=== PATIENT | female | born 1960 | race Two or more races ===

== ENCOUNTER → 2019-12-16 15:57 | Outpatient (BNVA) | payer MEDICAID, SELFPAY | PROVIDERS: PCP Internal Medicine; Referring Provider Internal Medicine; Visit Provider Internal Medicine | DX: J44.9 Chronic obstructive pulmonary disease, unspecified (principal); Z86.69 Personal history of other diseases of the nervous system and sense organs | CPT/HCPCS: 99213 ==

== ENCOUNTER 2019-12-22 | Outpatient (REF) | payer MEDICAID, SELFPAY ==
[2019-12-08 12:32] VITALS: BP 113/75; PULSE 86; RESP 20; O2SAT 97; BMI 28.1
--- NOTE | 2019-12-08 12:43 | P.CONAN_ITS ---
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 SOY (obstructive sleep apnea) SOY (obstructive sleep apnea) Osteoarthritis Rheumatoid arthritis Sicca syndrome Sjogrens syndrome Sleep apnea Surgical History Surgical History History of bladder suspension procedure History of esophagogastroduodenoscopy (EGD) History of laryngoscopy History of repair of left rotator cuff Hx of colonoscopy Hx of dilation and curettage Hx of hemorrhoidectomy Hx of tubal ligation Social History Social History Smoking Status: Never smoker Second Hand Smoke Exposure: No Narrative Narrative: no recent illness activity limited to pain, no CP/SOB at rest Meds Allergies Allergy/AdvReac Type Severity Reaction Status Date / Time codeine [Codeine] Allergy Mild BURNING IN Verified 12/16/19 16:06 CHEST, chest pain sulfamethoxazole Allergy Mild ITCH,RASH Verified 12/16/19 16:06 [From Bactrim] Home Medications Medication Instructions Recorded Confirmed Type albuterol sulfate 2.5 mg INHALATION QID PRN 12/08/19 12/28/19 History amitriptyline 10 mg PO BEDTIME 12/08/19 12/28/19 History aspirin [Aspir-81] 81 mg PO DAILY 12/08/19 12/28/19 History calcium 600 mg PO 12/08/19 12/28/19 History cetirizine 10 mg PO DAILY 12/08/19 12/28/19 History cholecalciferol (vitamin D3) 50 mcg PO DAILY 12/08/19 12/28/19 History clonidine HCl 0.1 mg PO BID 12/08/19 12/28/19 History dexamethasone 1 mg PO DAILY 12/08/19 12/28/19 History diltiazem HCl 360 mg PO DAILY 12/08/19 12/28/19 History diphenhydramine HCl [Banophen] 25 mg PO BEDTIME PRN 12/08/19 12/28/19 History docusate sodium [DOK] 100 mg PO DAILY 12/08/19 12/28/19 History duloxetine 20 mg PO BID 12/08/19 12/28/19 History fluticasone propionate [Flovent 1 puff INHALATION BID 12/08/19 12/28/19 History HFA] folic acid 1 mg PO DAILY 12/08/19 12/28/19 History furosemide 20 mg PO DAILY 12/08/19 12/28/19 History lisinopril 20 mg PO DAILY 12/08/19 12/28/19 History melatonin 5 mg PO BEDTIME PRN 12/08/19 12/28/19 History methotrexate sodium [Methotrexate 25 mg PO QWEEK 12/08/19 12/28/19 History (Anti-Rheumatic)] saliva substitute combo no.9 15 ml MUCOUS MEMBRANE 5XD PRN 12/08/19 12/28/19 History [Biotene Dry Mouth Oral Rinse] sennosides [senna] 8.6 mg PO BID 12/08/19 12/28/19 History Exam Exam Date and Time: December 08, 2019 1243 Height,Weight and Vital Signs: Height 5 ft 1 in Weight 67.585 kg Last Vital Signs Pulse 86 12/08/19 12:32 Resp 20 12/08/19 12:32 BP 113/75 12/08/19 12:32 Pulse Ox 97 12/08/19 12:32 Pertinent Lab Results Pertinent Lab Results: EKG 12/01/19: SR@74, horizontal axis MIBI 04/2018: likely nml perfusion, gated EF 70%, no trans ischemic dilation CBC/CMP/PT/INR 12/01/19: WNL Airway Mallampati Class: I TM Dist: >3cm Neck ROM: Full Loose/Missing/Broken Teeth: No Heart: rrr Lungs: dim upper lobes, lower ctab Assessment and Plan Assessment Anesthesia Assessment: Anesthesia Plan Discussed and PAT Visit (Pt declined reception interviewer. Verbalized understanding. )
[2019-12-08 15:11] LABS: Estimated Average Glucose 117 mg/dL; Hemoglobin A1c % 5.7 %
[2019-12-08 15:20] LABS: MRSA Nasal PCR NEGATIVE (Negative); SA Nasal PCR NEGATIVE (Negative)
== END 2019-12-22 00:01 ==
LOC: HO.LAB
PROVIDERS: Nurse Practitioner; PCP Internal Medicine; Visit Provider Orthopaedic Surgery
DX: M17.11 Unilateral primary osteoarthritis, right knee (principal)
CPT/HCPCS: 83036; 87640; 87641

== ENCOUNTER → 2019-12-28 12:05 | Outpatient (BNVA) | payer MEDICAID, SELFPAY | PROVIDERS: PCP Internal Medicine; Visit Provider Internal Medicine Endocrinology, Diabetes & Metabolism | DX: E11.9 Type 2 diabetes mellitus without complications (principal); I10 Essential (primary) hypertension; E78.00 Pure hypercholesterolemia, unspecified | CPT/HCPCS: 82947; 99214 ==

== ENCOUNTER 2020-01-20 16:40 | Emergency (ER) | payer MEDICAID, SELFPAY ==
[2020-01-20 16:48] VITALS: BP 147/86; PULSE 74; RESP 16; TEMP 36.4; O2SAT 99; BMI 27.8
--- NOTE | 2020-01-20 19:13 | ED.EYEPROB ---
HPI - Eye Problem General Chief complaint: Eye Problems Stated complaint: eye swelling Time Seen by Provider: 01/20/20 19:13 Source: patient Mode of arrival: ambulatory Limitations: no limitations History of Present Illness HPI Narrative: left upper lid swelling and redness for past 2 days Onset description: gradual Location: left eye Eye Symptoms: redness Severity: mild Treatments Prior to Arrival: none Related Data Patient tetanus UTD: Yes Home Medications Medication Instructions Recorded Confirmed albuterol sulfate 2.5 mg INHALATION QID PRN 12/08/19 12/28/19 amitriptyline 10 mg PO BEDTIME 12/08/19 12/28/19 aspirin [Aspir-81] 81 mg PO DAILY 12/08/19 12/28/19 calcium 600 mg PO 12/08/19 12/28/19 cetirizine 10 mg PO DAILY 12/08/19 12/28/19 cholecalciferol (vitamin D3) 50 mcg PO DAILY 12/08/19 12/28/19 clonidine HCl 0.1 mg PO BID 12/08/19 12/28/19 dexamethasone 1 mg PO DAILY 12/08/19 12/28/19 diltiazem HCl 360 mg PO DAILY 12/08/19 12/28/19 diphenhydramine HCl [Banophen] 25 mg PO BEDTIME PRN 12/08/19 12/28/19 docusate sodium [DOK] 100 mg PO DAILY 12/08/19 12/28/19 duloxetine 20 mg PO BID 12/08/19 12/28/19 fluticasone propionate [Flovent 1 puff INHALATION BID 12/08/19 12/28/19 HFA] folic acid 1 mg PO DAILY 12/08/19 12/28/19 furosemide 20 mg PO DAILY 12/08/19 12/28/19 lisinopril 20 mg PO DAILY 12/08/19 12/28/19 melatonin 5 mg PO BEDTIME PRN 12/08/19 12/28/19 methotrexate sodium [Methotrexate 25 mg PO QWEEK 12/08/19 12/28/19 (Anti-Rheumatic)] saliva substitute combo no.9 15 ml MUCOUS MEMBRANE 5XD PRN 12/08/19 12/28/19 [Biotene Dry Mouth Oral Rinse] sennosides [senna] 8.6 mg PO BID 12/08/19 12/28/19 Previous Rx's Medication Instructions Recorded atorvastatin 10 mg tablet 10 mg PO BEDTIME 90 Days #90 tab 12/28/19 dulaglutide 0.75 mg/0.5 mL 0.75 mg SUBCUT QWEEK 90 Days #6.5 12/28/19 subcutaneous pen injector ml doxycycline monohydrate 100 mg PO BID 7 Days #14 cap 01/20/20 erythromycin 1 applic OPHTHALMIC-LEFT TID #3.5 g 01/20/20 Allergies Allergy/AdvReac Type Severity Reaction Status Date / Time codeine [Codeine] Allergy Mild BURNING IN Verified 12/16/19 16:06 CHEST, chest pain sulfamethoxazole Allergy Mild ITCH,RASH Verified 12/16/19 16:06 [From Bactrim] Review of Systems Review of Systems: Constitutional: No Weight loss, No Fever, No Chills, No Night Sweats, No Fatigue, No Malaise ENT/Mouth: No Hearing loss, No Ear Pain, No Nasal Congestion, No Sinus Pain, No Hoarseness, No sore throat, No Rhinorrhea, No Swallowing Difficulty Eyes: No Eye Pain, + left swelling, No Redness, No Foreign Body, No Discharge, No Vision Changes Cardiovascular: No Chest Pain, No SOB, No Dyspnea on Exertion Respiratory: No Cough, No Sputum, No Wheezing Gastrointestinal: No Nausea, No Vomiting, No Diarrhea Genitourinary: no irregular bleeding, No Dysuria, No Urinary Frequency, No Hematuria Musculoskeletal: No joint pain, No Myalgias, No Joint Swelling Skin: No Skin Lesions, No rash Neuro: No Weakness, No Numbness, No Paresthesias Psych: No Anxiety/Panic, No Depression Heme/Lymph: No Bruising, No Bleeding,No Lymphadenopathy Endocrine: No Polyuria, No Polydipsia, No Temperature Intolerance Yes all other systems are reviewed and are negative [facility] Past Medical History Attestation statement: The following information was validated with the patient. 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 SOY (obstructive sleep apnea) SOY (obstructive sleep apnea) Osteoarthritis Rheumatoid arthritis Sicca syndrome Sjogrens syndrome Sleep apnea Surgical History History of bladder suspension procedure History of esophagogastroduodenoscopy (EGD) History of laryngoscopy History of repair of left rotator cuff Hx of colonoscopy Hx of dilation and curettage Hx of hemorrhoidectomy Hx of tubal ligation Social History Social History Alcohol intake: never Smoking Status: Never smoker Smoked in Last 30 Days: No Second Hand Smoke Exposure: No Use of substances other than those prescribed or required for medical reasons: No Advance Directives: No Advance Directives Information Provided: Yes Physical Exam Vital Signs: Vital Signs: Last Vital Signs Temp 97.6 F 01/20/20 16:48 Pulse 74 01/20/20 16:48 Resp 16 01/20/20 16:48 BP 147/86 H 01/20/20 16:48 Pulse Ox 99 01/20/20 16:48 Body Mass Index 27.8 Reviewed Const: General: cooperative, healthy appearing, comfortable, no acute distress, well developed, alert and awake HENMT: Head: Yes normal to inspection Ears: hearing grossly normal bilaterally Eyes: General: appearance normal, both eyes and all related structures Visual Plaza: normal visual plaza by confrontation Eyelids: Yes eyelid abnormality ( left upper lid with small external stye with erythema over the lid line) Conjunctivae: conjunctivae normal Sclerae: sclerae normal Corneas: corneas normal Resp: Effort & Inspection: normal respiratory effort, no audible wheezes, no cough and no respiratory distress Cardio: Palpation: normal PMI Rate: regular rate Neuro: General: normal sensation to monofilament Extrem: General: No cyanosis Psych: Appearance: grossly normal and well kempt Discharge Plan Discharge Clinical Impression: External hordeolum Qualifiers: Laterality: left Eyelid: upper Qualified Code(s): H00.014 - Hordeolum externum left upper eyelid Patient Disposition: Home, Self-Care Additional Instructions: warm compresses Take medication prescribed Return if any concerns or worsening symptoms otherwise follow up with primary care doctor in 3-7 days for recheck Thank you Prescriptions: New doxycycline monohydrate 100 mg capsule 100 mg PO BID 7 Days Qty: 14 RF: 0 erythromycin 5 mg/gram (0.5 %) ointment 1 applic ophthalmic-Left TID Qty: 3.5 RF: 1 No Action calcium 600 mg Capsule 600 mg PO RF: 0 albuterol sulfate 2.5 mg /3 mL (0.083 %) Solution For Nebulization 2.5 mg INHALATION QID PRN (Reason: Wheezing) RF: 0 diltiazem HCl 360 mg Capsule,Extended Release 24 Hr 360 mg PO DAILY RF: 0 aspirin [Aspir-81] 81 mg Tablet,Delayed Release (Dr/Ec) 81 mg PO DAILY RF: 0 amitriptyline 10 mg Tablet 10 mg PO BEDTIME RF: 0 Flovent HFA 110 mcg/actuation Hfa Aerosol Inhaler 1 puff INHALATION BID RF: 0 cholecalciferol (vitamin D3) 50 mcg (2,000 unit) Capsule 50 mcg PO DAILY RF: 0 Biotene Dry Mouth Oral Rinse Mouthwash 15 ml MUCOUS MEMBRANE 5XD PRN (Reason: Dry Mouth) RF: 0 clonidine HCl 0.1 mg Tablet 0.1 mg PO BID RF: 0 cetirizine 10 mg Tablet 10 mg PO DAILY RF: 0 lisinopril 20 mg Tablet 20 mg PO DAILY RF: 0 folic acid 1 mg Tablet 1 mg PO DAILY RF: 0 methotrexate sodium [Methotrexate (Anti-Rheumatic)] 2.5 mg Tablet 25 mg PO QWEEK RF: 0 dexamethasone 1 mg Tablet 1 mg PO DAILY RF: 0 sennosides [senna] 8.6 mg Tablet 8.6 mg PO BID RF: 0 diphenhydramine HCl [Banophen] 25 mg Tablet 25 mg PO BEDTIME PRN (Reason: Sleep) RF: 0 docusate sodium [DOK] 100 mg Capsule 100 mg PO DAILY RF: 0 furosemide 20 mg Tablet 20 mg PO DAILY RF: 0 duloxetine 20 mg Capsule,Delayed Release(Dr/Ec) 20 mg PO BID RF: 0 melatonin 5 mg Tablet 5 mg PO BEDTIME PRN (Reason: Sleep) RF: 0 atorvastatin 10 mg tablet 10 mg PO BEDTIME 90 Days Qty: 90 RF: 1 Trulicity 0.75 mg/0.5 mL pen injector 0.75 mg SUBCUT QWEEK 90 Days Qty: 6.5 RF: 1 Referrals: [facility] [Primary Care Provider] - 5 days
== END 2020-01-20 20:00 | disposition home or self-care (01) ==
PROVIDERS: Emergency Provider Emergency Medicine
DX: H00.014 Hordeolum externum left upper eyelid (principal); Z79.899 Other long term (current) drug therapy
CPT/HCPCS: 99283; 99284

== ENCOUNTER → 2020-02-11 12:31 | Outpatient (BNVA) | payer MEDICAID, SELFPAY | PROVIDERS: PCP Internal Medicine; Referring Provider Internal Medicine; Visit Provider Student in an Organized Health Care Education/Training Program | DX: Z76.89 Persons encountering health services in other specified circumstances (principal) ==

== ENCOUNTER 2020-03-08 13:14 | Outpatient (REF) | payer MEDICAID, SELFPAY ==
[2020-03-08 14:15] LABS: MANUAL DIFF FLAG NO
[2020-03-08 14:20] LABS: Basophils Percent Auto 0.4 % (0-2); Eosinophils Absolute Auto 0.2 X10*3/uL (0.0-0.4); Eosinophils Percent Auto 3.2 % (0-4); Hematocrit 35.1 % (37-47); Hemoglobin 11.8 g/dl (12.0-16.0); Imm Gran Abs Auto 0.02 X10*3/uL (0.00-0.03); Imm Gran Pct Auto 0.3 % (0.0-0.4); Lymphocytes Absolute Auto 2.2 X10*3/uL (1.2-4.9); Lymphocytes Percent Auto 29.1 % (20-40); Mean Corpuscular HGB Conc 33.6 g/dl (31.0-35.0); Mean Corpuscular Hemoglobin 29.6 pg (27.0-33.0); Mean Corpuscular Volume 88.2 fL (80-98); Mean Platelet Volume 9.7 fL (9.4-12.3); Monocytes Absolute Auto 0.9 X10*3/uL (0.1-1.2); Monocytes Percent Auto 12.5 % (2-11); Neutrophils Absolute Auto 4.1 X10*3/uL (2.0-8.3); Neutrophils Percent Auto 54.5 % (45-73); Platelet Count 316 X10*3/uL (160-400); Red Blood Count 3.98 X10*6/uL (4.20-5.50); White Blood Count 7.4 X10*3/uL (4.8-10.8)
[2020-03-08 14:23] LABS: Glucose Urine UA NEG (NEG); Leukocyte Esterase Urine TRACE (NEG); Nitrite Urine NEG (NEG); PH 5.5 (5.0-8.0); Specific Gravity - Urine >= 1.030 (1.005-1.025); Urine Blood NEG (NEG); Urine Ketones NEG (NEG); Urine Protein NEG (NEG-TRACE)
[2020-03-08 14:25] LABS: Appearance Urine CLEAR; Color Urine YELLOW
[2020-03-08 14:38] LABS: Mucus Urine 1+ /LPF; RBC Urine 0-2 /HPF (0); Squamous Epithelial Cell Urine 1+ /LPF
[2020-03-08 14:49] LABS: Alanine Aminotransferase 13 U/L (0-31); Albumin Level 4.2 g/dL (3.5-5.0); Alkaline Phosphatase 127 U/L (39-117); Anion Gap 17 (12-20); Aspartate Amino Transferase 19 U/L (5-31); Bilirubin Total 0.3 mg/dL (0.0-1.0); Blood Urea Nitrogen 22 mg/dL (9-16); Calcium 9.7 mg/dL (8.4-10.2); Carbon Dioxide 25 mmol/L (22-29); Chloride 103 mmol/L (96-108); Cholesterol 137 mg/dL; Creatinine Urine 122.61 mg/dL; Estimated Glomerular Filt Rate > 60; Glucose Fasting 103 mg/dL (60-99); HDL Cholesterol 36 mg/dL; LDL Cholesterol Calculated 61 mg/dl; Microalbum/Creatinine Ratio Ur 7.3 ug/mg cr; Potassium 3.8 mmol/l (3.3-5.1); Sodium 141 mmol/L (135-145); Total Protein 7.7 g/dL (6.5-8.0); Triglycerides 203 mg/dL
[2020-03-08 14:50] LABS: Alanine Aminotransferase 13 U/L (0-31); Alkaline Phosphatase 118 U/L (39-117); Anion Gap 17 (12-20); Aspartate Amino Transferase 18 U/L (5-31); Bilirubin Total 0.3 mg/dL (0.0-1.0); Blood Urea Nitrogen 22 mg/dL (9-16); C Reactive Protein 0.54 mg/dL (< or = 0.50); Calcium 9.6 mg/dL (8.4-10.2); Carbon Dioxide 25 mmol/L (22-29); Chloride 103 mmol/L (96-108); Estimated Glomerular Filt Rate > 60; Glucose Random 101 mg/dL (60-115); Potassium 3.9 mmol/l (3.3-5.1); Sodium 141 mmol/L (135-145); Total Protein 7.3 g/dL (6.5-8.0)
[2020-03-08 15:14] LABS: Vitamin B12 298 pg/mL (200-900)
[2020-03-08 15:16] LABS: Erythrocyte Sedimentation Rate 42 MM/HR (0-20)
[2020-03-09 11:07] LABS: LDL Cholesterol Direct 64 mg/dL (<100)
[2020-03-09 13:32] LABS: Complement C3 67 mg/dL (83-193)
[2020-03-10 12:58] LABS: Anti DNA DS Antibody <1 IU/mL
[2020-03-15 21:22] LABS: Fructosamine 234 umol/L (205-285)
== END 2020-03-08 13:15 | disposition home or self-care (01) ==
LOC: HO.LAB 13:14
PROVIDERS: Internal Medicine Endocrinology, Diabetes & Metabolism; PCP Internal Medicine; Visit Provider Student in an Organized Health Care Education/Training Program
DX: M05.9 Rheumatoid arthritis with rheumatoid factor, unspecified (principal); E11.9 Type 2 diabetes mellitus without complications
CPT/HCPCS: 36415; 80053; 80061; 81001; 82043; 82607; 82985; 83721; 85025; 85652; 86140; 86160; 86225

== ENCOUNTER 2020-03-23 10:27 | Outpatient (REF) | payer MEDICAID, SELFPAY ==
[2020-03-23 11:40] LABS: Glucose Urine UA 100 MG/DL (NEG); Leukocyte Esterase Urine NEG (NEG); Nitrite Urine NEG (NEG); Specific Gravity - Urine >= 1.030 (1.005-1.025); Urine Blood NEG (NEG); Urine Ketones NEG (NEG); Urine Protein NEG (NEG-TRACE)
[2020-03-23 11:42] LABS: Appearance Urine CLEAR; Color Urine YELLOW
[2020-03-23 11:59] LABS: Mucus Urine 2+ /LPF; Squamous Epithelial Cell Urine 1+ /LPF
[2020-03-23 12:17] LABS: Alanine Aminotransferase 10 U/L (0-31); Albumin Level 4.2 g/dL (3.5-5.0); Alkaline Phosphatase 132 U/L (39-117); Anion Gap 12 (12-20); Aspartate Amino Transferase 13 U/L (5-31); Bilirubin Total 0.3 mg/dL (0.0-1.0); Blood Urea Nitrogen 17 mg/dL (9-16); Calcium 9.4 mg/dL (8.4-10.2); Carbon Dioxide 28 mmol/L (22-29); Chloride 106 mmol/L (96-108); Cholesterol 141 mg/dL; Estimated Glomerular Filt Rate > 60; Glucose Fasting 82 mg/dL (60-99); HDL Cholesterol 53 mg/dL; LDL Cholesterol Calculated 64 mg/dl; Potassium 3.5 mmol/l (3.3-5.1); Sodium 142 mmol/L (135-145); Total Protein 7.5 g/dL (6.5-8.0); Triglycerides 122 mg/dL
[2020-03-23 12:17] LABS: Creatinine Urine 150.87 mg/dL; Microalbum/Creatinine Ratio Ur 11.2 ug/mg cr
[2020-03-23 12:37] LABS: Vitamin B12 314 pg/mL (200-900)
[2020-03-24 09:05] LABS: HBc Num1 0.06 S/CO (0.00-0.79); HBsAGNum1 0.21 S/CO (0.00-0.99); Hepatitis A Antibody IgM 0.77 Index (0-0.79); Hepatitis B Core Antibody Nonreactive (Nonreactive); Hepatitis B Surface Antigen Negative (Negative); ~HepC Num1 0.11 S/CO (0.00-0.79); ~Hepatitis A Antibody IgM Nonreactive (Nonreactive); ~Hepatitis B Surface Antibody NONREACTIVE (Nonreactive); ~Hepatitis C Antibody Nonreactive (Nonreactive)
[2020-03-24 11:02] LABS: LDL Cholesterol Direct 69 mg/dL (<100)
[2020-03-27 21:32] LABS: TS Negative Control Passed; TS Panel A 1; TS Panel B 1; TS Positive Control Passed; TSpotTB Negative (SeeBelow)
[2020-03-29 22:12] LABS: Fructosamine 254 umol/L (205-285)
== END 2020-03-23 10:28 | disposition home or self-care (01) ==
LOC: HO.LAB 10:27
PROVIDERS: Absent Provider Student in an Organized Health Care Education/Training Program; PCP Internal Medicine; Visit Provider Internal Medicine Endocrinology, Diabetes & Metabolism
DX: M05.9 Rheumatoid arthritis with rheumatoid factor, unspecified (principal); E11.9 Type 2 diabetes mellitus without complications
CPT/HCPCS: 36415; 80053; 80061; 81001; 82043; 82607; 82985; 83721; 86481; 86704; 86706; 86709; 86803; 87340

== ENCOUNTER → 2020-03-28 12:15 | Outpatient (BNVA) | payer MEDICAID, SELFPAY | PROVIDERS: PCP Internal Medicine; Visit Provider Internal Medicine Endocrinology, Diabetes & Metabolism | DX: E11.9 Type 2 diabetes mellitus without complications (principal); I10 Essential (primary) hypertension; E78.00 Pure hypercholesterolemia, unspecified | CPT/HCPCS: 82947; 99212 ==

== ENCOUNTER → 2020-04-11 11:32 | Outpatient (BNVA) | payer MEDICAID, SELFPAY | PROVIDERS: PCP Internal Medicine; Visit Provider Internal Medicine Endocrinology, Diabetes & Metabolism | DX: E11.9 Type 2 diabetes mellitus without complications (principal); I10 Essential (primary) hypertension; E78.00 Pure hypercholesterolemia, unspecified | CPT/HCPCS: 82947; 99212 ==

== ENCOUNTER 2020-05-12 12:16 | Outpatient (REF) | payer MEDICAID, SELFPAY ==
--- NOTE | ~2020-05-12 | XR_ITS ---
EXAMINATION: XR ANKLE, RIGHT CLINICAL INFORMATION: Ankle sprain COMPARISON: None TECHNIQUE: AP, lateral, and mortise views of the right ankle. FINDINGS: There is no fracture or dislocation. The ankle mortise is congruent. No ankle joint effusion. There is lateral soft tissue swelling. Small heel spurs noted. XR/XR ankle RT 2V IMPRESSION: Lateral soft tissue swelling. No acute fracture or malalignment.
[2020-05-12 13:36] LABS: MANUAL DIFF FLAG NO
[2020-05-12 13:41] LABS: Basophils Percent Auto 0.4 % (0-2); Eosinophils Absolute Auto 0.3 X10*3/uL (0.0-0.4); Eosinophils Percent Auto 4.1 % (0-4); Hematocrit 37.5 % (37-47); Hemoglobin 12.7 g/dl (12.0-16.0); Imm Gran Abs Auto 0.01 X10*3/uL (0.00-0.03); Imm Gran Pct Auto 0.1 % (0.0-0.4); Lymphocytes Absolute Auto 2.8 X10*3/uL (1.2-4.9); Mean Corpuscular HGB Conc 33.9 g/dl (31.0-35.0); Mean Corpuscular Hemoglobin 29.3 pg (27.0-33.0); Mean Corpuscular Volume 86.6 fL (80-98); Mean Platelet Volume 9.7 fL (9.4-12.3); Monocytes Absolute Auto 0.8 X10*3/uL (0.1-1.2); Monocytes Percent Auto 11.3 % (2-11); Neutrophils Absolute Auto 3.4 X10*3/uL (2.0-8.3); Neutrophils Percent Auto 46.1 % (45-73); Platelet Count 283 X10*3/uL (160-400); Red Blood Count 4.33 X10*6/uL (4.20-5.50); Red Cell Distribution Width 12.6 % (11.0-16.0); White Blood Count 7.4 X10*3/uL (4.8-10.8)
[2020-05-12 14:05] LABS: Alanine Aminotransferase 9 U/L (0-31); Albumin Level 4.2 g/dL (3.5-5.0); Alkaline Phosphatase 150 U/L (39-117); Anion Gap 13 (12-20); Aspartate Amino Transferase 16 U/L (5-31); Bilirubin Total 0.3 mg/dL (0.0-1.0); Blood Urea Nitrogen 18 mg/dL (9-16); C Reactive Protein 0.28 mg/dL (< or = 0.50); Calcium 10.2 mg/dL (8.4-10.2); Carbon Dioxide 28 mmol/L (22-29); Chloride 104 mmol/L (96-108); Estimated Glomerular Filt Rate > 60; Glucose Random 125 mg/dL (60-115); Potassium 3.7 mmol/L (3.3-5.1); Sodium 141 mmol/L (135-145); Total Protein 7.3 g/dL (6.5-8.0)
[2020-05-12 14:36] LABS: Erythrocyte Sedimentation Rate 29 MM/HR (0-20)
== END 2020-05-12 12:17 | disposition home or self-care (01) ==
LOC: HO.LAB 12:16
PROVIDERS: PCP Radiology Diagnostic Radiology; Visit Provider Student in an Organized Health Care Education/Training Program
DX: S93.401A Sprain of unspecified ligament of right ankle, initial encounter (principal); M05.9 Rheumatoid arthritis with rheumatoid factor, unspecified; M35.00 Sjogren syndrome, unspecified; M65.332 Trigger finger, left middle finger; M65.342 Trigger finger, left ring finger; Z79.899 Other long term (current) drug therapy
CPT/HCPCS: 20550; 36415; 73600; 80053; 85025; 85652; 86140; 99212

== ENCOUNTER 2020-07-21 14:13 | Outpatient (REF) | payer MEDICAID, SELFPAY ==
--- NOTE | ~2020-07-21 | MM_ITS ---
EXAMINATION: MM SCREENING DIGITAL BREAST TOMOSYNTHESIS, BILATERAL CLINICAL INFORMATION: Screening. Asymptomatic. The lifetime risk of breast cancer based on the Tyrer-Cuzick Model is 5%. COMPARISON: Mammography: 03/24/2019, 09/09/2018, 03/17/2018, 02/08/2017 TECHNIQUE: Digital breast tomosynthesis is performed in both the craniocaudal and mediolateral oblique views along with computer-aided detection (CAD). Synthesized 2D images are generated from the tomosynthesis. FINDINGS: There are scattered areas of fibroglandular density (ACR BI-RADS breast composition Category b). There are no significant masses, abnormal calcifications, or other abnormalities. Parenchymal pattern is similar to prior exams. MM/MM tomosynthesis screening BI IMPRESSION: No mammographic evidence of malignancy. ASSESSMENT: BI-RADS 1: Negative RECOMMENDATION: Routine annual mammography screening. This patient's information was entered into a reminder system with a target due date for their next mammogram.
== END 2020-07-21 14:14 | disposition home or self-care (01) ==
LOC: HO.MAMMO 14:13
PROVIDERS: Visit Provider Internal Medicine
DX: Z12.31 Encounter for screening mammogram for malignant neoplasm of breast (principal)
CPT/HCPCS: 77063; 77067

== ENCOUNTER → 2020-08-11 12:22 | Outpatient (BNVA) | payer MEDICAID, SELFPAY | PROVIDERS: PCP Internal Medicine; Visit Provider Student in an Organized Health Care Education/Training Program | DX: M05.9 Rheumatoid arthritis with rheumatoid factor, unspecified (principal); M35.00 Sjogren syndrome, unspecified; Z79.899 Other long term (current) drug therapy | CPT/HCPCS: 99212 ==

== ENCOUNTER 2020-08-24 13:31 | Outpatient (REF) | payer MEDICAID, SELFPAY ==
[2020-08-24 15:05] LABS: MANUAL DIFF FLAG NO
[2020-08-24 15:09] LABS: Basophils Percent Auto 0.3 % (0-2); Eosinophils Absolute Auto 0.2 X10*3/uL (0.0-0.4); Eosinophils Percent Auto 3.3 % (0-4); Hematocrit 36.2 % (37-47); Hemoglobin 12.6 g/dl (12.0-16.0); Imm Gran Abs Auto 0.02 X10*3/uL (0.00-0.03); Imm Gran Pct Auto 0.3 % (0.0-0.4); Lymphocytes Absolute Auto 2.3 X10*3/uL (1.2-4.9); Lymphocytes Percent Auto 31.3 % (20-40); Mean Corpuscular HGB Conc 34.8 g/dl (31.0-35.0); Mean Corpuscular Hemoglobin 30.8 pg (27.0-33.0); Mean Corpuscular Volume 88.5 fL (80-98); Mean Platelet Volume 9.6 fL (9.4-12.3); Monocytes Absolute Auto 0.8 X10*3/uL (0.1-1.2); Monocytes Percent Auto 10.4 % (2-11); Neutrophils Absolute Auto 3.9 X10*3/uL (2.0-8.3); Neutrophils Percent Auto 54.4 % (45-73); Platelet Count 302 X10*3/uL (160-400); Red Blood Count 4.09 X10*6/uL (4.20-5.50); Red Cell Distribution Width 14.3 % (11.0-16.0); White Blood Count 7.2 X10*3/uL (4.8-10.8)
[2020-08-24 15:39] LABS: Alanine Aminotransferase 11 U/L (0-31); Albumin Level 3.9 g/dL (3.5-5.0); Alkaline Phosphatase 178 U/L (39-117); Anion Gap 12 (12-20); Aspartate Amino Transferase 14 U/L (5-31); Bilirubin Total 0.4 mg/dL (0.0-1.0); Blood Urea Nitrogen 19 mg/dL (9-16); C Reactive Protein 0.43 mg/dL (< or = 0.50); Calcium 9.6 mg/dL (8.4-10.2); Carbon Dioxide 28 mmol/L (22-29); Chloride 103 mmol/L (96-108); Estimated Glomerular Filt Rate > 60; Glucose Random 207 mg/dL (60-115); Sodium 139 mmol/L (135-145)
[2020-08-24 16:01] LABS: Erythrocyte Sedimentation Rate 28 MM/HR (0-20)
== END 2020-08-24 13:32 | disposition home or self-care (01) ==
LOC: HO.LAB 13:31
PROVIDERS: Absent Provider Student in an Organized Health Care Education/Training Program; PCP Internal Medicine; Visit Provider Internal Medicine Endocrinology, Diabetes & Metabolism
DX: M05.9 Rheumatoid arthritis with rheumatoid factor, unspecified (principal); E11.65 Type 2 diabetes mellitus with hyperglycemia; E78.00 Pure hypercholesterolemia, unspecified; I10 Essential (primary) hypertension; Z79.899 Other long term (current) drug therapy; Z71.3 Dietary counseling and surveillance
CPT/HCPCS: 36415; 80053; 82947; 85025; 85652; 86140; 99212

== ENCOUNTER 2020-09-19 10:31 | Outpatient (REF) | payer MEDICAID, SELFPAY ==
--- NOTE | ~2020-09-19 | XR_ITS ---
EXAMINATION: XR ANKLE, RIGHT CLINICAL INFORMATION: Right ankle pain. COMPARISON: Right ankle radiographs dated 05/12/2020. TECHNIQUE: AP, lateral, and mortise views of the right ankle. FINDINGS: No acute fracture or dislocation. The ankle mortise is maintained. No joint space narrowing or marginal osteophytes. No osseous erosion. Small plantar and dorsal calcaneal enthesophytes. Lateral soft tissue swelling. XR/XR ankle RT 2V IMPRESSION: Lateral soft tissue swelling without acute osseous abnormality.
== END 2020-09-19 10:32 | disposition home or self-care (01) ==
LOC: HO.XRAY 10:31
PROVIDERS: Absent Provider Internal Medicine; PCP Internal Medicine; Visit Provider Registered Nurse
DX: M25.471 Effusion, right ankle (principal); M25.571 Pain in right ankle and joints of right foot
CPT/HCPCS: 73600

== ENCOUNTER 2020-10-18 15:33 | Outpatient (REF) | payer MEDICAID, SELFPAY ==
--- NOTE | ~2020-10-18 | MR_ITS ---
EXAMINATION: MR ANKLE WITHOUT CONTRAST, RIGHT CLINICAL INFORMATION: Effusion. Swelling, lateral pain. Twisting injury. COMPARISON: None TECHNIQUE: Multisequence MR imaging of the right ankle was performed without contrast on a high-field strength scanner. FINDINGS: BONE AND ARTICULAR CARTILAGE: No abnormal marrow signal. No stress reaction or fracture. Intact articular cartilage. No talar osteochondral lesion. ACHILLES TENDON: Normal. OTHER TENDONS: There is linear fluid signal associated with the peroneal brevis tendon as well as diffuse thickening and abnormal signal at the level of the lateral malleolus, consistent with irregular partial tearing. On the lateral aspect of the tendon at this level there is a somewhat ovoid, heterogeneous focus measuring 1.9 x 1.4 x 1.1 cm. Findings likely represent irregular near-complete tearing with an associated hematoma given the history of a twisting injury. No retraction of the tendon fibers. Mild adjacent soft tissue edema. The remaining visualized flexor and extensor tendons are intact. LIGAMENTS: Intact. JOINT FLUID AND SOFT TISSUES: Small tibiotalar joint effusion. PLANTAR FASCIA: Small plantar calcaneal spur. Intact plantar fascia. SINUS TARSI AND TARSAL TUNNEL: Normal. MR/MR ankle RT wo con IMPRESSION: 1. Prominent irregular partial tearing of the peroneal brevis tendon at the level of the lateral malleolus. Ovoid, heterogeneous focus associated with the tendon sheath measuring up to 1.9 cm and likely representing a combination of irregular tearing and hematoma given the history of a twisting injury. Mild adjacent soft tissue edema. 2. No acute osseous abnormality. 3. Small tibiotalar joint effusion.
== END 2020-10-18 15:34 | disposition home or self-care (01) ==
LOC: HO.MRI 15:33
PROVIDERS: PCP Internal Medicine; Visit Provider Internal Medicine
DX: M25.571 Pain in right ankle and joints of right foot (principal); M25.471 Effusion, right ankle
CPT/HCPCS: 73721

== ENCOUNTER → 2020-11-29 10:19 | Outpatient (BNVA) | payer MEDICAID, SELFPAY | PROVIDERS: Visit Provider Physician Assistant | DX: M76.71 Peroneal tendinitis, right leg (principal) | CPT/HCPCS: 99212 ==

== ENCOUNTER 2020-12-21 13:26 | Outpatient (REF) | payer MEDICAID, SELFPAY ==
[2020-12-21 15:27] LABS: Alanine Aminotransferase 12 U/L (0-31); Albumin Level 4.1 g/dL (3.5-5.0); Alkaline Phosphatase 150 U/L (39-117); Anion Gap 13 (12-20); Aspartate Amino Transferase 18 U/L (5-31); Bilirubin Total 0.2 mg/dL (0.0-1.0); Blood Urea Nitrogen 24 mg/dL (9-16); Calcium 9.9 mg/dL (8.4-10.2); Carbon Dioxide 27 mmol/L (22-29); Chloride 105 mmol/L (96-108); Cholesterol 141 mg/dL; Estimated Glomerular Filt Rate 35; Glucose Random 110 mg/dL (60-115); HDL Cholesterol 36 mg/dL; LDL Cholesterol Calculated 48 mg/dl; Potassium 3.8 mmol/L (3.3-5.1); Sodium 141 mmol/L (135-145); Total Protein 7.4 g/dL (6.5-8.0); Triglycerides 288 mg/dL
[2020-12-21 15:47] LABS: Vitamin D 25-OH Total 43.7 ng/mL (>30)
[2020-12-21 19:11] LABS: Creatinine Urine 208.48 mg/dL; Microalbum/Creatinine Ratio Ur 8.1 ug/mg cr
[2020-12-22 05:51] LABS: LDL Cholesterol Direct 66 mg/dL (<100)
== END 2020-12-21 13:27 | disposition home or self-care (01) ==
LOC: HO.LAB 13:26
PROVIDERS: PCP Internal Medicine; Visit Provider Nurse Practitioner Gerontology
DX: E11.9 Type 2 diabetes mellitus without complications (principal); E55.9 Vitamin D deficiency, unspecified; E78.00 Pure hypercholesterolemia, unspecified; I10 Essential (primary) hypertension; Z98.890 Other specified postprocedural states; Z79.84 Long term (current) use of oral hypoglycemic drugs
CPT/HCPCS: 36415; 80053; 80061; 82043; 82306; 82947; 83036; 83721; 99212

== ENCOUNTER → 2021-01-09 13:37 | Outpatient (BNVA) | payer MEDICAID, SELFPAY | PROVIDERS: Visit Provider Physician Assistant | DX: M76.71 Peroneal tendinitis, right leg (principal) | CPT/HCPCS: 99212 ==

== ENCOUNTER 2021-01-21 20:11 | Emergency (ER) | payer MEDICAID, SELFPAY ==
[2021-01-21 20:19] VITALS: BP 167/101; PULSE 95; RESP 16; TEMP 36.2; O2SAT 98; BMI 29.0
[2021-01-21 21:31] VITALS: BP 143/94; PULSE 87; RESP 16; O2SAT 97
--- NOTE | 2021-01-21 21:37 | ED_ITS ---
HPI - General Adult General Chief complaint: Neck Pain/Injury Stated complaint: High blood pressure Time Seen by Provider: 01/21/21 21:27 Source: patient Mode of arrival: ambulatory Limitations: no limitations History of Present Illness HPI narrative: Patient comes to emergency room complaining of left-sided neck pa in and of the shoulder pain since this morning. Patient states that it hurts more when she moves her neck. Patient denies chest pain, no shortness of breath. Patient also complaining of high blood pressure. Patient states she tries to be compliant with medication for hypertension but sometimes she forgets her meds. Patient took today her blood pressure medications couple of hours prior to arrival. Patient took diltiazem, furosemide, lisinopril, clonidine. Related Data Home Medications Medication Instructions Recorded Confirmed calcium 600 mg capsule 600 mg PO 12/08/19 12/21/20 cetirizine 10 mg tablet 10 mg PO DAILY 12/08/19 12/21/20 clonidine HCl 0.1 mg tablet 0.1 mg PO BID 12/08/19 12/21/20 diltiazem HCl 360 mg capsule,24 360 mg PO DAILY 12/08/19 12/21/20 hr,extended release duloxetine 20 mg capsule,delayed 20 mg PO BID 12/08/19 12/21/20 release furosemide 20 mg tablet 20 mg PO DAILY 12/08/19 12/21/20 amitriptyline 10 mg tablet 10 mg PO BEDTIME 05/12/20 12/21/20 aspirin 81 mg tablet,delayed 81 mg PO DAILY 05/12/20 12/21/20 release diphenhydramine HCl 25 mg tablet 25 mg PO BEDTIME PRN 05/12/20 12/21/20 (Banophen) docusate sodium 100 mg capsule 100 mg PO DAILY 05/12/20 12/21/20 (DOK) lisinopril 20 mg tablet 40 mg PO DAILY tab 05/12/20 12/21/20 carvedilol 3.125 mg tablet 3.125 mg PO BID 11/29/20 12/21/20 bisacodyl 5 mg tablet,delayed 5 mg PO BEDTIME 12/21/20 12/21/20 release (Alophen (bisacodyl)) Previous Rx's Medication Instructions Recorded blood sugar diagnostic (FreeStyle #150 ea 03/23/20 Lite Strips) blood glucose control high and low #1 ea 03/28/20 solution (FreeStyle Control) folic acid 1 mg tablet 1 mg PO QAM #30 tab 08/02/20 dulaglutide 0.75 mg/0.5 mL 0.75 mg (0.5 mL) SUBCUT QWEEK 30 08/24/20 subcutaneous pen injector Days #2.5 ml (Trulicity) 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 meter (FreeStyle #1 ea 09/09/20 Lite Meter) hydroxychloroquine 200 mg tablet 200 mg PO BID #60 tab 09/30/20 lancets 33 gauge (TRUEplus Lancets) #120 ea 10/19/20 cholecalciferol (vitamin D3) 50 50 mcg PO DAILY #30 cap 10/27/20 mcg (2,000 unit) capsule methotrexate sodium 2.5 mg tablet 25 mg PO QWEEK #40 tab 10/27/20 atorvastatin 10 mg tablet 10 mg PO BEDTIME 90 Days #90 tab 11/28/20 acarbose 50 mg tablet 50 mg PO TID 30 Days #90 tab 12/21/20 cyclobenzaprine 5 mg tablet 5 mg PO BEDTIME PRN #7 tab 01/21/21 Allergies Allergy/AdvReac Type Severity Reaction Status Date / Time codeine [Codeine] Allergy Mild BURNING IN Verified 01/09/21 13:55 CHEST, chest pain sulfamethoxazole Allergy Mild ITCH,RASH Verified 01/09/21 13:55 [From Bactrim] Review of Systems Review of Systems: Constitutional : No Weight loss, No Fever, No Chills, No Night Sweats, No Fatigue, No Malaise ENT/Mouth : No Hearing loss, No Ear Pain, No Nasal Congestion, No Sinus Pain, No Hoarseness, No sore throat, No Rhinorrhea, No Swallowing Difficulty Eyes: No Eye Pain, No Swelling, No Redness, No Foreign Body, No Discharge, No Vision Changes Cardiovascular : No Chest Pain, No SOB, No Dyspnea on Exertion, No Orthopnea, No Edema, No Palpitations Respiratory : No Cough, No Sputum, No Wheezing, No Smoke Exposure, No Dyspnea Gastrointestinal : No Nausea, No Vomiting, No Diarrhea, No Constipation, No abdominal Pain, No Hematochezia, No Melena Genitourinary : no irregular bleeding, No Dysuria, No Urinary Frequency, No Hematuria, No Urinary Incontinence, No Urgency, No Flank Pain, No Urinary Flow Changes, No Hesitancy Musculoskeletal : Complaining of left-sided neck pain and left upper back pain and left shoulder pain, No Myalgias, No Joint Swelling Skin : No Skin Lesions, No rash Neuro : No Weakness, No Numbness, No Paresthesias, No Loss of Consciousness, No Dizziness, No Headache Psych : No Anxiety/Panic, No Depression, No SI/HI/AH/VH, No Social Issues, Heme/Lymph: No Bruising, No Bleeding,No Lymphadenopathy Endocrine : No Polyuria, No Polydipsia, No Temperature Intolerance [facility] Past Medical History Medical History Alopecia Asthma Back pain Constipation COPD (chronic obstructive pulmonary disease) COPD (chronic obstructive pulmonary disease) Depression Diabetes Diabetes type 2, controlled Diabetes type 2, uncontrolled Difficulty swallowing DM2 (diabetes mellitus, type 2) Elevated cholesterol Fibromyalgia GERD (gastroesophageal reflux disease) 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 (hypertension) 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 SOY (obstructive sleep apnea) SOY (obstructive sleep apnea) Osteoarthritis Rheumatoid arthritis 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 rheumatoid arthritis Sicca syndrome Sjogrens syndrome Sleep apnea Vitamin D deficiency Surgical History History of bladder suspension procedure History of esophagogastroduodenoscopy (EGD) History of laryngoscopy History of repair of left rotator cuff Hx of colonoscopy Hx of dilation and curettage Hx of hemorrhoidectomy Hx of tubal ligation Family History Family History Father Cancer Mother Heart disease Diabetes Social History Social History Household Members: Children and Other Household Members Other:: daughter, grandkids Are you a primary lawn care professional to a significant other at home: No Do you presently have visiting nurse or other home services: No Alcohol intake: never Patient Tobacco Use Status: Never used Tobacco e-Cigarette/Vaping Use: Never Used Second Hand Smoke Exposure: No Advance Directives: No Advance Directives Information Provided: No 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al status: disabled 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 Physical Exam Vital Signs: Vital Signs: Last Vital Signs Temp 97.2 F 01/21/21 20:19 Pulse 87 01/21/21 21:31 Resp 16 01/21/21 21:31 BP 143/94 H 01/21/21 21:31 Pulse Ox 97 01/21/21 21:31 Body Mass Index 29.0 Const: Other: Appearance: Alert. Oriented X3. No acute distress. Eyes: Pupils equal, round and reactive to light. ENT: Pharynx normal. Neck: Normal inspection. Pain to palpation over the left side of the neck. Patient still to flex and extend the neck with normal range of motion, pain on the left side of the neck with side to side movements , no C-spine tenderness CVS: Normal heart rate and rhythm. Pulses normal. Normal S1 and S2 Respiratory: No respiratory distress. Breath sounds normal. No Wheezing. No rales Abdomen: Soft and nontender. No rigidity. No distention. Back: Pain to palpation on the left upper Skin: Skin warm and dry. Normal skin color. Normal skin turgor. Extremities: No lower extremity edema. No lower extremity edema. No Lacerations. No Rash Neuro: Oriented X 3. No motor deficit. No sensory deficit. Moving all extermities. No slurred speech. Course Course Course Narrative: Patient's source of pain is likely musculoskeletal. However, due to patient's comorbidities will go ahead and do a cardiac workup. Patient was given 1 dose of aspirin and p.o. Valium. Patient ambulatory, feels better. Patient's troponin negative, EKG within normal limits. Patient's potassium was noted to be slightly low at 3.1 patient was given p.o. potassium. Medical Decision Making Lab Data Result diagrams: 01/21/21 22:07 01/21/21 22:07 Labs: Lab Results 01/21/21 01/21/21 01/21/21 Range/Units 22:07 22:07 22:07 WBC 10.6 (4.8-10.8) X10*3/uL RBC 4.45 (4.20-5.50) X10*6/uL Hgb 13.5 (12.0-16.0) g/dl Hct 39.5 (37.0-47.0) % MCV 88.8 (80.0-98.0) fL MCH 30.3 (27.0-33.0) pg MCHC 34.2 (31.0-35.0) g/dl RDW 13.1 (11.0-16.0) % Plt Count 287 (160-400) X10*3/uL MPV 9.2 L (9.4-12.3) fL Immature Gran % (Auto) 0.3 (0.0-0.4) % Neut % (Auto) 48.9 (45-73) % Lymph % (Auto) 38.6 (20-40) % [place] % (Auto) 9.5 (2-11) % Eos % (Auto) 2.3 (0-4) % Baso % (Auto) 0.4 (0-2) % Lymph # (Auto) 4.1 (1.2-4.9) X10*3/uL [place] # (Auto) 1.0 (0.1-1.2) X10*3/uL Eos # (Auto) 0.2 (0.0-0.4) X10*3/uL Baso # (Auto) 0.0 (0.0-0.2) X10*3/uL Abs Immat Gran (auto) 0.03 (0.00-0.03) X10*3/uL Absolute Neuts (auto) 5.2 (2.0-8.3) x10*3/uL Absolute Nucleated RBC 0.000 (0.0-0.012) X10*3/uL Nucleated RBC % (auto) 0.0 (0.0-0.2) /100WBC Sodium 140 (135-145) mmol/L Potassium 3.1 L (3.3-5.1) mmol/L Chloride 105 (96-108) mmol/L Carbon Dioxide 28 (22-29) mmol/L Anion Gap 10 L (12-20) BUN 21 H (9-16) mg/dL Creatinine 0.79 (0.5-1.4) mg/dL Estim Creat Clear Calc 66.0 Estimated GFR > 60 Random Glucose 137 H (60-115) mg/dL Calcium 9.6 (8.4-10.2) mg/dL Total Bilirubin 0.2 (0.0-1.0) mg/dL Direct Bilirubin < 0.2 (0.0-0.5) mg/dL AST 17 (5-31) U/L ALT 17 (0-31) U/L Alkaline Phosphatase 152 H (39-117) U/L Troponin I High Sens 3.5 (<3.5-17.0) ng/L Total Protein 7.5 (6.5-8.0) g/dL Albumin 4.2 (3.5-5.0) g/dL ECG Data Attestation: I personally reviewed and interpreted this ECG as follows: (Normal sinus rhythm, heart rate 77, a segment depression or elevation, QTC 443) Discharge Plan Discharge Clinical Impression: Left shoulder pain, Neck pain on left side Patient Disposition: Home, Self-Care Instructions: Musculoskeletal Pain (ED) Additional Instructions: Please follow-up with your primary care physician tomorrow. If you have any worsening or new symptoms, please return to the emergency room or call 911 Prescriptions: New cyclobenzaprine 5 mg tablet 5 mg PO BEDTIME PRN (Reason: muscle spasm) Qty: 7 RF: 0 No Action (DME) FreeStyle Lite Strips Strip See Rx Instructions .ROUTE .MEDSUPPLY Qty: 150 RF: 6 folic acid 1 mg tablet 1 mg PO QAM Qty: 30 RF: 11 (DME) 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 meter [FreeStyle Lite Meter] Kit See Rx Instructions miscellaneous .MEDSUPPLY Qty: 1 RF: 0 hydroxychloroquine 200 mg tablet 200 mg PO BID Qty: 60 RF: 5 (DME) lancets [TRUEplus Lancets] 33 gauge misc See Rx Instructions .ROUTE .MEDSUPPLY Qty: 120 RF: 6 methotrexate sodium 2.5 mg tablet 25 mg PO QWEEK Qty: 40 RF: 3 cholecalciferol (vitamin D3) 50 mcg (2,000 unit) capsule 50 mcg PO DAILY Qty: 30 RF: 6 atorvastatin 10 mg tablet 10 mg PO BEDTIME 90 Days Qty: 90 RF: 1 calcium 600 mg Capsule 600 mg PO RF: 0 diltiazem HCl 360 mg Capsule,Extended Release 24 Hr 360 mg PO DAILY RF: 0 clonidine HCl 0.1 mg Tablet 0.1 mg PO BID RF: 0 cetirizine 10 mg Tablet 10 mg PO DAILY RF: 0 furosemide 20 mg Tablet 20 mg PO DAILY RF: 0 duloxetine 20 mg Capsule,Delayed Release(Dr/Ec) 20 mg PO BID RF: 0 aspirin 81 mg tablet,delayed release (DR/EC) 81 mg PO DAILY RF: 0 diphenhydramine HCl [Banophen] 25 mg tablet 25 mg PO BEDTIME PRN (Reason: Sleep) RF: 0 docusate sodium [DOK] 100 mg capsule 100 mg PO DAILY RF: 0 lisinopril 20 mg tablet 40 mg PO DAILY RF: 0 (DME) FreeStyle Control Solution See Rx Instructions .ROUTE .MEDSUPPLY Qty: 1 RF: 2 amitriptyline 10 mg tablet 10 mg PO BEDTIME RF: 0 Trulicity 0.75 mg/0.5 mL pen injector 0.75 mg subcut QWEEK 30 Days Qty: 2.5 RF: 4 bisacodyl [Alophen (bisacodyl)] 5 mg tablet,delayed release (DR/EC) 5 mg PO BEDTIME RF: 0 acarbose 50 mg tablet 50 mg PO TID 30 Days Qty: 90 RF: 5 carvedilol 3.125 mg tablet 3.125 mg PO BID RF: 0
--- NOTE | 2021-01-21 21:38 | ECG_ITS ---
Test Reason : CHEST PAIN Blood Pressure : / mmHG Vent. Rate : 077 BPM Atrial Rate : 077 BPM P-R Int : 172 ms QRS Dur : 096 ms QT Int : 392 ms P-R-T Axes : 027 -25 009 degrees QTc Int : 443 ms Normal sinus rhythm Moderate voltage criteria for LVH, may be normal variant ( R in aVL , Sha product ) Poor R wave progression Intra-ventricular conduction delay Abnormal ECG When compared with ECG of 04-MAY-2018 07:50, Vent. rate has decreased BY 44 BPM Referred By: Ree Johns Electronically Signed By:TOD HAYES MD
[2021-01-21] MEDS: Aspirin Enteric Coated 325 MG TABLET.DR PO (21:58)
[2021-01-21] MEDS: diazePAM 5 MG TABLET 2.5 MG PO (21:59)
[2021-01-21 22:17] LABS: MANUAL DIFF FLAG NO
[2021-01-21 22:18] LABS: Basophils Percent Auto 0.4 % (0-2); Eosinophils Absolute Auto 0.2 X10*3/uL (0.0-0.4); Eosinophils Percent Auto 2.3 % (0-4); Hematocrit 39.5 % (37.0-47.0); Hemoglobin 13.5 g/dl (12.0-16.0); Imm Gran Abs Auto 0.03 X10*3/uL (0.00-0.03); Imm Gran Pct Auto 0.3 % (0.0-0.4); Lymphocytes Absolute Auto 4.1 X10*3/uL (1.2-4.9); Lymphocytes Percent Auto 38.6 % (20-40); Mean Corpuscular HGB Conc 34.2 g/dl (31.0-35.0); Mean Corpuscular Hemoglobin 30.3 pg (27.0-33.0); Mean Corpuscular Volume 88.8 fL (80.0-98.0); Mean Platelet Volume 9.2 fL (9.4-12.3); Monocytes Percent Auto 9.5 % (2-11); Neutrophils Absolute Auto 5.2 x10*3/uL (2.0-8.3); Neutrophils Percent Auto 48.9 % (45-73); Platelet Count 287 X10*3/uL (160-400); Red Blood Count 4.45 X10*6/uL (4.20-5.50); Red Cell Distribution Width 13.1 % (11.0-16.0); White Blood Count 10.6 X10*3/uL (4.8-10.8)
[2021-01-21 22:35] LABS: Alanine Aminotransferase 17 U/L (0-31); Albumin Level 4.2 g/dL (3.5-5.0); Alkaline Phosphatase 152 U/L (39-117); Anion Gap 10 (12-20); Aspartate Amino Transferase 17 U/L (5-31); Bilirubin Direct < 0.2 mg/dL (0.0-0.5); Bilirubin Total 0.2 mg/dL (0.0-1.0); Blood Urea Nitrogen 21 mg/dL (9-16); Calcium 9.6 mg/dL (8.4-10.2); Carbon Dioxide 28 mmol/L (22-29); Chloride 105 mmol/L (96-108); Estimated Glomerular Filt Rate > 60; Glucose Random 137 mg/dL (60-115); Potassium 3.1 mmol/L (3.3-5.1); Sodium 140 mmol/L (135-145); Total Protein 7.5 g/dL (6.5-8.0)
[2021-01-21 22:41] LABS: Troponin-I High Sensitivity 3.5 ng/L (<3.5-17.0)
[2021-01-21 23:46] VITALS: BP 141/91; PULSE 80; RESP 18; TEMP 36.5; O2SAT 100
== END 2021-01-22 00:19 | disposition home or self-care (01) ==
PROVIDERS: Emergency Provider Emergency Medicine; PCP Internal Medicine
DX: M54.2 Cervicalgia (principal); M25.512 Pain in left shoulder; I10 Essential (primary) hypertension; E11.9 Type 2 diabetes mellitus without complications; J44.9 Chronic obstructive pulmonary disease, unspecified; Z79.4 Long term (current) use of insulin
CPT/HCPCS: 36415; 80048; 80076; 84484; 85025; 93005; 99283; 99284

== ENCOUNTER → 2021-02-02 08:58 | Outpatient (REF) | payer MEDICAID, SELFPAY ==
--- NOTE | 2021-02-02 | CA_ITS ---
Acquisition Time: 2021-02-02 09:19:52 Total Exercise Time: 00:02:00 Test Indications: Chest Pain Medications: CLONAZAPAM TRULICITY FUROSEMIDE CARVEDILOL Protocol: LEXISCAN Max HR: 099 BPM 62% of Pred: 158 BPM Max BP: 118/066 mmHG Max Work Load: 1.0 METS Pharmacological stress test with lexican injection, while sitting and kicking her legs, without anginal symptoms, without arrythmia, with normotensive response to injection, with nondiagnostic EKG for ischemia. In recovery she reported lightheadedness that was treated with Aminophylline 75mg IVP to reverse Lexiscan with resolution of symptom. Nuclear images pending. Test reviewed with Dr Alvarado. Referred By: Isidro Watkins Overread By: LORENE SHAFFER
--- NOTE | ~2021-02-02 | NM_ITS ---
Lexiscan Myocardial perfusion study Indication: Chest pain, assess for coronary disease and ischemia Technique: The patient was brought in for a Lexiscan perfusion study on 02/02/2021 and was injected 0.4 mg of Lexiscan intravenously. Within a minute of this injection 25 mCi of sestamibi was given intravenously. Images were obtained using the SPECT gamma camera interlaced with the gating device. Images were obtained in supine position. Resting perfusion study was performed on 02/03/2021. Patient was administered 25 mCi of sestamibi intravenously at rest. Images were then obtained in supine position. Total DLP 109mGy-cm. Images were processed with the software and compared side to side in short axis, horizontal long axis and vertical long axis views. Findings: Raw acquisition was reviewed. The stress perfusion study showed no significant perfusion abnormality. Both uncorrected as well as CT attenuation corrected images were reviewed. The gated study shows normal LV systolic function with calculated LVEF of 65%. LV cavity is normal in size. The gated study shows normal wall thickening and contraction of segments. Resting study shows no significant perfusion abnormality. Gating at rest reveals normal wall motion with ejection fraction at 69%. The findings are consistent with no reversible or fixed perfusion abnormality. NM/NM jacques perf SPECT rest & str Impression: 1. Myocardial perfusion imaging study shows likely normal myocardial perfusion. 2. Gated LVEF is 65% during stress and 69% during rest. 3. Transient ischemic dilatation not present. EKG component of the test reported separately.
== END ==
LOC: HO.CARD 08:58
PROVIDERS: Visit Provider Internal Medicine Cardiovascular Disease
DX: R07.89 Other chest pain (principal)
CPT/HCPCS: 78452; 93017; A9500; J0280; J2785

== ENCOUNTER 2021-03-01 14:00 | Outpatient (RCR) | payer MEDICAID, SELFPAY ==
--- NOTE | 2021-02-09 15:50 | MHC.PT.EP ---
[facility] [place] [facility] [place] [facility] [place] [facility] [address] Skye Waterman [address] [phone] F: [phone] F: [phone] F: [phone] F: [phone] Physical Therapy Plan of Care Date of Evaluation: Date of Surgery: Diagnosis: PERONEAL TENDONITIS, RIGHT LE Assessment: 60 YO FEMALE REF TO PT W Rt PERONEAL TENDONITIS SINCE MAY 2020- SHE HAS BEEN UNANBLE TO WEAR HER CAM WALKER DUE TO EXACERBATION OF HER KNEE OA. Pt HAS DECR ANKLE FLEXIB, DECR CORE./ PROX LEs STRENGTH, (+) TTP Rt PERONEAL REGION,AND PAIN LIMITING FUNCTION. SHE HAS FUNCTIONAL LIMITATIONS W GAIT, STAIRS, STANDING, AND NOTES SHE FEELS UNSTEADY W GETTING DRESSED. Pt WOULD BENEFIT FROM PT TO ADDRESS THE ABOVE AND MAXIMIZE HER FUNCT INDEP. Frequency and Duration: The patient will be seen 2 x WK x 5 WKS Short Term Goals: Pt'S Rt LAT MALL/ PERONEAL SXS DCER TO 2-3/10 IN 2 WKS Pt DEMON IMPROVED AROM Rt ANKLE IN 2 WKS Pt DEMON IMPROVED GAIT MECH ON LEVEL SURFACES AND STAIR MGMT IN 2 WKS Custodial Goals: Pt INDEP W HEP STRENGTH PROGR AND SELF SX MGMT TECHN IN 5 WKS Pt RESUME REG ADLs, FITNESS WALKING , IMPROVED LEFI BY 5-8 POINTS (15/80 AT EVAL) IN 5 WKS Treatment Plan: Modalities to reduce pain, spasms and effusion. Manual therapy to restore motion and function. Therapeutic exercise to improve strength and flexibility. Neuromuscular re-education for posture and balance. Therapeutic activities to return to functional activities of daily living. Electronically signed by: Rhiannon David,PT Please sign and return to therapist. Thank you for your referral.
== END 2021-03-30 13:02 | disposition home or self-care (01) ==
LOC: HO.PT 14:00
PROVIDERS: PCP Internal Medicine; Visit Provider Physician Assistant
DX: M76.71 Peroneal tendinitis, right leg (principal)
CPT/HCPCS: 97110; 97161

== ENCOUNTER → 2021-05-01 14:26 | Outpatient (BNVA) | payer MEDICAID, SELFPAY | PROVIDERS: PCP Internal Medicine; Visit Provider Registered Nurse Diabetes Educator ==

== ENCOUNTER → 2021-05-04 13:42 | Outpatient (BNVA) | payer MEDICAID, SELFPAY | PROVIDERS: PCP Internal Medicine; Visit Provider Nurse Practitioner Gerontology | DX: E11.9 Type 2 diabetes mellitus without complications (principal); E78.00 Pure hypercholesterolemia, unspecified; E55.9 Vitamin D deficiency, unspecified; I10 Essential (primary) hypertension | CPT/HCPCS: 82947; 83036; 99212 ==

== ENCOUNTER 2021-06-26 18:45 | Emergency (ER) | payer MEDICAID, SELFPAY ==
--- NOTE | 2021-06-26 | ECG_ITS ---
Test Reason : HYPERTENSION Blood Pressure : / mmHG Vent. Rate : 078 BPM Atrial Rate : 078 BPM P-R Int : 160 ms QRS Dur : 100 ms QT Int : 402 ms P-R-T Axes : 022 -28 019 degrees QTc Int : 458 ms Normal sinus rhythm Moderate voltage criteria for LVH, may be normal variant ( R in aVL , [place] product ) Borderline ECG When compared with ECG of 21-JAN-2021 22:15, No significant change was found Referred By: Generic ED Physician Electronically Signed By:LEONIDES OLEA
[2021-06-26 19:15] VITALS: BP 162/103; PULSE 85; RESP 18; TEMP 36.2; O2SAT 96; BMI 28.3
== END 2021-06-26 22:00 | disposition left against medical advice (07) ==
PROVIDERS: Emergency Provider Emergency Medicine; PCP Internal Medicine
DX: R51.9 Headache, unspecified (principal); I10 Essential (primary) hypertension; H53.8 Other visual disturbances; G47.33 Obstructive sleep apnea (adult) (pediatric); R79.89 Other specified abnormal findings of blood chemistry; Z79.899 Other long term (current) drug therapy
CPT/HCPCS: 93005; 99283

== ENCOUNTER 2021-07-12 12:33 | Emergency (ER) | payer MEDICAID, SELFPAY ==
--- NOTE | ~2021-07-12 | XR_ITS ---
EXAMINATION: XR CHEST CLINICAL INFORMATION: Dizziness and right neck pain COMPARISON: None TECHNIQUE: 2 views of the chest were obtained. FINDINGS: No significant abnormality is noted involving the heart, lungs, mediastinum, bony thorax or soft tissues. Again noted is some stable linear scarring in the left midlung. XR/XR chest 2V IMPRESSION: Unremarkable unchanged examination.
--- NOTE | ~2021-07-12 | CT_ITS ---
EXAMINATION: CTA OF THE HEAD AND NECK CLINICAL INFORMATION: Intermittent dizziness and right-sided neck pain. COMPARISON: Head CT from 05/04/2018. TECHNIQUE: Test bolus sequences followed by intravenous administration 70 mL of Omnipaque 350. Helical imaging was performed in the axial plane from the mediastinum to the skull vertex. Delayed postcontrast imaging of the head was also performed. The data was processed at the genetic technologist's workstation for generation of MIP sequences. Three-dimensional volume rendered reformatted images were also generated at an offline 3-D workstation. Stenoses are assessed in accordance with NASCET criteria unless otherwise indicated. This CT examination was performed using dose optimization techniques as appropriate, variously including the following: *Automated exposure control *Adjustment of mA and/or kV according to patient size (this includes techniques or standardized protocols for targeted exams where dose is matched to indication/reason for exam; i.e. extremities or head) *Use of iterative reconstruction technique DLP: 2195 mGy-cm. FINDINGS: CT head: There is no evidence of acute intracranial hemorrhage or territorial infarction. There is no loss of alaniz to white matter differentiation. No abnormal mass effect or midline shift is seen. No extra-axial fluid collections are identified. There is no abnormal enhancement. The ventricles are normal in size. Moderate patchy areas of low-density change again visible in the bifrontal white matter and subinsular regions, which may be due to chronic microangiopathy. The osseous structures and soft tissues are normal. The mastoid air cells and visualized portions of the paranasal sinuses are well aerated. CTA neck: The imaged aortic arch and origins of the great vessels are normal. The common carotid arteries are widely patent. The carotid bifurcations are normal. The cervical internal carotid arteries are normal. The vertebral arteries opacify normally and are of normal caliber. The parotid and submandibular glands are heterogeneous with nodularity and partial fatty replacement, presumably due to chronic inflammatory disease. Multilevel cervical spondylosis noted with hypertrophic facet arthropathy, most severe on the right side at the C4-C5 level. There are mild subsegmental atelectatic changes in the lungs. CTA head: The intradural vertebral arteries and basilar artery are normal. The posterior cerebral arteries are widely patent. The internal carotid arteries are of normal caliber. The TRAVON and MCA vascular complexes bilaterally are normal. The venous sinuses opacify normally. CT/CT angio head neck IMPRESSION: Normal CT angiogram of the head and neck. No acute intracranial process. Moderate bifrontal chronic white matter microangiopathy. No abnormal enhancement. Severe right-sided facet arthropathy, particularly at the C4-C5 level. Imaging findings reported to PATRICIA Liu at 7:06 PM on 07/12/2021.
[2021-07-12 12:46] VITALS: BP 152/99; PULSE 78; RESP 16; TEMP 36.1; O2SAT 96; BMI 28.3
[2021-07-12 16:14] VITALS: BP 149/93; PULSE 73; RESP 16; TEMP 36.7; O2SAT 97
--- NOTE | 2021-07-12 16:34 | ECG_ITS ---
Test Reason : dizziness Blood Pressure : / mmHG Vent. Rate : 067 BPM Atrial Rate : 067 BPM P-R Int : 162 ms QRS Dur : 094 ms QT Int : 422 ms P-R-T Axes : 030 -22 065 degrees QTc Int : 445 ms Normal sinus rhythm Moderate voltage criteria for LVH, may be normal variant ( R in aVL , Sha product ) Nonspecific T wave abnormality Abnormal ECG When compared with ECG of 26-JUN-2021 19:15, Nonspecific T wave abnormality now evident in Lateral leads Referred By: Fadumo Wray Electronically Signed By:JANES JEFFREY MD
[2021-07-12 16:57] LABS: MANUAL DIFF FLAG NO
[2021-07-12 16:58] LABS: Basophils Percent Auto 0.5 % (0-2); Eosinophils Absolute Auto 0.5 X10*3/uL (0.0-0.4); Eosinophils Percent Auto 8.1 % (0-4); Hematocrit 38.4 % (37.0-47.0); Imm Gran Abs Auto 0.01 X10*3/uL (0.00-0.03); Imm Gran Pct Auto 0.2 % (0.0-0.4); Lymphocytes Absolute Auto 2.4 X10*3/uL (1.2-4.9); Lymphocytes Percent Auto 36.9 % (20-40); Mean Corpuscular HGB Conc 33.9 g/dl (31.0-35.0); Mean Corpuscular Hemoglobin 29.5 pg (27.0-33.0); Mean Corpuscular Volume 87.1 fL (80.0-98.0); Mean Platelet Volume 9.6 fL (9.4-12.3); Monocytes Absolute Auto 0.9 X10*3/uL (0.1-1.2); Monocytes Percent Auto 13.9 % (2-11); Neutrophils Absolute Auto 2.6 x10*3/uL (2.0-8.3); Neutrophils Percent Auto 40.4 % (45-73); Platelet Count 254 X10*3/uL (160-400); Red Blood Count 4.41 X10*6/uL (4.20-5.50); Red Cell Distribution Width 12.9 % (11.0-16.0); White Blood Count 6.5 X10*3/uL (4.8-10.8)
--- NOTE | 2021-07-12 17:04 | ED_ITS ---
HPI - Neck Pain/Injury General Chief Complaint: Neck Pain/Injury Stated Complaint: neck pain Time Seen by Provider: 07/12/21 16:18 Source: patient Mode of arrival: ambulatory Limitations: no limitations History of Present Illness HPI Narrative: 60-year-old Singaporean-speaking female with a past medical history of diabetes type 2, hypertension, hyperlipidemia, seropositive rheumatoid arthritis, Sicca Syndrome, Sjogrens syndrome, obstructive sleep apnea, COPD, chronic back pain, fibromyalgia and GERD presenting to the ED with complaints of intermittent dizziness for the past 2 weeks with intermittent blurry vision and for the past 3 days she has been having a weird throbbing sensation where she reports ?my vein in my neck feels like it is throbbing and this is when I developed the dizziness?. She reports she has never had this symptom in the past. She denies any fevers, chills, headache, recent falls or injury to head or neck, chest pain or shortness of breath, dyspnea on exertion, orthopnea, palpitations, paresthesias, lower extremity edema or calf tenderness, nausea/vomiting/diarrhea constipation, black or bloody stools, abdominal pain, back pain, IV drug use, or any other symptoms complaints or concerns at this time. complaint: neck pain Onset (ago): day(s) (3) Place: home Radiation: right lateral Severity: moderate and intermittent Quality: throbbing Duration: intermittent Relieving factors: none Exacerbating factors: none Associated symptoms: other (Intermittent dizziness and blurry vision) Treatments prior to arrival: none Related Data Home Medications Medication Instructions Recorded Confirmed calcium 600 mg capsule 600 mg PO 12/08/19 12/21/20 cetirizine 10 mg tablet 10 mg PO DAILY 12/08/19 12/21/20 clonidine HCl 0.1 mg tablet 0.1 mg PO BID 12/08/19 12/21/20 diltiazem HCl 360 mg capsule,24 360 mg PO DAILY 12/08/19 12/21/20 hr,extended release duloxetine 20 mg capsule,delayed 20 mg PO BID 12/08/19 12/21/20 release furosemide 20 mg tablet 20 mg PO DAILY 12/08/19 12/21/20 amitriptyline 10 mg tablet 10 mg PO BEDTIME 05/12/20 12/21/20 aspirin 81 mg tablet,delayed 81 mg PO DAILY 05/12/20 12/21/20 release diphenhydramine HCl 25 mg tablet 25 mg PO BEDTIME PRN 05/12/20 12/21/20 (Banophen) docusate sodium 100 mg capsule 100 mg PO DAILY 05/12/20 12/21/20 (DOK) lisinopril 20 mg tablet 40 mg PO DAILY tab 05/12/20 12/21/20 carvedilol 3.125 mg tablet 3.125 mg PO BID 11/29/20 05/04/21 bisacodyl 5 mg tablet,delayed 5 mg PO BEDTIME 12/21/20 12/21/20 release (Alophen (bisacodyl)) Previous Rx's Medication Instructions Recorded blood glucose control high and low #1 ea 03/28/20 solution (FreeStyle Control) folic acid 1 mg tablet 1 mg PO QAM #30 tab 08/02/20 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 meter (FreeStyle #1 ea 09/09/20 Lite Meter) hydroxychloroquine 200 mg tablet 200 mg PO BID #60 tab 09/30/20 methotrexate sodium 2.5 mg tablet 25 mg PO QWEEK #40 tab 10/27/20 cyclobenzaprine 5 mg tablet 5 mg PO BEDTIME PRN #7 tab 01/21/21 blood sugar diagnostic (FreeStyle #150 ea 02/10/21 Lite Strips) acarbose 25 mg tablet 25 mg PO TID #30 tab 05/04/21 atorvastatin 10 mg tablet 10 mg PO BEDTIME 90 Days #90 tab 05/29/21 cholecalciferol (vitamin D3) 50 50 mcg PO DAILY #90 cap 05/29/21 mcg (2,000 unit) capsule lancets 33 gauge (TRUEplus Lancets) #120 ea 06/20/21 dulaglutide 0.75 mg/0.5 mL 0.75 mg (0.5 mL) SUBCUT QWEEK 30 06/23/21 subcutaneous pen injector Days #2.5 ml (Trulicity) acarbose 50 mg tablet 50 mg PO TID 30 Days #90 tab 06/28/21 cyclobenzaprine 10 mg tablet 10 mg PO Q8H PRN #14 tab 07/12/21 naproxen 500 mg tablet 500 mg PO BID PRN #14 tab 07/12/21 Allergies Allergy/AdvReac Type Severity Reaction Status Date / Time codeine [Codeine] Allergy Mild BURNING IN Verified 06/26/21 19:15 CHEST, chest pain sulfamethoxazole Allergy Mild ITCH,RASH Verified 06/26/21 19:15 [From Bactrim] Review of Systems Review of Systems: Constitutional : No trauma, No Weight loss, No Fever, No Chills, ENT/Mouth : No Hearing loss, No Ear Pain, No Nasal Congestion, No Sinus Pain, No Hoarseness, No sore throat, No Rhinorrhea, No Swallowing Difficulty Cardiovascular : No Chest Pain, No SOB Respiratory : No Cough, No Dyspnea Gastrointestinal : No Nausea, No Vomiting, No Diarrhea, No abdominal Pain, No Hematochezia, No Melena Genitourinary : No Dysuria, No Urinary Frequency, No Hematuria, No Urinary or Bowel Incontinence/retention Musculoskeletal : + Neck pain, No Back pain, No joint stiffness, No joint sw elling Skin : No Skin Lesions, No rash or signs of infection Neuro : + intermittent dizziness, nO Tingling to b/l arms/legs, No Weakness, No radiation, No Numbness, No headache, no loss of bowel or bladder incontinence, no saddle anesthesia Denies history of IV drug usage. Yes all other systems are reviewed and are negative PMFSH Past Medical History Attestation statement: The following information was validated with the patient. Medical History Alopecia Asthma Back pain Constipation COPD (chronic obstructive pulmonary disease) COPD (chronic obstructive pulmonary disease) Depression Diabetes Diabetes type 2, controlled Diabetes type 2, uncontrolled Difficulty swallowing DM2 (diabetes mellitus, type 2) Elevated cholesterol Fibromyalgia GERD (gastroesophageal reflux disease) HTN (hypertension) custodial (current) use of insulin SOY (obstructive sleep apnea) SOY (obstructive sleep apnea) Osteoarthritis Rheumatoid arthritis 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 rheumatoid arthritis Sicca syndrome Sjogrens syndrome Sleep apnea Vitamin D deficiency Surgical History History of bladder suspension procedure History of esophagogastroduodenoscopy (EGD) History of laryngoscopy History of repair of left rotator cuff Hx of colonoscopy Hx of dilation and curettage Hx of hemorrhoidectomy Hx of tubal ligation Family History Family History Father Cancer Mother Heart disease Diabetes Social History Social History Household Members: Children and Other Household Members Other:: daughter, grandkids Are you a primary healthcare analyst to a significant other at home: No Do you presently have visiting nurse or other home services: No Alcohol intake: never Patient Tobacco Use Status: Never used Tobacco e-Cigarette/Vaping Use: Never Used Second Hand Smoke Exposure: No Advance Directives: No Advance Directives Information Provided: Yes 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al status: disabled 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 Physical Exam Vital Signs: Vital Signs: Last Vital Signs Temp 98.0 F 07/12/21 16:14 Pulse 73 07/12/21 16:14 Resp 16 07/12/21 16:14 BP 149/93 H 07/12/21 16:14 Pulse Ox 97 07/12/21 16:14 BMI result Body Mass Index 28.3 vital signs have been reviewed as normal and appeared to be correct. Blood pressure normal. Heart rate normal. Respiration rate normal. Temperature normal. Oxygen saturation normal. Appearance: Alert. Oriented X3. No acute distress. Head: Normal external exam. Normocephalic. Atraumatic. Able to rotate head bilaterally. Eyes: PERRLA. EOMI. Conjunctiva and sclera normal. Eyelids normal. Corneal reflex normal. No nystagmus is noted. ENT: EAC normal. TM's Normal. Tongue midline. Pharynx normal. Uvula midline. Moist mucous membranes. No lesions/ulcerations or masses noted on the tongue. Normal voice. No trismus noted. No drooling noted. No muffled voice noted. Neck: Normal inspection. Neck supple. FROM. No adenopathy. Thyroid Normal. No tracheal deviation noted. No crepitus is noted. No meningeal signs. No neck mass noted. No signs of trauma noted. CVS: Normal heart rate and rhythm. Heart sound normal. No bruits noted. No carotid bruits noted. Pulses normal throughout. No murmurs/rales/gallops. Patient mild tenderness palpation to the right paracervical musculature. No mid cervical tenderness step-offs or deformities. No rashes/lesion/induration/fluctuance or signs of infection noted. Patient neuro intact bilaterally and distally on all 4 extremities. Reflexes intact bilaterally and distally on all 4 extremities. Respiratory: No respiratory distress. Painless inspiration. Breath sounds normal. No wheezes/rales/rhonchi noted. Chest nontender. No crepitus is noted. No signs of trauma noted. No accessory muscle usage noted or decreased air movement noted. No signs of trauma. Abdomen: Soft and nontender. Bowel sounds normal in all 4 quadrants. No distention noted. No organomegaly noted. No visible injury noted. Back: No CVA tenderness. Full range of motion noted. Nontender. No signs of trauma. Patient neuro intact bilaterally and distally on all 4 extremities. Patient's reflexes intact bilaterally and distally on all 4 extremities. No rashes/lesion/induration/fluctuance or signs of infection noted. Skin: Skin warm and dry. Normal skin color. Normal skin turgor. No rashes/lesions/lacerations noted. Extremities: No lower extremity edema. No calf tenderness is noted. Extremities exhibit normal range of motion and nontender. Able to shrug shoulders bilaterally and keep up against resistance. Neuro: Oriented X 3. No motor deficit. No sensory deficit. Reflexes normal. Moving all extremities. No focal motor deficits. Cranial nerves II-XI intact bilaterally. Facial strength normal. Normal cognition. Speech normal. Gait normal. Strength 5/5 throughout. No pronator drift. No tremor noted. No fasciculations noted. No rigidity noted. Muscle tone normal throughout. No asterixis noted. Cenghh-[id number] test normal. Heel to cotto test normal. Tandem gait normal. Does not sway with eyes open. Romberg test negative. Rapid alternating movement upper extremity normal. Rapid alternating movement lower extremity normal. Hand drop from overhead Misses face. NIHSS score 0. Vascular: + radial pulses/+ 2 distal pedal pulses/+2 dorsalis pedis b/l. Normal cap refill. No cyanosis noted to upper extremity nails and lower extremity toes nails. Course Course Course Narrative: 16:35pm - 60-year-old Singaporean-speaking female with a past medical history of diabetes type 2, hypertension, hyperlipidemia, seropositive rheumatoid arthritis, Sicca Syndrome, Sjogrens syndrome, obstructive sleep apnea, COPD, chronic back pain, fibromyalgia and GERD presenting to the ED with complaints of intermittent dizziness for the past 2 weeks with intermittent blurry vision and for the past 3 days she has been having a weird throbbing sensation where she reports ?my vein in my neck feels like it is throbbing and this is when I developed the dizziness?. Plan: Labs, chest x-ray, EKG, CT angio of head and neck and re-evaluate. Reevaluation(s) Reevaluation #1: - labs reviewed and all within normal limits. CTA of head and neck revealed chronic changes no acute processes noted. Patient most likely arthritis this is what the CT scan is reporting therefore will DC home with symptomatic treatment for muscular and instructions return if any new or worsening symptoms to follow up with primary care provider. Patient understands agrees with this plan. Time: 19:09 [facility] - Neck Pain/Injury Medical Records Attestation: I reviewed the patient's medical records. Lab Data Attestation: I reviewed the patient's lab results. Result diagrams: 07/12/21 16:53 07/12/21 16:53 Labs: Lab Results 07/12/21 07/12/21 07/12/21 Range/Units 16:53 16:53 16:53 WBC 6.5 (4.8-10.8) X10*3/uL RBC 4.41 (4.20-5.50) X10*6/uL Hgb 13.0 (12.0-16.0) g/dl Hct 38.4 (37.0-47.0) % MCV 87.1 (80.0-98.0) fL MCH 29.5 (27.0-33.0) pg MCHC 33.9 (31.0-35.0) g/dl RDW 12.9 (11.0-16.0) % Plt Count 254 (160-400) X10*3/uL MPV 9.6 (9.4-12.3) fL Immature Gran % (Auto) 0.2 (0.0-0.4) % Neut % (Auto) 40.4 L (45-73) % Lymph % (Auto) 36.9 (20-40) % [place] % (Auto) 13.9 H (2-11) % Eos % (Auto) 8.1 H (0-4) % Baso % (Auto) 0.5 (0-2) % Lymph # (Auto) 2.4 (1.2-4.9) X10*3/uL [place] # (Auto) 0.9 (0.1-1.2) X10*3/uL Eos # (Auto) 0.5 H (0.0-0.4) X10*3/uL Baso # (Auto) 0.0 (0.0-0.2) X10*3/uL Abs Immat Gran (auto) 0.01 (0.00-0.03) X10*3/uL Absolute Neuts (auto) 2.6 (2.0-8.3) x10*3/uL Absolute Nucleated RBC 0.000 (0.0-0.012) X10*3/uL Nucleated RBC % (auto) 0.0 (0.0-0.2) /100WBC PT 12.3 (9.9-13.0) SEC INR 1.1 (0.9-1.1) Sodium 142 (135-145) mmol/L Potassium 3.6 (3.3-5.1) mmol/L Chloride 107 (96-108) mmol/L Carbon Dioxide 26 (22-29) mmol/L Anion Gap 13 (12-20) BUN 17 H (9-16) mg/dL Creatinine 0.76 (0.5-1.4) mg/dL Estim Creat Clear Calc 67.7 Estimated GFR > 60 Random Glucose 99 (60-115) mg/dL Calcium 10.1 (8.4-10.2) mg/dL Magnesium 1.8 (1.6-2.6) mg/dL Total Bilirubin 0.3 (0.0-1.0) mg/dL AST 21 (5-31) U/L ALT 14 (0-31) U/L Alkaline Phosphatase 123 H (39-117) U/L Troponin I High Sens (<3.5-17.0) ng/L Total Protein 7.3 (6.5-8.0) g/dL Albumin 3.9 (3.5-5.0) g/dL 07/12/21 Range/Units 16:53 WBC (4.8-10.8) X10*3/uL RBC (4.20-5.50) X10*6/uL Hgb (12.0-16.0) g/dl Hct (37.0-47.0) % MCV (80.0-98.0) fL MCH (27.0-33.0) pg MCHC (31.0-35.0) g/dl RDW (11.0-16.0) % Plt Count (160-400) X10*3/uL MPV (9.4-12.3) fL Immature Gran % (Auto) (0.0-0.4) % Neut % (Auto) (45-73) % Lymph % (Auto) (20-40) % [place] % (Auto) (2-11) % Eos % (Auto) (0-4) % Baso % (Auto) (0-2) % Lymph # (Auto) (1.2-4.9) X10*3/uL [place] # (Auto) (0.1-1.2) X10*3/uL Eos # (Auto) (0.0-0.4) X10*3/uL Baso # (Auto) (0.0-0.2) X10*3/uL Abs Immat Gran (auto) (0.00-0.03) X10*3/uL Absolute Neuts (auto) (2.0-8.3) x10*3/uL Absolute Nucleated RBC (0.0-0.012) X10*3/uL Nucleated RBC % (auto) (0.0-0.2) /100WBC PT (9.9-13.0) SEC INR (0.9-1.1) Sodium (135-145) mmol/L Potassium (3.3-5.1) mmol/L Chloride (96-108) mmol/L Carbon Dioxide (22-29) mmol/L Anion Gap (12-20) BUN (9-16) mg/dL Creatinine (0.5-1.4) mg/dL Estim Creat Clear Calc Estimated GFR Random Glucose (60-115) mg/dL Calcium (8.4-10.2) mg/dL Magnesium (1.6-2.6) mg/dL Total Bilirubin (0.0-1.0) mg/dL AST (5-31) U/L ALT (0-31) U/L Alkaline Phosphatase (39-117) U/L Troponin I High Sens 3.7 (<3.5-17.0) ng/L Total Protein (6.5-8.0) g/dL Albumin (3.5-5.0) g/dL Imaging Data Chest x-ray: Attestation: I personally reviewed and interpreted this imaging study as follows: Radiologist's impression: FINDINGS: No significant abnormality is noted involving the heart, lungs, mediastinum, bony thorax or soft tissues. Again noted is some stable linear scarring in the left midlung. XR/XR chest 2V IMPRESSION: Unremarkable unchanged examination. CTA of head and neck with IV contrast: Attestation: I personally reviewed and interpreted this imaging study as follows: Radiologist's impression: FINDINGS: CT head: There is no evidence of acute intracranial hemorrhage or territorial infarction. There is no loss of alaniz to white matter differentiation. No abnormal mass effect or midline shift is seen. No extra-axial fluid collections are identified. There is no abnormal enhancement. The ventricles are normal in size. Moderate patchy areas of low-density change again visible in the bifrontal white matter and subinsular regions, which may be due to chronic microangiopathy. The osseous structures and soft tissues are normal. The mastoid air cells and visualized portions of the paranasal sinuses are well aerated. ? CTA neck: The imaged aortic arch and origins of the great vessels are normal. The common carotid arteries are widely patent. The carotid bifurcations are normal. The cervical internal carotid arteries are normal. The vertebral arteries opacify normally and are of normal caliber. The parotid and submandibular glands are heterogeneous with nodularity and partial fatty replacement, presumably due to chronic inflammatory disease. Multilevel cervical spondylosis noted with hypertrophic facet arthropathy, most severe on the right side at the C4-C5 level. There are mild subsegmental atelectatic changes in the lungs. CTA head: The intradural vertebral arteries and basilar artery are normal. The posterior cerebral arteries are widely patent. The internal carotid arteries are of normal caliber. The TRAVON and MCA vascular complexes bilaterally are normal. The venous sinuses opacify normally. CT/CT angio head neck IMPRESSION: ? Normal CT angiogram of the head and neck. No acute intracranial process. Moderate bifrontal chronic white matter microangiopathy. No abnormal enhancement. ? Severe right-sided facet arthropathy, particularly at the C4-C5 level. ? Imaging findings reported to PATRICIA Liu at 7:06 PM on 07/12/2021. ECG Data Attestation: I personally reviewed and interpreted this ECG as follows: ECG interpretation date: 07/12/21 ECG interpretation time: 16:36 Interpretation: Normal sinus rhythm with LVH with nonspecific T-wave abnormalities no acute ischemic change are noted. Similar compared to prior EKG 06/26/2021 Critical Care Time Critical Care Time Critical Care Time: Yes Total Critical Care Time: 60 Attestation: I personally attest to this time spent taking care of the patient Discharge Plan Discharge Clinical Impression: Neck muscle spasm, Dizziness of unknown cause Patient Disposition: Home, Self-Care Instructions: Dizziness (ED), Muscle Spasm (ED) Prescriptions: New naproxen 500 mg tablet 500 mg PO BID PRN (Reason: pain) Qty: 14 0RF cyclobenzaprine 10 mg tablet 10 mg PO Q8H PRN (Reason: Muscle spasm) Qty: 14 0RF No Action folic acid 1 mg tablet 1 mg PO QAM Qty: 30 11RF (DME) 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 meter [FreeStyle Lite Meter] Kit See Rx Instructions miscellaneous .MEDSUPPLY Qty: 1 0RF Rx Instructions: As directed hydroxychloroquine 200 mg tablet 200 mg PO BID Qty: 60 5RF methotrexate sodium 2.5 mg tablet 25 mg PO QWEEK Qty: 40 3RF (DME) FreeStyle Lite Strips Strip See Rx Instructions .ROUTE .MEDSUPPLY Qty: 150 11RF Rx Instructions: 4 times a day atorvastatin 10 mg tablet 10 mg PO BEDTIME 90 Days Qty: 90 1RF cholecalciferol (vitamin D3) 50 mcg (2,000 unit) capsule 50 mcg PO DAILY Qty: 90 1RF (DME) lancets [TRUEplus Lancets] 33 gauge misc See Rx Instructions .ROUTE .MEDSUPPLY Qty: 120 11RF Rx Instructions: 4 times a day Trulicity 0.75 mg/0.5 mL pen injector 0.75 mg subcut QWEEK 30 Days Qty: 2.5 4RF acarbose 50 mg tablet 50 mg PO TID 30 Days Qty: 90 5RF Rx Instructions: To take with acarbose 25mg for total dose of 75mg tid with meals. calcium 600 mg Capsule 600 mg PO 0RF diltiazem HCl 360 mg Capsule,Extended Release 24 Hr 360 mg PO DAILY 0RF clonidine HCl 0.1 mg Tablet 0.1 mg PO BID 0RF cetirizine 10 mg Tablet 10 mg PO DAILY 0RF furosemide 20 mg Tablet 20 mg PO DAILY 0RF duloxetine 20 mg Capsule,Delayed Release(Dr/Ec) 20 mg PO BID 0RF aspirin 81 mg tablet,delayed release (DR/EC) 81 mg PO DAILY 0RF diphenhydramine HCl [Banophen] 25 mg tablet 25 mg PO BEDTIME PRN (Reason: Sleep) 0RF docusate sodium [DOK] 100 mg capsule 100 mg PO DAILY 0RF lisinopril 20 mg tablet 40 mg PO DAILY 0RF cyclobenzaprine 5 mg tablet 5 mg PO BEDTIME PRN (Reason: muscle spasm) Qty: 7 0RF (DME) FreeStyle Control Solution See Rx Instructions .ROUTE .MEDSUPPLY Qty: 1 2RF Rx Instructions: Twice a month amitriptyline 10 mg tablet 10 mg PO BEDTIME 0RF bisacodyl [Alophen (bisacodyl)] 5 mg tablet,delayed release (DR/EC) 5 mg PO BEDTIME 0RF carvedilol 3.125 mg tablet 3.125 mg PO BID 0RF Rx Instructions: must administer with a meal/food acarbose 25 mg tablet 25 mg PO TID Qty: 30 6RF Rx Instructions: To take with acarbose 50mg for total of 75mg TID with meals. Referrals: Cyn Bosch MD [Primary Care Provider] - 2 days Print Language: Singaporean
[2021-07-12 17:07] LABS: INTERNATIONAL NORM RATIO 1.1 (0.9-1.1); Prothrombin Time 12.3 SEC (9.9-13.0)
[2021-07-12 17:15] LABS: Alanine Aminotransferase 14 U/L (0-31); Albumin Level 3.9 g/dL (3.5-5.0); Alkaline Phosphatase 123 U/L (39-117); Anion Gap 13 (12-20); Aspartate Amino Transferase 21 U/L (5-31); Bilirubin Total 0.3 mg/dL (0.0-1.0); Blood Urea Nitrogen 17 mg/dL (9-16); Calcium 10.1 mg/dL (8.4-10.2); Carbon Dioxide 26 mmol/L (22-29); Chloride 107 mmol/L (96-108); Creatinine Clr Calc Pharmacy 67.7; Estimated Glomerular Filt Rate > 60; Glucose Random 99 mg/dL (60-115); Magnesium 1.8 mg/dL (1.6-2.6); Potassium 3.6 mmol/L (3.3-5.1); Sodium 142 mmol/L (135-145); Total Protein 7.3 g/dL (6.5-8.0)
[2021-07-12 17:19] LABS: Troponin-I High Sensitivity 3.7 ng/L (<3.5-17.0)
[2021-07-12] MEDS: iohexoL 350 MG/ML 100 ML INFUS..BTL IV (18:12)
== END 2021-07-12 19:30 | disposition home or self-care (01) ==
PROVIDERS: Physician Assistant Medical; Emergency Provider Internal Medicine; PCP Internal Medicine
DX: M54.2 Cervicalgia (principal); R42 Dizziness and giddiness; E11.9 Type 2 diabetes mellitus without complications; I10 Essential (primary) hypertension; H53.8 Other visual disturbances; Z79.899 Other long term (current) drug therapy
CPT/HCPCS: 36415; 70496; 70498; 71046; 80053; 83735; 84484; 85025; 85610; 93005; 99284; 99291; Q9967

== ENCOUNTER 2021-07-24 15:24 | Outpatient (REF) | payer MEDICAID, SELFPAY ==
--- NOTE | ~2021-07-24 | MM_ITS ---
EXAMINATION: MM SCREENING DIGITAL BREAST TOMOSYNTHESIS, BILATERAL CLINICAL INFORMATION: Screening. Asymptomatic. The lifetime risk of breast cancer based on the Tyrer-Cuzick Model is 5%. COMPARISON: Mammography: 07/21/2020, 03/24/2019, 09/09/2018, 03/17/2018; ultrasound left breast 09/09/2018. TECHNIQUE: Digital breast tomosynthesis is performed in both the craniocaudal and mediolateral oblique views along with computer-aided detection (CAD). Synthesized 2D images are generated from the tomosynthesis. FINDINGS: There are scattered areas of fibroglandular density (ACR BI-RADS breast composition Category b). Right MLO view shows irregular increased attenuation mid upper breast likely summation artifact. Patient will be recalled for additional imaging. The remainder of the breasts show no significant changes from prior studies. There are no abnormal calcifications. The axilla and skin contours are unremarkable. MM/MM tomosynthesis screening BI IMPRESSION: Right: -Asymmetric density mid upper right breast on MLO view, likely summation artifact. Left: -No mammographic evidence of malignancy. ASSESSMENT: BI-RADS 0: Incomplete - Need Additional Imaging Evaluation RECOMMENDATION: 1. Additional views of the right breast (spot MLO, standard ML). 2. Targeted ultrasound if warranted after review of the additional views. 3. Radiology department staff will contact the patient for additional imaging. This patient's information was entered into a reminder system with a target due date for their next mammogram.
== END 2021-07-24 15:25 | disposition home or self-care (01) ==
LOC: HO.MAMMO 15:24
PROVIDERS: Visit Provider Internal Medicine
DX: Z12.31 Encounter for screening mammogram for malignant neoplasm of breast (principal)
CPT/HCPCS: 77063; 77067

== ENCOUNTER 2021-07-28 08:52 | Outpatient (REF) | payer MEDICAID, SELFPAY ==
--- NOTE | ~2021-07-28 | MM_ITS ---
EXAMINATION: MM DIAGNOSTIC DIGITAL BREAST TOMOSYNTHESIS, RIGHT CLINICAL INFORMATION: Right breast asymmetric density COMPARISON: Mammography: July 24, 2021 and studies dating back to December 24, 2014 TECHNIQUE: Digital breast tomosynthesis is performed. 2D images are generated from the tomosynthesis. The following views are obtained: 90 degree mediolateral view and spot compression mediolateral oblique view. FINDINGS: There are scattered areas of fibroglandular density (ACR BI-RADS breast composition Category b). Additional views show no significant mass, architectural abnormality, or abnormal calcifications. The question region of architectural distortion is seen to represent superimposition of fibroglandular tissue. Results are discussed with the patient at time of visit. MM/MM tomosynthesis added views R IMPRESSION: Abnormal density right breast was related to superimposition of fibroglandular tissue with no persistent abnormality appreciated. ASSESSMENT: BI-RADS 1: Negative RECOMMENDATION: Routine annual mammography screening due in 12 months. This patient's information was entered into a reminder system with a target due date for their next mammogram.
== END 2021-07-28 08:53 | disposition home or self-care (01) ==
LOC: HO.MAMMO 08:52
PROVIDERS: Visit Provider Internal Medicine
DX: R92.2 Inconclusive mammogram (principal)
CPT/HCPCS: 77061; 77065

== ENCOUNTER 2021-10-02 15:26 | Outpatient (REF) | payer MEDICAID, SELFPAY ==
--- NOTE | ~2021-10-02 | XR_ITS ---
EXAMINATION: XR LUMBOSACRAL SPINE WITH OBLIQUES CLINICAL INFORMATION: Low back pain COMPARISON: Previous x-ray June 2012 and lumbar spine MRI March 1999 TECHNIQUE: AP, both oblique, and lateral views of the lumbar spine. Lateral view of the lumbosacral junction. FINDINGS: There is curvature of the lumbar spine to the left. Bone alignment is otherwise normal. No fracture or dislocation. There is degenerative spondylosis greatest at L3-L4, T11-T12 and T12-L1. There is degenerative disc disease at L3-L4 and L5-S1. There is lower lumbar spine facet arthritis. No pars defect is seen. XR/XR lumbar spine 4V min IMPRESSION: Scoliosis and degenerative changes.
== END 2021-10-02 15:27 | disposition home or self-care (01) ==
LOC: HO.XRAY 15:26
PROVIDERS: PCP Internal Medicine; Visit Provider Emergency Medicine
DX: M54.42 Lumbago with sciatica, left side (principal)
CPT/HCPCS: 72110

== ENCOUNTER 2022-04-11 14:39 | Emergency (ER) | payer MEDICAID, SELFPAY ==
--- NOTE | ~2022-04-11 | XR_ITS ---
EXAMINATION: CR X-RAY FOOT AND ANKLE RIGHT CLINICAL INFORMATION: Right foot and ankle pain and swelling. COMPARISON: Right ankle radiographs dated 09/19/2020. TECHNIQUE: 3 views each of the right foot and ankle were obtained. End indicating arrow points to the lateral malleolus. FINDINGS: Mild soft tissue swelling is seen laterally. The ankle joint and mortise are intact. The tibiotalar joint space is unremarkable. The tarsal bones are normally aligned. Very small plantar and retrocalcaneal spurs are seen. The metatarsals and phalanges are intact. XR/XR ankle RT 2V IMPRESSION: 1. Mild soft tissue swelling laterally without acute underlying osseous abnormality. 2. Very small degenerative calcaneal spurs.
--- NOTE | ~2022-04-11 | CT_ITS ---
EXAMINATION: CT HEAD WITHOUT CONTRAST CLINICAL INFORMATION: Headache, vision changes. COMPARISON: Correlation CT head 07/12/2021 TECHNIQUE: Contiguous axial imaging was performed from the skull base to vertex without intravenous administration of contrast. This CT examination was performed using dose optimization techniques as appropriate, variously including the following: *Automated exposure control *Adjustment of mA and/or kV according to patient size (this includes techniques or standardized protocols for targeted exams where dose is matched to indication/reason for exam; i.e. extremities or head) *Use of iterative reconstruction technique DLP: 642 mGy-cm FINDINGS: There is no evidence of acute intracranial hemorrhage or territorial infarction. No abnormal mass effect or midline shift is seen. Land to white matter differentiation is well preserved. No extra-axial fluid collections are identified. Ventricles are normal in caliber. There is patchy periventricular and subcortical white matter hypoattenuation, most likely representing microangiopathic disease. No acute calvarial fracture.. Paranasal sinuses and mastoid air cells are well-aerated. CT/CT head/brain wo IV con IMPRESSION: No CT evidence of acute intracranial hemorrhage or edematous territorial infarction. Etiology of the patient's symptoms has not been determined by noncontrast CT. Further evaluation with CTA head as clinically warranted.
--- NOTE | ~2022-04-11 | XR_ITS ---
EXAMINATION: CR X-RAY FOOT AND ANKLE RIGHT CLINICAL INFORMATION: Right foot and ankle pain and swelling. COMPARISON: Right ankle radiographs dated 09/19/2020. TECHNIQUE: 3 views each of the right foot and ankle were obtained. End indicating arrow points to the lateral malleolus. FINDINGS: Mild soft tissue swelling is seen laterally. The ankle joint and mortise are intact. The tibiotalar joint space is unremarkable. The tarsal bones are normally aligned. Very small plantar and retrocalcaneal spurs are seen. The metatarsals and phalanges are intact. XR/XR foot RT 2V IMPRESSION: 1. Mild soft tissue swelling laterally without acute underlying osseous abnormality. 2. Very small degenerative calcaneal spurs.
--- NOTE | ~2022-04-11 | XR_ITS ---
EXAMINATION: XR CHEST CLINICAL INFORMATION: Hypertension. COMPARISON: Chest radiographs dated 07/12/2021. TECHNIQUE: 2 views of the chest were obtained. FINDINGS: No significant abnormality is noted involving the heart, lungs, mediastinum, bony thorax or soft tissues. XR/XR chest 2V IMPRESSION: No acute cardiopulmonary process.
[2022-04-11 14:44] VITALS: BP 204/114; PULSE 82; RESP 17; TEMP 36.6; O2SAT 98; BMI 28.0
--- NOTE | 2022-04-11 14:48 | ECG_ITS ---
Test Reason : symptomatic hypertension Blood Pressure : / mmHG Vent. Rate : 074 BPM Atrial Rate : 074 BPM P-R Int : 160 ms QRS Dur : 094 ms QT Int : 406 ms P-R-T Axes : 019 -24 075 degrees QTc Int : 450 ms Normal sinus rhythm Moderate voltage criteria for LVH, may be normal variant ( R in aVL , Sha product ) Borderline ECG When compared with ECG of 12-JUL-2021 16:36, No significant change was found Referred By: Lashay Leslie Electronically Signed By:JANES JEFFREY MD
--- NOTE | 2022-04-11 14:48 | ED_ITS ---
HPI - General Adult General Chief complaint: General Medical <Lashay Leslie NP - Last Filed: 04/11/22 14:50> Stated complaint: high blood pressure <aLshay Leslie NP - Last Filed: 04/11/22 14:50> Time Seen by Provider: 04/11/22 15:58 <Lashay Leslie NP - Last Filed: 04/11/22 14:50> Source: patient <Roslyn Andrew NP - Last Filed: 04/12/22 01:37> Mode of arrival: ambulatory <Roslyn Andrew NP - Last Filed: 04/12/22 01:37> Limitations: no limitations <Roslyn Andrew NP - Last Filed: 04/12/22 01:37> History of Present Illness HPI narrative: 61-year-old female presents for 3 days of right foot and ankle pain, and elevated blood pressure with blurred vision and headache. Patient was referred to the emergency department from her primary care's office. <Roslyn Andrew NP - Last Filed: 04/12/22 01:37> Onset (ago): day(s) (3) <Roslyn Andrew NP - Last Filed: 04/12/22 01:37> Location: head, right and lower extremity <Roslyn Andrew NP - Last Filed: 04/12/22 01:37> Radiation: non-radiation <Roslyn Andrew NP - Last Filed: 04/12/22 01:37> Severity: moderate <Roslyn Andrew NP - Last Filed: 04/12/22 01:37> Quality: aching <Roslyn Andrew NP - Last Filed: 04/12/22 01:37> Pain Consistency: constant <Roslyn Andrew NP - Last Filed: 04/12/22 01:37> Relieving factors: rest <Roslyn Andrew NP - Last Filed: 04/12/22 01:37> Exacerbating factors: movement and other (Palpation) <Roslyn Andrew NP - Last Filed: 04/12/22 01:37> Associated symptoms: headaches and other (Blurred vision) <Roslyn Andrew NP - Last Filed: 04/12/22 01:37> Treatments prior to arrival: none <Roslyn Andrew MEDIA RELATIONS INTERN - Last Filed: 04/12/22 01:37> Related Data Home medications: Home Medications Medication Instructions Recorded Confirmed calcium 600 mg capsule 600 mg PO 12/08/19 12/21/20 cetirizine 10 mg tablet 10 mg PO DAILY 12/08/19 12/21/20 clonidine HCl 0.1 mg tablet 0.1 mg PO BID 12/08/19 12/21/20 diltiazem HCl 360 mg capsule,24 360 mg PO DAILY 12/08/19 12/21/20 hr,extended release duloxetine 20 mg capsule,delayed 20 mg PO BID 12/08/19 12/21/20 release furosemide 20 mg tablet 20 mg PO DAILY 12/08/19 12/21/20 amitriptyline 10 mg tablet 10 mg PO BEDTIME 05/12/20 12/21/20 aspirin 81 mg tablet,delayed 81 mg PO DAILY 05/12/20 12/21/20 release diphenhydramine HCl 25 mg tablet 25 mg PO BEDTIME PRN Sleep 05/12/20 12/21/20 (Banophen) docusate sodium 100 mg capsule 100 mg PO DAILY 05/12/20 12/21/20 (DOK) lisinopril 20 mg tablet 40 mg PO DAILY 05/12/20 12/21/20 carvedilol 3.125 mg tablet 3.125 mg PO BID 11/29/20 05/04/21 bisacodyl 5 mg tablet,delayed 5 mg PO BEDTIME 12/21/20 12/21/20 release (Alophen (bisacodyl)) Previous Rx's Medication Instructions Recorded blood glucose control high and low #1 ea 03/28/20 solution (FreeStyle Control solution) folic acid 1 mg tablet 1 mg PO QAM #30 tabs 08/02/20 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 meter (FreeStyle #1 ea 09/09/20 Lite Meter kit) hydroxychloroquine 200 mg tablet 200 mg PO BID #60 tabs 09/30/20 methotrexate sodium 2.5 mg tablet 25 mg PO QWEEK #40 tabs 10/27/20 cyclobenzaprine 5 mg tablet 5 mg PO BEDTIME PRN muscle spasm 01/21/21 #7 tabs blood sugar diagnostic (FreeStyle #150 ea 02/10/21 Lite Strips) lancets 33 gauge (TRUEplus Lancets) #120 ea 06/20/21 cyclobenzaprine 10 mg tablet 10 mg PO Q8H PRN Muscle spasm #14 07/12/21 tabs naproxen 500 mg tablet 500 mg PO BID PRN pain #14 tabs 07/12/21 acarbose 25 mg tablet 25 mg PO TID #30 tabs 09/21/21 atorvastatin 10 mg tablet 10 mg PO BEDTIME 90 days #90 tabs 11/13/21 cholecalciferol (vitamin D3) 50 50 mcg PO DAILY #90 caps 12/12/21 mcg (2,000 unit) capsule dulaglutide 0.75 mg/0.5 mL 0.75 mg (0.5 mL) subcut QWEEK 30 12/20/21 subcutaneous pen injector days #2.5 mL (Trulicity) acarbose 50 mg tablet 50 mg PO TID 30 days #90 tabs 01/09/22 <Lashay Leslie NP - Last Filed: 04/11/22 14:50> Allergies/adverse reactions: Allergies Allergy/AdvReac Type Severity Reaction Status Date / Time codeine [Codeine] Allergy Mild BURNING IN Verified 06/26/21 19:15 CHEST, chest pain sulfamethoxazole Allergy Mild ITCH,RASH Verified 06/26/21 19:15 [From Bactrim] <Lashay Leslie NP - Last Filed: 04/11/22 14:50> Review of Systems Review of Systems: Constitutional: No Fever, No Chills Cardiovascular: No Chest Pain, No SOB Respiratory: No Cough, No Dyspnea Gastrointestinal: No Nausea, No Vomiting, No Diarrhea, No abdominal Pain Genitourinary: No Dysuria, No Hematuria Musculoskeletal: positive right foot and ankle pain, No Myalgias, No Joint Swelling Skin: No Skin lacerations, No rash Neuro: No Weakness, No Numbness, No Paresthesias, No Loss of Consciousness, No Dizziness, positive Headache, positive blurred vision <Roslyn Andrew NP - Last Filed: 04/12/22 01:37> Yes all other systems are reviewed and are negative <Roslyn Andrew NP - Last Filed: 04/12/22 01:37> FORMERLY [facility], [facility] Past Medical History Attestation statement: The following information was validated with the patient. 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 SOY (obstructive sleep apnea) SOY (obstructive sleep apnea) Osteoarthritis Rheumatoid arthritis 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 rheumatoid arthritis Sicca syndrome Sjogrens syndrome Sleep apnea Vitamin D deficiency <Lashay Leslie NP - Last Filed: 04/11/22 14:50> Surgical History: Surgical History History of bladder suspension procedure History of esophagogastroduodenoscopy (EGD) History of laryngoscopy History of repair of left rotator cuff Hx of colonoscopy Hx of dilation and curettage Hx of hemorrhoidectomy Hx of tubal ligation <Lashay Leslie NP - Last Filed: 04/11/22 14:50> Family History Family History: Family History Father Cancer Mother Heart disease Diabetes <Lashay Leslie NP - Last Filed: 04/11/22 14:50> Social History Social History: Social History Household Members: Children and Other Household Members Other:: daughter, grandkids Are you a primary career development counselor to a significant other at home: No Do you presently have visiting nurse or other home services: No Alcohol intake: never Patient Tobacco Use Status: Never used Tobacco e-Cigarette/Vaping Use: Never Used Second Hand Smoke Exposure: No Advance Directives: No Advance Directives Information Provided: Yes Patient : No 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al status: disabled 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 <Lashay Leslie NP - Last Filed: 04/11/22 14:50> Physical Exam ED Vital Signs: Vital Signs - 24 hr 04/11/22 14:44 04/11/22 15:53 Temperature 98 F 97.4 F Pulse Rate 82 82 Respiratory Rate 17 16 Blood Pressure 204/114 H 179/105 H Pulse Oximetry 98 99 Oxygen Delivery Method Room Air Room Air BMI result Body Mass Index 28.0 <Lashay LaneDEREK ivey - Last Filed: 04/11/22 14:50> Vital Signs - 24 hr 04/11/22 14:44 04/11/22 15:53 Temperature 98 F 97.4 F Pulse Rate 82 82 Respiratory Rate 17 16 Blood Pressure 204/114 H 179/105 H Pulse Oximetry 98 99 Oxygen Delivery Method Room Air Room Air BMI result Body Mass Index 28.0 <Roslyn Andrew NP - Last Filed: 04/12/22 01:37> Appearance: Alert. Oriented X3. No acute distress. Eyes: Pupils equal, round and reactive to light. EOMI. Sclera nonicteric. ENT: Pharynx normal. Moist mucous membranes. Neck: Normal inspection. Neck supple. CVS: Normal heart rate and rhythm. Pulses normal. Respiratory: No respiratory distress. Breath sounds normal. Abdomen: Soft and nontender. Skin: Skin warm and dry. Normal skin color. Normal skin turgor. Extremities: Swelling to the right lateral malleolar process. Full range of motion. Gait is balanced and coordinated. Neuro: No motor deficit. No sensory deficit. Cranial nerves 2-12 intact. <Roslyn Andrew NP - Last Filed: 04/12/22 01:37> NIH Stroke Scale Level of Consciousness: Alert <Roslyn Andrew NP - Last Filed: 04/12/22 01:37> Level of Consciousness Questions: Answers both questions correctly <Roslyn Andrew NP - Last Filed: 04/12/22 01:37> Level of Consciousness Commands: Performs both tasks correctly <Roslyn Andrew NP - Last Filed: 04/12/22 01:37> Best Gaze: Normal <Roslyn Andrew NP - Last Filed: 04/12/22 01:37> Visual: No visual loss <Roslyn Andrew NP - Last Filed: 04/12/22 01:37> Facial Palsy: Normal <Candy Kamran, MEDIA RELATIONS INTERN - Last Filed: 04/12/22 01:37> Motor Arm (Right): No drift <Candy Kamran, MEDIA RELATIONS INTERN - Last Filed: 04/12/22 01:37> Motor Arm (Left): No drift <Candy Kamran, MEDIA RELATIONS INTERN - Last Filed: 04/12/22 01:37> Motor Leg (Right): No drift <Candy Kamran, MEDIA RELATIONS INTERN - Last Filed: 04/12/22 01:37> Motor Leg (Left): No drift <Candy Kamran, MEDIA RELATIONS INTERN - Last Filed: 04/12/22 01:37> Limb Ataxia: Absent <Candy Kamran, MEDIA RELATIONS INTERN - Last Filed: 04/12/22 01:37> Sensory: Normal <Candy Kamran, MEDIA RELATIONS INTERN - Last Filed: 04/12/22 01:37> Best Language: No aphasia <Candy Kamran, MEDIA RELATIONS INTERN - Last Filed: 04/12/22 01:37> Dysarthia: Normal <Candy Kamran MEDIA RELATIONS INTERN - Last Filed: 04/12/22 01:37> Extinction and Inattention: No abnormality <Candy Kamran, MEDIA RELATIONS INTERN - Last Filed: 04/12/22 01:37> Score: 0 <Candy Kamran, MEDIA RELATIONS INTERN - Last Filed: 04/12/22 01:37> Course Course Course Narrative: This is a rapid medical exam. Defer additional HPI, ROS, PE department provider. 61-year-old female with history of diabetes, hypertension presents from her primary care office with complaints of high blood pressure. Patient reports she was seen at her primary care doctor for right ankle and foot s welling, redness and pain for the last few weeks. No known injury or trauma. While she was there she was noted incidentally to have high blood pressure. After she was aware that her blood pressure was high she started complaining of blurry vision and headache. Patient reports she did take her blood pressure medication. Hypertensive in triage. Will obtain EKG, labs, x-ray of chest/ankle/foot. <Lashay Leslie MEDIA RELATIONS INTERN - Last Filed: 04/11/22 14:50> This is a rapid medical exam. Defer additional HPI, ROS, PE department provider. 61-year-old female with history of diabetes, hypertension presents from her primary care office with complaints of high blood pressure. Patient reports she was seen at her primary care doctor for right ankle and foot swelling, redness and pain for the last few weeks. No known injury or trauma. While she was there she was noted incidentally to have high blood pressure. After she was aware that her blood pressure was high she started complaining of blurry vision and headache. Patient reports she did take her blood pressure medication. Hypertensive in triage. Will obtain EKG, labs, x-ray of chest/ankle/foot. 61-year-old female presents for right foot and ankle pain for the past 3 days without trauma. Was evaluated by primary care physician who noted high blood pressure, and the patient reported a headache and blurred vision. NIH stroke scale 0. Gilmer coma scale 15. Labs and imaging done while patient was in the emergency department waiting room. Negative for acute findings requiring emergent intervention. X-rays indicate some swelling to the malleolar process. Will apply Sal wrap. Patient is ambulatory. Patient is still concerned about blurred vision and headache. Will order CT scan of the head. No vertebral tenderness or step-offs. No nuchal rigidity. No mastoid tenderness. No meningeal signs. Labs indicate hypokalemia at 3.1, repleted with [address] scan head negative for acute findings requiring emergent intervention. Outpatient follow-up primary care physician. Patient verbalized understanding of and agrees plan of care discharge home. Verbalized understanding of signs and symptoms indicating need for emergent intervention. <Roslyn Andrew, MEDIA RELATIONS INTERN - Last Filed: 04/12/22 01:37> Medications Administered Discontinued Medications Generic Name Dose Route Start Last Admin Trade Name Freq PRN Reason Stop Dose Admin Potassium Chloride 40 meq 04/11/22 16:16 04/11/22 16:31 Potassium Chloride Packet 20 Meq Packet PO 04/11/22 16:17 40 meq ONCE ONE Administration <Lashay Leslie NP - Last Filed: 04/11/22 14:50> Medications Administered Discontinued Medications Generic Name Dose Route Start Last Admin Trade Name Freq PRN Reason Stop Dose Admin Potassium Chloride 40 meq 04/11/22 16:16 04/11/22 16:31 Potassium Chloride Packet 20 Meq Packet PO 04/11/22 16:17 40 meq ONCE ONE Administration <Roslyn Andrew NP - Last Filed: 04/12/22 01:37> Medical Decision Making Differential Diagnosis Differential Diagnoses: The differential diagnosis associated with the presentation includes <Roslyn SegoviaDEREK arreaga - Last Filed: 04/12/22 01:37> CVA, fracture, dislocation, effusion, migraine <Roslyn Andrew MEDIA RELATIONS INTERN - Last Filed: 04/12/22 01:37> Lab Data MDM Lab Attestation statement: I reviewed the patient's lab results. <Roslyn CrowDEREK pastor - Last Filed: 04/12/22 01:37> Result Diagrams: 04/11/22 15:11 04/11/22 15:11 <Lashay Leslie, MEDIA RELATIONS INTERN - Last Filed: 04/11/22 14:50> Labs: Lab Results 04/11/22 04/11/22 04/11/22 Range/Units 15:11 15:11 15:11 WBC 7.0 (4.8-10.8) X10*3/uL RBC 4.61 (4.20-5.50) X10*6/uL Hgb 13.4 (12.0-16.0) g/dl Hct 39.4 (37.0-47.0) % MCV 85.5 (80.0-98.0) fL MCH 29.1 (27.0-33.0) pg MCHC 34.0 (31.0-35.0) g/dl RDW 13.3 (11.0-16.0) % Plt Count 265 (160-400) X10*3/uL MPV 9.6 (9.4-12.3) fL Immature Gran % (Auto) 0.1 (0.0-0.4) % Neut % (Auto) 36.3 L (45-73) % Lymph % (Auto) 33.9 (20-40) % Robeson % (Auto) 12.5 H (2-11) % Eos % (Auto) 16.5 H (0-4) % Baso % (Auto) 0.7 (0-2) % Lymph # (Auto) 2.4 (1.2-4.9) X10*3/uL Robeson # (Auto) 0.9 (0.1-1.2) X10*3/uL Eos # (Auto) 1.2 H (0.0-0.4) X10*3/uL Baso # (Auto) 0.1 (0.0-0.2) X10*3/uL Abs Immat Gran (auto) 0.01 (0.00-0.03) X10*3/uL Absolute Neuts (auto) 2.5 (2.0-8.3) x10*3/uL Absolute Nucleated RBC 0.000 (0.0-0.012) X10*3/uL Nucleated RBC % (auto) 0.0 (0.0-0.2) /100WBC Sodium 144 (135-145) mmol/L Potassium 3.1 L (3.3-5.1) mmol/L Chloride 106 (96-108) mmol/L Carbon Dioxide 27 (22-29) mmol/L Anion Gap 14 (12-20) BUN 18 H (9-16) mg/dL Creatinine 0.79 (0.5-1.4) mg/dL Estim Creat Clear Calc 66.5 Estimated GFR > 60 Random Glucose 110 (60-115) mg/dL Calcium 9.5 (8.4-10.2) mg/dL Total Bilirubin 0.4 (0.0-1.0) mg/dL Direct Bilirubin < 0.2 (0.0-0.5) mg/dL AST 19 (5-31) U/L ALT 16 (0-31) U/L Alkaline Phosphatase 128 H (39-117) U/L Troponin I High Sens < 3.5 (<3.5-17.0) ng/L Total Protein 7.0 (6.5-8.0) g/dL Albumin 4.0 (3.5-5.0) g/dL <Lashay Leslie, MEDIA RELATIONS INTERN - Last Filed: 04/11/22 14:50> Lab Results 04/11/22 04/11/22 04/11/22 Range/Units 15:11 15:11 15:11 WBC 7.0 (4.8-10.8) X10*3/uL RBC 4.61 (4.20-5.50) X10*6/uL Hgb 13.4 (12.0-16.0) g/dl Hct 39.4 (37.0-47.0) % MCV 85.5 (80.0-98.0) fL MCH 29.1 (27.0-33.0) pg MCHC 34.0 (31.0-35.0) g/dl RDW 13.3 (11.0-16.0) % Plt Count 265 (160-400) X10*3/uL MPV 9.6 (9.4-12.3) fL Immature Gran % (Auto) 0.1 (0.0-0.4) % Neut % (Auto) 36.3 L (45-73) % Lymph % (Auto) 33.9 (20-40) % Robeson % (Auto) 12.5 H (2-11) % Eos % (Auto) 16.5 H (0-4) % Baso % (Auto) 0.7 (0-2) % Lymph # (Auto) 2.4 (1.2-4.9) X10*3/uL Robeson # (Auto) 0.9 (0.1-1.2) X10*3/uL Eos # (Auto) 1.2 H (0.0-0.4) X10*3/uL Baso # (Auto) 0.1 (0.0-0.2) X10*3/uL Abs Immat Gran (auto) 0.01 (0.00-0.03) X10*3/uL Absolute Neuts (auto) 2.5 (2.0-8.3) x10*3/uL Absolute Nucleated RBC 0.000 (0.0-0.012) X10*3/uL Nucleated RBC % (auto) 0.0 (0.0-0.2) /100WBC Sodium 144 (135-145) mmol/L Potassium 3.1 L (3.3-5.1) mmol/L Chloride 106 (96-108) mmol/L Carbon Dioxide 27 (22-29) mmol/L Anion Gap 14 (12-20) BUN 18 H (9-16) mg/dL Creatinine 0.79 (0.5-1.4) mg/dL Estim Creat Clear Calc 66.5 Estimated GFR > 60 Random Glucose 110 (60-115) mg/dL Calcium 9.5 (8.4-10.2) mg/dL Total Bilirubin 0.4 (0.0-1.0) mg/dL Direct Bilirubin < 0.2 (0.0-0.5) mg/dL AST 19 (5-31) U/L ALT 16 (0-31) U/L Alkaline Phosphatase 128 H (39-117) U/L Troponin I High Sens < 3.5 (<3.5-17.0) ng/L Total Protein 7.0 (6.5-8.0) g/dL Albumin 4.0 (3.5-5.0) g/dL <Roslyn Andrew NP - Last Filed: 04/12/22 01:37> Independent Interpretation I performed an independent interpretation of an: EKG and Plain X-Ray <Roslyn Andrew NP - Last Filed: 04/12/22 01:37> Interpretation: Normal sinus rhythm Moderate voltage criteria for LVH, may be normal variant ( R in aVL , Sha product ) Borderline ECG When compared with ECG of 12-JUL-2021 16:36, No significant change was found Vent. rate 74 BPM IL interval 160 ms QRS duration 94 ms QT/QTc 406/450 ms P-R-T axes -24 75 11-APR-2022 15:05:13 <Roslyn Andrew NP - Last Filed: 04/12/22 01:37> Radiology Impression Discussion of test interpretation with radiology: I have reviewed the radiologist's reading. <Roslyn Andrew NP - Last Filed: 04/12/22 01:37> Radiologist Impression: EXAMINATION: XR CHEST CLINICAL INFORMATION: Hypertension. COMPARISON: Chest radiographs dated 07/12/2021. TECHNIQUE: 2 views of the chest were obtained. FINDINGS: No significant abnormality is noted involving the heart, lungs, mediastinum, bony thorax or soft tissues. XR/XR chest 2V IMPRESSION: No acute cardiopulmonary process. EXAMINATION: CR X-RAY FOOT AND ANKLE RIGHT CLINICAL INFORMATION: Right foot and ankle pain and swelling.? COMPARISON: Right ankle radiographs dated 09/19/2020.? TECHNIQUE: 3 views each of the right foot and ankle were obtained. End indicating arrow points to the lateral malleolus. FINDINGS: Mild soft tissue swelling is seen laterally. The ankle joint and mortise are intact. The tibiotalar joint space is unremarkable. The tarsal bones are normally aligned. Very small plantar and retrocalcaneal spurs are seen. The metatarsals and phalanges are intact.? XR/XR foot RT 2V IMPRESSION: 1.? Mild soft tissue swelling laterally without acute underlying osseous abnormality. 2.? Very small degenerative calcaneal spurs. FINDINGS: There is no evidence of acute intracranial hemorrhage or territorial infarction. No abnormal mass effect or midline shift is seen. Land to white matter differentiation is well preserved. No extra-axial fluid collections are identified. Ventricles are normal in caliber. There is patchy periventricular and subcortical white matter hypoattenuation, most likely representing microangiopathic disease. No acute calvarial fracture.. Paranasal sinuses and mastoid air cells are well-aerated. ? CT/CT head/brain wo IV con IMPRESSION: No CT evidence of acute intracranial hemorrhage or edematous territorial infarction. ? Etiology of the patient's symptoms has not been determined by noncontrast CT. Further evaluation with CTA head as clinically warranted. ? <Roslyn Andrew NP - Last Filed: 04/12/22 01:37> External Record Review External record reviewed: Outpatient record and Prior outpatient labs <DEREK Gaitan Last Filed: 04/12/22 01:37> Chronic Conditions Patient?s care impacted by: Diabetes and Hypertension <DEREK Gaitan Last Filed: 04/12/22 0 1:37> Discharge Plan Discharge Clinical Impression: Acute hypokalemia, Hypertension, Pain in right ankle <DEREK Garcia Last Filed: 04/11/22 14:50> Patient Disposition: Home, Self-Care <Lashay Leslie NP - Last Filed: 04/11/22 14:50> Instructions: Hypokalemia (ED), Hypertension (ED), Arthralgia (ED) <DEREK Garcia Last Filed: 04/11/22 14:50> Additional Instructions: Trujillo m?dico de atenci?n primaria lo envi? para krystle evaluaci?n de dolor en el pie y tobillo derechos e hipertensi?n con dolor de roberta y mareos. Las radiograf?as de trujillo pie y tobillo son negativas para hallazgos agudos que requieren krystle intervenci?n de emergencia. Utilice Sal wrap seg?n sea necesario para mayor comodidad. Coloque hielo y eleve la extremidad para ayudar a reducir el dolor y la hinchaz?n. La tomograf?a computarizada de trujillo roberta es negativa para accidente cerebrovascular y hallazgos emergentes. Jamel un seguimiento con el m?dico de atenci?n primaria para la evaluaci?n de medicamentos para la presi?n arterial. Es posible que deba cambiar blanquita medicamentos o aumentar la dosis de blanquita medicamentos para la presi?n arterial. Travon por elegir wing departamento de emergencias para trujillo evaluaci?n. Por favor, jamel un seguimiento con el m?dico de atenci?n primaria seg?n sea necesario. Regrese al departamento de emergencias por cualquier s?ntoma nuevo, preocupante o que empeore. You were sent in by your primary care physician for evaluation of right foot and ankle pain and hypertension with headache and dizziness. X-rays of your foot and ankle are negative for acute findings requiring emergent intervention. Please use Sal wrap as needed for comfort. Rest ice and elevate the extremity to help reduce pain and swelling. CT scan of your head is negative for stroke and emergent findings. Please follow-up with primary care physician for blood pressure medication evaluation. You may need to change your medications or increase the dosage on your blood pressure medications. Thank you for choosing this emergency department for evaluation. Please follow-up with primary care physician as needed. Return to the emergency department for any new, concerning, or worsening symptoms. <Lashay Leslie NP - Last Filed: 04/11/22 14:50> Prescriptions: No Action folic acid 1 mg tablet 1 mg PO QAM Qty: 30 11RF (DME) 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 meter [FreeStyle Lite Meter] Kit See Rx Instructions miscellaneous .MEDSUPPLY Qty: 1 0RF Rx Instructions: As directed hydroxychloroquine 200 mg tablet 200 mg PO BID Qty: 60 5RF methotrexate sodium 2.5 mg tablet 25 mg PO QWEEK Qty: 40 3RF (DME) FreeStyle Lite Strips Strip See Rx Instructions .ROUTE .MEDSUPPLY Qty: 150 11RF Rx Instructions: 4 times a day (DME) lancets [TRUEplus Lancets] 33 gauge misc See Rx Instructions .ROUTE .MEDSUPPLY Qty: 120 11RF Rx Instructions: 4 times a day acarbose 25 mg tablet 25 mg PO TID Qty: 30 6RF Rx Instructions: To take with acarbose 50mg for total of 75mg TID with meals. atorvastatin 10 mg tablet 10 mg PO BEDTIME 90 Days Qty: 90 0RF cholecalciferol (vitamin D3) 50 mcg (2,000 unit) capsule 50 mcg PO DAILY Qty: 90 0RF Trulicity 0.75 mg/0.5 mL pen injector 0.75 mg subcut QWEEK 30 Days Qty: 2.5 2RF acarbose 50 mg tablet 50 mg PO TID 30 Days Qty: 90 1RF Rx Instructions: To take with acarbose 25mg for total dose of 75mg tid with meals. calcium 600 mg Capsule 600 mg PO diltiazem HCl 360 mg Capsule,Extended Release 24 Hr 360 mg PO DAILY clonidine HCl 0.1 mg Tablet 0.1 mg PO BID cetirizine 10 mg Tablet 10 mg PO DAILY furosemide 20 mg Tablet 20 mg PO DAILY duloxetine 20 mg Capsule,Delayed Release(Dr/Ec) 20 mg PO BID aspirin 81 mg tablet,delayed release (DR/EC) 81 mg PO DAILY diphenhydramine HCl [Banophen] 25 mg tablet 25 mg PO BEDTIME PRN (Reason: Sleep) docusate sodium [DOK] 100 mg capsule 100 mg PO DAILY lisinopril 20 mg tablet 40 mg PO DAILY cyclobenzaprine 5 mg tablet 5 mg PO BEDTIME PRN (Reason: muscle spasm) Qty: 7 0RF naproxen 500 mg tablet 500 mg PO BID PRN (Reason: pain) Qty: 14 0RF cyclobenzaprine 10 mg tablet 10 mg PO Q8H PRN (Reason: Muscle spasm) Qty: 14 0RF (DME) FreeStyle Control Solution See Rx Instructions .ROUTE .MEDSUPPLY Qty: 1 2RF Rx Instructions: Twice a month amitriptyline 10 mg tablet 10 mg PO BEDTIME bisacodyl [Alophen (bisacodyl)] 5 mg tablet,delayed release (DR/EC) 5 mg PO BEDTIME carvedilol 3.125 mg tablet 3.125 mg PO BID Rx Instructions: must administer with a meal/food <Lashay Leslie NP - Last Filed: 04/11/22 14:50> Interventions: ED Discharge Assessment Last Done: 04/11/22 19:02 <Lashay Leslie NP - Last Filed: 04/11/22 14:50> Discharge Date/Time: 04/11/22 19:03 <Lashay Leslie NP - Last Filed: 04/11/22 14:50>
[2022-04-11 15:16] LABS: MANUAL DIFF FLAG NO
[2022-04-11 15:18] LABS: Basophils Absolute Auto 0.1 X10*3/uL (0.0-0.2); Basophils Percent Auto 0.7 % (0-2); Eosinophils Absolute Auto 1.2 X10*3/uL (0.0-0.4); Eosinophils Percent Auto 16.5 % (0-4); Hematocrit 39.4 % (37.0-47.0); Hemoglobin 13.4 g/dl (12.0-16.0); Imm Gran Abs Auto 0.01 X10*3/uL (0.00-0.03); Imm Gran Pct Auto 0.1 % (0.0-0.4); Lymphocytes Absolute Auto 2.4 X10*3/uL (1.2-4.9); Lymphocytes Percent Auto 33.9 % (20-40); Mean Corpuscular Hemoglobin 29.1 pg (27.0-33.0); Mean Corpuscular Volume 85.5 fL (80.0-98.0); Mean Platelet Volume 9.6 fL (9.4-12.3); Monocytes Absolute Auto 0.9 X10*3/uL (0.1-1.2); Monocytes Percent Auto 12.5 % (2-11); Neutrophils Absolute Auto 2.5 x10*3/uL (2.0-8.3); Neutrophils Percent Auto 36.3 % (45-73); Platelet Count 265 X10*3/uL (160-400); Red Blood Count 4.61 X10*6/uL (4.20-5.50); Red Cell Distribution Width 13.3 % (11.0-16.0)
[2022-04-11 15:52] LABS: Troponin-I High Sensitivity < 3.5 ng/L (<3.5-17.0)
[2022-04-11 15:53] VITALS: BP 179/105; PULSE 82; RESP 16; TEMP 36.3; O2SAT 99
[2022-04-11 15:53] LABS: Alanine Aminotransferase 16 U/L (0-31); Alkaline Phosphatase 128 U/L (39-117); Anion Gap 14 (12-20); Aspartate Amino Transferase 19 U/L (5-31); Bilirubin Direct < 0.2 mg/dL (0.0-0.5); Bilirubin Total 0.4 mg/dL (0.0-1.0); Blood Urea Nitrogen 18 mg/dL (9-16); Calcium 9.5 mg/dL (8.4-10.2); Carbon Dioxide 27 mmol/L (22-29); Chloride 106 mmol/L (96-108); Creatinine Clr Calc Pharmacy 66.5; Estimated Glomerular Filt Rate > 60; Glucose Random 110 mg/dL (60-115); Potassium 3.1 mmol/L (3.3-5.1); Sodium 144 mmol/L (135-145)
--- NOTE | 2022-04-11 16:04 | PC.NURSE ---
Pt is resting on stretcher at this time, reports right ankle pain and high blood pressure. Pts blood pressure continues to be high upon evaluation by this RN. Pt reports no headache at this time
[2022-04-11] MEDS: Potassium Chloride Packet 20 MEQ PACKET 40 MEQ PO (16:31)
== END 2022-04-11 19:03 | disposition home or self-care (01) ==
PROVIDERS: Nurse Practitioner Family; Emergency Provider Emergency Medicine Emergency Medical Services; PCP Internal Medicine
DX: E87.6 Hypokalemia (principal); I10 Essential (primary) hypertension; M25.571 Pain in right ankle and joints of right foot; E11.9 Type 2 diabetes mellitus without complications; Z79.4 Long term (current) use of insulin; Z79.02 Long term (current) use of antithrombotics/antiplatelets; Z79.899 Other long term (current) drug therapy
CPT/HCPCS: 36415; 70450; 71046; 73600; 73620; 80048; 80076; 84484; 85025; 93005; 99284

== ENCOUNTER 2022-05-11 13:13 | Outpatient (REF) | payer MEDICAID, SELFPAY ==
--- NOTE | ~2022-05-11 | XR_ITS ---
EXAMINATION: XR ANKLE, RIGHT CLINICAL INFORMATION: Pain COMPARISON: 04/11/2022 TECHNIQUE: AP, lateral, and mortise views of the right ankle. FINDINGS: Subtle cortical irregularity of the distal lateral fibula. Mild adjacent soft tissue swelling. Remainder of the osseous structures appear intact. No significant degenerative changes. Tiny calcaneal spurs. XR/XR ankle RT 2V IMPRESSION: Subtle cortical irregularity of the distal lateral fibula. Recommend clinical correlation with point tenderness for possible minimally displaced fracture.
== END 2022-05-11 13:14 | disposition home or self-care (01) ==
LOC: HO.XRAY 13:13
PROVIDERS: Visit Provider Student in an Organized Health Care Education/Training Program
DX: M25.571 Pain in right ankle and joints of right foot (principal)
CPT/HCPCS: 73600

== ENCOUNTER 2022-10-04 09:11 | Outpatient (REF) | payer MEDICAID, SELFPAY ==
[2022-10-04 09:45] LABS: MANUAL DIFF FLAG NO
[2022-10-04 10:31] LABS: Basophils Absolute Auto 0.1 X10*3/uL (0.0-0.2); Basophils Percent Auto 0.8 % (0-2); Eosinophils Absolute Auto 0.9 X10*3/uL (0.0-0.4); Eosinophils Percent Auto 14.8 % (0-4); Hematocrit 39.8 % (37.0-47.0); Imm Gran Abs Auto 0.01 X10*3/uL (0.00-0.03); Imm Gran Pct Auto 0.2 % (0.0-0.4); Lymphocytes Absolute Auto 2.5 X10*3/uL (1.2-4.9); Lymphocytes Percent Auto 39.7 % (20-40); Mean Corpuscular HGB Conc 32.7 g/dl (31.0-35.0); Mean Corpuscular Hemoglobin 29.1 pg (27.0-33.0); Mean Corpuscular Volume 89.2 fL (80.0-98.0); Monocytes Absolute Auto 0.7 X10*3/uL (0.1-1.2); Monocytes Percent Auto 11.1 % (2-11); Neutrophils Absolute Auto 2.1 x10*3/uL (2.0-8.3); Neutrophils Percent Auto 33.4 % (45-73); Platelet Count 291 X10*3/uL (160-400); Red Blood Count 4.46 X10*6/uL (4.20-5.50); Red Cell Distribution Width 12.6 % (11.0-16.0); White Blood Count 6.2 X10*3/uL (4.8-10.8)
[2022-10-04 10:49] LABS: Estimated Average Glucose 189 mg/dL; Hemoglobin A1c % 8.2 %
[2022-10-04 11:15] LABS: Alanine Aminotransferase 15 U/L (0-31); Albumin Level 3.8 g/dL (3.5-5.0); Alkaline Phosphatase 113 U/L (39-117); Anion Gap 15 (12-20); Aspartate Amino Transferase 16 U/L (5-31); Bilirubin Total 0.3 mg/dL (0.0-1.0); Blood Urea Nitrogen 15 mg/dL (9-16); Calcium 9.3 mg/dL (8.4-10.2); Carbon Dioxide 24 mmol/L (22-29); Chloride 105 mmol/L (96-108); Cholesterol 169 mg/dL; Estimated Glomerular Filt Rate > 60; Glucose Random 190 mg/dL (60-115); HDL Cholesterol 36 mg/dL; LDL Cholesterol Calculated 69 mg/dl; Potassium 3.3 mmol/L (3.3-5.1); Sodium 141 mmol/L (135-145); Total Protein 7.9 g/dL (6.5-8.0); Triglycerides 324 mg/dL
[2022-10-04 11:27] LABS: HBc Num1 0.15 S/CO (0.00-0.79); HBsAGNum1 0.31 S/CO (0.00-0.99); HIV AB/AG Nonreactive (Nonreactive); HIV Num 1 0.05 S/CO (0.00-0.99); Hepatitis B Core Antibody Nonreactive (Nonreactive); Hepatitis B Surface Antigen Negative (Negative); ~Hepatitis B Surface Antibody NONREACTIVE (Nonreactive)
[2022-10-04 11:28] LABS: ~HepC Num1 0.09 S/CO (0.00-0.79); ~Hepatitis C Antibody Nonreactive (Nonreactive)
[2022-10-04 11:34] LABS: TSH reflex Free T4 0.76 uIU/mL (0.32-4.0); Vitamin D 25-OH Total 50.8 ng/mL (>30)
[2022-10-04 11:39] LABS: Vitamin B12 374 pg/mL (200-900)
[2022-10-04 12:54] LABS: Creatinine Urine 115.21 mg/dL
[2022-10-05 05:07] LABS: Syphilis Screen Nonreactive (Nonreactive)
== END 2022-10-04 09:12 | disposition home or self-care (01) ==
LOC: HO.LAB 09:11
PROVIDERS: PCP Student in an Organized Health Care Education/Training Program; Visit Provider Student in an Organized Health Care Education/Training Program
DX: Z00.00 Encounter for general adult medical examination without abnormal findings (principal); Z11.4 Encounter for screening for human immunodeficiency virus [HIV]; M17.0 Bilateral primary osteoarthritis of knee; S96.911A Strain of unspecified muscle and tendon at ankle and foot level, right foot, initial encounter; E11.9 Type 2 diabetes mellitus without complications; M35.00 Sjogren syndrome, unspecified
CPT/HCPCS: 80053; 80061; 82043; 82306; 82607; 82746; 83036; 84443; 85025; 86704; 86706; 86780; 86803; 87340; 87389; 99212

== ENCOUNTER 2022-10-04 09:56 | Outpatient (AMB) | payer MEDICAID, SELFPAY ==
--- NOTE | 2022-10-04 10:02 | A.OFFVIS_ITS ---
Intake Intake Visit Reasons: OV - B/L knee OA Intake Note: Jennifer is a 62 year old female who presents today with complaints of bilateral knee pain. She also complains of continued right ankle pain, she was last seen for this with Manny who recommended referral to foot and ankle specialist if her symptoms did not improve. Allergies codeine [Codeine] Allergy (Mild, Verified 06/26/21 19:15) BURNING IN CHEST, chest pain sulfamethoxazole [From Bactrim] Allergy (Mild, Verified 06/26/21 19:15) ITCH,RASH HPI OV - B/L knee OA HPI Details Jennifer is a 62 year old Diabetic woman with bilateral knee OA, L>R. She complains of pain with daily activity, worse with using stairs or prolonged walking. She has a hx of some relief from steroid injections in the past but she feels limited in her activity by pain. She also has pain in her right ankle due to peroneal tendon pathology.. This makes activities difficult for her She has a hx of RA. [facility] Medical History Alopecia Asthma Back pain Constipation COPD (chronic obstructive pulmonary disease) COPD (chronic obstructive pulmonary disease) Depression Diabetes Diabetes type 2, controlled Diabetes type 2, uncontrolled Difficulty swallowing DM2 (diabetes mellitus, type 2) Elevated cholesterol Fibromyalgia GERD (gastroesophageal reflux disease) HTN (hypertension) [facility] (current) use of insulin SOY (obstructive sleep apnea) SOY (obstructive sleep apnea) Osteoarthritis Rheumatoid arthritis 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 rheumatoid arthritis Sicca syndrome Sjogrens syndrome Sleep apnea Vitamin D deficiency Surgical History History of bladder suspension procedure History of esophagogastroduodenoscopy (EGD) History of laryngoscopy History of repair of left rotator cuff Hx of colonoscopy Hx of dilation and curettage Hx of hemorrhoidectomy Hx of tubal ligation Family History Father Cancer Mother Heart disease Diabetes Social History Household Members: Children and Other Household Members Other:: daughter, grandkids Are you a primary child care nurse to a significant other at home: No Do you presently have visiting nurse or other home services: No Alcohol intake: never Patient Tobacco Use Status: Never used Tobacco e-Cigarette/Vaping Use: Never Used Second Hand Smoke Exposure: No 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al status: disabled 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 Review of Systems Const All systems reviewed & are unremarkable except as noted in HPI and below Physical Exam Const General: no acute distress, alert and awake Orientation/consciousness: patient oriented x3 HEENT Head: Yes normocephalic and Yes atraumatic Eyes EOM: EOMs intact bilaterally Resp Effort & Inspection: normal respiratory effort and able to speak in complete sentences Cardio Jugular venous distension: no JVD Skin General skin exam: turgor normal Rashes: no rashes Neuro General: patient oriented x3 Extrem Other: Bilateral Knees: Antalgic gait TTP medial compartment 5-130 degrees ROM Right Ankle: Bulbous swelling in distal/retrofibular region Pain on resisted ankle eversion TTP along course of peroneal tendons Skin c/d/i 2+ DP Psych Appearance: grossly normal Affect: normal affect Attitude: cooperative Results Reviewed Results Reviewed: I personally reviewed the MR images. Prominent irregular partial tearing of the peroneal brevis tendon at the level of the lateral malleolus. Ovoid, heterogeneous focus associated with the tendon sheath measuring up to 1.9 cm and likely representing a combination of irregular tearing and hematoma given the history of a twisting injury. Mild adjacent soft tissue edema. ? No acute osseous abnormality. ? I personally reviewed relevant radiographs . Tricompartment arthritis right knee. Severe medial compartment arthritis. Findings similar to previous. 2. Tricompartment arthritis left knee. Severe medial compartment arthritis. Findings similar to previous. Assessment & Plan Assessment & Plan (1) Tear of tendon of right ankle: Code(s): S96.911A - Strain of unspecified muscle and tendon at ankle and foot level, right foot, initial encounter Plan: Tear of right Peroneus Brevus. Pain with weight-bearing, worse with using stairs, localized to the lateral aspect. I recommend an peroneus brevus tendon repair. I discussed the risks, benefits, and alternatives including, but not limited to, the risk of pain, infection, stiffness, need for further surgery as well as potential medical complications such as blood clots, pulmonary embolism and cardiac complications. I discussed the recovery timeline and process as well as the importance of PT. Jennifer is a good candidate for this surgery, and she wishes to proceed with this decision. She will speak with scheduling for this procedure. She is a Diabetic, labs were drawn today to test her HgA1c, and are currently pending, though she says her Diabetes is well-controlled (2) Osteoarthritis of left knee: Code(s): M17.12 - Unilateral primary osteoarthritis, left knee Plan: This is a 62 year old woman with severe bilateral knee OA, L>R. She has pain with daily activities, worse with using stairs or ambulation. She feels limited in her ADLs by her pain and that her QOL is diminished. She has a hx of some relief from steroid injections in the past, but they do not completely resolve her pain. I discussed her diagnosis and treatment options. I recommend a TKA, however she feels her ankle is causing most of her pain and limitations at this time. She would like to have her ankle treated prior to discussing a TKA. (3) Osteoarthritis of right knee: Code(s): M17.11 - Unilateral primary osteoarthritis, right knee (4) DM2 (diabetes mellitus, type 2): Code(s): E11.9 - Type 2 diabetes mellitus without complications Qualifiers: Diabetes mellitus complication status: without complication Diabetes mellitus joint terminal attack controller insulin use: without joint terminal attack controller use Qualified Code(s): E11.9 - Type 2 diabetes mellitus without complications (5) Sjogren's syndrome: Code(s): M35.00 - Sjogren syndrome, unspecified Qualifiers: Sjogren's organ involvement: unspecified organ involvement Qualified Code(s): M35.00 - Sicca syndrome, unspecified Coding Level of Care Code Est Pt Level 4 (87913) Diagnoses Tear of tendon of right ankle S96.911A Osteoarthritis of left knee M17.12 Osteoarthritis of right knee M17.11 DM2 (diabetes mellitus, type 2) E11.9 Diabetes mellitus complication status: without complication Diabetes mellitus shelter insulin use: without joint terminal attack controller use Sjogren's syndrome M35.00 Sjogren's organ involvement: unspecified organ involvement
== END 2022-10-04 11:11 | disposition home or self-care (01) ==
PROVIDERS: Visit Provider Orthopaedic Surgery
DX: S96.911A Strain of unspecified muscle and tendon at ankle and foot level, right foot, initial encounter (principal); M17.0 Bilateral primary osteoarthritis of knee; M35.00 Sjogren syndrome, unspecified; E11.9 Type 2 diabetes mellitus without complications
CPT/HCPCS: 99214

== ENCOUNTER 2022-10-24 13:15 | Outpatient (REF) | payer MEDICAID, SELFPAY ==
--- NOTE | ~2022-10-24 | XR_ITS ---
EXAMINATION: XR CHEST CLINICAL INFORMATION: Lung bases crackles. COMPARISON: Chest radiographs dated 04/11/2022. TECHNIQUE: 2 views of the chest were obtained. FINDINGS: Minimal linear markings are seen in the left lower lung without significant change. The left upper lung field and right lung are clear. The heart and mediastinal structures are unremarkable. XR/XR chest 2V IMPRESSION: No acute cardiopulmonary process.
== END 2022-10-24 13:16 | disposition home or self-care (01) ==
LOC: HO.HHCX 13:15
PROVIDERS: Visit Provider Student in an Organized Health Care Education/Training Program
DX: Z01.818 Encounter for other preprocedural examination (principal); R09.89 Other specified symptoms and signs involving the circulatory and respiratory systems
CPT/HCPCS: 71046

== ENCOUNTER 2022-10-26 13:39 | Outpatient (REF) | payer MEDICAID, SELFPAY ==
[2022-10-26 13:55] LABS: MANUAL DIFF FLAG NO
[2022-10-26 14:15] LABS: Basophils Percent Auto 0.6 % (0-2); Eosinophils Absolute Auto 0.7 X10*3/uL (0.0-0.4); Eosinophils Percent Auto 12.3 % (0-4); Hematocrit 39.3 % (37.0-47.0); Hemoglobin 13.1 g/dl (12.0-16.0); Imm Gran Abs Auto 0.02 X10*3/uL (0.00-0.03); Imm Gran Pct Auto 0.4 % (0.0-0.4); Lymphocytes Percent Auto 37.2 % (20-40); Mean Corpuscular HGB Conc 33.3 g/dl (31.0-35.0); Mean Corpuscular Hemoglobin 29.4 pg (27.0-33.0); Mean Corpuscular Volume 88.1 fL (80.0-98.0); Mean Platelet Volume 9.6 fL (9.4-12.3); Monocytes Absolute Auto 0.8 X10*3/uL (0.1-1.2); Monocytes Percent Auto 14.5 % (2-11); Neutrophils Absolute Auto 1.9 x10*3/uL (2.0-8.3); Platelet Count 251 X10*3/uL (160-400); Red Blood Count 4.46 X10*6/uL (4.20-5.50); Red Cell Distribution Width 13.2 % (11.0-16.0); White Blood Count 5.5 X10*3/uL (4.8-10.8)
[2022-10-26 15:40] LABS: Alanine Aminotransferase 13 U/L (0-31); Albumin Level 3.9 g/dL (3.5-5.0); Alkaline Phosphatase 128 U/L (39-117); Anion Gap 11 (12-20); Aspartate Amino Transferase 14 U/L (5-31); Bilirubin Total 0.3 mg/dL (0.0-1.0); Blood Urea Nitrogen 16 mg/dL (9-16); Calcium 10.2 mg/dL (8.4-10.2); Carbon Dioxide 31 mmol/L (22-29); Chloride 103 mmol/L (96-108); Estimated Glomerular Filt Rate > 60; Glucose Random 135 mg/dL (60-115); Magnesium 1.9 mg/dL (1.6-2.6); Potassium 3.6 mmol/L (3.3-5.1); Sodium 141 mmol/L (135-145); Total Protein 7.9 g/dL (6.5-8.0)
[2022-10-26 18:55] LABS: CT PCR NOT DETECTED (Not Detect.); NG PCR NOT DETECTED (Not Detect.)
[2022-10-29 23:03] LABS: Immunoglobulin E 42 kU/L (<OR=114)
[2022-11-01 22:49] LABS: Strongyloides Antibody IgG EQUIVOCAL
== END 2022-10-26 13:40 | disposition home or self-care (01) ==
LOC: HO.LAB 13:39
PROVIDERS: PCP Student in an Organized Health Care Education/Training Program; Visit Provider Student in an Organized Health Care Education/Training Program
DX: Z01.818 Encounter for other preprocedural examination (principal); Z11.3 Encounter for screening for infections with a predominantly sexual mode of transmission
CPT/HCPCS: 0353U; 80053; 82785; 83735; 85025; 86682

== ENCOUNTER 2022-10-29 | Outpatient (REF) | payer MEDICAID, SELFPAY | END 2022-10-29 00:01 | disposition home or self-care (01) | LOC: CF | PROVIDERS: Visit Provider Internal Medicine | DX: J44.9 Chronic obstructive pulmonary disease, unspecified (principal) | CPT/HCPCS: 99212 ==

== ENCOUNTER 2022-10-29 09:47 | Outpatient (AMB) | payer MEDICAID, SELFPAY ==
[2022-10-29 10:11] VITALS: BP 132/80; PULSE 77; O2SAT 94; BMI 27.4
--- NOTE | 2022-10-29 10:11 | A.OFFVIS_ITS ---
Intake Vital Signs 10/29/22 10:11 Height 5 ft 2 in Weight 150 lb BMI 27.4 BP 132/80 Blood Pressure Location Lt brachial Position Sitting Pulse 77 Pulse Source Pulse Oximeter Pulse Oximetry (%) 94 Oxygen Delivery Method Room Air Intake Visit Reasons: COPD Intake Note: pt is here for 2 year follow up and states she is short of breath sometimes with walking up the stairs. She does have a c-pap but she does not use this, and it is working, the mask was the issue. Cloth Printing Utility Worker Required: Yes Cloth Printing Utility Worker Name: soto Allergies codeine [Codeine] Allergy (Mild, Verified 10/29/22 10:46) BURNING IN CHEST, chest pain sulfamethoxazole [From Bactrim] Allergy (Mild, Verified 10/29/22 10:46) ITCH,RASH Medication List - Last Reconciled 10/29/22 by Shiela Malik MD acarbose 25 mg PO TID acarbose 50 mg PO TID 30 days amitriptyline 10 mg PO BEDTIME aspirin 81 mg PO DAILY atorvastatin 10 mg PO BEDTIME 90 days bisacodyl (Alophen (bisacodyl)) 5 mg PO BEDTIME blood glucose control high,low (FreeStyle Control solution) Twice a month blood sugar diagnostic (FreeStyle Lite Strips) 4 times a day 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 meter (FreeStyle Lite Meter kit) As directed calcium 600 mg PO carvedilol 25 mg PO BID cetirizine 10 mg PO DAILY cholecalciferol (vitamin D3) 50 mcg PO DAILY clonazepam 0.5 mg PO DAILY PRN clonidine HCl 0.1 mg PO BID cyclobenzaprine 10 mg PO Q8H PRN diltiazem HCl ER 360 mg PO DAILY docusate sodium (DOK) 100 mg PO DAILY dulaglutide (Trulicity) 0.75 mg (0.5 mL) subcut QWEEK 30 days duloxetine 60 mg PO DAILY furosemide 20 mg PO DAILY gabapentin 200 mg PO BID lancets (TRUEplus Lancets) 4 times a day leflunomide 20 mg PO DAILY lisinopril 40 mg PO DAILY loratadine 10 mg PO DAILY PRN melatonin 10 mg PO BEDTIME PRN methotrexate sodium 25 mg (10 x 2.5 mg) PO QWEEK naproxen 500 mg PO BID PRN sennosides (senna) 17.2 mg PO DAILY PRN Do you need a note to return to daycare/school/sports/work: No HPI COPD HPI Details This 62 years old very pleasant female, Albanian speaking, comes for pre -op evaluation. She was last seen by me in December 2019, and since then has been fairly good and stable. Her main complaint is only occasional cough, and some shortness of breath if she walks fast. She has used albuterol as a rescue inhaler only once in a while. Since 2019 she has not used any maintenance inhaler. Patient is nonsmoker. She has had no recent respiratory infection. She has past history of obstructive sleep apnea. But back in 2019 she did lose significant amount of weight, and her symptoms of sleep apnea has resolved. She has not use the CPAP since then, She claims that she sleeps good at night . She tries to sleep in lateral position. She denies any daytime sleepiness. Obstructive sleep apnea was partly because of being overweight and partly due to her RETROGANTHIA of the lower jaw. So she is expected to have some degree of sleep apnea even after weight loss. [facility] Medical History Alopecia Asthma Back pain Constipation COPD (chronic obstructive pulmonary disease) COPD (chronic obstructive pulmonary disease) Depression Diabetes Diabetes type 2, controlled Diabetes type 2, uncontrolled Difficulty swallowing DM2 (diabetes mellitus, type 2) Elevated cholesterol Fibromyalgia GERD (gastroesophageal reflux disease) HTN (hypertension) [facility] (current) use of insulin SOY (obstructive sleep apnea) SOY (obstructive sleep apnea) Osteoarthritis Rheumatoid arthritis 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 rheumatoid arthritis Sicca syndrome Sjogrens syndrome Sleep apnea Vitamin D deficiency Surgical History History of bladder suspension procedure History of esophagogastroduodenoscopy (EGD) History of laryngoscopy History of repair of left rotator cuff Hx of colonoscopy Hx of dilation and curettage Hx of hemorrhoidectomy Hx of tubal ligation Family History Father Cancer Mother Heart disease Diabetes Social History Household Members: Children and Other Household Members Other:: daughter, grandkids Are you a primary home care consultant to a significant other at home: No Do you presently have visiting nurse or other home services: No Alcohol intake: never Patient Tobacco Use Status: Never used Tobacco e-Cigarette/Vaping Use: Never Used Second Hand Smoke Exposure: No 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al status: disabled 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 Review of Systems Const Denies body aches, Denies chills, Denies fatigue, Denies fever(s), Denies headache(s), Denies snoring and Denies weakness Eyes Reports no additional complaints ENT Denies change in voice, Denies headache(s), Denies epistaxis, Denies nasal congestion, Denies nasal discharge, Denies sinus pressure and Denies sore throat Card Denies chest pain, Denies irregular heart rhythm, Denies leg edema, Denies dyspnea and Denies dyspnea on exertion Resp Denies change in phlegm color, Denies cough, Denies excessive phlegm production, Denies dyspnea, Denies dyspnea on exertion, Denies snoring and Denies wheezing GI Denies abdominal pain, Denies constipation, Denies diarrhea, Denies nausea and Denies vomiting Denies urinary frequency, Denies dysuria and Denies urinary incontinence Musc Denies abnormal gait, Denies back pain and Reports arthralgias Skin/Breast Reports system reviewed and no additional complaints, except as documented Neuro Reports no additional complaints, Denies abnormal gait, Denies headache(s), Reports lack of coordination, Reports restless legs, Reports tremor(s) and Denies weakness Psych Denies anxiety, Denies depression, Denies irritability and Denies mood swings Endo Denies fatigue Aller/Immun Denies seasonal rhinorrhea and Denies wheezing Physical Exam Vital Signs: Last Vital Signs Pulse 77 10/29/22 10:11 BP 132/80 10/29/22 10:11 Pulse Ox 94 10/29/22 10:11 Oxygen Delivery Method Room Air 10/29/22 10:11 BMI result Body Mass Index 27.4 Const General: cooperative, healthy appearing and no acute distress Orientation/consciousness: patient oriented x3 HEENT Head: Yes normal to inspection Ears: hearing grossly normal bilaterally General nose exam: Normal external nose present and Normal nares present Eyes General: appearance normal, both eyes and all related structures Neck Other: Neck is short and Obese, but no palpable mass, No thyromegaly, No lymphadenopathy Resp Other: Has good breath sounds on both sides,, no wheezes rhonchi or crepitations are heard. Cardio Jugular venous distension: no JVD Rate: regular rate Rhythm: regular rhythm Heart sounds: S1 normal heart sound present and S2 normal heart sound present Peripheral pulses: Peripheral pulses 2+ throughout GI Inspection: Yes normal to inspection Percussion: Yes normal to percussion Auscultation: normal bowel sounds General: Yes no CVA tenderness Back/Spine/Pelvis Back: no CVA tenderness Thoracic/Lumbar Spine: thoracic and lumbar spine normal to inspection Skin General skin exam: no rashes or lesions noted Neuro General: patient oriented x3 and no focal motor deficits Cranial nerves: Yes CN's II-XII intact bilaterally Extrem General: No no clubbing, cyanosis or edema, No cyanosis and No edema Psych Appearance: grossly normal Assessment & Plan Assessment & Plan (1) COPD (chronic obstructive pulmonary disease): Comment: Obstructive airway disorder is only mild. SPIROMETRY ON 12/16/2019 WAS ACTUALLY NORMAL. TX: She is to use albuterol HFA 2 puffs Q 4-6 hours only p.r.n. and has not needed to use it all. Code(s): J44.9 - Chronic obstructive pulmonary disease, unspecified (2) SOY (obstructive sleep apnea): Comment: PATIENT HAD LOST , SIGNIFICANT AMOUNT OF WEIGHT , AND SYMPTOMS OF SOY , HAD RESOLVED . Has not use CPAP since December 2019, . Claims that she sleeps good Code(s): G47.33 - Obstructive sleep apnea (adult) (pediatric) Plan: PATIENT IS GOING TO UNDERGO TOTAL KNEE REPLACEMENT SURGERY, FROM PULMONARY POINT OF VIEW NO CONTRAINDICATION IS NOTED. Coding Level of Care Code Est Pt Level 3 (03463) Diagnoses COPD (chronic obstructive pulmonary disease) J44.9 SOY (obstructive sleep apnea) G47.33
== END 2022-10-29 10:36 | disposition home or self-care (01) ==
PROVIDERS: PCP Student in an Organized Health Care Education/Training Program; Visit Provider Internal Medicine
DX: J44.9 Chronic obstructive pulmonary disease, unspecified (principal); G47.33 Obstructive sleep apnea (adult) (pediatric)
CPT/HCPCS: 99213

== ENCOUNTER 2022-11-21 15:14 | Outpatient (REF) | payer MEDICAID, SELFPAY | END 2022-11-21 15:15 | disposition home or self-care (01) | LOC: HO.MAMMO 15:14 | PROVIDERS: PCP Student in an Organized Health Care Education/Training Program; Visit Provider Emergency Medicine | DX: Z12.31 Encounter for screening mammogram for malignant neoplasm of breast (principal) | CPT/HCPCS: 77063; 77067 ==

== ENCOUNTER → 2022-11-21 15:30 | Outpatient (BNV) | payer MEDICAID, SELFPAY | PROVIDERS: PCP Student in an Organized Health Care Education/Training Program; Visit Provider Radiology Diagnostic Radiology | DX: Z12.31 Encounter for screening mammogram for malignant neoplasm of breast (principal) | CPT/HCPCS: 77063; 77067 ==

== ENCOUNTER 2022-11-28 13:58 | Outpatient (AMB) | payer MEDICAID, SELFPAY ==
--- NOTE | 2022-11-28 14:12 | A.OFFVIS_ITS ---
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/Pre-op peroneus brevis tendon repair Intake Note: NPV Splicing Technician Required: Yes Splicing Technician Language: Inspector Of Weights And Measures Name: Natalia [id number] Accompanied by: Self / Same As Patient Allergies codeine [Codeine] Allergy (Mild, Verified 11/28/22 14:13) BURNING IN CHEST, chest pain sulfamethoxazole [From Bactrim] Allergy (Mild, Verified 11/28/22 14:13) ITCH,RASH Medication List - Last Reconciled 11/28/22 by Mendez Alvarado MD acarbose 50 mg PO TID 30 days acarbose 25 mg PO TID amitriptyline 10 mg PO BEDTIME aspirin 81 mg PO DAILY atorvastatin 10 mg PO BEDTIME 90 days bisacodyl (Alophen (bisacodyl)) 5 mg PO BEDTIME blood glucose control high,low (FreeStyle Control solution) Twice a month blood sugar diagnostic (FreeStyle Lite Strips) 4 times a day 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 meter (FreeStyle Lite Meter kit) As directed calcium 600 mg PO carvedilol 25 mg PO BID cetirizine 10 mg PO DAILY cholecalciferol (vitamin D3) 50 mcg PO DAILY clonazepam 0.5 mg PO DAILY PRN clonidine HCl 0.1 mg PO BID cyclobenzaprine 10 mg PO Q8H PRN diltiazem HCl ER 360 mg PO DAILY docusate sodium (DOK) 100 mg PO DAILY dulaglutide (Trulicity) 0.75 mg (0.5 mL) subcut QWEEK 30 days duloxetine 60 mg PO DAILY furosemide 20 mg PO DAILY gabapentin 200 mg PO BID lancets (TRUEplus Lancets) 4 times a day leflunomide 20 mg PO DAILY lisinopril 40 mg PO DAILY loratadine 10 mg PO DAILY PRN melatonin 10 mg PO BEDTIME PRN methotrexate sodium 25 mg (10 x 2.5 mg) PO QWEEK naproxen 500 mg PO BID PRN sennosides (senna) 17.2 mg PO DAILY PRN HPI HPI Comments History of Present Illness Details Jennifer is here for consultation regarding preoperative risk stratification for orthopedic surgery(peroneus brevus repair). Patient herself does not have any history of coronary disease ,myocardial infarction or cardiomyopathy. History obtained using bleach liquor maker. Multiple cardiovascular risk factors including type 2 diabetes, hypertension, dyslipidemia. Not much of activity at baseline. She states she gets random episodes of chest pain but in no specific manner. 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 Watkins. It seems that she was given the go ahead for surgery but not clear. 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 Diabetes type 2, controlled SOY (obstructive sleep apnea) COPD (chronic obstructive pulmonary disease) SOY (obstructive sleep apnea) Sicca syndrome Constipation Alopecia Sjogrens syndrome Osteoarthritis Rheumatoid arthritis Fibromyalgia Back pain Difficulty swallowing Diabetes GERD (gastroesophageal reflux disease) Depression Sleep apnea Asthma COPD (chronic obstructive pulmonary disease) Elevated cholesterol HTN (hypertension) Surgical History History of laryngoscopy Hx of hemorrhoidectomy History of bladder suspension procedure Hx of dilation and curettage Hx of tubal ligation History of repair of left rotator cuff Hx of colonoscopy History of esophagogastroduodenoscopy (EGD) Family History Father Cancer Mother Heart disease Diabetes Social History Household Members: Children and Other Household Members Other:: daughter, grandkids Are you a primary certified caregiver to a significant other at home: No Do you presently have visiting nurse or other home services: No Alcohol intake: never Patient Tobacco Use Status: Never used Tobacco e-Cigarette/Vaping Use: Never Used Second Hand Smoke Exposure: No 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al status: disabled 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 Review of Systems Const Denies weakness Eyes Denies loss of vision ENT Denies dizziness Card Denies chest pain, Denies chest pain with activity, Denies syncope, Denies rapid heart rate, Denies pedal edema, Denies edema, Denies leg edema, Denies lightheadedness, Denies palpitations, Denies dyspnea, Denies dyspnea on exertion and Denies orthopnea Resp Denies cough, Denies dyspnea, Denies dyspnea on exertion and Denies wheezing GI Denies hematochezia and Denies change in stool character Denies hematuria, Denies urinary frequency and Denies dysuria Musc Denies abnormal gait, Denies muscle cramps, Denies muscle weakness, Denies numbness, Denies radiating pain into limb and Denies tingling Skin/Breast Denies nail changes and Denies rash Neuro Denies Abnormal speech present, Denies abnormal gait, Denies dizziness, Denies syncope, Denies loss of vision, Denies memory loss, Denies numbness, Denies tingling and Denies weakness Psych Denies depression and Denies memory loss Endo Denies palpitations Aller/Immun Denies wheezing Physical Exam Vital Signs: Last Vital Signs Pulse 88 11/28/22 14:13 BP 160/94 H 11/28/22 14:13 BMI result Body Mass Index 28.3 Const General: comfortable and no acute distress Orientation/consciousness: patient oriented x3 HEENT Other: Unremarkable Head: Yes normal to inspection Neck Neck: Yes normal visual inspection Chest Chest palpation & inspection: normal inspection of the chest Resp Auscultation: clear to auscultation bilaterally Cardio Palpation: normal PMI Heart sounds: S1 normal heart sound present, S2 normal heart sound present, no gallops, no murmurs and no rubs GI Palpation (GI): Soft to palpation Back/Spine/Pelvis Other: unremarkable Skin General skin exam: no rashes or lesions noted Neuro General: patient oriented x3 Speech: No Abnormal speech present Extrem General: Yes normal to inspection Psych Mental Status: mental status grossly normal Assessment & Plan Assessment & Plan (1) Preoperative cardiovascular examination: Code(s): Z01.810 - Encounter for preprocedural cardiovascular examination (2) DM2 (diabetes mellitus, type 2): Code(s): E11.9 - Type 2 diabetes mellitus without complications Qualifiers: Diabetes mellitus penitentiary insulin use: without termite exterminator use Diabetes mellitus complication status: without complication Qualified Code(s): E11.9 - Type 2 diabetes mellitus without complications (3) HTN (hypertension): Code(s): I10 - Essential (primary) hypertension Qualifiers: Hypertension type: essential hypertension Qualified Code(s): I10 - Essential (primary) hypertension (4) Elevated cholesterol: Code(s): E78.00 - Pure hypercholesterolemia, unspecified Plan In the last EKG, underlying rhythm is sinus at 74/Min; wall described to for LVH; nonspecific ST-T changes in lateral leads. Normal ME and corrected QT. Overall, multiple cardiovascular risk factors, intermediate risk surgery, poor activity level at baseline. We can get an echocardiogram and pharmacological stress perfusion imaging study for further evaluation. Once these are completed and reviewed, can make an addendum. Orders: Orders CA echo transthoracic complete Today I25.10 - Atherosclerotic heart disease of [place] coronary artery without angina pectoris, Z01.810 - Encounter for preprocedural cardiovascular examination CA lexiscan stress w jacques Today R07.2 - Precordial pain, Z01.810 - Encounter for preprocedural cardiovascular examination NM cardiolite stress test Today R07.2 - Precordial pain, Z01.810 - Encounter for preprocedural cardiovascular examination Medications: Changed From acarbose To take with acarbose 50mg for total of 75mg TID with meals. 25 mg PO TID 30 tabs 6RF To acarbose To take with acarbose 50mg for total of 75mg TID with meals. 25 mg PO TID Coding Level of Care Code New Pt Level 4 (27691) Diagnoses Preoperative cardiovascular examination Z01.810 Type 2 diabetes mellitus without complication, without long-term current use of insulin E11.9 Diabetes mellitus penitentiary insulin use: without penitentiary use Diabetes mellitus complication status: without complication Essential hypertension I10 Hypertension type: essential hypertension Elevated cholesterol E78.00
[2022-11-28 14:13] VITALS: BP 160/94; PULSE 88; BMI 28.3
== END 2022-11-28 14:31 | disposition home or self-care (01) ==
PROVIDERS: PCP Student in an Organized Health Care Education/Training Program; Visit Provider Internal Medicine
DX: Z01.810 Encounter for preprocedural cardiovascular examination (principal); E11.9 Type 2 diabetes mellitus without complications; I10 Essential (primary) hypertension; E78.00 Pure hypercholesterolemia, unspecified
CPT/HCPCS: 99214

== ENCOUNTER → 2022-11-28 13:58 | Outpatient (BNVA) | payer MEDICAID, SELFPAY | PROVIDERS: PCP Student in an Organized Health Care Education/Training Program; Visit Provider Internal Medicine | DX: Z01.810 Encounter for preprocedural cardiovascular examination (principal); I10 Essential (primary) hypertension; E11.9 Type 2 diabetes mellitus without complications; E78.00 Pure hypercholesterolemia, unspecified | CPT/HCPCS: 99212 ==

== ENCOUNTER 2022-12-17 14:04 | Outpatient (REF) | payer MEDICAID, SELFPAY ==
--- NOTE | ~2022-12-17 | US_ITS ---
EXAMINATION: US RETROPERITONEAL LIMITED (RENAL ONLY) CLINICAL INFORMATION: Hydronephrosis. COMPARISON: Ultrasound abdomen complete 01/13/2014. CT abdomen and pelvis without contrast 09/13/2012. TECHNIQUE: Real-time imaging of the kidneys. Limited visualization due to bowel gas. FINDINGS: RIGHT KIDNEY: 11.4 x 4.1 x 4.2 cm (SAG x AP x TRV). No hydronephrosis. Limited visualization. Borderline mild diffuse renal cortical thinning. A 1.3 x 1.0 x 1.3 cm medial right interpolar cyst with dense peripheral calcification. A 0.7 x 0.8 x 1.1 cm medial right renal cyst with dense calcification. No obstructing renal calculi. A few tiny scattered echogenic foci may represent artifact, vascular calcification or less likely nonobstructive calculi. LEFT KIDNEY: 11.6 x 4.3 x 4.9 cm (SAG x AP x TRV). 2.4 x 2.0 x 2.2 cm lateral lower pole cyst with benign features. There is no indication for followup imaging. No hydronephrosis. No renal calculi. Borderline mild diffuse renal cortical thinning. A few tiny scattered echogenic foci may represent artifact, vascular calcification or less likely nonobstructive calculi. Limited visualization. US/US renal BI IMPRESSION: Mild bilateral borderline diffuse renal cortical thinning. Bilateral tiny scattered echogenic foci may represent artifact, vascular calcification or less likely nonobstructive calculi. No hydronephrosis. Right renal cysts with associated dense calcifications were not identified on ultrasound of 01/13/2014. CT scan recommended for further evaluation.
== END 2022-12-17 14:05 | disposition home or self-care (01) ==
LOC: HO.US 14:04
PROVIDERS: PCP Student in an Organized Health Care Education/Training Program; Visit Provider Student in an Organized Health Care Education/Training Program
DX: N13.30 Unspecified hydronephrosis (principal)
CPT/HCPCS: 76775

== ENCOUNTER → 2023-01-04 08:00 | Outpatient (REF) | payer MEDICAID, SELFPAY ==
--- NOTE | ~2023-01-04 | NM_ITS ---
Lexiscan Myocardial perfusion study Indication: Chest pain, preoperative evaluation Technique: The patient was brought in for a Lexiscan perfusion study on 01/04/2023 and was injected 0.4 mg of Lexiscan intravenously. Within a minute of this injection 25 mCi of sestamibi was given intravenously. Images were obtained using the SPECT gamma camera interlaced with the gating device. Images were obtained in supine position. Resting perfusion study was performed on 01/07/2023. Patient was administered 25 mCi of sestamibi intravenously at rest. Images were then obtained in supine position. Images were processed with the software and compared side to side in short axis, horizontal long axis and vertical long axis views. Total DLP 140mGy-cm. Findings: Raw acquisition reviewed. Arms by the patient's side. The stress perfusion study showed diminished tracer uptake in the lateral wall, mid to apex. There is improvement with CT attenuation correction suggestive of soft tissue attenuation artifact. The gated study shows normal LV systolic function with calculated LVEF of 51%. LV cavity is normal in size. The gated study shows lateral hypokinesis. Resting study shows no significant perfusion abnormality. Gating at rest reveals normal wall motion with ejection fraction at 68%. The findings are consistent with reversible lateral perfusion defect that improves with CT attenuation correction. NM/NM cardiolite stress test Impression: 1. Myocardial perfusion imaging study shows probably normal myocardial perfusion. Reversible lateral perfusion defect could be artifactual, due to improvement with CT attenuation correction. 2. Gated LVEF is 51% during stress and 68% during rest. 3. Transient ischemic dilatation not present. EKG component of the test reported separately.
--- NOTE | 2023-01-04 08:11 | CA_ITS ---
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 Study Quality: Fair ECG Rhythm: Sinus Conclusions: - Normal left ventricular size and systolic function. There is mildly increased left ventricular wall thickness. The visually estimated ejection fraction is between 60-65%. - There is severe septal asymmetric hypertrophy. - Normal right ventricular cavity size and systolic function. - There is mild dilatation of the ascending aorta measuring 3.90 cm. Findings Procedure Information The quality of the study was technically difficult. The study quality is limited by patients body habitus. Left Ventricle Normal left ventricular size and systolic function. There is mildly increased left ventricular wall thickness. The visually estimated ejection fraction is between 60-65%. There is no evidence of regional wall motion abnormalities. Diastolic function is indeterminate on the basis of available data. There is severe septal asymmetric hypertrophy. Right Ventricle Normal right ventricular cavity size and systolic function. Atria The left atrium is normal in size. Aortic Valve Normal aortic valve structure and function. There is no aortic valve stenosis. There is trace (trivial) aortic valve regurgitation. Mitral Valve The mitral valve appears normal. There is mild mitral annular calcification. There is trace mitral valve regurgitation. There is no mitral valve stenosis. Pulmonic Valve The pulmonic valve is likely normal. Tricuspid Valve Normal tricuspid valve structure. There is no tricuspid valve regurgitation. Normal right atrial pressure. There is no evidence of pulmonary hypertension. Great Vessels There is mild dilatation of the ascending aorta measuring 3.90 cm. The visualized portions of the pulmonary artery and branches are normal. Venous The inferior vena cava is normal in size and collapses greater than 50% with inspiration. Pericardium/Pleural There is no evidence of pericardial effusion. Prior Study Comparison Changes noted compared to prior study dated: 08/09/2017. Severe septal hypertrophy. Measurements 2D Linear Measurements IVSd: 1.59 0.6-0.9/0.6-1.0 cm LVIDd: 4.05 3.9-5.3/4.2-5.9 cm LVIDd Index: 2.40 2.4-3.2/2.2-3.1 cm/m2 LVIDs: 2.87 2.0-3.6 cm LVPWd: 0.98 0.7-1.1 cm LA Diam: 3.60 2.7-3.8/3.0-4.0 cm LAIDs Index: 2.13 1.5-2.3 cm/m2 LV Mass: 232.09 67-162/88-224 g LV Mass Index: 137.33 43-95/49-115 g/m2 LVOT Diam: 2.00 3.0+(-)1.3 cm 2D Systolic Function EF 4C: 52.50 >55% Mitral Valve E'Lateral: 4.03 Aortic Valve AoV Pk Scooter: 1.00 AoV Pk Grad: 4.00 СЕРГЕЙ: 2.31 AI Pk Scooter: 4.52 AI [place]: 2.25 LVOT LVOT Pk Scooter: 0.77 LVOT Mn Scooter: 0.52 LVOT VTI: 0.13 LVOT Pk Grad: 2.00 LVOT Mn Grad: 1.00 LVOT Diam: 2.00 LVOT Area: 3.14 Diastolic Function E' Laterial: 4.03 Right Ventricle TVS' Scooter: 11.10 Tricuspid Valve TR Pk Scooter: 2.44 TR Pk Grad: 24.00 RA Press: 3.00 RVSP: 27.00 Great Vessels Aorta Sinus of Valsalva: 3.40 2.0-3.5 cm Ao Asc: 3.90 2.1-3.4 cm Pulmonary Valve PV Pk Scooter: 0.70 Peak PV Grad: 2.00 Updated in Other Vendor System with Status of Final Scott Bishop MD electronically signed on 01/06/2023 11:23:56 AM with status of Final
--- NOTE | 2023-01-04 08:11 | CA_ITS ---
Acquisition Time: 2023-01-04 09:00:41 Total Exercise Time: 00:02:00 Test Indications: CHEST PAIN, PRE-OP Medications: ASPIRIN ACARBOSE AMITRIPTYLINE ATROVASTATIN CARVEDILOL CLONAZEPAM CLONIDINE CYCLOBENZAPRINE FUROSEMIDE LISINOPRIL Protocol: LEXISCAN Max HR: 118 BPM 75% of Pred: 156 BPM Max BP: 180/096 mmHG Max Work Load: 1.0 METS Pharmacological stress test with lexiscan injection while sitting and kicking her legs, without SOB, 5-6/10 chest tightness, without arrhythmias, with resting HTN with normotensive response to injection, with nondiagnostic EKGs. Chest pain resolved 37 min into recovery. Aminiophyliine 75mg IVP given to reverse Lexiscan. Nuclear images pending. Test reviewed with Dr. Bishop. HTN medications were taking at end of test. Referred By: Mendez Alvarado Overread By: Trish Villalobos
== END ==
LOC: HO.CARD 08:00
PROVIDERS: PCP Student in an Organized Health Care Education/Training Program; Visit Provider Internal Medicine
DX: Z01.810 Encounter for preprocedural cardiovascular examination (principal); R07.2 Precordial pain; I25.10 Atherosclerotic heart disease of native coronary artery without angina pectoris
CPT/HCPCS: 78452; 93017; 93306; A9500; J0280; J2785

== ENCOUNTER → 2023-01-04 08:11 | Outpatient (BNV) | payer MEDICAID, SELFPAY | PROVIDERS: PCP Student in an Organized Health Care Education/Training Program; Visit Provider Nurse Practitioner | DX: I25.10 Atherosclerotic heart disease of native coronary artery without angina pectoris (principal) | CPT/HCPCS: 78452; 93016; 93018; 93306 ==

== ENCOUNTER 2023-01-15 11:16 | Outpatient (AMB) | payer MEDICAID, SELFPAY ==
--- NOTE | 2023-01-15 11:21 | MHC.OFFVIS ---
Intake Vital Signs 01/15/23 11:28 Height 5 ft 2 in Weight 153 lb BMI 28.0 BP 119/72 Blood Pressure Location Lt brachial Position Sitting Pulse 82 Intake Visit Reasons: Constipation [place] Screening Intake Note: Patient new consult for Constipation and 2nd pre colonoscopy screening. Patient cc: constipation with some blood, abdominal pain with bloating on and off, some swallowing problems. Junior Loan Processor Required: Yes Junior Loan Processor Name: Ramez [id number] Accompanied by: Self / Same As Patient Allergies codeine [Codeine] Allergy (Mild, Verified 01/15/23 11:21) BURNING IN CHEST, chest pain sulfamethoxazole [From Bactrim] Allergy (Mild, Verified 01/15/23 11:21) ITCH,RASH Medication List - Last Reconciled 01/15/23 by Rasheeda Carrasquillo PA-C acarbose 50 mg PO TID 30 days acarbose 25 mg PO TID amitriptyline 10 mg PO BEDTIME aspirin 81 mg PO DAILY atorvastatin 10 mg PO BEDTIME 90 days bisacodyl (Alophen (bisacodyl)) 5 mg PO BEDTIME blood glucose control high,low (FreeStyle Control solution) Twice a month blood sugar diagnostic (FreeStyle Lite Strips) 4 times a day 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 meter (FreeStyle Lite Meter kit) As directed calcium 600 mg PO carvedilol 25 mg PO BID cetirizine 10 mg PO DAILY cholecalciferol (vitamin D3) 50 mcg PO DAILY clonazepam 0.5 mg PO DAILY PRN clonidine HCl 0.1 mg PO BID cyclobenzaprine 10 mg PO Q8H PRN diltiazem HCl ER 360 mg PO DAILY docusate sodium (DOK) 100 mg PO DAILY dulaglutide (Trulicity) 0.75 mg (0.5 mL) subcut QWEEK 30 days duloxetine 60 mg PO DAILY furosemide 20 mg PO DAILY gabapentin 200 mg PO BID lancets (TRUEplus Lancets) 4 times a day leflunomide 20 mg PO DAILY lisinopril 40 mg PO DAILY loratadine 10 mg PO DAILY PRN melatonin 10 mg PO BEDTIME PRN methotrexate sodium 25 mg (10 x 2.5 mg) PO QWEEK naproxen 500 mg PO BID PRN sennosides (senna) 17.2 mg PO DAILY PRN HPI HPI Comments History of Present Illness Details A 62 y/o female chronic constipation-despite senna QD and colace- BM-QD-goes- but hard stool and strain- brb on tp-in she has hemorrhoids that bother her from time to time will only when she strains she know she is never cleaned out- She was to have ankle surgery- cancelled due to cardiac issue- and uncontrolled DM No N/V/D/ abdominal pain-no fever or chills PFSH Medical History DM2 (diabetes mellitus, type 2) Vitamin D deficiency Diabetes type 2, uncontrolled 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 rheumatoid arthritis 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 Diabetes type 2, controlled SOY (obstructive sleep apnea) COPD (chronic obstructive pulmonary disease) SOY (obstructive sleep apnea) Sicca syndrome Constipation Alopecia Sjogrens syndrome Osteoarthritis Rheumatoid arthritis Fibromyalgia Back pain Difficulty swallowing Diabetes GERD (gastroesophageal reflux disease) Depression Sleep apnea Asthma COPD (chronic obstructive pulmonary disease) Elevated cholesterol HTN (hypertension) Surgical History History of laryngoscopy Hx of hemorrhoidectomy History of bladder suspension procedure Hx of dilation and curettage Hx of tubal ligation History of repair of left rotator cuff Hx of colonoscopy History of esophagogastroduodenoscopy (EGD) Family History Father Cancer Mother Heart disease Diabetes Social History Household Members: Children and Other Household Members Other:: daughter, grandkids Are you a primary career services assistant to a significant other at home: No Do you presently have visiting nurse or other home services: No Alcohol intake: never Patient Tobacco Use Status: Never used Tobacco e-Cigarette/Vaping Use: Never Used Second Hand Smoke Exposure: No 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al status: disabled 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 Review of Systems Const All systems reviewed & are unremarkable except as noted in HPI and below GI Denies abdominal pain, Reports bloating, Reports constipation and Denies heartburn Physical Exam Vital Signs: Last Vital Signs Pulse 82 01/15/23 11:28 BP 119/72 01/15/23 11:28 BMI result Body Mass Index 28.0 Const General: cooperative, healthy appearing, comfortable and no acute distress Orientation/consciousness: patient oriented x3 Limitations: language barrier Eyes Sclerae: sclerae normal Resp Effort & Inspection: normal respiratory effort and able to speak in complete sentences Auscultation: clear to auscultation bilaterally and no wheezes Cardio Rate: regular rate Rhythm: regular rhythm Heart sounds: S1 normal heart sound present and S2 normal heart sound present GI Palpation (GI): Soft to palpation and nontender Auscultation: normal bowel sounds Skin General skin exam: no rashes or lesions noted Neuro General: patient oriented x3 Extrem General: Yes full ROM Psych Appearance: grossly normal and well kempt Mental Status: mental status grossly normal Speech and movement: Clear speech present Affect: normal affect Attitude: cooperative Thought process: Normal thought process present Thought content: Normal thought content present Results Reviewed Results Reviewed: 01/10/23-ADDENDUMEchocardiogram with LVEF of 60-65%; severe septal hypertrophy. Myocardial perfusion imaging study shows probably normal perfusion. May proceed with orthopedic surgery as planned. Intermediate cardiac risk. Assessment & Plan Assessment & Plan (1) Chronic constipation: Comment: Multiple comorbidities, lengthy medication list likely plays a role Code(s): K59.09 - Other constipation Plan: Consistent bowel regimen--try to maintain a normal bowel pattern Will hold off on colonoscopy until better managed to assure an adequate prep High-fiber diet (2) Hemorrhoids: Code(s): K64.9 - Unspecified hemorrhoids Plan: Avoid straining Maintain high-fiber diet Hydrocortisone cream Plan consistent bowel regimen HFD- lit given Medications: New bisacodyl (Dulcolax (bisacodyl)) 10 mg ID DAILY PRN 20 ea 2RF constipation hydrocortisone 2.5% (Proctosol HC) 1 appl ID BEDTIME PRN 30 grams 3RF hemorrhoids calcium polycarbophil (Fiber Laxative (calcium polycarbophil)) 1,250 mg (2 x 625 mg) PO DAILY 30 days 60 tabs 3RF polyethylene glycol 3350 (Miralax) 17 grams PO DAILY 30 days 510 grams 6RF Patient Instructions: Very pleasant 62-year-old woman multiple comorbidities with chronic constipation-likely medication induced Consistent bowel regimen--try to maintain a normal bowel pattern Will hold off on colonoscopy until better managed to assure an adequate prep High-fiber diet Avoid straining Hydrocortisone cream Encouraged to call questions or concerns Coding Level of Care Code New Pt Level 4 (66885) Diagnoses Chronic constipation K59.09 Hemorrhoids K64.9 Time Spent (min) 35 Comment 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
[2023-01-15 11:28] VITALS: BP 119/72; PULSE 82; BMI 28.0
== END 2023-01-15 12:08 | disposition home or self-care (01) ==
PROVIDERS: PCP Student in an Organized Health Care Education/Training Program; Visit Provider Physician Assistant
DX: K59.09 Other constipation (principal); K64.9 Unspecified hemorrhoids
CPT/HCPCS: 99204

== ENCOUNTER → 2023-01-15 11:16 | Outpatient (BNVA) | payer MEDICAID, SELFPAY | PROVIDERS: PCP Student in an Organized Health Care Education/Training Program; Visit Provider Physician Assistant | DX: K59.09 Other constipation (principal); K64.9 Unspecified hemorrhoids | CPT/HCPCS: 99212 ==

== ENCOUNTER 2023-04-04 08:21 | Outpatient (REF) | payer MEDICAID, SELFPAY ==
[2023-04-04 09:16] LABS: Estimated Average Glucose 177 mg/dL; Hemoglobin A1c % 7.8 % (<6.0)
[2023-04-04 09:27] LABS: Alanine Aminotransferase 11 U/L (0-31); Albumin Level 3.9 g/dL (3.5-5.0); Alkaline Phosphatase 128 U/L (39-117); Anion Gap 11 (12-20); Aspartate Amino Transferase 14 U/L (5-31); Bilirubin Total 0.4 mg/dL (0.0-1.0); Blood Urea Nitrogen 14 mg/dL (9-16); Calcium 9.2 mg/dL (8.4-10.2); Carbon Dioxide 27 mmol/L (22-29); Chloride 106 mmol/L (96-108); Cholesterol 157 mg/dL (<200); Estimated Glomerular Filt Rate > 60; Glucose Random 187 mg/dL (60-115); HDL Cholesterol 36 mg/dL (>40); LDL Cholesterol Calculated 62 mg/dL (<100); Potassium 3.5 mmol/L (3.3-5.1); Sodium 140 mmol/L (135-145); Total Protein 7.5 g/dL (6.5-8.0); Triglycerides 298 mg/dL (<150)
[2023-04-04 09:44] LABS: Cortisol Random 11.7 ug/dL
[2023-04-04 10:06] LABS: Folate 15.4 ng/mL (> or = 4.0)
[2023-04-04 10:16] LABS: Vitamin B12 395 pg/mL (200-900)
[2023-04-04 13:12] LABS: Gamma Glutamyl Transpeptidase 19 U/L (7-33)
[2023-04-09 16:53] LABS: Aldosterone/Renin Ratio 8.4 Ratio (0.9-28.9); Plasma Renin Activity 0.95 ng/mL/h (0.25-5.82)
[2023-04-10 21:13] LABS: Strongyloides Antibody IgG NEGATIVE
== END 2023-04-04 08:22 | disposition home or self-care (01) ==
LOC: HO.LAB 08:21
PROVIDERS: PCP Student in an Organized Health Care Education/Training Program; Visit Provider Student in an Organized Health Care Education/Training Program
DX: I10 Essential (primary) hypertension (principal)
CPT/HCPCS: 36415; 80053; 80061; 82088; 82533; 82607; 82746; 82977; 83036; 83835; 86682

== ENCOUNTER 2023-04-16 09:12 | Outpatient (REF) | payer MEDICAID, SELFPAY ==
--- NOTE | ~2023-04-16 | CT_ITS ---
EXAMINATION: CT ABDOMEN WITHOUT AND WITH CONTRAST CLINICAL INFORMATION: Renal cyst. COMPARISON: Renal ultrasound 12/17/2022 TECHNIQUE: Contiguous axial thin section helical images of the abdomen were performed before and after the administration of 85 mL of Omnipaque 350 intravenous contrast. The data set was reformatted in the coronal and sagittal planes and reviewed on an independent workstation. This CT examination was performed using dose optimization techniques as appropriate, variously including the following: *Automated exposure control *Adjustment of mA and/or kV according to patient size (this includes techniques or standardized protocols for targeted exams where dose is matched to indication/reason for exam; i.e. extremities or head) *Use of iterative reconstruction technique DLP: 367 mGy-cm FINDINGS: LUNG BASES: No pleural or pericardial effusion. LIVER, GALLBLADDER, AND BILIARY TREE: The liver is normal in size and contour. No focal hepatic lesion. No biliary ductal dilatation. The gallbladder is contracted. PANCREAS: No ductal dilatation SPLEEN: Not enlarged. ADRENAL GLANDS AND KIDNEYS: No adrenal mass. The kidneys are symmetric in size and enhance normally. There are multiple bilateral hypodensities the majority of which are subcentimeter. Right mid pole hypodensity measuring 1.0 x 1.2 cm exhibits mild enhancement. Right lower pole hypodensity measuring 0.8 x 1.1 cm exhibits mild enhancement. Left medial midpole hypodensity measures 2.5 x 2.5 cm. No significant postcontrast enhancement. No further routine imaging follow-up is needed. Delayed images demonstrate intact renal function. No hydronephrosis or perinephric fluid collection. BOWEL LOOPS: Imaged loops of small and large bowel are nonobstructed. LYMPH NODES: Peripancreatic lymph nodes measures 0.9 x 1.4 cm and 1.2 x 1.5 cm. VASCULAR: Normal caliber abdominal aorta. BONES: No destructive bone lesions. CT/CT abdomen wo/w IV con IMPRESSION: Right renal hypodensities exhibit mild postcontrast enhancement. This may be technical given the small size of the lesions. Bosniak IIF. Short interval follow-up in 6 months is recommended. Prominent peripancreatic lymph nodes measuring 0.9 x 1.4 cm and 1.2 x 1.5 cm. No peripancreatic stranding or peripancreatic fluid collections. This bears watching on follow-up imaging.
[2023-04-16] MEDS: iohexoL 350 MG/ML 100 ML INFUS..BTL IV (10:18)
== END 2023-04-16 09:13 | disposition home or self-care (01) ==
LOC: HO.CT 09:12
PROVIDERS: PCP Student in an Organized Health Care Education/Training Program; Visit Provider Student in an Organized Health Care Education/Training Program
DX: N28.1 Cyst of kidney, acquired (principal)
CPT/HCPCS: 74170; Q9967

== ENCOUNTER 2023-04-17 17:49 | Outpatient (REF) | payer MEDICAID, SELFPAY ==
[2023-04-17 18:14] LABS: Appearance Urine Clear; Color Urine Yellow; Glucose Urine UA >=1000 mg/dL (Negative); Leukocyte Esterase Urine Negative (Negative); Nitrite Urine Negative (Negative); Specific Gravity - Urine >= 1.030 (1.005-1.025); UMIC TRIGGER UACC YES; Urine Blood Negative (Negative); Urine Ketones Negative (Negative); Urine Protein Trace mg/dL (Neg-Trace)
[2023-04-17 18:17] LABS: Bacteria Urine None Seen (None Seen); Hyaline Casts Urine 0-2 /LPF (0-2); RBC Urine 0-2 /HPF (0-2); WBC Urine 0-5 /HPF (0-5)
[2023-04-18 23:44] LABS: C. trachomatis RNA TMA NOT DETECTED (NOT DETECTED); Candida glabrata RNA NOT DETECTED (NOT DETECTED); Candida species RNA DETECTED (NOT DETECTED); N. gonorrhoeae RNA TMA NOT DETECTED (NOT DETECTED); Trichomonas vaginalis RNA NOT DETECTED (NOT DETECTED)
== END 2023-04-17 17:50 | disposition home or self-care (01) ==
LOC: HO.HHCLNP 17:49
PROVIDERS: Visit Provider Nurse Practitioner
DX: R39.9 Unspecified symptoms and signs involving the genitourinary system (principal); N89.8 Other specified noninflammatory disorders of vagina
CPT/HCPCS: 36415; 81001; 81513; 87481; 87491; 87591; 87661

== ENCOUNTER 2023-04-30 12:38 | Outpatient (AMB) | payer MEDICAID, SELFPAY ==
--- NOTE | 2023-04-30 12:56 | A.OFFVIS_ITS ---
Intake Vital Signs 04/30/23 13:00 Height 5 ft 2 in Weight 149 lb 14.629 oz BMI 27.4 BP 152/94 H Blood Pressure Location Lt brachial Position Sitting Pulse 91 Intake Visit Reasons: 8 week follow up constipation Intake Note: Jennifer presents in the office as a 8 week follow up for constipation. CC: She states that she is not having any concerns today - constipation is getting better each day. Option Trader Required: Yes Option Trader Name: Shania [id number] Allergies codeine [Codeine] Allergy (Mild, Verified 04/30/23 12:59) BURNING IN CHEST, chest pain sulfamethoxazole [From Bactrim] Allergy (Mild, Verified 04/30/23 12:59) ITCH,RASH Medication List - Last Reconciled 04/30/23 by Rasheeda Carrasquillo PA-C aspirin 81 mg PO DAILY atorvastatin 20 mg PO BEDTIME bisacodyl (Alophen (bisacodyl)) 5 mg PO BEDTIME blood glucose control high,low (FreeStyle Control solution) Twice a month blood sugar diagnostic (FreeStyle Lite Strips) 4 times a day 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 meter (FreeStyle Lite Meter kit) As directed calcium 600 mg PO calcium carbonate 600 mg PO QAM carvedilol 25 mg PO cetirizine 10 mg PO DAILY cevimeline 1 cap PO QAM cholecalciferol (vitamin D3) 50 mcg PO DAILY clonazepam 0.5 mg PO DAILY PRN clonidine HCl 0.1 mg PO BID cyclobenzaprine 10 mg PO Q8H PRN dapagliflozin propanediol (Farxiga) 5 mg PO QAM diltiazem HCl ER 360 mg PO DAILY docusate sodium (DOK) 100 mg PO DAILY dulaglutide (Trulicity) mg subcut QWEEK duloxetine 60 mg PO BEDTIME folic acid 1 mg PO DAILY furosemide 20 mg PO DAILY gabapentin 300 mg PO BID hydrocortisone 2.5% (Proctosol HC) 1 appl MI BEDTIME PRN lancets (TRUEplus Lancets) 4 times a day leflunomide 20 mg PO DAILY lisinopril 40 mg PO QAM loratadine 10 mg PO DAILY PRN melatonin 10 mg PO BEDTIME PRN methotrexate sodium 25 mg (10 x 2.5 mg) PO QWEEK naproxen 500 mg PO BID PRN sennosides (senna) 17.2 mg PO DAILY PRN tiotropium bromide (Spiriva with HandiHaler) 1 cap inhalation DAILY HPI HPI Comments History of Present Illness Details 62-year-old woman multiple comorbidities with chronic constipation- likely medication induced Consistent bowel regimen--try to maintain a normal bowel pattern- she says constipation is worse- she has BM most days-she is not consistent She does have bright red blood per rectum when straining She had cardiac work up for ortho surgery- which she decided against- Diabetes not well controlled No abdominal pain, Nausea, vomiting, hematemesis, fever chills PFSH Medical History DM2 (diabetes mellitus, type 2) Vitamin D deficiency Diabetes type 2, uncontrolled 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 rheumatoid arthritis custodial (current) use of insulin Diabetes type 2, controlled SOY (obstructive sleep apnea) COPD (chronic obstructive pulmonary disease) SOY (obstructive sleep apnea) Sicca syndrome Constipation Alopecia Sjogrens syndrome Osteoarthritis Rheumatoid arthritis Fibromyalgia Back pain Difficulty swallowing Diabetes GERD (gastroesophageal reflux disease) Depression Sleep apnea Asthma COPD (chronic obstructive pulmonary disease) Elevated cholesterol HTN (hypertension) Surgical History History of laryngoscopy Hx of hemorrhoidectomy History of bladder suspension procedure Hx of dilation and curettage Hx of tubal ligation History of repair of left rotator cuff Hx of colonoscopy History of esophagogastroduodenoscopy (EGD) Family History Father Cancer Mother Heart disease Diabetes Social History Household Members: Children and Other Household Members Other:: daughter, grandkids Are you a primary certified caregiver to a significant other at home: No Do you presently have visiting nurse or other home services: No Alcohol intake: never Patient Tobacco Use Status: Never used Tobacco e-Cigarette/Vaping Use: Never Used Second Hand Smoke Exposure: No 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al status: disabled 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 Review of Systems Const All systems reviewed & are unremarkable except as noted in HPI and below ENT Denies dysphagia Card Denies chest pain and Denies dyspnea Resp Denies dyspnea GI Denies abdominal pain, Reports hematochezia, Reports constipation, Denies dysphagia, Denies heartburn, Denies nausea and Denies vomiting Physical Exam Vital Signs: Last Vital Signs Pulse 91 04/30/23 13:00 BP 152/94 H 04/30/23 13:00 BMI result Body Mass Index 27.4 Const General: cooperative, comfortable and anxious Orientation/consciousness: patient oriented x3 Limitations: language barrier Eyes Sclerae: sclerae normal Resp Effort & Inspection: normal respiratory effort and able to speak in complete sentences Auscultation: clear to auscultation bilaterally Cardio Rate: regular rate Rhythm: regular rhythm Heart sounds: S1 normal heart sound present and S2 normal heart sound present GI Inspection: Yes obesity Palpation (GI): Soft to palpation and nontender Auscultation: normal bowel sounds Neuro General: patient oriented x3 Extrem General: Yes full ROM Psych Mental Status: mental status grossly normal Affect: Anxious affect present Attitude: cooperative Thought process: Normal thought process present Thought content: Normal thought content present Assessment & Plan Assessment & Plan (1) Chronic constipation: Comment: Multiple comorbidities, lengthy medication list likely plays a role Code(s): K59.09 - Other constipation Plan: encouraged consistent bowel regimen Maintain high-fiber diet (2) Hemorrhoids: Code(s): K64.9 - Unspecified hemorrhoids Plan: Avoid straining Continue with rectal cream (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 SPIROMETRY ON 12/16/2019 WAS ACTUALLY NORMAL. TX: She is to use albuterol HFA 2 puffs Q 4-6 hours only p.r.n. and has not needed to use it all. 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 238 grams PO ONCE 1 day PRN 238 grams 0RF laxative effect polyethylene glycol 3350 (Miralax) take 1-2 times daily x 1 week prior to prep day 17 grams PO DAILY PRN 510 grams 6RF laxative effect bisacodyl (Dulcolax (bisacodyl)) Day before procedure @ 12 noon Take 4 tablets by mouth followed by large glass of water 20 mg (4 x 5 mg) PO ONCE 1 day PRN 4 tabs 0RF colonoscopy prep Z12.11 - Encounter for screening for malignant neoplasm of colon Patient Instructions: 62-year-old female- Colonoscopy anesthesia consult MiraLax Gatorade prep extended, MiraLax 1-2 times daily for 1 week prior to prep day Entire day prior to colonoscopy clear liquids only Discuss medications She will discontinue Trulicity 1 week prior to procedure Insulin, half dose evening before no diabetes medication morning of procedure Encouraged to call questions or concerns Coding Level of Care Code Est Pt Level 4 (78794) Diagnoses Chronic constipation K59.09 Hemorrhoids K64.9 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
[2023-04-30 13:00] VITALS: BP 152/94; PULSE 91; BMI 27.4
== END 2023-04-30 14:17 | disposition home or self-care (01) ==
PROVIDERS: PCP Student in an Organized Health Care Education/Training Program; Visit Provider Physician Assistant
DX: K59.09 Other constipation (principal); K64.9 Unspecified hemorrhoids; Z79.4 Long term (current) use of insulin; J44.9 Chronic obstructive pulmonary disease, unspecified
CPT/HCPCS: 99214

== ENCOUNTER → 2023-04-30 12:38 | Outpatient (BNVA) | payer MEDICAID, SELFPAY | PROVIDERS: PCP Student in an Organized Health Care Education/Training Program; Visit Provider Physician Assistant | DX: K59.09 Other constipation (principal); K64.9 Unspecified hemorrhoids; J44.9 Chronic obstructive pulmonary disease, unspecified; Z79.4 Long term (current) use of insulin | CPT/HCPCS: 99212 ==

== ENCOUNTER 2023-05-09 11:57 | Day surgery (SDC) | payer MEDICAID, SELFPAY ==
[2023-05-07 14:53] VITALS: BMI 27.2
--- NOTE | 2023-05-08 09:03 | HO.ANESPROP2 ---
Documented by User: Chery Sanchez NP 05/08/23 09:07 HPI - Anesthesia Eval Consult details Narrative: 62yo F for Colonoscopy Last seen by [facility] 11/2022. Cleared for orthopedic surgery. skilled nursing methotrexate Anesthesia Pre-Procedure Meds Is the patient on any of the following meds?: Dulaglutide (Trulicity) and Any other SGL-1 drugs or drugs that delay gastric emptying (Farxiga) PMFSH Active Problems Active Problems: All Active Problems (Updated 05/07/23 @ 14:47 by Mima eRinoso RN) Hemorrhoids (Acute) Chronic constipation (Acute) Preoperative cardiovascular examination (Acute) Tear of tendon of right ankle (Acute) Osteoarthritis of right ankle (Acute) Osteoarthritis of right knee (Acute) Osteoarthritis of left knee (Acute) Tendinitis of right peroneus brevis tendon (Acute) Diabetes type 2, uncontrolled (Acute) Trigger finger, left ring finger (Acute) Trigger finger, right middle finger (Acute) Right ankle sprain (Acute) skilled nursing methotrexate user (Acute) Sjogren's syndrome (Acute) DM2 (diabetes mellitus, type 2) (Acute) Vitamin D deficiency (Acute) 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 rheumatoid arthritis (Acute) Elevated cholesterol (Acute) HTN (hypertension) (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 (Acute) SOY (obstructive sleep apnea) (Acute) COPD (chronic obstructive pulmonary disease) (Acute) Past Medical History Medical History DM2 (diabetes mellitus, type 2) Vitamin D deficiency 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 rheumatoid arthritis 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 SOY (obstructive sleep apnea) COPD (chronic obstructive pulmonary disease) Sicca syndrome Constipation Alopecia Sjogrens syndrome Osteoarthritis Rheumatoid arthritis Fibromyalgia Back pain Difficulty swallowing GERD (gastroesophageal reflux disease) Depression Asthma Elevated cholesterol HTN (hypertension) Family History Family History Father Cancer Mother Heart disease Diabetes Surgical History Surgical History History of laryngoscopy Hx of hemorrhoidectomy History of bladder suspension procedure Hx of dilation and curettage Hx of tubal ligation History of repair of left rotator cuff Hx of colonoscopy History of esophagogastroduodenoscopy (EGD) Social History Social History Household Members: Children and Other Household Members Other:: daughter, grandkids Are you a primary healthcare corporate account director to a significant other at home: No Do you presently have visiting nurse or other home services: No Alcohol intake: never Patient Tobacco Use Status: Never used Tobacco e-Cigarette/Vaping Use: Never Used Second Hand Smoke Exposure: No Use of substances other than those prescribed or required for medical reasons: No Are you DNR?: No Advance Directives: No Advance Directives Information Provided: Yes 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al status: disabled 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 Meds Allergies Allergy/AdvReac Type Severity Reaction Status Date / Time codeine [Codeine] Allergy Mild BURNING IN Verified 05/09/23 12:46 CHEST, chest pain sulfamethoxazole Allergy Mild ITCH,RASH Verified 05/09/23 12:46 [From Bactrim] Home Medications Medication Instructions Recorded Confirmed Last Taken Type clonidine HCl 0.1 mg tablet 0.1 mg PO BID 12/08/19 05/09/23 Unknown History diltiazem HCl 360 mg capsule,24 360 mg PO DAILY 12/08/19 05/09/23 Unknown History hr,extended release furosemide 20 mg tablet 20 mg PO DAILY 12/08/19 05/09/23 Unknown History aspirin 81 mg tablet,delayed 81 mg PO DAILY 05/12/20 05/09/23 05/06/23 History release docusate sodium 100 mg capsule 100 mg PO DAILY 05/12/20 05/09/23 Unknown History (DOK) clonazepam 0.5 mg tablet 0.5 mg PO DAILY PRN Anxiety 10/29/22 05/09/23 Unknown History leflunomide 20 mg tablet 20 mg PO DAILY 10/29/22 05/09/23 Unknown History loratadine 10 mg tablet 10 mg PO DAILY PRN allergies 10/29/22 05/09/23 Unknown History melatonin 5 mg tablet 10 mg PO BEDTIME PRN Insomnia 10/29/22 05/09/23 Unknown History sennosides 8.6 mg tablet (senna) 17.2 mg PO DAILY PRN constipation 10/29/22 05/09/23 Unknown History atorvastatin 20 mg tablet 20 mg PO BEDTIME 04/30/23 05/09/23 Unknown History calcium carbonate 600 mg calcium 600 mg PO QAM 04/30/23 05/09/23 Unknown History (1,500 mg) tablet carvedilol 25 mg tablet 25 mg PO BID 04/30/23 05/09/23 Unknown History cevimeline 30 mg capsule 1 cap PO QAM 04/30/23 05/09/23 Unknown History dapagliflozin propanediol 5 mg 5 mg PO QAM 04/30/23 05/09/23 05/05/23 History tablet (Farxiga) dulaglutide 1.5 mg/0.5 mL 3 mg subcut QWEEK 04/30/23 05/09/23 05/02/23 History subcutaneous pen injector (Trulicity) duloxetine 60 mg capsule,delayed 60 mg PO BEDTIME 04/30/23 05/09/23 Unknown History release folic acid 1 mg tablet 1 mg PO DAILY 04/30/23 05/09/23 Unknown History gabapentin 300 mg capsule 300 mg PO BID 04/30/23 05/09/23 Unknown History lisinopril 40 mg tablet 40 mg PO QAM 04/30/23 05/09/23 Unknown History tiotropium bromide 18 mcg capsule 1 cap inhalation DAILY 04/30/23 05/09/23 Unknown History with inhalation device (Spiriva with HandiHaler) Exam Height,Weight and Vital Signs: Height 5 ft 2 in Weight 67.585 kg Narrative Narrative: Per cardiac note: Echocardiogram with LVEF of 60-65%; severe septal hypertrophy. Myocardial perfusion imaging study shows probably normal perfusion. 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 SOY (obstructive sleep apnea) COPD (chronic obstructive pulmonary disease) Sicca syndrome Constipation Alopecia Sjogrens syndrome Osteoarthritis Rheumatoid arthritis Fibromyalgia Back pain Difficulty swallowing GERD (gastroesophageal reflux disease) Depression Asthma Elevated cholesterol HTN (hypertension) Family History Family History Father Cancer Mother Heart disease Diabetes Surgical History Surgical History History of laryngoscopy Hx of hemorrhoidectomy History of bladder suspension procedure Hx of dilation and curettage Hx of tubal ligation History of repair of left rotator cuff Hx of colonoscopy History of esophagogastroduodenoscopy (EGD) History of Problems with Anesthesia: No Social History Social History Household Members: Children and Other Household Members Other:: daughter, grandkids Are you a primary healthcare corporate account director to a significant other at home: No Do you presently have visiting nurse or other home services: No Alcohol intake: never Patient Tobacco Use Status: Never used Tobacco e-Cigarette/Vaping Use: Never Used Second Hand Smoke Exposure: No Use of substances other than those prescribed or required for medical reasons: No Are you DNR?: No Advance Directives: No Advance Directives Information Provided: Yes 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al status: disabled 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 Meds Allergies Allergy/AdvReac Type Severity Reaction Status Date / Time codeine [Codeine] Allergy Mild BURNING IN Verified 05/09/23 12:46 CHEST, chest pain sulfamethoxazole Allergy Mild ITCH,RASH Verified 05/09/23 12:46 [From Bactrim] Home Medications Medication Instructions Recorded Confirmed Last Taken Type clonidine HCl 0.1 mg tablet 0.1 mg PO BID 12/08/19 05/09/23 Unknown History diltiazem HCl 360 mg capsule,24 360 mg PO DAILY 12/08/19 05/09/23 Unknown History hr,extended release furosemide 20 mg tablet 20 mg PO DAILY 12/08/19 05/09/23 Unknown History aspirin 81 mg tablet,delayed 81 mg PO DAILY 05/12/20 05/09/23 05/06/23 History release docusate sodium 100 mg capsule 100 mg PO DAILY 05/12/20 05/09/23 Unknown History (DOK) clonazepam 0.5 mg tablet 0.5 mg PO DAILY PRN Anxiety 10/29/22 05/09/23 Unknown History leflunomide 20 mg tablet 20 mg PO DAILY 10/29/22 05/09/23 Unknown History loratadine 10 mg tablet 10 mg PO DAILY PRN allergies 10/29/22 05/09/23 Unknown History melatonin 5 mg tablet 10 mg PO BEDTIME PRN Insomnia 10/29/22 05/09/23 Unknown History sennosides 8.6 mg tablet (senna) 17.2 mg PO DAILY PRN constipation 10/29/22 05/09/23 Unknown History atorvastatin 20 mg tablet 20 mg PO BEDTIME 04/30/23 05/09/23 Unknown History calcium carbonate 600 mg calcium 600 mg PO QAM 04/30/23 05/09/23 Unknown History (1,500 mg) tablet carvedilol 25 mg tablet 25 mg PO BID 04/30/23 05/09/23 Unknown History cevimeline 30 mg capsule 1 cap PO QAM 04/30/23 05/09/23 Unknown History dapagliflozin propanediol 5 mg 5 mg PO QAM 04/30/23 05/09/23 05/05/23 History tablet (Farxiga) dulaglutide 1.5 mg/0.5 mL 3 mg subcut QWEEK 04/30/23 05/09/23 05/02/23 History subcutaneous pen injector (Trulicity) duloxetine 60 mg capsule,delayed 60 mg PO BEDTIME 04/30/23 05/09/23 Unknown History release folic acid 1 mg tablet 1 mg PO DAILY 04/30/23 05/09/23 Unknown History gabapentin 300 mg capsule 300 mg PO BID 04/30/23 05/09/23 Unknown History lisinopril 40 mg tablet 40 mg PO QAM 04/30/23 05/09/23 Unknown History tiotropium bromide 18 mcg capsule 1 cap inhalation DAILY 04/30/23 05/09/23 Unknown History with inhalation device (Spiriva with HandiHaler) Exam Airway Mallampati Class: II TM Dist: >3cm Neck ROM: Full Loose/Missing/Broken Teeth: No Heart: RRR Lungs: CTA Assessment and Plan Assessment Anesthesia Assessment: Anesthesia Plan Discussed Final Anesthetic Review History of Problems with Anesthesia: No NPO: Yes ASA Class: III Final Preanesthetic Review: Meds/Allgs Chart Reviewed, Consent Obtained/Reviewed and Anes Risks/Benef Reviewed Patient Risk: Intermediate Procedure Risk: Low Anesthetic Plan Anesthetic Plan: MAC: Disposition: Standard PACU
[2023-05-09 12:49] VITALS: BP 148/94; PULSE 81; RESP 16; TEMP 36.6; O2SAT 94; BMI 26.5
[2023-05-09] MEDS: Lactated Ringers 1,000 ML 100 ML IVCONT (13:12)
[2023-05-09 13:16] LABS: Glucose, Whole Blood 117 mg/dL (60-115)
--- NOTE | 2023-05-09 13:38 | MHC.SHP ---
Pre-Procedural Eval Section A - 24 Hr Update-Section A only Date of Service: 05/09/23 Section B - Complete if H&P > 30 days Chief Complaint: screening Relevant Family History (Specify if Yes): No Relevant Social History: None Present Medications: see Short Stay Collaborative assessment Medical History: Significant History (DM2 (diabetes mellitus, type 2) Vitamin D deficiency Diabetes type 2, uncontrolled 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 rheumatoid arthritis correction (current) use of insulin Diabetes type 2, controlled SOY (obstructive sleep apnea) COPD (chronic obstructive pulmonary disease) SOY (obstructive sleep apnea) Sicca syndrome ) History of Previous Operations: Relevant previous surgery/procedure and date(s) (History of laryngoscopy Hx of hemorrhoidectomy History of bladder suspension procedure Hx of dilation and curettage Hx of tubal ligation History of repair of left rotator cuff Hx of colonoscopy History of esophagogastroduodenoscopy (EGD)) Allergies: Allergies Allergy/AdvReac Type Severity Reaction Status Date / Time codeine [Codeine] Allergy Mild BURNING IN Verified 05/09/23 12:46 CHEST, chest pain sulfamethoxazole Allergy Mild ITCH,RASH Verified 05/09/23 12:46 [From Bactrim] Review of Systems Sugical H&P ROS: Negative: Constitution, Cardiovascular, Respiratory, Neurological, Psychiatric, Hem-Onc, Allergic/Immunologic, Gastrointestinal, Genitourinary, Musculoskeletal, Integumentary, Endocrine and Eyes/Ears/Nose/Throat Exam Surgical H&P Exam: Normal: HEENT, Normal: Heart, Normal: Lungs, Normal: Extremities, Normal: Abdomen, Normal: Skin and Normal: Neurological Plan Diagnosis/Plan: Unchanged I have reviewed the history and physical and performed a pertinent physical examination on my patient. No changes have occurred unless specified. Time Spent With Patient Time: Total time managing care of this patient today ____ minutes.
--- NOTE | 2023-05-09 14:13 | P.OP_ITS ---
Operative Note Operative Note Date of Service: 05/09/23 Narrative: Operative Information Procedure Description: Colonoscopy Indication: screening Anesthesia: MAC COLONOSCOPY Instrument: Olympus variable stiffness pediatric scope 190L Colonoscopy Monitoring: Vital signs and clinical assessment, continuous EKG monitoring, Pulse oximetry, Carbon Dioxide monitoring and blood pressure monitoring were done throughout the procedure. Colon withdrawal time was 12 minutes. Procedure: The patient was placed in the left lateral decubitis position and pre-procedure medications were administered. After a digital rectal examination of the ano-rectum, the video colonoscope was inserted into the rectum and advanced through the colon to the cecum/TI. The colonoscope was slowly withdrawn in a retrograde panoramic fashion and the colon mucosa was carefully examined including a retroflexed view of the rectum. Findings and interventions are described below. Procedure Difficulty: moderate, pressure applied Findings: Terminal Ileum-normal, bx taken Cecum: mosaic pattern to mucosa with some pigmented features, bx taken Ascending Colon: normal Transverse Colon -normal Descending Colon:normal Sigmoid Colon: mild mosaic pattern bx taken Rectum: Retroflexion with small internal hemorrhoids seen, grade I Anorectum - normal Intervention: cold forceps bx Colon preparation: [place] Bowel Preparation Scale Right colon; 1-2 Transverse colon: 1-2 Left colon; 1-2 (0 = Unprepared colon segment with mucosa not seen due to solid stool that cannot be cleared. 1 = Portion of mucosa of the colon segment seen, but other areas of the colon segment not well seen due to staining, residual stool and/or opaque liquid. 2 = Minor amount of residual staining, small fragments of stool and/or opaque liquid, but mucosa of colon segment seen well. 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
[2023-05-09 14:20] VITALS: BP 126/78; PULSE 86; RESP 18; TEMP 36.1; O2SAT 99
[2023-05-09 14:35] VITALS: BP 145/89; PULSE 81; RESP 18; TEMP 36.3; O2SAT 99
== END 2023-05-09 15:10 | disposition home or self-care (01) ==
PROVIDERS: PCP Student in an Organized Health Care Education/Training Program; Visit Provider Internal Medicine Gastroenterology
PROC: 0DJD8ZZ Inspection of Lower Intestinal Tract, Via Natural or Artificial Opening Endoscopic (ICD-10-PCS; CPT 45378; principal; 2023-05-09 13:30)
DX: K59.09 Other constipation (principal); K63.89 Other specified diseases of intestine; K64.0 First degree hemorrhoids; J44.9 Chronic obstructive pulmonary disease, unspecified; G47.33 Obstructive sleep apnea (adult) (pediatric); M35.00 Sjogren syndrome, unspecified; M05.9 Rheumatoid arthritis with rheumatoid factor, unspecified; E55.9 Vitamin D deficiency, unspecified; E11.9 Type 2 diabetes mellitus without complications; Z79.4 Long term (current) use of insulin; Z79.82 Long term (current) use of aspirin; Z79.85 Long-term (current) use of injectable non-insulin antidiabetic drugs; Z79.51 Long term (current) use of inhaled steroids; Z79.899 Other long term (current) drug therapy; Z88.2 Allergy status to sulfonamides; Z88.5 Allergy status to narcotic agent; Z98.890 Other specified postprocedural states
CPT/HCPCS: 45380; 82947; 88305; J2704

== ENCOUNTER → 2023-05-09 11:57 | Outpatient (BNV) | payer MEDICAID, SELFPAY | PROVIDERS: PCP Student in an Organized Health Care Education/Training Program; Visit Provider Internal Medicine Gastroenterology | DX: Z12.11 Encounter for screening for malignant neoplasm of colon (principal); K64.8 Other hemorrhoids | CPT/HCPCS: 45380 ==

== ENCOUNTER 2023-05-27 18:30 | Outpatient (REF) | payer MEDICAID, SELFPAY ==
[2023-05-28 11:56] LABS: BV Int Neg Control Negative (Negative); BV Int Pos Control Positive (Positive)
[2023-05-30 00:22] LABS: HPV mRNA E6/E7 rflx Not Detected (Not Detected)
== END 2023-05-27 18:31 | disposition home or self-care (01) ==
LOC: HO.HHCLNP 18:30
PROVIDERS: Visit Provider Advanced Practice Midwife
DX: Z01.419 Encounter for gynecological examination (general) (routine) without abnormal findings (principal); N89.8 Other specified noninflammatory disorders of vagina
CPT/HCPCS: 87480; 87510; 87624; 87660; 88142

== ENCOUNTER 2023-06-05 08:35 | Outpatient (REF) | payer MEDICAID, SELFPAY ==
--- NOTE | ~2023-06-05 | US_ITS ---
EXAMINATION: ULTRASOUND RENAL WITH DOPPLER CLINICAL INFORMATION: Hypertension; question renal artery stenosis. COMPARISON: None. TECHNIQUE: Real-time grayscale, color Doppler, and duplex Doppler evaluation of the kidneys and renal vasculature was performed. FINDINGS: RENAL MEASUREMENTS: Right: 11.2 x 5.4 x 5.8 cm (Sag x AP x TV) Left: 12.0 x 4.7 x 4.7 cm (Sag x AP x TV) The renal parenchyma appears normal. At the interpolar right kidney, 1.5 cm and 0.7 cm benign, simple cysts are seen, which require no imaging follow-up. At the interpolar aspect of the left kidney, a 2.7 cm benign, simple cyst, which requires no imaging follow-up. No definite renal calculus is seen. There is no hydronephrosis. DOPPLER INTERROGATION: Aorta: 83 cm/sec Right Main Renal Artery: Proximal: 94 cm/sec Mid: 124 cm/sec Distal: 66 cm/sec Left Main Renal Artery: Proximal: 96 cm/sec Mid: 89 cm/sec Distal: 84 cm/sec Renal-Aortic Ratio (RAR): Right: 1.49 Left: 1.16 Bilateral upper pole, interpolar and lower pole segmental arteriolar resistive indices are within normal limits. Bilateral upper pole, interpolar and lower pole segmental arteriolar pulse doppler waveforms are unremarkable, with uniformly rapid upstrokes and no parvus et tardus configuration. US/US renal BI IMPRESSION: Unremarkable renal ultrasound including Doppler. No hemodynamically significant renal artery stenosis is noted bilaterally.
--- NOTE | ~2023-06-05 | US_ITS ---
EXAMINATION: ULTRASOUND RENAL WITH DOPPLER CLINICAL INFORMATION: Hypertension; question renal artery stenosis. COMPARISON: None. TECHNIQUE: Real-time grayscale, color Doppler, and duplex Doppler evaluation of the kidneys and renal vasculature was performed. FINDINGS: RENAL MEASUREMENTS: Right: 11.2 x 5.4 x 5.8 cm (Sag x AP x TV) Left: 12.0 x 4.7 x 4.7 cm (Sag x AP x TV) The renal parenchyma appears normal. At the interpolar right kidney, 1.5 cm and 0.7 cm benign, simple cysts are seen, which require no imaging follow-up. At the interpolar aspect of the left kidney, a 2.7 cm benign, simple cyst, which requires no imaging follow-up. No definite renal calculus is seen. There is no hydronephrosis. DOPPLER INTERROGATION: Aorta: 83 cm/sec Right Main Renal Artery: Proximal: 94 cm/sec Mid: 124 cm/sec Distal: 66 cm/sec Left Main Renal Artery: Proximal: 96 cm/sec Mid: 89 cm/sec Distal: 84 cm/sec Renal-Aortic Ratio (RAR): Right: 1.49 Left: 1.16 Bilateral upper pole, interpolar and lower pole segmental arteriolar resistive indices are within normal limits. Bilateral upper pole, interpolar and lower pole segmental arteriolar pulse doppler waveforms are unremarkable, with uniformly rapid upstrokes and no parvus et tardus configuration. US/US renal doppler IMPRESSION: Unremarkable renal ultrasound including Doppler. No hemodynamically significant renal artery stenosis is noted bilaterally.
== END 2023-06-05 08:36 | disposition home or self-care (01) ==
LOC: HO.US 08:35
PROVIDERS: PCP Student in an Organized Health Care Education/Training Program; Visit Provider Student in an Organized Health Care Education/Training Program
DX: I10 Essential (primary) hypertension (principal)
CPT/HCPCS: 76775; 93975

== ENCOUNTER 2023-08-06 18:15 | Outpatient (REF) | payer MEDICAID, SELFPAY ==
[2023-08-07 05:41] LABS: CT PCR NOT DETECTED (Not Detect.); NG PCR NOT DETECTED (Not Detect.)
[2023-08-07 10:57] LABS: Bacterial Vaginosis PCR NEGATIVE (Negative); Candida Group PCR DETECTED (Not Detect); Candida glab krusei PCR NOT DETECTED (Not Detect); Trichomonas vaginalis PCR NOT DETECTED (Not Detect)
== END 2023-08-06 18:16 | disposition home or self-care (01) ==
LOC: HO.HHCLNP 18:15
PROVIDERS: Visit Provider Nurse Practitioner Family
DX: N89.8 Other specified noninflammatory disorders of vagina (principal)
CPT/HCPCS: 0352U; 0353U

== ENCOUNTER 2023-08-28 16:38 | Outpatient (REF) | payer MEDICAID, SELFPAY | END 2023-08-28 16:39 | disposition home or self-care (01) | LOC: HO.HHCLNP 16:38 | PROVIDERS: Visit Provider Advanced Practice Midwife | DX: R30.0 Dysuria (principal) | CPT/HCPCS: 87086 ==

== ENCOUNTER 2023-10-01 09:01 | Outpatient (REF) | payer OTHER, SELFPAY ==
--- NOTE | ~2023-10-01 | MM_ITS ---
EXAMINATION: BONE DENSITOMETRY CLINICAL INDICATION: Encounter for screening for osteoporosis. COMPARISON: Baseline BD dated 11/17/2010. TECHNIQUE: Using a [employer] DXA System (software version: 13.1) manufactured by [employer], dual-energy x-ray absorptiometry was performed of the lumbar spine and left hip. The images are of good technical quality. Summary results are attached. FINDINGS: AP SPINE L1-L4: Current: BMD 1.325 g/cm2, Z-score 2.7, T-score 1.2, normal, 0.4% increase from baseline (<5% change is not significant). Baseline: BMD 1.320 g/cm2. LEFT FEMUR, NECK: Current: BMD 1.085 g/cm2, Z-score 1.8, T-score 0.3, normal. Baseline: BMD 1.110 g/cm2. LEFT FEMUR, TOTAL: Current: BMD 1.168 g/cm2, Z-score 2.4, T-score 1.3, normal, 1.1% decrease from baseline (<5% change is not significant). Baseline: BMD 1.181 g/cm2. IDENTIFIED RISK FACTORS: Recurrent falls. Hysterectomy. Menopause. HISTORY OF FRACTURE: None listed. MEDICATIONS: Calcium supplement and/or multivitamin. Vitamin D. MM/XR DEXA axial skeleton IMPRESSION: 1. DIAGNOSIS: Normal bone density based on the lowest T-score value of 0.3 in the femoral neck applying World Health Organization criteria. 2. 10-YEAR FRACTURE RISK PREDICTION, FRAX: According to the guidelines, FRAX calculation should only be performed on patients in the osteopenia bone density category.?Therefore, FRAX was not performed on this patient.? 3. Treatment Recommendations: NOF guidelines recommend consideration for treatment in postmenopausal women and men age 50 and older presenting with the following: -A hip or vertebral (clinical or morphometric) fracture. -T-score less than or equal to -2.5 at the femoral neck or spine after appropriate evaluation to exclude secondary causes. -Low bone mass at the hip or spine and a 10-year fracture probability by FRAX of greater than or equal to 3% for hip fracture or greater than or equal to 20% for major osteoporotic fracture based on the [place] adapted WHO algorithm. 4. Other Recommendations: All treatment decisions require clinical judgment and consideration of individual patient factors, including patient preferences, comorbidities, previous drug use, risk factors not captured in the FRAX model (e.g. frailty, falls, vitamin D deficiency, increased bone turnover, interval significant decline in bone density) and possible under or overestimation of fracture risk by FRAX. FUTURE SCAN RECOMMENDATION: People with diagnosed cases of osteoporosis or at high risk for fracture should have regular bone mineral density tests. For patients eligible for Medicare, routine testing is allowed once every 2 years. The testing frequency can be increased to one year for patients who have rapidly progressing disease, those who are receiving or discontinuing medical therapy to restore bone mass, or have additional risk factors.
== END 2023-10-01 09:02 | disposition home or self-care (01) ==
LOC: HO.MAMMO 09:01
PROVIDERS: PCP Student in an Organized Health Care Education/Training Program; Visit Provider Advanced Practice Midwife
DX: Z13.820 Encounter for screening for osteoporosis (principal); Z78.0 Asymptomatic menopausal state
CPT/HCPCS: 77080

== ENCOUNTER 2023-11-17 13:10 | Emergency (ER) | payer OTHER, SELFPAY ==
--- NOTE | ~2023-11-17 | XR_ITS ---
EXAMINATION: XR LUMBOSACRAL SPINE CLINICAL INFORMATION: L paraspinal pain, L leg pain COMPARISON: Lumbar spine radiographs 10/02/2021 TECHNIQUE: 3 views of the lumbar spine FINDINGS: 5 nonrib-bearing lumbar-type vertebral bodies. Vertebral body heights are maintained. Levoconvex curvature of the lumbar spine. Grade 1 anterolisthesis of L4 on L5. Mild multilevel degenerative disc disease with loss of disc space height and facet arthropathy similar to prior. Paravertebral soft tissues are unremarkable. XR/XR lumbar spine 2-3V IMPRESSION: 1. Mild spondylosis of the lumbar spine, as above detailed, similar to prior. 2. Levoconvex curvature of the lumbar spine. Grade 1 anterolisthesis of L4 on L5. Electronically signed by: Lili Banda MD 11/17/2023 02:36 PM EDT
[2023-11-17 13:36] VITALS: BP 160/101; PULSE 71; RESP 16; TEMP 35.7; O2SAT 94; BMI 26.5
--- NOTE | 2023-11-17 13:39 | ED.BACK ---
HPI - Back Pain/Injury General Chief Complaint: Extremity Injury, Lower Stated Complaint: l leg pain Related Data Home Medications ?Medication ?Instructions ?Recorded ?Confirmed clonidine HCl 0.1 mg tablet 0.1 mg PO BID 12/08/19 05/09/23 diltiazem HCl 360 mg capsule,24 360 mg PO DAILY 12/08/19 05/09/23 hr,extended release furosemide 20 mg tablet 20 mg PO DAILY 12/08/19 05/09/23 aspirin 81 mg tablet,delayed 81 mg PO DAILY 05/12/20 05/09/23 release docusate sodium 100 mg capsule 100 mg PO DAILY 05/12/20 05/09/23 (DOK) clonazepam 0.5 mg tablet 0.5 mg PO DAILY PRN Anxiety 10/29/22 05/09/23 leflunomide 20 mg tablet 20 mg PO DAILY 10/29/22 05/09/23 loratadine 10 mg tablet 10 mg PO DAILY PRN allergies 10/29/22 05/09/23 melatonin 5 mg tablet 10 mg PO BEDTIME PRN Insomnia 10/29/22 05/09/23 sennosides 8.6 mg tablet (senna) 17.2 mg PO DAILY PRN constipation 10/29/22 05/09/23 atorvastatin 20 mg tablet 20 mg PO BEDTIME 04/30/23 05/09/23 calcium carbonate 600 mg PO QAM 04/30/23 05/09/23 carvedilol 25 mg tablet 25 mg PO BID 04/30/23 05/09/23 cevimeline 30 mg capsule 1 cap PO QAM 04/30/23 05/09/23 dapagliflozin propanediol 5 mg 5 mg PO QAM 04/30/23 05/09/23 tablet (Farxiga) dulaglutide 1.5 mg/0.5 mL 3 mg subcut QWEEK 04/30/23 05/09/23 subcutaneous pen injector ([facility]) duloxetine 60 mg capsule,delayed 60 mg PO BEDTIME 04/30/23 05/09/23 release folic acid 1 mg tablet 1 mg PO DAILY 04/30/23 05/09/23 gabapentin 300 mg capsule 300 mg PO BID 04/30/23 05/09/23 lisinopril 40 mg tablet 40 mg PO QAM 04/30/23 05/09/23 tiotropium bromide 18 mcg capsule 1 cap inhalation DAILY 04/30/23 05/09/23 with inhalation device (Spiriva with HandiHaler) Previous Rx's ?Medication ?Instructions ?Recorded blood glucose control high and low #1 ea 03/28/20 solution (FreeStyle Control solution) 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 meter (FreeStyle #1 ea 09/09/20 Lite Meter kit) blood sugar diagnostic (FreeStyle #150 ea 02/10/21 Lite Strips) lancets 33 gauge (TRUEplus Lancets) #120 ea 06/20/21 naproxen 500 mg tablet 500 mg PO BID PRN pain #14 tabs 07/12/21 cholecalciferol (vitamin D3) 50 50 mcg PO DAILY #90 caps 12/12/21 mcg (2,000 unit) capsule hydrocortisone 2.5 % topical cream 1 appl HI BEDTIME PRN hemorrhoids 01/15/23 with perineal applicator #30 grams (Proctosol HC) Allergies Allergy/AdvReac Type Severity Reaction Status Date / Time codeine [Codeine] Allergy Mild BURNING IN Verified 11/17/23 13:37 CHEST, chest pain sulfamethoxazole Allergy Mild ITCH,RASH Verified 11/17/23 13:37 [From Bactrim] FOR[facility]LY [facility], [facility] Past Medical History Medical History (Updated 11/17/23 @ 20:48 by Kaylen Zhao CNP) DM2 (diabetes mellitus, type 2) Vitamin D deficiency 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 rheumatoid arthritis care home (current) use of insulin SOY (obstructive sleep apnea) COPD (chronic obstructive pulmonary disease) Sicca syndrome Constipation Alopecia Sjogrens syndrome Osteoarthritis Rheumatoid arthritis Fibromyalgia Back pain Difficulty swallowing GERD (gastroesophageal reflux disease) Depression Asthma Elevated cholesterol HTN (hypertension) Surgical History (Updated 05/13/23 @ 15:37 by Emy Hong) History of laryngoscopy Hx of hemorrhoidectomy History of bladder suspension procedure Hx of dilation and curettage Hx of tubal ligation History of repair of left rotator cuff Hx of colonoscopy History of esophagogastroduodenoscopy (EGD) Family History Family History Father Cancer Mother Heart disease Diabetes Social History Social History Household Members: Children and Other Household Members Other:: daughter, grandkids Are you a primary physician locums urgent care to a significant other at home: No Do you presently have visiting nurse or other home services: No Alcohol intake: never Patient Tobacco Use Status: Never used Tobacco e-Cigarette/Vaping Use: Never Used Second Hand Smoke Exposure: No Advance Directives: No Advance Directives Information Provided: No Do you have a plan to hurt others: No Plan 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al status: disabled 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 Physical Exam Vital Signs: Vital Signs: Last Vital Signs Temp 96.2 F L 11/17/23 13:36 Pulse 71 11/17/23 13:36 Resp 16 11/17/23 13:36 BP 160/101 H 11/17/23 13:36 Pulse Ox 94 11/17/23 13:36 O2 Del Method Room Air 11/17/23 13:36 BMI result Body Mass Index 26.5 Course Course Course Narrative: This is an RME performed by Belinda Zhao CNP: Additional HPI, ROS, PE not included below will be deferred to primary provider. Patient is a 63-year-old female who presents to the emergency department for evaluation of Left lower back pain radiating down the leg with associated numbness with onset 2 days ago. Reports a history of similar pain in the past that only lasted a few hours. She jumped should take Tylenol without relief. No precipitating injury. Denies any dysuria, bladder bowel dysfunction, saddle paresthesias. Plan: XR, urinalysis Discharge Plan Discharge Clinical Impression: Back pain Patient Disposition: Left W/O Completing Treatment Prescriptions: No Action (DME) 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 meter [FreeStyle Lite Meter] Kit See Rx Instructions miscellaneous .MEDSUPPLY Qty: 1 0RF Rx Instructions: As directed (DME) FreeStyle Lite Strips Strip See Rx Instructions .ROUTE .MEDSUPPLY Qty: 150 11RF Rx Instructions: 4 times a day (DME) lancets [TRUEplus Lancets] 33 gauge misc See Rx Instructions .ROUTE .MEDSUPPLY Qty: 120 11RF Rx Instructions: 4 times a day cholecalciferol (vitamin D3) 50 mcg (2,000 unit) capsule 50 mcg PO DAILY Qty: 90 0RF diltiazem HCl 360 mg Capsule,Extended Release 24 Hr 360 mg PO DAILY clonidine HCl 0.1 mg Tablet 0.1 mg PO BID furosemide 20 mg Tablet 20 mg PO DAILY aspirin 81 mg tablet,delayed release (DR/EC) 81 mg PO DAILY docusate sodium [DOK] 100 mg capsule 100 mg PO DAILY naproxen 500 mg tablet 500 mg PO BID PRN (Reason: pain) Qty: 14 0RF (DME) FreeStyle Control Solution See Rx Instructions .ROUTE .MEDSUPPLY Qty: 1 2RF Rx Instructions: Twice a month sennosides [senna] 8.6 mg tablet 17.2 mg PO DAILY PRN (Reason: constipation) melatonin 5 mg tablet 10 mg PO BEDTIME PRN (Reason: Insomnia) clonazepam 0.5 mg tablet 0.5 mg PO DAILY PRN (Reason: Anxiety) leflunomide 20 mg tablet 20 mg PO DAILY loratadine 10 mg tablet 10 mg PO DAILY PRN (Reason: allergies) gabapentin 300 mg capsule 300 mg PO BID Trulicity 1.5 mg/0.5 mL pen injector 3 mg subcut QWEEK dapagliflozin propanediol [Farxiga] 5 mg tablet 5 mg PO QAM duloxetine 60 mg capsule,delayed release(DR/EC) 60 mg PO BEDTIME tiotropium bromide [Spiriva with HandiHaler] 18 mcg capsule, w/inhalation device 1 cap inhalation DAILY cevimeline 30 mg capsule 1 cap PO QAM lisinopril 40 mg tablet 40 mg PO QAM calcium carbonate 600 mg calcium (1,500 mg) tablet 600 mg PO QAM atorvastatin 20 mg tablet 20 mg PO BEDTIME carvedilol 25 mg tablet 25 mg PO BID folic acid 1 mg tablet 1 mg PO DAILY hydrocortisone [Proctosol HC] 2.5 % cream with perineal applicator 1 appl HI BEDTIME PRN (Reason: hemorrhoids) Qty: 30 3RF Discharge Date/Time: 11/17/23 19:58
== END 2023-11-17 19:58 | disposition left against medical advice (07) ==
PROVIDERS: Emergency Provider Emergency Medicine Emergency Medical Services; PCP Student in an Organized Health Care Education/Training Program
DX: M54.50 Low back pain, unspecified (principal); E11.9 Type 2 diabetes mellitus without complications; I10 Essential (primary) hypertension; Z79.899 Other long term (current) drug therapy
CPT/HCPCS: 72100; 99281; 99283

== ENCOUNTER 2023-12-25 06:56 | Outpatient (REF) | payer OTHER, SELFPAY ==
[2023-12-25 07:47] LABS: Hematocrit 44.2 % (37.0-47.0); Mean Corpuscular HGB Conc 33.9 g/dl (31.0-35.0); Mean Corpuscular Hemoglobin 29.6 pg (27.0-33.0); Mean Corpuscular Volume 87.4 fL (80.0-98.0); Mean Platelet Volume 9.8 fL (9.4-12.3); Platelet Count 277 X10*3/uL (160-400); Red Blood Count 5.06 X10*6/uL (4.20-5.50); White Blood Count 6.2 X10*3/uL (4.8-10.8)
[2023-12-25 08:13] LABS: Estimated Average Glucose 189 mg/dL; Hemoglobin A1C 247.4718 umol/L; Hemoglobin A1c % 8.2 % (<6.0); Total Hemoglobin (HGBA1C) 3774.1037 umol/L
[2023-12-25 08:21] LABS: Parathyroid Hormone Intact 141.5 pg/mL (8.7-77.1)
[2023-12-25 08:25] LABS: Alanine Aminotransferase 12 U/L (0-31); Alkaline Phosphatase 121 U/L (39-117); Anion Gap 12 (12-20); Aspartate Amino Transferase 24 U/L (5-31); Bilirubin Total 0.4 mg/dL (0.0-1.0); Blood Urea Nitrogen 12 mg/dL (9-16); Calcium 9.5 mg/dL (8.4-10.2); Carbon Dioxide 26 mmol/L (22-29); Chloride 108 mmol/L (96-108); Cholesterol 154 mg/dL (<200); Estimated Glomerular Filt Rate > 60; Gamma Glutamyl Transpeptidase 13 U/L (7-33); Glucose Random 175 mg/dL (60-115); HDL Cholesterol 44 mg/dL (>40); LDL Cholesterol Calculated 64 mg/dL (<100); Potassium 3.5 mmol/L (3.3-5.1); Sodium 142 mmol/L (135-145); Total Protein 7.8 g/dL (6.5-8.0); Triglycerides 232 mg/dL (<150)
[2023-12-25 08:36] LABS: Creatinine Urine 50.21 mg/dL; Microalbum/Creatinine Ratio Ur 155.3 ug/mg cr (<30)
[2023-12-25 08:40] LABS: TSH reflex Free T4 1.65 uIU/mL (0.32-4.0); Vitamin D 25-OH Total 53.3 ng/mL (>30)
[2023-12-25 08:50] LABS: Folate 13.9 ng/mL (> or = 4.0); Vitamin B12 357 pg/mL (200-900)
[2023-12-31 23:28] LABS: Alkaline Phosphatase Bone 19.9 mcg/L (5.6-29.0)
== END 2023-12-25 06:57 | disposition home or self-care (01) ==
LOC: HO.LAB 06:56
PROVIDERS: PCP Student in an Organized Health Care Education/Training Program; Visit Provider Student in an Organized Health Care Education/Training Program
DX: Z00.00 Encounter for general adult medical examination without abnormal findings (principal); R74.8 Abnormal levels of other serum enzymes; Z13.1 Encounter for screening for diabetes mellitus
CPT/HCPCS: 36415; 80053; 80061; 82043; 82306; 82570; 82607; 82746; 82977; 83036; 83970; 84075; 84443; 85027

== ENCOUNTER 2024-02-10 12:31 | Outpatient (AMB) | payer OTHER, SELFPAY ==
[2024-02-10 12:45] VITALS: BP 116/72; PULSE 85; BMI 26.6
--- NOTE | 2024-02-10 12:45 | MHC.OFFVIS ---
Vital Signs 02/10/24 12:45 Height 5 ft 2 in Weight 145 lb 8.081 oz BMI 26.6 BP 116/72 Blood Pressure Location Lt brachial Position Sitting Pulse 85 Pulse Source Pulse Oximeter Intake Visit Reasons: T2DM/elevated PTH Intake Note: Patient presents today for D2MT follow up visit. Last Diabetic Eye exam: 01/2024 Last Podiatry Visit: Doesn't have one Random Glucose: 207 mg/dl HgA1c: 8.2% 12/25/23 Appliance Service Representative Required: No Accompanied by: Self / Same As Patient Allergies codeine [Codeine] Allergy (Mild, Verified 02/10/24 12:49) BURNING IN CHEST, chest pain sulfamethoxazole [From Bactrim] Allergy (Mild, Verified 02/10/24 12:49) ITCH,RASH Medication List - Last Reconciled 02/10/24 by Haydee Roper MD aspirin 81 mg PO DAILY atorvastatin 20 mg PO BEDTIME blood glucose control high,low (FreeStyle Control solution) Twice a month blood sugar diagnostic (FreeStyle Lite Strips) 4 times a day 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 meter (FreeStyle Lite Meter kit) As directed calcium carbonate 600 mg PO QAM carvedilol 25 mg PO BID cevimeline 1 cap PO QAM cholecalciferol (vitamin D3) 50 mcg PO DAILY clonazepam 0.5 mg PO DAILY PRN clonidine HCl 0.1 mg PO BID dapagliflozin propanediol (Farxiga) 10 mg PO DAILY diltiazem HCl ER 360 mg PO DAILY docusate sodium (DOK) 100 mg PO DAILY duloxetine 60 mg PO BEDTIME folic acid 1 mg PO DAILY furosemide 20 mg PO DAILY gabapentin 300 mg PO BID hydrocortisone 2.5% (Proctosol HC) 1 appl [place] BEDTIME PRN lancets (TRUEplus Lancets) 4 times a day leflunomide 20 mg PO DAILY loratadine 10 mg PO DAILY PRN losartan 100 mg PO DAILY melatonin 10 mg PO BEDTIME PRN naproxen 500 mg PO BID PRN semaglutide (Ozempic) 1 mg subcut QWEEK sennosides (senna) 17.2 mg PO DAILY PRN HPI Comments Details: 63-year-old female coming in today for follow up of type 2 diabetes mellitus as well as evaluation for hyperparathyroidism. She was last seen her in our clinic for type 2 diabetes mellitus back in 2021. Past medical history: Diabetes type 2 hypertension, dyslipidemia, COPD, SOY, GERD, migraines, depression, Sjogren's syndrome, arthritis Diabetes mellitus History of diabetes Diagnosed in 2016 Prior therapy: Trulicity stopped in October 2023 due to worsening control , acarbose 50mg TID before meals. Intolerant of metformin as it gave her reflux Current regimen: Farxiga 10 mg daily Ozempic 1 mg weekly on Wednesdays ( increased from 0.5 mg to 1 mg in January 2024) Reports symptoms of hyperglycemia including polyphagia, polyuria, polydipsia. Denies any hypoglycemic symptoms. SMBG's Checks fasting sugars daily Did not bring glucometer today she brought a paper with sugar readings 130s to 160s mostly had a few 120s Random Glucose: 207 mg/dl HgA1c: 8.2% 12/25/23 Complications Eye exam: Last Diabetic Eye exam: 01/2024, no retinopathy Last Podiatry Visit: Doesn't have one Neuropathy: does report symptoms of neuropathy with burning pain in feet , on gabapentin 400 mg BID Kidney disease: urine tonny /creatinf ratio from elevated at 155 up from 19 back in 2022, GFr >60 from December 2023 Macrovascular complications: No history of macrovascular complications. Statin: on atorvastatin 20 mg daily , LDL 65 from Dec 2023 at goal of <70 but TGL high at 232 SAL/ARB: on losartan 100 mg daily BP at goal today on corge 25 BID , losartan 100 mg daily , furosemide 20 mg daily Exercise: limited she says Diet control: Daughter lives with her and does most of the cooking BF 7 am: bread with eggd, coffee with 2 sugars, 1 creamer Lunch at noon: cereal conrflakes with milk Dinner at 4 pm: rice with beans , pork or chicken No dessert Soda or jim eri not diet twice a day with meals He has never had any hospitalizations for hyperglycemia/hypoglycemia. Hyperparathyroidism Lab from 12/25/2023 showed elevated PTH level of 141.5. Unclear why this was done. Her calcium levels have always been normal mostly anywhere from 9.2-10.1. Albumin of 4 mostly. Once she had a borderline high calcium of 10.2, however albumin was 3.9 so if we corrected this would be 10. No ionized calcium in the chart. Normal vitamin-D level of 53.3. Normal kidney function from December 2023 with the GFR of greater than 60, creatinine of 0.73. DEXA scan September 2023 showed normal bone density. No history of kidney stones, renal ultrasound from June 2023 without any evidence of kidney stones. Mother had kidney stones , sister had kidney stones Surgical menopause with hysterectomy at age 25 for control ??? per patient still had ovaries, started having hot flashes at 50 Vitamin D 2000 units daily on calcium 600 mg daily plus some milk in cereal, no yogurt, cheese often Physical exam General: sitting comfortably in no acute distress HEENT: normocephalic/atraumatic, Neck: supple, symmetrical Cardiac: normal heart sounds Pulm: normal breath sounds B/L, no added breath sounds Abd: not distended, no tenderness Extremities: no edema, no signs of myxedema Neuro: AAO x3, Speech: normal, no facial droop, moving all 4 extremities Skin: no rash Foot exam: intact sensation to monofilament, intact pulses, intact vibration Laboratory Tests 03/21/18 05/04/18 05/06/18 09:30 08:02 07:00 Creatinine Estimated GFR Glucose (Clinic) Random Glucose Hemoglobin A1c % Calcium 9.6 8.4 D Albumin 4.1 Triglycerides Cholesterol LDL Cholesterol, Calc HDL Cholesterol 25-OH Vitamin D Total TSH PTH Intact Urine Creatinine Urine Microalbumin Microalb/Creat Ratio 11/27/18 12/08/19 12/21/20 08:00 13:14 14:35 Creatinine Estimated GFR Glucose (Clinic) Random Glucose Hemoglobin A1c % 5.7 Calcium 9.9 Albumin 3.8 Triglycerides Cholesterol LDL Cholesterol, Calc HDL Cholesterol 25-OH Vitamin D Total TSH PTH Intact Urine Creatinine Urine Microalbumin Microalb/Creat Ratio 01/21/21 07/12/21 04/11/22 22:07 16:53 15:11 Creatinine Estimated GFR Glucose (Clinic) Random Glucose Hemoglobin A1c % Calcium 9.6 10.1 9.5 Albumin 4.0 Triglycerides Cholesterol LDL Cholesterol, Calc HDL Cholesterol 25-OH Vitamin D Total TSH PTH Intact Urine Creatinine Urine Microalbumin Microalb/Creat Ratio 10/04/22 10/26/22 04/04/23 09:42 13:54 08:42 Creatinine Estimated GFR Glucose (Clinic) Random Glucose Hemoglobin A1c % 8.2 7.8 H Calcium 9.3 10.2 D 9.2 D Albumin 3.8 3.9 3.9 Triglycerides Cholesterol LDL Cholesterol, Calc HDL Cholesterol 25-OH Vitamin D Total TSH PTH Intact Urine Creatinine 115.21 Urine Microalbumin 22.0 Microalb/Creat Ratio 19.0 12/25/23 12/25/23 02/10/24 07:05 07:08 12:52 Creatinine 0.73 Estimated GFR > 60 Glucose (Clinic) 207 H Random Glucose 175 H Hemoglobin A1c % 8.2 H Calcium 9.5 Albumin 4.0 Triglycerides 232 H Cholesterol 154 LDL Cholesterol, Calc 64 HDL Cholesterol 44 25-OH Vitamin D Total 53.3 TSH 1.65 PTH Intact 141.5 H Urine Creatinine 50.21 Urine Microalbumin 78.0 Microalb/Creat Ratio 155.3 H Laboratory Tests 04/11/22 04/04/23 12/25/23 15:11 08:42 07:08 Potassium 3.1 L 3.5 Renin Activity 0.95 Aldosterone 8 Aldosterone/Renin Ratio 8.4 Random Cortisol 11.7 Imaging BONE DENSITOMETRY 09/24 CLINICAL INDICATION: Encounter for screening for osteoporosis. COMPARISON: Baseline BD dated 11/17/2010. TECHNIQUE: Using a MiArch DXA System (software version: 13.1) manufactured by [employer], dual-energy x-ray absorptiometry was performed of the lumbar spine and left hip. The images are of good technical quality. Summary results are attached. FINDINGS: AP SPINE L1-L4: Current: BMD 1.325 g/cm2, Z-score 2.7, T-score 1.2, normal, 0.4% increase from baseline (<5% change is not significant). Baseline: BMD 1.320 g/cm2. LEFT FEMUR, NECK: Current: BMD 1.085 g/cm2, Z-score 1.8, T-score 0.3, normal. Baseline: BMD 1.110 g/cm2. LEFT FEMUR, TOTAL: Current: BMD 1.168 g/cm2, Z-score 2.4, T-score 1.3, normal, 1.1% decrease from baseline (<5% change is not significant). Baseline: BMD 1.181 g/cm2. IDENTIFIED RISK FACTORS: Recurrent falls. Hysterectomy. Menopause. HISTORY OF FRACTURE: None listed. MEDICATIONS: Calcium supplement and/or multivitamin. Vitamin D. MM/XR DEXA axial skeleton IMPRESSION: 1. DIAGNOSIS: Normal bone density based on the lowest T-score value of 0.3 in the femoral neck applying World Health Organization criteria. 2. 10-YEAR FRACTURE RISK PREDICTION, FRAX: According to the guidelines, FRAX calculation should only be performed on patients in the osteopenia bone density category.?Therefore, FRAX was not performed on this patient.? EXAMINATION: ULTRASOUND RENAL WITH DOPPLER 06/25 CLINICAL INFORMATION: Hypertension; question renal artery stenosis. COMPARISON: None. TECHNIQUE: Real-time grayscale, color Doppler, and duplex Doppler evaluation of the kidneys and renal vasculature was performed. FINDINGS: RENAL MEASUREMENTS: Right: 11.2 x 5.4 x 5.8 cm (Sag x AP x TV) Left: 12.0 x 4.7 x 4.7 cm (Sag x AP x TV) The renal parenchyma appears normal. At the interpolar right kidney, 1.5 cm and 0.7 cm benign, simple cysts are seen, which require no imaging follow-up. At the interpolar aspect of the left kidney, a 2.7 cm benign, simple cyst, which requires no imaging follow-up. No definite renal calculus is seen. There is no hydronephrosis. DOPPLER INTERROGATION: Aorta: 83 cm/sec Right Main Renal Artery: Proximal: 94 cm/sec Mid: 124 cm/sec Distal: 66 cm/sec Left Main Renal Artery: Proximal: 96 cm/sec Mid: 89 cm/sec Distal: 84 cm/sec Renal-Aortic Ratio (RAR): Right: 1.49 Left: 1.16 Bilateral upper pole, interpolar and lower pole segmental arteriolar resistive indices are within normal limits. Bilateral upper pole, interpolar and lower pole segmental arteriolar pulse doppler waveforms are unremarkable, with uniformly rapid upstrokes and no parvus et tardus configuration. US/US renal BI IMPRESSION: Unremarkable renal ultrasound including Doppler. No hemodynamically significant renal artery stenosis is noted bilaterally. [facility] Medical History (Updated 02/10/24 @ 13:50 by Haydee Roper MD) Hyperparathyroidism DM2 (diabetes mellitus, type 2) Vitamin D deficiency 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 rheumatoid arthritis assisted (current) use of insulin SOY (obstructive sleep apnea) COPD (chronic obstructive pulmonary disease) Sicca syndrome Constipation Alopecia Sjogrens syndrome Osteoarthritis Rheumatoid arthritis Fibromyalgia Back pain Difficulty swallowing GERD (gastroesophageal reflux disease) Depression Asthma Elevated cholesterol HTN (hypertension) Surgical History History of laryngoscopy Hx of hemorrhoidectomy History of bladder suspension procedure Hx of dilation and curettage Hx of tubal ligation History of repair of left rotator cuff Hx of colonoscopy History of esophagogastroduodenoscopy (EGD) Family History Father Cancer Mother Heart disease Diabetes Social History Household Members: Children and Other Household Members Other:: daughter, grandkids Are you a primary child care centre director to a significant other at home: No Do you presently have visiting nurse or other home services: No Alcohol intake: never Patient Tobacco Use Status: Never used Tobacco e-Cigarette/Vaping Use: Never Used Second Hand Smoke Exposure: No 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al status: disabled 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 Physical Exam Vital Signs: Last Vital Signs Pulse 85 02/10/24 12:45 BP 116/72 02/10/24 12:45 BMI result Body Mass Index 26.6 Assessment & Plan Assessment & Plan (1) DM2 (diabetes mellitus, type 2): Code(s): E11.9 - Type 2 diabetes mellitus without complications Category: Medical Qualifiers: Diabetes mellitus halfway insulin use: without long chain beamer use Diabetes mellitus complication status: with neurologic complications Diabetes mellitus complication detail: with polyneuropathy Qualified Code(s): E11.42 - Type 2 diabetes mellitus with diabetic polyneuropathy Plan: 63-year-old female coming in today for follow up of type 2 diabetes mellitus without long-term insulin use with complications of neuropathy. A1c at 8.2% on 12/25/2023 up from 7.8% in April 2023 PCP switched from Trulicity to Ozempic in October 2023 and she was just type titrated on the Ozempic from 0.5 mg weekly to 1 mg weekly January 2024. He is also on Farxiga 10 mg daily. Appropriate switch and I will wait for her to complete 3 months on Ozempic 1 mg weekly before we titrate up to 2 mg weekly dose. If she continues to have inadequate control we will consider switching over to Mounjaro. Weight has plateaued since May 2023 and she remained stable around 145 lb. Plan: -continue Ozempic 1 mg weekly -continue Farxiga 10 mg daily -continue to monitor blood sugars daily with fasting and a few 2 hours post meal -career education teacher referral placed, she does have some dietary indiscretion, counseled regarding eliminating soda and lowering sugar in coffee, we will also have her see career education teacher (2) HTN (hypertension): Code(s): I10 - Essential (primary) hypertension Category: Medical Qualifiers: Hypertension type: essential hypertension Qualified Code(s): I10 - Essential (primary) hypertension Plan: Blood pressure at goal today. It seems like at some point her blood pressure was uncontrolled, she is currently on losartan 100 mg daily, furosemide 20 mg daily carvedilol 25 mg b.i.d.. She was being worked up for resistant hypertension which showed normal renal Doppler. She was noted to have a suppressed renin of 0.95, with a 1 evidence of low potassium of 3.1, otherwise normal potassium levels. Aldosterone was 8. Technically she did not need the cut off for primary hyperaldosteronism however this is a spectrum and with a suppressed renin while someone is on an Sal or Arb such as losartan, as suspicious. I will repeat her aldosterone and renin levels. I am also obtaining a 24 hour urine collection for calcium evaluation, this is a good time for me to also look at her 24 hour urine aldosterone levels. She does eat adequate salt in her diet, hence we will just check a 24 hour urine aldosterone to see how she is responding to her salt intake. Plan: -continue current regimen -check aldosterone, renin, 24 hour urine aldosterone and sodium -even if aldosterone is not elevated, given suppressed renin, she might benefit from MRA antagonist such as spironolactone for low renin hypertension (3) Hyperparathyroidism: Code(s): E21.3 - Hyperparathyroidism, unspecified Category: Medical Plan: Lab from 12/25/2023 showed elevated PTH level of 141.5. Unclear why this was done. Her calcium levels have always been normal mostly anywhere from 9.2-10.1. Albumin of 4 mostly. Once she had a borderline high calcium of 10.2, however albumin was 3.9 so if we corrected this would be 10. No ionized calcium in the chart. Normal vitamin-D level of 53.3. Normal kidney function from December 2023 with the GFR of greater than 60, creatinine of 0.73. DEXA scan September 2023 showed normal bone density. No history of kidney stones, renal ultrasound from June 2023 without any evidence of kidney stones. Mother had kidney stones , sister had kidney stones Given normal vitamin-D level, this is not secondary hyperparathyroidism. Kidney function is on so unremarkable. We will evaluate a 24 hour urine calcium level as idiopathic hypercalciuria can result in hyperparathyroidism. If those levels are normal, differential would be normocalcemic hyperparathyroidism. Given that her kidney function in with GFR greater than 60, no history of kidney stones with clear renal ultrasound recently, normal bone density scan, and if she gets 24 hour urine calcium levels that are also normal, we will just observe with repeat levels every 6 months to annually. 24 hour urine calcium levels we will also evaluate for F HH. Plan: -check 24 hour urine calcium, creatinine levels -repeat calcium,, albumin, phosphorus, magnesium, ionized calcium, creatinine levels -follow up in 4 weeks to discuss results Plan I spent 40 minutes in reviewing the record, seeing the patient and documenting in the medical record. Orders: Orders Calcium Today E21.3 - Hyperparathyroidism, unspecified, I10 - Essential (primary) hypertension Calcium, Ionized Today E21.3 - Hyperparathyroidism, unspecified, I10 - Essential (primary) hypertension Parathyroid Hormone Intact Today E21.3 - Hyperparathyroidism, unspecified, I10 - Essential (primary) hypertension Magnesium Today E21.3 - Hyperparathyroidism, unspecified, I10 - Essential (primary) hypertension Basic Metabolic Panel Today E21.3 - Hyperparathyroidism, unspecified, I10 - Essential (primary) hypertension Aldosterone Today E21.3 - Hyperparathyroidism, unspecified, I10 - Essential (primary) hypertension Renin Today E21.3 - Hyperparathyroidism, unspecified, I10 - Essential (primary) hypertension Aldosterone, 24Hr Urine Today E21.3 - Hyperparathyroidism, unspecified, I10 - Essential (primary) hypertension Creatinine, 24 Hr Group Today E21.3 - Hyperparathyroidism, unspecified, I10 - Essential (primary) hypertension Calcium, 24 Hr Ur Today E21.3 - Hyperparathyroidism, unspecified, I10 - Essential (primary) hypertension Albumin Level Today E21.3 - Hyperparathyroidism, unspecified, I10 - Essential (primary) hypertension Phosphorus Today E21.3 - Hyperparathyroidism, unspecified, I10 - Essential (primary) hypertension Sodium, 24Hr Urine Group Today E21.3 - Hyperparathyroidism, unspecified, I10 - Essential (primary) hypertension Referrals Junior Graphic Designer Nutrition Referral E11.9 - Type 2 diabetes mellitus without complications Medications: New semaglutide (Ozempic) 1 mg (0.75 mL) subcut QWEEK 3 mL 6RF dapagliflozin propanediol (Farxiga) 10 mg PO DAILY 30 tabs 8RF Patient Instructions: Continue Ozempic 1 mg weekly and Farxiga 10 mg daily Continue checking blood sugars fasting , shoudl be between 90 to 120 mg /dl Sometimes like two or three times a week check blood sugar 2 hrs after a meal, should be < 140 mg /dl See nutrionist Do 24 hr urine collection and same day as you hand in the urine do blood work 24 hr urine collection instructions You have been asked to collect your urine for 24 hours to assess for calcium excretion. You must choose a 24 hour period of time when you will be home. The morning of the first day, DISCARD the FIRST morning void and then note the time. You will collect every single void from then on for 24 hours. For example, if you wake up at 6am and urinate, flush down that void. You will then collect every drop of urine all day and all night through 6am the following day. You will urinate one last time at 6am for the collection. The jug of urine must be kept in the refrigerator until you bring it to the lab.You have been asked to collect your urine for 24 hours to assess for calcium excretion. You must choose a 24 hour period of time when you will be home. The morning of the first day, DISCARD the FIRST morning void and then note the time. You will collect every single void from then on for 24 hours. For example, if you wake up at 6am and urinate, flush down that void. You will then collect every drop of urine all day and all night through 6am the following day. You will urinate one last time at 6am for the collection. The jug of urine must be kept in the refrigerator until you bring it to the lab. Follow up in 4 weeks to discuss results Coding Level of Care Code Est Pt Level 5 (03257) Diagnoses Type 2 diabetes mellitus with diabetic polyneuropathy, without long-term current use of insulin E11.42 Diabetes mellitus halfway insulin use: without long chain beamer use Diabetes mellitus complication status: with neurologic complications Diabetes mellitus complication detail: with polyneuropathy Essential hypertension I10 Hypertension type: essential hypertension Hyperparathyroidism E21.3 Time Spent (min) 40
[2024-02-10 12:56] LABS: Glucose, Whole Blood 207 mg/dL (60-115)
== END 2024-02-10 13:48 | disposition home or self-care (01) ==
PROVIDERS: PCP Student in an Organized Health Care Education/Training Program; Visit Provider Student in an Organized Health Care Education/Training Program
DX: E11.42 Type 2 diabetes mellitus with diabetic polyneuropathy (principal); I10 Essential (primary) hypertension; E21.3 Hyperparathyroidism, unspecified
CPT/HCPCS: 99215

== ENCOUNTER → 2024-02-10 12:31 | Outpatient (BNVA) | payer OTHER, SELFPAY | PROVIDERS: PCP Student in an Organized Health Care Education/Training Program; Visit Provider Student in an Organized Health Care Education/Training Program | DX: E11.42 Type 2 diabetes mellitus with diabetic polyneuropathy (principal); E21.3 Hyperparathyroidism, unspecified; I10 Essential (primary) hypertension; Z79.84 Long term (current) use of oral hypoglycemic drugs | CPT/HCPCS: 82947; 99212 ==

== ENCOUNTER 2024-02-17 10:59 | Outpatient (REF) | payer OTHER, SELFPAY ==
[2024-02-17 13:00] LABS: Total Volume 24 Hour Urine 1625 mL
[2024-02-17 13:01] LABS: Total Volume 24 Hour Urine 1625 mL
[2024-02-17 13:12] LABS: Albumin Level 3.8 g/dL (3.5-5.0); Anion Gap 12 (12-20); Blood Urea Nitrogen 13 mg/dL (9-16); Calcium 9.2 mg/dL (8.4-10.2); Carbon Dioxide 26 mmol/L (22-29); Chloride 107 mmol/L (96-108); Estimated Glomerular Filt Rate > 60; Glucose Random 232 mg/dL (60-115); Magnesium 2.2 mg/dL (1.6-2.6); Potassium 3.4 mmol/L (3.3-5.1); Sodium 142 mmol/L (135-145)
[2024-02-17 13:18] LABS: Parathyroid Hormone Intact 96.5 pg/mL (8.7-77.1)
[2024-02-17 13:48] LABS: Creatinine, 24Hr Urine 0.6 G/Day (1.0-2.0); Creatinine, mg/dL 35.04; Sodium 24 Hr Urine 123.5 mmol/Day (40-220)
[2024-02-18 14:19] LABS: Calcium, Ionized 5.1 mg/dL (4.7-5.5)
[2024-02-18 18:13] LABS: Calcium, 24 Hr Urine 177 mg/24 h; Calcium/Creatinine Ratio 321 mg/g creat (30-275); Creatinine 24Hr Urine 0.55 g/24 h (0.50-2.15)
[2024-02-22 12:13] LABS: Renin 0.47 ng/mL/h (0.25-5.82)
[2024-02-27 20:04] LABS: Aldosterone, 24Hr Urine 1.3 mcg/24 h; Creatinine 24Hr Urine 0.55 g/24 h (0.50-2.15); Total Volume 1625 mL
== END 2024-02-17 11:00 | disposition home or self-care (01) ==
LOC: HO.LAB 10:59
PROVIDERS: PCP Student in an Organized Health Care Education/Training Program; Referring Provider Student in an Organized Health Care Education/Training Program; Visit Provider Student in an Organized Health Care Education/Training Program
DX: E21.3 Hyperparathyroidism, unspecified (principal); I10 Essential (primary) hypertension
CPT/HCPCS: 36415; 80048; 82040; 82088; 82330; 82340; 82570; 83735; 83970; 84100; 84244; 84300

== ENCOUNTER 2024-03-17 12:47 | Outpatient (REF) | payer OTHER, SELFPAY | END 2024-03-17 12:48 | disposition home or self-care (01) | LOC: HO.MAMMO 12:47 | PROVIDERS: PCP Student in an Organized Health Care Education/Training Program; Visit Provider Student in an Organized Health Care Education/Training Program | DX: Z12.31 Encounter for screening mammogram for malignant neoplasm of breast (principal) | CPT/HCPCS: 77063; 77067 ==

== ENCOUNTER → 2024-03-17 13:00 | Outpatient (BNV) | payer OTHER, SELFPAY | PROVIDERS: PCP Student in an Organized Health Care Education/Training Program; Visit Provider Internal Medicine | DX: Z12.31 Encounter for screening mammogram for malignant neoplasm of breast (principal) | CPT/HCPCS: 77063; 77067 ==

== ENCOUNTER 2024-03-27 10:39 | Outpatient (REF) | payer OTHER, SELFPAY ==
--- NOTE | ~2024-03-27 | XR_ITS ---
EXAMINATION: XR SACROILIAC JOINTS CLINICAL INFORMATION: M53.3 - Sacrococcygeal disorders, not elsewhere classified COMPARISON: None available. TECHNIQUE: 3 views of the sacroiliac joints FINDINGS: No acute cortical disruption. No lytic or blastic lesions. No widening of the joint spaces. XR/XR sacroiliac joint 1-2V IMPRESSION: No acute fractures. No gross sacroiliitis by x-ray. Electronically signed by: Brock Lauren MD 03/30/2024 10:27 AM VINCE
--- NOTE | ~2024-03-27 | XR_ITS ---
EXAMINATION: XR HIP, LEFT CLINICAL INFORMATION: M16.12 - Unilateral primary osteoarthritis, left hip COMPARISON: None available. TECHNIQUE: Two views of the left hip. FINDINGS: No acute cortical disruption or malalignment. Mild sclerosis of the articular surface in the left acetabulum. The joint spaces well-preserved. Sclerosis at the symphysis pubis. No lytic or blastic lesions. XR/XR hip LT min 2V IMPRESSION: Mild osteoarthrosis without acute fracture or dislocation, left hip. Electronically signed by: Brock Lauren MD 03/30/2024 10:02 AM VINCE
--- OUTSIDE RECORDS SUMMARY | 2024-03-27 13:10 | XMS_ITS | Encounter Summary ---
Author Organization [employer] Address [address] [facility] [address] [place] [address] Care Team Providers Care Fitness And Wellness Director Name Role Phone Emy Askew MD Primary Care Pro vider Encounter Details Date Type Department Care Team (Late st Contact Info) Description 08/07/2023 Orders Only [facility] [address] [place] [address] Valeria Armas FNP [address] [place] [address] Social History Tobacco Use Types Packs/Day Years Used Date Smoking Tobacco: Never Passive Smoke Exposure: Never Smokeless Tobacco: Never Alcohol Use Standard Drinks/Week Comments Never 0 (1 standard drink = 0.6 oz pur e alcohol) Depression Answer Date Recorded Patient Health Questionnaire-9 Score 16 09/24/2022 Housing Stability Answer Date Recorded What is your housing situation today? I have housing today, but I am worried about losing housing in the future 12/17/[address] you li ve. Do you have problems with any of the following? None of the above 12/17/2022 Food Insecurity Answer Date Recorded Within the past 12 months, y ou worried that your food would run out before you got money to buy more: Never True 12/17/2022 Within the past 12 months,th e food you bought just didn't last and you didn't have enough money to get more: Never True Transportation Answer Date Recorded In the past 12 months, has l ack of transportation kept you from medical appts, meetings, work or from getting things needed for daily living? No 12/17/2022 Utilities Answer Date Recorded In the past 12 months, has t he electric, gas, oil or water company threatened to shut off services in your home? No 12/17/2022 Depression Answer Date Recorded Patient Health Questionnaire-2 Score 6 09/24/2022 Comments No Sex and Gender Information Value Date Recorded Sex Assigned at Female 01/01/2022 10:15 AM EDT Legal Sex Female 10:15 AM EDT Gender Identity Female 01/01/2022 10:15 AM EDT Sexual Orientation Straight 01/01/2022 10 :15 AM EDT documented as of this encounter Plan of Treatment Upcoming Encounters Date Type Department Care Team (Late st Contact Info) Description 03/31/2024 1:00 PM EST Clinical Support [address] [phone] 05/26/2024 1:00 PM EDT Office Visit [address] [address] Kathryn Yusuf CNM [address] [place] [phone] documented as of this encounter Visit Diagnoses Not on filedocumented in this encounter Additional Health Concerns Assessment Noted Time PHQ-9 Depression Total Score: 16 023 10:16 AM EDT documented as of this encounter Care Teams Fitness And Wellness Director Relationship Specialty Start Date End Date Emy Askew MD [address] [place] [phone] PCP - General Internal Medicine 07/25/22 documented as of this encounter
--- OUTSIDE RECORDS SUMMARY | 2024-03-27 13:10 | XMS_ITS | Clinical Summary ---
Author Organization [address] [facility] Address [address] [place] [address] Phone Care Team Providers Care Forging Press Operator Name Role Phone Berkley Bird MD Primary Care Provider Allergies Active Allergy Reactions Criticality Noted Date Comments Sulfa (Sulfonamide Antibiotics) 02/01 Medications Medication Sig Dispensed Refills Start Date End Date Status CLONAZEPAM ORAL Take by mouth. Activ e hydroxychloroquine sulfate (PLAQUENIL ORAL) Take by mouth. Active propoxyphene HCl (PROPOXYPHENE ORAL) Take by mouth. A ctive lisinopriL (PRINIVIL,ZESTRIL) 10 mg tablet Take 10 mg by mouth daily. Active valsartan (DIOVAN) 320 mg tablet Take 320 mg by mouth daily. Active dilTIAZem (TIAZAC) 240 mg 24 hr capsule Take 240 mg by mouth daily. Active atorvastatin (LIPITOR) 20 mg tablet Take 20 mg by mouth daily. Active aspirin 81 mg EC tablet Take 81 mg by mouth daily. Active aripiprazole (ABILIFY ORAL) Take by mouth. Active duloxetine HCl (CYMBALTA ORAL) Take by mouth. Acti ve fluticasone propion/salmeterol (ADVAIR DISKUS INHL) Inhale into the lungs. Active Active Problems Problem Noted Date Diagnosed Date HTN (hypertension) 12/22/2012 Obesity 12/22/2012 HLD (hyperlipidemia) 12/22/2012 Depression 12/22/2012 Rheumatoid arthritis 12/22/2012 Asthma 12/22/2012 Social History Tobacco Use Types Packs/Day Years Used Date Smoking Tobacco: Never Assessed Sex and Gender Information Value Date Recorded Sex Assigned at Not on file Gender Identity Not on file Sexual Orientation Not on file Job Start Date Occupation Industry Not on file Not on file Not on file Plan of Treatment Upcoming Encounters Date Type Department Care Team ([facility] Contact Info) Description 04/06/2024 1:30 PM EST Office Visit Orthopedic Surgery - [place] [address] [facility] [address] [place] [phone] Magen Velasco, DPTristen 175 [facility] [address] [place] [address] Health Maintenance Due Date Last Done Comments Breast Cancer Screening 1960 COVID-19 Vaccine (#1) 08/22/1963 Pneumococcal Vaccine: 65+ Ye ars (1 of 2 - PCV) 1964 Pneumococcal Vaccine: Pediat rics (0 to 5 Years) and At-Risk Patients (6 to 64 Years) (1 of 2 - PCV) 1964 DTaP,Tdap,and Td Vaccines (1 - Tdap) 1977 Cervical Cancer Screening: P ap Smear 08/22/1979 Zoster Vaccines (1 of 2) 2008 RSV Immunization Patients 60 + Years Old (1 - Risk 60-74 years 1-dose series) 2018 Influenza Vaccine (#1) 2023 Cholesterol Screening (Lipid Panel) 01/22/2024 Colorectal Cancer Screening: Colonoscopy 01/22/2024 Depression Screening 01/22/2024 Falls Risk Assessment 01/22/2024 Hepatitis C Screening 01/22/2024 Medicare Annual Wellness Visit 01/22/2024 Osteoporosis Screening (Bone Density Screening) 01/22/2024 Social Influencers of Health Screening 01/22/2024 Hypertension/CHF/CAD Annual BMP Blood Test 02/20/2024 HIB Vaccines Aged Out No longer eligi ble based on patient's age to complete this topic HPV Vaccines Aged Out No longer eligi ble based on patient's age to complete this topic Hepatitis A Vaccines Aged Out No long er eligible based on patient's age to complete this topic Hepatitis B Vaccines Aged Out No long er eligible based on patient's age to complete this topic IPV Vaccines Aged Out No longer eligi ble based on patient's age to complete this topic MMR Vaccines Aged Out No longer eligi ble based on patient's age to complete this topic Meningococcal ACWY Vaccine Aged Out N o longer eligible based on patient's age to complete this topic RSV Immunization Patients Un gladis 20 months Aged Out No longer eligible b ased on patient's age to complete this topic Varicella Vaccines Aged Out No longer eligible based on patient's age to complete this topic Care Teams Forging Press Operator Relationship Specialty Start Date End Date Berkley Bird MD [address] [address] PCP - General Internal Medicine 02/20/24
--- OUTSIDE RECORDS SUMMARY | 2024-03-27 13:10 | XMS_ITS | Encounter Summary ---
Author Organization [facility] Address [address] [place] [address] [address] [place] [address] Care Team Providers Care Stack Yield Engineer Name Role Phone [facility] Primary Care Provider [phone] Emy Askew MD Primary Care Pro vider Reason for Visit * Reason Onset Date Comments Med Refill 05/11/2022 Encounter Details Date Type Department Care Team (Late st Contact Info) Description 05/11/2022 Telephone [facility] MEDICINE [address] [place] [address] [facility] [address] [place], [place] [phone] Med Refill Social History Tobacco Use Types Packs/Day Years Used Date Smoking Tobacco: Never Smokeless Tobacco: Never Alcohol Use Standard Drinks/Week Comments Never 0 (1 standard drink = 0.6 oz pur e alcohol) Comments Unknown Sex and Gender Information Value Date Recorded Sex Assigned at Female 01/01/2022 10:15 AM EDT Legal Sex Female 10:15 AM EDT Gender Identity Female 01/01/2022 10:15 AM EDT Sexual Orientation Straight 01/01/2022 10 :15 AM EDT COVID-19 Exposure Response Date Recorded In the last 10 days, have yo u been in contact with someone who was confirmed or suspected to have Coronavirus/COVID-19? No / Unsure 05/03/2022 11:04 AM EST documented as of this encounter Miscellaneous Notes * Telephone Encounter - Chanell Frances RN - 05/11/2022 1:04 PM EST Device sent to pt pharmacy today. * Telephone Encounter - Junecassie Aquinojasen Mclean - 05/11/2022 10:22 AM EST Tc from pt requesting a Blood Glucose Monitoring Suppl (FreeStyle Lite) w/Device kit Pt claims that she has lost the device. Please sent to [facility] - [place], [place] - [address] [place] [address] documented in this encounter Plan of Treatment Upcoming Encounters Date Type Department Care Team ([facility] st Contact Info) Description 03/31/2024 1:00 PM EST Clinical Support [address] [address] 05/26/2024 1:00 PM EDT Office Visit [address] [address] Kathryn Yusuf CNM [address] [place] [phone] documented as of this encounter Visit Diagnoses Not on filedocumented in this encounter Care Teams Stack Yield Engineer Relationship Specialty Start Date End Date Kenya Sol FNP [address] [place] [phone] PCP - General Family Medicine 01/22/22 07/24/22 Emy Askew MD [address] [place] [phone] PCP - General Internal Medicine 07/25/22 documented as of this encounter
--- OUTSIDE RECORDS SUMMARY | 2024-03-27 13:10 | XMS_ITS | Encounter Summary ---
Author Organization [facility] Address [address] [place] [address] 7t [place] [address] Care Team Providers Care Incident Response Engineer Name Role Phone [facility] Primary Care Provider [phone] Emy Askew MD Primary Care Pro vider Reason for Visit * Reason Onset Date Comments Appointment Request 06/07/2022 Encounter Details Date Type Department Care Team ([facility] st Contact Info) Description 06/07/2022 Telephone [facility] MED[facility]INE [address] [place] [address] [facility] [address] [place] [address] Appointment Request Social History Tobacco Use Types Packs/Day Years [...] suspected to have Coronavirus/COVID-19? No / Unsure 06/06/2022 11:45 AM EDT documented as of this encounter Miscellaneous Notes * Telephone Encounter - Angelo Mclean - 06/07/2022 10:40 AM EDT Tc from pt requesting a TP appt with new provider. Please contact pt at [phone] documented in this encounter Plan of Treatment Upcoming Encounters Date Type Department Care Team (Late st Contact Info) Description 03/31/2024 1:00 PM EST Clinical Support [address] [phone] 05/26/2024 1:00 PM EDT Office Visit [address] [address] Kathryn Yusuf CNM [address] [place] [phone] documented as of this encounter Visit Diagnoses Not on filedocumented in this encounter Care Teams Incident Response Engineer Relationship Specialty Start Date End Date Kenya Sol FNP [address] [place] [phone] PCP - General Family Medicine 01/22/22 07/24/22 Emy Askew MD [address] [place] [phone] PCP - General Internal Medicine 07/25/22 documented as of this encounter
--- OUTSIDE RECORDS SUMMARY | 2024-03-27 13:10 | XMS_ITS | Encounter Summary ---
Author Organization [employer] Address [address] [facility] 7t [place] [address] Care Team Providers Care Electronic Sensing Equipment Assembler Name Role Phone Emy Askew MD Primary Care Pro vider Encounter Details Date Type Department Care Team (Latest Contact Info) Description 03/20/2024 Travel Social History Tobacco Use Types Packs/Day Years Used Date Smoking Tobacco: Never Passive Smoke Exposure: Never Smokeless Tobacco: Never Alcohol Use Standard Drinks/Week Comments Never 0 (1 standard drink = 0.6 oz pur e alcohol) Alcohol Answer Date Recorded Frequency of Alcohol Consumption Not on file 01/13/2024 Average Number of Drinks Not on file 024 Frequency of Binge Drinking Not on file 01/02 Score 0 01/13/2024 Depression Answer Date Recorded Patient Health Questionnaire-9 Score 10 11/12/2023 Patient Health Questionnaire-9 Score 10 11/12/2023 Last PHQ-9: Questionnaire Data Not on file 0 11/12/2023 Housing Stability Answer Date Recorded What is your housing situation today? I have butch erickson 11/01/[address] you li ve. Do you have problems with any of the following? None of the above 11/01/2023 Food Insecurity Answer Date Recorded Within the past 12 months, y ou worried that your food would run out before you got money to buy more: Sometimes True 2023 Within the past 12 months,th e food you bought just didn't last and you didn't have enough money to get more: Sometimes True 11/01/2023 Transportation Answer Date Recorded In the past 12 months, has l ack of transportation kept you from medical appts, meetings, work or from getting things needed for daily living? No 11/01/2023 Utilities Answer Date Recorded In the past 12 months, has t he electric, gas, oil or water company threatened to shut off services in your home? No 11/01/2023 Depression Answer Date Recorded Patient Health Questionnaire-2 Score 5 11/12/2023 Internet Access Answer Date Recorded Internet Access Q1 Yes 11/01/2023 Internet Access Q2 Not on file 11/01/2023 Comments No Sex and Gender Information Value [...] Description 03/31/2024 1:00 PM EST Clinical Support [address] [address] 05/26/2024 1:00 PM EDT Office Visit [facility]INE [address] [place] [address] Kathryn Yusuf CNM [address] [place] [address] documented as of this encounter Visit Diagnoses Not on filedocumented in this encounter Additional Health Concerns Assessment Noted Time PHQ-9 Depression Total Score: 10 024 2:37 PM EDT documented as of this encounter Care Teams Electronic Sensing Equipment Assembler Relationship Specialty Start Date End Date Emy Askew MD [address] [place] [phone] PCP - General Internal Medicine 07/25/22 documented as of this encounter
--- OUTSIDE RECORDS SUMMARY | 2024-03-27 13:10 | XMS_ITS | Encounter Summary ---
Author Organization [employer] Address [address] [facility] 7t [place] [address] Care Team Providers Care Land Leasing Examiner Name Role Phone Emy Askew MD Primary Care Pro vider Reason for Visit * Reason Onset Date Comments Appointment Request 03/17/2024 Encounter Details Date Type Department Care Team ([facility] st Contact Info) Description 03/17/2024 Telephone [facility]ICINE [address] [place], [place] [phone] Kaylen Rausch RN Appointment Request Social History Tobacco Use Types [...] encounter Miscellaneous Notes * Telephone Encounter - Kaylen Rausch RN - 03/17/2024 9:26 AM EST Telephone call to pt using [employer] lang interpreter Keely #[id number]. Per PCP Dr Chemo mahmood, scheduled the pt for nurse visit memory evaluation on 03/31/24. Pt to call clinic PRN beforehand. * Telephone Encounter - Kaylen Rausch RN - 03/17/2024 9:19 AM EST ----- Message from Emy Goldsmith MD sent at 01/13/2024 2:28 PM EST ----- Please help checking memory eval prior her next apt in clinic -thanks in aprox 3 months documented in this encounter Plan of Treatment Upcoming Encounters Date Type Department Care Team (Late st Contact Info) Description 03/31/2024 1:00 PM EST Clinical Support [address] [phone] 05/26/2024 1:00 PM EDT Office Visit [address] [phone] Kathryn Yusuf, FRANCOISE [address] [place] [address] documented as of this encounter Visit Diagnoses Not on filedocumented in this encounter Additional Health Concerns Assessment Noted Time PHQ-9 Depression Total Score: 024 2:37 PM EDT documented as of this encounter Care Teams Land Leasing Examiner Relationship Specialty Start Date End Date Emy Askew MD [address] [place], [place] [phone] PCP - General Internal Medicine 07/25/22 documented as of this encounter
--- OUTSIDE RECORDS SUMMARY | 2024-03-27 13:10 | XMS_ITS | Encounter Summary ---
Author Organization [employer] Address [address] [place] [address] 7 [place] [address] Care Team Providers Care Telescope Repairer Name Role Phone Emy Askew MD Primary Care Pro vider Reason for Visit * Reason Comments Med Refill Encounter Details Date Type Department Care Team ([facility] st Contact Info) Description 03/25/2024 Refill [facility] MEDICINE [address] [place] [address] Emy Askew MD [address] [place] [address] Type 2 diabetes mellitus without complication, unspecified whether terminal make up operator insulin use ([facility]) Social History Tobacco Use Types Packs/Day Years [...] the past 12 months, has t he [employer], gas, oil or water company threatened to [...] Description 03/31/2024 1:00 PM EST Clinical Support [facility] MED[facility] [address] [place] [address] 05/26/2024 1:00 PM EDT Office Visit [facility] [address] [place] [phone] Kathryn Yusuf CNM [address] [place] [address] documented as of this encounter Visit Diagnoses Diagnosis Type 2 diabetes mellitus without complication, unspecified whether chcf insulin use ([facility]) documented in this encounter Additional Health Concerns Assessment Noted Time PHQ-9 Depression Total Score: 10 024 2:37 PM EDT documented as of this encounter Care Teams Telescope Repairer Relationship Specialty Start Date End Date Emy Askew MD [address] [place] [address] PCP - General Internal Medicine 07/25/22 documented as of this encounter
--- OUTSIDE RECORDS SUMMARY | 2024-03-27 13:10 | XMS_ITS | Data Portability ---
Author Organization [place] - [facility], Allergy Address [address] [place] [phone] Assessment No assessment recorded. Plan of Treatment Reminders Order Date Submit Date Provider Last Modified By Organization Details Last Modified Time Details Appointments None recorded. Lab None recorded. Referral None recorded. Procedures None recorded. Surgeries None recorded. Imaging [place], modified barium swallow study [address] [place] [address] Diagnosit Imaging Dept, [address] [place] [address], [address], 5 11:51:40 Medication Orders None recorded. Patient TargetsNo targets recorded. Patient InstructionsNo instructions recorded. Reason for Referral None Reported. Problems Name Problem SNOMED Code Status Onset Date Resolution Date Notes Provider Name and Address Organization Details Recorded Time Dysphagia 35541834 Active 2018 Other dysphagia; Note: Date Diagnosed: 05/13/2018 9:47 AM (R13.19) Not Available [facility] 4 02:27:43 [place] ce of salivary secretion 60140991 Active 2018 Xerostomia ; Note: Date Diagnosed: 05/13/2018 9:47 AM (K11.7) Not Available [facility] 4 02:27:54 Dysphonia 79640142 Active 2017 Hoarseness ; Note: Date Diagnosed: 02/17/2018 9:52 AM (R49.0) Not Available [facility] 4 02:27:44 Chronic sialadeni tis 226275348 Active 2016 Chronic sialoadeni tis; Note: Date Diagnosed: 07/04/2016 2:17 PM (K11.23) Not Available [facility] 4 02:27:48 Sj? ? 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 Diseases of the salivary glands: Hypertroph y; CMS Risk: moderate risk CMS Treatment: establishe d problem (to examiner): stable or improved N ote: Date Diagnosed: 12/30/2013 2:35 PM (527.1) Not Available [facility] 4 02:27:37 Bilateral hearing loss 52493910 Active 2018 Other specified hearing loss, bilateral; Note: Date Diagnosed: 08/12/2018 10:01 AM (H91.8X3) Not Available [facility] 4 02:27:41 Oropharyn geal dysphagia 40386690 Active 2024 UMESH DIAZ MD [address] [place] [address], [phone] , [facility] 5 13:35:47 Problem Notes None recorded. Procedures Surgical History Date Name Laterality Status Provider Name and Address Organization Details Recorded Time 03/13/2024 FFL_RE completed UMESH DIAZ MD [address] [place] [address], [phone], [facility] 03/13/2024 13:36:13 Imaging Results None recorded. Procedure Notes None recorded. Medical Equipment None Reported. Allergies Allergen ID Allergen Name Allergen Category Reaction Reaction Severity Criticality Documentation Date Start Date Code Code System Note Provider Name and Address Organization Details Recorded Time 20764 Bactrim medicatio n other Not available Not available 07/16/2023 17750 9 RxNorm React ion: unkno wn, unspe cifie d;; Not Available [facility] 4 00:55:51 76975 codeine sulfate medicatio n other Not available Not available 07/16/2023 60996 RxNorm React ion: unkno wn, unspe cifie d;; Not Available [facility] 4 00:55:56 Medications Name Sig Start Date Stop Date Status Note LastModified by Organization Details LastModified Time medbox status USE DIRECTED active Not Available Not Available No t Available furosemid e 40 mg tablet TAKE 1 TABLET BY MOUTH EVERY MORNING active Not Available Not Available No t Available Augmentin 875 mg-125 mg tablet 2017 active Medicati on ID: [id number] D uration Value: 5 Prescri bed By Name: Umesh pack MD Brand Name: Augmenti n Send Method: E-Prescr ibed Sub s Allowed: subs OK Speci al Instruct ion: 1 po bid for 5 days Med icationG enericNa me: Augmenti n Not Available Not Available Not Available terconazo le 0.4 % vaginal cream INSERT 1 APPLICAT ORFUL VAGINALL Y AT BEDTIME FOR 7 NIGHT active Not Available Not Available No t Available carvedilo l 25 mg tablet TAKE 1 TABLET BY MOUTH TWICE DAILY IN THE MORNING AND IN THE EVENING active Not Available Not Available No t Available clonidine HCl 0.1 mg tablet TAKE 2 TABLETS BY MOUTH ONCE DAILY IN THE MORNING and TAKE 1 TABLET BY MOUTH EVERY EVENING active Not Available Not Available No t Available atorvasta tin 20 mg tablet TAKE 1 TABLET BY MOUTH AT BEDTIME active Not Available Not Available No t Available albuterol sulfate 2.5 mg/3 mL (0.083 %) solution for nebulizat ion 2018 active Medicati on ID: [id number] D uration Value: 5 Brand Name: albutero l sulfate Send Method: E-Prescr ibed Sub s Allowed: subs OK Speci al Instruct ion: INHALE 1 AMPULE USING A NEBULIZE R EVERY 4 TO 6 HOURS NEEDED SHORTNE SS OF BREATH M edicatio nGeneric Name: albutero l sulfate Not Available Not Available Not Available trazodone 50 mg tablet TAKE 1 TABLET BY MOUTH AT BEDTIME NEEDED FOR SLEEP active Not Available Not Available No t Available fluconazo le 150 mg tablet TAKE 1 TABLET BY MOUTH ONCE active Not Available Not Available No t Available senna 8.6 mg tablet TAKE 2 TABLETS BY MOUTH EVERY DAY NEEDED FOR CONSTIPA TION active Not Available Not Available No t Available lisinopri l 20 mg tablet 2018 active Medicati on ID: [id number] D uration Value: 30 Brand Name: lisinopr il Send Method: E-Prescr ibed Sub s Allowed: subs OK Speci al Instruct ion: TAKE 1 TABLET BY MOUTH EVERY MORNING Medicati onGeneri cName: lisinopr il Not Available Not Available Not Available clonazepa m 0.5 mg tablet TAKE 1 TABLET BY MOUTH ONCE DAILY NEEDED active Not Available Not Available No t Available gabapenti n 400 mg capsule TAKE 1 CAPSULE BY MOUTH TWICE A DAY active Not Available Not Available No t Available penicilli n V potassium 500 mg tablet TAKE 1 TABLET BY MOUTH THREE TIMES DAILY FOR 10 DAYS active Not Available Not Available No t Available diltiazem ER 360 mg capsule,2 4 hr,extend ed release TAKE 1 CAPSULE BY MOUTH AT BEDTIME active Not Available Not Available No t Available amlodipin e 5 mg tablet TAKE 1 TABLET BY MOUTH TWICE DAILY IN THE MORNING AND IN THE EVENING active Not Available Not Available No t Available ciproflox acin 500 mg tablet TAKE 1 TABLET BY MOUTH TWICE DAILY FOR 5 DAYS active Not Available Not Available No t Available aspirin 81 mg tablet,de layed release TAKE 1 TABLET BY MOUTH EVERY MORNING active Not Available Not Available No t Available leflunomi de 20 mg tablet TAKE 1 TABLET BY MOUTH EVERY DAY active Not Available Not Available No t Available tramadol 50 mg tablet TAKE 1 TABLET BY MOUTH EVERY 8 HOURS NEEDED FOR SEVERE PAIN active Not Available Not Available No t Available acetamino phen 500 mg tablet TAKE 2 TABLETS BY MOUTH EVERY 6 HOURS NEEDED FOR MODERATE PAIN, FOR HEADACHE , OR FEVER active Not Available Not Available No t Available lidocaine -prilocai ne 2.5 %-2.5 % topical cream APPLY TOPICALL Y TO THE AFFECTED AREA(S) EVERY DAY active Not Available Not Available No t Available calcium 600 mg (as calcium carbonate 1,500 mg) tablet TAKE 1 TABLET BY MOUTH EVERY MORNING active Not Available Not Available No t Available clonidine HCl 0.2 mg tablet TAKE 1 TABLET BY MOUTH TWICE DAILY IN THE MORNING AND IN THE EVENING active Not Available Not Available No t Available Deep Sea Nasal 0.65 % spray aerosol USE 1 SPRAY IN EACH NOSTRIL NEEDED FOR NASAL CONGESTI ON active Not Available Not Available No t Available triamcino lone acetonide 0.1 % topical ointment APPLY A THIN LAYER TOPICALL Y TO HANDS TWICE DAILY FOR 10 DAYS active Not Available Not Available No t Available cevimelin e 30 mg capsule TAKE 1 CAPSULE BY MOUTH AT NOON AND 1 CAPSULE IN THE EVENING active Not Available Not Available No t Available buspirone 10 mg tablet 2018 active Medicati on ID: [id number] D uration Value: 30 Brand Name: buspiron e Send Method: E-Prescr ibed Sub s Allowed: subs OK Speci al Instruct ion: TAKE 1 TABLET BY MOUTH THREE TIMES DAILY NEEDED ANXIETY Medicati onGeneri cName: buspiron e Not Available Not Available Not Available Tiazac 120 mg capsule,e xtended release 02/04 completed Medicati on ID: [id number] Re ason: () Brand Name: Tiazac S end Method: E-Prescr ibed Sub s Allowed: subs OK Medic ationGen ericName : Tiazac Not Available Not Available Not Available lidocaine 5 % topical patch APPLY 1 PATCH TOPICALL Y TO SKIN IN THE MORNING. LEAVE ON FOR 12 HOURS AND OFF FOR 12 HOURS DIRECTED MAY USE 2 PATCHES active Not Available Not Available No t Available ibuprofen 400 mg tablet TAKE 1 TABLET BY MOUTH EVERY 6 HOURS NEEDED FOR MODERATE PAIN OR FOR FEVER active Not Available Not Available No t Available docusate sodium 100 mg capsule TAKE 1 CAPSULE BY MOUTH TWICE DAILY NEEDED FOR CONSTIPA TION active Not Available Not Available No t Available gabapenti n 300 mg capsule TAKE 1 CAPSULE BY MOUTH TWICE A DAY active Not Available Not Available No t Available omeprazol e 20 mg capsule,d elayed release 2018 active Medicati on ID: [id number] D uration Value: 30 Brand Name: omeprazo le Send Method: E-Prescr ibed Sub s Allowed: subs OK Speci al Instruct ion: TAKE 1 CAPSULE TWICE DAILY IN THE MORNING AND IN THE EVENING 1 HORA AN KALEN DE LAS COMIDAS Medicati onGeneri cName: omeprazo le Not Available Not Available Not Available Aspirin Childrens 81 mg chewable tablet 2013 active Medicati on ID: [id number] Br and Name: Aspirin Children s Send Method: E-Prescr ibed Sub s Allowed: subs OK Medic ationGen ericName : Aspirin Children s Not Available Not Available Not Available folic acid 1 mg tablet TAKE 1 TABLET BY MOUTH EVERY DAY active Not Available Not Available No t Available bisacodyl 5 mg tablet,de layed release TAKE 4 TABLETS BY MOUTH ONCE DIRECTED BY DOCTOR active Not Available Not Available No t Available furosemid e 20 mg tablet TAKE 1 TABLET BY MOUTH EVERY MORNING active Not Available Not Available No t Available hydroxych loroquine 200 mg tablet 2018 active Medicati on ID: [id number] D uration Value: 30 Brand Name: levon post ne Send Method: E-Prescr ibed Sub s Allowed: subs OK Speci al Instruct ion: TAKE 2 TABLETS BY MOUTH ONCE DAILY IN THE MORNING Medicati onGeneri cName: levon jenkinsqui ne Not Available Not Available Not Available ibuprofen 600 mg tablet 2018 active Medicati on ID: [id number] D uration Value: 30 Brand Name: ibuprofe n Send Method: E-Prescr ibed Sub s Allowed: subs OK Speci al Instruct ion: TAKE 1 TABLET BY MOUTH THREE TIMES DAILY WITH FOOD NEEDED FOR PAIN Med icationG enericNa me: ibuprofe n Not Available Not Available Not Available polyethyl mendez glycol 3350 17 gram/dose oral powder MIX BOTTLE WITH WATER AND DRINK DIRECTED BY DOCTOR THE DAY BEFORE COLONOSC OPY active Not Available Not Available No t Available estradiol 0.01% (0.1 mg/gram) vaginal cream INSERT 1 GRAM VAGINALL Y EVERY DAY FOR 14 DAYS. THEN USE 2 TIMES PER WEEK AFTER active Not Available Not Available No t Available lisinopri l 40 mg tablet TAKE 1 TABLET BY MOUTH EVERY MORNING active Not Available Not Available No t Available losartan 100 mg tablet TAKE 1 TABLET BY MOUTH EVERY MORNING active Not Available Not Available No t Available metformin ER 500 mg tablet,ex tended release 24 hr 2018 active Medicati on ID: [id number] D uration Value: 30 Brand Name: metformi n Send Method: E-Prescr ibed Sub s Allowed: subs OK Speci al Instruct ion: TAKE 1 TABLET BY MOUTH TWICE DAILY IN THE MORNING AND IN THE EVENING W ITH FOOD Med icationG enericNa me: metformi n Not Available Not Available Not Available Ambien 5 mg tablet 2013 active Medicati on ID: [id number] Br and Name: Ambien S end Method: E-Prescr ibed Sub s Allowed: subs OK Medic ationGen ericName : Ambien Not Available Not Available Not Available loratadin e 10 mg tablet TAKE 1 TABLET BY MOUTH EVERY DAY NEEDED FOR ALLERGIE S active Not Available Not Available No t Available Ventolin HFA 90 mcg/actua tion aerosol inhaler INHALE 2 PUFFS BY MOUTH EVERY 6 HOURS NEEDED FOR WHEEZING active Not Available Not Available No t Available Colace 50 mg capsule 2013 active Medicati on ID: [id number] Br and Name: Kade Rivera end Method: E-Prescr ibed Sub s Allowed: subs OK Medic ationGen ericName : Colace Not Available Not Available Not Available Alcohol Prep Pads USE DIRECTED FIVE TIMES DAILY active Not Available Not Available No t Available Spiriva with [employer] r 18 mcg and inhalatio n capsules USE 1 CAPSULE FOR INHALATI ON ONCE A DAY DO NOT SWALLOW CAPSULE active Not Available Not Available No t Available nitrofura ntoin monohydra te/macroc rystals 100 mg capsule TAKE 1 CAPSULE BY MOUTH TWICE DAILY FOR 7 DAYS AND DRINK ROSEMARIE WATER active Not Available Not Available No t Available duloxetin e 60 mg capsule,d elayed release TAKE 1 CAPSULE BY MOUTH AT BEDTIME active Not Available Not Available No t Available Vandazole 0.75 % (37.5 mg/5 gram) vaginal gel INSERT 1 APPLICAT ORFUL VAGINALL Y AT BEDTIME FOR 5 NIGHTS DIRECTED active Not Available Not Available No t Available diclofena c 1 % topical gel APPLY 2-3 GRAMS TO AFFECTED AREA TWICE A DAY NEEDED FOR PAIN active Not Available Not Available No t Available melatonin 5 mg tablet TAKE 2 TABLETS BY MOUTH EVERY DAY AT BEDTIME NEEDED active Not Available Not Available No t Available BD Ultra-Fin e Jammie Pen Needle 32 gauge x /32 USE THREE TO FOUR TIMES DAILY DIRECTED active Not Available Not Available No t Available Vitamin D3 50 mcg (2,000 unit) capsule TAKE 1 CAPSULE BY MOUTH EVERY MORNING active Not Available Not Available No t Available TRUEplus Lancets 33 gauge USE DIRECTED TO TEST BLOOD SUGAR FOUR TIMES DAILY active Not Available Not Available No t Available Breo Ellipta 100 mcg-25 mcg/dose powder for inhalatio n 2018 active Medicati on ID: [id number] D uration Value: 30 Brand Name: Breo Ellipta Send Method: E-Prescr ibed Sub s Allowed: subs OK Speci al Instruct ion: INHALE 1 PUFF ONCE DAILY Me dication GenericN surjit: Breo Ellipta Not Available Not Available Not Available Farxiga 10 mg tablet TAKE 1 TABLET BY MOUTH EVERY MORNING active Not Available Not Available No t Available Farxiga 5 mg tablet TAKE 1 TABLET BY MOUTH EVERY MORNING active Not Available Not Available No t Available Trulicity 1.5 mg/0.5 mL subcutane ous pen injector INJECT ONE PEN (=1.5MG) SUBCUTAN EOUSLY ONCE A WEEK DIRECTED active Not Available Not Available No t Available FreeStyle Precision Clement Strips TEST BLOOD SUGAR EVERY 8 HOURS DIRECTED active Not Available Not Available No t Available Humulin R U-500 (Conc) Insulin Kwikpen 500 unit/mL (3 mL) subcutane ous 2018 active Medicati on ID: [id number] D uration Value: 35 Brand Name: Humulin R U-500 (Conc) Kwikpen Send Method: E-Prescr ibed Sub s Allowed: subs OK Speci al Instruct ion: INJECT SUBCUTAN EOUSLY 100 UNITS BEFORE BREAKFAS T & 60 UNITS BEFORE SUP PER Medi cationGe nericNam e: Humulin R U-500 (Conc) Kwikpen Not Available Not Available Not Available Trulicity 3 mg/0.5 mL subcutane ous pen injector INJECT ONE PEN (= 3MG) SUBCUTAN EOUSLY ONCE A WEEK DIRECTED active Not Available Not Available No t Available Ozempic 1 mg/dose (4 mg/3 mL) subcutane ous pen injector Inject 1 MG SUBCUTAN EOUSLY EVERY 7 DAYS IN THE ABDOMEN, THIGHS OR UPPER ARM. ROTATE INJECTIO N SITES. active Not Available Not Available No t Available Ozempic 0.25 mg or 0.5 mg (2 mg/3 mL) subcutane ous pen injector INJECT 0.5 MG SUBCUTAN EOUSLY EVERY 7 DAYS IN THE ABDOMEN, THIGHS, OR UPPER ARM, ROTATE INJECTIO N SITES. active Not Available Not Available No t Available Vitals Date Recorded Body height Body mass index (BMI) Body weight Provider Name and Address Organization Details Last Updated DateTime 03/13/2024 157.48 cm 26 kg/m2 34397.12 g Shantell Wise [place] - [facility] 03/13/2024 13:27:58 Social History None recorded. Functional Status None recorded. Mental Status None recorded. Family History Nothing Reported. Medical History No medical history recorded. Gynecological HistoryNo gynecological history recorded. Obstetrics History GPAL:G 0 P 0 0 0 0 Past Encounters Encounter ID Performer Location Encounter Start Date Encounter Closed Date Diagnosis/Indication Diagnosis SNOMED-CT Code Diagnosis ICD10 Code Diagnosis Note [id number] UMESH DIAZ MD [facility] [address] [place] [address] 03/13/2024 13:18:07 03/13/2024 13:52:50 Oropharyngeal dysphagia 80564286 R13.12 Exam and laryngosco py were normal. I recommend a swallow study (MBS) to reassess her swallow. F/u after. If normal I would suggest GI referral especially given her Sjogrens. Sj? ? ?gren's syndrome 18788849 M35.00 Encouraged hydration. Will consider GI referral to evaluate esophageal pathology that could effect swallowing after MBS. Health Concerns Section Related Observation LastModified by Organization Detai ls LastModified Time None Recorded Concern Status LastModified by Organization Details LastModified Time None Recorded Advance Directives Directive None Recorded Payers Encounter Date Sequence Insurance Name Policy Number Policy Mendez Covered Member ID Mendez Member ID Guarantor Name 03/13/2024 1 [facility] - DOS ON OR AFTER 2022 - MEDICARE ADVANTAGE [place] (MEDICARE REPLACEMENT/ADV ANTAGE - PPO) Jennifer Gu [id number] Jennifer Gu Notes Date Note Type Note Provider Name and Address Organization Details Recorded Time 03/13/2024 text/html She presents wit h dysphagia. She was seen for the same in 2019. Had a MBS in 2020. She has trouble with some dry foods such as breads. Sometimes she chokes on food and has trouble breathing. she does not smoke. Denies SOB and voice problems. No problem swallowing liquids. She denies acid reflux. Hx of Sjogren's and bilateral salivary kenalog injections. Has dry eyes and dry mouth. UMESH DIAZ MD [address] [place] [address], [phone], [facility] - [facility] 03/13/2024 13:43:36 OBGyn Episode No OBEpisode recorded.
--- OUTSIDE RECORDS SUMMARY | 2024-03-27 13:10 | XMS_ITS | Encounter Summary ---
Author Organization [employer] Address [address] [place] [address] [place] [address] Care Team Providers Care Wheel Alignment Mechanic Name Role Phone Emy Askew MD Primary Care Pro vider Reason for Visit * Reason Onset Date Comments Triage 07/31/2022 Encounter Details Date Type Department Care Team ([facility] st Contact Info) Description 07/31/2022 Telephone [facility] MEDICINE [address] [place] [address] Emy Askew MD [address] [place] [address] Triage Social History Tobacco Use Types Packs/Day Years [...] suspected to have Coronavirus/COVID-19? No / Unsure 07/31/2022 10:00 AM EDT documented as of this encounter Miscellaneous Notes * Telephone Encounter - Mamta Umesh - 07/31/2022 8:33 AM EDT Symptom: Knee Pain - Not From Injury Outcome: Schedule an urgent appointment (within 4 hours) or talk to a nurse or provider soon Reason: Swelling The caller accepted this outcome Patient speaks bulgarian. documented in this encounter Plan of Treatment Upcoming Encounters Date Type Department Care Team (Late st Contact Info) Description 03/31/2024 1:00 PM EST Clinical Support [address] [address] 05/26/2024 1:00 PM EDT Office Visit [address] [address] Kathryn Yusuf CNM [address] [place] [phone] documented as of this encounter Visit Diagnoses Not on filedocumented in this encounter Care Teams Wheel Alignment Mechanic Relationship Specialty Start Date End Date Emy Askew MD [address] [place] [phone] PCP - General Internal Medicine 07/25/22 documented as of this encounter
--- OUTSIDE RECORDS SUMMARY | 2024-03-27 13:10 | XMS_ITS | Encounter Summary ---
Author Organization [employer] Address [address] [facility] [address] [place] [address] Care Team Providers Care Special Police Officer Name Role Phone Kenya Sol PAINTINGS RESTORER Primary Care Provider [phone] Emy Askew MD Primary Care Pro vider Encounter Details Date Type Department Care Team (Late st Contact Info) Description 05/28/2022 Orders Only [facility] [address] [place], [place] [phone] Candy Miller LPN Social History Tobacco Use Types Packs/Day Years [...] suspected to have Coronavirus/COVID-19? No / Unsure 05/30/2022 2:10 PM EDT documented as of this encounter Plan of Treatment Upcoming Encounters Date Type Department Care Team (Late Contact Info) Description 03/31/2024 1:00 PM EST Clinical Support [facility] MEDICINE [address] [place] [phone] 05/26/2024 1:00 PM EDT Office Visit [address] [address] Kathryn Yusuf CNM [address] [place] [address] documented as of this encounter Visit Diagnoses Not on filedocumented in this encounter Care Teams Special Police Officer Relationship Specialty Start Date End Date [place] JULIO CÉSAR Zambrano [address] [place] [address] PCP - General Family Medicine 01/22/22 07/24/22 Emy Askew MD [address] [place] [address] PCP - General Internal Medicine 07/25/22 documented as of this encounter
--- OUTSIDE RECORDS SUMMARY | 2024-03-27 13:10 | XMS_ITS | Encounter Summary ---
Author Organization [employer] Address [address] 7t [place] [address] Care Team Providers Care Hot Tamale Man Name Role Phone Emy Askew MD Primary Care Pro vider Encounter Details Date Type Department Care Team ([facility] st Contact Info) Description 02/23/2024 Orders Only [facility] [address] [place] [address] Provider, MD Waylon Social History Tobacco Use Types Packs/Day Years [...] is your housing situation today? I have butchtj erickson 11/01/[address] you [...] Description 03/31/2024 1:00 PM EST Clinical Support [facility] [address] [place] [address] 05/26/2024 1:00 PM EDT Office Visit [facility] [address] [place] [phone] Kathryn Yusuf CNM [address] [place] [phone] documented as of this encounter Procedures Procedure Name Priority Date/Time Associated Diagnosis Comments COLONOSCOPY Routine 05/09/2023 6:56 PM EST documented in this encounter Results * Hm Colonoscopy (05/09/2023 6:56 PM EST) us Historical Provider HEALTH MAINTENANCE Final Result documented in this encounter Visit Diagnoses Not on filedocumented in this encounter Additional Health Concerns Assessment Noted Time PHQ-9 Depression Total Score: 10 024 2:37 PM EDT documented as of this encounter Care Teams Hot Tamale Man Relationship Specialty Start Date End Date Emy Askew MD [address] [place] [address] PCP - General Internal Medicine 07/25/22 documented as of this encounter
--- OUTSIDE RECORDS SUMMARY | 2024-03-27 13:10 | XMS_ITS | Encounter Summary ---
Author Organization [employer] Address [address] [place] [address] 7 [place] [address] Care Team Providers Care State'S Attorney Name Role Phone Emy Askew MD Primary Care Pro vider Reason for Visit * Reason Comments Med Refill Encounter Details Date Type Department Care Team ([facility] Contact Info) Description 02/14/2024 Refill [facility] [address] [place] [address] Emy Askew MD [address] [place] [address] Social History Tobacco Use Types Packs/Day Years [...] got money to buy more: Sometimes True 08/30/ 2024 Within the past 12 months,th e food [...] Description 03/31/2024 1:00 PM EST Clinical Support [facility] [address] [place] [phone] 05/26/2024 1:00 PM EDT Office Visit [facility] [address] [place] [phone] Kathryn Yusuf CNM [address] [place] [phone] documented as of this encounter Visit Diagnoses Not on filedocumented in this encounter Additional Health Concerns Assessment Noted Time PHQ-9 Depression Total Score: 10 024 2:37 PM EDT documented as of this encounter Care Teams State'S Attorney Relationship Specialty Start Date End Date Emy Askew MD [address] [place] [address] PCP - General Internal Medicine 07/25/22 documented as of this encounter
--- OUTSIDE RECORDS SUMMARY | 2024-03-27 13:10 | XMS_ITS | Encounter Summary ---
Author Organization [employer] Address [address] [place] [address] 7t [place] [address] Care Team Providers Care International Sourcing Manager Name Role Phone Emy Askew MD Primary Care Pro vider Encounter Details Date Type Department Care Team ([facility] st Contact Info) Description 03/10/2024 Telephone [facility] [address] [place] [address] Emy Askew MD [address] [place] [address] Social History Tobacco Use Types Packs/Day Years [...] Description 03/31/2024 1:00 PM EST Clinical Support [facility] [address] [place] [address] 05/26/2024 1:00 PM EDT Office Visit [facility] [address] [place] [address] Kathryn Yusuf CNM [address] [place] [address] documented as of this encounter Visit Diagnoses Not on filedocumented in this encounter Additional Health Concerns Assessment Noted Time PHQ-9 Depression Total Score: 10 024 2:37 PM EDT documented as of this encounter Care Teams International Sourcing Manager Relationship Specialty Start Date End Date Emy Askew MD [address] [place] [address] PCP - General Internal Medicine 07/25/22 documented as of this encounter
--- OUTSIDE RECORDS SUMMARY | 2024-03-27 13:10 | XMS_ITS | Encounter Summary ---
Author Organization [employer] Address [address] [place] [address] [place] [address] Care Team Providers Care Dye Tub Tender Name Role Phone Emy Askew MD Primary Care Pro vider Reason for Visit * Reason Onset Date Comments pre-op paperwork 10/18/2022 Encounter Details Date Type Department Care Team ([facility] st Contact Info) Description 10/18/2022 Telephone [facility] [address] [place] [address] Emy Askew MD [address] [place] [address] pre-op paperwork Social History Tobacco Use Types Packs/Day Years Used Date Smoking Tobacco: Never Passive Smoke Exposure: Never Smokeless Tobacco: Never Alcohol Use Standard Drinks/Week Comments Never 0 (1 standard drink = 0.6 oz pur e alcohol) Depression Answer Date Recorded Patient Health Questionnaire-9 Score 16 09/24/2022 Depression Answer Date Recorded Patient Health Questionnaire-2 Score 6 09/24/2022 Comments Unknown Sex and Gender Information Value Date Recorded Sex Assigned at Female 01/01/2022 10:15 AM EDT Legal Sex Female 10:15 AM EDT Gender Identity Female 01/01/2022 10:15 AM EDT Sexual Orientation Straight 01/01/2022 10 :15 AM EDT documented as of this encounter Miscellaneous Notes * Telephone Encounter - Akilah Maradiaga RN - 10/25/2022 11:16 AM EDT Faxed pre-op notes, EKG, and labs to surgeon as below. Mailed pt a list of what medications are safe, which are not, which to hold, and which she needs tocontact specialist for. * Telephone Encounter - Akilah Maradiaga RN - 10/25/2022 10:11 AM EDT ----- Message from Emy Goldsmith MD sent at 10/24/2022 6:06 PM EDT ----- Hi please can you fax this preop note to her ankle surgeon I have been calling patient since yesterday to discuss recommendations in regards her medications BUT not able to reach to her phone nor her contact --can you give to pt this information or transfer call to me when able to reach pt --in regards meds prior surgery : can take morning of surgery BB,cardiazem if ok with her surgeon, clonidine, inhalers, Ok to continue methotrexate and leflunomide??( if ok with her robotype operator)-pt to confirm and Cymbalta if taking in am. Hold am of surgery lasix,amytriptiline,lisinopril ??.HoldASA 5 days prior procedure and avoid NSAIDS 7 days prior procedure. Thanks documented in this encounter Plan of Treatment Upcoming Encounters Date Type Department Care Team (Late st Contact Info) Description 03/31/2024 1:00 PM EST Clinical Support [facility] [address] [place] [address] 05/26/2024 1:00 PM EDT Office Visit [facility] [address] [place] [address] Kathryn Yusuf CNM [address] [place] [address] documented as of this encounter Visit Diagnoses Not on filedocumented in this encounter Additional Health Concerns Assessment Noted Time PHQ-9 Depression Total Score: 16 09/24/ 023 10:16 AM EDT documented as of this encounter Care Teams Dye Tub Tender Relationship Specialty Start Date End Date Emy Askew MD [address] [place] [address] PCP - General Internal Medicine 07/25/22 documented as of this encounter
--- OUTSIDE RECORDS SUMMARY | 2024-03-27 13:11 | XMS_ITS | Encounter Summary ---
Author Organization [employer] [facility] Address [address] [place] [address] 7t [place] [address] Care Team Providers Care Auditing Control Clerk Name Role Phone Cyn Bosch MD Primary Care Provider [facility] Primary Care Provider [phone] Emy Askew MD Primary Care Pro vider Encounter Details Date Type Department Care Team (Latest Contact Info) Description 05/09/2020 Abstract [facility] CONVERSIONS Dental, Provider, DDS Social History Tobacco Use Types Packs/Day Years Used Date Smoking Tobacco: Never Assessed Comments Unknown Sex and Gender Information Value Date Recorded Sex Assigned at Female 01/01/2022 10:15 AM EDT Legal Sex Female 10:15 AM EDT Gender Identity Female 01/01/2022 10:15 AM EDT Sexual Orientation Straight 01/01/2022 10 :15 AM EDT documented as of this encounter Plan of Treatment Upcoming Encounters Date Type Department Care Team ( st Contact Info) Description 03/31/2024 1:00 PM EST Clinical Support [facility] [address] [place] [address] 05/26/2024 1:00 PM EDT Office Visit [facility] [address] [place] [address] Kathryn Yusuf CNM [address] [place] [address] documented as of this encounter Visit Diagnoses Not on filedocumented in this encounter Care Teams Auditing Control Clerk Relationship Specialty Start Date End Date Cyn Bosch MD PCP - General Family Medicine 08/20/19 01/21/22 [place] FNP [address] [place] [address] PCP - General Family Medicine 01/22/22 07/24/22 Emy Askew MD [address] [place] [address] PCP - General Internal Medicine 07/25/22 documented as of this encounter
--- OUTSIDE RECORDS SUMMARY | 2024-03-27 13:11 | XMS_ITS | Encounter Summary ---
Author Organization [facility] Address [address] [place] [address] 7 [place] [address] Care Team Providers Care Arboriculturist Name Role Phone Cyn Bosch MD Primary Care Provider [facility] Primary Care Provider [phone] Emy Askew MD Primary Care Pro vider Encounter Details Date Type Department Care Team (Latest Contact Info) Description 09/30/2018 Abstract [facility] CONVERSIONS Dental, Provider, DDS Social History [...] Description 03/31/2024 1:00 PM EST Clinical Support [address] [address] 05/26/2024 1:00 PM EDT Office Visit [facility] [address] [place] [address] Kathryn Yusuf CNM [address] [place] [address] documented as of this encounter Visit Diagnoses Not on filedocumented in this encounter Care Teams Arboriculturist Relationship Specialty Start Date End Date Cyn Bosch MD PCP - General Family Medicine 08/20/19 01/21/22 [place] FNP [address] [place] [address] PCP - General Family Medicine 01/22/22 07/24/22 Emy Askew MD [address] [place] [address] PCP - General Internal Medicine 07/25/22 documented as of this encounter
--- OUTSIDE RECORDS SUMMARY | 2024-03-27 13:11 | XMS_ITS | Encounter Summary ---
Author Organization [employer] [facility] Address [address] [place] [address] 7t [place] [address] Care Team Providers Care Collar Worker Name Role Phone Kenya Sol EMPLOYMENT ADJUDICATOR Primary Care Provider [phone] Emy Askew MD Primary Care Pro vider Encounter Details Date Type Department Care Team (Late st Contact Info) Description 03/26/2022 Orders Only [facility] [address] [place] [address] [phone] Lizett Cannon LPN Social History Tobacco Use Types Packs/Day Years Used Date Smoking Tobacco: Never Smokeless Tobacco: Never Comments Unknown Sex and Gender Information Value [...] suspected to have Coronavirus/COVID-19? No / Unsure 03/07/2022 3:20 PM EST documented as of this encounter Plan of Treatment Upcoming Encounters Date Type Department Care Team (Late st Contact Info) Description 03/31/2024 1:00 PM EST Clinical Support [address] [phone] 05/26/2024 1:00 PM EDT Office Visit [facility] [address] [place] [address] [phone] Kathryn Yusuf CNM [address] [place], [place] [phone] documented as of this encounter Visit Diagnoses Not on filedocumented in this encounter Care Teams Collar Worker Relationship Specialty Start Date End Date Kenya Sol FNP [address] [place] [address] PCP - General Family Medicine 01/22/22 07/24/22 Emy Askew MD [address] [place] [address] PCP - General Internal Medicine 07/25/22 documented as of this encounter
--- OUTSIDE RECORDS SUMMARY | 2024-03-27 13:11 | XMS_ITS | Encounter Summary ---
Author Organization [employer] [facility] Address [address] [place] [address] 7 [place] [address] Care Team Providers Care Biofuels Manager Name Role Phone Cyn Bosch MD Primary Care Provider [facility] Primary Care Provider [phone] Emy Askew MD Primary Care Pro vider Encounter Details Date Type Department Care Team (Latest Contact Info) Description 10/26/2021 Abstract [facility] CONVERSIONS Dental, Provider, DDS Social History [...] Description 03/31/2024 1:00 PM EST Clinical Support [facility] [address] [place] [phone] 05/26/2024 1:00 PM EDT Office Visit [facility] [address] [place] [phone] Kathryn Yusuf CNM [address] [place] [address] documented as of this encounter Visit Diagnoses Not on filedocumented in this encounter Care Teams Biofuels Manager Relationship Specialty Start Date End Date Cyn Bosch MD PCP - General Family Medicine 08/20/19 01/21/22 [place] FNP [address] [place] [address] PCP - General Family Medicine 01/22/22 07/24/22 Emy Askew MD [address] [place] [address] PCP - General Internal Medicine 07/25/22 documented as of this encounter
--- OUTSIDE RECORDS SUMMARY | 2024-03-27 13:11 | XMS_ITS | Encounter Summary ---
Author Organization [employer] [facility] Address [address] [place] [address] 7t [place] [address] Care Team Providers Care Learning Support Teacher Name Role Phone [facility] Primary Care Provider [phone] Emy Askew MD Primary Care Pro vider Reason for Visit * Reason Onset Date Comments VISION 03/13/2022 Encounter Details Date Type Department Care Team ([facility] st Contact Info) Description 03/13/2022 Telephone [facility] [address] [place] [address] [facility] [address] [place] [address] VISION Social History Tobacco Use Types Packs/Day Years [...] PM EST documented as of this encounter Miscellaneous Notes * Telephone Encounter - Keely Lopez - 03/13/2022 10:30 AM EST Tc from pt requesting [facility] with the [facility] regarding an eye exam. Please contact [phone] documented in this encounter Plan of Treatment Upcoming Encounters Date Type Department Care Team (Late st Contact Info) Description 03/31/2024 1:00 PM EST Clinical Support [address] [address] 05/26/2024 1:00 PM EDT Office Visit [address] [phone] Kathryn Yusuf CNM [address] [place] [address] [phone] documented as of this encounter Visit Diagnoses Diagnosis Diabetes 1.5, managed as type 2 (CMS/HCC) documented in this encounter Care Teams Learning Support Teacher Relationship Specialty Start Date End Date Kenya Sol FNP [address] [place] [address] PCP - General Family Medicine 01/22/22 07/24/22 Emy Askew MD [address] [place] [address] PCP - General Internal Medicine 07/25/22 documented as of this encounter
--- OUTSIDE RECORDS SUMMARY | 2024-03-27 13:11 | XMS_ITS | Encounter Summary ---
Author Organization [employer] Address [address] [place] [address] 7 [place] [address] Care Team Providers Care Child Care Name Role Phone Emy Askew MD Primary Care Pro vider Reason for Visit * Reason Comments Med Refill Encounter Details Date Type Department Care Team ([facility] st Contact Info) Description 02/09/2023 Refill [facility] [address] [place] [address] Emy Askew MD [address] [place] [address] Social History Tobacco Use Types Packs/Day Years [...] Description 03/31/2024 1:00 PM EST Clinical Support [facility] [address] [place] [phone] 05/26/2024 1:00 PM EDT Office Visit [address] [address] Kathryn Yusuf CNM [address] [place] [phone] documented as of this encounter Visit Diagnoses Not on filedocumented in this encounter Additional Health Concerns Assessment Noted Time PHQ-9 Depression Total Score: 16 023 10:16 AM EDT documented as of this encounter Care Teams Child Care Relationship Specialty Start Date End Date Emy Askew MD [address] [place] [address] PCP - General Internal Medicine 07/25/22 documented as of this encounter
--- OUTSIDE RECORDS SUMMARY | 2024-03-27 13:11 | XMS_ITS | Clinical Summary ---
Author Organization [email or web address] Address [address] [place] [address] [address] [place] [address] Care Team Providers Care Mission Manager Name Role Phone Emy Askew MD Primary Care Pro vider Allergies Active Allergy Reactions Criticality Noted Date Comments Sulfamethoxazole-Trimethoprim Rash Low 2022 Codeine Unknown 02/28/2010 Sulfamethoxazole Hives,Rash Low 02/28/2010 Trimethoprim Hives 02/28/2010 Other reaction(s): rash Medications furosemide (Lasix) 20 MG tablet Take 20 mg by mouth in the morning. Active DULoxetine (Cymbalta) [address] capsule Take 60 mg by mouth at bedtime. 023 Active albuterol (2.5 MG/3ML) 0.083% nebulizer solution inhale 3 milliliter by nebulization route every 4-6 hours PRN SOB/asthma. 019 Active dextran 70-hypromellose (dextran-70 & hydroxypropyl methylcellulose) 0.1-0.3 % ophthalmic solution use 2 drops into each eye every 1-2 hours as needed for dry eyes 018 Active Mouthwashes (Biotene Dry Mouth) liquid use twice daily as directed to prevent dry mouth Active Fluticasone Furoate-Vilantero l (Breo Ellipta) 100-25 MCG/ACT aerosol powder Inhale 1 puff at bed time. 022 Active leflunomide (Arava) 20 MG tablet Take 20 mg by mouth in the morning. 023 Active gabapentin (Neurontin) 300 MG capsule Take 300 mg by mouth 2 times daily. By psych Active FREESTYLE LITE test stripIndications: Type 2 diabetes mellitus with hyperglycemia ([facility]/HCC),Type 2 diabetes mellitus without complications ([facility]) TEST BLOOD SUGAR FOUR TIMES DAILY 100 strip Active Pentips 32G X 4 MM miscIndications:T ype 2 diabetes mellitus without complication, with long-term current use of insulin ([facility]) USE THREE OR FOUR TIMES DAILY DIRECTED 100 each Active sodium chloride ([place] Nasal [place]) 0.65 % nasal spray Administer 1 spray into each nostril if needed for congestion. 30 mL 024 2024 Active FreeStyle lancets 1 each by Other route at noon and 1 each in the evening. Test blood sugar 4 times a day. 100 each 024 2024 Active docusate sodium (Colace) 100 MG capsuleIndication s:Chronic constipation TAKE 1 CAPSULE BY MOUTH TWICE DAILY NEEDED FOR CONSTIPATION 180 capsule Active aspirin (Aspirin Low Dose) 81 MG EC tablet TAKE 1 TABLET BY MOUTH EVERY MORNING 90 tablet 1 024 Active calcium carbonate 1500 (600 Ca) MG tabletIndications :Benign essential hypertension TAKE 1 TABLET BY MOUTH EVERY MORNING 90 tablet 1 Active estradiol (Estrace) 0.1 MG/GM vaginal cream Insert 1 g into the vagina Once per day. 1g vaginally x 14d, then twice weekly thereafter 45 g 2 Active lidocaine (Lidoderm) 5 % patch APPLY 1 PATCH TOPICALLY TO SKIN IN THE MORNING. LEAVE ON FOR 12 HOURS AND OFF FOR 12 HOURS DIRECTED MAY USE 2 PATCHES 60 patch 2 Active acetaminophen (Tylenol) 500 MG tabletIndications :Acute left-sided low back pain with left-sided sciatica Take 2 tablets (1,000 mg) by mouth every 6 (six) hours if needed for moderate pain, headaches or fever. 30 tablet 024 Active cloNIDine (Catapres) 0.2 MG tablet TAKE 1 TABLET BY MOUTH TWICE DAILY IN THE MORNING AND IN THE EVENING 60 tablet 3 024 Active Farxiga 10 MG TAKE 1 TABLET BY MOUTH EVERY MORNING 30 tablet 2 024 Active melatonin 5 MG tablet Take 10 mg by mouth Once per day. Take 2 tabs by mouth at bedtime Active clonazePAM (KlonoPIN) 0.5 MG tablet Take 0.5 mg by mouth if needed each day. Active amLODIPine (Norvasc) 5 MG tablet Take 5 mg by mouth at noon and 5 mg in the evening. Active senna (Senokot) 8.6 MG tablet Take 2 tablets (17.2 mg) by mouth if needed each day for constipation. 180 tablet 2024 Active atorvastatin (Lipitor) 20 MG tablet Take 1 tablet (20 mg) by mouth at bedtime. 90 tablet 1 Active loratadine (Claritin) 10 MG tablet TAKE 1 TABLET BY MOUTH ONCE DAILY NEEDED FOR ALLERGIES 90 tablet Active losartan (Cozaar) 100 MG tablet Take 1 tablet (100 mg) by mouth Once per day. 90 tablet 2024 Active traZODone (Desyrel) 50 MG tablet Take 1 tablet (50 mg) by mouth if needed at bedtime for sleep. 90 tablet Active cholecalciferol (D3 Super Strength) 50 MCG (2000 UT) capsuleIndication s:Vitamin D deficiency, unspecified Take 1 capsule (50 mcg) by mouth in the morning. 90 capsule 1 Active semaglutide (Ozempic, 1 MG/DOSE,) 2 MG/1.5ML solution pen-injectorIndic ations:Type 2 Diabetes Mellitus Inject 1 mg under the skin 1 (one) time per week. 3 mL 5 Active carvedilol (Coreg) 25 MG tabletIndications :Benign essential hypertension Take 1 tablet (25 mg) by mouth with breakfast and with evening meal. 60 tablet 2 2024 Active Diclofenac Sodium (Voltaren) 1 % gelIndications:Ne ck pain,Osteoarthrit is of both knees, unspecified osteoarthritis type Apply topically to affected area twice a day as needed for pain 30 g Active Ventolin HFA 108 (90 Base) MCG/ACT inhaler INHALE 2 PUFFS BY MOUTH EVERY 6 HOURS NEEDED FOR WHEEZING 18 g 2 12/04/2 024 Active cevimeline (Evoxac) 30 MG capsule Take 1 capsule (30 mg) by mouth 3 times daily. 90 capsule 2 024 Active Alcohol Swabs (Alcohol Prep) 70 % padsIndications:T ype 2 diabetes mellitus without complication, unspecified whether terminal operations manager insulin use (CMS/HCC) USE DIRECTED FIVE TIMES DAILY 100 each 5 025 Active Alcohol Swabs (Alcohol Prep) 70 % padsIndications:T ype 2 diabetes mellitus without complication, unspecified whether terminal operations manager insulin use (CMS/HCC) USE FIVE TIMES DAILY DIRECTED 100 each 11 024 2024 Discontinued Active Problems Problem Noted Date Diagnosed Date Neck pain 01/13/2024 Increased urinary frequency 11/13/2023 Elevated alkaline phosphatase level 05/04/2023 Acute midline low back pain without sciatica 04/2023 Renal cyst 03/20/2023 Poor memory 03/20/2023 Healthcare maintenance 09/24/2022 Assessment & Plan (12/06/2022 6:30 AM EDT): -pap smear 2016 neg /no HPV result -per pt had pap smear 1 y ago here - ---- requested record to [facility] Again today -MM 2020 - BIRADS 1 - referred already, per pt done 11/2022. Requested to PAUL to obtain report. -colonoscopy 10 y ago, referred already gave today information to pt to call for apt. -DEXA scan never, will refer next year -vaccines s/p Hep B x 3 - not immune, refusing revaccination, Covid x 4 - Biv x1 - advised for booster at vaccine clinic, P13 x 1,s/p P20 , Tdap 2017, Shingrix x 2 , flu vaccine today. -10/2022 Alk phos mildly elevated. Repeat in 3 mo. Assessment & Plan (10/23/2022 5:48 PM EDT): -pap smear 2016 neg /no HPV result -per pt had pap smear 1 y ago here - ---- requested record to [facility] Rivero -MM 2020 - BIRADS 1 - referred already -colonoscopy 10 y ago, referred already -DEXA scan never, will refer next year -vaccines s/p Hep B x 3, Covid x 4 - Biv x1-will offer in 4 months 2n booster, P13 x 1,s/p P20 , Tdap 2017, Shingrix x 2 , hep B not immune -would like to consider vaccine -will discuss at next apt ---- -09/2022 AEC 900 -repeat CBC today, IgE and strongy serology -ordered but not done cl/gn -reorder today for screening Assessment & Plan (09/24/2022 8:25 PM EDT): -pap smear done 1 y ago - normal per pt--- ---- requested record to [facility] 2019 - BIRADS 1 - referred today -colonoscopy 10 y ago, referred today -DEXA scan never, will refer next year -vaccines s/p Hep B x 3, Covid x 4 - bivalent today, P13 x 1, P20 today, Tdap 2017, Shingrix x 2 -labs x annual exam- will RTC in fasting - pt agreed to have STI testing including HIV to have for baseline Overweight 09/24/2022 Assessment & Plan (12/06/2022 6:16 AM EDT): Advised pt to improve diet and exercise,discussed healthy life style - house wirer referred already-pd to schedule apt. gave today information to pt to call for apt Assessment & Plan (10/23/2022 5:21 PM EDT): Advised pt to improve diet and exercise,discussed healthy life style - house wirer referred already-pd to schedule apt Assessment & Plan (09/24/2022 8:29 PM EDT): Advised pt to improve diet and exercise,discussed healthy life style -discussed house wirer referral - today Sialoadenitis of submandibular gland 09/14/2022 Assessment & Plan (12/06/2022 6:17 AM EDT): -Neck CT 02/12/2019 No suspicious or enlarged cervical lymph nodes are seen within the neck. An 8 mm low-attenuation lesion is noted in the central aspect of the right palatine tonsil. Direct visual inspection of this lesion is recommended. Atrophy of the bilateral salivary glands noted. - Pt saw ENT in the past - no mention about CT finding. And pt reports was referred by ENT for further eval in [place] but never went -referred again to ENT to continue care - states that she has an apt on 01/2023. Assessment & Plan (10/23/2022 5:22 PM EDT): -Neck CT 02/12/2019 No suspicious or enlarged cervical lymph nodes are seen within the neck. An 8 mm low-attenuation lesion is noted in the central aspect of the right palatine tonsil. Direct visual inspection of this lesion is recommended. Atrophy of the bilateral salivary glands noted. - Pt saw ENT in the past - no mention about CT finding. And pt reports was referred by ENT for further eval in [place] but never went -referred again to ENT to continue care Assessment & Plan (09/24/2022 8:46 PM EDT): -Neck CT 02/12/2019 No suspicious or enlarged cervical lymph nodes are seen within the neck. An 8 mm low-attenuation lesion is noted in the central aspect of the right palatine tonsil. Direct visual inspection of this lesion is recommended. Atrophy of the bilateral salivary glands noted. - Pt saw ENT in the past - no mention about CT finding. Will discuss w pt about following w her ENT specialist about CT finding. Rheumatoid arthritis with positive rheumatoid fa ctor 03/07/2022 Assessment & Plan (12/06/2022 6:18 AM EDT): Pt w RA / Sjogren's disease, follows w stock unloader - Continue care w specialist -on leflunomide and MTX Assessment & Plan (10/23/2022 5:23 PM EDT): Pt w RA / Sjogren's disease, follows w stock unloader - Continue care w specialist -on leflunomide and MTX Assessment & Plan (09/24/2022 8:33 PM EDT): Pt w RA / Sjogren's disease, follows w stock unloader - Continue care w specialist Bilateral post-traumatic osteoarthritis of knee 03/07/2022 Assessment & Plan (12/06/2022 6:12 AM EDT): -left knee MRI wo contrast 2019 Degeneration and attritional wear of the posterior horn and body of the medial meniscus with ill-defined inner margin tearing of the extruded meniscal body.Moderate-severe medial compartment and mild patellofemoral/lateral compartment osteoarthritis. Small Carrion's cyst. No significant joint effusion. No acute osseous abnormality. -right knee MRI wo contrast 2019: 1. Moderate medial compartment osteoarthritis and more mild osteoarthritis in the patellofemoral compartment. 2. Moderate-sized joint effusion. 3. Intact menisci. -bl knee XR 10/2022 By ortho: severe medial compartment arthritis -already f w orthopedic to consider for knee surgery at future - Tylenol PRN and advise against chronic NSAID use. Assessment & Plan (10/23/2022 5:16 PM EDT): -left knee MRI wo contrast 2019 Degeneration and attritional wear of the posterior horn and body of the medial meniscus with ill-defined inner margin tearing of the extruded meniscal body.Moderate-severe medial compartment and mild patellofemoral/lateral compartment osteoarthritis. Small Carrion's cyst. No significant joint effusion. No acute osseous abnormality. -right knee MRI wo contrast 2019: 1. Moderate medial compartment osteoarthritis and more mild osteoarthritis in the patellofemoral compartment. 2. Moderate-sized joint effusion. 3. Intact menisci. -bl knee XR 10/2022 By ortho: severe medial compartment arthritis -already f w orthopedic to consider for knee surgery at future - Tylenol PRN and advise against chronic NSAID use. Assessment & Plan (09/24/2022 8:45 PM EDT): -left knee MRI wo contrast 2019 Degeneration and attritional wear of the posterior horn and body of the medial meniscus with ill-defined inner margin tearing of the extruded meniscal body.Moderate-severe medial compartment and mild patellofemoral/lateral compartment osteoarthritis. Small Carrion's cyst. No significant joint effusion. No acute osseous abnormality. -right knee MRI wo contrast 2019: 1. Moderate medial compartment osteoarthritis and more mild osteoarthritis in the patellofemoral compartment. 2. Moderate-sized joint effusion. 3. Intact menisci. - Has appt w ortho next mo. - Tylenol PRN and advise against chronic NSAID use. Assessment & Plan (03/07/2022 5:02 PM EST): Advanced, declined orthopedic intervention 2y ago, doesn't want to go back to ortho for now. She will fu with rheumatology Next month and will ask for steroid injection if needed Will give PRD 20mg and continue meloxicam 15mg for 1-2w, then tylenol prn only FU w PCP in 3-4w Declined PT at this time. Sprain of right ankle 03/07/2022 Assessment & Plan (12/06/2022 6:12 AM EDT): -right knee MRI wo contrast 2019: 1. Moderate medial compartment osteoarthritis and more mild osteoarthritis in the patellofemoral compartment. 2. Moderate-sized joint effusion. 3. Intact menisci. -XR ANKLE, RIGHT 05/2022 Subtle cortical irregularity of the distal lateral fibula. Recommend clinical correlation with point tenderness for possible minimally displaced fracture. -MRI right ankle by orthopedic 10/2022 : Prominent irregular partial tearing of peroneal brevis tendon - Referred to ortho-seen already and recommended for surgery. Pre-op was done at last apt, but pt wants to hold for now until she completes eval w cardio. - Tylenol PRN Assessment & Plan (10/23/2022 5:16 PM EDT): -right knee MRI wo contrast 2019: 1. Moderate medial compartment osteoarthritis and more mild osteoarthritis in the patellofemoral compartment. 2. Moderate-sized joint effusion. 3. Intact menisci. -XR ANKLE, RIGHT 05/2022 Subtle cortical irregularity of the distal lateral fibula. Recommend clinical correlation with point tenderness for possible minimally displaced fracture. -MRI right ankle by orthopedic 10/2022 : Prominent irregular partial tearing of peroneal brevis tendon - Referred to ortho-seen already to have surgery - Tylenol PRN Assessment & Plan (09/24/2022 8:49 PM EDT): -right knee MRI wo contrast 2019: 1. Moderate medial compartment osteoarthritis and more mild osteoarthritis in the patellofemoral compartment. 2. Moderate-sized joint effusion. 3. Intact menisci. -XR ANKLE, RIGHT 05/2022 Subtle cortical irregularity of the distal lateral fibula. Recommend clinical correlation with point tenderness for possible minimally displaced fracture. - Referred to ortho today for chronic ankle pain and noted swelling on exam - Tylenol PRN Assessment & Plan (03/07/2022 5:00 PM EST): 2y ago. Has residual pain and instability I will rx ankle brace to use prn, fu with PCP Asthma 07/08/2017 Severe recurrent major depre ssion without psychotic features 07/08/2017 Assessment & Plan (12/06/2022 6:18 AM EDT): Pt following w psychiatrist and therapist at [facility]. Denies SI but has thoughts to be better off . - Continue care w specialist - Pt requests information to be able to change to an old age home --already received information -in process per pt Assessment & Plan (10/23/2022 5:23 PM EDT): Pt following w psychiatrist and therapist at [facility]. Denies SI but has thoughts to be better off . - Continue care w specialist - Pt requests information to be able to change to an old age home --already received information -in process per pt Assessment & Plan (09/24/2022 8:32 PM EDT): Pt following w psychiatrist and therapist at [facility]. Denies SI but has thoughts to be better off . - Continue care w specialist - Pt requests information to be able to change to an old age home -- I spoke w correctional counselor/case manager today and they will come to speak w pt to give info. Was told that there is no need to refer to CM for this. Type 2 diabetes mellitus without complication Assessment & Plan (12/06/2022 6:16 AM EDT): 09/2022 HbA1C 8.2<---8.7, CBG 248., total ch 169, trig 324( in fasting) ,HDL 36,LDL 69, Microalb neg Used to follow w state patrol officer, but lost care. Not on metformin for GI SE -per pt event in low doses Reports home CBGs in fasting now from 154-224 - in previous visits range was at 200 to 300s -Continue for now Trulicity 1.5 mg weekly -Started today Farxiga 5 mg every day (denies Hx of recurrent UTIs or yeast infections) - Stopped today acarbose 75 mg TID. If elevated CBGs will increase Farxiga to 10 mg every day. -Continue atorvastatin 20 mg daily -DM labs and fasting lipids in 3 mo -Ophthalmology 07/2022 - to f in 1 y. - Conference Services Coordinator: seen in 11/2022 Assessment & Plan (10/23/2022 5:46 PM EDT): 09/2022 HbA1C 8.2<---8.7, CBG 248., total ch 169, trig 324( in fasting) ,HDL 36,LDL 69, Microalb neg Used to follow w state patrol officer, but lost care. Not on metformin for GI SE -per pt event in low doses Reports home CBGs in fasting 200 to 300s - increase today Trulicity to 1.5 from 0.75 mg daily -pt on acarbose 75 mg TID -increase atorvastatin to 20 mg daily from 10 , offer instead omega 3 daily for elevated trig but prefers to avoid more tablets -diet changes advised -DM labs and fasting lipids in 3 mo -will consider then to switch her acarbose for SGLT2 if no contraindications -Ophthalmology 07/2022 - to f in 1 y. - Conference Services Coordinator: referred today Assessment & Plan (09/24/2022 8:51 PM EDT): Today HbA1C 8.7, CBG 248. Used to follow w state patrol officer, but lost care. - DM2 labs. - Will consider increasing Trulicity at her next appt. - Pt not currently on Metformin, but used to be in the past. Will check at her next appt, and if she can tolerate it, will resume Rx. - Ophthalmology 07/2022 - to f in 1 y. - Conference Services Coordinator: will refer at next visit. Varicose veins of lower extremity 07/08/2017 Assessment & Plan (10/23/2022 5:12 PM EDT): Pt w lower extremity edema trace from 1+ before , possibly from Cardiazem and venous insufficiency. - Advised to use compression stockings,--started using with noted improved LE edema -I confirmed today w her pattern hand-Dr Watkins #[phone] that pt does not have CHF and lasix was px for LE edema ---will repeat today chem but if noted again to have borderline K+ last 3.3 will decrease use to 3 times a week -cardiology ok w that Assessment & Plan (09/24/2022 8:37 PM EDT): Pt w lower extremity edema 1+, possibly from Cardiazem and venous insufficiency. - Advised to use compression stockings, which she has at home but is not using. Continue to monitor. Obstructive sleep apnea syndrome 02/26/2017 Assessment & Plan (10/23/2022 5:07 PM EDT): Pt not using CPAP machine, because of probs w it. Pt will schedule appt w sleep medicine for f up Assessment & Plan (09/24/2022 8:29 PM EDT): Pt not using CPAP machine, because of probs w it. Pt will schedule appt w sleep medicine for f up Sjogren's syndrome 02/26/2017 Assessment & Plan (12/06/2022 6:19 AM EDT): Pt following with stock unloader. Pt w consistently dry mouth. From med list, not on Rx to help w that. Will check w pt at next visit, and if not taking any, will prescribe Cevimeline. Benign essential hypertension 12/24/2016 Assessment & Plan (12/06/2022 6:29 AM EDT): Brings BP readings from home majority wnl < 140/90 including readings < 120s, has few 140s but in one occasion has doc 194/116 ? - Holter 2019 neg. -echocardiogram 2018: The left ventricular systolic function is normal. The visually estimated ejection fraction is between 60-65%. -stress test 2019 : nondiagnostic EKG For ischemia. -Microlb 10/2022 - neg, K+3.6, and creat wnl. -Here BP wnl, will continue Lisinopril 40 mg, Diltiazem 360 mg, clonidine to 0.2 mg AM and 0.1 mg in PM and taking Lasix 20 mg daily given by cardio in the past for unclear reasons. - PT following w pattern hand actively w on and off chest discomfort. Scheduled per pt for stress test. -Advised pt to monitor home BP every other day and to take readings to her cardio at next apt. If again elevated BP may need 24 h BP monitoring. -Eye exam - will discuss w pt at next visit. Assessment & Plan (10/23/2022 5:10 PM EDT): BP elevated today as well at last visit - Holter 2019 neg. -echocardiogram 2018: The left ventricular systolic function is normal. The visually estimated ejection fraction is between 60-65%. -stress test 2019 : nondiagnostic EKG For ischemia. -given again BP elevated,despite reported to be compliant w all her meds will increase clonidine to 0.2 mg from 0.1 in am and continue 0.1 mg in pm - PT following w pattern hand -will f BP in next 3 to 4 weeks Assessment & Plan (09/24/2022 8:43 PM EDT): BP slightly elevated at 144/94 - Holter 2019 neg. -echocardiogram 2018The left ventricular systolic function is normal. The visually estimated ejection fraction is between 60-65%. -stress test 2019 : nondiagnostic EKG For ischemia. - Will monitor BP manually at next visit. - PT following w pattern hand Chronic constipation 12/24/2016 Gastroesophageal reflux disease without esophagi tis 12/24/2016 Hyperlipidemia associated wi th type 2 diabetes mellitus ([facility]) 12/24/2016 Migraine 12/24/2016 Resolved Problems Problem Noted Date Diagnosed Date Resolved Date Eosinophilia 12/06/2022 01/13/2024 Assessment & Plan (12/06/2022 6:26 AM EDT): -10/2022 AEC 700 (12.3%) <--- 900 Strongy serology equivocal x2. IgE wnl -Will treat for likely Strongy infection. Pt w partial immunosuppression with RA meds - Ivermectin 15 mg daily (5 tab) and repeat same dose in 14 d (checked w pharmacy today and no interaction w her chronic meds) -repeat CBC and strongy serology in 3 mo Preop examination 10/23/2022 12/06/2022 Assessment & Plan (10/23/2022 5:49 PM EDT): PREOPERATIVE ASSESSMENT AND PLAN: Procedure: right perennial brevis repair Date of Procedure: n/a--not scheduled yet Lab: yes EKG: yes Anesthesia: general RCRI is 0 going for intermediate risk procedure to be done under general anesthesia Pt with poor activity tolerance -per pt more for chronic knee pain and ankle pain EKG today NSR,left axid deviation, HR 76x', slight repolarization disturbance .QTC 495 -noted elevated QTC at 495 today from normal at last EKG 465 in 2016 here . I called her pattern hand today and he reports last EKG was normal as well Strategic Planning Manager -Dr Watkins states given QTC < 500 ms ok to have surgery but recommends to have a post op EKG to monitor -auscultated today few crackles in lung bases -referred for CXR and will repeat CBC and chem to monitor K+ last borderline at 3.3. ProBNP -when have CXR result and labs will call pt and if stable will complete evaluation and will have it fax to her surgeon -will advise in regards meds prior surgery : can take morning of surgery BB,cardiazem if ok w surgeon, clonidine, inhalers, Ok to continue methotrexate and leflunomide ( if ok wit her stock unloader)-pt to ask and Cymbalta if taking in am. Hold am of surgery lasix,amytriptiline,lisinopril .Hold ASA 5 days prior procedure and avoid NSAIDS 7 days prior procedure. -will rec to have post op EKG as rec by her pattern hand for noted prolonged QTC -will rec to be careful with neck manipulation for RA hx -BP and glucose is not optimal but ranges not for contraindicating surgery Abnormal QT interval present on electrocardiogram 10/23/2022 05/04/2023 Assessment & Plan (12/06/2022 6:28 AM EDT): EKG 10/2022 w QTC at 495 -I called pharmacy and went over all her meds and probably higher risk is amytriptyline ,seems duloxetine less likely as well less probable from clonidine that is regular release -Discussed today w pt and will stop amitriptyline-seems taking for neuropathy? However pt also on Duloxetine which can also help--from pharmacy records taking both Cymbalta and amitriptyline for the past 9 years ( 2013) -pt to f up w cardiology -All med changes done today discussed w [facility] staff Assessment & Plan (10/23/2022 5:47 PM EDT): EKG today w QTC at 495 Pt denies symptoms -I called pharmacy and went over all her meds and probably higher risk is amytriptyline ,seems duloxetine less likely as well less probable from clonidine that is regular release -will discuss w pt about stopping amitriptyline-seems taking for neuropathy? - advised pt to discuss w her psychiatrist 1st if can stop and continue only duloxetine---from pharmacy records taking both Cymbalta and amitriptyline for the past 9 years ( 2013) -pt to f up w cardiology in 2 months 12/2022 For echocardiogram ,advise pt to continue care w cards for this as well Sicca syndrome 07/08/2017 09/24/2022 Chronic obstructive lung disease 02/26/2017 03/20/2023 Assessment & Plan (10/23/2022 5:08 PM EDT): From chart Hx of COPD / asthma - Pt denies needing Albuterol, and is not using other inhalers, so well controlled. - Refilled Albuterol today in case it's needed. Assessment & Plan (09/24/2022 8:35 PM EDT): From chart Hx of COPD / asthma - Pt denies needing Albuterol, and is not using other inhalers, so well controlled. - Refilled Albuterol today in case it's needed. Encounters Date Type Department Care Team Description 03/25/2024 Refill [facility] [address] [place] [address] Emy Askew MD Type 2 diabetes mellitus without complication, unspecified whether terminal operations manager insulin use (CMS/[facility]) 03/20/2024 Travel 03/17/2024 Telephone [facility] [address] [place] [address] Kaylen Rausch, RN Appointment Request 03/10/2024 Telephone [facility] [address], [place] [address] Emy Askew MD 02/23/2024 Orders Only [facility] [address] [place] [address] Waylon Ca MD 02/18/2024 Telephone [facility] [address] [place] [address] Emy Askew MD Referral 02/18/2024 Refill [facility] [address] [place], [place] [address] Emy Askew MD 02/17/2024 Orders Only GENERIC EXTERNAL DATA DEPARTMENT Provider, Generic External Data 02/14/2024 Refill [facility] [place] [place], [place] [address] Emy Askew MD 02/10/2024 Orders Only GENERIC EXTERNAL DATA DEPARTMENT Provider, Generic External Data 02/04/2024 Refill [facility] [place], [place] [address] Emy Askew MD 01/28/2024 Telephone [facility] [place], [place] [address] Emy Askew MD 01/17/2024 Telephone [facility] [address], [place] [address] Emy Askew MD 01/13/2024 1:45 PM EST Office Visit [facility] [place], [place] [address] Emy Askew MD Type 2 diabetes mellitus without complication, unspecified whether terminal operations manager insulin use ([facility]) (Primary Dx); Vitamin D deficiency, unspecified; Elevated parathyroid hormone; Abnormal CT of the abdomen; Benign essential hypertension; Neck pain; Osteoarthritis of both knees, unspecified osteoarthritis type; Sialoadenitis of submandibular gland; Healthcare maintenance; Increased urinary frequency; Poor memory; Rheumatoid arthritis with positive rheumatoid factor, involving unspecified site ([facility]); Sjogren's syndrome, with unspecified organ involvement ([facility]) 01/13/2024 Travel 01/13/2024 Telephone [facility] [address] [place] [address] Jessica Valenzuela MA chart prep 01/08/2024 9:00 AM EST Office Visit [facility] [address] [place] [address] Tobias, Rachel, OD Type 2 diabetes mellitus without ophthalmic manifestations ([facility]) (Primary Dx); Combined forms of age-related cataract of both eyes; Presbyopia of both eyes 01/08/2024 Travel from Last 3 Months Immunizations Name Administration Dates Next Due Hep B, adult 11/25/2007,05/08/2007,04/10/2007 Influenza Injectable Quadriv alant Preservative Free IIV4 MDCK 01/06/2016 Influenza injectable quadriv alent IIV4 with preservative 12/10/2017,11/16/2016 Influenza injectable quadriv alent preservative free 12/05/2022,12/15/2020,12/01/2019,01/15,11/29/2014 Influenza, IIV3, injectable 11/13/2013,0 11/15/2012,12/03/2011,11/14 Influenza, seasonal, injecta ble, preservative free 11/26/2017 Pfizer Covid-19 Vaccine 12+ 03/20/2023 Pfizer Covid-19 Vaccine 12+ Bivalent 09/24/2022 Pneumococcal Conjugate PCV 13 12/18/2017 Pneumococcal Conjugate PCV 20 09/24/2022 Pneumococcal Polysaccharide PPSV23 03/11/2006 RSV Adjuvant 06/01/2023 RSV Bivalent 06/01/2023 TD (adult), 2 Lf tetanus tox oid, preservative free, adsorbed 03/11/2006 Tdap 11/16/2016,10/17/2011 Zoster, Recombinant 11/23/2020,09/20/2020 Family History Medical History Relation Name Comments DM2 Brother Dm2 Father Throat cancer Father DM2 Mother Glaucoma Mother Uterine cancer Sister 72 in 2023, n o recurrence Relation Name Status Comments Brother Father Mother Sister Social History Tobacco Use Types Packs/Day Years Used Date Smoking Tobacco: Never Passive Smoke Exposure: Never Smokeless Tobacco: Never Tobacco Cessation:Counseling Given: Not Answered Alcohol Use Standard Drinks/Week Comments Never 0 [...] Orientation Straight 01/01/2022 10 :15 AM EDT Last Filed Vital Signs Vital Sign Reading Time Taken Comments Blood Pressure 141/89 01/13/2024 1:44 PM EST Pulse 82 01/13/2024 1:44 PM EST Temperature 36.3 ??C (97.3 ??F) 01/13/2024 1:44 PM ES T Respiratory Rate 20 01/13/2024 1:44 PM EST Oxygen Saturation 98% 01/13/2024 1:44 PM EST Inhaled Oxygen Concentration - - Weight 65.4 kg (144 lb 3.2 oz) 01/13/2024 1:44 P M EST Height 154.9 cm (5' 1 ) 01/13/2024 1:44 PM EST Body Mass Index 27.25 01/13/2024 1:44 PM EST Plan of Treatment Upcoming Encounters Date Type Department Care Team (Late st Contact Info) Description 03/31/2024 1:00 PM EST Clinical Support [address] [address] 05/26/2024 1:00 PM EDT Office Visit [facility] [address] [place] [phone] Alden Cai, CN [address] [place] [address] Health Maintenance Due Date Last Done Comments CT Colonography 1960 FIT DNA/Cologuard 1960 FIT 1960 FOBT 1960 Sigmoidoscopy 1960 Diabetes: Foot Exam 1968 Dental Oral Exam 04/29/2022 10/26/2021, 10/2020, 04/06/2019, Additional history exists Dental Prophylaxis 01/18/2023 07/17/2022, 0 10/26/2021, 04/14/2021, Additional history exists Dental X-Ray: Full Mouth 08/20/2023 08/18/2020, 03/0 10/2020 COVID-19 Vaccine ( season) 2023 03/20/2023, 09/24/2022, 10/04/2021, Additional history exists Influenza Vaccine (#1) 2023 , 12/15/2020, 12/01/2019, Additional history exists Diabetes: Hemoglobin A1C 03/26/2024 024, 06/26/2023, 04/04/2023, Additional history exists Colonoscopy 05/08/2024 05/09/2023 Colorectal Cancer Screening 05/08/2024 Depression Monitoring (PHQ-9) 05/11/2024 11/12/2023, 11/12/2023 Dental X-Ray: Bitewings 06/10/2024 06/10/19 24, 03/01/2023, 10/26/2021, Additional history exists SDOH Screening 10/31/2024 11/01/2023 Depression Screening 11/11/2024 11/12/2023, 11/12/19 Mammogram 11/21/2024 11/21/2022, 05/2 09/2021, 07/24/2021, Additional history exists Diabetes: Urine Protein Screening 12/24/2024 12/25/2023, 10/04/2022, 12/21/2020, Additional history exists Lipid Panel 12/24/2024 12/25/2023, 02/0 03/2023, 10/04/2022, Additional history exists Alcohol/Substance Use Screening 01/12/2025 01/13/2024 Tobacco Screening 01/12/2025 01/13/2024 Eye Exam 01/07/2026 01/08/2024, 11/0 08/2023, 01/08/2024, Additional history exists DTaP/Tdap/Td Vaccines (3 - Td or Tdap) 11/16/2026 11/16/2016, 10/17/2011, 03/11/2006 Cervical Cancer Screening 05/26/2028 HPV/Cotest 05/26/2028 05/27/2023 Pap Smear 05/26/2028 05/27/2023 Hepatitis B Vaccines Completed 11/25/2007, 05/08/2007, 04/10/2007 Zoster Vaccines Completed 11/23/2020, 09/20/2020 Pneumococcal Vaccine: 65+ Years Completed 09/24/2022, 12/18/2017, 03/11/2006 Hepatitis C Screening Completed 10/04/2022 RSV Patients and Patients Aged 60 years or older Completed 06/01/2023, 06/01/2023 HIB Vaccines Aged Out No longer eligi [...] patient's age to complete this topic Meningococcal Vaccine Aged Out No yasmin augustine eligible based on patient's age to complete this topic RSV under 20 months Aged Out No longe r eligible based on patient's age to complete this topic Rotavirus Vaccines Aged Out No longer eligible based on patient's age to complete this topic Procedures Procedure Name Priority Date/Time Associated Diagnosis Comments ALDOSTERONE, LC/MS/MS Routine 02/17/2024 11:20 AM EST PLASMA RENIN ACTIVITY, LC/MS/MS Routine 02/17/2024 11:20 AM EST CALCIUM, IONIZED Routine 02/17/2024 11:2 0 AM EST PTH, INTACT WITHOUT CALCIUM Routine 02/17/2024 11:20 AM EST ALBUMIN Routine 02/17/2024 11:20 AM EST MAGNESIUM Routine 02/17/2024 11:20 AM EST PHOSPHATE ( PHOSPHORUS) Routine 02/17/2024 11:20 AM EST BASIC METABOLIC PANEL Routine 02/17/2024 11:20 AM EST ALDOSTERONE, URINE, 24 HOUR Routine 02/17/2024 6:30 AM EST CALCIUM, 24 HOUR URINE (W/ CREATININE) Routine 02/17/2024 6:30 AM EST CREATININE, 24 HR GROUP Routine 02/17/2024 6:30 AM EST SODIUM, 24-HOUR URINE WITH CREATININE Routine 02/17/2024 6:30 AM EST GLUCOSE, WHOLE BLOOD Routine 02/10/2024 12:52 PM EST HEMOGLOBIN A1C Routine 12/25/2023 7:08 AM EDT Annual physical exam LIPID PANEL, STANDARD Routine 12/25/2023 7:08 AM EDT Annual physical exam ALBUMIN, RANDOM URINE W/CREATININE Routine 12/25/2023 7:05 AM EDT Annual physical exam BITEWING - SINGLE RADIOGRAPHIC IMAGE Routine 06/10/2023 3:30 PM EDT Periodontal disease Fractured dental catholic with loss of material HPV MRNA E6/E7 REFLEX TO HPV 16, 18/45 Routine 05/27/2023 10:50 AM EDT PAP SMEAR Routine 05/27/2023 10:50 AM EDT Cervical cancer screening HM COLONOSCOPY Routine 05/09/2023 6:56 PM EST BI MAMMOGRAM SCREENING TOMOSYNTHESIS BILATERAL Routine 11/21/2022 3:35 PM EDT HEPATITIS C ANTIBODY REFLEX Routine 10/04/2022 9:42 AM EDT PROPHYLAXIS - ADULT Routine 07/17/2022 1 1:00 AM EDT PERIODIC ORAL EVALUATION - ESTABLISHED PATIENT Routine 10/26/2021 12:00 AM EDT PANORAMIC RADIOGRAPHIC IMAGE Routine 08/18/2020 12:00 AM EDT from Last 3 Months or Most Recently Relevant to Health Maintenance Results * Aldosterone, LC/MS/MS (02/17/2024 11:20 AM EST) Aldosterone, LC/MS/MS 9 see note ng/dL [facility] Comment:Unable to flag abnor mal result(s), please refer to reference range(s) below:Adult Reference Ranges for Aldosterone, LC/MS/MS: Upright 8:00 - 10:00 am < or = 28 ng/dL Upright 4:00 - 6:00 pm < or = 21 ng/dL Supine 8:00 - 10:00 am 3 - 16 ng/dLThis test was developed and its analytical performancecharacteristics have been determined by [facility] [place], [place]. It hasnot been cleared or approved by the U.S. Food and DrugAdministration. This assay has been validated pursuantto the CLIA regulations and is used for clinicalpurposes.THIS TEST WAS PERFORMED AT:[employer] [id number] [place] [address]MZCNNVGMONROE SORENSEN MD,PHD 02/17/2024 11:2 0 AM EST 02/17/2024 11:24 AM EST Generic External Data Provider LAB BLOOD ORDERAB LES Final Result Performing Organization Address [facility]/ZIP Co de Phone Number [facility] [address] [place] [phone] * Plasma Renin Activity, LC/MS/MS (02/17/2024 11:20 AM EST) [facility] Plasma Renin Activity, LC/MS/MS 0.47 0.25 - 5.82 ng/mL/h [facility] Comment:This test was develo ped and its analytical performancecharacteristics have been determined by [facility] [place], [place]. It hasnot been cleared or approved by the U.S. Food and DrugAdministration. This assay has been validated pursuantto the CLIA regulations and is used for clinicalpurposes.THIS TEST WAS PERFORMED AT:[employer]/[id number] [place] [address]XPGQBARMONROE SORENSEN MD,PHD 02/17/2024 11:2 0 AM EST 02/17/2024 11:24 AM EST Generic External Data Provider LAB BLOOD ORDERAB LES Final Result Performing Organization Address [facility]/ZIP Co de Phone Number [facility] [address] [place] [phone] * Phosphate (As Phosphorus) (02/17/2024 11:20 AM EST) Phosphorus 3.0 2.7 - 4.5 mg/dL [facility] 02/17/2024 11:2 0 AM EST 02/17/2024 11:24 AM EST Generic External Data Provider LAB BLOOD ORDERAB LES Final Result Performing Organization Address City/[facility]/ZIP Co de Phone Number [facility] [address] [place] [phone] * (ABNORMAL) PTH, Intact Without Calcium (02/17/2024 11:20 AM EST) Parathyroid Hormone, Intact 96.5(H) 8.7 - 77.1 pg/mL [facility] 02/17/2024 11:2 0 AM EST 02/17/2024 11:24 AM EST us Generic External Data Provider LAB BLOOD ORDERAB LES Final Result Performing Organization Address [facility] Co de Phone Number [facility] [address] [place] [phone] * Magnesium (02/17/2024 11:20 AM EST) Magnesium 2.2 1.6 - 2.6 mg/dL [facility] 02/17/2024 11:2 0 AM EST 02/17/2024 11:24 AM EST Generic External Data Provider LAB BLOOD ORDERAB LES Final Result Performing Organization Address [facility] Co de Phone Number [facility] [address] [place] [phone] * Calcium, Ionized (02/17/2024 11:20 AM EST) Calcium, Ionized 5.1 4.7 - 5.5 mg/dL [facility] Comment:THIS TEST WAS PERFOR MED AT:[employer] [place] [id number] CAMARENA MD 02/17/2024 11:2 0 AM EST 02/17/2024 11:24 AM EST Generic External Data Provider LAB BLOOD ORDERAB LES Final Result Performing Organization Address [facility] de Phone Number [facility] [address] [place] [phone] * Albumin (02/17/2024 11:20 AM EST) Pathologist [facility] Albumin Level 3.8 3.5 - 5.0 g/dL [facility] 02/17/2024 11:2 0 AM EST 02/17/2024 11:24 AM EST Generic External Data Provider LAB BLOOD ORDERAB LES Final Result Performing Organization Address [facility] de Phone Number [facility] [address] [place] [phone] * (ABNORMAL) Basic Metabolic Panel (02/17/2024 11:20 AM EST) Sodium 142 135 - 145 mmol/L [facility] Potassium 3.4 3.3 - 5.1 mmol/L [facility] Chloride 107 96 - 108 mmol/L [facility] Carbon Dioxide 26 22 - 29 mmol/L [facility] Anion Gap 12 12 - 20 [facility] Urea Nitrogen (BUN) 13 9 - 16 mg/dL [facility] Creatinine, Serum 0.82 0.5 - 1.4 mg/dL [facility] Estimated Glomerular Filt Rate >60 [facility] Comment:Chronic Kidney Disea se: Estimated GFR < 60 mL/min/1.03d6Mautxu Kidney Disease: Estimated GFR < 15 mL/min/1.73m2 Glucose 232(H) 60 - 115 mg/dL [facility] Calcium 9.2 8.4 - 10.2 mg/dL [facility] 02/17/2024 11:2 0 AM EST 02/17/2024 11:24 AM EST Generic External Data Provider LAB BLOOD ORDERAB LES Final Result Performing Organization Address [facility] Phone Number [facility] [address] [place] [phone] * (ABNORMAL) Sodium, 24-Hour Urine with Creatinine (02/17/2024 6:30 AM EST) Sodium, 24 Hour Urine 123.5 40 - 220 mmol/Day [facility] Creatinine, 24 Hour Urine 0.6(L) 1.0 - 2.0 G/Day [facility] Creatinine, Urine 37.00 [facility] Urine Total Volume 24 Hour 1,625 mL [facility] 02/17/2024 6:30 AM EST 02/17/2024 12:40 PM EST Narrative [facility] - 02/17/2024 1:48 PM EST [id number] Generic External Data Provider LAB URINE ORDERAB LES Final Result Performing Organization Address [facility] de Phone Number [facility] [address] [place] [phone] * (ABNORMAL) CREATININE, 24 HR GROUP (02/17/2024 6:30 AM EST) Creatinine, 24 Hour Urine 0.6(L) 1.0 - 2.0 G/Day [facility] Creatinine, Urine 35.04 [facility] Urine Total Volume 24 Hour 1,625 mL [facility] 02/17/2024 6:30 AM EST 02/17/2024 12:40 PM EST Narrative [facility] - 02/17/2024 1:48 PM EST [id number] Generic External Data Provider LAB URINE ORDERAB LES Final Result Performing Organization Address [facility]/ZIP Co de Phone Number [facility] [address] [place] [phone] * (ABNORMAL) Calcium, 24 Hour Urine W/ Creatinine (02/17/2024 6:30 AM EST) Calcium, 24 Hour Urine 177 mg/24 h [facility] Comment:Reference Range 35-2 50 Low calcium diet 35-200 Calcium/Creatini ne Ratio 321(A) 30 - 275 mg/g creat [facility] Creatinine, 24 Hour Urine 0.55 0.50 - 2.15 g/24 h [facility] Comment:THIS TEST WAS PERFOR MED AT:[facility] [facility] [address] [address]MVNTRDOREEN CAMARENA MD 02/17/2024 6:30 AM EST 02/17/2024 12:40 PM EST Narrative [facility] - 02/18/2024 6:13 PM EST [id number] us Generic External Data Provider LAB URINE ORDERAB LES Final Result Performing Organization Address [facility]/ZIP Co de Phone Number [facility] [address] [place] [phone] * Aldosterone, urine, 24 hour (02/17/2024 6:30 AM EST) Creatinine, Urine 0.55 0.50 - 2.15 g/24 h [facility] Comment:THIS TEST WAS PERFOR MED AT:[id number] [place] [id number] GILL MD,PHD,AISSATOU Total Volume 1625 mL [facility] Aldosterone, 24-Hour Urine 1.3 mcg/24 h [facility] Comment:This test was perfor med by LCMSMS.Adult Reference Ranges for Aldosterone 24 hour urine (mcg/24hrs):Random sodium diet: 2.3-21.0 mcg/24 hoursOral sodium loading test (high salt diet for 3 days): 12 mcg/24 hrs or lessAlexandra JW, Yumiko RM, Danyel F, et al. The Management ofPrimary Aldosteronism: Case Detection, Diagnosis, andTreatment: An Endocrine Society Clinical Practice Guideline.J Clin Endocrinol Metab. 2016; 101:6893-1794.This test was developed and its analytical performancecharacteristics have been determined by [employer].It has not been cleared or approved by FDA. This assay hasbeen validated pursuant to the CLIA regulations and is usedfor clinical purposes. 02/17/2024 6:30 AM EST 02/17/2024 12:40 PM EST Generic External Data Provider LAB URINE ORDERAB LES Final Result Performing Organization Address [facility] Co de Phone Number [facility] [address] [place] [phone] * (ABNORMAL) Glucose, Whole Blood (02/10/2024 12:52 PM EST) Glucose, Whole Blood 207(H) 60 - 115 mg/dL [facility] Comment:METER #: [id number] 5Testing performed in the Endocrinology Department [address], [address], [facility]. 02/10/2024 12:5 2 PM EST 02/10/2024 12:55 PM EST us Generic External Data Provider LAB BLOOD ORDERAB LES Final Result Performing Organization Address [facility] Co de Phone Number [facility] [address] [place] [phone] * (ABNORMAL) Hemoglobin A1c (12/25/2023 7:08 AM EDT) Hemoglobin A1c 8.2(H) <6.0 % [facility] Comment:Hemoglobin A1C Refer ence Range Adults: 4.8 - 6.0 % Non diabetic: < 6.0 % Goal: < 7.0 %Additional Action Suggested: > 8.0 %Note: Hemoglobin A1c results are invalid for patients with abnormal amounts of HbF. Blood transfusions may impact the HbA1c concentration in the patient sample. Estimated Average Glucose 189 mg/dL [facility] Comment:eAG = Estimated ave rage glucose which is %A1C expressed asaverage glucose, using the formula of the A5A-PurhoqaTgvxdhz Glucose study (ADAG), Diabetes Care, Vol.31,#8,Oct. 2007 Blood Venous blood specimen / Unknown 12/25/2023 7:08 AM EDT 12/25/2023 7:09 AM EDT us Emy Goldsmith MD LAB BLOOD ORDERAB LES Final Result [facility] [address] [place] [phone] * (ABNORMAL) Lipid Panel, Standard (12/25/2023 7:08 AM EDT) Triglycerides 232(H) <150 mg/dL [facility] Comment:Desirable Triglyceri de: less than 150 mg/dLBorderline High Triglyceride 150-199 mg/dLHigh Triglyceride: 200-499 mg/dLVery High Triglyceride: greater than or equal to 5OO mg/dL Cholesterol 154 <200 mg/dL [facility] Comment:Desirable Cholestero l: less than 200 mg/dLBorderline High Cholesterol: 200-239 mg/dLHigh Cholesterol: greater than 239 mg/dL LDL Cholesterol Calculated 64 <100 mg/dL [facility] Comment:Desirable LDL: less than 100 mg/dLNear Optimal/Above Optimal LDL: 110- 129 mg/dLBorderline High LDL: 130-159 mg/dLHigh LDL: 160-189 mg/dLVery High LDL: greater than or equal to 190 mg/dL HDL Cholesterol 44 >40 mg/dL [facility] Comment:Desirable HDL: great er than 40 mg/dL Note: This HDL assay may give artificially low results in patients with liver disease. Blood Venous blood specimen / Unknown 12/25/2023 7:08 AM EDT 12/25/2023 7:09 AM EDT Emy Goldsmith MD LAB BLOOD ORDERAB LES Final Result Performing Organization Address City/[facility]/ZIP Co de Phone Number [facility] [address] [place] [phone] [phone] * (ABNORMAL) Albumin, Random Urine W/Creatinine (12/25/2023 7:05 AM EDT) Creatinine, Urine 50.21 mg/dL [facility] Microalbumin Urine 78.0 mg/L [facility] Microalbum Creatinine Ratio Ur 155.3(H) <30 ug/mg cr [facility] Comment:Albumin/Creatinine R atio Reference Ranges: Normal: < 30 ug/mg creatinine Microalbuminuria: 30 - 300 ug/mg creatinineClinical Albuminuria: > 300 ug/mg creatinine Urine (Urine, Random) 12/25/2023 7:05 AM EDT 12/25/2023 7:49 AM EDT Emy Goldsmith MD LAB URINE ORDERAB LES Final Result Performing Organization Address [facility]/ZIP Co de Phone Number [facility] [address] [place] [phone] * HPV mRNA E6/E7 w/Reflex to HPV Genotypes 16, 18/45 (05/27/2023 10:50 AM EDT) HPV nRNA E6/E7 Not Detected Not Detected [facility] Comment:Methodology: Transcr iption-Mediated AmplificationThis assay detects E6/E7 viral messenger RNA (mRNA) from 14high-risk HPV types (16,18,31,33,35,39,45,51,52,56,58,59,66,68).Cervical sources are required for HPV testing.If a vaginal source from a patient who has had atotal hysterectomy with removal of cervix wassubmitted, please contact the testing laboratoryfor alternative testing options.For additional information, please refer [email or web address](This link if provided for information/educational purposes only.)THIS TEST WAS PERFORMED AT:[employer] [address] [address]RYQYXDOREEN CAMARENA MD HPV mRNA E6/E7 TNP [facility] HPV 16 RNA TNP [facility] HPV 18/45 RNA TNP [facility] 05/27/2023 10:5 0 AM EDT 05/28/2023 11:50 AM EDT Alden Cai CNM LAB CYTOLOGY ORDERABLES F inal Result [facility] [address] [place] [phone] * Pap Smear (05/27/2023 10:50 AM EDT) Swab Cervix uteri structure / Unknown 05/27/2023 10:50 AM EDT 05/28/2023 11:50 AM EDT Narrative [facility] - 06/09/2023 5:49 PM EDT ----- ------- Name: Jennifer Palmer ?Age/Sex: 62/F ? : 1960 Unit#: [id number] ?? Attend Dr: ALDEN CAI CNM ?Re05/27/23 ?Status: DEP REF ? Location: [facility] ? Disch: ? ----- ------- SPEC : [id number] ? RECD: 05/28/23-1150 ? STATUS: ??SOUT ? REQ NUM: [id number] ? PRANAY: 05/27/23-1050 ? SUBM DR: ALDEN CAI CNM ? ENTERED: ??05/28/23-7075 ?SP TYPE: Pap Smr ?OTHR : ? ORDERED: ??Pap Smear ? Interpretation ?? Satisfactory for evaluation. ?? Negative for intraepithelial lesion or malignancy. ?? Atrophic. ? HPV mRNA E6/E7: ?NOT DETECTED ? This assay detects E6/E7 viral messenger RNA (mRNA) from 14 high-risk HPV types (16, 18, ?? 31, 33, 35, 39, 45, 51, 52, 56, 58, 59, 66, 68) ? HPV testing performed by [facility], [place], [place]. ??See reference laboratory ?? portion of the EMR for entire report. ?Clinical Information LMP: Postmenopausal Previous PAP test: Unknown date/findings ? Material Received ?? ThinPrep-Vaginal/Cervical ----- ------- Signed (signature on file) Esther Ness Nenita 06/09/23 1749 ? ----- ------- ? END OF REPORT ? us Alden Cai [facility] CYTOLOGY ORDERABLES F inal Result [facility] [address] [place] [phone] * Hm Colonoscopy (05/09/2023 6:56 PM EST) us Historical Provider HEALTH MAINTENANCE Final Result * BI Mammogram Screening Tomosynthesis Bilateral (11/21/2022 3:35 PM EDT) Anatomical Region Laterality Modality Breast Bilateral Mammography 11/21/2022 3:35 PM EDT Narrative 12/11/2022 1:01 PM EDT ? [facility] ? [address] ?[place], [place] [address] ? Mammography Report ? Signed ? Patient: Palmer,Jennifer ?MR#: [id number] ?? 0 ? : 1960 ?Acct:[id number] ? Age/Sex: 62 / F ?ADM Date: 11/21/22 ? Loc: HO.MAMMO ? Attending Dr: Monroe Pulido-C ? Ordering Physician: Monroe Clement-C ?Resu ?? lts: 1Negative ? Date of Service: 11/21/22 ?Follow Up: 1 Year From Orig ?? inal Mammogram ? Procedure(s): MM tomosynthesis screening BI ?? Accession Number(s): [id number] ? cc: Emy Askew MD; Vergel Lexa,Monroe PORT TRAFFIC MANAGER-C ? EXAMINATION: ?? MM SCREENING DIGITAL BREAST TOMOSYNTHESIS, BILATERAL ? CLINICAL INFORMATION: ? Screening. Asymptomatic. ? COMPARISON: ?? Mammography: This study is compared with prior exams dating back to ?? 2019. ? TECHNIQUE: ?? Digital breast tomosynthesis is performed in both the craniocaudal and ?? mediolateral oblique views along with computer-aided detection (CAD). ?? Synthesized 2D images are generated from the tomosynthesis. ? FINDINGS: ?? There are scattered areas of fibroglandular density (ACR BI-RADS breast ?? composition Category b). ? There are no significant masses, abnormal calcifications, or other ?? abnormalities. ? MM/MM tomosynthesis screening BI ?? IMPRESSION: ?? No mammographic evidence of malignancy. ? ASSESSMENT: ? BI-RADS BI-RADS 1 - Negative ? RECOMMENDATION: ?? Routine annual mammography screening. ? 1 year F/U ? This examination should not preclude the clinical evaluation of a ?? suspicious palpable abnormality. ? This patient's information was entered into a reminder system with a ?? target due date for their next mammogram. ? Dictated By: ?Giovanna Christopher MD ? Signed By: ?<Electronically signed by Giovanna Christopher MD in OV> ? 10/12/24 1258 ? DD/ 1535 ? TD/TT: ? Clerk Of Superior Court: ? Procedure Note Aniket, Image - 12/11/2022 [facility] [address] [place] [address] Mammography Report Signed Patient: Axel Palmer#: [id number] 0 : 9Acct:[id number] Age/Sex: 62 / FADM Date: 11/21/22 Loc: HO.MAMMO Attending Dr: Monroe Barboza Ordering Physician: Monroe Clement lts: 1Negative Date of Service: 11/21/22Follow Up: 1 Year From Orig inal Mammogram Procedure(s): MM tomosynthesis screening BI Accession Number(s): [id number] cc: Emy Askew MD; Monroe Clement EXAMINATION: MM SCREENING DIGITAL BREAST TOMOSYNTHESIS, BILATERAL CLINICAL INFORMATION: Screening. Asymptomatic. COMPARISON: Mammography: This study is compared with prior exams dating back to 2019. TECHNIQUE: Digital breast tomosynthesis is performed in both the craniocaudal and mediolateral oblique views along with computer-aided detection (CAD). Synthesized 2D images are generated from the tomosynthesis. FINDINGS: There are scattered areas of fibroglandular density (ACR BI-RADS breast composition Category b). There are no significant masses, abnormal calcifications, or other abnormalities. MM/MM tomosynthesis screening BI IMPRESSION: No mammographic evidence of malignancy. ASSESSMENT: BI-RADS BI-RADS 1 - Negative RECOMMENDATION: Routine annual mammography screening. 1 year F/U This examination should not preclude the clinical evaluation of a suspicious palpable abnormality. This patient's information was entered into a reminder system with a target due date for their next mammogram. Dictated By: Giovanna Christopher MD Signed By: <Electronically signed by Giovanna Christopher MD in OV> 12/11/22 1258 DD/ 1535 TD/TT: Clerk Of Superior Court: us Monroe Ordaz PORT TRAFFIC MANAGER IMG BI PROCEDURES Fin al Result * Hepatitis C Antibody Reflex (10/04/2022 9:42 AM EDT) Hepatitis C Antibody Nonreactive Nonreactive [facility] Comment:Antibodies to HCV no t detected; does not exclude early acuteHCV infection. 10/04/2022 9:42 AM EDT 10/04/2022 9:43 AM EDT us Emy Goldsmith MD LAB BLOOD ORDERAB LES Final Result [facility] [address] [place], [place] [phone] from Last 3 Months or Most Recently Relevant to Health Maintenance Insurance [facility]LO DENTAL-[employer] MEDICAID STAND ADULT Care Teams Mission Manager Relationship Specialty Start Date End Date Emy Askew MD [address] [place] [address] PCP - General Internal Medicine 07/25/22
== END 2024-03-27 10:40 | disposition home or self-care (01) ==
LOC: HO.HOSX 10:39
PROVIDERS: PCP Student in an Organized Health Care Education/Training Program; Visit Provider Physical Medicine & Rehabilitation
DX: M53.3 Sacrococcygeal disorders, not elsewhere classified (principal); M16.12 Unilateral primary osteoarthritis, left hip; M54.16 Radiculopathy, lumbar region
CPT/HCPCS: 72200; 73502; 99202

== ENCOUNTER 2024-03-27 10:39 | Outpatient (AMB) | payer OTHER, SELFPAY ==
[2024-03-27 10:43] VITALS: BMI 27.1
--- NOTE | 2024-03-27 10:43 | A.OFFVIS_ITS ---
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 States pain started about 1-2 yrs ago and would come and go however as of a few months ago, her pain has worsen. She is not able to lay on her left side, pain is worse when she sits and walks for a prolong time. Denies past P.T or injections. Referred by Dr Emy Goldsmith from [facility] walk in clinic. Patient also mentioned she is interested in discussing B/L total knee replacement. She has seen Dr. Hernandez in the past. Blankbook Stitching Machine Operator Required: Yes Blankbook Stitching Machine Operator Name: [id number] Allergies codeine [Codeine] Allergy (Mild, Verified 03/27/24 10:48) BURNING IN CHEST, chest pain sulfamethoxazole [From Bactrim] Allergy (Mild, Verified 03/27/24 10:48) ITCH,RASH Medication List - Last Reconciled 03/27/24 by Aleksandra Culp MD aspirin 81 mg PO DAILY atorvastatin 20 mg PO BEDTIME blood glucose control high,low (FreeStyle Control solution) Twice a month blood sugar diagnostic (FreeStyle Lite Strips) 4 times a day 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 meter (FreeStyle Lite Meter kit) As directed calcium carbonate 600 mg PO QAM carvedilol 25 mg PO BID cevimeline 1 cap PO QAM cholecalciferol (vitamin D3) 50 mcg PO DAILY clonazepam 0.5 mg PO DAILY PRN clonidine HCl 0.1 mg PO BID dapagliflozin propanediol (Farxiga) 10 mg PO DAILY diltiazem HCl ER 360 mg PO DAILY docusate sodium (DOK) 100 mg PO DAILY duloxetine 60 mg PO BEDTIME folic acid 1 mg PO DAILY furosemide 20 mg PO DAILY gabapentin 300 mg PO BID hydrocortisone 2.5% (Proctosol HC) 1 appl MI BEDTIME PRN lancets (TRUEplus Lancets) 4 times a day leflunomide 20 mg PO DAILY loratadine 10 mg PO DAILY PRN losartan 100 mg PO DAILY melatonin 10 mg PO BEDTIME PRN naproxen 500 mg PO BID PRN semaglutide (Ozempic) 1 mg (0.75 mL) subcut QWEEK sennosides (senna) 17.2 mg PO DAILY PRN HPI Comments Details: New patient visit for her left side lower back pain. States pain started about 1-2 yrs ago and would come and go however as of a few months ago, her pain has worsen. She is not able to lay on her left side, pain is worse when she sits and walks for a prolong time. Denies past P.T or injections. Has gone to ER 11/2023. Follows Rheumatology in [place], diagnosis of rheumatoid arthritis and Sjogren's syndrome. Lumbar x-rays 11/2023 showed spondylosis. No MRI. Left sided pain and burning all the way to left foot. Denies numbness. No foot drop. Denies incontinence but reports urinary urgency. Chronic constipation. [facility] Medical History (Updated 03/27/24 @ 11:04 by Aleksandra Culp MD) Hyperparathyroidism DM2 (diabetes mellitus, type 2) Vitamin D deficiency 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 rheumatoid arthritis MCFP (current) use of insulin SOY (obstructive sleep apnea) COPD (chronic obstructive pulmonary disease) Sicca syndrome Constipation Alopecia Sjogrens syndrome Osteoarthritis Rheumatoid arthritis Fibromyalgia Back pain Difficulty swallowing GERD (gastroesophageal reflux disease) Depression Asthma Elevated cholesterol HTN (hypertension) Surgical History History of laryngoscopy Hx of hemorrhoidectomy History of bladder suspension procedure Hx of dilation and curettage Hx of tubal ligation History of repair of left rotator cuff Hx of colonoscopy History of esophagogastroduodenoscopy (EGD) Family History Father Cancer Mother Heart disease Diabetes Social History Household Members: Children and Other Household Members Other:: daughter, grandkids Are you a primary social worker palliative care to a significant other at home: No Do you presently have visiting nurse or other home services: No Alcohol intake: never Patient Tobacco Use Status: Never used Tobacco e-Cigarette/Vaping Use: Never Used Second Hand Smoke Exposure: No 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al status: disabled 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 Patient was appropriately conversant and oriented. Good historian. MSK: No specific abnormalities found on inspection of the spine and all extremities. Diffusely tender including SI joint and GT. Lumbar ROM was full. Bilateral hip, knee and ankle ROM WNL. No ligamentous laxity or crepitance. No increased effusion. Straight-leg raising test negative. FABERE test positive bilateral. Strength is 5/5 in all muscle groups tested. No increased tone noted. Neurological: Neurologic examination of the upper and lower extremities was nonfocal with intact sensation, muscle stretch reflexes and without focal motor deficits . Hernandez?s negative bilaterally. Babinski was down going bilaterally. Clonus was negative. Gait is non-antalgic without loss of balance. Results Reviewed Results Reviewed: I independently reviewed the results of the following: Lumbar spine x-rays shows spondylosis. I reviewed records from the following: ER Rheumatology Assessment & Plan Assessment & Plan (1) Left lumbar radiculitis: Code(s): M54.16 - Radiculopathy, lumbar region Category: Medical (2) Sacroiliac joint dysfunction of left side: Code(s): M53.3 - Sacrococcygeal disorders, not elsewhere classified Category: Medical Plan Chronic lower back pain, radiating more to the left side, with history of RA and Sjogren's syndrome. Lumbar x-rays showed spondylosis. Would like to get SI x- ray to rule out sacroiliitis, and hip x-ray to rule out degenerative change. Sending patient for physical therapy to work on SI joint and hip joint mobility and lumbar strengthening. On follow-up, if not improved, we will consider further imaging. Assessment and plan discussed with patient, and patient was agreeable. All questions were answered thoroughly. Follow up with me 6 weeks. Aleksandra Culp MD, AISSATOU Board Certified, [place] Board of [employer] Medicine and Rehabilitation (ABPMR) Board Certified, [place] Board of Electrodiagnostic Medicine (ABEM) Orders: Orders PT Evaluation and Treatment Today M53.3 - Sacrococcygeal disorders, not else where classified, M54.16 - Radiculopathy, lumbar region XR hip LT min 2V Today M16.12 - Unilateral primary osteoarthritis, left hip XR sacroiliac joint 1-2V Today M53.3 - Sacrococcygeal disorders, not elsewhere classified Coding Level of Care Code New Pt Level 4 (78164) Diagnoses Left lumbar radiculitis M54.16 Sacroiliac joint dysfunction of left side M53.3
== END 2024-03-27 13:05 | disposition home or self-care (01) ==
PROVIDERS: PCP Student in an Organized Health Care Education/Training Program; Visit Provider Physical Medicine & Rehabilitation
DX: M54.16 Radiculopathy, lumbar region (principal); M53.3 Sacrococcygeal disorders, not elsewhere classified
CPT/HCPCS: 99203

== ENCOUNTER → 2024-03-27 11:12 | Outpatient (BNV) | payer OTHER, SELFPAY | PROVIDERS: PCP Student in an Organized Health Care Education/Training Program; Visit Provider Radiology Diagnostic Radiology | DX: M16.12 Unilateral primary osteoarthritis, left hip (principal); M53.3 Sacrococcygeal disorders, not elsewhere classified | CPT/HCPCS: 72200; 73502 ==

== ENCOUNTER 2024-05-07 13:40 | Outpatient (AMB) | payer OTHER, SELFPAY ==
--- NOTE | 2024-05-07 13:42 | A.OFFVIS_ITS ---
Vital Signs 05/07/24 14:02 Height 5 ft 2 in Weight 148 lb BMI 27.1 Intake Visit Reasons: OV- B/L knee OA - Discuss TKA Intake Note: Jennifer is a 63 year old female who presents today for a follow up of her bilateral knee OA. She was last seen in 2022 where it was recommended that she have a left knee replacement. Patient did not book surgery at that time. Allergies codeine [Codeine] Allergy (Mild, Verified 03/27/24 10:48) BURNING IN CHEST, chest pain sulfamethoxazole [From Bactrim] Allergy (Mild, Verified 03/27/24 10:48) ITCH,RASH HPI HPI OV- B/L knee OA - Discuss TKA: Details: Jennifer is a 63 year old female who presents today for a follow up of her bilateral knee OA. She was last seen in 2022 where it was recommended that she have a left knee replacement. Patient did not book surgery at that time. She continues to have pain in both knees. She walks with a limp. She is still nervous about surgery. Injections have benefitted her in the past. She continues to have right ankle peroneal tendon pain. 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 SOY (obstructive sleep apnea) COPD (chronic obstructive pulmonary disease) Sicca syndrome Constipation Alopecia Sjogrens syndrome Osteoarthritis Rheumatoid arthritis Fibromyalgia Back pain Difficulty swallowing GERD (gastroesophageal reflux disease) Depression Asthma Elevated cholesterol HTN (hypertension) Surgical History History of laryngoscopy Hx of hemorrhoidectomy History of bladder suspension procedure Hx of dilation and curettage Hx of tubal ligation History of repair of left rotator cuff Hx of colonoscopy History of esophagogastroduodenoscopy (EGD) Family History Father Cancer Mother Heart disease Diabetes Social History Household Members: Children and Other Household Members Other:: daughter, grandkids Are you a primary healthcare management consultant to a significant other at home: No Do you presently have visiting nurse or other home services: No Alcohol intake: never Patient Tobacco Use Status: Never used Tobacco e-Cigarette/Vaping Use: Never Used Second Hand Smoke Exposure: No 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al status: disabled 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 Physical Exam Vital Signs: BMI result Body Mass Index 27.1 Const General: no acute distress, alert and awake Orientation/consciousness: patient oriented x3 HEENT Head: Yes normocephalic and Yes atraumatic Eyes EOM: EOMs intact bilaterally Resp Effort & Inspection: normal respiratory effort and able to speak in complete sentences Cardio Jugular venous distension: no JVD Skin General skin exam: turgor normal Rashes: no rashes Neuro General: patient oriented x3 Extrem Other: Bilateral Knees: Antalgic gait TTP medial compartment 5-130 degrees ROM Right Ankle: Bulbous swelling in distal/retrofibular region Pain on resisted ankle eversion TTP along course of peroneal tendons Skin c/d/i 2+ DP Psych Appearance: grossly normal Affect: normal affect Attitude: cooperative Office Procedures Joint Inj/Aspir; Non-Pain Clin Joint Injection/Drain Details: Injected 1 mL of Decadron and 3 mL 1% lidocaine and 3 mL of 0.25% Marcaine. Site was prepped using aseptic technique. Patient tolerated the procedure well. Shoulders, Hips, Knees, Knee Large Joint Injection : Bilateral Knee Coding Procedure code (CPT) selection complete Assessment & Plan Assessment & Plan (1) Bilateral primary osteoarthritis of knee: Code(s): M17.0 - Bilateral primary osteoarthritis of knee Category: Medical Plan: Bilateral knee arthritis and right peroneal tendonitis that is chronic. She still does not want TKA although she has severe OA and is limping daily. After discussion we injected bilateral knees. I still think who would benefit from arthroplasty but she is not ready. She may return for injections i no less than 3 mo or sooner if she wishes to discuss surgery Coding Level of Care Code Est Pt Level 3 (88980) Diagnoses Bilateral primary osteoarthritis of knee M17.0 CPT Codes Shoulders, Hips, Knees, - Knee Large Joint Injection : Bilateral Knee ([id number])
[2024-05-07 14:02] VITALS: BMI 27.1
--- OUTSIDE RECORDS SUMMARY | 2024-05-07 16:37 | XMS_ITS | Encounter Summary ---
Author Organization [employer] Address [address] [place] [address] Care Team Providers Care Supervisor Color Paste Mixing Name Role Phone Emy Askew MD Primary Care Pro vider Encounter Details Date Type Department Care Team (Late st Contact Info) Description 08/07/2023 Orders Only [facility] [address] [place] [address] Valeria Armas FNP [address] [place] [address] Social History Tobacco Use Types Packs/Day Years [...] Care Team (Late st Contact Info) Description 05/26/2024 1:00 PM EDT Office Visit [facility] [address] [place] [phone] Kathryn Yusuf CNM [address] [place] [address] documented as of this encounter Visit Diagnoses Not on filedocumented in this encounter Additional Health Concerns Assessment Noted Time PHQ-9 Depression Total Score: 16 023 10:16 AM EDT documented as of this encounter Care Teams Supervisor Color Paste Mixing Relationship Specialty Start Date End Date Emy Askew MD [address] [place] [address] PCP - General Internal Medicine 07/25/22 documented as of this encounter
--- OUTSIDE RECORDS SUMMARY | 2024-05-07 16:37 | XMS_ITS | Encounter Summary ---
Author Organization [employer] Address [address] [place] [address] [place] [address] Care Team Providers Care Lime Mixer Name Role Phone Emy Askew MD Primary Care Pro vider Reason for Visit * Reason Onset Date Comments Triage 07/31/2022 Encounter Details Date Type Department Care Team ([facility] st Contact Info) Description 07/31/2022 Telephone [facility] [address] [place] [address] Emy Askew MD [address] [place] [address] Triage Social History Tobacco Use Types Packs/Day [...] The caller accepted this outcome Patient speaks setswana. documented in this encounter Plan of Treatment Upcoming Encounters Date Type Department Care Team (Late st Contact Info) Description 05/26/2024 1:00 PM EDT Office Visit [facility] [address] [place] [address] Kathryn Yusuf CNM [address] [place], [place] [phone] documented as of this encounter Visit Diagnoses Not on filedocumented in this encounter Care Teams Lime Mixer Relationship Specialty Start Date End Date Emy Askew MD [address] [place] [address] PCP - General Internal Medicine 07/25/22 documented as of this encounter
--- OUTSIDE RECORDS SUMMARY | 2024-05-07 16:37 | XMS_ITS | Encounter Summary ---
Author Organization [employer] Address [address] [place] [address] Care Team Providers Care Highway Landscape Architect Name Role Phone Emy Askew MD Primary Care Pro vider Encounter Details Date Type Department Care Team ([facility] st Contact Info) Description 02/23/2024 Orders Only [facility] [address] [place] [address] Provider, MD Waylon Social History Tobacco Use [...] Description 05/26/2024 1:00 PM EDT Office Visit [facility] [address] [place] [address] Kathryn Yusuf CNM [address] [place] [address] documented as of this encounter Procedures Procedure Name Priority Date/Time Associated Diagnosis Comments HM COLONOSCOPY Routine 05/09/2023 6:56 PM EST documented in this encounter Results * Hm Colonoscopy (05/09/2023 6:56 PM EST) Historical Provider HEALTH MAINTENANCE Final Result documented in this encounter Visit Diagnoses Not on filedocumented in this encounter Additional Health Concerns Assessment Noted Time PHQ-9 Depression Total Score: 10 024 2:37 PM EDT documented as of this encounter Care Teams Highway Landscape Architect Relationship Specialty Start Date End Date Emy Askew MD [address] [place] [address] PCP - General Internal Medicine 07/25/22 documented as of this encounter
--- OUTSIDE RECORDS SUMMARY | 2024-05-07 16:37 | XMS_ITS | Encounter Summary ---
Author Organization [employer] Address [address] [place] [address] Care Team Providers Care Test Cell Technician Name Role Phone Kenya Sol SURFACE SUPERVISOR Primary Care Provider [phone] Emy Askew MD Primary Care Pro vider Encounter Details Date Type Department Care Team (Late st Contact Info) Description 05/28/2022 Orders Only [facility] [address] [place], [place] [phone] Candy Miller LPN Social History Tobacco Use [...] Department Care Team (Late Contact Info) Description 05/26/2024 1:00 PM EDT Office Visit [facility] [address] [place], [place] [phone] Kathryn Yusuf CNM [address] [place], [place] [phone] documented as of this encounter Visit Diagnoses Not on filedocumented in this encounter Care Teams Test Cell Technician Relationship Specialty Start Date End Date Kenya Sol FNP [address] [place] [address] PCP - General Family Medicine 01/22/22 07/24/22 Emy Askew MD [address] [place] [address] PCP - General Internal Medicine 07/25/22 documented as of this encounter
--- OUTSIDE RECORDS SUMMARY | 2024-05-07 16:37 | XMS_ITS | Encounter Summary ---
Author Organization [employer] [facility] Address [address] [place] [address] 7[address] [place] [address] Care Team Providers Care Geriatric Nursing Assistant Name Role Phone [facility] Primary Care Provider [phone] Emy Askew MD Primary Care Pro vider Reason for Visit * Reason Onset Date Comments Appointment Request 06/07/2022 Encounter Details Date Type Department Care Team ([facility] st Contact Info) Description 06/07/[address] [facility] [address] [place] [address] [facility] [address] [place] [address] Appointment Request Social History Tobacco Use Types [...] with new provider. Please contact pt at [phone] documented in this encounter Plan of Treatment Upcoming Encounters Date Type Department Care Team (Late st Contact Info) Description 05/26/2024 1:00 PM EDT Office Visit [facility] [address] [place] [phone] Kathryn Yusuf CNM [address] [place] [address] documented as of this encounter Visit Diagnoses Not on filedocumented in this encounter Care Teams Geriatric Nursing Assistant Relationship Specialty Start Date End Date Kenya Sol FNP [address] [place] [address] PCP - General Family Medicine 01/22/22 07/24/22 Emy Askew MD [address] [place] [address] PCP - General Internal Medicine 07/25/22 documented as of this encounter
--- OUTSIDE RECORDS SUMMARY | 2024-05-07 16:37 | XMS_ITS | Clinical Summary ---
Author Organization 175 [facility] Address [address] [place] [address] Phone Care Team Providers Care Telecasting Engineer Name Role Phone Berkley Bird MD Primary Care Provider [phone] Allergies Active Allergy Reactions Criticality Noted Date Comments Sulfamethoxazole-Trimethoprim 2024 Codeine 04/06/2024 Sulfa (Sulfonamide Antibiotics) 02/01 Trimethoprim 04/06/2024 Medications CLONAZEPAM ORAL Take by mouth. Active hydroxychloroqui ne sulfate (PLAQUENIL ORAL) Take by mouth. Active propoxyphene HCl (PROPOXYPHENE ORAL) Take by mouth. Active lisinopriL (PRINIVIL,ZESTRI L) 10 mg tablet Take 10 mg by [...] duloxetine HCl (CYMBALTA ORAL) Take by mouth. Active fluticasone propion/salmeter ol (ADVAIR DISKUS INHL) Inhale into the lungs. Active terbinafine (LamISIL) 250 mg tablet Take 1 tablet (250 mg total) by mouth 1 (one) time each day. 30 tablet 2 04/06/2024 5 Active Active Problems Problem Noted Date Diagnosed Date HTN (hypertension) 12/22/2012 Obesity 12/22/2012 HLD (hyperlipidemia) 12/22/2012 Depression 12/22/2012 Rheumatoid arthritis 12/22/2012 Asthma 12/22/2012 Encounters Date Type Department Care Team Description 04/06/2024 1:30 PM EST Office Visit Orthopedic Surgery [facility] [address] [address] Magen Velasco DPM Controlled type 2 diabetes with neuropathy (CMS/HCC) (Primary Dx); Pain in toes of both feet; Arthritis of both feet; Dermatophytosis of nail from Last 3 Months Social History Tobacco Use Types Packs/Day Years Used Date Smoking Tobacco: Never Assessed Comments Unknown Sex and Gender Information Value Date Recorded Sex Assigned at Not on file Legal Sex Female 12:52 AM EST Gender Identity Not on file Sexual Orientation Not on file Last Filed Vital Signs Vital Sign Reading Time Taken Comments Blood Pressure - - Pulse - - Temperature - - Respiratory Rate - - Oxygen Saturation - - Inhaled Oxygen Concentration - - Weight 65.8 kg (145 lb) 04/06/2024 1:36 PM EST Height 157.5 cm (5' 2 ) 04/06/2024 1:36 PM EST Body Mass Index 26.52 04/06/2024 1:36 PM EST Plan of Treatment Upcoming Encounters Date Type Department Care Team (Late st Contact Info) Description 06/08/2024 2:00 PM EDT Office Visit Orthopedic Surgery [facility] [address] [address] Magen Velasco DPM [address] [address] Health Maintenance Due Date Last Done Comments Breast Cancer Screening 1958 Diabetes: Annual Foot Exam 1968 Diabetes: Annual Retina Eye Exam 1968 COVID-19 Vaccine ( season) 2023 03/20/2023, 09/24/2022, 10/04/2021, Additional history exists Influenza Vaccine (#1) 2023 , 12/15/2020, 12/01/2019, Additional history exists Colorectal Cancer Screening: Colonoscopy 01/22/2024 Falls Risk Assessment 01/22/2024 Hepatitis C Screening 01/22/2024 Medicare Annual Wellness Visit 01/22/2024 Osteoporosis Screening (Bone Density Screening) 01/22/2024 Social Influencers of Health Screening 01/22/2024 Diabetes: Annual Urine Albumin-Creatinine Ratio (uACR) 04/06/2024 Diabetes: Blood Sugar Control Test (HGBA1C) 06/24/2024 12/25/2023 Depression Screening 11/11/2024 11/12/2023 Diabetes: Annual GFR (Glomerular Filtration Rate) 04/06/2025 04/06/2024, 02/17/2024 Hypertension/CHF/CAD Annual BMP Blood Test 04/06/2025 04/06/2024, 02/17/2024 Cervical Cancer Screening: Pap Smear 05/26/2026 05/27/2023 DTaP,Tdap,and Td Vaccines (4 - Td or Tdap) 11/16/2026 11/16/2016, 10/17/2011, 03/11/2006 Cholesterol Screening (Lipid Panel) 12/24/2028 12/25/2023 Hepatitis B Vaccines Completed 11/25/2007, 05/08/2007, 04/10/2007 Zoster Vaccines Completed 11/23/2020, 09/20/2020 Pneumococcal Vaccine: 50+ Years Completed 09/24/2022, 12/18/2017, 03/11/2006 Pneumococcal Vaccine: Pediatrics (0 to 5 Years) and At-Risk Patients (6 to 64 Years) Completed 09/24/2022, 12/18/2017, 03/11/2006 RSV Immunization Patients 60+ Years Old Completed 06/01/2023, 06/01/2023 HIB Vaccines Aged Out [...] patient's age to complete this topic Meningococcal B Vacine Aged Out No lo nger eligible based on patient's age to complete this topic RSV Immunization Patients Under 20 months Aged Out No longer eligible based on patient's age to complete this topic Varicella Vaccines Aged Out No longer eligible based on patient's age to complete this topic Procedures Procedure Name Priority Date/Time Associated Diagnosis Comments COMPREHENSIVE METABOLIC PANEL Routine 04/06/2024 2:00 PM EST Dermatophytosis of nail from Last 3 Months Results * (ABNORMAL) Comprehensive metabolic panel (04/06/2024 2:00 PM EST) Sodium 138 133 - 145 mmol/L LAB CHEMISTRY METHOD 04/06/2024 6:42 PM [facility] Potassium 3.5 3.5 - 5.5 mmol/L LAB CHEMISTRY METHOD 04/06/2024 6:42 PM [facility] Chloride 102 96 - 110 mmol/L LAB CHEMISTRY METHOD 04/06/2024 6:42 PM [facility] CO2 31 21 - 32 mmol/L LAB CHEMISTRY METHOD 04/06/2024 6:42 PM [facility] Anion Gap 5 3 - 11 LAB CHEMISTRY METHOD 04/06/2024 6:42 PM [facility] Glucose 183(H) 70 - 100 mg/dL LAB CHEMISTRY METHOD 04/06/2024 6:42 PM [facility] BUN 17 5 - 25 mg/dL LAB CHEMISTRY METHOD 04/06/2024 6:42 PM [facility] Creatinine 0.94 0.50 - 1.10 mg/dL LAB CHEMISTRY METHOD 04/06/2024 6:42 PM [facility] eGFR 67 >=60 mL/min/1. 73m2 LAB CHEMISTRY METHOD 04/06/2024 6:42 PM [facility] Comment:Calculation based on the??Chronic Kidney Disease Epidemiology Collaboration (CKD-EPI) equation refit??without adjustment for race. BUN/Creatinine Ratio 18.1 LAB CHEMISTRY METHOD 04/06/2024 6:42 PM [facility] Calcium 10.3 8.5 - 10.5 mg/dL LAB CHEMISTRY METHOD 04/06/2024 6:42 PM [facility] AST (SGOT) 15 10 - 42 unit/L LAB CHEMISTRY METHOD 04/06/2024 6:42 PM [facility] ALT (SGPT) 22 10 - 60 unit/L LAB CHEMISTRY METHOD 04/06/2024 6:42 PM [facility] Alkaline Phosphatase 140(H) 42 - 121 unit/L LAB CHEMISTRY METHOD 04/06/2024 6:42 PM [facility] Total Protein 7.6 6.0 - 8.0 g/dL LAB CHEMISTRY METHOD 04/06/2024 6:42 PM [facility] Albumin 3.6 3.2 - 5.0 g/dL LAB CHEMISTRY METHOD 04/06/2024 6:42 PM [facility] Total Bilirubin 0.3 0.0 - 1.4 mg/dL LAB CHEMISTRY METHOD 04/06/2024 6:42 PM [facility] Blood Venous blood specimen / Unknown Venipuncture / Unknown 04/06/2024 2:00 PM EST 04/06/2024 2:00 PM EST Magen Velasco DP LAB BLOOD ORDERABLES Final Result [facility] [address] [place] [address], from Last [address] [place] [phone] [facility] MEDICARE Member Subscriber Plan / Payer (Ef fective 2023-Present) Name:Jennifer Palmer Relation to Subscriber:Self Name:Jennifer Palmer Payer ID:[id number] Group ID:[id number] Type:Not on file Address: [address] [place] [address] Care Teams Telecasting Engineer Relationship Specialty Start Date End Date Berkley Bird MD [address] [address] PCP - General Internal Medicine 02/20/24
--- OUTSIDE RECORDS SUMMARY | 2024-05-07 16:37 | XMS_ITS | Data Portability ---
Author Organization [place] [facility], Allergy Address [address] [place] [phone] Assessment No assessment recorded. Plan of Treatment Reminders Order Date Submit Date Provider Last Modified By Organization Details Last Modified Time Details Appointments None recorded. Lab None recorded. Referral None recorded. Procedures None recorded. Surgeries None recorded. Imaging [place], modified barium swallow study [address] [place] [address] Diagnosit Imaging Dept, [address] [place] [address], [address], 5 11:51:40 Medication Orders None recorded. Patient TargetsNo targets recorded. Patient InstructionsNo instructions recorded. Reason for Referral None Reported. Problems Name Problem SNOMED Code Status Onset Date Resolution Date Notes Provider Name and Address Organization Details Recorded Time Dysphagia 11051838 Active 2018 Other dysphagia; Note: Date Diagnosed: 05/13/2018 9:47 AM (R13.19) Not Available [facility] 4 02:27:43 [place] ce of salivary secretion 24555663 Active 2018 Xerostomia ; Note: Date Diagnosed: 05/13/2018 9:47 AM (K11.7) Not Available [facility] 4 02:27:54 Dysphonia 19480529 Active 2017 Hoarseness ; Note: Date Diagnosed: 02/17/2018 9:52 AM (R49.0) Not Available [facility] 4 02:27:44 Chronic sialadeni tis 145916143 Active 2016 Chronic sialoadeni tis; Note: Date Diagnosed: 07/04/2016 2:17 PM (K11.23) Not Available [facility] 4 02:27:48 Sj? ? 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 Active 2013 Diseases of the salivary glands: Hypertroph y; CMS Risk: moderate risk CMS Treatment: establishe d problem (to examiner): stable or improved N ote: Date Diagnosed: 12/30/2013 2:35 PM (527.1) Not Available [facility] 4 02:27:37 Bilateral hearing loss 15783097 Active 2018 Other specified hearing loss, bilateral; Note: Date Diagnosed: 08/12/2018 10:01 AM (H91.8X3) Not Available [facility] 4 02:27:41 Oropharyn geal dysphagia 25315377 Active 2024 UMESH DIAZ MD [address] [place] [address], [phone] , [facility] 5 13:35:47 Problem Notes None recorded. Procedures Surgical History Date Name Laterality Status Provider Name and Address Organization Details Recorded Time 03/13/2024 FFL_RE completed UMESH DIAZ MD [address] [place] [address], [phone], [facility] 03/13/2024 13:36:13 Imaging Results None recorded. Procedure Notes None recorded. Medical Equipment None Reported. Allergies Allergen ID Allergen Name Allergen Category Reaction Reaction Severity Criticality Documentation Date Start Date Code Code System Note Provider Name and Address Organization Details Recorded Time 63068 Bactrim medicatio n other Not available Not available 07/16/2023 02267 9 RxNorm React ion: unkno wn, unspe cifie d;; Not Available [facility] 4 00:55:51 36832 codeine sulfate medicatio n other Not available Not available 07/16/2023 47639 RxNorm React ion: unkno wn, unspe cifie d;; Not Available [facility] 4 00:55:56 Medications Name Sig Start Date Stop Date Status Note LastModified by Organization Details LastModified Time medbox status USE DIRECTED active Not Available Not Available No t Available furosemid e 40 mg tablet TAKE 1 TABLET BY MOUTH EVERY MORNING active Not Available Not Available No t Available Augmentin 875 mg-125 mg tablet 2017 active Medicati on ID: 375872 D uration Value: 5 Prescri bed By [...] nebulizat ion 2018 active Medicati on ID: 413142 D uration Value: 5 Brand Name: albutero [...] mg tablet 2018 active Medicati on ID: 389601 D uration Value: 30 Brand Name: lisinopr [...] mg tablet 2018 active Medicati on ID: 582933 D uration Value: 30 Brand Name: buspiron e Send Method: E-Prescr ibed Sub s Allowed: subs OK Speci al Instruct ion: TAKE 1 TABLET BY MOUTH THREE TIMES DAILY NEEDED ANXIETY Medicati onGeneri cName: buspiron e Not Available Not Available Not Available Tiazac 120 mg capsule,e xtended release 02/04 completed Medicati on ID: 75453 Re ason: () Brand Name: Tiazac S [...] elayed release 2018 active Medicati on ID: 091862 D uration Value: 30 Brand Name: omeprazo le Send Method: E-Prescr ibed Sub s Allowed: subs OK Speci al Instruct ion: TAKE 1 CAPSULE TWICE DAILY IN THE MORNING AND IN THE EVENING 1 HORA AN KAELN DE LAS COMIDAS Medicati onGeneri cName: omeprazo le Not Available Not Available Not Available Aspirin Childrens 81 mg chewable tablet 2013 active Medicati on ID: 44313 Br and Name: Aspirin Children s Send [...] mg tablet 2018 active Medicati on ID: 307805 D uration Value: 30 Brand Name: levon post ne Send Method: E-Prescr ibed Sub s Allowed: subs OK Speci al Instruct ion: TAKE 2 TABLETS BY MOUTH ONCE DAILY IN THE MORNING Medicati onGeneri cName: levon jenkinsqui ne Not Available Not Available Not Available ibuprofen 600 mg tablet 2018 active Medicati on ID: 971752 D uration Value: 30 Brand Name: ibuprofe [...] 24 hr 2018 active Medicati on ID: 492900 D uration Value: 30 Brand Name: metformi n Send Method: E-Prescr ibed Sub s Allowed: subs OK Speci al Instruct ion: TAKE 1 TABLET BY MOUTH TWICE DAILY IN THE MORNING AND IN THE EVENING W ITH FOOD Med icationG enericNa me: metformi n Not Available Not Available Not Available Ambien 5 mg tablet 2013 active Medicati on ID: 94956 Br and Name: Ambien S end Method: [...] mg capsule 2013 active Medicati on ID: 47234 Br and Name: Kade Rivera end Method: [...] inhalatio n 2018 active Medicati on ID: 603261 D uration Value: 30 Brand Name: Breo [...] subcutane ous 2018 active Medicati on ID: 159234 D uration Value: 35 Brand Name: Humulin [...] Updated DateTime 03/13/2024 157.48 cm 26 kg/m2 10587.[address] [facility] 03/13/2024 13:27:58 Social History None recorded. Functional Status None recorded. Mental Status None recorded. Family History Nothing Reported. Medical History No medical history recorded. Gynecological HistoryNo gynecological history recorded. Obstetrics History GPAL:G 0 P 0 0 0 0 Past Encounters Encounter ID Performer Location Encounter Start Date Encounter Closed Date Diagnosis/Indication Diagnosis SNOMED-CT Code Diagnosis ICD10 Code Diagnosis Note [id number] UMESH DIAZ MD [facility] [address] [place] [address] 03/13/2024 13:18:07 03/13/2024 13:52:50 Oropharyngeal dysphagia 79162027 R13.12 Exam and laryngosco py were normal. I recommend a swallow study (MBS) to reassess her swallow. F/u after. If normal I would suggest GI referral especially given her Sjogrens. Sj? ? ?gren's syndrome 67686817 M35.00 Encouraged hydration. Will consider GI referral [...] Mendez Member ID Guarantor Name 03/13/2024 1 [facility]LY [facility] - DOS ON OR AFTER 2022 - MEDICARE ADVANTAGE [place] & [place] (MEDICARE REPLACEMENT/AD VANTAGE - PPO) Jennifer Gu [id number] Jennifer Gu Notes Date Note Type Note [...] eyes and dry mouth. UMESH DIAZ MD [address], [address], [place] [facility] 03/13/2024 13:43:36 OBGyn Episode No OBEpisode recorded.
--- OUTSIDE RECORDS SUMMARY | 2024-05-07 16:37 | XMS_ITS | Continuity of Care Document ---
Author Organization [employer] [facility], Me in - Formerly [facility], [facility] Address [address] [place] [address] Care Team Providers Care Billet Heater Operator Name Role Phone HIM CCA OTHER [facility] OTHER [phone] Assessment Encounter Date Assessment Date Assessment LastModified by Organization Details LastModified Time 04/13/2024 04/13/2024 As noted, we were called to see this patient regarding concerns of URI symptoms. Evaluation in the field was performed by my client representative colleague, as noted above, I provided real-time direction and supervision for this visit. The evaluation revealed patient has been having a body aches, runny nose, dry cough, and congestion for 1 week. She has been taking tylenol. She states today she has been feeling much better. Denies any chest pain, dyspnea, abdominal pain. COVID/flu are negative. Patient is tolerating PO and ambulating without difficulty. Presentation is consistent with URI symptoms. Recommend follow up with PCP if symptoms persist for CXR to r/o pneumonia. Impression: Viral URI Plan: Supportive care Primary care, consider CXR Disposition: We discussed the diagnostic uncertainty of home visits and the risk associated with this. In this case, the patient and I felt this to be an acceptable and reasonable amount of risk given the benefit of avoiding an ED visit. We discussed the need to seek care urgently/emerge ntly in the setting of any new or worsening serious symptoms, particularly dyspnea, vomiting, hemoptysis, abdominal or chest pain. [email or web address] Not available 04/13/2024 15:34:34 Plan of Treatment Reminders Order Date Submit Date Provider Last Modified By Organization Details Last Modified Time Details Appointments None recorded. Lab rapid SARS CoV 2 Ag, QL IA, respiratory specimen 2024 025 [email or web address] [facility], [address] [place] [address], [phone], 5 14:42:18 rapid flu (A+B) 2024 Nathaly [email or web address] [facility], [address] [place] [address], [place], [phone], 5 14:42:21 Referral None recorded. Procedures None recorded. Surgeries None recorded. Imaging None recorded. Medication Orders None recorded. Patient TargetsNo targets recorded. Patient InstructionsNo instructions recorded. Reason for Referral None Reported. Results Created Date Observation Date Name Description Value Unit Range Abnormal Flag Note LastModifiedBy Organization Detail LastModifiedTime Result Notes None recorded. Medical Equipment None Reported. Allergies Allergen ID Allergen Name Allergen Category Reaction Reaction Severity Criticality Documentation Date Start Date Code Code System Note Provider Name and Address Organization Details Recorded Time 20728 codeine medicatio n Not available Not available Not available 04/13/2024 2670 [facility] Not Available [facility] 5 09:12:08 80899 Bactrim medicatio n Not available Not available Not available 04/13/2024 72819 9 RxNorm Not Available [facility] - production 5 09:12:08 94166 sulfameth oxazole medicatio n Not available Not available Not available 04/13/2024 68308 RxNorm Not Available [facility] 5 09:12:08 22952 trimethop rim medicatio n Not available Not available Not available 04/13/2024 17305 RxNorm Not Available [facility] 5 09:12:08 Medications Name Sig Start Date Stop Date Status Note LastModified by Organization Details LastModified Time medbox status USE DIRECTED active Not Available Not Available No t Available furosemide 40 mg tablet TAKE 1 TABLET BY MOUTH EVERY MORNING active Not Available Not Available No t Available terconazole 0.4 % vaginal cream INSERT 1 APPLICATORF UL VAGINALLY AT BEDTIME FOR 7 NIGHT active Not Available Not Available Not Available carvedilol 25 mg tablet TAKE 1 TABLET BY MOUTH TWICE DAILY IN THE MORNING AND IN THE EVENING active Not Available Not Available No t Available atorvastatin 20 mg tablet TAKE 1 TABLET BY MOUTH AT BEDTIME active Not Available Not Available No t Available trazodone 50 mg tablet TAKE 1 TABLET BY MOUTH AT BEDTIME NEEDED FOR SLEEP active Not Available Not Available No t Available fluconazole 150 mg tablet TAKE 1 TABLET BY MOUTH ONCE active Not Available Not Available N ot Available senna 8.6 mg tablet TAKE 2 TABLETS BY MOUTH EVERY DAY NEEDED FOR CONSTIPATIO N active Not Available Not Available No t Available clonazepam 0.5 mg tablet TAKE 1 TABLET BY MOUTH ONCE DAILY NEEDED active Not Available Not Available No t Available gabapentin 400 mg capsule TAKE 1 CAPSULE BY MOUTH TWICE A DAY active Not Available Not Available No t Available penicillin V potassium 500 mg tablet TAKE 1 TABLET BY MOUTH THREE TIMES DAILY FOR 10 DAYS active Not Available Not Available Not Available diltiazem ER 360 mg capsule,24 hr,extended release TAKE 1 CAPSULE BY MOUTH AT BEDTIME active Not Available Not Available No t Available amlodipine 5 mg tablet TAKE 1 TABLET BY MOUTH TWICE DAILY IN THE MORNING AND IN THE EVENING active Not Available Not Available No t Available ciprofloxaci n 500 mg tablet TAKE 1 TABLET BY MOUTH TWICE DAILY FOR 5 DAYS active Not Available Not Available No t Available aspirin 81 mg tablet,delay ed release TAKE 1 TABLET BY MOUTH EVERY MORNING active Not Available Not Available No t Available leflunomide 20 mg tablet TAKE 1 TABLET BY MOUTH EVERY DAY active Not Available Not Available No t Available tramadol 50 mg tablet TAKE 1 TABLET BY MOUTH EVERY 8 HOURS NEEDED FOR SEVERE PAIN active Not Available Not Available Not Available acetaminophe n 500 mg tablet TAKE 2 TABLETS BY MOUTH EVERY 6 HOURS NEEDED FOR MODERATE PAIN, FOR HEADACHE, OR FEVER active Not Available Not Available No t Available lidocaine-pr ilocaine 2.5 %-2.5 % topical cream APPLY TOPICALLY TO THE AFFECTED AREA(S) EVERY DAY active Not Available Not Available No t Available terbinafine HCl 250 mg tablet active Not Available Not Available Not Available calcium 600 mg (as calcium carbonate [...] SPRAY IN EACH NOSTRIL NEEDED FOR NASAL CONGESTION active Not Available Not Available N ot Available cevimeline 30 mg capsule TAKE 1 CAPSULE (30 MG) BY MOUTH 3 TIMES DAILY. active Not Available Not Available No t Available lidocaine 5 % topical patch APPLY 1 PATCH TOPICALLY TO SKIN [...] CAPSULE BY MOUTH TWICE DAILY NEEDED FOR CONSTIPATIO N active Not Available Not Available No t Available gabapentin 300 mg capsule TAKE 1 CAPSULE BY MOUTH TWICE A DAY active Not Available Not Available No t Available folic acid 1 mg tablet TAKE 1 TABLET BY MOUTH EVERY DAY active Not Available Not Available No t Available bisacodyl 5 mg tablet,delay ed release TAKE 4 TABLETS BY MOUTH ONCE DIRECTED BY DOCTOR active Not Available Not Available No t Available furosemide 20 mg tablet TAKE 1 TABLET BY MOUTH EVERY MORNING active Not Available Not Available No t Available polyethylene glycol 3350 17 gram/dose oral powder MIX BOTTLE WITH WATER AND DRINK DIRECTED BY DOCTOR THE DAY BEFORE COLONOSCOPY active Not Available Not Available Not Available estradiol 0.01% (0.1 mg/gram) vaginal cream INSERT 1 GRAM VAGINALLY EVERY DAY FOR 14 DAYS. THEN USE 2 TIMES PER WEEK AFTER active Not Available Not Available No t Available lisinopril 40 mg tablet TAKE 1 TABLET BY MOUTH EVERY MORNING active Not Available Not Available No t Available losartan 100 mg tablet TAKE 1 TABLET BY MOUTH EVERY MORNING active Not Available Not Available No t Available loratadine 10 mg tablet TAKE 1 TABLET BY MOUTH EVERY DAY NEEDED FOR ALLERGIES active Not Available Not Available No t Available Ventolin HFA 90 mcg/actuatio n aerosol inhaler INHALE 2 PUFFS BY MOUTH EVERY 6 HOURS NEEDED FOR WHEEZING active Not Available Not Available No t Available Alcohol Prep Pads USE DIRECTED FIVE TIMES DAILY active Not Available Not Available No t Available Spiriva with HandiHaler 18 mcg and inhalation capsules USE 1 CAPSULE FOR INHALATION ONCE A DAY DO NOT SWALLOW CAPSULE active Not Available Not Available No t Available nitrofuranto in monohydrate/ macrocrystal s 100 mg capsule TAKE 1 CAPSULE BY MOUTH TWICE DAILY FOR 7 DAYS AND DRINK ROSEMARIE WATER active Not Available Not Available No t Available duloxetine 60 mg capsule,krishna yed release TAKE 1 CAPSULE BY MOUTH AT BEDTIME active Not Available Not Available No t Available Vandazole 0.75 % (37.5 mg/5 gram) vaginal gel INSERT 1 APPLICATORF UL VAGINALLY AT BEDTIME FOR 5 NIGHTS DIRECTED active Not Available Not Available No t Available diclofenac 1 % topical gel APPLY 2-3 GRAMS TO AFFECTED AREA TWICE A DAY NEEDED FOR PAIN active Not Available Not Available No t Available melatonin 5 mg tablet TAKE 2 TABLETS BY MOUTH EVERY DAY AT BEDTIME NEEDED active Not Available Not Available No t Available BD Ultra-Fine Jammie Pen Needle 32 gauge x /32 USE THREE TO FOUR TIMES DAILY DIRECTED active Not Available Not Available Not Available Vitamin D3 50 mcg (2,000 unit) capsule TAKE 1 CAPSULE BY MOUTH EVERY MORNING active Not Available Not Available No t Available TRUEplus Lancets 33 gauge USE DIRECTED TO TEST BLOOD SUGAR FOUR TIMES DAILY active Not Available Not Available Not Available Farxiga [...] Available Not Available No t Available Trulicity 3 mg/0.5 mL subcutaneous pen injector INJECT ONE PEN (= 3MG) SUBCUTANEOU SLY ONCE A WEEK DIRECTED active Not Available Not Available No t Available Ozempic 1 mg/dose (4 mg/3 mL) subcutaneous pen injector Inject 1 MG SUBCUTANEOU SLY EVERY 7 DAYS IN THE ABDOMEN, THIGHS OR UPPER ARM. ROTATE INJECTION SITES. active Not Available Not Available No t Available Ozempic 0.25 mg or 0.5 mg (2 mg/3 mL) subcutaneous pen injector INJECT 0.5 MG SUBCUTANEOU SLY EVERY 7 DAYS IN THE ABDOMEN, THIGHS, OR UPPER ARM, ROTATE INJECTION SITES. active Not Available Not Available No t Available Vitals Date Recorded Respiratory rate Oxygen saturation Oxygen saturation in Arterial blood by Pulse oximetry Body temperature Heart rate Systolic blood pressure Diastolic blood pressure Provider Name and Address Organization Details Last Updated DateTime 5 16 /min 96 % 96 % 98.8 [degF] 81 /min 134 mm[Hg] 76 mm[Hg] Not Available [employer] - production 5 14:39:46 Social History None recorded. Functional Status None recorded. Mental Status None recorded. Family History Nothing Reported. Medical History No medical history recorded. Gynecological HistoryNo gynecological history recorded. Obstetrics History GPAL:G 0 P 0 0 0 0 Past Encounters Encounter ID Performer Location Encounter Start Date Encounter Closed Date Diagnosis/Indication Diagnosis SNOMED-CT Code Diagnosis ICD10 Code Diagnosis Note [id number] Sebastian Vanessa MD [address] [phone] 04/13/2024 14:39:43 04/13/2024 21:52:34 Viral upper respiratory tract infection 683259976 J06.9 Health Concerns Section Related Observation LastModified by Organization Detai ls LastModified Time None Recorded Concern Status LastModified by Organization Details LastModified Time None Recorded Payers Encounter Date Sequence Insurance Name Policy Number Policy Mendez Covered Member ID Mendez Member ID Guarantor Name 04/13/2024 1 [facility] - DOS ON OR AFTER 2022 - DUAL ELIGIBLE - ASSISTED OPTIONS AND ONE CARE (MEDICARE REPLACEMENT/ADV ANTAGE - HMO) Jennifer Gu [id number] Jennifer Gu Notes Date Note Type Note Provider Name and Address Organization Details Recorded Time 04/13/2024 text/html HPI: Patient with body aches and cough. No recorded fever but with chills ...................... ...................... ...................... ...................... ...................... ...................... ......... [facility] Nurse Triage Notes (Cheri Brown - RN): Chief Complaints: Common cold symptoms, Cough, Fever/chills PMH: Asthma, Diabetes Mellitus Type 2, Hypertension, Hyperlipidemia, Obesity, Gastroesophageal Reflux Disease (GERD) PMH Reviewed at 04/13/2024 - 09:12 Allergies Reviewed at 04/13/2024 - 09:12 Comments: HPI reviewed Box Storage Worker Organization Information for Emanuel Paige Legal Name: [employer] Address: [address] [place] [id number], Automotive Teacher: Vinny Delgadillo MD [facility] No.: [id number] Box Storage Worker POC Test Results from Emanuel Paige - ALS Rapid influenza antigen (14:32:34) Flu: - Rapid COVID antigen (14:32:35) COVID: - ...................... ...................... ...................... ...................... ...................... ...................... ......... Box Storage Worker Note From Emanuel Paige: Dispatch to the call address for the female with flu like symptoms. Patient states she started with a mild cough, runny nose and body aches/chills approx 1 week ago. She states today she is starting to feel better. She has been taking Tylenol with good effect. She denies chest pain, difficulty breathing/shortness of breath, fevers, abdominal pain, back pain, urinary symptoms. She states she? s been able to eat and drink at her baseline. Patient was found opening door, CAOX4, in no obvious distress, breathing non-labored, airway open and patent. Mucus membranes pink and moist, skin PWD with good turgor, lung sounds CTA, A febrile, ABD soft nontender/distended, ? CVA tenderness, Pupils PERRL, ? Edema/swelling. Rapid Covid test negative, rapid flu test positive negative. [facility] consulted. Red flags discussed. All times are approximate. ...................... ...................... ...................... ...................... ...................... ...................... ......... [facility] Consulted: Sebastian Vanessa ...................... ...................... ...................... ...................... ...................... ...................... ......... Disposition: Fulfilled Sebastian Vanessa MD [address] [place] [address],[address], [place], [address], [employer] [facility] 04/13/2024 15:34:43 OBGyn Episode No OBEpisode recorded.
--- OUTSIDE RECORDS SUMMARY | 2024-05-07 16:37 | XMS_ITS | Encounter Summary ---
Author Organization [employer] Address [address] [place] [address] [place] [address] Care Team Providers Care Park Keeper Name Role Phone Emy Askew MD Primary Care Pro vider Reason for Visit * Reason Onset Date Comments pre-op paperwork 10/18/2022 Encounter Details Date Type Department Care Team ([facility] st Contact Info) Description 10/18/2022 Telephone [facility] MEDICINE [address] [place] [address] Emy Askew MD [address] [place] [address] pre-op paperwork Social History Tobacco Use Types [...] methotrexate and leflunomide??( 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 Hold am of surgery lasix,amytriptiline,lisinopril ??.HoldASA 5 days prior procedure and avoid NSAIDS 7 days prior procedure. Thanks documented in this encounter Plan of Treatment Upcoming Encounters Date Type Department Care Team (Late st Contact Info) Description 05/26/2024 1:00 PM EDT Office Visit [facility] MEDICINE [address] [place], [place] [phone] Kathryn Yusuf CNM [address] [place] [address] documented as of this encounter Visit Diagnoses Not on filedocumented in this encounter Additional Health Concerns Assessment Noted Time PHQ-9 Depression Total Score: 16 023 10:16 AM EDT documented as of this encounter Care Teams Park Keeper Relationship Specialty Start Date End Date Emy Askew MD [address] [place] [address] PCP - General Internal Medicine 07/25/22 documented as of this encounter
--- OUTSIDE RECORDS SUMMARY | 2024-05-07 16:37 | XMS_ITS | Encounter Summary ---
Author Organization [employer] Address [address] [place] [address] 7 [place] [address] Care Team Providers Care Junior Accountant Name Role Phone Emy Askew MD Primary Care Pro vider Reason for Visit * Reason Comments Med Refill Encounter Details Date Type Department Care Team ([facility] Contact Info) Description 02/14/2024 Refill [facility] MEDICINE [address] [place] [address] Emy Askew MD [address] [place] [address] Social History Tobacco Use Types Packs/Day Years [...] Description 05/26/2024 1:00 PM EDT Office Visit [facility] MEDICINE [address] [place], [place] [phone] Kathryn Yusuf CNM [address] [place] [address] documented as of this encounter Visit Diagnoses Not on filedocumented in this encounter Additional Health Concerns Assessment Noted Time PHQ-9 Depression Total Score: 10 024 2:37 PM EDT documented as of this encounter Care Teams Junior Accountant Relationship Specialty Start Date End Date Emy Askew MD [address] [place], [place] [phone] PCP - General Internal Medicine 07/25/22 documented as of this encounter
--- OUTSIDE RECORDS SUMMARY | 2024-05-07 16:38 | XMS_ITS | Encounter Summary ---
Author Organization [employer] Address [address] [facility] [address] [place] [address] Care Team Providers Care Risk And Insurance Consultant Name Role Phone Emy Askew MD Primary Care Pro vider Reason for Visit * Reason Onset Date Comments June recall 04/08/2024 Encounter Details Date Type Department Care Team ([facility] st Contact Info) Description 04/08/2024 Telephone [facility] [address] [place], [place] [phone] Jessica Valenzuela [place] June recall Social History Tobacco Use Types Packs/Day Years [...] encounter Miscellaneous Notes * Telephone Encounter - Jessica Valenzuela MA - 04/08/2024 2:28 PM EST T/C- Inspector Ball Points Left Voice Mail to return call to schedule an appointment. Recall letter sent. Appointment: Office Visit Note: Chronic conditions Month: June With: Chemo Please schedule appointment if Patient calls Back. documented in this encounter Plan of Treatment Upcoming Encounters Date Type Department Care Team (Late st Contact Info) Description 05/26/2024 1:00 PM EDT Office Visit [facility] [address] [place] [address] Kathryn Yusuf CNM [address] [place] [address] documented as of this encounter Visit Diagnoses Not on filedocumented in this encounter Additional Health Concerns Assessment Noted Time PHQ-9 Depression Total Score: 10 024 2:37 PM EDT documented as of this encounter Care Teams Risk And Insurance Consultant Relationship Specialty Start Date End Date Emy Askew MD [address] [place] [address] PCP - General Internal Medicine 07/25/22 documented as of this encounter
--- OUTSIDE RECORDS SUMMARY | 2024-05-07 16:38 | XMS_ITS | Encounter Summary ---
Author Organization [employer] [facility] Address [address] [place] [address] 7t [place] [address] Care Team Providers Care Assistant Product Manager Name Role Phone [facility] Primary Care Provider [phone] Emy Askew MD Primary Care Pro vider Reason for Visit * Reason Onset Date Comments VISION 03/13/2022 Encounter Details Date Type Department Care Team ([facility] st Contact Info) Description 03/13/2022 Telephone [facility] MEDICINE [address] [place] [address] [facility] [address] [place] [address] VISION Social History Tobacco Use Types Packs/Day [...] center regarding an eye exam. Please contact [phone] documented in this encounter Plan of Treatment Upcoming Encounters Date Type Department Care Team (Late st Contact Info) Description 05/26/2024 1:00 PM EDT Office Visit [facility] MEDICINE [address] [place], [place] [phone] Kathryn Yusuf CNM [address] [place], [place] [phone] documented as of this encounter Visit Diagnoses Diagnosis Diabetes 1.5, managed as type 2 (CMS/HCC) documented in this encounter Care Teams Assistant Product Manager Relationship Specialty Start Date End Date Kenya Sol FNP [address] [place] [address] [phone] PCP - General Family Medicine 01/22/22 07/24/22 Emy Askew MD [address] [place] [phone] PCP - General Internal Medicine 07/25/22 documented as of this encounter
--- OUTSIDE RECORDS SUMMARY | 2024-05-07 16:38 | XMS_ITS | Encounter Summary ---
Author Organization [employer] [facility] Address [address] [place] [address] 7t [place] [address] Care Team Providers Care Medical Esthetician Name Role Phone [facility] Primary Care Provider [phone] Emy Askew MD Primary Care Pro vider Reason for Visit * Reason Onset Date Comments Med Refill 05/11/2022 Encounter Details Date Type Department Care Team (Late st Contact Info) Description 05/11/2022 Telephone [facility] MEDICINE [address] [place] [address] [facility] [address] [place], [place] [phone] Med Refill Social History Tobacco Use Types [...] pt pharmacy today. * Telephone Encounter - Angelo Wakefield Mclean - 05/11/2022 10:22 AM EST Tc from pt requesting a Blood Glucose Monitoring Suppl (FreeStyle Lite) w/Device kit Pt claims that she has lost the device. Please sent to [facility] [place] [place] - [address] [place] [address] documented in this encounter Plan of Treatment Upcoming Encounters Date Type Department Care Team ([facility] st Contact Info) Description 05/26/2024 1:00 PM EDT Office Visit [facility] MEDICINE [address] [place] [phone] Kathryn Yusuf CNM [address] [place] [address] documented as of this encounter Visit Diagnoses Not on filedocumented in this encounter Care Teams Medical Esthetician Relationship Specialty Start Date End Date Kenya Sol FNP [address] [place] [phone] PCP - General Family Medicine 01/22/22 07/24/22 Emy Askew MD [address] [place] [id number] PCP - General Internal Medicine 07/25/22 documented as of this encounter
--- OUTSIDE RECORDS SUMMARY | 2024-05-07 16:38 | XMS_ITS | Clinical Summary ---
Author Organization [employer] Address [address] [place] [address] 7[address] [place] [address] Care Team Providers Care [employer] Name Role Phone Emy Askew MD Primary Care Pro vider Allergies Active Allergy Reactions Criticality Noted Date Comments Sulfamethoxazole-Trimethoprim Rash Low 2022 Codeine Unknown 02/28/2010 Sulfamethoxazole Hives,Rash Low 02/28/2010 Trimethoprim Hives 02/28/2010 Other reaction(s): rash Medications furosemide (Lasix) 20 MG tablet Take 20 mg by mouth in the morning. 023 Active DULoxetine (Cymbalta) [address] capsule [...] stripIndications: Type 2 diabetes mellitus with hyperglycemia (CMS/HCC),Type 2 diabetes mellitus without complications (CMS/HCC) TEST BLOOD SUGAR FOUR TIMES DAILY 100 strip Active sodium chloride ([place] Nasal [place]) 0.65 % nasal spray Administer 1 spray into each nostril if needed for congestion. 30 mL 2 024 2024 Active FreeStyle lancets 1 each by Other route at noon and 1 each in the evening. Test blood sugar 4 times a day. 100 each 11 024 2024 Active aspirin (Aspirin Low Dose) 81 MG EC tablet TAKE 1 TABLET BY MOUTH EVERY MORNING 90 tablet Active calcium carbonate 1500 (600 Ca) MG [...] moderate pain, headaches or fever. 30 tablet Active Farxiga 10 MG TAKE 1 TABLET BY MOUTH EVERY MORNING 30 tablet 2 Active melatonin 5 MG tablet Take 10 mg by mouth Once per day. Take 2 tabs by mouth at bedtime Active clonazePAM (KlonoPIN) 0.5 MG tablet Take 0.5 mg by mouth if needed each day. Active amLODIPine (Norvasc) 5 MG tablet Take 5 mg by mouth at noon and 5 mg in the evening. Active atorvastatin (Lipitor) 20 MG tablet Take 1 tablet (20 mg) by mouth at bedtime. 90 tablet 1 Active loratadine (Claritin) 10 MG tablet TAKE 1 TABLET BY MOUTH ONCE DAILY NEEDED FOR ALLERGIES 90 tablet 024 Active traZODone (Desyrel) 50 MG tablet Take 1 tablet (50 mg) by mouth if needed at bedtime for sleep. 90 tablet 024 Active cholecalciferol (D3 Super Strength) 50 MCG (1999 UT) capsuleIndication s:Vitamin D deficiency, unspecified Take 1 capsule (50 mcg) by mouth in the morning. 90 capsule 1 024 Active semaglutide (Ozempic, 1 MG/DOSE,) 2 MG/1.5ML solution pen-injectorIndic ations:Type 2 Diabetes Mellitus Inject 1 mg under the skin 1 (one) time per week. 3 mL 5 024 Active carvedilol (Coreg) 25 MG tabletIndications :Benign essential hypertension Take 1 tablet (25 mg) by mouth with breakfast and with evening meal. 60 tablet 2 024 2024 Active Diclofenac Sodium (Voltaren) 1 % gelIndications:Ne ck pain,Osteoarthrit is of both knees, unspecified osteoarthritis type Apply topically to affected area twice a day as needed for pain 30 g 024 Active Ventolin HFA 108 (90 Base) MCG/ACT inhaler INHALE 2 PUFFS BY MOUTH EVERY 6 HOURS NEEDED FOR WHEEZING 18 g 2 024 Active cevimeline (Evoxac) 30 MG capsule Take 1 capsule (30 mg) by mouth 3 times daily. 90 capsule 2 024 Active Alcohol Swabs (Alcohol Prep) 70 % padsIndications:T ype 2 diabetes mellitus without complication, unspecified whether senior care insulin use (CMS/HCC) USE DIRECTED FIVE TIMES DAILY 100 each 025 Active cloNIDine (Catapres) 0.2 MG tablet TAKE 1 TABLET BY MOUTH TWICE DAILY IN THE MORNING AND IN THE EVENING 60 tablet 3 025 Active BD Pen Needle Jammie U/F 32G X 4 MM miscIndications:T ype 2 diabetes mellitus without complication, with long-term current use of insulin (CMS/HCC) USE THREE TO FOUR TIMES DAILY DIRECTED 100 each 025 Active senna (Senokot) 8.6 MG tablet TAKE 2 TABLETS BY MOUTH EVERY DAY NEEDED FOR CONSTIPATION 180 tablet 025 Active losartan (Cozaar) 100 MG tablet TAKE 1 TABLET BY MOUTH EVERY MORNING 90 tablet 025 Active docusate sodium (Colace) 100 MG capsuleIndication s:Chronic constipation TAKE 1 CAPSULE BY MOUTH TWICE DAILY NEEDED FOR CONSTIPATION 180 capsule 025 Active Pentips 32G X 4 MM miscIndications:T ype 2 diabetes mellitus without complication, with long-term current use of insulin ([facility]) USE THREE OR FOUR TIMES DAILY DIRECTED 100 each 11 024 2024 Discontinued docusate sodium (Colace) 100 MG capsuleIndication s:Chronic constipation TAKE 1 CAPSULE BY MOUTH TWICE DAILY NEEDED FOR CONSTIPATION 180 capsule 1 024 2024 Discontinued senna (Senokot) 8.6 MG tablet Take 2 tablets (17.2 mg) by mouth if needed each day for constipation. 180 tablet 024 2024 Discontinued losartan (Cozaar) 100 MG tablet Take 1 tablet (100 mg) by mouth Once per day. 90 tablet 024 2024 Discontinued Active Problems Problem Noted [...] record to [facility] Again today -MM 2019 - BIRADS 1 - referred already, per [...] Plan (10/23/2022 5:48 PM EDT): -pap smear 2017 neg /no HPV result -per pt had [...] per pt--- ---- requested record to Jose Rivero -MM 2020 - BIRADS 1 - referred today -colonoscopy [...] diet and exercise,discussed healthy life style - nursing department chairperson referred already-pd to schedule apt. gave today information to pt to call for apt Assessment & Plan (10/23/2022 5:21 PM EDT): Advised pt to improve diet and exercise,discussed healthy life style - nursing department chairperson referred already-pd to schedule apt Assessment & Plan (09/24/2022 8:29 PM EDT): Advised pt to improve diet and exercise,discussed healthy life style -discussed nursing department chairperson referral - today Sialoadenitis of submandibular gland [...] referred by ENT for further eval in [place] but never went -referred again to ENT [...] referred by ENT for further eval in [place] but never went -referred again to ENT [...] w RA / Sjogren's disease, 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 Denies SI but has thoughts to be better off . - Continue care w specialist - Pt requests information to be able to change to an old age home --already received information -in process per pt Assessment & Plan (10/23/2022 5:23 PM EDT): Pt following w psychiatrist and therapist at [facility]. Denies SI but has thoughts to be better off . - Continue care w specialist - Pt requests information to be able to change to an old age home --already received information -in process per pt Assessment & Plan (09/24/2022 8:32 PM EDT): Pt following w psychiatrist and therapist at [facility]. Denies SI but has thoughts to be better off . - Continue care w specialist - Pt requests information to be able to change to an old age home -- I spoke w mental health case manager today and they will come to speak w pt to give info. Was told that there is no need to refer to CM for this. Type 2 diabetes mellitus without complication Assessment & Plan (12/06/2022 6:16 AM EDT): 09/2022 HbA1C 8.2<---8.7, CBG 248., total ch 169, trig 324( in fasting) ,HDL 36,LDL 69, Microalb neg Used to follow w executive cyber leader, but lost care. Not on metformin for [...] - to f in 1 y. 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 Not on metformin for [...] - to f in 1 y. - Road Passenger Firer: referred today Assessment & Plan (09/24/2022 8:51 PM EDT): Today HbA1C 8.7, CBG 248. Used to follow w executive cyber leader, but lost care. - DM2 labs. - Will consider increasing Trulicity at her next appt. - Pt not currently on Metformin, but used to be in the past. Will check at her next appt, and if she can tolerate it, will resume Rx. - Ophthalmology 07/2022 - to f in 1 y. - Road Passenger Firer: will refer at next visit. Varicose veins of lower extremity 07/08/2017 Assessment & Plan (10/23/2022 5:12 PM EDT): Pt w lower extremity edema trace from 1+ before , possibly from Cardiazem and venous insufficiency. - Advised to use compression stockings,--started using with noted improved LE edema -I confirmed today w her patient partner-Dr Watkins #[phone] that pt does not have CHF and [...] (12/06/2022 6:19 AM EDT): Pt following with loader operator. Pt w consistently dry mouth. From med [...] for unclear reasons. - PT following w patient partner actively w on and off chest discomfort. [...] mg in pm - PT following w patient partner -will f BP in next 3 to 4 weeks Assessment & Plan (09/24/2022 8:43 PM EDT): BP slightly elevated at 144/94 - Holter 2019 neg. -echocardiogram 2018The left ventricular systolic function is normal. The visually estimated ejection fraction is between 60-65%. -stress test 2019 : nondiagnostic EKG For ischemia. - Will monitor BP manually at next visit. - PT following w patient partner Chronic constipation 12/24/2016 Gastroesophageal reflux disease without esophagi tis 12/24/2016 Hyperlipidemia associated wi th type 2 diabetes mellitus (CMS/HCC) 12/24/2016 Migraine 12/24/2016 Resolved Problems Problem Noted [...] in 2016 here . 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 Hold am of surgery lasix,amytriptiline,lisinopril .Hold ASA 5 days prior procedure and avoid NSAIDS 7 days prior procedure. -will rec to have post op EKG as rec by her patient partner for noted prolonged QTC -will rec to [...] Encounters Date Type Department Care Team Description 05/05/2024 Refill [facility] [address], [place] [address] Emy Askew MD Chronic constipation 04/28/2024 Refill [facility] [address], [place] [address] Emy Askew MD Type 2 diabetes mellitus without complication, with long-term current use of insulin ([facility]) 04/13/2024 Telephone [facility] [address], [place] [address] Emy Askew MD Nurse Triage 04/08/2024 Telephone C MEDICINE [address], [place] [address] Jessica Valenzuela MA Nguyen recall 04/05/2024 Refill [facility] [address], [place] [address] Emy Askew MD 03/25/2024 Refill [facility] [address], [place] [address] Emy Askew MD Type 2 diabetes mellitus without complication, unspecified whether knitting machine operator automatic insulin use (CMS/[facility]) 03/20/2024 Travel 03/17/2024 Orders Only [facility] [address], [place] [address] Emy Askew MD 03/17/2024 Telephone [facility] MEDIC[facility] [address], [place] [address] Kaylen Rausch, RN Appointment Request 03/10/2024 Telephone [facility] MEDIC[facility] [address], [place] [address] Emy Askew MD 02/23/2024 Orders Only [facility] [address] [place] [address] Provider, MD Waylon 02/18/2024 Telephone [facility] [address] [place] [address] Emy Askew MD Referral 02/18/2024 Refill [facility] [address] [place] [address] Emy Askew MD 02/17/2024 Orders Only GENERIC EXTERNAL DATA DEPARTMENT Provider, Generic External Data 02/14/2024 Refill [facility] [address] [place] [address] Emy Askew MD 02/10/2024 Orders Only GENERIC EXTERNAL DATA DEPARTMENT Provider, Generic External Data from Last 3 Months Immunizations Name Administration [...] Description 05/26/2024 1:00 PM EDT Office Visit [facility] [address] [place], [place] [phone] Alden Cai, CNM [address] [place], [place] [phone] Health Maintenance Due Date Last Done Comments [...] 10/31/2024 11/01/2023 Depression Screening 11/11/2024 11/12/2023, 11/12/19 Diabetes: Urine Protein Screening 12/24/2024 12/25/2023, 10/04/2022, 12/21/2020, Additional history exists Lipid Panel 12/24/2024 12/25/2023, 03/2023, 10/04/2022, Additional history exists Alcohol/Substance Use Screening 01/12/2025 01/13/2024 Tobacco Screening 01/12/2025 01/13/2024 Eye Exam 01/07/2026 01/08/2024, 110 08/2023, 01/08/2024, Additional history exists Mammogram 03/17/2026 03/17/2024, 2 , 07/28/2021, Additional history exists DTaP/Tdap/Td Vaccines (3 - Td or Tdap) 11/16/2026 11/16/2016, 10/17/2011, 03/11/2006 Cervical Cancer Screening 05/26/2028 HPV/Cotest 05/26/2028 05/27/2023 Pap Smear 05/26/2028 05/27/2023 Hepatitis B Vaccines Completed 11/25/2007, 05/08/2007, 04/10/2007 Zoster Vaccines Completed 11/23/2020, 09/20/2020 Pneumococcal Vaccine: 50+ Years Completed 09/24/2022, 12/18/2017, 03/11/2006 Hepatitis C [...] Procedure Name Priority Date/Time Associated Diagnosis Comments XR SACROILIAC JOINTS 1-2 VIEWS Routine 03/27/2024 11:12 AM EST XR HIP 2 OR 3 VIEWS LEFT Routine 03/27/2024 11:12 AM EST BI MAMMOGRAM SCREENING TOMOSYNTHESIS BILATERAL Routine 03/17/2024 1:00 PM EST ALDOSTERONE, LC/MS/MS Routine 02/17/2024 11:20 AM EST [...] 3:30 PM EDT Periodontal disease Fractured dental church with loss of material HPV MRNA E6/E7 REFLEX TO HPV 16, 18/45 Routine 05/27/2023 10:50 AM EDT PAP SMEAR Routine 05/27/2023 10:50 AM EDT Cervical cancer screening HM COLONOSCOPY Routine 05/09/2023 6:56 PM EST HEPATITIS C ANTIBODY REFLEX Routine 10/04/2022 9:42 AM EDT PROPHYLAXIS - ADULT Routine 07/17/2022 1 1:00 AM EDT PERIODIC ORAL EVALUATION - ESTABLISHED PATIENT Routine 10/26/2021 12:00 AM EDT PANORAMIC RADIOGRAPHIC IMAGE Routine 08/18/2020 12:00 AM EDT from Last 3 Months or Most Recently Relevant to Health Maintenance Results * XR Hip 2 or 3 Views Left (03/27/2024 11:12 AM EST) Anatomical Region Laterality Modality Lower Extremities, Hip Left Radiograp hic Imaging 03/27/2024 11:1 2 AM EST Narrative 03/30/2024 10:04 AM EST ? [facility] ? [address] ?[place] [address] ?XRay Report ? Signed ? Patient: Palmer,Jennifer ?MR#: [id number] ?? 0 ? : 1960 ?Acct:[id number] ? Age/Sex: 63 / F ?ADM Date: 01/24/25 ? Loc: HO.HOSX ? Attending Dr: Aleksandra Clup MD ? Ordering Physician: Aleksandra Chu ?? Date of Service: 03/27/24 ?? Procedure(s): XR hip LT min 2V ?? Accession Number(s): [id number] ? cc: Emy Askew MD; Aleksandra Chu ? EXAMINATION: ?? XR HIP, LEFT ? CLINICAL INFORMATION: ?? M16.12 - Unilateral primary osteoarthritis, left hip ? COMPARISON: ?? None available. ? TECHNIQUE: ?? Two views of the left hip. ? FINDINGS: ?? No acute cortical disruption or malalignment. Mild sclerosis of the ?? articular surface in the left acetabulum. The joint spaces ?? well-preserved. Sclerosis at the symphysis pubis. No lytic or blastic ?? lesions. ? XR/XR hip LT min 2V ?? IMPRESSION: ?? Mild osteoarthrosis without acute fracture or dislocation, left hip. ? Electronically signed by: ??Brock Lauren MD ??03/30/2024 10:02 AM ?? EST RP ? Dictated By: ?Brock Lundy MD ? Signed By: ?<Electronically signed by Brock Maradiaga MD in OV> ? 03/30/24 1002 ? DD/ 1112 ? TD/TT: 03/27/24 1115 ? Counter Sales Representative: ? Procedure Note Aniket, Image - 03/30/2024 [facility] [address] [place] [address] [address] [place] [address] XRay Report Signed Patient: Axel Palmer#: [id number] 0 : 9Acct:[id number] Age/Sex: 63 / FADM Date: 03/27/24 Loc: [facility] Attending Dr: Aleksandra Culp MD Ordering Physician: Aleksandra Chu Date of Service: 03/27/24 Procedure(s): XR hip LT min 2V Accession Number(s): [id number] cc: Emy Askew MD; Aleksandra Chu EXAMINATION: XR HIP, LEFT CLINICAL INFORMATION: M16.12 - Unilateral primary osteoarthritis, left hip COMPARISON: None available. TECHNIQUE: Two views of the left hip. FINDINGS: No acute cortical disruption or malalignment. Mild sclerosis of the articular surface in the left acetabulum. The joint spaces well-preserved. Sclerosis at the symphysis pubis. No lytic or blastic lesions. XR/XR hip LT min 2V IMPRESSION: Mild osteoarthrosis without acute fracture or dislocation, left hip. Electronically signed by: Brock Lauren MD 03/30/2024 10:02 AM EST RP Dictated By: Brock Lundy MD Signed By: <Electronically signed by Brock Maradiaga MDin OV> 03/30/24 1002 DD/ 1112 TD/TT: 03/27/24 1115 Counter Sales Representative: [facility] External Provider IMG XR PROCEDURES Edited Result - Final * XR Sacroiliac Joints 1-2 Views (03/27/2024 11:12 AM EST) Anatomical Region Laterality Modality Sacroiliac joint, Pelvis Radiogr aphic Imaging 03/27/2024 11:1 2 AM EST Narrative 03/30/2024 10:29 AM EST ? [facility] ? [address] ?[place] [address] ?XRay Report ? Signed ? Patient: Jennifer Palmer ?MR#: [id number] ?? 0 ? : 1960 ?Acct:[id number] ? Age/Sex: 63 / F ?ADM Date: 03/27/24 ? Loc: HO.HOSX ? Attending : Aleksandra Culp MD ? Ordering Physician: Aleksandra Chu ?? Date of Service: 03/27/24 ?? Procedure(s): XR sacroiliac joint 1-2V ?? Accession Number(s): [id number] ? cc: Emy Aksew MD; Aleksandra Chu ? EXAMINATION: ?? XR SACROILIAC JOINTS ? CLINICAL INFORMATION: ?? M53.3 - Sacrococcygeal disorders, not elsewhere classified ? COMPARISON: ?? None available. ? TECHNIQUE: ?? 3 views of the sacroiliac joints ? FINDINGS: ?? No acute cortical disruption. No lytic or blastic lesions. No widening ?? of the joint spaces. ? XR/XR sacroiliac joint 1-2V ?? IMPRESSION: ?? No acute fractures. No gross sacroiliitis by x-ray. ? Electronically signed by: ??Brock Lauren MD ??03/30/2024 10:27 AM ?? EST RP ? Dictated By: ?Brock Lundy MD ? Signed By: ?<Electronically signed by Brock Maradiaga MD in OV> ? 03/30/24 1027 ? DD/ 1112 ? TD/TT: 03/27/24 1115 ? Counter Sales Representative: ? Procedure Note Donotsilviainterpreter, Image - 03/30/2024 [facility] [address] [place] [address] [address] [place] [address] XRay Report Signed Patient: Axel Palmer#: [id number] 0 : 9Acct:[id number] Age/Sex: 63 / FADM Date: 03/27/24 Loc: HO.HOSX Attending Dr: Aleksandra Culp MD Ordering Physician: Aleksandra Chu Date of Service: 03/27/24 Procedure(s): XR sacroiliac joint 1-2V Accession Number(s): [id number] cc: Emy Askew MD; Aleksandra Chu EXAMINATION: XR SACROILIAC JOINTS CLINICAL INFORMATION: M53.3 - Sacrococcygeal disorders, not elsewhere classified COMPARISON: None available. TECHNIQUE: 3 views of the sacroiliac joints FINDINGS: No acute cortical disruption. No lytic or blastic lesions. No widening of the joint spaces. XR/XR sacroiliac joint 1-2V IMPRESSION: No acute fractures. No gross sacroiliitis by x-ray. Electronically signed by: Brock Lauren MD 03/30/2024 10:27 AM EST Dictated By: Brock Lundy MD Signed By: <Electronically signed by Brock Maradiaga MDin OV> 03/30/24 1027 DD/ 1112 TD/TT: 03/27/24 1115 Counter Sales Representative: [facility] External Provider IMG XR PROCEDURES Final Result * BI Mammogram Screening Tomosynthesis Bilateral (03/17/2024 1:00 PM EST) Anatomical Region Laterality Modality Breast Bilateral Mammography 03/17/2024 1:00 PM EST Narrative 03/28/2024 10:52 AM EST ? [facility] ? [address] ?[place], [place] [address] ? Mammography Report ? Signed ? Patient: Jennifer Palmer ?MR#: [id number] ?? 0 ? : 1960 ?Acct:[id number] ? Age/Sex: 63 / F ?ADM Date: 03/17/24 ? Loc: HO.MAMMO ? Attending Dr: Emy Goldsmith MD ? Ordering Physician: Emy Askew MD ?Re ?? sults: 1Negative ? Date of Service: 03/17/24 ?Follow Up: 1 Year From Orig ?? inal Mammogram ? Procedure(s): MM tomosynthesis screening BI ?? Accession Number(s): [id number] ? cc: Emy Askew MD ? EXAMINATION: ?? MM SCREENING DIGITAL BREAST TOMOSYNTHESIS, BILATERAL ? CLINICAL INFORMATION: ? Screening. Asymptomatic. ? COMPARISON: ?? Mammography: Comparison is made with available priors ? TECHNIQUE: ?? Digital breast mammography with tomosynthesis is performed in both the ?? craniocaudal and mediolateral oblique views along with computer-aided ?? detection (CAD). ? FINDINGS: ?? There are scattered areas [...] due date for their next mammogram. ? Electronically signed by: ??Sadia Monae DO ??03/28/2024 10:49 AM EST ?? RP ? Dictated By: ?Sadia Monae DO ? Signed By: ?<Electronically signed by Sadia Monae, DO in OV> ? 03/28/24 1049 ? DD/ 1300 ? TD/TT: 03/17/24 1320 ? Counter Sales Representative: ? Procedure Note Aniket, Image - 03/28/2024 [facility] [address] [place] [address] [place] [address] Mammography Report Signed Patient: Axel Palmer#: [id number] 0 : 9Acct:[id number] Age/Sex: 63 / FADM Date: 03/17/24 Loc: [facility] Attending Dr: Emy Goldsmith MD Ordering Physician: Emy Askew sults: 1Negative Date of Service: 03/17/24Follow Up: 1 Year From Orig inal Mammogram Procedure(s): MM tomosynthesis screening BI Accession Number(s): [id number] cc: Emy Askew MD EXAMINATION: MM SCREENING DIGITAL BREAST TOMOSYNTHESIS, BILATERAL CLINICAL INFORMATION: Screening. Asymptomatic. COMPARISON: Mammography: Comparison is made with available priors TECHNIQUE: Digital breast mammography with tomosynthesis is performed in both the craniocaudal and mediolateral oblique views along with computer-aided detection (CAD). FINDINGS: There are scattered areas of fibroglandular [...] target due date for their next mammogram. Electronically signed by: Sadia Monae DO 03/28/2024 10:49 AM EST Dictated By: Sadia Monae DO Signed By: <Electronically signed by Sadia Monae DO in OV> 03/28/24 1049 DD/ 1300 TD/TT: 03/17/24 1320 Counter Sales Representative: Emy Goldsmith MD IMG BI PROCEDURES Final Result * Aldosterone, LC/MS/MS (02/17/2024 11:20 AM EST) Aldosterone, LC/MS/MS 9 see note ng/dL [facility] Comment:Unable to flag abnor mal result(s), please refer to reference range(s) below:Adult Reference Ranges for Aldosterone, LC/MS/MS: Upright 8:00 - 10:00 am < or = 28 ng/dL Upright 4:00 - 6:00 pm < or = 21 ng/dL Supine 8:00 - 10:00 am 3 - 16 ng/dLThis test was developed and its analytical performancecharacteristics have been determined by [employer] [place], [place]. It hasnot been cleared or approved by the U.S. Food and DrugAdministration. This assay has been validated pursuantto the CLIA regulations and is used for clinicalpurposes.THIS TEST WAS PERFORMED AT:[employer] [id number] [place] [id number] SORENSEN MD,PHD 02/17/2024 11:2 0 AM EST 02/17/2024 11:24 AM EST Generic External Data Provider LAB BLOOD ORDERAB LES Final Result Performing Organization Address [facility]/ZIP Co de Phone Number [facility] [address] [place] [phone] * Plasma Renin Activity, LC/MS/MS (02/17/2024 11:20 AM EST) Plasma Renin Activity, LC/MS/MS 0.47 0.25 - 5.82 ng/mL/h [facility] Comment:This test was develo ped and its analytical performancecharacteristics have been determined by [employer] [place], [place]. It hasnot been cleared or approved by the U.S. Food and DrugAdministration. This assay has been validated pursuantto the CLIA regulations and is used for clinicalpurposes.THIS TEST WAS PERFORMED AT:[employer] [place] [id number] SORENSEN MD,PHD 02/17/2024 11:2 0 AM EST 02/17/2024 11:24 AM EST Generic External Data Provider LAB BLOOD ORDERAB LES Final Result Performing Organization Address [facility] Co de Phone Number [facility] [address] [place] [phone] * Phosphate (As Phosphorus) (02/17/2024 11:20 AM EST) Phosphorus 3.0 2.7 - 4.5 mg/dL [facility] 02/17/2024 11:2 0 AM EST 02/17/2024 11:24 AM EST Generic External Data Provider LAB BLOOD ORDERAB LES Final Result Performing Organization Address [facility] de Phone Number [facility] [address] [place] [phone] * (ABNORMAL) PTH, Intact Without Calcium (02/17/2024 11:20 AM EST) Parathyroid Hormone, Intact 96.5(H) 8.7 - 77.1 pg/mL [facility] 02/17/2024 11:2 0 AM EST 02/17/2024 11:24 AM EST Generic External Data Provider LAB BLOOD ORDERAB LES Final Result Performing Organization Address [facility] Phone Number [facility] [address] [place] [phone] * Magnesium (02/17/2024 11:20 AM EST) Magnesium 2.2 1.6 - 2.6 mg/dL [facility] 02/17/2024 11:2 0 AM EST 02/17/2024 11:24 AM EST Generic External Data Provider LAB BLOOD ORDERAB LES Final Result Performing Organization Address [facility] Phone Number [facility] [address] [place] [phone] * Calcium, Ionized (02/17/2024 11:20 AM EST) Calcium, Ionized 5.1 4.7 - 5.5 mg/dL [facility] Comment:THIS TEST WAS PERFOR MED AT:[employer] [place] [phone] CAMARENA MD 02/17/2024 11:2 0 AM EST 02/17/2024 11:24 AM EST us Generic External Data Provider LAB BLOOD ORDERAB LES Final Result Performing Organization Address [facility] Co de Phone Number [facility] [address] [place] [address] [phone] * Albumin (02/17/2024 11:20 AM EST) Albumin Level 3.8 3.5 - 5.0 g/dL [facility] 02/17/2024 11:2 0 AM EST 02/17/2024 11:24 AM EST us Generic External Data Provider LAB BLOOD ORDERAB LES Final Result Performing Organization Address [facility] Phone Number [facility] [address] [place] [phone] * (ABNORMAL) Basic Metabolic Panel (02/17/2024 11:20 AM EST) Sodium 142 135 - 145 mmol/L [facility] Potassium 3.4 3.3 - 5.1 mmol/L [facility] Chloride 107 96 - 108 mmol/L [facility] Carbon Dioxide 26 22 - 29 mmol/L [facility] Anion Gap 12 12 - 20 [facility] Urea Nitrogen (BUN) 13 9 - 16 mg/dL [facility] Creatinine, Serum 0.82 0.5 - 1.4 mg/dL [facility] Estimated Glomerular Filt Rate >60 [facility] Comment:Chronic Kidney Disea se: Estimated GFR < 60 mL/min/1.98a2[place] Kidney Disease: Estimated GFR < 15 mL/min/1.73m2 Glucose 232(H) 60 - 115 mg/dL [facility] Calcium 9.2 8.4 - 10.2 mg/dL [facility] 02/17/2024 11:2 0 AM EST 02/17/2024 11:24 AM EST Generic External Data Provider LAB BLOOD ORDERAB LES Final Result Performing Organization Address [facility] Co de Phone Number [facility] [address] [place] [address] [phone] * (ABNORMAL) Sodium, 24-Hour Urine with Creatinine (02/17/2024 6:30 AM EST) Sodium, 24 Hour Urine 123.5 40 - 220 mmol/Day [facility] Creatinine, 24 Hour Urine 0.6(L) 1.0 - 2.0 G/Day [facility] Creatinine, Urine 37.00 [facility] Urine Total Volume 24 Hour 1,625 mL [facility] 02/17/2024 6:30 AM EST 02/17/2024 12:40 PM EST Narrative [facility] - 02/17/2024 1:48 PM EST [id number] Generic External Data Provider LAB URINE ORDERAB LES Final Result Performing Organization Address [facility] Co de Phone Number [facility] [address] [place] [address] [phone] * (ABNORMAL) CREATININE, 24 HR GROUP (02/17/2024 6:30 AM EST) Creatinine, 24 Hour Urine 0.6(L) 1.0 - 2.0 G/Day [facility] Creatinine, Urine 35.04 [facility] Urine Total Volume 24 Hour 1,625 mL [facility] 02/17/2024 6:30 AM EST 02/17/2024 12:40 PM EST Narrative [facility] - 02/17/2024 1:48 PM EST [id number] Generic External Data Provider LAB URINE ORDERAB LES Final Result Performing Organization Address [facility] Co de Phone Number [facility] [address] [place] [phone] * (ABNORMAL) Calcium, 24 Hour Urine W/ Creatinine (02/17/2024 6:30 AM EST) Calcium, 24 Hour Urine 177 mg/24 h [facility] Comment:Reference Range 35-2 50 Low calcium diet 35-200 Calcium/Creatini ne Ratio 321(A) 30 - 275 mg/g creat [facility] Creatinine, 24 Hour Urine 0.55 0.50 - 2.15 g/24 h [facility] Comment:THIS TEST WAS PERFOR MED AT:[employer] [address] [phone] CAMARENA MD 02/17/2024 6:30 AM EST 02/17/2024 12:40 PM EST Narrative [facility] - 02/18/2024 6:13 PM EST [id number] us Generic External Data Provider LAB URINE ORDERAB LES Final Result [facility] [address] [place] [address] [phone] * Aldosterone, urine, 24 hour (02/17/2024 6:30 AM EST) Creatinine, Urine 0.55 0.50 - 2.15 g/24 h [facility] Comment:THIS TEST WAS PERFOR MED AT:[employer]/BILL [id number] [facility] [place] [address]YMFXDMARLEY GILL MD,PHD,AISSATOU Total Volume 1625 mL [facility] Aldosterone, 24-Hour Urine 1.3 mcg/24 h [facility] Comment:This test was perfor med by LCMSMS.Adult Reference Ranges for Aldosterone 24 hour urine (mcg/24hrs):Random sodium diet: 2.3-21.0 mcg/24 hoursOral sodium loading test (high salt diet for 3 days): 12 mcg/24 hrs or lessCollar Setter JW, Yumiko RM, Danyel F, et al. The Management ofPrimary Aldosteronism: Case Detection, Diagnosis, andTreatment: An Endocrine Society Clinical Practice Guideline.J Clin Endocrinol Metab. 2016; 101:1351-1708.This test was developed and its analytical performancecharacteristics have been determined by [employer].It has not been cleared or approved by FDA. This assay hasbeen validated pursuant to the CLIA regulations and is usedfor clinical purposes. 02/17/2024 6:30 AM EST 02/17/2024 12:40 PM EST Generic External Data Provider LAB URINE ORDERAB LES Final Result Performing Organization Address City/[facility]/ZIP Co de Phone Number [facility] [address] [place] [phone] * (ABNORMAL) Glucose, Whole Blood (02/10/2024 12:52 PM EST) Glucose, Whole Blood 207(H) 60 - 115 mg/dL [facility] Comment:METER #: [id number] 5Testing performed in the Endocrinology Department [address], [address], [facility]. 02/10/2024 12:5 2 PM EST 02/10/2024 12:55 PM EST Generic External Data Provider LAB BLOOD ORDERAB LES Final Result Performing Organization Address City/[facility]/ZIP Co de Phone Number [facility] [address] [place] [address] [phone] * (ABNORMAL) Hemoglobin A1c (12/25/2023 7:08 AM EDT) Hemoglobin A1c 8.2(H) <6.0 % [facility] Comment:Hemoglobin A1C Refer ence Range Adults: 4.8 - 6.0 % Non diabetic: < 6.0 % Goal: < 7.0 %Additional Action Suggested: > 8.0 %Note: Hemoglobin A1c results are invalid for patients with abnormal amounts of HbF. Blood transfusions may impact the HbA1c concentration in the patient sample. Estimated Average Glucose 189 mg/dL [facility] Comment:eAG = Estimated ave rage glucose which is %A1C expressed asaverage glucose, using the formula of the Z7A-ZpmdflhKywqpwu Glucose study (ADAG), Diabetes Care, Vol.31,#8,Aug. 2007 Blood Venous blood specimen / Unknown 12/25/2023 7:08 AM EDT 12/25/2023 7:09 AM EDT us Emy Goldsmith MD LAB BLOOD ORDERAB LES Final Result [facility] [address] [place] [address] [phone] * (ABNORMAL) Lipid Panel, Standard (12/25/2023 7:08 AM EDT) Triglycerides 232(H) <150 mg/dL [facility] Comment:Desirable Triglyceri de: less than 150 mg/dLBorderline High Triglyceride 150-199 mg/dLHigh Triglyceride: 200-499 mg/dLVery High Triglyceride: greater than or equal to 5OO mg/dL Cholesterol 154 <200 mg/dL [facility] Comment:Desirable Cholestero l: less than 200 mg/dLBorderline High Cholesterol: 200-239 mg/dLHigh Cholesterol: greater than 239 mg/dL LDL Cholesterol Calculated 64 <100 mg/dL [facility] Comment:Desirable LDL: less than 100 mg/dLNear Optimal/Above Optimal LDL: 110- 129 mg/dLBorderline High LDL: 130-159 mg/dLHigh LDL: 160-189 mg/dLVery High LDL: greater than or equal to 190 mg/dL HDL Cholesterol 44 >40 mg/dL [facility] Comment:Desirable HDL: great er than 40 mg/dL Note: This HDL assay may give artificially low results in patients with liver disease. Blood Venous blood specimen / Unknown 12/25/2023 7:08 AM EDT 12/25/2023 7:09 AM EDT us Emy Goldsmith MD LAB BLOOD ORDERAB LES Final Result Performing Organization Address [facility] Co de Phone Number [facility] [address] [place] [address] [phone] * (ABNORMAL) Albumin, Random Urine W/Creatinine (12/25/2023 7:05 AM EDT) Creatinine, Urine 50.21 mg/dL [facility] Microalbumin Urine 78.0 mg/L H [facility] Microalbum Creatinine Ratio Ur 155.3(H) <30 ug/mg cr [facility] Comment:Albumin/Creatinine R atio Reference Ranges: Normal: < 30 ug/mg creatinine Microalbuminuria: 30 - 300 ug/mg creatinineClinical Albuminuria: > 300 ug/mg creatinine Urine (Urine, Random) 12/25/2023 7:05 AM EDT 12/25/2023 7:49 AM EDT [facility]olds[facility] MD LAB URINE ORDERAB LES Final Result Performing Organization Address [facility] Co de Phone Number [facility] [address] [place] [address] [phone] * HPV mRNA E6/E7 w/Reflex to HPV Genotypes 16, 18/45 (05/27/2023 10:50 AM EDT) HPV nRNA E6/E7 Not Detected Not Detected [facility] Comment:Methodology: Transcr iption-Mediated AmplificationThis assay detects E6/E7 viral messenger RNA (mRNA) from 14high-risk HPV types (16,18,31,33,35,39,45,51,52,56,58,59,66,68).Cervical sources are required for HPV testing.If a vaginal source from a patient who has had atotal hysterectomy with removal of cervix wassubmitted, please contact the testing laboratoryfor alternative testing options.For additional information, please refer [email or web address]/faq/OIZ627u9(This link if provided for information/educational purposes only.)THIS TEST WAS PERFORMED AT:[employer] [place] [phone] CAMARENA MD HPV mRNA E6/E7 TNP [facility] HPV 16 RNA TNP [facility] HPV 18/45 RNA TNP [facility] 05/27/2023 10:5 0 AM EDT 05/28/2023 11:50 AM EDT Alden Cai CNM LAB CYTOLOGY ORDERABLES F inal Result [facility] [address] [place] [phone] [phone] * Pap Smear (05/27/2023 10:50 AM EDT) Swab Cervix uteri structure / Unknown 05/27/2023 10:50 AM EDT 05/28/2023 11:50 AM EDT Narrative [facility] - 06/09/2023 5:49 PM EDT ----- ------- Name: Jennifer Palmer ?Age/Sex: 62/F ? : 1960 Unit#: [id number] ?? Attend Dr: ALDEN CAI CNM ?Re05/27/23 ?Status: DEP REF ? Location: HO.HHCLNP ? Disch: ? ----- ------- SPEC : [id number] ? RECD: 05/28/23-1150 ? STATUS: ??SOUT ? REQ NUM: [id number] ? PRANAY: 05/27/23-1050 ? SUBM DR: ALDEN CAI CNM ? ENTERED: ??05/28/23-1305 ?SP TYPE: Pap Smr ?OTHR : ? [...] 66, 68) ? HPV testing performed by [employer], [place], [place]. ??See reference laboratory ?? portion of the EMR for entire report. ?Clinical Information LMP: Postmenopausal Previous PAP test: Unknown date/findings ? Material Received ?? ThinPrep-Vaginal/Cervical ----- ------- Signed (signature on file) Esther Gutierres 06/09/23 174 ? ----- ------- ? END OF REPORT ? Alden Cai [facility] LAB CYTOLOGY ORDERABLES F inal Result [facility] [address] [place] [address] [phone] * Colonoscopy (05/09/2023 6:56 PM EST) Historical Provider HEALTH MAINTENANCE Final Result * Hepatitis C Antibody Reflex (10/04/2022 9:42 AM EDT) Pathologist [facility] Hepatitis C Antibody Nonreactive Nonreactive [facility] Comment:Antibodies to HCV no t detected; does not exclude early acuteHCV infection. 10/04/2022 9:42 AM EDT 10/04/2022 9:43 AM EDT Emy Goldsmith MD LAB BLOOD ORDERAB LES Final Result [facility] [address] [place] [address] [phone] from Last 3 Months or Most Recently Relevant to Health Maintenance Insurance [facility] STAND ADULT Care Teams City Superintendent Of Schools Relationship Specialty Start Date End Date Emy Askew MD [address] [place] [phone] PCP - General Internal Medicine 07/25/22
--- OUTSIDE RECORDS SUMMARY | 2024-05-07 16:38 | XMS_ITS | Encounter Summary ---
Author Organization [employer] [facility] Address [address] [place] [address] 7 [place] [address] Care Team Providers Care Veterinary Physiologist Name Role Phone Cyn Bosch MD Primary Care Provider Kenya Delong AUDIO VISUAL COORDINATOR Primary Care Provider [phone] Emy Askew MD Primary Care Pro vider Encounter Details Date Type Department Care Team (Latest Contact Info) Description 09/30/2018 Abstract [facility] CONVERSIONS Dental, Provider, DDS Social History [...] 1:00 PM EDT Office Visit [facility] [address] [place] [address] Kathryn Yusuf CNM [address] [place] [address] documented as of this encounter Visit Diagnoses Not on filedocumented in this encounter Care Teams Veterinary Physiologist Relationship Specialty Start Date End Date Cyn Bosch MD PCP - General Family Medicine 08/20/19 01/21/[address] [facility] [address] [place] [address] PCP - General Family Medicine 01/22/22 07/24/22 Emy Askew MD [address] [place] [address] [place] [address] PCP - General Internal Medicine 07/25/22 documented as of this encounter
--- OUTSIDE RECORDS SUMMARY | 2024-05-07 16:38 | XMS_ITS | Encounter Summary ---
Author Organization [email or web address] Address [address] [place] [address] 7 [place] [address] Care Team Providers Care Fundraising Director Name Role Phone Emy Askew MD Primary Care Pro vider Reason for Visit * Reason Comments Med Refill Encounter Details Date Type Department Care Team ([facility] st Contact Info) Description 05/05/2024 Refill [facility] MEDICINE [address] [place] [address] Emy Askew MD [address] [place] [address] Chronic constipation Social History Tobacco Use Types Packs/Day Years [...] Description 05/26/2024 1:00 PM EDT Office Visit [facility] MEDICINE [address] [place], [place] [phone] Kathryn Yusuf CNM [address] [place] [address] documented as of this encounter Visit Diagnoses Diagnosis Chronic constipation Unspecified constipation documented in this encounter Additional Health Concerns Assessment Noted Time PHQ-9 Depression Total Score: 10 024 2:37 PM EDT documented as of this encounter Care Teams Fundraising Director Relationship Specialty Start Date End Date Emy Askew MD [address] [place], [place] [phone] PCP - General Internal Medicine 07/25/22 documented as of this encounter
--- OUTSIDE RECORDS SUMMARY | 2024-05-07 16:38 | XMS_ITS | Encounter Summary ---
Author Organization [employer] Address [address] [place] [address] 7 [place] [address] Care Team Providers Care Order Processor Name Role Phone Emy Askew MD Primary Care Pro vider Reason for Visit * Reason Onset Date Comments Nurse Triage 04/13/2024 Encounter Details Date Type Department Care Team ([facility] st Contact Info) Description 04/13/2024 Telephone [facility] MEDICINE [address] [place] [address] Emy Askew MD [address] [place] [address] Nurse Triage Social History Tobacco Use Types Packs/Day [...] encounter Miscellaneous Notes * Telephone Encounter - Jody Smith LPN - 04/13/2024 8:44 AM EST Triage call returned with BLS #[id number] Brenda. Patient reports that she has body aches and chills with tactile fever Has nasal congestion and cough. Cough is chief complaint.Feels slight dizziness but no numbness or weakness. Onset of symptoms last week. No ear pain or sore throat. No improvement with home care techniques. No acute shortness ofbreath or chest pain. Disposition reviewed and patient in agreement with plan. [facility] Insted referral placed and address and phone verified. Protocol Used: Common Cold (Adult) Protocol-Based Disposition: See in Office or Video Visit Today or Tomorrow Video visit offer not recorded Positive Triage Question: * Patient wants to be seen * All higher-acuity triage questions were negative Care Advice Discussed: * Reasons To Call Back - Fever lasts over 3 days - Runny nose lasts over 10 days - You become short of breath - You become worse * Telephone Encounter - Daniel Ling - 04/13/2024 8:11 AM EST Symptoms: Chills, Dizziness Outcome: Talk to a nurse or provider within 15 minutes Reason: Trouble walking The caller accepted this outcome. Contact pt at [phone] documented in this encounter Plan of Treatment Upcoming Encounters Date Type Department Care Team (Late st Contact Info) Description 05/26/2024 1:00 PM EDT Office Visit [facility] MEDICINE [address] [place], [place] [phone] Kathryn Yusuf CNM [address] [place], [place] [phone] documented as of this encounter Visit Diagnoses Not on filedocumented in this encounter Additional Health Concerns Assessment Noted Time PHQ-9 Depression Total Score: 10 024 2:37 PM EDT documented as of this encounter Care Teams Order Processor Relationship Specialty Start Date End Date Emy Askew MD [address] [place] [address] [phone] PCP - General Internal Medicine 07/25/22 documented as of this encounter
--- OUTSIDE RECORDS SUMMARY | 2024-05-07 16:38 | XMS_ITS | Data Portability ---
Author Organization [employer] [facility] Address [address] [place] [address] Care Team Providers Care Tele Tech Name Role Phone HIM [facility] OTHER [facility] OTHER Assessment Encounter Date Assessment Date Assessment LastModified by Organization Details LastModified Time 04/13/2024 04/13/2024 As noted, we were called to see this patient regarding concerns of URI symptoms. Evaluation in the field was performed by my exhaust worker colleague, as noted above, I provided real-time [...] QL IA, respiratory specimen 2024 025 [email or web address] [facility], [address] [place] [address], [phone], 5 14:42:18 rapid flu (A+B) 2024 Nathaly [email or web address] [facility], [address] [place] [address], [phone], 5 14:42:21 Referral None recorded. Procedures None [...] Name and Address Organization Details Recorded Time 36061 codeine medicatio n Not available Not available Not available 04/13/2024 2670 [facility] Not Available [facility] 5 09:12:08 18271 Bactrim medicatio n Not available Not available Not available 04/13/2024 57129 9 RxNorm Not Available [facility] - production 5 09:12:08 27929 sulfameth oxazole medicatio n Not available Not available Not available 04/13/2024 93270 [facility] Not Available [facility] 5 09:12:08 05769 trimethop rim medicatio n Not available Not available Not available 04/13/2024 65171 Rx[facility] Not Available [facility] 5 09:12:08 Medications Name Sig [...] /min 134 mm[Hg] 76 mm[Hg] Not Available [employer] - production 5 14:39:46 Social History None recorded. Functional Status None recorded. Mental Status None recorded. Family History Nothing Reported. Medical History No medical history recorded. Gynecological HistoryNo gynecological history recorded. Obstetrics History GPAL:G 0 P 0 0 0 0 Past Encounters Encounter ID Performer Location Encounter Start Date Encounter Closed Date Diagnosis/Indication Diagnosis SNOMED-CT Code Diagnosis ICD10 Code Diagnosis Note [id number] Sebastian Vanessa MD [address] [phone] 04/13/2024 14:39:43 04/13/2024 21:52:34 Viral upper respiratory tract infection 104718232 J06.9 Health Concerns Section Related Observation LastModified by Organization Detai ls LastModified Time None Recorded Concern Status LastModified by Organization Details LastModified Time None Recorded Advance Directives Directive None Recorded Payers Encounter Date Sequence Insurance Name Policy Number Policy Mendez Covered Member ID Mendez Member ID Guarantor Name 04/13/2024 1 [facility] - DOS ON OR AFTER 2022 - DUAL ELIGIBLE - SKILLED NURSING OPTIONS AND ONE CARE (MEDICARE REPLACEMENT/ADV ANTAGE - HMO) Jennifer Gu [id number] Jennifer Gu Notes Date Note Type Note [...] Disease (GERD) PMH Reviewed at 04/13/2024 - :12 Allergies Reviewed at 04/13/2024 - 09:12 Comments: HPI reviewed Guest Services Ambassador Organization Information for Emanuel Paige Legal Name: [employer], [employer] Address: [address] [place] [address], Drafter Landscape: Vinny STOKES No.: [id number] Guest Services Ambassador POC Test Results from [facility] - ALS Rapid influenza antigen (14:32:34) Flu: - Rapid COVID antigen (14:32:35) COVID: - ...................... ...................... ...................... ...................... ...................... ...................... ......... Guest Services Ambassador Note From Emanuel Paige: Dispatch to the [...] test negative, rapid flu test positive negative. [facility] [place]. Red flags discussed. All times are approximate. ...................... ...................... ...................... ...................... ...................... ...................... ......... [facility] [place] Consulted: Sebastian Vanessa ...................... ...................... ...................... ...................... ...................... ...................... ......... Disposition: Fulfilled Sebastian Vanessa MD [address] [facility],[address], [place], [phone], [employer] 04/13/2024 15:34:43 OBGyn Episode No OBEpisode recorded.
--- OUTSIDE RECORDS SUMMARY | 2024-05-07 16:38 | XMS_ITS | Encounter Summary ---
Author Organization [facility] Address [address] [place] [address] [address] [place] [address] Care Team Providers Care Cigarette Carton Sealer Name Role Phone Cyn Bosch MD Primary Care Provider Kenya Delong [facility] Primary Care Provider [phone] Emy Askew MD Primary Care Pro vider Encounter Details Date Type Department Care Team (Latest Contact Info) Description 05/09/2020 Abstract [facility] CONVERSIONS Dental, Provider, DDS Social History Tobacco [...] Description 05/26/2024 1:00 PM EDT Office Visit [facility] MEDICINE [address] [place] [address] Kathryn Yusuf CNM [address] [place] [address] documented as of this encounter Visit Diagnoses Not on filedocumented in this encounter Care Teams Cigarette Carton Sealer Relationship Specialty Start Date End Date Cyn Bosch MD PCP - General Family Medicine 08/20/19 01/21/22 Kenya Sol [facility] [address] [place] [address] PCP - General Family Medicine 01/22/22 07/24/22 Emy Askew MD [address] [place] [phone] PCP - General Internal Medicine 07/25/22 documented as of this encounter
--- OUTSIDE RECORDS SUMMARY | 2024-05-07 16:38 | XMS_ITS | Encounter Summary ---
Author Organization [employer] Address [address] [place] [address] 7 [place] [address] Care Team Providers Care Laborer Operator Name Role Phone Emy Askew MD Primary Care Pro vider Reason for Visit * Reason Comments Med Refill Encounter Details Date Type Department Care Team ([facility] st Contact Info) Description 02/09/2023 Refill [facility] MEDICINE [address] [place] [address] Emy Askew MD [address] [place] [address] Social History Tobacco Use Types Packs/Day Years [...] Description 05/26/2024 1:00 PM EDT Office Visit [facility] MED[facility] [address] [place] [address] Kathryn Yusuf CNM [address] [place] [address] documented as of this encounter Visit Diagnoses Not on filedocumented in this encounter Additional Health Concerns Assessment Noted Time PHQ-9 Depression Total Score: 16 023 10:16 AM EDT documented as of this encounter Care Teams Laborer Operator Relationship Specialty Start Date End Date Emy Askew MD [address] [place] [address] PCP - General Internal Medicine 07/25/22 documented as of this encounter
--- OUTSIDE RECORDS SUMMARY | 2024-05-07 16:38 | XMS_ITS | Encounter Summary ---
Author Organization [facility] [facility] Address [address] [place] [address] 7 [place] [address] Care Team Providers Care Model Maker Scale Name Role Phone Cyn Bosch MD Primary Care Provider Kenya Delong [facility] Primary Care Provider [phone] Emy Askew MD Primary Care Pro vider Encounter Details Date Type Department Care Team (Latest Contact Info) Description 10/26/2021 Abstract [facility] CONVERSIONS Dental, Provider, DDS Social History [...] 1:00 PM EDT Office Visit [facility] MEDICINE [address] [place] [address] Kathryn Yusuf CNM [address] [place] [address] documented as of this encounter Visit Diagnoses Not on filedocumented in this encounter Care Teams Model Maker Scale Relationship Specialty Start Date End Date Cyn Bosch MD PCP - General Family Medicine 08/20/19 01/21/22 Kenya Sol [facility] [address] [place] [address] PCP - General Family Medicine 01/22/22 07/24/22 Emy Askew MD [address] [place] [address] PCP - General Internal Medicine 07/25/22 documented as of this encounter
--- OUTSIDE RECORDS SUMMARY | 2024-05-07 16:38 | XMS_ITS | Encounter Summary ---
Author Organization [employer] Address [address] [place] [address] 7 [place] [address] Care Team Providers Care Teacher Of Gifted Students Name Role Phone Emy Askew MD Primary Care Pro vider Reason for Visit * Reason Comments Med Refill Encounter Details Date Type Department Care Team ([facility] st Contact Info) Description 04/28/2024 Refill [facility] MEDICINE [address] [place] [address] Emy Askew MD [address] [place] [address] Type 2 diabetes mellitus without complication, with long-term current use of insulin ([facility]) Social History Tobacco Use Types Packs/Day Years [...] Description 05/26/2024 1:00 PM EDT Office Visit [facility] MEDICINE [address] [place] [address] Kathryn Yusuf CNM [address] [place] [address] documented as of this encounter Visit Diagnoses Diagnosis Type 2 diabetes mellitus without complication, with long-term current use of insulin ([facility]) documented in this encounter Additional Health Concerns Assessment Noted Time PHQ-9 Depression Total Score: 10 024 2:37 PM EDT documented as of this encounter Care Teams Teacher Of Gifted Students Relationship Specialty Start Date End Date Emy Askew MD [address] [place] [address] PCP - General Internal Medicine 07/25/22 documented as of this encounter
--- OUTSIDE RECORDS SUMMARY | 2024-05-07 16:38 | XMS_ITS | Encounter Summary ---
Author Organization [facility] Address [address] [place] [address] Care Team Providers Care Business Line Manager Name Role Phone Berkley Bird MD Primary Care Provider [phone] Reason for Visit * Reason Comments DM Foot Care * Orthopedic (Routine) - Closed Specialty Diagnoses / Procedures Referred By Braxton moore Referred To Contact Podiatry / Orthopaedic Surgery Diagnoses Type 2 diabetes mellitus without complications Procedures AMB Referral to Podiatry. Emy Askew MD [address] [place] [address] Phone: tel: fax: Magen Velasco DPM [address] [address] Phone: tel: fax: Referral ID Status Reason Start Date Expiration Date V isits Requested Visits Authorized [id number] Closed Consult and Treat 01/22/2024 01/21/2025 1 1 Encounter Details Date Type Department Care Team (Late st Contact Info) Description 04/06/2024 1:30 PM EST Office Visit Orthopedic Surgery - [place] [address] [address] [phone] Magen Velasco DPM [address] [address] Controlled type 2 diabetes with neuropathy (CMS/HCC) (Primary Dx); Pain in toes of both feet; Arthritis of both feet; Dermatophytosis of nail Social History Tobacco Use Types Packs/Day Years Used Date Smoking Tobacco: Never Assessed Comments Unknown Sex and Gender Information Value Date Recorded Sex Assigned at Not on file Legal Sex Female 12:52 AM EST Gender Identity Not on file Sexual Orientation Not on file documented as of this encounter Last Filed Vital Signs Vital Sign Reading Time Taken Comments Blood Pressure - - Pulse - - Temperature - - Respiratory Rate - - Oxygen Saturation - - Inhaled Oxygen Concentration - - Weight 65.8 kg (145 lb) 04/06/2024 1:36 PM EST Height 157.5 cm (5' 2 ) 04/06/2024 1:36 PM EST Body Mass Index 26.52 04/06/2024 1:36 PM EST documented in this encounter Ordered Prescriptions Prescription Sig Dispense Quantity Refills Last Filled Start Date End Date terbinafine (LamISIL) 250 mg tablet Take 1 tablet (250 mg total) by mouth 1 (one) time each day. 30 tablet 2 04/06/2024 07/05/2024 documented in this encounter Progress Notes * Magen Velasco, FRITZ - 04/06/2024 1:30 PM EST Referring MD: Emy Askew* Last PCP visit: 01/13/2024 IDENTIFIER: @TITLE@ Estela is a 63 y.o. year old female who presents for consultation. CC: Pain in feet HPI: Patient presents to office today for initial diabetic foot evaluation as recommended by their primary care physician. Patient states that they have been diabetic for the past few years and notes that she has some tingling numbness of feet bilaterally Denies any history of ulceration, or infection. Patient would like to inquire about their pedal hygiene, as their toenails have become elongated and painful. Patient is not using antifungals at this time. Patient is wearing good supportive shoes at this time. Patient reports mild calluses that are becoming bothersome. Patient with minimal other pedal complaints at this time. Patient's FBS this AM was 163 Recent A1C is %. 8.2 ROS: GENERAL: Pt denies nausea, fever, vomiting, chills, or shortness of breath. Pt in NAD. CARDIOLOGY: pt denies chest pain, palpitations LUNGS: pt denies shortness of breath MUSCULOSKELETAL: See HPI, otherwise no joint pain or swelling, back pain, or muscle pain. SKIN: see HPI, otherwise no lesions, rash or itching NEURO: No persistent headache, weakness or numbness The remainder of the review of systems is noncontributory PAST MEDICAL HISTORY: Patient Active Problem List Diagnosis HTN (hypertension) Obesity HLD (hyperlipidemia) Depression Rheumatoid arthritis (CMS/HCC) Asthma SOCIAL HISTORY: Social History Tobacco Use Smoking status: Not on file Smokeless tobacco: Not on file Substance Use Topics Alcohol use: Not on file ACTIVE MEDICATIONS: No outpatient medications have been marked as taking for the 04/06/24 encounter (Office Visit) with Magen Velasco DPM. ALLERGIES: @ALL@ PHYSICAL EXAM: Height 1.575 m (62 ), weight 65.8 kg (145 lb). PODIATRIC EXAMINATION: GENERAL: Patient appears well nourished, with NAD. VASCULAR: Dorsalis pedis pulses are 1/4 bilaterally and Posterior tibial pulses are 1/4 bilaterally. Capillary filling time within normal limits the digits. No pallor on elevation or rubor on dependency. Positive hair growth. Many varicosities. +1 pitting edema bilaterally. Denies rest pain or claudication pain. NEUROLOGICAL: Sharp/dull sensation intact, protective sensation diminished on [place]. Peripheral neuropathies throughout the feet bilaterally ORTHOPEDIC: Good muscle strength 5/5 of all flexors and extensors. Dorsi flexion of ankle ,10 degrees, plantar flexion WNL. No muscle atrophy. Arthritic changes of midfoot bilaterally. Rigid contracture of digits 2 through 5. DERMATOLOGICAL:.No masses or skin lesions noted. Normal skin temperature, normal skin turgor. Nailsare elongated dystrophic discolored x 10 with subungual debris BIOMECHANICS: STJ ROM wnl, MTJ ROM wnl, 1st MPJ ROM wnl. IMPRESSION: 1. Controlled type 2 diabetes with neuropathy (CMS/HCC) 2. Pain in toes of both feet 3. Arthritis of both feet 4. Dermatophytosis of nail PLAN: Pt was seen and examined, history reviewed. Patient educated on the importance of good pedal hygiene and tight blood glucose control. Patient encouraged to maintain a healthy lifestyle with a well-balanced diet. Patient should never go barefoot and wear supportive shoe gear. Patient should aim for A1c less than 7% every month. Continue with regular appointments with PMD or campus recruiting internship for tight medical management Patient with symptoms of arthritic changes in the pedal joints. Patient showed good understanding of etiology of arthritis. Patient is aware that conservative options include padding, over the counter products, orthotics, and shoes. Patient aware that they are other treatments available such as oral anti- inflammatories, injections, and steroid dose packs. Patient understands that these measures are conservative measures to help handle the osteoarthritic flares. [address]: (ta) Procedure Utilizing sterile instramentation the affected nail(s) and subungual tissue were removed/Biopsy of nail unit of one or more nails was achieved and the nail and tissue were subsequently placed in a specimen container and will be sent to pathology for definitive diagnosis and lab evaluationto define treatment for this condition Patient found to have onychomycosis. Patient educated on different forms of treatment, including both topical and oral antifungals. Risks and benefits of both explained in detail, ranging from soft tissue irritation to liver function test elevation. Patient has decided to proceed with oral antifungal treatment with Lamisil (Terbinafine). Patient aware that the treatment will start after product safety test engineer of lab work confirming baseline liver function test. Patient's labs will have to be repeated every month. There will be a total of three pulses in total for complete treatment. Patient aware that changes in nails may not be present until 6months after treatment has began. Patient amenable to this treatment protocol. Magen Velasco DPM cc: Emy Askew* documented in this encounter Plan of Treatment Upcoming Encounters Date Type Department Care Team (Late st Contact Info) Description 06/08/2024 2:00 PM EDT Office Visit Orthopedic Surgery - [place] [address] [phone] Magen Velasco DPM [address] [address] documented as of this encounter Results * (ABNORMAL) Comprehensive metabolic panel (04/06/2024 2:00 PM EST) Sodium 138 133 - 145 mmol/L LAB CHEMISTRY METHOD 04/06/2024 6:42 PM EST [facility] Potassium 3.5 3.5 - 5.5 mmol/L LAB CHEMISTRY METHOD 04/06/2024 6:[address] [facility] Chloride 102 96 - 110 mmol/L LAB CHEMISTRY METHOD 04/06/2024 6:[address] [facility] CO2 31 21 - 32 mmol/L LAB CHEMISTRY METHOD 04/06/2024 6:[address] [facility] Anion Gap 5 3 - 11 LAB CHEMISTRY METHOD 04/06/2024 6:[address] [facility] Glucose 183(H) 70 - 100 mg/dL LAB CHEMISTRY METHOD 04/06/2024 6:[address] [facility] BUN 17 5 - 25 mg/dL LAB CHEMISTRY METHOD 04/06/2024 6:[address] [facility] Creatinine 0.94 0.50 - 1.10 mg/dL LAB CHEMISTRY METHOD 04/06/2024 6:[address] [facility] eGFR 67 >=60 mL/min/1. 73m2 LAB CHEMISTRY METHOD 04/06/2024 6:[address] [facility] Comment:Calculation based on the??Chronic Kidney Disease Epidemiology Collaboration (CKD-EPI) equation refit??without adjustment for race. BUN/Creatinine Ratio 18.1 LAB CHEMISTRY METHOD 04/06/2024 6:[address] [facility] Calcium 10.3 8.5 - 10.5 mg/dL LAB CHEMISTRY METHOD 04/06/2024 6:[address] [facility] AST (SGOT) 15 10 - 42 unit/L LAB CHEMISTRY METHOD 04/06/2024 6:[address] [facility] ALT (SGPT) 22 10 - 60 unit/L LAB CHEMISTRY METHOD 04/06/2024 6:[address] [facility] Alkaline Phosphatase 140(H) 42 - 121 unit/L LAB CHEMISTRY METHOD 04/06/2024 6:[address] [facility] Total Protein 7.6 6.0 - 8.0 g/dL LAB CHEMISTRY METHOD 04/06/2024 6:42 PM EST [facility] Albumin 3.6 3.2 - 5.0 g/dL LAB CHEMISTRY METHOD 04/06/2024 6:42 PM EST [facility] Total Bilirubin 0.3 0.0 - 1.4 mg/dL LAB CHEMISTRY METHOD 04/06/2024 6:42 PM EST [facility] Blood Venous blood specimen / Unknown Venipuncture / Unknown 04/06/2024 2:00 PM EST 04/06/2024 2:00 PM EST us Magen Velasco DPM LAB BLOOD ORDERABLES Final Result [facility] [address] [place] [address], [place] [phone] documented in this encounter Visit Diagnoses Diagnosis Controlled type 2 diabetes with neuropathy (CMS/HCC)- Primary Type II or unspecified type diabetes mellitus with neurological manifestations, not stated as uncontrolled Pain in toes of both feet Arthritis of both feet Dermatophytosis of nail documented in this encounter Care Teams Business Line Manager Relationship Specialty Start Date End Date Berkley Bird MD [address] [address] PCP - General Internal Medicine 02/20/24 documented as of this encounter
--- OUTSIDE RECORDS SUMMARY | 2024-05-07 16:38 | XMS_ITS | Encounter Summary ---
Author Organization [employer] [facility] Address [address] [place] [address] 7t [place] [address] Care Team Providers Care Catering Server Name Role Phone Kenya Sol [facility] Primary Care Provider [phone] Emy Askew MD Primary Care Pro vider Encounter Details Date Type Department Care Team (Late st Contact Info) Description 03/26/2022 Orders Only [facility] MEDICINE [address] [place], [place] [phone] Lizett Cannon LPN Social History Tobacco Use [...] Description 05/26/2024 1:00 PM EDT Office Visit [facility] MEDICINE [address] [place], [place] [phone] Kathryn Yusuf CNM [address] [place], [place] [phone] documented as of this encounter Visit Diagnoses Not on filedocumented in this encounter Care Teams Catering Server Relationship Specialty Start Date End Date Kenya Sol FNP [address] [place] [address] PCP - General Family Medicine 01/22/22 07/24/22 Emy Askew MD [address] [place] [address] PCP - General Internal Medicine 07/25/22 documented as of this encounter
== END 2024-05-07 14:32 | disposition home or self-care (01) ==
PROVIDERS: PCP Student in an Organized Health Care Education/Training Program; Visit Provider Orthopaedic Surgery
DX: M17.0 Bilateral primary osteoarthritis of knee (principal)
CPT/HCPCS: 20610; 99213

== ENCOUNTER → 2024-05-07 13:40 | Outpatient (BNVA) | payer OTHER, SELFPAY | PROVIDERS: PCP Student in an Organized Health Care Education/Training Program; Visit Provider Orthopaedic Surgery | DX: M17.0 Bilateral primary osteoarthritis of knee (principal) | CPT/HCPCS: 20610; 99212; J0665; J1100; J2003 ==

== ENCOUNTER 2024-05-26 12:37 | Outpatient (REF) | payer OTHER, SELFPAY ==
[2024-05-27 13:06] LABS: Bacterial Vaginosis PCR NEGATIVE (Negative); Candida Group PCR NOT DETECTED (Not Detect); Candida glab krusei PCR NOT DETECTED (Not Detect); Trichomonas vaginalis PCR NOT DETECTED (Not Detect)
== END 2024-05-26 12:38 | disposition home or self-care (01) ==
LOC: HO.LNP 12:37
PROVIDERS: Visit Provider Advanced Practice Midwife
DX: L29.2 Pruritus vulvae (principal)
CPT/HCPCS: 81515

== ENCOUNTER 2024-06-04 09:49 | Outpatient (REF) | payer OTHER, SELFPAY ==
--- OUTSIDE RECORDS SUMMARY | 2024-06-04 10:27 | XMS_ITS | Encounter Summary ---
Author Organization [employer] [facility] Address [address] [place] [address] [facility] [place] [address] Care Team Providers Care Alarm Service Technician Name Role Phone Cyn Bosch MD Primary Care Provider Kenya Delong [facility] Primary Care Provider [phone] Emy Askew MD Primary Care Pro vider Encounter Details Date Type Department Care Team (Latest Contact Info) Description 05/09/2020 Abstract [facility] CONVERSIONS Dental, Provider, DDS Social History [...] Care Team (Late st Contact Info) Description 07/16/2024 11:15 AM EDT Office Visit [facility] MEDICINE [address] [place] [address] Emy Askew MD [address] [place], [place] [phone] documented as of this encounter Visit Diagnoses Not on filedocumented in this encounter Care Teams Alarm Service Technician Relationship Specialty Start Date End Date Cyn Bosch MD PCP - General Family Medicine 08/20/19 01/21/22 Kenya Sol FNP [address] [place] [address] PCP - General Family Medicine 01/22/22 07/24/22 Emy Askew MD [address] [place] [address] PCP - General Internal Medicine 07/25/22 documented as of this encounter
--- OUTSIDE RECORDS SUMMARY | 2024-06-04 10:27 | XMS_ITS | Data Portability ---
Author Organization [employer] [facility] Address [address] [place] [address] Care Team Providers Care Travel Manager Name Role Phone [facility] OTHER [facility] OTHER [phone] Assessment Encounter Date Assessment Date Assessment LastModified by Organization Details LastModified Time 04/13/2024 04/13/2024 As noted, we were called to see this patient regarding concerns of URI symptoms. Evaluation in the field was performed by my patient account representative colleague, as noted above, I provided [...] QL IA, respiratory specimen 2024 025 [email or web address] [facility], [address] [place] [address], [phone], 5 14:42:18 rapid flu (A+B) 2024 Nathaly [email or web address] [facility], [address] [place] [address], [phone], 5 14:42:21 Referral None recorded. Procedures None [...] Name and Address Organization Details Recorded Time 68018 codeine medicatio n Not available Not available Not available 04/13/2024 2670 [facility] Not Available [facility] 5 09:12:08 24315 Bactrim medicatio n Not available Not available Not available 04/13/2024 40420 9 RxNorm Not Available [facility] - production 5 09:12:08 46122 sulfameth oxazole medicatio n Not available Not available Not available 04/13/2024 47847 [facility] Available [facility] 09:12:08 14310 trimethop rim medicatio n Not available Not available Not available 04/13/2024 40532 Rx[facility] Not Available [facility] - [...] /min 134 mm[Hg] 76 mm[Hg] Not Available [employer] - production 5 14:39:46 Social History None recorded. Functional Status None recorded. Mental Status None recorded. Family History Nothing Reported. Medical History No medical history recorded. Gynecological HistoryNo gynecological history recorded. Obstetrics History GPAL:G 0 P 0 0 0 0 Past Encounters Encounter ID Performer Location Encounter Start Date Encounter Closed Date Diagnosis/Indication Diagnosis SNOMED-CT Code Diagnosis ICD10 Code Diagnosis Note [id number] Sebastian Vanessa MD [address] [phone] 04/13/2024 14:39:43 04/13/2024 21:52:34 Viral upper respiratory tract infection 262027553 J06.9 Health Concerns Section Related Observation LastModified by Organization Detai ls LastModified Time None Recorded Concern Status LastModified by Organization Details LastModified Time None Recorded Advance Directives Directive None Recorded Payers Encounter Date Sequence Insurance Name Policy Number Policy Mendez Covered Member ID Mendez Member ID Guarantor Name 04/13/2024 1 [facility] - DOS ON OR AFTER 2022 - DUAL ELIGIBLE - RETIREMENT OPTIONS AND ONE CARE (MEDICARE REPLACEMENT/ADV ANTAGE - HMO) Jennifer Gu [id number] Jennifer Gu Notes Date Note Type Note [...] at 04/13/2024 - 09:12 Comments: HPI reviewed Supervisory Training Specialist Organization Information for Emanuel Paige Legal Name: [employer] Address: [address] [place] [address], Kiss Setter Hand: Vinny STOKES No.: [id number] Supervisory Training Specialist POC Test Results from [facility] - ALS Rapid influenza antigen (14:32:34) Flu: - Rapid COVID antigen (14:32:35) COVID: - ...................... ...................... ...................... ...................... ...................... ...................... ......... Supervisory Training Specialist Note From Emanuel Paige: Dispatch to the [...] test negative, rapid flu test positive negative. [facility] consulted. Red flags discussed. All times are approximate. ...................... ...................... ...................... ...................... ...................... ...................... ......... [facility] Consulted: Sebastian Vanessa ...................... ...................... ...................... ...................... ...................... ...................... ......... Disposition: Fulfilled Sebastian Vanessa MD [address] [facility],[address], [place], [address], [email or web address] 04/13/2024 15:34:43 OBGyn Episode No OBEpisode recorded.
--- OUTSIDE RECORDS SUMMARY | 2024-06-04 10:27 | XMS_ITS | Encounter Summary ---
Author Organization [employer] [facility] Address [address] [place] [address] 7t [place] [address] Care Team Providers Care Log Getter Name Role Phone [facility] Primary Care Provider [phone] Emy Askew MD Primary Care Pro vider Reason for Visit * Reason Onset Date Comments VISION 03/13/2022 Encounter Details Date Type Department Care Team ([facility] st Contact Info) Description 03/13/2022 Telephone [facility] MEDICINE [address] [place] [address] [facility] [address] [place] [address] VISION Social History Tobacco Use Types Packs/Day [...] center regarding an eye exam. Please contact [phone] documented in this encounter Plan of Treatment Upcoming Encounters Date Type Department Care Team (Late st Contact Info) Description 07/16/2024 11:15 AM EDT Office Visit [facility] MEDICINE [address] [place] [address] Emy Askew MD [address] [place] [address] documented as of this encounter Visit Diagnoses Diagnosis Diabetes 1.5, managed as type 2 (CMS/HCC) documented in this encounter Care Teams Log Getter Relationship Specialty Start Date End Date Kenya Sol FNP [address] [place] [address] PCP - General Family Medicine 01/22/22 07/24/22 Emy Askew MD [address] [place] [address] PCP - General Internal Medicine 07/25/22 documented as of this encounter
--- OUTSIDE RECORDS SUMMARY | 2024-06-04 10:27 | XMS_ITS | Clinical Summary ---
Author Organization [employer] Address [address] [place] [address] [address] [place] [address] Care Team Providers Care Food Demonstrator Name Role Phone Emy Askew MD Primary Care Pro vider Allergies Active Allergy Reactions Criticality Noted Date Comments Codeine Unknown,Other 02/28/2010 Other Reaction(s): Not available codeine sulfate Sulfa Antibiotics 12/22/2012 Other Reaction(s): Not available Sulfamethoxazole Hives,Rash Low 02/28/2010 Sulfamethoxazole-Trimethopri m Rash,Other Low 07/17/2022 Other Reaction(s): Not available Bactrim Trimethoprim Hives 02/28/2010 Other reaction(s): rash Other Reaction(s): Not available Medications furosemide (Lasix) 20 MG tablet Take [...] daily as directed to prevent dry mouth 018 Active Fluticasone Furoate-Vilantero l (Breo Ellipta) 100-25 MCG/ACT aerosol powder Inhale 1 puff at bed time. Active leflunomide (Arava) 20 MG tablet Take 20 mg by mouth in the morning. Active gabapentin (Neurontin) 300 MG capsule Take 300 mg by mouth 2 times daily. By psych Active FREESTYLE LITE test stripIndications: Type 2 diabetes mellitus with hyperglycemia (CMS/HCC),Type 2 diabetes mellitus without complications (CMS/HCC) TEST BLOOD SUGAR FOUR TIMES DAILY 100 strip 11 Active sodium chloride ([place] Nasal Tatum) 0.65 % nasal spray Administer 1 spray into each nostril if needed for congestion. 30 mL 2 024 2024 Active FreeStyle lancets 1 each by Other route at noon and 1 each in the evening. Test blood sugar 4 times a day. 100 each 024 2024 Active estradiol (Estrace) 0.1 MG/GM vaginal cream [...] mouth at bedtime. 90 tablet 1 Active traZODone (Desyrel) 50 MG tablet Take [...] FOR WHEEZING 18 g 2 024 Active Alcohol Swabs (Alcohol Prep) 70 % padsIndications:T ype 2 diabetes mellitus without complication, unspecified whether care home insulin use (CMS/[facility]) USE DIRECTED FIVE TIMES DAILY 100 each 5 025 Active cloNIDine (Catapres) 0.2 MG tablet TAKE 1 TABLET BY MOUTH TWICE DAILY IN THE MORNING AND IN THE EVENING 60 tablet 3 025 Active BD Pen Needle Jammie U/F 32G X 4 MM miscIndications:T ype 2 diabetes mellitus without complication, with long-term current use of insulin (CMS/HCC) USE THREE TO FOUR TIMES DAILY DIRECTED 100 each 11 025 Active senna (Senokot) 8.6 MG tablet TAKE 2 TABLETS BY MOUTH EVERY DAY NEEDED FOR CONSTIPATION 180 tablet 025 Active losartan (Cozaar) 100 MG tablet TAKE 1 TABLET BY MOUTH EVERY MORNING 90 tablet 025 Active docusate sodium (Colace) 100 MG capsuleIndication s:Chronic constipation TAKE 1 CAPSULE BY MOUTH TWICE DAILY NEEDED FOR CONSTIPATION 180 capsule 025 Active Aspirin EC Adult Low Dose 81 MG EC tablet TAKE 1 TABLET BY MOUTH EVERY MORNING 90 tablet 1 025 Active calcium carbonate 1500 (600 Ca) MG tabletIndications :Benign essential hypertension TAKE 1 TABLET BY MOUTH EVERY MORNING 90 tablet 1 025 Active loratadine (Claritin) 10 MG tablet TAKE 1 TABLET BY MOUTH EVERY DAY NEEDED FOR ALLERGIES 90 tablet 1 025 Active cevimeline (Evoxac) 30 MG capsule TAKE 1 CAPSULE (30 MG) BY MOUTH 3 TIMES DAILY. 90 capsule 025 Active amoxicillin (Amoxil) 500 MG capsuleIndication s:Pharyngitis, unspecified etiology Take 1 capsule (500 mg) by mouth every 12 (twelve) hours for 10 days. 20 capsule 025 2024 Active aspirin (Aspirin Low Dose) 81 MG EC tablet TAKE 1 TABLET BY MOUTH EVERY MORNING 90 tablet 1 024 2024 Discontinued calcium carbonate 1500 (600 Ca) MG tabletIndications :Benign essential hypertension TAKE 1 TABLET BY MOUTH EVERY MORNING 90 tablet 1 024 2024 Discontinued loratadine (Claritin) 10 MG tablet TAKE 1 TABLET BY MOUTH ONCE DAILY NEEDED FOR ALLERGIES 90 tablet 024 2024 Discontinued cevimeline (Evoxac) 30 MG capsule Take 1 capsule (30 mg) by mouth 3 times daily. 90 capsule 2 024 2024 Discontinued Active Problems Problem Noted [...] diet and exercise,discussed healthy life style - preflight mechanic referred already-pd to schedule apt. gave today information to pt to call for apt Assessment & Plan (10/23/2022 5:21 PM EDT): Advised pt to improve diet and exercise,discussed healthy life style - preflight mechanic referred already-pd to schedule apt Assessment & Plan (09/24/2022 8:29 PM EDT): Advised pt to improve diet and exercise,discussed healthy life style -discussed preflight mechanic referral - today Sialoadenitis of submandibular gland [...] referred by ENT for further eval in [place] but never went -referred again to ENT [...] referred by ENT for further eval in [place] but never went -referred again to ENT [...] w RA / Sjogren's disease, follows w customer support associate - Continue care w specialist -on leflunomide and MTX Assessment & Plan (10/23/2022 5:23 PM EDT): Pt w RA / Sjogren's disease, follows w customer support associate - Continue care w specialist -on leflunomide and MTX Assessment & Plan (09/24/2022 8:33 PM EDT): Pt w RA / Sjogren's disease, follows w customer support associate - Continue care w specialist Bilateral post-traumatic [...] Pt following w psychiatrist and therapist at [facility]. Denies SI but has thoughts to be better off . - Continue care w specialist - Pt requests information to be able to change to an old age home --already received information -in process per pt Assessment & Plan (10/23/2022 5:23 PM EDT): Pt following w psychiatrist and therapist at [facility]. Denies SI but has thoughts to be better off . - Continue care w specialist - Pt requests information to be able to change to an old age home --already received information -in process per pt Assessment & Plan (09/24/2022 8:32 PM EDT): Pt following w psychiatrist and therapist at [facility]. Denies SI but has thoughts to be better off . - Continue care w specialist - Pt requests information to be able to change to an old age home -- I spoke w protective services case worker today and they will come to speak w pt to give info. Was told that there is no need to refer to CM for this. Type 2 diabetes mellitus without complication Assessment & Plan (12/06/2022 6:16 AM EDT): 09/2022 HbA1C 8.2<---8.7, CBG 248., total ch 169, trig 324( in fasting) ,HDL 36,LDL 69, Microalb neg Used to follow w life support technician, but lost care. Not on metformin for [...] - to f in 1 y. - Master Esthetician: seen in 11/2022 Assessment & Plan (10/23/2022 5:46 PM EDT): 09/2022 HbA1C 8.2<---8.7, CBG 248., total ch 169, trig 324( in fasting) ,HDL 36,LDL 69, Microalb neg Used to follow w life support technician, but lost care. Not on metformin for [...] - to f in 1 y. - Master Esthetician: referred today Assessment & Plan (09/24/2022 8:51 PM EDT): Today HbA1C 8.7, CBG 248. Used to follow w life support technician, but lost care. - DM2 labs. - Will consider increasing Trulicity at her next appt. - Pt not currently on Metformin, but used to be in the past. Will check at her next appt, and if she can tolerate it, will resume Rx. - Ophthalmology 07/2022 - to f in 1 y. - Master Esthetician: will refer at next visit. Varicose veins of lower extremity 07/08/2017 Assessment & Plan (10/23/2022 5:12 PM EDT): Pt w lower extremity edema trace from 1+ before , possibly from Cardiazem and venous insufficiency. - Advised to use compression stockings,--started using with noted improved LE edema -I confirmed today w her behavioral health case manager-Dr Watkins #[phone] that pt does not have CHF and [...] (12/06/2022 6:19 AM EDT): Pt following with customer support associate. Pt w consistently dry mouth. From med [...] for unclear reasons. - PT following w behavioral health case manager actively w on and off chest discomfort. [...] mg in pm - PT following w behavioral health case manager -will f BP in next 3 to 4 weeks Assessment & Plan (09/24/2022 8:43 PM EDT): BP slightly elevated at 144/94 - Holter 2019 neg. -echocardiogram 2018The left ventricular systolic function is normal. The visually estimated ejection fraction is between 60-65%. -stress test 2019 : nondiagnostic EKG For ischemia. - Will monitor BP manually at next visit. - PT following w behavioral health case manager Chronic constipation 12/24/2016 Gastroesophageal reflux disease without esophagi tis 12/24/2016 Hyperlipidemia associated with type 2 diabetes m ellitus 12/24/2016 Migraine 12/24/2016 Resolved Problems Problem Noted [...] in 2016 here . 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 Hold am of surgery lasix,amytriptiline,lisinopril .Hold ASA 5 days prior procedure and avoid NSAIDS 7 days prior procedure. -will rec to have post op EKG as rec by her behavioral health case manager for noted prolonged QTC -will rec to [...] Encounters Date Type Department Care Team Description 06/04/2024 10:00 AM EDT Office Visit [facility] [address] [place] [phone] Kaden Jaime MD Pharyngitis, unspecified etiology (Primary Dx) 05/27/2024 Telephone [facility] [address] [place] [phone] Alden Cai CNM Results 05/26/2024 1:00 PM EDT Office Visit [address] [address] Alden Cai CNM Visit for pelvic exam (Primary Dx); Vulvar itching 05/26/2024 Travel 05/20/2024 Refill [facility] [address] [place] [address] Dorinda Barajas ANP 05/10/2024 Refill [facility] [address] [place] [address] Emy Askew MD Benign essential hypertension 05/05/2024 Refill [facility] [address] [place] [address] Emy Askew MD Chronic constipation 04/28/2024 Refill [facility] [address] [place] [phone] Emy Askew MD Type 2 diabetes mellitus without complication, with long-term current use of insulin ([facility]) 04/13/2024 Telephone [facility] [address] [place] [address] [place] [address] Emy Askew MD Nurse Triage 04/08/2024 Telephone [facility] [address] [place] [phone] Nicolas Jessica PAUL Nguyen recall 04/05/2024 Refill [facility] [address] [place] [address] Emy Askew MD 03/25/2024 Refill [facility] [address] [place] [address] Emy Askew MD Type 2 diabetes mellitus without complication, unspecified whether care home insulin use ([facility]) 03/20/2024 Travel 03/17/2024 Orders Only [facility] [address] [place] [phone] Emy Askew MD 03/17/2024 Telephone [facility] [address] [place] [phone] Kaylen Mane, GARY Appointment Request 03/10/2024 Telephone [facility] [address] [place] [phone] Emy Askew MD from Last 3 Months Immunizations Name Administration [...] Sign Reading Time Taken Comments Blood Pressure 133/89 06/04/2024 9:31 AM EDT Pulse 83 06/04/2024 9:31 AM EDT Temperature 36.9 ??C (98.5 ??F) 06/04/2024 9:31 AM ED T Respiratory Rate 16 06/04/2024 9:31 AM EDT Oxygen Saturation 95% 06/04/2024 9:31 AM EDT Inhaled Oxygen Concentration - - Weight 63.2 kg (139 lb 6.4 oz) 06/04/2024 9:31 A M EDT Height 157.5 cm (5' 2 ) 06/04/2024 9:31 AM EDT Body Mass Index 25.5 06/04/2024 9:31 AM EDT Plan of Treatment Upcoming Encounters Date Type Department Care Team (Late st Contact Info) Description 07/16/2024 11:15 AM EDT Office Visit [facility] [address] [place] [phone] Emy Askew MD [address] [place] [address] Health Maintenance Due Date Last Done Comments CT Colonography 1960 FIT DNA/Cologuard 1958 FIT 1958 FOBT 1960 Sigmoidoscopy 1958 Diabetes: Foot Exam 1968 Dental Oral Exam 04/29/2022 10/26/2021, 10/2020, 04/06/2019, Additional history exists Dental Prophylaxis 01/18/2023 07/17/2022, 0 10/26/2021, 04/14/2021, Additional history exists Dental X-Ray: Full Mouth 08/20/2023 08/18/2020, 0310/2020 COVID-19 Vaccine ( season) 2023 03/20/2023, 09/24/2022, [...] history exists Alcohol/Substance Use Screening 01/12/2025 01/13/2024 Mammogram 03/17/2025 03/17/2024, 11/03, 07/28/2021, Additional history exists Tobacco Screening 06/04/2025 06/04/2024 Eye Exam 01/07/2026 01/08/2024, 1108/2023, 01/08/2024, Additional history exists DTaP/Tdap/Td Vaccines (3 [...] Procedure Name Priority Date/Time Associated Diagnosis Comments POCT RAPID STREP A Routine 06/04/2024 9: 50 AM EDT Pharyngitis, unspecified etiology POCT RAPID COVID ANTIGEN Routine 06/04/2024 9:50 AM EDT Pharyngitis, unspecified etiology POCT INFLUENZA A (ID NOW RAPID MOLECULAR) Routine 06/04/2024 9:50 AM EDT Pharyngitis, unspecified etiology POCT INFLUENZA B (ID NOW RAPID MOLECULAR) Routine 06/04/2024 9:50 AM EDT Pharyngitis, unspecified etiology POCT WET MOUNT/DAVON Routine 05/26/2024 12 :38 PM EDT Vulvar itching BACTERIAL VAGINOSIS PANEL Routine 05/26/2024 12:37 PM EDT Vulvar itching XR SACROILIAC JOINTS 1-2 VIEWS Routine 03/27/2024 11:12 AM EST XR HIP 2 OR 3 VIEWS LEFT Routine 03/27/2024 11:12 AM EST BI MAMMOGRAM SCREENING TOMOSYNTHESIS BILATERAL Routine 03/17/2024 1:00 PM EST HEMOGLOBIN A1C Routine 12/25/2023 7:08 AM EDT Annual physical exam LIPID PANEL, STANDARD Routine 12/25/2023 7:08 AM EDT Annual physical exam ALBUMIN, RANDOM URINE W/CREATININE Routine 12/25/2023 7:05 AM EDT Annual physical exam BITEWING - SINGLE RADIOGRAPHIC IMAGE Routine 06/10/2023 3:30 PM EDT Periodontal disease Fractured dental buddhist with loss of material HPV MRNA E6/E7 [...] Recently Relevant to Health Maintenance Results * Influenza B (ID NOW Rapid Molecular) (06/04/2024 9:50 AM EDT) Influenza B Negative Negative, Indeterminate [facility] Swab 06/04/2024 9:50 AM EDT Kaden Jaime MD POINT OF CARE TEST ENTER/EDIT OR DERABLES Final Result [facility] [address] [place] [phone] * Influenza A (ID NOW Rapid Molecular) (06/04/2024 9:50 AM EDT) [facility] Influenza A Negative Negative, Indeterminate [facility] Swab 06/04/2024 9:50 AM EDT Kaden Jaime MD POINT OF CARE TEST ENTER/EDIT OR DERABLES Final Result Performing Organization Address City/State/[facility] Co de Phone Number [facility] [address] [place] [phone] * POCT Rapid COVID Ag (06/04/2024 9:50 AM EDT) [facility] Rapid COVID Ag Negative Swab 06/04/2024 9:50 AM EDT Kaden Jaime MD POINT OF CARE TEST ENTER/EDIT OR DERABLES Final Result * POCT rapid strep A manually resulted (06/04/2024 9:50 AM EDT) [facility] Rapid Strep A Screen Negative Negative, None Detected Swab 06/04/2024 9:50 AM EDT Kaden Jaime MD POINT OF CARE TEST ENTER/EDIT OR DERABLES Final Result * POCT fern test, vaginal fluid manually resulted (05/26/2024 12:38 PM EDT) [facility] DAVON Prep Negative Comment:pH 5, neg whiff, neg clue, neg trich, neg wbc, neg hyphae Vaginal Fluid Vaginal structure / Unknown 05/26/2024 12:38 PM EDT Alden Cai CNM POINT OF CARE TEST ENTER/ EDIT ORDERABLES Final Result * Bacterial Vaginosis Panel (05/26/2024 12:37 PM EDT) [facility] TRICHOMONAS VAGINALIS DETECTION BY PCR NOT DETECTED Not Detect [facility] BACTERIAL VAGINOSIS DETECTION BY PCR NEGATIVE Negative [facility] Comment:The BV organism targ ets of the Xpert Xpress MVP test can becommensal in women; Xpert Xpress MVP positive results forbacterial vaginosis should be considered in conjunction withother clinical and patient information to determine thedisease status. Organisms that are not detected by the XpertXpress MVP test have also been reported to be associatedwith BV and aerobic vaginitis.The Xpert Xpress MVP test performance has not been evaluatedin patients under the age of 14. [employer] DETECTION BY PCR NOT DETECTED Not Detect [facility] Sammie glab krusei PCR NOT DETECTED Not Detect [facility] Swab Vaginal structure / Unknown 05/26/2024 12:37 PM EDT 05/26/2024 4:52 PM EDT Alden Cai CN LAB MICROBIOLOGY - GENERA L ORDERABLES Final Result [facility] [address] [place] [address] [phone] * XR Hip 2 or 3 Views Left (03/27/2024 11:12 AM EST) Anatomical Region Laterality Modality Lower Extremities, Hip Left Radiograp hic Imaging 03/27/2024 11:1 2 AM EST Narrative 03/30/2024 10:04 AM EST ? [facility] ? [address] ?[place] [address] ?XRay Report ? Signed ? Patient: Estela,Jennifer ?MR#: [id number] ?? 0 ? : 1960 ?Acct:[id number] ? Age/Sex: 63 / F ?ADM Date: 01/24/25 ? Loc: HO.HOSX ? Attending : Aleksandra Culp MD ? Ordering Physician: Aleksandra Chu ?? Date of Service: 03/27/24 ?? Procedure(s): XR hip LT min 2V ?? Accession Number(s): [id number] ? cc: Emy Askew MD; Aleksandra Chu [...] DD/ 1112 ? TD/TT: 03/27/24 1115 ? Spray Rig Operator: ? Procedure Note Aniket, Image - 03/30/2024 [facility] [address] [place] [address] [address] [place] [address] XRay Report Signed Patient: Axel Palmer#: [id number] 0 : 9Acct:[id number] Age/Sex: 63 / FADM Date: 03/27/24 Loc: HO.HOSX Attending Dr: Aleksandra Culp MD Ordering Physician: Aleksandra Chu Date of Service: 03/27/24 Procedure(s): XR hip LT min 2V Accession Number(s): [id number] cc: Emy Askew MD; Aleksandra Chu EXAMINATION: [...] 03/30/24 1002 DD/ 1112 TD/TT: 03/27/24 1115 Spray Rig Operator: [facility] External Provider IMG XR PROCEDURES Edited Result - Final * XR Sacroiliac Joints 1-2 Views (03/27/2024 11:12 AM EST) Anatomical Region Laterality Modality Sacroiliac joint, Pelvis Radiogr aphic Imaging 03/27/2024 11:1 2 AM EST Narrative 03/30/2024 10:29 AM EST ? [facility] ? [address] ?[place], [place] [address] ?XRay Report ? Signed ? Patient: Jennifer Palmer ?MR#: [id number] ?? 0 ? : 1960 ?Acct:[id number] ? Age/Sex: 63 / F ?ADM Date: 03/27/24 ? Loc: HO.HOSX ? Attending Dr: Aleksandra Culp MD ? Ordering Physician: Aleksandra Chu ?? Date of Service: 03/27/24 ?? Procedure(s): XR sacroiliac joint 1-2V ?? Accession Number(s): [id number] ? cc: Emy Askew MD; Aleksandra Chu [...] DD/ 1112 ? TD/TT: 03/27/24 1115 ? Spray Rig Operator: ? Procedure Note Donmichelleter, Image - 03/30/2024 [facility] [address] [place] [address] Drive [address] [place] [address] XRay Report Signed Patient: Axel Palmer#: [id number] 0 : 9Acct:[id number] Age/Sex: 63 / FADM Date: 03/27/24 Loc: HO.HOSX Attending Dr: Aleksandra Culp MD Ordering Physician: Aleksandra Chu Date of Service: 03/27/24 Procedure(s): XR sacroiliac joint 1-2V Accession Number(s): [id number] cc: Emy Askew MD; Aleksandra Chu EXAMINATION: [...] 03/30/24 1027 DD/ 1112 TD/TT: 03/27/24 1115 Spray Rig Operator: [facility] External Provider IMG XR PROCEDURES Final Result * BI Mammogram Screening Tomosynthesis Bilateral (03/17/2024 1:00 PM EST) Anatomical Region Laterality Modality Breast Bilateral Mammography 03/17/2024 1:00 PM EST Narrative 03/28/2024 10:52 AM EST ? [facility] ? [address] ?[place] [address] ? Mammography Report ? Signed ? Patient: Palmer,Jennifer ?MR#: [id number] ?? 0 ? : 1960 ?Acct:[id number] ? Age/Sex: 63 / F ?ADM Date: 03/17/24 ? Loc: HO.MAMMO ? Attending Dr: Emy Goldsmith MD ? Ordering Physician: Emy Askew MD ?Re ?? sults: 1Negative ? Date of Service: 03/17/24 ?Follow Up: 1 Year From Orig ?? inal Mammogram ? Procedure(s): MM tomosynthesis screening BI ?? Accession Number(s): [id number] ? cc: Emy Askew MD ? EXAMINATION: [...] ??Sadia Monae DO ??03/28/2024 10:49 AM EST ? Dictated By: ?Sadia Monae DO ? Signed By: ?<Electronically signed by Sadia Monae, DO in OV> ? 03/28/24 1049 ? DD/ 1300 ? TD/TT: 03/17/24 1320 ? Spray Rig Operator: ? Procedure Note Donmichelleter, Image - 03/28/2024 [facility] [address] [place] [address] [place] [address] Mammography Report Signed Patient: Axel Palmer#: [id number] 0 : 9Acct:[id number] Age/Sex: 63 / FADM Date: 03/17/24 Loc: HO.MAMMO Attending Dr: Emy Goldsmith MD Ordering Physician: Emy Askew sults: 1Negative Date of Service: 03/17/24Follow Up: 1 Year From Orig inal Mammogram Procedure(s): MM tomosynthesis screening BI Accession Number(s): [id number] cc: Emy Askew MD EXAMINATION: MM SCREENING [...] 03/28/24 1049 DD/ 1300 TD/TT: 03/17/24 1320 Spray Rig Operator: Emy Goldsmith MD IMG BI PROCEDURES Final Result * (ABNORMAL) Hemoglobin A1c (12/25/2023 7:08 AM EDT) Hemoglobin A1c 8.2(H) <6.0 % [facility] Comment:Hemoglobin A1C Refer ence Range Adults: 4.8 - 6.0 % Non diabetic: < 6.0 % Goal: < 7.0 %Additional Action Suggested: > 8.0 %Note: Hemoglobin A1c results are invalid for patients with abnormal amounts of HbF. Blood transfusions may impact the HbA1c concentration in the patient sample. Estimated Average Glucose 189 mg/dL [facility] Comment:eAG = Estimated ave rage glucose which is %A1C expressed asaverage glucose, using the formula of the K8V-LaxshtaVnefmgl Glucose study (ADAG), Diabetes Care, Vol.31,#8,Aug. 2007 Blood Venous blood specimen / Unknown 12/25/2023 7:08 AM EDT 12/25/2023 7:09 AM EDT Emy Goldsmith MD LAB BLOOD ORDERAB LES Final Result [facility] [address] [place] [phone] * (ABNORMAL) Lipid Panel, Standard (12/25/2023 7:08 AM EDT) Triglycerides 232(H) <150 mg/dL [facility] Comment:Desirable Triglyceri de: less than 150 mg/dLBorderline High Triglyceride 150-199 mg/dLHigh Triglyceride: 200-499 mg/dLVery High Triglyceride: greater than or equal to 5OO mg/dL Cholesterol 154 <200 mg/dL [facility] Comment:Desirable Cholestero l: less than 200 mg/dLBorderline High Cholesterol: 200-239 mg/dLHigh Cholesterol: greater than 239 mg/dL LDL Cholesterol Calculated 64 <100 mg/dL [facility] Comment:Desirable LDL: less than 100 mg/dLNear Optimal/Above Optimal LDL: 110- 129 mg/dLBorderline High LDL: 130-159 mg/dLHigh LDL: 160-189 mg/dLVery High LDL: greater than or equal to 190 mg/dL HDL Cholesterol 44 >40 mg/dL [facility] Comment:Desirable HDL: great er than 40 mg/dL Note: This HDL assay may give artificially low results in patients with liver disease. Blood Venous blood specimen / Unknown 12/25/2023 7:08 AM EDT 12/25/2023 7:09 AM EDT us Emy Goldsmith MD LAB BLOOD ORDERAB LES Final Result [facility] [address] [place] [phone] * (ABNORMAL) Albumin, Random Urine W/Creatinine (12/25/2023 7:05 AM EDT) Creatinine, Urine 50.21 mg/dL [facility] Microalbumin Urine 78.0 mg/L [facility] Microalbum Creatinine Ratio Ur 155.3(H) <30 ug/mg cr [facility] Comment:Albumin/Creatinine R atio Reference Ranges: Normal: < 30 ug/mg creatinine Microalbuminuria: 30 - 300 ug/mg creatinineClinical Albuminuria: > 300 ug/mg creatinine Urine (Urine, Random) 12/25/2023 7:05 AM EDT 12/25/2023 7:49 AM EDT us Emy Goldsmith MD LAB URINE ORDERAB LES Final Result Performing Organization Address City/[facility]/ZIP Co de Phone Number [facility] [address] [place] [phone] * HPV mRNA E6/E7 w/Reflex to HPV Genotypes 16, 18/45 (05/27/2023 10:50 AM EDT) HPV nRNA E6/E7 Not Detected Not Detected [facility] Comment:Methodology: Transcr iption-Mediated AmplificationThis assay detects E6/E7 viral messenger RNA (mRNA) from 14high-risk HPV types (16,18,31,33,35,39,45,51,52,56,58,59,66,68).Cervical sources are required for HPV testing.If a vaginal source from a patient who has had atotal hysterectomy with removal of cervix wassubmitted, please contact the testing laboratoryfor alternative testing options.For additional information, please refer [email or web address](This link if provided for information/educational purposes only.)THIS TEST WAS PERFORMED AT:[facility] [place] [address] [id number] CAMARENA MD HPV mRNA E6/E7 [facility] HPV 16 RNA [facility] HPV 18/45 RNA [facility] 05/27/2023 10:5 0 AM EDT 05/28/2023 11:50 AM EDT us Alden Cai CNM LAB CYTOLOGY ORDERABLES F inal Result [facility] [address] [place] [address] [phone] * Pap Smear (05/27/2023 10:50 AM EDT) Swab Cervix uteri structure / Unknown 05/27/2023 10:50 AM EDT 05/28/2023 11:50 AM EDT [facility] - 06/09/2023 5:49 PM EDT ----- ------- Name: Jennifer Palmer ?Age/Sex: 62/F ? : 1960 Unit#: [id number] ?? Attend Dr: ALDEN CAI CNM ?Re05/27/23 ?Status: DEP REF ? Location: HO.HHCLNP ? Disch: ? ----- ------- SPEC : [id number] ? RECD: 05/28/23-1149 ? STATUS: ??SOUT ? REQ NUM: [id number] ? PRANAY: 05/27/23-1050 ? SUBM DR: ALDEN [...] 66, 68) ? HPV testing performed by [facility], [place], [place]. ??See reference laboratory ?? portion of the EMR for entire report. ?Clinical Information LMP: Postmenopausal Previous PAP test: Unknown date/findings ? Material Received ?? ThinPrep-Vaginal/Cervical ----- ------- Signed (signature on file) Esther Ness Nenita 06/09/23 5691 ? ----- ------- ? END OF REPORT ? us Alden Cai [facility] CYTOLOGY ORDERABLES F inal Result Performing Organization Address [facility] de Phone Number [facility] [address] [place], [place] [phone] * Hm Colonoscopy (05/09/2023 6:56 PM EST) us Historical Provider HEALTH MAINTENANCE Final Result * Hepatitis C Antibody Reflex (10/04/2022 9:42 AM EDT) Hepatitis C Antibody Nonreactive Nonreactive [facility] Comment:Antibodies to HCV no t detected; does not exclude early acuteHCV infection. 10/04/2022 9:42 AM EDT 10/04/2022 9:43 AM EDT Emy Goldsmith MD LAB BLOOD ORDERAB LES Final Result Performing Organization Address [facility] Co de Phone Number [facility] [address] [place] [address] [phone] from Last 3 Months or Most Recently Relevant to Health Maintenance Insurance [facility] AD[place] Care Teams Food Demonstrator Relationship Specialty Start Date End Date Emy Askew MD [address] [place] [address] PCP - General Internal Medicine 07/25/22
--- OUTSIDE RECORDS SUMMARY | 2024-06-04 10:27 | XMS_ITS | Encounter Summary ---
Author Organization [employer] Address [address] [place] [address] 7 [place] [address] Care Team Providers Care Loan Interviewer Mortgage Name Role Phone Kenya Sol [facility] Primary Care Provider [phone] Emy Askew MD Primary Care Pro vider Encounter Details Date Type Department Care Team (Late st Contact Info) Description 05/28/2022 Orders Only [facility] CHC MED & PEDS [address] [place], [place] [phone] Candy Miller LPN Social History Tobacco Use [...] Department Care Team (Late Contact Info) Description 07/16/2024 11:15 AM EDT Office Visit [facility] MEDICINE [address] [place], [place] [phone] Emy Askew MD [address] [place], [place] [phone] documented as of this encounter Visit Diagnoses Not on filedocumented in this encounter Care Teams Loan Interviewer Mortgage Relationship Specialty Start Date End Date Kenya Sol FNP [address] [place] [address] PCP - General Family Medicine 01/22/22 07/24/22 Emy Askew MD [address] [place] [address] PCP - General Internal Medicine 07/25/22 documented as of this encounter
--- OUTSIDE RECORDS SUMMARY | 2024-06-04 10:27 | XMS_ITS | Encounter Summary ---
Author Organization [employer] [facility] Address [address] [place] [address] 7t [place] [address] Care Team Providers Care Induction Heating Equipment Setter Name Role Phone [facility] Primary Care Provider Emy Askew MD Primary Care Pro vider Reason for Visit * Reason Onset Date Comments Appointment Request 06/07/2022 Encounter Details Date Type Department Care Team ([facility] st Contact Info) Description 06/07/2022 Telephone [facility] MEDICINE [address] [place] [address] [facility] [address] [place] [address] Appointment Request Social History Tobacco Use Types [...] with new provider. Please contact pt at [phone] documented in this encounter Plan of Treatment Upcoming Encounters Date Type Department Care Team (Late st Contact Info) Description 07/16/2024 11:15 AM EDT Office Visit [facility] MEDICINE [address] [place] [address] Emy Askew MD [address] [place] [address] documented as of this encounter Visit Diagnoses Not on filedocumented in this encounter Care Teams Induction Heating Equipment Setter Relationship Specialty Start Date End Date Kenya Sol FNP [address] [place] [address] PCP - General Family Medicine 01/22/22 07/24/22 Emy Askew MD [address] [place] [address] PCP - General Internal Medicine 07/25/22 documented as of this encounter
--- OUTSIDE RECORDS SUMMARY | 2024-06-04 10:27 | XMS_ITS | Encounter Summary ---
Author Organization [employer] Address [address] [facility] 7t [place] [address] Care Team Providers Care Lead Driver Name Role Phone Emy Askew MD Primary Care Pro vider Reason for Visit * Reason Comments Sore Throat Encounter Details Date Type Department Care Team ([facility] st Contact Info) Description 06/04/2024 10:00 AM EDT Office Visit [facility] WALK-IN CENTER [address] [place] [address] Kaden Jaime MD [address] [place] [address] Pharyngitis, unspecified etiology (Primary Dx) Social History Tobacco Use Types Packs/Day Years [...] AM EDT documented as of this encounter Last Filed [...] Mass Index 25.5 06/04/2024 9:31 AM EDT documented in this encounter Progress Notes * Kaden Jaime MD - 06/04/2024 10:00 AM EDT Subjective History was provided by the patient. Jennifer Palmer is a 63 y.o. female who presents for evaluation of symptoms of a URI. Symptoms include chills, sore throat, and tender neck glands . Onset of symptoms was 3 days ago, unchanged since that time. Associated negative symptoms include cough, fever, runny nose, congestion, nausea, vomiting, diarrhea, and ear pain. Evaluation to date: none. Treatment to date: none Underlying asthma and SOY, currently on Breo Ellipta and Albuterol prn. Allergic to Bactrim. Objective Vitals: 06/04/24 0931 BP: 133/89 BP Location: Left arm Patient Position: Sitting BP Cuff Size: Adult Pulse: 83 Resp: 16 Temp: 98.5 ??F (36.9 ??C) TempSrc: Oral SpO2: 95% Weight: 139 lb 6.4 oz (63.2 kg) Height: 5' 2 (1.575 m) Physical Exam Vitals reviewed. Constitutional: Appearance: Normal appearance. She is normal weight. HENT: Head: Normocephalic and atraumatic. Right Ear: Tympanic membrane, ear canal and external ear normal. Left Ear: Tympanic membrane, ear canal and external ear normal. Nose: Nose normal. No congestion or rhinorrhea. Mouth/Throat: Mouth: Mucous membranes are dry. Pharynx: Oropharynx is clear. Posterior oropharyngeal erythema present. No oropharyngeal exudate. Eyes: Extraocular Movements: Extraocular movements intact. Conjunctiva/sclera: Conjunctivae normal. Pupils: Pupils are equal, round, and reactive to light. Cardiovascular: Rate and Rhythm: Normal rate and regular rhythm. Heart sounds: Normal heart sounds. Pulmonary: Effort: Pulmonary effort is normal. Breath sounds: Normal breath sounds. Musculoskeletal: General: Normal range of motion. Cervical back: Normal range of motion and neck supple. Lymphadenopathy: Cervical: Cervical adenopathy (1cm, mobile, rubbery right anterior LAD) present. Skin: General: Skin is warm and dry. Neurological: General: No focal deficit present. Mental Status: She is alert and oriented to person, place, and time. Mental status is at baseline. Psychiatric: Mood and Affect: Mood normal. Behavior: Behavior normal. Thought Content: Thought content normal. Judgment: Judgment normal. Jennifer was seen today for sore throat. Diagnoses and all orders for this visit: Pharyngitis, unspecified etiology (Primary) - Influenza B (ID NOW Rapid Molecular) - Influenza A (ID NOW Rapid Molecular) - POCT Rapid COVID Ag - POCT rapid strep A manually resulted - Culture, Throat - amoxicillin (Amoxil) 500 MG capsule; Take 1 capsule (500 mg) by mouth every 12 (twelve) hours for10 days. Patient with a clinical presentation of pharyngitis Negative Strep test today, but clinical presentation of bacterial pharyngitis (also with lack of other URI symptoms) Rapid COVID-19 and Influenza A/B negative today Will presumptively treat with Amoxicillin 10-day course Potential adverse effects of the medication reviewed Throat Culture sent out Normal pulmonary exam and no respiratory distress Discussed supportive care with ample hydration, sleep position and rest OTC supportive medications reviewed Droplet precautions discussed Advised to contact the clinic if no improvement of symptoms Indications for UC/ER use reviewed documented in this encounter Plan of Treatment Upcoming Encounters Date Type Department Care Team (Late st Contact Info) Description 07/16/2024 11:15 AM EDT Office Visit [facility] MEDICINE [address] [place] [address] Emy Askew MD [address] [place] [address] Scheduled Orders Name Type Priority Associated Diagnoses Orde r Schedule Culture, Throat Microbiology Routine Pharyngitis, unspecified etiology Ordered: 06/04/2024 documented as of this encounter Procedures Procedure Name Priority Date/Time Associated Diagnosis Comments POCT INFLUENZA B (ID NOW RAPID MOLECULAR) Routine 06/04/2024 9:50 AM EDT Pharyngitis, unspecified etiology POCT INFLUENZA A (ID NOW RAPID MOLECULAR) Routine 06/04/2024 9:50 AM EDT Pharyngitis, unspecified etiology POCT RAPID COVID ANTIGEN Routine 06/04/2024 9:50 AM EDT Pharyngitis, unspecified etiology POCT RAPID STREP A Routine 06/04/2024 9: 50 AM EDT Pharyngitis, unspecified etiology documented in this encounter Results * POCT rapid strep A manually resulted (06/04/2024 9:50 AM EDT) [facility] Rapid Strep A Screen Negative Negative, None Detected Swab 06/04/2024 9:50 AM EDT us Kaden Jaime MD POINT OF CARE TEST ENTER/EDIT OR DERABLES Final Result * POCT Rapid COVID Ag (06/04/2024 9:50 AM EDT) [facility] Rapid COVID Ag Negative Swab 06/04/2024 9:50 AM EDT us Kaden Jaime MD POINT OF CARE TEST ENTER/EDIT OR DERABLES Final Result * Influenza A (ID NOW Rapid Molecular) (06/04/2024 9:50 AM EDT) [facility] Influenza A Negative Negative, Indeterminate [facility] Swab 06/04/2024 9:50 AM EDT us Kaden Jaime MD POINT OF CARE TEST ENTER/EDIT OR DERABLES Final Result Performing Organization Address [facility] [address]/[facility] Co de Phone Number [facility] [address] [place] [phone] * Influenza B (ID NOW Rapid Molecular) (06/04/2024 9:50 AM EDT) [facility] Influenza B Negative Negative, Indeterminate [facility] Swab 06/04/2024 9:50 AM EDT us Kaden Jaime MD POINT OF CARE TEST ENTER/EDIT OR DERABLES Final Result Performing Organization Address [facility] [address]/[facility] Co de Phone Number [facility] [address] [place] [phone] documented in this encounter Visit Diagnoses Diagnosis Pharyngitis, unspecified etiology- Primary documented in this encounter Additional Health Concerns Assessment Noted Time PHQ-9 Depression Total Score: 10 024 2:37 PM EDT documented as of this encounter Care Teams Lead Driver Relationship Specialty Start Date End Date Emy Askew MD [address] [place] [address] PCP - General Internal Medicine 07/25/22 documented as of this encounter
--- OUTSIDE RECORDS SUMMARY | 2024-06-04 10:27 | XMS_ITS | Encounter Summary ---
Author Organization [employer] Address [address] 7[address] [place] [address] Care Team Providers Care Donation Specialist Name Role Phone Emy Askew MD Primary Care Pro vider Encounter Details Date Type Department Care Team ([facility] st Contact Info) Description 02/23/2024 Orders Only [facility] MEDICINE [address] [place] [address] Provider, MD Waylon Social History Tobacco Use [...] 07/16/2024 11:15 AM EDT Office Visit [facility] MEDICINE [address] [place] [address] Emy Askew MD [address] [place] [address] documented as of this encounter Procedures Procedure [...] documented as of this encounter Care Teams Donation Specialist Relationship Specialty Start Date End Date Emy Askew MD [address] [place] [address] PCP - General Internal Medicine 07/25/22 documented as of this encounter
--- OUTSIDE RECORDS SUMMARY | 2024-06-04 10:27 | XMS_ITS | Encounter Summary ---
Author Organization [employer] Address [address] [place] [address] [place] [address] Care Team Providers Care Clinical Researcher Name Role Phone Emy Askew MD Primary Care Pro vider Reason for Visit * Reason Onset Date Comments pre-op paperwork 10/18/2022 Encounter Details Date Type Department Care Team ([facility] st Contact Info) Description 10/18/2022 Telephone [facility] MEDICINE [address] [place] [address] Emy Askew MD [address] [place] [address] pre-op paperwork Social History Tobacco Use Types [...] methotrexate and leflunomide??( 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 Hold am of surgery lasix,amytriptiline,lisinopril ??.HoldASA 5 days prior procedure and avoid NSAIDS 7 days prior procedure. Thanks documented in this encounter Plan of Treatment Upcoming Encounters Date Type Department Care Team (Late st Contact Info) Description 07/16/2024 11:15 AM EDT Office Visit [facility] MEDICINE [address] [place] [address] Emy Askew MD [address] [place] [address] documented as of this encounter Visit Diagnoses Not on filedocumented in this encounter Additional Health Concerns Assessment Noted Time PHQ-9 Depression Total Score: 16 023 10:16 AM EDT documented as of this encounter Care Teams Clinical Researcher Relationship Specialty Start Date End Date Emy Askew MD [address] [place] [address] PCP - General Internal Medicine 07/25/22 documented as of this encounter
--- OUTSIDE RECORDS SUMMARY | 2024-06-04 10:27 | XMS_ITS | Encounter Summary ---
Author Organization [employer] [facility] Address [address] [place] [address] [facility] [place] [address] Care Team Providers Care Rug Underlay Machine Operator Name Role Phone Cyn Bosch MD Primary Care Provider Kenya Delong [facility] Primary Care Provider [phone] Emy Askew MD Primary Care Pro vider Encounter Details Date Type Department Care Team (Latest Contact Info) Description 10/26/2021 Abstract [facility] CONVERSIONS Dental, Provider, DDS Social History Tobacco [...] Description 07/16/2024 11:15 AM EDT Office Visit [facility] MEDICINE [address] [place] [address] Emy Askew MD [address] [place], [place] [phone] documented as of this encounter Visit Diagnoses Not on filedocumented in this encounter Care Teams Rug Underlay Machine Operator Relationship Specialty Start Date End Date Cyn Bosch MD PCP - General Family Medicine 08/20/19 01/21/22 Kenya Sol FNP [address] [place] [address] PCP - General Family Medicine 01/22/22 07/24/22 Emy Askew MD [address] [place] [address] PCP - General Internal Medicine 07/25/22 documented as of this encounter
--- OUTSIDE RECORDS SUMMARY | 2024-06-04 10:27 | XMS_ITS | Encounter Summary ---
Author Organization [email or web address] [facility] Address [address] [place] [address] 7t [place] [address] Care Team Providers Care Insulation Extruder Operator Name Role Phone [facility] Primary Care Provider [phone] Emy Askew MD Primary Care Pro vider Reason for Visit * Reason Onset Date Comments Med Refill 05/11/2022 Encounter Details Date Type Department Care Team (Late st Contact Info) Description 05/11/2022 Telephone [facility] MEDICINE [address] [place] [address] [facility] [address] [place], [place] [phone] Med Refill Social History Tobacco Use Types [...] has lost the device. Please sent to [facility] [place], [place] - [address] [place] [address] documented in this encounter Plan of Treatment Upcoming Encounters Date Type Department Care Team ([facility] st Contact Info) Description 07/16/2024 11:15 AM EDT Office Visit [facility] MEDICINE [address] [place] [address] Emy Askew MD [address] [place] [address] documented as of this encounter Visit Diagnoses Not on filedocumented in this encounter Care Teams Insulation Extruder Operator Relationship Specialty Start Date End Date EbenezerKenya FNP [address] [place] [address] PCP - General Family Medicine 01/22/22 07/24/22 Emy Askew MD [address] [place] [address] PCP - General Internal Medicine 07/25/22 documented as of this encounter
--- OUTSIDE RECORDS SUMMARY | 2024-06-04 10:27 | XMS_ITS | Encounter Summary ---
Author Organization [employer] Address [address] [place] [address] [place] [address] Care Team Providers Care Brokerage Manager Name Role Phone Emy Askew MD Primary Care Pro vider Reason for Visit * Reason Onset Date Comments Triage 07/31/2022 Encounter Details Date Type Department Care Team ([facility] st Contact Info) Description 07/31/2022 Telephone [facility] MEDICINE [address] [place] [address] Emy Askew MD [address] [place] [address] Triage Social History Tobacco Use Types Packs/Day [...] The caller accepted this outcome Patient speaks latvian. documented in this encounter Plan of Treatment Upcoming Encounters Date Type Department Care Team (Late st Contact Info) Description 07/16/2024 11:15 AM EDT Office Visit [facility] MEDICINE [address] [place] [address] [phone] Emy Askew MD [address] [place] [address] [phone] documented as of this encounter Visit Diagnoses Not on filedocumented in this encounter Care Teams Brokerage Manager Relationship Specialty Start Date End Date Emy Askew MD [address] [place] [address] [phone] PCP - General Internal Medicine 07/25/22 documented as of this encounter
--- OUTSIDE RECORDS SUMMARY | 2024-06-04 10:27 | XMS_ITS | Encounter Summary ---
Author Organization [facility] [facility] Address [address] [place] [address] 7t [place] [address] Care Team Providers Care Plant Operations Engineer Name Role Phone Ebenezer [facility] Primary Care Provider [phone] Emy Askew MD Primary Care Pro vider Encounter Details Date Type Department Care Team (Late st Contact Info) Description 03/26/2022 Orders Only [facility] MEDICINE [address] [place], [place] [phone] Lizett Cannon LPN Social History Tobacco Use [...] Description 07/16/2024 11:15 AM EDT Office Visit [facility] MEDICINE [address] [place], [place] [phone] Emy Askew MD [address] [place], [place] [phone] documented as of this encounter Visit Diagnoses Not on filedocumented in this encounter Care Teams Plant Operations Engineer Relationship Specialty Start Date End Date Kenya Sol FNP [address] [place] [address] PCP - General Family Medicine 01/22/22 07/24/22 Emy Askew MD [address] [place] [address] PCP - General Internal Medicine 07/25/22 documented as of this encounter
--- OUTSIDE RECORDS SUMMARY | 2024-06-04 10:27 | XMS_ITS | Data Portability ---
Author Organization [place] - [facility], Allergy Address [address] [place] [phone] Assessment No assessment recorded. Plan of Treatment Reminders Order Date Submit Date Provider Last Modified By Organization Details Last Modified Time Details Appointments None recorded. Lab None recorded. Referral None recorded. Procedures None recorded. Surgeries None recorded. Imaging [place], modified barium swallow study [address] [place] [address] Diagnosit Imaging Dept, [address] [place] [address], [address], 5 11:51:40 Medication Orders None recorded. Patient TargetsNo targets recorded. Patient InstructionsNo instructions recorded. Reason for Referral None Reported. Problems Name Problem SNOMED Code Status Onset Date Resolution Date Notes Provider Name and Address Organization Details Recorded Time Dysphagia 57690887 Active 2018 Other dysphagia; Note: Date Diagnosed: 05/13/2018 9:47 AM (R13.19) Not Available [facility] 4 02:27:43 Disturban ce of salivary secretion 61865314 Active 2018 Xerostomia ; Note: Date Diagnosed: 05/13/2018 9:47 AM (K11.7) Not Available [facility] 4 02:27:54 Dysphonia 85871921 Active 2017 Hoarseness ; Note: Date Diagnosed: 02/17/2018 9:52 AM (R49.0) Not Available [facility] 4 02:27:44 Chronic sialadeni tis 244252251 Active 2016 Chronic sialoadeni tis; Note: Date Diagnosed: 07/04/2016 2:17 PM (K11.23) Not Available [facility] 4 02:27:48 Sj? ? 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 5 13:35:47 Problem Notes None recorded. Procedures Surgical History Date Name Laterality Status Provider Name and Address Organization Details Recorded Time 03/13/2024 FFL_RE completed UMESH DIAZ MD [address] [place] [address], [phone], [facility] 03/13/2024 13:36:13 Imaging Results None recorded. Procedure Notes None recorded. Medical Equipment None Reported. Allergies Allergen ID Allergen Name Allergen Category Reaction Reaction Severity Criticality Documentation Date Start Date Code Code System Note Provider Name and Address Organization Details Recorded Time 00936 Bactrim medicatio n other Not available Not available 07/16/2023 14199 9 RxNorm React ion: unkno wn, unspe cifie d;; Not Available [facility] 4 00:55:51 33013 codeine sulfate medicatio n other Not available Not available 07/16/2023 44509 RxNorm React ion: unkno wn, unspe cifie d;; Not Available [facility] 4 00:55:56 Medications Name Sig Start Date Stop Date Status Note LastModified by Organization Details LastModified Time medbox status USE DIRECTED active Not Available Not Available No t Available furosemid e 40 mg tablet TAKE 1 TABLET BY MOUTH EVERY MORNING active Not Available Not Available No t Available Augmentin 875 mg-125 mg tablet 2017 active Medicati on ID: 744863 D uration Value: 5 Prescri bed By [...] nebulizat ion 2018 active Medicati on ID: 143892 D uration Value: 5 Brand Name: albutero [...] mg tablet 2018 active Medicati on ID: 519409 D uration Value: 30 Brand Name: lisinopr [...] mg tablet 2018 active Medicati on ID: 700534 D uration Value: 30 Brand Name: buspiron e Send Method: E-Prescr ibed Sub s Allowed: subs OK Speci al Instruct ion: TAKE 1 TABLET BY MOUTH THREE TIMES DAILY NEEDED ANXIETY Medicati onGeneri cName: buspiron e Not Available Not Available Not Available Tiazac 120 mg capsule,e xtended release 02/04 completed Medicati on ID: 92307 Re ason: () Brand Name: Tiazac S [...] elayed release 2018 active Medicati on ID: 106723 D uration Value: 30 Brand Name: omeprazo le Send Method: E-Prescr ibed Sub s Allowed: subs OK Speci al Instruct ion: TAKE 1 CAPSULE TWICE DAILY IN THE MORNING AND IN THE EVENING 1 HORA AN KALEN DE LAS COMIDAS Medicati onGeneri cName: omeprazo le Not Available Not Available Not Available Aspirin Childrens 81 mg chewable tablet 2013 active Medicati on ID: 51052 Br and Name: Aspirin Children s Send [...] mg tablet 2018 active Medicati on ID: 944774 D uration Value: 30 Brand Name: levon post ne Send Method: E-Prescr ibed Sub s Allowed: subs OK Speci al Instruct ion: TAKE 2 TABLETS BY MOUTH ONCE DAILY IN THE MORNING Medicati onGeneri cName: levon jenkinsqui ne Not Available Not Available Not Available ibuprofen 600 mg tablet 2018 active Medicati on ID: 126286 D uration Value: 30 Brand Name: ibuprofe [...] 24 hr 2018 active Medicati on ID: 281315 D uration Value: 30 Brand Name: metformi n Send Method: E-Prescr ibed Sub s Allowed: subs OK Speci al Instruct ion: TAKE 1 TABLET BY MOUTH TWICE DAILY IN THE MORNING AND IN THE EVENING W ITH FOOD Med icationG enericNa me: metformi n Not Available Not Available Not Available Ambien 5 mg tablet 2013 active Medicati on ID: 91318 Br and Name: Ambien S end Method: [...] mg capsule 2013 active Medicati on ID: 91550 Br and Name: Kade Rivera end Method: [...] inhalatio n 2018 active Medicati on ID: 160107 D uration Value: 30 Brand Name: Breo [...] subcutane ous 2018 active Medicati on ID: 181489 D uration Value: 35 Brand Name: Humulin [...] Updated DateTime 03/13/2024 157.48 cm 26 kg/m2 11464.12 g Shanetll Wise [place] - [facility] 03/13/2024 13:27:58 Social History None recorded. Functional Status None recorded. Mental Status None recorded. Family History Nothing Reported. Medical History No medical history recorded. Gynecological HistoryNo gynecological history recorded. Obstetrics History GPAL:G 0 P 0 0 0 0 Past Encounters Encounter ID Performer Location Encounter Start Date Encounter Closed Date Diagnosis/Indication Diagnosis SNOMED-CT Code Diagnosis ICD10 Code Diagnosis Note [id number] UMESH DIAZ MD [facility] [address] [place] [address] 03/13/2024 13:18:07 03/13/2024 13:52:50 Oropharyngeal dysphagia 79498462 R13.12 Exam and laryngosco py were normal. I recommend a swallow study (MBS) to reassess her swallow. F/u after. If normal I would suggest GI referral especially given her Sjogrens. Sj? ? ?gren's syndrome 58679788 M35.00 Encouraged hydration. Will consider GI referral [...] Mendez Member ID Guarantor Name 03/13/2024 1 [facility] - DOS ON OR AFTER 2022 - MEDICARE ADVANTAGE [place] & [place] (MEDICARE REPLACEMENT/AD VANTAGE - PPO) Jennifer Gu [id number] Jennifer Gu Notes Date Note Type Note [...] and dry mouth. UMESH DIAZ MD [address], [address], [place] - [facility] 03/13/2024 13:43:36 OBGyn Episode No OBEpisode recorded.
--- OUTSIDE RECORDS SUMMARY | 2024-06-04 10:27 | XMS_ITS | Encounter Summary ---
Author Organization [employer] Address [address] [facility] 7t [place] [address] Care Team Providers Care Mold Forms Builder Name Role Phone Emy Askew MD Primary Care Pro vider Reason for Visit * Reason Onset Date Comments Results 05/27/2024 Encounter Details Date Type Department Care Team ([facility] Contact Info) Description 05/27/2024 Telephone [facility] MEDICINE [address] [place] [address] Kathryn Yusuf CNM [address] [place] [address] Results Social History Tobacco Use Types Packs/Day Years [...] encounter Miscellaneous Notes * Telephone Encounter - Doris Henry RN - 06/01/2024 9:34 AM EDT TC placed to pt but the mailbox was full and can't accept any new messages. This is the third attempt to contact the pt. * Telephone Encounter - Doris Henry RN - 05/29/2024 9:37 AM EDT TC placed to pt but VM box is full and can't accept any new messages at this time. Will retask thismessage for one final attempt to contac ----- Message from Kathryn Yusuf sent at 05/27/2024 1:12 PM EDT ----- Please let Jennifer know her vaginal testing was negative. Let's try increasing her vaginal estrogen tothree times a week and see it that helps. Let me know if no improvement in the next month or if symptoms worsen. Thanks! * Telephone Encounter - Doris Henry RN - 05/28/2024 10:36 AM EDT TC placed to pt with S industrial maintenance manager #[id number] but the VM box was full and can't accept any new messages at this time. Will postpone until 05/29 for one final attempt to contact. * Telephone Encounter - Kaylen Mane RN - 05/27/2024 4:11 PM EDT Telephone call to pt to advise of below results. No answer, mailbox full. Will task to call again. * Telephone Encounter - Kaylen Mane RN - 05/27/2024 4:08 PM EDT ----- Message from Kathryn Yusuf sent at 05/27/2024 1:12 PM EDT ----- Please let Jennifer know her vaginal testing was negative. Let's try increasing her vaginal estrogen tothree times a week and see it that helps. Let me know if no improvement in the next month or if symptoms worsen. Thanks! documented in this encounter Plan of Treatment Upcoming Encounters Date Type Department Care Team (Late st Contact Info) Description 07/16/2024 11:15 AM EDT Office Visit [facility] MEDICINE [address] [place] [address] Emy Askew MD [address] [place] [address] documented as of this encounter Visit Diagnoses Not on filedocumented in this encounter Additional Health Concerns Assessment Noted Time PHQ-9 Depression Total Score: 10 024 2:37 PM EDT documented as of this encounter Care Teams Mold Forms Builder Relationship Specialty Start Date End Date Emy Askew MD [address] [place] [address] [place] [address] PCP - General Internal Medicine 07/25/22 documented as of this encounter
--- OUTSIDE RECORDS SUMMARY | 2024-06-04 10:27 | XMS_ITS | Encounter Summary ---
Author Organization [employer] Address [address] [place] [address] 7 [place] [address] Care Team Providers Care Prop Attendant Name Role Phone Emy Askew MD Primary Care Pro vider Reason for Visit * Reason Comments Med Refill Encounter Details Date Type Department Care Team ([facility] Contact Info) Description 02/14/2024 Refill [facility] MEDICINE [address] [place] [address] Emy Askew MD 230 [place] [address] Social History Tobacco Use Types Packs/Day Years [...] Description 07/16/2024 11:15 AM EDT Office Visit [facility] MEDICINE [address] [place] [phone] Emy Askew MD [address] [place] [address] documented as of this encounter Visit Diagnoses Not on filedocumented in this encounter Additional Health Concerns Assessment Noted Time PHQ-9 Depression Total Score: 10 024 2:37 PM EDT documented as of this encounter Care Teams Prop Attendant Relationship Specialty Start Date End Date Emy Askew MD [address] [place] [address] [phone] PCP - General Internal Medicine 07/25/22 documented as of this encounter
--- OUTSIDE RECORDS SUMMARY | 2024-06-04 10:27 | XMS_ITS | Encounter Summary ---
Author Organization [employer] Address [address] [facility] [address] 7t [place] [address] Care Team Providers Care Correctional Agency Director Name Role Phone Emy Askew MD Primary Care Pro vider Encounter Details Date Type Department Care Team (Late st Contact Info) Description 08/07/2023 Orders Only [facility] MED & PEDS [address] [place] [address] Valeria Armas FNP [address] [place] [address] Social History Tobacco Use Types Packs/Day Years [...] 11:15 AM EDT Office Visit [facility] MEDICINE [address] [place] [phone] Emy Askew MD [address] [place] [address] documented as of this encounter Visit Diagnoses Not on filedocumented in this encounter Additional Health Concerns Assessment Noted Time PHQ-9 Depression Total Score: 16 023 10:16 AM EDT documented as of this encounter Care Teams Correctional Agency Director Relationship Specialty Start Date End Date Emy Askew MD [address] [place] [phone] PCP - General Internal Medicine 07/25/22 documented as of this encounter
--- OUTSIDE RECORDS SUMMARY | 2024-06-04 10:27 | XMS_ITS | Encounter Summary ---
Author Organization [facility] Address [address] [place] [address] [address] [place] [address] Care Team Providers Care Registered Art Therapist Name Role Phone Cyn Bosch MD Primary Care Provider Kenya Delong [facility] Primary Care Provider [phone] Emy Askew MD Primary Care Pro vider Encounter Details Date Type Department Care Team (Latest Contact Info) Description 09/30/2018 Abstract [facility] CONVERSIONS Dental, Provider, [...] 07/16/2024 11:15 AM EDT Office Visit [facility] MEDICINE 230 [place] [address] Emy Askew MD [address] [place], [place] [phone] documented as of this encounter Visit Diagnoses Not on filedocumented in this encounter Care Teams Registered Art Therapist Relationship Specialty Start Date End Date Cyn Bosch MD PCP - General Family Medicine 08/20/19 01/21/22 Kenya Sol FNP 230 [place] [address] PCP - General Family Medicine 01/22/22 07/24/22 Emy Askew MD [address] [place] [address] [place] [address] PCP - General Internal Medicine 07/25/22 documented as of this encounter
--- OUTSIDE RECORDS SUMMARY | 2024-06-04 10:27 | XMS_ITS | Clinical Summary ---
Author Organization [facility] Address [address] [place] [address] Phone Care Team Providers Care Cradle Placer Name Role Phone Berkley Bird MD Primary [...] 1:30 PM EST Office Visit Orthopedic Surgery [facility] [address] [phone] Magen Velasco DPM Controlled type 2 diabetes [...] 06/08/2024 2:00 PM EDT Office Visit Orthopedic [facility] [address] [phone] Magen Velasco DPM [address] [address] Health Maintenance Due Date Last Done Comments Breast Cancer Screening 1958 Diabetes: Annual Foot Exam 1968 Diabetes: Annual Retina Eye Exam 1968 COVID-19 Vaccine ( season) 2023 03/20/2023, 09/24/2022, 10/04/2021, Additional history exists Colorectal Cancer Screening: Colonoscopy 01/22/2024 Falls Risk Assessment 01/22/2024 Hepatitis C Screening 01/22/2024 Medicare Annual Wellness Visit 01/22/2024 Osteoporosis Screening (Bone Density Screening) 01/22/2024 Social Influencers of Health Screening 01/22/2024 Diabetes: Annual Urine Albumin-Creatinine Ratio (uACR) 04/06/2024 Diabetes: Blood Sugar Control Test (HGBA1C) 06/24/2024 12/25/2023 Influenza Vaccine (Season Ended) 2024 12/05/2022, 12/15/2020, 12/01/2019, Additional history exists Depression Screening 11/11/2024 11/12/2023 Diabetes: Annual GFR [...] Years) Completed 09/24/2022, 12/18/2017, 03/11/2006 RSV Immunization Adult Patients Completed 06/01/2023, 06/01/2023 HIB Vaccines Aged Out [...] mmol/L LAB CHEMISTRY METHOD 04/06/2024 6:42 PM [facility] Potassium 3.5 3.5 - 5.5 mmol/L LAB CHEMISTRY METHOD 04/06/2024 6:42 PM [facility] Chloride 102 96 - 110 mmol/L LAB CHEMISTRY METHOD 04/06/2024 6:42 PM [facility] CO2 31 21 - 32 mmol/L LAB CHEMISTRY METHOD 04/06/2024 6:42 PM [facility] Anion Gap 5 3 - 11 LAB CHEMISTRY METHOD 04/06/2024 6:42 PM [facility] Glucose 183(H) 70 - 100 mg/dL LAB CHEMISTRY METHOD 04/06/2024 6:42 PM [facility] BUN 17 5 - 25 mg/dL LAB CHEMISTRY METHOD 04/06/2024 6:42 PM [facility] Creatinine 0.94 0.50 - 1.10 mg/dL LAB CHEMISTRY METHOD 04/06/2024 6:42 PM [facility] eGFR 67 >=60 mL/min/1. 73m2 LAB CHEMISTRY METHOD 04/06/2024 6:42 PM [facility] Comment:Calculation based on the??Chronic Kidney Disease Epidemiology Collaboration (CKD-EPI) equation refit??without adjustment for race. BUN/Creatinine Ratio 18.1 LAB CHEMISTRY METHOD 04/06/2024 6:42 PM [facility] Calcium 10.3 8.5 - 10.5 mg/dL LAB CHEMISTRY METHOD 04/06/2024 6:42 PM [facility] AST (SGOT) 15 10 - 42 unit/L LAB CHEMISTRY METHOD 04/06/2024 6:42 PM [facility] ALT (SGPT) 22 10 - 60 unit/L LAB CHEMISTRY METHOD 04/06/2024 6:42 PM [facility] Alkaline Phosphatase 140(H) 42 - 121 unit/L LAB CHEMISTRY METHOD 04/06/2024 6:42 PM [facility] Total Protein 7.6 6.0 - 8.0 g/dL LAB CHEMISTRY METHOD 04/06/2024 6:42 PM [facility] Albumin 3.6 3.2 - 5.0 g/dL LAB CHEMISTRY METHOD 04/06/2024 6:42 PM [facility] Total Bilirubin 0.3 0.0 - 1.4 mg/dL LAB CHEMISTRY METHOD 04/06/2024 6:42 PM [facility] Blood Venous blood specimen / Unknown Venipuncture / Unknown 04/06/2024 2:00 PM EST 04/06/2024 2:00 PM EST Magen Velasco DP LAB BLOOD ORDERABLES Final Result [facility] [address] [place] [address], from [place] [address] [place] [address] [place] [address] [facility] MEDICARE Member Subscriber Plan / Payer (Ef fective 2023-Present) Name:Jennifer Palmer Relation to Subscriber:Self Name:Jennifer Palmer Payer ID:[id number] Group ID:[id number] Type:Not on file Address: [facility] [address] [address] Care Teams Cradle Placer Relationship Specialty Start Date End Date Berkley Brid MD [address] [address] PCP - General Internal Medicine 02/20/24
--- OUTSIDE RECORDS SUMMARY | 2024-06-04 10:27 | XMS_ITS | Encounter Summary ---
Author Organization [employer] Address [address] [place] [address] 7 [place] [address] Care Team Providers Care Salvationist Name Role Phone Emy Askew MD Primary Care Pro vider Reason for Visit * Reason Comments Med Refill Encounter Details Date Type Department Care Team ([facility] st Contact Info) Description 02/09/2023 Refill [facility] MEDICINE [address] [place] [address] Emy Askew MD [address] [place] [address] Social History Tobacco Use Types Packs/Day Years [...] Description 07/16/2024 11:15 AM EDT Office Visit [facility] MEDICINE [address] [place] [phone] Emy Askew MD [address] [place] [address] documented as of this encounter Visit Diagnoses Not on filedocumented in this encounter Additional Health Concerns Assessment Noted Time PHQ-9 Depression Total Score: 16 023 10:16 AM EDT documented as of this encounter Care Teams Salvationist Relationship Specialty Start Date End Date Emy Askew MD [address] [place] [address] PCP - General Internal Medicine 07/25/22 documented as of this encounter
[2024-06-04 12:02] LABS: Anion Gap 11 (12-20); Blood Urea Nitrogen 20 mg/dL (9-16); Calcium 9.2 mg/dL (8.4-10.2); Carbon Dioxide 26 mmol/L (22-29); Chloride 109 mmol/L (96-108); Estimated Glomerular Filt Rate > 60; Glucose Random 165 mg/dL (60-115); Sodium 143 mmol/L (135-145)
== END 2024-06-04 09:50 | disposition home or self-care (01) ==
LOC: HO.HHCL 09:49
PROVIDERS: Visit Provider Internal Medicine Cardiovascular Disease
DX: R06.02 Shortness of breath (principal)
CPT/HCPCS: 36415; 80048; 87070; 87147

== ENCOUNTER 2024-06-10 09:12 | Outpatient (REF) | payer OTHER, SELFPAY ==
--- NOTE | ~2024-06-10 | XR_ITS ---
EXAMINATION: XR CERVICAL SPINE CLINICAL INFORMATION: Pain COMPARISON: December 04, 2016. TECHNIQUE: 3 views of the cervical spine were obtained. FINDINGS: Craniocervical junction is intact. No acute cortical disruption or malalignment. Facet joint hypertrophy C7-T1. Grade 1 anterolisthesis C5-6. No lytic or blastic lesions. Upper airway is patent. XR/XR cervical spine 3V IMPRESSION: Grade 1 anterolisthesis C5-6. Electronically signed by: Brock Lauren MD 06/10/2024 09:39 AM EDT
--- OUTSIDE RECORDS SUMMARY | 2024-06-10 09:48 | XMS_ITS | Encounter Summary ---
Author Organization [employer] Address [address] [place] [address] [place] [address] Care Team Providers Care Special Machine Stitcher Name Role Phone Emy Askew MD Primary Care Pro vider Reason for Visit * Reason Onset Date Comments pre-op paperwork 10/18/2022 Encounter Details Date Type Department Care Team ([facility] st Contact Info) Description 10/18/2022 Telephone [facility] MEDICINE [address] [place] [address] Emy Askew MD [address] [place] [address] pre-op paperwork Social History Tobacco Use Types [...] methotrexate and leflunomide??( 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 Hold am of surgery lasix,amytriptiline,lisinopril ??.HoldASA 5 days prior procedure and avoid NSAIDS 7 days prior procedure. Thanks documented in this encounter Plan of Treatment Upcoming Encounters Date Type Department Care Team (Late st Contact Info) Description 07/16/2024 11:15 AM EDT Office Visit [facility] MEDICINE [address] [place] [phone] Emy Askew MD [address] [place] [phone] documented as of this encounter Visit Diagnoses Not on filedocumented in this encounter Additional Health Concerns Assessment Noted Time PHQ-9 Depression Total Score: 16 023 10:16 AM EDT documented as of this encounter Care Teams Special Machine Stitcher Relationship Specialty Start Date End Date Emy Askew MD [address] [place] [address] PCP - General Internal Medicine 07/25/22 documented as of this encounter
--- OUTSIDE RECORDS SUMMARY | 2024-06-10 09:48 | XMS_ITS | Encounter Summary ---
Author Organization [employer] Address [address] [place] [address] 7 [place] [address] Care Team Providers Care Individual Small Group Instructor Name Role Phone Emy Askew MD Primary Care Pro vider Reason for Visit * Reason Comments Med Refill Encounter Details Date Type Department Care Team ([facility] Contact Info) Description 02/14/2024 Refill [facility] [address] [place] [address] Emy Askew MD [address] [place] [address] Social History Tobacco Use Types Packs/Day Years [...] 07/16/2024 11:15 AM EDT Office Visit [facility] MEDICINE [address] [place] [address] [phone] Emy Askew MD [address] [place] [phone] documented as of this encounter Visit Diagnoses Not on filedocumented in this encounter Additional Health Concerns Assessment Noted Time PHQ-9 Depression Total Score: 10 024 2:37 PM EDT documented as of this encounter Care Teams Individual Small Group Instructor Relationship Specialty Start Date End Date Emy Askew MD [address] [place] [address] [phone] PCP - General Internal Medicine 07/25/22 documented as of this encounter
--- OUTSIDE RECORDS SUMMARY | 2024-06-10 09:48 | XMS_ITS | Data Portability ---
Author Organization [place] [facility], Allergy Address [address] [place] [address] Assessment No assessment recorded. Plan of Treatment Reminders Order Date Submit Date Provider Last Modified By Organization Details Last Modified Time Details Appointments None recorded. Lab None recorded. Referral None recorded. Procedures None recorded. Surgeries None recorded. Imaging [place], modified barium swallow study [address] [place] [address] Diagnosit Imaging Dept, [address] [place] [address], [address], 5 11:51:40 Medication Orders None recorded. Patient TargetsNo targets recorded. Patient InstructionsNo instructions recorded. Reason for Referral None Reported. Problems Name Problem SNOMED Code Status Onset Date Resolution Date Notes Provider Name and Address Organization Details Recorded Time Dysphagia 57579394 Active 2018 Other dysphagia; Note: Date Diagnosed: 05/13/2018 9:47 AM (R13.19) Not Available [facility] 4 02:27:43 Disturban ce of salivary secretion 94624828 Active 2018 Xerostomia ; Note: Date Diagnosed: 05/13/2018 9:47 AM (K11.7) Not [facility] 4 02:27:54 Dysphonia 16134157 Active 2017 Hoarseness ; Note: Date Diagnosed: 02/17/2018 9:52 AM (R49.0) Not [facility] 4 02:27:44 Chronic sialadeni tis 707934886 Active 2016 Chronic sialoadeni tis; Note: Date Diagnosed: 07/04/2016 2:17 PM (K11.23) Not Available [facility] 4 02:27:48 Sj? ? 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 2013 Diseases of the salivary glands: Hypertroph y; CMS Risk: moderate risk CMS Treatment: establishe d problem (to examiner): stable or improved N ote: Date Diagnosed: 12/30/2013 2:35 PM (527.1) Not Available [facility] 4 02:27:37 Bilateral hearing loss 44794925 Active 2018 Other specified hearing loss, bilateral; Note: Date Diagnosed: 08/12/2018 10:01 AM (H91.8X3) Not Available [facility] 4 02:27:41 Oropharyn geal dysphagia 02422985 Active 2024 UMESH DIAZ MD [address] [place] [address], [phone] , [facility] 5 13:35:47 Problem Notes None recorded. Procedures Surgical History Date Name Laterality Status Provider Name and Address Organization Details Recorded Time 03/13/2024 FFL_RE completed UMESH DIAZ MD [address] [place] [address], [phone], [facility] 03/13/2024 13:36:13 Imaging Results None recorded. Procedure Notes None recorded. Medical Equipment None Reported. Allergies Allergen ID Allergen Name Allergen Category Reaction Reaction Severity Criticality Documentation Date Start Date Code Code System Note Provider Name and Address Organization Details Recorded Time 37600 Bactrim medicatio n other Not available Not available 07/16/2023 23487 9 RxNorm React ion: unkno wn, unspe cifie d;; Not Available [facility] 4 00:55:51 18958 codeine sulfate medicatio n other Not available Not available 07/16/2023 01207 RxNorm React ion: unkno wn, unspe cifie d;; Not Available [facility] 4 00:55:56 Medications Name Sig Start Date Stop Date Status Note LastModified by Organization Details LastModified Time medbox status USE DIRECTED active Not Available Not Available No t Available furosemid e 40 mg tablet TAKE 1 TABLET BY MOUTH EVERY MORNING active Not Available Not Available No t Available Augmentin 875 mg-125 mg tablet 2017 active Medicati on ID: 780128 D uration Value: 5 Prescri bed By [...] nebulizat ion 2018 active Medicati on ID: 765132 D uration Value: 5 Brand Name: albutero [...] mg tablet 2018 active Medicati on ID: 512533 D uration Value: 30 Brand Name: lisinopr [...] mg tablet 2018 active Medicati on ID: 457672 D uration Value: 30 Brand Name: buspiron e Send Method: E-Prescr ibed Sub s Allowed: subs OK Speci al Instruct ion: TAKE 1 TABLET BY MOUTH THREE TIMES DAILY NEEDED ANXIETY Medicati onGeneri cName: buspiron e Not Available Not Available Not Available Tiazac 120 mg capsule,e xtended release 02/04 completed Medicati on ID: 00404 Re ason: () Brand Name: Tiazac S [...] elayed release 2018 active Medicati on ID: 257509 D uration Value: 30 Brand Name: omeprazo le Send Method: E-Prescr ibed Sub s Allowed: subs OK Speci al Instruct ion: TAKE 1 CAPSULE TWICE DAILY IN THE MORNING AND IN THE EVENING 1 HORA AN KALEN DE LAS COMIDAS Medicati onGeneri cName: omeprazo le Not Available Not Available Not Available Aspirin Childrens 81 mg chewable tablet 2013 active Medicati on ID: 24207 Br and Name: Aspirin Children s Send [...] mg tablet 2018 active Medicati on ID: 245605 D uration Value: 30 Brand Name: levon post ne Send Method: E-Prescr ibed Sub s Allowed: subs OK Speci al Instruct ion: TAKE 2 TABLETS BY MOUTH ONCE DAILY IN THE MORNING Medicati onGeneri cName: levon jenkinsqui ne Not Available Not Available Not Available ibuprofen 600 mg tablet 2018 active Medicati on ID: 234040 D uration Value: 30 Brand Name: ibuprofe [...] 24 hr 2018 active Medicati on ID: 059213 D uration Value: 30 Brand Name: metformi n Send Method: E-Prescr ibed Sub s Allowed: subs OK Speci al Instruct ion: TAKE 1 TABLET BY MOUTH TWICE DAILY IN THE MORNING AND IN THE EVENING W ITH FOOD Med icationG enericNa me: metformi n Not Available Not Available Not Available Ambien 5 mg tablet 2013 active Medicati on ID: 26680 Br and Name: Ambien S end Method: [...] mg capsule 2013 active Medicati on ID: 16394 Br and Name: Kade Rivera end Method: [...] inhalatio n 2018 active Medicati on ID: 126560 D uration Value: 30 Brand Name: Breo [...] subcutane ous 2018 active Medicati on ID: 779036 D uration Value: 35 Brand Name: Humulin [...] Updated DateTime 03/13/2024 157.48 cm 26 kg/m2 96492.12 g Shantell Wise [place] [facility] 03/13/2024 13:27:58 Social History None recorded. Functional Status None recorded. Mental Status None recorded. Family History Nothing Reported. Medical History No medical history recorded. Gynecological HistoryNo gynecological history recorded. Obstetrics History GPAL:G 0 P 0 0 0 0 Past Encounters Encounter ID Performer Location Encounter Start Date Encounter Closed Date Diagnosis/Indication Diagnosis SNOMED-CT Code Diagnosis ICD10 Code Diagnosis Note [id number] UMESH DIAZ MD [facility] [address] [place] [address] 03/13/2024 13:18:07 03/13/2024 13:52:50 Oropharyngeal dysphagia 29382430 R13.12 Exam and laryngosco py were normal. I recommend a swallow study (MBS) to reassess her swallow. F/u after. If normal I would suggest GI referral especially given her Sjogrens. Sj? ? ?gren's syndrome 08321744 M35.00 Encouraged hydration. Will consider GI referral [...] Mendez Member ID Guarantor Name 03/13/2024 1 [facility] - DOS ON OR AFTER 2022 - MEDICARE ADVANTAGE [place] & [place] (MEDICARE REPLACEMENT/AD VANTAGE - PPO) Jennifer Gu [id number] Jennifer Gu Notes Date Note Type Note [...] dry mouth. UMESH DIAZ MD [address], [address], [place] - [facility] 03/13/2024 13:43:36 OBGyn Episode No OBEpisode recorded.
--- OUTSIDE RECORDS SUMMARY | 2024-06-10 09:48 | XMS_ITS | Encounter Summary ---
Author Organization [employer] Address [address] [place] [address] [place] [address] Care Team Providers Care Car Repairer Name Role Phone Emy Askew MD Primary Care Pro vider Reason for Visit * Reason Onset Date Comments Triage 07/31/2022 Encounter Details Date Type Department Care Team ([facility] st Contact Info) Description 07/31/2022 Telephone [facility] MEDICINE [address] [place] [address] Emy Askew MD [address] [place] [address] Triage Social History Tobacco Use Types Packs/Day [...] The caller accepted this outcome Patient speaks kiswahili. documented in this encounter Plan of Treatment Upcoming Encounters Date Type Department Care Team (Late st Contact Info) Description 07/16/2024 11:15 AM EDT Office Visit [facility] MEDICINE [address] [place] [phone] Emy Askew MD [address] [place] [phone] documented as of this encounter Visit Diagnoses Not on filedocumented in this encounter Care Teams Car Repairer Relationship Specialty Start Date End Date Emy Askew MD [address] [place] [phone] PCP - General Internal Medicine 07/25/22 documented as of this encounter
--- OUTSIDE RECORDS SUMMARY | 2024-06-10 09:48 | XMS_ITS | Encounter Summary ---
Author Organization [employer] Address [address] [place] [address] 7 [place] [address] Care Team Providers Care Radioisotope Production Operator Name Role Phone Kenya Sol [facility] Primary Care Provider [phone] Emy Askew MD Primary Care Pro vider Encounter Details Date Type Department Care Team (Late st Contact Info) Description 05/28/2022 Orders Only [facility]EDS [address] [place], [place] [phone] Candy Miller LPN Social History Tobacco Use [...] Description 07/16/2024 11:15 AM EDT Office Visit [facility] MEDICINE [address] [place], [place] [phone] Emy Askew MD [address] [place], [place] [phone] documented as of this encounter Visit Diagnoses Not on filedocumented in this encounter Care Teams Radioisotope Production Operator Relationship Specialty Start Date End Date Kenya Sol FNP [address] [place] [address] PCP - General Family Medicine 01/22/22 07/24/22 Emy Askew MD [address] [place] [address] PCP - General Internal Medicine 07/25/22 documented as of this encounter
--- OUTSIDE RECORDS SUMMARY | 2024-06-10 09:48 | XMS_ITS | Encounter Summary ---
Author Organization [employer] Address [address] 7[address] [place] [address] Care Team Providers Care Subeditor Name Role Phone Emy Askew MD Primary Care Pro vider Encounter Details Date Type Department Care Team (Late st Contact Info) Description 08/07/2023 Orders Only [facility] MED & PEDS [address] [place] [address] Valeria Armas FNP [address] [place] [address] Social History Tobacco Use Types Packs/Day Years [...] Office Visit [facility] MEDICINE [address] [place] [address] Emy Askew MD [address] [place] [address] documented as of this encounter Visit Diagnoses Not on filedocumented in this encounter Additional Health Concerns Assessment Noted Time PHQ-9 Depression Total Score: 16 023 10:16 AM EDT documented as of this encounter Care Teams Subeditor Relationship Specialty Start Date End Date Emy Askew MD [address] [place] [address] PCP - General Internal Medicine 07/25/22 documented as of this encounter
--- OUTSIDE RECORDS SUMMARY | 2024-06-10 09:48 | XMS_ITS | Encounter Summary ---
Author Organization [employer] Address [address] 7[address] [place] [address] Care Team Providers Care Manager Of Development Name Role Phone Emy Askew MD Primary Care Pro vider Encounter Details Date Type Department Care Team ([facility] st Contact Info) Description 02/23/2024 Orders Only [facility] MEDICINE [address] [place] [address] Provider, MD Waylon Social History Tobacco Use [...] Description 07/16/2024 11:15 AM EDT Office Visit [facility] MEDICINE [address] [place] [address] Emy Askew MD [address] [place] [address] documented as of this encounter Procedures Procedure [...] documented as of this encounter Care Teams Manager Of Development Relationship Specialty Start Date End Date Emy Askew MD [address] [place] [address] PCP - General Internal Medicine 07/25/22 documented as of this encounter
--- OUTSIDE RECORDS SUMMARY | 2024-06-10 09:48 | XMS_ITS | Encounter Summary ---
Author Organization [facility] [facility] Address [address] [place] [address] 7t [place] [address] Care Team Providers Care Public Works Supervisor Name Role Phone [facility] Primary Care Provider [phone] Emy Askew MD Primary Care Pro vider Reason for Visit * Reason Onset Date Comments Appointment Request 06/07/2022 Encounter Details Date Type Department Care Team ([facility] st Contact Info) Description 06/07/2022 Telephone [facility] MEDICINE [address] [place] [address] [facility] [address] [place] [address] Appointment Request Social History Tobacco Use Types [...] with new provider. Please contact pt at [phone] documented in this encounter Plan of Treatment Upcoming Encounters Date Type Department Care Team (Late st Contact Info) Description 07/16/2024 11:15 AM EDT Office Visit [facility] MEDICINE [address] [place] [address] Emy Askew MD [address] [place] [address] documented as of this encounter Visit Diagnoses Not on filedocumented in this encounter Care Teams Public Works Supervisor Relationship Specialty Start Date End Date Kenya Sol FNP [address] [place] [address] PCP - General Family Medicine 01/22/22 07/24/22 Emy Askew MD [address] [place] [address] PCP - General Internal Medicine 07/25/22 documented as of this encounter
--- OUTSIDE RECORDS SUMMARY | 2024-06-10 09:49 | XMS_ITS | Encounter Summary ---
Author Organization [employer] Address [address] 7[address] [place] [address] Care Team Providers Care Director Of Player Personnel Name Role Phone Emy Askew MD Primary Care Pro vider Encounter Details Date Type Department Care Team (Late st Contact Info) Description 06/10/2024 Orders Only [facility] [address] [place] [address] Mehul Sinclair MD [address] [place] [address] Social History Tobacco Use Types Packs/Day Years [...] 11:15 AM EDT Office Visit [facility] MEDICINE [address] [place] [address] Emy Askew MD [address] [place] [address] documented as of this encounter Procedures Procedure Name Priority Date/Time Associated Diagnosis Comments XR CERVICAL SPINE 3V Routine 06/10/2024 9:13 AM EDT documented in this encounter Results * XR CERVICAL SPINE 3V (06/10/2024 9:13 AM EDT) Anatomical Region Laterality Modality Abdomen Radiographic Karla ging 06/10/2024 9:13 AM EDT Narrative 06/10/2024 9:41 AM EDT ?[facility] ?[address] ?[place] [address] ?XRay Report ? Signed ? Patient: Palmer,Jennifer ?MR#: [id number] ?? 0 ? : 1960 ?Acct:[id number] ? Age/Sex: 63 / F ?ADM Date: 04/09/25 ? Loc: HO.HHCX ? Attending Dr: Mehul Sinclair MD ? Ordering Physician: MEHUL SINCLAIR MD ?? Date of Service: 06/10/24 ?? Procedure(s): XR cervical spine 3V ?? Accession Number(s): [id number] ? cc: MEHUL SINCLAIR MD ? EXAMINATION: ?? XR CERVICAL SPINE ? CLINICAL INFORMATION: ?? Pain ? COMPARISON: ?? December 04, 2016. ? TECHNIQUE: ?? 3 views of the cervical spine were obtained. ? FINDINGS: ?? Craniocervical junction is intact. No acute cortical disruption or ?? malalignment. Facet joint hypertrophy C7-T1. ?? Grade 1 anterolisthesis C5-6. ?? No lytic or blastic lesions. Upper airway is patent. ? XR/XR cervical spine 3V ?? IMPRESSION: ?? Grade 1 anterolisthesis C5-6. ? Electronically signed by: ??Brock Lauren MD ??06/10/2024 09:39 AM ?? EDT RP ? Dictated By: ?Brock Lundy MD ? Signed By: ?<Electronically signed by Brock Maradiaga MD in OV> ? 06/10/24 0939 ? DD/ 2 ? TD/TT: 06/10/24912 ? Heavy Threader: ? Procedure Note Aniket, Image - 06/10/[address] [address] XRay Report Signed Patient: Axel Palmer#: [id number] 0 : 9Acct:[id number] Age/Sex: 63 / FADM Date: 06/10/24 Loc: HO.HHCX Attending Dr: Mehul Sinclair MD Ordering Physician: MEHUL SINCLAIR MD Date of Service: 06/10/24 Procedure(s): XR cervical spine 3V Accession Number(s): [id number] cc: MEHUL SINCLAIR MD EXAMINATION: XR CERVICAL SPINE CLINICAL INFORMATION: Pain COMPARISON: December 04, 2016. TECHNIQUE: 3 views of the cervical spine were obtained. FINDINGS: Craniocervical junction is intact. No acute cortical disruption or malalignment. Facet joint hypertrophy C7-T1. Grade 1 anterolisthesis C5-6. No lytic or blastic lesions. Upper airway is patent. XR/XR cervical spine 3V IMPRESSION: Grade 1 anterolisthesis C5-6. Electronically signed by: Brock Lauren MD 06/10/2024 09:39 AM EDT RP Dictated By: Brock Lundy MD Signed By: <Electronically signed by Brock Maradiaga MDin OV> 06/10/24938 DD/ 2 TD/TT: 06/10/24912 Heavy Threader: Mehul Sinclair MD IMG XR PROCEDURES Final Result documented in this encounter Visit Diagnoses Not on filedocumented in this encounter Additional Health Concerns Assessment Noted Time PHQ-9 Depression Total Score: 10 024 2:37 PM EDT documented as of this encounter Care Teams Director Of Player Personnel Relationship Specialty Start Date End Date Emy Askew MD [address] [place] [address] PCP - General Internal Medicine 07/25/22 documented as of this encounter
--- OUTSIDE RECORDS SUMMARY | 2024-06-10 09:49 | XMS_ITS | Data Portability ---
Author Organization [employer] [facility] [place] [facility] Address [address] [place] [address] Care Team Providers Care Cosmetic Surgeon Name Role Phone HIM [facility] OTHER [facility] OTHER [phone] Assessment Encounter Date Assessment Date Assessment LastModified by Organization Details LastModified Time 04/13/2024 04/13/2024 As noted, we were called to see this patient regarding concerns of URI symptoms. Evaluation in the field was performed by my blanket winder helper colleague, as noted above, I provided real-time [...] QL IA, respiratory specimen [email or web address] [facility], [address] [place] [address], [phone] 14:42:18 rapid flu (A+B) [email or web address] [facility], [address] [place] [address], [phone] 5 14:42:21 Referral None recorded. Procedures None [...] Name and Address Organization Details Recorded Time 77419 codeine medicatio n Not available Not available Not available 04/13/2024 2670 RxNorm [facility] Available [facility] 09:12[facility]08 85203 Bactrim medicatio n Not available Not available Not available 04/13/2024 04197 9 RxNorm Not Available [facility] - production 5 09:12:08 78365 sulfameth oxazole medicatio n Not available Not available Not available 04/13/2024 10453 RxNorm Not Available [facility] - production 5 09:12:08 69519 trimethop rim medicatio n Not available Not available Not available 04/13/2024 55451 RxNorm Not Available [facility] 09:12:08 Medications Name Sig [...] /min 134 mm[Hg] 76 mm[Hg] Not Available [facility] - production 5 14:39:46 Social History None recorded. Functional Status None recorded. Mental Status None recorded. Family History Nothing Reported. Medical History No medical history recorded. Gynecological HistoryNo gynecological history recorded. Obstetrics History GPAL:G 0 P 0 0 0 0 Past Encounters Encounter ID Performer Location Encounter Start Date Encounter Closed Date Diagnosis/Indication Diagnosis SNOMED-CT Code Diagnosis ICD10 Code Diagnosis Note [id number] Sebastian Vanessa MD Main - [facility] [address] [place] [address] 04/13/2024 14:39:43 04/13/2024 21:52:34 Viral upper respiratory tract infection 438593977 J06.9 Health Concerns Section Related Observation LastModified by Organization Detai ls LastModified Time None Recorded Concern Status LastModified by Organization Details LastModified Time None Recorded Advance Directives Directive None Recorded Payers Encounter Date Sequence Insurance Name Policy Number Policy Mendez Covered Member ID Mnedez Member ID Guarantor Name 04/13/2024 1 [facility] - DOS ON OR AFTER 2022 - DUAL ELIGIBLE - CARE HOME OPTIONS AND ONE CARE (MEDICARE REPLACEMENT/ADV ANTAGE - HMO) Jennifer Gu [id number] Jennifer Gu Notes Date Note Type Note [...] at 04/13/2024 - 09:12 Comments: HPI reviewed Line Appliance Assembler Organization Information for Emanuel Paige Legal Name: [employer] Address: [address] [place] [address], Belly Dancer: Vinny Delgadillo MD CLIA No.: [id number] Line Appliance [employer]er POC Test Results from Emanuel Paige - ALS Rapid influenza antigen (14:32:34) Flu: - Rapid COVID antigen (14:32:35) COVID: - ...................... ...................... ...................... ...................... ...................... ...................... ......... Line Appliance Assembler Note From Emanuel Paige: Dispatch to the [...] test negative, rapid flu test positive negative. [facility] consulted. Red flags discussed. All times are approximate. ...................... ...................... ...................... ...................... ...................... ...................... ......... [facility] Consulted: Sebastian Vanessa ...................... ...................... ...................... ...................... ...................... ...................... ......... Disposition: Fulfilled Sebastian Vanessa MD [address] [place] [address],[address], [place], [address], [email or web address] [facility] 04/13/2024 15:34:43 OBGyn Episode No OBEpisode recorded.
--- OUTSIDE RECORDS SUMMARY | 2024-06-10 09:49 | XMS_ITS | Encounter Summary ---
Author Organization [employer] [facility] Address [address] [place] [address] [facility] [place] [address] Care Team Providers Care Certified Endoscopy Technician Name Role Phone Cyn Bosch MD Primary Care Provider Kenya Delong [facility] Primary Care Provider [phone] Emy Askew MD Primary Care Pro vider Encounter Details Date Type Department Care Team (Latest Contact Info) Description 05/09/2020 Abstract [facility] CONVERSIONS Dental, Provider, DDS Social History [...] 11:15 AM EDT Office Visit [facility] MEDICINE [address] [place] [address] Emy Askew MD [address] [place], [place] [phone] documented as of this encounter Visit Diagnoses Not on filedocumented in this encounter Care Teams Certified Endoscopy Technician Relationship Specialty Start Date End Date Cyn Bosch MD PCP - General Family Medicine 08/20/19 01/21/22 Kenya Sol FNP [address] [place] [address] PCP - General Family Medicine 01/22/22 07/24/22 Emy Askew MD [address] [place] [address] PCP - General Internal Medicine 07/25/22 documented as of this encounter
--- OUTSIDE RECORDS SUMMARY | 2024-06-10 09:49 | XMS_ITS | Encounter Summary ---
Author Organization [facility] Address [address] [place] [address] 7[address] [place] [address] Care Team Providers Care Plastic Machine Operator Name Role Phone [facility] Primary Care Provider [phone] Emy Askew MD Primary Care Pro vider Reason for Visit * Reason Onset Date Comments Med Refill 05/11/2022 Encounter Details Date Type Department Care Team (Late st Contact Info) Description 05/11/2022 Telephone [facility] [address] [place] [address] [facility] [address] [place], [place] [phone] Med Refill Social History Tobacco Use Types [...] has lost the device. Please sent to [facility] - [place], [place] - [address] [place] [address] documented in this encounter Plan of Treatment Upcoming Encounters Date Type Department Care Team ([facility] st Contact Info) Description 07/16/2024 11:15 AM EDT Office Visit [facility] [address] [place] [phone] Emy Askew MD [address] [place] [address] documented as of this encounter Visit Diagnoses Not on filedocumented in this encounter Care Teams Plastic Machine Operator Relationship Specialty Start Date End Date EbenezerKenya FNP [address] [place] [address] PCP - General Family Medicine 01/22/22 07/24/22 Emy Askew MD [address] [place] [phone] PCP - General Internal Medicine 07/25/22 documented as of this encounter
--- OUTSIDE RECORDS SUMMARY | 2024-06-10 09:49 | XMS_ITS | Encounter Summary ---
Author Organization [facility] Address [address] [place] [address] 7t [place] [address] Care Team Providers Care Chairman President And Chief Executive Officer Name Role Phone [facility] Primary Care Provider [phone] Emy Askew MD Primary Care Pro vider Reason for Visit * Reason Onset Date Comments VISION 03/13/2022 Encounter Details Date Type Department Care Team ([facility] st Contact Info) Description 03/13/2022 Telephone [facility]INE [address] [place] [address] [facility] [address] [place] [address] VISION Social History Tobacco Use Types Packs/Day [...] center regarding an eye exam. Please contact [phone] documented in this encounter Plan of Treatment Upcoming Encounters Date Type Department Care Team (Late st Contact Info) Description 07/16/2024 11:15 AM EDT Office Visit [facility] [address] [place] [phone] Emy Askew MD [address] [place] [address] documented as of this encounter Visit Diagnoses Diagnosis Diabetes 1.5, managed as type 2 (CMS/HCC) documented in this encounter Care Teams Chairman President And Chief Executive Officer Relationship Specialty Start Date End Date Kenya Sol FNP [address] [place] [phone] PCP - General Family Medicine 01/22/22 07/24/22 Emy Askew MD [address] [place] [address] PCP - General Internal Medicine 07/25/22 documented as of this encounter
--- OUTSIDE RECORDS SUMMARY | 2024-06-10 09:49 | XMS_ITS | Encounter Summary ---
Author Organization [facility] Address [address] [place] [address] [address] [place] [address] Care Team Providers Care Pneumatic Jack Operator Name Role Phone [facility] Primary Care Provider [phone] Emy Askew MD Primary Care Pro vider Encounter Details Date Type Department Care Team (Late st Contact Info) Description 03/26/2022 Orders Only [facility] MEDICINE [address] [place], [place] [phone] Lizett Cannon LPN Social History Tobacco Use [...] AM EDT Office Visit [facility] [address] [place], [place] [phone] Emy Askew MD 230 [place], [place] [phone] documented as of this encounter Visit Diagnoses Not on filedocumented in this encounter Care Teams Pneumatic Jack Operator Relationship Specialty Start Date End Date Kenya Sol FNP 230 [place] [address] PCP - General Family Medicine 01/22/22 07/24/22 Emy Askew MD [address] [place] [address] PCP - General Internal Medicine 07/25/22 documented as of this encounter
--- OUTSIDE RECORDS SUMMARY | 2024-06-10 09:49 | XMS_ITS | Encounter Summary ---
Author Organization [employer] [facility] Address [address] [place] [address] [address] [place] [address] Care Team Providers Care Contact Person Name Role Phone Cyn Bosch MD Primary Care Provider Kenya Delong [facility] Primary Care Provider [phone] Emy Askew MD Primary Care Pro vider Encounter Details Date Type Department Care Team (Latest Contact Info) Description 10/26/[address] [facility] CONVERSIONS Dental, Provider, DDS Social History [...] 11:15 AM EDT Office Visit [facility] MEDICINE [address] [place] [address] Emy Askew MD [address] [place], [place] [phone] documented as of this encounter Visit Diagnoses Not on filedocumented in this encounter Care Teams Contact Person Relationship Specialty Start Date End Date Cyn Bosch MD PCP - General Family Medicine 08/20/19 01/21/22 Kenya Sol FNP 230 [place] [address] PCP - General Family Medicine 01/22/22 07/24/22 Emy Askew MD [address] [place] [address] PCP - General Internal Medicine 07/25/22 documented as of this encounter
--- OUTSIDE RECORDS SUMMARY | 2024-06-10 09:49 | XMS_ITS | Encounter Summary ---
Author Organization [employer] Address [address] [place] [address] 7t [place] [address] Care Team Providers Care Biblical Studies Professor Name Role Phone Emy Askew MD Primary Care Pro vider Reason for Referral * Imaging (Urgent) - Pending Review Specialty Diagnoses / Procedures Referred By Contac t Referred To Contact Radiology Diagnoses Acute intractable headache, unspecified headache type Procedures CT Head w/o Contrast Mehul Alexis MD [address] [place] [address] Phone: tel: fax: [address] Phone: tel: fax: Referral ID Status Reason Start Date Expiration Date V isits Requested Visits Authorized [id number] Pending Review 06/10/2024 06/10/2025 1 1 Reason for Visit * Reason Comments Neck Pain Encounter Details Date Type Department Care Team (Late st Contact Info) Description 06/10/2024 8:40 AM EDT Office Visit [facility] [address] [place], [place] [phone] Neck pain (Primary Dx); Acute intractable headache, unspecified headache type Social History Tobacco Use Types Packs/Day Years [...] Sign Reading Time Taken Comments Blood Pressure 122/87 06/10/2024 8:46 AM EDT Pulse 81 06/10/2024 8:49 AM EDT Temperature 36.7 ??C (98 ??F) 06/10/2024 8:46 AM EDT Respiratory Rate 16 06/10/2024 8:46 AM EDT Oxygen Saturation 96% 06/10/2024 8:49 AM EDT Inhaled Oxygen Concentration - - Weight 63.2 kg (139 lb 6.4 oz) 06/10/2024 8:46 A M EDT Height - - Body Mass Index 25.5 06/04/2024 9:31 AM EDT documented in this encounter Plan of Treatment Upcoming Encounters Date Type Department Care Team (Late st Contact Info) Description 07/16/2024 11:15 AM EDT Office Visit [facility] MEDICINE [address] [place] [phone] Emy Askew MD [address] [place] [address] Scheduled Orders Name Type Priority Associated Diagnoses Orde r Schedule XR Cervical Spine 2-3 Views Imaging Routine Acute intractable headache, unspecified headache type Expected: 06/10/2024, Expires: 06/10/2025 CT Head w/o Contrast Imaging Urgent Acute intractable headache, unspecified headache type Expected: 06/10/2024, Expires: 06/10/2025 documented as of this encounter Visit Diagnoses Diagnosis Neck pain- Primary Cervicalgia Acute intractable headache, unspecified headache type documented in this encounter Additional Health Concerns Assessment Noted Time PHQ-9 Depression Total Score: 10 024 2:37 PM EDT documented as of this encounter Care Teams Biblical Studies Professor Relationship Specialty Start Date End Date Emy Askew MD [address] [place] [phone] PCP - General Internal Medicine 07/25/22 documented as of this encounter
--- OUTSIDE RECORDS SUMMARY | 2024-06-10 09:49 | XMS_ITS | Clinical Summary ---
Author Organization [employer] Address [address] [place] [address] [address] [place] [address] Care Team Providers Care Pharmaceutical Sales Representative Name Role Phone Emy Askew MD Primary [...] DAILY 100 strip 11 Active sodium chloride (Cooper Nasal [place]) 0.65 % nasal spray Administer 1 spray [...] diabetes mellitus without complication, unspecified whether senior living insulin use (CMS/[facility]) USE DIRECTED FIVE TIMES DAILY 100 each [...] 10 days. 20 capsule 025 2024 Active ibuprofen 400 MG tabletIndications :Neck pain Take 1 tablet (400 mg) by mouth every 6 (six) hours if needed for moderate pain or fever for up to 30 doses. 15 tablet 025 Active oxyCODONE (Roxicodone) 5 MG immediate release tabletIndications :Neck pain Take 1 tablet (5 mg) by mouth every 6 (six) hours if needed for severe pain. 12 tablet 025 Active cevimeline (Evoxac) 30 MG capsule Take [...] ---- requested record to Jose Rivero -MM 2019 - BIRADS 1 - referred already -colonoscopy [...] ---- requested record to Jose Rivero -MM 2019 - BIRADS 1 - referred today [...] diet and exercise,discussed healthy life style - swager operator referred already-pd to schedule apt. gave today information to pt to call for apt Assessment & Plan (10/23/2022 5:21 PM EDT): Advised pt to improve diet and exercise,discussed healthy life style - swager operator referred already-pd to schedule apt Assessment & Plan (09/24/2022 8:29 PM EDT): Advised pt to improve diet and exercise,discussed healthy life style -discussed swager operator referral - today Sialoadenitis of submandibular gland [...] referred by ENT for further eval in [place] but never went -referred again to ENT [...] referred by ENT for further eval in [place] but never went -referred again to ENT [...] w RA / Sjogren's disease, follows w jig builder - Continue care w specialist -on leflunomide and MTX Assessment & Plan (10/23/2022 5:23 PM EDT): Pt w RA / Sjogren's disease, follows w jig builder - Continue care w specialist -on leflunomide and MTX Assessment & Plan (09/24/2022 8:33 PM EDT): Pt w RA / Sjogren's disease, follows w jig builder - Continue care w specialist Bilateral post-traumatic [...] Pt following w psychiatrist and therapist at [facility]. Denies SI but has thoughts to be better off . - Continue care w specialist - Pt requests information to be able to change to an old age home --already received information -in process per pt Assessment & Plan (10/23/2022 5:23 PM EDT): Pt following w psychiatrist and therapist at [facility]. Denies SI but has thoughts to be better off . - Continue care w specialist - Pt requests information to be able to change to an old age home --already received information -in process per pt Assessment & Plan (09/24/2022 8:32 PM EDT): Pt following w psychiatrist and therapist at [facility]. Denies SI but has thoughts to be better off . - Continue care w specialist - Pt requests information to be able to change to an old age home -- I spoke w patient case manager today and they will come to speak w pt to give info. Was told that there is no need to refer to CM for this. Type 2 diabetes mellitus without complication Assessment & Plan (12/06/2022 6:16 AM EDT): 09/2022 HbA1C 8.2<---8.7, CBG 248., total ch 169, trig 324( in fasting) ,HDL 36,LDL 69, Microalb neg Used to follow w clinic licensed practical nurse, but lost care. Not on metformin for [...] - to f in 1 y. - Profiler Operator: seen in 11/2022 Assessment & Plan (10/23/2022 5:46 PM EDT): 09/2022 HbA1C 8.2<---8.7, CBG 248., total ch 169, trig 324( in fasting) ,HDL 36,LDL 69, Microalb neg Used to follow w clinic licensed practical nurse, but lost care. Not on metformin for [...] - to f in 1 y. - Profiler Operator: referred today Assessment & Plan (09/24/2022 8:51 PM EDT): Today HbA1C 8.7, CBG 248. Used to follow w clinic licensed practical nurse, but lost care. - DM2 labs. - Will consider increasing Trulicity at her next appt. - Pt not currently on Metformin, but used to be in the past. Will check at her next appt, and if she can tolerate it, will resume Rx. - Ophthalmology 07/2022 - to f in 1 y. - Profiler Operator: will refer at next visit. Varicose veins of lower extremity 07/08/2017 Assessment & Plan (10/23/2022 5:12 PM EDT): Pt w lower extremity edema trace from 1+ before , possibly from Cardiazem and venous insufficiency. - Advised to use compression stockings,--started using with noted improved LE edema -I confirmed today w her clinic mgr-Dr Watkins #[phone] that pt does not have CHF and [...] (12/06/2022 6:19 AM EDT): Pt following with jig builder. Pt w consistently dry mouth. From med [...] for unclear reasons. - PT following w clinic mgr actively w on and off chest discomfort. [...] mg in pm - PT following w clinic mgr -will f BP in next 3 to 4 weeks Assessment & Plan (09/24/2022 8:43 PM EDT): BP slightly elevated at 144/94 - Holter 2019 neg. -echocardiogram 2018The left ventricular systolic function is normal. The visually estimated ejection fraction is between 60-65%. -stress test 2019 : nondiagnostic EKG For ischemia. - Will monitor BP manually at next visit. - PT following w clinic mgr Chronic constipation 12/24/2016 Gastroesophageal reflux disease without [...] in 2016 here . I called her clinic mgr today and he reports last EKG was normal as well [employer] Sourcer -Dr Watkins states given QTC < 500 [...] and leflunomide ( if ok wit her jig builder)-pt to ask and Cymbalta if taking in am. Hold am of surgery lasix,amytriptiline,lisinopril .Hold ASA 5 days prior procedure and avoid NSAIDS 7 days prior procedure. -will rec to have post op EKG as rec by her clinic mgr for noted prolonged QTC -will rec to [...] Encounters Date Type Department Care Team Description 06/10/2024 8:40 AM EDT Office Visit [facility] [address] [place] [phone] Neck pain (Primary Dx); Acute intractable headache, unspecified headache type 06/10/2024 Orders Only [facility] [address] [place] [phone] Mehul Alexis MD 06/04/2024 10:00 AM EDT Office Visit [facility] [address] [place] [phone] Kaden Jaime MD Pharyngitis, unspecified etiology (Primary Dx) 05/27/2024 Telephone [facility] [address] [place] [phone] Alden Cai CNM Results 05/26/2024 1:00 PM EDT Office Visit [address] [address] Alden Cai CNM Visit for pelvic exam (Primary Dx); Vulvar itching 05/26/2024 Travel 05/20/2024 Refill [facility] [address] [place] [phone] Dorinda Barajas ANP 05/10/2024 Refill [facility] [address] [place] [phone] Emy Askew MD Benign essential hypertension 05/05/2024 Refill [facility] [address] [place] [phone] Emy Askew MD Chronic constipation 04/28/2024 Refill [facility] [address] [facility] [place] [address] Emy Askew MD Type 2 diabetes mellitus without complication, with long-term current use of insulin ([facility]) 04/13/2024 Telephone [facility] [address] [facility] [place] [address] Emy Askew MD Nurse Triage 04/08/2024 Telephone [facility] [address] [facility] [place] [address] Jessica Valenzuela [place] Nguyen recall 04/05/2024 Refill [facility] [address] [facility], [place] [phone] Emy Askew MD 03/25/2024 Refill [facility] [address] [facility], [place] [phone] Emy Askew MD Type 2 diabetes mellitus without complication, unspecified whether senior living insulin use ([facility]) 03/20/2024 Travel 03/17/2024 Orders Only [facility] [address] [facility], [place] [phone] Emy Askew MD 03/17/2024 Telephone [facility] [address] [place], [place] [phone] Kaylen Mane, GARY Appointment Request from Last 3 Months Immunizations Name Administration [...] oz) 06/10/2024 8:46 A M EDT Height 157.5 cm (5' 2 ) 06/04/2024 9:31 AM EDT Body Mass Index 25.5 06/04/2024 9:31 AM EDT Plan of Treatment Upcoming Encounters Date Type Department Care Team (Late st Contact Info) Description 07/16/2024 11:15 AM EDT Office Visit [facility] [address] [place] [phone] Emy Askew MD [address] [place] [address] Health Maintenance Due Date Last Done Comments [...] 11/03, 07/28/2021, Additional history exists Tobacco Screening 06/10/2025 06/10/2024 Eye Exam 01/07/2026 01/08/2024, 1108/2023, 01/08/2024, Additional [...] SPINE 3V Routine 06/10/2024 9:13 AM EDT POCT RAPID STREP A Routine 06/04/2024 9: 50 AM EDT Pharyngitis, unspecified etiology POCT RAPID COVID ANTIGEN Routine 06/04/2024 9:50 AM EDT Pharyngitis, unspecified etiology POCT INFLUENZA A (ID NOW RAPID MOLECULAR) Routine 06/04/2024 9:50 AM EDT Pharyngitis, unspecified etiology POCT INFLUENZA B (ID NOW RAPID MOLECULAR) Routine 06/04/2024 9:50 AM EDT Pharyngitis, unspecified etiology CULTURE, THROAT Routine 06/04/2024 9:50 AM EDT Pharyngitis, unspecified [...] 3:30 PM EDT Periodontal disease Fractured dental temple with loss of material HPV MRNA E6/E7 [...] Relevant to Health Maintenance Results * XR CERVICAL SPINE 3V (06/10/2024 9:13 AM EDT) Anatomical Region Laterality Modality Abdomen Radiographic Karla ging 06/10/2024 9:13 AM EDT Narrative 06/10/2024 9:41 AM EDT ?[facility] ?[address] ?[place] [address] ?XRay Report ? Signed ? Patient: Palmer,Jennifer ?MR#: [id number] ?? 0 ? : 1960 ?Acct:[id number] ? Age/Sex: 63 / F ?ADM Date: 06/10/24 ? Loc: HO.HHCX ? Attending Dr: Mehul Alexis MD ? Ordering Physician: MEHUL ALEXIS MD ?? Date of Service: 06/10/24 ?? Procedure(s): XR cervical spine 3V ?? Accession Number(s): [id number] ? cc: MEHUL ALEXIS MD ? EXAMINATION: ?? XR CERVICAL SPINE [...] ? DD/ 2 ? TD/TT: 06/10/24912 ? [employer]: ? Procedure Note Bridgette Marcial - 06/10/[address] [address] XRay Report Signed Patient: Axel Palmer#: [id number] 0 : 9Acct:[id number] Age/Sex: 63 / FADM Date: 06/10/24 Loc: .HHX Attending Dr: Mehul Alexis MD Ordering Physician: MEHUL ALEXIS MD Date of Service: 06/10/24 Procedure(s): XR cervical spine 3V Accession Number(s): [id number] cc: MEHUL ALEXIS MD EXAMINATION: XR CERVICAL SPINE CLINICAL INFORMATION: [...] MDin OV> 06/10/24938 DD/ 2 TD/TT: 06/10/24912 [employer]: Mehul Alexis MD IMG XR PROCEDURES Final Result * Influenza B (ID NOW Rapid Molecular) (06/04/2024 9:50 AM EDT) Pathologist [facility] Influenza B Negative Negative, Indeterminate [facility] Swab 06/04/2024 9:50 AM EDT Kaden Jaime MD POINT OF CARE TEST ENTER/EDIT OR DERABLES Final Result [facility] [address] [place] [phone] * Influenza A (ID NOW Rapid Molecular) (06/04/2024 9:50 AM EDT) Influenza A Negative Negative, Indeterminate [facility] Swab 06/04/2024 9:50 AM EDT Kaden Jaime MD POINT OF CARE TEST ENTER/EDIT OR DERABLES Final Result Performing Organization Address [facility] Co de Phone Number [facility] [address] [place] [address] [phone] * POCT Rapid COVID Ag (06/04/2024 9:50 AM EDT) [facility] Rapid COVID Ag Negative Swab 06/04/2024 9:50 AM EDT us Kaden Jaime MD POINT OF CARE TEST ENTER/EDIT OR DERABLES Final Result * POCT rapid strep A manually resulted (06/04/2024 9:50 AM EDT) [facility] Rapid Strep A Screen Negative Negative, None Detected Swab 06/04/2024 9:50 AM EDT us Kaden Jaime MD POINT OF CARE TEST ENTER/EDIT OR DERABLES Final Result * Culture, Throat (06/04/2024 9:50 AM EDT) Throat Structure of anterior portion of neck / Unknown 06/04/2024 9:50 AM EDT 06/04/2024 6:00 PM EDT Comment:Throat Narrative [facility] - 06/05/2024 11:47 AM EDT Streptococcus pyogenes (Grp A) Quant Org ID [id number] Specimen Source: Throat us Kaden Jaime MD LAB MICROBIOLOGY - GENERAL ORDER CANDI Final Result Performing Organization Address [facility] Co de Phone Number [facility] [address] [place] [phone] * POCT fern test, vaginal fluid manually resulted (05/26/2024 12:38 PM EDT) [facility] DAVON Prep Negative Comment:pH 5, neg whiff, neg clue, neg trich, neg wbc, neg hyphae Vaginal Fluid Vaginal structure / Unknown 05/26/2024 12:38 PM EDT Alden Cai CNM POINT OF CARE TEST ENTER/ EDIT ORDERABLES Final Result * Bacterial Vaginosis Panel (05/26/2024 12:37 PM EDT) TRICHOMONAS VAGINALIS DETECTION BY PCR NOT DETECTED Not Detect [facility] BACTERIAL VAGINOSIS DETECTION BY PCR NEGATIVE Negative [facility] Comment:The BV organism targ ets of [...] DETECTION BY PCR NOT DETECTED Not Detect [facility] Sammie glab krusei PCR NOT DETECTED Not Detect [facility] Swab Vaginal structure / Unknown 05/26/2024 12:37 PM EDT 05/26/2024 4:52 PM EDT Alden Cai CNM LAB MICROBIOLOGY - GENERA L ORDERABLES Final Result [facility] [address] [place] [phone] * XR Hip 2 or 3 Views Left (03/27/2024 11:12 AM EST) Anatomical Region Laterality Modality Lower Extremities, Hip Left Radiograp hic Imaging 03/27/2024 11:1 2 AM EST Narrative 03/30/2024 10:04 AM EST ? [facility] ? [address] ?[place] [address] ?XRay Report ? Signed ? Patient: Palmer,Jennifer ?MR#: [id number] ?? 0 ? : 1960 ?Acct:[id number] ? Age/Sex: 63 / F ?ADM Date: 01/24/25 ? Loc: HO.HOSX ? Attending Dr: Aleksandra Culp MD ? Ordering Physician: Aleksandra Chu ?? Date of Service: 03/27/24 ?? Procedure(s): XR hip LT min 2V ?? Accession Number(s): [id number] ? cc: Emy Askew MD; Aleksandra Chu [...] Lauren MD ??03/30/2024 10:02 AM ?? EST ? Dictated By: ?Brock Lundy MD ? Signed By: ?<Electronically signed by Brock Maradiaga MD in OV> ? 03/30/24 1002 ? DD/ 1112 ? TD/TT: 03/27/24 1115 ? [employer]: ? Procedure Note Aniket, Bridgette - 03/30/2024 [facility] [address] [place] [address] [address] [place] [address] XRay Report Signed Patient: Axel Palmer#: [id number] 0 : 9Acct:[id number] Age/Sex: 63 / FADM Date: 03/27/24 Loc: HO.HOSX Attending Dr: Aleksandra Culp MD Ordering Physician: Aleksandra Chu Date of Service: 03/27/24 Procedure(s): XR hip LT min 2V Accession Number(s): [id number] cc: Emy Askew MD; Aleksandra Chu EXAMINATION: [...] 03/30/24 1002 DD/ 1112 TD/TT: 03/27/24 1115 [employer]: [facility] External Provider IMG XR PROCEDURES Edited Result - Final * XR Sacroiliac Joints 1-2 Views (03/27/2024 11:12 AM EST) Anatomical Region Laterality Modality Sacroiliac joint, Pelvis Radiogr aphic Imaging 03/27/2024 11:1 2 AM EST Narrative 03/30/2024 10:29 AM EST ? [facility] ? [address] ?[place] [address] ?XRay Report ? Signed ? Patient: Jennifer Palmer ?MR#: [id number] ?? 0 ? : 1960 ?Acct:[id number] ? Age/Sex: 63 / F ?ADM Date: 03/27/24 ? Loc: HO.HOSX ? Attending Dr: Aleksandra Culp MD ? Ordering Physician: Aleksandra Chu ?? Date of Service: 03/27/24 ?? Procedure(s): XR sacroiliac joint 1-2V ?? Accession Number(s): [id number] ? cc: Emy Askew MD; Aleksandra Chu [...] DD/ 1112 ? TD/TT: 03/27/24 1115 ? [employer]: ? Procedure Note Donotsilviainterpreter, Image - 03/30/2024 [facility] [address] [place] [address] [address] [place] [address] XRay Report Signed Patient: Axel Palmer#: [id number] 0 : 9Acct:[id number] Age/Sex: 63 / FADM Date: 03/27/24 Loc: JAMISON Attending Dr: Aleksandra Culp MD Ordering Physician: Aleksandra Chu Date of Service: 03/27/24 Procedure(s): XR sacroiliac joint 1-2V Accession Number(s): [id number] cc: Emy Askew MD; Aleksandra Chu EXAMINATION: [...] 03/30/24 1027 DD/ 1112 TD/TT: 03/27/24 1115 [employer]: us [facility] External Provider IMG XR PROCEDURES Final Result * BI Mammogram Screening Tomosynthesis Bilateral (03/17/2024 1:00 PM EST) Anatomical Region Laterality Modality Breast Bilateral Mammography 03/17/2024 1:00 PM EST Narrative 03/28/2024 10:52 AM EST ? [facility] ? [address] ?[place] [address] ? Mammography Report ? Signed ? Patient: Estela,Jennifer ?MR#: [id number] ?? 0 ? : 1960 ?Acct:[id number] ? Age/Sex: 63 / F ?ADM Date: 03/17/ ? Loc: HO.MAMMO ? Attending Dr: Emy Goldsmith MD ? Ordering Physician: Emy Askew MD ?Re ?? sults: 1Negative ? Date of Service: 03/17/24 ?Follow Up: 1 Year From Orig ?? inal Mammogram ? Procedure(s): MM tomosynthesis screening BI ?? Accession Number(s): [id number] ? cc: Emy Askew MD ? EXAMINATION: [...] DD/ 1300 ? TD/TT: 03/17/24 1320 ? [employer]: ? Procedure Note Aniket, Image - 03/28/2024 [facility] [address] [place] [address] Mammography Report Signed Patient: Jennifer Palmer#: [id number] 0 : 9Acct:[id number] Age/Sex: 63 / FADM Date: 03/17/24 Loc: HO.MAMMO Attending Dr: Emy Goldsmith MD Ordering Physician: Emy Askew sults: 1Negative Date of Service: 03/17/24Follow Up: 1 Year From Orig inal Mammogram Procedure(s): MM tomosynthesis screening BI Accession Number(s): [id number] cc: Emy Askew MD EXAMINATION: MM SCREENING [...] 03/28/24 1049 DD/ 1300 TD/TT: 03/17/24 1320 [employer]: us Emy Goldsmith MD IMG BI PROCEDURES Final Result * (ABNORMAL) Hemoglobin A1c (12/25/2023 7:08 AM EDT) Hemoglobin A1c 8.2(H) <6.0 % [facility] Comment:Hemoglobin A1C Refer ence Range Adults: 4.8 - 6.0 % Non diabetic: < 6.0 % Goal: < 7.0 %Additional Action Suggested: > 8.0 %Note: Hemoglobin A1c results are invalid for patients with abnormal amounts of HbF. Blood transfusions may impact the HbA1c concentration in the patient sample. Estimated Average Glucose 189 mg/dL [facility] Comment:eAG = Estimated ave rage glucose which is %A1C expressed asaverage glucose, using the formula of the L1B-WnydmvyWgmdeuc Glucose study (ADAG), Diabetes Care, Vol.31,#8,Oct. 2007 Blood Venous blood specimen / Unknown 12/25/2023 7:08 AM EDT 12/25/2023 7:09 AM EDT us Emy Goldsmith MD LAB BLOOD ORDERAB LES Final Result Performing Organization Address City/[facility]/ZIP Co de Phone Number [facility] [address] [place] [address] [phone] * (ABNORMAL) Lipid Panel, Standard (12/25/2023 7:08 AM EDT) Triglycerides 232(H) <150 mg/dL [facility] Comment:Desirable Triglyceri de: less than 150 mg/dLBorderline High Triglyceride 150-199 mg/dLHigh Triglyceride: 200-499 mg/dLVery High Triglyceride: greater than or equal to 5OO mg/dL Cholesterol 154 <200 mg/dL [facility] Comment:Desirable Cholestero l: less than 200 mg/dLBorderline High Cholesterol: 200-239 mg/dLHigh Cholesterol: greater than 239 mg/dL LDL Cholesterol Calculated 64 <100 mg/dL [facility] Comment:Desirable LDL: less than 100 mg/dLNear Optimal/Above Optimal LDL: 110- 129 mg/dLBorderline High LDL: 130-159 mg/dLHigh LDL: 160-189 mg/dLVery High LDL: greater than or equal to 190 mg/dL HDL Cholesterol 44 >40 mg/dL [facility] Comment:Desirable HDL: great er than 40 mg/dL Note: This HDL assay may give artificially low results in patients with liver disease. Blood Venous blood specimen / Unknown 12/25/2023 7:08 AM EDT 12/25/2023 7:09 AM EDT us Emy Goldsmith MD LAB BLOOD ORDERAB LES Final Result Performing Organization Address City/[facility]/ZIP Co de Phone Number [facility] [address] [place] [address] [phone] * (ABNORMAL) Albumin, Random Urine W/Creatinine (12/25/2023 7:05 AM EDT) Creatinine, Urine 50.21 mg/dL [facility] Microalbumin Urine 78.0 mg/L H [facility] Microalbum Creatinine Ratio Ur 155.3(H) <30 ug/mg cr [facility] Comment:Albumin/Creatinine R atio Reference Ranges: Normal: < 30 ug/mg creatinine Microalbuminuria: 30 - 300 ug/mg creatinineClinical Albuminuria: > 300 ug/mg creatinine Urine (Urine, Random) 12/25/2023 7:05 AM EDT 12/25/2023 7:49 AM EDT Emy Goldsmith MD LAB URINE ORDERAB LES Final Result [facility] [address] [place] [phone] * HPV mRNA E6/E7 w/Reflex to HPV Genotypes 16, 18/45 (05/27/2023 10:50 AM EDT) HPV nRNA E6/E7 Not Detected Not Detected [facility] Comment:Methodology: Transcr iption-Mediated AmplificationThis assay detects E6/E7 viral messenger RNA (mRNA) from 14high-risk HPV types (16,18,31,33,35,39,45,51,52,56,58,59,66,68).Cervical sources are required for HPV testing.If a vaginal source from a patient who has had atotal hysterectomy with removal of cervix wassubmitted, please contact the testing laboratoryfor alternative testing options.For additional information, please refer tohttp://education.Alekto/faq/NTP906g2(This link if provided for information/educational purposes only.)THIS TEST WAS PERFORMED AT:[facility] [place] [id number] CAMARENA MD HPV mRNA E6/E7 [facility] HPV 16 RNA [facility] HPV 18/45 RNA [facility] 05/27/2023 10:5 0 AM EDT 05/28/2023 11:50 AM EDT us Alden Cai CNM LAB CYTOLOGY ORDERABLES F inal Result [facility] [address] [place] [phone] * Pap Smear (05/27/2023 10:50 AM EDT) Swab Cervix uteri structure / Unknown 05/27/2023 10:50 AM EDT 05/28/2023 11:50 AM EDT Narrative [facility] - 06/09/2023 5:49 PM EDT ----- ------- Name: Jennifer Palmer ?Age/Sex: 62/F ? : 1960 Unit#: [id number] ?? Attend Dr: ALDEN CAI CNM ?Re05/27/23 ?Status: DEP REF ? Location: HO.MEET ? Disch: ? ----- ------- SPEC : [id number] ? RECD: 05/28/23-1150 ? STATUS: ??SOUT ? REQ NUM: [id number] ? PRANAY: 05/27/23-1050 ? SUBM DR: ALDEN CAI CNTristen ? ENTERED: ??05/28/23-1305 ?SP TYPE: Pap Smr ?OTHR DR: ? ORDERED: ??Pap Smear ? Interpretation ?? Satisfactory for evaluation. ?? Negative for intraepithelial lesion or malignancy. ?? Atrophic. ? HPV mRNA E6/E7: ?NOT DETECTED ? This assay detects E6/E7 viral messenger RNA (mRNA) from 14 high-risk HPV types (16, 18, ?? 31, 33, 35, 39, 45, 51, 52, 56, 58, 59, 66, 68) ? HPV testing performed by [facility], [place], [place]. ??See reference laboratory ?? portion of the EMR for entire report. ?Clinical Information LMP: Postmenopausal Previous PAP test: Unknown date/findings ? Material Received ?? ThinPrep-Vaginal/Cervical ----- ------- Signed (signature on file) Esther Gutierres 06/09/23 174 ? ----- ------- ? END OF REPORT ? us Alden Cai [facility] CYTOLOGY ORDERABLES F inal Result Performing Organization Address [facility] de Phone Number [facility] [address] [place] [phone] * Hm Colonoscopy (05/09/2023 6:56 PM EST) Historical Provider HEALTH MAINTENANCE Final Result * Hepatitis C Antibody Reflex (10/04/2022 9:42 AM EDT) Pathologist [facility] Hepatitis C Antibody Nonreactive Nonreactive [facility] Comment:Antibodies to HCV no t detected; does not exclude early acuteHCV infection. 10/04/2022 9:42 AM EDT 10/04/2022 9:43 AM EDT us Emy Goldsmith MD LAB BLOOD ORDERAB LES Final Result Performing Organization Address [facility] Co de Phone Number [facility] [address] [place], [place] [phone] from Last 3 Months or Most Recently Relevant to Health Maintenance Insurance [facility] [place] [place] - [facility] ST[place] ADULT Care Teams Pharmaceutical Sales Representative Relationship Specialty Start Date End Date Emy Askew MD [address] [place] [id number] PCP - General Internal Medicine 07/25/22
--- OUTSIDE RECORDS SUMMARY | 2024-06-10 09:49 | XMS_ITS | Clinical Summary ---
Author Organization [facility] Address [address] [place] [address] Phone Care Team Providers Care Pulmonologist/Intensivist Name Role Phone Berkley Bird MD Primary [...] 1:30 PM EST Office Visit Orthopedic Surgery [facility] [address] [phone] Magen Velasco DPM Controlled type 2 diabetes [...] Care Team (Late st Contact Info) Description 07/09/2024 9:15 AM EDT Office Visit Orthopedic [facility] [address] [phone] Magen Velasco DPM [address] [address] Health Maintenance Due Date Last Done Comments [...] age to complete this topic Meningococcal B Vaccine Aged Out No l onger eligible based on patient's age to complete [...] mmol/L LAB CHEMISTRY METHOD 04/06/2024 6:42 PM [facility] Potassium 3.5 3.5 - 5.5 mmol/L LAB CHEMISTRY METHOD 04/06/2024 6:42 PM [facility] Chloride 102 96 - 110 mmol/L LAB CHEMISTRY METHOD 04/06/2024 6:42 PM [facility] CO2 31 21 - 32 mmol/L LAB CHEMISTRY METHOD 04/06/2024 6:42 PM [facility] Anion Gap 5 3 - 11 LAB CHEMISTRY METHOD 04/06/2024 6:42 PM [facility] Glucose 183(H) 70 - 100 mg/dL LAB CHEMISTRY METHOD 04/06/2024 6:42 PM [facility] BUN 17 5 - 25 mg/dL LAB CHEMISTRY METHOD 04/06/2024 6:42 PM [facility] Creatinine 0.94 0.50 - 1.10 mg/dL LAB CHEMISTRY METHOD 04/06/2024 6:42 PM [facility] eGFR 67 >=60 mL/min/1. 73m2 LAB CHEMISTRY METHOD 04/06/2024 6:42 PM [facility] Comment:Calculation based on the??Chronic Kidney Disease Epidemiology Collaboration (CKD-EPI) equation refit??without adjustment for race. BUN/Creatinine Ratio 18.1 LAB CHEMISTRY METHOD 04/06/2024 6:42 PM [facility] Calcium 10.3 8.5 - 10.5 mg/dL LAB CHEMISTRY METHOD 04/06/2024 6:42 PM [facility] AST (SGOT) 15 10 - 42 unit/L LAB CHEMISTRY METHOD 04/06/2024 6:42 PM [facility] ALT (SGPT) 22 10 - 60 unit/L LAB CHEMISTRY METHOD 04/06/2024 6:42 PM [facility] Alkaline Phosphatase 140(H) 42 - 121 unit/L LAB CHEMISTRY METHOD 04/06/2024 6:42 PM [facility] Total Protein 7.6 6.0 - 8.0 g/dL LAB CHEMISTRY METHOD 04/06/2024 6:42 PM [facility] Albumin 3.6 3.2 - 5.0 g/dL LAB CHEMISTRY METHOD 04/06/2024 6:42 PM [facility] Total Bilirubin 0.3 0.0 - 1.4 mg/dL LAB CHEMISTRY METHOD 04/06/2024 6:42 PM [facility] Blood Venous blood specimen / Unknown Venipuncture / Unknown 04/06/2024 2:00 PM EST 04/06/2024 2:00 PM EST Magen Velasco DPM LAB BLOOD ORDERABLES Final Result [facility] [address] [place] [address], from [place] [address] [place] [address] [place] [address] [facility] MEDICARE Member Subscriber Plan / Payer (Ef fective 2023-Present) Name:Jennifer Palmer Relation to Subscriber:Self Name:Jennifer Palmer Payer ID:[id number] Group ID:[id number] Type:Not on file Address: [address] [place] [address] Care Teams Pulmonologist/Intensivist Relationship Specialty Start Date End Date Berkley Bird MD [address] [address] PCP - General Internal Medicine 02/20/24
--- OUTSIDE RECORDS SUMMARY | 2024-06-10 09:49 | XMS_ITS | Encounter Summary ---
Author Organization [employer] Address [address] [place] [address] [address] [place] [address] Care Team Providers Care Shot Hole Shooter Name Role Phone Emy Askew MD Primary Care Pro vider Reason for Visit * Reason Comments Med Refill Encounter Details Date Type Department Care Team ([facility] st Contact Info) Description 02/09/2023 Refill [facility] [address] [place] [address] Emy Askew MD [address] [place] [address] Social History Tobacco Use Types Packs/Day Years [...] 11:15 AM EDT Office Visit [facility] [address] [place] [phone] Emy Askew MD [address] [place] [phone] documented as of this encounter Visit Diagnoses Not on filedocumented in this encounter Additional Health Concerns Assessment Noted Time PHQ-9 Depression Total Score: 16 023 10:16 AM EDT documented as of this encounter Care Teams Shot Hole Shooter Relationship Specialty Start Date End Date Emy Askew MD [address] [place] [phone] PCP - General Internal Medicine 07/25/22 documented as of this encounter
--- OUTSIDE RECORDS SUMMARY | 2024-06-10 09:49 | XMS_ITS | Encounter Summary ---
Author Organization [facility] Address [address] [place] [address] [address] [place] [address] Care Team Providers Care Vocational Aide Name Role Phone Cyn Bosch MD Primary Care Provider Kenya Delong [facility] Primary Care Provider [phone] Emy Askew MD Primary Care Pro vider Encounter Details Date Type Department Care Team (Latest Contact Info) Description 09/30/2018 Abstract [facility] CONVERSIONS Dental, Provider, DDS Social History [...] Description 07/16/2024 11:15 AM EDT Office Visit [facility] [address] [place] [address] Emy Askew MD [address] [place], [place] [phone] documented as of this encounter Visit Diagnoses Not on filedocumented in this encounter Care Teams Vocational Aide Relationship Specialty Start Date End Date Cyn Bosch MD PCP - General Family Medicine 08/20/19 01/21/22 Kenya Sol FNP [address] [place] [address] PCP - General Family Medicine 01/22/22 07/24/22 Emy Askew MD [address] [place] [address] [place] [address] PCP - General Internal Medicine 07/25/22 documented as of this encounter
== END 2024-06-10 09:13 | disposition home or self-care (01) ==
LOC: HO.HHCX 09:12
PROVIDERS: Visit Provider Emergency Medicine
DX: R51.9 Headache, unspecified (principal); M54.2 Cervicalgia
CPT/HCPCS: 72040

== ENCOUNTER → 2024-06-10 09:13 | Outpatient (BNV) | payer OTHER, SELFPAY | PROVIDERS: Visit Provider Radiology Diagnostic Radiology | DX: M43.12 Spondylolisthesis, cervical region (principal) | CPT/HCPCS: 72040 ==

== ENCOUNTER 2024-06-16 10:03 | Outpatient (AMB) | payer OTHER, SELFPAY ==
[2024-06-16 10:17] VITALS: BP 120/80; PULSE 83; O2SAT 89; BMI 25.5
--- NOTE | 2024-06-16 10:17 | A.OFFVIS_ITS ---
Vital Signs 06/16/24 10:17 Height 5 ft 2 in Weight 139 lb 5.314 oz BMI 25.5 BP 120/80 Blood Pressure Location Lt brachial Position Sitting Pulse 83 Pulse Source Pulse Oximeter Pulse Oximetry (%) 89 L Oxygen Delivery Method Room Air Intake Visit Reasons: T2DM/elevated PTH Intake Note: Patient presents today for D2MT follow up visit and Elevated PTH. Last Diabetic Eye exam: 01/2024 Last Podiatry Visit: 04/2024 Random Glucose: 263 mg/dl HgA1c: 8.1% Property Management Intern Required: No Accompanied by: Self / Same As Patient Allergies codeine [Codeine] Allergy (Mild, Verified 06/16/24 10:42) BURNING IN CHEST, chest pain sulfamethoxazole [From Bactrim] Allergy (Mild, Verified 06/16/24 10:42) ITCH,RASH Medication List - Last Reconciled 06/16/24 by Haydee Roper MD aspirin 81 mg PO DAILY atorvastatin 20 mg PO BEDTIME blood glucose control high,low (FreeStyle Control solution) Twice a month blood sugar diagnostic (FreeStyle Lite Strips) 4 times a day 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 meter (FreeStyle Lite Meter kit) As directed calcium carbonate 600 mg PO QAM carvedilol 25 mg PO BID cevimeline 1 cap PO QAM cholecalciferol (vitamin D3) 50 mcg PO DAILY clonazepam 0.5 mg PO DAILY PRN clonidine HCl 0.1 mg PO BID dapagliflozin propanediol (Farxiga) 10 mg PO DAILY diltiazem HCl ER 360 mg PO DAILY docusate sodium (DOK) 100 mg PO DAILY duloxetine 60 mg PO BEDTIME folic acid 1 mg PO DAILY furosemide 20 mg PO DAILY gabapentin 300 mg PO BID hydrocortisone 2.5% (Proctosol HC) 1 appl ND BEDTIME PRN lancets (TRUEplus Lancets) 4 times a day leflunomide 20 mg PO DAILY loratadine 10 mg PO DAILY PRN losartan 100 mg PO DAILY melatonin 10 mg PO BEDTIME PRN naproxen 500 mg PO BID PRN semaglutide (Ozempic) 2 mg (0.75 mL) subcut QWEEK sennosides (senna) 17.2 mg PO DAILY PRN HPI Comments Details: 63-year-old female coming in today for follow up of type 2 diabetes mellitus as well as evaluation for hyperparathyroidism. She was last seen her in our clinic for type 2 diabetes mellitus back in 2021. Past medical history: Diabetes type 2 hypertension, dyslipidemia, COPD, SOY, GERD, migraines, depression, Sjogren's syndrome, arthritis Diabetes mellitus History of diabetes Diagnosed in 2015 Prior therapy: Trulicity stopped in October 2023 due to worsening control , acarbose 50mg TID before meals. Intolerant of metformin as it gave her reflux Current regimen: Farxiga 10 mg daily Ozempic 1 mg weekly on Wednesdays ( increased from 0.5 mg to 1 mg in January 2024) Reports symptoms of hyperglycemia including polyphagia, polyuria, polydipsia. Denies any hypoglycemic symptoms. SMBG's Checks fasting sugars daily 170s to 190s avg 195 Random Glucose: 263 mg/dl HgA1c: 8.2% 12/25/23 a1c 8.1 % 06/16/24 Complications Eye exam: Last Diabetic Eye exam: 01/2024, no retinopathy Last Podiatry Visit: Doesn't have one Neuropathy: does report symptoms of neuropathy with burning pain in feet , on gabapentin 400 mg BID Kidney disease: urine tonny /creatinf ratio from elevated at 155 up from 19 back in 2022, GFr >60 from December 2023 Macrovascular complications: No history of macrovascular complications. Statin: on atorvastatin 20 mg daily , LDL 65 from Dec 2023 at goal of <70 but TGL high at 232 SAL/ARB: on losartan 100 mg daily BP at goal today on corge 25 BID , losartan 100 mg daily , furosemide 20 mg daily Exercise: limited she says Diet control: Daughter lives with her and does most of the cooking BF 7 am: bread with eggd, coffee with 2 sugars, 1 creamer Lunch at noon: cereal conrflakes with milk Dinner at 4 pm: rice with beans , pork or chicken No dessert Soda or jim eri not diet twice a day with meals He has never had any hospitalizations for hyperglycemia/hypoglycemia. Hyperparathyroidism Lab from 12/25/2023 showed elevated PTH level of 141.5. Unclear why this was done. Her calcium levels have always been normal mostly anywhere from 9.2-10.1. Albumin of 4 mostly. Once she had a borderline high calcium of 10.2, however albumin was 3.9 so if we corrected this would be 10. No ionized calcium in the chart. Normal vitamin-D level of 53.3. Normal kidney function from December 2023 with the GFR of greater than 60, creatinine of 0.73. DEXA scan September 2023 showed normal bone density. No history of kidney stones, renal ultrasound from June 2023 without any evidence of kidney stones. Mother had kidney stones , sister had kidney stones Surgical menopause with hysterectomy at age 25 for control ??? per patient still had ovaries, started having hot flashes at 50 Vitamin D 2000 units daily on calcium 600 mg daily plus some milk in cereal, no yogurt, cheese often Interval history Labs from 02/17/2024 showed normal calcium of 9.2, with normal ionized calcium of 5.1, phosphorus normal at 3, magnesium of 2.2, normal kidney function, PTH of 96.5, 24 hour urine collection showed 24 hour urine calcium of 177 which for her creatinine level low slightly elevated, fractional excretion of calcium is 0.028 Concern for primary hyperaldosteronism History of hypertension, currently well-controlled on losartan 100 mg daily, Coreg 25 mg b.i.d. and furosemide 20 mg daily. Noted to have history of hypokalemia on chart review with potassium recently at 3 from May 2024 No history of stroke or heart attack. Physical exam General: sitting comfortably in no acute distress HEENT: normocephalic/atraumatic, Neck: supple, symmetrical Cardiac: normal heart sounds Pulm: normal breath sounds B/L, no added breath sounds Abd: not distended, no tenderness Extremities: no edema, no signs of myxedema Neuro: AAO x3, Speech: normal, no facial droop, moving all 4 extremities Skin: no rash Foot exam: intact sensation to monofilament, intact pulses, intact vibration Laboratory Tests 03/21/18 05/04/18 05/06/18 09:30 08:02 07:00 Creatinine Estimated GFR Glucose (Clinic) Random Glucose Hemoglobin A1c % Calcium 9.6 8.4 D Albumin 4.1 Triglycerides Cholesterol LDL Cholesterol, Calc HDL Cholesterol 25-OH Vitamin D Total TSH PTH Intact Urine Creatinine Urine Microalbumin Microalb/Creat Ratio 11/27/18 12/08/19 12/21/20 08:00 13:14 14:35 Creatinine Estimated GFR Glucose (Clinic) Random Glucose Hemoglobin A1c % 5.7 Calcium 9.9 Albumin 3.8 Triglycerides Cholesterol LDL Cholesterol, Calc HDL Cholesterol 25-OH Vitamin D Total TSH PTH Intact Urine Creatinine Urine Microalbumin Microalb/Creat Ratio 01/21/21 07/12/21 04/11/22 22:07 16:53 15:11 Creatinine Estimated GFR Glucose (Clinic) Random Glucose Hemoglobin A1c % Calcium 9.6 10.1 9.5 Albumin 4.0 Triglycerides Cholesterol LDL Cholesterol, Calc HDL Cholesterol 25-OH Vitamin D Total TSH PTH Intact Urine Creatinine Urine Microalbumin Microalb/Creat Ratio 10/04/22 10/26/22 04/04/23 09:42 13:54 08:42 Creatinine Estimated GFR Glucose (Clinic) Random Glucose Hemoglobin A1c % 8.2 7.8 H Calcium 9.3 10.2 D 9.2 D Albumin 3.8 3.9 3.9 Triglycerides Cholesterol LDL Cholesterol, Calc HDL Cholesterol 25-OH Vitamin D Total TSH PTH Intact Urine Creatinine 115.21 Urine Microalbumin 22.0 Microalb/Creat Ratio 19.0 12/25/23 12/25/23 02/10/24 07:05 07:08 12:52 Creatinine 0.73 Estimated GFR > 60 Glucose (Clinic) 207 H Random Glucose 175 H Hemoglobin A1c % 8.2 H Calcium 9.5 Albumin 4.0 Triglycerides 232 H Cholesterol 154 LDL Cholesterol, Calc 64 HDL Cholesterol 44 25-OH Vitamin D Total 53.3 TSH 1.65 PTH Intact 141.5 H Urine Creatinine 50.21 Urine Microalbumin 78.0 Microalb/Creat Ratio 155.3 H Laboratory Tests 04/11/22 04/04/23 12/25/23 15:11 08:42 07:08 Potassium 3.1 L 3.5 Renin Activity 0.95 Aldosterone 8 Aldosterone/Renin Ratio 8.4 Random Cortisol 11.7 Laboratory Tests 04/04/23 12/25/23 02/17/24 08:42 07:05 06:30 Sodium Potassium Creatinine Estimated GFR Random Glucose Calcium Ionized Calcium Phosphorus Magnesium Albumin Renin Activity 0.95 Aldosterone 8 Renin PTH Intact Ur 24 Hour Volume 1625 Ur Creatinine mg/dL 35.04 Ur Creatinine 24 Hour 0.6 L Microalb/Creat Ratio 155.3 H Ur Sodium 24 Hour 123.5 Ur Calcium 24 Hr 177 Calcium/Creat 24 Hr 321 H Ur Total Volume 1625 Ur Aldosterone 24 Hr 1.3 Urine Creatinine 0.55 02/17/24 06/04/24 11:20 09:51 Sodium 142 143 Potassium 3.4 3.0 L Creatinine 0.82 0.68 Estimated GFR > 60 > 60 Random Glucose 232 H 165 H Calcium 9.2 9.2 Ionized Calcium 5.1 Phosphorus 3.0 Magnesium 2.2 Albumin 3.8 Renin Activity Aldosterone 9 Renin 0.47 PTH Intact 96.5 H Ur 24 Hour Volume Ur Creatinine mg/dL Ur Creatinine 24 Hour Microalb/Creat Ratio Ur Sodium 24 Hour Ur Calcium 24 Hr Calcium/Creat 24 Hr Ur Total Volume Ur Aldosterone 24 Hr Urine Creatinine Imaging BONE DENSITOMETRY 09/24 CLINICAL INDICATION: Encounter for screening for osteoporosis. COMPARISON: Baseline BD dated 11/17/2010. TECHNIQUE: Using a zanda DXA System (software version: 13.1) manufactured by [employer], dual-energy x-ray absorptiometry was performed of the lumbar spine and left hip. The images are of good technical quality. Summary results are attached. FINDINGS: AP SPINE L1-L4: Current: BMD 1.325 g/cm2, Z-score 2.7, T-score 1.2, normal, 0.4% increase from baseline (<5% change is not significant). Baseline: BMD 1.320 g/cm2. LEFT FEMUR, NECK: Current: BMD 1.085 g/cm2, Z-score 1.8, T-score 0.3, normal. Baseline: BMD 1.110 g/cm2. LEFT FEMUR, TOTAL: Current: BMD 1.168 g/cm2, Z-score 2.4, T-score 1.3, normal, 1.1% decrease from baseline (<5% change is not significant). Baseline: BMD 1.181 g/cm2. IDENTIFIED RISK FACTORS: Recurrent falls. Hysterectomy. Menopause. HISTORY OF FRACTURE: None listed. MEDICATIONS: Calcium supplement and/or multivitamin. Vitamin D. MM/XR DEXA axial skeleton IMPRESSION: 1. DIAGNOSIS: Normal bone density based on the lowest T-score value of 0.3 in the femoral neck applying World Health Organization criteria. 2. 10-YEAR FRACTURE RISK PREDICTION, FRAX: According to the guidelines, FRAX calculation should only be performed on patients in the osteopenia bone density category.?Therefore, FRAX was not performed on this patient.? EXAMINATION: ULTRASOUND RENAL WITH DOPPLER 06/25 CLINICAL INFORMATION: Hypertension; question renal artery stenosis. COMPARISON: None. TECHNIQUE: Real-time grayscale, color Doppler, and duplex Doppler evaluation of the kidneys and renal vasculature was performed. FINDINGS: RENAL MEASUREMENTS: Right: 11.2 x 5.4 x 5.8 cm (Sag x AP x TV) Left: 12.0 x 4.7 x 4.7 cm (Sag x AP x TV) The renal parenchyma appears normal. At the interpolar right kidney, 1.5 cm and 0.7 cm benign, simple cysts are seen, which require no imaging follow-up. At the interpolar aspect of the left kidney, a 2.7 cm benign, simple cyst, which requires no imaging follow-up. No definite renal calculus is seen. There is no hydronephrosis. DOPPLER INTERROGATION: Aorta: 83 cm/sec Right Main Renal Artery: Proximal: 94 cm/sec Mid: 124 cm/sec Distal: 66 cm/sec Left Main Renal Artery: Proximal: 96 cm/sec Mid: 89 cm/sec Distal: 84 cm/sec Renal-Aortic Ratio (RAR): Right: 1.49 Left: 1.16 Bilateral upper pole, interpolar and lower pole segmental arteriolar resistive indices are within normal limits. Bilateral upper pole, interpolar and lower pole segmental arteriolar pulse doppler waveforms are unremarkable, with uniformly rapid upstrokes and no parvus et tardus configuration. US/US renal BI IMPRESSION: Unremarkable renal ultrasound including Doppler. No hemodynamically significant renal artery stenosis is noted bilaterally. [facility] Medical History (Updated 05/09/24 @ 14:53 by Gabriel Hernandez MD) Hyperparathyroidism DM2 (diabetes mellitus, type 2) Vitamin D deficiency 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 rheumatoid arthritis MCC (current) use of insulin SOY (obstructive sleep apnea) COPD (chronic obstructive pulmonary disease) Sicca syndrome Constipation Alopecia Sjogrens syndrome Osteoarthritis Rheumatoid arthritis Fibromyalgia Back pain Difficulty swallowing GERD (gastroesophageal reflux disease) Depression Asthma Elevated cholesterol HTN (hypertension) Surgical History History of laryngoscopy Hx of hemorrhoidectomy History of bladder suspension procedure Hx of dilation and curettage Hx of tubal ligation History of repair of left rotator cuff Hx of colonoscopy History of esophagogastroduodenoscopy (EGD) Family History Father Cancer Mother Heart disease Diabetes Social History Household Members: Children and Other Household Members Other:: daughter, grandkids Are you a primary long term care social worker to a significant other at home: No Do you presently have visiting nurse or other home services: No Alcohol intake: never Patient Tobacco Use Status: Never used Tobacco e-Cigarette/Vaping Use: Never Used Second Hand Smoke Exposure: No 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al status: disabled 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 Physical Exam Vital Signs: Last Vital Signs Pulse 83 06/16/24 10:17 BP 120/80 06/16/24 10:17 Pulse Ox 89 L 06/16/24 10:17 Oxygen Delivery Method Room Air 06/16/24 10:17 BMI result Body Mass Index 25.5 Results AMB Hemoglobin A1c AMB Hemoglobin A1c 8.1 % Last Edit by INOCENCIA Albrecht on 06/16/24 11:20 Results Reviewed Results Reviewed: Laboratory Last Values Glucose (Clinic) 263 mg/dL (60-115) H 06/16/24 10:45 Assessment & Plan Assessment & Plan (1) DM2 (diabetes mellitus, type 2): Code(s): E11.9 - Type 2 diabetes mellitus without complications Category: Medical Qualifiers: Diabetes mellitus detention insulin use: without detention use Diabetes mellitus complication status: with neurologic complications Diabetes mellitus complication detail: with polyneuropathy Qualified Code(s): E11.42 - Type 2 diabetes mellitus with diabetic polyneuropathy Plan: 63-year-old female coming in today for follow up of type 2 diabetes mellitus without long-term insulin use with complications of neuropathy. A1c at 8.1% 06/16/2024 which is down from 8.2% on 12/25/2023 up from 7.8% in April 2023 PCP switched from Trulicity to Ozempic in October 2023 and she was titrated on the Ozempic from 0.5 mg weekly to 1 mg weekly January 2024. He is also on Farxiga 10 mg daily. I will increase her Ozempic today given A1c still above goal A1c of 7%. Plan: -increase Ozempic to 2 mg weekly -continue Farxiga 10 mg daily -continue to monitor blood sugars daily with fasting and a few 2 hours post meal -lamp assembler referral placed, she does have some dietary indiscretion, counseled regarding eliminating soda and lowering sugar in coffee, we will also have her see lamp assembler (2) HTN (hypertension): Code(s): I10 - Essential (primary) hypertension Category: Medical Qualifiers: Hypertension type: essential hypertension Qualified Code(s): I10 - Essential (primary) hypertension Plan: Blood pressure at goal today. It seems like at some point her blood pressure was uncontrolled, she is currently on losartan 100 mg daily, furosemide 20 mg daily carvedilol 25 mg b.i.d.. She was being worked up for resistant hypertension which showed normal renal Doppler. She was noted to have a suppressed renin of 0.95, with a 1 evidence of low potassium of 3.1, otherwise normal potassium levels. Aldosterone was 8. Technically she did not need the cut off for primary hyperaldosteronism however this is a spectrum and with a suppressed renin while someone is on an Sal or Arb such as losartan, as suspicious. We did a baseline 24 hour urine collection as you were evaluating her for hypercalciuria, that collection in February 2025, her aldosterone was low at 1.3 because sodium was not high enough. We will do salt loading testing. Plan: -ordered 24 hour urine aldosterone, sodium, creatinine, BMP -follow up in 8 weeks to discuss results -even if aldosterone is not elevated, given suppressed renin, she might benefit from MRA antagonist such as spironolactone for low renin hypertension (3) Hyperparathyroidism: Code(s): E21.3 - Hyperparathyroidism, unspecified Category: Medical Plan: Lab from 12/25/2023 showed elevated PTH level of 141.5. Unclear why this was done. Her calcium levels have always been normal mostly anywhere from 9.2-10.1. Albumin of 4 mostly. Once she had a borderline high calcium of 10.2, however albumin was 3.9 so if we corrected this would be 10. No ionized calcium in the chart. Normal vitamin-D level of 53.3. Normal kidney function from December 2023 with the GFR of greater than 60, creatinine of 0.73. DEXA scan September 2023 showed normal bone density. No history of kidney stones, renal ultrasound from June 2023 without any evidence of kidney stones. Mother had kidney stones , sister had kidney stones Given normal vitamin-D level, this is not secondary hyperparathyroidism. Kidney function is on so unremarkable. Labs from 02/17/2024 showed normal calcium of 9.2, with normal ionized calcium of 5.1, phosphorus normal at 3, magnesium of 2.2, normal kidney function, PTH of 96.5, 24 hour urine collection showed 24 hour urine calcium of 177 which for her creatinine level low slightly elevated, fractional excretion of calcium is 0.028. I do not think the 24 hour urine calcium level is high enough to cause hyperparathyroidism. Most likely differe ntial would be normocalcemic hyperparathyroidism. Given that her kidney function in with GFR greater than 60, no history of kidney stones with clear renal ultrasound recently, normal bone density scan, and no ronald hypercalciuria, for now we will just continue to monitor. Plan: -repeat calcium,, albumin, phosphorus, PTH, ionized calcium, vitamin-D levels in 6 months sometime around December 2024 Plan I spent 30 minutes in reviewing the record, seeing the patient and documenting in the medical record. Orders: Orders Creatinine, 24 Hr Group Today I10 - Essential (primary) hypertension Aldosterone, 24Hr Urine Today I10 - Essential (primary) hypertension Sodium, 24Hr Urine Group Today I10 - Essential (primary) hypertension Basic Metabolic Panel Today I10 - Essential (primary) hypertension AMB Hemoglobin A1c Today E11.42 - Type 2 diabetes mellitus with diabetic polyneuropathy, Z13.9 - Encounter for screening, unspecified Medications: New semaglutide (Ozempic) 2 mg (0.75 mL) subcut QWEEK 3 mL 7RF Discontinued semaglutide (Ozempic) Discontinued Reason: Doctor's Order 1 mg (0.75 mL) subcut QWEEK 3 mL 6RF Patient Instructions: your blood work is suggestive of over secretion of aldosterone as we had suspected. I would like you to do confirmatory testing with a 24 hour urine collection and blood work done on the same day as a 24 hour urine collection is handed in. For the 24 hour urine test, you need to do oral sodium loading. Please drink a can of Good soup (with high sodium content) morning and evening for 3 days in addition to your normal food and on the morning of the third day start the 24 hour urine collection and on the 4 th day as you go in to hand in the urine to the lab please also do blood work at the same time. Instruction for 24 hour urine collection 24 hr urine collection instructions You have been asked to collect your urine for 24 hours to assess for aldosterone excretion. You must choose a 24 hour period of time when you will be home. The morning of the first day, DISCARD the FIRST morning void and then note the time. You will collect every single void from then on for 24 hours. For example, if you wake up at 6am and urinate, flush down that void. You will then collect every drop of urine all day and all night through 6am the following day. You will urinate one last time at 6am for the collection. The jug of urine must be kept in the refrigerator until you bring it to the lab. for Diabetes Increase Ozempic to 2 mg weekly Coding Level of Care Code Est Pt Level 4 (82522) Complex EM visit Add On G2211 Diagnoses Type 2 diabetes mellitus with diabetic polyneuropathy, without long-term current use of insulin E11.42 Diabetes mellitus terminologist insulin use: without terminologist use Diabetes mellitus complication status: with neurologic complications Diabetes mellitus complication detail: with polyneuropathy Essential hypertension I10 Hypertension type: essential hypertension Hyperparathyroidism E21.3 Time Spent (min) 30
[2024-06-16 10:48] LABS: Glucose, Whole Blood 263 mg/dL (60-115)
--- OUTSIDE RECORDS SUMMARY | 2024-06-16 11:41 | XMS_ITS | Encounter Summary ---
Author Organization [facility] Address [address] [place] [address] [address] [place] [address] Care Team Providers Care Associate Professor Of Philosophy Name Role Phone [facility] Primary Care Provider [phone] Emy Askew MD Primary Care Pro vider Reason for Visit * Reason Onset Date Comments VISION 03/13/2022 Encounter Details Date Type Department Care Team ([facility] st Contact Info) Description 03/13/2022 Telephone [facility] MEDICINE [address] [place] [address] [facility] [address] [place] [address] VISION Social History Tobacco Use Types Packs/Day [...] center regarding an eye exam. Please contact [phone] documented in this encounter Plan of Treatment Upcoming Encounters Date Type Department Care Team (Late st Contact Info) Description 07/16/2024 11:15 AM EDT Office Visit [facility] MEDICINE [address] [place] [id number] Emy Askew MD [address] [place] [phone] documented as of this encounter Visit Diagnoses Diagnosis Diabetes 1.5, managed as type 2 (CMS/HCC) documented in this encounter Care Teams Associate Professor Of Philosophy Relationship Specialty Start Date End Date Kenya Sol FNP [address] [place] [id number] PCP - General Family Medicine 01/22/22 07/24/22 Emy Askew MD [address] [place] [id number] PCP - General Internal Medicine 07/25/22 documented as of this encounter
--- OUTSIDE RECORDS SUMMARY | 2024-06-16 11:41 | XMS_ITS | Clinical Summary ---
Author Organization [facility] Address [address] [place] [address] Phone Care Team Providers Care Office Spec Name Role Phone Berkley Bird MD Primary [...] HLD (hyperlipidemia) 12/22/2012 Depression 12/22/2012 Rheumatoid arthritis (CMS/HCC V24, CMS/HCC V28) 12/22/2012 Asthma 12/22/2012 Encounters Date Type Department Care Team Description 04/06/2024 1:30 PM EST Office Visit Orthopedic Surgery [place] [address] [phone] Magen Velasco DPM Controlled type 2 diabetes with neuropathy ([facility] V24, [facility] V28) (Primary Dx); Pain in toes of both [...] 07/09/2024 9:15 AM EDT Office Visit Orthopedic [facility] [address] [phone] Magen Velasco DPM [address] [address] Health Maintenance Due Date Last Done Comments [...] Velasco DPM LAB BLOOD ORDERABLES Final Result [facility] [address] [place] [address], from Last [address] [place] [phone] [facility] MEDICARE Member Subscriber Plan / Payer (Ef fective 2023-Present) Name:Jennifer Palmer Relation to Subscriber:Self Name:Jennifer Palmer Payer ID:[id number] Group ID:[id number] Type:Not on file Address: [address] [place] [address] Care Teams Office Spec Relationship Specialty Start Date End Date Berkley Bird MD [address] [address] PCP - General Internal Medicine 02/20/24
--- OUTSIDE RECORDS SUMMARY | 2024-06-16 11:41 | XMS_ITS | Encounter Summary ---
Author Organization [employer] Address [address] 7[address] [place] [address] Care Team Providers Care Orthodontist Small Business Owner Name Role Phone Emy Askew MD Primary Care Pro vider Encounter Details Date Type Department Care Team (Late st Contact Info) Description 08/07/2023 Orders Only [facility] MED & PEDS [address] [place] [address] Valeria Armas FNP [address] [place] [address] Social History Tobacco Use Types Packs/Day Years [...] Description 07/16/2024 11:15 AM EDT Office Visit [facility] MEDICINE [address] [place] [address] Emy Askew MD [address] [place] [address] documented as of this encounter Visit Diagnoses Not on filedocumented in this encounter Additional Health Concerns Assessment Noted Time PHQ-9 Depression Total Score: 16 023 10:16 AM EDT documented as of this encounter Care Teams Orthodontist Small Business Owner Relationship Specialty Start Date End Date Emy Askew MD [address] [place] [address] PCP - General Internal Medicine 07/25/22 documented as of this encounter
--- OUTSIDE RECORDS SUMMARY | 2024-06-16 11:41 | XMS_ITS | Encounter Summary ---
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 Hold am of surgery lasix,amytriptiline,lisinopril ??.HoldASA 5 days prior procedure and avoid NSAIDS 7 days prior procedure. Thanks documented in this encounter Plan of Treatment Upcoming Encounters Date Type Department Care Team (Late st Contact Info) Description 07/16/2024 11:15 AM EDT Office Visit [facility] MEDICINE [address] [place] [phone] Emy Askew MD [address] [place] [address] documented as of this encounter Visit Diagnoses Not on filedocumented in this encounter Additional Health Concerns Assessment Noted Time PHQ-9 Depression Total Score: 16 023 10:16 AM EDT documented as of this encounter Care Teams Dough Panner Relationship Specialty Start Date End Date Emy Askew MD [address] [place] [address] PCP - General Internal Medicine 07/25/22 documented as of this encounter
--- OUTSIDE RECORDS SUMMARY | 2024-06-16 11:41 | XMS_ITS | Encounter Summary ---
Author Organization [employer] Address [address] 7[address] [place] [address] Care Team Providers Care Correspondence Analyst Name Role Phone Emy Askew MD Primary Care Pro vider Encounter Details Date Type Department Care Team ([facility] st Contact Info) Description 02/23/2024 Orders Only [facility] MEDICINE [address] [place] [address] Provider, MD Waylon Social History Tobacco Use [...] Description 07/16/2024 11:15 AM EDT Office Visit [facility] MEDICINE [address] [place] [address] Emy Askew MD 230 [place] [address] documented as of this encounter Procedures Procedure [...] documented as of this encounter Care Teams Correspondence Analyst Relationship Specialty Start Date End Date Emy Askew MD 230 [place] [address] PCP - General Internal Medicine 07/25/22 documented as of this encounter
--- OUTSIDE RECORDS SUMMARY | 2024-06-16 11:41 | XMS_ITS | Encounter Summary ---
Author Organization [employer] Address [address] [facility] 7t [place] [address] Care Team Providers Care Geospatial Extractor Analysis Name Role Phone Emy Askew MD Primary Care Pro vider Reason for Visit * Reason Onset Date Comments Results 06/11/2024 Encounter Details Date Type Department Care Team ([facility] Contact Info) Description 06/11/2024 Telephone [facility] 230 [place], [place] [phone] Mehul Alexis MD 230 [place] [address] Results Social History Tobacco Use Types Packs/Day [...] encounter Miscellaneous Notes * Telephone Encounter - Thelma Chaudhary RN - 06/11/2024 9:02 AM EDT Call placed to patient. Voicemail box full. Patient to follow [email or web address] [id number] ----- Message from Mehul Alexis MD sent at 06/10/2024 4:30 PM EDT ----- Please notify Jennifer that her cervical spine x-ray from today was read as arthritic changes. Thank you David documented in this encounter Plan of Treatment Upcoming Encounters Date Type Department Care Team (Late st Contact Info) Description 07/16/2024 11:15 AM EDT Office Visit [facility] MEDICINE [address] [place] [address] Emy Askew MD 230 [place] [address] documented as of this encounter Visit Diagnoses Not on filedocumented in this encounter Additional Health Concerns Assessment Noted Time PHQ-9 Depression Total Score: 10 024 2:37 PM EDT documented as of this encounter Care Teams Geospatial Extractor Analysis Relationship Specialty Start Date End Date Emy Askew MD [address] [place] [address] PCP - General Internal Medicine 07/25/22 documented as of this encounter
--- OUTSIDE RECORDS SUMMARY | 2024-06-16 11:41 | XMS_ITS | Encounter Summary ---
Author Organization [employer] [facility] Address [address] [place] [address] 7t [place] [address] Care Team Providers Care Universal Grinder Tool Name Role Phone [facility] Primary Care Provider [phone] Emy Askew MD Primary Care Pro vider Reason for Visit * Reason Onset Date Comments Med Refill 05/11/2022 Encounter Details Date Type Department Care Team (Late st Contact Info) Description 05/11/2022 Telephone [facility] MEDICINE 230 [place] [address] [facility] 230 [place], [place] [phone] Med Refill Social History Tobacco Use Types [...] has lost the device. Please sent to [facility] - [place], [place] - [address] [place] [address] documented in this encounter Plan of Treatment Upcoming Encounters Date Type Department Care Team ([facility] st Contact Info) Description 07/16/2024 11:15 AM EDT Office Visit [facility] MEDICINE [address] [place] [address] Emy Askew MD [address] [place] [address] documented as of this encounter Visit Diagnoses Not on filedocumented in this encounter Care Teams Universal Grinder Tool Relationship Specialty Start Date End Date [place] RicaKen[place] FNP [address] [place] [address] PCP - General Family Medicine 01/22/22 07/24/22 Emy Askew MD [address] [place] [address] PCP - General Internal Medicine 07/25/22 documented as of this encounter
--- OUTSIDE RECORDS SUMMARY | 2024-06-16 11:41 | XMS_ITS | Encounter Summary ---
Author Organization [employer] Address [address] [place] [address] 7 [place] [address] Care Team Providers Care Volunteer Services Supervisor Name Role Phone Kenya Sol [facility] Primary Care Provider [phone] Emy Askew MD Primary Care Pro vider Encounter Details Date Type Department Care Team (Late st Contact Info) Description 05/28/2022 Orders Only [facility] CHC MED & PEDS [address] [place], [place] [phone] Candy Miller LPN Social History Tobacco Use [...] Description 07/16/2024 11:15 AM EDT Office Visit [facility] MEDICINE 230 [place], [place] [phone] Emy Askew MD 230 [place], [place] [phone] documented as of this encounter Visit Diagnoses Not on filedocumented in this encounter Care Teams Volunteer Services Supervisor Relationship Specialty Start Date End Date Kenya Sol FNP [address] [place] [phone] PCP - General Family Medicine 01/22/22 07/24/22 Emy Askew MD 230 [place] [address] PCP - General Internal Medicine 07/25/22 documented as of this encounter
--- OUTSIDE RECORDS SUMMARY | 2024-06-16 11:41 | XMS_ITS | Encounter Summary ---
Author Organization [employer] Address [address] [place] [address] [place] [address] Care Team Providers Care Ultrasound Tester Name Role Phone Emy Askew MD Primary Care Pro vider Reason for Visit * Reason Onset Date Comments Triage 07/31/2022 Encounter Details Date Type Department Care Team ([facility] st Contact Info) Description 07/31/2022 Telephone [facility] MEDICINE 230 [place] [address] Emy Askew MD [address] [place] [address] Triage Social History Tobacco Use Types Packs/Day [...] The caller accepted this outcome Patient speaks scottish. documented in this encounter Plan of Treatment Upcoming Encounters Date Type Department Care Team (Late st Contact Info) Description 07/16/2024 11:15 AM EDT Office Visit [facility] MEDICINE [address] [place] [address] [phone] Emy Askew MD [address] [place] [address] [phone] documented as of this encounter Visit Diagnoses Not on filedocumented in this encounter Care Teams Ultrasound Tester Relationship Specialty Start Date End Date Emy Askew MD [address] [place] [address] [phone] PCP - General Internal Medicine 07/25/22 documented as of this encounter
--- OUTSIDE RECORDS SUMMARY | 2024-06-16 11:41 | XMS_ITS | Encounter Summary ---
Author Organization [employer] [facility] Address [address] [place] [address] 7t [place] [address] Care Team Providers Care Primer Charging Tool Setter Name Role Phone [facility] Primary Care Provider [phone] Emy Askew MD Primary Care Pro vider Reason for Visit * Reason Onset Date Comments Appointment Request 06/07/2022 Encounter Details Date Type Department Care Team ([facility] st Contact Info) Description 06/07/2022 Telephone [facility] MEDICINE 230 [place] [address] [facility] [address] [place] [address] Appointment Request Social History Tobacco Use Types [...] with new provider. Please contact pt at [phone] documented in this encounter Plan of Treatment Upcoming Encounters Date Type Department Care Team (Late st Contact Info) Description 07/16/2024 11:15 AM EDT Office Visit [facility] MEDICINE [address] [place] [address] Emy Askew MD [address] [place] [address] documented as of this encounter Visit Diagnoses Not on filedocumented in this encounter Care Teams Primer Charging Tool Setter Relationship Specialty Start Date End Date Kenya Sol FNP [address] [place] [address] PCP - General Family Medicine 01/22/22 07/24/22 Emy Askew MD [address] [place] [address] PCP - General Internal Medicine 07/25/22 documented as of this encounter
--- OUTSIDE RECORDS SUMMARY | 2024-06-16 11:41 | XMS_ITS | Data Portability ---
Author Organization [employer] [facility], [place] [facility] Address [address] [place] [address] Care Team Providers Care Water Safety Instructor Name Role Phone [facility] OTHER [facility] OTHER Assessment Encounter Date Assessment Date Assessment LastModified by Organization Details LastModified Time 04/13/2024 04/13/2024 As noted, we were called to see this patient regarding concerns of URI symptoms. Evaluation in the field was performed by my last putter away colleague, as noted above, I provided real-time [...] QL IA, respiratory specimen 2024 025 [email or web address] [facility], [address] [place] [address], [phone] 14:42:18 rapid flu (A+B) 2024 025 [email or web address] [facility], [address] [place] [address], [phone] 5 14:42:21 Referral None recorded. Procedures None [...] Name and Address Organization Details Recorded Time 55953 codeine medicatio n Not available Not available Not available 04/13/2024 2670 RxNorm Not Available [facility] 5 09:12:08 99228 Bactrim medicatio n Not available Not available Not available 04/13/2024 31213 9 RxNorm Not Available [facility] - production 5 09:12:08 50759 sulfameth oxazole medicatio n Not available Not available Not available 04/13/2024 98742 RxNorm Not Available [facility] - production 5 09:12:08 26594 trimethop rim medicatio n Not available Not available Not available 04/13/2024 27659 RxNorm Not Available [facility] 5 09:12:08 Medications Name Sig [...] SNOMED-CT Code Diagnosis ICD10 Code Diagnosis Note [id number] Sebastian Vanessa MD Main - [facility] [address] [place] [phone] 04/13/2024 14:39:43 04/13/2024 21:52:34 Viral upper respiratory tract infection 229806086 J06.9 Health Concerns Section Related Observation LastModified by Organization Detai ls LastModified Time None Recorded Concern Status LastModified by Organization Details LastModified Time None Recorded Advance Directives Directive None Recorded Payers Encounter Date Sequence Insurance Name Policy Number Policy Mendez Covered Member ID Mendez Member ID Guarantor Name 04/13/2024 1 [facility] - DOS ON OR AFTER 2022 - DUAL ELIGIBLE - [facility] OPTIONS AND ONE CARE (MEDICARE REPLACEMENT/ADV ANTAGE - HMO) Jennifer Gu [id number] Jennifer Gu Notes Date Note Type Note [...] at 04/13/2024 - 09:12 Comments: HPI reviewed Insurance Law Specialist Organization Information for Emanuel Paige Legal Name: [employer] Address: [address] [place] [address], Bomb Technician: Vinny Delgadillo MD CLIA No.: [id number] Insurance Law Specialist POC Test Results from Emanuel Paige - ALS Rapid influenza antigen (14:32:34) Flu: - Rapid COVID antigen (14:32:35) COVID: - ...................... ...................... ...................... ...................... ...................... ...................... ......... Insurance Law Specialist Note From Emanuel Paige: Dispatch to [...] test negative, rapid flu test positive negative. [facility] consulted. Red flags discussed. All times are approximate. ...................... ...................... ...................... ...................... ...................... ...................... ......... [facility] Consulted: Sebastian Vanessa ...................... ...................... ...................... ...................... ...................... ...................... ......... Disposition: Fulfilled Sebastian Vanessa MD [address] [place] [address],[address], [place], [address], [employer] [facility] 04/13/2024 15:34:43 OBGyn Episode No OBEpisode recorded.
--- OUTSIDE RECORDS SUMMARY | 2024-06-16 11:41 | XMS_ITS | Data Portability ---
Author Organization [place] [facility], Allergy Address [address] [place] [phone] Assessment No assessment recorded. Plan of Treatment Reminders Order Date Submit Date Provider Last Modified By Organization Details Last Modified Time Details Appointments None recorded. Lab None recorded. Referral None recorded. Procedures None recorded. Surgeries None recorded. Imaging [place], modified barium swallow study [address] [place] [address] [facility] Imaging Dept, [address] [place] [address], [address], 5 11:51:40 Medication Orders None recorded. Patient TargetsNo targets recorded. Patient InstructionsNo instructions recorded. Reason for Referral None Reported. Problems Name Problem SNOMED Code Status Onset Date Resolution Date Notes Provider Name and Address Organization Details Recorded Time Dysphagia 00605200 Active 2018 Other dysphagia; Note: Date Diagnosed: 05/13/2018 9:47 AM (R13.19) Not Available [facility] 4 02:27:43 [place] ce of salivary secretion 68565490 Active 2018 Xerostomia ; Note: Date Diagnosed: 05/13/2018 9:47 AM (K11.7) Not Available [facility] 4 02:27:54 Dysphonia 65531825 Active 2017 Hoarseness ; Note: Date Diagnosed: 02/17/2018 9:52 AM (R49.0) Not Available [facility] 4 02:27:44 Chronic sialadeni tis 840355868 Active 2016 Chronic sialoadeni tis; Note: Date Diagnosed: 07/04/2016 2:17 PM (K11.23) Not Available [facility] 4 02:27:48 Sj? ? 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 Active 2013 Diseases of the salivary glands: Hypertroph y; CMS Risk: moderate risk CMS Treatment: establishe d problem (to examiner): stable or improved N ote: Date Diagnosed: 12/30/2013 2:35 PM (527.1) Not Available [facility] 4 02:27:37 Bilateral hearing loss 35115440 Active 2018 Other specified hearing loss, bilateral; Note: Date Diagnosed: 08/12/2018 10:01 AM (H91.8X3) Not Available [facility] 4 02:27:41 Oropharyn geal dysphagia 31132310 Active 2024 UMESH DIAZ MD [address] [place] [address], [phone] , [facility] 5 13:35:47 Problem Notes None recorded. Procedures Surgical History Date Name Laterality Status Provider Name and Address Organization Details Recorded Time 03/13/2024 FFL_RE completed UMESH DIAZ MD [address] [place] [address], [phone], [facility] 03/13/2024 13:36:13 Imaging Results None recorded. Procedure Notes None recorded. Medical Equipment None Reported. Allergies Allergen ID Allergen Name Allergen Category Reaction Reaction Severity Criticality Documentation Date Start Date Code Code System Note Provider Name and Address Organization Details Recorded Time 77785 Bactrim medicatio n other Not available Not available 07/16/2023 19530 9 RxNorm React ion: unkno wn, unspe cifie d;; Not Available [facility] 4 00:55:51 67667 codeine sulfate medicatio n other Not available Not available 07/16/2023 38548 RxNorm React ion: unkno wn, unspe cifie d;; Not Available [facility] 4 00:55:56 Medications Name Sig Start Date Stop Date Status Note LastModified by Organization Details LastModified Time medbox status USE DIRECTED active Not Available Not Available No t Available furosemid e 40 mg tablet TAKE 1 TABLET BY MOUTH EVERY MORNING active Not Available Not Available No t Available Augmentin 875 mg-125 mg tablet 2017 active Medicati on ID: 502758 D uration Value: 5 Prescri bed By [...] nebulizat ion 2018 active Medicati on ID: 275505 D uration Value: 5 Brand Name: albutero [...] mg tablet 2018 active Medicati on ID: 253333 D uration Value: 30 Brand Name: lisinopr [...] mg tablet 2018 active Medicati on ID: 848773 D uration Value: 30 Brand Name: buspiron e Send Method: E-Prescr ibed Sub s Allowed: subs OK Speci al Instruct ion: TAKE 1 TABLET BY MOUTH THREE TIMES DAILY NEEDED ANXIETY Medicati onGeneri cName: buspiron e Not Available Not Available Not Available Tiazac 120 mg capsule,e xtended release 02/04 completed Medicati on ID: 17634 Re ason: () Brand Name: Tiazac S [...] elayed release 2018 active Medicati on ID: 895089 D uration Value: 30 Brand Name: omeprazo le Send Method: E-Prescr ibed Sub s Allowed: subs OK Speci al Instruct ion: TAKE 1 CAPSULE TWICE DAILY IN THE MORNING AND IN THE EVENING 1 HORA AN KALEN DE LAS COMIDAS Medicati onGeneri cName: omeprazo le Not Available Not Available Not Available Aspirin Childrens 81 mg chewable tablet 2013 active Medicati on ID: 69091 Br and Name: Aspirin Children s Send [...] mg tablet 2018 active Medicati on ID: 723379 D uration Value: 30 Brand Name: levon post ne Send Method: E-Prescr ibed Sub s Allowed: subs OK Speci al Instruct ion: TAKE 2 TABLETS BY MOUTH ONCE DAILY IN THE MORNING Medicati onGeneri cName: levon jenkinsqui ne Not Available Not Available Not Available ibuprofen 600 mg tablet 2018 active Medicati on ID: 491903 D uration Value: 30 Brand Name: ibuprofe [...] 24 hr 2018 active Medicati on ID: 017730 D uration Value: 30 Brand Name: metformi n Send Method: E-Prescr ibed Sub s Allowed: subs OK Speci al Instruct ion: TAKE 1 TABLET BY MOUTH TWICE DAILY IN THE MORNING AND IN THE EVENING W ITH FOOD Med icationG enericNa me: metformi n Not Available Not Available Not Available Ambien 5 mg tablet 2013 active Medicati on ID: 28525 Br and Name: Ambien S end Method: [...] mg capsule 2013 active Medicati on ID: 65090 Br and Name: Kade Rivera end Method: [...] inhalatio n 2018 active Medicati on ID: 635293 D uration Value: 30 Brand Name: Breo [...] subcutane ous 2018 active Medicati on ID: 968701 D uration Value: 35 Brand Name: Humulin [...] Updated DateTime 03/13/2024 157.48 cm 26 kg/m2 35640.12 g Shantell Wise [place] [facility] 03/13/2024 13:27:58 Social History None recorded. Functional Status None recorded. Mental Status None recorded. Family History Nothing Reported. Medical History No medical history recorded. Gynecological HistoryNo gynecological history recorded. Obstetrics History GPAL:G 0 P 0 0 0 0 Past Encounters Encounter ID Performer Location Encounter Start Date Encounter Closed Date Diagnosis/Indication Diagnosis SNOMED-CT Code Diagnosis ICD10 Code Diagnosis Note [id number] UMESH DIAZ MD [facility] [address] [place] [address] 03/13/2024 13:18:07 03/13/2024 13:52:50 Oropharyngeal dysphagia 97453003 R13.12 Exam and laryngosco py were normal. I recommend a swallow study (MBS) to reassess her swallow. F/u after. If normal I would suggest GI referral especially given her Sjogrens. Sj? ? ?gren's syndrome 08946556 M35.00 Encouraged hydration. Will consider GI referral [...] Mendez Member ID Guarantor Name 03/13/2024 1 [facility] - DOS ON OR AFTER 2022 - MEDICARE ADVANTAGE [place] & [place] (MEDICARE REPLACEMENT/AD VANTAGE - PPO) Jennifer Gu [id number] Jennifer Gu Notes Date Note Type Note [...] and dry mouth. UMESH DIAZ MD [address], [address], [place] - [facility] 03/13/2024 13:43:36 OBGyn Episode No OBEpisode recorded.
--- OUTSIDE RECORDS SUMMARY | 2024-06-16 11:41 | XMS_ITS | Encounter Summary ---
Author Organization [employer] Address [address] [place] [address] 7 [place] [address] Care Team Providers Care Oncologist Name Role Phone Emy Askew MD Primary Care Pro vider Reason for Visit * Reason Comments Med Refill Encounter Details Date Type Department Care Team ([facility] Contact Info) Description 02/14/2024 Refill [facility] MEDICINE [address] [place] [address] Emy Askew MD [address] [place] [address] Social History Tobacco Use Types Packs/Day Years [...] Description 07/16/2024 11:15 AM EDT Office Visit [facility] MEDICINE [address] [place] [address] [phone] Emy Askew MD [address] [place] [phone] documented as of this encounter Visit Diagnoses Not on filedocumented in this encounter Additional Health Concerns Assessment Noted Time PHQ-9 Depression Total Score: 10 024 2:37 PM EDT documented as of this encounter Care Teams Oncologist Relationship Specialty Start Date End Date Emy Askew MD [address] [place] [address] [phone] PCP - General Internal Medicine 07/25/22 documented as of this encounter
--- OUTSIDE RECORDS SUMMARY | 2024-06-16 11:41 | XMS_ITS | Encounter Summary ---
Author Organization [employer] Address [address] [facility] 7t [place] [address] Care Team Providers Care Mixing Machine Operator Name Role Phone Emy Askew MD Primary Care Pro vider Encounter Details Date Type Department Care Team (Late st Contact Info) Description 06/16/2024 Orders Only GENERIC EXTERNAL DATA DEPARTMENT Provider, Generic External Data Social History Tobacco Use Types Packs/Day Years [...] Description 07/16/2024 11:15 AM EDT Office Visit [facility] [address] [place] [address] Emy Askew MD [address] [place] [address] documented as of this encounter Procedures Procedure Name Priority Date/Time Associated Diagnosis Comments GLUCOSE, WHOLE BLOOD Routine 06/16/2024 10:45 AM EDT documented in this encounter Results * (ABNORMAL) Glucose, Whole Blood (06/16/2024 10:45 AM EDT) Glucose, Whole Blood 263(H) 60 - 115 mg/dL [facility] Comment:METER #: [id number] Testing performed in the Endocrinology Department [address] , [address], [facility]. 06/16/2024 10:4 5 AM EDT 06/16/2024 10:48 AM EDT us Generic External Data Provider LAB BLOOD ORDERAB LES Final Result [facility] [address] [place] [address] [phone] documented in this encounter Visit Diagnoses Not on filedocumented in this encounter Additional Health Concerns Assessment Noted Time PHQ-9 Depression Total Score: 10 024 2:37 PM EDT documented as of this encounter Care Teams Mixing Machine Operator Relationship Specialty Start Date End Date Emy Askew MD [address] [place] [id number] PCP - General Internal Medicine 07/25/22 documented as of this encounter
--- OUTSIDE RECORDS SUMMARY | 2024-06-16 11:42 | XMS_ITS | Encounter Summary ---
Author Organization [employer] Address [address] [place] [address] 7 [place] [address] Care Team Providers Care Audit Officer Name Role Phone Emy Askew MD Primary Care Pro vider Reason for Visit * Reason Comments Med Refill Encounter Details Date Type Department Care Team ([facility] st Contact Info) Description 02/09/2023 Refill [facility] [address] [place] [address] Emy Askew MD [address] [place] [address] Social History Tobacco Use Types Packs/Day Years [...] 11:15 AM EDT Office Visit [facility] [address] [place] [phone] Emy Askew MD [address] [place] [phone] documented as of this encounter Visit Diagnoses Not on filedocumented in this encounter Additional Health Concerns Assessment Noted Time PHQ-9 Depression Total Score: 16 023 10:16 AM EDT documented as of this encounter Care Teams Audit Officer Relationship Specialty Start Date End Date Emy Askew MD [address] [place] [id number] PCP - General Internal Medicine 07/25/22 documented as of this encounter
--- OUTSIDE RECORDS SUMMARY | 2024-06-16 11:42 | XMS_ITS | Encounter Summary ---
Author Organization [employer] [facility] Address [address] [place] [address] [address] [place] [address] Care Team Providers Care Broadband Engineer Name Role Phone Cyn Bosch MD Primary Care Provider Kenya Delong [facility] Primary Care Provider [phone] Emy Askew MD Primary Care Pro vider Encounter Details Date Type Department Care Team (Latest Contact Info) Description 05/09/2020 Abstract [facility] CONVERSIONS Dental, Provider, DDS Social [...] 11:15 AM EDT Office Visit [facility] MEDICINE [address] [place] [address] Emy Askew MD [address] [place], [place] [phone] documented as of this encounter Visit Diagnoses Not on filedocumented in this encounter Care Teams Broadband Engineer Relationship Specialty Start Date End Date Cyn Bosch MD PCP - General Family Medicine 08/20/19 01/21/22 Kenya Sol FNP [address] [place] [address] PCP - General Family Medicine 01/22/22 07/24/22 Emy Askew MD [address] [place] [id number] PCP - General Internal Medicine 07/25/22 documented as of this encounter
--- OUTSIDE RECORDS SUMMARY | 2024-06-16 11:42 | XMS_ITS | Encounter Summary ---
Author Organization [employer] [facility] Address [address] [place] [address] 7t [place] [address] Care Team Providers Care Bed Maker Name Role Phone Ebenezer [facility] Primary Care Provider [phone] Emy Askew MD Primary Care Pro vider Encounter Details Date Type Department Care Team (Late st Contact Info) Description 03/26/2022 Orders Only [facility] MEDICINE [address] [place], [place] [phone] Lizett Cannon LPN Social History Tobacco Use [...] Description 07/16/2024 11:15 AM EDT Office Visit [facility] MEDIC[facility] [address] [place], [place] [phone] Emy Askew MD [address] [place], [place] [phone] documented as of this encounter Visit Diagnoses Not on filedocumented in this encounter Care Teams Bed Maker Relationship Specialty Start Date End Date Kenya Sol FNP [address] [place] [address] PCP - General Family Medicine 01/22/22 07/24/22 Emy Askew MD [address] [place] [address] PCP - General Internal Medicine 07/25/22 documented as of this encounter
--- OUTSIDE RECORDS SUMMARY | 2024-06-16 11:42 | XMS_ITS | Encounter Summary ---
Author Organization [employer] [facility] Address [address] [place] [address] [address] [place] [address] Care Team Providers Care Respiratory Clinician Name Role Phone Cyn Bosch MD Primary Care Provider Kenya Delong [facility] Primary Care Provider [phone] Emy Askew MD Primary Care Pro vider Encounter Details Date Type Department Care Team (Latest Contact Info) Description 09/30/2018 Abstract [facility] CONVERSIONS Dental, Provider, DDS Social [...] EDT Office Visit [facility] [address] [place] [address] Emy Askew MD [address] [place], [place] [phone] documented as of this encounter Visit Diagnoses Not on filedocumented in this encounter Care Teams Respiratory Clinician Relationship Specialty Start Date End Date Cyn Bosch MD PCP - General Family Medicine 08/20/19 01/21/22 Kenya Sol FNP [address] [place] [address] PCP - General Family Medicine 01/22/22 07/24/22 Emy Askew MD [address] [place] [address] [place] [address] PCP - General Internal Medicine 07/25/22 documented as of this encounter
--- OUTSIDE RECORDS SUMMARY | 2024-06-16 11:42 | XMS_ITS | Clinical Summary ---
Author Organization [employer] Address [address] [place] [address] [address] [place] [address] Care Team Providers Care Product Support Sales Representative Name Role Phone Emy Askew [...] DAILY 100 strip 11 Active sodium chloride ([place] Nasal [place]) 0.65 % nasal spray Administer 1 spray [...] 2 diabetes mellitus without complication, unspecified whether tank terminal gauger insulin use (CMS/[facility]) USE DIRECTED FIVE TIMES DAILY 100 each [...] 3 TIMES DAILY. 90 capsule 025 Active ibuprofen 400 MG tabletIndications :Neck pain [...] daily. 90 capsule 2 024 2024 Discontinued amoxicillin (Amoxil) 500 MG capsuleIndication s:Pharyngitis, unspecified etiology Take 1 capsule (500 mg) by mouth every 12 (twelve) hours for 10 days. 20 capsule 025 2024 Active Problems Problem Noted Date Diagnosed Date [...] diet and exercise,discussed healthy life style - patient navigator referred already-pd to schedule apt. gave today information to pt to call for apt Assessment & Plan (10/23/2022 5:21 PM EDT): Advised pt to improve diet and exercise,discussed healthy life style - patient navigator referred already-pd to schedule apt Assessment & Plan (09/24/2022 8:29 PM EDT): Advised pt to improve diet and exercise,discussed healthy life style -discussed patient navigator referral - today Sialoadenitis of submandibular gland [...] referred by ENT for further eval in [place] but never went -referred again to ENT [...] referred by ENT for further eval in [place] but never went -referred again to ENT [...] w RA / Sjogren's disease, follows w nurse manager - Continue care w specialist -on leflunomide and MTX Assessment & Plan (10/23/2022 5:23 PM EDT): Pt w RA / Sjogren's disease, follows w nurse manager - Continue care w specialist -on leflunomide and MTX Assessment & Plan (09/24/2022 8:33 PM EDT): Pt w RA / Sjogren's disease, follows w nurse manager - Continue care w specialist Bilateral post-traumatic [...] Pt following w psychiatrist and therapist at [facility]. Denies SI but has thoughts to be better off . - Continue care w specialist - Pt requests information to be able to change to an old age home --already received information -in process per pt Assessment & Plan (10/23/2022 5:23 PM EDT): Pt following w psychiatrist and therapist at [facility]. Denies SI but has thoughts to be better off . - Continue care w specialist - Pt requests information to be able to change to an old age home --already received information -in process per pt Assessment & Plan (09/24/2022 8:32 PM EDT): Pt following w psychiatrist and therapist at [facility]. Denies SI but has thoughts to be better off . - Continue care w specialist - Pt requests information to be able to change to an old age home -- I spoke w family preservation caseworker today and they will come to speak w pt to give info. Was told that there is no need to refer to CM for this. Type 2 diabetes mellitus without complication Assessment & Plan (12/06/2022 6:16 AM EDT): 09/2022 HbA1C 8.2<---8.7, CBG 248., total ch 169, trig 324( in fasting) ,HDL 36,LDL 69, Microalb neg Used to follow w forward air controller/air officer, but lost care. Not on metformin [...] - to f in 1 y. - Brush Loader And Handle Attacher: seen in 11/2022 Assessment & Plan (10/23/2022 5:46 PM EDT): 09/2022 HbA1C 8.2<---8.7, CBG 248., total ch 169, trig 324( in fasting) ,HDL 36,LDL 69, Microalb neg Used to follow w forward air controller/air officer, but lost care. Not on metformin [...] - to f in 1 y. - Brush Loader And Handle Attacher: referred today Assessment & Plan (09/24/2022 8:51 PM EDT): Today HbA1C 8.7, CBG 248. Used to follow w forward air controller/air officer, but lost care. - DM2 labs. - Will consider increasing Trulicity at her next appt. - Pt not currently on Metformin, but used to be in the past. Will check at her next appt, and if she can tolerate it, will resume Rx. - Ophthalmology 07/2022 - to f in 1 y. - Brush Loader And Handle Attacher: will refer at next visit. Varicose veins of lower extremity 07/08/2017 Assessment & Plan (10/23/2022 5:12 PM EDT): Pt w lower extremity edema trace from 1+ before , possibly from Cardiazem and venous insufficiency. - Advised to use compression stockings,--started using with noted improved LE edema -I confirmed today w her grand scribe-Dr Watkins #[phone] that pt does not have CHF and [...] (12/06/2022 6:19 AM EDT): Pt following with nurse manager. Pt w consistently dry mouth. From med [...] for unclear reasons. - PT following w grand scribe actively w on and off chest discomfort. [...] mg in pm - PT following w grand scribe -will f BP in next 3 to 4 weeks Assessment & Plan (09/24/2022 8:43 PM EDT): BP slightly elevated at 144/94 - Holter 2019 neg. -echocardiogram 2018The left ventricular systolic function is normal. The visually estimated ejection fraction is between 60-65%. -stress test 2019 : nondiagnostic EKG For ischemia. - Will monitor BP manually at next visit. - PT following w grand scribe Chronic constipation 12/24/2016 Gastroesophageal reflux disease without [...] in 2016 here . I called her grand scribe today and he reports last EKG was normal as well Blender Snuff -Dr Watkins states given QTC < 500 [...] and leflunomide ( if ok wit her nurse manager)-pt to ask and Cymbalta if taking in am. Hold am of surgery lasix,amytriptiline,lisinopril .Hold ASA 5 days prior procedure and avoid NSAIDS 7 days prior procedure. -will rec to have post op EKG as rec by her grand scribe for noted prolonged QTC -will rec to [...] Encounters Date Type Department Care Team Description 06/16/2024 Orders Only GENERIC EXTERNAL DATA DEPARTMENT Provider, Generic External Data 06/11/2024 Telephone [facility] [address] [address] Mehul Alexis MD Results 06/10/2024 8:40 AM EDT [facility] [address] [address] Mehul Alexis MD Neck pain (Primary Dx); Acute intractable headache, unspecified headache type 06/10/2024 Telephone [facility] [address] [address] Mehul Alexis MD 06/10/2024 Orders Only [facility] [address] [address] Mehul Alexis MD 06/04/2024 10:00 AM EDT [facility] [address] [address] Kaden Jaime MD Pharyngitis, unspecified etiology (Primary Dx) 05/27/[address] [address] Alden Cai CNM Results 05/26/2024 1:00 PM EDT Office Visit [address] [address] Alden Cai CNM Visit for pelvic exam (Primary Dx); Vulvar itching 05/26/2024 Travel 05/20/[address] [place] [address] Dorinda Barajas, ANP 05/10/2024 Refill [facility] MED[facility] [address] [place] [address] Emy Askew MD Benign essential hypertension 05/05/2024 Refill [facility] MEDICINE [address] [place] [address] Emy Askew MD Chronic constipation 04/28/2024 Refill C MEDICINE [address] [place] [address] Emy Askew MD Type 2 diabetes mellitus without complication, with long-term current use of insulin ([facility]) 04/13/2024 Telephone [facility] [address] [place] [address] Emy Askew MD Nurse Triage 04/08/2024 Telephone [facility] [address] [place] [address] Jessica Valenzuela MA Nguyen recall 04/05/2024 Refill [facility] [address] [place], [place] [phone] Emy Askew MD 03/25/2024 Refill [facility] [address] [place] [address] Emy Askew MD Type 2 diabetes mellitus without complication, unspecified whether half-way insulin use ([facility]) 03/20/2024 Travel from Last 3 Months Immunizations Name [...] Description 07/16/2024 11:15 AM EDT Office Visit [facility] [address] [place] [address] Emy Askew MD [address] [place] [address] Health Maintenance Due Date Last Done Comments [...] 05/09/2023 Colorectal Cancer Screening 05/08/2024 Depression Monitoring 05/11/2024 11/12/2023, 024 Dental X-Ray: Bitewings 06/10/2024 06/10/19 24, 03/01/2023, 10/26/2021, Additional history exists SDOH Screening 10/31/2024 11/01/2023 Depression Screening 11/11/2024 11/12/2023, 11/12/19 24 Diabetes: Urine Protein Screening 12/24/2024 12/25/2023, 10/04/2022, 12/21/2020, Additional history exists Lipid Panel 12/24/2024 12/25/2023, 0203/2023, 10/04/2022, Additional history exists Alcohol/Substance Use Screening [...] WHOLE BLOOD Routine 06/16/2024 10:45 AM EDT XR CERVICAL SPINE 3V Routine 06/10/2024 9:13 [...] 3:30 PM EDT Periodontal disease Fractured dental anabaptism with loss of material HPV MRNA E6/E7 [...] Recently Relevant to Health Maintenance Results * (ABNORMAL) Glucose, Whole Blood (06/16/2024 10:45 AM EDT) Glucose, Whole Blood 263(H) 60 - 115 mg/dL [facility] Comment:METER #: [id number] Testing performed in the Endocrinology Department [address] , [address], [place]. 06/16/2024 10:4 5 AM EDT 06/16/2024 10:48 AM EDT us Generic External Data Provider LAB BLOOD ORDERAB LES Final Result [facility] [address] [place] [address] [phone] * XR CERVICAL SPINE 3V (06/10/2024 9:13 AM EDT) Anatomical Region Laterality Modality Abdomen Radiographic Karla ging 06/10/2024 9:13 AM EDT Narrative 06/10/2024 9:41 AM EDT ?[facility] ?[address] ?[place] [address] ?XRay Report ? Signed ? Patient: Jennifer Palmer ?MR#: [id number] ?? 0 ? : 1960 ?Acct:[id number] ? Age/Sex: 63 / F ?ADM Date: 06/10/24 ? Loc: HO.HHCX ? Attending Dr: Mehul Alexis MD ? Ordering Physician: MEHUL ALEXIS MD ?? Date of Service: 06/10/24 ?? Procedure(s): XR cervical spine 3V ?? Accession Number(s): [id number] ? cc: MEHUL ALEXIS MD ? EXAMINATION: [...] ? DD/ 2 ? TD/TT: 06/10/249[address] ? Locker Plant Attendant: ? Procedure Note Donotuseinterpreter, Image - 06/10/[address] [address] XRay Report Signed Patient: Axel Palmer#: [id number] 0 : 9Acct:[id number] Age/Sex: 63 / FADM Date: 06/10/24 [facility]: Mehul Alexis MD Ordering Physician: MEHUL ALEXIS MD Date of Service: 06/10/24 Procedure(s): XR cervical spine 3V Accession Number(s): [id number] cc: MEHUL ALEXIS MD EXAMINATION: XR CERVICAL [...] MDin OV> 06/10/24938 DD/ 2 TD/TT: 06/10/24912 Locker Plant Attendant: Mehul Alexis MD IMG XR PROCEDURES Final Result * Influenza B (ID NOW Rapid Molecular) (06/04/2024 9:50 AM EDT) [facility] Influenza B Negative Negative, Indeterminate [facility] Swab 06/04/2024 9:50 AM EDT us Kaden Jaime MD POINT OF CARE TEST ENTER/EDIT OR DERABLES Final Result Performing Organization Address [facility]/ZIP Co de Phone Number [facility] [address] [place] [phone] * Influenza A (ID NOW Rapid Molecular) (06/04/2024 9:50 AM EDT) [facility] Influenza A Negative Negative, Indeterminate [facility] Swab 06/04/2024 9:50 AM EDT us Kaden Jaime MD POINT OF CARE TEST ENTER/EDIT OR DERABLES Final Result Performing Organization Address City/[facility] Co de Phone Number [facility] [address] [place] [phone] * POCT Rapid COVID Ag (06/04/2024 9:50 AM EDT) [facility] Rapid COVID Ag Negative Swab 06/04/2024 9:50 AM EDT us Kaden Jaime MD POINT OF CARE TEST ENTER/EDIT OR DERABLES Final Result * POCT rapid strep A manually resulted (06/04/2024 9:50 AM EDT) [facility] Rapid Strep A Screen Negative Negative, None Detected Swab 06/04/2024 9:50 AM EDT us Kaden Jaime MD POINT OF CARE TEST ENTER/EDIT OR DERABLES Final Result * Culture, Throat (06/04/2024 9:50 AM EDT) Throat Structure of anterior portion of neck / Unknown 06/04/2024 9:50 AM EDT 06/04/2024 6:00 PM EDT Comment:Throat Narrative [facility] - 06/05/2024 11:47 AM EDT Streptococcus pyogenes (Grp A) Quant Org ID [id number] Specimen Source: Throat Kaden Jaime MD LAB MICROBIOLOGY - GENERAL ORDER CANDI Final Result [facility] [address] [place] [phone] * POCT fern test, vaginal fluid manually resulted (05/26/2024 12:38 PM EDT) [facility] Prep Negative Comment:pH 5, neg whiff, neg clue, neg trich, neg wbc, neg hyphae Vaginal Fluid Vaginal structure / Unknown 05/26/2024 12:38 PM EDT Alden Cai CNM POINT OF CARE TEST ENTER/ EDIT ORDERABLES Final Result * Bacterial Vaginosis Panel (05/26/2024 12:37 PM EDT) TRICHOMONAS VAGINALIS DETECTION BY PCR NOT DETECTED Not Detect [facility] BACTERIAL VAGINOSIS DETECTION BY PCR NEGATIVE Negative [facility] Comment:The BV organism targ [...] DETECTION BY PCR NOT DETECTED Not Detect [facility] Sammie glab krusei PCR NOT DETECTED Not Detect [facility] Swab Vaginal structure / Unknown 05/26/2024 12:37 PM EDT 05/26/2024 4:52 PM EDT us Alden Luamarvprashanth CNM LAB MICROBIOLOGY - GENERA L ORDERABLES Final Result [facility] [address] [facility] [place] [address] [phone] * XR Hip 2 or 3 Views Left (03/27/2024 11:12 AM EST) Anatomical Region Laterality Modality Lower Extremities, Hip Left Radiograp hic Imaging 03/27/2024 11:1 2 AM EST Narrative 03/30/2024 10:04 AM EST ? [facility] ? [address] ?[place] [address] ?XRay Report ? Signed ? Patient: Jennifer Palmer ?MR#: [id number] ?? 0 ? : 1960 ?Acct:[id number] ? Age/Sex: 63 / F ?ADM Date: 03/27/24 ? Loc: HO.HOSX ? Attending Dr: Aleksandra Culp MD ? Ordering Physician: Aleksandra Chu ?? Date of Service: 03/27/24 ?? Procedure(s): XR hip LT min 2V ?? Accession Number(s): [id number] ? cc: Emy Askew MD; Aleksandra Chu [...] DD/ 1112 ? TD/TT: 03/27/24 1115 ? Locker Plant Attendant: ? Procedure Note Donotuseinterpreter, Image - 03/30/2024 [facility] [address] [place] [address] Drive [address] [place] [address] XRay Report Signed Patient: Axel Palmer#: [id number] 0 : 9Acct:[id number] Age/Sex: 63 / FADM Date: 03/27/24 Loc: HO.HOSX Attending Dr: Aleksandra Culp MD Ordering Physician: Aleksandra Chu Date of Service: 03/27/24 Procedure(s): XR hip LT min 2V Accession Number(s): [id number] cc: Emy Askew MD; Aleksandra Chu EXAMINATION: [...] Brock Lauren MD 03/30/2024 10:02 AM EST Dictated By: Brock Lundy MD Signed By: <Electronically signed by Brock Maradiaga MDin OV> 03/30/24 1002 DD/ 1112 TD/TT: 03/27/24 1115 Locker Plant Attendant: [facility] External Provider IMG XR PROCEDURES Edited Result - Final * XR Sacroiliac Joints 1-2 Views (03/27/2024 11:12 AM EST) Anatomical Region Laterality Modality Sacroiliac joint, Pelvis Radiogr aphic Imaging 03/27/2024 11:1 2 AM EST Narrative 03/30/2024 10:29 AM EST ? [place] [facility] ? [address] ?[place] [address] ?XRay Report ? Signed ? Patient: Palmer,Jennifer ?MR#: [id number] ?? 0 ? : 1960 ?Acct:[id number] ? Age/Sex: 63 / F ?ADM Date: 03/27/24 ? Loc: HO.HOSX ? Attending Dr: Aleksandra Culp MD ? Ordering Physician: Aleksandra Chu ?? Date of Service: 03/27/24 ?? Procedure(s): XR sacroiliac joint 1-2V ?? Accession Number(s): [id number] ? cc: Emy Askew MD; Aleksandra Chu [...] DD/ 1112 ? TD/TT: 03/27/24 1115 ? Locker Plant Attendant: ? Procedure Note Aniket, Image - 03/30/2024 [facility] [address] [place] [address] [address] [place] [address] XRay Report Signed Patient: Axel Palmer#: [id number] 0 : 9Acct:[id number] Age/Sex: 63 / FADM Date: 03/27/24 Loc: HO.SUKUMAR Attending Dr: Aleksandra Culp MD Ordering Physician: Aleksandra Chu Date of Service: 03/27/24 Procedure(s): XR sacroiliac joint 1-2V Accession Number(s): [id number] cc: Emy Askew MD; Aleksandra Chu EXAMINATION: [...] 03/30/24 1027 DD/ 1112 TD/TT: 03/27/24 1115 Locker Plant Attendant: [facility] External Provider IMG XR PROCEDURES Final Result * BI Mammogram Screening Tomosynthesis Bilateral (03/17/2024 1:00 PM EST) Anatomical Region Laterality Modality Breast Bilateral Mammography 03/17/2024 1:00 PM EST Narrative 03/28/2024 10:52 AM EST ? [facility] ? [address] ?[place] [address] ? Mammography Report ? Signed ? Patient: Estela,Jennifer ?MR#: [id number] ?? 0 ? : 1960 ?Acct:[id number] ? Age/Sex: 63 / F ?ADM Date: /14/25 ? Loc: HO.MAMMO ? Attending Dr: Emy Goldsmith MD ? Ordering Physician: Emy Askew MD ?Re ?? sults: 1Negative ? Date of Service: 03/17/24 ?Follow Up: 1 Year From Orig ?? inal Mammogram ? Procedure(s): MM tomosynthesis screening BI ?? Accession Number(s): [id number] ? cc: Emy Askew MD ? EXAMINATION: [...] DD/ 1300 ? TD/TT: 03/17/24 1320 ? Locker Plant Attendant: ? Procedure Note Donotuseinterpreter, Image - 03/28/2024 [facility] [facility] [address] [place] [address] [place] [address] Mammography Report Signed Patient: Axel Palmer#: [id number] 0 : 9Acct:[id number] Age/Sex: 63 / FADM Date: 03/17/24 Loc: HO.MAMMO Attending Dr: Emy Goldsmith MD Ordering Physician: Emy Askew sults: 1Negative Date of Service: 03/17/24Follow Up: 1 Year From Orig inal Mammogram Procedure(s): MM tomosynthesis screening BI Accession Number(s): [id number] cc: Emy Askew MD EXAMINATION: MM SCREENING [...] 03/28/24 1049 DD/ 1300 TD/TT: 03/17/24 1320 Locker Plant Attendant: us Emy Goldsmith MD IMG BI PROCEDURES Final Result * (ABNORMAL) Hemoglobin A1c (12/25/2023 7:08 AM EDT) Hemoglobin A1c 8.2(H) <6.0 % [facility] Comment:Hemoglobin A1C Refer ence Range Adults: 4.8 - 6.0 % Non diabetic: < 6.0 % Goal: < 7.0 %Additional Action Suggested: > 8.0 %Note: Hemoglobin A1c results are invalid for patients with abnormal amounts of HbF. Blood transfusions may impact the HbA1c concentration in the patient sample. Estimated Average Glucose 189 mg/dL [facility] Comment:eAG = Estimated ave rage glucose which is %A1C expressed asaverage glucose, using the formula of the T9A-ChlblshTdjzvdp Glucose study (ADAG), Diabetes Care, Vol.31,#8,Oct. 2007 Blood Venous blood specimen / Unknown 12/25/2023 7:08 AM EDT 12/25/2023 7:09 AM EDT us Emy Goldsmith MD LAB BLOOD ORDERAB LES Final Result [facility] [address] [place] [phone] * (ABNORMAL) Lipid Panel, Standard (12/25/2023 7:08 AM EDT) Triglycerides 232(H) <150 mg/dL [facility] Comment:Desirable Triglyceri de: less than 150 mg/dLBorderline High Triglyceride 150-199 mg/dLHigh Triglyceride: 200-499 mg/dLVery High Triglyceride: greater than or equal to 5OO mg/dL Cholesterol 154 <200 mg/dL [facility] Comment:Desirable Cholestero l: less than 200 mg/dLBorderline High Cholesterol: 200-239 mg/dLHigh Cholesterol: greater than 239 mg/dL LDL Cholesterol Calculated 64 <100 mg/dL [facility] Comment:Desirable LDL: less than [...] ORDERAB LES Final Result Performing Organization Address [facility] Co de Phone Number [facility] [address] [place] [phone] * (ABNORMAL) Albumin, Random Urine W/Creatinine (12/25/2023 7:05 AM EDT) Creatinine, Urine 50.21 mg/dL [facility] Microalbumin Urine 78.0 mg/L [facility] Microalbum Creatinine Ratio Ur 155.3(H) <30 ug/mg cr [facility] Comment:Albumin/Creatinine R atio Reference Ranges: Normal: < 30 ug/mg creatinine Microalbuminuria: 30 - 300 ug/mg creatinineClinical Albuminuria: > 300 ug/mg creatinine Urine (Urine, Random) 12/25/2023 7:05 AM EDT 12/25/2023 7:49 AM EDT us Emy Goldsmith MD LAB URINE ORDERAB LES Final Result Performing Organization Address [facility] Co de Phone Number [facility] [address] [place] [phone] * HPV mRNA E6/E7 w/Reflex to HPV Genotypes 16, 18/45 (05/27/2023 10:50 AM EDT) HPV nRNA E6/E7 Not Detected Not Detected [facility] Comment:Methodology: Transcr iption-Mediated AmplificationThis assay detects E6/E7 viral messenger RNA (mRNA) from 14high-risk HPV types (16,18,31,33,35,39,45,51,52,56,58,59,66,68).Cervical sources are required for HPV testing.If a vaginal source from a patient who has had atotal hysterectomy with removal of cervix wassubmitted, please contact the testing laboratoryfor alternative testing options.For additional information, please refer [email or web address]/[email or web address](This link if provided for information/educational purposes only.)THIS TEST WAS PERFORMED AT:[employer] [place] [phone] CAMARENA MD HPV mRNA E6/E7 TNP [facility] HPV 16 RNA [facility] HPV 18/45 RNA [facility] 05/27/2023 10:5 0 AM EDT 05/28/2023 11:50 AM EDT Alden Cai [facility] CYTOLOGY ORDERABLES F inal Result [facility] [address] [place] [phone] [phone] * Pap Smear (05/27/2023 10:50 AM EDT) Swab Cervix uteri structure / Unknown 05/27/2023 10:50 AM EDT 05/28/2023 11:50 AM EDT Narrative [facility] - 06/09/2023 5:49 PM EDT ----- ------- Name: Jennifer Palmer ?Age/Sex: 62/F ? : 1960 Unit#: [id number] ?? Attend Dr: ALDEN CAI CNM ?Re05/27/23 ?Status: DEP REF ? Location: HO.HHCLNP ? Disch: ? ----- ------- SPEC : [id number] ? RECD: 05/28/23-1150 ? STATUS: ??SOUT ? REQ NUM: [id number] ? PRANAY: 05/27/23-1050 ? SUBM DR: ALDEN CAI CNM ? ENTERED: ??05/28/23-3225 ?SP TYPE: Pap Smr ?OTHR DR: ? [...] 66, 68) ? HPV testing performed by [facility], [place], [place]. ??See reference laboratory ?? portion of the EMR for entire report. ?Clinical Information LMP: Postmenopausal Previous PAP test: Unknown date/findings ? Material Received ?? ThinPrep-Vaginal/Cervical ----- ------- Signed (signature on file) Esther Ness Nenita 06/09/23 0066 ? ----- ------- ? END OF REPORT ? us Alden Cai [facility] CYTOLOGY ORDERABLES F inal Result [facility] [address] [place] [phone] * Hm Colonoscopy (05/09/2023 6:56 PM EST) Historical Provider HEALTH MAINTENANCE Final Result * Hepatitis C Antibody Reflex (10/04/2022 9:42 AM EDT) Hepatitis C Antibody Nonreactive Nonreactive [facility] Comment:Antibodies to HCV no t detected; does not exclude early acuteHCV infection. 10/04/2022 9:42 AM EDT 10/04/2022 9:43 AM EDT Emy Goldsmith MD LAB BLOOD ORDERAB LES Final Result [facility] [address] [place] [phone] from Last 3 Months or Most Recently Relevant to Health Maintenance Insurance [facility] Member Subscriber Plan / Payer (Ef fective 2023-Present) Name:Jennifer Palmer Relation to Subscriber:Self Name:Jennifer Palmer Payer ID:Not on file Group ID:[id number] Type:Not on file Address: [facility] [address] [place] [address] [place] AD[place] Care Teams Product Support Sales Representative Relationship Specialty Start Date End Date Emy Askew MD [address] [place] [phone] PCP - General Internal Medicine 07/25/22
--- OUTSIDE RECORDS SUMMARY | 2024-06-16 11:42 | XMS_ITS | Encounter Summary ---
Author Organization [employer] [facility] Address [address] [place] [address] [address] [place] [address] Care Team Providers Care Bed And Breakfast Operator Name Role Phone Cyn Bosch MD Primary Care Provider Kenya Delong [facility] Primary Care Provider [phone] Emy Askew MD Primary Care Pro vider Encounter Details Date Type Department Care Team (Latest Contact Info) Description 10/26/2021 Abstract [facility] CONVERSIONS Dental, Provider, DDS Social History [...] 07/16/2024 11:15 AM EDT Office Visit [facility] MEDICINE [address] [place] [address] Emy Askew MD [address] [place], [place] [phone] documented as of this encounter Visit Diagnoses Not on filedocumented in this encounter Care Teams Bed And Breakfast Operator Relationship Specialty Start Date End Date Cyn Bosch MD PCP - General Family Medicine 08/20/19 01/21/22 Kenya Sol FNP 230 [place] [address] PCP - General Family Medicine 01/22/22 07/24/22 Emy Askew MD [address] [place] [phone] PCP - General Internal Medicine 07/25/22 documented as of this encounter
== END 2024-06-16 10:56 | disposition home or self-care (01) ==
LOC: HO.ENCR 10:03
PROVIDERS: PCP Student in an Organized Health Care Education/Training Program; Visit Provider Student in an Organized Health Care Education/Training Program
DX: E11.42 Type 2 diabetes mellitus with diabetic polyneuropathy (principal); I10 Essential (primary) hypertension; E21.3 Hyperparathyroidism, unspecified; Z13.9 Encounter for screening, unspecified
CPT/HCPCS: 99214; G2211

== ENCOUNTER → 2024-06-16 10:03 | Outpatient (BNVA) | payer OTHER, SELFPAY | PROVIDERS: PCP Student in an Organized Health Care Education/Training Program; Visit Provider Student in an Organized Health Care Education/Training Program | DX: E11.42 Type 2 diabetes mellitus with diabetic polyneuropathy (principal); E21.3 Hyperparathyroidism, unspecified; E78.5 Hyperlipidemia, unspecified; I10 Essential (primary) hypertension; Z79.899 Other long term (current) drug therapy | CPT/HCPCS: 82947; 83036; 99212 ==

== ENCOUNTER 2024-06-20 23:02 | Emergency (ER) | payer OTHER, SELFPAY ==
[2024-06-20 23:16] VITALS: BP 158/99; PULSE 102; RESP 16; TEMP 37.1; O2SAT 98; BMI 26.3
[2024-06-20 23:30] LABS: MANUAL DIFF FLAG NO
[2024-06-20 23:31] LABS: Basophils Absolute Auto 0.1 X10*3/uL (0.0-0.2); Basophils Percent Auto 0.5 % (0-2); Eosinophils Absolute Auto 0.8 X10*3/uL (0.0-0.4); Eosinophils Percent Auto 6.2 % (0-4); Hematocrit 40.4 % (37.0-47.0); Hemoglobin 13.7 g/dl (12.0-16.0); Imm Gran Abs Auto 0.03 X10*3/uL (0.00-0.03); Imm Gran Pct Auto 0.2 % (0.0-0.4); Lymphocytes Absolute Auto 2.2 X10*3/uL (1.2-4.9); Lymphocytes Percent Auto 17.3 % (20-40); Mean Corpuscular HGB Conc 33.9 g/dl (31.0-35.0); Mean Corpuscular Hemoglobin 29.5 pg (27.0-33.0); Mean Corpuscular Volume 86.9 fL (80.0-98.0); Mean Platelet Volume 9.3 fL (9.4-12.3); Monocytes Absolute Auto 1.1 X10*3/uL (0.1-1.2); Neutrophils Absolute Auto 8.3 x10*3/uL (2.0-8.3); Neutrophils Percent Auto 66.8 % (45-73); Platelet Count 326 X10*3/uL (160-400); Red Blood Count 4.65 X10*6/uL (4.20-5.50); Red Cell Distribution Width 14.6 % (11.0-16.0); White Blood Count 12.4 X10*3/uL (4.8-10.8)
--- NOTE | 2024-06-20 23:36 | ECG_ITS ---
Test Reason : ABD PAIN Blood Pressure : */* mmHG Vent. Rate : 92 BPM Atrial Rate : 92 BPM P-R Int : 154 ms QRS Dur : 100 ms QT Int : 326 ms P-R-T Axes : 35 -36 96 degrees QTcB Int : 403 ms Normal sinus rhythm Left axis deviation Moderate voltage criteria for LVH, may be normal variant ( R in aVL , [place] product ) T wave abnormality, consider lateral ischemia Abnormal ECG When compared with ECG of 11-Apr-2022 15:05, T wave inversion more evident in Lateral leads Referred By: Gaurav Dhillon Electronically Signed By: JANES JEFFREY MD
[2024-06-20 23:45] LABS: Alanine Aminotransferase 11 U/L (0-31); Alkaline Phosphatase 112 U/L (39-117); Anion Gap 14 (12-20); Aspartate Amino Transferase 22 U/L (5-31); Bilirubin Total 0.5 mg/dL (0.0-1.0); Blood Urea Nitrogen 13 mg/dL (9-16); Calcium 9.9 mg/dL (8.4-10.2); Carbon Dioxide 24 mmol/L (22-29); Chloride 106 mmol/L (96-108); Creatinine Clr Calc Pharmacy 66.2; Estimated Glomerular Filt Rate > 60; Glucose Random 141 mg/dL (60-115); Lipase 26 U/L (8-78); Potassium 3.3 mmol/L (3.3-5.1); Sodium 141 mmol/L (135-145); Total Protein 7.8 g/dL (6.5-8.0)
--- OUTSIDE RECORDS SUMMARY | 2024-06-20 23:58 | XMS_ITS | Encounter Summary ---
Author Organization [employer] Address [address] [facility] [address] 7t [place] [address] Care Team Providers Care Postal Service Mail Processor Name Role Phone Emy Askew MD Primary Care Pro vider Encounter Details Date Type Department Care Team (Late st Contact Info) Description 08/07/2023 Orders Only [facility] CHC MED & PEDS [address] [place] [address] Valeria Armas FNP [address] [place] [address] Social History Tobacco Use Types Packs/Day Years [...] Description 07/16/2024 11:15 AM EDT Office Visit [facility] MEDICINE [address] [place] [address] Emy Askew MD [address] [place] [phone] documented as of this encounter Visit Diagnoses Not on filedocumented in this encounter Additional Health Concerns Assessment Noted Time PHQ-9 Depression Total Score: 16 023 10:16 AM EDT documented as of this encounter Care Teams Postal Service Mail Processor Relationship Specialty Start Date End Date Emy Askew MD [address] [place] [phone] PCP - General Internal Medicine 07/25/22 documented as of this encounter
--- OUTSIDE RECORDS SUMMARY | 2024-06-20 23:59 | XMS_ITS | Encounter Summary ---
Author Organization [employer] [facility] Address [address] [place] [address] 7t [place] [address] Care Team Providers Care Machinist Mechanic Name Role Phone [facility] Primary Care Provider [phone] Emy Askew MD Primary Care Pro vider Reason for Visit * Reason Onset Date Comments Appointment Request 06/07/2022 Encounter Details Date Type Department Care Team ([facility] st Contact Info) Description 06/07/2022 Telephone [facility] MEDICINE [address] [place] [address] [facility] [address] [place] [address] Appointment Request Social History Tobacco Use Types [...] with new provider. Please contact pt at [phone] documented in this encounter Plan of Treatment Upcoming Encounters Date Type Department Care Team (Late st Contact Info) Description 07/16/2024 11:15 AM EDT Office Visit [facility] MEDICINE [address] [place] [address] Emy Askew MD [address] [place] [address] documented as of this encounter Visit Diagnoses Not on filedocumented in this encounter Care Teams Machinist Mechanic Relationship Specialty Start Date End Date Kenya Sol FNP [address] [place] [address] PCP - General Family Medicine 01/22/22 07/24/22 Emy Askew MD [address] [place] [address] PCP - General Internal Medicine 07/25/22 documented as of this encounter
--- OUTSIDE RECORDS SUMMARY | 2024-06-20 23:59 | XMS_ITS | Encounter Summary ---
Author Organization [employer] Address [address] [place] [address] [place] [address] Care Team Providers Care Home Health Registered Nurse Name Role Phone Emy Askew MD Primary Care Pro vider Reason for Visit * Reason Onset Date Comments pre-op paperwork 10/18/2022 Encounter Details Date Type Department Care Team ([facility] st Contact Info) Description 10/18/2022 Telephone [facility] MEDICINE [address] [place] [address] Emy Askew MD 230 [place] [address] pre-op paperwork Social History Tobacco Use Types [...] methotrexate and leflunomide??( if ok with her supervisor benzene refining)-pt to confirm and Cymbalta if taking in am. Hold am of surgery lasix,amytriptiline,lisinopril ??.HoldASA 5 days prior procedure and avoid NSAIDS 7 days prior procedure. Thanks documented in this encounter Plan of Treatment Upcoming Encounters Date Type Department Care Team (Late st Contact Info) Description 07/16/2024 11:15 AM EDT Office Visit [facility] MEDICINE [address] [place] [address] Emy Askew MD [address] [place] [address] documented as of this encounter Visit Diagnoses Not on filedocumented in this encounter Additional Health Concerns Assessment Noted Time PHQ-9 Depression Total Score: 16 023 10:16 AM EDT documented as of this encounter Care Teams Home Health Registered Nurse Relationship Specialty Start Date End Date Emy Askew MD [address] [place] [address] PCP - General Internal Medicine 07/25/22 documented as of this encounter
--- OUTSIDE RECORDS SUMMARY | 2024-06-20 23:59 | XMS_ITS | Encounter Summary ---
Author Organization [employer] Address [address] [facility] 7t [place] [address] Care Team Providers Care Brim Pouncer Name Role Phone Emy Askew MD Primary Care Pro vider Encounter Details Date Type Department Care Team (Latest Contact Info) Description 06/19/2024 Travel Social History Tobacco Use Types Packs/Day [...] 11:15 AM EDT Office Visit [facility] MEDICINE [address] [place] [address] Emy Askew MD [address] [place] [address] documented as of this encounter Visit Diagnoses Not on filedocumented in this encounter Additional Health Concerns Assessment Noted Time PHQ-9 Depression Total Score: 024 2:37 PM EDT documented as of this encounter Care Teams Brim Pouncer Relationship Specialty Start Date End Date Emy Askew MD [address] [place] [phone] PCP - General Internal Medicine 07/25/22 documented as of this encounter
--- OUTSIDE RECORDS SUMMARY | 2024-06-20 23:59 | XMS_ITS | Encounter Summary ---
Author Organization [employer] Address [address] [facility] 7t [place] [address] Care Team Providers Care Culinary Assistant Name Role Phone Emy Askew MD Primary [...] as of this encounter Miscellaneous Notes * Result Encounter Note - Emy Goldsmith MD - 06/16/2024 10:49 AM EDT Labs done by outside provider documented in this encounter Plan of Treatment Upcoming Encounters Date Type Department Care Team (Late st Contact Info) Description 07/16/2024 11:15 AM EDT Office Visit [facility] MEDICINE [address] [place] [address] Emy Askew MD 230 [place], [place] [phone] documented as of this encounter Procedures Procedure Name Priority Date/Time Associated Diagnosis Comments GLUCOSE, WHOLE BLOOD Routine 06/16/2024 10:45 AM EDT documented in this encounter Results * (ABNORMAL) Glucose, Whole Blood (06/16/2024 10:45 AM EDT) Glucose, Whole Blood 263(H) 60 - 115 mg/dL [facility] Comment:METER #: [id number] Testing performed in the Endocrinology Department [address] , [address], [facility]. 06/16/2024 10:4 5 AM EDT 06/16/2024 10:48 AM EDT us Generic External Data Provider LAB BLOOD ORDERAB LES Final Result [facility] [address] [place] [address] [phone] documented in this encounter Visit Diagnoses Not on filedocumented in this encounter Additional Health Concerns Assessment Noted Time PHQ-9 Depression Total Score: 10 024 2:37 PM EDT documented as of this encounter Care Teams Culinary Assistant Relationship Specialty Start Date End Date Emy Askew MD 230 [place] [address] PCP - General Internal Medicine 07/25/22 documented as of this encounter
--- OUTSIDE RECORDS SUMMARY | 2024-06-20 23:59 | XMS_ITS | Encounter Summary ---
Author Organization [employer] Address [address] [place] [address] 7 [place] [address] Care Team Providers Care Crystal Gazer Name Role Phone Kenya Sol [facility] Primary Care Provider [phone] Emy Askew MD Primary Care Pro vider Encounter Details Date Type Department Care Team (Late st Contact Info) Description 05/28/2022 Orders Only [facility] CHC MED & PEDS [address] [place], [place] [phone] Candy Miller LPN Social History Tobacco Use [...] Office Visit [facility] MEDICINE 230 [place], [place] [phone] Emy Askew MD 230 [place], [place] [phone] documented as of this encounter Visit Diagnoses Not on filedocumented in this encounter Care Teams Crystal Gazer Relationship Specialty Start Date End Date Kenya Sol FNP [address] [place] [phone] PCP - General Family Medicine 01/22/22 07/24/22 Emy Askew MD 230 [place] [address] PCP - General Internal Medicine 07/25/22 documented as of this encounter
--- OUTSIDE RECORDS SUMMARY | 2024-06-20 23:59 | XMS_ITS | Encounter Summary ---
Author Organization [employer] Address [address] [place] [address] 7 [place] [address] Care Team Providers Care Dough Machine Operator Name Role Phone Emy Askew MD Primary Care Pro vider Reason for Visit * Reason Onset Date Comments Triage 07/31/2022 Encounter Details Date Type Department Care Team ([facility] st Contact Info) Description 07/31/2022 Telephone [facility] MEDICINE [address] [place] [address] Emy Askew MD 230 [place] [address] Triage Social History Tobacco Use Types Packs/Day [...] The caller accepted this outcome Patient speaks russian. documented in this encounter Plan of Treatment Upcoming Encounters Date Type Department Care Team (Late st Contact Info) Description 07/16/2024 11:15 AM EDT Office Visit [facility] MEDICINE [address] [place] [address] [phone] Emy Askew MD [address] [place] [address] [phone] documented as of this encounter Visit Diagnoses Not on filedocumented in this encounter Care Teams Dough Machine Operator Relationship Specialty Start Date End Date Emy Askew MD [address] [place] [address] [phone] PCP - General Internal Medicine 07/25/22 documented as of this encounter
--- OUTSIDE RECORDS SUMMARY | 2024-06-20 23:59 | XMS_ITS | Encounter Summary ---
Author Organization [employer] Address [address] [place] [address] 7 [place] [address] Care Team Providers Care Position Classification Specialist Name Role Phone Emy Askew MD Primary Care Pro vider Reason for Visit * Reason Comments Med Refill Encounter Details Date Type Department Care Team ([facility] Contact Info) Description 02/14/2024 Refill [facility] MEDICINE 230 [place] [address] Emy Askew MD [address] [place] [address] Social History Tobacco Use Types Packs/Day Years [...] Visit [facility] MEDICINE [address] [place] [address] [phone] Emy Askew MD [address] [place] [address] documented as of this encounter Visit Diagnoses Not on filedocumented in this encounter Additional Health Concerns Assessment Noted Time PHQ-9 Depression Total Score: 10 024 2:37 PM EDT documented as of this encounter Care Teams Position Classification Specialist Relationship Specialty Start Date End Date Emy Askew MD [address] [place] [address] [phone] PCP - General Internal Medicine 07/25/22 documented as of this encounter
--- OUTSIDE RECORDS SUMMARY | 2024-06-20 23:59 | XMS_ITS | Encounter Summary ---
Author Organization [employer] [facility] Address [address] [place] [address] 7t [place] [address] Care Team Providers Care Product Safety Engineer Name Role Phone [facility] Primary Care Provider [phone] Emy Askew MD Primary Care Pro vider Reason for Visit * Reason Onset Date Comments Med Refill 05/11/2022 Encounter Details Date Type Department Care Team (Late st Contact Info) Description 05/11/2022 Telephone [facility] MEDICINE 230 [place] [address] [facility] 230 [place], [place] [phone] Med Refill Social History Tobacco Use Types [...] has lost the device. Please sent to [facility] - [place], [place] - [address] [place] [address] documented in this encounter Plan of Treatment Upcoming Encounters Date Type Department Care Team ([facility] st Contact Info) Description 07/16/2024 11:15 AM EDT Office Visit [facility] MEDICINE [address] [place] [address] Emy Askew MD [address] [place] [phone] documented as of this encounter Visit Diagnoses Not on filedocumented in this encounter Care Teams Product Safety Engineer Relationship Specialty Start Date End Date GrantsKenya FNP [address] [place] [address] PCP - General Family Medicine 01/22/22 07/24/22 Emy Askew MD [address] [place] [phone] PCP - General Internal Medicine 07/25/22 documented as of this encounter
--- OUTSIDE RECORDS SUMMARY | 2024-06-20 23:59 | XMS_ITS | Encounter Summary ---
Author Organization [employer] Address [address] [facility] 7t [place] [address] Care Team Providers Care Manager E Commerce Name Role Phone Emy Askew MD Primary Care Pro vider Encounter Details Date Type Department Care Team (Late st Contact Info) Description 06/20/2024 Orders Only GENERIC EXTERNAL DATA DEPARTMENT Provider, [...] Description 07/16/2024 11:15 AM EDT Office Visit [facility] MEDICINE 230 [place] [address] Emy Askew MD [address] [place] [address] documented as of this encounter Procedures Procedure Name Priority Date/Time Associated Diagnosis Comments CBC WITH AUTO DIFFERENTIAL Routine 06/20/2024 11:25 PM EDT LIPASE Routine 06/20/2024 11:25 PM EDT COMPREHENSIVE METABOLIC PANEL Routine 06/20/2024 11:25 PM EDT documented in this encounter Results * Lipase (06/20/2024 11:25 PM EDT) Lipase 26 8 - 78 U/L [facility] 06/20/2024 11:2 5 PM EDT 06/20/2024 11:28 PM EDT us Generic External Data Provider LAB BLOOD ORDERAB LES Final Result [facility] [address] [place] [address] [phone] * (ABNORMAL) Comprehensive Metabolic Panel (06/20/2024 11:25 PM EDT) Sodium 141 135 - 145 mmol/L [facility] Potassium 3.3 3.3 - 5.1 mmol/L [facility] Chloride 106 96 - 108 mmol/L [facility] Carbon Dioxide 24 22 - 29 mmol/L [facility] Anion Gap 14 12 - 20 [facility] Urea Nitrogen (BUN) 13 9 - 16 mg/dL [facility] Creatinine, Serum 0.72 0.5 - 1.4 mg/dL [facility] Creatinine Clr Calc Pharmacy 66.2 [facility] Comment:Provided height and weight: 154.94 cm,63.049 kg.eGFR (calculated from the MDRD study equation) and eCrCl(calculated from the Cockcroft-Gault equation) are based ondifferent parameters and may not yield comparable results.If eCrCl result is absurd, please check patient'sheight/weight. Estimated Glomerular Filt Rate >60 [facility] Comment:Chronic Kidney Disea se: Estimated GFR < 60 mL/min/1.70s4Guetly Kidney Disease: Estimated GFR < 15 mL/min/1.73m2 Glucose 141(H) 60 - 115 mg/dL [facility] Calcium 9.9 8.4 - 10.2 mg/dL [facility] Bilirubin, Total 0.5 0.0 - 1.0 mg/dL [facility] Aspartate Amino Transferase 22 5 - 31 U/L [facility] Alanine Aminotransferase 11 0 - 31 U/L [facility] Total Protein 7.8 6.5 - 8.0 g/dL [facility] Albumin Level 4.0 3.5 - 5.0 g/dL [facility] Alkaline Phosphatase 112 39 - 117 U/L [facility] 06/20/2024 11:2 5 PM EDT 06/20/2024 11:28 PM EDT us Generic External Data Provider LAB BLOOD ORDERAB LES Final Result [facility] [address] [place], [place] [phone] * (ABNORMAL) CBC auto differential (06/20/2024 11:25 PM EDT) White Blood Count 12.4(H) 4.8 - 10.8 X10*3/uL [facility] Red Blood Count 4.65 4.20 - 5.50 X10*6/uL [facility] Hemoglobin 13.7 12.0 - 16.0 g/dl [facility] Hematocrit 40.4 37.0 - 47.0 % [facility] Mean Corpuscular Volume 86.9 80.0 - 98.0 fL [facility] Mean Corpuscular Hemoglobin 29.5 27.0 - 33.0 pg [facility] Mean Corpuscular HGB Conc 33.9 31.0 - 35.0 g/dl [facility] Red Cell Distribution Width 14.6 11.0 - 16.0 % [facility] Platelet Count 326 160 - 400 X10*3/uL [facility] Mean Platelet Volume 9.3(L) 9.4 - 12.3 fL [facility] Neutrophils Percent Auto 66.8 45 - 73 % [facility] Imm Gran Pct Auto 0.2 0.0 - 0.4 % [facility] Lymphocytes Percent Auto 17.3(L) 20 - 40 % [facility] Monocytes Percent Auto 9.0 2 - 11 % [facility] Eosinophils Percent Auto 6.2(H) 0 - 4 % [facility] Basophils Percent Auto 0.5 0 - 2 % [facility] NRBC Pct Auto 0.0 0.0 - 0.2 /100WBC [facility] Neutrophils Absolute Auto 8.3 2.0 - 8.3 x10*3/uL [facility] Imm Gran Abs Auto 0.03 0.00 - 0.03 X10*3/uL [facility] Lymphocytes Absolute Auto 2.2 1.2 - 4.9 X10*3/uL [facility] Monocytes Absolute Auto 1.1 0.1 - 1.2 X10*3/uL [facility] Eosinophils Absolute Auto 0.8(H) 0.0 - 0.4 X10*3/uL [facility] Basophils Absolute Auto 0.1 0.0 - 0.2 X10*3/uL [facility] NRBC Abs Auto 0.000 0.0 - 0.012 X10*3/uL [facility] 06/20/2024 11:2 5 PM EDT 06/20/2024 11:28 PM EDT us Generic External Data Provider LAB BLOOD ORDERAB LES Final Result Performing Organization Address City/State/[facility] Co de Phone Number [facility] [address] [place] [address] [phone] documented in this encounter Visit Diagnoses Not on filedocumented in this encounter Additional Health Concerns Assessment Noted Time PHQ-9 Depression Total Score: 10 024 2:37 PM EDT documented as of this encounter Care Teams Manager E Commerce Relationship Specialty Start Date End Date Emy Askew MD [address] [place] [address] PCP - General Internal Medicine 07/25/22 documented as of this encounter
--- OUTSIDE RECORDS SUMMARY | 2024-06-20 23:59 | XMS_ITS | Encounter Summary ---
Author Organization [employer] [facility] Address [address] [place] [address] 7t [place] [address] Care Team Providers Care Endoscopy Technican Name Role Phone [facility] Primary Care Provider [phone] Emy Askew MD Primary Care Pro vider Encounter Details Date Type Department Care Team (Late st Contact Info) Description 03/26/2022 Orders Only [facility] MEDICINE [address] [place], [place] [phone] Lizett Cannon LPN Social History Tobacco Use [...] 11:15 AM EDT Office Visit [facility] MEDICINE [address] [place], [place] [phone] Emy Askew MD 230 [place], [place] [phone] documented as of this encounter Visit Diagnoses Not on filedocumented in this encounter Care Teams Endoscopy Technican Relationship Specialty Start Date End Date Kenya Sol FNP [address] [place] [address] PCP - General Family Medicine 01/22/22 07/24/22 Emy Askew MD [address] [place] [address] PCP - General Internal Medicine 07/25/22 documented as of this encounter
--- OUTSIDE RECORDS SUMMARY | 2024-06-20 23:59 | XMS_ITS | Data Portability ---
Author Organization [employer] [facility], [place] [facility] Address [address] [place] [address] Care Team Providers Care Sock Mender Name Role Phone HIM [facility] OTHER [facility] OTHER [phone] Assessment Encounter Date Assessment Date Assessment LastModified by Organization Details LastModified Time 04/13/2024 04/13/2024 As noted, we were called to see this patient regarding concerns of URI symptoms. Evaluation in the field was performed by my botanical technical officer colleague, as noted above, I provided real-time [...] QL IA, respiratory specimen [email or web address] [facility], [address] [place] [address], [phone] 14:42:18 rapid flu (A+B) [email or web address] [facility], [address] [place] [address], [phone] 5 14:42:21 Referral None recorded. Procedures None [...] Name and Address Organization Details Recorded Time 75059 codeine medicatio n Not available Not available Not available 04/13/2024 2670 RxNorm Not Available [facility] 09:12:08 02678 Bactrim medicatio n Not available Not available Not available 04/13/2024 26564 9 RxNorm Not Available [facility] - production 5 09:12:08 98878 sulfameth oxazole medicatio n Not available Not available Not available 04/13/2024 04568 RxNorm Not Available [facility] - production 5 09:12:08 19809 trimethop rim medicatio n Not available Not available Not available 04/13/2024 81360 RxNorm Not Available [facility] 5 09:12:08 Medications Name [...] SNOMED-CT Code Diagnosis ICD10 Code Diagnosis Note [id number] Sebastian Vanessa MD Main - [facility] [address] [place] [address] 04/13/2024 14:39:43 04/13/2024 21:52:34 Viral upper respiratory tract infection 602935339 J06.9 Health Concerns Section Related Observation LastModified by Organization Detai ls LastModified Time None Recorded Concern Status LastModified by Organization Details LastModified Time None Recorded Advance Directives Directive None Recorded Payers Encounter Date Sequence Insurance Name Policy Number Policy Mendez Covered Member ID Mendez Member ID Guarantor Name 04/13/2024 1 [facility] - DOS ON OR AFTER 2022 - DUAL ELIGIBLE - SENIOR LIVING OPTIONS AND ONE CARE (MEDICARE REPLACEMENT/ADV ANTAGE - HMO) Jennifer Gu [id number] Jennifer Gu Notes Date Note Type Note [...] at 04/13/2024 - 09:12 Comments: HPI reviewed Suppression Crew Leader Organization Information for Emanuel Paige Legal Name: [employer] Address: [address] [place] [address], Cost Coordinator: Vinny Delgadillo MD CLIA No.: [id number] Suppression Crew Leader POC Test Results from Emanuel Paige - ALS Rapid influenza antigen (14:32:34) Flu: - Rapid COVID antigen (14:32:35) COVID: - ...................... ...................... ...................... ...................... ...................... ...................... ......... Suppression Crew Leader Note From Emanuel Paige: Dispatch to the [...] test negative, rapid flu test positive negative. [facility] consulted. Red flags discussed. All times are approximate. ...................... ...................... ...................... ...................... ...................... ...................... ......... [facility] Consulted: Sebastian Vanessa ...................... ...................... ...................... ...................... ...................... ...................... ......... Disposition: Fulfilled Sebastian Vanessa MD [address] [place] [address],[address], [place], [address], [employer] [facility] 04/13/2024 15:34:43 OBGyn Episode No OBEpisode recorded.
--- OUTSIDE RECORDS SUMMARY | 2024-06-20 23:59 | XMS_ITS | Encounter Summary ---
Author Organization [facility] Address [address] [place] [address] [facility] [place] [address] Care Team Providers Care Jailer Name Role Phone Cyn Bosch MD Primary Care Provider Kenya Delong [facility] Primary Care Provider Emy Askew MD Primary Care Pro vider Encounter Details Date Type Department Care Team (Latest Contact Info) Description 05/09/[address] [facility] CONVERSIONS Dental, Provider, DDS Social [...] Description 07/16/2024 11:15 AM EDT Office Visit [facility] MEDICINE [address] [place] [address] Emy Askew MD [address] [place], [place] [phone] documented as of this encounter Visit Diagnoses Not on filedocumented in this encounter Care Teams Jailer Relationship Specialty Start Date End Date Cyn Bosch MD PCP - General Family Medicine 08/20/19 01/21/22 Kenya Sol FNP [address] [place] [address] PCP - General Family Medicine 01/22/22 07/24/22 Emy Askew MD [address] [place] [address] PCP - General Internal Medicine 07/25/22 documented as of this encounter
--- OUTSIDE RECORDS SUMMARY | 2024-06-20 23:59 | XMS_ITS | Encounter Summary ---
Author Organization [facility] Address [address] [place] [address] 7t [place] [address] Care Team Providers Care Meat Manager Name Role Phone [facility] Primary Care Provider [phone] Emy Askew MD Primary Care Pro vider Reason for Visit * Reason Onset Date Comments VISION 03/13/2022 Encounter Details Date Type Department Care Team ([facility] st Contact Info) Description 03/13/2022 Telephone [facility] MEDICINE [address] [place] [address] [facility] [address] [place] [address] VISION Social History Tobacco Use Types Packs/Day [...] center regarding an eye exam. 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
--- OUTSIDE RECORDS SUMMARY | 2024-06-20 23:59 | XMS_ITS | Encounter Summary ---
Author Organization [employer] Address [address] [facility] 7t [place] [address] Care Team Providers Care Hydraulics Engineer Name Role Phone Emy Askew MD Primary Care Pro vider Reason for Visit * Reason Onset Date Comments Chart Prep 06/19/2024 Encounter Details Date Type Department Care Team ([facility] st Contact Info) Description 06/19/2024 Telephone [facility] MEDICINE [address] [place] [address] Lori Granados FNP [address] [place] [address] Chart Prep Social History Tobacco Use Types Packs/Day Years [...] encounter Miscellaneous Notes * Telephone Encounter - Keren Gurrola [place] - 06/19/2024 8:52 AM EDT Chart Prep Labs: done Images: not done Referrals: appointment pending Vaccines due: Covid, Flu Screenings: colonoscopy and foot exam Overdue care gaps: PHQ-9 documented in this encounter Plan of Treatment Upcoming Encounters Date Type Department Care Team (Late st Contact Info) Description 07/16/2024 11:15 AM EDT Office Visit [facility] MEDICINE [address] [place] [address] Emy Askew MD [address] [place] [address] documented as of this encounter Visit Diagnoses Not on filedocumented in this encounter Additional Health Concerns Assessment Noted Time PHQ-9 Depression Total Score: 10 024 2:37 PM EDT documented as of this encounter Care Teams Hydraulics Engineer Relationship Specialty Start Date End Date Emy Askew MD [address] [place] [address] PCP - General Internal Medicine 07/25/22 documented as of this encounter
--- OUTSIDE RECORDS SUMMARY | 2024-06-20 23:59 | XMS_ITS | Data Portability ---
Author Organization [place] [facility], Allergy Address [address] [place] [address] Assessment No assessment recorded. Plan of Treatment Reminders Order Date Submit Date Provider Last Modified By Organization Details Last Modified Time Details Appointments None recorded. Lab None recorded. Referral None recorded. Procedures None recorded. Surgeries None recorded. Imaging [place], modified barium swallow study [address] [place] [address] [facility]osit Imaging Dept, [address] [place] [address], [address], 5 11:51:40 Medication Orders None recorded. Patient TargetsNo targets recorded. Patient InstructionsNo instructions recorded. Reason for Referral None Reported. Problems Name Problem SNOMED Code Status Onset Date Resolution Date Notes Provider Name and Address Organization Details Recorded Time Dysphagia 17563592 Active 2018 Other dysphagia; Note: Date Diagnosed: 05/13/2018 9:47 AM (R13.19) Not Available [facility] 4 02:27:43 [place] ce of salivary secretion 72000906 Active 2018 Xerostomia ; Note: Date Diagnosed: 05/13/2018 9:47 AM (K11.7) Not Available [facility] 4 02:27:54 Dysphonia 23804722 Active 2017 Hoarseness ; Note: Date Diagnosed: 02/17/2018 9:52 AM (R49.0) Not Available [facility] 4 02:27:44 Chronic sialadeni tis 920957336 Active 2016 Chronic sialoadeni tis; Note: Date Diagnosed: 07/04/2016 2:17 PM (K11.23) Not Available [facility] 4 02:27:48 Sj? ? 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 Diseases of the salivary glands: Hypertroph y; CMS Risk: moderate risk CMS Treatment: establishe d problem (to examiner): stable or improved N ote: Date Diagnosed: 12/30/2013 2:35 PM (527.1) Not Available [facility] 4 02:27:37 Bilateral hearing loss 19770550 Active 2018 Other specified hearing loss, bilateral; Note: Date Diagnosed: 08/12/2018 10:01 AM (H91.8X3) Not Available [facility] 4 02:27:41 Oropharyn geal dysphagia 01515645 Active 2024 UMESH DIAZ MD [address] [place] [address], [phone] , [facility] 5 13:35:47 Problem Notes None recorded. Procedures Surgical History Date Name Laterality Status Provider Name and Address Organization Details Recorded Time 03/13/2024 FFL_RE completed UMESH DIAZ MD [address] [place] [address], [phone], [facility] 03/13/2024 13:36:13 Imaging Results None recorded. Procedure Notes None recorded. Medical Equipment None Reported. Allergies Allergen ID Allergen Name Allergen Category Reaction Reaction Severity Criticality Documentation Date Start Date Code Code System Note Provider Name and Address Organization Details Recorded Time 78725 Bactrim medicatio n other Not available Not available 07/16/2023 38243 9 RxNorm React ion: unkno wn, unspe cifie d;; Not Available [facility] 4 00:55:51 06492 codeine sulfate medicatio n other Not available Not available 07/16/2023 29309 RxNorm React ion: unkno wn, unspe cifie d;; Not Available [facility] 4 00:55:56 Medications Name Sig Start Date Stop Date Status Note LastModified by Organization Details LastModified Time medbox status USE DIRECTED active Not Available Not Available No t Available furosemid e 40 mg tablet TAKE 1 TABLET BY MOUTH EVERY MORNING active Not Available Not Available No t Available Augmentin 875 mg-125 mg tablet 2017 active Medicati on ID: 744028 D uration Value: 5 Prescri bed By [...] nebulizat ion 2018 active Medicati on ID: 547889 D uration Value: 5 Brand Name: albutero [...] mg tablet 2018 active Medicati on ID: 853536 D uration Value: 30 Brand Name: lisinopr [...] mg tablet 2018 active Medicati on ID: 825697 D uration Value: 30 Brand Name: buspiron e Send Method: E-Prescr ibed Sub s Allowed: subs OK Speci al Instruct ion: TAKE 1 TABLET BY MOUTH THREE TIMES DAILY NEEDED ANXIETY Medicati onGeneri cName: buspiron e Not Available Not Available Not Available Tiazac 120 mg capsule,e xtended release 02/04 completed Medicati on ID: 54395 Re ason: () Brand Name: Tiazac S [...] elayed release 2018 active Medicati on ID: 020285 D uration Value: 30 Brand Name: omeprazo le Send Method: E-Prescr ibed Sub s Allowed: subs OK Speci al Instruct ion: TAKE 1 CAPSULE TWICE DAILY IN THE MORNING AND IN THE EVENING 1 HORA AN KALEN DE LAS COMIDAS Medicati onGeneri cName: omeprazo le Not Available Not Available Not Available Aspirin Childrens 81 mg chewable tablet 2013 active Medicati on ID: 44603 Br and Name: Aspirin Children s Send [...] mg tablet 2018 active Medicati on ID: 962450 D uration Value: 30 Brand Name: levon post ne Send Method: E-Prescr ibed Sub s Allowed: subs OK Speci al Instruct ion: TAKE 2 TABLETS BY MOUTH ONCE DAILY IN THE MORNING Medicati onGeneri cName: levon jenkinsqui ne Not Available Not Available Not Available ibuprofen 600 mg tablet 2018 active Medicati on ID: 972612 D uration Value: 30 Brand Name: ibuprofe [...] 24 hr 2018 active Medicati on ID: 058471 D uration Value: 30 Brand Name: metformi n Send Method: E-Prescr ibed Sub s Allowed: subs OK Speci al Instruct ion: TAKE 1 TABLET BY MOUTH TWICE DAILY IN THE MORNING AND IN THE EVENING W ITH FOOD Med icationG enericNa me: metformi n Not Available Not Available Not Available Ambien 5 mg tablet 2013 active Medicati on ID: 38028 Br and Name: Ambien S end Method: [...] mg capsule 2013 active Medicati on ID: 92964 Br and Name: Kade Rivera end Method: [...] inhalatio n 2018 active Medicati on ID: 739760 D uration Value: 30 Brand Name: Breo [...] subcutane ous 2018 active Medicati on ID: 483761 D uration Value: 35 Brand Name: Humulin [...] Updated DateTime 03/13/2024 157.48 cm 26 kg/m2 83425.12 g Shantell Wise [place] [facility] 03/13/2024 13:27:58 Social History None recorded. Functional Status None recorded. Mental Status None recorded. Family History Nothing Reported. Medical History No medical history recorded. Gynecological HistoryNo gynecological history recorded. Obstetrics History GPAL:G 0 P 0 0 0 0 Past Encounters Encounter ID Performer Location Encounter Start Date Encounter Closed Date Diagnosis/Indication Diagnosis SNOMED-CT Code Diagnosis ICD10 Code Diagnosis Note [id number] UMESH DIAZ MD [facility] [address] [place] [address] 03/13/2024 13:18:07 03/13/2024 13:52:50 Oropharyngeal dysphagia 96071462 R13.12 Exam and laryngosco py were normal. I recommend a swallow study (MBS) to reassess her swallow. F/u after. If normal I would suggest GI referral especially given her Sjogrens. Sj? ? ?gren's syndrome 51937410 M35.00 Encouraged hydration. Will consider GI referral [...] Mendez Member ID Guarantor Name 03/13/[address] [facility] - DOS ON OR AFTER 2022 - MEDICARE ADVANTAGE [place] & [place] (MEDICARE REPLACEMENT/AD VANTAGE - PPO) Jennifer Gu [id number] Jennifer Gu Notes Date Note Type Note [...] and dry mouth. UMESH DIAZ MD [address], [address], [place] - [facility] 03/13/2024 13:43:36 OBGyn Episode No OBEpisode recorded.
--- OUTSIDE RECORDS SUMMARY | 2024-06-20 23:59 | XMS_ITS | Encounter Summary ---
Author Organization [employer] [facility] Address [address] [place] [address] [facility] [place] [address] Care Team Providers Care Contact Lens Fitter Name Role Phone Cyn Bosch MD Primary Care Provider Kenya Delong [facility] Primary Care Provider [phone] Emy Askew MD Primary Care Pro vider Encounter Details Date Type Department Care Team (Latest Contact Info) Description 10/26/2021 Abstract [facility] CONVERSIONS Dental, Provider, DDS Social History [...] Description 07/16/2024 11:15 AM EDT Office Visit [facility] MEDICINE [address] [place] [address] Eym Askew MD [address] [place], [place] [phone] documented as of this encounter Visit Diagnoses Not on filedocumented in this encounter Care Teams Contact Lens Fitter Relationship Specialty Start Date End Date Cyn Bosch MD PCP - General Family Medicine 08/20/19 01/21/22 Kenya Sol FNP [address] [place] [address] PCP - General Family Medicine 01/22/22 07/24/22 Emy Askew MD [address] [place] [address] PCP - General Internal Medicine 07/25/22 documented as of this encounter
--- OUTSIDE RECORDS SUMMARY | 2024-06-20 23:59 | XMS_ITS | Encounter Summary ---
Author Organization [employer] Address [address] [facility] [address] 7t [place] [address] Care Team Providers Care Obiee Consultant Name Role Phone Emy Askew MD Primary Care Pro vider Encounter Details Date Type Department Care Team ([facility] st Contact Info) Description 02/23/2024 Orders Only [facility] MEDICINE [address] [place] [address] Provider, MD Waylon Social History Tobacco Use [...] Description 07/16/2024 11:15 AM EDT Office Visit [facility] MEDICINE [address] [place] [address] Emy Askew MD [address] [place] [address] documented as of this encounter Procedures Procedure [...] documented as of this encounter Care Teams Obiee Consultant Relationship Specialty Start Date End Date Emy Askew MD [address] [place] [address] PCP - General Internal Medicine 07/25/22 documented as of this encounter
--- OUTSIDE RECORDS SUMMARY | 2024-06-20 23:59 | XMS_ITS | Clinical Summary ---
Author Organization 175 [facility] Address [address] [place] [address] Phone Care Team Providers Care Art Professor Name Role Phone Berkley Bird MD Primary [...] 1:30 PM EST Office Visit Orthopedic Surgery [place] [address] [phone] Magen Velasco DPM Controlled type 2 diabetes with neuropathy ([facility] V24, [facility] V28) (Primary Dx); Pain in toes of [...] 07/09/2024 9:15 AM EDT Office Visit Orthopedic [facility] [address] [phone] Magen Velasco DPM [address] [address] Health Maintenance Due Date Last Done Comments [...] mmol/L LAB CHEMISTRY METHOD 04/06/2024 6:42 PM [facility] Potassium 3.5 3.5 - 5.5 mmol/L LAB CHEMISTRY METHOD 04/06/2024 6:42 PM [facility] Chloride 102 96 - 110 mmol/L LAB CHEMISTRY METHOD 04/06/2024 6:42 PM [facility] CO2 31 21 - 32 mmol/L LAB CHEMISTRY METHOD 04/06/2024 6:42 PM [facility] Anion Gap 5 3 - 11 LAB CHEMISTRY METHOD 04/06/2024 6:42 PM [facility] Glucose 183(H) 70 - 100 mg/dL LAB CHEMISTRY METHOD 04/06/2024 6:42 PM [facility] BUN 17 5 - 25 mg/dL LAB CHEMISTRY METHOD 04/06/2024 6:42 PM [facility] Creatinine 0.94 0.50 - 1.10 mg/dL LAB CHEMISTRY METHOD 04/06/2024 6:42 PM [facility] eGFR 67 >=60 mL/min/1. 73m2 LAB CHEMISTRY METHOD 04/06/2024 6:42 PM [facility] Comment:Calculation based on the??Chronic Kidney Disease Epidemiology Collaboration (CKD-EPI) equation refit??without adjustment for race. BUN/Creatinine Ratio 18.1 LAB CHEMISTRY METHOD 04/06/2024 6:42 PM [facility] Calcium 10.3 8.5 - 10.5 mg/dL LAB CHEMISTRY METHOD 04/06/2024 6:42 PM [facility] AST (SGOT) 15 10 - 42 unit/L LAB CHEMISTRY METHOD 04/06/2024 6:42 PM [facility] ALT (SGPT) 22 10 - 60 unit/L LAB CHEMISTRY METHOD 04/06/2024 6:42 PM [facility] Alkaline Phosphatase 140(H) 42 - 121 unit/L LAB CHEMISTRY METHOD 04/06/2024 6:42 PM [facility] Total Protein 7.6 6.0 - 8.0 g/dL LAB CHEMISTRY METHOD 04/06/2024 6:42 PM [facility] Albumin 3.6 3.2 - 5.0 g/dL LAB CHEMISTRY METHOD 04/06/2024 6:42 PM [facility] Total Bilirubin 0.3 0.0 - 1.4 mg/dL LAB CHEMISTRY METHOD 04/06/2024 6:42 PM [facility] Blood Venous blood specimen / Unknown Venipuncture / Unknown 04/06/2024 2:00 PM EST 04/06/2024 2:00 PM EST us Magen Velasco DPM LAB BLOOD ORDERABLES Final Result [facility] [address] [place] [address], from Last [address] [phone] [facility] MEDICARE Member Subscriber Plan / Payer (Ef fective 2023-Present) Name:Jennifer Palmer Relation to Subscriber:Self Name:Jennifer Palmer Payer ID:[id number] Group ID:[id number] Type:Not on file Address: [address] [place] [address] Care Teams Art Professor Relationship Specialty Start Date End Date Berkley Bird MD [address] [address] PCP - General Internal Medicine 02/20/24
--- OUTSIDE RECORDS SUMMARY | 2024-06-21 | XMS_ITS | Encounter Summary ---
Author Organization [facility] Address [address] [place] [address] [facility] [place] [address] Care Team Providers Care Transit Planner Name Role Phone Cyn Bosch MD Primary Care Provider Kenya Delong [facility] Primary Care Provider [phone] Emy Askew MD Primary Care Pro vider Encounter Details Date Type Department Care Team (Latest Contact Info) Description 09/30/2018 Abstract [facility] CONVERSIONS Dental, Provider, DDS Social History [...] Description 07/16/2024 11:15 AM EDT Office Visit [facility] MEDICINE [address] [place] [address] Emy Askew MD [address] [place], [place] [phone] documented as of this encounter Visit Diagnoses Not on filedocumented in this encounter Care Teams Transit Planner Relationship Specialty Start Date End Date Cyn Bosch MD PCP - General Family Medicine 08/20/19 01/21/22 Kenya Sol FNP [address] [place] [address] PCP - General Family Medicine 01/22/22 07/24/22 Emy Askew MD [address] [place] [address] [place] [address] PCP - General Internal Medicine 07/25/22 documented as of this encounter
--- OUTSIDE RECORDS SUMMARY | 2024-06-21 | XMS_ITS | Encounter Summary ---
Author Organization [employer] Address [address] [facility] 7t [place] [address] Care Team Providers Care Acid Purification Equipment Operator Name Role Phone Emy Askew MD Primary Care Pro vider Encounter Details Date Type Department Care Team ([facility] st Contact Info) Description 06/19/2024 10:15 AM EDT Office Visit [facility] MEDICINE [address] [place] [address] Lori Granados FNP [address] [place] [address] Social History Tobacco Use Types Packs/Day Years [...] Sign Reading Time Taken Comments Blood Pressure 121/82 06/19/2024 10:10 AM EDT Pulse 79 06/19/2024 10:10 AM EDT Temperature 36.5 ??C (97.7 ??F) 06/19/2024 10:10 AM E DT Respiratory Rate 18 06/19/2024 10:10 AM EDT Oxygen Saturation 96% 06/19/2024 10:10 AM EDT Inhaled Oxygen Concentration - - Weight 64.2 kg (141 lb 9.6 oz) 06/19/2024 10:10 AM EDT Height 157.5 cm (5' 2 ) 06/19/2024 10:10 AM EDT Body Mass Index 25.9 06/19/2024 10:10 AM EDT documented in this encounter Plan of Treatment Upcoming Encounters Date Type Department Care Team (Late st Contact Info) Description 07/16/2024 11:15 AM EDT Office Visit [facility] MEDICINE [address] [place] [address] Emy Askew MD [address] [place] [address] documented as of this encounter Visit Diagnoses Not on filedocumented in this encounter Additional Health Concerns Assessment Noted Time PHQ-9 Depression Total Score: 10 024 2:37 PM EDT documented as of this encounter Care Teams Acid Purification Equipment Operator Relationship Specialty Start Date End Date Emy Askew MD [address] [place] [address] PCP - General Internal Medicine 07/25/22 documented as of this encounter
--- OUTSIDE RECORDS SUMMARY | 2024-06-21 | XMS_ITS | Encounter Summary ---
Author Organization [employer] Address [address] [place] [address] [address] [place] [address] Care Team Providers Care Meat Loiner Name Role Phone Emy Askew MD Primary Care Pro vider Reason for Visit * Reason Onset Date Comments Nurse Triage 06/18/2024 Encounter Details Date Type Department Care Team ([facility] st Contact Info) Description 06/18/[address] [facility] MEDICINE [address] [place] [address] Emy Askew MD [address] [place] [address] Nurse Triage Social History Tobacco Use Types [...] encounter Miscellaneous Notes * Telephone Encounter - Madai Nieves RN - 06/18/2024 11:08 AM EDT No electrician supervisor airplane needed as this report writer speaks Wolof. Call returned to Jennifer Palmer to triage below. Reports having hair loss x 2-3 weeks ago. Per pt has 2 quarter sized bald spots on scalp. NO redenss or rash of scalp. Per pt having increased stress due to recent loss of granddaughter. Per pt doeshave mental health therapist, usually speak s with her every 2 weeks. Pt advised of disposition, agrees to sick on site tomorrow with EMS INSTRUCTOR on blue team. Reviewed home care advise, ER precautions and reasons to call back. Protocol Used: Hair Loss (Pediatric) Protocol-Based Disposition: Home Care Override (Final) Disposition: See in Office or Video Visit Today or Tomorrow Override Reason: Other Override Notes: Patient request to be seen sooner than upcoming PCP appt. Future Appointments Date Time Provider Department Center 06/19/2024 10:15 AM JULIO CÉSAR Sifuentes MEDICINE [facility] 07/16/2024 11:15 AM Emy Goldsmith MD MEDICINE [facility] Positive Triage Question: * Widespread hair thinning follows a major stress about 3 months ago * All higher-acuity triage questions were negative Care Advice Discussed: * Reassurance and Education - Hair Loss after Stress * Reasons To Call Back - You have other questions or concerns * Telephone Encounter - Katina Muñoz - 06/18/2024 10:33 AM EDT Symptom: Hair Loss Outcome: Schedule an appointment to be seen within 3 days Reason: This is the only possible outcome for this symptom The caller accepted this outcome. Contact pt at [phone] (french) documented in this encounter Plan of Treatment Upcoming Encounters Date Type Department Care Team (Late st Contact Info) Description 07/16/2024 11:15 AM EDT Office Visit [facility] MED[facility]INE [address] [place] [address] Emy Askew MD [address] [place] [phone] documented as of this encounter Visit Diagnoses Not on filedocumented in this encounter Additional Health Concerns Assessment Noted Time PHQ-9 Depression Total Score: 10 024 2:37 PM EDT documented as of this encounter Care Teams Meat Loiner Relationship Specialty Start Date End Date Emy Askew MD [address] [place] [id number] PCP - General Internal Medicine 07/25/22 documented as of this encounter
--- OUTSIDE RECORDS SUMMARY | 2024-06-21 | XMS_ITS | Clinical Summary ---
Author Organization [employer] Address [address] [place] [address] [address] [place] [address] Care Team Providers Care Network Coordinator Name Role Phone Emy Askew MD Primary [...] 20 mg by mouth in the morning. 03/29/19 23 Active DULoxetine (Cymbalta) [address] capsule Take 60 mg by mouth at bedtime. 03/29/19 23 Active albuterol (2.5 MG/3ML) 0.083% nebulizer solution inhale 3 milliliter by nebulization route every 4-6 hours PRN SOB/asthma. 05/15/19 19 Active dextran 70-hypromellose (dextran-70 & hydroxypropyl methylcellulose) 0.1-0.3 % ophthalmic solution use 2 drops into each eye every 1-2 hours as needed for dry eyes 07/09/19 18 Active Mouthwashes (Biotene Dry Mouth) liquid use twice daily as directed to prevent dry mouth 07/09/19 18 Active Fluticasone Furoate-Vilanterol (Breo Ellipta) 100-25 MCG/ACT aerosol powder Inhale 1 puff at bed time. 07/26/19 Active leflunomide (Arava) 20 MG tablet Take 20 mg by mouth in the morning. 07/26/19 Active gabapentin (Neurontin) 300 MG capsule Take 300 mg by mouth 2 times daily. By psych Active FREESTYLE LITE test stripIndications:T ype 2 diabetes mellitus with hyperglycemia (CMS/HCC),Type 2 diabetes mellitus without complications (CMS/HCC) TEST BLOOD SUGAR FOUR TIMES DAILY 100 strip 11/17/19 Active sodium chloride (Midland Nasal Kimberly) 0.65 % nasal spray Administer 1 spray into each nostril if needed for congestion. 30 mL 2 06/26/19 24 025 Active FreeStyle lancets 1 each by Other route at noon and 1 each in the evening. Test blood sugar 4 times a day. 100 each 08/07/19 24 025 Active estradiol (Estrace) 0.1 MG/GM vaginal cream Insert 1 g into the vagina Once per day. 1g vaginally x 14d, then twice weekly thereafter 45 g 2 11/12/19 Active lidocaine (Lidoderm) 5 % patch APPLY 1 PATCH TOPICALLY TO SKIN IN THE MORNING. LEAVE ON FOR 12 HOURS AND OFF FOR 12 HOURS DIRECTED MAY USE 2 PATCHES 60 patch 2 11/18/19 Active acetaminophen (Tylenol) 500 MG tabletIndications: Acute left-sided low back pain with left-sided sciatica Take 2 tablets (1,000 mg) by mouth every 6 (six) hours if needed for moderate pain, headaches or fever. 30 tablet 11/19/19 24 Active Farxiga 10 MG TAKE 1 TABLET BY MOUTH EVERY MORNING 30 tablet 2 12/17/19 24 Active melatonin 5 MG tablet Take 10 mg by mouth Once per day. Take 2 tabs by mouth at bedtime 12/25/19 Active clonazePAM (KlonoPIN) 0.5 MG tablet Take 0.5 mg by mouth if needed each day. 12/19/19 Active amLODIPine (Norvasc) 5 MG tablet Take 5 mg by mouth at noon and 5 mg in the evening. Active atorvastatin (Lipitor) 20 MG tablet Take 1 tablet (20 mg) by mouth at bedtime. 90 tablet 1 01/13/20 Active traZODone (Desyrel) 50 MG tablet Take 1 tablet (50 mg) by mouth if needed at bedtime for sleep. 90 tablet 01/13/20 24 Active cholecalciferol (D3 Super Strength) 50 MCG (2000 UT) capsuleIndications :Vitamin D deficiency, unspecified Take 1 capsule (50 mcg) by mouth in the morning. 90 capsule 1 01/13/20 24 Active semaglutide (Ozempic, 1 MG/DOSE,) 2 MG/1.5ML solution pen-injectorIndica tions:Type 2 Diabetes Mellitus Inject 1 mg under the skin 1 (one) time per week. 3 mL 5 01/13/20 24 Active carvedilol (Coreg) 25 MG tabletIndications: Benign essential hypertension Take 1 tablet (25 mg) by mouth with breakfast and with evening meal. 60 tablet 2 01/13/20 24 025 Active Diclofenac Sodium (Voltaren) 1 % gelIndications:Nec k pain,Osteoarthriti s of both knees, unspecified osteoarthritis type Apply topically to affected area twice a day as needed for pain 30 g 01/13/20 24 Active Ventolin HFA 108 (90 Base) MCG/ACT inhaler INHALE 2 PUFFS BY MOUTH EVERY 6 HOURS NEEDED FOR WHEEZING 18 g 2 02/05/20 24 Active Alcohol Swabs (Alcohol Prep) 70 % padsIndications:Ty pe 2 diabetes mellitus without complication, unspecified whether retirement insulin use (CMS/HCC) USE DIRECTED FIVE TIMES DAILY 100 each 5 03/25/19 25 Active cloNIDine (Catapres) 0.2 MG tablet TAKE 1 TABLET BY MOUTH TWICE DAILY IN THE MORNING AND IN THE EVENING 60 tablet 3 04/06/19 25 Active BD Pen Needle Jammie U/F 32G X 4 MM miscIndications:Ty pe 2 diabetes mellitus without complication, with long-term current use of insulin (CMS/HCC) USE THREE TO FOUR TIMES DAILY DIRECTED 100 each 11 04/29/19 25 Active senna (Senokot) 8.6 MG tablet TAKE 2 TABLETS BY MOUTH EVERY DAY NEEDED FOR CONSTIPATION 180 tablet 05/06/19 25 Active losartan (Cozaar) 100 MG tablet TAKE 1 TABLET BY MOUTH EVERY MORNING 90 tablet 05/06/19 25 Active docusate sodium (Colace) 100 MG capsuleIndications :Chronic constipation TAKE 1 CAPSULE BY MOUTH TWICE DAILY NEEDED FOR CONSTIPATION 180 capsule 05/06/19 25 Active Aspirin EC Adult Low Dose 81 MG EC tablet TAKE 1 TABLET BY MOUTH EVERY MORNING 90 tablet 1 05/12/19 25 Active calcium carbonate 1500 (600 Ca) MG tabletIndications: Benign essential hypertension TAKE 1 TABLET BY MOUTH EVERY MORNING 90 tablet 1 05/12/19 25 Active loratadine (Claritin) 10 MG tablet TAKE 1 TABLET BY MOUTH EVERY DAY NEEDED FOR ALLERGIES 90 tablet 1 05/12/19 25 Active cevimeline (Evoxac) 30 MG capsule TAKE 1 CAPSULE (30 MG) BY MOUTH 3 TIMES DAILY. 90 capsule 05/22/19 25 Active ibuprofen 400 MG tabletIndications: Neck pain Take 1 tablet (400 mg) by mouth every 6 (six) hours if needed for moderate pain or fever for up to 30 doses. 15 tablet 06/11/19 25 Active oxyCODONE (Roxicodone) 5 MG immediate release tabletIndications: Neck pain Take 1 tablet (5 mg) by mouth every 6 (six) hours if needed for severe pain. 12 tablet 06/11/19 25 Active amoxicillin (Amoxil) 500 MG capsuleIndications :Pharyngitis, unspecified etiology Take 1 capsule (500 mg) by mouth every 12 (twelve) hours for 10 days. 20 capsule 06/05/19 25 025 Active Problems Problem Noted Date Diagnosed Date [...] ago here - ---- requested record to [facility]-Jess[facility] Rivero Again today -MM 2019 - BIRADS [...] diet and exercise,discussed healthy life style - files supervisor referred already-pd to schedule apt. gave today information to pt to call for apt Assessment & Plan (10/23/2022 5:21 PM EDT): Advised pt to improve diet and exercise,discussed healthy life style - files supervisor referred already-pd to schedule apt Assessment & Plan (09/24/2022 8:29 PM EDT): Advised pt to improve diet and exercise,discussed healthy life style -discussed files supervisor referral - today Sialoadenitis of submandibular gland [...] referred by ENT for further eval in [place] but never went -referred again to ENT [...] referred by ENT for further eval in [place] but never went -referred again to ENT [...] w RA / Sjogren's disease, follows w belt loop maker - Continue care w specialist -on leflunomide and MTX Assessment & Plan (10/23/2022 5:23 PM EDT): Pt w RA / Sjogren's disease, follows w belt loop maker - Continue care w specialist -on leflunomide and MTX Assessment & Plan (09/24/2022 8:33 PM EDT): Pt w RA / Sjogren's disease, follows w belt loop maker - Continue care w specialist Bilateral post-traumatic [...] Pt following w psychiatrist and therapist at [facility]. Denies SI but has thoughts to be better off . - Continue care w specialist - Pt requests information to be able to change to an old age home --already received information -in process per pt Assessment & Plan (10/23/2022 5:23 PM EDT): Pt following w psychiatrist and therapist at [facility]. Denies SI but has thoughts to be better off . - Continue care w specialist - Pt requests information to be able to change to an old age home --already received information -in process per pt Assessment & Plan (09/24/2022 8:32 PM EDT): Pt following w psychiatrist and therapist at [facility]. Denies SI but has thoughts to be better off . - Continue care w specialist - Pt requests information to be able to change to an old age home -- I spoke w community case manager today and they will come to speak w pt to give info. Was told that there is no need to refer to CM for this. Type 2 diabetes mellitus without complication Assessment & Plan (12/06/2022 6:16 AM EDT): 09/2022 HbA1C 8.2<---8.7, CBG 248., total ch 169, trig 324( in fasting) ,HDL 36,LDL 69, Microalb neg Used to follow w development vice president, but lost care. Not on metformin for [...] - to f in 1 y. - Link Trainer: seen in 11/2022 Assessment & Plan (10/23/2022 5:46 PM EDT): 09/2022 HbA1C 8.2<---8.7, CBG 248., total ch 169, trig 324( in fasting) ,HDL 36,LDL 69, Microalb neg Used to follow w development vice president, but lost care. Not on metformin for [...] - to f in 1 y. - Link Trainer: referred today Assessment & Plan (09/24/2022 8:51 PM EDT): Today HbA1C 8.7, CBG 248. Used to follow w development vice president, but lost care. - DM2 labs. - Will consider increasing Trulicity at her next appt. - Pt not currently on Metformin, but used to be in the past. Will check at her next appt, and if she can tolerate it, will resume Rx. - Ophthalmology 07/2022 - to f in 1 y. - Link Trainer: will refer at next visit. Varicose veins of lower extremity 07/08/2017 Assessment & Plan (10/23/2022 5:12 PM EDT): Pt w lower extremity edema trace from 1+ before , possibly from Cardiazem and venous insufficiency. - Advised to use compression stockings,--started using with noted improved LE edema -I confirmed today w her supervising film or videotape editor-Dr Watkins #[phone] that pt does not have CHF and [...] (12/06/2022 6:19 AM EDT): Pt following with belt loop maker. Pt w consistently dry mouth. From med [...] for unclear reasons. - PT following w supervising film or videotape editor actively w on and off chest discomfort. [...] mg in pm - PT following w supervising film or videotape editor -will f BP in next 3 to 4 weeks Assessment & Plan (09/24/2022 8:43 PM EDT): BP slightly elevated at 144/94 - Holter 2019 neg. -echocardiogram 2018The left ventricular systolic function is normal. The visually estimated ejection fraction is between 60-65%. -stress test 2019 : nondiagnostic EKG For ischemia. - Will monitor BP manually at next visit. - PT following w supervising film or videotape editor Chronic constipation 12/24/2016 Gastroesophageal reflux disease without esophagi tis 12/24/2016 Hyperlipidemia associated with type 2 diabetes efrain العراقي 12/24/2016 Migraine 12/24/2016 Resolved Problems Problem Noted [...] in 2016 here . 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 Hold am of surgery lasix,amytriptiline,lisinopril .Hold ASA 5 days prior procedure and avoid NSAIDS 7 days prior procedure. -will rec to have post op EKG as rec by her supervising film or videotape editor for noted prolonged QTC -will rec to [...] Encounters Date Type Department Care Team Description 06/20/2024 Orders Only GENERIC EXTERNAL DATA DEPARTMENT Provider, Generic External Data 06/19/2024 10:15 AM EDT Office Visit [address] [address] Lori Granados FNP 06/19/2024 Travel 06/19/[address] [address] Lori Granados FNP Chart Prep 06/18/[address] [address] Emy Askew MD Nurse Triage 06/16/2024 Orders Only GENERIC EXTERNAL DATA DEPARTMENT Provider, Generic External Data 06/11/2024 Telephone [facility] [address] [address] Mehul Alexis MD Results 06/10/2024 8:40 AM EDT Office Visit [facility] [address] [address] Mehul Alexis MD Neck pain (Primary Dx); Acute intractable headache, unspecified headache type 06/10/2024 Telephone [facility] [address] [place] [phone] Mehul Alexis MD 06/10/2024 Orders Only [facility] [address] [address] Mehul Alexis MD 06/04/2024 10:00 AM EDT Office Visit [facility] [address] [address] Kaden Jaime MD Pharyngitis, unspecified etiology (Primary Dx) 05/27/[address] [address] Alden Cai CNM Results 05/26/2024 1:00 PM EDT Office Visit [facility] [address] [place] [address] Alden Cai CNM Visit for pelvic exam (Primary Dx); Vulvar itching 05/26/2024 Travel 05/20/2024 Refill [facility] [address] [place] [address] Dorinda Barajas ANP 05/10/2024 Refill [facility] [address] [place] [address] Emy Askew MD Benign essential hypertension 05/05/2024 Refill [facility] [address] [place] [address] Emy Askew MD Chronic constipation 04/28/2024 Refill [facility] [address] [place] [address] Emy Askew MD Type 2 diabetes mellitus without complication, with long-term current use of insulin (CMS/[facility]) 04/13/2024 Telephone [facility] [address] [place] [address] Emy Askew MD Nurse Triage 04/08/2024 Telephone [facility] [address] [place] [address] Jessica Valenzuela [place] Nguyen recall 04/05/2024 Refill [facility] [address] [place] [address] Emy Askew MD 03/25/2024 Refill [facility] [address] [place] [address] Emy Askew MD Type 2 diabetes mellitus without complication, unspecified whether store merchandiser insulin use (CMS/[facility]) from Last 3 Months Immunizations Name Administration [...] Mass Index 25.9 06/19/2024 10:10 AM EDT Plan of Treatment Upcoming Encounters Date Type Department Care Team (Late st Contact Info) Description 07/16/2024 11:15 AM EDT Office Visit [facility] [address] [place] [address] Emy Askew MD [address] [place] [address] Health Maintenance Due Date Last Done Comments CT Colonography 1960 FIT DNA/Cologuard 1960 FIT 1960 FOBT 1960 Sigmoidoscopy 1960 Diabetes: Foot Exam 1968 Dental Oral Exam 04/29/2022 10/26/2021, 10/2020, 04/06/2019, Additional history exists Dental Prophylaxis 01/18/2023 07/17/2022, 0 10/26/2021, 04/14/2021, Additional history exists Dental X-Ray: Full Mouth 08/20/2023 08/18/2020, 03/10/2020 COVID-19 Vaccine ( season) 2023 03/20/2023, 09/24/2022, [...] Use Screening 01/12/2025 01/13/2024 Mammogram 03/17/2025 03/17/2024, 092 , 07/28/2021, Additional history exists Tobacco Screening 06/19/2025 06/19/2024 Eye Exam 01/07/2026 01/08/2024, 11/0 08/2023, 01/08/2024, [...] Procedure Name Priority Date/Time Associated Diagnosis Comments LIPASE Routine 06/20/2024 11:25 PM EDT COMPREHENSIVE METABOLIC PANEL Routine 06/20/2024 11:25 PM EDT CBC WITH AUTO DIFFERENTIAL Routine 06/20/2024 11:25 PM EDT GLUCOSE, WHOLE BLOOD Routine 06/16/2024 10:45 AM [...] 3:30 PM EDT Periodontal disease Fractured dental adventism with loss of material HPV MRNA E6/E7 [...] Relevant to Health Maintenance Results * (ABNORMAL) CBC auto differential (06/20/2024 11:25 PM EDT) White Blood Count 12.4(H) 4.8 - 10.8 X10*3/uL [facility] Red Blood Count 4.65 4.20 - 5.50 X10*6/uL [facility] Hemoglobin 13.7 12.0 - 16.0 g/dl [facility] Hematocrit 40.4 37.0 - 47.0 % [facility] Mean Corpuscular Volume 86.9 80.0 - 98.0 fL [facility] Mean Corpuscular Hemoglobin 29.5 27.0 - 33.0 pg [facility] Mean Corpuscular HGB Conc 33.9 31.0 - 35.0 g/dl [facility] Red Cell Distribution Width 14.6 11.0 - 16.0 % [facility] Platelet Count 326 160 - 400 X10*3/uL [facility] Mean Platelet Volume 9.3(L) 9.4 - 12.3 fL [facility] Neutrophils Percent Auto 66.8 45 - 73 % [facility] Imm Gran Pct Auto 0.2 0.0 - 0.4 % [facility] Lymphocytes Percent Auto 17.3(L) 20 - 40 % [facility] Monocytes Percent Auto 9.0 2 - 11 % [facility] Eosinophils Percent Auto 6.2(H) 0 - 4 % [facility] Basophils Percent Auto 0.5 0 - 2 % [facility] NRBC Pct Auto 0.0 0.0 - 0.2 /100WBC [facility] Neutrophils Absolute Auto 8.3 2.0 - 8.3 x10*3/uL [facility] Imm Gran Abs Auto 0.03 0.00 - 0.03 X10*3/uL [facility] Lymphocytes Absolute Auto 2.2 1.2 - 4.9 X10*3/uL [facility] Monocytes Absolute Auto 1.1 0.1 - 1.2 X10*3/uL [facility] Eosinophils Absolute Auto 0.8(H) 0.0 - 0.4 X10*3/uL [facility] Basophils Absolute Auto 0.1 0.0 - 0.2 X10*3/uL [facility] NRBC Abs Auto 0.000 0.0 - 0.012 X10*3/uL [facility] 06/20/2024 11:2 5 PM EDT 06/20/2024 11:28 PM EDT us Generic External Data Provider LAB BLOOD ORDERAB LES Final Result Performing Organization Address [facility]/ZIP Co de Phone Number [facility] [address] [place] [address] [phone] * Lipase (06/20/2024 11:25 PM EDT) Lipase 26 8 - 78 U/L [facility] 06/20/2024 11:2 5 PM EDT 06/20/2024 11:28 PM EDT Generic External Data Provider LAB BLOOD ORDERAB LES Final Result Performing Organization Address [facility]/ZIP Co de Phone Number [facility] [address] [place] [address] [phone] * (ABNORMAL) Comprehensive Metabolic Panel (06/20/2024 11:25 PM EDT) Sodium 141 135 - 145 mmol/L [facility] Potassium 3.3 3.3 - 5.1 mmol/L [facility] Chloride 106 96 - 108 mmol/L [facility] Carbon Dioxide 24 22 - 29 mmol/L [facility] Anion Gap 14 12 - 20 [facility] Urea Nitrogen (BUN) 13 9 - 16 mg/dL [facility] Creatinine, Serum 0.72 0.5 - 1.4 mg/dL [facility] Creatinine Clr Calc Pharmacy 66.2 [facility] Comment:Provided height and weight: 154.94 cm,63.049 kg.eGFR (calculated from the MDRD study equation) and eCrCl(calculated from the Cockcroft-Gault equation) are based ondifferent parameters and may not yield comparable results.If eCrCl result is absurd, please check patient'sheight/weight. Estimated Glomerular Filt Rate >60 [facility] Comment:Chronic Kidney Disea se: Estimated GFR < 60 mL/min/1.21b7Nvybbl Kidney Disease: Estimated GFR < 15 mL/min/1.73m2 Glucose 141(H) 60 - 115 mg/dL [facility] Calcium 9.9 8.4 - 10.2 mg/dL [facility] Bilirubin, Total 0.5 0.0 - 1.0 mg/dL [facility] Aspartate Amino Transferase 22 5 - 31 U/L [facility] Alanine Aminotransferase 11 0 - 31 U/L [facility] Total Protein 7.8 6.5 - 8.0 g/dL [facility] Albumin Level 4.0 3.5 - 5.0 g/dL [facility] Alkaline Phosphatase 112 39 - 117 U/L [facility] 06/20/2024 11:2 5 PM EDT 06/20/2024 11:28 PM EDT us Generic External Data Provider LAB BLOOD ORDERAB LES Final Result [facility] [address] [place] [address] [phone] * (ABNORMAL) Glucose, Whole Blood (06/16/2024 10:45 AM EDT) Glucose, Whole Blood 263(H) 60 - 115 mg/dL [facility] Comment:METER #: [id number] Testing performed in the Endocrinology Department [address] , [address], [facility]. 06/16/2024 10:4 5 AM EDT 06/16/2024 10:48 AM EDT us Generic External Data Provider LAB BLOOD ORDERAB LES Final Result Performing Organization Address City/State/[facility] Co de Phone Number [facility] [address] [place] [address] [phone] * XR CERVICAL SPINE 3V (06/10/2024 9:13 AM EDT) Anatomical Region Laterality Modality Abdomen Radiographic Karla ging 06/10/2024 9:13 AM EDT Narrative 06/10/2024 9:41 AM EDT ?[facility] ?[address] ?[place] [address] ?XRay Report ? Signed ? Patient: Jennifer Palmer ?MR#: [id number] ?? 0 ? : 1960 ?Acct:[id number] ? Age/Sex: 63 / F ?ADM Date: 06/10/24 ? Loc: HO.HHCX ? Attending Dr: Mehul Alexis MD ? Ordering Physician: MEHUL ALEXIS MD ?? Date of Service: 06/10/24 ?? Procedure(s): XR cervical spine 3V ?? Accession Number(s): [id number] ? cc: MEHUL ALEXIS MD ? EXAMINATION: [...] ? DD/ 2 ? TD/TT: 06/10/[address] ? Mill Washer: ? Procedure Note Donmichelleter, Image - 06/10/2024 [place] [address] XRay Report Signed Patient: Axel Palmer#: [id number] 0 : 9Acct:[id number] Age/Sex: 63 / FADM Date: 06/10/24 Loc: HO.HHCX Attending Dr: Mehul Alexis MD Ordering Physician: MEHUL ALEXIS MD Date of Service: 06/10/24 Procedure(s): XR cervical spine 3V Accession Number(s): [id number] cc: MEHUL ALEXIS MD EXAMINATION: XR CERVICAL [...] Brock Lauren MD 06/10/2024 09:39 AM EDT Dictated By: Brock Lundy MD Signed By: <Electronically signed by Brock Maradiaga MDin OV> 06/10/2439 DD/ 2 TD/TT: 06/10/24912 Mill Washer: Mehul Alexis MD IMG XR PROCEDURES Final Result * Influenza B (ID NOW Rapid Molecular) (06/04/2024 9:50 AM EDT) [facility] Influenza B Negative Negative, Indeterminate [facility] Swab 06/04/2024 9:50 AM EDT Kaden Jaime MD POINT OF CARE TEST ENTER/EDIT OR DERABLES Final Result Performing Organization Address City/[facility]/ZIP Co de Phone Number [facility] [address] [place] [phone] * Influenza A (ID NOW Rapid Molecular) (06/04/2024 9:50 AM EDT) [facility] Influenza A Negative Negative, Indeterminate [facility] Swab 06/04/2024 9:50 AM EDT Kaden Jaime MD POINT OF CARE TEST ENTER/EDIT OR DERABLES Final Result Performing Organization Address City/[facility]/ZIP Co de Phone Number [facility] [address] [place] [phone] * POCT Rapid COVID Ag (06/04/2024 9:50 AM EDT) [facility] Rapid COVID Ag Negative Swab 06/04/2024 9:50 AM EDT us Kaden Jaime MD POINT OF CARE TEST ENTER/EDIT OR DERABLES Final Result * POCT rapid strep A manually resulted (06/04/2024 9:50 AM EDT) [facility] Rapid Strep A Screen Negative Negative, None Detected Swab 06/04/2024 9:50 AM EDT us Kaden Jaime MD POINT OF CARE TEST ENTER/EDIT OR DERABLES Final Result * Culture, Throat (06/04/2024 9:50 AM EDT) Throat Structure of anterior portion of neck / Unknown 06/04/2024 9:50 AM EDT 06/04/2024 6:00 PM EDT Comment:Throat Narrative [facility] - 06/05/2024 11:47 AM EDT Streptococcus pyogenes (Grp A) Quant Org ID [id number] Specimen Source: Throat Kaden Jaime MD LAB MICROBIOLOGY - GENERAL ORDER CANDI Final Result [facility] [address] [place] [phone] * POCT fern test, vaginal fluid [...] DETECTION BY PCR NOT DETECTED Not Detect [facility] BACTERIAL VAGINOSIS DETECTION BY PCR NEGATIVE Negative [facility] Comment:The BV organism targ ets [...] DETECTION BY PCR NOT DETECTED Not Detect [facility] Sammie glab krusei PCR NOT DETECTED Not Detect [facility] Swab Vaginal structure / Unknown 05/26/2024 12:37 PM EDT 05/26/2024 4:52 PM EDT us Aledn Cai CNM LAB MICROBIOLOGY - GENERA L ORDERABLES Final Result [facility] [address] [facility] [place] [address] [phone] * XR Hip 2 or 3 Views Left (03/27/2024 11:12 AM EST) Anatomical Region Laterality Modality Lower Extremities, Hip Left Radiograp hic Imaging 03/27/2024 11:1 2 AM EST Narrative 03/30/2024 10:04 AM EST ? [facility] ? [address] ?[place] [address] ?XRay Report ? Signed ? Patient: Jennifer Palmer ?MR#: [id number] ?? 0 ? : 1960 ?Acct:[id number] ? Age/Sex: 63 / F ?ADM Date: 03/27/24 ? Loc: HO.HOSX ? Attending Dr: Aleksandra Culp MD ? Ordering Physician: Aleksandra Chu ?? Date of Service: 03/27/24 ?? Procedure(s): XR hip LT min 2V ?? Accession Number(s): [id number] ? cc: Emy Askew MD; Aleksandra Chu [...] DD/ 1112 ? TD/TT: 03/27/24 1115 ? Mill Washer: ? Procedure Note Donmichelleter, Image - 03/30/2024 [facility] [address] [place] [address] XRay Report Signed Patient: Axel Palmer#: [id number] 0 : 9Acct:[id number] Age/Sex: 63 / FADM Date: 03/27/24 Loc: HO.HOSX Attending Dr: Aleksandra Culp MD Ordering Physician: Aleksandra Chu Date of Service: 03/27/24 Procedure(s): XR hip LT min 2V Accession Number(s): [id number] cc: Emy Askew MD; Aleksandra Chu EXAMINATION: [...] 03/30/24 1002 DD/ 1112 TD/TT: 03/27/24 1115 Mill Washer: [facility] External Provider IMG XR PROCEDURES Edited Result - Final * XR Sacroiliac Joints 1-2 Views (03/27/2024 11:12 AM EST) Anatomical Region Laterality Modality Sacroiliac joint, Pelvis Radiogr aphic Imaging 03/27/2024 11:1 2 AM EST Narrative 03/30/2024 10:29 AM EST ? [facility] ? [address] ?[place] [address] ?XRay Report ? Signed ? Patient: Palmer,Jennifer ?MR#: [id number] ?? 0 ? : 1960 ?Acct:[id number] ? Age/Sex: 63 / F ?ADM Date: 03/27/24 ? Loc: HO.HOSX ? Attending Dr: Aleksandra Culp MD ? Ordering Physician: Aleksandra Chu ?? Date of Service: 03/27/24 ?? Procedure(s): XR sacroiliac joint 1-2V ?? Accession Number(s): [id number] ? cc: Emy Askew MD; Aleksandra Chu [...] DD/ 1112 ? TD/TT: 03/27/24 1115 ? Mill Washer: ? Procedure Note Aniket, Image - 03/30/2024 [facility] [address] [facility] [address] [place] [address] XRay Report Signed Patient: Axel Palmer#: [id number] 0 : 9Acct:[id number] Age/Sex: 63 / FADM Date: 03/27/24 Loc: JAMISON Attending Dr: Aleksandra Culp MD Ordering Physician: Aleksandra Chu Date of Service: 03/27/24 Procedure(s): XR sacroiliac joint 1-2V Accession Number(s): [id number] cc: Emy Askwe MD; Aleksandra Chu EXAMINATION: XR SACROILIAC JOINTS [...] Brock Lauren MD 03/30/2024 10:27 AM EST RP Dictated By: Brock Lundy MD Signed By: <Electronically signed by Brock Maradiaga MDin OV> 03/30/24 1027 DD/ 1112 TD/TT: 03/27/24 1115 Mill Washer: [facility] External Provider IMG XR PROCEDURES Final Result * BI Mammogram Screening Tomosynthesis Bilateral (03/17/2024 1:00 PM EST) Anatomical Region Laterality Modality Breast Bilateral Mammography 03/17/2024 1:00 PM EST Narrative 03/28/2024 10:52 AM EST ? [facility] [place] ? [address] ?[place] [address] ? Mammography Report ? Signed ? Patient: Estela,Jennifer ?MR#: [id number] ?? 0 ? : 1960 ?Acct:[id number] ? Age/Sex: 63 / F ?ADM Date: 01/14/25 ? Loc: HO.MAMMO ? Attending : Emy Goldsmith MD ? Ordering Physician: Emy Askew MD ?Re ?? sults: 1Negative ? Date of Service: 03/17/24 ?Follow Up: 1 Year From Orig ?? inal Mammogram ? Procedure(s): MM tomosynthesis screening BI ?? Accession Number(s): [id number] ? cc: Emy Askew MD ? EXAMINATION: [...] DD/ 1300 ? TD/TT: 03/17/24 1320 ? Mill Washer: ? Procedure Note Donotsilviainterpreter, Image - 03/28/2024 [place] [facility] [address] [place] [address] Mammography Report Signed Patient: Axel Palmer#: [id number] 0 : 9Acct:[id number] Age/Sex: 63 / FADM Date: 03/17/24 Loc: HO.MAMMO Attending Dr: Emy Goldsmith MD Ordering Physician: Emy Askew sults: 1Negative Date of Service: 03/17/24Follow Up: 1 Year From Orig inal Mammogram Procedure(s): MM tomosynthesis screening BI Accession Number(s): [id number] cc: Emy Askew MD EXAMINATION: MM SCREENING [...] 03/28/24 1049 DD/ 1300 TD/TT: 03/17/24 1320 Mill Washer: us Emy Goldsmith MD IMG BI PROCEDURES Final Result * (ABNORMAL) Hemoglobin A1c (12/25/2023 7:08 AM EDT) Hemoglobin A1c 8.2(H) <6.0 % [facility] Comment:Hemoglobin A1C Refer ence Range Adults: 4.8 - 6.0 % Non diabetic: < 6.0 % Goal: < 7.0 %Additional Action Suggested: > 8.0 %Note: Hemoglobin A1c results are invalid for patients with abnormal amounts of HbF. Blood transfusions may impact the HbA1c concentration in the patient sample. Estimated Average Glucose 189 mg/dL [facility] Comment:eAG = Estimated ave rage glucose which is %A1C expressed asaverage glucose, using the formula of the E4C-OkxsjkdArjotxq Glucose study (ADAG), Diabetes Care, Vol.31,#8,Oct. 2007 Blood Venous blood specimen / Unknown 12/25/2023 7:08 AM EDT 12/25/2023 7:09 AM EDT us Emy Goldsmith MD LAB BLOOD ORDERAB LES Final Result Performing Organization Address City/State/[facility] Co de Phone Number [facility] [address] [place] [phone] * (ABNORMAL) Lipid Panel, Standard (12/25/2023 7:08 AM EDT) Triglycerides 232(H) <150 mg/dL [facility] Comment:Desirable Triglyceri de: less than 150 mg/dLBorderline High Triglyceride 150-199 mg/dLHigh Triglyceride: 200-499 mg/dLVery High Triglyceride: greater than or equal to 5OO mg/dL Cholesterol 154 <200 mg/dL [facility] Comment:Desirable Cholestero l: less than 200 mg/dLBorderline High Cholesterol: 200-239 mg/dLHigh Cholesterol: greater than 239 mg/dL LDL Cholesterol Calculated 64 <100 mg/dL [facility] Comment:Desirable LDL: less than 100 mg/dLNear Optimal/Above Optimal LDL: 110- 129 mg/dLBorderline High LDL: 130-159 mg/dLHigh LDL: 160-189 mg/dLVery High LDL: greater than or equal to 190 mg/dL HDL Cholesterol 44 >40 mg/dL [facility] Comment:Desirable HDL: great er than 40 mg/dL Note: This HDL assay may give artificially low results in patients with liver disease. Blood Venous blood specimen / Unknown 12/25/2023 7:08 AM EDT 12/25/2023 7:09 AM EDT us Emy Goldsmith MD LAB BLOOD ORDERAB LES Final Result Performing Organization Address [facility] Co de Phone Number [facility] [address] [place] [phone] * (ABNORMAL) Albumin, Random Urine W/Creatinine (12/25/2023 7:05 AM EDT) Creatinine, Urine 50.21 mg/dL [facility] Microalbumin Urine 78.0 mg/L [facility] Microalbum Creatinine Ratio Ur 155.3(H) <30 ug/mg cr [facility] Comment:Albumin/Creatinine R atio Reference Ranges: Normal: < 30 ug/mg creatinine Microalbuminuria: 30 - 300 ug/mg creatinineClinical Albuminuria: > 300 ug/mg creatinine Urine (Urine, Random) 12/25/2023 7:05 AM EDT 12/25/2023 7:49 AM EDT us Emy Goldsmith MD LAB URINE ORDERAB LES Final Result Performing Organization Address [facility]/ZIP Co de Phone Number [facility] [address] [place] [phone] * HPV mRNA E6/E7 w/Reflex to HPV Genotypes 16, 18/45 (05/27/2023 10:50 AM EDT) HPV nRNA E6/E7 Not Detected Not Detected [facility] Comment:Methodology: Transcr iption-Mediated AmplificationThis assay detects E6/E7 viral messenger RNA (mRNA) from 14high-risk HPV types (16,18,31,33,35,39,45,51,52,56,58,59,66,68).Cervical sources are required for HPV testing.If a vaginal source from a patient who has had atotal hysterectomy with removal of cervix wassubmitted, please contact the testing laboratoryfor alternative testing options.For additional information, please refer tohttp://education.[employer]/faq/JZO391u6(This link if provided for information/educational purposes only.)THIS TEST WAS PERFORMED AT:[facility] [place] [phone] CAMARENA MD HPV mRNA E6/E7 [facility] HPV 16 RNA [facility] HPV 18/45 RNA [facility] 05/27/2023 10:5 0 AM EDT 05/28/2023 11:50 AM EDT us Alden Cai [facility] CYTOLOGY ORDERABLES F inal Result [facility] [address] [place] [phone] * Pap Smear (05/27/2023 10:50 AM EDT) Swab Cervix uteri structure / Unknown 05/27/2023 10:50 AM EDT 05/28/2023 11:50 AM EDT Narrative [facility] - 06/09/2023 5:49 PM EDT ----- ------- Name: Jennifer Palmer ?Age/Sex: 62/F ? : 1960 Unit#: [id number] ?? Attend Dr: ALDEN CAI CNM ?Re05/27/23 ?Status: DEP REF ? Location: HO.HHCLNP ? Disch: ? ----- ------- SPEC : [id number] ? RECD: 05/28/23-1150 ? STATUS: ??SOUT ? REQ NUM: [id number] ? PRANAY: 05/27/23-1050 ? SUBM DR: ALDEN CAI CNM ? ENTERED: ??05/28/23-4417 ?SP TYPE: Pap Smr ?OTHR DR: ? [...] 66, 68) ? HPV testing performed by [employer], [place], [place]. ??See reference laboratory ?? portion of the EMR for entire report. ?Clinical Information LMP: Postmenopausal Previous PAP test: Unknown date/findings ? Material Received ?? ThinPrep-Vaginal/Cervical ----- ------- Signed (signature on file) Esther A Nenita 06/09/231748 ? ----- ------- ? END OF REPORT ? us Alden Cai [facility] CYTOLOGY ORDERABLES F inal Result [facility] [address] [place] [address] [phone] * Hm Colonoscopy (05/09/2023 6:56 PM EST) Historical Provider HEALTH MAINTENANCE Final Result * Hepatitis C Antibody Reflex (10/04/2022 9:42 AM EDT) Hepatitis C Antibody Nonreactive Nonreactive [facility] Comment:Antibodies to HCV no t detected; does not exclude early acuteHCV infection. 10/04/2022 9:42 AM EDT 10/04/2022 9:43 AM EDT Emy Goldsmith MD LAB BLOOD ORDERAB LES Final Result [facility] [address] [place] [phone] from Last 3 Months or Most Recently Relevant to Health Maintenance Insurance [facility] OPTIONS (HMO D-SNP) [place] [id number] DENTAL-[facility] MED[facility] STAND ADULT Care Teams Network Coordinator Relationship Specialty Start Date End Date Emy Askew MD [address] [place] [phone] PCP - General Internal Medicine 07/25/22
--- OUTSIDE RECORDS SUMMARY | 2024-06-21 | XMS_ITS | Encounter Summary ---
Author Organization [employer] Address [address] [place] [address] [address] [place] [address] Care Team Providers Care J2Ee Consultant Name Role Phone Emy Askew MD Primary Care Pro vider Reason for Visit * Reason Comments Med Refill Encounter Details Date Type Department Care Team ([facility] st Contact Info) Description 02/09/2023 Refill [facility] [address] [place] [address] Emy Askew MD [address] [place] [address] Social History Tobacco Use Types Packs/Day Years [...] 07/16/2024 11:15 AM EDT Office Visit [facility] [address] [place] [phone] Emy Askew MD [address] [place] [phone] documented as of this encounter Visit Diagnoses Not on filedocumented in this encounter Additional Health Concerns Assessment Noted Time PHQ-9 Depression Total Score: 16 023 10:16 AM EDT documented as of this encounter Care Teams J2Ee Consultant Relationship Specialty Start Date End Date Emy Askew MD [address] [place] [phone] PCP - General Internal Medicine 07/25/22 documented as of this encounter
--- NOTE | 2024-06-21 00:17 | ED.GENADULT ---
HPI - General Adult General Chief complaint: General Medical Stated complaint: high blood pressure Time Seen by Provider: 06/20/24 23:30 Source: patient, RN notes reviewed and old records reviewed Mode of arrival: ambulatory Limitations: no limitations History of Present Illness ED Provider: Alejo HPI narrative: 63-year-old female with a past medical history significant for hyperparathyroidism, hemorrhoids, type 2 diabetes, hypertension, sleep apnea, COPD presents for evaluation of vomiting. Patient reports that she woke up this morning. She ate breakfast then immediately vomited. She reports vomiting 4 times today she endorses a headache, denies chest pain, cough, shortness of breath. She reports left upper abdominal pain Denies any history abdominal surgeries She attempted to take Pepto-Bismol without any improvement No other complaints or concerns Related Data Home Medications ?Medication ?Instructions ?Recorded ?Confirmed clonidine HCl 0.1 mg tablet 0.1 mg PO BID 12/08/19 06/16/24 diltiazem HCl 360 mg capsule,24 360 mg PO DAILY 12/08/19 06/16/24 hr,extended release furosemide 20 mg tablet 20 mg PO DAILY 12/08/19 06/16/24 aspirin 81 mg tablet,delayed 81 mg PO DAILY 05/12/20 06/16/24 release docusate sodium 100 mg capsule 100 mg PO DAILY 05/12/20 06/16/24 (DOK) clonazepam 0.5 mg tablet 0.5 mg PO DAILY PRN Anxiety 10/29/22 06/16/24 leflunomide 20 mg tablet 20 mg PO DAILY 10/29/22 06/16/24 loratadine 10 mg tablet 10 mg PO DAILY PRN allergies 10/29/22 06/16/24 melatonin 5 mg tablet 10 mg PO BEDTIME PRN Insomnia 10/29/22 06/16/24 sennosides 8.6 mg tablet (senna) 17.2 mg PO DAILY PRN constipation 10/29/22 06/16/24 atorvastatin 20 mg tablet 20 mg PO BEDTIME 04/30/23 06/16/24 calcium carbonate 600 mg PO QAM 04/30/23 06/16/24 carvedilol 25 mg tablet 25 mg PO BID 04/30/23 06/16/24 cevimeline 30 mg capsule 1 cap PO QAM 04/30/23 06/16/24 duloxetine 60 mg capsule,delayed 60 mg PO BEDTIME 04/30/23 06/16/24 release folic acid 1 mg tablet 1 mg PO DAILY 04/30/23 06/16/24 gabapentin 300 mg capsule 300 mg PO BID 04/30/23 06/16/24 losartan 100 mg tablet 100 mg PO DAILY 02/10/24 06/16/24 Previous Rx's ?Medication ?Instructions ?Recorded blood glucose control high and low #1 ea 03/28/20 solution (FreeStyle Control solution) 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 meter (FreeStyle #1 ea 09/09/20 Lite Meter kit) blood sugar diagnostic (FreeStyle #150 ea 02/10/21 Lite Strips) lancets 33 gauge (TRUEplus Lancets) #120 ea 06/20/21 naproxen 500 mg tablet 500 mg PO BID PRN pain #14 tabs 07/12/21 cholecalciferol (vitamin D3) 50 50 mcg PO DAILY #90 caps 12/12/21 mcg (2,000 unit) capsule hydrocortisone 2.5 % topical cream 1 appl TN BEDTIME PRN hemorrhoids 01/15/23 with perineal applicator #30 grams (Proctosol HC) dapagliflozin propanediol 10 mg 10 mg PO DAILY #30 tabs 02/10/24 tablet (Farxiga) semaglutide 2 mg/dose (8 mg/3 mL) 2 mg (0.75 mL) subcut QWEEK #3 mL 06/16/24 subcutaneous pen injector (Ozempic) ondansetron 4 mg disintegrating 4 mg PO Q8H PRN nausea and 06/21/24 tablet vomiting #20 tabs Allergies Allergy/AdvReac Type Severity Reaction Status Date / Time codeine [Codeine] Allergy Mild BURNING IN Verified 06/20/24 23:18 CHEST, chest pain sulfamethoxazole Allergy Mild ITCH,RASH Verified 06/20/24 23:18 [From Bactrim] Review of Systems Constitutional: Constitutional: Denies body ache(s), Denies chills, Denies fever(s) and Denies headache(s) Eyes: Eyes: Denies blurry vision ENT: Denies dysphagia, Denies vertigo, Denies dizziness, Denies dry mouth and Denies headache(s) Cardiovascular: Cardiovascular: Denies chest pain and Denies dyspnea Respiratory: Respiratory: Denies cough and Denies dyspnea Gastrointestinal: Gastrointestinal: Reports abdominal pain, Denies hematochezia, Denies change in bowel habits, Denies GI cramping, Denies dysphagia and Reports nausea Musculoskeletal: Musculoskeletal: Denies back pain Integumentary/Breasts: Skin/Breast: Denies rash Neurologic: Denies vertigo, Denies dizziness and Denies headache(s) Psychiatric: Psychiatric: Denies anxiety and Denies suicidal ideation REPLACED BY [facility] Past Medical History Medical History (Updated 06/21/24 @ 00:21 by Gaurav Dhillon) Hyperparathyroidism DM2 (diabetes mellitus, type 2) Vitamin D deficiency 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 rheumatoid arthritis USP (current) use of insulin SOY (obstructive sleep apnea) COPD (chronic obstructive pulmonary disease) Sicca syndrome Constipation Alopecia Sjogrens syndrome Osteoarthritis Rheumatoid arthritis Fibromyalgia Back pain Difficulty swallowing GERD (gastroesophageal reflux disease) Depression Asthma Elevated cholesterol HTN (hypertension) Surgical History History of laryngoscopy Hx of hemorrhoidectomy History of bladder suspension procedure Hx of dilation and curettage Hx of tubal ligation History of repair of left rotator cuff Hx of colonoscopy History of esophagogastroduodenoscopy (EGD) Family History Family History Father Cancer Mother Heart disease Diabetes Social History Social History Household Members: Children and Other Household Members Other:: daughter, grandkids Are you a primary transition of care specialist to a significant other at home: No Do you presently have visiting nurse or other home services: No Alcohol intake: never Patient Tobacco Use Status: Never used Tobacco Smoked in Last 30 Days: No e-Cigarette/Vaping Use: Never Used Second Hand Smoke Exposure: No Use of substances other than those prescribed or required for medical reasons: No Advance Directives: No Advance Directives Information Provided: Yes Do you have a plan to hurt others: No Plan 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al status: disabled 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 Physical Exam ED Vital Signs: Vital Signs - 24 hr 06/20/24 23:16 06/21/24 00:24 Temperature 98.7 F 98.7 F Pulse Rate 102 H 90 Respiratory Rate 16 19 Blood Pressure 158/99 H 166/94 H Pulse Oximetry 98 95 Oxygen Delivery Method Room Air Room Air BMI result Body Mass Index 26.3 Const General: healthy appearing, comfortable, no acute distress, alert and awake Nutritional Appearance: well nourished Orientation/consciousness: patient oriented x3 HENMT Head: Yes normocephalic and Yes atraumatic Eyes Eyelids: Yes eyelids normal Conjunctivae: conjunctivae normal Sclerae: sclerae normal Corneas: corneas normal Pupils: Equal, round and reactive pupils present EOM: EOMs intact bilaterally Neck Neck: Yes full ROM Resp Effort & Inspection: normal respiratory effort, able to speak in complete sentences, no audible wheezes and not labored Auscultation: clear to auscultation bilaterally Cardio Rate: regular rate Rhythm: regular rhythm GI Inspection: No distended Palpation (GI): Soft to palpation, not firm, nontender, no guarding and not rigid Skin General skin exam: elasticity normal Neuro General: patient oriented x3 Cranial nerves: Yes Equal, round and reactive pupils present and Yes Bilaterally intact EOM present Cognition (Neuro): normal cognition Extrem Other: Moving all extremities well without any obvious deformities Course Reevaluation(s) Reevaluation #1: Patient reports feeling better after IV fluids and Zofran only, her pain has resolved and she was not receive any pain medication. Her labs are quite reassuring. We will discharge the patient with Zofran for likely viral enteritis Time: 02:04 Medications Administered Discontinued Medications Generic Name Dose Route Start Last Admin Trade Name Freq PRN Reason Stop Dose Admin Sodium Chloride 1,000 mls @ 999 mls/hr 06/20/24 23:45 06/21/24 01:58 Ns IV 06/21/24 00:45 Infused .Q1H1M GEORGE Infusion Ondansetron HCl 4 mg 06/20/24 23:36 06/21/24 00:22 Ondansetron Hcl 4 Mg/2 Ml Vial IVPUSH 06/20/24 23:37 4 mg ONCE ONE Administration Medical Decision Making Medical Decision Making MDM Narrative: 63-year-old female with a past medical history as above presents for evaluation of epigastric abdominal pain with nausea and vomiting that started this morning. Her exam is quite reassuring, she has minimal left upper quadrant tenderness. No right upper quadrant tenderness, no right lower abdominal tenderness. Given the reassuring exam, less likely surgical abdomen. Symptoms may be related to a viral gastritis or gastroenteritis. Flu swabs pending. She was a mild leukocytosis to 12.4 which could be reactive to vomiting and less likely infectious process. Chemistries are within normal limits including electrolytes, renal function and LFTs. EKG shows normal sinus rhythm with a rate of [address] segment elevation ND. denies chest pain Differential Diagnosis Differential Diagnoses: The differential diagnosis associated with the presentation includes Influenza COVID-19 Abdominal pain Peptic ulcer disease Biliary colic less likely Viral syndrome Gastroenteritis Gastritis Lab Data MDM Lab Attestation statement: I reviewed the patient's lab results. As above 06/20/24 23:25 06/20/24 23:25 Labs: Lab Results 06/20/24 Range/Units 23:25 WBC 12.4 H (4.8-10.8) X10*3/uL RBC 4.65 (4.20-5.50) X10*6/uL Hgb 13.7 (12.0-16.0) g/dl Hct 40.4 (37.0-47.0) % MCV 86.9 (80.0-98.0) fL MCH 29.5 (27.0-33.0) pg MCHC 33.9 (31.0-35.0) g/dl RDW 14.6 (11.0-16.0) % Plt Count 326 (160-400) X10*3/uL MPV 9.3 L (9.4-12.3) fL Immature Gran % (Auto) 0.2 (0.0-0.4) % Neut % (Auto) 66.8 (45-73) % Lymph % (Auto) 17.3 L (20-40) % Morrison % (Auto) 9.0 (2-11) % Eos % (Auto) 6.2 H (0-4) % Baso % (Auto) 0.5 (0-2) % Lymph # (Auto) 2.2 (1.2-4.9) X10*3/uL Morrison # (Auto) 1.1 (0.1-1.2) X10*3/uL Eos # (Auto) 0.8 H (0.0-0.4) X10*3/uL Baso # (Auto) 0.1 (0.0-0.2) X10*3/uL Abs Immat Gran (auto) 0.03 (0.00-0.03) X10*3/uL Absolute Neuts (auto) 8.3 (2.0-8.3) x10*3/uL Absolute Nucleated RBC 0.000 (0.0-0.012) X10*3/uL Nucleated RBC % (auto) 0.0 (0.0-0.2) /100WBC Sodium 141 (135-145) mmol/L Potassium 3.3 (3.3-5.1) mmol/L Chloride 106 (96-108) mmol/L Carbon Dioxide 24 (22-29) mmol/L Anion Gap 14 (12-20) BUN 13 (9-16) mg/dL Creatinine 0.72 (0.5-1.4) mg/dL Estim Creat Clear Calc 66.2 Estimated GFR > 60 Random Glucose 141 H (60-115) mg/dL Calcium 9.9 D (8.4-10.2) mg/dL Total Bilirubin 0.5 (0.0-1.0) mg/dL AST 22 (5-31) U/L ALT 11 (0-31) U/L Alkaline Phosphatase 112 (39-117) U/L Total Protein 7.8 (6.5-8.0) g/dL Albumin 4.0 (3.5-5.0) g/dL Lipase 26 (8-78) U/L Influenza Type A (PCR) NEGATIVE (Negative) Influenza Type B (PCR) NEGATIVE (Negative) RSV RNA Qual (PCR) NEGATIVE (Negative) SARS-CoV-2 RNA (RT-PCR) NEGATIVE (Negative) Tests considered The following testing was considered but not selected: considered ct abdomen and pelvis Discharge Plan Discharge Clinical Impression: Vomiting Patient Disposition: Home, Self-Care Instructions: Acute Nausea and Vomiting (ED) Additional Instructions: Your workup in the ER today was reassuring. You should return to the ER for any new or worsening symptoms Take Zofran for nausea and vomiting. Drink lots of fluids, small sips at a time Follow-up with your primary doctor Prescriptions: New ondansetron 4 mg tablet,disintegrating 4 mg PO Q8H PRN (Reason: nausea and vomiting) Qty: 20 0RF No Action (DME) 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 meter [FreeStyle Lite Meter] Kit See Rx Instructions miscellaneous .MEDSUPPLY Qty: 1 0RF Rx Instructions: As directed (DME) FreeStyle Lite Strips Strip See Rx Instructions .ROUTE .MEDSUPPLY Qty: 150 11RF Rx Instructions: 4 times a day (DME) lancets [TRUEplus Lancets] 33 gauge misc See Rx Instructions .ROUTE .MEDSUPPLY Qty: 120 11RF Rx Instructions: 4 times a day cholecalciferol (vitamin D3) 50 mcg (2,000 unit) capsule 50 mcg PO DAILY Qty: 90 0RF diltiazem HCl 360 mg Capsule,Extended Release 24 Hr 360 mg PO DAILY clonidine HCl 0.1 mg Tablet 0.1 mg PO BID furosemide 20 mg Tablet 20 mg PO DAILY aspirin 81 mg tablet,delayed release (DR/EC) 81 mg PO DAILY docusate sodium [DOK] 100 mg capsule 100 mg PO DAILY naproxen 500 mg tablet 500 mg PO BID PRN (Reason: pain) Qty: 14 0RF (DME) FreeStyle Control Solution See Rx Instructions .ROUTE .MEDSUPPLY Qty: 1 2RF Rx Instructions: Twice a month sennosides [senna] 8.6 mg tablet 17.2 mg PO DAILY PRN (Reason: constipation) melatonin 5 mg tablet 10 mg PO BEDTIME PRN (Reason: Insomnia) clonazepam 0.5 mg tablet 0.5 mg PO DAILY PRN (Reason: Anxiety) leflunomide 20 mg tablet 20 mg PO DAILY loratadine 10 mg tablet 10 mg PO DAILY PRN (Reason: allergies) gabapentin 300 mg capsule 300 mg PO BID duloxetine 60 mg capsule,delayed release(DR/EC) 60 mg PO BEDTIME cevimeline 30 mg capsule 1 cap PO QAM calcium carbonate 600 mg calcium (1,500 mg) tablet 600 mg PO QAM atorvastatin 20 mg tablet 20 mg PO BEDTIME carvedilol 25 mg tablet 25 mg PO BID folic acid 1 mg tablet 1 mg PO DAILY Ozempic 2 mg/dose (8 mg/3 mL) pen injector 2 mg subcut QWEEK Qty: 3 7RF hydrocortisone [Proctosol HC] 2.5 % cream with perineal applicator 1 appl TN BEDTIME PRN (Reason: hemorrhoids) Qty: 30 3RF losartan 100 mg tablet 100 mg PO DAILY dapagliflozin propanediol [Farxiga] 10 mg tablet 10 mg PO DAILY Qty: 30 8RF Print Language: Turkish
[2024-06-21] MEDS: ondansetron HCL 4 MG/2 ML VIAL IVPUSH (00:22)
[2024-06-21] MEDS: 0.9 % Sodium Chloride 1,000 ML 999 ML IV (00:23)
[2024-06-21 00:24] VITALS: BP 166/94; PULSE 90; RESP 19; TEMP 37.1; O2SAT 95
[2024-06-21 01:56] LABS: Influenza A PCR NEGATIVE (Negative); Influenza B PCR NEGATIVE (Negative); Resp Syncy Virus RNA Qual PCR NEGATIVE (Negative); SARS COV2 PCR INHOUSE NEGATIVE (Negative)
[2024-06-21 02:13] VITALS: BP 152/90; PULSE 84; RESP 16; TEMP 36.7; O2SAT 97
[2024-06-21 02:21] VITALS: BP 152/90; PULSE 84; RESP 16; TEMP 36.7; O2SAT 97
== END 2024-06-21 02:22 | disposition home or self-care (01) ==
PROVIDERS: Emergency Provider Emergency Medicine; PCP Student in an Organized Health Care Education/Training Program
DX: R11.10 Vomiting, unspecified (principal); R10.9 Unspecified abdominal pain; J44.9 Chronic obstructive pulmonary disease, unspecified; R51.9 Headache, unspecified; Z79.899 Other long term (current) drug therapy; Z03.818 Encounter for observation for suspected exposure to other biological agents ruled out
CPT/HCPCS: 0241U; 80053; 83690; 85025; 93005; 96361; 96374; 99284; J2405

== ENCOUNTER → 2024-06-20 23:36 | Outpatient (BNV) | payer OTHER, SELFPAY | PROVIDERS: Emergency Provider Emergency Medicine; PCP Student in an Organized Health Care Education/Training Program; Visit Provider Internal Medicine Cardiovascular Disease | DX: R94.31 Abnormal electrocardiogram [ECG] [EKG] (principal); R10.9 Unspecified abdominal pain | CPT/HCPCS: 93010 ==

== ENCOUNTER 2024-06-26 13:06 | Outpatient (REF) | payer OTHER, SELFPAY ==
--- NOTE | ~2024-06-26 | CT_ITS ---
EXAMINATION: CT HEAD WITHOUT IV CONTRAST HISTORY: Onset last night of severe right-sided headache.. TECHNIQUE: Unenhanced helical CT of the head was performed per standard departmental protocol. Coronal and sagittal reformats of the head were also evaluated. One or more of the following techniques was used for dose reduction: Automated exposure control, adjustment of the mA and/or kV according to patient size, use of iterative reconstruction technique. DLP: 687 mGy-cm COMPARISON: Comparison is made with the prior examination dated 04/11/2022. FINDINGS: BRAIN: Again seen are periventricular and subcortical white matter hypodensities which are nonspecific, but often seen in the setting of small vessel ischemic disease. The brain parenchyma is otherwise unremarkable demonstrating normal alaniz/white differentiation. The ventricular system is normal in size and configuration. There is no mass effect or midline shift. No intra- or extra-axial fluid collections are identified. SINUSES: The visualized paranasal sinuses are clear. The mastoid air cells and middle ear cavities are well pneumatized. ORBITS: The visualized orbits are unremarkable. BONES/SOFT TISSUES: The extracranial soft tissues are unremarkable. The calvarium is intact. No suspicious lytic or sclerotic lesions. CT/CT head/brain wo IV con IMPRESSION: No acute intracranial abnormality. Electronically signed by: Cm Starkey MD 06/26/2024 02:03 PM EDT
--- OUTSIDE RECORDS SUMMARY | 2024-06-26 13:49 | XMS_ITS | Encounter Summary ---
Author Organization [employer] Address [address] Formerly [facility] [facility] [address] 7t [place] [address] Care Team Providers Care Copper Miner Blasting Name Role Phone Emy Askew MD Primary Care Pro vider Encounter Details Date Type Department Care Team (Late st Contact Info) Description 08/07/2023 Orders Only [facility] [address] [place] [address] Valeria Armas FNP [address] [place] [address] Social History Tobacco Use Types Packs/Day Years [...] Description 07/16/2024 11:15 AM EDT Office Visit [facility] MEDICINE [address] [place] [address] Emy Askew MD [address] [place] [address] documented as of this encounter Visit Diagnoses Not on filedocumented in this encounter Additional Health Concerns Assessment Noted Time PHQ-9 Depression Total Score: 16 023 10:16 AM EDT documented as of this encounter Care Teams Copper Miner Blasting Relationship Specialty Start Date End Date Emy Askew MD [address] [place] [address] PCP - General Internal Medicine 07/25/22 documented as of this encounter
--- OUTSIDE RECORDS SUMMARY | 2024-06-26 13:50 | XMS_ITS | Encounter Summary ---
Author Organization [email or web address] [facility] Address [address] [place] [address] 7t [place] [address] Care Team Providers Care Duck Farmer Name Role Phone [facility] Primary Care Provider [phone] Emy Askew MD Primary Care Pro vider Reason for Visit * Reason Onset Date Comments VISION 03/13/2022 Encounter Details Date Type Department Care Team ([facility] st Contact Info) Description 03/13/2022 Telephone [facility] MEDICINE [address] [place] [address] [facility] [address] [place] [address] VISION Social History Tobacco Use Types Packs/Day [...] center regarding an eye exam. Please contact [phone] documented in this encounter Plan of Treatment Upcoming Encounters Date Type Department Care Team (Late st Contact Info) Description 07/16/2024 11:15 AM EDT Office Visit [facility] MEDICINE [address] [place] [address] Emy Askew MD [address] [place] [address] documented as of this encounter Visit Diagnoses Diagnosis Diabetes 1.5, managed as type 2 (CMS/HCC) documented in this encounter Care Teams Duck Farmer Relationship Specialty Start Date End Date Kenya Sol FNP [address] [place] [address] PCP - General Family Medicine 01/22/22 07/24/22 Emy Askew MD [address] [place] [address] PCP - General Internal Medicine 07/25/22 documented as of this encounter
--- OUTSIDE RECORDS SUMMARY | 2024-06-26 13:50 | XMS_ITS | Encounter Summary ---
Author Organization [employer] [facility] Address [address] [place] [address] 7t [place] [address] Care Team Providers Care Digital Experience Manager Name Role Phone [facility] Primary Care Provider [phone] Emy Askew MD Primary Care Pro vider Reason for Visit * Reason Onset Date Comments Med Refill 05/11/2022 Encounter Details Date Type Department Care Team (Late st Contact Info) Description 05/11/2022 Telephone [facility] MEDICINE 230 [place] [address] [facility] 230 [place], [place] [phone] Med Refill Social History Tobacco Use Types [...] has lost the device. Please sent to [facility] [place], [place] - [address] [place] [address] documented in this encounter Plan of Treatment Upcoming Encounters Date Type Department Care Team ([facility] st Contact Info) Description 07/16/2024 11:15 AM EDT Office Visit [facility] MEDICINE [address] [place] [address] Emy Askew MD [address] [place] [address] documented as of this encounter Visit Diagnoses Not on filedocumented in this encounter Care Teams Digital Experience Manager Relationship Specialty Start Date End Date [place] FNP [address] [place] [address] PCP - General Family Medicine 01/22/22 07/24/22 Emy Askew MD [address] [place] [address] PCP - General Internal Medicine 07/25/22 documented as of this encounter
--- OUTSIDE RECORDS SUMMARY | 2024-06-26 13:50 | XMS_ITS | Data Portability ---
Author Organization [employer] [facility] Address [address] [place] [address] Care Team Providers Care Cad Design Engineer Name Role Phone [facility] OTHER [phone] Assessment Encounter Date Assessment Date Assessment LastModified by Organization Details LastModified Time 04/13/2024 04/13/2024 As noted, we were called to see this patient regarding concerns of URI symptoms. Evaluation in the field was performed by my ship's officer colleague, as noted above, I provided [...] QL IA, respiratory specimen 2024 025 [email or web address] [facility], [address] [place] [address], [phone] 14:42:18 rapid flu (A+B) 2024 025 [email or web address] [facility], [address] [place] [address], [phone] 5 14:42:21 Referral None recorded. Procedures None [...] Name and Address Organization Details Recorded Time 78500 codeine medicatio n Not available Not available Not available 04/13/2024 2670 RxNorm Not Available [facility] 09:12:08 33211 Bactrim medicatio n Not available Not available Not available 04/13/2024 07060 9 RxNorm Not Available [facility] - production 5 09:12:08 40659 sulfameth oxazole medicatio n Not available Not available Not available 04/13/2024 78545 RxNorm Not Available [facility] - production 5 09:12:08 57652 trimethop rim medicatio n Not available Not available Not available 04/13/2024 71728 RxNorm Not Available [facility] 09:12:08 Medications Name [...] SNOMED-CT Code Diagnosis ICD10 Code Diagnosis Note [id number] Sebastian Vanessa MD Main - [facility] [address] [place] [address] 04/13/2024 14:39:43 04/13/2024 21:52:34 Viral upper respiratory tract infection 900749759 J06.9 Health Concerns Section Related Observation LastModified by Organization Detai ls LastModified Time None Recorded Concern Status LastModified by Organization Details LastModified Time None Recorded Advance Directives Directive None Recorded Payers Encounter Date Sequence Insurance Name Policy Number Policy Mendez Covered Member ID Mendez Member ID Guarantor Name 04/13/2024 1 [facility] - DOS ON OR AFTER 2022 - DUAL ELIGIBLE - DETENTION OPTIONS AND ONE CARE (MEDICARE REPLACEMENT/ADV ANTAGE - HMO) Jennifer Gu [id number] Jennifer Gu Notes Date Note Type Note [...] at 04/13/2024 - 09:12 Comments: HPI reviewed 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 Address: [address] [place] [address], Revenue Specialist: Vinny Delgadillo MD CLIA No.: [id number] [employer] POC Test Results from Emanuel Paige - ALS Rapid influenza antigen (14:32:34) Flu: - Rapid COVID antigen (14:32:35) COVID: - ...................... ...................... ...................... ...................... ...................... ...................... ......... [employer] Note From Emanuel Paige: Dispatch to the [...] negative, rapid flu test positive negative. [facility] consulted. Red flags discussed. All times are approximate. ...................... ...................... ...................... ...................... ...................... ...................... ......... [facility] Consulted: Sebastian Vanessa ...................... ...................... ...................... ...................... ...................... ...................... ......... Disposition: Fulfilled Sebastian Vanessa MD [address] [place] [address],[address], [place], [address], [employer] [facility] 04/13/2024 15:34:43 OBGyn Episode No OBEpisode recorded.
--- OUTSIDE RECORDS SUMMARY | 2024-06-26 13:50 | XMS_ITS | Encounter Summary ---
Author Organization [employer] Address [address] [place] [address] 7 [place] [address] Care Team Providers Care Patient Manager Name Role Phone Emy Askew MD Primary Care Pro vider Reason for Visit * Reason Comments Med Refill Encounter Details Date Type Department Care Team ([facility] Contact Info) Description 02/14/2024 Refill [facility] MEDICINE [address] [place] [address] Emy Askew MD 230 [place] [address] Social History Tobacco Use Types Packs/Day Years [...] EDT Office Visit [facility] MEDICINE [address] [place] [address] [phone] Emy Askew MD [address] [place] [address] documented as of this encounter Visit Diagnoses Not on filedocumented in this encounter Additional Health Concerns Assessment Noted Time PHQ-9 Depression Total Score: 10 024 2:37 PM EDT documented as of this encounter Care Teams Patient Manager Relationship Specialty Start Date End Date Emy Askew MD [address] [place] [address] [phone] PCP - General Internal Medicine 07/25/22 documented as of this encounter
--- OUTSIDE RECORDS SUMMARY | 2024-06-26 13:50 | XMS_ITS | Encounter Summary ---
Author Organization [employer] [facility] Address [address] [place] [address] [facility] [place] [address] Care Team Providers Care Magneto Repairer Name Role Phone Cyn Bosch MD Primary Care Provider Kenya Delong [facility] Primary Care Provider [phone] Emy Askew MD Primary Care Pro vider Encounter Details Date Type Department Care Team (Latest Contact Info) Description 09/30/2018 Abstract [facility] CONVERSIONS Dental, Provider, DDS Social History [...] 11:15 AM EDT Office Visit [facility] MEDICINE 230 [place] [address] Emy Askew MD 230 [place], [place] [phone] documented as of this encounter Visit Diagnoses Not on filedocumented in this encounter Care Teams Magneto Repairer Relationship Specialty Start Date End Date Cyn Bosch MD PCP - General Family Medicine 08/20/19 01/21/22 Kenya Sol FNP 230 [place] [address] PCP - General Family Medicine 01/22/22 07/24/22 Emy Askew MD [address] [place] [address] [place] [address] PCP - General Internal Medicine 07/25/22 documented as of this encounter
--- OUTSIDE RECORDS SUMMARY | 2024-06-26 13:50 | XMS_ITS | Encounter Summary ---
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 Hold am of surgery lasix,amytriptiline,lisinopril ??.HoldASA 5 days prior procedure and avoid NSAIDS 7 days prior procedure. Thanks documented in this encounter Plan of Treatment Upcoming Encounters Date Type Department Care Team (Late st Contact Info) Description 07/16/2024 11:15 AM EDT Office Visit [facility] MEDICINE [address] [place] [address] Emy Askew MD [address] [place] [address] documented as of this encounter Visit Diagnoses Not on filedocumented in this encounter Additional Health Concerns Assessment Noted Time PHQ-9 Depression Total Score: 16 023 10:16 AM EDT documented as of this encounter Care Teams Data Migration Consultant Relationship Specialty Start Date End Date Emy Askew MD [address] [place] [address] PCP - General Internal Medicine 07/25/22 documented as of this encounter
--- OUTSIDE RECORDS SUMMARY | 2024-06-26 13:50 | XMS_ITS | Encounter Summary ---
Author Organization [employer] [facility] Address [address] [place] [address] [facility] [place] [address] Care Team Providers Care Director Athletic Name Role Phone Cyn Bosch MD Primary Care Provider Kenya Delong [facility] Primary Care Provider [phone] Emy Askew MD Primary Care Pro vider Encounter Details Date Type Department Care Team (Latest Contact Info) Description 10/26/2021 Abstract [facility] CONVERSIONS Dental, Provider, DDS Social History Tobacco [...] Office Visit [facility] MEDICINE 230 [place] [address] Emy Askew MD 230 [place], [place] [phone] documented as of this encounter Visit Diagnoses Not on filedocumented in this encounter Care Teams Director Athletic Relationship Specialty Start Date End Date Cyn Bosch MD PCP - General Family Medicine 08/20/19 01/21/22 Kenya Sol FNP [address] [place] [address] PCP - General Family Medicine 01/22/22 07/24/22 Emy Askew MD [address] [place] [address] PCP - General Internal Medicine 07/25/22 documented as of this encounter
--- OUTSIDE RECORDS SUMMARY | 2024-06-26 13:50 | XMS_ITS | Data Portability ---
Author Organization [facility] Address [address] [place] [address] Assessment No assessment recorded. Plan of Treatment Reminders Order Date Submit Date Provider Last Modified By Organization Details Last Modified Time Details Appointments None recorded. Lab None recorded. Referral None recorded. Procedures None recorded. Surgeries None recorded. Imaging [place], modified barium swallow study [address] [place] [address] Diagnosit Imaging Dept, [address] [place] [address], [address], 5 11:51:40 Medication Orders None recorded. Patient TargetsNo targets recorded. Patient InstructionsNo instructions recorded. Reason for Referral None Reported. Problems Name Problem SNOMED Code Status Onset Date Resolution Date Notes Provider Name and Address Organization Details Recorded Time Dysphagia 29669345 Active 2018 Other dysphagia; Note: Date Diagnosed: 05/13/2018 9:47 AM (R13.19) Not Available [facility] 4 02:27:43 Disturban ce of salivary secretion 18338640 Active 2018 Xerostomia ; Note: Date Diagnosed: 05/13/2018 9:47 AM (K11.7) Not Available [facility] 4 02:27:54 Dysphonia 83712286 Active 2017 Hoarseness ; Note: Date Diagnosed: 02/17/2018 9:52 AM (R49.0) Not Available [facility] 4 02:27:44 Chronic sialadeni tis 209669145 Active 2016 Chronic sialoadeni tis; Note: Date Diagnosed: 07/04/2016 2:17 PM (K11.23) Not Available [facility] 4 02:27:48 Sj? ? 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 Diseases of the salivary glands: Hypertroph y; CMS Risk: moderate risk CMS Treatment: establishe d problem (to examiner): stable or improved N ote: Date Diagnosed: 12/30/2013 2:35 PM (527.1) Not Available [facility] 4 02:27:37 Bilateral hearing loss 44348916 Active 2018 Other specified hearing loss, bilateral; Note: Date Diagnosed: 08/12/2018 10:01 AM (H91.8X3) Not Available [facility] 4 02:27:41 Oropharyn geal dysphagia 15079601 Active 2024 UMESH DIAZ MD [address] [place] [address], [phone] , [facility] 5 13:35:47 Problem Notes None recorded. Procedures Surgical History Date Name Laterality Status Provider Name and Address Organization Details Recorded Time 03/13/2024 FFL_RE completed UMESH DIAZ MD [address] [place] [address], [phone], [facility] 03/13/2024 13:36:13 Imaging Results None recorded. Procedure Notes None recorded. Medical Equipment None Reported. Allergies Allergen ID Allergen Name Allergen Category Reaction Reaction Severity Criticality Documentation Date Start Date Code Code System Note Provider Name and Address Organization Details Recorded Time 92228 Bactrim medicatio n other Not available Not available 07/16/2023 10078 9 RxNorm React ion: unkno wn, unspe cifie d;; Not Available [facility] 4 00:55:51 57918 codeine sulfate medicatio n other Not available Not available 07/16/2023 46219 RxNorm React ion: unkno wn, unspe cifie d;; Not Available [facility] 4 00:55:56 Medications Name Sig Start Date Stop Date Status Note LastModified by Organization Details LastModified Time medbox status USE DIRECTED active Not Available Not Available No t Available furosemid e 40 mg tablet TAKE 1 TABLET BY MOUTH EVERY MORNING active Not Available Not Available No t Available Augmentin 875 mg-125 mg tablet 2017 active Medicati on ID: 105782 D uration Value: 5 Prescri bed By [...] nebulizat ion 2018 active Medicati on ID: 487006 D uration Value: 5 Brand Name: albutero [...] mg tablet 2018 active Medicati on ID: 464758 D uration Value: 30 Brand Name: lisinopr [...] mg tablet 2018 active Medicati on ID: 199684 D uration Value: 30 Brand Name: buspiron e Send Method: E-Prescr ibed Sub s Allowed: subs OK Speci al Instruct ion: TAKE 1 TABLET BY MOUTH THREE TIMES DAILY NEEDED ANXIETY Medicati onGeneri cName: buspiron e Not Available Not Available Not Available Tiazac 120 mg capsule,e xtended release 02/04 completed Medicati on ID: 02285 Re ason: () Brand Name: Tiazac S [...] elayed release 2018 active Medicati on ID: 848774 D uration Value: 30 Brand Name: omeprazo le Send Method: E-Prescr ibed Sub s Allowed: subs OK Speci al Instruct ion: TAKE 1 CAPSULE TWICE DAILY IN THE MORNING AND IN THE EVENING 1 HORA AN KALEN DE LAS COMIDAS Medicati onGeneri cName: omeprazo le Not Available Not Available Not Available Aspirin Childrens 81 mg chewable tablet 2013 active Medicati on ID: 24595 Br and Name: Aspirin Children s Send [...] mg tablet 2018 active Medicati on ID: 328405 D uration Value: 30 Brand Name: levon post ne Send Method: E-Prescr ibed Sub s Allowed: subs OK Speci al Instruct ion: TAKE 2 TABLETS BY MOUTH ONCE DAILY IN THE MORNING Medicati onGeneri cName: levon jenkinsqui ne Not Available Not Available Not Available ibuprofen 600 mg tablet 2018 active Medicati on ID: 901257 D uration Value: 30 Brand Name: ibuprofe [...] 24 hr 2018 active Medicati on ID: 772705 D uration Value: 30 Brand Name: metformi n Send Method: E-Prescr ibed Sub s Allowed: subs OK Speci al Instruct ion: TAKE 1 TABLET BY MOUTH TWICE DAILY IN THE MORNING AND IN THE EVENING W ITH FOOD Med icationG enericNa me: metformi n Not Available Not Available Not Available Ambien 5 mg tablet 2013 active Medicati on ID: 97874 Br and Name: Ambien S end Method: [...] mg capsule 2013 active Medicati on ID: 10115 Br and Name: Kade Rivera end Method: [...] inhalatio n 2018 active Medicati on ID: 165035 D uration Value: 30 Brand Name: Breo [...] subcutane ous 2018 active Medicati on ID: 625968 D uration Value: 35 Brand Name: Humulin [...] Updated DateTime 03/13/2024 157.48 cm 26 kg/m2 90007.12 g Shantell Wise [facility] 03/13/2024 13:27:58 Social History None recorded. Functional Status None recorded. Mental Status None recorded. Family History Nothing Reported. Medical History No medical history recorded. Gynecological HistoryNo gynecological history recorded. Obstetrics History GPAL:G 0 P 0 0 0 0 Past Encounters Encounter ID Performer Location Encounter Start Date Encounter Closed Date Diagnosis/Indication Diagnosis SNOMED-CT Code Diagnosis ICD10 Code Diagnosis Note [id number] UMESH DIAZ MD [facility] [address] [place] [address] 03/13/2024 13:18:07 03/13/2024 13:52:50 Oropharyngeal dysphagia 07738236 R13.12 Exam and laryngosco py were normal. I recommend a swallow study (MBS) to reassess her swallow. F/u after. If normal I would suggest GI referral especially given her Sjogrens. Sj? ? ?gren's syndrome 47624237 M35.00 Encouraged hydration. Will consider GI referral [...] Mendez Member ID Guarantor Name 03/13/2024 1 [facility] - DOS ON OR AFTER 2022 - MEDICARE ADVANTAGE [place] & [place] (MEDICARE REPLACEMENT/AD VANTAGE - PPO) Jennifer Gu [id number] Jennifer Gu Notes Date Note Type Note [...] and dry mouth. UMESH DIAZ MD [address], [address], [place] [facility] 03/13/2024 13:43:36 OBGyn Episode No OBEpisode recorded.
--- OUTSIDE RECORDS SUMMARY | 2024-06-26 13:50 | XMS_ITS | Encounter Summary ---
Author Organization [employer] [facility] Address [address] [place] [address] 7t [place] [address] Care Team Providers Care Wig Stylist Name Role Phone [facility] Primary Care Provider [phone] Emy Askew MD Primary Care Pro vider Reason for Visit * Reason Onset Date Comments Appointment Request 06/07/2022 Encounter Details Date Type Department Care Team ([facility] st Contact Info) Description 06/07/2022 Telephone [facility] MEDICINE [address] [place] [address] [facility] [address] [place] [address] Appointment Request Social History Tobacco Use Types [...] with new provider. Please contact pt at [phone] documented in this encounter Plan of Treatment Upcoming Encounters Date Type Department Care Team (Late st Contact Info) Description 07/16/2024 11:15 AM EDT Office Visit [facility] MEDICINE [address] [place] [address] Emy Askew MD [address] [place] [address] documented as of this encounter Visit Diagnoses Not on filedocumented in this encounter Care Teams Wig Stylist Relationship Specialty Start Date End Date Kenya Sol FNP [address] [place] [address] PCP - General Family Medicine 01/22/22 07/24/22 Emy Askew MD [address] [place] [address] PCP - General Internal Medicine 07/25/22 documented as of this encounter
--- OUTSIDE RECORDS SUMMARY | 2024-06-26 13:50 | XMS_ITS | Encounter Summary ---
Author Organization [employer] Address [address] [facility] [address] [place] [address] Care Team Providers Care Clerk Stenographer Name Role Phone Emy Askew MD Primary [...] Encounter Note - Emy Goldsmith MD - 06/20/2024 11:32 PM EDT Labs done by outside provider documented in this encounter Plan of Treatment Upcoming Encounters Date Type Department Care Team (Late st Contact Info) Description 07/16/2024 11:15 AM EDT Office Visit [facility] [address] [place] [phone] Emy Askew MD [address] [place], [place] [phone] documented as of this encounter Procedures Procedure Name Priority Date/Time Associated Diagnosis Comments SARS COV2/INFLUENZA A/B AND RSV RNA QL NAAT Routine 06/20/2024 11:25 PM EDT CBC WITH AUTO DIFFERENTIAL Routine 06/20/2024 11:25 PM EDT LIPASE Routine 06/20/2024 11:25 PM EDT COMPREHENSIVE METABOLIC PANEL Routine 06/20/2024 11:25 PM EDT documented in this encounter Results * SARS-CoV-2 RNA, Influenza A/B, and RSV RNA, Ql NAAT (06/20/2024 11:25 PM EDT) Influenza A PCR NEGATIVE Negative [facility] Influenza B PCR NEGATIVE Negative [facility] Resp Syncy Virus RNA Qual PCR NEGATIVE Negative [facility] SARS COV2 PCR NEGATIVE Negative [facility] Comment:All test results mus t be correlated with clinical findings.Negative results do not preclude SARS-CoV2, influenza Avirus, influenza B virus and/or RSV infectionand should not be used as the sole basis for treatment orother patient management decisions. Negative results must becombined with clinical observations, patient history, andepidemiological information.This test has not been evaluated for monitoring treatment ofinfection.This test has been authorized by the FDA under an EmergencyUse Authorization (EUA) for use by authorized laboratories.Testing performed on the [employer] [address] [employer] GeneXpert utilizingreal-time RT-PCR.All SARS CoV2 and positive influenza A/B results arereported to [facility]. 06/20/2024 11:2 5 PM EDT 06/20/2024 11:28 PM EDT Generic External Data Provider LAB MICROBIOLOGY - GENERAL ORDERABLES Final Result Performing Organization Address City/[facility]/ZIP Co de Phone Number [facility] [address] [place] [phone] * Lipase (06/20/2024 11:25 PM EDT) Lipase 26 8 - 78 U/L [facility] 06/20/2024 11:2 5 PM EDT 06/20/2024 11:28 PM EDT Generic External Data Provider LAB BLOOD ORDERAB LES Final Result Performing Organization Address [facility] Co de Phone Number [facility] [address] [place] [phone] * (ABNORMAL) Comprehensive Metabolic Panel (06/20/2024 11:25 PM EDT) Sodium 141 135 - 145 mmol/L [facility] Potassium 3.3 3.3 - 5.1 mmol/L [facility] Chloride 106 96 - 108 mmol/L [facility] Carbon Dioxide 24 22 - 29 mmol/L [facility] Anion Gap 14 12 - 20 [facility] Urea Nitrogen (BUN) 13 9 - 16 mg/dL [facility] Creatinine, Serum 0.72 0.5 - 1.4 mg/dL [facility] Creatinine Clr Calc Pharmacy 66.2 [facility] Comment:Provided height and weight: 154.94 cm,63.049 kg.eGFR (calculated from the MDRD study equation) and eCrCl(calculated from the Cockcroft-Gault equation) are based ondifferent parameters and may not yield comparable results.If eCrCl result is absurd, please check patient'sheight/weight. Estimated Glomerular Filt Rate >60 [facility] Comment:Chronic Kidney Disea se: Estimated GFR < 60 mL/min/[id number] Kidney Disease: Estimated GFR < 15 mL/min/1.73m2 Glucose 141(H) 60 - 115 mg/dL [facility] Calcium 9.9 8.4 - 10.2 mg/dL [facility] Bilirubin, Total 0.5 0.0 - 1.0 mg/dL [facility] Aspartate Amino Transferase 22 5 - 31 U/L [facility] Alanine Aminotransferase 11 0 - 31 U/L [facility] Total Protein 7.8 6.5 - 8.0 g/dL [facility] Albumin Level 4.0 3.5 - 5.0 g/dL [facility] Alkaline Phosphatase 112 39 - 117 U/L [facility] 06/20/2024 11:2 5 PM EDT 06/20/2024 11:28 PM EDT us Generic External Data Provider LAB BLOOD ORDERAB LES Final Result [facility] [address] [place] [phone] * (ABNORMAL) CBC auto differential (06/20/2024 11:25 PM EDT) White Blood Count 12.4(H) 4.8 - 10.8 X10*3/uL [facility] Red Blood Count 4.65 4.20 - 5.50 X10*6/uL [facility] Hemoglobin 13.7 12.0 - 16.0 g/dl [facility] Hematocrit 40.4 37.0 - 47.0 % [facility] Mean Corpuscular Volume 86.9 80.0 - 98.0 fL [facility] Mean Corpuscular Hemoglobin 29.5 27.0 - 33.0 pg [facility] Mean Corpuscular HGB Conc 33.9 31.0 - 35.0 g/dl [facility] Red Cell Distribution Width 14.6 11.0 - 16.0 % [facility] Platelet Count 326 160 - 400 X10*3/uL [facility] Mean Platelet Volume 9.3(L) 9.4 - 12.3 fL [facility] Neutrophils Percent Auto 66.8 45 - 73 % [facility] Imm Gran Pct Auto 0.2 0.0 - 0.4 % [facility] Lymphocytes Percent Auto 17.3(L) 20 - 40 % [facility] Monocytes Percent Auto 9.0 2 - 11 % [facility] Eosinophils Percent Auto 6.2(H) 0 - 4 % [facility] Basophils Percent Auto 0.5 0 - 2 % [facility] NRBC Pct Auto 0.0 0.0 - 0.2 /100WBC [facility] Neutrophils Absolute Auto 8.3 2.0 - 8.3 x10*3/uL [facility] Imm Gran Abs Auto 0.03 0.00 - 0.03 X10*3/uL [facility] Lymphocytes Absolute Auto 2.2 1.2 - 4.9 X10*3/uL [facility] Monocytes Absolute Auto 1.1 0.1 - 1.2 X10*3/uL [facility] Eosinophils Absolute Auto 0.8(H) 0.0 - 0.4 X10*3/uL [facility] Basophils Absolute Auto 0.1 0.0 - 0.2 X10*3/uL [facility] NRBC Abs Auto 0.000 0.0 - 0.012 X10*3/uL [facility] 06/20/2024 11:2 5 PM EDT 06/20/2024 11:28 PM EDT us Generic External Data Provider LAB BLOOD ORDERAB LES Final Result [facility] [address] [place] [phone] documented in this encounter Visit Diagnoses Not on filedocumented in this encounter Additional Health Concerns Assessment Noted Time PHQ-9 Depression Total Score: 10 024 2:37 PM EDT documented as of this encounter Care Teams Clerk Stenographer Relationship Specialty Start Date End Date Emy Askew MD [address] [place] [address] PCP - General Internal Medicine 07/25/22 documented as of this encounter
--- OUTSIDE RECORDS SUMMARY | 2024-06-26 13:50 | XMS_ITS | Encounter Summary ---
Author Organization [employer] Address [address] [place] [address] 7 [place] [address] Care Team Providers Care Plier Worker Name Role Phone Kenya Sol [facility] Primary Care Provider [phone] Emy Askew MD Primary Care Pro vider Encounter Details Date Type Department Care Team (Late st Contact Info) Description 05/28/2022 Orders Only [facility] PEDS [address] [place], [place] [phone] Candy Miller LPN Social History Tobacco Use [...] 11:15 AM EDT Office Visit [facility] [address] [place], [place] [phone] Emy Askew MD [address] [place], [place] [phone] documented as of this encounter Visit Diagnoses Not on filedocumented in this encounter Care Teams Plier Worker Relationship Specialty Start Date End Date Kenya Sol FNP [address] [place] [phone] PCP - General Family Medicine 01/22/22 07/24/22 Emy Askew MD [address] [place] [address] PCP - General Internal Medicine 07/25/22 documented as of this encounter
--- OUTSIDE RECORDS SUMMARY | 2024-06-26 13:50 | XMS_ITS | Encounter Summary ---
Author Organization [employer] Address [address] [place] [address] 7 [place] [address] Care Team Providers Care Management Analyst Name Role Phone Emy Askew MD Primary Care Pro vider Reason for Visit * Reason Comments Med Refill Encounter Details Date Type Department Care Team ([facility] st Contact Info) Description 02/09/2023 Refill [facility] [address] [place] [address] Emy Askew MD [address] [place] [address] Social History Tobacco Use Types Packs/Day Years [...] Office Visit [facility] [address] [place] [phone] Emy Askew MD [address] [place] [phone] documented as of this encounter Visit Diagnoses Not on filedocumented in this encounter Additional Health Concerns Assessment Noted Time PHQ-9 Depression Total Score: 16 023 10:16 AM EDT documented as of this encounter Care Teams Management Analyst Relationship Specialty Start Date End Date Emy Askew MD [address] [place] [phone] PCP - General Internal Medicine 07/25/22 documented as of this encounter
--- OUTSIDE RECORDS SUMMARY | 2024-06-26 13:50 | XMS_ITS | Clinical Summary ---
Author Organization [address] [facility] Address [address] [place] [address] Phone Care Team Providers Care Retail Receiving Clerk Name Role Phone Berkley Bird MD Primary [...] EST Office Visit [facility] [place] [phone] [phone] Magen Velasco DPM Controlled type 2 diabetes with neuropathy ([facility] V24, [facility] V28) (Primary Dx); Pain in toes of [...] 07/09/2024 9:15 AM EDT Office Visit Orthopedic [facility] [address] [phone] Magen Velasco DPM [address] [phone] Health Maintenance Due Date Last Done Comments [...] mmol/L LAB CHEMISTRY METHOD 04/06/2024 6:42 PM [facility] Potassium 3.5 3.5 - 5.5 mmol/L LAB CHEMISTRY METHOD 04/06/2024 6:42 PM [facility] Chloride 102 96 - 110 mmol/L LAB CHEMISTRY METHOD 04/06/2024 6:42 PM [facility] CO2 31 21 - 32 mmol/L LAB CHEMISTRY METHOD 04/06/2024 6:42 PM [facility] Anion Gap 5 3 - 11 LAB CHEMISTRY METHOD 04/06/2024 6:42 PM [facility] Glucose 183(H) 70 - 100 mg/dL LAB CHEMISTRY METHOD 04/06/2024 6:42 PM [facility] BUN 17 5 - 25 mg/dL LAB CHEMISTRY METHOD 04/06/2024 6:42 PM [facility] Creatinine 0.94 0.50 - 1.10 mg/dL LAB CHEMISTRY METHOD 04/06/2024 6:42 PM [facility] eGFR 67 >=60 mL/min/1. 73m2 LAB CHEMISTRY METHOD 04/06/2024 6:42 PM [facility] Comment:Calculation based on the??Chronic Kidney Disease Epidemiology Collaboration (CKD-EPI) equation refit??without adjustment for race. BUN/Creatinine Ratio 18.1 LAB CHEMISTRY METHOD 04/06/2024 6:42 PM [facility] Calcium 10.3 8.5 - 10.5 mg/dL LAB CHEMISTRY METHOD 04/06/2024 6:42 PM [facility] AST (SGOT) 15 10 - 42 unit/L LAB CHEMISTRY METHOD 04/06/2024 6:42 PM [facility] ALT (SGPT) 22 10 - 60 unit/L LAB CHEMISTRY METHOD 04/06/2024 6:42 PM [facility] Alkaline Phosphatase 140(H) 42 - 121 unit/L LAB CHEMISTRY METHOD 04/06/2024 6:42 PM [facility] Total Protein 7.6 6.0 - 8.0 g/dL LAB CHEMISTRY METHOD 04/06/2024 6:42 PM [facility] Albumin 3.6 3.2 - 5.0 g/dL LAB CHEMISTRY METHOD 04/06/2024 6:42 PM [facility] Total Bilirubin 0.3 0.0 - 1.4 mg/dL LAB CHEMISTRY METHOD 04/06/2024 6:42 PM [facility] Blood Venous blood specimen / Unknown Venipuncture / Unknown 04/06/2024 2:00 PM EST 04/06/2024 2:00 PM EST us Magen Velasco DPM LAB BLOOD ORDERABLES Final Result [facility] [address] [place] [address], from Last [address] [phone] [facility] Member Subscriber Plan / Payer (Ef fective 2023-Present) Name:Jennifer Palmer Relation to Subscriber:Self Name:Jennifer Palmer Payer ID:[id number] Group ID:[id number] Type:Not on file Address: [address] [place] [address] Care Teams Retail Receiving Clerk Relationship Specialty Start Date End Date Berkley Bird MD [address] [phone] PCP - General Internal Medicine 02/20/24
--- OUTSIDE RECORDS SUMMARY | 2024-06-26 13:50 | XMS_ITS | Clinical Summary ---
Author Organization [employer] Address [address] [place] [address] 7[address] [place] [address] Care Team Providers Care Senior Manager Quality Assurance Name Role Phone Emy Askew MD Primary [...] Inhale 1 puff at bed time. 07/26/19 22 Active leflunomide (Arava) 20 MG tablet Take 20 mg by mouth in the morning. 07/26/19 23 Active gabapentin (Neurontin) 300 MG capsule Take 300 mg by mouth 2 times daily. By psych Active FREESTYLE LITE test stripIndications:T ype 2 diabetes mellitus with hyperglycemia (CMS/HCC),Type 2 diabetes mellitus without complications (CMS/HCC) TEST BLOOD SUGAR FOUR TIMES DAILY 100 strip 11 11/17/19 23 Active FreeStyle lancets 1 each by Other route at noon and 1 each in the evening. Test blood sugar 4 times a day. 100 each 11 08/07/19 24 025 Active estradiol (Estrace) 0.1 MG/GM vaginal cream Insert 1 g into the vagina Once per day. 1g vaginally x 14d, then twice weekly thereafter 45 g 2 11/12/19 24 Active lidocaine (Lidoderm) 5 % patch APPLY 1 PATCH TOPICALLY TO SKIN IN THE MORNING. LEAVE ON FOR 12 HOURS AND OFF FOR 12 HOURS DIRECTED MAY USE 2 PATCHES 60 patch 2 11/18/19 24 Active acetaminophen (Tylenol) 500 MG tabletIndications: Acute [...] 2 tabs by mouth at bedtime 12/25/19 24 Active clonazePAM (KlonoPIN) 0.5 MG tablet Take 0.5 mg by mouth if needed each day. 12/19/19 24 Active amLODIPine (Norvasc) 5 MG tablet Take 5 mg by mouth at noon and 5 mg in the evening. Active atorvastatin (Lipitor) 20 MG tablet Take 1 tablet (20 mg) by mouth at bedtime. 90 tablet 1 01/13/20 24 Active traZODone (Desyrel) 50 MG tablet Take 1 tablet (50 mg) by mouth if needed at bedtime for sleep. 90 tablet 01/13/20 24 Active cholecalciferol (D3 Super Strength) 50 MCG (1999 UT) capsuleIndications :Vitamin D deficiency, unspecified Take [...] 2 diabetes mellitus without complication, unspecified whether superintendent container terminal insulin use (CMS/HCC) USE DIRECTED FIVE TIMES [...] severe pain. 12 tablet 06/11/19 25 Active sodium chloride (Stoddard Nasal [place]) 0.65 % nasal spray Administer 1 spray into each nostril if needed for congestion. 30 mL 2 06/26/19 24 025 amoxicillin (Amoxil) 500 MG capsuleIndications :Pharyngitis, unspecified etiology Take 1 capsule (500 mg) by mouth every 12 (twelve) hours for 10 days. 20 capsule 06/05/19 25 025 Active Problems Problem Noted Date Diagnosed Date Alopecia of scalp 06/22/2024 Neck pain 01/13/2024 Increased urinary frequency 11/13/2023 Elevated alkaline phosphatase level 05/04/2023 Acute midline low back pain without sciatica 04/2023 Renal cyst 03/20/2023 Poor memory 03/20/2023 Healthcare maintenance 09/24/2022 Assessment & Plan (12/06/2022 6:30 AM EDT): -pap smear 2017 neg /no HPV [...] diet and exercise,discussed healthy life style - infrastructure administrator referred already-pd to schedule apt. gave today information to pt to call for apt Assessment & Plan (10/23/2022 5:21 PM EDT): Advised pt to improve diet and exercise,discussed healthy life style - infrastructure administrator referred already-pd to schedule apt Assessment & Plan (09/24/2022 8:29 PM EDT): Advised pt to improve diet and exercise,discussed healthy life style -discussed infrastructure administrator referral - today Sialoadenitis of submandibular gland [...] referred by ENT for further eval in [place] but never went -referred again to ENT [...] referred by ENT for further eval in [place] but never went -referred again to ENT [...] w RA / Sjogren's disease, follows w silk hanger - Continue care w specialist -on leflunomide and MTX Assessment & Plan (10/23/2022 5:23 PM EDT): Pt w RA / Sjogren's disease, follows w silk hanger - Continue care w specialist -on leflunomide and MTX Assessment & Plan (09/24/2022 8:33 PM EDT): Pt w RA / Sjogren's disease, follows w silk hanger - Continue care w specialist Bilateral post-traumatic [...] Pt following w psychiatrist and therapist at [facility]. Denies SI but has thoughts to be better off . - Continue care w specialist - Pt requests information to be able to change to an old age home --already received information -in process per pt Assessment & Plan (10/23/2022 5:23 PM EDT): Pt following w psychiatrist and therapist at [facility]. Denies SI but has thoughts to be better off . - Continue care w specialist - Pt requests information to be able to change to an old age home --already received information -in process per pt Assessment & Plan (09/24/2022 8:32 PM EDT): Pt following w psychiatrist and therapist at [facility]. Denies SI but has thoughts to be better off . - Continue care w specialist - Pt requests information to be able to change to an old age home -- I spoke w case monitor today and they will come to speak w pt to give info. Was told that there is no need to refer to CM for this. Type 2 diabetes mellitus without complication Assessment & Plan (12/06/2022 6:16 AM EDT): 09/2022 HbA1C 8.2<---8.7, CBG 248., total ch 169, trig 324( in fasting) ,HDL 36,LDL 69, Microalb neg Used to follow w spiritual counselor, but lost care. Not on metformin for [...] - to f in 1 y. - Yacht Master: seen in 11/2022 Assessment & Plan (10/23/2022 5:46 PM EDT): 09/2022 HbA1C 8.2<---8.7, CBG 248., total ch 169, trig 324( in fasting) ,HDL 36,LDL 69, Microalb neg Used to follow w spiritual counselor, but lost care. Not on metformin for [...] - to f in 1 y. - Yacht Master: referred today Assessment & Plan (09/24/2022 8:51 PM EDT): Today HbA1C 8.7, CBG 248. Used to follow w spiritual counselor, but lost care. - DM2 labs. - Will consider increasing Trulicity at her next appt. - Pt not currently on Metformin, but used to be in the past. Will check at her next appt, and if she can tolerate it, will resume Rx. - Ophthalmology 07/2022 - to f in 1 y. - Yacht Master: will refer at next visit. Varicose veins of lower extremity 07/08/2017 Assessment & Plan (10/23/2022 5:12 PM EDT): Pt w lower extremity edema trace from 1+ before , possibly from Cardiazem and venous insufficiency. - Advised to use compression stockings,--started using with noted improved LE edema -I confirmed today w her sand carrier-Dr Watkins #[phone] that pt does not have CHF and [...] (12/06/2022 6:19 AM EDT): Pt following with silk hanger. Pt w consistently dry mouth. From med [...] for unclear reasons. - PT following w sand carrier actively w on and off chest discomfort. [...] mg in pm - PT following w sand carrier -will f BP in next 3 to 4 weeks Assessment & Plan (09/24/2022 8:43 PM EDT): BP slightly elevated at 144/94 - Holter 2019 neg. -echocardiogram 2018The left ventricular systolic function is normal. The visually estimated ejection fraction is between 60-65%. -stress test 2019 : nondiagnostic EKG For ischemia. - Will monitor BP manually at next visit. - PT following w sand carrier Chronic constipation 12/24/2016 Gastroesophageal reflux disease without esophagi tis 12/24/2016 Hyperlipidemia associated with type 2 diabetes m dulce maria 12/24/2016 Migraine 12/24/2016 Resolved Problems Problem Noted [...] in 2016 here . 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 Hold am of surgery lasix,amytriptiline,lisinopril .Hold ASA 5 days prior procedure and avoid NSAIDS 7 days prior procedure. -will rec to have post op EKG as rec by her sand carrier for noted prolonged QTC -will rec to [...] Data 06/19/2024 10:15 AM EDT Office Visit [address] [address] Lori Granados FNP Alopecia of scalp (Primary Dx) 06/19/2024 Travel 06/19/[address] [address] Lori Granados FNP Chart Prep 06/18/[address] [address] Emy Askew MD Nurse Triage 06/16/2024 Orders Only GENERIC EXTERNAL DATA DEPARTMENT Provider, Generic External Data 06/11/2024 Telephone [facility] [address] [place] [phone] Mehul Alexis MD Results 06/10/2024 8:40 AM EDT Office Visit [facility] [address] [address] Mehul Alexis MD Neck pain (Primary Dx); Acute intractable headache, unspecified headache type 06/10/2024 Telephone [facility] [address] [place] [phone] Mehul Alexis MD 06/10/2024 Orders Only [facility] [address] [place] [phone] Mehul Alexis MD 06/04/2024 10:00 AM EDT Office Visit [facility] [address] [address] Kaden Jaime MD Pharyngitis, unspecified etiology (Primary Dx) 05/27/2024 Telephone [facility] [address] [place] [address] Alden Cai CNM Results 05/26/2024 1:00 PM EDT Office Visit [facility] [address] [place] [address] Alden Cai CNM Visit for pelvic exam (Primary Dx); Vulvar itching 05/26/2024 Travel 05/20/2024 Refill [facility] [address] [place] [address] Dorinda Barajas ANP 05/10/2024 Refill [facility] [address] [place] [address] Emy Askew MD Benign essential hypertension 05/05/2024 Refill [facility] [address] [place] [address] Emy Askew MD Chronic constipation 04/28/2024 Refill [facility] [address] [place] [address] Emy Askew MD Type 2 diabetes mellitus without complication, with long-term current use of insulin ([facility]) 04/13/2024 Telephone [facility] [address] [place] [address] Emy Askew MD Nurse Triage 04/08/2024 Telephone [facility] [address] [place] [address] Jessica Valenzuela [place] Nguyen recall 04/05/2024 Refill [facility] [address] [place] [address] Emy Askew MD from Last 3 Months [...] EDT Office Visit [facility] [address] [place] [address] [phone] Emy Askew MD [address] [place], [place] [phone] Health Maintenance Due Date Last Done Comments [...] Colonoscopy 05/08/2024 05/09/2023 Colorectal Cancer Screening 05/08/2024 Dental X-Ray: Bitewings 06/10/2024 06/10/19 24, 03/01/2023, 10/26/2021, Additional history exists SDOH Screening 10/31/2024 11/01/2023 Depression Screening 11/11/2024 11/12/2023, 11/12/19 24 Diabetes: Urine Protein Screening 12/24/2024 12/25/2023, 10/04/2022, 12/21/2020, Additional history exists Lipid Panel 12/24/2024 12/25/2023, 0203/2023, 10/04/2022, Additional history exists Alcohol/Substance Use Screening 01/12/2025 01/13/2024 Mammogram 03/17/2025 03/17/2024, 11/03, 07/28/2021, Additional history exists Tobacco Screening 06/19/2025 06/19/2024 Eye Exam 01/07/2026 01/08/2024, 110 08/2023, 01/08/2024, Additional history exists DTaP/Tdap/Td Vaccines [...] AUTO DIFFERENTIAL Routine 06/20/2024 11:25 PM EDT SARS COV2/INFLUENZA A/B AND RSV RNA QL NAAT Routine 06/20/2024 11:25 PM EDT GLUCOSE, WHOLE [...] Routine 05/26/2024 12:37 PM EDT Vulvar itching BI MAMMOGRAM SCREENING TOMOSYNTHESIS BILATERAL Routine 03/17/2024 1:00 PM EST HEMOGLOBIN A1C Routine 12/25/2023 7:08 AM EDT Annual physical exam LIPID PANEL, STANDARD Routine 12/25/2023 7:08 AM EDT Annual physical exam ALBUMIN, RANDOM URINE W/CREATININE Routine 12/25/2023 7:05 AM EDT Annual physical exam BITEWING - SINGLE RADIOGRAPHIC IMAGE Routine 06/10/2023 3:30 PM EDT Periodontal disease Fractured dental christianity with loss of material HPV MRNA E6/E7 [...] Recently Relevant to Health Maintenance Results * SARS-CoV-2 RNA, Influenza A/B, and RSV RNA, Ql NAAT (06/20/2024 11:25 PM EDT) Influenza A PCR NEGATIVE Negative [facility] Influenza B PCR NEGATIVE Negative [facility] Resp Syncy Virus RNA Qual PCR NEGATIVE Negative [facility] SARS COV2 PCR NEGATIVE Negative [facility] Comment:All test results mus t be [...] use by authorized laboratories.Testing performed on the [employer] GeneXpert utilizingreal-time RT-PCR.All SARS CoV2 and positive influenza A/B results arereported to [facility]. 06/20/2024 11:2 5 PM EDT 06/20/2024 11:28 PM EDT us Generic External Data Provider LAB MICROBIOLOGY - GENERAL ORDERABLES Final Result [facility] [address] [place], [place] [phone] * (ABNORMAL) CBC auto differential (06/20/2024 11:25 PM EDT) White Blood Count 12.4(H) 4.8 - 10.8 X10*3/uL [facility] Red Blood Count 4.65 4.20 - 5.50 X10*6/uL [facility] Hemoglobin 13.7 12.0 - 16.0 g/dl [facility] Hematocrit 40.4 37.0 - 47.0 % [facility] Mean Corpuscular Volume 86.9 80.0 - 98.0 fL [facility] Mean Corpuscular Hemoglobin 29.5 27.0 - 33.0 pg [facility] Mean Corpuscular HGB Conc 33.9 31.0 - 35.0 g/dl [facility] Red Cell Distribution Width 14.6 11.0 - 16.0 % [facility] Platelet Count 326 160 - 400 X10*3/uL [facility] Mean Platelet Volume 9.3(L) 9.4 - 12.3 fL [facility] Neutrophils Percent Auto 66.8 45 - 73 % [facility] Imm Gran Pct Auto 0.2 0.0 - 0.4 % [facility] Lymphocytes Percent Auto 17.3(L) 20 - 40 % [facility] Monocytes Percent Auto 9.0 2 - 11 % [facility] Eosinophils Percent Auto 6.2(H) 0 - 4 % [facility] Basophils Percent Auto 0.5 0 - 2 % [facility] NRBC Pct Auto 0.0 0.0 - 0.2 /100WBC [facility] Neutrophils Absolute Auto 8.3 2.0 - 8.3 x10*3/uL [facility] Imm Gran Abs Auto 0.03 0.00 - 0.03 X10*3/uL [facility] Lymphocytes Absolute Auto 2.2 1.2 - 4.9 X10*3/uL [facility] Monocytes Absolute Auto 1.1 0.1 - 1.2 X10*3/uL [facility] Eosinophils Absolute Auto 0.8(H) 0.0 - 0.4 X10*3/uL [facility] Basophils Absolute Auto 0.1 0.0 - 0.2 X10*3/uL [facility] NRBC Abs Auto 0.000 0.0 - 0.012 X10*3/uL [facility] 06/20/2024 11:2 5 PM EDT 06/20/2024 11:28 PM EDT us Generic External Data Provider LAB BLOOD ORDERAB LES Final Result [facility] [address] [place] [address] [phone] * Lipase (06/20/2024 11:25 PM EDT) Lipase 26 8 - 78 U/L [facility] 06/20/2024 11:2 5 PM EDT 06/20/2024 11:28 PM EDT us Generic External Data Provider LAB BLOOD ORDERAB LES Final Result Performing Organization Address [facility]/ZIP Co de Phone Number [facility] [address] [place] [address] [phone] * (ABNORMAL) Comprehensive Metabolic Panel (06/20/2024 11:25 PM EDT) Sodium 141 135 - 145 mmol/L [facility] Potassium 3.3 3.3 - 5.1 mmol/L [facility] Chloride 106 96 - 108 mmol/L [facility] Carbon Dioxide 24 22 - 29 mmol/L [facility] Anion Gap 14 12 - 20 [facility] Urea Nitrogen (BUN) 13 9 - 16 mg/dL [facility] Creatinine, Serum 0.72 0.5 - 1.4 mg/dL [facility] Creatinine Clr Calc Pharmacy 66.2 [facility] Comment:Provided height and weight: 154.94 cm,63.049 kg.eGFR (calculated from the MDRD study equation) and eCrCl(calculated from the Cockcroft-Gault equation) are based ondifferent parameters and may not yield comparable results.If eCrCl result is absurd, please check patient'sheight/weight. Estimated Glomerular Filt Rate >60 [facility] Comment:Chronic Kidney Disea se: Estimated GFR < 60 mL/min/1.81z4Twqabh Kidney Disease: Estimated GFR < 15 mL/min/1.73m2 Glucose 141(H) 60 - 115 mg/dL [facility] Calcium 9.9 8.4 - 10.2 mg/dL [facility] Bilirubin, Total 0.5 0.0 - 1.0 mg/dL [facility] Aspartate Amino Transferase 22 5 - 31 U/L [facility] Alanine Aminotransferase 11 0 - 31 U/L [facility] Total Protein 7.8 6.5 - 8.0 g/dL [facility] Albumin Level 4.0 3.5 - 5.0 g/dL [facility] Alkaline Phosphatase 112 39 - 117 U/L [facility] 06/20/2024 11:2 5 PM EDT 06/20/2024 11:28 PM EDT us Generic External Data Provider LAB BLOOD ORDERAB LES Final Result Performing Organization Address [facility]/ZIP Co de Phone Number [facility] [address] [place] [address] [phone] * (ABNORMAL) Glucose, Whole Blood (06/16/2024 10:45 AM EDT) Glucose, Whole Blood 263(H) 60 - 115 mg/dL [facility] Comment:METER #: [id number] Testing performed in the Endocrinology Department [address] , [address], [facility]. 06/16/2024 10:4 5 AM EDT 06/16/2024 10:48 AM EDT us Generic External Data Provider LAB BLOOD ORDERAB LES Final Result Performing Organization Address [facility]/ZIP Co de Phone Number [facility] [address] [place] [address] [phone] * XR CERVICAL SPINE 3V (06/10/2024 9:13 AM EDT) Anatomical Region Laterality Modality Abdomen Radiographic Karla ging 06/10/2024 9:13 AM EDT Narrative 06/10/2024 9:41 AM EDT ?[facility] ?[address] ?[place] [address] ?XRay Report ? Signed ? Patient: Jennifer Palmer ?MR#: [id number] ?? 0 ? : 1960 ?Acct:[id number] ? Age/Sex: 63 / F ?ADM Date: 06/10/24 ? Loc: HO.HHCX ? Attending Dr: Mehul Alexis MD ? Ordering Physician: MEHUL ALEXIS MD ?? Date of Service: 06/10/24 ?? Procedure(s): XR cervical spine 3V ?? Accession Number(s): [id number] ? cc: MEHUL ALEXIS MD ? EXAMINATION: [...] 06/10/24 0939 ? DD/ 2 ? TD/TT: 06/10/2413 ? Fur Farmer: ? Procedure Note Bridgette Marcial - 06/10/[address] [address] XRay Report Signed Patient: Axel Palmer#: [id number] 0 : 9Acct:[id number] Age/Sex: 63 / FADM Date: 06/10/24 Loc: HO.HHCX Attending Dr: Mehul Alexis MD Ordering Physician: MEHUL ALEXIS MD Date of Service: 06/10/24 Procedure(s): XR cervical spine 3V Accession Number(s): [id number] cc: MEHUL ALEXIS MD EXAMINATION: XR CERVICAL [...] MDin OV> 06/10/24938 DD/ 2 TD/TT: 06/10/24912 Fur Farmer: Mehul Alexis MD IMG XR PROCEDURES Final Result * Influenza B (ID NOW Rapid Molecular) (06/04/2024 9:50 AM EDT) Pathologist [facility] Influenza B Negative Negative, Indeterminate [facility] Swab 06/04/2024 9:50 AM EDT us Kaden Jaime MD POINT OF CARE TEST ENTER/EDIT OR DERABLES Final Result [facility] [address] [place] [address] [phone] * Influenza A (ID NOW Rapid Molecular) (06/04/2024 9:50 AM EDT) Influenza A Negative Negative, Indeterminate [facility] Swab 06/04/2024 9:50 AM EDT us Kaden Jaime MD POINT OF CARE TEST ENTER/EDIT OR DERABLES Final Result Performing Organization Address [facility] Co de Phone Number [facility] [address] [place] [phone] * POCT Rapid COVID Ag (06/04/2024 9:50 AM EDT) [facility] Rapid COVID Ag Negative Swab 06/04/2024 9:50 AM EDT us Kaden Jaime MD POINT OF CARE TEST ENTER/EDIT OR DERABLES Final Result * POCT rapid strep A manually resulted (06/04/2024 9:50 AM EDT) [facility] Rapid Strep A Screen Negative Negative, None Detected Swab 06/04/2024 9:50 AM EDT us Kaden Jaime MD POINT OF CARE TEST ENTER/EDIT OR DERABLES Final Result * Culture, Throat (06/04/2024 9:50 AM EDT) Throat Structure of anterior portion of neck / Unknown 06/04/2024 9:50 AM EDT 06/04/2024 6:00 PM EDT Comment:Throat Narrative [facility] - 06/05/2024 11:47 AM EDT Streptococcus pyogenes (Grp A) Quant Org ID [id number] Specimen Source: Throat us Kaden Jaime MD LAB MICROBIOLOGY - GENERAL ORDER CANDI Final Result Performing Organization Address City/[facility]/ZIP Co de Phone Number [facility] [address] [place] [phone] * POCT fern test, vaginal fluid manually resulted (05/26/2024 12:38 PM EDT) [facility] DAVON Prep Negative Comment:pH 5, neg whiff, neg clue, neg trich, neg wbc, neg hyphae Vaginal Fluid Vaginal structure / Unknown 05/26/2024 12:38 PM EDT Alden Cai CNM POINT OF CARE TEST ENTER/ EDIT ORDERABLES Final Result * Bacterial Vaginosis Panel (05/26/2024 12:37 PM EDT) TRICHOMONAS VAGINALIS DETECTION BY PCR NOT DETECTED Not Detect [facility] BACTERIAL VAGINOSIS DETECTION BY PCR NEGATIVE Negative [facility] Comment:The BV organism targ ets [...] DETECTION BY PCR NOT DETECTED Not Detect [facility] Sammie glab krusei PCR NOT DETECTED Not Detect [facility] Swab Vaginal structure / Unknown 05/26/2024 12:37 PM EDT 05/26/2024 4:52 PM EDT Alden Cai CNM LAB MICROBIOLOGY - GENERA L ORDERABLES Final Result [facility] [address] [place] [phone] * BI Mammogram Screening Tomosynthesis Bilateral (03/17/2024 1:00 PM EST) Anatomical Region Laterality Modality Breast Bilateral Mammography 03/17/2024 1:00 PM EST Narrative 03/28/2024 10:52 AM EST ? [facility] ? [address] ?[place] [address] ? Mammography Report ? Signed ? Patient: Palmer,Jennifer ?MR#: [id number] ?? 0 ? : 1960 ?Acct:[id number] ? Age/Sex: 63 / F ?ADM Date: /14/25 ? Loc: HO.MAMMO ? Attending Dr: Emy Goldsmith MD ? Ordering Physician: Emy Askew MD ?Re ?? sults: 1Negative ? Date of Service: 03/17/24 ?Follow Up: 1 Year From Orig ?? inal Mammogram ? Procedure(s): MM tomosynthesis screening BI ?? Accession Number(s): [id number] ? cc: Emy Askew MD ? EXAMINATION: [...] DD/ 1300 ? TD/TT: 03/17/24 1320 ? Fur Farmer: ? Procedure Note Donotsilviainterpreter, Image - 03/28/2024 [facility] [address] [place], [place] [address] Mammography Report Signed Patient: Axel Palmer#: [id number] 0 : 9Acct:[id number] Age/Sex: 63 / FADM Date: 03/17/24 Loc: HO.MAMMO Attending Dr: Emy Goldsmith MD Ordering Physician: Emy Askewe sults: 1Negative Date of Service: 03/17/24Follow Up: 1 Year From Orig inal Mammogram Procedure(s): MM tomosynthesis screening BI Accession Number(s): [id number] cc: Emy Askew MD EXAMINATION: MM SCREENING [...] 03/28/24 1049 DD/ 1300 TD/TT: 03/17/24 1320 Fur Farmer: Emy Goldsmith MD IMG BI PROCEDURES Final Result * (ABNORMAL) Hemoglobin A1c (12/25/2023 7:08 AM EDT) Hemoglobin A1c 8.2(H) <6.0 % [facility] Comment:Hemoglobin A1C Refer ence Range Adults: 4.8 - 6.0 % Non diabetic: < 6.0 % Goal: < 7.0 %Additional Action Suggested: > 8.0 %Note: Hemoglobin A1c results are invalid for patients with abnormal amounts of HbF. Blood transfusions may impact the HbA1c concentration in the patient sample. Estimated Average Glucose 189 mg/dL [facility] Comment:eAG = Estimated ave rage glucose which is %A1C expressed asaverage glucose, using the formula of the [id number] Glucose study (ADAG), Diabetes Care, Vol.31,#8,Oct. 2007 Blood Venous blood specimen / Unknown 12/25/2023 7:08 AM EDT 12/25/2023 7:09 AM EDT Emy Goldsmith MD LAB BLOOD ORDERAB LES Final Result [facility] [address], [place] [phone] * (ABNORMAL) Lipid Panel, Standard (12/25/2023 7:08 AM EDT) Triglycerides 232(H) <150 mg/dL [facility] Comment:Desirable Triglyceri de: less than 150 mg/dLBorderline High Triglyceride 150-199 mg/dLHigh Triglyceride: 200-499 mg/dLVery High Triglyceride: greater than or equal to 5OO mg/dL Cholesterol 154 <200 mg/dL [facility] Comment:Desirable Cholestero l: less than 200 mg/dLBorderline High Cholesterol: 200-239 mg/dLHigh Cholesterol: greater than 239 mg/dL LDL Cholesterol Calculated 64 <100 mg/dL [facility] Comment:Desirable LDL: less than 100 mg/dLNear Optimal/Above Optimal LDL: 110- 129 mg/dLBorderline High LDL: 130-159 mg/dLHigh LDL: 160-189 mg/dLVery High LDL: greater than or equal to 190 mg/dL HDL Cholesterol 44 >40 mg/dL [facility] Comment:Desirable HDL: great er than 40 mg/dL Note: This HDL assay may give artificially low results in patients with liver disease. Blood Venous blood specimen / Unknown 12/25/2023 7:08 AM EDT 12/25/2023 7:09 AM EDT us Emy Goldsmith MD LAB BLOOD ORDERAB LES Final Result Performing Organization Address City/[facility]/ZIP Co de Phone Number [facility] [address] [place] [phone] * (ABNORMAL) Albumin, Random Urine W/Creatinine (12/25/2023 7:05 AM EDT) Creatinine, Urine 50.21 mg/dL [facility] Microalbumin Urine 78.0 mg/L [facility] Microalbum Creatinine Ratio Ur 155.3(H) <30 ug/mg cr [facility] Comment:Albumin/Creatinine R atio Reference Ranges: Normal: < 30 ug/mg creatinine Microalbuminuria: 30 - 300 ug/mg creatinineClinical Albuminuria: > 300 ug/mg creatinine Urine (Urine, Random) 12/25/2023 7:05 AM EDT 12/25/2023 7:49 AM EDT us Emy Goldsmith MD LAB URINE ORDERAB LES Final Result [facility] [address] [place] [address] [phone] * HPV mRNA E6/E7 w/Reflex to HPV Genotypes 16, 18/45 (05/27/2023 10:50 AM EDT) HPV nRNA E6/E7 Not Detected Not Detected [facility] Comment:Methodology: Transcr iption-Mediated AmplificationThis assay detects E6/E7 viral messenger RNA (mRNA) from 14high-risk HPV types (16,18,31,33,35,39,45,51,52,56,58,59,66,68).Cervical sources are required for HPV testing.If a vaginal source from a patient who has had atotal hysterectomy with removal of cervix wassubmitted, please contact the testing laboratoryfor alternative testing options.For additional information, please refer tohttp://education.Fablistic/faq/OIR981f1(This link if provided for information/educational purposes only.)THIS TEST WAS PERFORMED AT:[employer] [place] [phone] CAMARENA MD HPV mRNA E6/E7 TNP [facility] HPV 16 [facility] HPV 18/45 RNA [facility] 05/27/2023 10:5 0 AM EDT 05/28/2023 11:50 AM EDT [facility] CYTOLOGY ORDERABLES F inal Result [facility] [address] [place] [address] [phone] * Pap Smear (05/27/2023 10:50 AM EDT) Swab Cervix uteri structure / Unknown 05/27/2023 10:50 AM EDT 05/28/2023 11:50 AM EDT Narrative [facility] - 06/09/2023 5:49 PM EDT ----- ------- Name: Jennifer Palmer ?Age/Sex: 62/F ? : 1960 Unit#: [id number] ?? Attend Dr: ALDEN CAI CNM ?Re05/27/23 ?Status: DEP REF ? Location: HO.HHCLNP ? Disch: ? ----- ------- SPEC : [id number] ? RECD: 05/28/23-1150 ? STATUS: ??SOUT ? REQ NUM: [id number] ? PRANAY: 05/27/23-1050 ? SUBM DR: ALDEN CAI CNM ? ENTERED: ??05/28/23-1525 ?SP TYPE: Pap Smr ?OTHR : ? [...] 66, 68) ? HPV testing performed by [facility], [place], [place]. ??See reference laboratory ?? portion of the EMR for entire report. ?Clinical Information LMP: Postmenopausal Previous PAP test: Unknown date/findings ? Material Received ?? ThinPrep-Vaginal/Cervical ----- ------- Signed (signature on file) Esther Ness Nenita 06/09/23 [id number] ? ----- ------- ? END OF REPORT ? [facility] CYTOLOGY ORDERABLES F inal Result Performing Organization Address [facility] Co de Phone Number [facility] [address] [place] [address] [phone] * Colonoscopy (05/09/2023 6:56 PM EST) Historical Provider HEALTH MAINTENANCE Final Result * Hepatitis C Antibody Reflex (10/04/2022 9:42 AM EDT) Hepatitis C Antibody Nonreactive Nonreactive [facility] Comment:Antibodies to HCV no t detected; does not exclude early acuteHCV infection. 10/04/2022 9:42 AM EDT 10/04/2022 9:43 AM EDT Emy Goldsmith MD LAB BLOOD ORDERAB LES Final Result Performing Organization Address [facility] Co de Phone Number [facility] [address] [place] [address] [phone] from Last 3 Months or Most Recently Relevant to Health Maintenance Insurance [facility] OPTIONS (HMO D-SNP) PATRICIA [place] [id number] [place] ADULT Care Teams Senior Manager Quality Assurance Relationship Specialty Start Date End Date Emy Askew MD [address] [place] [phone] PCP - General Internal Medicine 07/25/22
--- OUTSIDE RECORDS SUMMARY | 2024-06-26 13:50 | XMS_ITS | Encounter Summary ---
Author Organization [facility] Address [address] [place] [address] [facility] [place] [address] Care Team Providers Care Care Coordinator Name Role Phone Cyn Bosch MD Primary Care Provider Kenya Delong [facility] Primary Care Provider [phone] Emy Askew MD Primary Care Pro vider Encounter Details Date Type Department Care Team (Latest Contact Info) Description 05/09/2020 Abstract [facility] CONVERSIONS Dental, Provider, DDS Social [...] 11:15 AM EDT Office Visit [facility] MEDICINE [address] [place] [address] Emy Askew MD [address] [place], [place] [phone] documented as of this encounter Visit Diagnoses Not on filedocumented in this encounter Care Teams Care Coordinator Relationship Specialty Start Date End Date Cyn Bosch MD PCP - General Family Medicine 08/20/19 01/21/22 Kenya Sol FNP [address] [place] [address] PCP - General Family Medicine 01/22/22 07/24/22 Emy Askew MD [address] [place] [phone] PCP - General Internal Medicine 07/25/22 documented as of this encounter
--- OUTSIDE RECORDS SUMMARY | 2024-06-26 13:50 | XMS_ITS | Encounter Summary ---
Author Organization [employer] Address [address] [place] [address] [place] [address] Care Team Providers Care Principal Hardware Architect Name Role Phone Emy Askew MD Primary Care Pro vider Reason for Visit * Reason Onset Date Comments Triage 07/31/2022 Encounter Details Date Type Department Care Team ([facility] st Contact Info) Description 07/31/2022 Telephone [facility] MEDICINE [address] [place] [address] Emy Askew MD [address] [place] [address] Triage Social History Tobacco Use Types Packs/Day [...] The caller accepted this outcome Patient speaks ivorian. documented in this encounter Plan of Treatment Upcoming Encounters Date Type Department Care Team (Late st Contact Info) Description 07/16/2024 11:15 AM EDT Office Visit [facility] MEDICINE [address] [place] [address] [phone] Emy Askew MD [address] [place] [address] [phone] documented as of this encounter Visit Diagnoses Not on filedocumented in this encounter Care Teams Principal Hardware Architect Relationship Specialty Start Date End Date Emy Askew MD [address] [place] [address] [phone] PCP - General Internal Medicine 07/25/22 documented as of this encounter
--- OUTSIDE RECORDS SUMMARY | 2024-06-26 13:50 | XMS_ITS | Encounter Summary ---
Author Organization [employer] [facility] Address [address] [place] [address] 7t [place] [address] Care Team Providers Care Water Softener Service Supervisor Name Role Phone [facility] Primary Care Provider [phone] Emy Askew MD Primary Care Pro vider Encounter Details Date Type Department Care Team (Late st Contact Info) Description 03/26/2022 Orders Only [facility] MEDICINE [address] [place], [place] [phone] Lizett Cannon LPN Social History Tobacco Use [...] EDT Office Visit [facility] MEDICINE [address] [place], [place] [phone] Emy Askew MD [address] [place], [place] [phone] documented as of this encounter Visit Diagnoses Not on filedocumented in this encounter Care Teams Water Softener Service Supervisor Relationship Specialty Start Date End Date Kenya Sol FNP [address] [place] [address] PCP - General Family Medicine 01/22/22 07/24/22 Emy Askew MD [address] [place] [address] PCP - General Internal Medicine 07/25/22 documented as of this encounter
--- OUTSIDE RECORDS SUMMARY | 2024-06-26 13:50 | XMS_ITS | Encounter Summary ---
Author Organization [employer] Address [address] 7[address] [place] [address] Care Team Providers Care Cheese Factory Worker Name Role Phone Emy Askew MD Primary Care Pro vider Encounter Details Date Type Department Care Team ([facility] st Contact Info) Description 02/23/2024 Orders Only [facility] MEDICINE [address] [place] [address] Provider, MD Waylon Social History Tobacco Use [...] Description 07/16/2024 11:15 AM EDT Office Visit [facility] [address] [place] [phone] Emy Askew MD [address] [place] [address] documented as of this encounter Procedures Procedure [...] documented as of this encounter Care Teams Cheese Factory Worker Relationship Specialty Start Date End Date Emy Askew MD [address] [place] [address] PCP - General Internal Medicine 07/25/22 documented as of this encounter
== END 2024-06-26 13:07 | disposition home or self-care (01) ==
LOC: HO.CT 13:06
PROVIDERS: PCP Student in an Organized Health Care Education/Training Program; Visit Provider Emergency Medicine
DX: R51.9 Headache, unspecified (principal)
CPT/HCPCS: 70450

== ENCOUNTER → 2024-06-26 13:09 | Outpatient (BNV) | payer OTHER, SELFPAY | PROVIDERS: PCP Student in an Organized Health Care Education/Training Program; Visit Provider Radiology Diagnostic Radiology | DX: R51.9 Headache, unspecified (principal) | CPT/HCPCS: 70450 ==

== ENCOUNTER 2024-07-21 08:15 | Outpatient (REF) | payer OTHER, SELFPAY ==
--- OUTSIDE RECORDS SUMMARY | 2024-07-21 08:28 | XMS_ITS | Encounter Summary ---
Author Organization [employer] Address [address] [facility] 7t [place] [address] Care Team Providers Care Line Lead Name Role Phone Emy Askew MD Primary Care Pro vider Encounter Details Date Type Department Care Team ([facility] st Contact Info) Description 08/07/2023 Orders Only [facility] [address] [place] [address] Valeria Armas FNP [address] [place] [address] Social History Tobacco Use Types Packs/Day Years [...] Care Team (Late st Contact Info) Description 08/17/2024 10:00 AM EDT Clinical Support [facility] MEDICINE [address] [place] [address] 09/11/2024 9:30 AM EDT Office Visit [address] [address] Emy Askew MD [address] [place] [address] documented as of this encounter Visit Diagnoses Not on filedocumented in this encounter Additional Health Concerns Assessment Noted Time PHQ-9 Depression Total Score: 16 023 10:16 AM EDT documented as of this encounter Care Teams Line Lead Relationship Specialty Start Date End Date Emy Askew MD [address] [place] [phone] PCP - General Internal Medicine 07/25/22 documented as of this encounter
--- OUTSIDE RECORDS SUMMARY | 2024-07-21 08:28 | XMS_ITS | Data Portability ---
Author Organization [place] [facility] Address [address] [place] [phone] Assessment No assessment recorded. Plan of Treatment Reminders Order Date Submit Date Provider Last Modified By Organization Details Last Modified Time Details Appointments None recorded. Lab None recorded. Referral None recorded. Procedures None recorded. Surgeries None recorded. Imaging [place], modified barium swallow study [address] [place] [address] Diagnosit Imaging Dept, [address] [place] [address], [address], 5 11:51:40 Medication Orders None recorded. Patient TargetsNo targets recorded. Patient InstructionsNo instructions recorded. Reason for Referral None Reported. Problems Name Problem SNOMED Code Status Onset Date Resolution Date Notes Provider Name and Address Organization Details Recorded Time Dysphagia 75159606 Active 2018 Other dysphagia; Note: Date Diagnosed: 05/13/2018 9:47 AM (R13.19) Not Available [facility] 4 02:27:43 [place] ce of salivary secretion 28135149 Active 2018 Xerostomia ; Note: Date Diagnosed: 05/13/2018 9:47 AM (K11.7) Not Available [facility] 4 02:27:54 Dysphonia 20406347 Active 2017 Hoarseness ; Note: Date Diagnosed: 02/17/2018 9:52 AM (R49.0) Not Available [facility] 4 02:27:44 Chronic sialadeni tis 152028790 Active 2016 Chronic sialoadeni tis; Note: Date Diagnosed: 07/04/2016 2:17 PM (K11.23) Not Available [facility] 4 02:27:48 Sj? ? 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 Diseases of the salivary glands: Hypertroph y; CMS Risk: moderate risk CMS Treatment: establishe d problem (to examiner): stable or improved N ote: Date Diagnosed: 12/30/2013 2:35 PM (527.1) Not Available [facility] 4 02:27:37 Bilateral hearing loss 35734844 Active 2018 Other specified hearing loss, bilateral; Note: Date Diagnosed: 08/12/2018 10:01 AM (H91.8X3) Not Available [facility] 4 02:27:41 Oropharyn geal dysphagia 86683845 Active 2024 UMESH DIAZ MD [address] [place] [address], [phone] , [facility] 5 13:35:47 Problem Notes None recorded. Procedures Surgical History Date Name Laterality Status Provider Name and Address Organization Details Recorded Time 03/13/2024 FFL_RE completed UMESH DIAZ MD [address] [place] [address], [phone], [facility] 03/13/2024 13:36:13 Imaging Results None recorded. Procedure Notes None recorded. Medical Equipment None Reported. Allergies Allergen ID Allergen Name Allergen Category Reaction Reaction Severity Criticality Documentation Date Start Date Code Code System Note Provider Name and Address Organization Details Recorded Time 48801 Bactrim medicatio n other Not available Not available 07/16/2023 72160 9 RxNorm React ion: unkno wn, unspe cifie d;; Not Available [facility] 4 00:55:51 89599 codeine sulfate medicatio n other Not available Not available 07/16/2023 35551 RxNorm React ion: unkno wn, unspe cifie d;; Not Available [facility] 4 00:55:56 Medications Name Sig Start Date Stop Date Status Note LastModified by Organization Details LastModified Time medbox status USE DIRECTED active Not Available Not Available No t Available furosemid e 40 mg tablet TAKE 1 TABLET BY MOUTH EVERY MORNING active Not Available Not Available No t Available Augmentin 875 mg-125 mg tablet 2017 active Medicati on ID: 473936 D uration Value: 5 Prescri bed By [...] nebulizat ion 2018 active Medicati on ID: 076989 D uration Value: 5 Brand Name: albutero [...] mg tablet 2018 active Medicati on ID: 002047 D uration Value: 30 Brand Name: lisinopr [...] mg tablet 2018 active Medicati on ID: 180357 D uration Value: 30 Brand Name: buspiron e Send Method: E-Prescr ibed Sub s Allowed: subs OK Speci al Instruct ion: TAKE 1 TABLET BY MOUTH THREE TIMES DAILY NEEDED ANXIETY Medicati onGeneri cName: buspiron e Not Available Not Available Not Available Tiazac 120 mg capsule,e xtended release 02/04 completed Medicati on ID: 46851 Re ason: () Brand Name: Tiazac S [...] elayed release 2018 active Medicati on ID: 297552 D uration Value: 30 Brand Name: omeprazo le Send Method: E-Prescr ibed Sub s Allowed: subs OK Speci al Instruct ion: TAKE 1 CAPSULE TWICE DAILY IN THE MORNING AND IN THE EVENING 1 HORA AN KALEN DE LAS COMIDAS Medicati onGeneri cName: omeprazo le Not Available Not Available Not Available Aspirin Childrens 81 mg chewable tablet 2013 active Medicati on ID: 73595 Br and Name: Aspirin Children s Send [...] mg tablet 2018 active Medicati on ID: 336234 D uration Value: 30 Brand Name: levon post ne Send Method: E-Prescr ibed Sub s Allowed: subs OK Speci al Instruct ion: TAKE 2 TABLETS BY MOUTH ONCE DAILY IN THE MORNING Medicati onGeneri cName: levon jenkinsqui ne Not Available Not Available Not Available ibuprofen 600 mg tablet 2018 active Medicati on ID: 996193 D uration Value: 30 Brand Name: ibuprofe [...] 24 hr 2018 active Medicati on ID: 166629 D uration Value: 30 Brand Name: metformi n Send Method: E-Prescr ibed Sub s Allowed: subs OK Speci al Instruct ion: TAKE 1 TABLET BY MOUTH TWICE DAILY IN THE MORNING AND IN THE EVENING W ITH FOOD Med icationG enericNa me: metformi n Not Available Not Available Not Available Ambien 5 mg tablet 2013 active Medicati on ID: 16567 Br and Name: Ambien S end Method: [...] mg capsule 2013 active Medicati on ID: 31034 Br and Name: Kade Rivera end Method: [...] inhalatio n 2018 active Medicati on ID: 417257 D uration Value: 30 Brand Name: Breo [...] subcutane ous 2018 active Medicati on ID: 757032 D uration Value: 35 Brand Name: Humulin [...] Updated DateTime 03/13/2024 157.48 cm 26 kg/m2 80433.12 g Shantell Wise [place] [facility] 03/13/2024 13:27:58 Social History None recorded. Functional Status None recorded. Mental Status None recorded. Family History Nothing Reported. Medical History No medical history recorded. Gynecological HistoryNo gynecological history recorded. Obstetrics History GPAL:G 0 P 0 0 0 0 Past Encounters Encounter ID Performer Location Encounter Start Date Encounter Closed Date Diagnosis/Indication Diagnosis SNOMED-CT Code Diagnosis ICD10 Code Diagnosis Note [id number] UMESH DIAZ MD [facility] [address] [place] [phone] 03/13/2024 13:18:07 03/13/2024 13:52:50 Oropharyngeal dysphagia 65230202 R13.12 Exam and laryngosco py were normal. I recommend a swallow study (MBS) to reassess her swallow. F/u after. If normal I would suggest GI referral especially given her Sjogrens. Sj? ? ?gren's syndrome 02973672 M35.00 Encouraged hydration. Will consider GI referral to evaluate esophageal pathology that could effect swallowing after MBS. Health Concerns Section Related Observation LastModified by Organization Detai ls LastModified Time None Recorded Concern Status LastModified by Organization Details LastModified Time None Recorded Advance Directives Directive None Recorded Payers Insurance Date Sequence Insurance Name Policy Number Policy Mendez Covered Member ID Mendez Member ID Guarantor Name 03/13/2024 1 [facility] - DOS ON OR AFTER 2022 - MEDICARE ADVANTAGE [place] (MEDICARE REPLACEMENT/AD VANTAGE - PPO) Jennifer Gu [id number] Jennifer Gu Notes Date Note Type Note [...] eyes and dry mouth. UMESH DIAZ MD [address] [place] [address], [phone], [place] [facility] 03/13/2024 13:43:36 OBGyn Episode No OBEpisode recorded.
--- OUTSIDE RECORDS SUMMARY | 2024-07-21 08:28 | XMS_ITS | Encounter Summary ---
Author Organization [employer] Address [address] [place] [address] Care Team Providers Care End Frazer Name Role Phone Emy Askew MD Primary Care Pro vider Reason for Visit * Reason Onset Date Comments pre-op paperwork 10/18/2022 Encounter Details Date Type Department Care Team ([facility] st Contact Info) Description 10/18/2022 Telephone [facility] MEDICINE [address] [place] [address] Emy Askew MD [address] [place] [address] pre-op paperwork Social History Tobacco Use Types [...] methotrexate and leflunomide??( if ok with her instrument person)-pt to confirm and Cymbalta if taking in am. Hold am of surgery lasix,amytriptiline,lisinopril ??.HoldASA 5 days prior procedure and avoid NSAIDS 7 days prior procedure. Thanks documented in this encounter Plan of Treatment Upcoming Encounters Date Type Department Care Team (Late st Contact Info) Description 08/17/2024 10:00 AM EDT Clinical Support [facility] MEDICINE [address] [place] [address] 09/11/2024 9:30 AM EDT Office Visit [facility] MEDICINE [address] [place] [address] Emy Askew MD [address] [place] [address] documented as of this encounter Visit Diagnoses Not on filedocumented in this encounter Additional Health Concerns Assessment Noted Time PHQ-9 Depression Total Score: 16 09/24/ 023 10:16 AM EDT documented as of this encounter Care Teams End Frazer Relationship Specialty Start Date End Date Emy Askew MD [address] [place] [address] PCP - General Internal Medicine 07/25/22 documented as of this encounter
--- OUTSIDE RECORDS SUMMARY | 2024-07-21 08:28 | XMS_ITS | Encounter Summary ---
Author Organization [employer] Address [address] [place] [address] Care Team Providers Care Bearing Press Machine Operator Name Role Phone Emy Askew MD Primary Care Pro vider Reason for Visit * Reason Onset Date Comments Triage 07/31/2022 Encounter Details Date Type Department Care Team ([facility] st Contact Info) Description 07/31/2022 Telephone [facility] MEDICINE [address] [place] [address] Emy Askew MD [address] [place] [address] Triage Social History Tobacco Use Types Packs/Day [...] The caller accepted this outcome Patient speaks vietnamese. documented in this encounter Plan of Treatment Upcoming Encounters Date Type Department Care Team (Late st Contact Info) Description 08/17/2024 10:00 AM EDT Clinical Support [address] [address] 09/11/2024 9:30 AM EDT Office Visit [address] [address] Emy Askew MD [address] [place] [address] documented as of this encounter Visit Diagnoses Not on filedocumented in this encounter Care Teams Bearing Press Machine Operator Relationship Specialty Start Date End Date Emy Askew MD [address] [place] [address] PCP - General Internal Medicine 07/25/22 documented as of this encounter
--- OUTSIDE RECORDS SUMMARY | 2024-07-21 08:28 | XMS_ITS | Encounter Summary ---
Author Organization [employer] Address [address] [facility] 7t [place] [address] Care Team Providers Care Natural Resources Technician Name Role Phone Emy Askew MD Primary Care Pro vider Encounter Details Date Type Department Care Team ([facility] st Contact Info) Description 02/23/2024 Orders Only [facility] MEDICINE [address] [place] [address] Provider, MD Waylon Social History Tobacco Use [...] Description 08/17/2024 10:00 AM EDT Clinical Support [facility] [address] [place] [phone] 09/11/2024 9:30 AM EDT Office Visit [facility] [address] [place] [address] Emy Askew MD [address] [place] [phone] documented as of this encounter Procedures Procedure [...] documented as of this encounter Care Teams Natural Resources Technician Relationship Specialty Start Date End Date Emy Askew MD [address] [place] [address] PCP - General Internal Medicine 07/25/22 documented as of this encounter
--- OUTSIDE RECORDS SUMMARY | 2024-07-21 08:29 | XMS_ITS | Encounter Summary ---
Author Organization [employer] Address [address] [place] [address] [place] [address] Care Team Providers Care Styrene Dehydration Reactor Operator Name Role Phone Emy Askew MD Primary Care Pro vider Reason for Visit * Reason Comments Med Refill Encounter Details Date Type Department Care Team ([facility] st Contact Info) Description 02/09/2023 Refill [facility] [address] [place] [address] Emy Askew MD [address] [place] [address] Social History Tobacco Use Types Packs/Day Years [...] Description 08/17/2024 10:00 AM EDT Clinical Support [facility] [address] [place] [phone] 09/11/2024 9:30 AM EDT Office Visit [address] [phone] Emy Askew MD [address] [place] [address] documented as of this encounter Visit Diagnoses Not on filedocumented in this encounter Additional Health Concerns Assessment Noted Time PHQ-9 Depression Total Score: 16 023 10:16 AM EDT documented as of this encounter Care Teams Styrene Dehydration Reactor Operator Relationship Specialty Start Date End Date mEy Askew MD [address] [place] [phone] PCP - General Internal Medicine 07/25/22 documented as of this encounter
--- OUTSIDE RECORDS SUMMARY | 2024-07-21 08:29 | XMS_ITS | Encounter Summary ---
Author Organization [employer] Address [address] [place] [address] 7 [place] [address] Care Team Providers Care Brim Stretcher Name Role Phone Kenya Sol SURGERY TECH Primary Care Provider [phone] Emy Askew MD Primary Care Pro vider Encounter Details Date Type Department Care Team (Late st Contact Info) Description 03/26/2022 Orders Only [facility] [address] [place] [address] [phone] Lizett Cannon LPN Social History Tobacco Use [...] Description 08/17/2024 10:00 AM EDT Clinical Support [address] [phone] 09/11/2024 9:30 AM EDT Office Visit [facility] [address] [place] [address] [phone] Emy Askew MD [address] [place] [address] [phone] documented as of this encounter Visit Diagnoses Not on filedocumented in this encounter Care Teams Brim Stretcher Relationship Specialty Start Date End Date Kenya Sol FNP [address] [place] [phone] PCP - General Family Medicine 01/22/22 07/24/22 Emy Askew MD [address] [place] [address] PCP - General Internal Medicine 07/25/22 documented as of this encounter
--- OUTSIDE RECORDS SUMMARY | 2024-07-21 08:29 | XMS_ITS | Encounter Summary ---
Author Organization [employer] Address [address] [place] [address] [place] [address] Care Team Providers Care Desk Pens Assembler Name Role Phone Emy Askew MD Primary Care Pro vider Encounter Details Date Type Department Care Team ([facility] st Contact Info) Description 07/16/2024 11:15 AM EDT Office Visit [facility] [address] [place] [address] Emy Askew MD [address] [place] [address] Hypertension, unspecified type (Primary Dx); Type 2 diabetes mellitus without complication, unspecified whether alf insulin use (CMS/HCC); Rheumatoid arthritis with positive rheumatoid factor, involving unspecified site (CMS/HCC); Severe recurrent major depression without psychotic features (CMS/HCC); Benign essential hypertension; Healthcare maintenance; Alopecia of scalp; Migraine without status migrainosus, not intractable, unspecified migraine type Social History Tobacco Use Types Packs/Day [...] your housing situation today? I have butch sing 11/01/[address] you li [...] Sign Reading Time Taken Comments Blood Pressure 130/90 07/16/2024 11:42 AM EDT Pulse 78 07/16/2024 11:35 AM EDT Temperature 36.3 ??C (97.4 ??F) 07/16/2024 11:35 AM E DT Respiratory Rate 19 07/16/2024 11:35 AM EDT Oxygen Saturation - - Inhaled Oxygen Concentration - - Weight 60.8 kg (134 lb) 07/16/2024 11:35 AM EDT Height 157.5 cm (5' 2 ) 07/16/2024 11:35 AM EDT Body Mass Index 24.51 07/16/2024 11:35 AM EDT documented in this encounter Progress Notes * Emy Goldsmith MD - 07/16/2024 11:15 AM EDT Subjective Patient ID: Jennifer Palmer is a 63 y.o. female who presents for f up apt HPI [employer] 63 y.o. F w PMHx of SOY not using CPAP, COPD/asthma, Uncontrolled HTN, GERD DM2, HLD, RA, Sjogren, depression - f w psychiatrist Comes for f up apt she is very sad after grand daughter's in April 2024. Since then losing hair ,similar episode occurred years ago after stressful situation Assessment and Plan: Health care maintenance -Annual exam done 11/2023 -Menopause: 50 y of age -Pap smear 05/2023 neg /HPV neg Kathryn R repeat in 5 y -MM 03/2024 BIRADS 1 -Colonoscopy 05/2023 suspected melanosis coli ,internal hemorrhoids-Repeat Colonoscopy in 1 year dueto fair prep -will check w pt at next apt -DEXA scan 09/2023 Normal bone density based on the lowest T-score value of 0.3 in the femoral neck applying -Vaccines s/p Hep B x 3 - not immune, refusing revaccination, Covid x 4 - Biv x1 -last booster 03/2023-advised booster -refused , P13 x 1,s/p P20 09/2022 , Tdap 2016, Shingrix x 2 ,RSV vaccine 05/2023 ----- - Advised patient to bring at next appointment med box and all medications and bottles DM2 -today Cbg 104, Hb1ac 7.8 -12/25/2023 hb1C 8.2,Trig 232 , total ch 154 LDL 64 , HDL 44 <---HbA1C 8.2<---7.8<---8.2<---8.7, total ch 157<--169, trig 298<--324( in fasting) ,HDL 36,LDL 62<-- 69 -12/25/2023 Microalb 155.3 from neg -composing room machinist apprentice seen 01/08/2024 w no diabetic retinopathy -hose tester seen 07/2024 To f in 09/2024 Not on metformin for GI SE -per pt even in low doses -Endo seen in 06/2024 Increase Ozempic to 2 mg weekly-to f in 08/2024 -continue Farxiga 10 mg daily -Continue atorvastatin 20 mg daily -advised pt to bring her CBGs at next visit -if no major improvement may need to consider to change to Mounjaro -px continuous bood glucose monitoring but not covered by insuance HTN Borderline today -EKG 03/2023 : HR 77, QTC 435 ,left axis deviation, only noted TWI in lead aVL rest normal - Holter 2019 neg. -stress test 2019 : nondiagnostic EKG For ischemia. 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 No hemodynamically significant renal artery stenosis is noted bilaterally. -repeat microalb at next pt in 3 mo , pt on ARBS already -continue losartan 100 mg daily .clonidine to 0.2 mg BID , amlodipine 5 mg BID by her cards and stopped cardiazem, by cards Lasix 20 mg daily given by cardio in the past for unclear reasons.---advised pt to bring all med at next apt bottles and medbox --saw Card in 03/2024 -Pt f w Cards -Dr Watkins -advised to continue care -order metanephrines urine,plasma today again for uncontrol HTN -will call pt w results SOY not using CPAP-refusing to use machine Asthma -controlled on NIALL PRN using twice a week ,refuse to use breo ellipta for mouth taste -check w pt next time and may see w pharmacy if other options are less bothersome -states saw pulm before but lost care Overweight -Advised pt to improve diet and exercise,discussed healthy life style -nursery attendant referred -seen already -decrease weight since in GLP1 Sialoadenitis of submandibular gland Neck CT 02/12/2019:No suspicious or enlarged cervical lymph nodes are seen within theneck. An 8 mm low-attenuation lesion is noted in the central aspect of the right palatine tonsil. Direct visual inspection of this lesion is recommended. Atrophy of the bilateral salivary glands noted. -Pt saw ENT in the past - no mention about CT finding. And pt reports was referred by ENT for further eval in [place] but never went -referred again to ENT to continue care -Got apt for 03/13/24 --will check w pt if she was seen? Rheumatoid arthritis with positive rheumatoid factor Pt w RA / Sjogren's disease, follows w teller coordinator -Continue care w specialist--f rheumatology 01/2024 -on leflunomide ,also getting gabapentin and folic acid by her teller coordinator Sjogren's syndrome -CT neck 2019: Atrophy of the bilateral salivary glands noted. Pt following with teller coordinator. Pt w consistently dry mouth. From med list, not on Rx to help w that. -cevimeline TID -pt on Cymbalta which can cause dry mouth -pt will need to discuss w her psychiatrist about possibility of changing meds as well do not rec BZD that can be causing worsening memory -will discuss w ptat next apt Bilateral post-traumatic osteoarthritis of knee -left knee MRI wo contrast 2019 Degeneration and attritional wear of the posterior horn and body of the medial meniscus with ill-defined inner margin tearing of the extruded meniscal body.Moderate-severe medial compartment and mild patellofemoral/lateral compartment osteoarthritis. Small Carrion's cyst. No significant joint effusion. No acute osseous abnormality. -Right knee MRI wo contrast 2019: Moderate medial compartment osteoarthritis and more mild osteoarthritis in the patellofemoral compartment.Moderate-sized joint effusion. Intact menisci. -bl knee XR 10/2022 By ortho: severe medial compartment arthritis -saw Orthopedic in 05/2024 : Bilateral knee arthritis and right peroneal tendonitis that is chronic.She still does not want TKA although she has severe OA and is limping daily. After discussion we injected bilateral knees - Tylenol PRN and advise against chronic NSAID use Sprain of right ankle -right ankle XR 05/2022 :Subtle cortical irregularity of the distal lateral fibula. Recommend clinical correlation with point tenderness for possible minimally displaced fracture. -MRI right ankle by orthopedic 10/2022 : Prominent irregular partial tearing of peroneal brevis tendon - Referred to ortho-seen already and recommended for surgery.preop was done but pt wanted to hold on surgery - Tylenol PRN Severe recurrent major depression without psychotic features/insomnia PHQ9 10, ISAI 6, no SI she is very sad after grand daughter's in April 2024. Since then losing hair ,similar episode occurred years ago after stressful situation -Pt following w psychiatrist and therapist at [facility]. -Denies SI but has thoughts to be better off . -Takes clonazepam 2 tab at night and trazodone higher dose by psychiatrist Renal cyst -Renal US 12/2022: Right kidney : 1.3 x 1.0 x 1.3 cm medial right interpolar cyst with dense peripheral calcification. A 0.7 x 0.8 x 1.1 cm medial right renal cyst with dense calcification. No obstructing renal calculi. A few tiny scattered echogenic foci may represent artifact, vascular calcification or less likely nonobstructive calculi. Impression: Mild bilateral borderline diffuse renal cortical thinning. Bilateral tiny scattered echogenic foci may represent artifact, vascular calcification or less likely nonobstructive calculi. Nohydronephrosis. Right renal cysts with associated dense calcifications were not identified on ultrasound of 01/13/2014. CT scan recommended for further evaluation. -CT abdomen wo/w IV con 04/16/23 : No adrenal mass. The kidneys are symmetric in size and enhance normally. There are multiple bilateral hypodensities the majority of which are subcentimeter. Right mid pole hypodensity measuring 1.0 x 1.2 cm exhibits mild enhancement. Right lower pole hypodensity measuring 0.8 x 1.1 cm exhibits mild enhancement. Left medial midpole hypodensity measures 2.5 x 2.5 cm. No significant postcontrast enhancement. No further routine imaging follow-up is needed. Delayedimages demonstrate intact renal function. No hydronephrosis or perinephric fluid collection. LYMPH NODES: Peripancreatic lymph nodes measures 0.9 x 1.4 cm and 1.2 x 1.5 cm. --IMPRESSION: Right renal h ypodensities exhibit mild postcontrast enhancement. This may be technical given the small size of the lesions. Bosniak IIF. Short interval follow-up in 6 months is recommended. Prominent peripancreatic lymph nodes measuring 0.9 x 1.4 cm and 1.2 x 1.5 cm. No peripancreatic stranding or peripancreatic fluid collections. This bears watching on follow-up imaging. -Renal Doppler US 06/2023 Unremarkable renal ultrasound including Doppler. No hemodynamically significant renal artery stenosis is noted bilaterally. At the interpolar right kidney, 1.5 cm and 0.7 cm benign, simple cysts are seen, which require no imaging follow-up. At the interpolar aspect of the left kidney, a 2.7 cm benign, simple cyst, which requires no imaging follow-up. -Repeat CT abd w contrast for peripancreatic LND -ordered already ,-advised pt to get test done Poor memory -Per RN evaluation 03/2023 Patient scored a 26 out of a possible 30 points. This is considered decreased odds of dementia. 04/2023 Vit B12 ,folic acid wnl -Will monitor minimental prior next apt --requested today to staffing operations manager -advised to improve diet,exercise and memory exercises -will advise at next apt to f w neurologist and will need to reconsider her meds w psychiatrist, pton BZD that can worsen memory Migraine FLOWER -CT head/brain wo IV con 06/2024 periventricular and subcortical white matter hypodensities which are nonspecific, but often seen in the setting of small vessel ischemic disease.No acute intracranial abnormality. -F w neuro w Dr Salgado for FLOWER started on topiramate 25 mg daily . To f in 1 mo Elevated Alk Phos -12/25/2023 Alk phos 121,bone alk phos wnl ,GGT wnl . PTH elevated ,Vit D wnl -DEXA scan 09/2023 Normal bone density based on the lowest T-score value of 0.3 in the femoral neck applying -referred to Dial Maker w elevated PTH w no clear etiology ---in current evaluation Increase urinary frequency Urine dipstick gluc 500 ,ketones neg , blood neg prtoein neg nitrates and LE neg -possible symptoms associated w uncontrolled DM -will f up symptom next apt Neck pain -XR cervical spine 06/2024 :Grade 1 anterolisthesis C5-6. -Has apt for 08/2025 for neck pain f up Back pain -XR hip LT 03/2024: Mild osteoarthrosis without acute fracture or dislocation, left hip. -XR sacroiliac joint 03/2024:No acute fractures. No gross sacroiliitis by x-ray. -f w specialist -Increased in 01/2024 gabapentin to 400 mg BID by her teller coordinator from note Alopecia she is very sad after grand daughter's in April 2024. Since then losing hair ,similar episode occurred years ago after stressful situation -start biotin 5 mg daily -pd to see inspector missile - in the past had scalp inj which helped Review of Systems Constitutional: Negative. Skin: Hair loss Psychiatric/Behavioral: Positive for behavioral problems. Negative for suicidal ideas. Objective BP (!) 130/90 (BP Location: Left arm, Patient Position: Sitting, BP Cuff Size: Adult) Pulse 78 Temp 97.4 ??F (36.3 ??C) (Temporal) Resp 19 Ht 5' 2 (1.575 m) Wt 134 lb (60.8 kg) BMI 24.51kg/m?? Physical Exam Constitutional: General: She is not in acute distress. Appearance: Normal appearance. Skin: Comments: Generalized alopecia Neurological: Mental Status: She is alert. Assessment/Plan Problem List Items Addressed This Visit Benign essential hypertension Migraine Relevant Medications topiramate (Topamax) 25 MG tablet gabapentin (Neurontin) 400 MG capsule Severe recurrent major depression without psychotic features (CMS/HCC) Relevant Medications topiramate (Topamax) 25 MG tablet Type 2 diabetes mellitus without complication (CMS/HCC) Relevant Orders POCT Glucose (Completed) POCT HGB A1C (Completed) Rheumatoid arthritis with positive rheumatoid factor (CMS/HCC) Healthcare maintenance Alopecia of scalp Other Visit Diagnoses Hypertension, unspecified type - Primary Relevant Orders Metanephrines, Fractionated, LC/MS/MS, Random Urine Metanephrines, Fractionated, Free, LC/MS/MS, Plasma documented in this encounter Plan of Treatment Upcoming Encounters Date Type Department Care Team (Late st Contact Info) Description 08/17/2024 10:00 AM EDT Clinical Support [facility] [address] [place] [address] [phone] 09/11/2024 9:30 AM EDT Office Visit [facility] [address] [place] [address] [phone] Emy Askew MD [address] [place] [phone] Scheduled Orders Name Type Priority Associated Diagnoses Orde r Schedule Metanephrines, Fractionated, LC/MS/MS, Random Urine Lab Routine Hypertension, unspecified type Expected: 07/16/2024 (Approximate), Expires: 07/16/2025 Metanephrines, Fractionated, Free, LC/MS/MS, Plasma Lab Routine Hypertension, unspecified type Expected: 07/16/2024 (Approximate), Expires: 07/16/2025 documented as of this encounter Procedures Procedure Name Priority Date/Time Associated Diagnosis Comments POCT GLYCATED HEMOGLOBIN, TOTAL Routine 07/16/2024 11:38 AM EDT Type 2 diabetes mellitus without complication, unspecified whether oil heaterman insulin use ([facility]) POCT GLUCOSE Routine 07/16/2024 11:37 AM EDT Type 2 diabetes mellitus without complication, unspecified whether alf insulin use ([facility]) documented in this encounter Results * (ABNORMAL) POCT HGB A1C (07/16/2024 11:38 AM EDT) Hemoglobin A1C 7.8(A) 4.0 - 6.0 % QC Media Lot # [id number] Lot# Expiration Date Blood 07/16/2024 11:3 8 AM EDT Emy Goldsmith MD POINT OF CARE KALEN T ENTER/EDIT ORDERABLES Final Result * POCT Glucose (07/16/2024 11:37 AM EDT) Glucose Blood, POC 104 60 - 200 mg/dL Comment:Random QC Media Lot # [id number] Lot# Expiration Date Blood Capillary blood specimen / Unknown 07/16/2024 11:37 AM EDT Emy Goldsmith MD POINT OF CARE KALEN T ENTER/EDIT ORDERABLES Final Result documented in this encounter Visit Diagnoses Diagnosis Hypertension, unspecified type- Primary Type 2 diabetes mellitus without complication, unspecified whether oil heaterman insulin use ([facility]) Rheumatoid arthritis with positive rheumatoid factor, involving unspecified site ([facility]) Severe recurrent major depression without psychotic features ([facility]/HCC) Major depressive disorder, recurrent episode, severe, without mention of psychotic behavior Benign essential hypertension Essential hypertension, benign Healthcare maintenance Alopecia of scalp Migraine without status migrainosus, not intractable, unspecified migraine type documented in this encounter Additional Health Concerns Assessment Noted Time PHQ-9 Depression Total Score: 10 024 2:37 PM EDT documented as of this encounter Care Teams Desk Pens Assembler Relationship Specialty Start Date End Date Emy Askew MD [address] [place] [address] PCP - General Internal Medicine 07/25/22 documented as of this encounter
--- OUTSIDE RECORDS SUMMARY | 2024-07-21 08:29 | XMS_ITS | Data Portability ---
Author Organization [employer] [facility], [place] [facility] [employer] Address [address] [place] [address] Care Team Providers Care Engineer Fishing Vessel Name Role Phone HIM [facility] OTHER [employer] OTHER Assessment Encounter Date Assessment Date Assessment LastModified by Organization Details LastModified Time 04/13/2024 04/13/2024 As noted, we were called to see this patient regarding concerns of URI symptoms. Evaluation in the field was performed by my turbine measurements engineer colleague, as noted above, I provided real-time [...] 2024 025 [email or web address] [facility] [place] [facility], [address] [place] [address], [phone] 14:42:18 rapid flu (A+B) 2024 025 [email or web address] [facility] [place] [facility], [address] [place] [address], [phone] 5 14:42:21 Referral None recorded. Procedures None [...] Name and Address Organization Details Recorded Time 76175 codeine medicatio n Not available Not available Not available 04/13/2024 2670 RxNorm Not Available [facility] 5 09:12:08 08180 Bactrim medicatio n Not available Not available Not available 04/13/2024 03505 9 RxNorm Not Available [facility] - production 5 09:12:08 18740 sulfameth oxazole medicatio n Not available Not available Not available 04/13/2024 39008 RxNorm Not Available [facility] - production 5 09:12:08 66273 trimethop rim medicatio n Not available Not available Not available 04/13/2024 55791 RxNorm Not Available [facility] 5 09:12:08 Medications Name Sig [...] SNOMED-CT Code Diagnosis ICD10 Code Diagnosis Note [id number] Sebastian Vanessa MD Main - [facility] [address] [place] [phone] 04/13/2024 14:39:43 04/13/2024 21:52:34 Viral upper respiratory tract infection 577633671 J06.9 Health Concerns Section Related Observation LastModified by Organization Detai ls LastModified Time None Recorded Concern Status LastModified by Organization Details LastModified Time None Recorded Advance Directives Directive None Recorded Payers Insurance Date Sequence Insurance Name Policy Number Policy Mendez Covered Member ID Mendez Member ID Guarantor Name 04/22/2024 1 [facility] - DOS ON OR AFTER 2022 - DUAL ELIGIBLE - [facility] OPTIONS AND ONE CARE (MEDICARE REPLACEMENT/ADV ANTAGE - HMO) Jennifer Gu [id number] Jennifer Gu Notes Date Note Type Note [...] at 04/13/2024 - 09:12 Comments: HPI reviewed Order Runner Organization Information for Emanuel Paige Legal Name: [employer] Address: [address] [place] [address], Electric Vehicle Electrician: Vinny Delgadillo MD CLIA No.: [id number] Order Runner POC Test Results from Emanuel Paige - ALS Rapid influenza antigen (14:32:34) Flu: - Rapid COVID antigen (14:32:35) COVID: - ...................... ...................... ...................... ...................... ...................... ...................... ......... Order Runner Note From Emanuel Paige: Dispatch to the [...] test negative, rapid flu test positive negative. [facility] consulted. Red flags discussed. All times are approximate. ...................... ...................... ...................... ...................... ...................... ...................... ......... [facility] Consulted: Sebastian Vanessa ...................... ...................... ...................... ...................... ...................... ...................... ......... Disposition: Fulfilled Sebastian Vanessa MD [address] [place] [address],[address], [place], [phone], [employer] [facility] 04/13/2024 15:34:43 OBGyn Episode No OBEpisode recorded.
--- OUTSIDE RECORDS SUMMARY | 2024-07-21 08:29 | XMS_ITS | Encounter Summary ---
Author Organization [employer] Address [address] [place] [address] Care Team Providers Care Director Communications Name Role Phone Cyn Bosch MD Primary Care Provider [facility] Primary Care Provider [phone] Emy Askew MD Primary Care Pro vider Encounter Details Date Type Department Care Team (Latest Contact Info) Description 10/26/2021 Abstract [facility] CONVERSIONS Dental, Provider, DDS Social History [...] Care Team ( st Contact Info) Description 08/17/2024 10:00 AM EDT Clinical Support [address] [phone] 09/11/2024 9:30 AM EDT Office Visit [address] [phone] Emy Askew MD [address] [place] [address] [phone] documented as of this encounter Visit Diagnoses Not on filedocumented in this encounter Care Teams Director Communications Relationship Specialty Start Date End Date Cyn Bosch MD PCP - General Family Medicine 08/20/19 01/21/22 [place] FNP [address] [place] [address] PCP - General Family Medicine 01/22/22 07/24/22 Emy Askew MD [address] [place] [address] PCP - General Internal Medicine 07/25/22 documented as of this encounter
--- OUTSIDE RECORDS SUMMARY | 2024-07-21 08:29 | XMS_ITS | Encounter Summary ---
Author Organization [employer] Address [address] [place] [address] [address] [place] [address] Care Team Providers Care Disability Benefits Specialist Name Role Phone [facility] Primary Care Provider [phone] Emy Askew MD Primary Care Pro vider Reason for Visit * Reason Onset Date Comments Appointment Request 06/07/2022 Encounter Details Date Type Department Care Team ([facility] st Contact Info) Description 06/07/[address] [facility] [address] [place] [address] [facility] [address] [place] [address] Appointment Request Social History Tobacco Use Types [...] with new provider. Please contact pt at [phone] documented in this encounter Plan of Treatment Upcoming Encounters Date Type Department Care Team (Late st Contact Info) Description 08/17/2024 10:00 AM EDT Clinical Support [address] [address] 09/11/2024 9:30 AM EDT Office Visit [address] [address] Emy Askew MD [address] [place] [phone] documented as of this encounter Visit Diagnoses Not on filedocumented in this encounter Care Teams Disability Benefits Specialist Relationship Specialty Start Date End Date Kenya Sol FNP [address] [place] [phone] PCP - General Family Medicine 01/22/22 07/24/22 Emy Askew MD [address] [place] [id number] PCP - General Internal Medicine 07/25/22 documented as of this encounter
--- OUTSIDE RECORDS SUMMARY | 2024-07-21 08:29 | XMS_ITS | Encounter Summary ---
Author Organization [employer] Address [address] [place] [address] Care Team Providers Care Panel Edge Painter Name Role Phone Cyn Bosch MD Primary Care Provider [facility] Primary Care Provider [phone] Emy Askew MD Primary Care Pro vider Encounter Details Date Type Department Care Team (Latest Contact Info) Description 05/09/2020 Abstract [facility] CONVERSIONS Dental, Provider, DDS Social History Tobacco [...] Description 08/17/2024 10:00 AM EDT Clinical Support [address] [id number] 09/11/2024 9:30 AM EDT Office Visit [address] [id number] Emy Askew MD [address] [place] [address] [phone] documented as of this encounter Visit Diagnoses Not on filedocumented in this encounter Care Teams Panel Edge Painter Relationship Specialty Start Date End Date Cyn Bosch MD PCP - General Family Medicine 08/20/19 01/21/22 [place] F[place] [address] [place] [address] PCP - General Family Medicine 01/22/22 07/24/22 Emy Askew MD [address] [place] [address] PCP - General Internal Medicine 07/25/22 documented as of this encounter
--- OUTSIDE RECORDS SUMMARY | 2024-07-21 08:29 | XMS_ITS | Clinical Summary ---
Author Organization [employer] Address [address] [place] [address] [address] [place] [address] Care Team Providers Care Test Operator Name Role Phone Emy Askew MD [...] mg by mouth in the morning. Active FREESTYLE LITE test stripIndications: Type 2 diabetes mellitus with hyperglycemia (CMS/HCC),Type 2 diabetes mellitus without complications (CMS/HCC) TEST BLOOD SUGAR FOUR TIMES DAILY 100 strip Active FreeStyle lancets 1 each by Other route at noon and 1 each in the evening. Test blood sugar 4 times a day. 100 each 11 2024 Active estradiol (Estrace) 0.1 MG/GM vaginal [...] and 5 mg in the evening. 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 insulin use (CMS/[facility]) USE DIRECTED FIVE TIMES DAILY 100 each 5 025 Active cloNIDine (Catapres) 0.2 MG tablet TAKE 1 TABLET BY MOUTH TWICE DAILY IN THE MORNING AND IN THE EVENING 60 tablet 3 025 Active BD Pen Needle Jammie U/F 32G X 4 MM miscIndications:T ype 2 diabetes mellitus without complication, with long-term current use of insulin ([facility]) USE THREE TO FOUR TIMES DAILY DIRECTED [...] DAY NEEDED FOR ALLERGIES 90 tablet 1 03/10/2 025 Active atorvastatin (Lipitor) 20 MG tablet TAKE 1 TABLET BY MOUTH AT BEDTIME 90 tablet 025 Active cevimeline (Evoxac) 30 MG capsule TAKE 1 CAPSULE BY MOUTH 3 TIMES A DAY 270 capsule 025 Active biotin 5 MG tablet Take 1 tablet (5 mg) by mouth Once per day. 90 tablet 1 025 Active bisacodyl (Dulcolax) 5 MG EC tablet TAKE 4 TABLETS BY MOUTH ONCE DIRECTED BY DOCTOR Active topiramate (Topamax) 25 MG tablet Active gabapentin (Neurontin) 400 MG capsule Take 1 capsule by mouth 2 times daily. 025 Active gabapentin (Neurontin) 300 MG capsule Take 300 mg by mouth 2 times daily. By psych 2024 Discontinued(O ther) sodium chloride ([place] Nasal [place]) 0.65 % nasal spray Administer 1 spray into each nostril if needed for congestion. 30 mL 2 024 2024 atorvastatin (Lipitor) 20 MG tablet Take 1 tablet (20 mg) by mouth at bedtime. 90 tablet 1 024 2024 Discontinued cevimeline (Evoxac) 30 MG capsule TAKE 1 CAPSULE (30 MG) BY MOUTH 3 TIMES DAILY. 90 capsule 025 2024 Discontinued ibuprofen 400 MG tabletIndications :Neck pain Take 1 tablet (400 mg) by mouth every 6 (six) hours if needed for moderate pain or fever for up to 30 doses. 15 tablet 025 2024 Discontinued(O ther) oxyCODONE (Roxicodone) 5 MG immediate release tabletIndications :Neck pain Take 1 tablet (5 mg) by mouth every 6 (six) hours if needed for severe pain. 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 Denies SI but has thoughts to be better off . - Continue care w specialist - Pt requests information to be able to change to an old age home --already received information -in process per pt Assessment & Plan (10/23/2022 5:23 PM EDT): Pt following w psychiatrist and therapist at [facility]. Denies SI but has thoughts to be better off . - Continue care w specialist - Pt requests information to be able to change to an old age home --already received information -in process per pt Assessment & Plan (09/24/2022 8:32 PM EDT): Pt following w psychiatrist and therapist at [facility]. Denies SI but has thoughts to be better off . - Continue care w specialist - Pt requests information to be able to change to an old age home -- I spoke w registered nurse hh case manager today and they will come to speak w pt to give info. Was told that there is no need to refer to CM for this. Type 2 diabetes mellitus without complication Assessment & Plan (12/06/2022 6:16 AM EDT): 09/2022 HbA1C 8.2<---8.7, CBG 248., total ch 169, trig 324( in fasting) ,HDL 36,LDL 69, Microalb neg Used to follow w [facility] and silverware salesperson, but lost care. Not on metformin for [...] - to f in 1 y. - Personal Counselor: seen in 11/2022 Assessment & Plan (10/23/2022 5:46 PM EDT): 09/2022 HbA1C 8.2<---8.7, CBG 248., total ch 169, trig 324( in fasting) ,HDL 36,LDL 69, Microalb neg Used to follow w [facility] and silverware salesperson, but lost care. Not on metformin for [...] - to f in 1 y. - Personal Counselor: referred today Assessment & Plan (09/24/2022 8:51 PM EDT): Today HbA1C 8.7, CBG 248. Used to follow w [facility] and silverware salesperson, but lost care. - DM2 labs. - Will consider increasing Trulicity at her next appt. - Pt not currently on Metformin, but used to be in the past. Will check at her next appt, and if she can tolerate it, will resume Rx. - Ophthalmology 07/2022 - to f in 1 y. - Personal Counselor: will refer at next visit. Varicose veins of lower extremity 07/08/2017 Assessment & Plan (10/23/2022 5:12 PM EDT): Pt w lower extremity edema trace from 1+ before , possibly from Cardiazem and venous insufficiency. - Advised to use compression stockings,--started using with noted improved LE edema -I confirmed today w her iron handler-Dr Watkins #[phone] that pt does not have CHF and [...] (12/06/2022 6:19 AM EDT): Pt following with side seam envelope machine operator. Pt w consistently dry mouth. From [...] for unclear reasons. - PT following w iron handler actively w on and off chest discomfort. [...] mg in pm - PT following w iron handler -will f BP in next 3 to 4 weeks Assessment & Plan (09/24/2022 8:43 PM EDT): BP slightly elevated at 144/94 - Holter 2019 neg. -echocardiogram 2018The left ventricular systolic function is normal. The visually estimated ejection fraction is between 60-65%. -stress test 2019 : nondiagnostic EKG For ischemia. - Will monitor BP manually at next visit. - PT following w iron handler Chronic constipation 12/24/2016 Gastroesophageal reflux disease without esophagi tis 12/24/2016 Hyperlipidemia associated with type 2 diabetes m gaviotaitus 12/24/2016 Migraine 12/24/2016 Resolved Problems Problem Noted [...] in 2016 here . I called her iron handler today and he reports last EKG was normal as well [employer] -Dr Watkins states given QTC < 500 [...] and leflunomide ( if ok wit her side seam envelope machine operator)-pt to ask and Cymbalta if taking in am. Hold am of surgery lasix,amytriptiline,lisinopril .Hold ASA 5 days prior procedure and avoid NSAIDS 7 days prior procedure. -will rec to have post op EKG as rec by her iron handler for noted prolonged QTC -will rec to [...] Encounters Date Type Department Care Team Description 07/16/2024 11:15 AM EDT Office Visit [facility] [address] [place] [id number] Emy Askew MD Hypertension, unspecified type (Primary Dx); Type 2 diabetes mellitus without complication, unspecified whether long-term insulin use (CMS/HCC); Rheumatoid arthritis with positive rheumatoid factor, involving unspecified site (CMS/HCC); Severe recurrent major depression without psychotic features (CMS/HCC); Benign essential hypertension; Healthcare maintenance; Alopecia of scalp; Migraine without status migrainosus, not intractable, unspecified migraine type 07/16/2024 Travel 07/15/[address] [address] Emy Askew MD chartprep 07/13/2024 Refill [facility] [address] [place] [phone] Florin Hammond MD 07/02/2024 Refill [facility] [address] [place] [address] Emy Askew MD 06/30/2024 Orders Only [facility] [address] [place] [phone] Mehul Alexis MD Neck pain (Primary Dx); Acute intractable headache, unspecified headache type 06/29/2024 Telephone [facility] [address] [place] [phone] Emy Askew MD Results 06/20/2024 Orders Only GENERIC EXTERNAL DATA DEPARTMENT Provider, Generic External Data 06/19/2024 10:15 AM EDT Office Visit [address] [address] Lori Granados FNP Alopecia of scalp (Primary Dx) 06/19/2024 Travel 06/19/[address] [address] Lori Granados FNP Chart Prep 06/18/[address] [address] Emy Askew MD Nurse Triage 06/16/2024 Orders Only GENERIC EXTERNAL DATA DEPARTMENT Provider, Generic External Data 06/11/2024 Telephone [facility] [address] [place] [address] Mehul Alexis MD Results 06/10/2024 8:40 AM EDT Office Visit [facility] [address] [place] [address] Mehul Alexis MD Neck pain (Primary Dx); Acute intractable headache, unspecified headache type 06/10/2024 Telephone [facility] [address] [address] Mehul Alexis MD 06/10/2024 Orders [facility] [address] [address] Mehul Alexis MD 06/04/2024 10:00 AM EDT [facility] [address] [address] Kaden Jaime MD Pharyngitis, unspecified etiology (Primary Dx) 05/27/[address] [address] Alden Cai CNM Results 05/26/2024 1:00 PM EDT Office Visit [address] [address] Alden Cai CNM Visit for pelvic exam (Primary Dx); Vulvar itching 05/26/2024 Travel 05/20/2024 Refill [facility] [address] [place] [address] Dorinda Barajas ANP 05/10/[address] [address] Emy Askew MD Benign essential hypertension 05/05/2024 Refill [facility] [address] [place] [address] Emy Askew MD Chronic constipation 04/28/2024 Refill [facility] [address] [place] [address] Emy Askew MD Type 2 diabetes mellitus without complication, with long-term current use of insulin ([facility]) from Last 3 Months Immunizations Immunization Administration Dates Next Due Hep B, adult [...] 19 07/16/2024 11:35 AM EDT Oxygen Saturation 96% 06/19/2024 10:10 AM EDT Inhaled Oxygen Concentration - - Weight 60.8 kg (134 lb) 07/16/2024 11:35 AM EDT Height 157.5 cm (5' 2 ) 07/16/2024 11:35 AM EDT Body Mass Index 24.51 07/16/2024 11:35 AM EDT Plan of Treatment Upcoming Encounters Date Type Department Care Team (Late st Contact Info) Description 08/17/2024 10:00 AM EDT Clinical Support [facility] [address] [place] [phone] 09/11/2024 9:30 AM EDT Office Visit [facility] [address] [place] [address] [phone] Emy Askew MD [address] [place] [address] [phone] Health Maintenance Due Date Last Done Comments [...] 2023 , 12/15/2020, 12/01/2019, Additional history exists Colonoscopy 05/08/2024 05/09/2023 Colorectal Cancer Screening 05/08/2024 Dental X-Ray: Bitewings 06/10/2024 06/10/19 24, 03/01/2023, 10/26/2021, Additional history exists Diabetes: Hemoglobin A1C 10/16/2024 025, 12/25/2023, 06/26/2023, Additional history exists SDOH Screening 10/31/2024 11/01/2023 Depression Screening 11/11/2024 11/12/2023, 11/12/19 Diabetes: Urine Protein Screening 12/24/2024 12/25/2023, 10/04/2022, 12/21/2020, Additional history exists Lipid Panel 12/24/2024 12/25/2023, 020 03/2023, 10/04/2022, Additional history exists Alcohol/Substance Use Screening 01/12/2025 01/13/2024 Mammogram 03/17/2025 03/17/2024, 11/03, 07/28/2021, Additional history exists Tobacco Screening 07/16/2025 07/16/2024 Eye Exam 01/07/2026 01/08/2024, 1108/2023, 01/08/2024, Additional [...] 2 diabetes mellitus without complication, unspecified whether long-term insulin use ([facility]) POCT GLUCOSE Routine 07/16/2024 11:37 AM EDT Type 2 diabetes mellitus without complication, unspecified whether long-term insulin use ([facility]) AMB REFERRAL TO NEUROLOGY Routine 07/14/2024 Acute intractable headache, unspecified headache type CT HEAD WO CONTRAST Urgent 06/26/2024 1 :09 PM EDT Acute intractable headache, unspecified headache type LIPASE Routine 06/20/2024 11:25 PM EDT COMPREHENSIVE [...] TOMOSYNTHESIS BILATERAL Routine 03/17/2024 1:00 PM EST LIPID PANEL, STANDARD Routine 12/25/2023 7:08 AM EDT Annual physical exam ALBUMIN, RANDOM URINE W/CREATININE Routine 12/25/2023 7:05 AM EDT Annual physical exam BITEWING - SINGLE RADIOGRAPHIC IMAGE Routine 06/10/2023 3:30 PM EDT Periodontal disease Fractured dental worship with loss of material HPV MRNA E6/E7 [...] Relevant to Health Maintenance Results * (ABNORMAL) POCT HGB A1C (07/16/2024 11:38 AM EDT) Hemoglobin A1C 7.8(A) 4.0 - 6.0 % QC Media Lot # [id number] Lot# Expiration Date ,026 Blood 07/16/2024 11:3 8 AM EDT Emy Goldsmith MD POINT OF CARE KALEN T ENTER/EDIT ORDERABLES Final Result * POCT Glucose (07/16/2024 11:37 AM EDT) Glucose Blood, POC 104 60 - 200 mg/dL Comment:Random QC Media Lot # [id number] Lot# Expiration Date ,025 Blood Capillary blood specimen / Unknown 07/16/2024 11:37 AM EDT Emy Goldsmith MD POINT OF CARE KALEN T ENTER/EDIT ORDERABLES Final Result * Referral to Neurology (07/14/2024) Mehul Alexis MD OUTPATIENT REFERRAL ORDERABLES F inal Result * CT Head w/o Contrast (06/26/2024 1:09 PM EDT) Anatomical Region Laterality Modality Head, Neck Computed Tomogra phy 06/26/2024 1:09 PM EDT Narrative 06/26/2024 2:06 PM EDT ? [facility] ?[address] ?[place] [address] ? CT Scan Report ? Signed ? Patient: Palmer,Jennifer ?MR#: [id number] ?? 0 ? : 1960 ?Acct:[id number] ? Age/Sex: 63 / F ?ADM Date: 04/25/25 ? Loc: HO.CT ? Attending Dr: Mehul Alexis MD ? Ordering Physician: MEHUL ALEXIS MD ?? Date of Service: 06/26/24 ?? Procedure(s): CT head/brain wo IV con ?? Accession Number(s): [id number] ? cc: MEHUL ALEXIS MD; Emy Askew MD ? Report Number: ?? [id number]: Total DLP = ??687.00 mGy-cm ?? EXAMINATION: CT HEAD WITHOUT IV CONTRAST ? HISTORY: Onset last night of severe right-sided headache.. ? TECHNIQUE: ? Unenhanced helical CT of the head was performed per standard ?? departmental protocol. Coronal and sagittal reformats of the head were ?? also evaluated. One or more of the following techniques was used for ?? dose reduction: Automated exposure control, adjustment of the mA and/or ?? kV according to patient size, use of iterative reconstruction technique. ? DLP: 687 mGy-cm ? COMPARISON: Comparison is made with the prior examination dated ?? 04/11/2022. ? FINDINGS: ? BRAIN: Again seen are periventricular and subcortical white matter ?? hypodensities which are nonspecific, but often seen in the setting of ?? small vessel ischemic disease. The brain parenchyma is otherwise ?? unremarkable demonstrating normal alaniz/white differentiation. The ?? ventricular system is normal in size and configuration. ??There is no ?? mass effect or midline shift. ??No intra- or extra-axial fluid ?? collections are identified. ? SINUSES: The visualized paranasal sinuses are clear. ??The mastoid air ?? cells and middle ear cavities are well pneumatized. ? ORBITS: The visualized orbits are unremarkable. ? BONES/SOFT TISSUES: The extracranial soft tissues are unremarkable. The ?? calvarium is intact. No suspicious lytic or sclerotic lesions. ? CT/CT head/brain wo IV con ?? IMPRESSION: ?? No acute intracranial abnormality. ? Electronically signed by: ??Cm Starkey MD ??06/26/2024 02:03 PM EDT ?? RP ? Dictated By: ?Cm Starkey MD ? Signed By: ?<Electronically signed by Cm Starkey MD in OV> ?06/26/24 1403 ? DD/ 1309 ? TD/TT: 06/26/24 1350 ? Lens Block Gauger: ? Procedure Note Aniket, Image - 06/26/[address] [address] [address] Scan Report Signed Patient: Axel Palmer#: [id number] 0 : 9Acct:[id number] Age/Sex: 63 / FADM Date: 06/26/24 Loc: HO.CT Attending Dr: Mehul Alexis MD Ordering Physician: MEHUL ALEXIS MD Date of Service: 06/26/24 Procedure(s): CT head/brain wo IV con Accession Number(s): [id number] cc: MEHUL ALEXIS MD; Emy Askew MD Report Number: [id number]: Total DLP = 687.00 mGy-cm EXAMINATION: CT HEAD WITHOUT IV CONTRAST HISTORY: Onset last night of severe right-sided headache.. TECHNIQUE: Unenhanced helical CT of the head was performed per standard departmental protocol. Coronal and sagittal reformats of the head were also evaluated. One or more of the following techniques was used for dose reduction: Automated exposure control, adjustment of the mA and/or kV according to patient size, use of iterative reconstruction technique. DLP: 687 mGy-cm COMPARISON: Comparison is made with the prior examination dated 04/11/2022. FINDINGS: BRAIN: Again seen are periventricular and subcortical white matter hypodensities which are nonspecific, but often seen in the setting of small vessel ischemic disease. The brain parenchyma is otherwise unremarkable demonstrating normal alaniz/white differentiation. The ventricular system is normal in size and configuration. There is no mass effect or midline shift. No intra- or extra-axial fluid collections are identified. SINUSES: The visualized paranasal sinuses are clear. The mastoid air cells and middle ear cavities are well pneumatized. ORBITS: The visualized orbits are unremarkable. BONES/SOFT TISSUES: The extracranial soft tissues are unremarkable. The calvarium is intact. No suspicious lytic or sclerotic lesions. CT/CT head/brain wo IV con IMPRESSION: No acute intracranial abnormality. Electronically signed by: Cm Starkey MD 06/26/2024 02:03 PM EDT Dictated By: Cm Starkey MD Signed By: <Electronically signed by Cm Starkey MD in OV> 06/26/24 1403 DD/ 1309 TD/TT: 06/26/24 1350 Lens Block Gauger: Mehul Alexis MD IMG CT PROCEDURES Edited Result - Final * SARS-CoV-2 RNA, Influenza A/B, and RSV RNA, Ql NAAT (06/20/2024 11:25 PM EDT) Influenza A PCR NEGATIVE Negative [facility] Influenza B PCR NEGATIVE Negative [facility] Resp Syncy Virus RNA Qual PCR NEGATIVE Negative [facility] SARS COV2 PCR NEGATIVE Negative [facility] Comment:All test results mus t be [...] use by authorized laboratories.Testing performed on the [employer] GeneXpert utilizingreal-time RT-PCR.All SARS CoV2 and positive influenza A/B results arereported to [facility]. 06/20/2024 11:2 5 PM EDT 06/20/2024 11:28 PM EDT us Generic External Data Provider LAB MICROBIOLOGY - GENERAL ORDERABLES Final Result [facility] [address] [place] [address] [phone] * (ABNORMAL) CBC auto differential (06/20/2024 11:25 PM EDT) White Blood Count 12.4(H) 4.8 - 10.8 X10*3/uL [facility] Red Blood Count 4.65 4.20 - 5.50 X10*6/uL [facility] Hemoglobin 13.7 12.0 - 16.0 g/dl [facility] Hematocrit 40.4 37.0 - 47.0 % [facility] Mean Corpuscular Volume 86.9 80.0 - 98.0 fL [facility] Mean Corpuscular Hemoglobin 29.5 27.0 - 33.0 pg [facility] Mean Corpuscular HGB Conc 33.9 31.0 - 35.0 g/dl [facility] Red Cell Distribution Width 14.6 11.0 - 16.0 % [facility] Platelet Count 326 160 - 400 X10*3/uL [facility] Mean Platelet Volume 9.3(L) 9.4 - 12.3 fL [facility] Neutrophils Percent Auto 66.8 45 - 73 % [facility] Imm Gran Pct Auto 0.2 0.0 - 0.4 % [facility] Lymphocytes Percent Auto 17.3(L) 20 - 40 % [facility] Monocytes Percent Auto 9.0 2 - 11 % [facility] Eosinophils Percent Auto 6.2(H) 0 - 4 % [facility] Basophils Percent Auto 0.5 0 - 2 % [facility] NRBC Pct Auto 0.0 0.0 - 0.2 /100WBC [facility] Neutrophils Absolute Auto 8.3 2.0 - 8.3 x10*3/uL [facility] Imm Gran Abs Auto 0.03 0.00 - 0.03 X10*3/uL [facility] Lymphocytes Absolute Auto 2.2 1.2 - 4.9 X10*3/uL [facility] Monocytes Absolute Auto 1.1 0.1 - 1.2 X10*3/uL [facility] Eosinophils Absolute Auto 0.8(H) 0.0 - 0.4 X10*3/uL [facility] Basophils Absolute Auto 0.1 0.0 - 0.2 X10*3/uL [facility] NRBC Abs Auto 0.000 0.0 - 0.012 X10*3/uL [facility] 06/20/2024 11:2 5 PM EDT 06/20/2024 11:28 PM EDT us Generic External Data Provider LAB BLOOD ORDERAB LES Final Result Performing Organization Address City/[facility]/ZIP Co de Phone Number [facility] [address] [place] [address] [phone] * Lipase (06/20/2024 11:25 PM EDT) Lipase 26 8 - 78 U/L [facility] 06/20/2024 11:2 5 PM EDT 06/20/2024 11:28 PM EDT Generic External Data Provider LAB BLOOD ORDERAB LES Final Result Performing Organization Address [facility]/ZIP Co de Phone Number [facility] [address] [place] [address] [phone] * (ABNORMAL) Comprehensive Metabolic Panel (06/20/2024 11:25 PM EDT) Sodium 141 135 - 145 mmol/L [facility] Potassium 3.3 3.3 - 5.1 mmol/L [facility] Chloride 106 96 - 108 mmol/L [facility] Carbon Dioxide 24 22 - 29 mmol/L [facility] Anion Gap 14 12 - 20 [facility] Urea Nitrogen (BUN) 13 9 - 16 mg/dL [facility] Creatinine, Serum 0.72 0.5 - 1.4 mg/dL [facility] Creatinine Clr Calc Pharmacy 66.2 [facility] Comment:Provided height and weight: 154.94 cm,63.049 kg.eGFR (calculated from the MDRD study equation) and eCrCl(calculated from the Cockcroft-Gault equation) are based ondifferent parameters and may not yield comparable results.If eCrCl result is absurd, please check patient'sheight/weight. Estimated Glomerular Filt Rate >60 [facility] Comment:Chronic Kidney Disea se: Estimated GFR < 60 mL/min/[id number] Kidney Disease: Estimated GFR < 15 mL/min/1.73m2 Glucose 141(H) 60 - 115 mg/dL [facility] Calcium 9.9 8.4 - 10.2 mg/dL [facility] Bilirubin, Total 0.5 0.0 - 1.0 mg/dL [facility] Aspartate Amino Transferase 22 5 - 31 U/L [facility] Alanine Aminotransferase 11 0 - 31 U/L [facility] Total Protein 7.8 6.5 - 8.0 g/dL [facility] Albumin Level 4.0 3.5 - 5.0 g/dL [facility] Alkaline Phosphatase 112 39 - 117 U/L [facility] 06/20/2024 11:2 5 PM EDT 06/20/2024 11:28 PM EDT us Generic External Data Provider LAB BLOOD ORDERAB LES Final Result Performing Organization Address City/[facility]/ZIP Co de Phone Number [facility] [address] [place] [address] [phone] * (ABNORMAL) Glucose, Whole Blood (06/16/2024 10:45 AM EDT) Glucose, Whole Blood 263(H) 60 - 115 mg/dL [facility] Comment:METER #: [id number] Testing performed in the Endocrinology Department [address] , [address], [facility]. 06/16/2024 10:4 5 AM EDT 06/16/2024 10:48 AM EDT us Generic External Data Provider LAB BLOOD ORDERAB LES Final Result Performing Organization Address [facility]/ZIP Co de Phone Number [facility] [address] [place] [address] [phone] * XR CERVICAL SPINE 3V (06/10/2024 9:13 AM EDT) Anatomical Region Laterality Modality Abdomen Radiographic Karla ging 06/10/2024 9:13 AM EDT Narrative 06/10/2024 9:41 AM EDT ?[facility] ?[address] ?[place] [address] ?XRay Report ? Signed ? Patient: Jennifer Palmer ?MR#: [id number] ?? 0 ? : 1960 ?Acct:[id number] ? Age/Sex: 63 / F ?ADM Date: 06/10/24 ? Loc: HO.HHCX ? Attending Dr: Mehul Alexis MD ? Ordering Physician: MEHUL ALEXIS MD ?? Date of Service: 06/10/24 ?? Procedure(s): XR cervical spine 3V ?? Accession Number(s): [id number] ? cc: MEHUL ALEXIS MD ? EXAMINATION: [...] ? DD/ 2 ? TD/TT: 06/10/2413 ? Lens Block Gauger: ? Procedure Note Bridgette Marcial - 06/10/[address] [address] XRay Report Signed Patient: Axel Palmer#: [id number] 0 : 9Acct:[id number] Age/Sex: 63 / FADM Date: 06/10/24 Loc: HO.HHCX Attending Dr: Mehul Alexis MD Ordering Physician: MEHUL ALEXIS MD Date of Service: 06/10/24 Procedure(s): XR cervical spine 3V Accession Number(s): [id number] cc: MEHUL ALEXIS MD EXAMINATION: XR CERVICAL [...] MDin OV> 06/10/24938 DD/ 2 TD/TT: 06/10/24912 Lens Block Gauger: Mehul Alexis MD IMG XR PROCEDURES Final Result * Influenza B (ID NOW Rapid Molecular) (06/04/2024 9:50 AM EDT) Pathologist [facility] Influenza B Negative Negative, Indeterminate [facility] Swab 06/04/2024 9:50 AM EDT Kaden Jaime MD POINT OF CARE TEST ENTER/EDIT OR DERABLES Final Result [facility] [address] [place] [address] [phone] * Influenza A (ID NOW Rapid Molecular) (06/04/2024 9:50 AM EDT) Influenza A Negative Negative, Indeterminate [facility] Swab 06/04/2024 9:50 AM EDT us Kaden Jaime MD POINT OF CARE TEST ENTER/EDIT OR DERABLES Final Result Performing Organization Address [facility] Co de Phone Number [facility] [address] [place] [phone] * POCT Rapid COVID Ag (06/04/2024 9:50 AM EDT) [facility] Rapid COVID Ag Negative Swab 06/04/2024 9:50 AM EDT us Kaden Jaime MD POINT OF CARE TEST ENTER/EDIT OR DERABLES Final Result * POCT rapid strep A manually resulted (06/04/2024 9:50 AM EDT) [facility] Rapid Strep A Screen Negative Negative, None Detected Swab 06/04/2024 9:50 AM EDT us Kaden Jaime MD POINT OF CARE TEST ENTER/EDIT OR DERABLES Final Result * Culture, Throat (06/04/2024 9:50 AM EDT) Throat Structure of anterior portion of neck / Unknown 06/04/2024 9:50 AM EDT 06/04/2024 6:00 PM EDT Comment:Throat Narrative [facility] - 06/05/2024 11:47 AM EDT Streptococcus pyogenes (Grp A) Quant Org ID [id number] Specimen Source: Throat us Kaden Jaime MD LAB MICROBIOLOGY - GENERAL ORDER CANDI Final Result Performing Organization Address City/[facility]/ZIP Co de Phone Number [facility] [address] [place] [phone] * POCT fern test, vaginal fluid manually resulted (05/26/2024 12:38 PM EDT) [facility] DAVON Prep Negative Comment:pH 5, neg whiff, neg clue, neg trich, neg wbc, neg hyphae Vaginal Fluid Vaginal structure / Unknown 05/26/2024 12:38 PM EDT Alden Cai CNM POINT OF CARE TEST ENTER/ EDIT ORDERABLES Final Result * Bacterial Vaginosis Panel (05/26/2024 12:37 PM EDT) TRICHOMONAS VAGINALIS DETECTION BY PCR NOT DETECTED Not Detect [facility] BACTERIAL VAGINOSIS DETECTION BY PCR NEGATIVE Negative [facility] Comment:The BV organism targ ets of [...] DETECTION BY PCR NOT DETECTED Not Detect [facility] Sammie glab krusei PCR NOT DETECTED Not Detect [facility] Swab Vaginal structure / Unknown 05/26/2024 12:37 PM EDT 05/26/2024 4:52 PM EDT Alden Cai CNM LAB MICROBIOLOGY - GENERA L ORDERABLES Final Result [facility] [address] [place] [phone] * BI Mammogram Screening Tomosynthesis Bilateral (03/17/2024 1:00 PM EST) Anatomical Region Laterality Modality Breast Bilateral Mammography 03/17/2024 1:00 PM EST Narrative 03/28/2024 10:52 AM EST ? [facility] ? [address] ?[place] [address] ? Mammography Report ? Signed ? Patient: Palmer,Jennifer ?MR#: [id number] ?? 0 ? : 1960 ?Acct:[id number] ? Age/Sex: 63 / F ?ADM Date: /14/25 ? Loc: HO.MAMMO ? Attending Dr: Emy Goldsmith MD ? Ordering Physician: Emy Askew MD ?Re ?? sults: 1Negative ? Date of Service: 03/17/24 ?Follow Up: 1 Year From Orig ?? inal Mammogram ? Procedure(s): MM tomosynthesis screening BI ?? Accession Number(s): [id number] ? cc: Emy Askew MD ? EXAMINATION: [...] DD/ 1300 ? TD/TT: 03/17/24 1320 ? Lens Block Gauger: ? Procedure Note Donotsilviainterpreter, Image - 03/28/2024 [place] [facility] [address] [place], [place] [address] Mammography Report Signed Patient: Axel Palmer#: [id number] 0 : 9Acct:[id number] Age/Sex: 63 / FADM Date: 03/17/24 Loc: HOJONASO Attending Dr: Emy Goldsmith MD Ordering Physician: Emy Askew sults: 1Negative Date of Service: 03/17/24Follow Up: 1 Year From Orig inal Mammogram Procedure(s): MM tomosynthesis screening BI Accession Number(s): [id number] cc: Emy Askew MD EXAMINATION: MM SCREENING [...] 03/28/24 1049 DD/ 1300 TD/TT: 03/17/24 1320 Lens Block Gauger: us Emy Goldsmith MD IMG BI PROCEDURES Final Result * (ABNORMAL) Lipid Panel, Standard (12/25/2023 7:08 AM EDT) Triglycerides 232(H) <150 mg/dL [facility] Comment:Desirable Triglyceri de: less than 150 mg/dLBorderline High Triglyceride 150-199 mg/dLHigh Triglyceride: 200-499 mg/dLVery High Triglyceride: greater than or equal to 5OO mg/dL Cholesterol 154 <200 mg/dL [facility] Comment:Desirable Cholestero l: less than 200 mg/dLBorderline High Cholesterol: 200-239 mg/dLHigh Cholesterol: greater than 239 mg/dL LDL Cholesterol Calculated 64 <100 mg/dL [facility] Comment:Desirable LDL: less than 100 mg/dLNear Optimal/Above Optimal LDL: 110- 129 mg/dLBorderline High LDL: 130-159 mg/dLHigh LDL: 160-189 mg/dLVery High LDL: greater than or equal to 190 mg/dL HDL Cholesterol 44 >40 mg/dL [facility] Comment:Desirable HDL: great er than 40 mg/dL Note: This HDL assay may give artificially low results in patients with liver disease. Blood Venous blood specimen / Unknown 12/25/2023 7:08 AM EDT 12/25/2023 7:09 AM EDT us Emy Goldsmith MD LAB BLOOD ORDERAB LES Final Result [facility] [address] [place] [address] [phone] * (ABNORMAL) Albumin, Random Urine W/Creatinine (12/25/2023 7:05 AM EDT) Creatinine, Urine 50.21 mg/dL [facility] Microalbumin Urine 78.0 mg/L [facility] Microalbum Creatinine Ratio Ur 155.3(H) <30 ug/mg cr [facility] Comment:Albumin/Creatinine R atio Reference Ranges: Normal: < 30 ug/mg creatinine Microalbuminuria: 30 - 300 ug/mg creatinineClinical Albuminuria: > 300 ug/mg creatinine Urine (Urine, Random) 12/25/2023 7:05 AM EDT 12/25/2023 7:49 AM EDT Emy Goldsmith MD LAB URINE ORDERAB LES Final Result [facility] [address] [place] [address] [phone] * HPV mRNA E6/E7 w/Reflex to HPV Genotypes 16, 18/45 (05/27/2023 10:50 AM EDT) HPV nRNA E6/E7 Not Detected Not Detected [facility] Comment:Methodology: Transcr iption-Mediated AmplificationThis assay detects E6/E7 viral messenger RNA (mRNA) from 14high-risk HPV types (16,18,31,33,35,39,45,51,52,56,58,59,66,68).Cervical sources are required for HPV testing.If a vaginal source from a patient who has had atotal hysterectomy with removal of cervix wassubmitted, please contact the testing laboratoryfor alternative testing options.For additional information, please refer tohttp://education.[employer]/faq/TDR540f3(This link if provided for information/educational purposes only.)THIS TEST WAS PERFORMED AT:[employer] [place] [phone] CAMARENA MD HPV mRNA E6/E7 [facility] HPV 16 RNA [facility] HPV 18/45 RNA [facility] 05/27/2023 10:5 0 AM EDT 05/28/2023 11:50 AM EDT Alden Cai CNM LAB CYTOLOGY ORDERABLES F inal Result [facility] [address] [place] [phone] * Pap Smear (05/27/2023 10:50 AM EDT) Swab Cervix uteri structure / Unknown 05/27/2023 10:50 AM EDT 05/28/2023 11:50 AM EDT Narrative [facility] - 06/09/2023 5:49 PM EDT ----- ------- Name: Jennifer Palmer ?Age/Sex: 62/F ? : 1960 Unit#: [id number] ?? Attend Dr: ALDEN CAI CNM ?Re05/27/23 ?Status: DEP REF ? Location: HO.HHCLNP ? Disch: ? ----- ------- SPEC : [id number] ? RECD: 05/28/23-1150 ? STATUS: ??SOUT ? REQ NUM: [id number] ? PRANAY: 05/27/23-1050 ? SUBM DR: ALDEN CAI CNTristen ? ENTERED: ??05/28/23-5 ?SP TYPE: Pap Smr ?OTHR : ? [...] 66, 68) ? HPV testing performed by [facility], [place], [place]. ??See reference laboratory ?? portion of the EMR for entire report. ?Clinical Information LMP: Postmenopausal Previous PAP test: Unknown date/findings ? Material Received ?? ThinPrep-Vaginal/Cervical ----- ------- Signed (signature on file) Esther Gutierres 06/09/23 1749 ? ----- ------- ? END OF REPORT ? us Alden Cai [facility] CYTOLOGY ORDERABLES F inal Result Performing Organization Address [facility] Co de Phone Number [facility] [address] [place] [address] [phone] * Hm Colonoscopy (05/09/2023 6:56 PM EST) Historical Provider HEALTH MAINTENANCE Final Result * Hepatitis C Antibody Reflex (10/04/2022 9:42 AM EDT) Hepatitis C Antibody Nonreactive Nonreactive [facility] Comment:Antibodies to HCV no t detected; does not exclude early acuteHCV infection. 10/04/2022 9:42 AM EDT 10/04/2022 9:43 AM EDT us Emy Goldsmith MD LAB BLOOD ORDERAB LES Final Result Performing Organization Address [facility] Co de Phone Number [facility] [address] [place] [address] [phone] from Last 3 Months or Most Recently Relevant to Health Maintenance Insurance [facility] SKILLED NURSING OPTIONS (HMO D-SNP) D[facility]AL-[facility] MEDICA[employer] STAND ADULT Care Teams Test Operator Relationship Specialty Start Date End Date Emy Askew MD [address] [place] [address] PCP - General Internal Medicine 07/25/22
--- OUTSIDE RECORDS SUMMARY | 2024-07-21 08:29 | XMS_ITS | Clinical Summary ---
Author Organization [facility] Address [address] [place] [address] Phone Care Team Providers Care Pesticide Applicator Name Role Phone Berkley Bird MD Primary Care Provider Allergies Active Allergy Reactions Criticality Noted Date Comments Sulfamethoxazole-Trimethoprim 2024 Codeine 04/06/2024 Sulfa (Sulfonamide Antibiotics) 02/01 Trimethoprim 04/06/2024 Medications CLONAZEPAM ORAL Take by mouth. Active hydroxychloroqu ine sulfate (PLAQUENIL ORAL) Take by mouth. Active propoxyphene HCl (PROPOXYPHENE ORAL) Take by mouth. Active lisinopriL (PRINIVIL,ZESTR IL) 10 mg tablet Take 10 mg by [...] (CYMBALTA ORAL) Take by mouth. Active fluticasone propion/salmete rol (ADVAIR DISKUS INHL) Inhale into the lungs. Active terbinafine (LamISIL) 250 mg tablet Take 1 tablet (250 mg total) by mouth 1 (one) time each day. 30 tablet 2 04/06/2024 5 Active Problems Problem Noted Date Diagnosed Date HTN (hypertension) 12/22/2012 Obesity 12/22/2012 HLD (hyperlipidemia) 12/22/2012 Depression 12/22/2012 Rheumatoid arthritis (CMS/HCC V24, CMS/HCC V28) 12/22/2012 Asthma 12/22/2012 Encounters Date Type Department Care Team Description 07/09/2024 9:15 AM EDT Office Visit [facility] [address] [phone] Magen Velasco DPM Controlled type 2 diabetes with neuropathy ([facility] V24, [facility] V28) (Primary Dx); Pain in toes of [...] - - Weight 65.8 kg (145 lb) 07/09/2024 9:11 AM EDT Height 157.5 cm (5' 2.01 ) 07/09/2024 9:11 AM ED T Body Mass Index 26.51 07/09/2024 9:11 AM EDT Plan of Treatment Upcoming Encounters Date Type Department Care Team (Late st Contact Info) Description 09/10/2024 9:00 AM EDT Office Visit [facility] [address] [phone] Magen Velasco DPM [address] [address] Health Maintenance Due Date Last Done Comments [...] 11/12/2023 Diabetes: Annual GFR (Glomerular Filtration Rate) 06/20/2025 06/20/2024, 04/06/2024, 02/17/2024 Hypertension/CHF/CAD Annual BMP Blood Test 06/20/2025 06/20/2024, 04/06/2024, 02/17/2024 Cervical Cancer Screening: Pap Smear [...] Dermatophytosis of nail from Last 3 Months or Most Recently Relevant to Health Maintenance Results * (ABNORMAL) Comprehensive metabolic panel (04/06/2024 2:00 PM EST) Sodium 138 133 - 145 mmol/L LAB CHEMISTRY METHOD 04/06/2024 6:42 PM [facility] Potassium 3.5 3.5 - 5.5 mmol/L LAB CHEMISTRY METHOD 04/06/2024 6:42 PM [facility] Chloride 102 96 - 110 mmol/L LAB CHEMISTRY METHOD 04/06/2024 6:42 PM [facility] CO2 31 21 - 32 mmol/L LAB CHEMISTRY METHOD 04/06/2024 6:42 PM [facility] Anion Gap 5 3 - 11 LAB CHEMISTRY METHOD 04/06/2024 6:42 PM [facility] Glucose 183(H) 70 - 100 mg/dL LAB CHEMISTRY METHOD 04/06/2024 6:42 PM [facility] BUN 17 5 - 25 mg/dL LAB CHEMISTRY METHOD 04/06/2024 6:42 PM [facility] Creatinine 0.94 0.50 - 1.10 mg/dL LAB CHEMISTRY METHOD 04/06/2024 6:42 PM [facility] eGFR 67 >=60 mL/min/1. 73m2 LAB CHEMISTRY METHOD 04/06/2024 6:42 PM [facility] Comment:Calculation based on the??Chronic Kidney Disease Epidemiology Collaboration (CKD-EPI) equation refit??without adjustment for race. BUN/Creatinine Ratio 18.1 LAB CHEMISTRY METHOD 04/06/2024 6:42 PM [facility] Calcium 10.3 8.5 - 10.5 mg/dL LAB CHEMISTRY METHOD 04/06/2024 6:42 PM [facility] AST (SGOT) 15 10 - 42 unit/L LAB CHEMISTRY METHOD 04/06/2024 6:42 PM [facility] ALT (SGPT) 22 10 - 60 unit/L LAB CHEMISTRY METHOD 04/06/2024 6:42 PM [facility] Alkaline Phosphatase 140(H) 42 - 121 unit/L LAB CHEMISTRY METHOD 04/06/2024 6:42 PM [facility] Total Protein 7.6 6.0 - 8.0 g/dL LAB CHEMISTRY METHOD 04/06/2024 6:42 PM [facility] Albumin 3.6 3.2 - 5.0 g/dL LAB CHEMISTRY METHOD 04/06/2024 6:42 PM [facility] Total Bilirubin 0.3 0.0 - 1.4 mg/dL LAB CHEMISTRY METHOD 04/06/2024 6:42 PM [facility] Blood Venous blood specimen / Unknown Venipuncture / Unknown 04/06/2024 2:00 PM EST 04/06/2024 2:00 PM EST Magen Velasco DP LAB BLOOD ORDERABLES Final Result [facility] [address] [place] [address], from Last 3 Months or Most Recently Relevant to [place] [id number] [facility]IC[facility] Member Subscriber Plan / Payer (Ef fective 2023-Present) Name:Jennifer Palmer Relation to Subscriber:Self Name:Jennifer Palmer Payer ID:[id number] Group ID:[id number] Type:Not on file Address: [facility] [address] [address] Care Teams Pesticide Applicator Relationship Specialty Start Date End Date Berkley Bird MD [address] [address] PCP - General Internal Medicine 02/20/24
--- OUTSIDE RECORDS SUMMARY | 2024-07-21 08:29 | XMS_ITS | Encounter Summary ---
Author Organization [employer] Address [address] [place] [address] 7[address] [place] [address] Care Team Providers Care Coal Handler Name Role Phone [facility] Primary Care Provider Emy Askew MD Primary Care Pro vider Reason for Visit * Reason Onset Date Comments VISION 03/13/2022 Encounter Details Date Type Department Care Team ([facility] st Contact Info) Description 03/13/2022 Telephone [facility] [address] [place] [address] [facility] [address] [place] [address] VISION Social History Tobacco Use Types Packs/Day [...] center regarding an eye exam. Please contact [phone] documented in this encounter Plan of Treatment Upcoming Encounters Date Type Department Care Team (Late st Contact Info) Description 08/17/2024 10:00 AM EDT Clinical Support [address] [address] 09/11/2024 9:30 AM EDT Office Visit [address] [address] Emy Askew MD [address] [place] [phone] documented as of this encounter Visit Diagnoses Diagnosis Diabetes 1.5, managed as type 2 (CMS/[facility]) documented in this encounter Care Teams Coal Handler Relationship Specialty Start Date End Date [place] JULIO CÉSAR Zambrano [address] [place] [address] PCP - General Family Medicine 01/22/22 07/24/22 Emy Askew MD [address] [place] [phone] PCP - General Internal Medicine 07/25/22 documented as of this encounter
--- OUTSIDE RECORDS SUMMARY | 2024-07-21 08:29 | XMS_ITS | Encounter Summary ---
Author Organization [employer] Address [address] [place] [address] 7t [place] [address] Care Team Providers Care Risk Control Consultant Name Role Phone [facility] Primary Care Provider [phone] Emy Askew MD Primary Care Pro vider Reason for Visit * Reason Onset Date Comments Med Refill 05/11/2022 Encounter Details Date Type Department Care Team (Late st Contact Info) Description 05/11/2022 Telephone [facility] [address] [place] [address] [facility] [address] [place] [address] Med Refill Social History Tobacco Use Types [...] pt pharmacy today. * Telephone Encounter - Summerakila Aquinojasen Mclean - 05/11/2022 10:22 AM EST Tc from pt requesting a Blood Glucose Monitoring Suppl (FreeStyle Lite) w/Device kit Pt claims that she has lost the device. Please sent to [facility] - [place], [place] - [address] [place] [address] documented in this encounter Plan of Treatment Upcoming Encounters Date Type Department Care Team ([facility] st Contact Info) Description 08/17/2024 10:00 AM EDT Clinical Support [address] [address] 09/11/2024 9:30 AM EDT Office Visit [address] [address] Emy Askew MD [address] [place] [phone] documented as of this encounter Visit Diagnoses Not on filedocumented in this encounter Care Teams Risk Control Consultant Relationship Specialty Start Date End Date Kenya Sol FNP [address] [place] [address] PCP - General Family Medicine 01/22/22 07/24/22 Emy Askew MD [address] [place] [address] PCP - General Internal Medicine 07/25/22 documented as of this encounter
--- OUTSIDE RECORDS SUMMARY | 2024-07-21 08:29 | XMS_ITS | Encounter Summary ---
Author Organization [employer] Address [address] [facility] 7t [place] [address] Care Team Providers Care Valve Repairer Name Role Phone Kenya Sol PITTING MACHINE OPERATOR Primary Care Provider Emy Askew MD Primary Care Pro vider Encounter Details Date Type Department Care Team ([facility] Contact Info) Description 05/28/2022 Orders Only [facility] [address] [place], [place] [phone] Candy Miller LPN Social History Tobacco Use [...] Upcoming Encounters Date Type Department Care Team ([facility] Contact Info) Description 08/17/2024 10:00 AM EDT Clinical Support [address] [address] 09/11/2024 9:30 AM EDT Office Visit [address] [address] Emy Askew MD [address] [place] [address] documented as of this encounter Visit Diagnoses Not on filedocumented in this encounter Care Teams Valve Repairer Relationship Specialty Start Date End Date [place]AR [address] [place] [address] PCP - General Family Medicine 01/22/22 07/24/22 Emy Askew MD [address] [place] [address] PCP - General Internal Medicine 07/25/22 documented as of this encounter
--- OUTSIDE RECORDS SUMMARY | 2024-07-21 08:29 | XMS_ITS | Encounter Summary ---
Author Organization [employer] Address [address] [place] [address] Care Team Providers Care Cyber Systems Operations Specialist Name Role Phone Cyn Bosch MD Primary Care Provider [facility] Primary Care Provider [phone] Emy Askew MD Primary Care Pro vider Encounter Details Date Type Department Care Team (Latest Contact Info) Description 09/30/2018 Abstract [facility] CONVERSIONS Dental, Provider, DDS Social [...] Description 08/17/2024 10:00 AM EDT Clinical Support [address] [phone] 09/11/2024 9:30 AM EDT Office Visit [facility] MEDICINE [address] [place] [phone] Emy Askew MD [address] [place] [address] [phone] documented as of this encounter Visit Diagnoses Not on filedocumented in this encounter Care Teams Cyber Systems Operations Specialist Relationship Specialty Start Date End Date Cyn Bosch MD PCP - General Family Medicine 08/20/19 01/21/22 [place] FNP [address] [place] [address] PCP - General Family Medicine 01/22/22 07/24/22 Emy Askew MD [address] [place] [address] PCP - General Internal Medicine 07/25/22 documented as of this encounter
--- OUTSIDE RECORDS SUMMARY | 2024-07-21 08:29 | XMS_ITS | Encounter Summary ---
Author Organization [employer] Address [address] [facility] 7t [place] [address] Care Team Providers Care Mounter Automatic Name Role Phone Emy Askew MD Primary Care Pro vider Encounter Details Date Type Department Care Team (Latest Contact Info) Description 07/16/2024 Travel Social History Tobacco Use Types Packs/Day [...] Description 08/17/2024 10:00 AM EDT Clinical Support [address] [address] 09/11/2024 9:30 AM EDT Office [facility] MEDICINE [address] [place] [address] Emy Askew MD [address] [place] [address] documented as of this encounter Visit Diagnoses Not on filedocumented in this encounter Additional Health Concerns Assessment Noted Time PHQ-9 Depression Total Score: 10 024 2:37 PM EDT documented as of this encounter Care Teams Mounter Automatic Relationship Specialty Start Date End Date Emy Askew MD [address] [place] [phone] PCP - General Internal Medicine 07/25/22 documented as of this encounter
--- OUTSIDE RECORDS SUMMARY | 2024-07-21 08:29 | XMS_ITS | Encounter Summary ---
Author Organization [employer] Address [address] [place] [address] [place] [address] Care Team Providers Care Sql Server Developer Name Role Phone Emy Askew MD Primary Care Pro vider Reason for Visit * Reason Comments Med Refill Encounter Details Date Type Department Care Team ([facility] Contact Info) Description 02/14/2024 Refill [facility] MEDICINE [address] [place] [address] Emy Askew MD [address] [place] [address] Social History Tobacco Use Types Packs/Day Years [...] Description 08/17/2024 10:00 AM EDT Clinical Support [facility] MEDICINE [address] [place] [address] 09/11/2024 9:30 AM EDT Office Visit [facility] MEDICINE [address] [place] [address] Emy Askew MD [address] [place] [phone] documented as of this encounter Visit Diagnoses Not on filedocumented in this encounter Additional Health Concerns Assessment Noted Time PHQ-9 Depression Total Score: 10 024 2:37 PM EDT documented as of this encounter Care Teams Sql Server Developer Relationship Specialty Start Date End Date Emy Askew MD [address] [place] [address] PCP - General Internal Medicine 07/25/22 documented as of this encounter
[2024-07-21 09:54] LABS: Anion Gap 9 (12-20); Blood Urea Nitrogen 14 mg/dL (9-16); Calcium 9.3 mg/dL (8.4-10.2); Carbon Dioxide 27 mmol/L (22-29); Chloride 108 mmol/L (96-108); Estimated Glomerular Filt Rate > 60; Glucose Random 150 mg/dL (60-115); Sodium 141 mmol/L (135-145)
== END 2024-07-21 08:16 | disposition home or self-care (01) ==
LOC: HO.LAB 08:15
PROVIDERS: Absent Provider Internal Medicine Cardiovascular Disease; PCP Student in an Organized Health Care Education/Training Program; Visit Provider Student in an Organized Health Care Education/Training Program
DX: R06.09 Other forms of dyspnea (principal)
CPT/HCPCS: 36415; 80048

== ENCOUNTER 2024-08-06 09:07 | Outpatient (AMB) | payer OTHER, SELFPAY ==
[2024-08-06 09:10] VITALS: BP 133/90; PULSE 89; RESP 18; O2SAT 98
--- NOTE | 2024-08-06 09:10 | A.OFFVIS_ITS ---
Vital Signs 08/06/24 09:10 Weight 134 lb BP 133/90 H Blood Pressure Location Lt brachial Position Sitting Respiration 18 Pulse 89 Pulse Source Pulse Oximeter Pulse Oximetry (%) 98 Oxygen Delivery Method Room Air Intake Visit Reasons: Neck pain [place] 2020 Allergies codeine [Codeine] Allergy (Mild, Verified 08/06/24 09:13) BURNING IN CHEST, chest pain sulfamethoxazole [From Bactrim] Allergy (Mild, Verified 08/06/24 09:13) ITCH,RASH HPI Comments Details: Jennifer is very pleasant Vietnamese-speaking 63 years old female who presents in my office with complains on severe neck pain. Reports that her pain started 1 month ago she denies any trauma any car accident or fall. She reports that many years she was suffering from mild cervicalgia however now pain became very severe. Apparently she tried ibuprofen which upset her stomach she stopped it she tried Tylenol with minimal effect. She never had physical therapy. She was sent for the x-ray of the cervical spine and results of the x-ray are as below. She reports that both flexing neck forward and backwards aggravate her pain. She can not sleep because of her pain and she takes multiple medications to help her to sleep. She takes Klonopin melatonin and trazodone she also takes trazodone for depression. Her past medical history significant for diabetes hypertension arthritis and depression. No history of heart attacks no history of lung problems. Her past surgical history significant for bilateral tubal ligation gallbladder surgery and 2 surgeries on the shoulder. 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 SOY (obstructive sleep apnea) COPD (chronic obstructive pulmonary disease) Sicca syndrome Constipation Alopecia Sjogrens syndrome Osteoarthritis Rheumatoid arthritis Fibromyalgia Back pain Difficulty swallowing GERD (gastroesophageal reflux disease) Depression Asthma Elevated cholesterol HTN (hypertension) Surgical History History of laryngoscopy Hx of hemorrhoidectomy History of bladder suspension procedure Hx of dilation and curettage Hx of tubal ligation History of repair of left rotator cuff Hx of colonoscopy History of esophagogastroduodenoscopy (EGD) Family History Father Cancer Mother Heart disease Diabetes Social History Household Members: Children and Other Household Members Other:: daughter, grandkids Are you a primary animal care specialist to a significant other at home: No Do you presently have visiting nurse or other home services: No Alcohol intake: never Patient Tobacco Use Status: Never used Tobacco e-Cigarette/Vaping Use: Never Used Second Hand Smoke Exposure: No 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al status: disabled 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 Review of Systems Const All systems reviewed & are unremarkable except as noted in HPI and below ENT Reports Normal hearing present and Denies dysphagia Card Denies chest pain and Denies dyspnea Resp Denies dyspnea GI Denies abdominal pain, Reports hematochezia, Reports constipation, Denies dysphagia, Denies heartburn, Denies nausea and Denies vomiting Neuro Reports Normal hearing present, Denies Abnormal speech present, Denies confusion and Denies Sensory deficit (Neuro) Psych Denies confusion Physical Exam Vital Signs: Last Vital Signs Pulse 89 08/06/24 09:10 Resp 18 08/06/24 09:10 BP 133/90 H 08/06/24 09:10 Pulse Ox 98 08/06/24 09:10 Oxygen Delivery Method Room Air 08/06/24 09:10 Const General: no acute distress; No confusion Orientation/consciousness: patient oriented x3 and No confusion Eyes General: appearance normal, both eyes and all related structures Pupils: Equal, round and reactive pupils present EOM: EOMs intact bilaterally Neck Other: Limited range of motion cervical spine Valsalva maneuver is positive for pain increase, flexing forward and flexing backwards aggravate her pain. Severe tenderness on palpation in projection of the entire cervical spine. Axial compression and axial extension of the neck aggravate her pain. Chest Chest palpation & inspection: normal inspection of the chest Resp Effort & Inspection: normal respiratory effort, able to speak in complete sentences, normal respiratory pattern, no audible wheezes and no cough Cardio Jugular venous distension: no JVD GI Inspection: Yes normal to inspection Neuro General: patient oriented x3, gait normal and No confusion Cranial nerves: Yes CN's II-XII intact bilaterally, Yes Equal, round and reactive pupils present, Yes Normal hearing present and Yes Ability to bilaterally elevate shoulders present Speech: No Abnormal speech present Gait exam (Neuro): Normal gait present Motor exam (neuro): 5/5 motor strength present throughout Sensory Exam: No Sensory deficit (Neuro) Extrem General: No pedal edema Psych Speech and movement: Normal speech and movement present Affect: normal affect Attitude: cooperative Thought process: Normal thought process present Thought content: Normal thought content present Insight: Good insight present (Psych) Judgement: Good judgement present (Psych) Results Reviewed Results Reviewed: XR CERVICAL SPINE X-ray cervical spine 06/10/2024 TECHNIQUE: 3 views of the cervical spine were obtained. FINDINGS: Craniocervical junction is intact. No acute cortical disruption or malalignment. Facet joint hypertrophy C7-T1. Grade 1 anterolisthesis C5-6. No lytic or blastic lesions. Upper airway is patent. IMPRESSION: Grade 1 anterolisthesis C5-6. Assessment & Plan Assessment & Plan (1) Spondylolisthesis, cervical region: Code(s): M43.12 - Spondylolisthesis, cervical region Category: Medical (2) Spondylosis, cervical: Code(s): M47.812 - Spondylosis without myelopathy or radiculopathy, cervical region Category: Medical Plan This patient never had physical therapy for her cervical spine I will schedule her for physical therapy. However I would need to make sure that her spondylolisthesis is not unstable. I sent her for flexion-extension x-ray of the cervical spine. It did not demonstrate any changes with her spondylolisthesis with flexion and extension. She will continue with physical therapy . I will see her in 1 month after physical therapy is completed and I will offer her injections in her cervical spine. Orders: Orders XR cervical spine w flex/ext Today M43.12 - Spondylolisthesis, cervical region, M47.812 - Spondylosis without myelopathy or radiculopathy, cervical region PT Evaluation and Treatment Today M43.12 - Spondylolisthesis, cervical region, M47.812 - Spondylosis without myelopathy or radiculopathy, cervical region Patient Instructions: I here by testify that I spent 45 minutes in conversation with this patient as well as evaluating her prior records and prior diagnostic studies as well as evaluating newly acquired imaging planning her care and organizing this note. Coding Level of Care Code New Pt Level 4 (60726) Diagnoses Spondylolisthesis, cervical region M43.12 Spondylosis, cervical M47.812
--- NOTE | 2024-08-06 09:12 | AM.OFFVISNUR ---
Vital Signs 08/06/24 09:10 Weight 134 lb BP 133/90 H Blood Pressure Location Lt brachial Position Sitting Respiration 18 Pulse 89 Pulse Source Pulse Oximeter Pulse Oximetry (%) 98 Oxygen Delivery Method Room Air Intake Visit Reasons: Neck pain 2019 Solvent Station Attendant Required: Yes Solvent Station Attendant Services: Solvent Station Attendant Present Solvent Station Attendant Name: sunita [id number] Allergies codeine [Codeine] Allergy (Mild, Verified 08/06/24 09:13) BURNING IN CHEST, chest pain sulfamethoxazole [From Bactrim] Allergy (Mild, Verified 08/06/24 09:13) ITCH,RASH Coding
--- OUTSIDE RECORDS SUMMARY | 2024-08-06 09:48 | XMS_ITS | Encounter Summary ---
Author Organization [employer] Address [address] [facility] [address] [place] [address] Care Team Providers Care Correction Officer Name Role Phone Emy Askew MD Primary Care Pro vider Encounter Details Date Type Department Care Team ([facility] st Contact Info) Description 08/07/2023 Orders Only [facility] MED & PEDS [address] [place] [address] Valeria Armas FNP [address] [place] [address] Social History Tobacco Use Types Packs/Day Years [...] Description 08/17/2024 10:00 AM EDT Clinical Support [facility] MEDICINE [address] [place] [id number] 09/11/2024 9:30 AM EDT Office Visit [address] [address] Emy Askew MD [address] [place] [phone] documented as of this encounter Visit Diagnoses Not on filedocumented in this encounter Additional Health Concerns Assessment Noted Time PHQ-9 Depression Total Score: 16 023 10:16 AM EDT documented as of this encounter Care Teams Correction Officer Relationship Specialty Start Date End Date Emy Askew MD [address] [place] [id number] PCP - General Internal Medicine 07/25/22 documented as of this encounter
== END 2024-08-06 09:27 | disposition home or self-care (01) ==
LOC: HO.PMC 09:07
PROVIDERS: PCP Student in an Organized Health Care Education/Training Program; Referring Provider Emergency Medicine; Visit Provider Anesthesiology
DX: M43.12 Spondylolisthesis, cervical region (principal); M47.812 Spondylosis without myelopathy or radiculopathy, cervical region
CPT/HCPCS: 99204

== ENCOUNTER 2024-08-06 09:40 | Outpatient (REF) | payer OTHER, SELFPAY ==
--- NOTE | ~2024-08-06 | XR_ITS ---
EXAMINATION: XR CERVICAL SPINE FLEXION EXTENSION HISTORY: M43.12 - Spondylolisthesis, cervical region COMPARISON: Comparison is made with the prior examination dated 06/10/2024. FINDINGS: AP, neutral, flexion, and extension lateral, bilateral oblique, and open-mouth odontoid views of the cervical spine are submitted. Osseous mineralization is normal. Seven cervical vertebral bodies are identified maintaining normal height without evidence of fracture there is slight anterolisthesis of C7 on T1 and T1 on T2. There is no significant change with flexion or extension.. The intervertebral disc spaces are preserved. There is narrowing of the right C3-4 and C4-5 neural foramen and the left C3-4 neural foramen secondary to facet osteoarthritis and uncovertebral joint hypertrophy. The odontoid and lateral masses of C1 are intact. There is no prevertebral soft tissue swelling. XR/XR cervical spine w flex/ext IMPRESSION: Degenerative changes of the cervical spine as described. Slight anterolisthesis of C7 on T1 and T1 on T2 without significant change in flexion or extension. Electronically signed by: Cm Starkey MD 08/06/2024 12:26 PM EDT
== END 2024-08-06 09:41 | disposition home or self-care (01) ==
LOC: HO.XRAY 09:40
PROVIDERS: PCP Student in an Organized Health Care Education/Training Program; Visit Provider Anesthesiology
DX: M43.12 Spondylolisthesis, cervical region (principal); M47.812 Spondylosis without myelopathy or radiculopathy, cervical region
CPT/HCPCS: 72052; 99202

== ENCOUNTER → 2024-08-06 10:27 | Outpatient (BNV) | payer OTHER, SELFPAY | PROVIDERS: PCP Student in an Organized Health Care Education/Training Program; Visit Provider Radiology Diagnostic Radiology | DX: M50.30 Other cervical disc degeneration, unspecified cervical region (principal) | CPT/HCPCS: 72052 ==

== ENCOUNTER 2024-08-10 10:08 | Outpatient (REF) | payer OTHER, SELFPAY ==
--- NOTE | ~2024-08-10 | XR_ITS ---
XR KNEE KHURRAM 3V HISTORY: Knee pain. COMPARISON: 09/21/2019. TECHNIQUE: AP view bilateral knees standing, lateral and patellofemoral views each knee. FINDINGS: RIGHT KNEE: No fracture, dislocation, or suspicious bone lesion. Moderate medial compartment, and milder lateral and patellofemoral compartment osteoarthrosis present. Normal patellar alignment. No abnormal patellar tilt. There is spurring of the tibial spines. No evidence of joint effusion. Soft tissues appear normal. LEFT KNEE: No fracture, dislocation, or suspicious bone lesion. Moderate medial compartment, and milder lateral and patellofemoral compartment osteoarthrosis present. Normal patellar alignment. No abnormal patellar tilt. There is spurring of the tibial spines. No evidence of joint effusion. Soft tissues appear normal. XR/XR Knee Khurram 3V IMPRESSION: 1. Bilateral knees demonstrating tricompartmental osteoarthrosis, moderate in the medial compartments, and milder changes in the lateral and patellofemoral compartments. 2. There are no joint effusions. Electronically signed by: Barrington Villalobos MD 08/10/2024 12:47 PM EDT
--- OUTSIDE RECORDS SUMMARY | 2024-08-10 11:14 | XMS_ITS | Encounter Summary ---
Author Organization [employer] Address [address] [facility] [address] [place] [address] Care Team Providers Care Egyptologist Name Role Phone Emy Askew MD Primary Care Pro vider Encounter Details Date Type Department Care Team ([facility] st Contact Info) Description 08/07/2023 Orders Only [facility] CHC MED & PEDS [address] [place] [address] Valeria Armas FNP [address] [place] [address] Social History Tobacco Use Types Packs/Day Years [...] Description 08/17/2024 10:00 AM EDT Clinical Support [facility] MEDICINE [address] [place] [phone] 09/11/2024 9:30 AM EDT Office Visit [address] [address] Emy Askew MD [address] [place] [phone] documented as of this encounter Visit Diagnoses Not on filedocumented in this encounter Additional Health Concerns Assessment Noted Time PHQ-9 Depression Total Score: 16 023 10:16 AM EDT documented as of this encounter Care Teams Egyptologist Relationship Specialty Start Date End Date Emy Askew MD [address] [place] [id number] PCP - General Internal Medicine 07/25/22 documented as of this encounter
== END 2024-08-10 10:09 | disposition home or self-care (01) ==
LOC: HO.HOSX 10:08
PROVIDERS: Visit Provider Orthopaedic Surgery
DX: M17.0 Bilateral primary osteoarthritis of knee (principal); M76.71 Peroneal tendinitis, right leg
CPT/HCPCS: 20610; 73562; 99212; J0665; J1100; J2003

== ENCOUNTER 2024-08-10 10:27 | Outpatient (AMB) | payer OTHER, SELFPAY ==
--- NOTE | 2024-08-10 10:38 | MHC.OFFVIS ---
Intake Visit Reasons: inj-B/L knee OA - last 05/07/24 Intake Note: Jennifer is a 63 year old female who presents today for repeat Bilateral Knee Injections , last injections were administered on 05/07/24. This patient has severe Bilateral Knee OA and is a good surgical candidate but is not ready to pursue surgery. Patient reports that the bilateral Knee injection was a mild relief and that she would like to get the injection again. Patient reports that no numbness or tingling. Allergies codeine [Codeine] Allergy (Mild, Verified 08/10/24 10:41) BURNING IN CHEST, chest pain sulfamethoxazole [From Bactrim] Allergy (Mild, Verified 08/10/24 10:41) ITCH,RASH HPI HPI inj-B/L knee OA - last 05/07/24: Details: Jennifer is a 63 year old female who presents today for repeat Bilateral Knee Injections , last injections were administered on 05/07/24. This patient has severe Bilateral Knee OA and is a good surgical candidate but is not ready to pursue surgery. She states that she lost her brother many years ago to complication after surgery and is adamant that she can not undergo surgery because of this anxiety. Patient reports that the bilateral Knee injection was a mild relief and that she would like to get the injection again. She states that the injection lasted about 2 months. In addition she continues to have swelling and discomfort in the lateral aspect of her right ankle. Patient reports that no numbness or tingling. [facility] Medical History (Updated 08/06/24 @ 09:28 by Vic Montiel MD) Hyperparathyroidism DM2 (diabetes mellitus, type 2) Vitamin D deficiency 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 rheumatoid arthritis intermediate (current) use of insulin SOY (obstructive sleep apnea) COPD (chronic obstructive pulmonary disease) Sicca syndrome Constipation Alopecia Sjogrens syndrome Osteoarthritis Rheumatoid arthritis Fibromyalgia Back pain Difficulty swallowing GERD (gastroesophageal reflux disease) Depression Asthma Elevated cholesterol HTN (hypertension) Surgical History History of laryngoscopy Hx of hemorrhoidectomy History of bladder suspension procedure Hx of dilation and curettage Hx of tubal ligation History of repair of left rotator cuff Hx of colonoscopy History of esophagogastroduodenoscopy (EGD) Family History Father Cancer Mother Heart disease Diabetes Social History Household Members: Children and Other Household Members Other:: daughter, grandkids Are you a primary care process manager to a significant other at home: No Do you presently have visiting nurse or other home services: No Alcohol intake: never Patient Tobacco Use Status: Never used Tobacco e-Cigarette/Vaping Use: Never Used Second Hand Smoke Exposure: No 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al status: disabled 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 Physical Exam Const General: no acute distress, alert and awake Orientation/consciousness: patient oriented x3 HEENT Head: Yes normocephalic and Yes atraumatic Eyes EOM: EOMs intact bilaterally Resp Effort & Inspection: normal respiratory effort and able to speak in complete sentences Cardio Jugular venous distension: no JVD Skin General skin exam: turgor normal Rashes: no rashes Neuro General: patient oriented x3 Extrem Other: Bilateral Knees: Antalgic gait TTP medial compartment 5-130 degrees ROM Right Ankle: Bulbous swelling in distal/retrofibular region Pain on resisted ankle eversion TTP along course of peroneal tendons Skin c/d/i 2+ DP Psych Appearance: grossly normal Affect: normal affect Attitude: cooperative Office Procedures Joint Inj/Aspir; Non-Pain Clin Joint Injection/Drain Details: Injected 1 mL of Decadron and 3 mL 1% lidocaine and 3 mL of 0.25% Marcaine. Site was prepped using aseptic technique. Patient tolerated the procedure well. Shoulders, Hips, Knees, Knee Large Joint Injection [id number]: Bilateral Knee Coding Procedure code (CPT) selection complete Assessment & Plan Assessment & Plan (1) Bilateral primary osteoarthritis of knee: Code(s): M17.0 - Bilateral primary osteoarthritis of knee Category: Medical Plan: I injected bilateral knees today. She can follow up in 3 months if she so desires. If injections are minimally helpful she can consider contact me and we will discuss viscosupplementation. (2) Tendinitis of right peroneus brevis tendon: Code(s): M76.71 - Peroneal tendinitis, right leg Category: Medical Plan: I recommend a ankle sleeve and I wrote her a prescription for physical therapy. Orders: Orders PT Evaluation and Treatment Today M76.71 - Peroneal tendinitis, right leg XR knee RT 3V Today M25.561 - Pain in right knee XR knee LT 3V Today M25.562 - Pain in left knee XR Knee Khurram 3V Today M25.569 - Pain in unspecified knee Coding Level of Care Code Est Pt Level 3 (42667) Complex EM visit Add On G2211 Diagnoses Bilateral primary osteoarthritis of knee M17.0 Tendinitis of right peroneus brevis tendon M76.71 CPT Codes Shoulders, Hips, Knees, - Knee Large Joint Injection : Bilateral Knee ([id number])
== END 2024-08-10 11:32 | disposition home or self-care (01) ==
LOC: HO.HOS 10:28
PROVIDERS: PCP Student in an Organized Health Care Education/Training Program; Visit Provider Orthopaedic Surgery
DX: M17.0 Bilateral primary osteoarthritis of knee (principal); M76.71 Peroneal tendinitis, right leg
CPT/HCPCS: 20610; 99213

== ENCOUNTER → 2024-08-10 10:33 | Outpatient (BNV) | payer OTHER, SELFPAY | PROVIDERS: Visit Provider Radiology Diagnostic Radiology | DX: M17.0 Bilateral primary osteoarthritis of knee (principal) | CPT/HCPCS: 73562 ==

== ENCOUNTER 2024-08-14 08:07 | Outpatient (REF) | payer OTHER, SELFPAY | END 2024-08-14 08:08 | disposition home or self-care (01) | LOC: HO.HOSX 08:07 | PROVIDERS: Visit Provider Physician Assistant | DX: Z13.89 Encounter for screening for other disorder (principal) ==

== ENCOUNTER 2024-08-18 11:25 | Outpatient (REF) | payer OTHER, SELFPAY ==
--- NOTE | ~2024-08-18 | CT_ITS ---
CLINICAL HISTORY: -consider repeat CT abd w contrast for peripancreatic LND Exam: CT abdomen and pelvis with IV contrast Comparison: CT/REG/GA/SR - CT ABDOMEN WO/W IV CON - 04/16/23 09:46 EST Findings: Unremarkable lung bases. Cholelithiasis without acute inflammation, gallbladder is nearly contracted. Liver, spleen, pancreas, adrenal glands, ureters, bladder, reproductive organs are unremarkable. 1.3 cm mildly heterogeneous septated hypodense lesion right kidney upper pole, previously 1.1 cm. Stable 1 cm intrarenal hypodense lesion lower pole right kidney, denser than simple fluid. Left renal simple cyst and too small to characterize hypodensities of the right kidney. Unremarkable GI tract, normal appendix. Mild atherosclerotic disease. Nonaneurysmal aorta. No lymphadenopathy by CT criteria. Small itz hepatis and portacaval lymph nodes, triangular-shaped less than 1 cm in short axis. No ascites or pneumoperitoneum. Unremarkable abdominopelvic wall. Degenerative changes of the lumbar spine. Impression: 1. No lymphadenopathy. 2. Mildly enlarged complex cyst in the upper pole, stable complex cyst in the lower pole of the right kidney, recommend renal MRI or CT for further evaluation. 3. Cholelithiasis without acute inflammation. This document has been electronically signed by: Nina Mata MD on 08/19/2024 11:56:34
--- OUTSIDE RECORDS SUMMARY | 2024-08-18 13:03 | XMS_ITS | Encounter Summary ---
Author Organization [employer] Address [address] [facility] [address] [place] [address] Care Team Providers Care Tool Builder Name Role Phone Emy Asekw MD Primary Care Pro vider Encounter Details Date Type Department Care Team ([facility] st Contact Info) Description 08/07/2023 Orders Only [facility] CHC MED & PEDS [address] [place] [address] Valeria Armas FNP [address] [place] [address] Social History Tobacco Use Types Packs/Day Years [...] Care Team (Late st Contact Info) Description 09/11/2024 9:30 AM EDT Office Visit [facility] MEDICINE [address] [place] [phone] Emy Askew MD [address] [place] [phone] documented as of this encounter Visit Diagnoses Not on filedocumented in this encounter Additional Health Concerns Assessment Noted Time PHQ-9 Depression Total Score: 16 023 10:16 AM EDT documented as of this encounter Care Teams Tool Builder Relationship Specialty Start Date End Date Emy Askew MD [address] [place] [id number] PCP - General Internal Medicine 07/25/22 documented as of this encounter
[2024-08-18] MEDS: iohexoL 350 MG/ML 100 ML INFUS..BTL 85 ML IV (14:25)
[2024-08-18] MEDS: Barium Sulfate Oral (Berry) 450 ML ORAL.SUSP 900 ML PO (14:25)
== END 2024-08-18 11:26 | disposition home or self-care (01) ==
LOC: HO.CT 11:25
PROVIDERS: PCP Student in an Organized Health Care Education/Training Program; Visit Provider Student in an Organized Health Care Education/Training Program
DX: R93.5 Abnormal findings on diagnostic imaging of other abdominal regions, including retroperitoneum (principal)
CPT/HCPCS: 74177; Q9967

== ENCOUNTER → 2024-08-18 11:29 | Outpatient (BNV) | payer OTHER, SELFPAY | PROVIDERS: PCP Student in an Organized Health Care Education/Training Program; Visit Provider Radiology Diagnostic Radiology | DX: N28.1 Cyst of kidney, acquired (principal) | CPT/HCPCS: 74177 ==

== ENCOUNTER 2024-09-03 08:52 | Outpatient (AMB) | payer OTHER, SELFPAY ==
[2024-09-03 08:58] VITALS: BP 142/85; PULSE 85; RESP 18; O2SAT 98; BMI 24.1
--- NOTE | 2024-09-03 08:58 | A.OFFVIS_ITS ---
Vital Signs 09/03/24 08:58 Height 5 ft 2 in Weight 132 lb BMI 24.1 BP 142/85 H Blood Pressure Location Lt brachial Position Sitting Respiration 18 Pulse 85 Pulse Source Pulse Oximeter Pulse Oximetry (%) 98 Oxygen Delivery Method Room Air Intake Visit Reasons: 1 Month Follow Up Attending Ambulatory Care Required: No Allergies codeine (Codeine) Allergy (Mild, Verified 09/03/24 08:57) BURNING IN CHEST, chest pain sulfamethoxazole (From Bactrim) Allergy (Mild, Verified 09/03/24 08:57) ITCH,RASH HPI Comments Details: Jennifer is back in my office after physical therapy. Last time she was seen here with cervicalgia neck pain. Unfortunately she went for physical therapy for her ankles which probably was referral by Dr. Chu. I recommended her to go in complete physical therapy for her neck. At the same time I recommended her to consider podiatry appointment. I will refer her to Dr. Christine Lucas for evaluation. Prior: very pleasant German-speaking 63 years old female who presents in my office with complains on severe neck pain. Reports that her pain started 1 month ago she denies any trauma any car accident or fall. She reports that many years she was suffering from mild cervicalgia however now pain became very severe. Apparently she tried ibuprofen which upset her stomach she stopped it she tried Tylenol with minimal effect. She never had physical therapy. She was sent for the x-ray of the cervical spine and results of the x-ray are as below. She reports that both flexing neck forward and backwards aggravate her pain. She can not sleep because of her pain and she takes multiple medications to help her to sleep. She takes Klonopin melatonin and trazodone she also takes trazodone for depression. Her past medical history significant for diabetes hypertension arthritis and depression. No history of heart attacks no history of lung problems. Her past surgical history significant for bilateral tubal ligation gallbladder surgery and 2 surgeries on the shoulder. 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 SOY (obstructive sleep apnea) COPD (chronic obstructive pulmonary disease) Sicca syndrome Constipation Alopecia Sjogrens syndrome Osteoarthritis Rheumatoid arthritis Fibromyalgia Back pain Difficulty swallowing GERD (gastroesophageal reflux disease) Depression Asthma Elevated cholesterol HTN (hypertension) Surgical History History of laryngoscopy Hx of hemorrhoidectomy History of bladder suspension procedure Hx of dilation and curettage Hx of tubal ligation History of repair of left rotator cuff Hx of colonoscopy History of esophagogastroduodenoscopy (EGD) Family History Father Cancer Mother Heart disease Diabetes Social History Household Members: Children and Other Household Members Other:: daughter, grandkids Are you a primary healthcare specialist to a significant other at home: No Do you presently have visiting nurse or other home services: No Alcohol intake: never Patient Tobacco Use Status: Never used Tobacco e-Cigarette/Vaping Use: Never Used Second Hand Smoke Exposure: No 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al status: disabled 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 Review of Systems Const All systems reviewed & are unremarkable except as noted in HPI and below ENT Reports Normal hearing present Neuro Reports Normal hearing present, Denies Abnormal speech present, Denies confusion and Denies Sensory deficit (Neuro) Psych Denies confusion Physical Exam Vital Signs: Last Vital Signs Pulse 85 09/03/24 08:58 Resp 18 09/03/24 08:58 BP 142/85 H 09/03/24 08:58 Pulse Ox 98 09/03/24 08:58 Oxygen Delivery Method Room Air 09/03/24 08:58 BMI result Body Mass Index 24.1 Const General: no acute distress; No confusion Orientation/consciousness: patient oriented x3 and No confusion Eyes General: appearance normal, both eyes and all related structures Pupils: Equal, round and reactive pupils present EOM: EOMs intact bilaterally Neck Other: Limited range of motion cervical spine Valsalva maneuver is positive for pain increase, flexing forward and flexing backwards aggravate her pain. Severe t enderness on palpation in projection of the entire cervical spine. Axial compression and axial extension of the neck aggravate her pain. Chest Chest palpation & inspection: normal inspection of the chest Resp Effort & Inspection: normal respiratory effort, able to speak in complete senten hernando, normal respiratory pattern, no audible wheezes and no cough Cardio Jugular venous distension: no JVD GI Inspection: Yes normal to inspection Neuro General: patient oriented x3, gait normal and No confusion Cranial nerves: Yes CN's II-XII intact bilaterally, Yes Equal, round and reactive pupils present, Yes Normal hearing present and Yes Ability to bilaterally elevate shoulders present Speech: No Abnormal speech present Gait exam (Neuro): Normal gait present Motor exam (neuro): 5/5 motor strength present throughout Sensory Exam: No Sensory deficit (Neuro) Extrem General: No pedal edema Psych Speech and movement: Normal speech and movement present Affect: normal affect Attitude: cooperative Thought process: Normal thought process present Thought content: Normal thought content present Insight: Good insight present (Psych) Judgement: Good judgement present (Psych) Assessment & Plan Assessment & Plan (1) Spondylolisthesis, cervical region: Code(s): M43.12 - Spondylolisthesis, cervical region Category: Medical (2) Spondylosis, cervical: Code(s): M47.812 - Spondylosis without myelopathy or radiculopathy, cervical region Category: Medical (3) Chronic ankle pain, bilateral: Code(s): M25.571 - Pain in right ankle and joints of right foot; M25.572 - Pain in left ankle and joints of left foot; G89.29 - Other chronic pain Category: Medical Plan Unfortunately patient did not go for physical therapy for cervical spine. She received physical therapy for her ankles. I suggested that I will refer her to pinball machine repairer Dr. Christine Lucas. I will send her for physical therapy for cervical spine and after that we will consider injections. Orders: Referrals 2 Podiatry Referral G89.29 - Other chronic pain, M25.571 - Pain in right ankle and joints of right foot, M25.572 - Pain in left ankle and joints of left foot Coding Level of Care Code Est Pt Level 3 (40383) Diagnoses Spondylolisthesis, cervical region M43.12 Spondylosis, cervical M47.812 Chronic ankle pain, bilateral M25.571; M25.572; G89.29
--- OUTSIDE RECORDS SUMMARY | 2024-09-03 09:01 | XMS_ITS | Clinical Summary ---
Author Organization 175 [facility] Address 175 [place] [address] Phone Care Team Providers Care General House Worker Name Role Phone Berkley Bird MD Primary [...] 07/09/2024 9:15 AM EDT Office Visit Orthopedic Surgery [facility] [address] [address] Magen Velasco DPM Controlled type 2 diabetes with neuropathy ([facility] V24, CMS/[facility] V28) (Primary Dx); Pain in toes of [...] 09/10/2024 9:00 AM EDT Office Visit Orthopedic Surgery - [place] [address] [phone] Magen Velasco DPM [address] [address] Health Maintenance Due Date Last Done Comments [...] BMP Blood Test 06/20/2025 06/20/2024, 04/06/2024, 02/17/2024 DTaP,Tdap,and Td Vaccines (4 - Td or Tdap) 11/16/2026 11/16/2016, 10/17/2011, 03/11/2006 Cholesterol Screening (Lipid Panel) 12/24/2028 12/25/2023 Hepatitis B Vaccines Completed 11/25/2007, 05/08/2007, 04/10/2007 Zoster Vaccines Completed 11/23/2020, 09/20/2020 Pneumococcal Vaccine: 50+ Years Completed 09/24/2022, 12/18/2017, 03/11/2006 RSV Immunization Adult [...] 04/06/2024 6:[address] [facility] Potassium 3.5 3.5 - 5.5 [...] [facility] Comment:Calculation based on the Chronic Kidney Disease Epidemiology Collaboration (CKD-EPI) equation refit without adjustment for race. BUN/Creatinine Ratio 18.1 LAB CHEMISTRY METHOD 04/06/2024 6:[address] [facility] Calcium 10.3 8.5 - 10.5 mg/dL LAB CHEMISTRY METHOD 04/06/2024 6:[address] [facility] AST (SGOT) 15 10 - 42 unit/L LAB CHEMISTRY METHOD 04/06/2024 6:[address] [facility] ALT (SGPT) 22 10 - 60 unit/L LAB CHEMISTRY METHOD 04/06/2024 6:42 PM EST [facility] Alkaline Phosphatase 140(H) 42 - 121 unit/L LAB CHEMISTRY METHOD 04/06/2024 6:42 PM EST [facility] Total Protein 7.6 6.0 - 8.0 g/dL LAB CHEMISTRY METHOD 04/06/2024 6:42 PM EST [facility] Albumin 3.6 3.2 - 5.0 g/dL LAB CHEMISTRY METHOD 04/06/2024 6:[address] [facility] Total Bilirubin 0.3 0.0 - 1.4 mg/dL LAB CHEMISTRY METHOD 04/06/2024 6:[address] [facility] Blood Venous blood specimen / Unknown Venipuncture / Unknown 04/06/2024 2:00 PM EST 04/06/2024 2:00 PM EST Magen Velasco DPM LAB BLOOD ORDERABLES Final Result [facility] [address] [place] [address], from Last 3 Months or Most Recently Relevant to [place] [address] [facility] MEDICARE Member Subscriber Plan / Payer (Ef fective 2023-Present) Name:Jennifer Palmer Relation to Subscriber:Self Name:Jennifer Palmer Payer ID:[id number] Group ID:[id number] Type:Not on file Address: [place] [address] [place] [address] Care Teams General House Worker Relationship Specialty Start Date End Date Berkley Bird MD [address] [address] PCP - General Internal Medicine 02/20/24
--- OUTSIDE RECORDS SUMMARY | 2024-09-03 09:01 | XMS_ITS | Encounter Summary ---
Author Organization [employer] Address [address] [facility] [address]t [place] [address] Care Team Providers Care Sample Selector Name Role Phone Emy Askew MD Primary Care Pro vider Encounter Details Date Type Department Care Team ([facility] st Contact Info) Description 08/07/2023 Orders Only [facility] MED & PEDS [address] [place] [address] Valeria Armas FNP [address] [place] [address] Social History Tobacco Use Types Packs/Day Years [...] Description 09/11/2024 9:30 AM EDT Office Visit [facility] MEDICINE [address] [place] [phone] Emy Askew MD [address] [place] [address] documented as of this encounter Visit Diagnoses Not on filedocumented in this encounter Additional Health Concerns Assessment Noted Time PHQ-9 Depression Total Score: 16 023 10:16 AM EDT documented as of this encounter Care Teams Sample Selector Relationship Specialty Start Date End Date Emy Askew MD [address] [place] [id number] PCP - General Internal Medicine 07/25/22 documented as of this encounter
== END 2024-09-03 10:00 | disposition home or self-care (01) ==
LOC: HO.PMC 08:52
PROVIDERS: PCP Student in an Organized Health Care Education/Training Program; Visit Provider Anesthesiology
DX: M43.12 Spondylolisthesis, cervical region (principal); M47.812 Spondylosis without myelopathy or radiculopathy, cervical region; M25.571 Pain in right ankle and joints of right foot; M25.572 Pain in left ankle and joints of left foot; G89.29 Other chronic pain
CPT/HCPCS: 99213

== ENCOUNTER → 2024-09-03 08:52 | Outpatient (BNVA) | payer OTHER, SELFPAY | PROVIDERS: PCP Student in an Organized Health Care Education/Training Program; Visit Provider Anesthesiology | DX: M43.12 Spondylolisthesis, cervical region (principal); M47.812 Spondylosis without myelopathy or radiculopathy, cervical region; M25.571 Pain in right ankle and joints of right foot; M25.572 Pain in left ankle and joints of left foot; G89.29 Other chronic pain | CPT/HCPCS: 99212 ==

== ENCOUNTER 2024-09-10 08:54 | Outpatient (RCR) | payer OTHER, SELFPAY ==
--- NOTE | 2024-08-24 11:39 | MHC.PT.EP ---
[facility] [place] Office [place] Office [place] Office [address] Skye Waterman [address] [phone] F: [phone] F: [phone] F: [phone] F: [phone] Physical Therapy Plan of Care Date of Evaluation: 08/24/24 Date of Surgery: n/a Diagnosis: Peroneal tendinitis, right leg Tendinitis of right peroneus brevis tendon Assessment: Pt is a pleasant 64yo F who presents to PT with R ankle pain. She reports onset of pain after rolling her ankle ~2-3 years ago. She presents to PT with current impairments in pain, decreased ROM, decreased strength, swelling, and impaired gait. She is limited functionally by prolonged standing, walking, stair navigation, and sleeping. She is a good candidate for skilled PT in order to address current impairments to facilitate return to PLOF. She is recommended to be seen 2x/week for 4 weeks and will be reassessed at that time Frequency and Duration: The patient will be seen 2x/week for 4 weeks Short Term Goals: Pt will be I with HEP to promote self management of symptoms Pt will improve R dorsiflexion ROM to 5 deg Naphthalene Still Operator Goals: Pt will improve R dorsiflexion and plantar flexion strength to at least 4/5 to assist with prolonged standing and walking Pt will ascend/descend 1 flight of stairs safely with minimal to no pain Treatment Plan: Modalities to reduce pain, spasms and effusion. Manual therapy to restore motion and function. Therapeutic exercise to improve strength and flexibility. Neuromuscular re-education for posture and balance. Therapeutic activities to return to functional activities of daily living. Electronically signed by: Shi Barber, PT, DPT Please sign and return to therapist. Thank you for your referral.
--- NOTE | 2024-12-15 14:42 | MHC.PT.DC ---
[facility] [place] Office [place] Office [place] [facility] [address] Skye Waterman [address] [phone] F: [phone] F: [phone] F: [phone] F: [phone] Physical Therapy Discharge Report Diagnosis: Peroneal tendinitis, right leg Tendinitis of right peroneus brevis tendon Date of Surgery: n/a Date of Evaluation: 08/24/24 Date of Discharge: 12/15/24 Treatments to Date: 3 Cancellations to Date: 1 No Shows to Date: 4 Discharge Status: Visit Non-compliance Discharge Summary: Pt was seen for skilled PT from 08/24/24-09/02/24. She had 1 cancellation and 4 no show appointments since SOC. She is being D/C for visit non compliance per [facility] attendance policy. Pt current level of function unknown at this time Electronically signed by: Shi Da Silva, PT, DPT Please sign and return to therapist. Thank you for your referral.
== END 2024-12-15 14:42 | disposition home or self-care (01) ==
LOC: HO.PT 08:54
PROVIDERS: PCP Student in an Organized Health Care Education/Training Program; Visit Provider Orthopaedic Surgery
DX: M76.71 Peroneal tendinitis, right leg (principal)
CPT/HCPCS: 97110; 97140; 97161

== ENCOUNTER 2024-09-19 08:13 | Outpatient (REF) | payer OTHER, SELFPAY ==
--- OUTSIDE RECORDS SUMMARY | 2024-09-19 08:18 | XMS_ITS | Data Portability ---
Author Organization [place] [facility], Allergy Address [address] [place] [phone] Assessment No assessment recorded. Plan of Treatment Reminders Order Date Submit Date Provider Last Modified By Organization Details Last Modified Time Details Appointments None recorded. Lab None recorded. Referral None recorded. Procedures None recorded. Surgeries None recorded. Imaging [place], modified barium swallow study [address] [place] [address] Diagnosit Imaging Dept, [address] [place] [address], [address], 5 11:51:40 Medication Orders None recorded. Patient TargetsNo targets recorded. Patient InstructionsNo instructions recorded. Reason for Referral None Reported. Problems Name Problem SNOMED Code Status Onset Date Resolution Date Notes Provider Name and Address Organization Details Recorded Time Hypertrop hy of salivary gland 31780631 Active 2013 Diseases of the salivary glands: Hypertroph y; CMS Risk: moderate risk CMS Treatment: establishe d problem (to examiner): stable or improved N ote: Date Diagnosed: 12/30/2013 2:35 PM (527.1) Not Available [facility] 4 02:27:37 Chronic sialadeni tis 202650446 Active 2016 Chronic sialoadeni tis; Note: Date Diagnosed: 07/04/2016 2:17 PM (K11.23) Not Available [facility] 4 02:27:48 Sj gren's syndrome 34061001 Active 2016 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]; Note: Date Diagnosed: 07/04/2016 2:17 PM (M35.0) Not Available [facility] 4 02:27:47 Dysphonia 30731860 Active 2017 Hoarseness ; Note: Date Diagnosed: 02/17/2018 9:52 AM (R49.0) Not Available [facility] 4 02:27:44 Dysphagia 59671262 Active 2018 Other dysphagia; Note: Date Diagnosed: 05/13/2018 9:47 AM (R13.19) Not Available [facility] 4 02:27:43 Disturban ce of salivary secretion 73799855 Active 2018 Xerostomia ; Note: Date Diagnosed: 05/13/2018 9:47 AM (K11.7) Not Available [facility] 4 02:27:54 Bilateral hearing loss 89953439 Active 2018 Other specified hearing loss, bilateral; Note: Date Diagnosed: 08/12/2018 10:01 AM (H91.8X3) Not Available [facility] 4 02:27:41 Oropharyn geal dysphagia 59101484 Active 2024 UMESH DIAZ MD [address] [place] [address], [place], [address] , [facility] 5 13:35:47 Problem Notes None recorded. Procedures Surgical History Date Name Laterality Status Provider Name and Address Organization Details Recorded Time 03/13/2024 FFL_RE completed UMESH DIAZ MD [address] [place] [address], [phone], [facility] 03/13/2024 13:36:13 Imaging Results None recorded. Procedure Notes None recorded. Medical Equipment None Reported. Allergies Allergen ID Allergen Name Allergen Category Reaction Reaction Severity Criticality Documentation Date Start Date Code Code System Note Provider Name and Address Organization Details Recorded Time 21119 Bactrim medicatio n other Not available Not available 07/16/2023 91974 9 RxNorm React ion: unkno wn, unspe cifie d;; Not Available [facility] 4 00:55:51 74131 codeine sulfate medicatio n other Not available Not available 07/16/2023 02527 RxNorm React ion: unkno wn, unspe cifie d;; Not Available [facility] 4 00:55:56 Medications Name Sig Start Date Stop Date Status Note LastModified by Organization Details LastModified Time medbox status USE DIRECTED active Not Available Not Available No t Available furosemid e 40 mg tablet TAKE 1 TABLET BY MOUTH EVERY MORNING active Not Available Not Available No t Available Augmentin 875 mg-125 mg tablet 2017 active Medicati on ID: [id number] D uration Value: 5 Prescri bed By [...] nebulizat ion 2018 active Medicati on ID: 448588 D uration Value: 5 Brand Name: albutero [...] mg tablet 2018 active Medicati on ID: 664696 D uration Value: 30 Brand Name: lisinopr [...] mg tablet 2018 active Medicati on ID: 255088 D uration Value: 30 Brand Name: buspiron e Send Method: E-Prescr ibed Sub s Allowed: subs OK Speci al Instruct ion: TAKE 1 TABLET BY MOUTH THREE TIMES DAILY NEEDED ANXIETY Medicati onGeneri cName: buspiron e Not Available Not Available Not Available Tiazac 120 mg capsule,e xtended release 02/04 completed Medicati on ID: [id number] Re ason: () Brand Name: Tiazac S [...] elayed release 2018 active Medicati on ID: 610134 D uration Value: 30 Brand Name: omeprazo le Send Method: E-Prescr ibed Sub s Allowed: subs OK Speci al Instruct ion: TAKE 1 CAPSULE TWICE DAILY IN THE MORNING AND IN THE EVENING 1 HORA AN KALEN DE LAS COMIDAS Medicati onGeneri cName: omeprazo le Not Available Not Available Not Available Aspirin Childrens 81 mg chewable tablet 2013 active Medicati on ID: 49555 Br and Name: Aspirin Children s Send [...] mg tablet 2018 active Medicati on ID: 209704 D uration Value: 30 Brand Name: levon post ne Send Method: E-Prescr ibed Sub s Allowed: subs OK Speci al Instruct ion: TAKE 2 TABLETS BY MOUTH ONCE DAILY IN THE MORNING Medicati onGeneri cName: levon jenkinsqui ne Not Available Not Available Not Available ibuprofen 600 mg tablet 2018 active Medicati on ID: 458737 D uration Value: 30 Brand Name: ibuprofe [...] 24 hr 2018 active Medicati on ID: 874371 D uration Value: 30 Brand Name: metformi n Send Method: E-Prescr ibed Sub s Allowed: subs OK Speci al Instruct ion: TAKE 1 TABLET BY MOUTH TWICE DAILY IN THE MORNING AND IN THE EVENING W ITH FOOD Med icationG enericNa me: metformi n Not Available Not Available Not Available Ambien 5 mg tablet 2013 active Medicati on ID: [id number] Br and Name: Ambien S end Method: [...] mg capsule 2013 active Medicati on ID: 60223 Br and Name: Kade Rivera end Method: [...] inhalatio n 2018 active Medicati on ID: 000636 D uration Value: 30 Brand Name: Breo [...] subcutane ous 2018 active Medicati on ID: 539744 D uration Value: 35 Brand Name: Humulin [...] Updated DateTime 03/13/2024 157.48 cm 26 kg/m2 00860.12 g Shantell Wise [place] [facility] 03/13/2024 13:27:58 Social History None recorded. Functional Status None recorded. Mental Status None recorded. Family History Nothing Reported. Medical History No medical history recorded. Gynecological HistoryNo gynecological history recorded. Obstetrics History GPAL:G 0 P 0 0 0 0 Past Encounters Encounter ID Performer Location Encounter Start Date Encounter Closed Date Diagnosis/Indication Diagnosis SNOMED-CT Code Diagnosis ICD10 Code Diagnosis Note [id number] UMESH DIAZ MD [facility] [address] [place] [address] 03/13/2024 13:18:07 03/13/2024 13:52:50 Oropharyngeal dysphagia 28209265 R13.12 Exam and laryngosco py were normal. I recommend a swallow study (MBS) to reassess her swallow. F/u after. If normal I would suggest GI referral especially given her Sjogrens. Sj gren's syndrome 59658974 M35.00 Encouraged hydration. Will consider GI referral [...] Mendez Member ID Guarantor Name 03/13/2024 1 [facility] - DOS ON OR AFTER 2022 - MEDICARE ADVANTAGE [place] & [place] (MEDICARE REPLACEMENT/AD VANTAGE - PPO) Jennifer Gu [id number] Jennifer Gu Notes Date Note Type Note [...] eyes and dry mouth. UMESH DIAZ MD [address] [place] [address], [phone], [facility] 03/13/2024 13:43:36 OBGyn Episode No OBEpisode recorded.
--- OUTSIDE RECORDS SUMMARY | 2024-09-19 08:18 | XMS_ITS | Clinical Summary ---
Author Organization 175 [facility] Address [address] [place] [address] Phone Care Team Providers Care Proteomics Scientist Name Role Phone Berkley Bird MD Primary [...] 9:15 AM EDT Office Visit Orthopedic Surgery - [address] [address] Magen Velasco DPM Controlled type 2 diabetes with neuropathy ([facility] V24, [facility] V28) (Primary Dx); Pain in toes of [...] 07/09/2024 9:11 AM EDT Plan of Treatment Health Maintenance Due Date Last Done Comments [...] Control Test (HGBA1C) 06/24/2024 12/25/2023 Influenza Vaccine (#1) 2024 , 12/15/2020, 12/01/2019, Additional history exists Depression Screening [...] LAB CHEMISTRY METHOD 04/06/2024 6:42 PM EST [facility] Potassium 3.5 3.5 - 5.5 mmol/L LAB CHEMISTRY METHOD 04/06/2024 6:42 PM [facility] Chloride 102 96 - 110 mmol/L LAB CHEMISTRY METHOD 04/06/2024 6:42 PM [facility] CO2 31 21 - 32 mmol/L LAB CHEMISTRY METHOD 04/06/2024 6:42 PM [facility] Anion Gap 5 3 - 11 LAB CHEMISTRY METHOD 04/06/2024 6:42 PM [facility] Glucose 183(H) 70 - 100 mg/dL LAB CHEMISTRY METHOD 04/06/2024 6:42 PM [facility] BUN 17 5 - 25 mg/dL LAB CHEMISTRY METHOD 04/06/2024 6:42 PM [facility] Creatinine 0.94 0.50 - 1.10 mg/dL LAB CHEMISTRY METHOD 04/06/2024 6:42 PM [facility] eGFR 67 >=60 mL/min/1. 73m2 LAB CHEMISTRY METHOD 04/06/2024 6:42 PM [facility] Comment:Calculation based on the Chronic Kidney Disease Epidemiology Collaboration (CKD-EPI) equation refit without adjustment for race. BUN/Creatinine Ratio 18.1 LAB CHEMISTRY METHOD 04/06/2024 6:42 PM [facility] Calcium 10.3 8.5 - 10.5 mg/dL LAB CHEMISTRY METHOD 04/06/2024 6:42 PM [facility] AST (SGOT) 15 10 - 42 unit/L LAB CHEMISTRY METHOD 04/06/2024 6:42 PM [facility] ALT (SGPT) 22 10 - 60 unit/L LAB CHEMISTRY METHOD 04/06/2024 6:42 PM [facility] Alkaline Phosphatase 140(H) 42 - 121 unit/L LAB CHEMISTRY METHOD 04/06/2024 6:42 PM [facility] Total Protein 7.6 6.0 - 8.0 g/dL LAB CHEMISTRY METHOD 04/06/2024 6:42 PM [facility] Albumin 3.6 3.2 - 5.0 g/dL LAB CHEMISTRY METHOD 04/06/2024 6:42 PM EST [facility] Total Bilirubin 0.3 0.0 - 1.4 mg/dL LAB CHEMISTRY METHOD 04/06/2024 6:42 PM EST [facility] Blood Venous blood specimen / Unknown Venipuncture / Unknown 04/06/2024 2:00 PM EST 04/06/2024 2:00 PM EST us Magen Velasco DPM LAB BLOOD ORDERABLES Final Result [facility] [address] [place] [address], from Last 3 Months or Most Recently Relevant to [place] [address] [facility] MEDIC[facility] Member Subscriber Plan / Payer (Ef fective 2023-Present) Name:Jennifer Payton Relation to Subscriber:Self Name:Jennifer Palmer Payer ID:[id number] Group ID:[id number] Type:Not on file Address: [place] [address] [place] [address] Care Teams Proteomics Scientist Relationship Specialty Start Date End Date Berkley Bird MD [address] [address] PCP - General Internal Medicine 02/20/24
[2024-09-19 09:46] LABS: Alanine Aminotransferase 17 U/L (0-31); Albumin Level 4.1 g/dL (3.5-5.0); Alkaline Phosphatase 141 U/L (39-117); Anion Gap 10 (12-20); Aspartate Amino Transferase 20 U/L (5-31); Blood Urea Nitrogen 14 mg/dL (9-16); Calcium 9.0 mg/dL (8.4-10.2); Carbon Dioxide 26 mmol/L (22-29); Chloride 108 mmol/L (96-108); Estimated Glomerular Filt Rate > 60; Magnesium 2.0 mg/dL (1.6-2.6); Potassium 3.1 mmol/L (3.3-5.1); Sodium 141 mmol/L (135-145); Total Protein 7.5 g/dL (6.5-8.0)
== END 2024-09-19 08:14 | disposition home or self-care (01) ==
LOC: HO.LAB 08:13
PROVIDERS: PCP Student in an Organized Health Care Education/Training Program; Visit Provider Internal Medicine Cardiovascular Disease
DX: E87.6 Hypokalemia (principal); N28.1 Cyst of kidney, acquired; R06.02 Shortness of breath
CPT/HCPCS: 36415; 80053; 83735

== ENCOUNTER 2024-09-21 09:36 | Outpatient (AMB) | payer OTHER, SELFPAY ==
[2024-09-21 09:43] VITALS: BP 110/80; PULSE 87; O2SAT 95; BMI 25.2
--- NOTE | 2024-09-21 09:43 | A.OFFVIS_ITS ---
Vital Signs 09/21/24 09:43 Height 5 ft 2 in Weight 138 lb 0.15 oz BMI 25.2 BP 110/80 Blood Pressure Location Lt brachial Position Sitting Pulse 87 Pulse Source Pulse Oximeter Pulse Oximetry (%) 95 Oxygen Delivery Method Room Air Intake Visit Reasons: T2DM/elevated PTH Intake Note: Patient present today for Type 2 Diabetes Mellitus and elevated PTH. Last Diabetic eye exam: 04/2024 Last Podiatry Visit: 07/2024 Random Glucose: 248 mg/dl HgA1C: 7.9% Automobile Insurance Claim Examiner Required: Yes Automobile Insurance Claim Examiner Language: Event Mgr Services: Automobile Insurance Claim Examiner Present Automobile Insurance Claim Examiner Name: [id number] Information Interpreted: non-clinical & clinical Accompanied by: Self / Same As Patient Allergies codeine (Codeine) Allergy (Mild, Verified 09/21/24 09:48) BURNING IN CHEST, chest pain sulfamethoxazole (From Bactrim) Allergy (Mild, Verified 09/21/24 09:48) ITCH,RASH Medication List - Last Reconciled 09/21/24 by Haydee Roper MD aspirin 81 mg PO DAILY atorvastatin 20 mg PO BEDTIME blood glucose control high,low (FreeStyle Control solution) Twice a month blood sugar diagnostic (FreeStyle Lite Strips) 4 times a day 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 meter (FreeStyle Lite Meter kit) As directed calcium carbonate 600 mg PO QAM carvedilol 25 mg PO BID cevimeline 1 cap PO QAM cholecalciferol (vitamin D3) 50 mcg PO DAILY clonazepam 0.5 mg PO DAILY PRN clonidine HCl 0.1 mg PO BID dapagliflozin propanediol (Farxiga) 10 mg PO DAILY diltiazem HCl ER 360 mg PO DAILY docusate sodium (DOK) 100 mg PO DAILY duloxetine 60 mg PO BEDTIME folic acid 1 mg PO DAILY furosemide 20 mg PO DAILY gabapentin 300 mg PO BID hydrocortisone 2.5% (Proctosol HC) 1 appl NV BEDTIME PRN insulin glargine (Lantus U-100 Insulin) 10 units subcut QPM lancets (TRUEplus Lancets) 4 times a day leflunomide 20 mg PO DAILY loratadine 10 mg PO DAILY PRN losartan 100 mg PO DAILY melatonin 10 mg PO BEDTIME PRN naproxen 500 mg PO BID PRN ondansetron 4 mg PO Q8H PRN semaglutide (Ozempic) 2 mg (0.75 mL) subcut QWEEK sennosides (senna) 17.2 mg PO DAILY PRN topiramate 25 mg PO BEDTIME HPI Comments Details: 63-year-old female coming in today for follow up of type 2 diabetes mellitus as well as hyperparathyroidism. Last visit: 06/16/2024 Past medical history: Diabetes type 2 hypertension, dyslipidemia, COPD, SOY, GERD, migraines, depression, Sjogren's syndrome, arthritis Diabetes mellitus History of diabetes Diagnosed in 2015 Prior therapy: Trulicity stopped in October 2023 due to worsening control , acarbose 50mg TID before meals. Intolerant of metformin as it gave her reflux Current regimen: Farxiga 10 mg daily Ozempic 1 mg weekly on Wednesdays ( increased from 0.5 mg to 1 mg in January 2024) PCP started Lantus 10 units daily at bedtime beginning of September 2024 when sugars were elevated in the 300s Reports symptoms of hyperglycemia including polyphagia, polyuria, polydipsia. Denies any hypoglycemic symptoms. SMBG's forgot meter today Checks fasting sugars daily 155 , 165, 145 , a few 200 after steroid injections Random Glucose: 263 mg/dl HgA1c: 8.2% 12/25/23 a1c 8.1 % 06/16/24 a1c 7.9 % POC 09/21/24 Complications Eye exam: Last Diabetic Eye exam: 04/28, no retinopathy Last Podiatry Visit: 07/26 Neuropathy: does report symptoms of neuropathy with burning pain in feet , on gabapentin 400 mg BID Kidney disease: urine tonny /creatinf ratio from elevated at 155 up from 19 back in 2022, GFr >60 from December 2023 Macrovascular complications: No history of macrovascular complications. Statin: on atorvastatin 20 mg daily , LDL 65 from Dec 2023 at goal of <70 but TGL high at 232 CARL/ARB: on losartan 100 mg daily BP at goal today on corge 25 BID , losartan 100 mg daily , furosemide 20 mg daily Exercise: limited she says Diet control: Daughter lives with her and does most of the cooking BF 7 am: bread with eggd, coffee with 2 sugars, 1 creamer Lunch at noon: cereal conrflakes with milk Dinner at 4 pm: rice with beans , pork or chicken No dessert Soda or jim eri not diet twice a day with meals He has never had any hospitalizations for hyperglycemia/hypoglycemia. Hyperparathyroidism Lab from 12/25/2023 showed elevated PTH level of 141.5. Unclear why this was done. Her calcium levels have always been normal mostly anywhere from 9.2-10.1. Albumin of 4 mostly. Once she had a borderline high calcium of 10.2, however albumin was 3.9 so if we corrected this would be 10. No ionized calcium in the chart. Normal vitamin-D level of 53.3. Normal kidney function from December 2023 with the GFR of greater than 60, creatinine of 0.73. DEXA scan September 2023 showed normal bone density. No history of kidney stones, renal ultrasound from June 2023 without any evidence of kidney stones. Mother had kidney stones , sister had kidney stones Surgical menopause with hysterectomy at age 25 for control ??? per patient still had ovaries, started having hot flashes at 50 Vitamin D 2000 units daily on calcium 600 mg daily plus some milk in cereal, no yogurt, cheese often Interval history Labs from 02/17/2024 showed normal calcium of 9.2, with normal ionized calcium of 5.1, phosphorus normal at 3, magnesium of 2.2, normal kidney function, PTH of 96.5, 24 hour urine collection showed 24 hour urine calcium of 177 which for her creatinine level low slightly elevated, fractional excretion of calcium is 0.028 Concern for primary hyperaldosteronism History of hypertension, currently well-controlled on losartan 100 mg daily, Coreg 25 mg b.i.d. and furosemide 20 mg daily. Noted to have history of hypokalemia on chart review with potassium recently at 3 from May 2024 No history of stroke or heart attack. Physical exam General: sitting comfortably in no acute distress HEENT: normocephalic/atraumatic, Neck: supple, symmetrical Cardiac: normal heart sounds Pulm: normal breath sounds B/L, no added breath sounds Abd: not distended, no tenderness Extremities: no edema, no signs of myxedema Neuro: AAO x3, Speech: normal, no facial droop, moving all 4 extremities Skin: no rash Foot exam:06/26 intact sensation to monofilament, intact pulses, intact vibration Laboratory Tests 03/21/18 05/04/18 05/06/18 09:30 08:02 07:00 Creatinine Estimated GFR Glucose (Clinic) Random Glucose Hemoglobin A1c % Calcium 9.6 8.4 D Albumin 4.1 Triglycerides Cholesterol LDL Cholesterol, Calc HDL Cholesterol 25-OH Vitamin D Total TSH PTH Intact Urine Creatinine Urine Microalbumin Microalb/Creat Ratio 11/27/18 12/08/19 12/21/20 08:00 13:14 14:35 Creatinine Estimated GFR Glucose (Clinic) Random Glucose Hemoglobin A1c % 5.7 Calcium 9.9 Albumin 3.8 Triglycerides Cholesterol LDL Cholesterol, Calc HDL Cholesterol 25-OH Vitamin D Total TSH PTH Intact Urine Creatinine Urine Microalbumin Microalb/Creat Ratio 01/21/21 07/12/21 04/11/22 22:07 16:53 15:11 Creatinine Estimated GFR Glucose (Clinic) Random Glucose Hemoglobin A1c % Calcium 9.6 10.1 9.5 Albumin 4.0 Triglycerides Cholesterol LDL Cholesterol, Calc HDL Cholesterol 25-OH Vitamin D Total TSH PTH Intact Urine Creatinine Urine Microalbumin Microalb/Creat Ratio 10/04/22 10/26/22 04/04/23 09:42 13:54 08:42 Creatinine Estimated GFR Glucose (Clinic) Random Glucose Hemoglobin A1c % 8.2 7.8 H Calcium 9.3 10.2 D 9.2 D Albumin 3.8 3.9 3.9 Triglycerides Cholesterol LDL Cholesterol, Calc HDL Cholesterol 25-OH Vitamin D Total TSH PTH Intact Urine Creatinine 115.21 Urine Microalbumin 22.0 Microalb/Creat Ratio 19.0 12/25/23 12/25/23 02/10/24 07:05 07:08 12:52 Creatinine 0.73 Estimated GFR > 60 Glucose (Clinic) 207 H Random Glucose 175 H Hemoglobin A1c % 8.2 H Calcium 9.5 Albumin 4.0 Triglycerides 232 H Cholesterol 154 LDL Cholesterol, Calc 64 HDL Cholesterol 44 25-OH Vitamin D Total 53.3 TSH 1.65 PTH Intact 141.5 H Urine Creatinine 50.21 Urine Microalbumin 78.0 Microalb/Creat Ratio 155.3 H Laboratory Tests 04/11/22 04/04/23 12/25/23 15:11 08:42 07:08 Potassium 3.1 L 3.5 Renin Activity 0.95 Aldosterone 8 Aldosterone/Renin Ratio 8.4 Random Cortisol 11.7 Laboratory Tests 04/04/23 12/25/23 02/17/24 08:42 07:05 06:30 Sodium Potassium Creatinine Estimated GFR Random Glucose Calcium Ionized Calcium Phosphorus Magnesium Albumin Renin Activity 0.95 Aldosterone 8 Renin PTH Intact Ur 24 Hour Volume 1625 Ur Creatinine mg/dL 35.04 Ur Creatinine 24 Hour 0.6 L Microalb/Creat Ratio 155.3 H Ur Sodium 24 Hour 123.5 Ur Calcium 24 Hr 177 Calcium/Creat 24 Hr 321 H Ur Total Volume 1625 Ur Aldosterone 24 Hr 1.3 Urine Creatinine 0.55 02/17/24 06/04/24 11:20 09:51 Sodium 142 143 Potassium 3.4 3.0 L Creatinine 0.82 0.68 Estimated GFR > 60 > 60 Random Glucose 232 H 165 H Calcium 9.2 9.2 Ionized Calcium 5.1 Phosphorus 3.0 Magnesium 2.2 Albumin 3.8 Renin Activity Aldosterone 9 Renin 0.47 PTH Intact 96.5 H Ur 24 Hour Volume Ur Creatinine mg/dL Ur Creatinine 24 Hour Microalb/Creat Ratio Ur Sodium 24 Hour Ur Calcium 24 Hr Calcium/Creat 24 Hr Ur Total Volume Ur Aldosterone 24 Hr Urine Creatinine Imaging BONE DENSITOMETRY 09/24 CLINICAL INDICATION: Encounter for screening for osteoporosis. COMPARISON: Baseline BD dated 11/17/2010. TECHNIQUE: Using a PromptCare DXA System (software version: 13.1) manufactured by [employer], dual-energy x-ray absorptiometry was performed of the lumbar spine and left hip. The images are of good technical quality. Summary results are attached. FINDINGS: AP SPINE L1-L4: Current: BMD 1.325 g/cm2, Z-score 2.7, T-score 1.2, normal, 0.4% increase from baseline (<5% change is not significant). Baseline: BMD 1.320 g/cm2. LEFT FEMUR, NECK: Current: BMD 1.085 g/cm2, Z-score 1.8, T-score 0.3, normal. Baseline: BMD 1.110 g/cm2. LEFT FEMUR, TOTAL: Current: BMD 1.168 g/cm2, Z-score 2.4, T-score 1.3, normal, 1.1% decrease from baseline (<5% change is not significant). Baseline: BMD 1.181 g/cm2. IDENTIFIED RISK FACTORS: Recurrent falls. Hysterectomy. Menopause. HISTORY OF FRACTURE: None listed. MEDICATIONS: Calcium supplement and/or multivitamin. Vitamin D. MM/XR DEXA axial skeleton IMPRESSION: 1. DIAGNOSIS: Normal bone density based on the lowest T-score value of 0.3 in the femoral neck applying World Health Organization criteria. 2. 10-YEAR FRACTURE RISK PREDICTION, FRAX: According to the guidelines, FRAX calculation should only be performed on patients in the osteopenia bone density category.?Therefore, FRAX was not performed on this patient.? EXAMINATION: ULTRASOUND RENAL WITH DOPPLER 06/25 CLINICAL INFORMATION: Hypertension; question renal artery stenosis. COMPARISON: None. TECHNIQUE: Real-time grayscale, color Doppler, and duplex Doppler evaluation of the kidneys and renal vasculature was performed. FINDINGS: RENAL MEASUREMENTS: Right: 11.2 x 5.4 x 5.8 cm (Sag x AP x TV) Left: 12.0 x 4.7 x 4.7 cm (Sag x AP x TV) The renal parenchyma appears normal. At the interpolar right kidney, 1.5 cm and 0.7 cm benign, simple cysts are seen, which require no imaging follow-up. At the interpolar aspect of the left kidney, a 2.7 cm benign, simple cyst, which requires no imaging follow-up. No definite renal calculus is seen. There is no hydronephrosis. DOPPLER INTERROGATION: Aorta: 83 cm/sec Right Main Renal Artery: Proximal: 94 cm/sec Mid: 124 cm/sec Distal: 66 cm/sec Left Main Renal Artery: Proximal: 96 cm/sec Mid: 89 cm/sec Distal: 84 cm/sec Renal-Aortic Ratio (RAR): Right: 1.49 Left: 1.16 Bilateral upper pole, interpolar and lower pole segmental arteriolar resistive indices are within normal limits. Bilateral upper pole, interpolar and lower pole segmental arteriolar pulse doppler waveforms are unremarkable, with uniformly rapid upstrokes and no parvus et tardus configuration. US/US renal BI IMPRESSION: Unremarkable renal ultrasound including Doppler. No hemodynamically significant renal artery stenosis is noted bilaterally. [facility] Medical History (Updated 09/03/24 @ 10:08 by Vic Montiel MD) Hyperparathyroidism DM2 (diabetes mellitus, type 2) Vitamin D deficiency 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 rheumatoid arthritis prison (current) use of insulin SOY (obstructive sleep apnea) COPD (chronic obstructive pulmonary disease) Sicca syndrome Constipation Alopecia Sjogrens syndrome Osteoarthritis Rheumatoid arthritis Fibromyalgia Back pain Difficulty swallowing GERD (gastroesophageal reflux disease) Depression Asthma Elevated cholesterol HTN (hypertension) Surgical History History of laryngoscopy Hx of hemorrhoidectomy History of bladder suspension procedure Hx of dilation and curettage Hx of tubal ligation History of repair of left rotator cuff Hx of colonoscopy History of esophagogastroduodenoscopy (EGD) Family History Father Cancer Mother Heart disease Diabetes Social History Household Members: Children and Other Household Members Other:: daughter, grandkids Are you a primary care services manager to a significant other at home: No Do you presently have visiting nurse or other home services: No Alcohol intake: never Patient Tobacco Use Status: Never used Tobacco e-Cigarette/Vaping Use: Never Used Second Hand Smoke Exposure: No 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al status: disabled 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 Physical Exam Vital Signs: Last Vital Signs Pulse 87 09/21/24 09:43 BP 110/80 09/21/24 09:43 Pulse Ox 95 09/21/24 09:43 Oxygen Delivery Method Room Air 09/21/24 09:43 BMI result Body Mass Index 25.2 Results AMB Hemoglobin A1c AMB Hemoglobin A1c 7.9 % Last Edit by INOCENCIA Albrecht on 09/21/24 10:24 Results Reviewed Results Reviewed: Laboratory Last Values Glucose (Clinic) 248 mg/dL (60-115) H 09/21/24 09:52 Assessment & Plan Assessment & Plan (1) DM2 (diabetes mellitus, type 2): Code(s): E11.9 - Type 2 diabetes mellitus without complications Category: Medical Qualifiers: Diabetes mellitus half-way insulin use: without ad terminal makeup operator use Diabetes mellitus complication status: with neurologic complications Diabetes mellitus complication detail: with polyneuropathy Qualified Code(s): E11.42 - Type 2 diabetes mellitus with diabetic polyneuropathy Plan: 63-year-old female coming in today for follow up of type 2 diabetes mellitus now on basal insulin use with complications of neuropathy. A1c at POC 09/21/2024 7.9% which is down from 8.1% 06/16/2024 which is down from 8.2% on 12/25/2023 up from 7.8% in April 2023 PCP switched from Trulicity to Ozempic in October 2023 and she was titrated on the Ozempic from 0.5 mg weekly to 1 mg weekly January 2024. Increased to 2 mg weekly in June 2024. He is also on Farxiga 10 mg daily. She has been having elevated blood sugars in the 300s about a month ago but she forgot to bring her meter today but per patient mostly that happen after she got her steroid injections. PCP started Lantus 10 units daily. I did communicate to her that it is important to maintain her care with the 1 physician for diabetes so that we know what is going on exactly. At this time I will continue her on the same regimen since Lantus was just started 2 weeks ago. Plan: -continue Ozempic to 2 mg weekly -continue Farxiga 10 mg daily -continue Lantus 10 units daily -we can start her on freestyle Anthony 3+, we will have her see the educator for sensor start -continue to monitor blood sugars daily with fasting and a few 2 hours post meal -last visit I also placed tile grinder referral placed, she does have some dietary indiscretion, counseled regarding eliminating soda and lowering sugar in coffee, we will also have her see tile grinder (2) HTN (hypertension): Code(s): I10 - Essential (primary) hypertension Category: Medical Qualifiers: Hypertension type: essential hypertension Qualified Code(s): I10 - Essential (primary) hypertension Plan: Blood pressure at goal today. It seems like at some point her blood pressure was uncontrolled, she is currently on losartan 100 mg daily, furosemide 20 mg daily carvedilol 25 mg b.i.d.. She was being worked up for resistant hypertension which showed normal renal Doppler. She was noted to have a suppressed renin of 0.95, with a 1 evidence of low potassium of 3.1, otherwise normal potassium levels. Aldosterone was 8. Technically she did not need the cut off for primary hyperaldosteronism however this is a spectrum and with a suppressed renin while someone is on an Carl or Arb such as losartan, as suspicious. We did a baseline 24 hour urine collection as you were evaluating her for hypercalciuria, that collection in February 2025, her aldosterone was low at 1.3 because sodium was not high enough. We will do salt loading testing. Plan: -ordered 24 hour urine aldosterone, sodium, creatinine, BMP -follow up in 8 weeks to discuss results -even if aldosterone is not elevated, given suppressed renin, she might benefit from MRA antagonist such as spironolactone for low renin hypertension She did not do the testing as advised last visit, again reiterated to her importance of doing this test. (3) Hyperparathyroidism: Code(s): E21.3 - Hyperparathyroidism, unspecified Category: Medical Plan: Lab from 12/25/2023 showed elevated PTH level of 141.5. Unclear why this was done. Her calcium levels have always been normal mostly anywhere from 9.2-10.1. Albumin of 4 mostly. Once she had a borderline high calcium of 10.2, however albumin was 3.9 so if we corrected this would be 10. No ionized calcium in the chart. Normal vitamin-D level of 53.3. Normal kidney function from December 2023 with the GFR of greater than 60, creatinine of 0.73. DEXA scan September 2023 showed normal bone density. No history of kidney stones, renal ultrasound from June 2023 without any ev idence of kidney stones. Mother had kidney stones , sister had kidney stones Given normal vitamin-D level, this is not secondary hyperparathyroidism. Kidney function is on so unremarkable. Labs from 02/17/2024 showed normal calcium of 9.2, with normal ionized calcium of 5.1, phosphorus normal at 3, magnesium of 2.2, normal kidney function, PTH of 96.5, 24 hour urine collection showed 24 hour urine calcium of 177 which for her creatinine level low slightly elevated, fractional excretion of calcium is 0.028. I do not think the 24 hour urine calcium level is high enough to cause hyperparathyroidism. Most likely differential would be normocalcemic hyperparathyroidism. Given that her kidney function in with GFR greater than 60, no history of kidney stones with clear renal ultrasound recently, normal bone density scan, and no ronald hypercalciuria, for now we will just continue to monitor. Plan: -repeat calcium,, albumin, phosphorus, PTH, ionized calcium, vitamin-D levels in 6 months sometime around December 2024 Plan I spent 30 minutes in reviewing the record, seeing the patient and documenting in the medical record. Orders: Orders AMB Hemoglobin A1c Today E11.9 - Type 2 diabetes mellitus without complications, Z13.9 - Encounter for screening, unspecified Referrals Diabetes Education Referral E11.65 - Type 2 diabetes mellitus with hyperglycemia, Z79.4 - rat exterminator (current) use of insulin Medications: New insulin glargine (Lantus Solostar U-100 Insulin) 10 units (0.1 mL) subcut QPM 3 mL 3RF pen needle, diabetic (Comfort EZ Pen Zeigler) As directed t inject insulin daily 100 ea 2RF 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 sensor (FreeStyle Anthony 3 Plus Sensor device) As directed every 15 days 6 ea 4RF E11.65 - Type 2 diabetes mellitus with hyperglycemia, Z79.4 - rat exterminator (current) use of insulin Refilled dapagliflozin propanediol (Farxiga) 10 mg PO DAILY 30 tabs 7RF Patient Instructions: continue Farxiga 10 mg daily , Ozempic 2 mg weekly, continue insulin lantus 10 units at bedtime Rule of 15 Treatment for Hypoglycemia (Low blood sugar) If your blood glucose is low (70 and below)*, follow the steps below to treat: Eat or drink something from the list below equal to 15 grams of carbohydrate (carb). Rest for 15 minutes Re-check your blood glucose. If it is still low, (below 70), repeat step 1 above. ? If your next meal is more than an hour away, you will need to eat one carbohydrate choice as a snack to keep your blood glucose from going low again. ?If you can't figure out why you have low blood glucose, call your healthcare provider, as your medicine may need to be adjusted. ?Always carry something with you to treat an insulin reaction. Use food from the list below. ? Foods equal to One Carbohydrate Choice (15 grams of carbohydrate): 3 Glucose ?tablets or 4 Dextrose tablets 4 ounces of fruit juice 5-6 ounces (about 1/2 can) of regular soda such as Coke or Pepsi ? 7-8 gummy or regular Life Savers ? 1 Tbsp. of sugar or jelly NOTE: If your blood sugar is less than 50, double the portion above for a total of 30 gm. ?Carbohydrate. ? Follow meal plan of 45-60 g of consistent carbohydrates at 3 meals each day and 15 g of carbohydrate at 1-2 snacks each day. see Sujata the primary special educator for sensor start Continue to check blood sugars daily, bring meter to next visit your blood work is suggestive of over secretion of aldosterone as we had suspected. I would like you to do confirmatory testing with a 24 hour urine collection and blood work done on the same day as a 24 hour urine collection is handed in. For the 24 hour urine test, you need to do oral sodium loading. Please drink a can of Good soup (with high sodium content) morning and evening for 3 days in addition to your normal food and on the morning of the third day start the 24 hour urine collection and on the 4 th day as you go in to hand in the urine to the lab please also do blood work at the same time. Instruction for 24 hour urine collection 24 hr urine collection instructions You have been asked to collect your urine for 24 hours to assess for aldosterone excretion. You must choose a 24 hour period of time when you will be home. The morning of the first day, DISCARD the FIRST morning void and then note the time. You will collect every single void from then on for 24 hours. For example, if you wake up at 6am and urinate, flush down that void. You will then collect every drop of urine all day and all night through 6am the following day. You will urinate one last time at 6am for the collection. The jug of urine must be kept in the refrigerator until you bring it to the lab. Coding Level of Care Code Est Pt Level 4 (42817) Complex EM visit Add On G2211 Diagnoses Type 2 diabetes mellitus with diabetic polyneuropathy, without long-term current use of insulin E11.42 Diabetes mellitus ad terminal makeup operator insulin use: without half-way use Diabetes mellitus complication status: with neurologic complications Diabetes mellitus complication detail: with polyneuropathy Essential hypertension I10 Hypertension type: essential hypertension Hyperparathyroidism E21.3 Time Spent (min) 30
[2024-09-21 09:55] LABS: Glucose, Whole Blood 248 mg/dL (60-115)
--- OUTSIDE RECORDS SUMMARY | 2024-09-21 10:12 | XMS_ITS | Clinical Summary ---
Author Organization [facility] Address [address] [place] [address] Phone Care Team Providers Care Post Splitter Name Role Phone Berkley iBrd MD Primary Care Provider Allergies Active Allergy [...] AM EDT Office Visit Orthopedic Surgery - [address] [address] Magen Velasco DPM Controlled type 2 diabetes with neuropathy ([facility] V24, [facility] V28) (Primary Dx); Pain in toes of [...] 01/22/2024 Social Influencers of Health Screening 01/22/2024 Depression Screening 03/04/2024 Diabetes: Annual Urine Albumin-Creatinine Ratio (uACR) 04/06/2024 Diabetes: Blood Sugar Control Test (HGBA1C) 06/24/2024 12/25/2023 Influenza Vaccine (#1) 2024 , 12/15/2020, 12/01/2019, Additional history exists Diabetes: Annual GFR (Glomerular Filtration Rate) 06/20/2025 [...] LAB CHEMISTRY METHOD 04/06/2024 6:42 PM EST [facility] Potassium 3.5 3.5 - 5.5 mmol/L LAB CHEMISTRY METHOD 04/06/2024 6:42 PM [facility] Chloride 102 96 - 110 mmol/L LAB CHEMISTRY METHOD 04/06/2024 6:42 PM [facility] CO2 31 21 - 32 mmol/L LAB CHEMISTRY METHOD 04/06/2024 6:42 PM [facility] Anion Gap 5 3 - 11 LAB CHEMISTRY METHOD 04/06/2024 6:42 PM [facility] Glucose 183(H) 70 - 100 mg/dL LAB CHEMISTRY METHOD 04/06/2024 6:42 PM [facility] BUN 17 5 - 25 mg/dL LAB CHEMISTRY METHOD 04/06/2024 6:42 PM [facility] Creatinine 0.94 0.50 - 1.10 mg/dL LAB CHEMISTRY METHOD 04/06/2024 6:42 PM [facility] eGFR 67 >=60 mL/min/1. 73m2 LAB CHEMISTRY METHOD 04/06/2024 6:42 PM [facility] Comment:Calculation based on the Chronic Kidney Disease Epidemiology Collaboration (CKD-EPI) equation refit without adjustment for race. BUN/Creatinine Ratio 18.1 LAB CHEMISTRY METHOD 04/06/2024 6:42 PM [facility] Calcium 10.3 8.5 - 10.5 mg/dL LAB CHEMISTRY METHOD 04/06/2024 6:42 PM [facility] AST (SGOT) 15 10 - 42 unit/L LAB CHEMISTRY METHOD 04/06/2024 6:42 PM [facility] ALT (SGPT) 22 10 - 60 unit/L LAB CHEMISTRY METHOD 04/06/2024 6:42 PM [facility] Alkaline Phosphatase 140(H) 42 - 121 unit/L LAB CHEMISTRY METHOD 04/06/2024 6:42 PM [facility] Total Protein 7.6 6.0 - 8.0 g/dL LAB CHEMISTRY METHOD 04/06/2024 6:42 PM [facility] Albumin 3.6 3.2 - 5.0 g/dL LAB CHEMISTRY METHOD 04/06/2024 6:42 PM EST [facility] Total Bilirubin 0.3 0.0 - 1.4 mg/dL LAB CHEMISTRY METHOD 04/06/2024 6:42 PM EST [facility] Blood Venous blood specimen / Unknown Venipuncture / Unknown 04/06/2024 2:00 PM EST 04/06/2024 2:00 PM EST us Magen Velasco DPM LAB BLOOD ORDERABLES Final Result [facility] ([facility] [address] [place] [address], from Last 3 Months or Most Recently Relevant to Health [place] [id number] [facility] MEDICARE Member Subscriber Plan / Payer (Ef fective 2023-Present) Name:Jennifer Payton Relation to Subscriber:Self Name:Jennifer Palmer Payer ID:[id number] Group ID:[id number] Type:Not on file Address: [place] [address] [address] [place] [address] Care Teams Post Splitter Relationship Specialty Start Date End Date Berkley Bird MD [address] [address] PCP - General Internal Medicine 02/20/24
--- OUTSIDE RECORDS SUMMARY | 2024-09-21 10:12 | XMS_ITS | Clinical Summary ---
Author Organization [facility] Address [address] [facility] [address] [facility] [address] [place] [address] Phone Care Team Providers Care Ways Operator Name Role Phone Mark Foote MD Primary Care Provider Social History Tobacco Use Types Packs/Day Years Used Date Smoking Tobacco: Never Assessed Education Answer Date Recorded Are you interested in more education? Not on liam e 06/29/2022 Are you concerned about learning? Not on file 06/29/2022 No 06/29/2022 No 06/29/2022 Digital Access Answer Date Recorded No 07/28/2022 No 07/28/2022 No 07/28/2022 Reliable internet access at home? Not on file 07/28/2022 Device with a working camera? Not on file Comments Unknown Sex and Gender Information Value Date Recorded Sex Assigned at Not on file Legal Sex Female 10:03 AM EDT Gender Identity Not on file Sexual Orientation Not on file Plan of Treatment Health Maintenance Due Date Last Done Comments LIPID PANEL 1958 DEPRESSION SCREENING 1970 SMOKING Hx and SMOKELESS TOBACCO SCREENING 08/22/1971 HEPATITIS C SCREENING 1976 MAMMOGRAM 1998 COLOGUARD 08/22/2003 COLONOSCOPY 08/22/2003 COLORECTAL CANCER SCREENING 08/22/2003 FIT TEST 08/22/2003 FOBT 08/22/2003 SIGMOIDOSCOPY 08/22/2003 VIRTUAL COLONOSCOPY 08/22/2003 ZOSTER VACCINES (1 of 2) 2008 PNEUMOCOCCAL VACCINES (50+ years) (3 of 3 - PCV20 or PCV21) 12/18/2022 12/18/2017, 03/11/2006 OSTEOPOROSIS SCREENING INITI AL (ONE-TIME) 08/22/2023 COVID-19 VACCINE (3 - 2023-2 5 season) 2023 07/27/2020, 06/29/2020 Adult Td,Tdap Booster 11/16/2026 11/16/2016 , 10/17/2011, 03/11/2006 RSV VACCINE (1 - 1-dose 75+ series) 2033 HEPATITIS A VACCINES Aged Out No long er eligible based on patient's age to complete this topic HIB VACCINES Aged Out No longer eligi ble based on patient's age to complete this topic MENINGOCOCCAL VACCINES (ACWY) Aged Out No longer eligible based on patient's age to complete this topic MENINGOCOCCAL VACCINES (B) Aged Out N o longer eligible based on patient's age to complete this topic Medical Devices Not on file Insurance C3 ACO C3 ACO C3 ACO C3 ACO C3 ACO Care Teams Ways Operator Relationship Specialty Start Date End Date Mark Foote MD [address] [place] [id number] PCP - General Pediatrics 10/15/19 Additional Source Comments The information contained in this document represents components of the legal health record. It is not the complete legal health record.[facility]
--- OUTSIDE RECORDS SUMMARY | 2024-09-21 10:12 | XMS_ITS | Encounter Summary ---
Author Organization [employer] Address [address] [facility] [address] [place] [address] Care Team Providers Care Car Retarder Operator Name Role Phone Emy Askew MD Primary Care Pro vider Encounter Details Date Type Department Care Team ([facility] st Contact Info) Description 08/07/2023 Orders Only [facility] [address] [place] [address] Valeria Armas FNP [address] [place] [address] Social History Tobacco Use Types Packs/Day Years [...] as of this encounter Plan of Treatment Not on file documented as of this encounter Visit Diagnoses Not on filedocumented in this encounter Additional Health Concerns Assessment Noted Time PHQ-9 Depression Total Score: 16 023 10:16 AM EDT documented as of this encounter Care Teams Car Retarder Operator Relationship Specialty Start Date End Date Emy Askew MD [address] [place] [id number] PCP - General Internal Medicine 07/25/22 documented as of this encounter
--- OUTSIDE RECORDS SUMMARY | 2024-09-21 10:12 | XMS_ITS | Data Portability ---
Author Organization [place] - [facility], Allergy Address [address] [place] [phone] Assessment No assessment recorded. Plan of Treatment Reminders Order Date Submit Date Provider Last Modified By Organization Details Last Modified Time Details Appointments None recorded. Lab None recorded. Referral None recorded. Procedures None recorded. Surgeries None recorded. Imaging [place], modified barium swallow study [address] [place] [address] Diagnosit Imaging Dept, [address] [place] [address], [address], 5 11:51:40 Medication Orders None recorded. Patient TargetsNo targets recorded. Patient InstructionsNo instructions recorded. Reason for Referral None Reported. Problems Name Problem SNOMED Code Status Onset Date Resolution Date Notes Provider Name and Address Organization Details Recorded Time Hypertrop hy of salivary gland 14832424 Active 2013 Diseases of the salivary glands: Hypertroph y; CMS Risk: moderate risk CMS Treatment: establishe d problem (to examiner): stable or improved N ote: Date Diagnosed: 12/30/2013 2:35 PM (527.1) Not Available [facility] 4 02:27:37 Chronic sialadeni tis 018058558 Active 2016 Chronic sialoadeni tis; Note: Date Diagnosed: 07/04/2016 2:17 PM (K11.23) Not Available [facility] 4 02:27:48 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]; Note: Date Diagnosed: 07/04/2016 2:17 PM (M35.0) Not Available [facility] 4 02:27:47 Dysphonia 87397157 Active 2017 Hoarseness ; Note: Date Diagnosed: 02/17/2018 9:52 AM (R49.0) Not Available [facility] 4 02:27:44 Dysphagia 72558177 Active 2018 Other dysphagia; Note: Date Diagnosed: 05/13/2018 9:47 AM (R13.19) Not Available [facility] 4 02:27:43 Disturban ce of salivary secretion 72630914 Active 2018 Xerostomia ; Note: Date Diagnosed: 05/13/2018 9:47 AM (K11.7) Not Available [facility] 4 02:27:54 Bilateral hearing loss 88007267 Active 2018 Other specified hearing loss, bilateral; Note: Date Diagnosed: 08/12/2018 10:01 AM (H91.8X3) Not Available [facility] 4 02:27:41 Oropharyn geal dysphagia 72041251 Active 2024 UMESH DIAZ MD [address] [place] [address], [place], [address] , [facility] 5 13:35:47 Problem Notes None recorded. Procedures Surgical History Date Name Laterality Status Provider Name and Address Organization Details Recorded Time 03/13/2024 FFL_RE completed UMESH DIAZ MD [address] [place] [address], [phone], [facility] 03/13/2024 13:36:13 Imaging Results None recorded. Procedure Notes None recorded. Medical Equipment None Reported. Allergies Allergen ID Allergen Name Allergen Category Reaction Reaction Severity Criticality Documentation Date Start Date Code Code System Note Provider Name and Address Organization Details Recorded Time 19605 Bactrim medicatio n other Not available Not available 07/16/2023 44246 9 RxNorm React ion: unkno wn, unspe cifie d;; Not Available [facility] 4 00:55:51 73927 codeine sulfate medicatio n other Not available Not available 07/16/2023 94905 RxNorm React ion: unkno wn, unspe cifie d;; Not Available [facility] 4 00:55:56 Medications Name Sig Start Date Stop Date Status Note LastModified by Organization Details LastModified Time medbox status USE DIRECTED active Not Available Not Available No t Available furosemid e 40 mg tablet TAKE 1 TABLET BY MOUTH EVERY MORNING active Not Available Not Available No t Available Augmentin 875 mg-125 mg tablet 2017 active Medicati on ID: 325491 D uration Value: 5 Prescri bed By [...] nebulizat ion 2018 active Medicati on ID: 157936 D uration Value: 5 Brand Name: albutero [...] mg tablet 2018 active Medicati on ID: 457312 D uration Value: 30 Brand Name: lisinopr [...] mg tablet 2018 active Medicati on ID: 736309 D uration Value: 30 Brand Name: buspiron e Send Method: E-Prescr ibed Sub s Allowed: subs OK Speci al Instruct ion: TAKE 1 TABLET BY MOUTH THREE TIMES DAILY NEEDED ANXIETY Medicati onGeneri cName: buspiron e Not Available Not Available Not Available Tiazac 120 mg capsule,e xtended release 02/04 completed Medicati on ID: 14903 Re ason: () Brand Name: Tiazac S [...] elayed release 2018 active Medicati on ID: 698313 D uration Value: 30 Brand Name: omeprazo le Send Method: E-Prescr ibed Sub s Allowed: subs OK Speci al Instruct ion: TAKE 1 CAPSULE TWICE DAILY IN THE MORNING AND IN THE EVENING 1 HORA AN KALEN DE LAS COMIDAS Medicati onGeneri cName: omeprazo le Not Available Not Available Not Available Aspirin Childrens 81 mg chewable tablet 2013 active Medicati on ID: 19423 Br and Name: Aspirin Children s Send [...] mg tablet 2018 active Medicati on ID: 001671 D uration Value: 30 Brand Name: lveon post ne Send Method: E-Prescr ibed Sub s Allowed: subs OK Speci al Instruct ion: TAKE 2 TABLETS BY MOUTH ONCE DAILY IN THE MORNING Medicati onGeneri cName: levon jenkinsqui ne Not Available Not Available Not Available ibuprofen 600 mg tablet 2018 active Medicati on ID: 201299 D uration Value: 30 Brand Name: ibuprofe [...] 24 hr 2018 active Medicati on ID: 480593 D uration Value: 30 Brand Name: metformi n Send Method: E-Prescr ibed Sub s Allowed: subs OK Speci al Instruct ion: TAKE 1 TABLET BY MOUTH TWICE DAILY IN THE MORNING AND IN THE EVENING W ITH FOOD Med icationG enericNa me: metformi n Not Available Not Available Not Available Ambien 5 mg tablet 2013 active Medicati on ID: 87896 Br and Name: Ambien S end Method: [...] mg capsule 2013 active Medicati on ID: 34422 Br and Name: Kade Rivera end Method: [...] inhalatio n 2018 active Medicati on ID: 525395 D uration Value: 30 Brand Name: Breo [...] subcutane ous 2018 active Medicati on ID: 208640 D uration Value: 35 Brand Name: Humulin [...] Updated DateTime 03/13/2024 157.48 cm 26 kg/m2 47260.12 g Shantell Wise [place] [facility] 03/13/2024 13:27:58 Social History None recorded. Functional Status None recorded. Mental Status None recorded. Family History Nothing Reported. Medical History No medical history recorded. Gynecological HistoryNo gynecological history recorded. Obstetrics History GPAL:G 0 P 0 0 0 0 Past Encounters Encounter ID Performer Location Encounter Start Date Encounter Closed Date Diagnosis/Indication Diagnosis SNOMED-CT Code Diagnosis ICD10 Code Diagnosis Note [id number] UMESH DIAZ MD [facility] [address] [place] [address] 03/13/2024 13:18:07 03/13/2024 13:52:50 Oropharyngeal dysphagia 30075056 R13.12 Exam and laryngosco py were normal. I recommend a swallow study (MBS) to reassess her swallow. F/u after. If normal I would suggest GI referral especially given her Sjogrens. Sj gren's syndrome 70666705 M35.00 Encouraged hydration. Will consider GI referral [...] Member ID Guarantor Name 03/13/2024 1 [facility] - DOS ON OR AFTER 2022 - MEDICARE ADVANTAGE [place] & [place] (MEDICARE REPLACEMENT/AD VANTAGE - PPO) Jennifer Gu [id number] Jennifer Gu Notes Date Note Type Note [...] eyes and dry mouth. UMESH DIAZ MD [address] [place] [address], [phone], [facility] - [facility] 03/13/2024 13:43:36 OBGyn Episode No OBEpisode recorded.
== END 2024-09-21 10:37 | disposition home or self-care (01) ==
LOC: HO.ENCR 09:37
PROVIDERS: Visit Provider Student in an Organized Health Care Education/Training Program
DX: E11.42 Type 2 diabetes mellitus with diabetic polyneuropathy (principal); I10 Essential (primary) hypertension; E21.3 Hyperparathyroidism, unspecified; Z13.9 Encounter for screening, unspecified
CPT/HCPCS: 99214; G2211

== ENCOUNTER → 2024-09-21 09:36 | Outpatient (BNVA) | payer OTHER, SELFPAY | PROVIDERS: Visit Provider Student in an Organized Health Care Education/Training Program | DX: E11.42 Type 2 diabetes mellitus with diabetic polyneuropathy (principal); I10 Essential (primary) hypertension; E21.3 Hyperparathyroidism, unspecified; Z79.4 Long term (current) use of insulin | CPT/HCPCS: 82947; 83036; 99212 ==

== ENCOUNTER → 2024-09-23 08:28 | Outpatient (BNV) | payer OTHER, SELFPAY | PROVIDERS: PCP Student in an Organized Health Care Education/Training Program; Visit Provider Radiology Diagnostic Radiology | DX: N20.0 Calculus of kidney (principal) | CPT/HCPCS: 74183 ==

== ENCOUNTER 2024-09-23 09:04 | Outpatient (REF) | payer OTHER, SELFPAY ==
--- NOTE | ~2024-09-23 | MR_ITS ---
CLINICAL HISTORY: rec MRI renal protocol to further evaluate for renal lesions MR abdomen with and without gadolinium Comparison: CT/SR - CT ABDOMEN PELVIS W IV CON - 08/18/24 13:37 EDT Findings: Bilateral simple renal cysts. No hydronephrosis. Cholelithiasis without acute inflammatory findings. Liver, pancreas, spleen, and adrenal glands are within normal limits. Visualized bowel is normal caliber. No ascites. IMPRESSION: Bilateral simple renal cysts. No acute findings. This document has been electronically signed by: Kapil Dent MD on 09/24/2024 02:04:21
--- OUTSIDE RECORDS SUMMARY | 2024-09-23 09:39 | XMS_ITS | Clinical Summary ---
Author Organization [facility] Address [address] [facility] [facility] [address] [place] [address] Phone Care Team Providers Care Training And Development Professional Name Role Phone Mark Foote MD Primary [...] ACO C3 ACO C3 ACO Care Teams Training And Development Professional Relationship Specialty Start Date End Date Mark Foote MD [address] [place] [id number] PCP - General Pediatrics 10/15/19 Additional Source Comments The information contained in this document represents components of the legal health record. It is not the complete legal health record.[facility]
--- OUTSIDE RECORDS SUMMARY | 2024-09-23 09:39 | XMS_ITS | Data Portability ---
Author Organization [place] - [facility], Allergy Address [address] [place] [phone] Assessment No assessment recorded. Plan of Treatment Reminders Order Date Submit Date Provider Last Modified By Organization Details Last Modified Time Details Appointments None recorded. Lab None recorded. Referral None recorded. Procedures None recorded. Surgeries None recorded. Imaging [place], modified barium swallow study [address] [place] [address] Diagnosit Imaging Dept, [address] [place] [address], [address], 5 11:51:40 Medication Orders None recorded. Patient TargetsNo targets recorded. Patient InstructionsNo instructions recorded. Reason for Referral None Reported. Problems Name Problem SNOMED Code Status Onset Date Resolution Date Notes Provider Name and Address Organization Details Recorded Time Hypertrop hy of salivary gland 81951955 Active 2013 Diseases of the salivary glands: Hypertroph y; CMS Risk: moderate risk CMS Treatment: establishe d problem (to examiner): stable or improved N ote: Date Diagnosed: 12/30/2013 2:35 PM (527.1) Not Available [facility] 4 02:27:37 Chronic sialadeni tis 780156485 Active 2016 Chronic sialoadeni tis; Note: Date Diagnosed: 07/04/2016 2:17 PM (K11.23) Not Available [facility] 4 02:27:48 Sj gren's syndrome 71320241 Active 2016 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]; Note: Date Diagnosed: 07/04/2016 2:17 PM (M35.0) Not Available [facility] 4 02:27:47 Dysphonia 60074827 Active 2017 Hoarseness ; Note: Date Diagnosed: 02/17/2018 9:52 AM (R49.0) Not Available Counts include 234 beds at the [facility] 4 02:27:44 Dysphagia 77988327 Active 2018 Other dysphagia; Note: Date Diagnosed: 05/13/2018 9:47 AM (R13.19) Not Available Counts include 234 beds at the [facility] 4 02:27:43 Disturban ce of salivary secretion 68199431 Active 2018 Xerostomia ; Note: Date Diagnosed: 05/13/2018 9:47 AM (K11.7) Not Available Counts include 234 beds at the [facility] 4 02:27:54 Bilateral hearing loss 85123122 Active 2018 Other specified hearing loss, bilateral; Note: Date Diagnosed: 08/12/2018 10:01 AM (H91.8X3) Not Available Counts include 234 beds at the [facility] 4 02:27:41 Oropharyn geal dysphagia 50503868 Active 2024 UMESH DIAZ MD [address] [place] [address], [place], [phone] , [facility] 5 13:35:47 Problem Notes None recorded. Procedures Surgical History Date Name Laterality Status Provider Name and Address Organization Details Recorded Time 03/13/2024 FFL_RE completed UMESH DIAZ MD [address] [place] [address], [phone], [facility] 03/13/2024 13:36:13 Imaging Results None recorded. Procedure Notes None recorded. Medical Equipment None Reported. Allergies Allergen ID Allergen Name Allergen Category Reaction Reaction Severity Criticality Documentation Date Start Date Code Code System Note Provider Name and Address Organization Details Recorded Time 83961 Bactrim medicatio n other Not available Not available 07/16/2023 78429 9 RxNorm React ion: unkno wn, unspe cifie d;; Not Available Counts include 234 beds at the [facility] 4 00:55:51 69493 codeine sulfate medicatio n other Not available Not available 07/16/2023 67377 RxNorm React ion: unkno wn, unspe cifie d;; Not Available Counts include 234 beds at the [facility] 4 00:55:56 Medications Name Sig Start Date Stop Date Status Note LastModified by Organization Details LastModified Time medbox status USE DIRECTED active Not Available Not Available No t Available furosemid e 40 mg tablet TAKE 1 TABLET BY MOUTH EVERY MORNING active Not Available Not Available No t Available Augmentin 875 mg-125 mg tablet 2017 active Medicati on ID: 131800 D uration Value: 5 Prescri bed By [...] nebulizat ion 2018 active Medicati on ID: 870583 D uration Value: 5 Brand Name: albutero [...] mg tablet 2018 active Medicati on ID: 958665 D uration Value: 30 Brand Name: lisinopr [...] mg tablet 2018 active Medicati on ID: 245700 D uration Value: 30 Brand Name: buspiron e Send Method: E-Prescr ibed Sub s Allowed: subs OK Speci al Instruct ion: TAKE 1 TABLET BY MOUTH THREE TIMES DAILY NEEDED ANXIETY Medicati onGeneri cName: buspiron e Not Available Not Available Not Available Tiazac 120 mg capsule,e xtended release 02/04 completed Medicati on ID: 51237 Re ason: () Brand Name: Tiazac S [...] elayed release 2018 active Medicati on ID: 609595 D uration Value: 30 Brand Name: omeprazo le Send Method: E-Prescr ibed Sub s Allowed: subs OK Speci al Instruct ion: TAKE 1 CAPSULE TWICE DAILY IN THE MORNING AND IN THE EVENING 1 HORA AN KALEN DE LAS COMIDAS Medicati onGeneri cName: omeprazo le Not Available Not Available Not Available Aspirin Childrens 81 mg chewable tablet 2013 active Medicati on ID: 48644 Br and Name: Aspirin Children s Send [...] mg tablet 2018 active Medicati on ID: 861219 D uration Value: 30 Brand Name: levon post ne Send Method: E-Prescr ibed Sub s Allowed: subs OK Speci al Instruct ion: TAKE 2 TABLETS BY MOUTH ONCE DAILY IN THE MORNING Medicati onGeneri cName: levon jenkinsqui ne Not Available Not Available Not Available ibuprofen 600 mg tablet 2018 active Medicati on ID: 045122 D uration Value: 30 Brand Name: ibuprofe [...] 24 hr 2018 active Medicati on ID: 184122 D uration Value: 30 Brand Name: metformi n Send Method: E-Prescr ibed Sub s Allowed: subs OK Speci al Instruct ion: TAKE 1 TABLET BY MOUTH TWICE DAILY IN THE MORNING AND IN THE EVENING W ITH FOOD Med icationG enericNa me: metformi n Not Available Not Available Not Available Ambien 5 mg tablet 2013 active Medicati on ID: 85678 Br and Name: Ambien S end Method: [...] mg capsule 2013 active Medicati on ID: 23358 Br and Name: Kade Rivera end Method: [...] inhalatio n 2018 active Medicati on ID: 836319 D uration Value: 30 Brand Name: Breo [...] subcutane ous 2018 active Medicati on ID: 115931 D uration Value: 35 Brand Name: Humulin [...] Updated DateTime 03/13/2024 157.48 cm 26 kg/m2 27395.12 g Shantell Wise [place] [facility] 03/13/2024 13:27:58 Social History None recorded. Functional Status None recorded. Mental Status None recorded. Family History Nothing Reported. Medical History No medical history recorded. Gynecological HistoryNo gynecological history recorded. Obstetrics History GPAL:G 0 P 0 0 0 0 Past Encounters Encounter ID Performer Location Encounter Start Date Encounter Closed Date Diagnosis/Indication Diagnosis SNOMED-CT Code Diagnosis ICD10 Code Diagnosis Note [id number] UMESH DIAZ MD [facility] of [facility] - [facility] [address] [place] [address] 03/13/2024 13:18:07 03/13/2024 13:52:50 Oropharyngeal dysphagia 39224669 R13.12 Exam and laryngosco py were normal. I recommend a swallow study (MBS) to reassess her swallow. F/u after. If normal I would suggest GI referral especially given her Sjogrens. Sj gren's syndrome 26118555 M35.00 Encouraged hydration. Will consider GI referral [...] Mendez Member ID Guarantor Name 03/13/2024 1 [facility] - DOS ON OR AFTER 2022 - MEDICARE ADVANTAGE [place] & [place] (MEDICARE REPLACEMENT/AD VANTAGE - PPO) Jennifer Gu [id number] Jennifer Gu Notes Date Note Type Note [...] eyes and dry mouth. UMESH DIAZ MD [address] [place] [address], [phone], [facility] - [facility] 03/13/2024 13:43:36 OBGyn Episode No OBEpisode recorded.
--- OUTSIDE RECORDS SUMMARY | 2024-09-23 09:39 | XMS_ITS | Clinical Summary ---
Author Organization 175 [facility] Address [address] [place] [address] Phone Care Team Providers Care Internal Consultant Name Role Phone Berkley Bird MD Primary [...] AM EDT Office Visit Orthopedic Surgery - [address] [address] Magen Velasco DPM Controlled type 2 diabetes with neuropathy ([facility] V24, [facility] V28) (Primary Dx); Pain in toes of [...] LAB CHEMISTRY METHOD 04/06/2024 6:42 PM EST [facility] Potassium 3.5 3.5 - 5.5 [...] LAB CHEMISTRY METHOD 04/06/2024 6:42 PM EST [facility] Total Bilirubin 0.3 0.0 - 1.4 mg/dL LAB CHEMISTRY METHOD 04/06/2024 6:42 PM EST [facility] Blood Venous blood specimen / Unknown Venipuncture / Unknown 04/06/2024 2:00 PM EST 04/06/2024 2:00 PM EST us Magen Velasco DPM LAB BLOOD ORDERABLES Final Result [facility] [address] [place] [address], from Last 3 Months or Most Recently Relevant to Health [place] [address] [facility]LY [facility] MEDICARE Member Subscriber Plan / Payer (Ef fective 2023-Present) Name:Jennifer Payton Relation to Subscriber:Self Name:Jennifer Palmer Payer ID:[id number] Group ID:[id number] Type:Not on file Address: [place] [address] [place] [address] Care Teams Internal Consultant Relationship Specialty Start Date End Date Berkley Bird MD [address] [address] PCP - General Internal Medicine 02/20/24
== END 2024-09-23 09:05 | disposition home or self-care (01) ==
LOC: HO.MRI 09:04
PROVIDERS: PCP Student in an Organized Health Care Education/Training Program; Visit Provider Student in an Organized Health Care Education/Training Program
DX: N28.1 Cyst of kidney, acquired (principal)
CPT/HCPCS: 74183; A9585

== ENCOUNTER 2024-09-25 09:45 | Outpatient (REF) | payer OTHER, SELFPAY ==
--- OUTSIDE RECORDS SUMMARY | 2024-09-25 08:50 | XMS_ITS | Clinical Summary ---
Author Organization 175 [facility] Address [address] [place] [address] Phone Care Team Providers Care Television Journalist Name Role Phone Berkley Bird MD Primary [...] AM EDT Office Visit Orthopedic Surgery - [address] [address] Magen Velasco DPM Controlled type 2 diabetes with neuropathy ([facility] V24, [facility] V28) (Primary Dx); Pain in toes of [...] LAB CHEMISTRY METHOD 04/06/2024 6:42 PM EST [facility] Potassium 3.5 3.5 - 5.5 mmol/L LAB CHEMISTRY METHOD 04/06/2024 6:42 PM [facility] Chloride 102 96 - 110 mmol/L LAB CHEMISTRY METHOD 04/06/2024 6:42 PM [facility] CO2 31 21 - 32 mmol/L LAB CHEMISTRY METHOD 04/06/2024 6:42 PM [facility] Anion Gap 5 3 - 11 LAB CHEMISTRY METHOD 04/06/2024 6:42 PM [facility] Glucose 183(H) 70 - 100 mg/dL LAB CHEMISTRY METHOD 04/06/2024 6:42 PM [facility] BUN 17 5 - 25 mg/dL LAB CHEMISTRY METHOD 04/06/2024 6:42 PM [facility] Creatinine 0.94 0.50 - 1.10 mg/dL LAB CHEMISTRY METHOD 04/06/2024 6:42 PM [facility] eGFR 67 >=60 mL/min/1. 73m2 LAB CHEMISTRY METHOD 04/06/2024 6:42 PM [facility] Comment:Calculation based on the Chronic Kidney Disease Epidemiology Collaboration (CKD-EPI) equation refit without adjustment for race. BUN/Creatinine Ratio 18.1 LAB CHEMISTRY METHOD 04/06/2024 6:42 PM [facility] Calcium 10.3 8.5 - 10.5 mg/dL LAB CHEMISTRY METHOD 04/06/2024 6:42 PM [facility] AST (SGOT) 15 10 - 42 unit/L LAB CHEMISTRY METHOD 04/06/2024 6:42 PM [facility] ALT (SGPT) 22 10 - 60 unit/L LAB CHEMISTRY METHOD 04/06/2024 6:42 PM [facility] Alkaline Phosphatase 140(H) 42 - 121 unit/L LAB CHEMISTRY METHOD 04/06/2024 6:42 PM [facility] Total Protein 7.6 6.0 - 8.0 g/dL LAB CHEMISTRY METHOD 04/06/2024 6:42 PM [facility] Albumin 3.6 3.2 - 5.0 g/dL LAB CHEMISTRY METHOD 04/06/2024 6:42 PM EST [facility] Total Bilirubin 0.3 0.0 - 1.4 mg/dL LAB CHEMISTRY METHOD 04/06/2024 6:42 PM EST [facility] Blood Venous blood specimen / Unknown Venipuncture / Unknown 04/06/2024 2:00 PM EST 04/06/2024 2:00 PM EST us Magen Velasco DPM LAB BLOOD ORDERABLES Final Result [facility] [address] [place] [address], from Last 3 Months or Most Recently Relevant to [place] [address] [facility] MEDICARE Member Subscriber Plan / Payer (Ef fective 2023-Present) Name:Jennifer Payton Relation to Subscriber:Self Name:Jennifer Palmer Payer ID:[id number] Group ID:[id number] Type:Not on file Address: [place] [address] [place] [address] Care Teams Television Journalist Relationship Specialty Start Date End Date Berkley Bird MD [address] [address] PCP - General Internal Medicine 02/20/24
--- OUTSIDE RECORDS SUMMARY | 2024-09-25 08:50 | XMS_ITS | Encounter Summary ---
Author Organization [employer] Address [address] [facility] [address] [place] [address] Care Team Providers Care Commercial Energy Auditor Name Role Phone Emy Askew MD Primary Care Pro vider Encounter Details Date Type Department Care Team ([facility] st Contact Info) Description 08/07/2023 Orders Only [facility] [address] [place] [address] Valeria Armas FNP [address] [place] [address] Social History Tobacco Use Types Packs/Day Years [...] documented as of this encounter Care Teams Commercial Energy Auditor Relationship Specialty Start Date End Date Emy Askew MD [address] [place] [address] PCP - General Internal Medicine 07/25/22 documented as of this encounter
--- OUTSIDE RECORDS SUMMARY | 2024-09-25 08:50 | XMS_ITS | Clinical Summary ---
Author Organization [facility] Address [address] [facility] [address] [place] [address] Phone Care Team Providers Care Rigging Slinger Name Role Phone Mark Foote MD Primary [...] ACO C3 ACO C3 ACO Care Teams Rigging Slinger Relationship Specialty Start Date End Date Mark Foote MD [address] [place] [address] PCP - General Pediatrics 10/15/19 Additional Source Comments The information contained in this document represents components of the legal health record. It is not the complete legal health record.[facility]
--- OUTSIDE RECORDS SUMMARY | 2024-09-25 08:50 | XMS_ITS | Data Portability ---
Author Organization [place] [facility] Address [address] [place] [phone] Assessment No assessment recorded. Plan of Treatment Reminders Order Date Submit Date Provider Last Modified By Organization Details Last Modified Time Details Appointments None recorded. Lab None recorded. Referral None recorded. Procedures None recorded. Surgeries None recorded. Imaging [place], modified barium swallow study [address] [place] [address] Diagnosit Imaging Dept, [address] [place] [address], [address], 5 11:51:40 Medication Orders None recorded. Patient TargetsNo targets recorded. Patient InstructionsNo instructions recorded. Reason for Referral None Reported. 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 Active 2013 Diseases of the salivary glands: Hypertroph y; CMS Risk: moderate risk CMS Treatment: establishe d problem (to examiner): stable or improved N ote: Date Diagnosed: 12/30/2013 2:35 PM (527.1) Not Available [facility] 4 02:27:37 Chronic sialadeni tis 449892762 Active 2016 Chronic sialoadeni tis; Note: Date Diagnosed: 07/04/2016 2:17 PM (K11.23) Not Available [facility] 4 02:27:48 Sj gren's syndrome 21886892 Active 2016 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]; Note: Date Diagnosed: 07/04/2016 2:17 PM (M35.0) Not Available [facility] 4 02:27:47 Dysphonia 19951716 Active 2017 Hoarseness ; Note: Date Diagnosed: 02/17/2018 9:52 AM (R49.0) Not Available [facility] 4 02:27:44 Dysphagia 35264862 Active 2018 Other dysphagia; Note: Date Diagnosed: 05/13/2018 9:47 AM (R13.19) Not Available [facility] 4 02:27:43 Disturban ce of salivary secretion 54544937 Active 2018 Xerostomia ; Note: Date Diagnosed: 05/13/2018 9:47 AM (K11.7) Not Available [facility] 4 02:27:54 Bilateral hearing loss 25895965 Active 2018 Other specified hearing loss, bilateral; Note: Date Diagnosed: 08/12/2018 10:01 AM (H91.8X3) Not Available [facility] 4 02:27:41 Oropharyn geal dysphagia 94817901 Active 2024 UMESH DIAZ MD [address] [place] [address], [place], [address] , [facility] 5 13:35:47 Problem Notes None recorded. Procedures Surgical History Date Name Laterality Status Provider Name and Address Organization Details Recorded Time 03/13/2024 FFL_RE completed UMESH DIAZ MD [address] [place] [address], [phone], [facility] 03/13/2024 13:36:13 Imaging Results None recorded. Procedure Notes None recorded. Medical Equipment None Reported. Allergies Allergen ID Allergen Name Allergen Category Reaction Reaction Severity Criticality Documentation Date Start Date Code Code System Note Provider Name and Address Organization Details Recorded Time 64885 Bactrim medicatio n other Not available Not available 07/16/2023 76623 9 RxNorm React ion: unkno wn, unspe cifie d;; Not Available [facility] 4 00:55:51 00166 codeine sulfate medicatio n other Not available Not available 07/16/2023 84462 RxNorm React ion: unkno wn, unspe cifie d;; Not Available [facility] 4 00:55:56 Medications Name Sig Start Date Stop Date Status Note LastModified by Organization Details LastModified Time medbox status USE DIRECTED active Not Available Not Available No t Available furosemid e 40 mg tablet TAKE 1 TABLET BY MOUTH EVERY MORNING active Not Available Not Available No t Available Augmentin 875 mg-125 mg tablet 2017 active Medicati on ID: 455386 D uration Value: 5 Prescri bed By [...] nebulizat ion 2018 active Medicati on ID: 291208 D uration Value: 5 Brand Name: albutero [...] mg tablet 2018 active Medicati on ID: 307448 D uration Value: 30 Brand Name: lisinopr [...] mg tablet 2018 active Medicati on ID: 763168 D uration Value: 30 Brand Name: buspiron e Send Method: E-Prescr ibed Sub s Allowed: subs OK Speci al Instruct ion: TAKE 1 TABLET BY MOUTH THREE TIMES DAILY NEEDED ANXIETY Medicati onGeneri cName: buspiron e Not Available Not Available Not Available Tiazac 120 mg capsule,e xtended release 02/04 completed Medicati on ID: 45456 Re ason: () Brand Name: Tiazac S [...] elayed release 2018 active Medicati on ID: 245069 D uration Value: 30 Brand Name: omeprazo le Send Method: E-Prescr ibed Sub s Allowed: subs OK Speci al Instruct ion: TAKE 1 CAPSULE TWICE DAILY IN THE MORNING AND IN THE EVENING 1 HORA AN KALEN DE LAS COMIDAS Medicati onGeneri cName: omeprazo le Not Available Not Available Not Available Aspirin Childrens 81 mg chewable tablet 2013 active Medicati on ID: 73843 Br and Name: Aspirin Children s Send [...] mg tablet 2018 active Medicati on ID: 342463 D uration Value: 30 Brand Name: levon post ne Send Method: E-Prescr ibed Sub s Allowed: subs OK Speci al Instruct ion: TAKE 2 TABLETS BY MOUTH ONCE DAILY IN THE MORNING Medicati onGeneri cName: levon jenkinsqui ne Not Available Not Available Not Available ibuprofen 600 mg tablet 2018 active Medicati on ID: 487103 D uration Value: 30 Brand Name: ibuprofe [...] 24 hr 2018 active Medicati on ID: 977240 D uration Value: 30 Brand Name: metformi n Send Method: E-Prescr ibed Sub s Allowed: subs OK Speci al Instruct ion: TAKE 1 TABLET BY MOUTH TWICE DAILY IN THE MORNING AND IN THE EVENING W ITH FOOD Med icationG enericNa me: metformi n Not Available Not Available Not Available Ambien 5 mg tablet 2013 active Medicati on ID: 46483 Br and Name: Ambien S end Method: [...] mg capsule 2013 active Medicati on ID: 62310 Br and Name: Kade Rivera end Method: [...] inhalatio n 2018 active Medicati on ID: 732258 D uration Value: 30 Brand Name: Breo [...] subcutane ous 2018 active Medicati on ID: 955371 D uration Value: 35 Brand Name: Humulin [...] Updated DateTime 03/13/2024 157.48 cm 26 kg/m2 65714.12 g Shantell Wise [place] [facility] 03/13/2024 13:27:58 Social History None recorded. Functional Status None recorded. Mental Status None recorded. Family History Nothing Reported. Medical History No medical history recorded. Gynecological HistoryNo gynecological history recorded. Obstetrics History GPAL:G 0 P 0 0 0 0 Past Encounters Encounter ID Performer Location Encounter Start Date Encounter Closed Date Diagnosis/Indication Diagnosis SNOMED-CT Code Diagnosis ICD10 Code Diagnosis Note [id number] UMESH DIAZ MD [facility] [address] [place] [address] 03/13/2024 13:18:07 03/13/2024 13:52:50 Oropharyngeal dysphagia 90042209 R13.12 Exam and laryngosco py were normal. I recommend a swallow study (MBS) to reassess her swallow. F/u after. If normal I would suggest GI referral especially given her Sjogrens. Sj gren's syndrome 56997850 M35.00 Encouraged hydration. Will consider GI referral [...] Mendez Member ID Guarantor Name 03/13/2024 1 [facility] - DOS ON OR AFTER 2022 - MEDICARE ADVANTAGE [place] & [place] (MEDICARE REPLACEMENT/AD VANTAGE - PPO) Jennifer Gu [id number] Jennifer Gu Notes Date Note Type Note Provider Name and Address Organization Details Recorded Time 03/13/2024 text/html ROS as noted in the HPI She presents with dysphagia. She was seen for the same [...] and dry mouth. UMESH DIAZ MD [address] [place] [address], [place], [address], [place] [facility] 03/13/2024 13:43:36 OBGyn Episode No OBEpisode recorded.
== END 2024-09-25 09:46 | disposition home or self-care (01) ==
LOC: HO.HOSX 09:45
PROVIDERS: Visit Provider Physician Assistant
DX: Z13.89 Encounter for screening for other disorder (principal)

== ENCOUNTER 2024-10-06 10:56 | Outpatient (REF) | payer OTHER, SELFPAY ==
--- NOTE | ~2024-10-06 | XR_ITS ---
CLINICAL HISTORY: M25.559 - Pain in unspecified hip 1 view pelvis Comparison: None provided Findings: No acute fracture or dislocation. Periarticular osteophyte formation at the bilateral hip joints. Soft tissues are unremarkable. IMPRESSION: 1. No acute findings. This document has been electronically signed by: David Adames MD on 10/06/2024 15:02:26
== END 2024-10-06 10:57 | disposition home or self-care (01) ==
LOC: HO.HOSX 10:56
PROVIDERS: PCP Student in an Organized Health Care Education/Training Program; Visit Provider Physician Assistant
DX: M70.62 Trochanteric bursitis, left hip (principal); E11.42 Type 2 diabetes mellitus with diabetic polyneuropathy; M25.552 Pain in left hip
CPT/HCPCS: 20610; 72170; 99212; J1010; J2003

== ENCOUNTER 2024-10-06 10:56 | Outpatient (AMB) | payer OTHER, SELFPAY ==
--- NOTE | 2024-10-06 11:18 | MHC.OFFVIS ---
Vital Signs 10/06/24 11:21 Height 5 ft 2 in Weight 138 lb BMI 25.2 Handedness Right Intake Visit Reasons: New prob-Lt hip pain Intake Note: Jennifer is a 64 year old female who presents today for a evaluation of her left hip pain. Patient reports off and on pain for about 2 years. No histoyr of injury. She mentions that her pain is on the lateral aspect of the hip and it moves down her leg. Patient notices that her pain is worse when she is sitting and laying down. She has tried taking some medications for the pain and it didn't give her relief. IMPRESSION X ray (03/17/24): Mild osteoarthrosis without acute fracture or dislocation, left hip. Epidemiologist Services: Epidemiologist Present (Blair([id number])) Allergies codeine (Codeine) Allergy (Mild, Verified 10/06/24 11:21) BURNING IN CHEST, chest pain sulfamethoxazole (From Bactrim) Allergy (Mild, Verified 10/06/24 11:21) ITCH,RASH HPI HPI New prob-Lt hip pain: Details: Ms. Palmer is a 64yo female who presents to the office today for left hip pain. The pain is located on the lateral aspect of the hip and she is able to pinpoint the area over the greater troch as one of the areas of pain. She the patient does report that occasionally she does have pain that radiates down the leg into her foot. She is able to lay on the left side due to pain. She has tried taking gted-nys-eiagndm anti-inflammatories and pain relievers with no improvement. [facility] Medical History (Updated 10/06/24 @ 16:16 by Amada Macias PA-C) Greater trochanteric bursitis of left hip Hyperparathyroidism DM2 (diabetes mellitus, type 2) Vitamin D deficiency 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 rheumatoid arthritis 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 SOY (obstructive sleep apnea) COPD (chronic obstructive pulmonary disease) Sicca syndrome Constipation Alopecia Sjogrens syndrome Osteoarthritis Rheumatoid arthritis Fibromyalgia Back pain Difficulty swallowing GERD (gastroesophageal reflux disease) Depression Asthma Elevated cholesterol HTN (hypertension) Surgical History History of laryngoscopy Hx of hemorrhoidectomy History of bladder suspension procedure Hx of dilation and curettage Hx of tubal ligation History of repair of left rotator cuff Hx of colonoscopy History of esophagogastroduodenoscopy (EGD) Family History Father Cancer Mother Heart disease Diabetes Social History Household Members: Children and Other Household Members Other:: daughter, grandkids Are you a primary career portals teacher to a significant other at home: No Do you presently have visiting nurse or other home services: No Alcohol intake: never Patient Tobacco Use Status: Never used Tobacco e-Cigarette/Vaping Use: Never Used Second Hand Smoke Exposure: No 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al status: disabled 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 Tenderness to palpation over the greater trochanteric bursa. 4/5 strength with resisted hip flexion, knee extension, abduction, and abduction. Able to perform straight leg raise. NVI. Psych Appearance: grossly normal Mental Status: mental status grossly normal Attitude: cooperative Office Procedures AMB Joint Injection/Aspiration Joint Injection/Aspiration Primary Site: other (Left hip greater troch bursa) Prep: site was prepped using aseptic technique, ethochloride spray was applied and injection warnings given Injected: 40 mg of, DepoMedrol, with 8 mL of (2% plain lidocaine) and other (Lateral hip into the greater troch bursa) Approach Used: other (Lateral) Procedure: The patient tolerated the procedure well, but had some pain with the injection and there was some relief with the local anesthesia Coding 89290 - Glenohumeral/Tronchanteric Bursa/Intraarticular Procedure code (CPT) selection complete Assessment & Plan Assessment & Plan (1) Greater trochanteric bursitis of left hip: Code(s): M70.62 - Trochanteric bursitis, left hip Category: Medical (2) DM2 (diabetes mellitus, type 2): Code(s): E11.9 - Type 2 diabetes mellitus without complications Category: Medical Qualifiers: Diabetes mellitus half-way insulin use: without half-way use Diabetes mellitus complication status: with neurologic complications Diabetes mellitus complication detail: with polyneuropathy Qualified Code(s): E11.42 - Type 2 diabetes mellitus with diabetic polyneuropathy Plan The patient was offered a cortisone injection in the left greater trochanteric bursa with 40 mg of DepoMedrol. The patient was explained the risks, benefits, and alternatives to receiving this injection. After receiving consent for the injection, the patient had the procedure done while in the office today. The patient tolerated the procedure well with no complications. Due to the patient?s history of diabetes, they were instructed to monitor their blood glucose level. The patient was informed that they could see a rise in their numbers and if the numbers became too high, they were instructed to call their PCP. The patient was also informed that they could have facial flushing as a side effect of the injection, but this will pass. Follow-up will be PRN, or sooner if needed X-rays of the pelvis which were obtained while in the office today and were reviewed by me, Amada Macias PA-C, revealed no acute findings. Orders: Orders XR pelvis 1-2V Today M25.559 - Pain in unspecified hip Coding Level of Care Code Est Pt Level 4 (26708) Diagnoses Greater trochanteric bursitis of left hip M70.62 Type 2 diabetes mellitus with diabetic polyneuropathy, without long-term current use of insulin E11.42 Diabetes mellitus half-way insulin use: without revenue research analyst use Diabetes mellitus complication status: with neurologic complications Diabetes mellitus complication detail: with polyneuropathy CPT Codes Coding - Joint 7: 82246 - Glenohumeral/Tronchanteric Bursa/Intraarticular ([id number])
[2024-10-06 11:21] VITALS: BMI 25.2
--- OUTSIDE RECORDS SUMMARY | 2024-10-06 11:42 | XMS_ITS | Clinical Summary ---
Author Organization [facility] Address [address] [place] [address] Phone Care Team Providers Care Rodding Anode Worker Name Role Phone Mark Foote MD Primary [...] ACO C3 ACO C3 ACO Care Teams Rodding Anode Worker Relationship Specialty Start Date End Date Mark Foote MD [address] [place] [address] PCP - General Pediatrics 10/15/19 Additional Source Comments The information contained in this document represents components of the legal health record. It is not the complete legal health record.[facility]
--- OUTSIDE RECORDS SUMMARY | 2024-10-06 11:42 | XMS_ITS | Clinical Summary ---
Author Organization [facility] Address [address] [place] [address] Phone Care Team Providers Care Senior Science Consultant Name Role Phone Berkley Bird MD [...] AM EDT Office Visit Orthopedic Surgery - [address] [address] Magen Velasco DPM Controlled type 2 diabetes with neuropathy ([facility] V24, [facility] V28) (Primary Dx); Pain in toes of [...] LAB CHEMISTRY METHOD 04/06/2024 6:42 PM EST [facility] Potassium 3.5 3.5 - 5.5 mmol/L LAB CHEMISTRY METHOD 04/06/2024 6:42 PM [facility] Chloride 102 96 - 110 mmol/L LAB CHEMISTRY METHOD 04/06/2024 6:42 PM [facility] CO2 31 21 - 32 mmol/L LAB CHEMISTRY METHOD 04/06/2024 6:42 PM [facility] Anion Gap 5 3 - 11 LAB CHEMISTRY METHOD 04/06/2024 6:42 PM [facility] Glucose 183(H) 70 - 100 mg/dL LAB CHEMISTRY METHOD 04/06/2024 6:42 PM [facility] BUN 17 5 - 25 mg/dL LAB CHEMISTRY METHOD 04/06/2024 6:42 PM [facility] Creatinine 0.94 0.50 - 1.10 mg/dL LAB CHEMISTRY METHOD 04/06/2024 6:42 PM [facility] eGFR 67 >=60 mL/min/1. 73m2 LAB CHEMISTRY METHOD 04/06/2024 6:42 PM [facility] Comment:Calculation based on the Chronic Kidney Disease Epidemiology Collaboration (CKD-EPI) equation refit without adjustment for race. BUN/Creatinine Ratio 18.1 LAB CHEMISTRY METHOD 04/06/2024 6:42 PM [facility] Calcium 10.3 8.5 - 10.5 mg/dL LAB CHEMISTRY METHOD 04/06/2024 6:42 PM [facility] AST (SGOT) 15 10 - 42 unit/L LAB CHEMISTRY METHOD 04/06/2024 6:42 PM [facility] ALT (SGPT) 22 10 - 60 unit/L LAB CHEMISTRY METHOD 04/06/2024 6:42 PM [facility] Alkaline Phosphatase 140(H) 42 - 121 unit/L LAB CHEMISTRY METHOD 04/06/2024 6:42 PM [facility] Total Protein 7.6 6.0 - 8.0 g/dL LAB CHEMISTRY METHOD 04/06/2024 6:42 PM [facility] Albumin 3.6 3.2 - 5.0 g/dL LAB CHEMISTRY METHOD 04/06/2024 6:42 PM EST [facility] Total Bilirubin 0.3 0.0 - 1.4 mg/dL LAB CHEMISTRY METHOD 04/06/2024 6:42 PM EST [facility] Blood Venous blood specimen / Unknown Venipuncture / Unknown 04/06/2024 2:00 PM EST 04/06/2024 2:00 PM EST us Magen Velasco DPM LAB BLOOD ORDERABLES Final Result [facility] ([facility]) [facility] [address] [place] [address], from Last 3 Months or Most Recently Relevant to [place] [id number] [facility] MEDICARE Member Subscriber Plan / Payer (Ef fective 2023-Present) Name:Jennifer Payton Relation to Subscriber:Self Name:Jennifer Palmer Payer ID:[id number] Group ID:[id number] Type:Not on file Address: [place] [address] [place] [address] Care Teams Senior Science Consultant Relationship Specialty Start Date End Date Berkley Bird MD [address] [address] PCP - General Internal Medicine 02/20/24
--- OUTSIDE RECORDS SUMMARY | 2024-10-06 11:42 | XMS_ITS | Encounter Summary ---
Author Organization [employer] Address [address] [facility] 7t [place] [address] Care Team Providers Care Orderly Name Role Phone Emy Askew MD Primary Care Pro vider Encounter Details Date Type Department Care Team ([facility] st Contact Info) Description 08/07/2023 Orders Only [facility] CH[facility] MED & PEDS [address] [place] [address] Valeria Armas FNP [address] [place] [address] Social History Tobacco Use Types Packs/Day Years [...] Care Team (Late st Contact Info) Description 10/16/2024 9:30 AM EDT Clinical Support [facility] MEDICINE [address] [place] [address] 11/24/2024 10:45 AM EDT Office Visit [address] [address] Emy Askew MD [address] [place] [address] documented as of this encounter Visit Diagnoses Not on filedocumented in this encounter Additional Health Concerns Assessment Noted Time PHQ-9 Depression Total Score: 16 023 10:16 AM EDT documented as of this encounter Care Teams Orderly Relationship Specialty Start Date End Date Emy Askew MD [address] [place] [address] PCP - General Internal Medicine 07/25/22 documented as of this encounter
== END 2024-10-06 12:16 | disposition home or self-care (01) ==
PROVIDERS: PCP Student in an Organized Health Care Education/Training Program; Visit Provider Physician Assistant
DX: M70.62 Trochanteric bursitis, left hip (principal); E11.42 Type 2 diabetes mellitus with diabetic polyneuropathy
CPT/HCPCS: 20610; 99214

== ENCOUNTER → 2024-10-06 10:59 | Outpatient (BNV) | payer OTHER, SELFPAY | PROVIDERS: PCP Student in an Organized Health Care Education/Training Program; Visit Provider Radiology Diagnostic Radiology | DX: M25.751 Osteophyte, right hip (principal); M25.752 Osteophyte, left hip | CPT/HCPCS: 72170 ==

== ENCOUNTER 2024-10-13 08:29 | Outpatient (REF) | payer OTHER, SELFPAY ==
--- OUTSIDE RECORDS SUMMARY | 2024-10-14 08:42 | XMS_ITS | Clinical Summary ---
Author Organization [facility] Address [address] [facility] [address] [place] [address] Phone Care Team Providers Care Canvas Goods Supervisor Name Role Phone Mark Foote MD Primary [...] ACO C3 ACO C3 ACO Care Teams Canvas Goods Supervisor Relationship Specialty Start Date End Date Mark Foote MD [address] [place] [address] PCP - General Pediatrics 10/15/19 Additional Source Comments The information contained in this document represents components of the legal health record. It is not the complete legal health record.[facility]
--- OUTSIDE RECORDS SUMMARY | 2024-10-14 08:42 | XMS_ITS | Encounter Summary ---
Author Organization [employer] Address [address] [facility] 7t [place] [address] Care Team Providers Care Shearer Operator Name Role Phone Emy Askew MD Primary Care Pro vider Encounter Details Date Type Department Care Team ([facility] st Contact Info) Description 08/07/2023 Orders Only [facility] CHC MED & PEDS [address] [place] [address] Valeria Armas FNP [address] [place] [address] Social History Tobacco Use Types Packs/Day Years [...] Description 10/16/2024 9:30 AM EDT Clinical Support [facility] MEDICINE [address] [place] [address] 11/24/2024 10:45 AM EDT Office Visit [address] [address] Emy Askew MD [address] [place] [address] documented as of this encounter Visit Diagnoses Not on filedocumented in this encounter Additional Health Concerns Assessment Noted Time PHQ-9 Depression Total Score: 16 023 10:16 AM EDT documented as of this encounter Care Teams Shearer Operator Relationship Specialty Start Date End Date Emy Askew MD [address] [place] [address] PCP - General Internal Medicine 07/25/22 documented as of this encounter
--- OUTSIDE RECORDS SUMMARY | 2024-10-14 08:42 | XMS_ITS | Clinical Summary ---
Author Organization [facility] Address [address] [place] [address] Phone Care Team Providers Care Engine Specialist Name Role Phone Berkley Bird MD Primary [...] (CMS/HCC V24, CMS/HCC V28) 12/22/2012 Asthma 12/22/2012 Social History Tobacco Use [...] LAB CHEMISTRY METHOD 04/06/2024 6:42 PM [facility] Potassium 3.5 3.5 - 5.5 mmol/L LAB CHEMISTRY METHOD 04/06/2024 6:42 PM [facility] Chloride 102 96 - 110 mmol/L LAB CHEMISTRY METHOD 04/06/2024 6:42 PM [facility] CO2 31 21 - 32 mmol/L LAB CHEMISTRY METHOD 04/06/2024 6:42 PM [facility] Anion Gap 5 3 - 11 LAB CHEMISTRY METHOD 04/06/2024 6:42 PM [facility] Glucose 183(H) 70 - 100 mg/dL LAB CHEMISTRY METHOD 04/06/2024 6:42 PM [facility] BUN 17 5 - 25 mg/dL LAB CHEMISTRY METHOD 04/06/2024 6:42 PM [facility] Creatinine 0.94 0.50 - 1.10 mg/dL LAB CHEMISTRY METHOD 04/06/2024 6:42 PM [facility] eGFR 67 >=60 mL/min/1. 73m2 LAB CHEMISTRY METHOD 04/06/2024 6:42 PM [facility] Comment:Calculation based on the Chronic Kidney Disease Epidemiology Collaboration (CKD-EPI) equation refit without adjustment for race. BUN/Creatinine Ratio 18.1 LAB CHEMISTRY METHOD 04/06/2024 6:42 PM [facility] Calcium 10.3 8.5 - 10.5 mg/dL LAB CHEMISTRY METHOD 04/06/2024 6:42 PM [facility] AST (SGOT) 15 10 - 42 unit/L LAB CHEMISTRY METHOD 04/06/2024 6:42 PM [facility] ALT (SGPT) 22 10 - 60 unit/L LAB CHEMISTRY METHOD 04/06/2024 6:42 PM [facility] Alkaline Phosphatase 140(H) 42 - 121 unit/L LAB CHEMISTRY METHOD 04/06/2024 6:42 PM [facility] Total Protein 7.6 6.0 - 8.0 g/dL LAB CHEMISTRY METHOD 04/06/2024 6:42 PM [facility] Albumin 3.6 3.2 - 5.0 g/dL LAB CHEMISTRY METHOD 04/06/2024 6:42 PM [facility] Total Bilirubin 0.3 0.0 - 1.4 mg/dL LAB CHEMISTRY METHOD 04/06/2024 6:42 PM [facility] Blood Venous blood specimen / Unknown Venipuncture / Unknown 04/06/2024 2:00 PM EST 04/06/2024 2:00 PM EST us Magen Velasco DPM LAB BLOOD ORDERABLES Final Result [facility] [address] [place] [address], [place] [phone] from Last 3 Months or Most Recently Relevant to Health Maintenance Insurance [facility] MEDIC[facility] Member Subscriber Plan / Payer (Ef fective 2023-Present) Name:Jennifer Payton Relation to Subscriber:Self Name:Jennifer Palmer Payer ID:[id number] Group ID:[id number] Type:Not on file Address: [place] [address] [place] [address] Care Teams Engine Specialist Relationship Specialty Start Date End Date Berkley Bird MD [address] [address] PCP - General Internal Medicine 02/20/24
== END 2024-10-13 08:30 | disposition home or self-care (01) ==
LOC: HO.HOSX 08:29
PROVIDERS: Visit Provider Physician Assistant
DX: Z13.89 Encounter for screening for other disorder (principal)

== ENCOUNTER 2024-10-22 10:57 | Outpatient (REF) | payer OTHER, SELFPAY ==
[2024-10-22 12:20] LABS: Anion Gap 9 (12-20); Blood Urea Nitrogen 17 mg/dL (9-16); Calcium 9.2 mg/dL (8.4-10.2); Carbon Dioxide 30 mmol/L (22-29); Chloride 108 mmol/L (96-108); Estimated Glomerular Filt Rate > 60; Potassium 3.4 mmol/L (3.3-5.1); Sodium 144 mmol/L (135-145)
[2024-10-22 12:25] LABS: B Type Natriuretic Peptide 37 pg/mL (<100)
--- OUTSIDE RECORDS SUMMARY | 2024-10-22 12:32 | XMS_ITS | Clinical Summary ---
Author Organization [facility] Address [address] [facility] [address] [place] [address] Phone Care Team Providers Care Stereotyper Apprentice Name Role Phone Mark Foote MD Primary [...] ACO C3 ACO C3 ACO Care Teams Stereotyper Apprentice Relationship Specialty Start Date End Date Mark Foote MD [address] [place] [address] PCP - General Pediatrics 10/15/19 Additional Source Comments The information contained in this document represents components of the legal health record. It is not the complete legal health record.[facility]
--- OUTSIDE RECORDS SUMMARY | 2024-10-22 12:32 | XMS_ITS | Clinical Summary ---
Author Organization 175 [facility] Address [address] [place] [address] Phone Care Team Providers Care Supplier Engineer Name Role Phone Berkley Bird MD [...] mmol/L LAB CHEMISTRY METHOD 04/06/2024 6:42 PM [facility] Potassium 3.5 3.5 - 5.5 mmol/L LAB CHEMISTRY METHOD 04/06/2024 6:42 PM [facility] Chloride 102 96 - 110 mmol/L LAB CHEMISTRY METHOD 04/06/2024 6:42 PM [facility] CO2 31 21 - 32 mmol/L LAB CHEMISTRY METHOD 04/06/2024 6:42 PM [facility] Anion Gap 5 3 - 11 LAB CHEMISTRY METHOD 04/06/2024 6:42 PM [facility] Glucose 183(H) 70 - 100 mg/dL LAB CHEMISTRY METHOD 04/06/2024 6:42 PM [facility] BUN 17 5 - 25 mg/dL LAB CHEMISTRY METHOD 04/06/2024 6:42 PM [facility] Creatinine 0.94 0.50 - 1.10 mg/dL LAB CHEMISTRY METHOD 04/06/2024 6:42 PM [facility] eGFR 67 >=60 mL/min/1. 73m2 LAB CHEMISTRY METHOD 04/06/2024 6:42 PM [facility] Comment:Calculation based on the Chronic Kidney Disease Epidemiology Collaboration (CKD-EPI) equation refit without adjustment for race. BUN/Creatinine Ratio 18.1 LAB CHEMISTRY METHOD 04/06/2024 6:42 PM [facility] Calcium 10.3 8.5 - 10.5 mg/dL LAB CHEMISTRY METHOD 04/06/2024 6:42 PM [facility] AST (SGOT) 15 10 - 42 unit/L LAB CHEMISTRY METHOD 04/06/2024 6:42 PM [facility] ALT (SGPT) 22 10 - 60 unit/L LAB CHEMISTRY METHOD 04/06/2024 6:42 PM [facility] Alkaline Phosphatase 140(H) 42 - 121 unit/L LAB CHEMISTRY METHOD 04/06/2024 6:42 PM [facility] Total Protein 7.6 6.0 - 8.0 g/dL LAB CHEMISTRY METHOD 04/06/2024 6:42 PM [facility] Albumin 3.6 3.2 - 5.0 g/dL LAB CHEMISTRY METHOD 04/06/2024 6:42 PM [facility] Total Bilirubin 0.3 0.0 - 1.4 mg/dL LAB CHEMISTRY METHOD 04/06/2024 6:42 PM [facility] Blood Venous blood specimen / Unknown Venipuncture / Unknown 04/06/2024 2:00 PM EST 04/06/2024 2:00 PM EST us Magen Velasco DPM LAB BLOOD ORDERABLES Final Result [facility] [address] [place] [address], [place] [phone] from Last 3 Months or Most Recently Relevant to Health Maintenance Insurance [facility] MEDICARE Member Subscriber Plan / Payer (Ef fective 2023-Present) Name:Jennifer Payton Relation to Subscriber:Self Name:Jennifer Palmer Payer ID:[id number] Group ID:[id number] Type:Not on file Address: [place] [address] [place] [address] Care Teams Supplier Engineer Relationship Specialty Start Date End Date Berkley Bird MD [address] [address] PCP - General Internal Medicine 02/20/24
--- OUTSIDE RECORDS SUMMARY | 2024-10-22 12:32 | XMS_ITS | Encounter Summary ---
Author Organization [employer] Address [address] [facility] 7t [place] [address] Care Team Providers Care Hose Stripper Name Role Phone Emy Askew MD Primary Care Pro vider Encounter Details Date Type Department Care Team ([facility] st Contact Info) Description 08/07/2023 Orders Only [facility] CHC MED & PEDS [address] [place] [address] Valeria Armas FNP [address] [place] [address] Social History Tobacco Use Types Packs/Day Years [...] Care Team (Late st Contact Info) Description 11/24/2024 10:45 AM EDT Office Visit [facility] MEDICINE [address] [place] [address] Emy Askew MD [address] [place] [address] documented as of this encounter Visit Diagnoses Not on filedocumented in this encounter Additional Health Concerns Assessment Noted Time PHQ-9 Depression Total Score: 16 023 10:16 AM EDT documented as of this encounter Care Teams Hose Stripper Relationship Specialty Start Date End Date Emy Askew MD [address] [place] [address] PCP - General Internal Medicine 07/25/22 documented as of this encounter
== END 2024-10-22 10:58 | disposition home or self-care (01) ==
LOC: HO.LAB 10:57
PROVIDERS: PCP Student in an Organized Health Care Education/Training Program; Visit Provider Internal Medicine Cardiovascular Disease
DX: R06.02 Shortness of breath (principal)
CPT/HCPCS: 36415; 80048; 83880

== ENCOUNTER 2024-11-12 09:12 | Outpatient (AMB) | payer OTHER, SELFPAY ==
--- NOTE | 2024-11-12 09:23 | A.OFFVIS_ITS ---
Intake Visit Reasons: inj-B/L knee OA - last 08/10/24 Intake Note: Jennifer is a 64 year old female who presents today for a follow up of her bilateral knee OA. At her last visit on 08/10/24 we injected bilateral knees and discussed possible gel injections if the cortisone is not longer providing her with lasting relief. cortisone hx: 08/10/24, 05/07/24 Diabetes: A1C 09/01/24 - 7.9 Has tried & failed NSAIDS: Naproxen 07/12/21, Ibuprofen, Acetaminophen Has tried and failed: Phsyical Therapy - 03/27/24 & 08/10/24 Allergies codeine (Codeine) Allergy (Mild, Verified 10/06/24 11:21) BURNING IN CHEST, chest pain sulfamethoxazole (From Bactrim) Allergy (Mild, Verified 10/06/24 11:21) ITCH,RASH HPI HPI inj-B/L knee OA - last 08/10/24: Details: Jennifer is a 64 year old female who presents today for a follow up of her bilateral knee OA. At her last visit on 08/10/24 we injected bilateral knees and discussed possible gel injections if the cortisone is not longer providing her with lasting relief. 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 SOY (obstructive sleep apnea) COPD (chronic obstructive pulmonary disease) Sicca syndrome Constipation Alopecia Sjogrens syndrome Osteoarthritis Rheumatoid arthritis Fibromyalgia Back pain Difficulty swallowing GERD (gastroesophageal reflux disease) Depression Asthma Elevated cholesterol HTN (hypertension) Surgical History History of laryngoscopy Hx of hemorrhoidectomy History of bladder suspension procedure Hx of dilation and curettage Hx of tubal ligation History of repair of left rotator cuff Hx of colonoscopy History of esophagogastroduodenoscopy (EGD) Family History Father Cancer Mother Heart disease Diabetes Social History Household Members: Children and Other Household Members Other:: daughter, grandkids Are you a primary nurse healthcare manager to a significant other at home: No Do you presently have visiting nurse or other home services: No Alcohol intake: never Patient Tobacco Use Status: Never used Tobacco e-Cigarette/Vaping Use: Never Used Second Hand Smoke Exposure: No 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al status: disabled 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 Physical Exam Const General: no acute distress, alert and awake Orientation/consciousness: patient oriented x3 HEENT Head: Yes normocephalic and Yes atraumatic Eyes EOM: EOMs intact bilaterally Resp Effort & Inspection: normal respiratory effort and able to speak in complete sentences Cardio Jugular venous distension: no JVD Skin General skin exam: turgor normal Rashes: no rashes Neuro General: patient oriented x3 Extrem Other: Bilateral Knees: Antalgic gait TTP medial compartment 5-130 degrees ROM Psych Appearance: grossly normal Affect: normal affect Attitude: cooperative Results Reviewed Results Reviewed: I personally reviewed relevant radiographs. . Tricompartment arthritis right knee. Severe medial compartment arthritis. Findings similar to previous. 2. Tricompartment arthritis left knee. Severe medial compartment arthritis. Findings similar to previous. Assessment & Plan Assessment & Plan (1) Bilateral primary osteoarthritis of knee: Code(s): M17.0 - Bilateral primary osteoarthritis of knee Category: Medical Plan: This is a 64-year-old diabetic female with bilateral knee osteoarthritis. She has not responded well to steroid injections and I recommend viscosupplementation. We will contact her when this has been approved. Coding Level of Care Code Est Pt Level 3 (40225) Diagnoses Bilateral primary osteoarthritis of knee M17.0
--- OUTSIDE RECORDS SUMMARY | 2024-11-12 10:37 | XMS_ITS | Encounter Summary ---
Author Organization [employer] Address [address] [place] [address] Care Team Providers Care Medical Information Officer Name Role Phone Emy Askew MD Primary Care Pro vider Reason for Visit * Reason Onset Date Comments pre-op paperwork 10/18/2022 Encounter Details Date Type Department Care Team ([facility] st Contact Info) Description 10/18/2022 Telephone [facility] MEDICINE [address] [place] [address] Emy Askew MD [address] [place] [address] pre-op paperwork Social History Tobacco Use Types [...] methotrexate and leflunomide??( if ok with her silver miner)-pt to confirm and Cymbalta if taking in am. Hold am of surgery lasix,amytriptiline,lisinopril ??.HoldASA 5 days prior procedure and avoid NSAIDS 7 days prior procedure. Thanks documented in this encounter Plan of Treatment Upcoming Encounters Date Type Department Care Team (Late st Contact Info) Description 11/24/2024 10:45 AM EDT Office Visit [facility] MEDICINE [address] [place] [address] Emy Askew MD [address] [place] [address] 03/19/2025 9:30 AM EST Office Visit [facility] OPTOMETRY [address] [place], [place] [phone] Rachel Collado, OD [address] [place] [address] documented as of this encounter Visit Diagnoses Not on filedocumented in this encounter Additional Health Concerns Assessment Noted Time PHQ-9 Depression Total Score: 16 023 10:16 AM EDT documented as of this encounter Care Teams Medical Information Officer Relationship Specialty Start Date End Date Emy Askew MD [address] [place] [address] PCP - General Internal Medicine 07/25/22 documented as of this encounter
--- OUTSIDE RECORDS SUMMARY | 2024-11-12 10:37 | XMS_ITS | Encounter Summary ---
Author Organization [employer] Address [address] [place] [address] Care Team Providers Care Roll Forming Supervisor Name Role Phone Emy Askew MD Primary Care Pro vider Reason for Visit * Reason Onset Date Comments Triage 07/31/2022 Encounter Details Date Type Department Care Team ([facility] st Contact Info) Description 07/31/2022 Telephone [facility] MEDICINE [address] [place] [address] Emy Askew MD [address] [place] [address] Triage Social History Tobacco Use Types Packs/Day [...] The caller accepted this outcome Patient speaks malay. documented in this encounter Plan of Treatment Upcoming Encounters Date Type Department Care Team (Late st Contact Info) Description 11/24/2024 10:45 AM EDT Office Visit [facility] MEDICINE [address] [place] [address] Emy Askew MD [address] [place] [address] 03/19/2025 9:30 AM EST Office Visit [facility] OPTOMETRY [address] [place], [place] [phone] Rachel Collado, OD [address] [place] [address] documented as of this encounter Visit Diagnoses Not on filedocumented in this encounter Care Teams Roll Forming Supervisor Relationship Specialty Start Date End Date Emy Askew MD [address] [place] [address] PCP - General Internal Medicine 07/25/22 documented as of this encounter
--- OUTSIDE RECORDS SUMMARY | 2024-11-12 10:37 | XMS_ITS | Encounter Summary ---
Author Organization [employer] Address [address] [facility] 7t [place] [address] Care Team Providers Care Milling Machine Tender Name Role Phone Emy Askew MD Primary Care Pro vider Encounter Details Date Type Department Care Team ([facility] st Contact Info) Description 08/07/2023 Orders Only [facility] CHC MED & PEDS [address] [place] [address] Valeria Armas FNP [address] [place] [address] Social History Tobacco Use Types Packs/Day Years [...] Office Visit [facility] MEDICINE [address] [place] [address] Emy Askew MD [address] [place] [address] 03/19/2025 9:30 AM EST Office Visit [facility] OPTOMETRY [address] [place] [address] Tobias, Rachel, OD [address] [place] [address] documented as of this encounter Visit Diagnoses Not on filedocumented in this encounter Additional Health Concerns Assessment Noted Time PHQ-9 Depression Total Score: 16 023 10:16 AM EDT documented as of this encounter Care Teams Milling Machine Tender Relationship Specialty Start Date End Date Emy Aksew MD [address] [place] [address] PCP - General Internal Medicine 07/25/22 documented as of this encounter
--- OUTSIDE RECORDS SUMMARY | 2024-11-12 10:38 | XMS_ITS | Encounter Summary ---
Author Organization [email or web address] Address [address] [place] [address] Care Team Providers Care Tile Layer Helper Name Role Phone Cyn Bosch MD Primary Care Provider Michelle utedith [facility] Primary Care Provider [phone] Emy Askew MD Primary Care Pro vider Encounter Details Date Type Department Care Team (Latest Contact Info) Description 09/30/2018 Abstract [facility] CONVERSIONS Dental, Provider, DDS Social [...] Description 11/24/2024 10:45 AM EDT Office Visit [facility] MEDICINE [address] [place] [address] Emy Askew MD [address] [place] [address] 03/19/2025 9:30 AM EST Office Visit [facility] OPTOMETRY [address] [place] [address] Rachel Collado, OD [address] [place] [address] documented as of this encounter Visit Diagnoses Not on filedocumented in this encounter Care Teams Tile Layer Helper Relationship Specialty Start Date End Date Cyn Bosch MD PCP - General Family Medicine 08/20/19 01/21/22 [place] FNP [address] [place] [id number] PCP - General Family Medicine 01/22/22 07/24/22 Emy Askew MD [address] [place] [id number] PCP - General Internal Medicine 07/25/22 documented as of this encounter
--- OUTSIDE RECORDS SUMMARY | 2024-11-12 10:38 | XMS_ITS | Encounter Summary ---
Author Organization [employer] Address [address] [place] [address] Care Team Providers Care Manager Solar Name Role Phone Cyn Bosch MD Primary Care Provider Michelle kyedith [facility] Primary Care Provider [phone] Emy Askew MD Primary Care Pro vider Encounter Details Date Type Department Care Team (Latest Contact Info) Description 10/26/2021 Abstract [facility] CONVERSIONS Dental, Provider, DDS Social [...] Description 11/24/2024 10:45 AM EDT Office Visit [facility] MEDICINE [address] [place] [address] Emy Askew MD [address] [place] [address] 03/19/2025 9:30 AM EST Office Visit [facility] OPTOMETRY [address] [place] [address] Rachel Collado, OD [address] [place] [address] documented as of this encounter Visit Diagnoses Not on filedocumented in this encounter Care Teams Manager Solar Relationship Specialty Start Date End Date Cyn Bosch MD PCP - General Family Medicine 08/20/19 01/21/22 [place] FNP [address] [place] [id number] PCP - General Family Medicine 01/22/22 07/24/22 Emy Askew MD [address] [place] [id number] PCP - General Internal Medicine 07/25/22 documented as of this encounter
--- OUTSIDE RECORDS SUMMARY | 2024-11-12 10:38 | XMS_ITS | Encounter Summary ---
Author Organization [employer] Address [address] [place] [address] [address] [place] [address] Care Team Providers Care Hydrometeorological Technician Name Role Phone [place] Sol HOTBED LEVER OPERATOR Primary Care Provider [phone] Emy Askew MD Primary Care Pro vider Encounter Details Date Type Department Care Team (Late Contact Info) Description 05/28/2022 Orders Only [facility] CHC MED & PEDS [address] [place], [place] [phone] Candy Miller LPN Social History Tobacco Use [...] Department Care Team (Late Contact Info) Description 11/24/2024 10:45 AM EDT Office Visit [facility] MEDICINE [address] [place], [place] [phone] Emy Askew MD [address] [place], [place] [phone] 03/19/2025 9:30 AM EST Office Visit [facility] OPTOMETRY [address] [place], [place] [phone] Rachel Collado OD [address] [place] [address] documented as of this encounter Visit Diagnoses Not on filedocumented in this encounter Care Teams Hydrometeorological Technician Relationship Specialty Start Date End Date [place] oSl FNP [address] [place] [address] [phone] PCP - General Family Medicine 01/22/22 07/24/22 Emy Askew MD [address] [place] [address] [id number] PCP - General Internal Medicine 07/25/22 documented as of this encounter
--- OUTSIDE RECORDS SUMMARY | 2024-11-12 10:38 | XMS_ITS | Clinical Summary ---
Author Organization [facility] [facility] [employer] Address [address] [place] [address] 7 [place] [address] Care Team Providers Care Behavioral Services Tech Name Role Phone Emy Askew MD Primary Care Pro vider Allergies Active Allergy Reactions Criticality Noted Date Comments Codeine Unknown,Other 02/28/2010 Other Reaction(s): Not available codeine sulfate Sulfa Antibiotics 12/22/2012 Other Reaction(s): Not available Sulfamethoxazole Hives,Rash Low 02/28/2010 Sulfamethoxazole-Trimethopri m Rash,Other Low 07/17/2022 Other Reaction(s): Not available Bactrim Trimethoprim Hives 02/28/2010 Other reaction(s): rash Other Reaction(s): Not available Medications DULoxetine (Cymbalta) [address] capsule Take [...] to prevent dry mouth 018 Active Fluticasone Furoate-Vilanter ol (Breo Ellipta) 100-25 MCG/ACT aerosol powder Inhale 1 puff at bed time. 022 Active leflunomide (Arava) 20 MG tablet Take 20 mg by mouth in the morning. 023 Active estradiol (Estrace) 0.1 MG/GM vaginal cream Insert 1 g into the vagina Once per day. 1g vaginally x 14d, then twice weekly thereafter 45 g 2 024 Active lidocaine (Lidoderm) 5 % patch APPLY 1 PATCH TOPICALLY TO SKIN IN THE MORNING. LEAVE ON FOR 12 HOURS AND OFF FOR 12 HOURS DIRECTED MAY USE 2 PATCHES 60 patch 2 024 Active acetaminophen (Tylenol) 500 MG tabletIndication s:Acute left-sided low back pain with left-sided sciatica Take 2 tablets (1,000 mg) by mouth every 6 (six) hours if needed for moderate pain, headaches or fever. 30 tablet 024 Active Farxiga 10 MG TAKE 1 TABLET BY MOUTH EVERY MORNING 30 tablet 2 024 Active melatonin 5 MG tablet Take 10 mg by mouth Once per day. Take 2 tabs by mouth at bedtime Active clonazePAM (KlonoPIN) 0.5 MG tablet Take 0.5 mg by mouth if needed each day. 024 Active amLODIPine (Norvasc) 5 MG tablet Take 5 mg by mouth at noon and 5 mg in the evening. Active Diclofenac Sodium (Voltaren) 1 % gelIndications:[place] tam[place] pain,Osteoarthri tis of both knees, unspecified osteoarthritis type Apply topically to affected area twice a day as needed for pain 30 g 024 Active biotin 5 MG tablet Take 1 tablet (5 mg) by mouth Once per day. 90 tablet 1 025 Active bisacodyl (Dulcolax) 5 MG EC tablet TAKE 4 TABLETS BY MOUTH ONCE DIRECTED BY DOCTOR Active topiramate (Topamax) 25 MG tablet Active gabapentin (Neurontin) 400 MG capsule Take 1 capsule by mouth 2 times daily. Active D3 Super Strength 50 MCG (1999 UT) capsuleIndicatio ns:Vitamin D deficiency, unspecified TAKE 1 CAPSULE BY MOUTH EVERY MORNING 90 capsule 1 Active cloNIDine (Catapres) 0.2 MG tablet TAKE 1 TABLET BY MOUTH TWICE DAILY IN THE MORNING AND IN THE EVENING 60 tablet 3 Active TRUEplus Lancets 33G misc USE DIRECTED TO TEST BLOOD SUGAR FOUR TIMES DAILY 100 each Active Ventolin HFA 108 (90 Base) MCG/ACT inhaler INHALE 2 PUFFS BY MOUTH EVERY 6 HOURS NEEDED FOR WHEEZING 18 g 2 025 Active carvedilol (Coreg) 25 MG tabletIndication s:Benign essential hypertension TAKE 1 TABLET BY MOUTH TWICE DAILY IN THE MORNING AND IN THE EVENING 60 tablet 2 025 Active docusate sodium (Colace) 100 MG capsuleIndicatio ns:Chronic constipation TAKE 1 CAPSULE BY MOUTH TWICE DAILY NEEDED FOR CONSTIPATION 180 capsule 1 Active furosemide (Lasix) 40 MG tablet Take 40 mg by mouth in the morning. Active Ozempic, 0.25 or 0.5 MG/DOSE, 2 MG/3ML solution pen-injector INJECT 0.5 MG SUBCUTANEOUSLY EVERY 7 DAYS IN THE ABDOMEN, THIGHS, OR UPPER ARM, ROTATE INJECTION SITES. 024 Active potassium chloride CR (Klor-Con M20) 20 MEQ ER tablet take 1 tablet by mouth every day with food Active insulin glargine (Lantus SoloStar) 100 UNIT/ML pen Inject 7 Units under the skin at bedtime. 3 mL 1 025 2025 Active Insulin Pen Needle (pen needle 07/17 ) 31G X 8 mm mis Daily use 100 each 12 025 2025 Active Continuous Glucose Linen Sorter (FreeStyle Anthony 3 Donnellson) deviceIndication s:Type 2 diabetes mellitus without complication, unspecified whether watermelon inspector insulin use ([facility]) 1 each Once per day. Use as directed for CGM 1 each Active Continuous Glucose Sensor (FreeStyle Anthony 3 Plus Sensor) miscIndications: Type 2 diabetes mellitus without complication, unspecified whether watermelon inspector insulin use ([facility]) 1 each every 15 days. Use to test blood sugar twice a day 2 each Active glucose blood (FreeStyle Precision Clement Test) test strip Use to test blood sugar twice a day 100 each 025 2025 Active atorvastatin (Lipitor) 20 MG tablet TAKE 1 TABLET BY MOUTH AT BEDTIME 90 tablet 025 Active Alcohol Swabs (Alcohol Prep) 70 % padsIndications: Type 2 diabetes mellitus without complication, unspecified whether watermelon inspector insulin use ([facility]) USE DIRECTED FIVE TIMES DAILY 100 each 5 Active cevimeline (Evoxac) 30 MG capsule TAKE 1 CAPSULE BY MOUTH THREE TIMES DAILY IN THE MORNING, AT NOON, AND IN THE EVENING 90 capsule 2 Active calcium carbonate 1500 (600 Ca) MG tabletIndication s:Benign essential hypertension TAKE 1 TABLET BY MOUTH EVERY MORNING 90 tablet 1 Active Aspirin Low Dose 81 MG EC tablet TAKE 1 TABLET BY MOUTH EVERY MORNING 90 tablet 1 Active loratadine (Claritin) 10 MG tablet TAKE 1 TABLET BY MOUTH EVERY DAY NEEDED FOR ALLERGIES 90 tablet 1 Active losartan (Cozaar) 100 MG tablet TAKE 1 TABLET BY MOUTH EVERY MORNING 90 tablet 1 Active senna (Senokot) 8.6 MG tablet TAKE 2 TABLETS BY MOUTH EVERY DAY NEEDED FOR CONSTIPATION 180 tablet 1 Active Aspirin EC Adult Low Dose 81 MG EC tablet TAKE 1 TABLET BY MOUTH EVERY MORNING 90 tablet 1 2024 Discontinued calcium carbonate 1500 (600 Ca) MG tabletIndication s:Benign essential hypertension TAKE 1 TABLET BY MOUTH EVERY MORNING 90 tablet 1 025 2024 Discontinued loratadine (Claritin) 10 MG tablet TAKE 1 TABLET BY MOUTH EVERY DAY NEEDED FOR ALLERGIES 90 tablet 1 025 2024 Discontinued cevimeline (Evoxac) 30 MG capsule TAKE 1 CAPSULE BY MOUTH 3 TIMES A DAY 270 capsule 025 2024 Discontinued senna (Senokot) 8.6 MG tablet TAKE 2 TABLETS BY MOUTH EVERY DAY NEEDED FOR CONSTIPATION 180 tablet 025 2024 Discontinued(R joel (will not trigger notification to Pharmacy)) losartan (Cozaar) 100 MG tablet TAKE 1 TABLET BY MOUTH EVERY MORNING 90 tablet 025 2024 Discontinued Active Problems Problem Noted Date Diagnosed Date Cholelithiasis 09/11/2024 Hypokalemia 09/11/2024 Alopecia of scalp 06/22/2024 Neck pain 01/13/2024 [...] referred by ENT for further eval in [place] but never went -referred again to ENT [...] referred by ENT for further eval in [place] but never went -referred again to ENT [...] w RA / Sjogren's disease, 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 Denies SI but has thoughts to be better off . - Continue care w specialist - Pt requests information to be able to change to an old age home --already received information -in process per pt Assessment & Plan (10/23/2022 5:23 PM EDT): Pt following w psychiatrist and therapist at [facility]. Denies SI but has thoughts to be better off . - Continue care w specialist - Pt requests information to be able to change to an old age home --already received information -in process per pt Assessment & Plan (09/24/2022 8:32 PM EDT): Pt following w psychiatrist and therapist at [facility]. Denies SI but has thoughts to be better off . - Continue care w specialist - Pt requests information to be able to change to an old age home -- I spoke w home health care case manager today and they will come to speak w pt to give info. Was told that there is no need to refer to [facility] for this. Type 2 diabetes mellitus without complication Assessment & Plan (12/06/2022 6:16 AM EDT): 09/2022 HbA1C 8.2<---8.7, CBG 248., total ch 169, trig 324( in fasting) ,HDL 36,LDL 69, Microalb neg Used to follow w plate worker, but lost care. Not on metformin for [...] - to f in 1 y. - Linting Machine Operator: seen in 11/2022 Assessment & Plan (10/23/2022 5:46 PM EDT): 09/2022 HbA1C 8.2<---8.7, CBG 248., total ch 169, trig 324( in fasting) ,HDL 36,LDL 69, Microalb neg Used to follow w plate worker, but lost care. Not on metformin for [...] - to f in 1 y. - Linting Machine Operator: referred today Assessment & Plan (09/24/2022 8:51 PM EDT): Today HbA1C 8.7, CBG 248. Used to follow w plate worker, but lost care. - DM2 labs. - Will consider increasing Trulicity at her next appt. - Pt not currently on Metformin, but used to be in the past. Will check at her next appt, and if she can tolerate it, will resume Rx. - Ophthalmology 07/2022 - to f in 1 y. - Linting Machine Operator: will refer at next visit. Varicose veins of lower extremity 07/08/2017 Assessment & Plan (10/23/2022 5:12 PM EDT): Pt w lower extremity edema trace from 1+ before , possibly from Cardiazem and venous insufficiency. - Advised to use compression stockings,--started using with noted improved LE edema -I confirmed today w her honey extractor-Dr Watkins #[phone] that pt does not have CHF and [...] (12/06/2022 6:19 AM EDT): Pt following with elevator constructor supervisor. Pt w consistently dry mouth. From med [...] for unclear reasons. - PT following w honey extractor actively w on and off chest discomfort. [...] mg in pm - PT following w honey extractor -will f BP in next 3 to 4 weeks Assessment & Plan (09/24/2022 8:43 PM EDT): BP slightly elevated at 144/94 - Holter 2019 neg. -echocardiogram 2018The left ventricular systolic function is normal. The visually estimated ejection fraction is between 60-65%. -stress test 2019 : nondiagnostic EKG For ischemia. - Will monitor BP manually at next visit. - PT following w honey extractor Chronic constipation 12/24/2016 Gastroesophageal reflux disease without [...] in 2016 here . 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 Hold am of surgery lasix,amytriptiline,lisinopril .Hold ASA 5 days prior procedure and avoid NSAIDS 7 days prior procedure. -will rec to have post op EKG as rec by her honey extractor for noted prolonged QTC -will rec to [...] Encounters Date Type Department Care Team Description 10/29/2024 Refill [facility] [address] [place] [address] Lucina Haro MD 10/29/2024 Refill [facility] [address] [place] [address] Emy Askew MD 10/26/2024 Refill [facility] [address] [place] [address] Lucy Main MD Benign essential hypertension 10/19/2024 9:30 AM EDT Clinical Support [facility] [address] [place] [address] Kaylen Mane, GARY Hyperlipidemia associated with type 2 diabetes mellitus ([facility]) 10/19/2024 Travel 10/18/2024 Telephone [facility] [address] [place] [address] Emy Askew MD Med Refill 10/16/2024 Travel 10/12/2024 Telephone [facility] [address] [place] [address] Emy Askew MD Prior Authorization (Ozempic) 10/08/2024 Refill [facility] [address] [place] [address] Lucy Main MD Type 2 diabetes mellitus without complication, unspecified whether mcfp insulin use ([facility]) 10/01/2024 1:00 PM EDT Clinical Support [facility] [address] [facility] [place] [address] Akilah Maradiaga, RN Type 2 diabetes mellitus without complication, unspecified whether mcfp insulin use (CMS/HCC) 10/01/2024 Travel 09/29/2024 Telephone [facility] [address] [facility] [place] [address] Doris Henry, GARY CGM 09/28/2024 Refill [facility] [place] [address] Keely Lutz MD 09/19/2024 Results Follow-Up [address] [address] Emy Askew MD Comprehensive Metabolic Panel, Magnesium, MR Abdomen w/ and w/o Contrast 09/19/2024 Orders Only [facility] [address] [facility] [place] [address] Emy Askew MD Hypokalemia (Primary Dx) 09/11/2024 9:30 AM EDT Office Visit [facility] [address] [facility] [place] [address] Emy Askew MD Benign essential hypertension (Primary Dx); Type 2 diabetes mellitus without complication, unspecified whether mcfp insulin use (CMS/HCC); Dietary counseling; Exercise counseling; Renal cyst; Healthcare maintenance; Severe recurrent major depression without psychotic features (CMS/HCC); Poor memory; Alopecia of scalp; Biliary calculus of other site without obstruction; Hypokalemia 09/11/2024 Telephone [facility] [address] [facility] [place] [address] Akilah Maradiaga, car wrecker 09/11/2024 Travel 09/10/2024 Telephone [facility] [address] [place], [place] [id number] Emy Askew MD Chart Prep 08/30/2024 Refill [facility] [address] [facility] [address] Florin Hammond MD Chronic constipation 08/27/2024 Refill [facility] [address] [place] [address] Emy Askew MD Benign essential hypertension 08/22/2024 Refill [facility] [address] [place] [address] Emy Askew MD 2024 Refill [facility] [address] [facility] [place] [address] Emy Askew MD 08/19/2024 Telephone [facility] [address] [place] [address] Doris Henry RN Lab Orders; MRI order 08/19/2024 Results Follow-Up [facility] [address] [place] [address] Abdomen Pelvis w/ Contrast 08/19/2024 Orders Only [facility] [address] [place] [address] Emy Askew MD Renal cyst (Primary Dx) 08/17/2024 10:00 AM EDT Clinical Support [facility] [address] [place] [address] Wing John, GARY Poor memory 08/17/2024 Travel from Last 3 Months Immunizations Immunization Administration [...] Sign Reading Time Taken Comments Blood Pressure 130/82 09/11/2024 9:27 AM EDT Pulse 77 09/11/2024 9:27 AM EDT Temperature 36.1 C (96.9 F) 09/11/2024 9:27 AM EDT Respiratory Rate 20 09/11/2024 9:27 AM EDT Oxygen Saturation 97% 09/11/2024 9:27 AM EDT Inhaled Oxygen Concentration - - Weight 62.3 kg (137 lb 6.4 oz) 09/11/2024 9:27 A M EDT Height 157.5 cm (5' 2 ) 09/11/2024 9:27 AM EDT Body Mass Index 25.13 09/11/2024 9:27 AM EDT Plan of Treatment Upcoming Encounters Date Type Department Care Team (Late st Contact Info) Description 11/24/2024 10:45 AM EDT Office Visit [facility] [address] [place] [address] Emy Askew MD [address] [place] [address] 03/19/2025 9:30 AM EST Office Visit [facility] OPTOMETRY [address] [place] [address] Rachel Collado, OD [address] [place] [address] Health Maintenance Due Date Last Done Comments CT Colonography 1960 FIT DNA/Cologuard 1960 FIT 1960 FOBT 1960 Sigmoidoscopy 1960 Diabetes: Foot Exam 1968 Dental Oral Exam 04/29/2022 10/26/2021, 10/2020, 04/06/2019, Additional history exists Dental Prophylaxis 01/18/2023 07/17/2022, 0 10/26/2021, 04/14/2021, Additional history exists Dental X-Ray: Full Mouth 08/20/2023 08/18/2020, 03/0 10/2020 Colonoscopy 05/08/2024 05/09/2023 Colorectal Cancer Screening 05/08/2024 Depression Monitoring 05/11/2024 11/12/2023, 024 Dental X-Ray: Bitewings 06/10/2024 06/10/19 24, 03/01/2023, 10/26/2021, Additional history exists SDOH Screening 10/31/2024 11/01/2023 COVID-19 Vaccine ( season) 2024 03/20/2023, 09/24/2022, 10/04/2021, Additional history exists Influenza Vaccine (#1) 2024 , 12/15/2020, 12/01/2019, Additional history exists Diabetes: Hemoglobin A1C 12/12/2024 025, 07/16/2024, 12/25/2023, Additional history exists Diabetes: Urine Protein Screening 12/24/2024 12/25/2023, 10/04/2022, 12/21/2020, Additional history exists Lipid Panel 12/24/2024 12/25/2023, 0203/2023, 10/04/2022, Additional history exists Alcohol/Substance Use Screening 01/12/2025 01/13/2024 Mammogram 03/17/2025 03/17/2024, 11/03, 07/28/2021, Additional history exists Tobacco Screening 09/11/2025 09/11/2024 Eye Exam 01/07/2026 01/08/2024, 1108/2023, 01/08/2024, Additional history exists DTaP/Tdap/Td Vaccines (3 - Td or Tdap) 11/16/2026 11/16/2016, 10/17/2011, 03/11/2006 HPV/Cotest 05/26/2028 05/27/2023 Pap Smear 05/26/2028 05/27/2023 [...] Name Priority Date/Time Associated Diagnosis Comments XR PELVIS 1-2 VIEWS Routine 10/06/2024 3 :02 PM EDT MR ABDOMEN W AND WO CONTRAST Routine 09/24/2024 2:04 AM EDT Renal cyst MAGNESIUM Routine 09/19/2024 8:28 AM EDT Renal cyst COMPREHENSIVE METABOLIC PANEL Routine 09/19/2024 8:28 AM EDT Renal cyst POCT GLYCATED HEMOGLOBIN, TOTAL Routine 09/11/2024 9:28 AM EDT Type 2 diabetes mellitus without complication, unspecified whether watermelon inspector insulin use (CMS/HCC) POCT GLUCOSE Routine 09/11/2024 9:28 AM EDT Type 2 diabetes mellitus without complication, unspecified whether watermelon inspector insulin use (CMS/HCC) CT ABDOMEN PELVIS W CONTRAST Routine 08/19/2024 11:[address] of the abdomen BI MAMMOGRAM SCREENING TOMOSYNTHESIS BILATERAL Routine 03/17/2024 1:00 PM EST LIPID PANEL, STANDARD Routine 12/25/2023 7:08 AM EDT Annual physical exam ALBUMIN, RANDOM URINE W/CREATININE Routine 12/25/2023 7:05 AM EDT Annual physical exam BITEWING - SINGLE RADIOGRAPHIC IMAGE Routine 06/10/2023 3:30 PM EDT Periodontal disease Fractured dental adventist with loss of material HPV MRNA E6/E7 [...] Relevant to Health Maintenance Results * XR Pelvis 1-2 Views (10/06/2024 3:02 PM EDT) Anatomical Region Laterality Modality Body, Pelvis Radiographic Karla ging 10/06/2024 3:02 PM EDT Narrative 10/06/2024 3:03 PM EDT [facility] [address] [place] [address] Drive [address] [place] [address] XRay Report Signed Patient: Jennifer Palmer MR#: [id number] 0 : 1960 Acct:[id number] Age/Sex: 64 / F ADM Date: 10/06/24 Loc: HO.HOSX Attending Dr: Amada Macias PA-C Ordering Physician: Amada Macias PA-C Date of Service: 10/06/24 Procedure(s): XR pelvis 1-2V Accession Number(s): [id number] cc: Amada Macias PA-C; Emy Askew MD CLINICAL HISTORY: M25.559 - Pain in unspecified hip 1 view pelvis Comparison: None provided Findings: No acute fracture or dislocation. Periarticular osteophyte formation at the bilateral hip joints. Soft tissues are unremarkable. IMPRESSION: 1. No acute findings. This document has been electronically signed by: David Adames MD on 10/06/2024 15:02:26 Dictated By: David Adames MD Signed By: <Electronically signed by David Adames MD in OV> 10/06/24 1503 DD/ 1502 TD/TT: 10/06/24 1502 Utility Agent: Procedure Note Donotuseinterpreter, Image - 10/06/2024 [facility] [address] [place] [address] [place] [address] XRay Report Signed Patient: Axel Palmer#: [id number] 0 : 9Acct:[id number] Age/Sex: 64 / FADM Date: 10/06/24 Loc: HO.SEFERINOX Attending Dr: Amada Macias PA-C Ordering Physician: Amada Macias PA-C Date of Service: 10/06/24 Procedure(s): XR pelvis 1-2V Accession Number(s): [id number] cc: Amada Macias PA-C; Emy Askew MD CLINICAL HISTORY: M25.559 - Pain in unspecified hip 1 view pelvis Comparison: None provided Findings: No acute fracture or dislocation. Periarticular osteophyte formation at the bilateral hip joints. Soft tissues are unremarkable. IMPRESSION: 1. No acute findings. This document has been electronically signed by: David Adames MD on 10/06/2024 15:02:26 Dictated By: David Adames MD Signed By: <Electronically signed by David Adames MD in OV> 10/06/24 1503 DD/ 1502 TD/TT: 10/06/24 1502 Utility Agent: us [facility] External Provider IMG XR PROCEDURES Edited Result - Final * MR Abdomen w/ and w/o Contrast (09/24/2024 2:04 AM EDT) Anatomical Region Laterality Modality Abdomen Magnetic Resonan ce 09/24/2024 2:04 AM EDT Narrative 09/24/2024 2:06 AM EDT [address] [address] Magnetic Resonance Report Signed Patient: Jennifer Palmer MR#: [id number] 0 : 1960 Acct:[id number] Age/Sex: 64 / F ADM Date: 09/23/24 Loc: HO.MRI Attending Dr: Emy Goldsmith MD Ordering Physician: Emy Askew MD Date of Service: 09/23/24 Procedure(s): MR abdomen wo/w con Accession Number(s): [id number] cc: Emy Askew MD CLINICAL HISTORY: rec MRI renal protocol to further evaluate for renal lesions MR abdomen with and without gadolinium Comparison: CT/SR - CT ABDOMEN PELVIS W IV CON - 08/18/24 13:37 EDT Findings: Bilateral simple renal cysts. No hydronephrosis. Cholelithiasis without acute inflammatory findings. Liver, pancreas, spleen, and adrenal glands are within normal limits. Visualized bowel is normal caliber. No ascites. IMPRESSION: Bilateral simple renal cysts. No acute findings. This document has been electronically signed by: Kapil Dent MD on 09/24/2024 02:04:21 Dictated By: Kapil Dent MD Signed By: <Electronically signed by Kapil Dent MD in OV> 09/24/24204 DD/ 3 TD/TT: 09/24/24203 Utility Agent: Procedure Note Donotuseinterpreter, Image - 09/24/[address] [address] Magnetic Resonance Report Signed Patient: Axel Palmer#: [id number] 0 : 9Acct:[id number] Age/Sex: 64 / FADM Date: 09/23/24 Loc: HO.MRI Attending Dr: Emy Goldsmith MD Ordering Physician: Emy Askew MD Date of Service: 09/23/24 Procedure(s): MR abdomen wo/w con Accession Number(s): [id number] cc: Emy Askew MD CLINICAL HISTORY: rec MRI renal protocol to further evaluate for renallesions MR abdomen with and without gadolinium Comparison: CT/SR - CT ABDOMEN PELVIS W IV CON - 08/18/24 13:37 EDT Findings: Bilateral simple renal cysts. No hydronephrosis. Cholelithiasis without acute inflammatory findings. Liver, pancreas, spleen, and adrenal glands are within normal limits. Visualized bowel is normal caliber. No ascites. IMPRESSION: Bilateral simple renal cysts. No acute findings. This document has been electronically signed by: Kapil Dent MD on 09/24/2024 02:04:21 Dictated By: Kapil Dent MD Signed By: <Electronically signed by Kapil Dent MD in OV> 09/24/24204 DD/ 3 TD/TT: 09/24/24203 Utility Agent: us Emy Goldsmith MD IMG MRI PROCEDURE S Edited Result - Final * Magnesium (09/19/2024 8:28 AM EDT) Magnesium 2.0 1.6 - 2.6 mg/dL [facility] Blood Venous blood specimen / Unknown 09/19/2024 8:28 AM EDT 09/19/2024 8:28 AM EDT us Emy Goldsmith MD LAB BLOOD ORDERAB LES Final Result [facility] [address] [place] [phone] * (ABNORMAL) Comprehensive Metabolic Panel (09/19/2024 8:28 AM EDT) Sodium 141 135 - 145 mmol/L [facility] Potassium 3.1(L) 3.3 - 5.1 mmol/L [facility] Chloride 108 96 - 108 mmol/L [facility] Carbon Dioxide 26 22 - 29 mmol/L [facility] Anion Gap 10(L) 12 - 20 [facility] Urea Nitrogen (BUN) 14 9 - 16 mg/dL [facility] Creatinine, Serum 0.78 0.5 - 1.4 mg/dL [facility] Estimated Glomerular Filt Rate >60 [facility] Comment:Chronic Kidney Disea se: Estimated GFR < 60 mL/min/1.73w3[place] Kidney Disease: Estimated GFR < 15 mL/min/1.73m2 Glucose 277(H) 60 - 115 mg/dL [facility] Calcium 9.0 8.4 - 10.2 mg/dL [facility] Bilirubin, Total 0.4 0.0 - 1.0 mg/dL [facility] [facility] Aspartate Amino Transferase 20 5 - 31 U/L [facility] Alanine Aminotransferase 17 0 - 31 U/L [facility] Total Protein 7.5 6.5 - 8.0 g/dL [facility] Albumin Level 4.1 3.5 - 5.0 g/dL [facility] Alkaline Phosphatase 141(H) 39 - 117 U/L [facility] Blood Venous blood specimen / Unknown 09/19/2024 8:28 AM EDT 09/19/2024 8:28 AM EDT us Emy Goldsmith MD LAB BLOOD ORDERAB LES Final Result [facility] [address] [place] [phone] [phone] * (ABNORMAL) POCT HGB A1C (09/11/2024 9:28 AM EDT) Hemoglobin A1C 8.3(A) 4.0 - 5.7 % QC Media Lot # [id number] Lot# Expiration Date ,[phone] Blood 09/11/2024 9:28 AM EDT Emy Goldsmith MD POINT OF CARE KALEN T ENTER/EDIT ORDERABLES Final Result * (ABNORMAL) POCT Glucose (09/11/2024 9:28 AM EDT) [facility] Glucose Blood, POC 325(A) 60 - 200 mg/dL QC Media Lot # [id number] Lot# Expiration Date Blood Capillary blood specimen / Unknown 09/11/2024 9:28 AM EDT Emy Goldsmith MD POINT OF CARE KALEN T ENTER/EDIT ORDERABLES Final Result * CT Abdomen Pelvis w/ Contrast (08/19/2024 11:56 AM EDT) Anatomical Region Laterality Modality Body, Pelvis, Abdomen Computed T omography 08/19/2024 11:5 6 AM EDT Narrative 08/19/2024 11:58 AM EDT [place] [address] [address] Scan Report Signed Patient: Jennifer Palemr MR#: [id number] 0 : 1960 Acct:[id number] Age/Sex: 63 / F ADM Date: 08/18/24 Loc: HO.CT Attending Dr: Emy Goldsmith MD Ordering Physician: Emy Askew MD Date of Service: 08/18/24 Procedure(s): CT abdomen pelvis w IV con Accession Number(s): [id number] cc: Emy Askew MD Report Number: [id number]: Total DLP = 400.00 mGy-cm CLINICAL HISTORY: -consider repeat CT abd w contrast for peripancreatic LND Exam: CT abdomen and pelvis with IV contrast Comparison: CT/REG/MT/SR - CT ABDOMEN WO/W IV CON - 04/16/23 09:46 EST Findings: Unremarkable lung bases. Cholelithiasis without acute inflammation, gallbladder is nearly contracted. Liver, spleen, pancreas, adrenal glands, ureters, bladder, reproductive organs are unremarkable. 1.3 cm mildly heterogeneous septated hypodense lesion right kidney upper pole, previously 1.1 cm. Stable 1 cm intrarenal hypodense lesion lower pole right kidney, denser than simple fluid. Left renal simple cyst and too small to characterize hypodensities of the right kidney. Unremarkable GI tract, normal appendix. Mild atherosclerotic disease. Nonaneurysmal aorta. No lymphadenopathy by CT criteria. Small itz hepatis and portacaval lymph nodes, triangular-shaped less than 1 cm in short axis. No ascites or pneumoperitoneum. Unremarkable abdominopelvic wall. Degenerative changes of the lumbar spine. Impression: 1. No lymphadenopathy. 2. Mildly enlarged complex cyst in the upper pole, stable complex cyst in the lower pole of the right kidney, recommend renal MRI or CT for further evaluation. 3. Cholelithiasis without acute inflammation. This document has been electronically signed by: Nina Mata MD on 08/19/2024 11:56:34 Dictated By: Nina Mata MD Signed By: <Electronically signed by Nina Mata MD in OV> 08/19/24 1157 DD/ 1156 TD/TT: 08/19/24 1156 Utility Agent: Procedure Note Donotuseinterpreter, Image - 08/19/[address] [place] [address] [address] Scan Report Signed Patient: Axel Palmer#: [id number] 0 : 9Acct:[id number] Age/Sex: 63 / FADM Date: 08/18/24 Loc: HO.CT Attending Dr: Emy Goldsmith MD Ordering Physician: Emy Askew MD Date of Service: 08/18/24 Procedure(s): CT abdomen pelvis w IV con Accession Number(s): [id number] cc: Emy Askew MD Report Number: [id number]: Total DLP = 400.00 mGy-cm CLINICAL HISTORY: -consider repeat CT abd w contrast for peripancreaticLND Exam: CT abdomen and pelvis with IV contrast Comparison: CT/REG/MT/SR - CT ABDOMEN WO/W IV CON - 04/16/23 09:46 EST Findings: Unremarkable lung bases. Cholelithiasis without acute inflammation, gallbladder is nearly contracted. Liver, spleen, pancreas, adrenal glands, ureters, bladder, reproductive organs are unremarkable. 1.3 cm mildly heterogeneous septated hypodense lesion right kidney upper pole, previously 1.1 cm. Stable 1 cm intrarenal hypodense lesion lower pole right kidney, denser than simple fluid. Left renal simple cyst and too small to characterize hypodensities of the right kidney. Unremarkable GI tract, normal appendix. Mild atherosclerotic disease. Nonaneurysmal aorta. No lymphadenopathy by CT criteria. Small itz hepatis and portacaval lymph nodes, triangular-shaped less than 1 cm in short axis. No ascites or pneumoperitoneum. Unremarkable abdominopelvic wall. Degenerative changes of the lumbar spine. Impression: 1. No lymphadenopathy. 2. Mildly enlarged complex cyst in the upper pole, stable complex cyst in the lower pole of the right kidney, recommend renal MRI or CT for further evaluation. 3. Cholelithiasis without acute inflammation. This document has been electronically signed by: Nina Mata MD on 08/19/2024 11:56:34 Dictated By: Nina Mata MD Signed By: <Electronically signed by Nina Mata MD in OV> 08/19/24 1157 DD/ 1156 TD/TT: 08/19/24 1156 Utility Agent: Emy Goldsmith MD IMG CT PROCEDURES Final Result * BI Mammogram Screening Tomosynthesis Bilateral (03/17/2024 1:00 PM EST) Anatomical Region Laterality Modality Breast Bilateral Mammography 03/17/2024 1:00 PM EST Narrative 03/28/2024 10:52 AM EST [facility] [address] [place] [address] [place] [address] Mammography Report Signed Patient: Jennifer Palmer MR#: [id number] 0 : 1960 Acct:[id number] Age/Sex: 63 / F ADM Date: 03/17/24 Loc: HO.MAMMO Attending Dr: Emy Goldsmith MD Ordering Physician: Emy Askew MD sults: 1Negative Date of Service: 03/17/24 Follow Up: 1 Year From Orig inal Mammogram Procedure(s): MM tomosynthesis screening BI Accession Number(s): [id number] cc: Emy Askew MD EXAMINATION: MM SCREENING [...] 03/28/24 1049 DD/ 1300 TD/TT: 03/17/24 1320 Utility Agent: Procedure Note Donotuseinterpreter, Image - 03/28/2024 [facility] [address] [place], [place] [address] Mammography Report Signed Patient: Axel Palmer#: [id number] 0 : 9Acct:[id number] Age/Sex: 63 / FADM Date: 03/17/24 Loc: DELON Attending Dr: Eym Goldsmith MD Ordering Physician: Emy Askew sults: 1Negative Date of Service: 03/17/24Follow Up: 1 Year From Orig inal Mammogram Procedure(s): MM tomosynthesis screening BI Accession Number(s): [id number] cc: Emy Askew MD EXAMINATION: MM SCREENING [...] 03/28/24 1049 DD/ 1300 TD/TT: 03/17/24 1320 Utility Agent: us Emy Goldsmith MD IMG BI PROCEDURES Final Result * (ABNORMAL) Lipid Panel, Standard (12/25/2023 7:08 AM EDT) Triglycerides 232(H) <150 mg/dL [facility] Comment:Desirable Triglyceri de: less than 150 mg/dLBorderline High Triglyceride 150-199 mg/dLHigh Triglyceride: 200-499 mg/dLVery High Triglyceride: greater than or equal to 5OO mg/dL Cholesterol 154 <200 mg/dL [facility] Comment:Desirable Cholestero l: less than 200 mg/dLBorderline High Cholesterol: 200-239 mg/dLHigh Cholesterol: greater than 239 mg/dL LDL Cholesterol Calculated 64 <100 mg/dL [facility] Comment:Desirable LDL: less than 100 mg/dLNear Optimal/Above Optimal LDL: 110- 129 mg/dLBorderline High LDL: 130-159 mg/dLHigh LDL: 160-189 mg/dLVery High LDL: greater than or equal to 190 mg/dL HDL Cholesterol 44 >40 mg/dL [facility] Comment:Desirable HDL: great er than 40 mg/dL Note: This HDL assay may give artificially low results in patients with liver disease. Blood Venous blood specimen / Unknown 12/25/2023 7:08 AM EDT 12/25/2023 7:09 AM EDT us Emy Goldsmith MD LAB BLOOD ORDERAB LES Final Result Performing Organization Address [facility] de Phone Number [facility] [address] [place] [phone] * (ABNORMAL) Albumin, Random Urine W/Creatinine (12/25/2023 7:05 AM EDT) Creatinine, Urine 50.21 mg/dL [facility] Microalbumin Urine 78.0 mg/L [facility] Microalbum Creatinine Ratio Ur 155.3(H) <30 ug/mg cr [facility] Comment:Albumin/Creatinine R atio Reference Ranges: Normal: < 30 ug/mg creatinine Microalbuminuria: 30 - 300 ug/mg creatinineClinical Albuminuria: > 300 ug/mg creatinine Urine (Urine, Random) 12/25/2023 7:05 AM EDT 12/25/2023 7:49 AM EDT us Emy Goldsmith MD LAB URINE ORDERAB LES Final Result Performing Organization Address [facility] Co de Phone Number [facility] [address] [place] [phone] * HPV mRNA E6/E7 w/Reflex to HPV Genotypes 16, 18/45 (05/27/2023 10:50 AM EDT) HPV nRNA E6/E7 Not Detected Not Detected [facility] Comment:Methodology: Transcr iption-Mediated AmplificationThis assay detects E6/E7 viral messenger RNA (mRNA) from 14high-risk HPV types (16,18,31,33,35,39,45,51,52,56,58,59,66,68).Cervical sources are required for HPV testing.If a vaginal source from a patient who has had atotal hysterectomy with removal of cervix wassubmitted, please contact the testing laboratoryfor alternative testing options.For additional information, please refer [email or web address].[email or web address]/KDL803h4(This link if provided for information/educational purposes only.)THIS TEST WAS PERFORMED AT:[facility] [place] [phone] CAMARENA MD HPV mRNA E6/E7 TNP [facility] HPV 16 RNA [facility] HPV 18/45 RNA [facility] 05/27/2023 10:5 0 AM EDT 05/28/2023 11:50 AM EDT us Alden Cai [facility] CYTOLOGY ORDERABLES F inal Result [facility] [address] [place] [phone] * Pap Smear (05/27/2023 10:50 AM EDT) Swab Cervix uteri structure / Unknown 05/27/2023 10:50 AM EDT 05/28/2023 11:50 AM EDT Narrative [facility] - 06/09/2023 5:49 PM EDT ----- ------- Name: Jennifer Palmer Age/Sex: 62/F : 1960 Unit#: [id number] Attend Dr: ALDEN CAI CNM Re05/27/23 Status: DEP REF Location: [facility] Disch: ----- ------- SPEC : [id number] RECD: 05/28/23-1150 STATUS: CORRIE VELEZ NUM: [id number] PRANAY: 05/27/23-[address]: ALDEN CAI ENTERED: 05/28/23-1305 SP TYPE: Pap Smr OT DR: ORDERED: Pap Smear Interpretation Satisfactory for evaluation. Negative for intraepithelial lesion or malignancy. Atrophic. HPV mRNA E6/E7: NOT DETECTED This assay detects E6/E7 viral messenger RNA (mRNA) from 14 high-risk HPV types (16, 18, 31, 33, 35, 39, 45, 51, 52, 56, 58, 59, 66, 68) HPV testing performed by [employer], [place], [place]. See reference laboratory portion of the EMR for entire report. Clinical Information LMP: Postmenopausal Previous PAP test: Unknown date/findings Material Received ThinPrep-Vaginal/Cervical ----- ------- Signed (signature on file) Esther Gutierres 06/09/23 0581 ----- ------- END OF REPORT Alden Cai CNM LAB CYTOLOGY ORDERABLES F inal Result Performing Organization Address [facility] Co de Phone Number [facility] [address] [place] [phone] * Colonoscopy (05/09/2023 6:56 PM EST) Historical Provider HEALTH MAINTENANCE Final Result * Hepatitis C Antibody Reflex (10/04/2022 9:42 AM EDT) Hepatitis C Antibody Nonreactive Nonreactive [facility] Comment:Antibodies to HCV no t detected; does not exclude early acuteHCV infection. 10/04/2022 9:42 AM EDT 10/04/2022 9:43 AM EDT Emy Goldsmith MD LAB BLOOD ORDERAB LES Final Result Performing Organization Address [facility] Co de Phone Number [facility] [address] [place] [phone] from Last 3 Months or Most Recently Relevant to Health Maintenance Insurance [facility] LONG-TERM OPTIONS (O D-SNP) [place] ST[place] ADULT Care Teams Behavioral Services Tech Relationship Specialty Start Date End Date Emy Askew MD [address] [place] [phone] PCP - General Internal Medicine 07/25/22
--- OUTSIDE RECORDS SUMMARY | 2024-11-12 10:38 | XMS_ITS | Encounter Summary ---
Author Organization [employer] Address [address] [place] [address] [place] [address] Care Team Providers Care Fire Sprinkler Fitter Name Role Phone Emy Askew MD Primary Care Pro vider Reason for Visit * Reason Comments Med Refill Encounter Details Date Type Department Care Team ([facility] st Contact Info) Description 02/09/2023 Refill [facility] [address] [place] [address] Emy Askew MD [address] [place] [address] Social History Tobacco Use Types Packs/Day Years [...] Description 11/24/2024 10:45 AM EDT Office Visit [facility] [address] [place] [address] Emy Askew MD [address] [place] [address] 03/19/2025 9:30 AM EST Office Visit [facility] [address] [place] [address] Tobias, Rachel, OD [address] [place] [address] documented as of this encounter Visit Diagnoses Not on filedocumented in this encounter Additional Health Concerns Assessment Noted Time PHQ-9 Depression Total Score: 16 023 10:16 AM EDT documented as of this encounter Care Teams Fire Sprinkler Fitter Relationship Specialty Start Date End Date Emy Askew MD [address] [place] [phone] PCP - General Internal Medicine 07/25/22 documented as of this encounter
--- OUTSIDE RECORDS SUMMARY | 2024-11-12 10:38 | XMS_ITS | Clinical Summary ---
Author Organization [facility] Address [address] [place] [address] Phone Care Team Providers Care Guide Dog Trainer Name Role Phone Berkley Bird MD Primary [...] 1968 Diabetes: Annual Retina Eye Exam 1968 Colorectal Cancer Screening: Colonoscopy 01/22/2024 Falls Risk Assessment 01/22/2024 Hepatitis C Screening 01/22/2024 Medicare Annual Wellness Visit 01/22/2024 Osteoporosis Screening (Bone Density Screening) 01/22/2024 Social Influencers of Health Screening 01/22/2024 Depression Screening 03/04/2024 Diabetes: Annual Urine Albumin-Creatinine Ratio (uACR) 04/06/2024 Diabetes: Blood Sugar Control Test (HGBA1C) 06/24/2024 12/25/2023 COVID-19 Vaccine ( season) 2024 03/20/2023, 09/24/2022, [...] METHOD 04/06/2024 6:42 PM [facility] Potassium 3.5 3.5 - [...] 04/06/2024 6:42 PM [facility] Total Bilirubin 0.3 0.0 - 1.4 mg/dL LAB CHEMISTRY METHOD 04/06/2024 6:42 PM [facility] Blood Venous blood specimen / Unknown Venipuncture / Unknown 04/06/2024 2:00 PM EST 04/06/2024 2:00 PM EST us Magen Velasco DPM LAB BLOOD ORDERABLES Final Result [facility] [address] [place] [address], [place] [phone] from Last 3 Months or Most Recently Relevant to Health Maintenance Insurance [facility] MEDICARE Member Subscriber Plan / Payer (Ef fective 2023-Present) Name:Jennifer Payton Relation to Subscriber:Self Name:Jennifer Palmer Payer ID:[id number] Group ID:[id number] Type:Not on file Address: [place] [address] [place] [address] Care Teams Guide Dog Trainer Relationship Specialty Start Date End Date Berkley Bird MD [address] [address] PCP - General Internal Medicine 02/20/24
--- OUTSIDE RECORDS SUMMARY | 2024-11-12 10:38 | XMS_ITS | Encounter Summary ---
Author Organization [employer] Address [address] [place] [address] Care Team Providers Care Relocation Counselor Name Role Phone Cyn Bosch MD Primary Care Provider Michelle msedith [facility] Primary Care Provider [phone] Emy Askew MD Primary Care Pro vider Encounter Details Date Type Department Care Team (Latest Contact Info) Description 05/09/2020 Abstract [facility] CONVERSIONS Dental, Provider, DDS Social History [...] Description 11/24/2024 10:45 AM EDT Office Visit [facility] [address] [place] [address] Emy Askew MD [address] [place] [address] 03/19/2025 9:30 AM EST Office Visit [facility] [address] [place] [address] Rachel Collado, OD [address] [place] [address] documented as of this encounter Visit Diagnoses Not on filedocumented in this encounter Care Teams Relocation Counselor Relationship Specialty Start Date End Date Cyn Bosch MD PCP - General Family Medicine 08/20/19 01/21/22 BondKenya FNP [address] [place] [phone] PCP - General Family Medicine 01/22/22 07/24/22 Emy Askew MD [address] [place] [phone] PCP - General Internal Medicine 07/25/22 documented as of this encounter
--- OUTSIDE RECORDS SUMMARY | 2024-11-12 10:38 | XMS_ITS | Encounter Summary ---
Author Organization [employer] Address [address] [place] [address] 7 [place] [address] Care Team Providers Care Construction Project Engineer Name Role Phone Kenya Sol PILOT CONTROL OPERATOR Primary Care Provider [phone] Emy Askew MD Primary Care Pro vider Encounter Details Date Type Department Care Team (Late Contact Info) Description 03/26/2022 Orders Only [facility] [address] [place], [place] [phone] Lizett Cannon LPN Social History Tobacco Use [...] Description 11/24/2024 10:45 AM EDT Office Visit [facility] [address] [place], [place] [phone] Emy Askew MD [address] [place], [place] [phone] 03/19/2025 9:30 AM EST Office Visit [facility] [address] [place] [phone] Rachel Collado, OD [address] [place], [place] [phone] documented as of this encounter Visit Diagnoses Not on filedocumented in this encounter Care Teams Construction Project Engineer Relationship Specialty Start Date End Date Kenya Sol FNP [address] [place], [place] [phone] PCP - General Family Medicine 01/22/22 07/24/22 Emy Askew MD [address] [place], [place] [phone] PCP - General Internal Medicine 07/25/22 documented as of this encounter
--- OUTSIDE RECORDS SUMMARY | 2024-11-12 10:38 | XMS_ITS | Encounter Summary ---
Author Organization [employer] Address [address] [facility] [address]t [place] [address] Care Team Providers Care Jigman Name Role Phone Emy Askew MD Primary Care Pro vider Encounter Details Date Type Department Care Team ([facility] st Contact Info) Description 02/23/2024 Orders Only [facility] [address] [place] [address] Provider, MD Waylon Social History Tobacco Use [...] Description 11/24/2024 10:45 AM EDT Office Visit [facility] [address] [place] [address] Emy Askew MD [address] [place] [address] 03/19/2025 9:30 AM EST Office Visit [facility] [address] [place] [address] Tobias, Rachel, OD [address] [place] [address] documented as of this encounter Procedures Procedure [...] documented as of this encounter Care Teams Jigman Relationship Specialty Start Date End Date Emy Askew MD [address] [place] [phone] PCP - General Internal Medicine 07/25/22 documented as of this encounter
--- OUTSIDE RECORDS SUMMARY | 2024-11-12 10:38 | XMS_ITS | Encounter Summary ---
Author Organization [facility] Address [address] [facility] [address] [place] [address] Phone Care Team Providers Care Television Maintenance Man Name Role Phone Unknown, Unknown Primary Care Provider Mark Segura MD Primary Care Provider Encounter Details Date Type Department Care Team (Latest Contact Info) Description 05/26/2018 Ancillary Orders [facility] [address] [place] [address] [place] [address] Isidro Watkins, DO [address] [place] [address] Other chest pain Social History Tobacco Use Types Packs/Day Years Used Date Smoking Tobacco: Never Assessed Comments Unknown Sex and Gender Information Value Date Recorded Sex Assigned at Not on file Legal Sex Female 10:03 AM EDT Gender Identity Not on file Sexual Orientation Not on file documented as of this encounter Plan of Treatment Not on file documented as of this encounter Results * Holter Monitor 24 Hours (05/26/2018 11:57 AM EDT) Anatomical Region Laterality Modality Heart Other Narrative 05/26/2018 12:15 PM EDT 24-hour monitor: Baseline rhythm is sinus with a minimum heart rate 59, maximum 121, average 75 bpm. There was one PAC PVC and there were 3 PACs during the 24 hours. The patient did not return the diary. There was a single patient event marker during sinus rhythm at 80 bpm. Impression: Normal 24-hour monitor. No diary submitted. Patient event marker during sinus rhythm. Procedure Note Darshan Taveras MD - 05/26/2018 24-hour monitor: Baseline rhythm is sinus with a minimum heart rate 59,maximum 121, average 75 bpm. There was one PAC PVC and there were 3 PACsduring the 24 hours. The patient did not return the diary. There was asingle patient event marker during sinus rhythm at 80 bpm. Impression: Normal 24-hour monitor. No diary submitted. Patient eventmarker during sinus rhythm. Isidro Watkins DO [facility] CARDIAC SERVICES ORDERABLE S Final Result documented in this encounter Visit Diagnoses Diagnosis Other chest pain Other chest pain documented in this encounter Care Teams Television Maintenance Man Relationship Specialty Start Date End Date Unknown, Unknown, PCP - General 05/15/18 10/14/19 Mark Foote MD [address] [place] [phone] PCP - General Pediatrics 10/15/19 documented as of this encounter Additional Source Comments The information contained in this document represents components of the legal health record. It is not the complete legal health record.[facility]
--- OUTSIDE RECORDS SUMMARY | 2024-11-12 10:38 | XMS_ITS | Clinical Summary ---
Author Organization [facility] Address [address] [facility] [address] [place] [address] Phone Care Team Providers Care Filbert Grower Name Role Phone Mark Foote MD Primary [...] or PCV21) 12/18/2022 12/18/2017, 03/11/2006 OSTEOPOROSIS SCREENING INITIAL (ONE-TIME) 08/22/2023 INFLUENZA VACCINE (#1) 2024 , 01/15/2019, 12/10/2017, Additional history exists COVID-19 VACCINE (2024- season) 2024 07/27/2020, 06/29/2020 Adult Td,Tdap Booster 11/16/2026 11/16/2016 [...] topic Medical Devices Not on file [place] [address] [place] [address] C3 ACO [facility] C3 ACO C3 ACO C3 ACO C3 ACO Care Teams Filbert Grower Relationship Specialty Start Date End Date Mark Foote MD [address] [place] [phone] PCP - General Pediatrics 10/15/19 Additional Source Comments The information contained in this document represents components of the legal health record. It is not the complete legal health record.[facility]
--- OUTSIDE RECORDS SUMMARY | 2024-11-12 10:38 | XMS_ITS | Encounter Summary ---
Author Organization [employer] Address [address] [place] [address] 7 [place] [address] Care Team Providers Care Electrician'S Assistant Name Role Phone [facility] Primary Care Provider [phone] Emy Askew MD Primary Care Pro vider Reason for Visit * Reason Onset Date Comments VISION 03/13/2022 Encounter Details Date Type Department Care Team ([facility] st Contact Info) Description 03/13/2022 Telephone [facility] MEDICINE [address] [place] [address] [facility] [address] [place] [address] VISION Social History Tobacco Use Types Packs/Day [...] center regarding an eye exam. 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
--- OUTSIDE RECORDS SUMMARY | 2024-11-12 10:38 | XMS_ITS | Encounter Summary ---
Author Organization [employer] Address [address] [place] [address] 7t [place] [address] Care Team Providers Care Die Try Out Worker Name Role Phone [facility] Primary Care Provider [phone] Emy Askew MD Primary Care Pro vider Reason for Visit * Reason Onset Date Comments Appointment Request 06/07/2022 Encounter Details Date Type Department Care Team ([facility] st Contact Info) Description 06/07/2022 Telephone [facility] MEDICINE [address] [place] [address] [facility] 230 [place] [address] Appointment Request Social History Tobacco Use Types [...] with new provider. Please contact pt at [phone] documented in this encounter Plan of Treatment Upcoming Encounters Date Type Department Care Team (Late st Contact Info) Description 11/24/2024 10:45 AM EDT Office Visit [facility] MEDICINE [address] [place] [address] Emy Askew MD 230 [place] [address] 03/19/2025 9:30 AM EST Office Visit [facility] OPTOMETRY [address] [place] [address] Rachel Collado, OD [address] [place] [address] documented as of this encounter Visit Diagnoses Not on filedocumented in this encounter Care Teams Die Try Out Worker Relationship Specialty Start Date End Date [place], RHIA [address] [place] [address] PCP - General Family Medicine 01/22/22 07/24/22 Emy Askew MD [address] [place] [address] PCP - General Internal Medicine 07/25/22 documented as of this encounter
--- OUTSIDE RECORDS SUMMARY | 2024-11-12 10:38 | XMS_ITS | Encounter Summary ---
Author Organization [employer] Address [address] [place] [address] [place] [address] Care Team Providers Care Ocean Clam Boat Captain Name Role Phone Emy Askew MD Primary Care Pro vider Reason for Visit * Reason Comments Med Refill Encounter Details Date Type Department Care Team ([facility] Contact Info) Description 02/14/2024 Refill [facility] MEDICINE [address] [place] [address] Emy Askew MD [address] [place] [address] Social History Tobacco Use Types Packs/Day Years [...] Description 11/24/2024 10:45 AM EDT Office Visit [facility] MEDICINE [address] [place] [address] Emy Askew MD [address] [place] [address] 03/19/2025 9:30 AM EST Office Visit [facility] OPTOMETRY [address] [place] [address] Tobias, Rachel, OD 230 [place] [address] documented as of this encounter Visit Diagnoses Not on filedocumented in this encounter Additional Health Concerns Assessment Noted Time PHQ-9 Depression Total Score: 10 024 2:37 PM EDT documented as of this encounter Care Teams Ocean Clam Boat Captain Relationship Specialty Start Date End Date Emy Askew MD [address] [place] [address] PCP - General Internal Medicine 07/25/22 documented as of this encounter
--- OUTSIDE RECORDS SUMMARY | 2024-11-12 10:38 | XMS_ITS | Encounter Summary ---
Author Organization [email or web address] Address [address] [place] [address] 7 [place] [address] Care Team Providers Care Injection Molding Machine Setter Name Role Phone [facility] Primary Care Provider [phone] Emy Askew MD Primary Care Pro vider Reason for Visit * Reason Onset Date Comments Med Refill 05/11/2022 Encounter Details Date Type Department Care Team (Late st Contact Info) Description 05/11/2022 Telephone [facility] MEDICINE [address] [place] [address] [facility] [address] [place] [address] Med Refill Social History Tobacco Use Types [...] pharmacy today. * Telephone Encounter - [facility] - 05/11/2022 10:22 AM EST Tc from pt requesting a Blood Glucose Monitoring Suppl (FreeStyle Lite) w/Device kit Pt claims that she has lost the device. Please sent to [facility] - [place], [place] - [address] [place] [address] documented in this encounter Plan of Treatment Upcoming Encounters Date Type Department Care Team ([facility] st Contact Info) Description 11/24/2024 10:45 AM EDT Office Visit [facility] MEDICINE [address] [place] [address] Emy Askew MD 230 [place] [address] 03/19/2025 9:30 AM EST Office Visit [facility] OPTOMETRY [address] [place] [address] Tobias, Rachel, OD [address] [place] [address] documented as of this encounter Visit Diagnoses Not on filedocumented in this encounter Care Teams Injection Molding Machine Setter Relationship Specialty Start Date End Date [place] FNP [address] [place] [address] PCP - General Family Medicine 01/22/22 07/24/22 Emy Askew MD [address] [place] [address] PCP - General Internal Medicine 07/25/22 documented as of this encounter
== END 2024-11-12 10:04 | disposition home or self-care (01) ==
LOC: HO.HOS 09:13
PROVIDERS: PCP Student in an Organized Health Care Education/Training Program; Visit Provider Orthopaedic Surgery
DX: M17.0 Bilateral primary osteoarthritis of knee (principal)
CPT/HCPCS: 99213

== ENCOUNTER → 2024-11-12 09:12 | Outpatient (BNVA) | payer OTHER, SELFPAY | PROVIDERS: PCP Student in an Organized Health Care Education/Training Program; Visit Provider Orthopaedic Surgery | DX: M17.0 Bilateral primary osteoarthritis of knee (principal) | CPT/HCPCS: 99212 ==

== ENCOUNTER 2024-11-12 16:52 | Emergency (ER) | payer OTHER, SELFPAY ==
--- NOTE | ~2024-11-12 | XR_ITS ---
CLINICAL HISTORY: chest pain 2 view chest x-ray Comparison: CR/TX/SR - XR CHEST 2 VIEWS - 10/24/22 13:36 EDT Findings: Mild left lower lobe atelectasis. No significant pleural effusion or pneumothorax. Similar prominent/enlarged cardiac silhouette. No acute fracture. IMPRESSION: Mild left lower lobe atelectasis. This document has been electronically signed by: Gera Mcgrath MD on 11/12/2024 18:08:02
--- NOTE | 2024-11-12 16:53 | ECG_ITS ---
Test Reason : CP Blood Pressure : */* mmHG Vent. Rate : 87 BPM Atrial Rate : 87 BPM P-R Int : 140 ms QRS Dur : 90 ms QT Int : 362 ms P-R-T Axes : 14 -30 33 degrees QTcB Int : 435 ms Normal sinus rhythm Left axis deviation Moderate voltage criteria for LVH, may be normal variant ( R in aVL , Barco product ) Possible Anterior infarct , age undetermined Abnormal ECG When compared with ECG of 20-Jun-2024 23:56, Non-specific change in ST segment in Lateral leads T wave inversion less evident in Lateral leads Referred By: Doris Ritter Electronically Signed By: JANES JEFFREY MD
[2024-11-12 17:18] VITALS: BP 121/79; PULSE 83; RESP 16; TEMP 36.6; O2SAT 99; BMI 24.7
--- NOTE | 2024-11-12 17:20 | ED.CHESTPAIN ---
HPI - Chest Pain General Chief Complaint: Chest Pain Stated Complaint: cp Time Seen by Provider: 11/12/24 21:38 Source: patient, RN notes reviewed and old records reviewed Mode of arrival: ambulatory Limitations: no limitations History of Present Illness ED Provider: Mayda Saucedo PA-C HPI narrative: 64-year-old female with history of SOY, GERD and COPD presenting to the emergency department today for evaluation of left-sided chest pain that has been constant for the last 5 hours. It happened approximately 30 minutes after eating she denies any globus sensation. She reports not taking anything for her symptoms it is not worse with exertion or would positional changes it does not wax and wane in any way it does not feel crush like. She has had symptoms like this before in the past and they go on away on her own. She denies any dizziness reports a mild headache but not the worst she has ever had. No nausea or vomiting no diarrhea no shortness of breath and no abdominal discomfort no backache. She denies any fever infectious symptoms. No prior WI. no falls no trauma. No orthopnea, no dyspnea. No sore throat or nasal congestion. Pain improving. She has not ate since that time. She had coffee tea bread and cheese. No radiation not positional or exertional no falls no trauma. Onset: after eating Related Data Home Medications ?Medication ?Instructions ?Recorded ?Confirmed clonidine HCl 0.1 mg tablet 0.1 mg PO BID 12/08/19 09/21/24 diltiazem HCl 360 mg capsule,24 360 mg PO DAILY 12/08/19 09/21/24 hr,extended release furosemide 20 mg tablet 20 mg PO DAILY 12/08/19 09/21/24 aspirin 81 mg tablet,delayed 81 mg PO DAILY 05/12/20 09/21/24 release docusate sodium 100 mg capsule 100 mg PO DAILY 05/12/20 09/21/24 (DOK) clonazepam 0.5 mg tablet 0.5 mg PO DAILY PRN Anxiety 10/29/22 09/21/24 leflunomide 20 mg tablet 20 mg PO DAILY 10/29/22 09/21/24 loratadine 10 mg tablet 10 mg PO DAILY PRN allergies 10/29/22 09/21/24 melatonin 5 mg tablet 10 mg PO BEDTIME PRN Insomnia 10/29/22 09/21/24 sennosides 8.6 mg tablet (senna) 17.2 mg PO DAILY PRN constipation 10/29/22 09/21/24 atorvastatin 20 mg tablet 20 mg PO BEDTIME 04/30/23 09/21/24 calcium carbonate 600 mg PO QAM 04/30/23 09/21/24 carvedilol 25 mg tablet 25 mg PO BID 04/30/23 09/21/24 cevimeline 30 mg capsule 1 cap PO QAM 04/30/23 09/21/24 duloxetine 60 mg capsule,delayed 60 mg PO BEDTIME 04/30/23 09/21/24 release folic acid 1 mg tablet 1 mg PO DAILY 04/30/23 09/21/24 gabapentin 300 mg capsule 300 mg PO BID 04/30/23 09/21/24 losartan 100 mg tablet 100 mg PO DAILY 02/10/24 09/21/24 topiramate 25 mg tablet 25 mg PO BEDTIME 09/21/24 09/21/24 Previous Rx's ?Medication ?Instructions ?Recorded blood glucose control high and low #1 ea 03/28/20 solution (FreeStyle Control solution) 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 meter (FreeStyle #1 ea 09/09/20 Lite Meter kit) blood sugar diagnostic (FreeStyle #150 ea 02/10/21 Lite Strips) lancets 33 gauge (TRUEplus Lancets) #120 ea 06/20/21 naproxen 500 mg tablet 500 mg PO BID PRN pain #14 tabs 07/12/21 cholecalciferol (vitamin D3) 50 50 mcg PO DAILY #90 caps 12/12/21 mcg (2,000 unit) capsule hydrocortisone 2.5 % topical cream 1 appl SD BEDTIME PRN hemorrhoids 01/15/23 with perineal applicator #30 grams (Proctosol HC) semaglutide 2 mg/dose (8 mg/3 mL) 2 mg (0.75 mL) subcut QWEEK #3 mL 06/16/24 subcutaneous pen injector (Ozempic) ondansetron 4 mg disintegrating 4 mg PO Q8H PRN nausea and 06/21/24 tablet vomiting #20 tabs 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 sensor (FreeStyle #6 ea 09/21/24 Anthony 3 Plus Sensor device) dapagliflozin propanediol 10 mg 10 mg PO DAILY #30 tabs 09/21/24 tablet (Farxiga) insulin glargine 100 unit/mL (3 10 unit (0.1 mL) subcut QPM #3 mL 09/21/24 mL) subcutaneous pen (Lantus Solostar U-100 Insulin) pen needle, diabetic 31 gauge x #100 ea 09/21/24 3/16 (Comfort EZ Pen [place]) Allergies Allergy/AdvReac Type Severity Reaction Status Date / Time codeine (Codeine) Allergy Mild BURNING IN Verified 11/12/24 17:19 CHEST, chest pain sulfamethoxazole (From Allergy Mild ITCH,RASH Verified 11/12/24 17:19 Bactrim) Review of Systems Review of Systems: Yes all other systems are reviewed and are negative [facility] Past Medical History Attestation statement: The following information was validated with the patient. Source: old records reviewed and nursing notes reviewed Medical History Greater trochanteric bursitis of left hip Hyperparathyroidism DM2 (diabetes mellitus, type 2) Vitamin D deficiency 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 rheumatoid arthritis 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 SOY (obstructive sleep apnea) COPD (chronic obstructive pulmonary disease) Sicca syndrome Constipation Alopecia Sjogrens syndrome Osteoarthritis Rheumatoid arthritis Fibromyalgia Back pain Difficulty swallowing GERD (gastroesophageal reflux disease) Depression Asthma Elevated cholesterol HTN (hypertension) Surgical History History of laryngoscopy Hx of hemorrhoidectomy History of bladder suspension procedure Hx of dilation and curettage Hx of tubal ligation History of repair of left rotator cuff Hx of colonoscopy History of esophagogastroduodenoscopy (EGD) Family History Family History Father Cancer Mother Heart disease Diabetes Social History Social History Household Members: Children and Other Household Members Other:: daughter, grandkids Are you a primary acute care assistant to a significant other at home: No Do you presently have visiting nurse or other home services: No Alcohol intake: never Patient Tobacco Use Status: Never used Tobacco e-Cigarette/Vaping Use: Never Used Second Hand Smoke Exposure: No Advance Directives: No Advance Directives Information Provided: Yes 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al status: disabled 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 No septic or ill-appearing. Vitals reviewed normal, PMH/Social and Surgical hx reviewed including allergies and current medications. - reviewed for prior visits here Head: Normocephalic, no obvious trauma or skin lesions noted. Eyes: EOMI ENMT: moist oral mucosa Neck: trachea midline, no lymphadenopathy uvula is midline Cardiovascular: peripheral perfusion normal, Regular heart rate, regular rhythm Respiratory: no respiratory distress, lungs clear to auscultation bilaterally no use of accessory muscles Abdomen: nondistended, soft nontender Extremities: warm and moving without difficulty Psych: Cooperative Neuro: Alert and oriented. Vital Signs: Vital Signs: Last Vital Signs Temp 97.7 F 11/12/24 22:27 Pulse 89 11/12/24 22:27 Resp 16 11/12/24 22:27 BP 154/94 H 11/12/24 22:27 Pulse Ox 95 11/12/24 22:27 O2 Del Method Room Air 11/12/24 22:27 BMI result Body Mass Index 24.7 Course Course Course Narrative: This is a Rapid Medical Examination (RME) performed by Katja Ritter PA-C in triage. Full HPI, ROS, assessment and treatment plan per primary provider in the Main ED. Hx: 64 yo F here with intermittent chest pain. no radiation. no sob, fever, chills, cough. Plan: labs, ekg, cxr Medications Administered Discontinued Medications Generic Name Dose Route Start Last Admin Trade Name Freq PRN Reason Stop Dose Admin Acetaminophen 650 mg 11/12/24 21:43 11/12/24 21:49 Acetaminophen Oral Liquid 650 Mg/20.3 Ml Solution PO 11/12/24 21:44 650 mg ONCE ONE Administration Al Hydroxide/Mg Hydroxide 30 ml 11/12/24 21:43 11/12/24 21:49 Magnesium Hydrox/Alum Hydrox 30 Ml Oral.Susp PO 11/12/24 21:44 30 ml ONCE ONE Administration Medical Decision Making Medical Decision Making [facility] Narrative: 64-year-old female presented to the emergency department with chest pain. She had a rapid medical exam. She had EKG chest x-ray and cardiac basic labs done. VSS stable well-appearing no infectious symptoms. Chest pain in person with hx of GERD. EKG and CXR normal.? WI: not likely no STEMI on EKG, trop negative, onset 5 hours ago PE: PERC score is 1 (age), no pleuritic, not tachycardic or hypoxic, no hx of VTE PNA: no infectious sxs, CXR is clear PTX: no hypoxic or tachycardic, not pleuritic, CXR is normal pericarditis: no diffuse ST elevations, no friction rub on exam aortic dissection: BP normal, pulses equal and symmetric, no widened mediastinum on CXR mass effect: no acute findings on ekg Musculoskeletal: potential, but patient denies suspicion. nontender chest wall not consistent with costochondritis either GERD: potential food association, hx of gerd , improving without intervention, but gave maalox and tylenol Anxiety: possible has no hx of this and panic attacks No life-threatening etiology identified. She is stable with benign reassuring exam, will go to ED if worse. Patient agrees with plan. d/c to home. Differential Diagnosis Differential Diagnoses: The differential diagnosis associated with the presentation includes See MDM above Admission/Observation Consideration of admission/observation: Escalation of care including admission/observation considered Patient would have been admitted to the hospital had her work up had any findings where hospital admission was appropriate and her clinical presentation warranted hospital admission. Lab Data [facility] Lab Attestation statement: I reviewed the patient's lab results. No leukocytosis no metabolic dysfunction troponins negative 11/12/24 17:30 11/12/24 17:30 Labs: Lab Results 11/12/24 Range/Units 17:30 WBC 6.8 (4.8-10.8) X10*3/uL RBC 4.56 (4.20-5.50) X10*6/uL Hgb 13.6 (12.0-16.0) g/dl Hct 40.1 (37.0-47.0) % MCV 87.9 (80.0-98.0) fL MCH 29.8 (27.0-33.0) pg MCHC 33.9 (31.0-35.0) g/dl RDW 13.2 (11.0-16.0) % Plt Count 249 (160-400) X10*3/uL MPV 9.6 (9.4-12.3) fL Immature Gran % (Auto) 0.0 (0.0-0.4) % Neut % (Auto) 44.7 L (45-73) % Lymph % (Auto) 37.1 (20-40) % [place] % (Auto) 12.9 H (2-11) % Eos % (Auto) 4.7 H (0-4) % Baso % (Auto) 0.6 (0-2) % Lymph # (Auto) 2.5 (1.2-4.9) X10*3/uL [place] # (Auto) 0.9 (0.1-1.2) X10*3/uL Eos # (Auto) 0.3 (0.0-0.4) X10*3/uL Baso # (Auto) 0.0 (0.0-0.2) X10*3/uL Abs Immat Gran (auto) 0.00 (0.00-0.03) X10*3/uL Absolute Neuts (auto) 3.1 (2.0-8.3) x10*3/uL Absolute Nucleated RBC 0.000 (0.0-0.012) X10*3/uL Nucleated RBC % (auto) 0.0 (0.0-0.2) /100WBC Sodium 141 (135-145) mmol/L Potassium 3.5 (3.3-5.1) mmol/L Chloride 105 (96-108) mmol/L Carbon Dioxide 28 (22-29) mmol/L Anion Gap 12 (12-20) BUN 21 H (9-16) mg/dL Creatinine 0.88 (0.5-1.4) mg/dL Estim Creat Clear Calc 54.1 Estimated GFR > 60 Random Glucose 166 H (60-115) mg/dL Calcium 8.9 (8.4-10.2) mg/dL Magnesium 2.2 (1.6-2.6) mg/dL Total Bilirubin 0.2 (0.0-1.0) mg/dL AST 25 (5-31) U/L ALT 19 (0-31) U/L Alkaline Phosphatase 114 (39-117) U/L Troponin I High Sens < 2.7 (<3.5-17.0) ng/L Total Protein 7.0 (6.5-8.0) g/dL Albumin 3.9 (3.5-5.0) g/dL Lipase 34 (8-78) U/L Independent Interpretation I performed an independent interpretation of an: EKG and Plain X-Ray Interpretation: No overt evidence of STEMI. No evidence of Brugada's sign, delta wave, epsilon wave, significantly prolonged QTc, or malignant arrhythmia No widened mediastinum no infectious process Radiology Impression Discussion of test interpretation with radiology: I have reviewed the radiologist's reading. Radiologist Impression: No acute findings Tests considered The following testing was considered but not selected: Would have considered CTA head patient been hypoxic chest pain been pruritic or tachycardia been present Prescription Management I considered prescription management with: Pain Medication Chronic Conditions Patient?s care impacted by: Diabetes and Hypertension Social Determinants Patient?s care significantly limited by Social Determinants of Health including: Other Social Determinant of Health Discharge Plan Discharge Clinical Impression: Chest pain, Dyspepsia Patient Disposition: Home, Self-Care Additional Instructions: You were seen in the emergency department today due to chest pain that has been present for 5 hours now. You had a workup that showed no evidence of life-threatening etiologies such as heart attack, pulmonary embolism, pericarditis, pneumothorax, mass effect or aortic dissection. Due to the current 30 minutes after eating is most likely indigestion. You were given both Maalox and Tylenol while here. As your chest pain is not exertional and there was no concerning findings with the your workup has been determined that it you may be discharged home from the emergency department. If for any reason your chest pain returns is exertional or gets worse please return to the emergency department. Please schedule follow up with your primary care provider. In the meantime I recommend the falling with your diet: -AVOID alcohol, spicy foods, Motrin/Aleve medications, and eating past 8:00 at night. -You may take antacids such as Maalox or Tums for acute symptoms but realize that these medications will not prevent your symptoms. -Remain upright for at least 45 minutes following meals. -Follow-up with your primary care doctor or gastroenterology. -Return to ED if you develop fever, chills, increased pain, vomiting. Other things to do to prevent symptoms: -Lose weight (if you are overweight) -Raise the head of your bed by 6 to 8 inches (for example, by putting blocks of wood or rubber under 2 legs of the bed or a Styrofoam wedge under the mattress) -Avoid foods that make your symptoms worse (examples include coffee, chocolate, alcohol, peppermint, and fatty foods) -Cut down on the amount of alcohol you drink -Stop smoking, if you smoke -Eat a bunch of small meals each day, rather than 2 or 3 big meals -Avoid lying down for 3 hours after a meal Prescriptions: No Action (DME) 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 meter [FreeStyle Lite Meter] Kit See Rx Instructions miscellaneous .MEDSUPPLY Qty: 1 0RF Rx Instructions: As directed (DME) FreeStyle Lite Strips Strip See Rx Instructions .ROUTE .MEDSUPPLY Qty: 150 11RF Rx Instructions: 4 times a day (DME) lancets [TRUEplus Lancets] 33 gauge misc See Rx Instructions .ROUTE .MEDSUPPLY Qty: 120 11RF Rx Instructions: 4 times a day cholecalciferol (vitamin D3) 50 mcg (2,000 unit) capsule 50 mcg PO DAILY Qty: 90 0RF diltiazem HCl 360 mg Capsule,Extended Release 24 Hr 360 mg PO DAILY clonidine HCl 0.1 mg Tablet 0.1 mg PO BID furosemide 20 mg Tablet 20 mg PO DAILY aspirin 81 mg tablet,delayed release (DR/EC) 81 mg PO DAILY docusate sodium [DOK] 100 mg capsule 100 mg PO DAILY naproxen 500 mg tablet 500 mg PO BID PRN (Reason: pain) Qty: 14 0RF ondansetron 4 mg tablet,disintegrating 4 mg PO Q8H PRN (Reason: nausea and vomiting) Qty: 20 0RF (DME) FreeStyle Control Solution See Rx Instructions .ROUTE .MEDSUPPLY Qty: 1 2RF Rx Instructions: Twice a month sennosides [senna] 8.6 mg tablet 17.2 mg PO DAILY PRN (Reason: constipation) melatonin 5 mg tablet 10 mg PO BEDTIME PRN (Reason: Insomnia) clonazepam 0.5 mg tablet 0.5 mg PO DAILY PRN (Reason: Anxiety) leflunomide 20 mg tablet 20 mg PO DAILY loratadine 10 mg tablet 10 mg PO DAILY PRN (Reason: allergies) gabapentin 300 mg capsule 300 mg PO BID duloxetine 60 mg capsule,delayed release(DR/EC) 60 mg PO BEDTIME cevimeline 30 mg capsule 1 cap PO QAM calcium carbonate 600 mg calcium (1,500 mg) tablet 600 mg PO QAM atorvastatin 20 mg tablet 20 mg PO BEDTIME carvedilol 25 mg tablet 25 mg PO BID folic acid 1 mg tablet 1 mg PO DAILY Ozempic 2 mg/dose (8 mg/3 mL) pen injector 2 mg subcut QWEEK Qty: 3 7RF topiramate 25 mg tablet 25 mg PO BEDTIME (DME) pen needle, diabetic [Comfort EZ Pen [place]] 31 gauge x 3/16 needle See Rx Instructions .Route Qty: 100 2RF Rx Instructions: As directed t inject insulin daily insulin glargine [Lantus Solostar U-100 Insulin] 100 unit/mL (3 mL) insulin pen 10 unit subcut QPM Qty: 3 3RF (DME) FreeStyle Anthony 3 Plus Sensor Device See Rx Instructions .ROUTE .MEDSUPPLY Qty: 6 4RF Rx Instructions: As directed every 15 days dapagliflozin propanediol [Farxiga] 10 mg tablet 10 mg PO DAILY Qty: 30 7RF hydrocortisone [Proctosol HC] 2.5 % cream with perineal applicator 1 appl SD BEDTIME PRN (Reason: hemorrhoids) Qty: 30 3RF losartan 100 mg tablet 100 mg PO DAILY Referrals: Physician,Unknown J [Physician, Medical] Interventions: ED Discharge Assessment Last Done: 11/12/24 22:27 Discharge Date/Time: 11/12/24 22:27 Print Language: Uzbek
[2024-11-12 17:38] LABS: MANUAL DIFF FLAG NO
[2024-11-12 17:40] LABS: Hematocrit 40.1 % (37.0-47.0); Hemoglobin 13.6 g/dl (12.0-16.0); Imm Gran Abs Auto 0.00 X10*3/uL (0.00-0.03); Imm Gran Pct Auto 0.0 % (0.0-0.4); Lymphocytes Absolute Auto 2.5 X10*3/uL (1.2-4.9); Mean Corpuscular HGB Conc 33.9 g/dl (31.0-35.0); Mean Corpuscular Hemoglobin 29.8 pg (27.0-33.0); Mean Corpuscular Volume 87.9 fL (80.0-98.0); NRBC Abs Auto 0.000 X10*3/uL (0.0-0.012); NRBC Pct Auto 0.0 /100WBC (0.0-0.2); Platelet Count 249 X10*3/uL (160-400); Red Blood Count 4.56 X10*6/uL (4.20-5.50); White Blood Count 6.8 X10*3/uL (4.8-10.8)
[2024-11-12 17:53] LABS: Alanine Aminotransferase 19 U/L (0-31); Albumin Level 3.9 g/dL (3.5-5.0); Alkaline Phosphatase 114 U/L (39-117); Anion Gap 12 (12-20); Aspartate Amino Transferase 25 U/L (5-31); Blood Urea Nitrogen 21 mg/dL (9-16); Calcium 8.9 mg/dL (8.4-10.2); Carbon Dioxide 28 mmol/L (22-29); Chloride 105 mmol/L (96-108); Creatinine Clr Calc Pharmacy 54.1; Estimated Glomerular Filt Rate > 60; Lipase 34 U/L (8-78); Magnesium 2.2 mg/dL (1.6-2.6); Potassium 3.5 mmol/L (3.3-5.1); Sodium 141 mmol/L (135-145); Total Protein 7.0 g/dL (6.5-8.0)
[2024-11-12 18:02] LABS: Troponin-I High Sensitivity < 2.7 ng/L (<3.5-17.0)
[2024-11-12 21:39] VITALS: BP 154/94; PULSE 89; RESP 16; TEMP 36.5; O2SAT 95
[2024-11-12] MEDS: Acetaminophen Oral Liquid 650 MG/20.3 ML SOLUTION PO (21:49)
[2024-11-12] MEDS: Magnesium Hydrox/Alum Hydrox 30 ML ORAL.SUSP PO (21:49)
--- OUTSIDE RECORDS SUMMARY | 2024-11-12 22:01 | XMS_ITS | Clinical Summary ---
Author Organization [facility] Address [address] [place] [address] Phone Care Team Providers Care Belly Roller Name Role Phone Mark Foote MD Primary [...] topic Medical Devices Not on file [place] [address] [address] C3 ACO [facility] C3 ACO C3 ACO C3 ACO C3 ACO Care Teams Belly Roller Relationship Specialty Start Date End Date Mark Foote MD [address] [place] [id number] PCP - General Pediatrics 10/15/19 Additional Source Comments The information contained in this document represents components of the legal health record. It is not the complete legal health record.[facility]
--- OUTSIDE RECORDS SUMMARY | 2024-11-12 22:01 | XMS_ITS | Clinical Summary ---
Author Organization [facility] Address 175 [place] [address] Phone Care Team Providers Care Search Optimization Analyst Name Role Phone Berkley Bird MD Primary [...] mmol/L LAB CHEMISTRY METHOD 04/06/2024 6:42 PM [facility] Potassium 3.5 3.5 - 5.5 mmol/L LAB CHEMISTRY METHOD 04/06/2024 6:42 PM [facility] Chloride 102 96 - 110 mmol/L LAB CHEMISTRY METHOD 04/06/2024 6:42 PM [facility] CO2 31 21 - 32 mmol/L LAB CHEMISTRY METHOD 04/06/2024 6:42 PM [facility] Anion Gap 5 3 - 11 LAB CHEMISTRY METHOD 04/06/2024 6:42 PM [facility] Glucose 183(H) 70 - 100 mg/dL LAB CHEMISTRY METHOD 04/06/2024 6:42 PM [facility] BUN 17 5 - 25 mg/dL LAB CHEMISTRY METHOD 04/06/2024 6:42 PM [facility] Creatinine 0.94 0.50 - 1.10 mg/dL LAB CHEMISTRY METHOD 04/06/2024 6:42 PM [facility] eGFR 67 >=60 mL/min/1. 73m2 LAB CHEMISTRY METHOD 04/06/2024 6:42 PM [facility] Comment:Calculation based on the Chronic Kidney Disease Epidemiology Collaboration (CKD-EPI) equation refit without adjustment for race. BUN/Creatinine Ratio 18.1 LAB CHEMISTRY METHOD 04/06/2024 6:42 PM [facility] Calcium 10.3 8.5 - 10.5 mg/dL LAB CHEMISTRY METHOD 04/06/2024 6:42 PM [facility] AST (SGOT) 15 10 - 42 unit/L LAB CHEMISTRY METHOD 04/06/2024 6:42 PM [facility] ALT (SGPT) 22 10 - 60 unit/L LAB CHEMISTRY METHOD 04/06/2024 6:42 PM [facility] Alkaline Phosphatase 140(H) 42 - 121 unit/L LAB CHEMISTRY METHOD 04/06/2024 6:42 PM [facility] Total Protein 7.6 6.0 - 8.0 g/dL LAB CHEMISTRY METHOD 04/06/2024 6:42 PM [facility] Albumin 3.6 3.2 - 5.0 g/dL LAB CHEMISTRY METHOD 04/06/2024 6:42 PM [facility] Total Bilirubin 0.3 0.0 - 1.4 mg/dL LAB CHEMISTRY METHOD 04/06/2024 6:42 PM [facility] Blood Venous blood specimen / Unknown Venipuncture / Unknown 04/06/2024 2:00 PM EST 04/06/2024 2:00 PM EST us Magen Velasco DPM LAB BLOOD ORDERABLES Final Result [facility] ([facility]) [facility] [address] [place] [address], [place] [phone] from Last 3 Months or Most Recently Relevant to Health Maintenance Insurance [facility] MED[facility] Member Subscriber Plan / Payer (Ef fective 2023-Present) Name:Jennifer Payton Relation to Subscriber:Self Name:Jennifer Palmer Payer ID:[id number] Group ID:[id number] Type:Not on file Address: [place] [address] [address] [place] [address] Care Teams Search Optimization Analyst Relationship Specialty Start Date End Date Berkley Bird MD [address] [address] PCP - General Internal Medicine 02/20/24
--- OUTSIDE RECORDS SUMMARY | 2024-11-12 22:01 | XMS_ITS | Encounter Summary ---
Author Organization [employer] Address [address] [place] [address] [place] [address] Care Team Providers Care Integrity Engineer Name Role Phone Emy Askew MD Primary Care Pro vider Reason for Visit * Reason Comments Med Refill Encounter Details Date Type Department Care Team ([facility] Contact Info) Description 02/14/2024 Refill [facility] MEDICINE [address] [place] [address] Emy Askew MD 230 [place] [address] Social History Tobacco Use Types Packs/Day Years [...] Description 11/24/2024 10:45 AM EDT Office Visit [facility] MEDICINE 230 [place] [address] Emy Askew MD 230 [place] [address] 03/19/2025 9:30 AM EST Office Visit [facility] OPTOMETRY [address] [place] [address] Tobias, Rachel, OD 230 [place] [address] documented as of this encounter Visit Diagnoses Not on filedocumented in this encounter Additional Health Concerns Assessment Noted Time PHQ-9 Depression Total Score: 10 024 2:37 PM EDT documented as of this encounter Care Teams Integrity Engineer Relationship Specialty Start Date End Date Emy Askew MD [address] [place] [address] PCP - General Internal Medicine 07/25/22 documented as of this encounter
--- OUTSIDE RECORDS SUMMARY | 2024-11-12 22:01 | XMS_ITS | Encounter Summary ---
Author Organization [employer] Address [address] [place] [address] 7 [place] [address] Care Team Providers Care Brass Pourer Name Role Phone [facility] Primary Care Provider [phone] Emy Askew MD Primary Care Pro vider Reason for Visit * Reason Onset Date Comments Med Refill 05/11/2022 Encounter Details Date Type Department Care Team (Late st Contact Info) Description 05/11/2022 Telephone [facility] MEDICINE [address] [place] [address] [facility] 230 [place] [address] Med Refill Social History Tobacco Use Types [...] has lost the device. Please sent to [facility] - [place], [place] - [address] [place] [address] documented in this encounter Plan of Treatment Upcoming Encounters Date Type Department Care Team ([facility] st Contact Info) Description 11/24/2024 10:45 AM EDT Office Visit [facility] MEDICINE [address] [place] [address] Emy Askew MD 230 [place] [address] 03/19/2025 9:30 AM EST Office Visit [facility] OPTOMETRY [address] [place] [address] Tobias, Rachel, OD 230 [place] [address] documented as of this encounter Visit Diagnoses Not on filedocumented in this encounter Care Teams Brass Pourer Relationship Specialty Start Date End Date [place] Center[place] FNP [address] [place] [address] PCP - General Family Medicine 01/22/22 07/24/22 Emy Askew MD [address] [place] [address] PCP - General Internal Medicine 07/25/22 documented as of this encounter
--- OUTSIDE RECORDS SUMMARY | 2024-11-12 22:01 | XMS_ITS | Encounter Summary ---
Author Organization [employer] Address [address] [place] [address] 7 [place] [address] Care Team Providers Care Family Worker Name Role Phone [facility] Primary Care Provider [phone] Emy Askew MD Primary Care Pro vider Reason for Visit * Reason Onset Date Comments VISION 03/13/2022 Encounter Details Date Type Department Care Team ([facility] st Contact Info) Description 03/13/2022 Telephone [facility] MEDICINE 230 [place] [address] [facility] 230 [place] [address] VISION Social History Tobacco Use Types Packs/Day [...] center regarding an eye exam. Please contact [phone] documented in this encounter Plan of Treatment Upcoming Encounters Date Type Department Care Team (Late st Contact Info) Description 11/24/2024 10:45 AM EDT Office Visit [facility] MEDICINE 230 [place] [address] Emy Askew MD 230 [place] [address] 03/19/2025 9:30 AM EST Office Visit [facility] OPTOMETRY [address] [place] [address] Tobias, Rachel, OD 230 [place] [address] documented as of this encounter Visit Diagnoses Diagnosis Diabetes 1.5, managed as type 2 (CMS/HCC) documented in this encounter Care Teams Family Worker Relationship Specialty Start Date End Date Kenya Sol FNP 230 [place] [address] PCP - General Family Medicine 01/22/22 07/24/22 Emy Askew MD [address] [place] [address] PCP - General Internal Medicine 07/25/22 documented as of this encounter
--- OUTSIDE RECORDS SUMMARY | 2024-11-12 22:01 | XMS_ITS | Encounter Summary ---
Author Organization [employer] Address [address] [facility] 7t [place] [address] Care Team Providers Care Tax Collection Coordinator Name Role Phone Emy Askew MD Primary Care Pro vider Encounter Details Date Type Department Care Team ([facility] st Contact Info) Description 02/23/2024 Orders Only [facility] MED[facility]INE 230 [place] [address] Provider, MD Waylon Social History Tobacco Use [...] Description 11/24/2024 10:45 AM EDT Office Visit [facility] MED[facility] 230 [place] [address] Emy Askew MD 230 [place] [address] 03/19/2025 9:30 AM EST Office Visit [facility] OPTOMETRY [address] [place] [address] Tobias, Rachel, OD 230 [place] [address] documented as of this encounter Procedures Procedure [...] documented as of this encounter Care Teams Tax Collection Coordinator Relationship Specialty Start Date End Date Emy Askew MD [address] [place] [address] PCP - General Internal Medicine 07/25/22 documented as of this encounter
--- OUTSIDE RECORDS SUMMARY | 2024-11-12 22:01 | XMS_ITS | Encounter Summary ---
Author Organization [employer] Address [address] [place] [address] Care Team Providers Care Cut Out Press Operator Name Role Phone Emy Askew MD Primary Care Pro vider Reason for Visit * Reason Onset Date Comments Triage 07/31/2022 Encounter Details Date Type Department Care Team ([facility] st Contact Info) Description 07/31/2022 Telephone [facility] MEDICINE 230 [place] [address] Emy Askew MD 230 [place] [address] Triage Social History Tobacco Use Types Packs/Day [...] The caller accepted this outcome Patient speaks romanian. documented in this encounter Plan of Treatment Upcoming Encounters Date Type Department Care Team (Late st Contact Info) Description 11/24/2024 10:45 AM EDT Office Visit [facility] 230 [place] [address] Emy Askew MD 230 [place] [address] 03/19/2025 9:30 AM EST Office Visit [facility] OPTOMETRY [address] [place], [place] [phone] Rachel Collado, OD 230 [place] [address] documented as of this encounter Visit Diagnoses Not on filedocumented in this encounter Care Teams Cut Out Press Operator Relationship Specialty Start Date End Date Emy Askew MD 230 [place] [address] PCP - General Internal Medicine 07/25/22 documented as of this encounter
--- OUTSIDE RECORDS SUMMARY | 2024-11-12 22:01 | XMS_ITS | Encounter Summary ---
Author Organization [employer] Address [address] [place] [address] Care Team Providers Care Electric Deicer Inspector Name Role Phone Emy Askew MD Primary Care Pro vider Reason for Visit * Reason Onset Date Comments pre-op paperwork 10/18/2022 Encounter Details Date Type Department Care Team ([facility] st Contact Info) Description 10/18/2022 Telephone [facility] [address] [place] [address] Emy Askew MD 230 [place] [address] pre-op paperwork Social History Tobacco Use Types [...] methotrexate and leflunomide??( if ok with her outpatient pharmacy manager)-pt to confirm and Cymbalta if taking in am. Hold am of surgery lasix,amytriptiline,lisinopril ??.HoldASA 5 days prior procedure and avoid NSAIDS 7 days prior procedure. Thanks documented in this encounter Plan of Treatment Upcoming Encounters Date Type Department Care Team (Late st Contact Info) Description 11/24/2024 10:45 AM EDT Office Visit [facility] [address] [place] [address] Emy Askew MD 230 [place] [address] 03/19/2025 9:30 AM EST Office Visit [facility] OPTOMETRY [address] [place], [place] [phone] Rachel Collado, OD 230 [place] [address] documented as of this encounter Visit Diagnoses Not on filedocumented in this encounter Additional Health Concerns Assessment Noted Time PHQ-9 Depression Total Score: 16 023 10:16 AM EDT documented as of this encounter Care Teams Electric Deicer Inspector Relationship Specialty Start Date End Date Emy Askew MD [address] [place] [address] PCP - General Internal Medicine 07/25/22 documented as of this encounter
--- OUTSIDE RECORDS SUMMARY | 2024-11-12 22:01 | XMS_ITS | Encounter Summary ---
Author Organization [employer] Address [address] [place] [address] 7 [place] [address] Care Team Providers Care Research Contracts Supervisor Name Role Phone Kenya Sol LDR NURSE Primary Care Provider [phone] Emy Askew MD Primary Care Pro vider Encounter Details Date Type Department Care Team (Late Contact Info) Description 03/26/2022 Orders Only [facility] MEDICINE 230 [place], [place] [phone] Lizett Cannon LPN Social History Tobacco Use [...] Description 11/24/2024 10:45 AM EDT Office Visit [facility] MEDICINE 230 [place], [place] [phone] Emy Askew MD 230 [place], [place] [phone] 03/19/2025 9:30 AM EST Office Visit [facility] OPTOMETRY [address] [place] [phone] Rachel Collado, OD 230 [place], [place] [phone] documented as of this encounter Visit Diagnoses Not on filedocumented in this encounter Care Teams Research Contracts Supervisor Relationship Specialty Start Date End Date Kenya Sol FNP 230 [place], [place] [phone] PCP - General Family Medicine 01/22/22 07/24/22 Emy Askew MD 230 [place], [place] [phone] PCP - General Internal Medicine 07/25/22 documented as of this encounter
--- OUTSIDE RECORDS SUMMARY | 2024-11-12 22:01 | XMS_ITS | Encounter Summary ---
Author Organization [employer] Address [address] [facility] 7t [place] [address] Care Team Providers Care Activity Manager Name Role Phone Emy Askew MD Primary Care Pro vider Encounter Details Date Type Department Care Team ([facility] st Contact Info) Description 08/07/2023 Orders Only [facility] MED & PEDS [address] [place] [address] Valeria Armas FNP [address] [place] [address] Social History Tobacco Use Types Packs/Day Years [...] Description 11/24/2024 10:45 AM EDT Office Visit [facility] MEDICINE 230 [place] [address] Emy Askew MD 230 [place] [address] 03/19/2025 9:30 AM EST Office Visit [facility] OPTOMETRY [address] [place] [address] Tobias, Rachel, OD 230 [place] [address] documented as of this encounter Visit Diagnoses Not on filedocumented in this encounter Additional Health Concerns Assessment Noted Time PHQ-9 Depression Total Score: 16 023 10:16 AM EDT documented as of this encounter Care Teams Activity Manager Relationship Specialty Start Date End Date Emy Askew MD 230 [place] [address] PCP - General Internal Medicine 07/25/22 documented as of this encounter
--- OUTSIDE RECORDS SUMMARY | 2024-11-12 22:01 | XMS_ITS | Encounter Summary ---
Author Organization [employer] Address [address] [place] [address] Care Team Providers Care Sanitation Worker Cleaning Equipment Name Role Phone Cyn Bosch MD Primary Care Provider Michelle msedith [facility] Primary Care Provider [phone] Emy Askew MD Primary Care Pro vider Encounter Details Date Type Department Care Team (Latest Contact Info) Description 10/26/2021 Abstract [facility] CONVERSIONS Dental, Provider, DDS Social History Tobacco [...] [facility] MEDICINE 230 [place] [address] Emy Askew MD 230 [place] [address] 03/19/2025 9:30 AM EST Office Visit [facility] OPTOMETRY 267 [place] [address] Rachel Collado, OD 230 [place] [address] documented as of this encounter Visit Diagnoses Not on filedocumented in this encounter Care Teams Sanitation Worker Cleaning Equipment Relationship Specialty Start Date End Date Cyn Bosch MD PCP - General Family Medicine 08/20/19 01/21/22 [place] FNP [address] [place] [address] PCP - General Family Medicine 01/22/22 07/24/22 Emy Askew MD [address] [place] [address] PCP - General Internal Medicine 07/25/22 documented as of this encounter
--- OUTSIDE RECORDS SUMMARY | 2024-11-12 22:01 | XMS_ITS | Encounter Summary ---
Author Organization [employer] Address [address] [place] [address] 7t [place] [address] Care Team Providers Care Captain Fishing Vessel Name Role Phone [facility] Primary Care Provider [phone] Emy Askew MD Primary Care Pro vider Reason for Visit * Reason Onset Date Comments Appointment Request 06/07/2022 Encounter Details Date Type Department Care Team ([facility] st Contact Info) Description 06/07/[address] [facility] MEDICINE [address] [place] [address] [facility] 230 [place] [address] Appointment Request Social History Tobacco Use Types [...] with new provider. Please contact pt at [phone] documented in this encounter Plan of Treatment Upcoming Encounters Date Type Department Care Team (Late st Contact Info) Description 11/24/2024 10:45 AM EDT Office Visit [facility] MEDICINE 230 [place] [address] Emy Askew MD 230 [place] [address] 03/19/2025 9:30 AM EST Office Visit [facility] OPTOMETRY [address] [place] [address] Rachel Collado, OD 230 [place] [address] documented as of this encounter Visit Diagnoses Not on filedocumented in this encounter Care Teams Captain Fishing Vessel Relationship Specialty Start Date End Date [place], METALIZING MACHINE OPERATOR AUTOMATIC [address] [place] [address] PCP - General Family Medicine 01/22/22 07/24/22 Emy Askew MD [address] [place] [address] PCP - General Internal Medicine 07/25/22 documented as of this encounter
--- OUTSIDE RECORDS SUMMARY | 2024-11-12 22:01 | XMS_ITS | Encounter Summary ---
Author Organization [employer] Address [address] [place] [address] 7 [place] [address] Care Team Providers Care Aerospace Project Manager Name Role Phone Kenya Sol CARE NAVIGATOR Primary Care Provider [phone] Emy Askew MD Primary Care Pro vider Encounter Details Date Type Department Care Team (Late Contact Info) Description 05/28/2022 Orders Only [facility] CHC MED & PEDS [address] [place], [place] [phone] Candy Miller LPN Social History Tobacco Use [...] Description 11/24/2024 10:45 AM EDT Office Visit [facility] MEDICINE 230 [place], [place] [phone] Emy Askew MD 230 [place], [place] [phone] 03/19/2025 9:30 AM EST Office Visit [facility] OPTOMETRY [address] [place], [place] [phone] Rachel Collado OD 230 [place] [address] documented as of this encounter Visit Diagnoses Not on filedocumented in this encounter Care Teams Aerospace Project Manager Relationship Specialty Start Date End Date Kenya Sol FNP [address] [place] [address] [phone] PCP - General Family Medicine 01/22/22 07/24/22 Emy Askew MD [address] [place] [address] [phone] PCP - General Internal Medicine 07/25/22 documented as of this encounter
--- OUTSIDE RECORDS SUMMARY | 2024-11-12 22:01 | XMS_ITS | Encounter Summary ---
Author Organization [employer] Address [address] [place] [address] Care Team Providers Care Merchandising Stock Associate Name Role Phone Cyn Bosch MD Primary Care Provider Michelle wiedith [facility] Primary Care Provider [phone] Emy Askew MD Primary Care Pro vider Encounter Details Date Type Department Care Team (Latest Contact Info) Description 05/09/2020 Abstract [facility] CONVERSIONS Dental, Provider, DDS Social [...] Description 11/24/2024 10:45 AM EDT Office Visit [facility] MEDICINE 230 [place] [address] Emy Askew MD 230 [place] [address] 03/19/2025 9:30 AM EST Office Visit [facility] OPTOMETRY [address] [place] [address] Rachel Collado, OD 230 [place] [address] documented as of this encounter Visit Diagnoses Not on filedocumented in this encounter Care Teams Merchandising Stock Associate Relationship Specialty Start Date End Date Cyn Bosch MD PCP - General Family Medicine 08/20/19 01/21/22 [place] FNP [address] [place] [address] PCP - General Family Medicine 01/22/22 07/24/22 Emy Askew MD [address] [place] [address] PCP - General Internal Medicine 07/25/22 documented as of this encounter
--- OUTSIDE RECORDS SUMMARY | 2024-11-12 22:02 | XMS_ITS | Encounter Summary ---
Author Organization [employer] Address [address] [place] [address] Care Team Providers Care Commercial Sales Representative Name Role Phone Cyn Bosch MD Primary Care Provider Michelle laedith [facility] Primary Care Provider [phone] Emy Askew MD Primary Care Pro vider Encounter Details Date Type Department Care Team (Latest Contact Info) Description 09/30/2018 Abstract [facility] CONVERSIONS Dental, Provider, DDS Social History [...] Description 11/24/2024 10:45 AM EDT Office Visit [facility] MEDICINE 230 [place] [address] Emy Askew MD 230 [place] [address] 03/19/2025 9:30 AM EST Office Visit [facility] OPTOMETRY [address] [place] [address] Rachel Collado, OD 230 [place] [address] documented as of this encounter Visit Diagnoses Not on filedocumented in this encounter Care Teams Commercial Sales Representative Relationship Specialty Start Date End Date Cyn Bosch MD PCP - General Family Medicine 08/20/19 01/21/22 [place] FNP [address] [place] [address] PCP - General Family Medicine 01/22/22 07/24/22 Emy Aksew MD [address] [place] [address] PCP - General Internal Medicine 07/25/22 documented as of this encounter
--- OUTSIDE RECORDS SUMMARY | 2024-11-12 22:02 | XMS_ITS | Encounter Summary ---
Author Organization [employer] Address [address] [place] [address] [place] [address] Care Team Providers Care Homeowner Association Manager Name Role Phone Emy Askew MD Primary Care Pro vider Reason for Visit * Reason Comments Med Refill Encounter Details Date Type Department Care Team ([facility] st Contact Info) Description 02/09/2023 Refill [facility] MEDICINE 230 [place] [address] Emy Askew MD [address] [place] [address] Social History Tobacco Use Types Packs/Day Years [...] Description 11/24/2024 10:45 AM EDT Office Visit [facility] MEDICINE 230 [place] [address] Emy Askew MD [address] [place] [address] 03/19/2025 9:30 AM EST Office Visit [facility] OPTOMETRY [address] [place] [address] Tobias, Rachel, OD 230 [place] [address] documented as of this encounter Visit Diagnoses Not on filedocumented in this encounter Additional Health Concerns Assessment Noted Time PHQ-9 Depression Total Score: 16 023 10:16 AM EDT documented as of this encounter Care Teams Homeowner Association Manager Relationship Specialty Start Date End Date Emy Askew MD [address] [place] [address] PCP - General Internal Medicine 07/25/22 documented as of this encounter
--- OUTSIDE RECORDS SUMMARY | 2024-11-12 22:02 | XMS_ITS | Encounter Summary ---
Author Organization [facility] Address [address] [facility] [address] [place] [address] Phone Care Team Providers Care Boat Hoist Operator Name Role Phone Unknown, Unknown Primary Care Provider Mark Segura MD Primary Care Provider Encounter Details Date Type Department Care Team (Latest Contact Info) Description 05/26/2018 Ancillary Orders [facility] [address] [place] [address] [place] [address] Isidro Watkins, DO [address] [place] [address] Other chest pain Social History Tobacco Use [...] pain documented in this encounter Care Teams Boat Hoist Operator Relationship Specialty Start Date End Date Unknown, Unknown, PCP - General 05/15/18 10/14/19 Mark Foote MD [address] [place] [address] PCP - General Pediatrics 10/15/19 documented as of this encounter Additional Source Comments The information contained in this document represents components of the legal health record. It is not the complete legal health record.[facility]
--- OUTSIDE RECORDS SUMMARY | 2024-11-12 22:02 | XMS_ITS | Clinical Summary ---
Author Organization [employer] Address [address] [place] [address] 7 [place] [address] Care Team Providers Care Network Architect Manager Name Role Phone Emy Askew MD [...] each 12 025 2025 Active Continuous Glucose Compact Assembler (FreeStyle Anthony 3 [place]) deviceIndication s:Type 2 diabetes mellitus without complication, unspecified whether intermediate project manager insulin use ([facility]) 1 each Once per day. Use as directed for CGM 1 each Active Continuous Glucose Sensor (FreeStyle Anthony 3 Plus Sensor) miscIndications: Type 2 diabetes mellitus without complication, unspecified whether intermediate project manager insulin use ([facility]) 1 each every 15 days. Use to [...] 2 diabetes mellitus without complication, unspecified whether intermediate project manager insulin use ([facility]) USE DIRECTED FIVE TIMES DAILY [...] referred by ENT for further eval in [place] but never went -referred again to ENT [...] referred by ENT for further eval in [place] but never went -referred again to ENT [...] w RA / Sjogren's disease, follows w snorkelling instructor - Continue care w specialist -on leflunomide and MTX Assessment & Plan (10/23/2022 5:23 PM EDT): Pt w RA / Sjogren's disease, follows w snorkelling instructor - Continue care w specialist -on leflunomide and MTX Assessment & Plan (09/24/2022 8:33 PM EDT): Pt w RA / Sjogren's disease, follows w snorkelling instructor - Continue care w specialist Bilateral post-traumatic [...] Pt following w psychiatrist and therapist at [facility]. Denies SI but has thoughts to be better off . - Continue care w specialist - Pt requests information to be able to change to an old age home --already received information -in process per pt Assessment & Plan (10/23/2022 5:23 PM EDT): Pt following w psychiatrist and therapist at [facility]. Denies SI but has thoughts to be better off . - Continue care w specialist - Pt requests information to be able to change to an old age home --already received information -in process per pt Assessment & Plan (09/24/2022 8:32 PM EDT): Pt following w psychiatrist and therapist at [facility]. Denies SI but has thoughts to be better off . - Continue care w specialist - Pt requests information to be able to change to an old age home -- I spoke w family caseworker today and they will come to speak w pt to give info. Was told that there is no need to refer to CM for this. Type 2 diabetes mellitus without complication Assessment & Plan (12/06/2022 6:16 AM EDT): 09/2022 HbA1C 8.2<---8.7, CBG 248., total ch 169, trig 324( in fasting) ,HDL 36,LDL 69, Microalb neg Used to follow w labor relations teacher, but lost care. Not on metformin for [...] - to f in 1 y. - Environmental Science Technician: seen in 11/2022 Assessment & Plan (10/23/2022 5:46 PM EDT): 09/2022 HbA1C 8.2<---8.7, CBG 248., total ch 169, trig 324( in fasting) ,HDL 36,LDL 69, Microalb neg Used to follow w labor relations teacher, but lost care. Not on metformin for [...] - to f in 1 y. - Environmental Science Technician: referred today Assessment & Plan (09/24/2022 8:51 PM EDT): Today HbA1C 8.7, CBG 248. Used to follow w labor relations teacher, but lost care. - DM2 labs. - Will consider increasing Trulicity at her next appt. - Pt not currently on Metformin, but used to be in the past. Will check at her next appt, and if she can tolerate it, will resume Rx. - Ophthalmology 07/2022 - to f in 1 y. - Environmental Science Technician: will refer at next visit. Varicose veins of lower extremity 07/08/2017 Assessment & Plan (10/23/2022 5:12 PM EDT): Pt w lower extremity edema trace from 1+ before , possibly from Cardiazem and venous insufficiency. - Advised to use compression stockings,--started using with noted improved LE edema -I confirmed today w her governor assembler hydraulic-Dr Watkins #[phone] that pt does not have CHF and [...] (12/06/2022 6:19 AM EDT): Pt following with snorkelling instructor. Pt w consistently dry mouth. From med [...] for unclear reasons. - PT following w governor assembler hydraulic actively w on and off chest discomfort. [...] mg in pm - PT following w governor assembler hydraulic -will f BP in next 3 to 4 weeks Assessment & Plan (09/24/2022 8:43 PM EDT): BP slightly elevated at 144/94 - Holter 2019 neg. -echocardiogram 2018The left ventricular systolic function is normal. The visually estimated ejection fraction is between 60-65%. -stress test 2019 : nondiagnostic EKG For ischemia. - Will monitor BP manually at next visit. - PT following w governor assembler hydraulic Chronic constipation 12/24/2016 Gastroesophageal reflux disease without [...] in 2016 here . 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 Hold am of surgery lasix,amytriptiline,lisinopril .Hold ASA 5 days prior procedure and avoid NSAIDS 7 days prior procedure. -will rec to have post op EKG as rec by her governor assembler hydraulic for noted prolonged QTC -will rec to [...] Type Department Care Team Description 10/29/2024 Refill [facility] [address] [place] [address] Lucina Haro MD 10/29/2024 Refill [facility] [address] [place] [address] Emy Askew MD 10/26/2024 Refill [facility] [address] [place] [address] Lucy Main MD Benign essential hypertension 10/19/2024 9:30 AM EDT Clinical Support [facility] [address] [place] [address] Kaylen Mane, GARY Hyperlipidemia associated with type 2 diabetes mellitus ([facility]) 10/19/2024 Travel 10/18/2024 Telephone [facility] [address] [place] [address] Emy Askew MD Med Refill 10/16/2024 Travel 10/12/2024 Telephone [facility] [address] [place] [address] Emy Askew MD Prior Authorization (Ozempic) 10/08/2024 Refill [facility] [address] [place] [address] Lucy Main MD Type 2 diabetes mellitus without complication, unspecified whether [place] [facility] insulin use ([facility]) 10/01/2024 1:00 PM EDT Clinical Support [facility] [address] [place] [address] Akilah Maradiaga, RN Type 2 diabetes mellitus without complication, unspecified whether [place] [facility] insulin use (CMS/HCC) 10/01/2024 Travel 09/29/2024 Telephone [facility] [place] [address] Doris Henry, GARY CGM 09/28/2024 Refill [facility] [place] [address] Keely Lutz MD 09/19/2024 Results Follow-Up [address] [address] Emy Askew MD Comprehensive Metabolic Panel, Magnesium, MR Abdomen w/ and w/o Contrast 09/19/2024 Orders Only [facility] [address] [place] [address] Emy Askew MD Hypokalemia (Primary Dx) 09/11/2024 9:30 AM EDT Office Visit [facility] [address] [place] [address] Emy Askew MD Benign essential hypertension (Primary Dx); Type 2 diabetes mellitus without complication, unspecified whether [place] [facility] insulin use (CMS/HCC); Dietary counseling; Exercise counseling; Renal cyst; Healthcare maintenance; Severe recurrent major depression without psychotic features (CMS/HCC); Poor memory; Alopecia of scalp; Biliary calculus of other site without obstruction; Hypokalemia 09/11/2024 Telephone [facility] [place] [address] Akilah Maradiaga, learning specialist 09/11/2024 Travel 09/10/2024 Telephone [facility] [address] [place], [place] [phone] Emy Askew MD Chart Prep 08/30/2024 Refill [facility] [place] [address] Florin Hammond MD Chronic constipation 08/27/2024 Refill [facility] [address] [place] [address] Emy Askew MD Benign essential hypertension 08/22/2024 Refill [facility] [address] [place] [address] Emy Askew MD 2024 Refill [facility] [address] [facility] [place] [facility] [place] [address] Emy Askew MD 08/19/2024 Telephone [facility] [address] [place] [address] Doris Henry RN Lab Orders; MRI order 08/19/2024 Results Follow-Up [facility] [address] [place] [address] Abdomen Pelvis w/ Contrast 08/19/2024 Orders Only [facility] [address] [place] [address] Emy Askew MD Renal cyst (Primary Dx) 08/17/2024 10:00 AM EDT Clinical Support [facility] [address] [place] [address] Wing John, GARY Poor memory 08/17/2024 Travel [...] Description 11/24/2024 10:45 AM EDT Office Visit [facility] [address] [place] [address] Emy Askew MD [address] [place] [address] 03/19/2025 9:30 AM EST Office Visit [facility] [address] [place] [address] Racehl Collado, OD [address] [place] [address] Health Maintenance Due Date Last Done Comments [...] 2 diabetes mellitus without complication, unspecified whether intermediate project manager insulin use (CMS/HCC) POCT GLUCOSE Routine 09/11/2024 9:28 AM EDT Type 2 diabetes mellitus without complication, unspecified whether intermediate project manager insulin use (CMS/HCC) CT ABDOMEN PELVIS W [...] 3:30 PM EDT Periodontal disease Fractured dental religious with loss of material HPV MRNA E6/E7 [...] PM EDT Narrative 10/06/2024 3:03 PM EDT [facility] [address] [place] [address] Drive [address] [place] [address] XRay Report Signed Patient: Jennifer Palmer MR#: [id number] 0 : 1960 Acct:[id number] Age/Sex: 64 / F ADM Date: 10/06/24 Loc: HO.HOSX Attending Dr: Amada Macias PA-C Ordering Physician: Amada Macias PA-C Date of Service: 10/06/24 Procedure(s): XR pelvis 1-2V Accession Number(s): [id number] cc: Amada Macias PA-C; Emy Askew MD [...] 10/06/24 1503 DD/ 1502 TD/TT: 10/06/24 1502 Early Childhood Educator Aide: Procedure Note Donotuseinterpreter, Image - 10/06/2024 [facility] [address] [place] [address] [place] [address] XRay Report Signed Patient: Axel Palmer#: [id number] 0 : 9Acct:[id number] Age/Sex: 64 / FADM Date: 10/06/24 Loc: HO.SEFERINOX Attending Dr: Amada Macias PA-C Ordering Physician: Amada Macias PA-C Date of Service: 10/06/24 Procedure(s): XR pelvis 1-2V Accession Number(s): [id number] cc: Amada Macias PA-C; Emy Askew MD [...] 10/06/24 1503 DD/ 1502 TD/TT: 10/06/24 1502 Early Childhood Educator Aide: us [facility] External Provider IMG XR PROCEDURES Edited Result - Final * MR Abdomen w/ and w/o Contrast (09/24/2024 2:04 AM EDT) Anatomical Region Laterality Modality Abdomen Magnetic Resonan ce 09/24/2024 2:04 AM EDT Narrative 09/24/2024 2:06 AM EDT [address] [address] Magnetic Resonance Report Signed Patient: Jennifer Pamler MR#: [id number] 0 : 1960 Acct:[id number] Age/Sex: 64 / F ADM Date: 09/23/24 Loc: HO.MRI Attending Dr: Emy Goldsmith MD Ordering Physician: Emy Askew MD Date of Service: 09/23/24 Procedure(s): MR abdomen wo/w con Accession Number(s): [id number] cc: Emy Askew MD CLINICAL HISTORY: rec [...] in OV> 09/24/24204 DD/ 3 TD/TT: 09/24/24203 Early Childhood Educator Aide: Procedure Note Donotuseinterpreter, Image - 09/24/[address] [address] Magnetic Resonance Report Signed Patient: Axel Palmer#: [id number] 0 : 9Acct:[id number] Age/Sex: 64 / FADM Date: 09/23/24 Loc: HO.MRI Attending Dr: Emy Goldsmith MD Ordering Physician: Emy Askew MD Date of Service: 09/23/24 Procedure(s): MR abdomen wo/w con Accession Number(s): [id number] cc: Eym Askew MD CLINICAL HISTORY: rec MRI renal [...] in OV> 09/24/24204 DD/ 3 TD/TT: 09/24/24203 Early Childhood Educator Aide: us Emy Goldsmith MD IMG MRI PROCEDURE S Edited Result - Final * Magnesium (09/19/2024 8:28 AM EDT) Magnesium 2.0 1.6 - 2.6 mg/dL [facility] Blood Venous blood specimen / Unknown 09/19/2024 8:28 AM EDT 09/19/2024 8:28 AM EDT us Emy Goldsmith MD LAB BLOOD ORDERAB LES Final Result [facility] [address] [place] [phone] * (ABNORMAL) Comprehensive Metabolic Panel (09/19/2024 8:28 AM EDT) Sodium 141 135 - 145 mmol/L [facility] Potassium 3.1(L) 3.3 - 5.1 mmol/L [facility] Chloride 108 96 - 108 mmol/L [facility] Carbon Dioxide 26 22 - 29 mmol/L [facility] Anion Gap 10(L) 12 - 20 [facility] Urea Nitrogen (BUN) 14 9 - 16 mg/dL [facility] Creatinine, Serum 0.78 0.5 - 1.4 mg/dL [facility] Estimated Glomerular Filt Rate >60 [facility] Comment:Chronic Kidney Disea se: Estimated GFR < 60 mL/min/1.68x5Lillml Kidney Disease: Estimated GFR < 15 mL/min/1.73m2 Glucose 277(H) 60 - 115 mg/dL [facility] Calcium 9.0 8.4 - 10.2 mg/dL [facility] Bilirubin, Total 0.4 0.0 - 1.0 mg/dL [facility] Aspartate Amino Transferase 20 5 - 31 U/L [facility] Alanine Aminotransferase 17 0 - 31 U/L [facility] Total Protein 7.5 6.5 - 8.0 g/dL [facility] Albumin Level 4.1 3.5 - 5.0 g/dL [facility] Alkaline Phosphatase 141(H) 39 - 117 U/L [facility] Blood Venous blood specimen / Unknown 09/19/2024 8:28 AM EDT 09/19/2024 8:28 AM EDT us Emy Goldsmith MD LAB BLOOD ORDERAB LES Final Result [facility] [address] [place] [phone] * (ABNORMAL) POCT HGB A1C (09/11/2024 9:28 AM EDT) Hemoglobin A1C 8.3(A) 4.0 - 5.7 % QC Media Lot # [id number] Lot# Expiration Date ,368,404 Blood 09/11/2024 9:28 AM EDT Emy Goldsmith MD POINT OF CARE KALEN T ENTER/EDIT ORDERABLES Final Result * (ABNORMAL) POCT Glucose (09/11/2024 9:28 AM EDT) [facility] Glucose Blood, POC 325(A) 60 - 200 [...] AM EDT Narrative 08/19/2024 11:58 AM EDT [place] [address] [address] Scan Report Signed Patient: Jennifer Palmer MR#: [id number] 0 : 1960 Acct:[id number] Age/Sex: 63 / F ADM Date: 08/18/24 Loc: HO.CT Attending Dr: Emy Goldsmith MD Ordering Physician: Emy Askew MD Date of Service: 08/18/24 Procedure(s): CT abdomen pelvis w IV con Accession Number(s): [id number] cc: Emy Askew MD Report Number: [id number]: Total DLP = 400.00 mGy-cm CLINICAL HISTORY: -consider repeat CT abd w contrast for peripancreatic LND Exam: CT abdomen and pelvis with IV contrast Comparison: CT/REG/KS/SR - CT ABDOMEN WO/W IV CON - [...] 08/19/24 1157 DD/ 1156 TD/TT: 08/19/24 1156 Early Childhood Educator Aide: Procedure Note Donotuseinterpreter, Image - 08/19/[address] [place] [address] [address] Scan Report Signed Patient: Axel Palmer#: [id number] 0 : 9Acct:[id number] Age/Sex: 63 / FADM Date: 08/18/24 Loc: HO.CT Attending Dr: Emy Goldsmith MD Ordering Physician: Emy Askew MD Date of Service: 08/18/24 Procedure(s): CT abdomen pelvis w IV con Accession Number(s): [id number] cc: Emy Askew MD Report Number: [id number]: Total DLP = 400.00 mGy-cm CLINICAL HISTORY: -consider repeat CT abd w contrast for peripancreaticLND Exam: CT abdomen and pelvis with IV contrast Comparison: CT/REG/KS/SR - CT ABDOMEN WO/W IV CON - [...] 08/19/24 1157 DD/ 1156 TD/TT: 08/19/24 1156 Early Childhood Educator Aide: Emy Goldsmith MD IMG CT PROCEDURES Final Result * BI Mammogram Screening Tomosynthesis Bilateral (03/17/2024 1:00 PM EST) Anatomical Region Laterality Modality Breast Bilateral Mammography 03/17/2024 1:00 PM EST Narrative 03/28/2024 10:52 AM EST [facility] [address] [place] [address] [place] [address] Mammography Report Signed Patient: Jennifer Palmer MR#: [id number] 0 : 1960 Acct:[id number] Age/Sex: 63 / F ADM Date: 03/17/24 Loc: HO.MAMMO Attending Dr: Emy Goldsmith MD Ordering Physician: Eym Askew MD sults: 1Negative Date of Service: 03/17/24 Follow Up: 1 Year From Orig inal Mammogram Procedure(s): MM tomosynthesis screening BI Accession Number(s): [id number] cc: Emy Askew MD EXAMINATION: MM SCREENING [...] 03/28/24 1049 DD/ 1300 TD/TT: 03/17/24 1320 Early Childhood Educator Aide: Procedure Note Donotuseinterpreter, Image - 03/28/2024 [facility] [address] [place], [place] [address] Mammography Report Signed Patient: Axel Palmer#: [id number] 0 : 9Acct:[id number] Age/Sex: 63 / FADM Date: 03/17/24 Loc: DELON Attending Dr: Emy Goldsmith MD Ordering Physician: Emy Askew sults: 1Negative Date of Service: 03/17/24Follow Up: 1 Year From Orig inal Mammogram Procedure(s): MM tomosynthesis screening BI Accession Number(s): [id number] cc: Emy Askew MD EXAMINATION: MM SCREENING [...] 03/28/24 1049 DD/ 1300 TD/TT: 03/17/24 1320 Early Childhood Educator Aide: us Emy Goldsmith MD IMG BI PROCEDURES Final Result * (ABNORMAL) Lipid Panel, Standard (12/25/2023 7:08 AM EDT) Triglycerides 232(H) <150 mg/dL [facility] Comment:Desirable Triglyceri de: less than 150 mg/dLBorderline High Triglyceride 150-199 mg/dLHigh Triglyceride: 200-499 mg/dLVery High Triglyceride: greater than or equal to 5OO mg/dL Cholesterol 154 <200 mg/dL [facility] Comment:Desirable Cholestero l: less than 200 mg/dLBorderline High Cholesterol: 200-239 mg/dLHigh Cholesterol: greater than 239 mg/dL LDL Cholesterol Calculated 64 <100 mg/dL [facility] Comment:Desirable LDL: less than 100 mg/dLNear Optimal/Above Optimal LDL: 110- 129 mg/dLBorderline High LDL: 130-159 mg/dLHigh LDL: 160-189 mg/dLVery High LDL: greater than or equal to 190 mg/dL HDL Cholesterol 44 >40 mg/dL [facility] Comment:Desirable HDL: great er than 40 mg/dL Note: This HDL assay may give artificially low results in patients with liver disease. Blood Venous blood specimen / Unknown 12/25/2023 7:08 AM EDT 12/25/2023 7:09 AM EDT us Emy Goldsmith MD LAB BLOOD ORDERAB LES Final Result Performing Organization Address [facility] de Phone Number [facility] [address] [place] [phone] * (ABNORMAL) Albumin, Random Urine W/Creatinine (12/25/2023 7:05 AM EDT) Creatinine, Urine 50.21 mg/dL [facility] Microalbumin Urine 78.0 mg/L [facility] Microalbum Creatinine Ratio Ur 155.3(H) <30 ug/mg cr [facility] Comment:Albumin/Creatinine R atio Reference Ranges: Normal: < 30 ug/mg creatinine Microalbuminuria: 30 - 300 ug/mg creatinineClinical Albuminuria: > 300 ug/mg creatinine Urine (Urine, Random) 12/25/2023 7:05 AM EDT 12/25/2023 7:49 AM EDT us Emy Goldsmith MD LAB URINE ORDERAB LES Final Result Performing Organization Address [facility] Co de Phone Number [facility] [address] [place] [phone] * HPV mRNA E6/E7 w/Reflex to HPV Genotypes 16, 18/45 (05/27/2023 10:50 AM EDT) HPV nRNA E6/E7 Not Detected Not Detected [facility] Comment:Methodology: Transcr iption-Mediated AmplificationThis assay detects E6/E7 viral messenger RNA (mRNA) from 14high-risk HPV types (16,18,31,33,35,39,45,51,52,56,58,59,66,68).Cervical sources are required for HPV testing.If a vaginal source from a patient who has had atotal hysterectomy with removal of cervix wassubmitted, please contact the testing laboratoryfor alternative testing options.For additional information, please refer [email or web address](This link if provided for information/educational purposes only.)THIS TEST WAS PERFORMED AT:[facility] [place] [phone] CAMARENA MD HPV mRNA E6/E7 TNP [facility] HPV 16 RNA [facility] HPV 18/45 RNA [facility] 05/27/2023 10:5 0 AM EDT 05/28/2023 11:50 AM EDT us Alden Cai [facility] CYTOLOGY ORDERABLES F inal Result [facility] [address] [place] [phone] * Pap Smear (05/27/2023 10:50 AM EDT) Swab Cervix uteri structure / Unknown 05/27/2023 10:50 AM EDT 05/28/2023 11:50 AM EDT Narrative [facility] - 06/09/2023 5:49 PM EDT ----- ------- Name: Jennifer Palmer Age/Sex: 62/F : 1960 Unit#: [id number] Attend Dr: ALDEN CAI CNM Re05/27/23 Status: DEP REF [facility] Disch: ----- ------- SPEC : [id number] RECD: 05/28/23-1150 STATUS: CORRIE VELEZ NUM: [id number] PRANAY: 05/27/23-[address]: ALDEN CAI ENTERED: [...] 59, 66, 68) HPV testing performed by [facility], [place], [place]. See reference laboratory portion of the EMR for entire report. Clinical Information LMP: Postmenopausal Previous PAP test: Unknown date/findings Material Received ThinPrep-Vaginal/Cervical ----- ------- Signed (signature on file) Esther Gutierres 06/09/23 5200 ----- ------- END OF REPORT Alden Cai CNM LAB CYTOLOGY ORDERABLES F inal Result Performing Organization Address [facility] Co de Phone Number [facility] [address] [place] [address] [phone] * Colonoscopy (05/09/2023 6:56 PM EST) Historical Provider HEALTH MAINTENANCE Final Result * Hepatitis C Antibody Reflex (10/04/2022 9:42 AM EDT) Hepatitis C Antibody Nonreactive Nonreactive [facility] Comment:Antibodies to HCV no t detected; does not exclude early acuteHCV infection. 10/04/2022 9:42 AM EDT 10/04/2022 9:43 AM EDT Emy Goldsmith MD LAB BLOOD ORDERAB LES Final Result Performing Organization Address [facility] Co de Phone Number [facility] [address] [place] [address] [phone] from Last 3 Months or Most Recently Relevant to Health Maintenance Insurance [facility] PRISON OPTIONS (O D-SNP) [place] Care Teams Network Architect Manager Relationship Specialty Start Date End Date Emy Askew MD [address] [place] [phone] PCP - General Internal Medicine 07/25/22
[2024-11-12 22:27] VITALS: BP 154/94; PULSE 89; RESP 16; TEMP 36.5; O2SAT 95
== END 2024-11-12 22:27 | disposition home or self-care (01) ==
PROVIDERS: Physician Assistant Medical; Emergency Provider Emergency Medicine; PCP Student in an Organized Health Care Education/Training Program
DX: R07.9 Chest pain, unspecified (principal); R06.00 Dyspnea, unspecified; J44.9 Chronic obstructive pulmonary disease, unspecified; I10 Essential (primary) hypertension; K21.9 Gastro-esophageal reflux disease without esophagitis; Z79.899 Other long term (current) drug therapy
CPT/HCPCS: 36415; 71046; 80053; 83690; 83735; 84484; 85025; 93005; 99283

== ENCOUNTER → 2024-11-12 16:53 | Outpatient (BNV) | payer OTHER, SELFPAY | PROVIDERS: Emergency Provider Emergency Medicine; PCP Student in an Organized Health Care Education/Training Program; Visit Provider Internal Medicine Cardiovascular Disease | DX: R94.31 Abnormal electrocardiogram [ECG] [EKG] (principal); R07.89 Other chest pain | CPT/HCPCS: 93010 ==

== ENCOUNTER → 2024-11-12 17:22 | Outpatient (BNV) | payer OTHER, SELFPAY | PROVIDERS: Visit Provider Radiology Diagnostic Radiology | DX: J98.11 Atelectasis (principal) | CPT/HCPCS: 71046 ==

== ENCOUNTER 2024-11-24 08:54 | Outpatient (AMB) | payer OTHER, SELFPAY ==
--- NOTE | 2024-11-24 08:57 | A.OFFVIS_ITS ---
Vital Signs 3 11/24/24 08:58 Height 5 ft 2 in Weight 139 lb 5.314 oz BMI 25.5 BP 104/70 Blood Pressure Location Lt brachial Position Sitting Pulse 88 Pulse Source Pulse Oximeter Pulse Oximetry (%) 92 Oxygen Delivery Method Room Air Intake Visit Reasons: T2DM/elevated PTH Intake Note: Patient present today for Type 2 Diabetes Mellitus and elevated PTH. Last Diabetic eye exam: Last exam was on 2023 and has upcoming appt for 03/2025 Last Podiatry Visit: Doesn't have one but would like a referral. Random Glucose: 326 mg/dl HgA1C: 7.9% 09/21/24 [place] Hardware Installer Required: No Accompanied by: Self / Same As Patient Allergies codeine (Codeine) Allergy (Mild, Verified 11/24/24 09:02) BURNING IN CHEST, chest pain sulfamethoxazole (From Bactrim) Allergy (Mild, Verified 11/24/24 09:02) ITCH,RASH Medication List - Last Reconciled 11/24/24 by Haydee Roper MD aspirin 81 mg PO DAILY atorvastatin 20 mg PO BEDTIME blood glucose control high,low (FreeStyle Control solution) Twice a month blood sugar diagnostic (FreeStyle Lite Strips) 4 times a day 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 meter (FreeStyle Lite Meter kit) As directed 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 sensor (FreeStyle Anthony 3 Plus Sensor device) As directed every 15 days calcium carbonate 600 mg PO QAM carvedilol 25 mg PO BID cevimeline 1 cap PO QAM cholecalciferol (vitamin D3) 50 mcg PO DAILY clonazepam 0.5 mg PO DAILY PRN clonidine HCl 0.1 mg PO BID dapagliflozin propanediol (Farxiga) 10 mg PO DAILY diltiazem HCl ER 360 mg PO DAILY docusate sodium (DOK) 100 mg PO DAILY duloxetine 60 mg PO BEDTIME folic acid 1 mg PO DAILY furosemide 20 mg PO DAILY gabapentin 300 mg PO BID hydrocortisone 2.5% (Proctosol HC) 1 appl NC BEDTIME PRN insulin glargine (Lantus Solostar U-100 Insulin) 10 units (0.1 mL) subcut QPM lancets (TRUEplus Lancets) 4 times a day leflunomide 20 mg PO DAILY loratadine 10 mg PO DAILY PRN losartan 100 mg PO DAILY melatonin 10 mg PO BEDTIME PRN naproxen 500 mg PO BID PRN ondansetron 4 mg PO Q8H PRN pen needle, diabetic (Comfort EZ Pen [place]) As directed t inject insulin daily semaglutide (Ozempic) 2 mg (0.75 mL) subcut QWEEK sennosides (senna) 17.2 mg PO DAILY PRN topiramate 25 mg PO BEDTIME HPI Comments Details: 63-year-old female coming in today for follow up of type 2 diabetes mellitus as well as hyperparathyroidism. Last visit: 06/16/2024 Past medical history: Diabetes type 2 hypertension, dyslipidemia, COPD, SOY, GERD, migraines, depression, Sjogren's syndrome, arthritis Diabetes mellitus History of diabetes Diagnosed in 2015 Prior therapy: Trulicity stopped in October 2023 due to worsening control , acarbose 50mg TID before meals. Intolerant of metformin as it gave her reflux Current regimen: Farxiga 10 mg daily Ozempic 2 mg weekly on Wednesdays Lantus 15 units daily at bedtime (unclear who increased it from 10 to 15???) She is very unclear about who increased her Lantus dose, apparently patient increased it herself. Last visit I will I had also asked her to see the early childhood educator aide for sensor start but she no showed to her appointment, and she said she was not able to automotive upholsterer the sensor from the pharmacy because it was not covered. I explained to the patient that she is on insulin so it should be covered, we will reach out to my staff to look into it. She was given a sample by her PCP, report downloaded today. Reports symptoms of hyperglycemia including polyphagia, polyuria, polydipsia. Denies any hypoglycemic symptoms. Freestyle Anthony 3 downloaded from November 30 to 12/13/2024 (report is reading date incorrectly ) She wore it from October 28 to Time CGM active 84% Average glucose 176 mg/dL G [place] 7.5% Glucose variability to 32.9% Within target range 55% High 33% Very high 12% Low 0% Very low 0% Interpretation: She is having some overnight lows, noted to have hyperglycemia the rest of the day with postprandial high readings seen after breakfast, lunch and dinner. Random Glucose: 326 mg/dl HgA1c: 8.2% 12/25/23 a1c 8.1 % 06/16/24 a1c 7.9 % POC 09/21/24 Complications Eye exam: Last Diabetic Eye exam: 04/28, no retinopathy Last Podiatry Visit: 07/26, wants to switch Neuropathy: does report symptoms of neuropathy with burning pain in feet , on gabapentin 400 mg BID Kidney disease: urine tonny /creatinf ratio from elevated at 155 up from 19 back in 2022, GFr >60 from December 2023 Macrovascular complications: No history of macrovascular complications. Statin: on atorvastatin 20 mg daily , LDL 65 from Dec 2023 at goal of <70 but TGL high at 232 SAL/ARB: on losartan 100 mg daily BP at goal today on corge 25 BID , losartan 100 mg daily , furosemide 20 mg daily Exercise: limited she says Diet control: Daughter lives with her and does most of the cooking BF 7 am: bread with eggd, coffee with 2 sugars, 1 creamer Lunch at noon: cereal conrflakes with milk Dinner at 4 pm: rice with beans , pork or chicken No dessert Soda or jim eri not diet twice a day with meals He has never had any hospitalizations for hyperglycemia/hypoglycemia. Hyperparathyroidism Lab from 12/25/2023 showed elevated PTH level of 141.5. Unclear why this was done. Her calcium levels have always been normal mostly anywhere from 9.2-10.1. Albumin of 4 mostly. Once she had a borderline high calcium of 10.2, however albumin was 3.9 so if we corrected this would be 10. No ionized calcium in the chart. Normal vitamin-D level of 53.3. Normal kidney function from December 2023 with the GFR of greater than 60, creatinine of 0.73. DEXA scan September 2023 showed normal bone density. No history of kidney stones, renal ultrasound from June 2023 without any evidence of kidney stones. Mother had kidney stones , sister had kidney stones Surgical menopause with hysterectomy at age 25 for control ??? per patient still had ovaries, started having hot flashes at 50 Vitamin D 2000 units daily on calcium 600 mg daily plus some milk in cereal, no yogurt, cheese often Interval history Labs from 02/17/2024 showed normal calcium of 9.2, with normal ionized calcium of 5.1, phosphorus normal at 3, magnesium of 2.2, normal kidney function, PTH of 96.5, 24 hour urine collection showed 24 hour urine calcium of 177 which for her creatinine level low slightly elevated, fractional excretion of calcium is 0.028 Concern for primary hyperaldosteronism History of hypertension, currently well-controlled on losartan 100 mg daily, Coreg 25 mg b.i.d. and furosemide 20 mg daily. Noted to have history of hypokalemia on chart review with potassium recently at 3 from May 2024 No history of stroke or heart attack. Physical exam General: sitting comfortably in no acute distress HEENT: normocephalic/atraumatic, Neck: supple, symmetrical Cardiac: normal heart sounds Pulm: normal breath sounds B/L, no added breath sounds Abd: not distended, no tenderness Extremities: no edema, no signs of myxedema Neuro: AAO x3, Speech: normal, no facial droop, moving all 4 extremities Skin: no rash Foot exam:06/26 intact sensation to monofilament, intact pulses, intact vibration Laboratory Tests 03/21/18 05/04/18 05/06/18 09:30 08:02 07:00 Creatinine Estimated GFR Glucose (Clinic) Random Glucose Hemoglobin A1c % Calcium 9.6 8.4 D Albumin 4.1 Triglycerides Cholesterol LDL Cholesterol, Calc HDL Cholesterol 25-OH Vitamin D Total TSH PTH Intact Urine Creatinine Urine Microalbumin Microalb/Creat Ratio 11/27/18 12/08/19 12/21/20 08:00 13:14 14:35 Creatinine Estimated GFR Glucose (Clinic) Random Glucose Hemoglobin A1c % 5.7 Calcium 9.9 Albumin 3.8 Triglycerides Cholesterol LDL Cholesterol, Calc HDL Cholesterol 25-OH Vitamin D Total TSH PTH Intact Urine Creatinine Urine Microalbumin Microalb/Creat Ratio 01/21/21 07/12/21 04/11/22 22:07 16:53 15:11 Creatinine Estimated GFR Glucose (Clinic) Random Glucose Hemoglobin A1c % Calcium 9.6 10.1 9.5 Albumin 4.0 Triglycerides Cholesterol LDL Cholesterol, Calc HDL Cholesterol 25-OH Vitamin D Total TSH PTH Intact Urine Creatinine Urine Microalbumin Microalb/Creat Ratio 10/04/22 10/26/22 04/04/23 09:42 13:54 08:42 Creatinine Estimated GFR Glucose (Clinic) Random Glucose Hemoglobin A1c % 8.2 7.8 H Calcium 9.3 10.2 D 9.2 D Albumin 3.8 3.9 3.9 Triglycerides Cholesterol LDL Cholesterol, Calc HDL Cholesterol 25-OH Vitamin D Total TSH PTH Intact Urine Creatinine 115.21 Urine Microalbumin 22.0 Microalb/Creat Ratio 19.0 12/25/23 12/25/23 02/10/24 07:05 07:08 12:52 Creatinine 0.73 Estimated GFR > 60 Glucose (Clinic) 207 H Random Glucose 175 H Hemoglobin A1c % 8.2 H Calcium 9.5 Albumin 4.0 Triglycerides 232 H Cholesterol 154 LDL Cholesterol, Calc 64 HDL Cholesterol 44 25-OH Vitamin D Total 53.3 TSH 1.65 PTH Intact 141.5 H Urine Creatinine 50.21 Urine Microalbumin 78.0 Microalb/Creat Ratio 155.3 H Laboratory Tests 04/11/22 04/04/23 12/25/23 15:11 08:42 07:08 Potassium 3.1 L 3.5 Renin Activity 0.95 Aldosterone 8 Aldosterone/Renin Ratio 8.4 Random Cortisol 11.7 Laboratory Tests 04/04/23 12/25/23 02/17/24 08:42 07:05 06:30 Sodium Potassium Creatinine Estimated GFR Random Glucose Calcium Ionized Calcium Phosphorus Magnesium Albumin Renin Activity 0.95 Aldosterone 8 Renin PTH Intact Ur 24 Hour Volume 1625 Ur Creatinine mg/dL 35.04 Ur Creatinine 24 Hour 0.6 L Microalb/Creat Ratio 155.3 H Ur Sodium 24 Hour 123.5 Ur Calcium 24 Hr 177 Calcium/Creat 24 Hr 321 H Ur Total Volume 1625 Ur Aldosterone 24 Hr 1.3 Urine Creatinine 0.55 02/17/24 06/04/24 11:20 09:51 Sodium 142 143 Potassium 3.4 3.0 L Creatinine 0.82 0.68 Estimated GFR > 60 > 60 Random Glucose 232 H 165 H Calcium 9.2 9.2 Ionized Calcium 5.1 Phosphorus 3.0 Magnesium 2.2 Albumin 3.8 Renin Activity Aldosterone 9 Renin 0.47 PTH Intact 96.5 H Ur 24 Hour Volume Ur Creatinine mg/dL Ur Creatinine 24 Hour Microalb/Creat Ratio Ur Sodium 24 Hour Ur Calcium 24 Hr Calcium/Creat 24 Hr Ur Total Volume Ur Aldosterone 24 Hr Urine Creatinine Imaging BONE DENSITOMETRY 09/24 CLINICAL INDICATION: Encounter for screening for osteoporosis. COMPARISON: Baseline BD dated 11/17/2010. TECHNIQUE: Using a Command Information DXA System (software version: 13.1) manufactured by [employer], dual-energy x-ray absorptiometry was performed of the lumbar spine and left hip. The images are of good technical quality. Summary results are attached. FINDINGS: AP SPINE L1-L4: Current: BMD 1.325 g/cm2, Z-score 2.7, T-score 1.2, normal, 0.4% increase from baseline (<5% change is not significant). Baseline: BMD 1.320 g/cm2. LEFT FEMUR, NECK: Current: BMD 1.085 g/cm2, Z-score 1.8, T-score 0.3, normal. Baseline: BMD 1.110 g/cm2. LEFT FEMUR, TOTAL: Current: BMD 1.168 g/cm2, Z-score 2.4, T-score 1.3, normal, 1.1% decrease from baseline (<5% change is not significant). Baseline: BMD 1.181 g/cm2. IDENTIFIED RISK FACTORS: Recurrent falls. Hysterectomy. Menopause. HISTORY OF FRACTURE: None listed. MEDICATIONS: Calcium supplement and/or multivitamin. Vitamin D. MM/XR DEXA axial skeleton IMPRESSION: 1. DIAGNOSIS: Normal bone density based on the lowest T-score value of 0.3 in the femoral neck applying World Health Organization criteria. 2. 10-YEAR FRACTURE RISK PREDICTION, FRAX: According to the guidelines, FRAX calculation should only be performed on patients in the osteopenia bone density category.?Therefore, FRAX was not performed on this patient.? EXAMINATION: ULTRASOUND RENAL WITH DOPPLER 06/25 CLINICAL INFORMATION: Hypertension; question renal artery stenosis. COMPARISON: None. TECHNIQUE: Real-time grayscale, color Doppler, and duplex Doppler evaluation of the kidneys and renal vasculature was performed. FINDINGS: RENAL MEASUREMENTS: Right: 11.2 x 5.4 x 5.8 cm (Sag x AP x TV) Left: 12.0 x 4.7 x 4.7 cm (Sag x AP x TV) The renal parenchyma appears normal. At the interpolar right kidney, 1.5 cm and 0.7 cm benign, simple cysts are seen, which require no imaging follow-up. At the interpolar aspect of the left kidney, a 2.7 cm benign, simple cyst, which requires no imaging follow-up. No definite renal calculus is seen. There is no hydronephrosis. DOPPLER INTERROGATION: Aorta: 83 cm/sec Right Main Renal Artery: Proximal: 94 cm/sec Mid: 124 cm/sec Distal: 66 cm/sec Left Main Renal Artery: Proximal: 96 cm/sec Mid: 89 cm/sec Distal: 84 cm/sec Renal-Aortic Ratio (RAR): Right: 1.49 Left: 1.16 Bilateral upper pole, interpolar and lower pole segmental arteriolar resistive indices are within normal limits. Bilateral upper pole, interpolar and lower pole segmental arteriolar pulse doppler waveforms are unremarkable, with uniformly rapid upstrokes and no parvus et tardus configuration. US/US renal BI IMPRESSION: Unremarkable renal ultrasound including Doppler. No hemodynamically significant renal artery stenosis is noted bilaterally. 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 SOY (obstructive sleep apnea) COPD (chronic obstructive pulmonary disease) Sicca syndrome Constipation Alopecia Sjogrens syndrome Osteoarthritis Rheumatoid arthritis Fibromyalgia Back pain Difficulty swallowing GERD (gastroesophageal reflux disease) Depression Asthma Elevated cholesterol HTN (hypertension) Surgical History History of laryngoscopy Hx of hemorrhoidectomy History of bladder suspension procedure Hx of dilation and curettage Hx of tubal ligation History of repair of left rotator cuff Hx of colonoscopy History of esophagogastroduodenoscopy (EGD) Family History Father Cancer Mother Heart disease Diabetes Social History Household Members: Children and Other Household Members Other:: daughter, grandkids Are you a primary career guidance technician to a significant other at home: No Do you presently have visiting nurse or other home services: No Alcohol intake: never Patient Tobacco Use Status: Never used Tobacco e-Cigarette/Vaping Use: Never Used Second Hand Smoke Exposure: No 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al status: disabled 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 Physical Exam Vital Signs: Last Vital Signs Pulse 88 11/24/24 08:58 BP 104/70 11/24/24 08:58 Pulse Ox 92 11/24/24 08:58 Oxygen Delivery Method Room Air 11/24/24 08:58 BMI result Body Mass Index 25.5 Office Procedures Glucose Monitoring Details Details: See [facility] [address] - Glucose monitoring, continuous-physician I&R Procedure code (CPT) selection complete Assessment & Plan Assessment & Plan (1) DM2 (diabetes mellitus, type 2): Code(s): E11.9 - Type 2 diabetes mellitus without complications Category: Medical Qualifiers: Diabetes mellitus complication detail: with polyneuropathy Diabetes mellitus complication status: with neurologic complications Diabetes mellitus prison insulin use: without prison use Qualified Code(s): E11.42 - Type 2 diabetes mellitus with diabetic polyneuropathy Plan: 63-year-old female coming in today for follow up of type 2 diabetes mellitus now on insulin use with complications of neuropathy. A1c at POC 09/21/2024 7.9% which is down from 8.1% 06/16/2024 which is down from 8.2% on 12/25/2023 up from 7.8% in April 2023 PCP switched from Trulicity to Ozempic in October 2023 and she was titrated on the Ozempic from 0.5 mg weekly to 1 mg weekly January 2024. Increased to 2 mg weekly in June 2024. He is also on Farxiga 10 mg daily. She is very unclear about who increased her Lantus dose, apparently patient increased it herself. Last visit I will I had also asked her to see the early childhood educator aide for sensor start but she no showed to her appointment, and she said she was not able to automotive upholsterer the sensor from the pharmacy because it was not covered. I explained to the patient that she is on insulin so it should be covered, we will reach out to my staff to look into it. She was given a sample by her PCP, report downloaded today. Samples sensor report downloaded today which showed she has been having lows overnight, postprandial hyperglycemia noted blood sugar also elevated in the 300s today. She has been having elevated blood sugars in the 300s mostly that happen after she got her steroid injections. Plan: -continue Ozempic to 2 mg weekly -continue Farxiga 10 mg daily -decrease Lantus from from 15 units daily to 12 units daily -start insulin Humalog 5 units before heaviest meal of the day, per patient this is breakfast -sent a staff message to look into coverage for freestyle Anthony 3+, -make appointment with the educator -continue to monitor blood sugars daily with fasting and prior to administration of insulin Humalog -last visit I also placed rv detailer referral placed, she does have some dietary indiscretion, counseled regarding eliminating soda and lowering sugar in coffee, we will also have her see rv detailer , patient has not meet this appointment (2) HTN (hypertension): Code(s): I10 - Essential (primary) hypertension Category: Medical Qualifiers: Hypertension type: essential hypertension Qualified Code(s): I10 - Essential (primary) hypertension Plan: Blood pressure at goal today. It seems like at some point her blood pressure was uncontrolled, she is currently on losartan 100 mg daily, furosemide 20 mg daily carvedilol 25 mg b.i.d.. She was being worked up for resistant hypertension which showed normal renal Doppler. She was noted to have a suppressed renin of 0.95, with a 1 evidence of low potassium of 3.1, otherwise normal potassium levels. Aldosterone was 8. with a suppressed renin while someone is on an Sal or Arb such as losartan, as suspicious. We did a baseline 24 hour urine collection as you were evaluating her for hypercalciuria, that collection in February 2025, her aldosterone was low at 1.3 because sodium was not high enough. Last visit I had asked her to do a salt loading test, patient has not done this workup. At this time today her diabetes is taking priority. We will address this fastings sugars are more stable. Plan: -even if aldosterone is not elevated, given suppressed renin, she might benefit from MRA antagonist such as spironolactone for low renin hypertension (3) Hyperparathyroidism: Code(s): E21.3 - Hyperparathyroidism, unspecified Category: Medical Plan: Lab from 12/25/2023 showed elevated PTH level of 141.5. Unclear why this was done. Her calcium levels have always been normal mostly anywhere from 9.2-10.1. Albumin of 4 mostly. Once she had a borderline high calcium of 10.2, however albumin was 3.9 so if we corrected this would be 10. No ionized calcium in the chart. Normal vitamin-D level of 53.3. Normal kidney function from December 2023 with the GFR of greater than 60, creatinine of 0.73. DEXA scan September 2023 showed normal bone density. No history of kidney stones, renal ultrasound from June 2023 without any evidence of kidney stones. Mother had kidney stones , sister had kidney stones Given normal vitamin-D level, this is not secondary hyperparathyroidism. Kidney function is on so unremarkable. Labs from 02/17/2024 showed normal calcium of 9.2, with normal ionized calcium of 5.1, phosphorus normal at 3, magnesium of 2.2, normal kidney function, PTH of 96.5, 24 hour urine collection showed 24 hour urine calcium of 177 which for her creatinine level low slightly elevated, fractional excretion of calcium is 0.028. I do not think the 24 hour urine calcium level is high enough to cause hyperparathyroidism. Most likely differential would be normocalcemic hyperparathyroidism. Given that her kidney function in with GFR greater than 60, no history of kidney stones with clear renal ultrasound recently, normal bone density scan, and no ronald hypercalciuria, for now we will just continue to monitor. Plan: -repeat calcium,, albumin, phosphorus, PTH, ionized calcium, vitamin-D levels in 6 months sometime early 2025 Plan I spent 30 minutes in reviewing the record, seeing the patient and documenting in the medical record. 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) use of insulin Medications: New 2 insulin lispro (Humalog KwikPen (U-100) Insulin) 5 units of insulin 15 mins before breakfast 5 units (0.05 mL) subcut DAILY 3 mL 3RF Changed 2 From pen needle, diabetic (Comfort EZ Pen [place]) As directed t inject insulin daily 100 ea 2RF To pen needle, diabetic (Comfort EZ Pen [place]) As directed t inject insulin twice daily 100 ea 5RF From insulin glargine (Lantus Solostar U-100 Insulin) 10 units (0.1 mL) subcut QPM 3 mL 3RF To insulin glargine (Lantus Solostar U-100 Insulin) 12 units (0.12 mL) subcut QPM 3 mL 3RF Patient Instructions: -continue Ozempic to 2 mg weekly -continue Farxiga 10 mg daily -reduce insulin Lantus to 12 units daily -start insulin humalog 5 units 15 mins before heaviest meal of day (breakfast) -check blood sugars twice a day -supervisor rice milling sensor from pharmacy -establish with Sujata Coding Level of Care Code Est Pt Level 4 (41885) Diagnoses Type 2 diabetes mellitus with diabetic polyneuropathy, without long-term current use of insulin E11.42 Diabetes mellitus complication detail: with polyneuropathy Diabetes mellitus complication status: with neurologic complications Diabetes mellitus prison insulin use: without long term care phlebotomist use Essential hypertension I10 Hypertension type: essential hypertension Hyperparathyroidism E21.3 CPT Codes Details - CPT: 96336 - Glucose monitoring, continuous-physician I&R ([id number]) Time Spent (min) 30
[2024-11-24 08:58] VITALS: BP 104/70; PULSE 88; O2SAT 92; BMI 25.5
--- OUTSIDE RECORDS SUMMARY | 2024-11-24 10:08 | XMS_ITS | Encounter Summary ---
Author Organization [employer] Address [address] [place] [address] [address] [place] [address] Care Team Providers Care Nitro Man Name Role Phone [facility] Primary Care Provider [phone] Emy Askew MD Primary Care Pro vider Reason for Visit * Reason Onset Date Comments VISION 03/13/2022 Encounter Details Date Type Department Care Team ([facility] st Contact Info) Description 03/13/2022 Telephone [facility] [address] [place] [address] [facility] [address] [place] [address] VISION Social History Tobacco Use Types Packs/Day [...] center regarding an eye exam. Please contact [phone] documented in this encounter Plan of Treatment Upcoming Encounters Date Type Department Care Team (Late st Contact Info) Description 11/24/2024 10:45 AM EDT Office Visit [facility] [address] [place] [address] Emy Askew MD [address] [place] [address] 03/19/2025 9:30 AM EST Office Visit [facility] [address] [place] [address] Tobias, Rachel, OD [address] [place] [address] documented as of this encounter Visit Diagnoses Diagnosis Diabetes 1.5, managed as type 2 (CMS/HCC) documented in this encounter Care Teams Nitro Man Relationship Specialty Start Date End Date Kenya Sol FNP [address] [place] [address] PCP - General Family Medicine 01/22/22 07/24/22 Emy Askew MD [address] [place] [id number] PCP - General Internal Medicine 07/25/22 documented as of this encounter
--- OUTSIDE RECORDS SUMMARY | 2024-11-24 10:08 | XMS_ITS | Clinical Summary ---
Author Organization [address] [facility] Address [address] [place] [address] Phone Care Team Providers Care Emr Specialist Name Role Phone Berkley Bird MD Primary Care Provider [phone] Allergies Active Allergy Reactions Criticality Noted Date [...] mmol/L LAB CHEMISTRY METHOD 04/06/2024 6:42 PM [facility] Potassium 3.5 3.5 - 5.5 mmol/L LAB CHEMISTRY METHOD 04/06/2024 6:42 PM [facility] Chloride 102 96 - 110 mmol/L LAB CHEMISTRY METHOD 04/06/2024 6:42 PM [facility] CO2 31 21 - 32 mmol/L LAB CHEMISTRY METHOD 04/06/2024 6:42 PM [facility] Anion Gap 5 3 - 11 LAB CHEMISTRY METHOD 04/06/2024 6:42 PM [facility] Glucose 183(H) 70 - 100 mg/dL LAB CHEMISTRY METHOD 04/06/2024 6:42 PM [facility] BUN 17 5 - 25 mg/dL LAB CHEMISTRY METHOD 04/06/2024 6:42 PM [facility] Creatinine 0.94 0.50 - 1.10 mg/dL LAB CHEMISTRY METHOD 04/06/2024 6:42 PM [facility] eGFR 67 >=60 mL/min/1. 73m2 LAB CHEMISTRY METHOD 04/06/2024 6:42 PM [facility] Comment:Calculation based on the Chronic Kidney Disease Epidemiology Collaboration (CKD-EPI) equation refit without adjustment for race. BUN/Creatinine Ratio 18.1 LAB CHEMISTRY METHOD 04/06/2024 6:42 PM [facility] Calcium 10.3 8.5 - 10.5 mg/dL LAB CHEMISTRY METHOD 04/06/2024 6:42 PM [facility] AST (SGOT) 15 10 - 42 unit/L LAB CHEMISTRY METHOD 04/06/2024 6:42 PM [facility] ALT (SGPT) 22 10 - 60 unit/L LAB CHEMISTRY METHOD 04/06/2024 6:42 PM [facility] Alkaline Phosphatase 140(H) 42 - 121 unit/L LAB CHEMISTRY METHOD 04/06/2024 6:42 PM [facility] Total Protein 7.6 6.0 - 8.0 g/dL LAB CHEMISTRY METHOD 04/06/2024 6:42 PM [facility] Albumin 3.6 3.2 - 5.0 g/dL LAB CHEMISTRY METHOD 04/06/2024 6:42 PM [facility] Total Bilirubin 0.3 0.0 - 1.4 mg/dL LAB CHEMISTRY METHOD 04/06/2024 6:42 PM [facility] Blood Venous blood specimen / Unknown Venipuncture / Unknown 04/06/2024 2:00 PM EST 04/06/2024 2:00 PM EST us Magen Velasco DPM LAB BLOOD ORDERABLES Final Result [facility] [address] [place] [address], [place] [phone] from Last 3 Months or Most Recently Relevant to Health Maintenance Insurance [facility] MEDIC[facility] Member Subscriber Plan / Payer (Ef fective 2023-Present) Name:Jennifer Payton Relation to Subscriber:Self Name:Jennifer Palmer Payer ID:[id number] Group ID:[id number] Type:Not on file Address: [place] [address] [place] [id number] Care Teams Emr Specialist Relationship Specialty Start Date End Date Berkley Bird MD [address] [address] PCP - General Internal Medicine 02/20/24
--- OUTSIDE RECORDS SUMMARY | 2024-11-24 10:08 | XMS_ITS | Encounter Summary ---
Author Organization [employer] Address [address] [place] [address] Care Team Providers Care Building Architectural Designer Name Role Phone Emy Askew MD Primary Care Pro vider Reason for Visit * Reason Onset Date Comments Triage 07/31/2022 Encounter Details Date Type Department Care Team ([facility] st Contact Info) Description 07/31/2022 Telephone [facility] MEDICINE [address] [place] [address] Emy Askew MD [address] [place] [address] Triage Social History Tobacco Use Types Packs/Day [...] The caller accepted this outcome Patient speaks slovak. documented in this encounter Plan of Treatment Upcoming Encounters Date Type Department Care Team (Late st Contact Info) Description 11/24/2024 10:45 AM EDT Office Visit [facility] MEDICINE [address] [place] [address] Emy Askew MD [address] [place] [address] 03/19/2025 9:30 AM EST Office Visit [facility] OPTOMETRY [address] [place], [place] [id number] Rachel Collado, OD [address] [place] [address] documented as of this encounter Visit Diagnoses Not on filedocumented in this encounter Care Teams Building Architectural Designer Relationship Specialty Start Date End Date Emy Askew MD [address] [place] [address] PCP - General Internal Medicine 07/25/22 documented as of this encounter
--- OUTSIDE RECORDS SUMMARY | 2024-11-24 10:08 | XMS_ITS | Encounter Summary ---
Author Organization [employer] Address [address] [facility] [address] [place] [address] Care Team Providers Care Commercial Counsel Name Role Phone Emy Askew MD Primary Care Pro vider Encounter Details Date Type Department Care Team ([facility] st Contact Info) Description 02/23/2024 Orders Only [facility] MEDICINE [address] [place] [address] Provider, MD Waylon Social History Tobacco Use [...] Description 11/24/2024 10:45 AM EDT Office Visit [facility] MEDICINE [address] [place] [address] Emy Askew MD [address] [place] [address] 03/19/2025 9:30 AM EST Office Visit [facility] OPTOMETRY [address] [place] [address] Tobias, Rachel, OD [address] [place] [address] documented as of this encounter Procedures Procedure [...] as of this encounter Care Teams Commercial Counsel Relationship Specialty Start Date End Date Emy Askew MD [address] [place] [id number] PCP - General Internal Medicine 07/25/22 documented as of this encounter
--- OUTSIDE RECORDS SUMMARY | 2024-11-24 10:08 | XMS_ITS | Encounter Summary ---
Author Organization [employer] Address [address] [place] [address] Care Team Providers Care Final Inspector Name Role Phone Cyn Bosch MD Primary Care Provider Michelle vtedith [facility] Primary Care Provider [phone] Emy Askew MD Primary Care Pro vider Encounter Details Date Type Department Care Team (Latest Contact Info) Description 09/30/2018 Abstract [facility] CONVERSIONS Dental, Provider, DDS Social History [...] 10:45 AM EDT Office Visit [facility] MEDICINE [address] [place] [address] Emy Askew MD [address] [place] [address] 03/19/2025 9:30 AM EST Office Visit [facility] OPTOMETRY [address] [place] [address] Rachel Collado, OD [address] [place] [address] documented as of this encounter Visit Diagnoses Not on filedocumented in this encounter Care Teams Final Inspector Relationship Specialty Start Date End Date Cyn Bosch MD PCP - General Family Medicine 08/20/19 01/21/22 BlairKenya FNP [address] [place] [id number] PCP - General Family Medicine 01/22/22 07/24/22 Emy Aksew MD [address] [place] [id number] PCP - General Internal Medicine 07/25/22 documented as of this encounter
--- OUTSIDE RECORDS SUMMARY | 2024-11-24 10:08 | XMS_ITS | Clinical Summary ---
Author Organization [facility] Address [address] [place] [address] 7 [place] [address] Care Team Providers Care Needle Punch Operator Name Role Phone Emy Askew MD [...] daily. Active D3 Super Strength 50 MCG (2000 UT) capsuleIndicatio ns:Vitamin D deficiency, unspecified TAKE 1 CAPSULE BY MOUTH EVERY MORNING 90 capsule 1 025 Active TRUEplus Lancets 33G misc USE DIRECTED TO TEST BLOOD SUGAR FOUR TIMES DAILY 100 each Active Ventolin HFA 108 (90 Base) MCG/ACT inhaler INHALE 2 PUFFS BY MOUTH EVERY 6 HOURS NEEDED FOR WHEEZING 18 g 2 025 Active docusate sodium (Colace) 100 [...] needle 07/17 ) 31G X 8 mm misc Daily use 100 each 12 025 2025 Active Continuous Glucose Surgical Instrument Repair Specialist (FreeStyle Anthony 3 [place]) deviceIndication s:Type 2 diabetes mellitus without complication, 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) 1 each Once per day. Use as directed for CGM 1 each Active Continuous Glucose Sensor (FreeStyle Anthony 3 Plus Sensor) miscIndications: Type 2 diabetes mellitus without complication, unspecified whether fpc insulin use ([facility]) 1 each every 15 days. 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) USE DIRECTED FIVE TIMES DAILY 100 each 5 025 Active cevimeline (Evoxac) 30 MG capsule [...] NEEDED FOR CONSTIPATION 180 tablet 1 Active carvedilol (Coreg) 25 MG tabletIndication s:Benign essential hypertension TAKE 1 TABLET BY MOUTH TWICE DAILY IN THE MORNING AND IN THE EVENING 60 tablet 2 Active cloNIDine (Catapres) 0.2 MG tablet TAKE 1 TABLET BY MOUTH TWICE DAILY IN THE MORNING AND IN THE EVENING 60 tablet 3 Active Aspirin EC Adult Low Dose 81 MG EC tablet TAKE 1 TABLET BY MOUTH EVERY MORNING 90 tablet 1 2024 Discontinued calcium carbonate 1500 (600 Ca) MG tabletIndication s:Benign essential hypertension TAKE 1 TABLET BY MOUTH EVERY MORNING 90 tablet 1 025 2024 Discontinued loratadine (Claritin) 10 MG tablet TAKE 1 TABLET BY MOUTH EVERY DAY NEEDED FOR ALLERGIES 90 tablet 1 2024 Discontinued senna (Senokot) 8.6 MG tablet TAKE 2 TABLETS BY MOUTH EVERY DAY NEEDED FOR CONSTIPATION 180 tablet 025 2024 Discontinued(R eorder (will not trigger notification to Pharmacy)) cloNIDine (Catapres) 0.2 MG tablet TAKE 1 TABLET BY MOUTH TWICE DAILY IN THE MORNING AND IN THE EVENING 60 tablet 3 025 2024 Discontinued losartan (Cozaar) 100 MG tablet TAKE 1 TABLET BY MOUTH EVERY MORNING 90 tablet 025 2024 Discontinued carvedilol (Coreg) 25 MG tabletIndication s:Benign essential hypertension TAKE 1 TABLET BY MOUTH TWICE DAILY IN THE MORNING AND IN THE EVENING 60 tablet 2 025 2024 Discontinued Active Problems Problem Noted [...] referred by ENT for further eval in [place] but never went -referred again to ENT [...] referred by ENT for further eval in [place] but never went -referred again to ENT [...] w RA / Sjogren's disease, follows w physician assistant surgery - Continue care w specialist -on leflunomide and MTX Assessment & Plan (10/23/2022 5:23 PM EDT): Pt w RA / Sjogren's disease, follows w physician assistant surgery - Continue care w specialist -on leflunomide and MTX Assessment & Plan (09/24/2022 8:33 PM EDT): Pt w RA / Sjogren's disease, follows w physician assistant surgery - Continue care w specialist Bilateral post-traumatic [...] old age home -- I spoke w rehabilitation caseworker today and they will come to speak w pt to give info. Was told that there is no need to refer to CM for this. Type 2 diabetes mellitus without complication Assessment & Plan (12/06/2022 6:16 AM EDT): 09/2022 HbA1C 8.2<---8.7, CBG 248., total ch 169, trig 324( in fasting) ,HDL 36,LDL 69, Microalb neg Used to follow w cloth feeder, but lost care. Not on metformin for [...] - to f in 1 y. - Corporate Counsel: seen in 11/2022 Assessment & Plan (10/23/2022 5:46 PM EDT): 09/2022 HbA1C 8.2<---8.7, CBG 248., total ch 169, trig 324( in fasting) ,HDL 36,LDL 69, Microalb neg Used to follow w cloth feeder, but lost care. Not on metformin for [...] - to f in 1 y. - Corporate Counsel: referred today Assessment & Plan (09/24/2022 8:51 PM EDT): Today HbA1C 8.7, CBG 248. Used to follow w cloth feeder, but lost care. - DM2 labs. - Will consider increasing Trulicity at her next appt. - Pt not currently on Metformin, but used to be in the past. Will check at her next appt, and if she can tolerate it, will resume Rx. - Ophthalmology 07/2022 - to f in 1 y. - Corporate Counsel: will refer at next visit. Varicose veins of lower extremity 07/08/2017 Assessment & Plan (10/23/2022 5:12 PM EDT): Pt w lower extremity edema trace from 1+ before , possibly from Cardiazem and venous insufficiency. - Advised to use compression stockings,--started using with noted improved LE edema -I confirmed today w her semaphore operator-Dr Watkins #[phone] that pt does not have CHF and [...] (12/06/2022 6:19 AM EDT): Pt following with physician assistant surgery. Pt w consistently dry mouth. From med [...] for unclear reasons. - PT following w semaphore operator actively w on and off chest discomfort. [...] mg in pm - PT following w semaphore operator -will f BP in next 3 to 4 weeks Assessment & Plan (09/24/2022 8:43 PM EDT): BP slightly elevated at 144/94 - Holter 2019 neg. -echocardiogram 2018The left ventricular systolic function is normal. The visually estimated ejection fraction is between 60-65%. -stress test 2019 : nondiagnostic EKG For ischemia. - Will monitor BP manually at next visit. - PT following w semaphore operator Chronic constipation 12/24/2016 Gastroesophageal reflux disease without [...] in 2016 here . I called her semaphore operator today and he reports last EKG was normal as well Promotions Producer -Dr Watkins states given QTC < 500 [...] and leflunomide ( if ok wit her physician assistant surgery)-pt to ask and Cymbalta if taking in am. Hold am of surgery lasix,amytriptiline,lisinopril .Hold ASA 5 days prior procedure and avoid NSAIDS 7 days prior procedure. -will rec to have post op EKG as rec by her semaphore operator for noted prolonged QTC -will rec to [...] Encounters Date Type Department Care Team Description 11/24/2024 Orders Only GENERIC EXTERNAL DATA DEPARTMENT Provider, Generic External Data 11/23/2024 Telephone [facility] [address] [place] [address] Emy Askew MD chart prep 11/21/2024 Refill [facility] [address] [place] [address] Emy Askew MD Benign essential hypertension 11/17/2024 Patient Outreach [facility] [address] [place] [address] Emy Askew MD Pre-visit Planning (LVM ) 10/29/2024 Refill [facility] [address] [place] [address] Lucina Haro MD 10/29/2024 Refill [facility] [address] [place] [address] Emy Askew MD 10/26/2024 Refill [facility] [address] [place] [address] Lucy Main MD Benign essential hypertension 10/19/2024 9:30 AM EDT Clinical Support [facility] [address] [place] [address] Kaylen Mane, GARY Hyperlipidemia associated with type 2 diabetes mellitus ([facility]) 10/19/2024 Travel 10/18/2024 Telephone [facility] [place] [address] Emy Askew MD Med Refill 10/16/2024 Travel 10/12/2024 Telephone [facility] [place] [place] [address] Emy Askew MD Prior Authorization (Ozempic) 10/08/2024 Refill [facility] [place] [address] Lucy Main MD Type 2 diabetes mellitus without complication, unspecified whether fpc insulin use ([facility]) 10/01/2024 1:00 PM EDT Clinical Support [facility] [place] [place] [address] Akilah Maradiaga, GARY Type 2 diabetes mellitus without complication, unspecified whether fpc insulin use ([facility]) 10/01/2024 Travel 09/29/2024 Telephone [facility] [place] [place] [address] Doris Henry, GARY CGM 09/28/2024 Refill [facility] [place] [address] Keely Lutz MD 09/19/2024 Results Follow-Up [address] [place] [address] Emy Askew MD Comprehensive Metabolic Panel, Magnesium, MR Abdomen w/ and w/o Contrast 09/19/2024 Orders Only [facility] [place] [address] Emy Askew MD Hypokalemia (Primary Dx) 09/11/2024 9:30 AM EDT Office Visit [facility] [place] [address] Emy Askew MD Benign essential hypertension (Primary Dx); Type 2 diabetes mellitus without complication, 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); Poor memory; Alopecia of scalp; Biliary calculus of other site without obstruction; Hypokalemia 09/11/2024 Telephone [facility] [address] [place] [address] Akilah Maradiaga RNplastics heat welder 09/11/2024 Travel 09/10/2024 Telephone [facility] [address] [place], [place] [phone] Emy Askew MD Chart Prep 08/30/2024 Refill [facility] [address] [place], [place] [phone] Florin Hammond MD Chronic constipation 08/27/2024 Refill [facility] [address] [place], [place] [phone] Emy Askew MD Benign essential hypertension from Last 3 Months Immunizations Immunization Administration [...] 10:45 AM EDT Office Visit [facility] [address] [place] [address] Emy Askew MD [address] [place] [address] 03/19/2025 9:30 AM EST Office Visit [facility] OPTOMETRY [address] [place] [address] Rachel Collado, OD [address] [place] [address] Health Maintenance Due Date Last Done Comments [...] 05/11/2024 11/12/2023, 024 Dental X-Ray: Bitewings 06/10/2024 06/10/19, 03/01/2023, 10/26/2021, Additional history exists SDOH Screening [...] Screening 09/11/2025 09/11/2024 Eye Exam 01/07/2026 01/08/2024, 110 08/2023, 01/08/2024, [...] Associated Diagnosis Comments GLUCOSE, WHOLE BLOOD Routine 11/24/2024 9:04 AM EDT XR PELVIS 1-2 VIEWS Routine 10/06/2024 3 :02 PM EDT MR ABDOMEN W AND WO CONTRAST Routine 09/24/2024 2:04 AM EDT Renal cyst MAGNESIUM Routine 09/19/2024 8:28 AM EDT Renal cyst COMPREHENSIVE METABOLIC PANEL Routine 09/19/2024 8:28 AM EDT Renal cyst POCT GLYCATED HEMOGLOBIN, TOTAL Routine 09/11/2024 9:28 AM EDT Type 2 diabetes mellitus without complication, unspecified whether fpc insulin use (CMS/HCC) POCT GLUCOSE Routine 09/11/2024 9:28 AM EDT Type 2 diabetes mellitus without complication, 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 (CMS/HCC) BI MAMMOGRAM SCREENING TOMOSYNTHESIS BILATERAL Routine 03/17/2024 1:00 PM EST LIPID PANEL, STANDARD Routine 12/25/2023 7:08 AM EDT Annual physical exam ALBUMIN, RANDOM URINE W/CREATININE Routine 12/25/2023 7:05 AM EDT Annual physical exam BITEWING - SINGLE RADIOGRAPHIC IMAGE Routine 06/10/2023 3:30 PM EDT Periodontal disease Fractured dental advent with loss of material HPV MRNA E6/E7 [...] Maintenance Results * (ABNORMAL) Glucose, Whole Blood (11/24/2024 9:04 AM EDT) Glucose, Whole Blood 326(H) 60 - 115 mg/dL [facility] Comment:METER #: [id number] Testing performed in the Endocrinology Department [address] , [address], [facility]. 11/24/2024 9:04 AM EDT 11/24/2024 9:07 AM EDT us Generic External Data Provider LAB BLOOD ORDERAB LES Final Result [facility] [address] [place] [phone] * XR Pelvis 1-2 Views (10/06/2024 3:02 PM EDT) Anatomical Region Laterality Modality Body, Pelvis Radiographic Karla ging 10/06/2024 3:02 PM EDT Narrative 10/06/2024 3:03 PM EDT [facility] [address] [place] [address] XRay Report Signed Patient: Jennifer Palmer MR#: [id number] 0 : 1960 Acct:[id number] Age/Sex: 64 / F ADM Date: 10/06/24 Loc: HOPRASHANTX Attending Dr: Amada Macias PA-C Ordering Physician: Amada Macias PA-C Date of Service: 10/06/24 Procedure(s): XR pelvis 1-2V Accession Number(s): [id number] cc: Amada Macias PA-C; Emy Askew MD [...] 10/06/24 1503 DD/ 1502 TD/TT: 10/06/24 1502 Battery Mechanic: Procedure Note Donotuseinterpreter, Image - 10/06/2024 [facility] [address] [place] [address] [place] [address] XRay Report Signed Patient: Jennifer PalmerMR#: [id number] 0 : 1960cct:[id number] Age/Sex: 64 / FADM Date: 10/06/24 Loc: JAMISON Attending Dr: Amada Macias PA-C Ordering Physician: Amada Macias PA-C Date of Service: 10/06/24 Procedure(s): XR pelvis 1-2V Accession Number(s): [id number] cc: Amada Macias PA-C; Emy Askew MD [...] 10/06/24 1503 DD/ 1502 TD/TT: 10/06/24 1502 Battery Mechanic: [facility] External Provider IMG XR PROCEDURES Edited Result - Final * MR Abdomen w/ and w/o Contrast (09/24/2024 2:04 AM EDT) Anatomical Region Laterality Modality Abdomen Magnetic Resonan ce 09/24/2024 2:04 AM EDT Narrative 09/24/2024 2:06 AM EDT [place] [address] Magnetic Resonance Report Signed Patient: Jennifer Palmer MR#: [id number] 0 : 1960 Acct:[id number] Age/Sex: 64 / F ADM Date: 09/23/24 Loc: HO.MRI Attending Dr: Emy Goldsmith MD Ordering Physician: mEy Askew MD Date of Service: 09/23/24 Procedure(s): MR abdomen wo/w con Accession Number(s): [id number] cc: Emy Askew MD CLINICAL HISTORY: rec [...] in OV> 09/24/24204 DD/ 3 TD/TT: 09/24/24203 Battery Mechanic: Procedure Note Donotuseinterpreter, Image - 09/24/[address] [address] Magnetic Resonance Report Signed Patient: Axel Palmer#: [id number] 0 : 9Acct:[id number] Age/Sex: 64 / FADM Date: 09/23/24 Loc: HO.MRI Attending Dr: Emy Goldsmith MD Ordering Physician: Emy Askew MD Date of Service: 09/23/24 Procedure(s): MR abdomen wo/w con Accession Number(s): [id number] cc: Emy Askew MD CLINICAL HISTORY: rec [...] in OV> 09/24/24204 DD/ 3 TD/TT: 09/24/24203 Battery Mechanic: Emy Goldsmith MD IMG MRI PROCEDURE S Edited Result - Final * Magnesium (09/19/2024 8:28 AM EDT) Magnesium 2.0 1.6 - 2.6 mg/dL [facility] Blood Venous blood specimen / Unknown 09/19/2024 8:28 AM EDT 09/19/2024 8:28 AM EDT Emy Goldsmith MD LAB BLOOD ORDERAB LES Final Result [facility] [address] [place], [place] [phone] * (ABNORMAL) Comprehensive Metabolic Panel (09/19/2024 8:28 AM EDT) Sodium 141 135 - 145 mmol/L [facility] Potassium 3.1(L) 3.3 - 5.1 mmol/L [facility] Chloride 108 96 - 108 mmol/L [facility] Carbon Dioxide 26 22 - 29 mmol/L [facility] Anion Gap 10(L) 12 - 20 [facility] Urea Nitrogen (BUN) 14 9 - 16 mg/dL [facility] Creatinine, Serum 0.78 0.5 - 1.4 mg/dL [facility] Estimated Glomerular Filt Rate >60 [facility] Comment:Chronic Kidney Disea se: Estimated GFR < 60 mL/min/1.25k1Wmxzti Kidney Disease: Estimated GFR < 15 mL/min/1.73m2 Glucose 277(H) 60 - 115 mg/dL [facility] Calcium 9.0 8.4 - 10.2 mg/dL [facility] Bilirubin, Total 0.4 0.0 - 1.0 mg/dL [facility] Aspartate Amino Transferase 20 5 - 31 U/L [facility] Alanine Aminotransferase 17 0 - 31 U/L [facility] Total Protein 7.5 6.5 - 8.0 g/dL [facility] Albumin Level 4.1 3.5 - 5.0 g/dL [facility] Alkaline Phosphatase 141(H) 39 - 117 U/L [facility] Blood Venous blood specimen / Unknown 09/19/2024 8:28 AM EDT 09/19/2024 8:28 AM EDT Emy Goldsmith MD LAB BLOOD ORDERAB LES Final Result [facility] [address] [place] [address] [phone] * (ABNORMAL) POCT HGB A1C (09/11/2024 9:28 AM EDT) Hemoglobin A1C 8.3(A) 4.0 - 5.7 % QC Media Lot # [id number] Lot# Expiration Date 166,027 Blood 09/11/2024 9:28 AM EDT Emy Goldsmith MD POINT OF CARE KALEN T ENTER/EDIT ORDERABLES Final Result * (ABNORMAL) POCT Glucose (09/11/2024 9:28 AM EDT) Glucose Blood, POC 325(A) 60 - 200 mg/dL QC Media Lot # [id number] Lot# Expiration Date ,025 Blood Capillary blood specimen / Unknown 09/11/2024 9:28 AM EDT Emy Goldsmith MD POINT OF CARE KALEN T ENTER/EDIT ORDERABLES Final Result * BI Mammogram Screening Tomosynthesis Bilateral (03/17/2024 1:00 PM EST) Anatomical Region Laterality Modality Breast Bilateral Mammography 03/17/2024 1:00 PM EST Narrative 03/28/2024 10:52 AM EST [facility] [address] [place] [address] Mammography Report Signed Patient: Jennifer Palmer MR#: [id number] 0 : 1960 Acct:[id number] Age/Sex: 63 / F ADM Date: 03/17/24 Loc: HO.MAMMO Attending Dr: Emy Goldsmith MD Ordering Physician: Emy Askew MD Re sults: 1Negative Date of Service: 03/17/24 Follow Up: 1 Year From Orig inal Mammogram Procedure(s): MM tomosynthesis screening BI Accession Number(s): [id number] cc: Emy Askew MD EXAMINATION: MM SCREENING [...] 03/28/24 1049 DD/ 1300 TD/TT: 03/17/24 1320 Battery Mechanic: Procedure Note Donotuseinterpreter, Image - 03/28/2024 [facility] [address] [place] [address] Mammography Report Signed Patient: Axel Palmer#: [id number] 0 : 9Acct:[id number] Age/Sex: 63 / FADM Date: 03/17/24 Loc: COLLETTEO Attending Dr: Emy Goldsmith MD Ordering Physician: Emy Askewe sults: 1Negative Date of Service: 03/17/24Follow Up: 1 Year From Orig inal Mammogram Procedure(s): MM tomosynthesis screening BI Accession Number(s): [id number] cc: Emy Askew MD EXAMINATION: MM SCREENING [...] 03/28/24 1049 DD/ 1300 TD/TT: 03/17/24 1320 Battery Mechanic: Emy Goldsmith MD IMG BI PROCEDURES Final Result * (ABNORMAL) Lipid Panel, Standard (12/25/2023 7:08 AM EDT) Triglycerides 232(H) <150 mg/dL [facility] Comment:Desirable Triglyceri de: less than 150 mg/dLBorderline High Triglyceride 150-199 mg/dLHigh Triglyceride: 200-499 mg/dLVery High Triglyceride: greater than or equal to 5OO mg/dL Cholesterol 154 <200 mg/dL [facility] Comment:Desirable Cholestero l: less than 200 mg/dLBorderline High Cholesterol: 200-239 mg/dLHigh Cholesterol: greater than 239 mg/dL LDL Cholesterol Calculated 64 <100 mg/dL [facility] Comment:Desirable LDL: less than 100 mg/dLNear Optimal/Above Optimal LDL: 110- 129 mg/dLBorderline High LDL: 130-159 mg/dLHigh LDL: 160-189 mg/dLVery High LDL: greater than or equal to 190 mg/dL HDL Cholesterol 44 >40 mg/dL [facility] Comment:Desirable HDL: great er than 40 mg/dL Note: This HDL assay may give artificially low results in patients with liver disease. Blood Venous blood specimen / Unknown 12/25/2023 7:08 AM EDT 12/25/2023 7:09 AM EDT us Emy Goldsmith MD LAB BLOOD ORDERAB LES Final Result Performing Organization Address [facility]/ZIP Co de Phone Number [facility] [address] [place] [phone] * (ABNORMAL) Albumin, Random Urine W/Creatinine (12/25/2023 7:05 AM EDT) Creatinine, Urine 50.21 mg/dL [facility] Microalbumin Urine 78.0 mg/L H [facility] Microalbum Creatinine Ratio Ur 155.3(H) <30 ug/mg cr [facility] Comment:Albumin/Creatinine R atio Reference Ranges: Normal: < 30 ug/mg creatinine Microalbuminuria: 30 - 300 ug/mg creatinineClinical Albuminuria: > 300 ug/mg creatinine Urine (Urine, Random) 12/25/2023 7:05 AM EDT 12/25/2023 7:49 AM EDT us Emy Goldsmith MD LAB URINE ORDERAB LES Final Result Performing Organization Address [facility]/ZIP Co de Phone Number [facility] [address] [place] [phone] * HPV mRNA E6/E7 w/Reflex to HPV Genotypes 16, 18/45 (05/27/2023 10:50 AM EDT) HPV nRNA E6/E7 Not Detected Not Detected [facility] Comment:Methodology: Transcr iption-Mediated AmplificationThis assay detects E6/E7 viral messenger RNA (mRNA) from 14high-risk HPV types (16,18,31,33,35,39,45,51,52,56,58,59,66,68).Cervical sources are required for HPV testing.If a vaginal source from a patient who has had atotal hysterectomy with removal of cervix wassubmitted, please contact the testing laboratoryfor alternative testing options.For additional information, please refer [email or web address](This link if provided for information/educational purposes only.)THIS TEST WAS PERFORMED AT:[facility] [place] [phone] CAMARENA MD HPV mRNA E6/E7 [facility] HPV 16 RNA [facility] HPV 18/45 RNA [facility] 05/27/2023 10:5 0 AM EDT 05/28/2023 11:50 AM EDT Alden Cai [facility] LAB CYTOLOGY ORDERABLES F inal Result [facility] [address] [place], [place] [phone] * Pap Smear (05/27/2023 10:50 AM EDT) Swab Cervix uteri structure / Unknown 05/27/2023 10:50 AM EDT 05/28/2023 11:50 AM EDT Narrative [facility] - 06/09/2023 5:49 PM EDT ----- ------- Name: Jennifer Palmer Age/Sex: 62/F : 1960 Unit#: [id number] Attend Dr: ALDEN CAI CNM Re05/27/23 Status: DEP REF Location: [facility] Disch: ----- ------- SPEC : [id number] RECD: 05/28/23-1150 STATUS: CORRIE VELEZ NUM: [id number] PRANAY: 05/27/23-[address]: ALDEN CAI ENTERED: 05/28/23-1305 SP TYPE: Pap Smr OTHR DR: ORDERED: Pap Smear Interpretation Satisfactory for evaluation. Negative for intraepithelial lesion or malignancy. Atrophic. HPV mRNA E6/E7: NOT DETECTED This assay detects E6/E7 viral messenger RNA (mRNA) from 14 high-risk HPV types (16, 18, 31, 33, 35, 39, 45, 51, 52, 56, 58, 59, 66, 68) HPV testing performed by [facility], [place], [place]. See reference laboratory portion of the EMR for entire report. Clinical Information LMP: Postmenopausal Previous PAP test: Unknown date/findings Material Received ThinPrep-Vaginal/Cervical ----- ------- Signed (signature on file) Esther Gutierres 06/09/23 1749 ----- ------- END OF REPORT Alden Cai CN LAB CYTOLOGY ORDERABLES F inal Result Performing Organization Address [facility] Co de Phone Number [facility] [address] [place] [address] [phone] * Colonoscopy (05/09/2023 6:56 PM EST) Historical Provider HEALTH MAINTENANCE Final Result * Hepatitis C Antibody Reflex (10/04/2022 9:42 AM EDT) Hepatitis C Antibody Nonreactive Nonreactive [facility] Comment:Antibodies to HCV no t detected; does not exclude early acuteHCV infection. 10/04/2022 9:42 AM EDT 10/04/2022 9:43 AM EDT Emy Goldsmith MD LAB BLOOD ORDERAB LES Final Result Performing Organization Address [facility] Co de Phone Number [facility] [address] [place] [address] [phone] from Last 3 Months or Most Recently Relevant to Health Maintenance Insurance [facility] (HMO D-SNP) PATRICIA [place] [id number] [place] AD[place] Care Teams Needle Punch Operator Relationship Specialty Start Date End Date Emy Askew MD [address] [place] [phone] PCP - General Internal Medicine 07/25/22
--- OUTSIDE RECORDS SUMMARY | 2024-11-24 10:08 | XMS_ITS | Encounter Summary ---
Author Organization [employer] Address [address] [place] [address] [place] [address] Care Team Providers Care Physician'S Aide Name Role Phone Emy Askew MD Primary Care Pro vider Reason for Visit * Reason Comments Med Refill Encounter Details Date Type Department Care Team ([facility] Contact Info) Description 02/14/2024 Refill [facility] [address] [place] [address] Emy Askew MD [address] [place] [address] Social History Tobacco Use Types Packs/Day Years [...] Description 11/24/2024 10:45 AM EDT Office Visit [facility] MED[facility] [address] [place] [address] Emy Askew MD [address] [place] [address] 03/19/2025 9:30 AM EST Office Visit [facility] OPTOMETRY [address] [place] [address] Tobias, Rachel, OD 230 [place] [address] documented as of this encounter Visit Diagnoses Not on filedocumented in this encounter Additional Health Concerns Assessment Noted Time PHQ-9 Depression Total Score: 10 024 2:37 PM EDT documented as of this encounter Care Teams Physician'S Aide Relationship Specialty Start Date End Date Emy Askew MD [address] [place] [address] PCP - General Internal Medicine 07/25/22 documented as of this encounter
--- OUTSIDE RECORDS SUMMARY | 2024-11-24 10:08 | XMS_ITS | Encounter Summary ---
Author Organization [employer] Address [address] [place] [address] Care Team Providers Care Consumer Marketing Manager Name Role Phone Emy Askew MD Primary Care Pro vider Reason for Visit * Reason Onset Date Comments chart prep 11/23/2024 Encounter Details Date Type Department Care Team ([facility] Contact Info) Description 11/23/2024 Telephone [facility] [address] [place] [address] Emy Askew MD 230 [place] [address] chart prep Social History Tobacco Use Types Packs/Day Years [...] encounter Miscellaneous Notes * Telephone Encounter - Dilma Wakefield [place] - 11/23/2024 10:02 AM EDT Chart Prep Labs: done Images: done Referrals: complete Vaccines due: Covid and Flu Screenings: colonoscopy and foot exam Overdue care gaps: SDOH, PHQ-9, ISAI-7, Oral health screening, and Disability screen documented in this encounter Plan of Treatment Upcoming Encounters Date Type Department Care Team (Late st Contact Info) Description 11/24/2024 10:45 AM EDT Office Visit [facility] [address] [place], [place] [phone] Emy Askew MD 230 [place], [place] [phone] 03/19/2025 9:30 AM EST Office Visit [facility] OPTOMETRY [address] [place], [place] [phone] Rachel Collado, OD 230 [place] [address] documented as of this encounter Visit Diagnoses Not on filedocumented in this encounter Additional Health Concerns Assessment Noted Time PHQ-9 Depression Total Score: 10 024 2:37 PM EDT documented as of this encounter Care Teams Consumer Marketing Manager Relationship Specialty Start Date End Date Emy Askew MD [address] [place] [address] PCP - General Internal Medicine 07/25/22 documented as of this encounter
--- OUTSIDE RECORDS SUMMARY | 2024-11-24 10:08 | XMS_ITS | Encounter Summary ---
Author Organization [employer] Address [address] [place] [address] 7 [place] [address] Care Team Providers Care Copy Center Associate Name Role Phone Kenya Sol DEMAND GENERATOR MANAGER Primary Care Provider [phone] Emy Askew MD Primary Care Pro vider Encounter Details Date Type Department Care Team (Late Contact Info) Description 03/26/2022 Orders Only [facility] [address] [place], [place] [phone] Lizett Cannon LPN Social History Tobacco Use [...] Visit [facility] [address] [place], [place] [phone] Emy Askew MD 230 [place], [place] [phone] 03/19/2025 9:30 AM EST Office Visit [facility] OPTOMETRY [address] [place] [address] [phone] Rachel Collado, OD 230 [place], [place] [phone] documented as of this encounter Visit Diagnoses Not on filedocumented in this encounter Care Teams Copy Center Associate Relationship Specialty Start Date End Date Kenya Sol FNP 230 [place], [place] [phone] PCP - General Family Medicine 01/22/22 07/24/22 Emy Askew MD [address] [place], [place] [phone] PCP - General Internal Medicine 07/25/22 documented as of this encounter
--- OUTSIDE RECORDS SUMMARY | 2024-11-24 10:08 | XMS_ITS | Encounter Summary ---
Author Organization [employer] Address [address] [place] [address] [place] [address] Care Team Providers Care Dry Cell Tester Name Role Phone Emy Askew MD Primary Care Pro vider Reason for Visit * Reason Comments Med Refill Encounter Details Date Type Department Care Team ([facility] st Contact Info) Description 11/21/2024 Refill [facility] [address] [place] [address] Emy Askew MD 230 [place] [address] Benign essential hypertension Social History Tobacco Use Types Packs/Day Years [...] [facility] MEDICINE [address] [place] [address] Emy Askew MD 230 [place] [address] 03/19/2025 9:30 AM EST Office Visit [facility] OPTOMETRY [address] [place] [address] Tobias, Rachel, OD 230 [place] [address] documented as of this encounter Visit Diagnoses Diagnosis Benign essential hypertension Essential hypertension, benign documented in this encounter Additional Health Concerns Assessment Noted Time PHQ-9 Depression Total Score: 10 024 2:37 PM EDT documented as of this encounter Care Teams Dry Cell Tester Relationship Specialty Start Date End Date Emy Askew MD 230 [place] [address] PCP - General Internal Medicine 07/25/22 documented as of this encounter
--- OUTSIDE RECORDS SUMMARY | 2024-11-24 10:08 | XMS_ITS | Encounter Summary ---
Author Organization [employer] Address [address] [place] [address] Care Team Providers Care Principal Archaeologist Name Role Phone Cyn Bosch MD Primary Care Provider Michelle nvedith [facility] Primary Care Provider [phone] Emy Askew MD Primary Care Pro vider Encounter Details Date Type Department Care Team (Latest Contact Info) Description 05/09/2020 Abstract [facility] CONVERSIONS Dental, Provider, DDS Social History Tobacco [...] Description 11/24/2024 10:45 AM EDT Office Visit [facility] MEDICINE 230 [place] [address] Emy Askew MD 230 [place] [address] 03/19/2025 9:30 AM EST Office Visit [facility] OPTOMETRY [address] [place] [address] Rachel Collado, OD 230 [place] [address] documented as of this encounter Visit Diagnoses Not on filedocumented in this encounter Care Teams Principal Archaeologist Relationship Specialty Start Date End Date Cyn Bosch MD PCP - General Family Medicine 08/20/19 01/21/22 [place] FNP [address] [place] [address] PCP - General Family Medicine 01/22/22 07/24/22 Emy Askew MD [address] [place] [address] PCP - General Internal Medicine 07/25/22 documented as of this encounter
--- OUTSIDE RECORDS SUMMARY | 2024-11-24 10:08 | XMS_ITS | Encounter Summary ---
Author Organization [employer] Address [address] [place] [address] Care Team Providers Care Egg Gatherer Name Role Phone Emy Askew MD Primary Care Pro vider Reason for Visit * Reason Onset Date Comments pre-op paperwork 10/18/2022 Encounter Details Date Type Department Care Team ([facility] st Contact Info) Description 10/18/2022 Telephone [facility] [address] [place] [address] Emy Askew MD 230 [place] [address] pre-op paperwork Social History Tobacco Use Types [...] methotrexate and leflunomide??( if ok with her rejoiner)-pt to confirm and Cymbalta if taking in am. Hold am of surgery lasix,amytriptiline,lisinopril ??.HoldASA 5 days prior procedure and avoid NSAIDS 7 days prior procedure. Thanks documented in this encounter Plan of Treatment Upcoming Encounters Date Type Department Care Team (Late st Contact Info) Description 11/24/2024 10:45 AM EDT Office Visit [facility] [address] [place] [address] Emy Askew MD 230 [place] [address] 03/19/2025 9:30 AM EST Office Visit [facility] OPTOMETRY [address] [place], [place] [phone] Rachel Collado, OD 230 [place] [address] documented as of this encounter Visit Diagnoses Not on filedocumented in this encounter Additional Health Concerns Assessment Noted Time PHQ-9 Depression Total Score: 16 023 10:16 AM EDT documented as of this encounter Care Teams Egg Gatherer Relationship Specialty Start Date End Date Emy Askew MD [address] [place] [address] PCP - General Internal Medicine 07/25/22 documented as of this encounter
--- OUTSIDE RECORDS SUMMARY | 2024-11-24 10:08 | XMS_ITS | Encounter Summary ---
Author Organization [employer] Address [address] [place] [address] 7 [place] [address] Care Team Providers Care Burr Sander Name Role Phone [facility] Primary Care Provider [phone] Emy Askew MD Primary Care Pro vider Reason for Visit * Reason Onset Date Comments Med Refill 05/11/2022 Encounter Details Date Type Department Care Team (Late st Contact Info) Description 05/11/2022 Telephone [facility] MEDICINE 230 [place] [address] [facility] 230 [place] [address] Med Refill Social History Tobacco Use Types [...] sent to [facility] [place], [place] - [address] [place] [address] documented in this encounter Plan of Treatment Upcoming Encounters Date Type Department Care Team ([facility] st Contact Info) Description 11/24/2024 10:45 AM EDT Office Visit [facility] MEDICINE [address] [place] [address] Emy Askew MD 230 [place] [address] 03/19/2025 9:30 AM EST Office Visit [facility] OPTOMETRY [address] [place] [address] Tobias, Rachel, OD 230 [place] [address] documented as of this encounter Visit Diagnoses Not on filedocumented in this encounter Care Teams Burr Sander Relationship Specialty Start Date End Date [place] FNP [address] [place] [address] PCP - General Family Medicine 01/22/22 07/24/22 Emy Askew MD [address] [place] [address] PCP - General Internal Medicine 07/25/22 documented as of this encounter
--- OUTSIDE RECORDS SUMMARY | 2024-11-24 10:08 | XMS_ITS | Encounter Summary ---
Author Organization [employer] Address [address] [facility] 7t [place] [address] Care Team Providers Care Reference Test Clerk Name Role Phone Emy Askew MD Primary Care Pro vider Encounter Details Date Type Department Care Team (Late st Contact Info) Description 11/24/2024 Orders Only GENERIC EXTERNAL DATA [...] [facility] MEDICINE [address] [place] [address] Emy Askew MD 230 [place] [address] 03/19/2025 9:30 AM EST Office Visit [facility] OPTOMETRY [address] [place] [address] Rachel Collado, OD 230 [place] [address] documented as of this encounter Procedures Procedure Name Priority Date/Time Associated Diagnosis Comments GLUCOSE, WHOLE BLOOD Routine 11/24/2024 9:04 AM EDT documented in this encounter Results * (ABNORMAL) Glucose, Whole Blood (11/24/2024 9:04 AM EDT) Glucose, Whole Blood 326(H) 60 - 115 mg/dL [facility] Comment:METER #: [id number] Testing performed in the Endocrinology Department [address] , [address], [facility]. 11/24/2024 9:04 AM EDT 11/24/2024 9:07 AM EDT us Generic External Data Provider LAB BLOOD ORDERAB LES Final Result [facility] [address] [place] [address] [phone] documented in this encounter Visit Diagnoses Not on filedocumented in this encounter Additional Health Concerns Assessment Noted Time PHQ-9 Depression Total Score: 024 2:37 PM EDT documented as of this encounter Care Teams Reference Test Clerk Relationship Specialty Start Date End Date Emy Askew MD 230 [place] [address] PCP - General Internal Medicine 07/25/22 documented as of this encounter
--- OUTSIDE RECORDS SUMMARY | 2024-11-24 10:08 | XMS_ITS | Clinical Summary ---
Author Organization [facility] Address [address] [place] [address] Phone Care Team Providers Care Supercharger Mechanic Name Role Phone Mark Foote MD Primary [...] topic Medical Devices Not on [place] [address] [place] [address] C3 [employer]CO [facility] C3 ACO [employer] Care Teams Supercharger Mechanic Relationship Specialty Start Date End Date Mark Foote MD [address] [place] [address] PCP - General Pediatrics 10/15/19 Additional Source Comments The information contained in this document represents components of the legal health record. It is not the complete legal health record.[facility]
--- OUTSIDE RECORDS SUMMARY | 2024-11-24 10:08 | XMS_ITS | Encounter Summary ---
Author Organization [employer] Address [address] [place] [address] 7 [place] [address] Care Team Providers Care Spray Applicator Name Role Phone Kenya Sol SAMPLE HAND Primary Care Provider [phone] Emy Askew MD Primary Care Pro vider Encounter Details Date Type Department Care Team (Late Contact Info) Description 05/28/2022 Orders Only [facility] & PEDS [address] [place], [place] [phone] Candy Miller LPN Social History Tobacco Use [...] 10:45 AM EDT Office Visit [facility] MEDICINE 230 [place], [place] [phone] Emy Askew MD 230 [place], [place] [phone] 03/19/2025 9:30 AM EST Office Visit [facility] OPTOMETRY [address] [place], [place] [phone] Rachel Collado OD 230 [place] [address] documented as of this encounter Visit Diagnoses Not on filedocumented in this encounter Care Teams Spray Applicator Relationship Specialty Start Date End Date Kenya Sol FNP [address] [place] [address] [phone] PCP - General Family Medicine 01/22/22 07/24/22 Emy Askew MD [address] [place] [address] [phone] PCP - General Internal Medicine 07/25/22 documented as of this encounter
--- OUTSIDE RECORDS SUMMARY | 2024-11-24 10:08 | XMS_ITS | Encounter Summary ---
Author Organization [employer] Address [address] [facility] 7t [place] [address] Care Team Providers Care Professor Of Marketing Name Role Phone Emy Askew MD Primary Care Pro vider Encounter Details Date Type Department Care Team ([facility] st Contact Info) Description 08/07/2023 Orders Only [facility] MED [facility] PEDS [address] [place] [address] Valeria Armas FNP [address] [place] [address] Social History Tobacco Use Types Packs/Day Years [...] Description 11/24/2024 10:45 AM EDT Office Visit [facility] MEDICINE 230 [place] [address] Emy Askew MD 230 [place] [address] 03/19/2025 9:30 AM EST Office Visit [facility] OPTOMETRY [address] [place] [address] Tobias, Rachel, OD 230 [place] [address] documented as of this encounter Visit Diagnoses Not on filedocumented in this encounter Additional Health Concerns Assessment Noted Time PHQ-9 Depression Total Score: 16 023 10:16 AM EDT documented as of this encounter Care Teams Professor Of Marketing Relationship Specialty Start Date End Date Emy Askew MD 230 [place] [address] PCP - General Internal Medicine 07/25/22 documented as of this encounter
--- OUTSIDE RECORDS SUMMARY | 2024-11-24 10:08 | XMS_ITS | Encounter Summary ---
Author Organization [facility] Address [address] [facility] [place] [address] Phone Care Team Providers Care Machine Made Shoe Unit Worker Name Role Phone Unknown, Unknown Primary Care Provider Mark Segura MD Primary Care Provider Encounter Details Date Type Department Care Team (Latest Contact Info) Description 05/26/2018 Ancillary Orders [facility] [address] [place] [address] [place] [address] Isidro Watkins, DO [address] [place] [address] Other chest pain Social History Tobacco Use [...] pain documented in this encounter Care Teams Machine Made Shoe Unit Worker Relationship Specialty Start Date End Date Unknown, Unknown, PCP - General 05/15/18 10/14/19 Mark Foote MD [address] [place] [address] PCP - General Pediatrics 10/15/19 documented as of this encounter Additional Source Comments The information contained in this document represents components of the legal health record. It is not the complete legal health record.[facility]
--- OUTSIDE RECORDS SUMMARY | 2024-11-24 10:08 | XMS_ITS | Encounter Summary ---
Author Organization [email or web address] Address [address] [place] [address] 7t [place] [address] Care Team Providers Care Sports Internship Name Role Phone [facility] Primary Care Provider [phone] Emy Askew MD Primary Care Pro vider Reason for Visit * Reason Onset Date Comments Appointment Request 06/07/2022 Encounter Details Date Type Department Care Team ([facility] st Contact Info) Description 06/07/2022 Telephone [facility] MEDICINE [address] [place] [address] [facility] 230 [place] [address] Appointment Request Social History Tobacco Use Types [...] with new provider. Please contact pt at [phone] documented in this encounter Plan of Treatment Upcoming Encounters Date Type Department Care Team (Late st Contact Info) Description 11/24/2024 10:45 AM EDT Office Visit [facility] MEDICINE [address] [place] [address] Emy Askew MD [address] [place] [address] 03/19/2025 9:30 AM EST Office Visit [facility] OPTOMETRY [address] [place] [address] Rachel Collado, OD 230 [place] [address] documented as of this encounter Visit Diagnoses Not on filedocumented in this encounter Care Teams Sports Internship Relationship Specialty Start Date End Date [place], VISITOR SERVICES INFORMATION ASSISTANT [address] [place] [address] PCP - General Family Medicine 01/22/22 07/24/22 Emy Askew MD [address] [place] [address] PCP - General Internal Medicine 07/25/22 documented as of this encounter
--- OUTSIDE RECORDS SUMMARY | 2024-11-24 10:08 | XMS_ITS | Encounter Summary ---
Author Organization [employer] Address [address] [place] [address] Care Team Providers Care Tool Designer Apprentice Name Role Phone Cyn Bosch MD Primary Care Provider Michelle caedith [facility] Primary Care Provider [phone] Emy Askew MD Primary Care Pro vider Encounter Details Date Type Department Care Team (Latest Contact Info) Description 10/26/2021 Abstract [facility] CONVERSIONS Dental, Provider, DDS Social History Tobacco [...] Description 11/24/2024 10:45 AM EDT Office Visit [facility] MEDICINE 230 [place] [address] Emy Askew MD 230 [place] [address] 03/19/2025 9:30 AM EST Office Visit [facility] OPTOMETRY [address] [place] [address] Rachel Collado, OD 230 [place] [address] documented as of this encounter Visit Diagnoses Not on filedocumented in this encounter Care Teams Tool Designer Apprentice Relationship Specialty Start Date End Date Cyn Bosch MD PCP - General Family Medicine 08/20/19 01/21/22 [place] FNP [address] [place] [address] PCP - General Family Medicine 01/22/22 07/24/22 Emy Askew MD [address] [place] [address] PCP - General Internal Medicine 07/25/22 documented as of this encounter
--- OUTSIDE RECORDS SUMMARY | 2024-11-24 10:09 | XMS_ITS | Encounter Summary ---
Author Organization [employer] Address [address] [place] [address] [place] [address] Care Team Providers Care Inker And Opaquer Name Role Phone Emy Askew MD Primary Care Pro vider Reason for Visit * Reason Comments Med Refill Encounter Details Date Type Department Care Team ([facility] st Contact Info) Description 02/09/2023 Refill [facility] MEDICINE [address] [place] [address] Emy Askew MD [address] [place] [address] Social History Tobacco Use Types Packs/Day Years [...] Description 11/24/2024 10:45 AM EDT Office Visit [facility] MEDICINE 230 [place] [address] Emy Askew MD [address] [place] [address] 03/19/2025 9:30 AM EST Office Visit [facility] OPTOMETRY [address] [place] [address] Tobias, Rachel, OD 230 [place] [address] documented as of this encounter Visit Diagnoses Not on filedocumented in this encounter Additional Health Concerns Assessment Noted Time PHQ-9 Depression Total Score: 16 023 10:16 AM EDT documented as of this encounter Care Teams Inker And Opaquer Relationship Specialty Start Date End Date Emy Askew MD [address] [place] [address] PCP - General Internal Medicine 07/25/22 documented as of this encounter
== END 2024-11-24 09:34 | disposition home or self-care (01) ==
LOC: HO.ENCR 08:54
PROVIDERS: PCP Student in an Organized Health Care Education/Training Program; Visit Provider Student in an Organized Health Care Education/Training Program
DX: E11.42 Type 2 diabetes mellitus with diabetic polyneuropathy (principal); I10 Essential (primary) hypertension; E21.3 Hyperparathyroidism, unspecified
CPT/HCPCS: 95251; 99214

== ENCOUNTER → 2024-11-24 08:54 | Outpatient (BNVA) | payer OTHER, SELFPAY | PROVIDERS: PCP Student in an Organized Health Care Education/Training Program; Visit Provider Student in an Organized Health Care Education/Training Program | DX: E11.42 Type 2 diabetes mellitus with diabetic polyneuropathy (principal); E21.3 Hyperparathyroidism, unspecified; I10 Essential (primary) hypertension; Z79.4 Long term (current) use of insulin; Z79.84 Long term (current) use of oral hypoglycemic drugs | CPT/HCPCS: 82947; 99212 ==

== ENCOUNTER 2024-11-26 08:51 | Outpatient (AMB) | payer OTHER, SELFPAY ==
--- OUTSIDE RECORDS SUMMARY | 2024-11-24 10:45 | XMS_ITS | Encounter Summary ---
Author Organization [employer] Address [address] [place] [address] [address] [place] [address] Care Team Providers Care Screen Printing Press Operator Name Role Phone Emy Askew MD Primary Care Pro vider Reason for Referral * Consultation (Routine) - Authorized Specialty Diagnoses / Procedures Referred By Braxton t Referred To Contact Rheumatology Diagnoses Rheumatoid arthritis with positive rheumatoid factor, involving unspecified site ([facility]) Emy Askew MD [address] [place] [address] Phone: tel: fax: [facility] Rheumatology [address] [place] [address] Phone: tel: fax: Referral ID Status Reason Start Date Expiration Date Visits Requested Visits Authorized [id number] Authorized Specialty Services Required 11/24/2024 11/24/2025 1 1 * Imaging (Routine) - Pending Review Specialty Diagnoses / Procedures Referred By Braxton t Referred To Contact Radiology Diagnoses Lesion of tonsil Procedures CT Soft Tissue Neck w/ Contrast Emy Askew MD [address] [place] [address] Phone: tel: fax: [facility] [address] [place] [address] Phone: tel: fax: Referral ID Status Reason Start Date Expiration Date V isits Requested Visits Authorized [id number] Pending Review 11/24/2024 11/24/2025 1 1 * Medications - Closed Specialty Diagnoses / Procedures Referred By Braxton moore Referred To Contact Diagnoses Neck pain Emy Askew MD [address] [place] [address] Phone: tel: fax: Referral ID Status Reason Start Date Expiration Date Visits Re quested Visits Authorized [id number] Closed 1 1 Encounter Details Date Type Department Care Team (Latest Contact Info) Description 11/24/2024 10:45 AM EDT Office Visit [facility] [address] [place] [id number] Emy Askew MD [address] [place] [address] Lesion of tonsil (Primary Dx); Rheumatoid arthritis with positive rheumatoid factor, involving unspecified site ([facility]); Neck pain; Encounter for immunization; Health care maintenance; Sialoadenitis of submandibular gland; Type 2 diabetes mellitus without complication, unspecified whether press tender long goods insulin use ([facility]); Hypokalemia; Healthcare maintenance; Poor memory; Elevated alkaline phosphatase level; Benign essential hypertension Social History Tobacco Use [...] Answer Date Recorded Patient Health Questionnaire-9 Score 15 11/24/2024 Patient Health Questionnaire-9 Score 15 11/24/2024 Last PHQ-9: Questionnaire Data Not on file 0 11/24/2024 Housing Stability Answer Date Recorded What is your housing situation today? I have butch sing 11/24/[address] you li ve. Do you have problems with any of the following? None of the above 11/24/2024 Food Insecurity Answer Date Recorded Within the past 12 months, y ou worried that your food would run out before you got money to buy more: Never True 11/24/2024 Within the past 12 months,th e food you bought just didn't last and you didn't have enough money to get more: Never True Transportation Answer Date Recorded In the past 12 months, has l ack of transportation kept you from medical appts, meetings, work or from getting things needed for daily living? No 11/24/2024 Utilities Answer Date Recorded In the past 12 months, has t he electric, gas, oil or water company threatened to shut off services in your home? No 11/24/2024 Depression Answer Date Recorded Patient Health Questionnaire-2 Score 6 11/24/2024 Internet Access Answer Date Recorded Internet Access Q1 No 11/24/2024 Internet Access Q2 I do not want or need it 11/03 Comments No Sex and Gender Information Value Date Recorded Sex Assigned at Female 01/01/2022 10:15 AM EDT Legal Sex Female 10:15 AM EDT Gender Identity Female 01/01/2022 10:15 AM EDT Sexual Orientation Straight 01/01/2022 10 :15 AM EDT documented as of this encounter Last Filed Vital Signs Vital Sign Reading Time Taken Comments Blood Pressure 118/68 11/24/2024 10:39 AM EDT Pulse 86 11/24/2024 10:39 AM EDT Temperature 36.1 C (96.9 F) 11/24/2024 10:39 AM EDT Respiratory Rate 20 11/24/2024 10:39 AM EDT Oxygen Saturation 97% 11/24/2024 10:39 AM EDT Inhaled Oxygen Concentration - - Weight 63 kg (139 lb) 11/24/2024 10:39 AM EDT Height 157.5 cm (5' 2 ) 11/24/2024 10:39 AM EDT Body Mass Index 25.42 11/24/2024 10:39 AM EDT documented in this encounter Functional Status * Over the past 2 weeks, how often have you been bothered by any of the following problems? Question Answer Date of Assessment Author Patient Health Questionnaire -2 Score 6 11/24/2024 10:41 AM Jessica Reinoso MA * Little interest or pleasure in doing things Answer Date of Assessment Author Nearly every day 11/24/2024 10:41 AM Jessica Reinoso MA * Feeling down, depressed, or hopeless Answer Date of Assessment Author Nearly every day 11/24/2024 10:41 AM Jessica Reinoso MA * Trouble falling or staying asleep, or sleeping too much Answer Date of Assessment Author Nearly every day 11/24/2024 10:41 AM Jessica Reionso MA * Feeling tired or having little energy Answer Date of Assessment Author More than half the days 11/24/2024 10:41 AM Jessica Reinoso MA * Poor appetite or overeating Answer Date of Assessment Author Several days 11/24/2024 10:41 AM Jessica Reinoso MA * Feeling bad about yourself - or that you are a failure or have let yourself or your family down Answer Date of Assessment Author Not at all 11/24/2024 10:41 AM Jessica Reinoso MA * Trouble concentrating on things, such as reading the newspaper or watching television Answer Date of Assessment Author Several days 11/24/2024 10:41 AM Jessica Reinoso MA * Moving or speaking so slowly that other people could have noticed? Or the opposite - being so fidgety or restless that you have been moving around a lot more than usual. Answer Date of Assessment Author More than half the days 11/24/2024 10:41 AM Jessica Reinoso MA * Thoughts that you would be better off or hurting yourself in some way Answer Date of Assessment Author Not at all 11/24/2024 10:41 AM Jessica Reinoso MA * Patient Health Questionnaire-9 Score Answer Date of Assessment Author 15 11/24/2024 10:41 AM Jessica Reinoso MA * How difficult have these problems made it for you to do your work, take care of things at home, or get along with other people? Answer Date of Assessment Author Somewhat difficult 11/24/2024 10:41 AM EDT Jessica Nuno MA * Over the last 2 weeks, how often have you been bothered by any of the following problems? Question Answer Date of Assessment Author Feeling nervous, anxious, or on edge 3 11/24/2024 10:40 AM EDT Jessica Valenzuela MA Not being able to stop or co ntrol worrying 3 11/24/2024 10:40 AM KVNGT Jessica Valenzuela MA Worrying too much about diff erent things 1 11/24/2024 10:40 AM KVNGT Jessica Valenzuela MA Trouble relaxing 3 11/24/2024 10:40 AM KVNGT Jessica Valenzuela MA Being so restless that it is hard to sit still 3 11/24/2024 10:40 AM Jessica Reinoso MA Becoming easily annoyed or irritable 1 11/24/2024 10:40 AM Jessica Reinoso MA Feeling afraid as if somethi ng awful might happen 2 11/24/2024 10:40 AM Jessica Reinoso MA ISAI-7 Total Score 16 11/24/2024 10:40 AM Jessica Reinoso MA documented as of this encounter Progress Notes * Emy Goldsmith MD - 11/24/2024 10:45 AM EDT Subjective Patient ID: Jennifer Palmer is a 64 y.o. female who presents for Annual exam HPI [employer] 64 y.o. F w PMX of SOY not using CPAP, COPD/asthma, HTN, GERD DM2, HLD, RA, Sjogren, depression Comes for Annual exam -Seen at ED on 11/12/24 for CP left-sided chest pain that has been constant for the last 5 hours. It happened approximately 30 minutes after eating she denies any globus sensation. She reports not taking anything for her symptoms it is not worse with exertion or would positional changes it does notwax and wane in any way it does not feel crush like. She has had symptoms like this before in the pa st EKG and CXR normal. no STEMI on EKG, trop negative,CBC wnl,chem potassium 3.5,lipase wnl Thought GI related . Pt denies having symptoms any longer Does reports chronic neck pain , states completed PT referred by PM w no much improvement but did not saw back PM. Assessment and Plan: Health care maintenance -Annual exam done 11/2024 -Menopause: 50 y of age -Pap smear 05/2023 neg /HPV neg Kathryn R repeat in 5 y -MM 03/2024 BIRADS 1 -Colonoscopy 05/2023 suspected melanosis coli ,internal hemorrhoids-Repeat Colonoscopy in 1 year dueto fair prep ---gave # to pt to check when to repeat - pt to follow at GI office -DEXA scan 09/2023 Normal bone density -Vaccines s/p Hep B x 3 - not immune, refusing revaccination, Covid x 4 - Biv x1 -last booster 03/2023-advised booster -refused , P13 x 1,s/p P20 09/2022 , Tdap 2016, Shingrix x 2 ,RSV vaccine 05/2023-advised for COVID 19 at px , Flu vaccine today here ----- Confirmed all meds today w pharmacy DM2 -12/25/2023 hb1C 8.2,Trig 232 , total ch 154 LDL 64 , HDL 44 -12/25/2023 Microalb 155.3 from neg -f w manager agency on 03/2025 -certified orthotist practice manager seen 07/2024 --pt wishing to change provider,she will see if can change provider in sameoffice -will let us know if needs new referral at another office if can not do change at current office Not on metformin for GI SE -per pt even in low doses -Saw Playground Aide today ---11/24/2024 continue Ozempic to 2 mg weekly,continue Farxiga 10 mg daily,reduce insulin Lantus to 12 units daily ,start insulin humalog 5 units 15 mins before heaviest meal of day (breakfast) ,check blood sugars twice a day to f per pt in 1 mo -Continue atorvastatin 20 mg daily -continuous glucose monitoring check -if no major improvement may need to consider to change to Mounjaro-pt wants to discuss w her Playground Aide about change HTN stable -EKG 03/2023 : HR 77, QTC 435 ,left axis deviation, only noted TWI in lead aVL rest normal - Holter 2018 neg. -stress test 2019 : nondiagnostic EKG For ischemia. 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 No hemodynamically significant renal artery stenosis is noted bilaterally. -repeat microalb , pt on ARBS already -continue losartan 100 mg daily .clonidine to 0.2 mg BID , amlodipine 5 mg BID by her cards , by cards Lasix 40 mg daily given by cardio in the past for unclear reasons -saw cards 11/03/2024 and f in 3 mo -Pt f w Cards -Dr Watkins - advised to continue care -order metanephrines urine,plasma today again for uncontrol hypertension--but seems recently BP better controlled SOY not using CPAP-refusing to use machine Asthma -controlled -states not needing NIALL ,pt stopped Fluticasone Furoate-Vilanterol (Breo Ellipta) 100-25 MCG/ACT aerosol -states saw pulm before but lost care Overweight BMI 25 -Advised pt to improve diet and exercise,discussed healthy life style -lottery office manager referred -seen already -decrease weight since in [...] referred by ENT for further eval in [place] but never went -referred again to ENT -seen 03/13/24 --from record report of dysphagia eval no mention about above CT finding -referred today for CT neck to eval abnormality ok by recent GFR for contrast use Rheumatoid arthritis with positive rheumatoid factor Pt w RA / Sjogren's disease, follows w automatic print developer -pt stopped seeing her rheumatology for 6 mo in 06/2024 ? -used to be on leflunomide and gabapentin and folic acid by her automatic print developer- pt decided to stopped meds 3 mo ago , [facility] -pt wants to change care -Referred again today to new sp per pt request -check today CRP,ESR Sjogren's syndrome -CT neck 2019: Atrophy of the bilateral salivary glands noted. Pt following with automatic print developer. -cevimeline TID-added cevimeline in medbox today, pt reports was only taking BID but agreed to resume TID use -pt will need to discuss w her psychiatrist about possibility of changing meds as well do not rec BZD that can be causing worsening memory -discussed already w pt to f w psychiatrist Bilateral post-traumatic osteoarthritis of knee -left knee MRI wo contrast 2019 Degeneration and attritional wear of the posterior horn and body ofthe medial meniscus with ill-defined inner margin tearing of the extruded meniscal body.Moderate-severe medial compartment and mild patellofemoral/lateral compartment osteoarthritis. Small Carrion's cyst. No significant joint effusion. No acute osseous abnormality. -Right knee MRI wo contrast 2019: Moderate medial compartment osteoarthritis and more mild osteoarthritis in the patellofemoral compartment.Moderate-sized joint effusion. Intact menisci. -bl knee XR 10/2022 By ortho: severe medial compartment arthritis -saw orthopedic 10/2024 offered a cortisone injection in the left greater trochanteric bursa with 40 mg of DepoMedrol. The patient tolerated the procedure well with no complications. 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 Since then losing hair ,similar episode occurred years ago after stressful situation -Pt following w psychiatrist and therapist at [facility].--F w psychiatrist 12/03/24 -Denies SI but has thoughts to be better off . -Takes clonazepam 2 tab at night and trazodone higher dose by psychiatrist Renal cyst -CT abdomen pelvis w IV con 08/2024:No lymphadenopathy. Mildly enlarged complex cyst in the upper pole, stable complex cyst in the lower pole of the right kidney, recommend renal MRI or CT for furtherevaluation. Cholelithiasis without acute inflammation. -MR abdomen wo/w con 09/23/24 Bilateral simple renal cysts. No hydronephrosis. Cholelithiasis without acute inflammatory findings. Liver, pancreas, spleen, and adrenal glands are within normal limits. Visualized bowel is normal caliber. No ascites. Dont see need for f up on renal cyst as reported simple Cholelithiasis -CT abdomen pelvis w IV con 08/2024: Cholelithiasis without acute inflammation. -denies symptoms ,discussed for surgeon nico but wants to hold for now, pt will inform me if symptoms -alarm signs and symptoms discussed Poor memory From food concession manager in 08/2024 Pt scored a 22 out of a possible 30 points. This is considered mild cognitive impairment and at an increased odds for dementia status. <--- from previous 26 04/2023 Vit B12 ,folic acid wnl -Pt f w neurologist ,advised to talk about memory issues w her sp,possible depression also causing memory deterioration. Next apt w neurologist 02/2025 -advised to improve diet,exercise and memory exercises Migraine FLOWER -CT head/brain wo IV con 06/2024 periventricular and subcortical white matter hypodensities which are nonspecific, but often seen in the setting of small vessel ischemic disease.No acute intracranial abnormality. -Saw 08/2024 for chronic tension FLOWER told to continue topiramte 25 mg daily , per pt fo f in 02/2025 Elevated Alk Phos -12/25/2023 Alk phos 121,bone alk phos wnl ,GGT wnl . PTH elevated ,Vit D wnl,Normal renal function -DEXA scan 09/2023 Normal bone density based on the lowest T-score value of 0.3 in the femoral neck applying -referred to Playground Aide for elevated PTH w no clear etiology ---in current evaluation-advised pt to make sure to follow about this w Endo beside DM Neck pain -XR cervical spine 06/2024 :Grade 1 anterolisthesis C5-6. -XR cervical spine w flex/ext 08/2024 Degenerative changes of the cervical spine as described. Slight anterolisthesis of C7 on T1 and T1 on T2 without significant change in flexion or extension. -saw PM 09/03/2024 for Spondylolisthesis, cervical region: --- referred for PT for cervical spine and after that we will consider injections. --States completed PT but worsen symptoms --gave # for PM today to f up for possible injections Back pain -XR hip LT 03/2024: Mild osteoarthrosis without acute fracture or dislocation, left hip. -XR sacroiliac joint 03/2024:No acute fractures. No gross sacroiliitis by x-ray. -XR pelvis 10/06/24 Periarticular osteophyte formation at the bilateral hip joints. Soft tissues are unremarkable. No acute findings. -f w specialist -Increased in 01/2024 gabapentin to 400 mg BID by her automatic print developer from note-----pt states was not helping and stopped use -refilled today Lidoderm patch Alopecia she is very sad after grand daughter's in April 2024. Since then losing hair ,similar episode occurred years ago after stressful situation -continue biotin 5 mg daily -pd to see blending tank tender helper - in the past had scalp inj which helped-states has apt for 06/2025 -pt to call fo try early apt Hypokalemia -saw Airworthiness Safety Inspector 08/2024 increased lasix to 40 meQ, and started K+20 BID -last chem at ED 11/12/2024 K + is normal -repeat chem Review of Systems Constitutional: Negative. Negative for chills, fatigue and fever. HENT: Negative. Eyes: Negative. Respiratory: Negative. Cardiovascular: Negative. Gastrointestinal: Negative. Genitourinary: Negative. Musculoskeletal: Positive for back pain and neck pain. Neurological: Negative. Hematological: Negative. Psychiatric/Behavioral: Negative. Objective BP 118/68 (BP Location: Left arm, Patient Position: Sitting, BP Cuff Size: Adult) Pulse 86 Temp96.9 ??F (36.1 ??C) (Temporal) Resp 20 Ht 5' 2 (1.575 m) Wt 139 lb (63 kg) SpO2 97% BMI 25.42 kg/m?? Physical Exam Vitals reviewed. Constitutional: General: She is not in acute distress. Appearance: Normal appearance. HENT: Head: Normocephalic and atraumatic. Right Ear: Tympanic membrane and ear canal normal. Left Ear: Tympanic membrane and ear canal normal. Mouth/Throat: Mouth: Mucous membranes are moist. Pharynx: Oropharynx is clear. Eyes: Extraocular Movements: Extraocular movements intact. Pupils: Pupils are equal, round, and reactive to light. Cardiovascular: Rate and Rhythm: Normal rate and regular rhythm. Heart sounds: Normal heart sounds. No murmur heard. Pulmonary: Effort: Pulmonary effort is normal. Breath sounds: Normal breath sounds. Abdominal: General: Abdomen is flat. Bowel sounds are normal. Palpations: Abdomen is soft. Musculoskeletal: General: Normal range of motion. Cervical back: Normal range of motion and neck supple. Skin: General: Skin is warm. Neurological: General: No focal deficit present. Mental Status: She is alert and oriented to person, place, and time. Mental status is at baseline. Psychiatric: Mood and Affect: Mood normal. Behavior: Behavior normal. Assessment/Plan Problem List Items Addressed This Visit Benign essential hypertension Relevant Medications potassium chloride (Klor-Con) 20 MEQ packet Other Relevant Orders Metanephrines, Fractionated, LC/MS/MS, Random Urine Metanephrines, Fractionated, Free, LC/MS/MS, Plasma Type 2 diabetes mellitus without complication (CMS/HCC) Relevant Medications potassium chloride (Klor-Con) 20 MEQ packet Rheumatoid arthritis with positive rheumatoid factor (CMS/HCC) Relevant Orders Referral to Rheumatology Sialoadenitis of submandibular gland Healthcare maintenance Poor memory Elevated alkaline phosphatase level Neck pain Relevant Medications lidocaine (Lidoderm) 5 % patch Hypokalemia Relevant Medications estradiol (Estrace) 0.1 MG/GM vaginal cream (Start on 11/26/2024) potassium chloride (Klor-Con) 20 MEQ packet Other Visit Diagnoses Lesion of tonsil - Primary Relevant Orders CT Soft Tissue Neck w/ Contrast Encounter for immunization Relevant Orders FLU VACCINE TRIVALENT HIGH DOSE [id number] (Fluzone) 65 yrs + (Completed) Health care maintenance Relevant Orders C-reactive Protein Sed Rate by Modified Westergren Albumin, Random Urine W/Creatinine CBC auto differential Comprehensive Metabolic Panel Hemoglobin A1c Lipid Panel, Standard Syphilis Screen TSH with Reflex to Free T4 Vitamin B12 (Cobalamin) and Folate Panel, Serum Vitamin D, 25-Hydroxy, Total, Immunoassay documented in this encounter Plan of Treatment Upcoming Encounters Date Type Department Care Team (Late st Contact Info) Description 03/19/2025 9:30 AM EST Office Visit [facility] [address], [place] [id number] Tobias, Rachel, OD [address] [place] [address] Scheduled Orders Name Type Priority Associated Diagnoses Orde r Schedule CT Soft Tissue Neck w/ Contrast Imaging Routine Lesion of tonsil Expected: 11/24/2024, Expires: 11/24/2025 C-reactive Protein Lab Routine Health care maintenance Expected: 11/24/2024 (Approximate), Expires: 11/24/2025 Sed Rate by Modified Westergren Lab Routine Health care maintenance Expected: 11/24/2024 (Approximate), Expires: 11/24/2025 Albumin, Random Urine W/Creatinine Lab Routine Health care maintenance Expected: 11/24/2024 (Approximate), Expires: 11/24/2025 CBC auto differential Lab Routine Health care maintenance Expected: 11/24/2024 (Approximate), Expires: 11/24/2025 Comprehensive Metabolic Panel Lab Routine Health care maintenance Expected: 11/24/2024 (Approximate), Expires: 11/24/2025 Hemoglobin A1c Lab Routine Health care maintenance Expected: 11/24/2024 (Approximate), Expires: 11/24/2025 Lipid Panel, Standard Lab Routine Health care maintenance Expected: 11/24/2024 (Approximate), Expires: 11/24/2025 Syphilis Screen Lab Routine Health care maintenance Expected: 11/24/2024 (Approximate), Expires: 11/24/2025 TSH with Reflex to Free T4 Lab Routine Health care maintenance Expected: 11/24/2024 (Approximate), Expires: 11/24/2025 Vitamin B12 (Cobalamin) and Folate Panel, Serum Lab Routine Health care maintenance Expected: 11/24/2024 (Approximate), Expires: 11/24/2025 Vitamin D, 25-Hydroxy, Total, Immunoassay Lab Routine Health care maintenance Expected: 11/24/2024 (Approximate), Expires: 11/24/2025 Metanephrines, Fractionated, LC/MS/MS, Random Urine Lab Routine Benign essential hypertension Expected: 11/24/2024 (Approximate), Expires: 11/24/2025 Metanephrines, Fractionated, Free, LC/MS/MS, Plasma Lab Routine Benign essential hypertension Expected: 11/24/2024 (Approximate), Expires: 11/24/2025 Scheduled Referrals Name Type Priority Associated Diagnoses Orde r Schedule Referral to Rheumatology Outpatient Referral Routine Rheumatoid arthritis with positive rheumatoid factor, involving unspecified site ([facility]) Expected: 11/24/2024 (Approximate), Expires: 11/24/2025 documented as of this encounter Visit Diagnoses Diagnosis Lesion of tonsil- Primary Rheumatoid arthritis with positive rheumatoid factor, involving unspecified site ([facility]) Neck pain Cervicalgia Encounter for immunization Health care maintenance Sialoadenitis of submandibular gland Type 2 diabetes mellitus without complication, unspecified whether custodial insulin use ([facility]) Hypokalemia Hypopotassemia Healthcare maintenance Poor memory Memory loss Elevated alkaline phosphatase level Benign essential hypertension Essential hypertension, benign documented in this encounter Additional Health Concerns Assessment Noted Time PHQ-9 Depression Total Score: 15 025 10:41 AM EDT documented as of this encounter Care Teams Screen Printing Press Operator Relationship Specialty Start Date End Date Emy Askew MD [address] [place] [id number] PCP - General Internal Medicine 07/25/22 documented as of this encounter
--- NOTE | 2024-11-26 08:58 | MHC.OFFVIS ---
Vital Signs 11/26/24 08:59 Height 5 ft 2 in Weight 139 lb BMI 25.4 Intake Visit Reasons: Type 2 diabetes mellitus without complications Intake Note: Jennifer is a 64 year old female who presents today as a new patient for a Diabetic foot exam. Pt states her last glucose was taken yesterday and it was 162 she has yet to check today and Her last reported A1c was 7.9.She reports no previous wound and she notes a Bilateral burning sensation in her feet. Patient is currently experiencing head aches as well. She is not an amputee Allergies codeine (Codeine) Allergy (Mild, Verified 11/26/24 09:01) BURNING IN CHEST, chest pain sulfamethoxazole (From Bactrim) Allergy (Mild, Verified 11/26/24 09:01) ITCH,RASH Medication List - Last Reconciled 11/26/24 by Ann Grider DPM aspirin 81 mg PO DAILY atorvastatin 20 mg PO BEDTIME blood glucose control high,low (FreeStyle Control solution) Twice a month blood sugar diagnostic (FreeStyle Lite Strips) 4 times a day 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 meter (FreeStyle Lite Meter kit) As directed 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 sensor (FreeStyle Anthony 3 Plus Sensor device) As directed every 15 days 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,momd teacher,cont (FreeStyle Anthony 3 [place]) As directed calcium carbonate 600 mg PO QAM carvedilol 25 mg PO BID cevimeline 1 cap PO QAM cholecalciferol (vitamin D3) 50 mcg PO DAILY clonazepam 0.5 mg PO DAILY PRN clonidine HCl 0.1 mg PO BID dapagliflozin propanediol (Farxiga) 10 mg PO DAILY [diabetic shoes and insoles As directed] diltiazem HCl ER 360 mg PO DAILY docusate sodium (DOK) 100 mg PO DAILY duloxetine 60 mg PO BEDTIME folic acid 1 mg PO DAILY furosemide 20 mg PO DAILY gabapentin 300 mg PO BID hydrocortisone 2.5% (Proctosol HC) 1 appl AK BEDTIME PRN insulin glargine (Lantus Solostar U-100 Insulin) 12 units (0.12 mL) subcut QPM insulin lispro (Humalog KwikPen (U-100) Insulin) 5 units (0.05 mL) subcut DAILY lancets (TRUEplus Lancets) 4 times a day leflunomide 20 mg PO DAILY loratadine 10 mg PO DAILY PRN losartan 100 mg PO DAILY melatonin 10 mg PO BEDTIME PRN naproxen 500 mg PO BID PRN ondansetron 4 mg PO Q8H PRN pen needle, diabetic (Comfort EZ Pen [place]) As directed t inject insulin twice daily semaglutide (Ozempic) 2 mg (0.75 mL) subcut QWEEK sennosides (senna) 17.2 mg PO DAILY PRN sodium,potassium,mag sulfates 17.5-3.13-1.6 gram (Suprep Bowel Prep Kit) DILUTE; drink 1/2 at 6-8 pm and half at 11 PM- 1AM topiramate 25 mg PO BEDTIME HPI Comments Details: The patient is a 64-year-old female with a past medical history as seen below presenting for a diabetic foot exam. She reports experiencing a burning sensation on the bottom of both feet, which have been present for an unspecified duration. Patient states her blood glucose levels have been elevated with a recent reading of 162 mg/dL and an A1c of approximately 7%. The patient also has concerns regarding this thickness and curving of her toenails, worsened to bilateral hallucal nails, which have been causing discomfort with the nails or too elongated or thickened. She denies any recent pedal injuries. She denies any other pedal concerns. She denies any current nausea, vomiting, fever, or chills. 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 SOY (obstructive sleep apnea) COPD (chronic obstructive pulmonary disease) Sicca syndrome Constipation Alopecia Sjogrens syndrome Osteoarthritis Rheumatoid arthritis Fibromyalgia Back pain Difficulty swallowing GERD (gastroesophageal reflux disease) Depression Asthma Elevated cholesterol HTN (hypertension) Surgical History History of laryngoscopy Hx of hemorrhoidectomy History of bladder suspension procedure Hx of dilation and curettage Hx of tubal ligation History of repair of left rotator cuff Hx of colonoscopy History of esophagogastroduodenoscopy (EGD) Family History Father Cancer Mother Heart disease Diabetes Social History Household Members: Children and Other Household Members Other:: daughter, grandkids Are you a primary patient care technician to a significant other at home: No Do you presently have visiting nurse or other home services: No Alcohol intake: never Patient Tobacco Use Status: Never used Tobacco e-Cigarette/Vaping Use: Never Used Second Hand Smoke Exposure: No 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al status: disabled 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 Denies numbness or tingling. - Endocrine: Reports blood sugar level of 162 mg/dL and A1c of 7%. All systems reviewed & are unremarkable except as noted in HPI and below Physical Exam Vital Signs: BMI result Body Mass Index 25.4 Extrem Other: Bilateral lower extremity focused physical exam: Derm: Toenails noted to be thickened, slightly discolored, and dystrophic - normal length noted, with incurvation of toenails noted worse to the medial aspects of bilateral hallucal nails. Skin supple and turgor within normal limits. No open lesions abrasions or wounds noted. No clinical signs of infection. No ecchymosis, discoloration, or erythema noted. No interdigital maceration noted. Vascular: DP/PT pulses palpable. Capillary refill time less than 3 seconds. Temperature gradient warm to warm. Pedal hair absent. No varicosities noted. Neuro: Protective sensation is grossly intact to light touch and monofilament testing. Patient reports burning sensation to the plantar aspects of the feet. MSK: No pain on palpation to the forefoot, hindfoot or ankles bilaterally. Range of motion of the forefoot hindfoot and ankles within normal limits. No crepitus noted. Pes planus foot type noted. Mild hammertoe deformities noted bilaterally. Nonantalgic gait unassisted noted. MMT 5/5. Office Procedures Diabetic Foot Exam G9226 - Diabetic Foot Exam Results Reviewed Results Reviewed: Laboratory Tests 09/21/24 11/24/24 09:55 09:04 Glucose (Clinic) 326 H Hgb A1c (Clinic) 7.9 H Assessment & Plan Assessment & Plan (1) DM2 (diabetes mellitus, type 2): Code(s): E11.9 - Type 2 diabetes mellitus without complications Category: Medical Qualifiers: Diabetes mellitus care home insulin use: without technician terminal and repeater use Diabetes mellitus complication status: with neurologic complications Diabetes mellitus complication detail: with polyneuropathy Qualified Code(s): E11.42 - Type 2 diabetes mellitus with diabetic polyneuropathy (2) Paresthesia of foot, bilateral: Code(s): R20.2 - Paresthesia of skin Category: Medical (3) Nail dystrophy: Code(s): L60.3 - Nail dystrophy Category: Medical (4) Tinea unguium: Code(s): B35.1 - Tinea unguium Category: Medical Plan Patient was informed and verbally consented to the use of an ambient scribe for clinic note documentation during this visit. Provided patient with diabetic foot education. I discussed with the patient the importance of managing blood sugar levels to prevent progression of diabetic neuropathy. We talked about the need for routine nail care to avoid any ulcerations or infections. I also emphasized the importance of wearing appropriate footwear and provided a prescription for diabetic shoes and insoles. 1. Diabetic Foot Exam: - Continue monitoring blood sugar levels and adherence to diabetic medication. - Prescription provided for diabetic shoes and insoles to support foot health. - Patient advised to soak feet in warm water with Epsom salt to alleviate discomfort from thickened and incurvated nails. - Provided patient with diabetic foot exam informational form. - Avoid barefoot walking. Monitor feet daily. Patient is to follow-up in 9 weeks for routine diabetic nail care. Medications: New [diabetic shoes and insoles] As directed 1 ea 0RF Diabetic neuropathy B35.1 - Tinea unguium, E11.42 - Type 2 diabetes mellitus with diabetic polyneuropathy, L60.3 - Nail dystrophy, R20.2 - Paresthesia of skin Coding Level of Care Code New Pt Level 4 (73606) Diagnoses Type 2 diabetes mellitus with diabetic polyneuropathy, without long-term current use of insulin E11.42 Diabetes mellitus care home insulin use: without technician terminal and repeater use Diabetes mellitus complication status: with neurologic complications Diabetes mellitus complication detail: with polyneuropathy Paresthesia of foot, bilateral R20.2 Nail dystrophy L60.3 Tinea unguium B35.1 CPT Codes Diabetic Foot Exam - CPT: G9226 - Diabetic Foot Exam ([id number]) Time Spent (min) 53
[2024-11-26 08:59] VITALS: BMI 25.4
--- OUTSIDE RECORDS SUMMARY | 2024-11-26 09:30 | XMS_ITS | Encounter Summary ---
Author Organization [employer] Address [address] [facility] 7t [place] [address] Care Team Providers Care Knuckler Name Role Phone Emy Askew MD Primary Care Pro vider Encounter Details Date Type Department Care Team (Latest Contact Info) Description 11/24/2024 Travel Social History Tobacco Use Types Packs/Day [...] housing situation today? I have butch erickson 11/24/[address] you li [...] AM EDT documented as of this encounter Functional Status * Over the [...] 10:41 AM Jessica Reinoso MA * Feeling tired or having little [...] Assessment Author Somewhat difficult 11/24/2024 10:41 AM Jessica Cavanaugh MA * Over the last 2 weeks, how often have you been bothered by any of the following problems? Question Answer Date of Assessment Author Feeling nervous, anxious, or on edge 3 11/24/2024 10:40 AM Jessica Reinoso MA Not being able to stop or co ntrol worrying 3 11/24/2024 10:40 AM Jessica Reionso MA Worrying too much about diff erent things 1 11/24/2024 10:40 AM Jessica Reinoso MA Trouble relaxing 3 11/24/2024 10:40 AM Jessica Reinoso MA Being so restless that it is hard to sit still 3 11/24/2024 10:40 AM Jessica Reinoso MA Becoming easily annoyed or irritable 1 11/24/2024 10:40 AM Jessica Reinoso MA Feeling afraid as if somethi ng awful might happen 2 11/24/2024 10:40 AM Jessica Reinoso MA ISAI-7 Total Score 16 11/24/2024 10:40 AM EDT Jessica Valenzuela MA documented as of this encounter Plan of Treatment Upcoming Encounters Date Type Department Care Team (Late st Contact Info) Description 03/19/2025 9:30 AM EST Office Visit [facility] [address] [place] [address] Rachel Collado, OD [address] [place], [place] [phone] documented as of this encounter Visit Diagnoses Not on filedocumented in this encounter Additional Health Concerns Assessment Noted Time PHQ-9 Depression Total Score: 15 025 10:41 AM EDT documented as of this encounter Care Teams Knuckler Relationship Specialty Start Date End Date Emy Askew MD [address] [place], [place] [phone] PCP - General Internal Medicine 07/25/22 documented as of this encounter
--- OUTSIDE RECORDS SUMMARY | 2024-11-26 09:30 | XMS_ITS | Encounter Summary ---
Author Organization [employer] Address [address] [place] [address] 7t [place] [address] Care Team Providers Care Sales Trainee Name Role Phone [facility] Primary Care Provider [phone] Emy Askew MD Primary Care Pro vider Reason for Visit * Reason Onset Date Comments Med Refill 05/11/2022 Encounter Details Date Type Department Care Team (Late st Contact Info) Description 05/11/2022 Telephone [facility] MEDICINE [address] [place] [address] [facility] [address] [place] [address] Med Refill Social History Tobacco Use Types [...] has lost the device. Please sent to [facility] - [place], [place] - [address] [place] [address] documented in this encounter Plan of Treatment Upcoming Encounters Date Type Department Care Team ([facility] st Contact Info) Description 03/19/2025 9:30 AM EST Office Visit [facility] [address] [place] [address] Rachel Collado, OD [address] [place] [address] documented as of this encounter Visit Diagnoses Not on filedocumented in this encounter Care Teams Sales Trainee Relationship Specialty Start Date End Date Kenya SolJULIO CÉSAR [address] [place] [address] PCP - General Family Medicine 01/22/22 07/24/22 Emy Askew MD [address] [place] [address] PCP - General Internal Medicine 07/25/22 documented as of this encounter
--- OUTSIDE RECORDS SUMMARY | 2024-11-26 09:30 | XMS_ITS | Encounter Summary ---
Author Organization [employer] Address [address] [place] [address] 7 [place] [address] Care Team Providers Care Keno Terminal Operator Name Role Phone Emy Askew MD Primary Care Pro vider Reason for Visit * Reason Comments Med Refill Encounter Details Date Type Department Care Team ([facility] Contact Info) Description 02/14/2024 Refill [facility] MEDICINE [address] [place] [address] Emy Askew MD [address] [place] [address] Social History Tobacco Use Types Packs/Day Years [...] Description 03/19/2025 9:30 AM EST Office Visit [facility] [address] [place], [place] [phone] Rachel Collado, AFUA [address] [place] [address] documented as of this encounter Visit Diagnoses Not on filedocumented in this encounter Additional Health Concerns Assessment Noted Time PHQ-9 Depression Total Score: 10 024 2:37 PM EDT documented as of this encounter Care Teams Keno Terminal Operator Relationship Specialty Start Date End Date Emy Askew MD [address] [place], [place] [phone] PCP - General Internal Medicine 07/25/22 documented as of this encounter
--- OUTSIDE RECORDS SUMMARY | 2024-11-26 09:30 | XMS_ITS | Encounter Summary ---
Author Organization [employer] Address [address] [place] [address] [address] [place] [address] Care Team Providers Care Fire Sprinkler Inspector Name Role Phone Cyn Bosch MD Primary Care Provider Unava Kenya Han [facility] Primary Care Provider [phone] Emy Askew MD Primary Care Pro vider Encounter Details Date Type Department Care Team (Latest Contact Info) Description 05/09/2020 Abstract [facility] Dental, Provider, DDS Social History [...] Description 03/19/2025 9:30 AM EST Office Visit [facility] [address] [place] [address] Rcahel Collado, OD [address] [place] [address] documented as of this encounter Visit Diagnoses Not on filedocumented in this encounter Care Teams Fire Sprinkler Inspector Relationship Specialty Start Date End Date Cyn Bosch MD PCP - General Family Medicine 08/20/19 01/21/22 Calais[place] [facility] [address] [place] [address] PCP - General Family Medicine 01/22/22 07/24/22 Emy Askew MD [address] [place] [address] [place] [address] PCP - General Internal Medicine 07/25/22 documented as of this encounter
--- OUTSIDE RECORDS SUMMARY | 2024-11-26 09:30 | XMS_ITS | Encounter Summary ---
Author Organization [employer] Address [address] [facility] [facility] [address] [place] [address] Care Team Providers Care Guinea Pig Breeder Name Role Phone Emy Askew MD Primary Care Pro vider Encounter Details Date Type Department Care Team ([facility] st Contact Info) Description 08/07/2023 Orders Only [facility] [address] [place] [address] Valeria Armas FNP [address] [place] [address] Social History Tobacco Use Types Packs/Day Years [...] Description 03/19/2025 9:30 AM EST Office Visit [facility] [address] [place], [place] [phone] Rachel Collado, OD [address] [place], [place] [phone] documented as of this encounter Visit Diagnoses Not on filedocumented in this encounter Additional Health Concerns Assessment Noted Time PHQ-9 Depression Total Score: 16 023 10:16 AM EDT documented as of this encounter Care Teams Guinea Pig Breeder Relationship Specialty Start Date End Date Emy Askew MD [address] [place], [place] [phone] PCP - General Internal Medicine 07/25/22 documented as of this encounter
--- OUTSIDE RECORDS SUMMARY | 2024-11-26 09:30 | XMS_ITS | Encounter Summary ---
Author Organization [employer] Address [address] [place] [address] 7t [place] [address] Care Team Providers Care Supervisor Graphite Name Role Phone [facility] Primary Care Provider [phone] Emy Askew MD Primary Care Pro vider Reason for Visit * Reason Onset Date Comments VISION 03/13/2022 Encounter Details Date Type Department Care Team ([facility] st Contact Info) Description 03/13/2022 Telephone [facility] MEDICINE [address] [place] [address] [facility] [address] [place] [address] VISION Social History Tobacco Use Types Packs/Day [...] center regarding an eye exam. Please contact [phone] documented in this encounter Plan of Treatment Upcoming Encounters Date Type Department Care Team (Late st Contact Info) Description 03/19/2025 9:30 AM EST Office Visit [facility] [address] [place] [address] Rachel Collado, OD [address] [place], [place] [phone] documented as of this encounter Visit Diagnoses Diagnosis Diabetes 1.5, managed as type 2 (CMS/HCC) documented in this encounter Care Teams Supervisor Graphite Relationship Specialty Start Date End Date Kenya Sol FNP [address] [place], [place] [phone] PCP - General Family Medicine 01/22/22 07/24/22 Emy Askew MD [address] [place], [place] [phone] PCP - General Internal Medicine 07/25/22 documented as of this encounter
--- OUTSIDE RECORDS SUMMARY | 2024-11-26 09:30 | XMS_ITS | Clinical Summary ---
Author Organization [facility] Address [address] [place] [address] Phone Care Team Providers Care Motorcycle Service Technician Name Role Phone Berkley Bird MD Primary [...] mmol/L LAB CHEMISTRY METHOD 04/06/2024 6:42 PM [facility] Potassium 3.5 3.5 - 5.5 mmol/L LAB CHEMISTRY METHOD 04/06/2024 6:42 PM [facility] Chloride 102 96 - 110 mmol/L LAB CHEMISTRY METHOD 04/06/2024 6:42 PM [facility] CO2 31 21 - 32 mmol/L LAB CHEMISTRY METHOD 04/06/2024 6:42 PM [facility] Anion Gap 5 3 - 11 LAB CHEMISTRY METHOD 04/06/2024 6:42 PM [facility] Glucose 183(H) 70 - 100 mg/dL LAB CHEMISTRY METHOD 04/06/2024 6:42 PM [facility] BUN 17 5 - 25 mg/dL LAB CHEMISTRY METHOD 04/06/2024 6:42 PM [facility] Creatinine 0.94 0.50 - 1.10 mg/dL LAB CHEMISTRY METHOD 04/06/2024 6:42 PM [facility] eGFR 67 >=60 mL/min/1. 73m2 LAB CHEMISTRY METHOD 04/06/2024 6:42 PM [facility] Comment:Calculation based on the Chronic Kidney Disease Epidemiology Collaboration (CKD-EPI) equation refit without adjustment for race. BUN/Creatinine Ratio 18.1 LAB CHEMISTRY METHOD 04/06/2024 6:42 PM [facility] Calcium 10.3 8.5 - 10.5 mg/dL LAB CHEMISTRY METHOD 04/06/2024 6:42 PM [facility] AST (SGOT) 15 10 - 42 unit/L LAB CHEMISTRY METHOD 04/06/2024 6:42 PM [facility] ALT (SGPT) 22 10 - 60 unit/L LAB CHEMISTRY METHOD 04/06/2024 6:42 PM [facility] Alkaline Phosphatase 140(H) 42 - 121 unit/L LAB CHEMISTRY METHOD 04/06/2024 6:42 PM [facility] Total Protein 7.6 6.0 - 8.0 g/dL LAB CHEMISTRY METHOD 04/06/2024 6:42 PM [facility] Albumin 3.6 3.2 - 5.0 g/dL LAB CHEMISTRY METHOD 04/06/2024 6:42 PM [facility] Total Bilirubin 0.3 0.0 - 1.4 mg/dL LAB CHEMISTRY METHOD 04/06/2024 6:42 PM [facility] Blood Venous blood specimen / Unknown Venipuncture / Unknown 04/06/2024 2:00 PM EST 04/06/2024 2:00 PM EST us Magen Velasco DPM LAB BLOOD ORDERABLES Final Result [facility] [address] [place] [address], [place] [phone] from Last 3 Months or Most Recently Relevant to Health Maintenance Insurance [facility] MEDICARE Member Subscriber Plan / Payer (Ef fective 2023-Present) Name:Jennifer Payton Relation to Subscriber:Self Name:Jennifer Palmer Payer ID:[id number] Group ID:[id number] Type:Not on file Address: [place] [address] [place] [address] Care Teams Motorcycle Service Technician Relationship Specialty Start Date End Date Berkley Bird MD [address] [address] PCP - General Internal Medicine 02/20/24
--- OUTSIDE RECORDS SUMMARY | 2024-11-26 09:30 | XMS_ITS | Encounter Summary ---
Author Organization [employer] Address [address] [facility] [address]t [place] [address] Care Team Providers Care Padder Cushion Name Role Phone Emy Askew MD Primary [...] Description 03/19/2025 9:30 AM EST Office Visit [facility] [address] [place] [address] TobiasRachel, OD [address] [place] [address] documented as of this encounter Procedures Procedure Name Priority Date/Time Associated Diagnosis Comments GLUCOSE, WHOLE BLOOD Routine 11/24/2024 9:04 AM EDT documented in this encounter Results * (ABNORMAL) Glucose, Whole Blood (11/24/2024 9:04 AM EDT) Glucose, Whole Blood 326(H) 60 - 115 mg/dL [facility] Comment:METER #: [id number] Testing performed in the Endocrinology Department [address] , [address], [facility]. 11/24/2024 9:04 AM EDT 11/24/2024 9:07 AM EDT us Generic External Data Provider LAB BLOOD ORDERAB LES Final Result [facility] [address] [place] [address] [phone] documented in this encounter Visit Diagnoses Not on filedocumented in this encounter Additional Health Concerns Assessment Noted Time PHQ-9 Depression Total Score: 15 11/24/ 025 10:41 AM EDT documented as of this encounter Care Teams Padder Cushion Relationship Specialty Start Date End Date Emy Askew MD [address] [place] [address] PCP - General Internal Medicine 07/25/22 documented as of this encounter
--- OUTSIDE RECORDS SUMMARY | 2024-11-26 09:30 | XMS_ITS | Encounter Summary ---
Author Organization [employer] Address [address] [place] [address] Care Team Providers Care Photoengraving Etcher Name Role Phone Emy Askew MD Primary Care Pro vider Reason for Visit * Reason Onset Date Comments Triage 07/31/2022 Encounter Details Date Type Department Care Team ([facility] st Contact Info) Description 07/31/2022 Telephone [facility] MEDICINE [address] [place] [address] Emy Askew MD [address] [place] [address] Triage Social History Tobacco Use Types Packs/Day [...] Description 03/19/2025 9:30 AM EST Office Visit [facility] [address] [place], [place] [phone] Rachel Collado, OD [address] [place], [place] [phone] documented as of this encounter Visit Diagnoses Not on filedocumented in this encounter Care Teams Photoengraving Etcher Relationship Specialty Start Date End Date Emy Askew MD [address] [place], [place] [phone] PCP - General Internal Medicine 07/25/22 documented as of this encounter
--- OUTSIDE RECORDS SUMMARY | 2024-11-26 09:30 | XMS_ITS | Encounter Summary ---
Author Organization [employer] Address [address] [place] [address] 7t [place] [address] Care Team Providers Care Editor Greeting Card Name Role Phone Ebenezer, Alden BRUSHER HAND Primary Care Provider [phone] Emy Askew MD Primary Care Pro vider Encounter Details Date Type Department Care Team (Late Contact Info) Description 03/26/2022 Orders Only [facility] MEDICINE [address] [place], [place] [phone] Lizett Cannon LPN Social History Tobacco Use [...] Description 03/19/2025 9:30 AM EST Office Visit [facility] [address] [place], [place] [phone] Tobias, Rachel, OD [address] [place] [address] documented as of this encounter Visit Diagnoses Not on filedocumented in this encounter Care Teams Editor Greeting Card Relationship Specialty Start Date End Date [place] Grande[place] FNP [address] [place] [address] PCP - General Family Medicine 01/22/22 07/24/22 Emy Askew MD [address] [place] [address] PCP - General Internal Medicine 07/25/22 documented as of this encounter
--- OUTSIDE RECORDS SUMMARY | 2024-11-26 09:30 | XMS_ITS | Encounter Summary ---
Author Organization [employer] Address [address] [place] [address] Care Team Providers Care Hot Tar Roofer Helper Name Role Phone Emy Askew MD Primary Care Pro vider Reason for Visit * Reason Onset Date Comments chart prep 11/23/2024 Encounter Details Date Type Department Care Team ([facility] st Contact Info) Description 11/23/2024 Telephone [facility] MEDICINE [address] [place] [address] Emy Askew MD [address] [place] [address] chart prep Social History Tobacco Use Types [...] Description 03/19/2025 9:30 AM EST Office Visit [facility] [address] [place] [address] Rachel Collado, OD [address] [place] [address] documented as of this encounter Visit Diagnoses Not on filedocumented in this encounter Additional Health Concerns Assessment Noted Time PHQ-9 Depression Total Score: 10 024 2:37 PM EDT documented as of this encounter Care Teams Hot Tar Roofer Helper Relationship Specialty Start Date End Date Emy Askew MD [address] [place] [address] PCP - General Internal Medicine 07/25/22 documented as of this encounter
--- OUTSIDE RECORDS SUMMARY | 2024-11-26 09:30 | XMS_ITS | Encounter Summary ---
Author Organization [employer] Address [address] [place] [address] 7 [place] [address] Care Team Providers Care Commercial Real Estate Manager Name Role Phone Emy Askew MD Primary Care Pro vider Reason for Visit * Reason Comments Med Refill Encounter Details Date Type Department Care Team ([facility] st Contact Info) Description 11/21/2024 Refill [facility] MEDICINE [address] [place] [address] Emy Askew MD [address] [place] [address] Benign essential hypertension Social History Tobacco Use [...] Description 03/19/2025 9:30 AM EST Office Visit [facility] OPTOMETRY [address] [place] [address] Rachel Collado, OD 230 [place] [address] documented as of this encounter Visit Diagnoses Diagnosis Benign essential hypertension Essential hypertension, benign documented in this encounter Additional Health Concerns Assessment Noted Time PHQ-9 Depression Total Score: 10 024 2:37 PM EDT documented as of this encounter Care Teams Commercial Real Estate Manager Relationship Specialty Start Date End Date Emy Askew MD [address] [place] [address] PCP - General Internal Medicine 07/25/22 documented as of this encounter
--- OUTSIDE RECORDS SUMMARY | 2024-11-26 09:30 | XMS_ITS | Encounter Summary ---
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 Hold am of surgery lasix,amytriptiline,lisinopril ??.HoldASA 5 days prior procedure and avoid NSAIDS 7 days prior procedure. Thanks documented in this encounter Plan of Treatment Upcoming Encounters Date Type Department Care Team (Late st Contact Info) Description 03/19/2025 9:30 AM EST Office Visit [facility] OPTOMETRY [address] [place] [address] Rachel Collado, OD [address] [place] [address] documented as of this encounter Visit Diagnoses Not on filedocumented in this encounter Additional Health Concerns Assessment Noted Time PHQ-9 Depression Total Score: 16 023 10:16 AM EDT documented as of this encounter Care Teams Retail Account Representative Relationship Specialty Start Date End Date Emy Askew MD [address] [place] [address] PCP - General Internal Medicine 07/25/22 documented as of this encounter
--- OUTSIDE RECORDS SUMMARY | 2024-11-26 09:30 | XMS_ITS | Encounter Summary ---
Author Organization [employer] Address [address] [place] [address] 7 [place] [address] Care Team Providers Care Sewing Machine Repairer Name Role Phone Cyn Bosch MD Primary Care Provider Unava Kenya Han [facility] Primary Care Provider [phone] Emy Askew MD Primary Care Pro vider Encounter Details Date Type Department Care Team (Latest Contact Info) Description 10/26/2021 Abstract [facility] Dental, Provider, DDS Social History Tobacco [...] Description 03/19/2025 9:30 AM EST Office Visit [facility] [address] [place] [address] Rachel Collado, OD [address] [place] [address] documented as of this encounter Visit Diagnoses Not on filedocumented in this encounter Care Teams Sewing Machine Repairer Relationship Specialty Start Date End Date Cyn Bosch MD PCP - General Family Medicine 08/20/19 01/21/22 [place] [facility] [address] [place] [address] PCP - General Family Medicine 01/22/22 07/24/22 Emy Askew MD [address] [place] [address] [place] [address] PCP - General Internal Medicine 07/25/22 documented as of this encounter
--- OUTSIDE RECORDS SUMMARY | 2024-11-26 09:30 | XMS_ITS | Encounter Summary ---
Author Organization [employer] Address [address] [place] [address] 7[address] [place] [address] Care Team Providers Care Fleet Coordinator Name Role Phone [facility] Primary Care Provider [phone] Emy Askew MD Primary Care Pro vider Reason for Visit * Reason Onset Date Comments Appointment Request 06/07/2022 Encounter Details Date Type Department Care Team ([facility] st Contact Info) Description 06/07/2022 Telephone [facility] MEDICINE [address] [place] [address] [facility] [address] [place] [address] Appointment Request Social History Tobacco Use Types [...] with new provider. Please contact pt at [phone] documented in this encounter Plan of Treatment Upcoming Encounters Date Type Department Care Team (Late st Contact Info) Description 03/19/2025 9:30 AM EST Office Visit [facility] OPTOMETRY [address] [place], [place] [phone] Rachel Collado, AFUA 230 [place] [address] documented as of this encounter Visit Diagnoses Not on filedocumented in this encounter Care Teams Fleet Coordinator Relationship Specialty Start Date End Date Kenya Sol FNP [address] [place] [address] [id number] PCP - General Family Medicine 01/22/22 07/24/22 Emy Askew MD [address] [place] [address] [id number] PCP - General Internal Medicine 07/25/22 documented as of this encounter
--- OUTSIDE RECORDS SUMMARY | 2024-11-26 09:30 | XMS_ITS | Encounter Summary ---
Author Organization [employer] Address [address] [place] [address] Care Team Providers Care Gill Tender Name Role Phone Emy Askew MD Primary Care Pro vider Encounter Details Date Type Department Care Team ([facility] st Contact Info) Description 02/23/2024 Orders Only [facility] MEDICINE [address] [place] [address] Provider, MD Way[place] Social History Tobacco Use [...] [facility] [address] [place], [place] [phone] Rachel Collado, OD [address] [place] [address] documented as of this encounter Procedures Procedure [...] documented as of this encounter Care Teams Gill Tender Relationship Specialty Start Date End Date Emy Askew MD [address] [place] [address] PCP - General Internal Medicine 07/25/22 documented as of this encounter
--- OUTSIDE RECORDS SUMMARY | 2024-11-26 09:30 | XMS_ITS | Clinical Summary ---
Author Organization [facility] Address [address] [place] [address] Phone Care Team Providers Care Social Human Services Assistants Name Role Phone Mark Foote MD Primary [...] topic Medical Devices Not on file [place] [address] C3 ACO [facility] C3 [employer] Care Teams Social Human Services Assistants Relationship Specialty Start Date End Date Mark Foote MD [address] [place] [address] PCP - General Pediatrics 10/15/19 Additional Source Comments The information contained in this document represents components of the legal health record. It is not the complete legal health record.[facility]
--- OUTSIDE RECORDS SUMMARY | 2024-11-26 09:30 | XMS_ITS | Encounter Summary ---
Author Organization [employer] Address [address] [facility] [address] [place] [address] Care Team Providers Care Screw Machine Tool Setter Name Role Phone Kenya Sol CHEMICAL SALES REPRESENTATIVE Primary Care Provider [phone] Emy Askew MD Primary Care Pro vider Encounter Details Date Type Department Care Team (Late Contact Info) Description 05/28/2022 Orders Only [facility] MED & PEDS [address] [place], [place] [phone] Candy Miller LPN Social History Tobacco Use [...] Department Care Team (Late Contact Info) Description 03/19/2025 9:30 AM EST Office Visit [facility] OPTOMETRY [address] [place], [place] [address] Tobias, Rachel, OD [address] [place], [place] [phone] documented as of this encounter Visit Diagnoses Not on filedocumented in this encounter Care Teams Screw Machine Tool Setter Relationship Specialty Start Date End Date Kenya Sol FNP [address] [place] [address] PCP - General Family Medicine 01/22/22 07/24/22 Emy Askew MD [address] [place] [address] PCP - General Internal Medicine 07/25/22 documented as of this encounter
--- OUTSIDE RECORDS SUMMARY | 2024-11-26 09:31 | XMS_ITS | Encounter Summary ---
Author Organization [employer] Address [address] [place] [address] 7 [place] [address] Care Team Providers Care Stem Roller Or Crusher Operator Name Role Phone Cyn Bosch MD Primary Care Provider Kenya Delong [facility] Primary Care Provider [phone] Emy Askew MD Primary Care Pro vider Encounter Details Date Type Department Care Team (Latest Contact Info) Description 09/30/2018 Abstract [facility] Dental, Provider, DDS Social History Tobacco [...] Description 03/19/2025 9:30 AM EST Office Visit [facility] OPTOMETRY [address] [place] [address] Rachel Collado, OD [address] [place] [address] documented as of this encounter Visit Diagnoses Not on filedocumented in this encounter Care Teams Stem Roller Or Crusher Operator Relationship Specialty Start Date End Date Cyn Bosch MD PCP - General Family Medicine 08/20/19 01/21/22 Kenya Sol [facility] [address] [place] [address] PCP - General Family Medicine 01/22/22 07/24/22 Emy Askew MD [address] [place] [phone] PCP - General Internal Medicine 07/25/22 documented as of this encounter
--- OUTSIDE RECORDS SUMMARY | 2024-11-26 09:31 | XMS_ITS | Encounter Summary ---
Author Organization [facility] Address [address] [place] [address] Phone Care Team Providers Care Adult Ministries Director Name Role Phone Unknown, Unknown Primary Care Provider Mark Segura MD Primary Care Provider Encounter Details Date Type Department Care Team (Latest Contact Info) Description 05/26/2018 Ancillary Orders [facility] [address] [place] [address] [place] [address] Isidro Watkins, DO [address] [place] [address] Other chest pain Social History Tobacco Use [...] pain documented in this encounter Care Teams Adult Ministries Director Relationship Specialty Start Date End Date Unknown, Unknown, PCP - General 05/15/18 10/14/19 Mark Foote MD [address] [place] [address] PCP - General Pediatrics 10/15/19 documented as of this encounter Additional Source Comments The information contained in this document represents components of the legal health record. It is not the complete legal health record.[facility]
--- OUTSIDE RECORDS SUMMARY | 2024-11-26 09:31 | XMS_ITS | Clinical Summary ---
Author Organization [employer] Address [address] [place] [address] [address] [place] [address] Care Team Providers Care It Applications Manager Name Role Phone Emy Askew MD [...] as needed for dry eyes 018 Active Fluticasone Furoate-Vilanter ol (Breo Ellipta) 100-25 MCG/ACT aerosol powder Inhale 1 puff at bed time. 022 Active acetaminophen (Tylenol) 500 MG tabletIndication s:Acute [...] as needed for pain 30 g Active biotin 5 MG tablet Take 1 tablet (5 mg) by mouth Once per day. 90 tablet 1 Active topiramate (Topamax) 25 MG tablet Active gabapentin (Neurontin) 400 MG capsule Take 1 capsule by mouth 2 times daily. Active D3 Super Strength 50 MCG (2000 UT) capsuleIndicatio ns:Vitamin D deficiency, unspecified TAKE 1 CAPSULE BY MOUTH EVERY MORNING 90 capsule 1 Active TRUEplus Lancets 33G misc USE DIRECTED TO TEST BLOOD SUGAR FOUR TIMES DAILY 100 each 11 Active Ventolin HFA 108 (90 Base) MCG/ACT inhaler INHALE 2 PUFFS BY MOUTH EVERY 6 HOURS NEEDED FOR WHEEZING 18 g 2 Active docusate sodium (Colace) 100 MG capsuleIndicatio ns:Chronic constipation TAKE 1 CAPSULE BY MOUTH TWICE DAILY NEEDED FOR CONSTIPATION 180 capsule 1 Active furosemide (Lasix) 40 MG tablet Take 40 mg by mouth in the morning. Active Ozempic, 0.25 or 0.5 MG/DOSE, 2 MG/3ML solution pen-injector INJECT 0.5 MG SUBCUTANEOUSLY EVERY 7 DAYS IN THE ABDOMEN, THIGHS, OR UPPER ARM, ROTATE INJECTION SITES. Active insulin glargine (Lantus SoloStar) 100 UNIT/ML pen Inject 7 Units under the skin at bedtime. 3 mL 1 025 2025 Active Insulin Pen Needle (pen needle 07/17 ) 31G X 8 mm misc Daily use 100 each 12 025 2025 Active Continuous Glucose [place] (FreeStyle Anthony 3 [place]) deviceIndication s:Type 2 diabetes mellitus without complication, unspecified whether percolator operator insulin use ([facility]) 1 each Once per day. Use as directed for CGM 1 each Active Continuous Glucose Sensor (FreeStyle Anthony 3 Plus Sensor) miscIndications: Type 2 diabetes mellitus without complication, unspecified whether percolator operator insulin use ([facility]) 1 each every 15 days. [...] 2 diabetes mellitus without complication, unspecified whether percolator operator insulin use ([facility]) USE DIRECTED FIVE TIMES DAILY 100 each 5 025 Active cevimeline (Evoxac) 30 MG capsule TAKE 1 CAPSULE BY MOUTH THREE TIMES DAILY IN THE MORNING, AT NOON, AND IN THE EVENING 90 capsule 2 025 Active calcium carbonate 1500 (600 Ca) MG tabletIndication s:Benign essential hypertension TAKE 1 TABLET BY MOUTH EVERY MORNING 90 tablet 1 025 Active Aspirin Low Dose 81 MG EC tablet TAKE 1 TABLET BY MOUTH EVERY MORNING 90 tablet 1 025 Active loratadine (Claritin) 10 MG tablet TAKE 1 TABLET BY MOUTH EVERY DAY NEEDED FOR ALLERGIES 90 tablet 1 025 Active losartan (Cozaar) 100 MG tablet TAKE 1 TABLET BY MOUTH EVERY MORNING 90 tablet 1 025 Active senna (Senokot) 8.6 MG tablet TAKE 2 TABLETS BY MOUTH EVERY DAY NEEDED FOR CONSTIPATION 180 tablet 1 025 Active carvedilol (Coreg) 25 MG tabletIndication s:Benign essential hypertension TAKE 1 TABLET BY MOUTH TWICE DAILY IN THE MORNING AND IN THE EVENING 60 tablet 2 Active cloNIDine (Catapres) 0.2 MG tablet TAKE 1 TABLET BY MOUTH TWICE DAILY IN THE MORNING AND IN THE EVENING 60 tablet 3 Active estradiol (Estrace) 0.1 MG/GM vaginal cream Insert 1 g into the vagina 2 (two) times a week. twice weekly 45 g 5 Active potassium chloride (Klor-Con) 20 MEQ packet Take 20 mEq by mouth 2 times daily. Active lidocaine (Lidoderm) 5 % patchIndications :Neck pain Apply 1 patch topically Once per day. Remove & discard patch within 12 hours or as directed by MD. 60 patch 2 Active Mouthwashes (Biotene Dry Mouth) liquid use twice daily as directed to prevent dry mouth 018 2024 Discontinued(O ther) leflunomide (Arava) 20 MG tablet Take 20 mg by mouth in the morning. 023 2024 Discontinued(O ther) estradiol (Estrace) 0.1 MG/GM vaginal cream Insert 1 g into the vagina Once per day. 1g vaginally x 14d, then twice weekly thereafter 45 g 2 024 2024 Discontinued(R eorder (will not trigger notification to Pharmacy)) lidocaine (Lidoderm) 5 % patch APPLY 1 PATCH TOPICALLY TO SKIN IN THE MORNING. LEAVE ON FOR 12 HOURS AND OFF FOR 12 HOURS DIRECTED MAY USE 2 PATCHES 60 patch 2 024 2024 Discontinued(R eorder (will not trigger notification to Pharmacy)) bisacodyl (Dulcolax) 5 MG EC tablet TAKE 4 TABLETS BY MOUTH ONCE DIRECTED BY DOCTOR 2024 Discontinued(O ther) senna (Senokot) 8.6 MG tablet TAKE 2 [...] EVENING 60 tablet 2 025 2024 Discontinued potassium chloride CR (Klor-Con M20) 20 MEQ ER tablet take 1 tablet by mouth every day with food 025 2024 Discontinued(O ther) Active Problems Problem Noted Date Diagnosed Date Cholelithiasis 09/11/2024 Hypokalemia 09/11/2024 Alopecia of scalp 06/22/2024 Neck pain 01/13/2024 Elevated alkaline phosphatase level 05/04/2023 Acute midline [...] referred by ENT for further eval in [place] but never went -referred again to ENT [...] referred by ENT for further eval in [place] but never went -referred again to ENT [...] w RA / Sjogren's disease, follows w pathologist assistant - Continue care w specialist -on leflunomide and MTX Assessment & Plan (10/23/2022 5:23 PM EDT): Pt w RA / Sjogren's disease, follows w pathologist assistant - Continue care w specialist -on leflunomide and MTX Assessment & Plan (09/24/2022 8:33 PM EDT): Pt w RA / Sjogren's disease, follows w pathologist assistant - Continue care w specialist Bilateral post-traumatic [...] age home -- I spoke w case operator today and they will come to speak w pt to give info. Was told that there is no need to refer to CM for this. Type 2 diabetes mellitus without complication Assessment & Plan (12/06/2022 6:16 AM EDT): 09/2022 HbA1C 8.2<---8.7, CBG 248., total ch 169, trig 324( in fasting) ,HDL 36,LDL 69, Microalb neg Used to follow w filenet admin, but lost care. Not on metformin for [...] - to f in 1 y. - Hand Shaper: seen in 11/2022 Assessment & Plan (10/23/2022 5:46 PM EDT): 09/2022 HbA1C 8.2<---8.7, CBG 248., total ch 169, trig 324( in fasting) ,HDL 36,LDL 69, Microalb neg Used to follow w filenet admin, but lost care. Not on metformin for [...] - to f in 1 y. - Hand Shaper: referred today Assessment & Plan (09/24/2022 8:51 PM EDT): Today HbA1C 8.7, CBG 248. Used to follow w filenet admin, but lost care. - DM2 labs. - Will consider increasing Trulicity at her next appt. - Pt not currently on Metformin, but used to be in the past. Will check at her next appt, and if she can tolerate it, will resume Rx. - Ophthalmology 07/2022 - to f in 1 y. - Hand Shaper: will refer at next visit. Varicose veins of lower extremity 07/08/2017 Assessment & Plan (10/23/2022 5:12 PM EDT): Pt w lower extremity edema trace from 1+ before , possibly from Cardiazem and venous insufficiency. - Advised to use compression stockings,--started using with noted improved LE edema -I confirmed today w her armed guard-Dr Watkins #[id number] that pt does not have CHF and [...] (12/06/2022 6:19 AM EDT): Pt following with pathologist assistant. Pt w consistently dry mouth. From med [...] for unclear reasons. - PT following w armed guard actively w on and off chest discomfort. [...] mg in pm - PT following w armed guard -will f BP in next 3 to 4 weeks Assessment & Plan (09/24/2022 8:43 PM EDT): BP slightly elevated at 144/94 - Holter 2019 neg. -echocardiogram 2018The left ventricular systolic function is normal. The visually estimated ejection fraction is between 60-65%. -stress test 2019 : nondiagnostic EKG For ischemia. - Will monitor BP manually at next visit. - PT following w armed guard Chronic constipation 12/24/2016 Gastroesophageal reflux disease without [...] in 2016 here . 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 Hold am of surgery lasix,amytriptiline,lisinopril .Hold ASA 5 days prior procedure and avoid NSAIDS 7 days prior procedure. -will rec to have post op EKG as rec by her armed guard for noted prolonged QTC -will rec to [...] Date Type Department Care Team Description 11/24/2024 10:45 AM EDT Office Visit [facility] [address] [place] [phone] Emy Askew MD Lesion of tonsil (Primary Dx); Rheumatoid arthritis with positive rheumatoid factor, involving unspecified site ([facility]/HCC); Neck pain; Encounter for immunization; Health care maintenance; Sialoadenitis of submandibular gland; Type 2 diabetes mellitus without complication, unspecified whether chcf insulin use (CMS/[facility]); Hypokalemia; Healthcare maintenance; Poor memory; Elevated alkaline phosphatase level; Benign essential hypertension 11/24/2024 Travel 11/24/2024 Orders Only GENERIC EXTERNAL DATA DEPARTMENT Provider, Generic External Data 11/23/2024 Telephone [facility] [address] [place] [address] Emy Askew MD chart prep 11/21/2024 Refill [facility] [address] [place] [phone] Emy Askew MD Benign essential hypertension 11/17/2024 Patient Outreach [facility] [address] [place], [place] [address] Emy Askew MD Pre-visit Planning (LVM ) 10/29/2024 Refill [facility] [address], [place] [address] Lucina Haro MD 10/29/2024 Refill [facility] [address], [place] [address] Emy Askew MD 10/26/2024 Refill [facility] [address], [place] [address] Lucy Main MD Benign essential hypertension 10/19/2024 9:30 AM EDT Clinical Support [facility] [address], [place] [address] Kaylen Mane RN Hyperlipidemia associated with type 2 diabetes mellitus ([facility]) 10/19/2024 Travel 10/18/2024 Telephone [facility] [address], [place] [address] Emy Askew MD Med Refill 10/16/2024 Travel 10/12/2024 Telephone [facility] [address], [place] [address] Emy Askew MD Prior Authorization (Ozempic) 10/08/2024 Refill [facility] [address] [place] [address] Lucy Main MD Type 2 diabetes mellitus without complication, unspecified whether percolator operator insulin use ([facility]) 10/01/2024 1:00 PM EDT Clinical Support [facility] [address] [place] [address] Akilah Maradiaga, GARY Type 2 diabetes mellitus without complication, unspecified whether percolator operator insulin use ([facility]) 10/01/2024 Travel 09/29/2024 Telephone [facility] [address] [place] [address] Doris Henry, GARY CGM 09/28/2024 Refill [facility] [address] [facility] [place] [address] Keely Lutz MD 09/19/2024 Results Follow-Up [facility] [address] [place] [address] Emy Askew MD Comprehensive Metabolic Panel, Magnesium, MR Abdomen w/ and w/o Contrast 09/19/2024 Orders Only [facility] [address] [place] [address] Emy Askew MD Hypokalemia (Primary Dx) 09/11/2024 9:30 AM EDT Office Visit [facility] [address] [place] [address] Emy Askew MD Benign essential hypertension (Primary Dx); Type 2 diabetes mellitus without complication, unspecified whether chcf insulin use (CMS/HCC); Dietary counseling; Exercise counseling; Renal cyst; Healthcare maintenance; Severe recurrent major depression without psychotic features (CMS/HCC); Poor memory; Alopecia of scalp; Biliary calculus of other site without obstruction; Hypokalemia 09/11/2024 Telephone [facility] [address] [place] [address] 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 09/11/2024 Travel 09/10/2024 Telephone [facility] [address] [place] [address] Emy Askew MD Chart Prep 08/30/2024 Refill [facility] [address] [facility] [place] [address] Florin Hammond MD Chronic constipation 08/27/2024 Refill [facility] [address] [facility] [place] [phone] Emy Askew MD Benign essential hypertension from Last 3 Months Immunizations Immunization Administration Dates Next Due Hep B, adult 11/25/2007,05/08/2007,04/10/2007 Influenza Injectable Quadriv alant Preservative Free IIV4 MDCK 01/06/2016 Influenza injectable quadriv alent IIV4 with preservative 12/10/2017,11/16/2016 Influenza injectable quadriv alent preservative free 12/05/2022,12/15/2020,12/01/2019,01/15,11/29/2014 Influenza, High Dose Seasona l, Preservative Free 11/24/2024 Influenza, IIV3, injectable 11/13/2013,0 11/15/2012,12/03/2011,11/14 Influenza, seasonal, [...] Mass Index 25.42 11/24/2024 10:39 AM EDT Plan of Treatment Upcoming Encounters Date Type Department Care Team (Late st Contact Info) Description 03/19/2025 9:30 AM EST Office Visit [facility] [address] [place] [address] TobiasJaimen, OD [address] [place] [address] Health Maintenance Due Date Last Done Comments CT Colonography 1960 FIT DNA/Cologuard 1958 FIT 1958 FOBT 1960 Sigmoidoscopy 1958 Diabetes: Foot Exam 1968 Dental Oral Exam 04/29/2022 10/26/2021, 10/2020, 04/06/2019, Additional history exists Dental Prophylaxis 01/18/2023 07/17/2022, 0 10/26/2021, 04/14/2021, Additional history exists Dental X-Ray: Full Mouth 08/20/2023 08/18/2020, 03/0 10/2020 Colonoscopy 05/08/2024 05/09/2023 Colorectal Cancer Screening 05/08/2024 Dental X-Ray: Bitewings 06/10/2024 06/10/19, 03/01/2023, 10/26/2021, Additional history exists COVID-19 Vaccine ( season) 2024 03/20/2023, 09/24/2022, 10/04/2021, Additional history exists Diabetes: Hemoglobin A1C 12/12/2024 025, 07/16/2024, 12/25/2023, Additional history exists Diabetes: Urine Protein Screening 12/24/2024 12/25/2023, 10/04/2022, 12/21/2020, Additional history exists Lipid Panel 12/24/2024 12/25/2023, 020 03/2023, 10/04/2022, Additional history exists Alcohol/Substance Use Screening 01/12/2025 01/13/2024 Mammogram 03/17/2025 03/17/2024, 11/03, 07/28/2021, Additional history exists Depression Monitoring 05/24/2025 11/24/2024, 025 SDOH Screening 11/24/2025 11/24/2024 Tobacco Screening 11/24/2025 11/24/2024 Eye Exam 01/07/2026 01/08/2024, 1108/2023, 01/08/2024, Additional [...] 60 years or older Completed 06/01/2023, 06/01/2023 Influenza Vaccine Completed 11/24/2024, , 12/15/2020, Additional history exists HIB Vaccines Aged Out No longer eligi [...] 2 diabetes mellitus without complication, unspecified whether percolator operator insulin use (CMS/[facility]) POCT GLUCOSE Routine 09/11/2024 9:28 AM EDT Type 2 diabetes mellitus without complication, unspecified whether chcf insulin use (CMS/[facility]) BI MAMMOGRAM SCREENING TOMOSYNTHESIS BILATERAL Routine 03/17/2024 1:00 PM EST LIPID PANEL, STANDARD Routine 12/25/2023 7:08 AM EDT Annual physical exam ALBUMIN, RANDOM URINE W/CREATININE Routine 12/25/2023 7:05 AM EDT Annual physical exam BITEWING - SINGLE RADIOGRAPHIC IMAGE Routine 06/10/2023 3:30 PM EDT Periodontal disease Fractured dental amish with loss of material HPV MRNA E6/E7 [...] Whole Blood 326(H) 60 - 115 mg/dL [facility] Comment:METER #: [id number] Testing performed in the Endocrinology Department [address] , [address], [facility]. 11/24/2024 9:04 AM EDT 11/24/2024 9:07 AM EDT us Generic External Data Provider LAB BLOOD ORDERAB LES Final Result [facility] [address] [place] [address] [phone] * XR Pelvis 1-2 Views (10/06/2024 3:02 PM EDT) Anatomical Region Laterality Modality Body, Pelvis Radiographic Karla ging 10/06/2024 3:02 PM EDT Narrative 10/06/2024 3:03 PM EDT [facility] [address] [place] [address] Drive [address] [place] [address] XRay Report Signed Patient: Jennifer Palmer MR#: [id number] 0 : 1960 Acct:[id number] Age/Sex: 64 / F ADM Date: 10/06/24 Loc: JAMISON Attending Dr: Amada Macias PA-C Ordering Physician: Amada Macias PA-C Date of Service: 10/06/24 Procedure(s): XR pelvis 1-2V Accession Number(s): [id number] cc: Amada Macias PA-C; Emy Askew MD [...] 10/06/24 1503 DD/ 1502 TD/TT: 10/06/24 1502 Railroad Carman: Procedure Note Donotuseinterpreter, Image - 10/06/2024 [facility] [address] [place] [address] Drive [address] [place] [address] XRay Report Signed Patient: Jennifer PalmerMR#: [id number] 0 : 1960cct:[id number] Age/Sex: 64 / FADM Date: 10/06/24 Loc: HO.HOSX Attending Dr: Amada Macias PA-C Ordering Physician: Amada Macias PA-C Date of Service: 10/06/24 Procedure(s): XR pelvis 1-2V Accession Number(s): [id number] cc: Amada Macias PA-C; Emy Askew MD [...] 10/06/24 1503 DD/ 1502 TD/TT: 10/06/24 1502 Railroad Carman: [facility] External Provider IMG XR PROCEDURES Edited Result - Final * MR Abdomen w/ and w/o Contrast (09/24/2024 2:04 AM EDT) Anatomical Region Laterality Modality Abdomen Magnetic Resonan ce 09/24/2024 2:04 AM EDT Narrative 09/24/2024 2:06 AM EDT [place] [address] Magnetic Resonance Report Signed Patient: Jennifer Palmer MR#: [id number] 0 : 1960 Acct:[id number] Age/Sex: 64 / F ADM Date: 09/23/24 Loc: HO.MRI Attending Dr: Emy Goldsmith MD Ordering Physician: mEy Askew MD Date of Service: 09/23/24 Procedure(s): MR abdomen wo/w con Accession Number(s): [id number] cc: Emy Askew MD CLINICAL HISTORY: rec [...] in OV> 09/24/24204 DD/ 3 TD/TT: 09/24/24203 Railroad Carman: Procedure Note Donotuseinterpreter, Image - 09/24/2024 [place] [address] Magnetic Resonance Report Signed Patient: Axel Palmer#: [id number] 0 : 9Acct:[id number] Age/Sex: 64 / FADM Date: 09/23/24 Loc: HO.MRI Attending Dr: Emy Goldsmith MD Ordering Physician: Emy Askew MD Date of Service: 09/23/24 Procedure(s): MR abdomen wo/w con Accession Number(s): [id number] cc: Emy Askew MD CLINICAL HISTORY: rec [...] in OV> 09/24/24204 DD/ 3 TD/TT: 09/24/24203 Railroad Carman: us Emy Goldsmith MD IMG MRI PROCEDURE S Edited Result - Final * Magnesium (09/19/2024 8:28 AM EDT) Magnesium 2.0 1.6 - 2.6 mg/dL [facility] Blood Venous blood specimen / Unknown 09/19/2024 8:28 AM EDT 09/19/2024 8:28 AM EDT Emy Goldsmith MD LAB BLOOD ORDERAB LES Final Result [facility] [address] [place] [phone] * (ABNORMAL) Comprehensive Metabolic Panel (09/19/2024 8:28 AM EDT) Sodium 141 135 - 145 mmol/L [facility] Potassium 3.1(L) 3.3 - 5.1 mmol/L [facility] Chloride 108 96 - 108 mmol/L [facility] Carbon Dioxide 26 22 - 29 mmol/L [facility] Anion Gap 10(L) 12 - 20 [facility] Urea Nitrogen (BUN) 14 9 - 16 mg/dL [facility] Creatinine, Serum 0.78 0.5 - 1.4 mg/dL [facility] Estimated Glomerular Filt Rate >60 [facility] Comment:Chronic Kidney Disea se: Estimated GFR < 60 mL/min/1.01w4Fefxix Kidney Disease: Estimated GFR < 15 mL/min/1.73m2 Glucose 277(H) 60 - 115 mg/dL [facility] Calcium 9.0 8.4 - 10.2 mg/dL [facility] Bilirubin, Total 0.4 0.0 - 1.0 mg/dL [facility] Aspartate Amino Transferase 20 5 - 31 U/L [facility] Alanine Aminotransferase 17 0 - 31 U/L [facility] Total Protein 7.5 6.5 - 8.0 g/dL [facility] Albumin Level 4.1 3.5 - 5.0 g/dL [facility] Alkaline Phosphatase 141(H) 39 - 117 U/L [facility] Blood Venous blood specimen / Unknown 09/19/2024 8:28 AM EDT 09/19/2024 8:28 AM EDT Emy Goldsmith MD LAB BLOOD ORDERAB LES Final Result [facility] [address] [place] [phone] * (ABNORMAL) POCT HGB A1C (09/11/2024 9:28 AM EDT) Hemoglobin A1C 8.3(A) 4.0 - 5.7 % QC Media Lot # [id number] Lot# Expiration Date 3, Blood 09/11/2024 9:28 AM EDT Emy Goldsmith MD POINT OF CARE KALEN T ENTER/EDIT ORDERABLES Final Result * (ABNORMAL) POCT Glucose (09/11/2024 9:28 AM EDT) Pathologist [facility] Glucose Blood, POC 325(A) 60 - 200 [...] PM EST Narrative 03/28/2024 10:52 AM EST [address] [place] [address] Mammography Report Signed Patient: Jennifer Palmer MR#: [id number] 0 : 1960 Acct:[id number] Age/Sex: 63 / F ADM Date: 03/17/24 Loc: HO.MAMMO Attending Dr: Emy Goldsmith MD Ordering Physician: Emy Askew MD Re sults: 1Negative Date of Service: 03/17/24 Follow Up: 1 Year From Orig inal Mammogram Procedure(s): MM tomosynthesis screening BI Accession Number(s): [id number] cc: Emy Askew MD EXAMINATION: MM SCREENING [...] 03/28/24 1049 DD/ 1300 TD/TT: 03/17/24 1320 Railroad Carman: Procedure Note Donotuseinterpreter, Image - 03/28/2024 [facility] [address] [place] [address] Dr. [place], [place] [address] Mammography Report Signed Patient: Axel Palmer#: [id number] 0 : 9Acct:[id number] Age/Sex: 63 / FADM Date: 03/17/24 Loc: HO.MAMMO Attending Dr: Emy Goldsmiht MD Ordering Physician: Emy Askew sults: 1Negative Date of Service: 03/17/24Follow Up: 1 Year From Orig inal Mammogram Procedure(s): MM tomosynthesis screening BI Accession Number(s): [id number] cc: Emy Askew MD EXAMINATION: MM SCREENING [...] for their next mammogram. Electronically signed by: aSdia Monae DO 03/28/2024 10:49 AM EST Dictated By: Sadia Monae DO Signed By: <Electronically signed by Sadia Monae DO in OV> 03/28/24 1049 DD/ 1300 TD/TT: 03/17/24 1320 Railroad Carman: us Emy Goldsmith MD IMG BI PROCEDURES Final Result * (ABNORMAL) Lipid Panel, Standard (12/25/2023 7:08 AM EDT) Triglycerides 232(H) <150 mg/dL [facility] Comment:Desirable Triglyceri de: less than 150 mg/dLBorderline High Triglyceride 150-199 mg/dLHigh Triglyceride: 200-499 mg/dLVery High Triglyceride: greater than or equal to 5OO mg/dL Cholesterol 154 <200 mg/dL [facility] Comment:Desirable Cholestero l: less than 200 mg/dLBorderline High Cholesterol: 200-239 mg/dLHigh Cholesterol: greater than 239 mg/dL LDL Cholesterol Calculated 64 <100 mg/dL [facility] Comment:Desirable LDL: less than 100 mg/dLNear Optimal/Above Optimal LDL: 110- 129 mg/dLBorderline High LDL: 130-159 mg/dLHigh LDL: 160-189 mg/dLVery High LDL: greater than or equal to 190 mg/dL HDL Cholesterol 44 >40 mg/dL [facility] Comment:Desirable HDL: great er than 40 mg/dL Note: This HDL assay may give artificially low results in patients with liver disease. Blood Venous blood specimen / Unknown 12/25/2023 7:08 AM EDT 12/25/2023 7:09 AM EDT us Emy Goldsmith MD LAB BLOOD ORDERAB LES Final Result [facility] [address] [place] [phone] * (ABNORMAL) Albumin, Random Urine W/Creatinine (12/25/2023 7:05 AM EDT) Creatinine, Urine 50.21 mg/dL [facility] Microalbumin Urine 78.0 mg/L [facility] Microalbum Creatinine Ratio Ur 155.3(H) <30 ug/mg cr [facility] Comment:Albumin/Creatinine R atio Reference Ranges: Normal: < 30 ug/mg creatinine Microalbuminuria: 30 - 300 ug/mg creatinineClinical Albuminuria: > 300 ug/mg creatinine Urine (Urine, Random) 12/25/2023 7:05 AM EDT 12/25/2023 7:49 AM EDT us Emy Goldsmith MD LAB URINE ORDERAB LES Final Result [facility] [address] [place] [address] [phone] * HPV mRNA E6/E7 w/Reflex to HPV Genotypes 16, 18/45 (05/27/2023 10:50 AM EDT) HPV nRNA E6/E7 Not Detected Not Detected [facility] LABS Comment:Methodology: Transcr iption-Mediated AmplificationThis assay detects E6/E7 viral messenger RNA (mRNA) from 14high-risk HPV types (16,18,31,33,35,39,45,51,52,56,58,59,66,68).Cervical sources are required for HPV testing.If a vaginal source from a patient who has had atotal hysterectomy with removal of cervix wassubmitted, please contact the testing laboratoryfor alternative testing options.For additional information, please refer [email or web address]/[email or web address](This link if provided for information/educational purposes only.)THIS TEST WAS PERFORMED AT:[facility] [place] [id number] CAMARENA MD HPV mRNA E6/E7 [facility] HPV 16 RNA [facility] HPV 18/45 RNA [facility] 05/27/2023 10:5 0 AM EDT 05/28/2023 11:50 AM EDT us Alden Cai CNM LAB CYTOLOGY ORDERABLES F inal Result [facility] [address] [place] [address] [phone] * Pap Smear (05/27/2023 10:50 AM EDT) Swab Cervix uteri structure / Unknown 05/27/2023 10:50 AM EDT 05/28/2023 11:50 AM EDT [facility]S - 06/09/2023 5:49 PM EDT ----- ------- Name: Jennifer Palmer Age/Sex: 62/F : 1960 Unit#: [id number] Attend Dr: ALDEN CAI CNM Re05/27/23 Status: [facility] Disch: ----- ------- SPEC : [id number] RECD: 05/28/23-1150 STATUS: CORRIE VELEZ NUM: [id number] PRANAY: 05/27/23-[address] [facility] [address]: ALDEN CAI CNM ENTERED: 05/28/23-1305 SP TYPE: Pap Smr [facility] DR: ORDERED: Pap Smear Interpretation Satisfactory for evaluation. Negative for intraepithelial lesion or malignancy. Atrophic. HPV mRNA E6/E7: NOT DETECTED This assay detects E6/E7 viral messenger RNA (mRNA) from 14 high-risk HPV types (16, 18, 31, 33, 35, 39, 45, 51, 52, 56, 58, 59, 66, 68) HPV testing performed by [facility], [place], [place]. See reference laboratory portion of the EMR for entire report. Clinical Information LMP: Postmenopausal Previous PAP test: Unknown date/findings Material Received ThinPrep-Vaginal/Cervical ----- ------- Signed (signature on file) Esther Gutierres 06/09/23 1749 ----- ------- END OF REPORT Alden MEDEIROS LAB CYTOLOGY ORDERABLES F inal Result Performing Organization Address [facility] Co de Phone Number [facility] [address] [place] [address] [phone] * Hm Colonoscopy (05/09/2023 6:56 PM EST) Historical Provider HEALTH MAINTENANCE Final Result * Hepatitis C Antibody Reflex (10/04/2022 9:42 AM EDT) Hepatitis C Antibody Nonreactive Nonreactive [facility] Comment:Antibodies to HCV no t detected; does not exclude early acuteHCV infection. 10/04/2022 9:42 AM EDT 10/04/2022 9:43 AM EDT Emy Goldsmith MD LAB BLOOD ORDERAB LES Final Result Performing Organization Address [facility] Co de Phone Number [facility] [address] [place] [address] [phone] from Last 3 Months or Most Recently Relevant to Health Maintenance Insurance [facility] RESIDENTIAL OPTIONS (HMO D-SNP) [facility] MEDICAID STAND ADULT Care Teams It Applications Manager Relationship Specialty Start Date End Date Emy Askew MD [address] [place] [address] PCP - General Internal Medicine 07/25/22
--- OUTSIDE RECORDS SUMMARY | 2024-11-26 09:31 | XMS_ITS | Encounter Summary ---
Author Organization [employer] Address [address] [place] [address] 7 [place] [address] Care Team Providers Care Body And Frame Man Name Role Phone Emy Askew MD Primary Care Pro vider Reason for Visit * Reason Comments Med Refill Encounter Details Date Type Department Care Team ([facility] st Contact Info) Description 02/09/2023 Refill [facility] [address] [place] [address] Emy Askew MD [address] [place] [address] Social History Tobacco Use Types Packs/Day Years [...] 9:30 AM EST Office Visit [facility] OPTOMETRY [address] [place], [place] [phone] Rachel Collado, OD [address] [place], [place] [phone] documented as of this encounter Visit Diagnoses Not on filedocumented in this encounter Additional Health Concerns Assessment Noted Time PHQ-9 Depression Total Score: 16 023 10:16 AM EDT documented as of this encounter Care Teams Body And Frame Man Relationship Specialty Start Date End Date Emy Askew MD [address] [place], [place] [phone] PCP - General Internal Medicine 07/25/22 documented as of this encounter
== END 2024-11-26 09:14 | disposition home or self-care (01) ==
LOC: HO.HPODS 08:52
PROVIDERS: PCP Student in an Organized Health Care Education/Training Program; Visit Provider Student in an Organized Health Care Education/Training Program
DX: E11.42 Type 2 diabetes mellitus with diabetic polyneuropathy (principal); R20.2 Paresthesia of skin; L60.3 Nail dystrophy; B35.1 Tinea unguium
CPT/HCPCS: 99204; G9226

== ENCOUNTER → 2024-11-26 08:51 | Outpatient (BNVA) | payer OTHER, SELFPAY | PROVIDERS: PCP Student in an Organized Health Care Education/Training Program; Visit Provider Student in an Organized Health Care Education/Training Program | DX: E11.42 Type 2 diabetes mellitus with diabetic polyneuropathy (principal); R20.2 Paresthesia of skin; L60.3 Nail dystrophy; B35.1 Tinea unguium | CPT/HCPCS: 99202 ==

== ENCOUNTER 2024-12-14 08:55 | Emergency (ER) | payer OTHER, SELFPAY ==
--- NOTE | ~2024-12-14 | CT_ITS ---
CLINICAL HISTORY: painful swelling R side of neck CT soft tissue neck with contrast Comparison: None provided Findings: The visualized intracranial contents are unremarkable. No prevertebral fluid. Epiglottis is within normal limits. Pharyngeal mucosal space and parapharyngeal fat are normal. There is a mild degree of lymphadenopathy within the neck, predominating within the right carotid space. Lymph nodes measure up to 11 mm in short axis dimension. There is extensive fatty replacement of parenchyma within the bilateral submandibular and parotid glands. No suspicious thyroid nodules. There are trace bilateral pleural effusions. There is no consolidative process. No acute fractures. There is edema of the soft tissues of the lateral aspect of the right side of the neck. There is no associated fluid collection. Multiple missing teeth. No periodontal abscess. IMPRESSION: 1. Edema of the right lateral neck suggesting an inflammatory process. 2. Mild lymphadenopathy within the neck, most likely inflammatory. 3. Trace bilateral pleural effusions. This document has been electronically signed by: Lakeshia Ellsworth MD on 12/14/2024 13:19:43
[2024-12-14 09:07] VITALS: BP 142/85; PULSE 81; RESP 18; TEMP 36.2; O2SAT 97; BMI 27.4
--- OUTSIDE RECORDS SUMMARY | 2024-12-14 09:42 | XMS_ITS | Encounter Summary ---
Author Organization [employer] Address [address] [place] [address] Care Team Providers Care Insurance Sales Executive Name Role Phone Emy Askew MD Primary Care Pro vider Reason for Visit * Reason Onset Date Comments pre-op paperwork 10/18/2022 Encounter Details Date Type Department Care Team ([facility] st Contact Info) Description 10/18/2022 Telephone [facility]INE [address] [place] [address] Emy Askew MD [address] [place] [address] pre-op paperwork Social History Tobacco Use Types [...] methotrexate and leflunomide??( if ok with her agent based modeler)-pt to confirm and Cymbalta if taking in am. Hold am of surgery lasix,amytriptiline,lisinopril ??.HoldASA 5 days prior procedure and avoid NSAIDS 7 days prior procedure. Thanks documented in this encounter Plan of Treatment Upcoming Encounters Date Type Department Care Team (Late st Contact Info) Description 02/11/2025 9:30 AM EST Office Visit [facility] MEDICINE [address] [place] [address] Emy Askew MD [address] [place] [address] 03/19/2025 9:30 AM EST Office Visit [facility] OPTOMETRY [address] [place] [address] Rachel Collado, OD [address] [place] [address] documented as of this encounter Visit Diagnoses Not on filedocumented in this encounter Additional Health Concerns Assessment Noted Time PHQ-9 Depression Total Score: 16 023 10:16 AM EDT documented as of this encounter Care Teams Insurance Sales Executive Relationship Specialty Start Date End Date Emy Askew MD [address] [place] [phone] PCP - General Internal Medicine 07/25/22 documented as of this encounter
--- OUTSIDE RECORDS SUMMARY | 2024-12-14 09:42 | XMS_ITS | Encounter Summary ---
Author Organization [employer] Address [address] [place] [address] Care Team Providers Care Blackjack Dealer Name Role Phone Emy Askew MD Primary Care Pro vider Encounter Details Date Type Department Care Team ([facility] st Contact Info) Description 02/23/2024 Orders Only [facility]INE [address] [place] [address] Provider, MD Waylon Social History Tobacco Use [...] Description 02/11/2025 9:30 AM EST Office Visit [facility] [address] [place] [address] Emy Askew MD [address] [place] [address] 03/19/2025 9:30 AM EST Office Visit [facility] OPTOMETRY [address] [place] [address] Tobias, Rachel, OD [address] [place] [address] documented as of this encounter Procedures Procedure [...] documented as of this encounter Care Teams Blackjack Dealer Relationship Specialty Start Date End Date Emy Askew MD [address] [place] [phone] PCP - General Internal Medicine 07/25/22 documented as of this encounter
--- OUTSIDE RECORDS SUMMARY | 2024-12-14 09:42 | XMS_ITS | Encounter Summary ---
Author Organization [employer] Address [address] [place] [address] 7t [place] [address] Care Team Providers Care Telephony Engineer Name Role Phone Kenya Sol TOOL SMITH Primary Care Provider [phone] Emy Askew MD Primary Care Pro vider Encounter Details Date Type Department Care Team (Late st Contact Info) Description 05/28/2022 Orders Only [facility] MED & PEDS [address] [place], [place] [phone] Candy Miller LPN Social History Tobacco Use [...] Department Care Team (Late Contact Info) Description 02/11/2025 9:30 AM EST Office Visit [facility] MEDICINE [address] [place], [place] [phone] Emy Askew MD [address] [place], [place] [phone] 03/19/2025 9:30 AM EST Office Visit [facility] OPTOMETRY [address] [place], [place] [phone] Rachel Collado OD [address] [place] [address] documented as of this encounter Visit Diagnoses Not on filedocumented in this encounter Care Teams Telephony Engineer Relationship Specialty Start Date End Date Kenya Sol FNP [address] [place] [phone] PCP - General Family Medicine 01/22/22 07/24/22 Emy Askew MD [address] [place] [address] [phone] PCP - General Internal Medicine 07/25/22 documented as of this encounter
--- OUTSIDE RECORDS SUMMARY | 2024-12-14 09:42 | XMS_ITS | Encounter Summary ---
Author Organization [employer] Address [address] [place] [address] [address] [place] [address] Care Team Providers Care Credit Reference Clerk Name Role Phone [facility] Primary Care Provider Emy Askew MD Primary Care Pro vider Reason for Visit * Reason Onset Date Comments Appointment Request 06/07/2022 Encounter Details Date Type Department Care Team ([facility] st Contact Info) Description 06/07/2022 Telephone [facility] MED[facility]INE [address] [place] [address] [facility] [address] [place] [address] Appointment Request Social History Tobacco Use Types [...] with new provider. Please contact pt at [phone] documented in this encounter Plan of Treatment Upcoming Encounters Date Type Department Care Team (Late st Contact Info) Description 02/11/2025 9:30 AM EST Office Visit [facility] MED[facility]INE [address] [place] [address] Emy Askew MD [address] [place] [address] 03/19/2025 9:30 AM EST Office Visit [facility] OPTOMETRY [address] [place] [address] Rachel Collado, OD [address] [place] [address] documented as of this encounter Visit Diagnoses Not on filedocumented in this encounter Care Teams Credit Reference Clerk Relationship Specialty Start Date End Date Kenya Sol, [employer] [address] [place] [phone] PCP - General Family Medicine 01/22/22 07/24/22 Emy Askew MD [address] [place] [phone] PCP - General Internal Medicine 07/25/22 documented as of this encounter
--- OUTSIDE RECORDS SUMMARY | 2024-12-14 09:42 | XMS_ITS | Clinical Summary ---
Author Organization [facility] Address [address] [place] [address] Phone Care Team Providers Care Job Coaching Name Role Phone Berkley Bird MD Primary Care Provider [phone] Allergies Active Allergy Reactions Criticality Noted Date [...] Last Done Comments Breast Cancer Screening 1960 Colorectal Cancer Screening: Colonoscopy 1960 Diabetes: Annual Foot Exam 1968 Diabetes: Annual Retina Eye Exam 1968 Falls Risk Assessment 01/22/2024 Hepatitis C Screening [...] [facility] Comment:Calculation based on the [...] DPM LAB BLOOD ORDERABLES Final Result [facility] [address] [place] [address], [place] [phone] from Last 3 Months or Most Recently Relevant to Health Maintenance Insurance [facility] MEDICARE Member Subscriber Plan / Payer (Ef fective 2023-Present) Name:Jennifer Payton Relation to Subscriber:Self Name:Jennifer Palmer Payer ID:[id number] Group ID:[id number] Type:Not on file Address: [place] [address] [address] [place] [address] Care Teams Job Coaching Relationship Specialty Start Date End Date Berkley Bird MD [address] [address] PCP - General Internal Medicine 02/20/24
--- OUTSIDE RECORDS SUMMARY | 2024-12-14 09:42 | XMS_ITS | Encounter Summary ---
Author Organization [employer] Address [address] [place] [address] Care Team Providers Care Chicken Raiser Name Role Phone Emy Askew MD Primary Care Pro vider Encounter Details Date Type Department Care Team ([facility] st Contact Info) Description 08/07/2023 Orders Only [facility] CHC MED & PEDS [address] [place] [address] Valeria Armas FNP [address] [place] [address] Social History Tobacco Use Types Packs/Day Years [...] Description 02/11/2025 9:30 AM EST Office Visit [facility] MEDICINE [address] [place] [address] Emy Askwe MD [address] [place] [address] 03/19/2025 9:30 AM EST Office Visit [facility] OPTOMETRY [address] [place] [address] Tobias, Rachel, OD [address] [place] [address] documented as of this encounter Visit Diagnoses Not on filedocumented in this encounter Additional Health Concerns Assessment Noted Time PHQ-9 Depression Total Score: 16 023 10:16 AM EDT documented as of this encounter Care Teams Chicken Raiser Relationship Specialty Start Date End Date Emy Askew MD [address] [place] [address] PCP - General Internal Medicine 07/25/22 documented as of this encounter
--- OUTSIDE RECORDS SUMMARY | 2024-12-14 09:42 | XMS_ITS | Encounter Summary ---
Author Organization [employer] Address [address] [place] [address] 7t [place] [address] Care Team Providers Care Package Winder Name Role Phone [facility] Primary Care Provider [phone] Emy Askew MD Primary Care Pro vider Reason for Visit * Reason Onset Date Comments Med Refill 05/11/2022 Encounter Details Date Type Department Care Team (Late st Contact Info) Description 05/11/2022 Telephone [facility] MEDICINE [address] [place] [address] [facility] [address] [place] [address] Med Refill Social History Tobacco Use Types [...] today. * Telephone Encounter - Junecassie Wakefield Vinay - 05/11/2022 10:22 AM EST Tc from pt requesting a Blood Glucose Monitoring Suppl (FreeStyle Lite) w/Device kit Pt claims that she has lost the device. Please sent to [facility] - [place], [place] - [address] [place] [address] documented in this encounter Plan of Treatment Upcoming Encounters Date Type Department Care Team ([facility] st Contact Info) Description 02/11/2025 9:30 AM EST Office Visit [facility] MEDICINE [address] [place] [address] Emy Askew MD 230 [place] [address] 03/19/2025 9:30 AM EST Office Visit [facility] OPTOMETRY [address] [place] [address] Tobias, Rachel, OD 230 [place] [address] documented as of this encounter Visit Diagnoses Not on filedocumented in this encounter Care Teams Package Winder Relationship Specialty Start Date End Date [place] Kenya, CINDER BLOCK MASON [address] [place] [address] PCP - General Family Medicine 01/22/22 07/24/22 Emy Askew MD [address] [place] [address] PCP - General Internal Medicine 07/25/22 documented as of this encounter
--- OUTSIDE RECORDS SUMMARY | 2024-12-14 09:42 | XMS_ITS | Clinical Summary ---
Author Organization [facility] Address [address] [place] [address] Phone Care Team Providers Care Health Lead Name Role Phone Mark Foote MD Primary [...] topic Medical Devices Not on file Insurance [place] [address] [employer] [facility] C3 ACO [employer] Care Teams Health Lead Relationship Specialty Start Date End Date Mark Foote MD [address] [place] [address] PCP - General Pediatrics 10/15/19 Additional Source Comments The information contained in this document represents components of the legal health record. It is not the complete legal health record.[facility]
--- OUTSIDE RECORDS SUMMARY | 2024-12-14 09:42 | XMS_ITS | Encounter Summary ---
Author Organization [employer] Address [address] [place] [address] 7t [place] [address] Care Team Providers Care Plow And Boring Machine Tender Name Role Phone Ebenezer Kenya SIZE TESTER Primary Care Provider [phone] Emy Askew MD Primary Care Pro vider Encounter Details Date Type Department Care Team (Late st Contact Info) Description 03/26/2022 Orders Only [facility] MEDICINE [address] [place], [place] [phone] Lizett Cannon LPN Social History Tobacco Use [...] Description 02/11/2025 9:30 AM EST Office Visit [facility] MEDICINE [address] [place], [place] [phone] Emy Askew MD 230 [place], [place] [phone] 03/19/2025 9:30 AM EST Office Visit [facility] OPTOMETRY [address] [place] [address] [phone] Rachel Collado, OD 230 [place], [place] [phone] documented as of this encounter Visit Diagnoses Not on filedocumented in this encounter Care Teams Plow And Boring Machine Tender Relationship Specialty Start Date End Date Kenya Sol FNP 230 [place], [place] [phone] PCP - General Family Medicine 01/22/22 07/24/22 Emy Askew MD 230 [place], [place] [phone] PCP - General Internal Medicine 07/25/22 documented as of this encounter
--- OUTSIDE RECORDS SUMMARY | 2024-12-14 09:42 | XMS_ITS | Encounter Summary ---
Author Organization [employer] Address [address] [place] [address] 7 [place] [address] Care Team Providers Care Ornamenter Name Role Phone Cyn Bosch MD Primary Care Provider Michelle ndedith [facility] Primary Care Provider [phone] Emy Askew MD Primary Care Pro vider Encounter Details Date Type Department Care Team (Latest Contact Info) Description 05/09/2020 Abstract [facility] CONVERSIONS Dental, Provider, DDS Social [...] Description 02/11/2025 9:30 AM EST Office Visit [facility] MEDICINE 230 [place] [address] Emy Askew MD 230 [place] [address] 03/19/2025 9:30 AM EST Office Visit [facility] OPTOMETRY [address] [place] [address] Rachel Collado, OD 230 [place] [address] documented as of this encounter Visit Diagnoses Not on filedocumented in this encounter Care Teams Ornamenter Relationship Specialty Start Date End Date Cyn Bosch MD PCP - General Family Medicine 08/20/19 01/21/22 [place] FNP [address] [place] [address] PCP - General Family Medicine 01/22/22 07/24/22 Emy Askew MD [address] [place] [address] PCP - General Internal Medicine 07/25/22 documented as of this encounter
--- OUTSIDE RECORDS SUMMARY | 2024-12-14 09:42 | XMS_ITS | Encounter Summary ---
Author Organization [employer] Address [address] [place] [address] 7t [place] [address] Care Team Providers Care Golf Shoe Spike Assembler Name Role Phone [facility] Primary Care Provider [phone] Emy Askew MD Primary Care Pro vider Reason for Visit * Reason Onset Date Comments VISION 03/13/2022 Encounter Details Date Type Department Care Team ([facility] st Contact Info) Description 03/13/2022 Telephone [facility] MEDICINE [address] [place] [address] [facility] 230 [place] [address] VISION Social History Tobacco Use Types Packs/Day [...] center regarding an eye exam. Please contact [phone] documented in this encounter Plan of Treatment Upcoming Encounters Date Type Department Care Team (Late st Contact Info) Description 02/11/2025 9:30 AM EST Office Visit [facility] MEDICINE [address] [place] [address] Emy Askew MD 230 [place] [address] 03/19/2025 9:30 AM EST Office Visit [facility] OPTOMETRY [address] [place] [address] Tobias, Rachel, OD 230 [place] [address] documented as of this encounter Visit Diagnoses Diagnosis Diabetes 1.5, managed as type 2 (HCC) documented in this encounter Care Teams Golf Shoe Spike Assembler Relationship Specialty Start Date End Date [place] FNP 230 [place] [address] PCP - General Family Medicine 01/22/22 07/24/22 Emy Askew MD [address] [place] [address] [phone] PCP - General Internal Medicine 07/25/22 documented as of this encounter
--- OUTSIDE RECORDS SUMMARY | 2024-12-14 09:42 | XMS_ITS | Encounter Summary ---
Author Organization [employer] Address [address] [place] [address] Care Team Providers Care Stain Maker Name Role Phone Emy Askew MD Primary Care Pro vider Reason for Visit * Reason Onset Date Comments Triage 07/31/2022 Encounter Details Date Type Department Care Team ([facility] st Contact Info) Description 07/31/2022 Telephone [facility] MEDICINE [address] [place] [address] Emy Askew MD [address] [place] [address] Triage Social History Tobacco Use Types Packs/Day [...] The caller accepted this outcome Patient speaks german. documented in this encounter Plan of Treatment Upcoming Encounters Date Type Department Care Team (Late st Contact Info) Description 02/11/2025 9:30 AM EST Office Visit [facility] MEDICINE [address] [place] [address] Emy Askew MD [address] [place] [address] 03/19/2025 9:30 AM EST Office Visit [facility] OPTOMETRY [address] [place], [place] [phone] Rachel Collado, OD 230 [place] [address] documented as of this encounter Visit Diagnoses Not on filedocumented in this encounter Care Teams Stain Maker Relationship Specialty Start Date End Date Emy Askew MD [address] [place] [address] PCP - General Internal Medicine 07/25/22 documented as of this encounter
--- OUTSIDE RECORDS SUMMARY | 2024-12-14 09:42 | XMS_ITS | Encounter Summary ---
Author Organization [employer] Address [address] [place] [address] 7 [place] [address] Care Team Providers Care Assembler Corncob Pipes Name Role Phone Cyn Bosch MD Primary Care Provider Michelle mdedith [facility] Primary Care Provider [phone] Emy Askew MD Primary Care Pro vider Encounter Details Date Type Department Care Team (Latest Contact Info) Description 10/26/2021 Abstract [facility] CONVERSIONS Dental, Provider, [...] Description 02/11/2025 9:30 AM EST Office Visit [facility] MEDICINE 230 [place] [address] Emy Askew MD 230 [place] [address] 03/19/2025 9:30 AM EST Office Visit [facility] OPTOMETRY [address] [place] [address] Rachel Collado, OD 230 [place] [address] documented as of this encounter Visit Diagnoses Not on filedocumented in this encounter Care Teams Assembler Corncob Pipes Relationship Specialty Start Date End Date Cyn Bosch MD PCP - General Family Medicine 08/20/19 01/21/22 [place] FNP [address] [place] [address] PCP - General Family Medicine 01/22/22 07/24/22 Emy Askew MD [address] [place] [address] PCP - General Internal Medicine 07/25/22 documented as of this encounter
--- OUTSIDE RECORDS SUMMARY | 2024-12-14 09:42 | XMS_ITS | Encounter Summary ---
Author Organization [employer] Address [address] [place] [address] 7 [place] [address] Care Team Providers Care Power Project Manager Name Role Phone Emy Askew MD Primary Care Pro vider Reason for Visit * Reason Comments Med Refill Encounter Details Date Type Department Care Team ([facility] Contact Info) Description 02/14/[address] [facility] MEDICINE [address] [place] [address] Emy Askew MD [address] [place] [address] Social History Tobacco Use Types Packs/Day Years [...] Description 02/11/2025 9:30 AM EST Office Visit [facility] MEDICINE [address] [place] [address] Emy Askew MD [address] [place] [address] 03/19/2025 9:30 AM EST Office Visit [facility] OPTOMETRY [address] [place] [address] Tobias, Rachel, OD 230 [place] [address] documented as of this encounter Visit Diagnoses Not on filedocumented in this encounter Additional Health Concerns Assessment Noted Time PHQ-9 Depression Total Score: 10 024 2:37 PM EDT documented as of this encounter Care Teams Power Project Manager Relationship Specialty Start Date End Date Emy Askew MD [address] [place] [address] PCP - General Internal Medicine 5/24/23 documented as of this encounter
--- OUTSIDE RECORDS SUMMARY | 2024-12-14 09:42 | XMS_ITS | Data Portability ---
Author Organization [place] [facility] Address [address] [place] [phone] Assessment No assessment recorded. Plan of Treatment Reminders Order Date Submit Date Provider Last Modified By Organization Details Last Modified Time Details Appointments None recorded. Lab None recorded. Referral None recorded. Procedures None recorded. Surgeries None recorded. Imaging [place], modified barium swallow study [address] [place] [address] Diagnosit Imaging Dept, [address] [place] [address], [address], 5 11:51:40 Medication Orders None recorded. Patient TargetsNo targets recorded. Patient InstructionsNo instructions recorded. Reason for Referral None Reported. 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 4 02:27:37 Chronic sialadeni tis 373474647 Active 2016 Chronic sialoadeni tis; Note: Date Diagnosed: 07/04/2016 2:17 PM (K11.23) Not Available 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 4 02:27:47 Dysphonia 88486850 Active 2017 Hoarseness ; Note: Date Diagnosed: 02/17/2018 9:52 AM (R49.0) Not Available [facility] 4 02:27:44 Dysphagia 33472268 Active 2018 Other dysphagia; Note: Date Diagnosed: 05/13/2018 9:47 AM (R13.19) Not Available [facility] 4 02:27:43 Disturban ce of salivary secretion 40300816 Active 2018 Xerostomia ; Note: Date Diagnosed: 05/13/2018 9:47 AM (K11.7) Not Available [facility] 4 02:27:54 Bilateral hearing loss 14637674 Active 2018 Other specified hearing loss, bilateral; Note: Date Diagnosed: 08/12/2018 10:01 AM (H91.8X3) Not Available [facility] 4 02:27:41 Oropharyn geal dysphagia 70869613 Active 2024 UMESH DIAZ MD [address] [place] [address], [place], [phone] , [facility] 5 13:35:47 Problem Notes None recorded. Procedures Surgical History Date Name Laterality Status Provider Name and Address Organization Details Recorded Time 03/13/2024 FFL_RE completed UMESH DIAZ MD [address] [place] [address], [phone], [facility] 03/13/2024 13:36:13 Imaging Results None recorded. Procedure Notes None recorded. Medical Equipment None Reported. Allergies Allergen ID Allergen Name Allergen Category Reaction Reaction Severity Criticality Documentation Date Start Date Code Code System Note Provider Name and Address Organization Details Recorded Time 14863 Bactrim medicatio n other Not available Not available 07/16/2023 87534 9 RxNorm React ion: unkno wn, unspe cifie d;; Not Available [facility] 4 00:55:51 99894 codeine sulfate medicatio n other Not available Not available 07/16/2023 46732 RxNorm React ion: unkno wn, unspe cifie d;; Not Available [facility] 4 00:55:56 Medications Name Sig Start Date Stop Date Status Note LastModified by Organization Details LastModified Time medbox status USE DIRECTED active Not Available Not Available No t Available furosemid e 40 mg tablet TAKE 1 TABLET BY MOUTH EVERY MORNING active Not Available Not Available No t Available Augmentin 875 mg-125 mg tablet 2017 active Medicati on ID: 212227 D uration Value: 5 Prescri bed By [...] nebulizat ion 2018 active Medicati on ID: 005806 D uration Value: 5 Brand Name: albutero [...] mg tablet 2018 active Medicati on ID: 634262 D uration Value: 30 Brand Name: lisinopr [...] mg tablet 2018 active Medicati on ID: 199368 D uration Value: 30 Brand Name: buspiron e Send Method: E-Prescr ibed Sub s Allowed: subs OK Speci al Instruct ion: TAKE 1 TABLET BY MOUTH THREE TIMES DAILY NEEDED ANXIETY Medicati onGeneri cName: buspiron e Not Available Not Available Not Available Tiazac 120 mg capsule,e xtended release 02/04 completed Medicati on ID: 94237 Re ason: () Brand Name: Tiazac S [...] elayed release 2018 active Medicati on ID: 562172 D uration Value: 30 Brand Name: omeprazo le Send Method: E-Prescr ibed Sub s Allowed: subs OK Speci al Instruct ion: TAKE 1 CAPSULE TWICE DAILY IN THE MORNING AND IN THE EVENING 1 HORA AN KALEN DE LAS COMIDAS Medicati onGeneri cName: omeprazo le Not Available Not Available Not Available Aspirin Childrens 81 mg chewable tablet 2013 active Medicati on ID: 25609 Br and Name: Aspirin Children s Send [...] mg tablet 2018 active Medicati on ID: 822054 D uration Value: 30 Brand Name: levon post ne Send Method: E-Prescr ibed Sub s Allowed: subs OK Speci al Instruct ion: TAKE 2 TABLETS BY MOUTH ONCE DAILY IN THE MORNING Medicati onGeneri cName: levon jenkinsqui ne Not Available Not Available Not Available ibuprofen 600 mg tablet 2018 active Medicati on ID: 690551 D uration Value: 30 Brand Name: ibuprofe [...] 24 hr 2018 active Medicati on ID: 645746 D uration Value: 30 Brand Name: metformi n Send Method: E-Prescr ibed Sub s Allowed: subs OK Speci al Instruct ion: TAKE 1 TABLET BY MOUTH TWICE DAILY IN THE MORNING AND IN THE EVENING W ITH FOOD Med icationG enericNa me: metformi n Not Available Not Available Not Available Ambien 5 mg tablet 2013 active Medicati on ID: 62123 Br and Name: Ambien S end Method: [...] mg capsule 2013 active Medicati on ID: 10807 Br and Name: Kade Rivera end Method: [...] inhalatio n 2018 active Medicati on ID: 007302 D uration Value: 30 Brand Name: Breo [...] subcutane ous 2018 active Medicati on ID: 883832 D uration Value: 35 Brand Name: Humulin [...] Updated DateTime 03/13/2024 157.48 cm 26 kg/m2 46086.12 g Shantell Wise [place] [facility] 03/13/2024 13:27:58 Social History None recorded. Functional Status None recorded. Mental Status None recorded. Family History Nothing Reported. Medical History No medical history recorded. Gynecological HistoryNo gynecological history recorded. Obstetrics History GPAL:G 0 P 0 0 0 0 Past Encounters Encounter ID Performer Location Encounter Start Date Encounter Closed Date Diagnosis/Indication Diagnosis SNOMED-CT Code Diagnosis ICD10 Code Diagnosis IMO Codes Diagnosis Note [id number] UMESH DIAZ MD [facility] [address] [place] [address] 03/13/2024 13:18:07 03/13/2024 13:52:50 Oropharyngeal dysphagia 71355905 R13.12 Exam and laryngosco py were normal. I recommend a swallow study (MBS) to reassess her swallow. F/u after. If normal I would suggest GI referral especially given her Sjogrens. Sj gren's syndrome 99620416 M35.00 Encouraged hydration. Will consider GI referral [...] (MEDICARE REPLACEMENT/AD VANTAGE - PPO) Jennifer Gu [id number] Jennifer Gu Notes Date Note Type Note [...] eyes and dry mouth. UMESH DIAZ MD [address] [place] [address], [phone], [place] [facility] 03/13/2024 13:43:36 OBGyn Episode No OBEpisode recorded.
--- OUTSIDE RECORDS SUMMARY | 2024-12-14 09:43 | XMS_ITS | Encounter Summary ---
Author Organization [employer] Address [address] [place] [address] 7 [place] [address] Care Team Providers Care Mix House Operator Name Role Phone Emy Askew MD Primary Care Pro vider Reason for Visit * Reason Comments Med Refill Encounter Details Date Type Department Care Team ([facility] st Contact Info) Description 02/09/[address] [facility] MEDICINE [address] [place] [address] Emy Askew MD [address] [place] [address] Social History Tobacco Use Types Packs/Day Years [...] 02/11/2025 9:30 AM EST Office Visit [facility] MEDICINE [address] [place] [address] Emy Askew MD [address] [place] [address] 03/19/2025 9:30 AM EST Office Visit [facility] OPTOMETRY [address] [place] [address] Tobias, Rachel, OD 230 [place] [address] documented as of this encounter Visit Diagnoses Not on filedocumented in this encounter Additional Health Concerns Assessment Noted Time PHQ-9 Depression Total Score: 16 023 10:16 AM EDT documented as of this encounter Care Teams Mix House Operator Relationship Specialty Start Date End Date Emy Askew MD [address] [place] [address] PCP - General Internal Medicine 07/25/22 documented as of this encounter
--- OUTSIDE RECORDS SUMMARY | 2024-12-14 09:43 | XMS_ITS | Clinical Summary ---
Author Organization [employer] Address [address] [place] [address] 7[address] [place] [address] Care Team Providers Care Sheet Metal Production Worker Name Role Phone Emy Askew MD [...] each 12 025 2025 Active Continuous Glucose Office Communication Professor (FreeStyle Anthony [address] [place]) deviceIndication s:Type 2 diabetes mellitus without complication, unspecified whether alf insulin use 1 each Once per day. Use as directed for CGM 1 each Active Continuous Glucose Sensor (FreeStyle Anthony 3 Plus Sensor) miscIndications: Type 2 diabetes mellitus without complication, unspecified whether terminal operator insulin use 1 each every 15 days. Use to [...] diabetes mellitus without complication, unspecified whether terminal operator insulin use USE DIRECTED FIVE TIMES DAILY 100 each [...] MOUTH EVERY MORNING 90 tablet 025 Active loratadine (Claritin) 10 MG tablet [...] THE EVENING 60 tablet 2 025 Active cloNIDine (Catapres) 0.2 MG tablet TAKE 1 TABLET BY MOUTH TWICE DAILY IN THE MORNING AND IN THE EVENING 60 tablet 3 025 Active estradiol (Estrace) 0.1 MG/GM vaginal cream Insert 1 g into the vagina 2 (two) times a week. twice weekly 45 g 5 025 Active potassium chloride (Klor-Con) 20 MEQ packet Take 20 mEq by mouth 2 times daily. Active lidocaine (Lidoderm) 5 % patchIndications :Neck pain Apply 1 patch topically Once per day. Remove & discard patch within 12 hours or as directed by MD. 60 patch 2 025 Active Mouthwashes (Biotene Dry Mouth) liquid use [...] ONCE DIRECTED BY DOCTOR 2024 Discontinued(O ther) cloNIDine (Catapres) 0.2 MG tablet TAKE 1 TABLET BY MOUTH TWICE DAILY IN THE MORNING AND IN THE EVENING 60 tablet 3 025 2024 Discontinued carvedilol (Coreg) 25 MG [...] referred by ENT for further eval in [place] but never went -referred again to ENT [...] referred by ENT for further eval in [place] but never went -referred again to ENT [...] specialist about CT finding. Rheumatoid arthritis with po sitive rheumatoid factor (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 Was told that there is no need to refer to CM for this. Type 2 diabetes mellitus without complication Assessment & Plan (12/06/2022 6:16 AM EDT): 09/2022 HbA1C 8.2<---8.7, CBG 248., total ch 169, trig 324( in fasting) ,HDL 36,LDL 69, Microalb neg Used to follow w licensed psychologist, but lost care. Not on metformin for [...] to f in 1 y. - Link Wire Fabric Machine Tender: seen in 11/2022 Assessment & Plan (10/23/2022 5:46 PM EDT): 09/2022 HbA1C 8.2<---8.7, CBG 248., total ch 169, trig 324( in fasting) ,HDL 36,LDL 69, Microalb neg Used to follow w licensed psychologist, but lost care. Not on metformin for [...] to f in 1 y. - Link Wire Fabric Machine Tender: referred today Assessment & Plan (09/24/2022 8:51 PM EDT): Today HbA1C 8.7, CBG 248. Used to follow w licensed psychologist, but lost care. - DM2 labs. - Will consider increasing Trulicity at her next appt. - Pt not currently on Metformin, but used to be in the past. Will check at her next appt, and if she can tolerate it, will resume Rx. - Ophthalmology 07/2022 - to f in 1 y. - Link Wire Fabric Machine Tender: will refer at next visit. Varicose veins of lower extremity 07/08/2017 Assessment & Plan (10/23/2022 5:12 PM EDT): Pt w lower extremity edema trace from 1+ before , possibly from Cardiazem and venous insufficiency. - Advised to use compression stockings,--started using with noted improved LE edema -I confirmed today w her inside horticultural specialty grower-Dr Watkins #[phone] that pt does not have CHF and [...] (12/06/2022 6:19 AM EDT): Pt following with order picker/assembler. Pt w consistently dry mouth. From med [...] for unclear reasons. - PT following w inside horticultural specialty grower actively w on and off chest discomfort. [...] mg in pm - PT following w inside horticultural specialty grower -will f BP in next 3 to 4 weeks Assessment & Plan (09/24/2022 8:43 PM EDT): BP slightly elevated at 144/94 - Holter 2018 neg. -echocardiogram 2018The left ventricular systolic function is normal. The visually estimated ejection fraction is between 60-65%. -stress test 2019 : nondiagnostic EKG For ischemia. - Will monitor BP manually at next visit. - PT following w inside horticultural specialty grower Chronic constipation 12/24/2016 Gastroesophageal reflux disease without [...] in 2016 here . I called her inside horticultural specialty grower today and he reports last EKG was normal as well Education Faculty Member -Dr Watkins states given QTC < 500 [...] and leflunomide ( if ok wit her order picker/assembler)-pt to ask and Cymbalta if taking in am. Hold am of surgery lasix,amytriptiline,lisinopril .Hold ASA 5 days prior procedure and avoid NSAIDS 7 days prior procedure. -will rec to have post op EKG as rec by her inside horticultural specialty grower for noted prolonged QTC -will rec to [...] Office Visit [facility] [address] [place] [phone] Emy Askew MD Lesion of tonsil (Primary Dx); Rheumatoid arthritis with positive rheumatoid factor, involving unspecified site ([facility]); Neck pain; Encounter for immunization; Health care maintenance; Sialoadenitis of submandibular gland; Type 2 diabetes mellitus without complication, unspecified whether alf insulin use ([facility]); Hypokalemia; Healthcare maintenance; Poor memory; Elevated alkaline phosphatase level; Benign essential hypertension 11/24/2024 Travel 11/24/2024 Orders Only GENERIC EXTERNAL DATA DEPARTMENT Provider, Generic External Data 11/23/2024 Telephone [facility] [address] [place] [phone] Emy Askew MD chart prep 11/21/2024 Refill [facility] [address] [place] [address] Emy Askew MD Benign essential hypertension 11/17/2024 Patient Outreach [facility] [address] [place] [address] Emy Askew MD Pre-visit Planning (LVM ) 10/29/2024 Refill [facility] [address] [place] [address] [phone] Lucina Haro MD 10/29/2024 Refill [facility] [address] [facility] [place] [address] Emy Askew MD 10/26/2024 Refill [facility] [address] [facility] [place] [address] Lucy Main MD Benign essential hypertension 10/19/2024 9:30 AM EDT Clinical Support [facility] [address] [facility] [place] [address] Kaylen Mane, GARY Hyperlipidemia associated with type 2 diabetes mellitus ([facility]) 10/19/2024 Travel 10/18/2024 Telephone [facility] [address] [facility] [place] [address] Emy Askew MD Med Refill 10/16/2024 Travel 10/12/2024 Telephone [facility] [address] [facility] [place] [address] Emy Askew MD Prior Authorization (Ozempic) 10/08/2024 Refill [facility] [place] [address] Lucy Main MD Type 2 diabetes mellitus without complication, unspecified whether alf insulin use ([facility]) 10/01/2024 1:00 PM EDT Clinical Support [facility] [place] [address] Akilah Maradiaga, GARY Type 2 diabetes mellitus without complication, unspecified whether alf insulin use ([facility]) 10/01/2024 Travel 09/29/2024 Telephone [facility] [address] [facility] [place] [address] Doris Henry, RN CGM 09/28/2024 Refill [facility] [address] [facility] [place] [address] Keely Lutz MD 09/19/2024 Results Follow-Up [facility] [address] [facility] [place] [address] Emy Askew MD Comprehensive Metabolic Panel, Magnesium, MR Abdomen w/ and w/o Contrast 09/19/2024 Orders Only [facility] [address] [place] [address] Emy Askew MD Hypokalemia (Primary Dx) from Last 3 Months Immunizations Immunization Administration [...] Description 02/11/2025 9:30 AM EST Office Visit [facility] [address] [place] [address] Emy Askew MD [address] [place] [address] 03/19/2025 9:30 AM EST Office Visit [facility] OPTOMET[facility] [address] [place] [address] Rachel Collado, OD [address] [place] [address] Health Maintenance Due Date Last Done Comments [...] 06/10/19 24, 03/01/2023, 10/26/2021, Additional history exists COVID-19 Vaccine [...] Screening 11/24/2025 11/24/2024 Eye Exam 01/07/2026 01/08/2024, 08/2023, 01/08/2024, Additional history exists DTaP/Tdap/Td Vaccines [...] without complication, unspecified whether alf insulin use ([facility]) BI MAMMOGRAM SCREENING TOMOSYNTHESIS BILATERAL Routine 03/17/2024 1:00 PM EST LIPID PANEL, STANDARD Routine 12/25/2023 7:08 AM EDT Annual physical exam ALBUMIN, RANDOM URINE W/CREATININE Routine 12/25/2023 7:05 AM EDT Annual physical exam BITEWING - SINGLE RADIOGRAPHIC IMAGE Routine 06/10/2023 3:30 PM EDT Periodontal disease Fractured dental jew with loss of material HPV MRNA E6/E7 [...] Whole Blood 326(H) 60 - 115 mg/dL [facility] Comment:METER #: [id number] Testing performed in the Endocrinology Department [address], [facility]. 11/24/2024 9:04 AM EDT 11/24/2024 9:07 AM EDT us Generic External Data Provider LAB BLOOD ORDERAB LES Final Result [facility] [address] [place] [phone] * XR Pelvis 1-2 Views (10/06/2024 3:02 PM EDT) Anatomical Region Laterality Modality Body, Pelvis Radiographic Karla ging 10/06/2024 3:02 PM EDT Narrative 10/06/2024 3:03 PM EDT [facility] [address] [place] [address] Drive [address] [place] [address] XRay Report Signed Patient: Jennifer Palmer MR#: [id number] 0 : 1960 Acct:[id number] Age/Sex: 64 / F ADM Date: 10/06/24 Loc: HO.HOSX Attending Dr: Amada Macias PA-C Ordering Physician: Amada Macias PA-C Date of Service: 10/06/24 Procedure(s): XR pelvis 1-2V Accession Number(s): [id number] cc: Amada Macias PA-C; Emy Askew MD [...] OV> 10/06/24 1503 DD/ 1502 TD/TT: 10/06/24 150 Masonry Inspector: Procedure Note Donotuseinterpreter, Image - 10/06/2024 [facility] [address] [place] [address] Drive [address] [place] [address] XRay Report Signed Patient: Axel Palmer#: [id number] 0 : 9Acct:[id number] Age/Sex: 64 / FADM Date: 10/06/24 Loc: HO.SEFERINOX Attending Dr: Amada Macias PA-C Ordering Physician: Amada Macias PA-C Date of Service: 10/06/24 Procedure(s): XR pelvis 1-2V Accession Number(s): [id number] cc: Amada Macias PA-C; Emy Askew MD [...] OV> 10/06/24 1503 DD/ 1502 TD/TT: 10/06/24 150 Masonry Inspector: [facility] External Provider IMG XR PROCEDURES Edited Result - Final * MR Abdomen w/ and w/o Contrast (09/24/2024 2:04 AM EDT) Anatomical Region Laterality Modality Abdomen Magnetic Resonan ce 09/24/2024 2:04 AM EDT Narrative 09/24/2024 2:06 AM EDT [address] [address] Magnetic Resonance Report Signed Patient: Jennifer Palmer MR#: [id number] 0 : 1960 Acct:[id number] Age/Sex: 64 / F ADM Date: 09/23/24 Loc: HO.MRI Attending Dr: Emy Goldsmith MD Ordering Physician: Emy Askew MD Date of Service: 09/23/24 Procedure(s): MR abdomen wo/w con Accession Number(s): [id number] cc: Emy Askew MD CLINICAL HISTORY: rec [...] in OV> 09/24/24204 DD/ 3 TD/TT: 09/24/24203 Masonry Inspector: Procedure Note Donotuseinterpreter, Image - 09/24/[address] [address] Magnetic Resonance Report Signed Patient: Jennifer PalmerMR#: [id number] 0 : 1960cct:[id number] Age/Sex: 64 / FADM Date: 09/23/24 Loc: HO.MRI Attending Dr: Emy Goldsmith MD Ordering Physician: Emy Askew MD Date of Service: 09/23/24 Procedure(s): MR abdomen wo/w con Accession Number(s): [id number] cc: Emy Askew MD CLINICAL HISTORY: rec [...] in OV> 09/24/24204 DD/ 3 TD/TT: 09/24/24203 Masonry Inspector: Emy Goldsmith MD IMG MRI PROCEDURE S Edited Result - Final * Magnesium (09/19/2024 8:28 AM EDT) Magnesium 2.0 1.6 - 2.6 mg/dL [facility] Blood Venous blood specimen / Unknown 09/19/2024 8:28 AM EDT 09/19/2024 8:28 AM EDT Emy Goldsmith MD LAB BLOOD ORDERAB LES Final Result [facility] [address] [place] [phone] * (ABNORMAL) Comprehensive Metabolic Panel (09/19/2024 8:28 AM EDT) Sodium 141 135 - 145 mmol/L [facility] Potassium 3.1(L) 3.3 - 5.1 mmol/L [facility] Chloride 108 96 - 108 mmol/L [facility] Carbon Dioxide 26 22 - 29 mmol/L [facility] Anion Gap 10(L) 12 - 20 [facility] Urea Nitrogen (BUN) 14 9 - 16 mg/dL [facility] Creatinine, Serum 0.78 0.5 - 1.4 mg/dL [facility] Estimated Glomerular Filt Rate >60 [facility] Comment:Chronic Kidney Disea se: Estimated GFR < 60 mL/min/1.57p5Zbcgrk Kidney Disease: Estimated GFR < 15 mL/min/1.73m2 Glucose 277(H) 60 - 115 mg/dL [facility] Calcium 9.0 8.4 - 10.2 mg/dL [facility] Bilirubin, Total 0.4 0.0 - 1.0 mg/dL [facility] Aspartate Amino Transferase 20 5 - 31 U/L [facility] Alanine Aminotransferase 17 0 - 31 U/L [facility] Total Protein 7.5 6.5 - 8.0 g/dL [facility] Albumin Level 4.1 3.5 - 5.0 g/dL [facility] Alkaline Phosphatase 141(H) 39 - 117 U/L [facility] Blood Venous blood specimen / Unknown 09/19/2024 8:28 AM EDT 09/19/2024 8:28 AM EDT Emy Goldsmith MD LAB BLOOD ORDERAB LES Final Result [facility] [address] [place] [phone] * (ABNORMAL) POCT HGB A1C (09/11/2024 9:28 AM EDT) Hemoglobin A1C 8.3(A) 4.0 - 5.7 % QC Media Lot # [id number] Lot# Expiration Date Blood 09/11/2024 9:28 AM EDT Emy Goldsmith MD POINT OF CARE KALEN T ENTER/EDIT ORDERABLES Final Result * BI Mammogram Screening Tomosynthesis Bilateral (03/17/2024 1:00 PM EST) Anatomical Region Laterality Modality Breast Bilateral Mammography 03/17/2024 1:00 PM EST Narrative 03/28/2024 10:52 AM EST [facility] [address] [place], [place] [address] Mammography Report Signed Patient: Jennifer Palmer MR#: [id number] 0 : 1960 Acct:[id number] Age/Sex: 63 / F ADM Date: 03/17/24 Loc: HO.MAMMO Attending Dr: Emy Goldsmith MD Ordering Physician: Emy Askew MD Re sults: 1Negative Date of Service: 03/17/24 Follow Up: 1 Year From Orig inal Mammogram Procedure(s): MM tomosynthesis screening BI Accession Number(s): [id number] cc: Emy Askew MD EXAMINATION: MM SCREENING [...] 03/28/24 1049 DD/ 1300 TD/TT: 03/17/24 1320 Masonry Inspector: Procedure Note Donotuseinterpreter, Image - 03/28/2024 [facility] [address] [place], [place] [address] Mammography Report Signed Patient: Axel Palmer#: [id number] 0 : 9Acct:[id number] Age/Sex: 63 / FADM Date: 03/17/24 Loc: HO.MAMMO Attending Dr: Emy Goldsmith MD Ordering Physician: Emy Askew sults: 1Negative Date of Service: 03/17/24Follow Up: 1 Year From Orig inal Mammogram Procedure(s): MM tomosynthesis screening BI Accession Number(s): [id number] cc: Emy Askew MD EXAMINATION: MM SCREENING [...] 03/28/24 1049 DD/ 1300 TD/TT: 03/17/24 1320 Masonry Inspector: us Emy Goldsmith MD IMG BI PROCEDURES Final Result * (ABNORMAL) Lipid Panel, Standard (12/25/2023 7:08 AM EDT) Triglycerides 232(H) <150 mg/dL [facility] Comment:Desirable Triglyceri de: less than 150 mg/dLBorderline High Triglyceride 150-199 mg/dLHigh Triglyceride: 200-499 mg/dLVery High Triglyceride: greater than or equal to 5OO mg/dL Cholesterol 154 <200 mg/dL [facility] Comment:Desirable Cholestero l: less than 200 mg/dLBorderline High Cholesterol: 200-239 mg/dLHigh Cholesterol: greater than 239 mg/dL LDL Cholesterol Calculated 64 <100 mg/dL [facility] Comment:Desirable LDL: less than 100 mg/dLNear Optimal/Above Optimal LDL: 110- 129 mg/dLBorderline High LDL: 130-159 mg/dLHigh LDL: 160-189 mg/dLVery High LDL: greater than or equal to 190 mg/dL HDL Cholesterol 44 >40 mg/dL [facility] Comment:Desirable HDL: great er than 40 mg/dL Note: This HDL assay may give artificially low results in patients with liver disease. Blood Venous blood specimen / Unknown 12/25/2023 7:08 AM EDT 12/25/2023 7:09 AM EDT Emy Goldsmith MD LAB BLOOD ORDERAB LES Final Result [facility] [address] [place] [address] [phone] * (ABNORMAL) Albumin, Random Urine W/Creatinine (12/25/2023 7:05 AM EDT) Creatinine, Urine 50.21 mg/dL [facility] Microalbumin Urine 78.0 mg/L [facility] Microalbum Creatinine Ratio Ur 155.3(H) <30 ug/mg cr [facility] Comment:Albumin/Creatinine R atio Reference Ranges: Normal: < 30 ug/mg creatinine Microalbuminuria: 30 - 300 ug/mg creatinineClinical Albuminuria: > 300 ug/mg creatinine Urine (Urine, Random) 12/25/2023 7:05 AM EDT 12/25/2023 7:49 AM EDT us Emy Goldsmith MD LAB URINE ORDERAB LES Final Result Performing Organization Address [facility] [place]/[facility]/ZIP Co de Phone Number [facility] [address] [place] [phone] [phone] * HPV mRNA E6/E7 w/Reflex to HPV Genotypes 16, 18/45 (05/27/2023 10:50 AM EDT) HPV nRNA E6/E7 Not Detected Not Detected [facility] Comment:Methodology: Transcr iption-Mediated AmplificationThis assay detects E6/E7 viral messenger RNA (mRNA) from 14high-risk HPV types (16,18,31,33,35,39,45,51,52,56,58,59,66,68).Cervical sources are required for HPV testing.If a vaginal source from a patient who has had atotal hysterectomy with removal of cervix wassubmitted, please contact the testing laboratoryfor alternative testing options.For additional information, please refer [email or web address]/faq/[email or web address](This link if provided for information/educational purposes only.)THIS TEST WAS PERFORMED AT:[facility] [place] [phone] CAMARENA MD HPV mRNA E6/E7 [facility] HPV 16 RNA [facility] HPV 18/45 RNA [facility] 05/27/2023 10:5 0 AM EDT 05/28/2023 11:50 AM EDT us Alden Cai CNM LAB CYTOLOGY ORDERABLES F inal Result Performing Organization Address City/[facility]/ZIP Co de Phone Number [facility] [address] [place] [address] [phone] * Pap Smear (05/27/2023 10:50 AM EDT) Swab Cervix uteri structure / Unknown 05/27/2023 10:50 AM EDT 05/28/2023 11:50 AM EDT [facility] - 06/09/2023 5:49 PM EDT ----- ------- Name: Jennifer Palmer Age/Sex: 62/F : 1960 Unit#: [id number] Attend Dr: ALDEN CAI CNM Re05/27/23 Status: [facility]: ----- ------- SPEC : [id number] RECD: 05/28/23-1150 STATUS: CORRIE VELEZ NUM: [id number] PRANAY: 05/27/23-1050 [facility] [address]: ALDEN CAI CNM ENTERED: 05/28/23-1305 SP TYPE: Pap Smr [facility] DR: ORDERED: Pap Smear Interpretation Satisfactory for evaluation. Negative for intraepithelial lesion or malignancy. Atrophic. HPV mRNA E6/E7: NOT DETECTED This assay detects E6/E7 viral messenger RNA (mRNA) from 14 high-risk HPV types (16, 18, 31, 33, 35, 39, 45, 51, 52, 56, 58, 59, 66, 68) HPV testing performed by [facility], [place], [place]. See reference laboratory portion of the EMR for entire report. Clinical Information LMP: Postmenopausal Previous PAP test: Unknown date/findings Material Received ThinPrep-Vaginal/Cervical ----- ------- Signed (signature on file) Esther Gutierres 06/09/23 1749 ----- ------- END OF REPORT Alden Cai [facility] LAB CYTOLOGY ORDERABLES F inal Result Performing Organization Address [facility] [place]/[facility] Co de Phone Number [facility] [address] [place], [place] [phone] * Hm Colonoscopy (05/09/2023 6:56 PM EST) Historical Provider HEALTH MAINTENANCE Final Result * Hepatitis C Antibody Reflex (10/04/2022 9:42 AM EDT) Hepatitis C Antibody Nonreactive Nonreactive [facility] Comment:Antibodies to HCV no t detected; does not exclude early acuteHCV infection. 10/04/2022 9:42 AM EDT 10/04/2022 9:43 AM EDT Emy Goldsmith MD LAB BLOOD ORDERAB LES Final Result Performing Organization Address [facility] [place]/[facility]/ZIP Co de Phone Number [facility] [address] [place], [place] [phone] from Last 3 Months or Most Recently Relevant to Health Maintenance Insurance [facility] OPTIONS (HMO D-SNP) [facility] MEDICAID STAND ADULT Care Teams Sheet Metal Production Worker Relationship Specialty Start Date End Date Emy Askew MD [address] [place] [phone] PCP - General Internal Medicine 07/25/22
--- OUTSIDE RECORDS SUMMARY | 2024-12-14 09:43 | XMS_ITS | Encounter Summary ---
Author Organization [employer] Address [address] [place] [address] [address], [place] [address] Care Team Providers Care Manager Lvn Name Role Phone Cyn Bosch MD Primary Care Provider [facility] Primary Care Provider [phone] Emy Askew MD Primary Care Pro vider Encounter Details Date Type Department Care Team (Latest Contact Info) Description 09/30/2018 Abstract [facility] CONVERSIONS Dental, Provider, DDS Social History [...] Description 02/11/2025 9:30 AM EST Office Visit [facility] [address] [place] [address] Emy Askew MD [address] [place] [address] 03/19/2025 9:30 AM EST Office Visit [facility] OPTOMETRY [address] [place] [address] Rachel Collado, OD [address] [place] [address] documented as of this encounter Visit Diagnoses Not on filedocumented in this encounter Care Teams Manager Lvn Relationship Specialty Start Date End Date Cyn Bosch MD PCP - General Family Medicine 08/20/19 01/21/22 [facility] JULIO CÉSAR Zambrano [address] [place] [phone] PCP - General Family Medicine 01/22/22 07/24/22 Emy Askew MD [address] [place] [phone] PCP - General Internal Medicine 07/25/22 documented as of this encounter
--- OUTSIDE RECORDS SUMMARY | 2024-12-14 09:43 | XMS_ITS | Encounter Summary ---
Author Organization [facility] Address [address] [place] [address] Phone Care Team Providers Care Drug Purchaser Name Role Phone Unknown, Unknown Primary Care Provider Mark Segura MD Primary Care Provider Encounter Details Date Type Department Care Team (Latest Contact Info) Description 05/26/2018 Ancillary Orders [facility] [address] [place] [address] [place] [address] Isidro Watkins, DO [address] [place] [id number] Other chest pain Social History Tobacco Use [...] pain documented in this encounter Care Teams Drug Purchaser Relationship Specialty Start Date End Date Unknown, Unknown, PCP - General 05/15/18 10/14/19 Mark Foote MD [address] [place] [id number] PCP - General Pediatrics 10/15/19 documented as of this encounter Additional Source Comments The information contained in this document represents components of the legal health record. It is not the complete legal health record.[facility]
--- NOTE | 2024-12-14 09:58 | ED.GENADULT ---
HPI - General Adult General Chief complaint: Dental/Oral Stated complaint: jaw pain Time Seen by Provider: 12/14/24 09:27 Source: patient, RN notes reviewed and old records reviewed Mode of arrival: ambulatory Limitations: no limitations History of Present Illness ED Provider: TERRY Santoro HPI narrative: 64-year-old female with medical history of T2DM on insulin, rheumatoid arthritis, HLD, HTN, COPD, SOY, Sjogren syndrome, hyperparathyroidism, presents to ED due to painful lump on R side of neck associated with chills that she woke up with this morning. Denies recent dental procedure, recent illness, chest pain, SOB, difficulty breathing, nausea, vomiting, abdominal pain. MD complaint: painful lump R side of neck Related Data Home Medications ?Medication ?Instructions ?Recorded ?Confirmed clonidine HCl 0.1 mg tablet 0.1 mg PO BID 12/08/19 12/10/24 diltiazem HCl 360 mg capsule,24 360 mg PO DAILY 12/08/19 12/10/24 hr,extended release furosemide 20 mg tablet 20 mg PO DAILY 12/08/19 12/10/24 aspirin 81 mg tablet,delayed 81 mg PO DAILY 05/12/20 12/10/24 release clonazepam 0.5 mg tablet 0.5 mg PO DAILY PRN Anxiety 10/29/22 12/10/24 leflunomide 20 mg tablet 20 mg PO DAILY 10/29/22 12/10/24 loratadine 10 mg tablet 10 mg PO DAILY PRN allergies 10/29/22 12/10/24 melatonin 5 mg tablet 10 mg PO BEDTIME PRN Insomnia 10/29/22 12/10/24 sennosides 8.6 mg tablet (senna) 17.2 mg PO DAILY PRN constipation 10/29/22 12/10/24 atorvastatin 20 mg tablet 20 mg PO BEDTIME 04/30/23 12/10/24 calcium carbonate 600 mg PO QAM 04/30/23 12/10/24 carvedilol 25 mg tablet 25 mg PO BID 04/30/23 12/10/24 cevimeline 30 mg capsule 1 cap PO QAM 04/30/23 12/10/24 duloxetine 60 mg capsule,delayed 60 mg PO BEDTIME 04/30/23 12/10/24 release folic acid 1 mg tablet 1 mg PO DAILY 04/30/23 12/10/24 gabapentin 300 mg capsule 300 mg PO BID 04/30/23 12/10/24 losartan 100 mg tablet 100 mg PO DAILY 02/10/24 12/10/24 topiramate 25 mg tablet 25 mg PO BEDTIME 09/21/24 12/10/24 docusate sodium 100 mg capsule 100 mg PO DAILY 12/10/24 12/10/24 Previous Rx's ?Medication ?Instructions ?Recorded blood glucose control high and low #1 ea 03/28/20 solution (FreeStyle Control solution) 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 meter (FreeStyle #1 ea 09/09/20 Lite Meter kit) blood sugar diagnostic (FreeStyle #150 ea 02/10/21 Lite Strips) lancets 33 gauge (TRUEplus Lancets) #120 ea 06/20/21 naproxen 500 mg tablet 500 mg PO BID PRN pain #14 tabs 07/12/21 cholecalciferol (vitamin D3) 50 50 mcg PO DAILY #90 caps 12/12/21 mcg (2,000 unit) capsule hydrocortisone 2.5 % topical cream 1 appl NM BEDTIME PRN hemorrhoids 01/15/23 with perineal applicator #30 grams (Proctosol HC) semaglutide 2 mg/dose (8 mg/3 mL) 2 mg (0.75 mL) subcut QWEEK #3 mL 06/16/24 subcutaneous pen injector (Ozempic) ondansetron 4 mg disintegrating 4 mg PO Q8H PRN nausea and 06/21/24 tablet vomiting #20 tabs dapagliflozin propanediol 10 mg 10 mg PO DAILY #30 tabs 09/21/24 tablet (Farxiga) 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 sensor (FreeStyle #6 ea 11/24/24 Anthony 3 Plus Sensor device) 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,practice management consultant,cont #1 ea 11/24/24 (FreeStyle Anthony 3 [place]edar) insulin glargine 100 unit/mL (3 12 unit (0.12 mL) subcut QPM #3 mL 11/24/24 mL) subcutaneous pen (Lantus Solostar U-100 Insulin) insulin lispro 100 unit/mL 5 unit (0.05 mL) subcut DAILY #3 mL 11/24/24 subcutaneous pen (Humalog KwikPen (U-100) Insulin) pen needle, diabetic 31 gauge x #100 ea 11/24/24 3/16 (Comfort EZ Pen Eckerty) sodium,potassium,mag sulfates 17.5 See Rx Instructions PO .COMPLEX 11/24/24 gram-3.13 gram-1.6 gram oral soln #354 mL (Suprep Bowel Prep Kit) diabetic shoes and insoles #1 ea 11/26/24 cephalexin 500 mg capsule 500 mg PO BID 7 days #14 caps 12/14/24 doxycycline hyclate 100 mg capsule 100 mg PO BID #14 caps 12/14/24 Allergies Allergy/AdvReac Type Severity Reaction Status Date / Time codeine (Codeine) Allergy Mild BURNING IN Verified 12/14/24 09:08 CHEST, chest pain sulfamethoxazole (From Allergy Mild ITCH,RASH Verified 12/14/24 09:08 Bactrim) Review of Systems Review of Systems: CONST: Negative for fever, body aches. POS chills HENT: Negative for neck pain/stiffness, headache, congestion, sore throat, swelling. POS R sided painful lump on neck EYES: Negative for discharge/pain or vision changes. RESP: Negative for cough/hemoptysis and shortness of breath. CV: Negative chest pain, difficulty breathing, palpitations. ABD: Negative pain, nausea, vomiting. : Negative increase frequency, dysuria, blood in urine or stool. MUSC: Negative for muscle aches, edema. SKIN: Negative rash, lesions/sores. NEURO: Negative headache, dizziness, weakness. Yes all other systems are reviewed and are negative PMFSH Past Medical History Attestation statement: The following information was validated with the patient. Source: old records reviewed and nursing notes reviewed Medical History (Updated 12/14/24 @ 14:02 by Gregg Santoro PA-C) Tinea unguium Nail dystrophy Paresthesia of foot, bilateral Greater trochanteric bursitis of left hip Hyperparathyroidism DM2 (diabetes mellitus, type 2) Vitamin D deficiency 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 rheumatoid arthritis halfway (current) use of insulin SOY (obstructive sleep apnea) COPD (chronic obstructive pulmonary disease) Sicca syndrome Constipation Alopecia Sjogrens syndrome Osteoarthritis Rheumatoid arthritis Fibromyalgia Back pain Difficulty swallowing GERD (gastroesophageal reflux disease) Depression Asthma Elevated cholesterol HTN (hypertension) Surgical History History of laryngoscopy Hx of hemorrhoidectomy History of bladder suspension procedure Hx of dilation and curettage Hx of tubal ligation History of repair of left rotator cuff Hx of colonoscopy History of esophagogastroduodenoscopy (EGD) Family History Family History Father Cancer Mother Heart disease Diabetes Social History Social History Household Members: Children and Other Household Members Other:: daughter, grandkids Are you a primary field care coordinator to a significant other at home: No Do you presently have visiting nurse or other home services: No Alcohol intake: never Patient Tobacco Use Status: Never used Tobacco Smoked in Last 30 Days: No e-Cigarette/Vaping Use: Never Used Second Hand Smoke Exposure: No Use of substances other than those prescribed or required for medical reasons: No Advance Directives: No Advance Directives Information Provided: Yes Do you have a plan to hurt others: No Plan 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al status: disabled 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 Physical Exam ED Vital Signs: Vital Signs - 24 hr 12/14/24 09:07 12/14/24 11:52 Temperature 97.2 F 98.3 F Pulse Rate 81 72 Respiratory Rate 18 Blood Pressure 142/85 H 143/86 H Pulse Oximetry 97 95 Oxygen Delivery Method Room Air Room Air BMI result Body Mass Index 27.4 GENERAL APPEARANCE: ?AxOx4, non toxic appearing, no acute distress. HEENT: ?NC, AT. MMM. EOMI, clear conjunctiva, oropharynx clear, uvula midline without edema, no tonsilar edema or exudates noted, handing oral secretions, airway patent, able to speak in full clear sentences without voice changes. Golf ball sized lump of R side neck painful to palpation, without erythema or edema. No sublingual or submental edema, no mastoid tenderness NECK: ?Supple without lymphadenopathy.? No stiffness or restricted ROM. HEART:? Normal rate and regular rhythm, normal S1/S2, no m/r/g LUNGS:? Diminished breath sounds throughout all lung plaza without rhonchi, or wheezing ABDOMEN: ?Soft, nontender, nondistended BACK: No CVAT, no obvious deformity. EXTREMITIES: ?Without cyanosis, clubbing or edema. NEUROLOGICAL: ?Grossly nonfocal. Alert and oriented, moving all 4 extremities. Skin: ?Warm and dry without any rash. Medications Administered Discontinued Medications Generic Name Dose Route Start Last Admin Trade Name Mick PRN Reason Stop Dose Admin Acetaminophen 1,000 mg in 100 mls @ 400 mls/hr 12/14/24 12:24 12/14/24 12:45 Ofirmev IV 12/14/24 12:38 Infused ONCE ONE Infusion Iohexol 60 ml 12/14/24 12:54 12/14/24 12:57 Iohexol 350 Mg/Ml 75 Ml Infus..Btl IV 12/14/24 12:55 60 ml ONCE ONE Administration Medical Decision Making Medical Decision Making MDM Narrative: 64-year-old female with medical history of T2DM on insulin, rheumatoid arthritis, HLD, HTN, COPD, SOY, Sjogren syndrome, hyperparathyroidism, presents to ED due to painful lump on R side of neck associated with chills that she woke up with this morning. Denies recent dental procedure, recent illness VS on an initial observation-BP 142/85, pulse rate of 81, respiratory rate of 18, afebrile with oral temp of 97.2?, O2 saturation 97% on room air. On physical exam there is a golf ball sized lump of R side neck painful to palpation, without erythema or edema. No sublingual or submental edema, no mastoid tenderness, Uvula midline without edema, no tonsillar edema or exudates noted. Labs without leukocytosis/leukopenia, H&H stable, elevated random serum glucose of 259, elevated alkaline phosphatase of 129, no electrolyte abnormalities CT neck/soft tissue reveals edema of the right lateral neck suggesting inflammatory process, mild lymphadenopathy, with trace bilateral pleural effusions. Patient with a tender golf ball sized mass of the lateral aspect of the neck, mass is firm and mobile. CT findings are somewhat vague for cellulitis, sialadenitis, vs lymphadenopathy. Patient without leukocytosis, afebrile, airway protected, able to tolerate oral secretions, no voice changes, speaking in full clear sentences. Patient with uncontrolled T2DM, will treat with doxy and keflex, I counseled patient to follow up with her primary care physician to ensure resolution of the mass. Patient will manage pain at home with tylenol and ibuprofen. Patient is having routine colonoscopy done tomorrow morning and is on NPO diet, will give 1g ceftriaxone while in the department and have her begin doxy and keflex tomorrow after her procedure. I counseled patient on strict return precautions. Patient is in agreement with the plan. Differential Diagnosis Differential Diagnoses: The differential diagnosis associated with the presentation includes Gavin's angina Sialadenitis Lymphadenopathy TRAUMA SURGEON Admission/Observation Consideration of admission/observation: Escalation of care including admission/observation considered Lab Data MDM Lab Attestation statement: I reviewed the patient's lab results. 12/14/24 10:22 12/14/24 10:22 Labs: Lab Results 12/14/24 Range/Units 10:22 WBC 9.5 (4.8-10.8) X10*3/uL RBC 4.92 (4.20-5.50) X10*6/uL Hgb 14.4 (12.0-16.0) g/dl Hct 44.1 (37.0-47.0) % MCV 89.6 (80.0-98.0) fL MCH 29.3 (27.0-33.0) pg MCHC 32.7 (31.0-35.0) g/dl RDW 12.9 (11.0-16.0) % Plt Count 253 (160-400) X10*3/uL MPV 10.0 (9.4-12.3) fL Immature Gran % (Auto) 0.8 H (0.0-0.4) % Neut % (Auto) 60.5 (45-73) % Lymph % (Auto) 25.3 (20-40) % [place] % (Auto) 8.5 (2-11) % Eos % (Auto) 4.4 H (0-4) % Baso % (Auto) 0.5 (0-2) % Lymph # (Auto) 2.4 (1.2-4.9) X10*3/uL [place] # (Auto) 0.8 (0.1-1.2) X10*3/uL Eos # (Auto) 0.4 (0.0-0.4) X10*3/uL Baso # (Auto) 0.1 (0.0-0.2) X10*3/uL Abs Immat Gran (auto) 0.08 H (0.00-0.03) X10*3/uL Absolute Neuts (auto) 5.7 (2.0-8.3) x10*3/uL Absolute Nucleated RBC 0.000 (0.0-0.012) X10*3/uL Nucleated RBC % (auto) 0.0 (0.0-0.2) /100WBC Sodium 142 (135-145) mmol/L Potassium 3.8 (3.3-5.1) mmol/L Chloride 108 (96-108) mmol/L Carbon Dioxide 26 (22-29) mmol/L Anion Gap 12 (12-20) BUN 13 (9-16) mg/dL Creatinine 0.67 (0.5-1.4) mg/dL Estim Creat Clear Calc 74.6 Estimated GFR > 60 Random Glucose 259 H (60-115) mg/dL Calcium 9.3 (8.4-10.2) mg/dL Total Bilirubin 0.3 (0.0-1.0) mg/dL AST 20 (5-31) U/L ALT 16 (0-31) U/L Alkaline Phosphatase 129 H (39-117) U/L Total Protein 7.5 (6.5-8.0) g/dL Albumin 4.0 (3.5-5.0) g/dL Independent Interpretation I performed an independent interpretation of an: CT Scan Interpretation: I personally interpreted the CT neck soft tissue which reveals mild lymphadenopathy, edema of the right lateral neck, I agree with the radiologist's interpretation Radiology Impression Discussion of test interpretation with radiology: I have reviewed the radiologist's reading. Radiologist Impression: CT neck soft tissue Findings: The visualized intracranial contents are unremarkable. No prevertebral fluid. Epiglottis is within normal limits. Pharyngeal mucosal space and parapharyngeal fat are normal. There is a mild degree of lymphadenopathy within the neck, predominating within the right carotid space. Lymph nodes measure up to 11 mm in short axis dimension. There is extensive fatty replacement of parenchyma within the bilateral submandibular and parotid glands. No suspicious thyroid nodules. There are trace bilateral pleural effusions. There is no consolidative process. No acute fractures. There is edema of the soft tissues of the lateral aspect of the right side of the neck. There is no associated fluid collection. Multiple missing teeth. No periodontal abscess. IMPRESSION: 1. Edema of the right lateral neck suggesting an inflammatory process. 2. Mild lymphadenopathy within the neck, most likely inflammatory. 3. Trace bilateral pleural effusions. This document has been electronically signed by: Lakeshia Ellsworth MD on 12/14/2024 13:19:43 Dictated By: Lakeshia Ellsworth MD Signed By: <Electronically signed by Lakeshia Ellsworth MD in [place]> 12/14/24 1320 External Record Review External record reviewed: Inpatient record, Office record and Outpatient record Chronic Conditions Patient?s care impacted by: Diabetes and Hypertension Discharge Plan Discharge Clinical Impression: Acute cervical lymphadenitis Patient Disposition: Home, Self-Care Additional Instructions: You were evaluated in the ED today due to painful mass on the right side of the neck. Your blood work today was reassuring as you did not have a significant elevation or decrease in your white blood cell count indicative of infection. Your random serum glucose today was 259. The CT of your neck revealed inflammation, without significant abscess or any emergent findings today. You recieved 1g of IV ceftriaxone today which is an antibiotic for coverage of possible infection of the neck as you have a colonoscopy tomorrow and cannot have anything by mouth. You are being prescribed a 7 day course of doxycyline and keflex for bacterial coverage. Please start this medication tomorrow after your colonoscopy. Please follow up with your primary care doctor to ensure resolution of the mass in your neck. Please return to the emergency department if you experience fevers over 100.4?, if the mass in the neck is getting larger, warmth or redness of the mass, pressure on the neck or difficulty breathing, pain with swallowing or difficulty swallowing, voice changes, or any new/worsening/concerning symptoms. Prescriptions: New cephalexin 500 mg capsule 500 mg PO BID 7 Days Qty: 14 0RF doxycycline hyclate 100 mg capsule 100 mg PO BID Qty: 14 0RF No Action (DME) 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 meter [FreeStyle Lite Meter] Kit See Rx Instructions miscellaneous .MEDSUPPLY Qty: 1 0RF Rx Instructions: As directed (DME) FreeStyle Lite Strips Strip See Rx Instructions .ROUTE .MEDSUPPLY Qty: 150 11RF Rx Instructions: 4 times a day (DME) lancets [TRUEplus Lancets] 33 gauge misc See Rx Instructions .ROUTE .MEDSUPPLY Qty: 120 11RF Rx Instructions: 4 times a day cholecalciferol (vitamin D3) 50 mcg (2,000 unit) capsule 50 mcg PO DAILY Qty: 90 0RF (DME) FreeStyle Anthony 3 Plus Sensor Device See Rx Instructions .ROUTE .MEDSUPPLY Qty: 6 5RF Rx Instructions: As directed every 15 days (DME) FreeStyle Anthony 3 [place]edar [facility] See Rx Instructions .ROUTE .MEDSUPPLY Qty: 1 0RF Rx Instructions: As directed sodium,potassium,mag sulfates [Suprep Bowel Prep Kit] 17.5-3.13-1.6 gram recon soln See Rx Instructions PO .COMPLEX Qty: 354 0RF Rx Instructions: DILUTE; drink 1/2 at 6-8 pm and half at 11 PM- 1AM diltiazem HCl 360 mg Capsule,Extended Release 24 Hr 360 mg PO DAILY clonidine HCl 0.1 mg Tablet 0.1 mg PO BID furosemide 20 mg Tablet 20 mg PO DAILY aspirin 81 mg tablet,delayed release (DR/EC) 81 mg PO DAILY naproxen 500 mg tablet 500 mg PO BID PRN (Reason: pain) Qty: 14 0RF ondansetron 4 mg tablet,disintegrating 4 mg PO Q8H PRN (Reason: nausea and vomiting) Qty: 20 0RF docusate sodium 100 mg Capsule 100 mg PO DAILY (DME) FreeStyle Control Solution See Rx Instructions .ROUTE .MEDSUPPLY Qty: 1 2RF Rx Instructions: Twice a month sennosides [senna] 8.6 mg tablet 17.2 mg PO DAILY PRN (Reason: constipation) melatonin 5 mg tablet 10 mg PO BEDTIME PRN (Reason: Insomnia) clonazepam 0.5 mg tablet 0.5 mg PO DAILY PRN (Reason: Anxiety) leflunomide 20 mg tablet 20 mg PO DAILY loratadine 10 mg tablet 10 mg PO DAILY PRN (Reason: allergies) gabapentin 300 mg capsule 300 mg PO BID duloxetine 60 mg capsule,delayed release(DR/EC) 60 mg PO BEDTIME cevimeline 30 mg capsule 1 cap PO QAM calcium carbonate 600 mg calcium (1,500 mg) tablet 600 mg PO QAM atorvastatin 20 mg tablet 20 mg PO BEDTIME carvedilol 25 mg tablet 25 mg PO BID folic acid 1 mg tablet 1 mg PO DAILY Ozempic 2 mg/dose (8 mg/3 mL) pen injector 2 mg subcut QWEEK Qty: 3 7RF topiramate 25 mg tablet 25 mg PO BEDTIME dapagliflozin propanediol [Farxiga] 10 mg tablet 10 mg PO DAILY Qty: 30 7RF insulin lispro [Humalog KwikPen Insulin] 100 unit/mL insulin pen 5 unit subcut DAILY Qty: 3 3RF Rx Instructions: 5 units of insulin 15 mins before breakfast (DME) pen needle, diabetic [Comfort EZ Pen Eckerty] 31 gauge x 3/16 needle See Rx Instructions .Route Qty: 100 5RF Rx Instructions: As directed t inject insulin twice daily insulin glargine [Lantus Solostar U-100 Insulin] 100 unit/mL (3 mL) insulin pen 12 unit subcut QPM Qty: 3 3RF (DME) diabetic shoes and insoles See Rx Instructions .Route .MEDSUPPLY Qty: 1 0RF Rx Instructions: As directed hydrocortisone [Proctosol HC] 2.5 % cream with perineal applicator 1 appl NM BEDTIME PRN (Reason: hemorrhoids) Qty: 30 3RF losartan 100 mg tablet 100 mg PO DAILY Print Language: Khmer
[2024-12-14 10:29] LABS: MANUAL DIFF FLAG NO
[2024-12-14 10:30] LABS: Hematocrit 44.1 % (37.0-47.0); Hemoglobin 14.4 g/dl (12.0-16.0); Imm Gran Abs Auto 0.08 X10*3/uL (0.00-0.03); Imm Gran Pct Auto 0.8 % (0.0-0.4); Lymphocytes Absolute Auto 2.4 X10*3/uL (1.2-4.9); Mean Corpuscular HGB Conc 32.7 g/dl (31.0-35.0); Mean Corpuscular Hemoglobin 29.3 pg (27.0-33.0); Mean Corpuscular Volume 89.6 fL (80.0-98.0); NRBC Abs Auto 0.000 X10*3/uL (0.0-0.012); NRBC Pct Auto 0.0 /100WBC (0.0-0.2); Platelet Count 253 X10*3/uL (160-400); Red Blood Count 4.92 X10*6/uL (4.20-5.50); White Blood Count 9.5 X10*3/uL (4.8-10.8)
[2024-12-14 10:48] LABS: Alanine Aminotransferase 16 U/L (0-31); Albumin Level 4.0 g/dL (3.5-5.0); Alkaline Phosphatase 129 U/L (39-117); Anion Gap 12 (12-20); Aspartate Amino Transferase 20 U/L (5-31); Blood Urea Nitrogen 13 mg/dL (9-16); Calcium 9.3 mg/dL (8.4-10.2); Carbon Dioxide 26 mmol/L (22-29); Chloride 108 mmol/L (96-108); Creatinine Clr Calc Pharmacy 74.6; Estimated Glomerular Filt Rate > 60; Potassium 3.8 mmol/L (3.3-5.1); Sodium 142 mmol/L (135-145); Total Protein 7.5 g/dL (6.5-8.0)
[2024-12-14 11:52] VITALS: BP 143/86; PULSE 72; TEMP 36.8; O2SAT 95
[2024-12-14] MEDS: iohexoL 350 MG/ML 75 ML INFUS..BTL 60 ML IV (12:57)
[2024-12-14 14:00] VITALS: BP 139/87; PULSE 77; TEMP 36.6; O2SAT 95
[2024-12-14 14:14] VITALS: BP 139/87; PULSE 77; RESP 17; TEMP 36.6; O2SAT 95
== END 2024-12-14 14:14 | disposition home or self-care (01) ==
PROVIDERS: Emergency Provider Emergency Medicine; PCP Student in an Organized Health Care Education/Training Program
DX: I88.9 Nonspecific lymphadenitis, unspecified (principal); E11.9 Type 2 diabetes mellitus without complications; I10 Essential (primary) hypertension; J44.9 Chronic obstructive pulmonary disease, unspecified; Z79.899 Other long term (current) drug therapy
CPT/HCPCS: 36415; 70491; 80053; 85025; 96365; 96375; 99284; 99285; J0131; J0696; Q9967

== ENCOUNTER → 2024-12-14 12:06 | Outpatient (BNV) | payer OTHER, SELFPAY | PROVIDERS: Emergency Provider Emergency Medicine; PCP Student in an Organized Health Care Education/Training Program; Visit Provider Radiology Diagnostic Radiology | DX: R60.0 Localized edema (principal) | CPT/HCPCS: 70491 ==

== ENCOUNTER 2024-12-15 06:24 | Day surgery (SDC) | payer OTHER, SELFPAY ==
[2024-12-10 15:17] VITALS: BMI 25.4
--- NOTE | 2024-12-11 09:27 | HO.ANESPROP2 ---
Documented by User: Chery Sanchez NP 12/11/24 09:30 HPI - Anesthesia Eval Consult details Narrative: 64yo F for Colonoscopy Anesthesia Pre-Procedure Meds Is the patient on any of the following meds?: GLP1/DPP4 and SGLT2 Inhib PMFSH Active Problems Active Problems: All Active Problems Tinea unguium (Acute) Nail dystrophy (Acute) Paresthesia of foot, bilateral (Acute) Colon cancer screening (Acute) Greater trochanteric bursitis of left hip (Acute) Chronic ankle pain, bilateral (Acute) Spondylosis, cervical (Acute) Spondylolisthesis, cervical region (Acute) Bilateral primary osteoarthritis of knee (Acute) Sacroiliac joint dysfunction of left side (Acute) Left lumbar radiculitis (Acute) Hyperparathyroidism (Acute) Hemorrhoids (Acute) Chronic constipation (Acute) Preoperative cardiovascular examination (Acute) Tear of tendon of right ankle (Acute) Osteoarthritis of right ankle (Acute) Osteoarthritis of right knee (Acute) Osteoarthritis of left knee (Acute) Tendinitis of right peroneus brevis tendon (Acute) Diabetes type 2, uncontrolled (Acute) Trigger finger, left ring finger (Acute) Trigger finger, right middle finger (Acute) Right ankle sprain (Acute) 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) Sjogren's syndrome (Acute) DM2 (diabetes mellitus, type 2) (Acute) Vitamin D deficiency (Acute) 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 rheumatoid arthritis (Acute) Elevated cholesterol (Acute) HTN (hypertension) (Acute) MCFP (current) use of insulin (Acute) SOY (obstructive sleep apnea) (Acute) COPD (chronic obstructive pulmonary disease) (Acute) Past Medical History Medical History Tinea unguium Nail dystrophy Paresthesia of foot, bilateral Greater trochanteric bursitis of left hip Hyperparathyroidism DM2 (diabetes mellitus, type 2) Vitamin D deficiency 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 rheumatoid arthritis 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 SOY (obstructive sleep apnea) COPD (chronic obstructive pulmonary disease) Sicca syndrome Constipation Alopecia Sjogrens syndrome Osteoarthritis Rheumatoid arthritis Fibromyalgia Back pain Difficulty swallowing GERD (gastroesophageal reflux disease) Depression Asthma Elevated cholesterol HTN (hypertension) Family History Family History Father Cancer Mother Heart disease Diabetes Surgical History Surgical History History of laryngoscopy Hx of hemorrhoidectomy History of bladder suspension procedure Hx of dilation and curettage Hx of tubal ligation History of repair of left rotator cuff Hx of colonoscopy History of esophagogastroduodenoscopy (EGD) History of Problems with Anesthesia: No Social History Social History Household Members: Children and Other Household Members Other:: daughter, grandkids Are you a primary complex care nurse to a significant other at home: No Do you presently have visiting nurse or other home services: No Alcohol intake: never Patient Tobacco Use Status: Never used Tobacco e-Cigarette/Vaping Use: Never Used Second Hand Smoke Exposure: No Have you been hit, kicked, punched, or otherwise hurt by someone within the past year? 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 Meds Allergies Allergy/AdvReac Type Severity Reaction Status Date / Time codeine (Codeine) Allergy Mild BURNING IN Verified 12/15/24 06:44 CHEST, chest pain sulfamethoxazole (From Allergy Mild ITCH,RASH Verified 12/15/24 06:44 Bactrim) Home Medications ?Medication ?Instructions ?Recorded ?Confirmed ?Last Taken ?Type clonidine HCl 0.1 mg tablet 0.1 mg PO BID 12/08/19 12/10/24 Unknown History diltiazem HCl 360 mg capsule,24 360 mg PO DAILY 12/08/19 12/10/24 Unknown History hr,extended release furosemide 20 mg tablet 20 mg PO DAILY 12/08/19 12/10/24 Unknown History aspirin 81 mg tablet,delayed 81 mg PO DAILY 05/12/20 12/10/24 12/09/24 History release clonazepam 0.5 mg tablet 0.5 mg PO DAILY PRN Anxiety 10/29/22 12/10/24 Unknown History leflunomide 20 mg tablet 20 mg PO DAILY 10/29/22 12/10/24 Unknown History loratadine 10 mg tablet 10 mg PO DAILY PRN allergies 10/29/22 12/10/24 Unknown History melatonin 5 mg tablet 10 mg PO BEDTIME PRN Insomnia 10/29/22 12/10/24 Unknown History sennosides 8.6 mg tablet (senna) 17.2 mg PO DAILY PRN constipation 10/29/22 12/10/24 Unknown History atorvastatin 20 mg tablet 20 mg PO BEDTIME 04/30/23 12/10/24 Unknown History calcium carbonate 600 mg PO QAM 04/30/23 12/10/24 Unknown History carvedilol 25 mg tablet 25 mg PO BID 04/30/23 12/10/24 Unknown History cevimeline 30 mg capsule 1 cap PO QAM 04/30/23 12/10/24 Unknown History duloxetine 60 mg capsule,delayed 60 mg PO BEDTIME 04/30/23 12/10/24 Unknown History release folic acid 1 mg tablet 1 mg PO DAILY 04/30/23 12/10/24 Unknown History gabapentin 300 mg capsule 300 mg PO BID 04/30/23 12/10/24 Unknown History losartan 100 mg tablet 100 mg PO DAILY 02/10/24 12/10/24 Unknown History topiramate 25 mg tablet 25 mg PO BEDTIME 09/21/24 12/10/24 Unknown History docusate sodium 100 mg capsule 100 mg PO DAILY 12/10/24 12/10/24 Unknown History Exam Height,Weight and Vital Signs: Height 5 ft 2 in Weight 63.049 kg Pertinent Lab Results Pertinent Lab Results: Laboratory Tests 11/12/24 17:30 WBC 6.8 Hgb 13.6 Hct 40.1 Plt Count 249 Sodium 141 Potassium 3.5 Chloride 105 Carbon Dioxide 28 BUN 21 H Creatinine 0.88 Narrative Narrative: EKG 11/2024 Vent. Rate : 87 BPM Atrial Rate : 87 BPM P-R Int : 140 ms QRS Dur : 90 ms QT Int : 362 ms P-R-T Axes : 14 -30 33 degrees QTcB Int : 435 ms Normal sinus rhythm Left axis deviation Moderate voltage criteria for LVH, may be normal variant ( R in aVL , [place] product ) Possible Anterior infarct , age undetermined Abnormal ECG When compared with ECG of 20-Jun-2024 23:56, Non-specific change in ST segment in Lateral leads T wave inversion less evident in Lateral leads Assessment and Plan Assessment Anesthesia Assessment: Chart Reviewed Final Anesthetic Review History of Problems with Anesthesia: No Documented by User: Jef Medeiros MD 12/15/24 07:33 HPI - Anesthesia Eval Anesthesia Pre-Procedure Meds If yes to any meds - educate patient: Pt education - increased risk of aspiration and/or euvolemic DKA and Pt education - possibility of cancelled proc at provider's discretion (stopped Ozempic more then 10 days ago) PMFSH Past Medical History Medical History Tinea unguium Nail dystrophy Paresthesia of foot, bilateral Greater trochanteric bursitis of left hip Hyperparathyroidism DM2 (diabetes mellitus, type 2) Vitamin D deficiency 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 rheumatoid arthritis 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 SOY (obstructive sleep apnea) COPD (chronic obstructive pulmonary disease) Sicca syndrome Constipation Alopecia Sjogrens syndrome Osteoarthritis Rheumatoid arthritis Fibromyalgia Back pain Difficulty swallowing GERD (gastroesophageal reflux disease) Depression Asthma Elevated cholesterol HTN (hypertension) Functional capacity: independent ambulation Patient : No Family History Family History Father Cancer Mother Heart disease Diabetes Family history of problems with anesthesia: No Surgical History Surgical History History of laryngoscopy Hx of hemorrhoidectomy History of bladder suspension procedure Hx of dilation and curettage Hx of tubal ligation History of repair of left rotator cuff Hx of colonoscopy History of esophagogastroduodenoscopy (EGD) Social History Social History Household Members: Children and Other Household Members Other:: daughter, grandkids Are you a primary complex care nurse to a significant other at home: No Do you presently have visiting nurse or other home services: No Alcohol intake: never Patient Tobacco Use Status: Never used Tobacco e-Cigarette/Vaping Use: Never Used Second Hand Smoke Exposure: No Have you been hit, kicked, punched, or otherwise hurt by someone within the past year? 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 Meds Allergies Allergy/AdvReac Type Severity Reaction Status Date / Time codeine (Codeine) Allergy Mild BURNING IN Verified 12/15/24 06:44 CHEST, chest pain sulfamethoxazole (From Allergy Mild ITCH,RASH Verified 12/15/24 06:44 Bactrim) Home Medications ?Medication ?Instructions ?Recorded ?Confirmed ?Last Taken ?Type clonidine HCl 0.1 mg tablet 0.1 mg PO BID 12/08/19 12/10/24 Unknown History diltiazem HCl 360 mg capsule,24 360 mg PO DAILY 12/08/19 12/10/24 Unknown History hr,extended release furosemide 20 mg tablet 20 mg PO DAILY 12/08/19 12/10/24 Unknown History aspirin 81 mg tablet,delayed 81 mg PO DAILY 05/12/20 12/10/24 12/09/24 History release clonazepam 0.5 mg tablet 0.5 mg PO DAILY PRN Anxiety 10/29/22 12/10/24 Unknown History leflunomide 20 mg tablet 20 mg PO DAILY 10/29/22 12/10/24 Unknown History loratadine 10 mg tablet 10 mg PO DAILY PRN allergies 10/29/22 12/10/24 Unknown History melatonin 5 mg tablet 10 mg PO BEDTIME PRN Insomnia 10/29/22 12/10/24 Unknown History sennosides 8.6 mg tablet (senna) 17.2 mg PO DAILY PRN constipation 10/29/22 12/10/24 Unknown History atorvastatin 20 mg tablet 20 mg PO BEDTIME 04/30/23 12/10/24 Unknown History calcium carbonate 600 mg PO QAM 04/30/23 12/10/24 Unknown History carvedilol 25 mg tablet 25 mg PO BID 04/30/23 12/10/24 Unknown History cevimeline 30 mg capsule 1 cap PO QAM 04/30/23 12/10/24 Unknown History duloxetine 60 mg capsule,delayed 60 mg PO BEDTIME 04/30/23 12/10/24 Unknown History release folic acid 1 mg tablet 1 mg PO DAILY 04/30/23 12/10/24 Unknown History gabapentin 300 mg capsule 300 mg PO BID 04/30/23 12/10/24 Unknown History losartan 100 mg tablet 100 mg PO DAILY 02/10/24 12/10/24 Unknown History topiramate 25 mg tablet 25 mg PO BEDTIME 09/21/24 12/10/24 Unknown History docusate sodium 100 mg capsule 100 mg PO DAILY 12/10/24 12/10/24 Unknown History Exam Exam Date and Time: 12/15/2024 Airway Mallampati Class: II TM Dist: >3cm Neck ROM: Full Heart: normal Lungs: normal Other: normal Assessment and Plan Final Anesthetic Review Family History of Problems with Anesthesia: No NPO: Yes ASA Class: II Final Preanesthetic Review: No Changes in Pt Med Stat, Meds/Allgs Chart Reviewed, Consent Obtained/Reviewed and Anes Risks/Benef Reviewed Patient Risk: Low Procedure Risk: Low Anesthetic Plan Anesthetic Plan: MAC: Disposition: Standard PACU
[2024-12-15 06:42] VITALS: BMI 26.0
[2024-12-15] MEDS: Lactated Ringers 1,000 ML 100 ML IVCONT (06:48)
--- NOTE | 2024-12-15 06:48 | MHC.SHP ---
Pre-Procedural Eval Section A - 24 Hr Update-Section A only Date of Service: 12/15/24 Section B - Complete if H&P > 30 days Chief Complaint: screening Relevant Family History (Specify if Yes): No Relevant Social History: None Present Medications: see Short Stay Collaborative assessment Medical History: Significant History (DM2 (diabetes mellitus, type 2) Vitamin D deficiency Diabetes type 2, uncontrolled 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 rheumatoid arthritis 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 Diabetes type 2, controlled SOY (obstructive sleep apnea) COPD (chronic obstructive pulmonary disease) SOY (obstructive sleep apnea) Sicca syndrome ) History of Previous Operations: Relevant previous surgery/procedure and date(s) ( History of laryngoscopy Hx of hemorrhoidectomy History of bladder suspension procedure Hx of dilation and curettage Hx of tubal ligation History of repair of left rotator cuff Hx of colonoscopy History of esophagogastroduodenoscopy (EGD)) Allergies: Allergies Allergy/AdvReac Type Severity Reaction Status Date / Time codeine (Codeine) Allergy Mild BURNING IN Verified 12/15/24 06:44 CHEST, chest pain sulfamethoxazole (From Allergy Mild ITCH,RASH Verified 12/15/24 06:44 Bactrim) Review of Systems Sugical H&P ROS: Negative: Constitution, Cardiovascular, Respiratory, Neurological, Psychiatric, Hem-Onc, Allergic/Immunologic, Gastrointestinal, Genitourinary, Musculoskeletal, Integumentary, Endocrine and Eyes/Ears/Nose/Throat Exam Surgical H&P Exam: Normal: HEENT, Normal: Heart, Normal: Lungs, Normal: Extremities, Normal: Abdomen, Normal: Skin and Normal: Neurological Plan Diagnosis/Plan: Unchanged I have reviewed the history and physical and performed a pertinent physical examination on my patient. No changes have occurred unless specified. Time Spent With Patient Time: Total time managing care of this patient today ____ minutes.
[2024-12-15 06:57] LABS: Glucose, Whole Blood 230 mg/dL (60-115)
[2024-12-15 07:00] VITALS: BP 126/92; PULSE 86; RESP 18; TEMP 36.7; O2SAT 95
--- NOTE | 2024-12-15 08:10 | P.OPN-COLO_ITS ---
Colonoscopy Operative Note Operative Note Date of Service: 12/15/24 Narrative: Operative Information Procedure Description: Colonoscopy Indication: screening Anesthesia: MAC COLONOSCOPY Instrument: Olympus variable stiffness pediatric scope 190L Colonoscopy Monitoring: Vital signs and clinical assessment, continuous EKG monitoring, Pulse oximetry, Carbon Dioxide monitoring and blood pressure monitoring were done throughout the procedure. Colon withdrawal time was [] minutes. Procedure: The patient was placed in the left lateral decubitis position and pre-procedure medications were administered. After a digital rectal examination of the ano-rectum, the video colonoscope was inserted into the rectum and advanced through the colon to the cecum/TI. The colonoscope was slowly withdrawn in a retrograde panoramic fashion and the colon mucosa was carefully examined including a retroflexed view of the rectum. Findings and interventions are described below. 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 1 = Portion of mucosa of the colon segment seen, but other areas of the colon segment not well seen due to staining, residual stool and/or opaque liquid. 2 = Minor amount of residual staining, small fragments of stool and/or opaque liquid, but mucosa of colon segment seen well. 3 = Entire mucosa of colon segment seen well with no residual staining, small fragments of stool or opaque liquid) Impression and Post Procedure Diagnosis: colon polyp x 1 internal hemorrhoids melanosis coli Plan: High fiber diet leaflet Avoid straining at stool, epsom salts and sitz bath, anusol supps or cream Repeat Colonoscopy in 3 years or earlier if clinically indicated Above findings were reviewed with the patient and relevant handouts were provided if indicated.
[2024-12-15 08:15] VITALS: BP 120/76; PULSE 75; RESP 16; TEMP 36.3; O2SAT 93
[2024-12-15 08:29] VITALS: BP 117/81; PULSE 79; RESP 16; O2SAT 96
[2024-12-15 08:38] VITALS: BP 117/81; PULSE 76; RESP 18; TEMP 36.3; O2SAT 94
== END 2024-12-15 08:54 | disposition home or self-care (01) ==
PROVIDERS: PCP Student in an Organized Health Care Education/Training Program; Visit Provider Internal Medicine Gastroenterology
PROC: 0DJD8ZZ Inspection of Lower Intestinal Tract, Via Natural or Artificial Opening Endoscopic (ICD-10-PCS; CPT 45378; principal; 2024-12-15 07:30)
DX: Z12.11 Encounter for screening for malignant neoplasm of colon (principal); E11.9 Type 2 diabetes mellitus without complications; Z79.4 Long term (current) use of insulin; K59.09 Other constipation; K64.0 First degree hemorrhoids; K63.89 Other specified diseases of intestine; D12.2 Benign neoplasm of ascending colon
CPT/HCPCS: 45385; 45381; 82947; 88305; J2003; J2704; J3010

== ENCOUNTER → 2024-12-15 06:24 | Outpatient (BNV) | payer OTHER, SELFPAY | PROVIDERS: PCP Student in an Organized Health Care Education/Training Program; Visit Provider Internal Medicine Gastroenterology | DX: Z12.11 Encounter for screening for malignant neoplasm of colon (principal); D12.2 Benign neoplasm of ascending colon; K64.0 First degree hemorrhoids; K63.89 Other specified diseases of intestine | CPT/HCPCS: 45381; 45385 ==

== ENCOUNTER 2024-12-28 09:48 | Outpatient (AMB) | payer OTHER, SELFPAY ==
--- NOTE | 2024-12-28 10:30 | A.OFFVIS_ITS ---
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 Name: [facility] Accompanied by: Self / Same As Patient Allergies codeine (Codeine) Allergy (Mild, Verified 12/15/24 06:44) BURNING IN CHEST, chest pain sulfamethoxazole (From Bactrim) Allergy (Mild, Verified 12/15/24 06:44) ITCH,RASH HPI Comprehensive Diabetes Asmnt Most Recent Diabetes Results: 2 Microalb/Creat Ratio, (<30) 155.3 ug/mg cr H 12/25/23 Cholesterol, (<200) 154 mg/dL 12/25/23 HDL Cholesterol, (>40) 44 mg/dL 12/25/23 Triglycerides, (<150) 232 mg/dL H 12/25/23 Creatinine, (0.5-1.4) 0.67 mg/dL 12/14/24 BUN, (9-16) 13 mg/dL 12/14/24 Sodium, (135-145) 142 mmol/L 12/14/24 Potassium, (3.3-5.1) 3.8 mmol/L 12/14/24 Chloride, (96-108) 108 mmol/L 12/14/24 Carbon Dioxide, (22-29) 26 mmol/L 12/14/24 Calcium, (8.4-10.2) 9.3 mg/dL 12/14/24 AST, (5-31) 20 U/L 12/14/24 ALT, (0-31) 16 U/L 12/14/24 Total Protein, (6.5-8.0) 7.5 g/dL 12/14/24 Albumin, (3.5-5.0) 4.0 g/dL 12/14/24 [facility] Medical History Tinea unguium Nail dystrophy Paresthesia of foot, bilateral Greater trochanteric bursitis of left hip Hyperparathyroidism DM2 (diabetes mellitus, type 2) Vitamin D deficiency 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 rheumatoid arthritis custodial (current) use of insulin SOY (obstructive sleep apnea) COPD (chronic obstructive pulmonary disease) Sicca syndrome Constipation Alopecia Sjogrens syndrome Osteoarthritis Rheumatoid arthritis Fibromyalgia Back pain Difficulty swallowing GERD (gastroesophageal reflux disease) Depression Asthma Elevated cholesterol HTN (hypertension) Surgical History History of laryngoscopy Hx of hemorrhoidectomy History of bladder suspension procedure Hx of dilation and curettage Hx of tubal ligation History of repair of left rotator cuff Hx of colonoscopy History of esophagogastroduodenoscopy (EGD) Family History Father Cancer Mother Heart disease Diabetes Social History Household Members: Children and Other Household Members Other:: daughter, grandkids Are you a primary restorative care technician to a significant other at home: No Do you presently have visiting nurse or other home services: No Alcohol intake: never Patient Tobacco Use Status: Never used Tobacco e-Cigarette/Vaping Use: Never Used Second Hand Smoke Exposure: No 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al status: disabled 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 The patient met all learning objectives and was able to verbalize understanding and provide teach back of education topics discussed . The patient was provided with the opportunity to ask questions and all questions were answered. Patient Assessment Assess patient education level/literacy/barriers, patient's A1c on 09/21/2024 7.9% Patient is currently on Farxiga 10 mg daily Lantus 12 units daily Humalog 5 units before breakfast Discussed insulin action at today's visit suggested to patient she increase Humalog 5 units before breakfast to Humalog 7 units before breakfast Patient agreed to plan What is Diabetes? Pathophysiology How the body produces and uses insulin Identify type of DM Risk factors Signs of Diabetes Brief overview of Diabetes Management Monitoring blood sugar Following a meal plan Regular exercise Maintaining a healthy weight Taking medication as needed Members of the care team (PCP, RN, MA, RD, CDE, marine architect) Blood glucose monitoring Introduction to Nutrition Importance of healthy diet in managing DM Diet is personalized to individual preference Review patient?s regular diet/food preferences Who prepares meals/does food shopping/ Dining out?/ Barriers? How diet effects glucose Eating 3 balanced meals a day with small, healthy snacks between meals Review food groups Carbohydrates: What is a carbohydrate/Which food/food groups are considered carbohydrates Effect of carbohydrates on blood glucose Portion sizes Reading food labels Basic carb counting (if applicable per nursing assessment) Plate method Meal planning Recommendations: Follow plate method, consistent carbs and read nutritional labels. Smart Goal:Pt will identify foods in current meal plan by next visit Educational Materials: The patient was provided with the following written educational materials: Planning Healthy Meals Handout Patient Response to instructions: Comprehension of Instructions: Fair Readiness to make changes: Contemplation How confident they feel about making changes: Positive Portions of this note were created using voice recognition software, please excuse any words or phrases that may have been misinterpreted. Patient Instructions: Aumente Humalog a 7 unidades antes del desayuno. Incluir actividad diaria regular. ADA recomienda 30 minutos de ejercicio 5 d?as a la semana. P?rdida de peso, hable con el PCP o el cardi?logo antes de comenzar un nuevo plan. Mida el nivel de az?car en la jann seg?n las indicaciones; Ayuno y comida m?s dalia de 2hpp. Observe las tendencias en los resultados. Utilice los resultados y eval?e c?mo los alimentos, la actividad f?christine y los medicamentos afectan los resultados de az?car en la jann. Lleve el gluc?metro o CGM a la pr?xima visita. Conocer los medicamentos para la diabetes, shane acci?n, los efectos secundarios, la eficacia, la toxicidad, la dosis prescrita, el momento y la frecuencia de administraci?n apropiados, el efecto de las dosis olvidadas y retrasadas y las instrucciones de almacenamiento, viaje y seguridad. T?cnicas de resoluci?n de problemas para el seguimiento de episodios de hipo/hiperglucemia y tratamientos. Reducir los comportamientos de reducci?n de riesgos, dejar de fumar, ex?menes regulares de ojos, pies y dentales. Coding Level of Care Code Est Pt Level 1 (17136) Diagnoses Uncontrolled type 2 diabetes mellitus with hyperglycemia E11.65 Glycemic state: with hyperglycemia
--- OUTSIDE RECORDS SUMMARY | 2024-12-28 11:18 | XMS_ITS | Encounter Summary ---
Author Organization [employer] Address [address] [place] [address] Care Team Providers Care Prime Minister Name Role Phone Emy Askew MD Primary Care Pro vider Reason for Visit * Reason Onset Date Comments Triage 07/31/2022 Encounter Details Date Type Department Care Team ([facility] st Contact Info) Description 07/31/2022 Telephone [facility] MEDICINE [address] [place] [address] Emy Askew MD [address] [place] [address] Triage Social History Tobacco Use Types Packs/Day [...] The caller accepted this outcome Patient speaks yi. documented in this encounter Plan of Treatment Upcoming Encounters Date Type Department Care Team (Late st Contact Info) Description 02/11/2025 9:30 AM EST Office Visit [facility] MED[facility]INE [address] [place] [address] Emy Askew MD [address] [place] [address] 03/19/2025 9:30 AM EST Office Visit [facility] OPTOMETRY [address] [place], [place] [phone] Rachel Collado, OD [address] [place] [address] documented as of this encounter Visit Diagnoses Not on filedocumented in this encounter Care Teams Prime Minister Relationship Specialty Start Date End Date Emy Askew MD [address] [place] [address] PCP - General Internal Medicine 07/25/22 documented as of this encounter
--- OUTSIDE RECORDS SUMMARY | 2024-12-28 11:18 | XMS_ITS | Encounter Summary ---
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 Hold am of surgery lasix,amytriptiline,lisinopril ??.HoldASA 5 days prior procedure and avoid NSAIDS 7 days prior procedure. Thanks documented in this encounter Plan of Treatment Upcoming Encounters Date Type Department Care Team (Late st Contact Info) Description 02/11/2025 9:30 AM EST Office Visit [facility] MEDICINE [address] [place] [address] Emy Askew MD [address] [place] [address] 03/19/2025 9:30 AM EST Office Visit [facility] OPTOMETRY [address] [place] [address] Rachel Collado, OD [address] [place] [address] documented as of this encounter Visit Diagnoses Not on filedocumented in this encounter Additional Health Concerns Assessment Noted Time PHQ-9 Depression Total Score: 16 023 10:16 AM EDT documented as of this encounter Care Teams Surgical Territory Manager Relationship Specialty Start Date End Date Emy Askew MD [address] [place] [address] PCP - General Internal Medicine 07/25/22 documented as of this encounter
--- OUTSIDE RECORDS SUMMARY | 2024-12-28 11:18 | XMS_ITS | Encounter Summary ---
Author Organization [employer] Address [address] [place] [address] [address] [place] [address] Care Team Providers Care Flower Grower Name Role Phone Emy Askew MD Primary Care Pro vider Reason for Visit * Reason Comments Med Refill Encounter Details Date Type Department Care Team ([facility] Contact Info) Description 12/28/2024 Refill [facility] MEDICINE [address] [place] [address] Emy Askew MD [address] [place] [address] Social History Tobacco Use Types Packs/Day Years [...] Description 02/11/2025 9:30 AM EST Office Visit [facility] MEDICINE [address] [place] [address] Emy Askew MD [address] [place] [address] 03/19/2025 9:30 AM EST Office Visit [facility] OPTOMETRY [address] [place] [address] Tobias, Rachel, OD [address] [place] [address] documented as of this encounter Visit Diagnoses Not on filedocumented in this encounter Additional Health Concerns Assessment Noted Time PHQ-9 Depression Total Score: 15 025 10:41 AM EDT documented as of this encounter Care Teams Flower Grower Relationship Specialty Start Date End Date Emy Askew MD [address] [place] [address] PCP - General Internal Medicine 07/25/22 documented as of this encounter
--- OUTSIDE RECORDS SUMMARY | 2024-12-28 11:18 | XMS_ITS | Encounter Summary ---
Author Organization [employer] Address [address] [place] [address] Care Team Providers Care Tie Fastener Name Role Phone Emy Askew MD Primary Care Pro vider Encounter Details Date Type Department Care Team ([facility] st Contact Info) Description 08/07/2023 Orders Only [facility] [address] [place] [address] Valeria Armas FNP [address] [place] [address] Social History Tobacco Use Types Packs/Day Years [...] 02/11/2025 9:30 AM EST Office Visit [facility] [address] [place] [address] Emy Askew MD [address] [place] [address] 03/19/2025 9:30 AM EST Office Visit [facility] OPT[facility] [address] [place] [address] Tobias, Rachel, OD [address] [place] [address] documented as of this encounter Visit Diagnoses Not on filedocumented in this encounter Additional Health Concerns Assessment Noted Time PHQ-9 Depression Total Score: 16 023 10:16 AM EDT documented as of this encounter Care Teams Tie Fastener Relationship Specialty Start Date End Date Emy Askew MD [address] [place] [address] PCP - General Internal Medicine 07/25/22 documented as of this encounter
--- OUTSIDE RECORDS SUMMARY | 2024-12-28 11:19 | XMS_ITS | Clinical Summary ---
Author Organization [facility] Address [address] [place] [address] Phone Care Team Providers Care Trailer Rental Clerk Name Role Phone Mark Foote MD Primary [...] topic Medical Devices Not on file [place] [address] [place] [address] C3 ACO [facility] C3 ACO [employer] Care Teams Trailer Rental Clerk Relationship Specialty Start Date End Date Mark Foote MD [address] [place] [address] PCP - General Pediatrics 10/15/19 Additional Source Comments The information contained in this document represents components of the legal health record. It is not the complete legal health record.[facility]
--- OUTSIDE RECORDS SUMMARY | 2024-12-28 11:19 | XMS_ITS | Encounter Summary ---
Author Organization [employer] Address [address] [place] [address] [address] [place] [address] Care Team Providers Care Brick Off Bearer Name Role Phone Kenya Sol CHAMBER WORKER Primary Care Provider [phone] Emy Askew MD Primary Care Pro vider Encounter Details Date Type Department Care Team (Late st Contact Info) Description 05/28/2022 Orders Only [facility] [address] [place], [place] [phone] Candy Miller LPN Social History Tobacco Use [...] Description 02/11/2025 9:30 AM EST Office Visit [facility] MEDICINE [address] [place], [place] [phone] Emy Askew MD [address] [place], [place] [phone] 03/19/2025 9:30 AM EST Office Visit [facility] OPTOMETRY [address] [place], [place] [phone] Rachel Collado OD [address] [place] [address] documented as of this encounter Visit Diagnoses Not on filedocumented in this encounter Care Teams Brick Off Bearer Relationship Specialty Start Date End Date Kenya Sol FNP [address] [place] [address] PCP - General Family Medicine 01/22/22 07/24/22 Emy Askew MD [address] [place] [id number] PCP - General Internal Medicine 07/25/22 documented as of this encounter
--- OUTSIDE RECORDS SUMMARY | 2024-12-28 11:19 | XMS_ITS | Clinical Summary ---
Author Organization [employer] Address [address] [place] [address] 7[address] [place] [address] Care Team Providers Care Senior Government Program Analyst Name Role Phone Emy Askew MD [...] needed for dry eyes 018 Active Fluticasone Furoate-Vilantero l (Breo Ellipta) 100-25 MCG/ACT aerosol powder Inhale 1 puff at bed time. 022 Active acetaminophen (Tylenol) 500 MG tabletIndications :Acute [...] evening. Active Diclofenac Sodium (Voltaren) 1 % gelIndications:Ne [...] capsule by mouth 2 times daily. Active TRUEplus Lancets 33G misc USE DIRECTED TO TEST BLOOD SUGAR FOUR TIMES DAILY 100 each 11 Active Ventolin HFA 108 (90 Base) MCG/ACT inhaler INHALE 2 PUFFS BY MOUTH EVERY 6 HOURS NEEDED FOR WHEEZING 18 g 2 Active docusate sodium (Colace) 100 MG capsuleIndication [...] each 12 025 2025 Active Continuous Glucose Rn Oncology (FreeStyle Anthony 3 Weston) deviceIndications :Type 2 diabetes mellitus without complication, unspecified whether medical terminologist insulin use 1 each Once per day. Use as directed for CGM 1 each 025 Active Continuous Glucose Sensor (FreeStyle Anthony 3 Plus Sensor) miscIndications:T ype 2 diabetes mellitus without complication, unspecified whether long-term insulin use 1 each every 15 days. [...] 2 diabetes mellitus without complication, unspecified whether medical terminologist insulin use USE DIRECTED FIVE TIMES DAILY 100 each 025 Active cevimeline (Evoxac) 30 MG capsule TAKE 1 CAPSULE BY MOUTH THREE TIMES DAILY IN THE MORNING, AT NOON, AND IN THE EVENING 90 capsule 2 025 Active calcium carbonate 1500 (600 Ca) MG tabletIndications :Benign essential hypertension TAKE 1 TABLET BY MOUTH EVERY MORNING 90 tablet 025 Active Aspirin Low Dose 81 MG EC tablet TAKE 1 TABLET BY MOUTH EVERY MORNING 90 tablet 025 Active loratadine (Claritin) 10 MG tablet TAKE 1 TABLET BY MOUTH EVERY DAY NEEDED FOR ALLERGIES 90 tablet 025 Active losartan (Cozaar) 100 MG tablet TAKE 1 TABLET BY MOUTH EVERY MORNING 90 tablet 025 Active senna (Senokot) 8.6 MG tablet TAKE 2 TABLETS BY MOUTH EVERY DAY NEEDED FOR CONSTIPATION 180 tablet 025 Active carvedilol (Coreg) 25 MG tabletIndications :Benign essential hypertension TAKE 1 [...] times daily. Active lidocaine (Lidoderm) 5 % patchIndications: Neck pain Apply 1 patch topically Once per day. Remove & discard patch within 12 hours or as directed by MD. 60 patch 2 025 Active D3 Super Strength 50 MCG (2000 UT) capsuleIndication s:Vitamin D deficiency, unspecified TAKE 1 CAPSULE BY MOUTH EVERY MORNING 90 capsule 1 025 Active D3 Super Strength 50 MCG (2000 UT) capsuleIndication s:Vitamin D deficiency, unspecified TAKE 1 CAPSULE BY MOUTH EVERY MORNING 90 capsule 1 025 2024 Discontinued Active Problems Problem Noted [...] referred by ENT for further eval in [place] but never went -referred again to ENT [...] referred by ENT for further eval in [place] but never went -referred again to ENT [...] Rheumatoid arthritis with po sitive rheumatoid factor ([facility]/HCC) 03/07/2022 Assessment & Plan (12/06/2022 6:18 AM EDT): Pt w RA / Sjogren's disease, follows w piano mover - Continue care w specialist -on leflunomide and MTX Assessment & Plan (10/23/2022 5:23 PM EDT): Pt w RA / Sjogren's disease, follows w piano mover - Continue care w specialist -on leflunomide and MTX Assessment & Plan (09/24/2022 8:33 PM EDT): Pt w RA / Sjogren's disease, follows w piano mover - Continue care w specialist Bilateral post-traumatic [...] Pt following w psychiatrist and therapist at [facility]. Denies SI but has thoughts to be better off . - Continue care w specialist - Pt requests information to be able to change to an old age home --already received information -in process per pt Assessment & Plan (10/23/2022 5:23 PM EDT): Pt following w psychiatrist and therapist at [facility]. Denies SI but has thoughts to be better off . - Continue care w specialist - Pt requests information to be able to change to an old age home --already received information -in process per pt Assessment & Plan (09/24/2022 8:32 PM EDT): Pt following w psychiatrist and therapist at [facility]. Denies SI but has thoughts to be better off . - Continue care w specialist - Pt requests information to be able to change to an old age home -- I spoke w pillowcase cleaner today and they will come to speak w pt to give info. Was told that there is no need to refer to CM for this. Type 2 diabetes mellitus without complication Assessment & Plan (12/06/2022 6:16 AM EDT): 09/2022 HbA1C 8.2<---8.7, CBG 248., total ch 169, trig 324( in fasting) ,HDL 36,LDL 69, Microalb neg Used to follow w biscuitware brusher, but lost care. Not on metformin for [...] - to f in 1 y. - Tire Curer: seen in 11/2022 Assessment & Plan (10/23/2022 5:46 PM EDT): 09/2022 HbA1C 8.2<---8.7, CBG 248., total ch 169, trig 324( in fasting) ,HDL 36,LDL 69, Microalb neg Used to follow w biscuitware brusher, but lost care. Not on metformin for [...] - to f in 1 y. - Tire Curer: referred today Assessment & Plan (09/24/2022 8:51 PM EDT): Today HbA1C 8.7, CBG 248. Used to follow w biscuitware brusher, but lost care. - DM2 labs. - Will consider increasing Trulicity at her next appt. - Pt not currently on Metformin, but used to be in the past. Will check at her next appt, and if she can tolerate it, will resume Rx. - Ophthalmology 07/2022 - to f in 1 y. - Tire Curer: will refer at next visit. Varicose veins of lower extremity 07/08/2017 Assessment & Plan (10/23/2022 5:12 PM EDT): Pt w lower extremity edema trace from 1+ before , possibly from Cardiazem and venous insufficiency. - Advised to use compression stockings,--started using with noted improved LE edema -I confirmed today w her automotive parts counter assistant-Dr Watkins #[phone] that pt does not have CHF and [...] (12/06/2022 6:19 AM EDT): Pt following with piano mover. Pt w consistently dry mouth. From med [...] for unclear reasons. - PT following w automotive parts counter assistant actively w on and off chest discomfort. [...] mg in pm - PT following w automotive parts counter assistant -will f BP in next 3 to 4 weeks Assessment & Plan (09/24/2022 8:43 PM EDT): BP slightly elevated at 144/94 - Holter 2019 neg. -echocardiogram 2018The left ventricular systolic function is normal. The visually estimated ejection fraction is between 60-65%. -stress test 2019 : nondiagnostic EKG For ischemia. - Will monitor BP manually at next visit. - PT following w automotive parts counter assistant Chronic constipation 12/24/2016 Gastroesophageal reflux disease without [...] in 2016 here . I called her automotive parts counter assistant today and he reports last EKG was normal as well Museum Security Chief -Dr Watkins states given QTC < 500 [...] and leflunomide ( if ok wit her piano mover)-pt to ask and Cymbalta if taking in am. Hold am of surgery lasix,amytriptiline,lisinopril .Hold ASA 5 days prior procedure and avoid NSAIDS 7 days prior procedure. -will rec to have post op EKG as rec by her automotive parts counter assistant for noted prolonged QTC -will rec to [...] Encounters Date Type Department Care Team Description 12/28/2024 Refill [facility] [address] [facility] [place] [address] Emy Askew MD 12/17/2024 Refill [facility] [address] [facility] [place] [address] Emy Askew MD Vitamin D deficiency, unspecified 12/15/2024 Orders Only GENERIC EXTERNAL DATA DEPARTMENT Provider, Generic External Data 12/14/2024 Orders Only GENERIC EXTERNAL DATA DEPARTMENT Provider, Generic External Data 11/24/2024 10:45 AM EDT Office Visit [facility] [address] [place] [phone] Emy Askew MD Lesion of tonsil (Primary Dx); Rheumatoid arthritis with positive rheumatoid factor, involving unspecified site ([facility]/HCC); Neck pain; Encounter for immunization; Health care maintenance; Sialoadenitis of submandibular gland; Type 2 diabetes mellitus without complication, unspecified whether long-term insulin use ([facility]); Hypokalemia; Healthcare maintenance; Poor memory; Elevated alkaline phosphatase level; Benign essential hypertension 11/24/2024 Travel 11/24/2024 Orders Only GENERIC EXTERNAL DATA DEPARTMENT Provider, Generic External Data 11/23/2024 Telephone [facility] [address] [place] [address] Emy Askew MD chart prep 11/21/2024 Refill [facility] [address] [place] [address] Emy Askew MD Benign essential hypertension 11/17/2024 Patient Outreach [address] [address] Emy Askew MD Pre-visit Planning (LVM ) 10/29/2024 Refill [facility] [address] [place] [address] Lucina Haro MD 10/29/2024 Refill [facility] [address] [place] [address] Emy Askew MD 10/26/2024 Refill [facility] [address] [place] [address] Lucy Main MD Benign essential hypertension 10/19/2024 9:30 AM EDT Clinical Support [facility] [address] [place] [address] Kaylen Mane RN Hyperlipidemia associated with type 2 diabetes mellitus ([facility]/HCC) 10/19/2024 Travel 10/18/2024 Telephone [facility] [address] [place] [phone] Emy Askew MD Med Refill 10/16/2024 Travel 10/12/2024 Telephone [facility] [address] [place] [address] Emy Askew MD Prior Authorization (Ozempic) 10/08/2024 Refill [facility] [address] [place] [address] Lucy Main MD Type 2 diabetes mellitus without complication, unspecified whether medical terminologist insulin use ([facility]) 10/01/2024 1:00 PM EDT Clinical Support [facility] [address] [place] [address] Akilah Maradiaga, GARY Type 2 diabetes mellitus without complication, unspecified whether medical terminologist insulin use ([facility]) 10/01/2024 Travel 09/29/2024 Telephone [facility] [address] [place] [address] Doris Henry RN CGM 09/28/2024 Refill [facility] [address] [place] [address] Keely Lutz MD from Last 3 Months Immunizations Immunization Administration [...] Description 02/11/2025 9:30 AM EST Office Visit [facility] [address] [place] [address] Emy Askew MD [address] [place] [address] 03/19/2025 9:30 AM EST Office Visit [facility] [address] [place] [address] Tobias, Rachel, OD [address] [place] [address] Health Maintenance Due Date Last Done Comments CT Colonography 1960 FIT DNA/Cologuard 1960 FIT 1960 FOBT 1960 Sigmoidoscopy 1958 Diabetes: Foot Exam 1968 Dental Oral Exam 04/29/2022 10/26/2021, 10/2020, 04/06/2019, Additional history exists Dental Prophylaxis 01/18/2023 07/17/2022, 0 10/26/2021, 04/14/2021, Additional history exists Dental X-Ray: Full Mouth 08/20/2023 08/18/2020, 030 10/2020 Colonoscopy 05/08/2024 05/09/2023 Colorectal Cancer Screening [...] Procedure Name Priority Date/Time Associated Diagnosis Comments HEMATOXYLIN AND EOSIN STAIN Routine 12/15/2024 8:01 AM EDT GLUCOSE, WHOLE BLOOD Routine 12/15/2024 6:[address] SOFT TISSUE NECK W CONTRAST Routine 12/14/2024 1:19 PM EDT COMPREHENSIVE METABOLIC PANEL Routine 12/14/2024 10:22 AM EDT CBC WITH AUTO DIFFERENTIAL Routine 12/14/2024 10:22 AM EDT GLUCOSE, WHOLE BLOOD Routine 11/24/2024 9:04 AM EDT XR PELVIS 1-2 VIEWS Routine 10/06/2024 3 :02 PM EDT POCT GLYCATED HEMOGLOBIN, TOTAL Routine 09/11/2024 9:28 AM EDT Type 2 diabetes mellitus without complication, unspecified whether medical terminologist insulin use ([facility]) BI MAMMOGRAM SCREENING TOMOSYNTHESIS BILATERAL Routine 03/17/2024 1:00 PM EST LIPID PANEL, STANDARD Routine 12/25/2023 7:08 AM EDT Annual physical exam ALBUMIN, RANDOM URINE W/CREATININE Routine 12/25/2023 7:05 AM EDT Annual physical exam BITEWING - SINGLE RADIOGRAPHIC IMAGE Routine 06/10/2023 3:30 PM EDT Periodontal disease Fractured dental caodaism with loss of material HPV MRNA E6/E7 [...] Recently Relevant to Health Maintenance Results * Hematoxylin and Eosin Stain (12/15/2024 8:01 AM EDT) 12/15/2024 8:01 AM EDT 12/15/2024 9:35 AM EDT [facility] - 12/16/2024 3:57 PM EDT ----- ------- Name: Jennifer Palmer Age/Sex: 64/F : 1960 Unit#: [id number] Attend Dr: Thor Callahan MD Re12/15/24 Status: [facility] Location: [facility] Disch: ----- ------- SPEC : [id number] RECD: 12/15/24 STATUS: CORRIE VELEZ NUM: [id number] PRANAY: 12/15/[address] [facility] [address]: Thor Callahan MD ENTERED: 12/15/24 SP TYPE: Surgical OTHR DR: Emy Askew MD ORDERED: HE Stain/3, Gross Micro L4 Diagnosis Colon, ascending, polypectomy: Fragments of tubular adenoma; negative for high-grade dysplasia or carcinoma. Clinical History Pre-Op Dx: Screening Post-Op Dx: Colon polyp, diverticulosis, hemorrhoids Microscopic Description Microscopic sections reviewed. Material Received Ascending colon polyp Gross Description Received in formalin labeled ascending colon polyp are fragments of tran-white and pink tran soft tissue ranging from 0.2 to 0.7 cm in greatest dimension, forming in aggregate measuring 1.5 x 1.2 x 0.3 cm which is wrapped in lens paper and entirely submitted for microscopic examination, multiple pieces in cassette A. ([facility]) IHC S/NG Disclaimer NOTE: Unless otherwise stated, all tissue is formalin-fixed and paraffin-embedded. Some or all of the immunohistochemical tests reported herein may have been developed and their performance characteristics determined by [facility]. They have not been cleared or approved by the U.S. Food and Drug Administration (FDA). However, the FDA has determined that such clearance or approval is not necessary. This laboratory is certified under the Clinical Laboratory Improvement Amendments of 1988 (CLIA) as qualified to perform high complexity clinical laboratory testing. Copies To: Thor Callahan MD [facility] [address] [place] [id number] CONTINUED ON NEXT PAGE ----- ------- Name: Jennifer Palmer Age/Sex: 64/F : 1960 Unit#: [id number] Attend Dr: Thor Callahan MD Re12/15/24 Status: [facility] Location: [facility] Disch: ----- ------- SPEC : [id number] RECD: 12/15/24 STATUS: CORRIE ROSIE NUM: [id number] PRANAY: 12/15/[address] [facility] [address]: Thor Callahan MD ENTERED: 12/15/24 SP TYPE: Surgical OTHR DR: Emy Askew MD ORDERED: HENRI Valderrama/3, Gross Micro L4 Copies To: (Continued) Emy Askew MD [address] [address] ----- ------- Signed (signature on file) Wesley Jackson MD 12/16/24 1557 ----- ------- END OF REPORT Generic External Data Provider LAB BLOOD ORDERAB LES Final Result Performing Organization Address [facility] Co de Phone Number [facility] [address] [place] [phone] * (ABNORMAL) Glucose, Whole Blood (12/15/2024 6:50 AM EDT) [facility] Signature Glucose, Whole Blood 230(H) 60 - 115 mg/dL [facility] Comment:METER #: [id number] 12/15/2024 6:50 AM EDT 12/15/2024 6:57 AM EDT Generic External Data Provider LAB BLOOD ORDERAB LES Final Result Performing Organization Address [facility] de Phone Number [facility] [address] [place] [phone] * CT Soft Tissue Neck w/ Contrast (12/14/2024 1:19 PM EDT) Anatomical Region Laterality Modality Head, Neck Computed Tomogra phy 12/14/2024 1:19 PM EDT Narrative 12/14/2024 1:21 PM EDT [address] [address] [address] Scan Report Signed Patient: Jennifer Palmer MR#: [id number] 0 : 1960 Acct:[id number] Age/Sex: 64 / F ADM Date: 12/14/24 Loc: .ED Attending Dr: Ordering Physician: Gregg Santoro PA-C Date of Service: 12/14/24 Procedure(s): CT soft tissue neck w IV con Accession Number(s): [id number] cc: Gregg Santoro PA-C; Emy Askew MD Report Number: [id number]: Total DLP = 484.00 mGy-cm Reason for Exam: painful swelling R side of neck CLINICAL HISTORY: painful swelling R side of neck CT soft tissue neck with contrast Comparison: None provided Findings: The visualized intracranial contents are unremarkable. No prevertebral fluid. Epiglottis is within normal limits. Pharyngeal mucosal space and parapharyngeal fat are normal. There is a mild degree of lymphadenopathy within the neck, predominating within the right carotid space. Lymph nodes measure up to 11 mm in short axis dimension. There is extensive fatty replacement of parenchyma within the bilateral submandibular and parotid glands. No suspicious thyroid nodules. There are trace bilateral pleural effusions. There is no consolidative process. No acute fractures. There is edema of the soft tissues of the lateral aspect of the right side of the neck. There is no associated fluid collection. Multiple missing teeth. No periodontal abscess. IMPRESSION: 1. Edema of the right lateral neck suggesting an inflammatory process. 2. Mild lymphadenopathy within the neck, most likely inflammatory. 3. Trace bilateral pleural effusions. This document has been electronically signed by: Lakeshia Ellsworth MD on 12/14/2024 13:19:43 Dictated By: Lakeshia Ellsworth MD Signed By: <Electronically signed by Lakeshia Ellsworth MD in OV> 12/14/24 1320 DD/ 1319 TD/TT: 12/14/24 1319 Leather Goods Assembler: Procedure Note Donotuseinterpreter, Image - 12/14/[address] [address] [address] Scan Report Signed Patient: Axel Palmer#: [id number] 0 : 9Acct:[id number] Age/Sex: 64 / FADM Date: 12/14/24 Loc: HO.ED Attending Dr: Ordering Physician: Gregg Santoro PA-C Date of Service: 12/14/24 Procedure(s): CT soft tissue neck w IV con Accession Number(s): [id number] cc: Gregg Santoro PA-C; Emy Aksew MD Report Number: [id number]: Total DLP = 484.00 mGy-cm Reason for Exam: painful swelling R side of neck CLINICAL HISTORY: painful swelling R side of neck CT soft tissue neck with contrast Comparison: None provided Findings: The visualized intracranial contents are unremarkable. No prevertebral fluid. Epiglottis is within normal limits. Pharyngeal mucosal space and parapharyngeal fat are normal. There is a mild degree of lymphadenopathy within the neck, predominating within the right carotid space. Lymph nodes measure up to 11 mm in short axis dimension. There is extensive fatty replacement of parenchyma within the bilateral submandibular and parotid glands. No suspicious thyroid nodules. There are trace bilateral pleural effusions. There is no consolidative process. No acute fractures. There is edema of the soft tissues of the lateral aspect of the right side of the neck. There is no associated fluid collection. Multiple missing teeth. No periodontal abscess. IMPRESSION: 1. Edema of the right lateral neck suggesting an inflammatory process. 2. Mild lymphadenopathy within the neck, most likely inflammatory. 3. Trace bilateral pleural effusions. This document has been electronically signed by: Lakeshia Ellsworth MD on 12/14/2024 13:19:43 Dictated By: Lakeshia Ellsworth MD Signed By: <Electronically signed by Lakeshia Ellsworth MD in OV> 12/14/24 1320 DD/ 1319 TD/TT: 12/14/24 1319 Leather Goods Assembler: [facility] External Provider IMG CT PROCEDURES Edited Result - Final * (ABNORMAL) CBC auto differential (12/14/2024 10:22 AM EDT) White Blood Count 9.5 4.8 - 10.8 X10*3/uL [facility] Red Blood Count 4.92 4.20 - 5.50 X10*6/uL [facility] Hemoglobin 14.4 12.0 - 16.0 g/dl [facility] Hematocrit 44.1 37.0 - 47.0 % [facility] Mean Corpuscular Volume 89.6 80.0 - 98.0 fL [facility] Mean Corpuscular Hemoglobin 29.3 27.0 - 33.0 pg [facility] Mean Corpuscular HGB Conc 32.7 31.0 - 35.0 g/dl [facility] Red Cell Distribution Width 12.9 11.0 - 16.0 % [facility] Platelet Count 253 160 - 400 X10*3/uL [facility] Mean Platelet Volume 10.0 9.4 - 12.3 fL [facility] Neutrophils Percent Auto 60.5 45 - 73 % [facility] Imm Gran Pct Auto 0.8(H) 0.0 - 0.4 % [facility] Lymphocytes Percent Auto 25.3 20 - 40 % [facility] Monocytes Percent Auto 8.5 2 - 11 % [facility] Eosinophils Percent Auto 4.4(H) 0 - 4 % [facility] Basophils Percent Auto 0.5 0 - 2 % [facility] NRBC Pct Auto 0.0 0.0 - 0.2 /100WBC [facility] Neutrophils Absolute Auto 5.7 2.0 - 8.3 x10*3/uL [facility] Imm Gran Abs Auto 0.08(H) 0.00 - 0.03 X10*3/uL [facility] Lymphocytes Absolute Auto 2.4 1.2 - 4.9 X10*3/uL [facility] Monocytes Absolute Auto 0.8 0.1 - 1.2 X10*3/uL [facility] Eosinophils Absolute Auto 0.4 0.0 - 0.4 X10*3/uL [facility] Basophils Absolute Auto 0.1 0.0 - 0.2 X10*3/uL [facility] NRBC Abs Auto 0.000 0.0 - 0.012 X10*3/uL [facility] 12/14/2024 10:2 2 AM EDT 12/14/2024 10:26 AM EDT us Generic External Data Provider LAB BLOOD ORDERAB LES Final Result [facility] [address] [place] [phone] [phone] * (ABNORMAL) Comprehensive Metabolic Panel (12/14/2024 10:22 AM EDT) Sodium 142 135 - 145 mmol/L [facility] Potassium 3.8 3.3 - 5.1 mmol/L [facility] Chloride 108 96 - 108 mmol/L [facility] Carbon Dioxide 26 22 - 29 mmol/L [facility] Anion Gap 12 12 - 20 [facility] Urea Nitrogen (BUN) 13 9 - 16 mg/dL [facility] Creatinine, Serum 0.67 0.5 - 1.4 mg/dL [facility] Creatinine Clr Calc Pharmacy 74.6 [facility] Comment:Provided height and weight: 157.48 cm,68.039 kg.eGFR (calculated from the MDRD study equation) and eCrCl(calculated from the Cockcroft-Gault equation) are based ondifferent parameters and may not yield comparable results.If eCrCl result is absurd, please check patient'sheight/weight. Estimated Glomerular Filt Rate >60 [facility] Comment:Chronic Kidney Disea se: Estimated GFR < 60 mL/min/[id number] Kidney Disease: Estimated GFR < 15 mL/min/1.73m2 Glucose 259(H) 60 - 115 mg/dL [facility] Calcium 9.3 8.4 - 10.2 mg/dL [facility] Bilirubin, Total 0.3 0.0 - 1.0 mg/dL [facility] Aspartate Amino Transferase 20 5 - 31 U/L [facility] Alanine Aminotransferase 16 0 - 31 U/L [facility] Total Protein 7.5 6.5 - 8.0 g/dL [facility] Albumin Level 4.0 3.5 - 5.0 g/dL [facility] Alkaline Phosphatase 129(H) 39 - 117 U/L [facility] 12/14/2024 10:2 2 AM EDT 12/14/2024 10:26 AM EDT us Generic External Data Provider LAB BLOOD ORDERAB LES Final Result Performing Organization Address City/[facility]/ZIP Co de Phone Number [facility] [address] [place] [address] [phone] * (ABNORMAL) Glucose, Whole Blood (11/24/2024 9:04 AM EDT) Glucose, Whole Blood 326(H) 60 - 115 mg/dL [facility] Comment:METER #: [id number] Testing performed in the Endocrinology Department 58 [address], [facility]. 11/24/2024 9:04 AM EDT 11/24/2024 9:07 AM EDT Generic External Data Provider LAB BLOOD ORDERAB LES Final Result Performing Organization Address [facility]/ZIP Co de Phone Number [facility] [address] [place] [address] [phone] * XR Pelvis 1-2 Views (10/06/2024 3:02 PM EDT) Anatomical Region Laterality Modality Body, Pelvis Radiographic Karla ging 10/06/2024 3:02 PM EDT Narrative 10/06/2024 3:03 PM EDT [facility] [address] [place] [address] Drive [address] [place] [address] XRay Report Signed Patient: Jennifer Palmer MR#: [id number] 0 : 1960 Acct:[id number] Age/Sex: 64 / F ADM Date: 10/06/24 Loc: HO.HOSX Attending Dr: Amada Macias PA-C Ordering Physician: Amada Macias PA-C Date of Service: 10/06/24 Procedure(s): XR pelvis 1-2V Accession Number(s): [id number] cc: Amada Macias PA-C; Emy Askew MD [...] 10/06/24 1503 DD/ 1502 TD/TT: 10/06/24 150 Leather Goods Assembler: Procedure Note Donotuseinterpreter, Image - 10/06/2024 [facility] [address] [place] [address] Drive [address] [place] [address] XRay Report Signed Patient: Axel Palmer#: [id number] 0 : 9Acct:[id number] Age/Sex: 64 / FADM Date: 10/06/24 Loc: HO.SEFERINOX Attending Dr: Amada Macias PA-C Ordering Physician: Amada Macias PA-C Date of Service: 10/06/24 Procedure(s): XR pelvis 1-2V Accession Number(s): [id number] cc: Amada Macias PA-C; Emy Askew MD [...] Adames MD in OV> 10/06/24 1503 DD/ 150 TD/TT: 10/06/241501 Leather Goods Assembler: [facility] External Provider IMG XR PROCEDURES Edited Result - Final * (ABNORMAL) POCT HGB A1C (09/11/2024 9:28 [...] PM EST Narrative 03/28/2024 10:52 AM EST [facility] [address] [place] [address] Mammography Report Signed Patient: Jennifer Palmer MR#: [id number] 0 : 1960 Acct:[id number] Age/Sex: 63 / F ADM Date: 03/17/24 Loc: HO.MAMMO Attending Dr: Emy Goldsmith MD Ordering Physician: Emy Askew MD Re sults: 1Negative Date of Service: 03/17/24 Follow Up: 1 Year From [facility] ina Mammogram Procedure(s): MM tomosynthesis screening BI Accession Number(s): [id number] cc: Emy Askew MD EXAMINATION: MM SCREENING [...] Sadia Monae DO 03/28/2024 10:49 AM EST RP Dictated By: Sadia Monae DO Signed By: <Electronically signed by Sadia Monae DO in OV> 03/28/24 1049 DD/ 1300 TD/TT: 03/17/24 1320 Leather Goods Assembler: Procedure Note Donotuseinterpreter, Image - 03/28/2024 [facility] [address] [place], [place] [address] Mammography Report Signed Patient: Axel Palmer#: [id number] 0 : 9Acct:[id number] Age/Sex: 63 / FADM Date: 03/17/24 Loc: HOMirianMAMMO Attending Dr: Emy Goldsmith MD Ordering Physician: Emy Askew sults: 1Negative Date of Service: 03/17/24Follow Up: 1 Year From Orig inal Mammogram Procedure(s): MM tomosynthesis screening BI Accession Number(s): [id number] cc: Emy Askew MD EXAMINATION: MM SCREENING [...] Sadia Monae DO 03/28/2024 10:49 AM EST RP Dictated By: Sadia Monae DO Signed By: <Electronically signed by Sadia Monae DO in OV> 03/28/24 1049 DD/ 1300 TD/TT: 03/17/24 1320 Leather Goods Assembler: us Emy Goldsmith MD IMG BI PROCEDURES Final Result * (ABNORMAL) Lipid Panel, Standard (12/25/2023 7:08 AM EDT) Triglycerides 232(H) <150 mg/dL [facility] Comment:Desirable Triglyceri de: less than 150 mg/dLBorderline High Triglyceride 150-199 mg/dLHigh Triglyceride: 200-499 mg/dLVery High Triglyceride: greater than or equal to 5OO mg/dL Cholesterol 154 <200 mg/dL [facility] Comment:Desirable Cholestero l: less than 200 mg/dLBorderline High Cholesterol: 200-239 mg/dLHigh Cholesterol: greater than 239 mg/dL LDL Cholesterol Calculated 64 <100 mg/dL [facility] Comment:Desirable LDL: less than 100 mg/dLNear Optimal/Above Optimal LDL: 110- 129 mg/dLBorderline High LDL: 130-159 mg/dLHigh LDL: 160-189 mg/dLVery High LDL: greater than or equal to 190 mg/dL HDL Cholesterol 44 >40 mg/dL [facility] Comment:Desirable HDL: great er than 40 mg/dL Note: This HDL assay may give artificially low results in patients with liver disease. Blood Venous blood specimen / Unknown 12/25/2023 7:08 AM EDT 12/25/2023 7:09 AM EDT us Emy Goldsmith MD LAB BLOOD ORDERAB LES Final Result [facility] [address] [place] [phone] * (ABNORMAL) Albumin, Random Urine W/Creatinine (12/25/2023 7:05 AM EDT) Creatinine, Urine 50.21 mg/dL [facility] Microalbumin Urine 78.0 mg/L [facility] Microalbum Creatinine Ratio Ur 155.3(H) <30 ug/mg cr [facility] Comment:Albumin/Creatinine R atio Reference Ranges: Normal: < 30 ug/mg creatinine Microalbuminuria: 30 - 300 ug/mg creatinineClinical Albuminuria: > 300 ug/mg creatinine Urine (Urine, Random) 12/25/2023 7:05 AM EDT 12/25/2023 7:49 AM EDT Emy Goldsmith MD LAB URINE ORDERAB LES Final Result [facility] [address] [place] [phone] * HPV mRNA E6/E7 w/Reflex to HPV Genotypes 16, 18/45 (05/27/2023 10:50 AM EDT) HPV nRNA E6/E7 Not Detected Not Detected [facility] Comment:Methodology: Transcr iption-Mediated AmplificationThis assay detects E6/E7 viral messenger RNA (mRNA) from 14high-risk HPV types (16,18,31,33,35,39,45,51,52,56,58,59,66,68).Cervical sources are required for HPV testing.If a vaginal source from a patient who has had atotal hysterectomy with removal of cervix wassubmitted, please contact the testing laboratoryfor alternative testing options.For additional information, please refer tohttp://education.Caipiaobao/faq/VDM853a0(This link if provided for information/educational purposes only.)THIS TEST WAS PERFORMED AT:[address] [place] [phone] CAMARENA MD HPV mRNA E6/E7 TNP [facility] HPV 16 RNA TNP [facility] HPV 18/45 RNA [facility] 05/27/2023 10:5 0 AM EDT 05/28/2023 11:50 AM EDT Alden Cai CNM LAB CYTOLOGY ORDERABLES F inal Result [facility] [address] [place] [phone] * Pap Smear (05/27/2023 10:50 AM EDT) Swab Cervix uteri structure / Unknown 05/27/2023 10:50 AM EDT 05/28/2023 11:50 AM EDT Narrative [facility] - 06/09/2023 5:49 PM EDT ----- ------- Name: Jennifer Palmer Age/Sex: 62/F : 1960 Unit#: [id number] Attend Dr: ALDEN CAI CNM Re05/27/23 Status: DEP [facility]ch: ----- ------- SPEC : [id number] RECD: 05/28/23-115 STATUS: CORRIE VELEZ NUM: [id number] PRANAY: 05/27/23-[address]: ALDEN CAI CNM ENTERED: 05/28/23-0995 SP TYPE: Pap Smr OT DR: ORDERED: Pap Smear Interpretation Satisfactory for evaluation. Negative for intraepithelial lesion or malignancy. Atrophic. HPV mRNA E6/E7: NOT DETECTED This assay detects E6/E7 viral messenger RNA (mRNA) from 14 high-risk HPV types (16, 18, 31, 33, 35, 39, 45, 51, 52, 56, 58, 59, 66, 68) HPV testing performed by [employer] [place], [place]. See reference laboratory portion of the EMR for entire report. Clinical Information LMP: Postmenopausal Previous PAP test: Unknown date/findings Material Received ThinPrep-Vaginal/Cervical ----- ------- Signed (signature on file) Esther Ness Nenita 06/09/23 1749 ----- ------- END OF REPORT Alden Cai CNM LAB CYTOLOGY ORDERABLES F inal Result [facility] [address] [place] [phone] * Hm Colonoscopy (05/09/2023 6:56 PM EST) Historical Provider HEALTH MAINTENANCE Final Result * Hepatitis C Antibody Reflex (10/04/2022 9:42 AM EDT) Hepatitis C Antibody Nonreactive Nonreactive [facility] Comment:Antibodies to HCV no t detected; does not exclude early acuteHCV infection. 10/04/2022 9:42 AM EDT 10/04/2022 9:43 AM EDT Emy Goldsmith MD LAB BLOOD ORDERAB LES Final Result [facility] [address] [place] [address] [phone] from Last 3 Months or Most Recently Relevant to Health Maintenance Insurance [facility] CARE HOME OPTIONS (O D-SNP) [facility] MEDICAID STAND ADULT Care Teams Senior Government Program Analyst Relationship Specialty Start Date End Date Emy Askew MD [address] [place] [address] PCP - General Internal Medicine 07/25/22
--- OUTSIDE RECORDS SUMMARY | 2024-12-28 11:19 | XMS_ITS | Encounter Summary ---
Author Organization [employer] Address [address] [place] [address] 7t [place] [address] Care Team Providers Care Affiliate Marketing Manager Name Role Phone [facility] Primary Care Provider [phone] Emy Askew MD Primary Care Pro vider Reason for Visit * Reason Onset Date Comments Appointment Request 06/07/2022 Encounter Details Date Type Department Care Team ([facility] st Contact Info) Description 06/07/2022 Telephone [facility] [address] [place] [address] [facility] [address] [place] [address] Appointment Request Social History Tobacco Use Types [...] with new provider. Please contact pt at [phone] documented in this encounter Plan of Treatment Upcoming Encounters Date Type Department Care Team (Late st Contact Info) Description 02/11/2025 9:30 AM EST Office Visit [facility] [address] [place] [address] Emy Askew MD 230 [place] [address] 03/19/2025 9:30 AM EST Office Visit [facility] [address] [place] [address] Rachel Collado, OD [address] [place] [address] documented as of this encounter Visit Diagnoses Not on filedocumented in this encounter Care Teams Affiliate Marketing Manager Relationship Specialty Start Date End Date Kenya Sol, DIVERSITY INTERN [address] [place] [address] PCP - General Family Medicine 01/22/22 07/24/22 Emy Askew MD [address] [place] [address] PCP - General Internal Medicine 07/25/22 documented as of this encounter
--- OUTSIDE RECORDS SUMMARY | 2024-12-28 11:19 | XMS_ITS | Encounter Summary ---
Author Organization [employer] Address [address] 7[address] [place] [address] Care Team Providers Care Online Marketing Coordinator Name Role Phone Emy Askew MD Primary Care Pro vider Encounter Details Date Type Department Care Team ([facility] st Contact Info) Description 02/23/2024 Orders Only [facility] [address] [place] [address] Provider, MD Waylon Social History Tobacco Use [...] Office Visit [facility] [address] [place] [address] Emy Askew MD 230 [place] [address] 03/19/2025 9:30 AM EST Office Visit [facility] [address] [place] [address] Tobias, Rachel, OD 230 [place] [address] documented as of this encounter Procedures Procedure [...] documented as of this encounter Care Teams Online Marketing Coordinator Relationship Specialty Start Date End Date Emy Askew MD [address] [place] [address] PCP - General Internal Medicine 07/25/22 documented as of this encounter
--- OUTSIDE RECORDS SUMMARY | 2024-12-28 11:19 | XMS_ITS | Clinical Summary ---
Author Organization [facility] Address [address] [place] [address] Phone Care Team Providers Care Operator Ground Based Air Defence Name Role Phone Berkley Bird MD Primary Care Provider [phone] Allergies Active Allergy Reactions Criticality Noted Date [...] DPM LAB BLOOD ORDERABLES Final Result [facility] [address] [place] [address], [place] [phone] from Last 3 Months or Most Recently Relevant to Health Maintenance Insurance [facility] MEDICARE Member Subscriber Plan / Payer (Ef fective 2023-Present) Name:Jennifer Payton Relation to Subscriber:Self Name:Jennifer Palmer Payer ID:[id number] Group ID:[id number] Type:Not on file Address: [place] [address] [address] [address] Care Teams Operator Ground Based Air Defence Relationship Specialty Start Date End Date Berkley Bird MD [address] [address] PCP - General Internal Medicine 02/20/24
--- OUTSIDE RECORDS SUMMARY | 2024-12-28 11:19 | XMS_ITS | Encounter Summary ---
Author Organization [employer] Address [address] [place] [address] 7t [place] [address] Care Team Providers Care Edge Inker Uppers Name Role Phone [facility] Primary Care Provider [phone] Emy Askew MD Primary Care Pro vider Reason for Visit * Reason Onset Date Comments Med Refill 05/11/2022 Encounter Details Date Type Department Care Team (Late st Contact Info) Description 05/11/2022 Telephone [facility] [address] [place] [address] [facility] [address] [place] [address] Med Refill Social History Tobacco Use Types [...] has lost the device. Please sent to [facility] [place], [place] - [address] [place] [address] documented in this encounter Plan of Treatment Upcoming Encounters Date Type Department Care Team ([facility] st Contact Info) Description 02/11/2025 9:30 AM EST Office Visit [facility] [address] [place] [address] Emy Askew MD [address] [place] [address] 03/19/2025 9:30 AM EST Office Visit [facility] [address] [place] [address] Tobias, Archel, OD [address] [place] [address] documented as of this encounter Visit Diagnoses Not on filedocumented in this encounter Care Teams Edge Inker Uppers Relationship Specialty Start Date End Date [place] Kenya, CERTIFIED PROSTHETIST/ORTHOTIST [address] [place] [address] PCP - General Family Medicine 01/22/22 07/24/22 Emy Askew MD [address] [place] [address] PCP - General Internal Medicine 07/25/22 documented as of this encounter
--- OUTSIDE RECORDS SUMMARY | 2024-12-28 11:19 | XMS_ITS | Encounter Summary ---
Author Organization [employer] Address [address] [place] [address] 7 [place] [address] Care Team Providers Care Junior Project Manager Name Role Phone Emy Askew MD Primary Care Pro vider Reason for Visit * Reason Comments Med Refill Encounter Details Date Type Department Care Team ([facility] Contact Info) Description 02/14/2024 Refill [facility] [address] [place] [address] Emy Askew MD [address] [place] [address] Social History Tobacco Use Types Packs/Day Years [...] [facility] [address] [place] [address] Emy Askew MD [address] [place] [address] 03/19/2025 9:30 AM EST Office Visit [facility] [address] [place] [address] Tobias, Rachel, OD [address] [place] [address] documented as of this encounter Visit Diagnoses Not on filedocumented in this encounter Additional Health Concerns Assessment Noted Time PHQ-9 Depression Total Score: 10 024 2:37 PM EDT documented as of this encounter Care Teams Junior Project Manager Relationship Specialty Start Date End Date Emy Askew MD [address] [place] [address] PCP - General Internal Medicine 5/24/23 documented as of this encounter
--- OUTSIDE RECORDS SUMMARY | 2024-12-28 11:19 | XMS_ITS | Encounter Summary ---
Author Organization [employer] Address [address] [place] [address] 7t [place] [address] Care Team Providers Care Dynamic Etching Processor Name Role Phone [facility] Primary Care Provider [phone] Emy Askew MD Primary Care Pro vider Reason for Visit * Reason Onset Date Comments VISION 03/13/2022 Encounter Details Date Type Department Care Team ([facility] st Contact Info) Description 03/13/2022 Telephone [facility] [address] [place] [address] [facility] [address] [place] [address] VISION Social History Tobacco Use Types Packs/Day [...] center regarding an eye exam. Please contact [phone] documented in this encounter Plan of Treatment Upcoming Encounters Date Type Department Care Team (Late st Contact Info) Description 02/11/2025 9:30 AM EST Office Visit [facility] [address] [place] [address] Emy Askew MD [address] [place] [address] 03/19/2025 9:30 AM EST Office Visit [facility] [address] [place] [address] Tobias, Rachel, OD [address] [place] [address] documented as of this encounter Visit Diagnoses Diagnosis Diabetes 1.5, managed as type 2 (HCC) documented in this encounter Care Teams Dynamic Etching Processor Relationship Specialty Start Date End Date [place] FNP [address] [place] [address] PCP - General Family Medicine 01/22/22 07/24/22 Emy Askew MD [address] [place] [address] [phone] PCP - General Internal Medicine 07/25/22 documented as of this encounter
--- OUTSIDE RECORDS SUMMARY | 2024-12-28 11:19 | XMS_ITS | Encounter Summary ---
Author Organization [employer] Address [address] [place] [address] 7 [place] [address] Care Team Providers Care Instructor Business Education Name Role Phone Cyn Bosch MD Primary Care Provider Michelle fledith [facility] Primary Care Provider [phone] Emy Askew MD Primary Care Pro vider Encounter Details Date Type Department Care Team (Latest Contact Info) Description 05/09/2020 Abstract [facility] CONVERSIONS Dental, Provider, DDS Social History [...] Description 02/11/2025 9:30 AM EST Office Visit [facility] [address] [place] [address] Emy Askew MD 230 [place] [address] 03/19/2025 9:30 AM EST Office Visit [facility] [address] [place] [address] Rachel Collado, OD [address] [place] [address] documented as of this encounter Visit Diagnoses Not on filedocumented in this encounter Care Teams Instructor Business Education Relationship Specialty Start Date End Date Cyn Bosch MD PCP - General Family Medicine 08/20/19 01/21/22 [place] FNP [address] [place] [address] PCP - General Family Medicine 01/22/22 07/24/22 Emy Askew MD [address] [place] [address] PCP - General Internal Medicine 07/25/22 documented as of this encounter
--- OUTSIDE RECORDS SUMMARY | 2024-12-28 11:19 | XMS_ITS | Encounter Summary ---
Author Organization [employer] Address [address] [place] [address] 7t [place] [address] Care Team Providers Care Patent Prosecution Attorney Name Role Phone [facility] Primary Care Provider [phone] Emy Askew MD Primary Care Pro vider Encounter Details Date Type Department Care Team (Late st Contact Info) Description 03/26/2022 Orders Only [facility] [address] [place], [place] [phone] Lizett Cannon LPN Social History Tobacco Use [...] Description 02/11/2025 9:30 AM EST Office Visit [facility] [address] [place], [place] [phone] Emy Askew MD 230 [place], [place] [phone] 03/19/2025 9:30 AM EST Office Visit [facility] [address] [place] [address] [phone] Rachel Collado, OD [address] [place], [place] [phone] documented as of this encounter Visit Diagnoses Not on filedocumented in this encounter Care Teams Patent Prosecution Attorney Relationship Specialty Start Date End Date Kenya Sol FNP 230 [place], [place] [phone] PCP - General Family Medicine 01/22/22 07/24/22 Emy Askew MD 230 [place], [place] [phone] PCP - General Internal Medicine 07/25/22 documented as of this encounter
--- OUTSIDE RECORDS SUMMARY | 2024-12-28 11:19 | XMS_ITS | Encounter Summary ---
Author Organization [employer] Address [address] [place] [address] 7 [place] [address] Care Team Providers Care Civil Engineering Intern Name Role Phone Cyn Bosch MD Primary Care Provider Michelle nmedith [facility] Primary Care Provider [phone] Emy Askew MD Primary Care Pro vider Encounter Details Date Type Department Care Team (Latest Contact Info) Description 10/26/2021 Abstract [facility] CONVERSIONS Dental, Provider, DDS Social [...] Description 02/11/2025 9:30 AM EST Office Visit [facility] 230 [place] [address] Emy Askew MD 230 [place] [address] 03/19/2025 9:30 AM EST Office Visit [facility] OPTOM[facility] [address] [place] [address] Rachel Collado, OD [address] [place] [address] documented as of this encounter Visit Diagnoses Not on filedocumented in this encounter Care Teams Civil Engineering Intern Relationship Specialty Start Date End Date Cyn Bosch MD PCP - General Family Medicine 08/20/19 01/21/22 [place] FNP [address] [place] [address] PCP - General Family Medicine 01/22/22 07/24/22 Emy Askew MD [address] [place] [address] PCP - General Internal Medicine 07/25/22 documented as of this encounter
--- OUTSIDE RECORDS SUMMARY | 2024-12-28 11:20 | XMS_ITS | Encounter Summary ---
Author Organization [employer] Address [address] [place] [address] [address] [address] Care Team Providers Care Telecine Operator Name Role Phone Cyn Bosch MD Primary Care Provider Michelle [facility] Primary Care Provider [phone] Emy Askew MD Primary Care Pro vider Encounter Details Date Type Department Care Team (Latest Contact Info) Description 09/30/2018 Abstract [facility] CONVERSIONS Dental, Provider, DDS Social History [...] 02/11/2025 9:30 AM EST Office Visit [facility] MEDICINE [address] [place] [address] Emy Askew MD 230 [place] [address] 03/19/2025 9:30 AM EST Office Visit [facility] OPTOMETRY [address] [place] [address] Rachel Collado, OD [address] [place] [address] documented as of this encounter Visit Diagnoses Not on filedocumented in this encounter Care Teams Telecine Operator Relationship Specialty Start Date End Date Cyn Bosch MD PCP - General Family Medicine 08/20/19 01/21/22 [facility] JULIO CÉSAR Zambrano [address] [place] [address] PCP - General Family Medicine 01/22/22 07/24/22 Emy Askew MD [address] [place] [address] PCP - General Internal Medicine 07/25/22 documented as of this encounter
--- OUTSIDE RECORDS SUMMARY | 2024-12-28 11:20 | XMS_ITS | Encounter Summary ---
Author Organization [facility] Address [address] [facility] [address] [place] [address] Phone Care Team Providers Care General Milling Superintendent Name Role Phone Unknown, Unknown Primary Care Provider Mark Segura MD Primary Care Provider Encounter Details Date Type Department Care Team (Latest Contact Info) Description 05/26/2018 Ancillary Orders [facility] [address] [place] [address] [place] [address] Isidro Watkins, DO [address] [place] [address] Other chest pain Social History Tobacco Use [...] pain documented in this encounter Care Teams General Milling Superintendent Relationship Specialty Start Date End Date Unknown, Unknown, PCP - General 05/15/18 10/14/19 Mark Foote MD [address] [place] [address] PCP - General Pediatrics 10/15/19 documented as of this encounter Additional Source Comments The information contained in this document represents components of the legal health record. It is not the complete legal health record.[facility]
--- OUTSIDE RECORDS SUMMARY | 2024-12-28 11:20 | XMS_ITS | Encounter Summary ---
Author Organization [employer] Address [address] [place] [address] 7 [place] [address] Care Team Providers Care Purchase Request Editor Name Role Phone Emy Askew MD Primary Care Pro vider Reason for Visit * Reason Comments Med Refill Encounter Details Date Type Department Care Team ([facility] st Contact Info) Description 02/09/2023 Refill [facility] MEDICINE [address] [place] [address] Emy Askew MD [address] [place] [address] Social History Tobacco Use Types Packs/Day Years [...] Description 02/11/2025 9:30 AM EST Office Visit [facility] MEDICINE [address] [place] [address] Emy Askew MD 230 [place] [address] 03/19/2025 9:30 AM EST Office Visit [facility] OPTOMETRY [address] [place] [address] Tobias, Rachel, OD [address] [place] [address] documented as of this encounter Visit Diagnoses Not on filedocumented in this encounter Additional Health Concerns Assessment Noted Time PHQ-9 Depression Total Score: 16 023 10:16 AM EDT documented as of this encounter Care Teams Purchase Request Editor Relationship Specialty Start Date End Date Emy Askew MD [address] [place] [address] PCP - General Internal Medicine 07/25/22 documented as of this encounter
== END 2024-12-28 10:35 | disposition home or self-care (01) ==
LOC: HO.ENCR 09:49
PROVIDERS: PCP Student in an Organized Health Care Education/Training Program; Visit Provider Registered Nurse Diabetes Educator
DX: E11.65 Type 2 diabetes mellitus with hyperglycemia (principal)

== ENCOUNTER → 2024-12-28 09:48 | Outpatient (BNVA) | payer OTHER, SELFPAY | PROVIDERS: PCP Student in an Organized Health Care Education/Training Program; Visit Provider Registered Nurse Diabetes Educator | DX: E11.65 Type 2 diabetes mellitus with hyperglycemia (principal) | CPT/HCPCS: 99211 ==

== ENCOUNTER 2025-01-15 04:54 | Emergency (ER) | payer OTHER, SELFPAY ==
[2025-01-15 05:00] VITALS: BP 117/76; PULSE 86; RESP 18; TEMP 36.6; O2SAT 94; BMI 25.6
--- OUTSIDE RECORDS SUMMARY | 2025-01-15 05:11 | XMS_ITS | Encounter Summary ---
Author Organization [employer] Address [address] [place] [address] 7t [place] [address] Care Team Providers Care Ammunition Assembly Laborer Name Role Phone Kenya Sol ADULT PROTECTIVE CASEWORKER Primary Care Provider [phone] Emy Askew MD Primary Care Pro vider Encounter Details Date Type Department Care Team (Late st Contact Info) Description 05/28/2022 Orders Only [facility] CHC MED & PEDS [address] [place], [place] [phone] Candy Miller LPN Social History Tobacco Use [...] Description 02/11/2025 9:30 AM EST Office Visit [facility] MEDICINE [address] [place], [place] [phone] Emy Askew MD 230 [place], [place] [phone] 03/19/2025 9:30 AM EST Office Visit [facility] OPTOMETRY [address] [place], [place] [phone] Rachel Collado OD 230 [place] [address] documented as of this encounter Visit Diagnoses Not on filedocumented in this encounter Care Teams Ammunition Assembly Laborer Relationship Specialty Start Date End Date Kenya Sol FNP [address] [place] [id number] PCP - General Family Medicine 01/22/22 07/24/22 Emy Askew MD [address] [place] [address] [id number] PCP - General Internal Medicine 07/25/22 documented as of this encounter
--- OUTSIDE RECORDS SUMMARY | 2025-01-15 05:11 | XMS_ITS | Encounter Summary ---
Author Organization [employer] Address [address] 7t [place] [address] Care Team Providers Care Vibration Technician Name Role Phone Emy Askew MD Primary Care Pro vider Encounter Details Date Type Department Care Team ([facility] st Contact Info) Description 02/23/2024 Orders Only [facility] MEDICINE [address] [place] [address] Provider, MD Waylon Social History Tobacco Use [...] Description 02/11/2025 9:30 AM EST Office Visit [facility] MEDICINE [address] [place] [address] Emy Askew MD [address] [place] [address] 03/19/2025 9:30 AM EST Office Visit [facility] OPTOMETRY [address] [place] [address] Tobias, Rachel, OD [address] [place] [address] documented as of this encounter Procedures Procedure [...] documented as of this encounter Care Teams Vibration Technician Relationship Specialty Start Date End Date Emy Askew MD [address] [place] [id number] PCP - General Internal Medicine 07/25/22 documented as of this encounter
--- OUTSIDE RECORDS SUMMARY | 2025-01-15 05:11 | XMS_ITS | Encounter Summary ---
Author Organization [employer] Address [address] [place] [address] Care Team Providers Care Control Engineer Name Role Phone Emy Askew MD Primary Care Pro vider Reason for Visit * Reason Onset Date Comments Triage 07/31/2022 Encounter Details Date Type Department Care Team ([facility] st Contact Info) Description 07/31/2022 Telephone [facility] MEDICINE [address] [place] [address] Emy Askew MD [address] [place] [address] Triage Social History Tobacco Use Types Packs/Day [...] Description 02/11/2025 9:30 AM EST Office Visit [facility] MEDICINE [address] [place] [address] Emy Askew MD [address] [place] [address] 03/19/2025 9:30 AM EST Office Visit [facility] OPTOMETRY [address] [place], [place] [phone] Rachel Collado, OD 230 [place] [address] documented as of this encounter Visit Diagnoses Not on filedocumented in this encounter Care Teams Control Engineer Relationship Specialty Start Date End Date Emy Askew MD [address] [place] [address] PCP - General Internal Medicine 07/25/22 documented as of this encounter
--- OUTSIDE RECORDS SUMMARY | 2025-01-15 05:11 | XMS_ITS | Clinical Summary ---
Author Organization Formerly [facility] Address [address] [place] [address] Phone Care Team Providers Care Associate Programmer Name Role Phone Mark Foote MD Primary [...] patient's age to complete this topic IPV VACCINES Aged Out No longer eligi ble based on patient's age to complete this topic MENINGOCOCCAL VACCINES (ACWY) Aged Out No longer eligible based on patient's age to complete this topic MENINGOCOCCAL VACCINES (B) Aged Out N o longer eligible based on patient's age to complete this topic Medical Devices Not on [place] [address] [place] [address] C3 ACO C3 ACO C3 ACO C3 ACO C3 ACO Care Teams Associate Programmer Relationship Specialty Start Date End Date Mark Foote MD [address] [place] [id number] PCP - General Pediatrics 10/15/19 Additional Source Comments The information contained in this document represents components of the legal health record. It is not the complete legal health record.Formerly [facility]
--- OUTSIDE RECORDS SUMMARY | 2025-01-15 05:11 | XMS_ITS | Encounter Summary ---
Author Organization [employer] Address [address] 7t [place] [address] Care Team Providers Care Policy Issue Clerk Name Role Phone Emy Askew MD Primary Care Pro vider Encounter Details Date Type Department Care Team ([facility] st Contact Info) Description 08/07/2023 Orders Only [facility] CHC MED & PEDS [address] [place] [address] Valeria Armas FNP [address] [place] [address] Social History Tobacco Use Types Packs/Day Years [...] 9:30 AM EST Office Visit [facility] MEDICINE [address] [place] [address] Emy Askew MD 230 [place] [address] 03/19/2025 9:30 AM EST Office Visit [facility] OPTOMETRY [address] [place] [address] Tobias, Rachel, OD 230 [place] [address] documented as of this encounter Visit Diagnoses Not on filedocumented in this encounter Additional Health Concerns Assessment Noted Time PHQ-9 Depression Total Score: 16 023 10:16 AM EDT documented as of this encounter Care Teams Policy Issue Clerk Relationship Specialty Start Date End Date Emy Askew MD 230 [place] [address] PCP - General Internal Medicine 07/25/22 documented as of this encounter
--- OUTSIDE RECORDS SUMMARY | 2025-01-15 05:11 | XMS_ITS | Encounter Summary ---
Author Organization [employer] Address [address] [place] [address] 7t [place] [address] Care Team Providers Care Manager Documentation Name Role Phone [facility] Primary Care Provider [phone] Emy Askew MD Primary Care Pro vider Reason for Visit * Reason Onset Date Comments Appointment Request 06/07/2022 Encounter Details Date Type Department Care Team ([facility] st Contact Info) Description 06/07/[address] [facility] MEDICINE [address] [place] [address] [facility] 230 [place] [address] Appointment Request Social History Tobacco Use Types [...] with new provider. Please contact pt at [phone] documented in this encounter Plan of Treatment Upcoming Encounters Date Type Department Care Team (Late st Contact Info) Description 02/11/2025 9:30 AM EST Office [address] [facility] MEDICINE [address] [place] [address] Emy Askew MD 230 [place] [address] 03/19/2025 9:30 AM EST Office Visit [facility] OPTOMETRY [address] [place] [address] Rachel Collado, OD 230 [place] [address] documented as of this encounter Visit Diagnoses Not on filedocumented in this encounter Care Teams Manager Documentation Relationship Specialty Start Date End Date Kenya Sol, FINISH MENDER [address] [place] [address] PCP - General Family Medicine 01/22/22 07/24/22 Emy Askew MD [address] [place] [address] PCP - General Internal Medicine 07/25/22 documented as of this encounter
--- OUTSIDE RECORDS SUMMARY | 2025-01-15 05:11 | XMS_ITS | Encounter Summary ---
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 Hold am of surgery lasix,amytriptiline,lisinopril ??.HoldASA 5 days prior procedure and avoid NSAIDS 7 days prior procedure. Thanks documented in this encounter Plan of Treatment Upcoming Encounters Date Type Department Care Team (Late st Contact Info) Description 02/11/2025 9:30 AM EST Office Visit [facility] MEDICINE [address] [place] [address] Emy Askew MD [address] [place] [address] 03/19/2025 9:30 AM EST Office Visit [facility] OPTOMETRY [address] [place] [address] Rachel Collado, OD [address] [place] [address] documented as of this encounter Visit Diagnoses Not on filedocumented in this encounter Additional Health Concerns Assessment Noted Time PHQ-9 Depression Total Score: 16 023 10:16 AM EDT documented as of this encounter Care Teams Digital Traffic Coordinator Relationship Specialty Start Date End Date Emy Askew MD [address] [place] [id number] PCP - General Internal Medicine 07/25/22 documented as of this encounter
--- NOTE | 2025-01-15 05:12 | ED.GENADULT ---
HPI - General Adult General Chief complaint: General Medical Stated complaint: Back Pain Time Seen by Provider: 01/15/25 05:04 Source: patient Mode of arrival: ambulatory Limitations: no limitations History of Present Illness ED Provider: Dr. Ree Johns HPI narrative: Patient comes to the emergency room complaining of left-sided back pain that radiates towards the left buttocks. Patient denies any injuries. Patient denies urinary symptoms including discomfort, hematuria or dysuria. Patient denies fever chills. Patient states that she took tramadol at home but did not work. Patient denies any urinary/ fecal incontinence /retention. Patient states that the pain gets worse with certain movements. Related Data Home Medications ?Medication ?Instructions ?Recorded ?Confirmed clonidine HCl 0.1 mg tablet 0.1 mg PO BID 12/08/19 12/10/24 diltiazem HCl 360 mg capsule,24 360 mg PO DAILY 12/08/19 12/10/24 hr,extended release furosemide 20 mg tablet 20 mg PO DAILY 12/08/19 12/10/24 aspirin 81 mg tablet,delayed 81 mg PO DAILY 05/12/20 12/10/24 release clonazepam 0.5 mg tablet 0.5 mg PO DAILY PRN Anxiety 10/29/22 12/10/24 leflunomide 20 mg tablet 20 mg PO DAILY 10/29/22 12/10/24 loratadine 10 mg tablet 10 mg PO DAILY PRN allergies 10/29/22 12/10/24 melatonin 5 mg tablet 10 mg PO BEDTIME PRN Insomnia 10/29/22 12/10/24 sennosides 8.6 mg tablet (senna) 17.2 mg PO DAILY PRN constipation 10/29/22 12/10/24 atorvastatin 20 mg tablet 20 mg PO BEDTIME 04/30/23 12/10/24 calcium carbonate 600 mg PO QAM 04/30/23 12/10/24 carvedilol 25 mg tablet 25 mg PO BID 04/30/23 12/10/24 cevimeline 30 mg capsule 1 cap PO QAM 04/30/23 12/10/24 duloxetine 60 mg capsule,delayed 60 mg PO BEDTIME 04/30/23 12/10/24 release folic acid 1 mg tablet 1 mg PO DAILY 04/30/23 12/10/24 gabapentin 300 mg capsule 300 mg PO BID 04/30/23 12/10/24 losartan 100 mg tablet 100 mg PO DAILY 02/10/24 12/10/24 topiramate 25 mg tablet 25 mg PO BEDTIME 09/21/24 12/10/24 docusate sodium 100 mg capsule 100 mg PO DAILY 12/10/24 12/10/24 acetaminophen 500 mg capsule 500 mg PO Q6H PRN 01/08/25 albuterol sulfate 2.5 mg/3 mL 2.5 mg inhalation Q4-6H PRN 01/08/25 (0.083 %) solution for nebulization albuterol sulfate 90 mcg/actuation 2 puff inhalation Q6H PRN 01/08/25 aerosol inhaler (Ventolin HFA) biotin 5 mg tablet 5 mg PO DAILY 01/08/25 bisacodyl 5 mg tablet 5 mg PO BEDTIME 01/08/25 Previous Rx's ?Medication ?Instructions ?Recorded blood glucose control high and low #1 ea 03/28/20 solution (FreeStyle Control solution) 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 meter (FreeStyle #1 ea 09/09/20 Lite Meter kit) blood sugar diagnostic (FreeStyle #150 ea 02/10/21 Lite Strips) lancets 33 gauge (TRUEplus Lancets) #120 ea 06/20/21 naproxen 500 mg tablet 500 mg PO BID PRN pain #14 tabs 07/12/21 cholecalciferol (vitamin D3) 50 50 mcg PO DAILY #90 caps 12/12/21 mcg (2,000 unit) capsule hydrocortisone 2.5 % topical cream 1 appl NE BEDTIME PRN hemorrhoids 01/15/23 with perineal applicator #30 grams (Proctosol HC) semaglutide 2 mg/dose (8 mg/3 mL) 2 mg (0.75 mL) subcut QWEEK #3 mL 06/16/24 subcutaneous pen injector (Ozempic) ondansetron 4 mg disintegrating 4 mg PO Q8H PRN nausea and 06/21/24 tablet vomiting #20 tabs dapagliflozin propanediol 10 mg 10 mg PO DAILY #30 tabs 09/21/24 tablet (Farxiga) 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,tester armature or fields,cont #1 ea 11/24/24 (FreeStyle Anthony 3 [place]omsuba) insulin glargine 100 unit/mL (3 12 unit (0.12 mL) subcut QPM #3 mL 11/24/24 mL) subcutaneous pen (Lantus Solostar U-100 Insulin) insulin lispro 100 unit/mL 5 unit (0.05 mL) subcut DAILY #3 mL 11/24/24 subcutaneous pen (Humalog KwikPen (U-100) Insulin) pen needle, diabetic 31 gauge x #100 ea 11/24/24 3/16 (Comfort EZ Pen [place]) diabetic shoes and insoles #1 ea 11/26/24 cephalexin 500 mg capsule 500 mg PO BID 7 days #14 caps 12/14/24 doxycycline hyclate 100 mg capsule 100 mg PO BID #14 caps 12/14/24 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 sensor (FreeStyle #6 ea 12/21/24 Anthony 3 Plus Sensor device) Allergies Allergy/AdvReac Type Severity Reaction Status Date / Time codeine (Codeine) Allergy Mild BURNING IN Verified 01/15/25 05:02 CHEST, chest pain sulfamethoxazole (From Allergy Mild ITCH,RASH Verified 01/15/25 05:02 Bactrim) Review of Systems Review of Systems: Constitutional : No Weight loss, No Fever, No Chills, No Night Sweats, No Fatigue, No Malaise ENT/Mouth : No Hearing loss, No Ear Pain, No Nasal Congestion, No Sinus Pain, No Hoarseness, No sore throat, No Rhinorrhea, No Swallowing Difficulty Eyes: No Eye Pain, No Swelling, No Redness, No Foreign Body, No Discharge, No Vision Changes Cardiovascular : No Chest Pain, No SOB, No Dyspnea on Exertion, No Orthopnea, No Edema, No Palpitations Respiratory : No Cough, No Sputum, No Wheezing, No Smoke Exposure, No Dyspnea Gastrointestinal : No Nausea, No Vomiting, No Diarrhea, No Constipation, No abdominal Pain, No Hematochezia, No Melena Genitourinary : no irregular bleeding, No Dysuria, No Urinary Frequency, No Hematuria, No Urinary Incontinence, No Urgency, No Flank Pain, No Urinary Flow Changes, No Hesitancy Musculoskeletal : complaining of left-sided back pain radiating towards the left buttocks,No joint pain, No Myalgias, No Joint Swelling Skin : No Skin Lesions, No rash Neuro : No Weakness, No Numbness, No Paresthesias, No Loss of Consciousness, No Dizziness, No Headache Psych : No Anxiety/Panic, No Depression, No SI/HI/AH/VH, No Social Issues, Heme/Lymph: No Bruising, No Bleeding,No Lymphadenopathy Endocrine : No Polyuria, No Polydipsia, No Temperature Intolerance [facility] Past Medical History Medical History Tinea unguium Nail dystrophy Paresthesia of foot, bilateral Greater trochanteric bursitis of left hip Hyperparathyroidism DM2 (diabetes mellitus, type 2) Vitamin D deficiency 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 rheumatoid arthritis group home (current) use of insulin SOY (obstructive sleep apnea) COPD (chronic obstructive pulmonary disease) Sicca syndrome Constipation Alopecia Sjogrens syndrome Osteoarthritis Rheumatoid arthritis Fibromyalgia Back pain Difficulty swallowing GERD (gastroesophageal reflux disease) Depression Asthma Elevated cholesterol HTN (hypertension) Surgical History History of laryngoscopy Hx of hemorrhoidectomy History of bladder suspension procedure Hx of dilation and curettage Hx of tubal ligation History of repair of left rotator cuff Hx of colonoscopy History of esophagogastroduodenoscopy (EGD) Family History Family History Father Cancer Mother Heart disease Diabetes Social History Social History Household Members: Children and Other Household Members Other:: daughter, grandkids Are you a primary transitions rn care coordinator to a significant other at home: No Do you presently have visiting nurse or other home services: No Alcohol intake: never Patient Tobacco Use Status: Never used Tobacco e-Cigarette/Vaping Use: Never Used Second Hand Smoke Exposure: No Advance Directives: No Advance Directives Information Provided: Yes 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al status: disabled 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 Physical Exam ED Exam Exam: Appearance: Alert. Oriented X3. No acute distress. Eyes: Pupils equal, round and reactive to light. ENT: Pharynx normal. Neck: Normal inspection. Neck supple. No lymph nodes noted. No crepitus CVS: Normal heart rate and rhythm. Pulses normal. Normal S1 and S2 Respiratory: No respiratory distress. Breath sounds normal. No Wheezing. No rales Abdomen: Soft and nontender. No rigidity. No distention. back: Pain to palpation over the paraspinal muscles on the left side, no flank pain Skin: Skin warm and dry. Normal skin color. Normal skin turgor. Extremities: No lower extremity edema. No Lacerations. No Rash Neuro: Oriented X 3. No motor deficit. No sensory deficit. Moving all extremities. No slurred speech. CN 2 through 12 grossly intact Psych: calm, cooperative, normal affect Vital Signs: Vital Signs - 24 hr 01/15/25 05:00 Temperature 97.9 F Pulse Rate 86 Respiratory Rate 18 Blood Pressure 117/76 Pulse Oximetry 94 Oxygen Delivery Method Room Air BMI result Body Mass Index 25.6 Course Course Course Narrative: Patient complaining of left-sided back pain around the paraspinal muscles. No recent injury. Patient was given a dose of IM ketorolac and cyclobenzaprine. Urinalysis pending Medications Administered Discontinued Medications Generic Name Dose Route Start Last Admin Trade Name Freq PRN Reason Stop Dose Admin Cyclobenzaprine HCl 10 mg 01/15/25 05:13 01/15/25 05:20 Cyclobenzaprine Hcl 10 Mg Tablet PO 01/15/25 05:14 10 mg ONCE ONE Administration Ketorolac Tromethamine 30 mg 01/15/25 05:13 01/15/25 05:20 Ketorolac Tromethamine 30 Mg/Ml Vial IM 01/15/25 05:14 30 mg ONCE ONE Administration Medical Decision Making Medical Decision Making MDM Narrative: patient physical exam, seems that the patient's pain is mostly musculoskeletal. Has no urinary symptoms. No flank pain. My interpretation of labs: Urinalysis negative for UTI, no blood in the urine. Let it is likely that this is ureterolithiasis. Patient was given IM ketorolac and cyclobenzaprine. I discussed with the patient that the oxygen treatment for this condition is physical therapy. Patient will follow-up with the primary care physician Differential Diagnosis Differential Diagnoses: The differential diagnosis associated with the presentation includes ( musculoskeletal pain, ureterolithiasis, pyelonephritis) Lab Data Labs: Lab Results 01/15/25 Range/Units 05:15 Urine Color Yellow Urine Appearance Clear Urine pH 6.0 (5.0-9.0) Ur Specific Roland >= 1.030 H (1.005-1.025) Urine Protein Negative (Neg-Trace) mg/dL Urine Glucose (UA) >=1000 H (Negative) mg/dL Urine Ketones Negative (Negative) mg/dL Urine Blood Negative (Negative) Urine Nitrite Negative (Negative) Ur Leukocyte Esterase Negative (Negative) Urine RBC 0-2 (0-2) /HPF Urine WBC 0-5 (0-5) /HPF Ur Squamous Epith Cells 0-2 (0-2) /HPF Urine Bacteria None Seen (None Seen) Hyaline Casts 0-2 (0-2) /LPF Discharge Plan Discharge Clinical Impression: Musculoskeletal back pain Patient Disposition: Home, Self-Care Instructions: Back Pain (ED) Additional Instructions: Please follow-up with your primary care physician tomorrow. If you have any worsening or new symptoms, please return to the emergency room or call 911 Prescriptions: No Action (DME) 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 meter [FreeStyle Lite Meter] Kit See Rx Instructions miscellaneous .MEDSUPPLY Qty: 1 0RF Rx Instructions: As directed (DME) FreeStyle Lite Strips Strip See Rx Instructions .ROUTE .MEDSUPPLY Qty: 150 11RF Rx Instructions: 4 times a day (DME) lancets [TRUEplus Lancets] 33 gauge misc See Rx Instructions .ROUTE .MEDSUPPLY Qty: 120 11RF Rx Instructions: 4 times a day cholecalciferol (vitamin D3) 50 mcg (2,000 unit) capsule 50 mcg PO DAILY Qty: 90 0RF (DME) FreeStyle Anthony 3 [place]a Misc See Rx Instructions .ROUTE .MEDSUPPLY Qty: 1 0RF Rx Instructions: As directed (DME) FreeStyle Anthony 3 Plus Sensor Device See Rx Instructions .ROUTE .MEDSUPPLY Qty: 6 5RF Rx Instructions: As directed every 15 days diltiazem HCl 360 mg Capsule,Extended Release 24 Hr 360 mg PO DAILY clonidine HCl 0.1 mg Tablet 0.1 mg PO BID furosemide 20 mg Tablet 20 mg PO DAILY aspirin 81 mg tablet,delayed release (DR/EC) 81 mg PO DAILY naproxen 500 mg tablet 500 mg PO BID PRN (Reason: pain) Qty: 14 0RF ondansetron 4 mg tablet,disintegrating 4 mg PO Q8H PRN (Reason: nausea and vomiting) Qty: 20 0RF docusate sodium 100 mg Capsule 100 mg PO DAILY cephalexin 500 mg capsule 500 mg PO BID 7 Days Qty: 14 0RF doxycycline hyclate 100 mg capsule 100 mg PO BID Qty: 14 0RF (DME) FreeStyle Control Solution See Rx Instructions .ROUTE .MEDSUPPLY Qty: 1 2RF Rx Instructions: Twice a month sennosides [senna] 8.6 mg tablet 17.2 mg PO DAILY PRN (Reason: constipation) melatonin 5 mg tablet 10 mg PO BEDTIME PRN (Reason: Insomnia) clonazepam 0.5 mg tablet 0.5 mg PO DAILY PRN (Reason: Anxiety) leflunomide 20 mg tablet 20 mg PO DAILY loratadine 10 mg tablet 10 mg PO DAILY PRN (Reason: allergies) gabapentin 300 mg capsule 300 mg PO BID duloxetine 60 mg capsule,delayed release(DR/EC) 60 mg PO BEDTIME cevimeline 30 mg capsule 1 cap PO QAM calcium carbonate 600 mg calcium (1,500 mg) tablet 600 mg PO QAM atorvastatin 20 mg tablet 20 mg PO BEDTIME carvedilol 25 mg tablet 25 mg PO BID folic acid 1 mg tablet 1 mg PO DAILY Ozempic 2 mg/dose (8 mg/3 mL) pen injector 2 mg subcut QWEEK Qty: 3 7RF topiramate 25 mg tablet 25 mg PO BEDTIME dapagliflozin propanediol [Farxiga] 10 mg tablet 10 mg PO DAILY Qty: 30 7RF insulin lispro [Humalog KwikPen Insulin] 100 unit/mL insulin pen 5 unit subcut DAILY Qty: 3 3RF Rx Instructions: 5 units of insulin 15 mins before breakfast (DME) pen needle, diabetic [Comfort EZ Pen [place]] 31 gauge x 3/16 needle See Rx Instructions .Route Qty: 100 5RF Rx Instructions: As directed t inject insulin twice daily insulin glargine [Lantus Solostar U-100 Insulin] 100 unit/mL (3 mL) insulin pen 12 unit subcut QPM Qty: 3 3RF (DME) diabetic shoes and insoles See Rx Instructions .Route .MEDSUPPLY Qty: 1 0RF Rx Instructions: As directed hydrocortisone [Proctosol HC] 2.5 % cream with perineal applicator 1 appl NE BEDTIME PRN (Reason: hemorrhoids) Qty: 30 3RF losartan 100 mg tablet 100 mg PO DAILY acetaminophen 500 mg capsule 500 mg PO Q6H PRN albuterol sulfate 2.5 mg /3 mL (0.083 %) solution for nebulization 2.5 mg inhalation Q4-6H PRN albuterol sulfate [Ventolin HFA] 90 mcg/actuation HFA aerosol inhaler 2 puff inhalation Q6H PRN bisacodyl 5 mg tablet 5 mg PO BEDTIME biotin 5 mg tablet 5 mg PO DAILY Print Language: Nauruan
--- OUTSIDE RECORDS SUMMARY | 2025-01-15 05:12 | XMS_ITS | Encounter Summary ---
Author Organization [employer] Address [address] [place] [address] 7 [place] [address] Care Team Providers Care Cage Cashier Name Role Phone Emy Askew MD Primary Care Pro vider Reason for Visit * Reason Comments Med Refill Encounter Details Date Type Department [facility] Description 02/14/2024 Refill [facility] MEDICINE [address] [place] [address] Emy Askew MD [address] [place] [address] Social History Tobacco Use Types Packs/Day Years [...] 9:30 AM EST Office Visit [facility] MEDICINE [address] [place] [address] Emy Askew MD [address] [place] [address] 03/19/2025 9:30 AM EST Office Visit [facility] OPTOMETRY [address] [place] [address] Tobias, Rachel, OD 230 [place] [address] documented as of this encounter Visit Diagnoses Not on filedocumented in this encounter Additional Health Concerns Assessment Noted Time PHQ-9 Depression Total Score: 10 024 2:37 PM EDT documented as of this encounter Care Teams Cage Cashier Relationship Specialty Start Date End Date Emy Askew MD [address] [place] [address] PCP - General Internal Medicine 5/24/23 documented as of this encounter
--- OUTSIDE RECORDS SUMMARY | 2025-01-15 05:12 | XMS_ITS | Clinical Summary ---
Author Organization [employer] Address [address] [place] [address] 7[address] [place] [address] Care Team Providers Care Rigging Up Worker Name Role Phone Emy Askew MD [...] each 12 025 2025 Active Continuous Glucose Civil Preparedness Training Officer (FreeStyle Anthony 3 [place]) deviceIndications :Type 2 diabetes mellitus without complication, unspecified whether terminal carman insulin use 1 each Once per day. Use as directed for CGM 1 each Active Continuous Glucose Sensor (FreeStyle Anthony 3 Plus Sensor) miscIndications:T ype 2 diabetes mellitus without complication, unspecified whether terminal carman insulin use 1 each every 15 days. Use to test blood sugar twice a day 2 each Active glucose blood (FreeStyle Precision Clement Test) test strip Use to test blood sugar twice a day 100 each 025 2025 Active Alcohol Swabs (Alcohol Prep) 70 % padsIndications:T ype 2 diabetes mellitus without complication, unspecified whether terminal carman insulin use USE DIRECTED FIVE TIMES DAILY 100 each Active cevimeline (Evoxac) 30 MG capsule TAKE 1 CAPSULE BY MOUTH THREE TIMES DAILY IN THE MORNING, AT NOON, AND IN THE EVENING 90 capsule 025 Active calcium carbonate 1500 (600 Ca) MG tabletIndications :Benign essential hypertension TAKE 1 TABLET BY MOUTH EVERY MORNING 90 tablet 1 Active Aspirin Low Dose 81 MG EC tablet TAKE 1 TABLET BY MOUTH EVERY MORNING 90 tablet Active loratadine (Claritin) 10 MG tablet TAKE 1 TABLET BY MOUTH EVERY DAY NEEDED FOR ALLERGIES 90 tablet 025 Active losartan (Cozaar) 100 MG tablet TAKE 1 TABLET BY MOUTH EVERY MORNING 90 tablet Active senna (Senokot) 8.6 MG tablet TAKE [...] a week. twice weekly 45 g 5 09/25/2 025 Active potassium chloride (Klor-Con) 20 MEQ packet Take 20 mEq by mouth 2 times daily. Active lidocaine (Lidoderm) 5 % patchIndications: Neck pain Apply 1 patch topically Once per day. Remove & discard patch within 12 hours or as directed by . 60 patch 2 025 Active D3 Super Strength 50 MCG (2000 UT) capsuleIndication s:Vitamin D deficiency, unspecified TAKE 1 CAPSULE BY MOUTH EVERY MORNING 90 capsule 1 025 Active atorvastatin (Lipitor) 20 MG tablet TAKE 1 TABLET BY MOUTH AT BEDTIME 90 tablet 025 Active D3 Super Strength 50 MCG (2000 UT) capsuleIndication s:Vitamin D deficiency, unspecified TAKE 1 CAPSULE BY MOUTH EVERY MORNING 90 capsule 1 025 2024 Discontinued atorvastatin (Lipitor) 20 MG tablet TAKE 1 TABLET BY MOUTH AT BEDTIME 90 tablet 025 2024 Discontinued Active Problems [...] referred by ENT for further eval in [place] but never went -referred again to ENT [...] referred by ENT for further eval in [place] but never went -referred again to ENT [...] Rheumatoid arthritis with po sitive rheumatoid factor (CMS/HCC) 03/07/2022 Assessment & Plan (12/06/2022 6:18 AM EDT): Pt w RA / Sjogren's disease, follows w [employer] - Continue care w specialist -on leflunomide and MTX Assessment & Plan (10/23/2022 5:23 PM EDT): Pt w RA / Sjogren's disease, follows w [employer] - Continue care w specialist -on leflunomide and MTX Assessment & Plan (09/24/2022 8:33 PM EDT): Pt w RA / Sjogren's disease, follows w [employer] - Continue care w specialist 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/HCC) 07/08/2017 Assessment & Plan (12/06/2022 6:18 AM EDT): Pt following w psychiatrist and therapist at [facility]. Denies SI but has thoughts to be better off . - Continue care w specialist - Pt requests information to be able to change to an old age home --already received information -in process per pt Assessment & Plan (10/23/2022 5:23 PM EDT): Pt following w psychiatrist and therapist at [facility]. Denies SI but has thoughts to be better off . - Continue care w specialist - Pt requests information to be able to change to an old age home --already received information -in process per pt Assessment & Plan (09/24/2022 8:32 PM EDT): Pt following w psychiatrist and therapist at [facility]. Denies SI but has thoughts to be better off . - Continue care w specialist - Pt requests information to be able to change to an old age home -- I spoke w director case today and they will come to speak w pt to give info. Was told that there is no need to refer to CM for this. Type 2 diabetes mellitus without complication Assessment & Plan (12/06/2022 6:16 AM EDT): 09/2022 HbA1C 8.2<---8.7, CBG 248., total ch 169, trig 324( in fasting) ,HDL 36,LDL 69, Microalb neg Used to follow w road crossing guard, but lost care. Not on metformin for [...] - to f in 1 y. - Public Address System Mechanic: seen in 11/2022 Assessment & Plan (10/23/2022 5:46 PM EDT): 09/2022 HbA1C 8.2<---8.7, CBG 248., total ch 169, trig 324( in fasting) ,HDL 36,LDL 69, Microalb neg Used to follow w road crossing guard, but lost care. Not on metformin for [...] - to f in 1 y. - Public Address System Mechanic: referred today Assessment & Plan (09/24/2022 8:51 PM EDT): Today HbA1C 8.7, CBG 248. Used to follow w road crossing guard, but lost care. - DM2 labs. - Will consider increasing Trulicity at her next appt. - Pt not currently on Metformin, but used to be in the past. Will check at her next appt, and if she can tolerate it, will resume Rx. - Ophthalmology 07/2022 - to f in 1 y. - Public Address System Mechanic: will refer at next visit. Varicose veins of lower extremity 07/08/2017 Assessment & Plan (10/23/2022 5:12 PM EDT): Pt w lower extremity edema trace from 1+ before , possibly from Cardiazem and venous insufficiency. - Advised to use compression stockings,--started using with noted improved LE edema -I confirmed today w her transportation attendant-Dr Watkins #[phone] that pt does not have CHF and [...] (12/06/2022 6:19 AM EDT): Pt following with [employer]. Pt w consistently dry mouth. From med [...] for unclear reasons. - PT following w transportation attendant actively w on and off chest discomfort. [...] mg in pm - PT following w transportation attendant -will f BP in next 3 to 4 weeks Assessment & Plan (09/24/2022 8:43 PM EDT): BP slightly elevated at 144/94 - Holter 2019 neg. -echocardiogram 2018The left ventricular systolic function is normal. The visually estimated ejection fraction is between 60-65%. -stress test 2019 : nondiagnostic EKG For ischemia. - Will monitor BP manually at next visit. - PT following w transportation attendant Chronic constipation 12/24/2016 Gastroesophageal reflux disease without [...] in 2016 here . I called her transportation attendant today and he reports last EKG was normal as well Biometrics Consultant -Dr Watkins states given QTC < 500 [...] and leflunomide ( if ok wit her [employer])-pt to ask and Cymbalta if taking in am. Hold am of surgery lasix,amytriptiline,lisinopril .Hold ASA 5 days prior procedure and avoid NSAIDS 7 days prior procedure. -will rec to have post op EKG as rec by her transportation attendant for noted prolonged QTC -will rec to [...] Encounters Date Type Department Care Team Description 12/31/2024 Telephone [facility] [address] [place] [address] Emy Askew MD Prior Authorization 12/28/2024 Refill [facility] [address] [place] [address] Emy Askew MD 12/17/2024 Refill [facility] [address] [place] [address] Emy Askew MD Vitamin D deficiency, unspecified 12/15/2024 Orders Only GENERIC EXTERNAL DATA DEPARTMENT Provider, Generic External Data 12/14/2024 Orders Only GENERIC EXTERNAL DATA DEPARTMENT Provider, Generic External Data 11/24/2024 10:45 AM EDT Office Visit [facility] [address] [facility] [place] [address] Emy Askew MD Lesion of tonsil (Primary Dx); Rheumatoid arthritis with positive rheumatoid factor, involving unspecified site (CMS/HCC); Neck pain; Encounter for immunization; Health care maintenance; Sialoadenitis of submandibular gland; Type 2 diabetes mellitus without complication, unspecified whether longterm insulin use (CMS/[facility]); Hypokalemia; Healthcare maintenance; Poor memory; Elevated alkaline phosphatase level; Benign essential hypertension 11/24/2024 Travel 11/24/2024 Orders Only GENERIC EXTERNAL DATA DEPARTMENT Provider, Generic External Data 11/23/2024 Telephone [facility] [address] [place] [address] Emy Askew MD chart prep 11/21/2024 Refill [facility] [address] [place] [address] Emy Askew MD Benign essential hypertension 11/17/2024 Patient Outreach [facility] [address] [place] [phone] Emy Askew MD Pre-visit Planning (LVM ) 10/29/2024 Refill [facility] [address] [place] [address] Lucina Haro MD 10/29/2024 Refill [facility] [address] [place] [address] Emy Askew MD 10/26/2024 Refill [facility] [address] [place] [address] Lucy Main MD Benign essential hypertension 10/19/2024 9:30 AM EDT Clinical Support [facility] [address] [place] [address] Kaylen Mane, RN Hyperlipidemia associated with type 2 diabetes mellitus (CMS/HCC) 10/19/2024 Travel 10/18/2024 Telephone [facility] [address] [place] [phone] Emy Askew MD Med Refill 10/16/2024 Travel from Last 3 Months Immunizations Immunization [...] Description 02/11/2025 9:30 AM EST Office Visit [facility] [address] [place] [address] Emy Askew MD [address] [place] [address] 03/19/2025 9:30 AM EST Office Visit [facility] [address] [place] [address] Rachel Collado, OD [address] [place] [address] Health Maintenance Due Date Last Done Comments CT Colonography 1960 FIT DNA/Cologuard 1960 FIT 1960 FOBT 1960 Sigmoidoscopy 1960 Diabetes: Foot Exam 1968 Alcohol/Substance Use Screening 1970 Dental Oral Exam 04/29/2022 10/26/2021, 10/2020, 04/06/2019, [...] 12/25/2023, 02/0 03/2023, 10/04/2022, Additional history exists Mammogram 03/17/2025 03/17/2024, 11/03, 07/28/2021, Additional history [...] WHOLE BLOOD Routine 11/24/2024 9:04 AM EDT POCT GLYCATED HEMOGLOBIN, TOTAL Routine 09/11/2024 9:28 AM EDT Type 2 diabetes mellitus without complication, unspecified whether terminal carman insulin use ([facility]) BI MAMMOGRAM SCREENING TOMOSYNTHESIS BILATERAL Routine 03/17/2024 1:00 PM EST LIPID PANEL, STANDARD Routine 12/25/2023 7:08 AM EDT Annual physical exam ALBUMIN, RANDOM URINE W/CREATININE Routine 12/25/2023 7:05 AM EDT Annual physical exam BITEWING - SINGLE RADIOGRAPHIC IMAGE Routine 06/10/2023 3:30 PM EDT Periodontal disease Fractured dental protestant with loss of material HPV MRNA E6/E7 [...] 8:01 AM EDT 12/15/2024 9:35 AM EDT [facility] - 12/16/2024 3:57 PM EDT ----- ------- Name: Jennifer Palmer Age/Sex: 64/F : 1960 Unit#: [id number] Attend Dr: Thor Callahan MD Re12/15/24 Status: [facility] Location: HO.SSS Disch: ----- ------- SPEC : [id number] RECD: 12/15/24 STATUS: CORRIE VELEZ NUM: [id number] PRANAY: 12/15/[address]: Thor Callahan MD ENTERED: 12/15/24 SP [...] microscopic examination, multiple pieces in cassette A. ([facility]) IHC S/NG Disclaimer NOTE: Unless otherwise stated, all tissue is formalin-fixed and paraffin-embedded. Some or all of the immunohistochemical tests reported herein may have been developed and their performance characteristics determined by [facility]. They have not been cleared or approved by the U.S. Food and Drug Administration (FDA). However, the FDA has determined that such clearance or approval is not necessary. This laboratory is certified under the Clinical Laboratory Improvement Amendments of 1988 (CLIA) as qualified to perform high complexity clinical laboratory testing. Copies To: Thor Callahan MD [facility] [address] [place] [phone] CONTINUED ON NEXT PAGE ----- ------- Name: Jennifer Palmer Age/Sex: 64/F : 1960 Unit#: [id number] Attend Dr: Thor Callahan MD Re12/15/24 Status: [facility] Location: [facility] Disch: ----- ------- SPEC : [id number] RECD: 12/15/24 STATUS: CORRIE VELEZ NUM: [id number] PRANAY: 12/15/24 [facility] DR: Thor Callahan MD ENTERED: 12/15/24 SP TYPE: Surgical OTHR DR: Emy Askew MD ORDERED: HE Stain/3, Gross Micro L4 Copies To: (Continued) Emy Askew MD [facility] [address] [place] [address] ----- ------- Signed (signature on file) Wesley Jackson MD 12/16/24 [id number] ----- ------- END OF REPORT us Generic External Data Provider LAB BLOOD ORDERAB LES Final Result [facility] [address] [place] [address] [phone] * (ABNORMAL) Glucose, Whole Blood (12/15/2024 6:50 AM EDT) Glucose, Whole Blood 230(H) 60 - 115 mg/dL [facility] Comment:METER #: [id number] 12/15/2024 6:50 AM EDT 12/15/2024 6:57 AM EDT us Generic External Data Provider LAB BLOOD ORDERAB LES Final Result Performing Organization Address City/State/[facility] Co de Phone Number [facility] [address] [place] [phone] * CT Soft Tissue Neck w/ Contrast (12/14/2024 1:19 PM EDT) Anatomical Region Laterality Modality Head, Neck Computed Tomogra phy 12/14/2024 1:19 PM EDT Narrative 12/14/2024 1:21 PM EDT [address] [address] [address] Scan Report Signed Patient: Jennifer Palmer MR#: [id number] 0 : 1960 Acct:[id number] Age/Sex: 64 / F ADM Date: 12/14/24 Loc: HO.ED Attending Dr: Ordering Physician: Gregg Santoro PA-C Date of Service: 12/14/24 Procedure(s): CT soft tissue neck w IV con Accession Number(s): [id number] cc: Gregg Santoro PA-C; Emy Askew MD Report Number: [id number]: Total DLP = 484.00 mGy-cm Reason for [...] 12/14/24 1320 DD/ 1319 TD/TT: 12/14/24 1319 Cask Maker: Procedure Note Donotuseinterpreter, Image - 12/14/[address] [place] [address] [address] Scan Report Signed Patient: Axel Palmer#: [id number] 0 : 9Acct:[id number] Age/Sex: 64 / FADM Date: 12/14/24 Loc: HO.ED Attending Dr: Ordering Physician: Gregg Santoro PA-C Date of Service: 12/14/24 Procedure(s): CT soft tissue neck w IV con Accession Number(s): [id number] cc: Gregg Santoro PA-C; Emy Askew MD Report Number: [id number]: Total DLP = 484.00 mGy-cm Reason for [...] 12/14/24 1320 DD/ 1319 TD/TT: 12/14/24 1319 Cask Maker: [facility] External Provider IMG CT PROCEDURES Edited Result - Final * (ABNORMAL) CBC auto differential (12/14/2024 10:22 AM EDT) White Blood Count 9.5 4.8 - 10.8 X10*3/uL [facility] Red Blood Count 4.92 4.20 - 5.50 X10*6/uL [facility] Hemoglobin 14.4 12.0 - 16.0 g/dl [facility] Hematocrit 44.1 37.0 - 47.0 % [facility] Mean Corpuscular Volume 89.6 80.0 - 98.0 fL [facility] Mean Corpuscular Hemoglobin 29.3 27.0 - 33.0 pg [facility] Mean Corpuscular HGB Conc 32.7 31.0 - 35.0 g/dl [facility] Red Cell Distribution Width 12.9 11.0 - 16.0 % [facility] Platelet Count 253 160 - 400 X10*3/uL [facility] Mean Platelet Volume 10.0 9.4 - 12.3 fL [facility] Neutrophils Percent Auto 60.5 45 - 73 % [facility] Imm Gran Pct Auto 0.8(H) 0.0 - 0.4 % [facility] Lymphocytes Percent Auto 25.3 20 - 40 % [facility] Monocytes Percent Auto 8.5 2 - 11 % [facility] Eosinophils Percent Auto 4.4(H) 0 - 4 % [facility] Basophils Percent Auto 0.5 0 - 2 % [facility] NRBC Pct Auto 0.0 0.0 - 0.2 /100WBC [facility] Neutrophils Absolute Auto 5.7 2.0 - 8.3 x10*3/uL [facility] Imm Gran Abs Auto 0.08(H) 0.00 - 0.03 X10*3/uL [facility] Lymphocytes Absolute Auto 2.4 1.2 - 4.9 X10*3/uL [facility] Monocytes Absolute Auto 0.8 0.1 - 1.2 X10*3/uL [facility] Eosinophils Absolute Auto 0.4 0.0 - 0.4 X10*3/uL [facility] Basophils Absolute Auto 0.1 0.0 - 0.2 X10*3/uL [facility] NRBC Abs Auto 0.000 0.0 - 0.012 X10*3/uL [facility] 12/14/2024 10:2 2 AM EDT 12/14/2024 10:26 AM EDT us Generic External Data Provider LAB BLOOD ORDERAB LES Final Result [facility] [address] [place] [phone] * (ABNORMAL) Comprehensive Metabolic Panel (12/14/2024 10:22 AM EDT) Sodium 142 135 - 145 mmol/L [facility] Potassium 3.8 3.3 - 5.1 mmol/L [facility] Chloride 108 96 - 108 mmol/L [facility] Carbon Dioxide 26 22 - 29 mmol/L [facility] Anion Gap 12 12 - 20 [facility] Urea Nitrogen (BUN) 13 9 - 16 mg/dL [facility] Creatinine, Serum 0.67 0.5 - 1.4 mg/dL [facility] Creatinine Clr Calc Pharmacy 74.6 [facility] Comment:Provided height and weight: 157.48 cm,68.039 kg.eGFR (calculated from the MDRD study equation) and eCrCl(calculated from the Cockcroft-Gault equation) are based ondifferent parameters and may not yield comparable results.If eCrCl result is absurd, please check patient'sheight/weight. Estimated Glomerular Filt Rate >60 [facility] Comment:Chronic Kidney Disea se: Estimated GFR < 60 mL/min/1.70j7Kvteyo Kidney Disease: Estimated GFR < 15 mL/min/1.73m2 Glucose 259(H) 60 - 115 mg/dL [facility] Calcium 9.3 8.4 - 10.2 mg/dL [facility] Bilirubin, Total 0.3 0.0 - 1.0 mg/dL [facility] Aspartate Amino Transferase 20 5 - 31 U/L [facility] Alanine Aminotransferase 16 0 - 31 U/L [facility] Total Protein 7.5 6.5 - 8.0 g/dL [facility] Albumin Level 4.0 3.5 - 5.0 g/dL [facility] Alkaline Phosphatase 129(H) 39 - 117 U/L [facility] 12/14/2024 10:2 2 AM EDT 12/14/2024 10:26 AM EDT us Generic External Data Provider LAB BLOOD ORDERAB LES Final Result Performing Organization Address City/[facility] Co de Phone Number [facility] [address] [place] [phone] * (ABNORMAL) Glucose, Whole Blood (11/24/2024 9:04 AM EDT) Glucose, Whole Blood 326(H) 60 - 115 mg/dL [facility] Comment:METER #: [id number] Testing performed in the Endocrinology Department [address] , [address], [facility]. 11/24/2024 9:04 AM EDT 11/24/2024 9:07 AM EDT us Generic External Data Provider LAB BLOOD ORDERAB LES Final Result [facility] [address] [place] [address] [phone] * (ABNORMAL) POCT HGB A1C (09/11/2024 9:28 AM EDT) Hemoglobin A1C 8.3(A) 4.0 - 5.7 % QC Media Lot # [id number] Lot# Expiration Date Blood 09/11/2024 9:28 AM EDT us Emy Goldsmith MD POINT OF CARE KALEN T ENTER/EDIT ORDERABLES Final Result * BI Mammogram Screening Tomosynthesis Bilateral (03/17/2024 1:00 PM EST) Anatomical Region Laterality Modality Breast Bilateral Mammography 03/17/2024 1:00 PM EST Narrative 03/28/2024 10:52 AM EST [facility] [address] [place] [address] Mammography Report Signed Patient: Jennifer Palmer MR#: [id number] 0 : 1960 Acct:[id number] Age/Sex: 63 / F ADM Date: 03/17/24 Loc: HO.MAMMO Attending Dr: Emy Goldsmith MD Ordering Physician: Emy Askew MD Re sults: 1Negative Date of Service: 03/17/24 Follow Up: 1 Year From Orig inal Mammogram Procedure(s): MM tomosynthesis screening BI Accession Number(s): [id number] cc: Emy Askew MD EXAMINATION: MM SCREENING [...] 03/28/24 1049 DD/ 1300 TD/TT: 03/17/24 1320 Cask Maker: Procedure Note Donotuseinterpreter, Image - 03/28/2024 [facility] [address] [place] [address] Mammography Report Signed Patient: Axel Palmer#: [id number] 0 : 9Acct:[id number] Age/Sex: 63 / FADM Date: 03/17/24 Loc: HO.MAMMO Attending Dr: Emy Goldsmith MD Ordering Physician: Emy Askew sults: 1Negative Date of Service: 03/17/24Follow Up: 1 Year From Orig inal Mammogram Procedure(s): MM tomosynthesis screening BI Accession Number(s): [id number] cc: Emy Askew MD EXAMINATION: MM SCREENING [...] 03/28/24 1049 DD/ 1300 TD/TT: 03/17/24 1320 Cask Maker: us Emy Goldsmith MD IMG BI PROCEDURES Final Result * (ABNORMAL) Lipid Panel, Standard (12/25/2023 7:08 AM EDT) Triglycerides 232(H) <150 mg/dL [facility] Comment:Desirable Triglyceri de: less than 150 mg/dLBorderline High Triglyceride 150-199 mg/dLHigh Triglyceride: 200-499 mg/dLVery High Triglyceride: greater than or equal to 5OO mg/dL Cholesterol 154 <200 mg/dL [facility] Comment:Desirable Cholestero l: less than 200 mg/dLBorderline High Cholesterol: 200-239 mg/dLHigh Cholesterol: greater than 239 mg/dL LDL Cholesterol Calculated 64 <100 mg/dL [facility] Comment:Desirable LDL: less than 100 mg/dLNear Optimal/Above Optimal LDL: 110- 129 mg/dLBorderline High LDL: 130-159 mg/dLHigh LDL: 160-189 mg/dLVery High LDL: greater than or equal to 190 mg/dL HDL Cholesterol 44 >40 mg/dL [facility] Comment:Desirable HDL: great er than 40 mg/dL Note: This HDL assay may give artificially low results in patients with liver disease. Blood Venous blood specimen / Unknown 12/25/2023 7:08 AM EDT 12/25/2023 7:09 AM EDT us Emy Goldsmith MD LAB BLOOD ORDERAB LES Final Result [facility] [address] [place] [address] [phone] * (ABNORMAL) Albumin, Random Urine W/Creatinine (12/25/2023 7:05 AM EDT) Creatinine, Urine 50.21 mg/dL [facility] Microalbumin Urine 78.0 mg/L H [facility] Microalbum Creatinine Ratio Ur 155.3(H) <30 ug/mg cr [facility] Comment:Albumin/Creatinine R atio Reference Ranges: Normal: < 30 ug/mg creatinine Microalbuminuria: 30 - 300 ug/mg creatinineClinical Albuminuria: > 300 ug/mg creatinine Urine (Urine, Random) 12/25/2023 7:05 AM EDT 12/25/2023 7:49 AM EDT Emy Goldsmith MD LAB URINE ORDERAB LES Final Result [facility] [address] [place] [address] [phone] * HPV mRNA E6/E7 w/Reflex to HPV Genotypes 16, 18/45 (05/27/2023 10:50 AM EDT) HPV nRNA E6/E7 Not Detected Not Detected [facility] Comment:Methodology: Transcr iption-Mediated AmplificationThis assay detects E6/E7 viral messenger RNA (mRNA) from 14high-risk HPV types (16,18,31,33,35,39,45,51,52,56,58,59,66,68).Cervical sources are required for HPV testing.If a vaginal source from a patient who has had atotal hysterectomy with removal of cervix wassubmitted, please contact the testing laboratoryfor alternative testing options.For additional information, please refer [email or web address](This link if provided for information/educational purposes only.)THIS TEST WAS PERFORMED AT:[facility] [place] [phone] CAMARENA MD HPV mRNA E6/E7 TNP [facility] HPV 16 RNA TNP [facility] HPV 18/45 RNA TNP [facility] 05/27/2023 10:5 0 AM EDT 05/28/2023 11:50 AM EDT us Alden [facility] CYTOLOGY ORDERABLES F inal Result [facility] [address] [place] [phone] * Pap Smear (05/27/2023 10:50 AM EDT) Swab Cervix uteri structure / Unknown 05/27/2023 10:50 AM EDT 05/28/2023 11:50 AM EDT Narrative [facility] - 06/09/2023 5:49 PM EDT ----- ------- Name: Jennifer Palmer Age/Sex: 62/F : 1960 Unit#: [id number] Attend Dr: ALDEN CAI CNM Re05/27/23 Status: DEP REF Location: [facility] Disch: ----- ------- SPEC : [id number] RECD: 03/ STATUS: CORRIE VELEZ NUM: [id number] PRANAY: 05/27/23-1050 [facility] DR: ALDEN CAI CNM ENTERED: 05/28/232 SP TYPE: Pap Smr OTHR DR: ORDERED: Pap Smear Interpretation Satisfactory for evaluation. Negative for intraepithelial lesion or malignancy. Atrophic. HPV mRNA E6/E7: NOT DETECTED This assay detects E6/E7 viral messenger RNA (mRNA) from 14 high-risk HPV types (16, 18, 31, 33, 35, 39, 45, 51, 52, 56, 58, 59, 66, 68) HPV testing performed by [facility], [place], [place]. See reference laboratory portion of the EMR for entire report. Clinical Information LMP: Postmenopausal Previous PAP test: Unknown date/findings Material Received ThinPrep-Vaginal/Cervical ----- ------- Signed (signature on file) Esther Gutierres 06/09/23 [id number] ----- ------- END OF REPORT Alden Cai CNM LAB CYTOLOGY ORDERABLES F inal Result [facility] [address] [place] [phone] * Hm Colonoscopy (05/09/2023 6:56 PM EST) Historical Provider HEALTH MAINTENANCE Final Result * Hepatitis C Antibody Reflex (10/04/2022 9:42 AM EDT) Hepatitis C Antibody Nonreactive Nonreactive [facility] Comment:Antibodies to HCV no t detected; does not exclude early acuteHCV infection. 10/04/2022 9:42 AM EDT 10/04/2022 9:43 AM EDT Emy Goldsmith MD LAB BLOOD ORDERAB LES Final Result [facility] [address] [place] [address] [phone] from Last 3 Months or Most Recently Relevant to Health Maintenance Insurance [facility] ALF OPTIONS (HMO D-SNP) [facility] MEDICAID STAND ADULT Care Teams Rigging Up Worker Relationship Specialty Start Date End Date Emy Askew MD [address] [place] [address] PCP - General Internal Medicine 07/25/22
--- OUTSIDE RECORDS SUMMARY | 2025-01-15 05:12 | XMS_ITS | Data Portability ---
Author Organization [facility], [facility] Address [address] [place] [phone] Care Team Providers Care Funeral Pre Arrangement Specialist Name Role Phone HIM CCA OTHER Unavailable OTHER Assessment Encounter Date Assessment Date Assessment LastModified by Organization Details LastModified Time 04/13/2024 04/13/2024 As noted, we were called to see this patient regarding concerns of URI symptoms. Evaluation in the field was performed by my working manager colleague, as noted above, I provided real-time [...] 2024 025 [email or web address] [facility], [address] [place] [address], [phone] 02/10/202 5 14:42:18 rapid flu (A+B) 2024 025 [email or web address] [facility], [address] [place] [address], [phone] 5 14:42:21 Referral None recorded. Procedures None [...] Name and Address Organization Details Recorded Time 86718 codeine medicatio n Not available Not available Not available 04/13/2024 2670 Rx[facility] Available [facility] 09:12:08 86060 Bactrim medicatio n Not available Not available Not available 04/13/2024 54966 9 RxNorm Not Available [facility] - production 5 09:12:08 19061 sulfameth oxazole medicatio n Not available Not available Not available 04/13/2024 45715 RxNorm Not Available [facility] 5 09:12:08 69604 trimethop rim medicatio n Not available Not available Not available 04/13/2024 40417 RxNorm Not Available [facility] 09:12:08 [...] Pulse oximetry Body temperature Heart rate Systolic And Diastolic Provider Name and Address Organization Details Last Updated DateTime 5 16 /min 96 % 96 % 98.8 [degF] 81 /min 134/76 mm[Hg] Not Available [facility] - production 5 [...] ICD10 Code Diagnosis IMO Codes Diagnosis Note [id number] Sebastian Vanessa [place] [phone] 04/13/2024 14:39:43 04/13/2024 21:52:34 Viral upper respiratory tract infection 554132503 J06.9 Health Concerns Section Related Observation LastModified by Organization Detai ls LastModified Time None Recorded Concern Status LastModified by Organization Details LastModified Time None Recorded Advance Directives Directive None Recorded Payers Insurance Date Sequence Insurance Name Policy Number Policy Mendez Covered Member ID Mendez Member ID Guarantor Name 04/22/2024 1 FOR[facility]LY [facility] - DOS ON OR AFTER 2022 - DUAL ELIGIBLE - LONGTERM OPTIONS AND ONE CARE (MEDICARE REPLACEMENT/ADV ANTAGE - HMO) Jennifer Gu [id number] Jennifer Gu Notes Date Note Type Note Provider Name and Address Organization Details Recorded Time 04/13/2024 text/html ROS as noted in the HPI HPI: Patient with body aches and cough. No recorded fever but with chills ...................... ...................... ...................... ...................... ...................... ...................... ......... 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 Address: [address] [place] [address], [employer] Consultant: Vinny Delgadillo MD CLIA No.: [id number] Truck Operator POC Test Results from Emanuel Paige - ALS Rapid influenza antigen (14:32:34) Flu: - Rapid COVID antigen (14:32:35) COVID: - ...................... ...................... ...................... ...................... ...................... ...................... ......... Truck Operator Note From Emanuel Paige: Dispatch to the [...] pain, back pain, urinary symptoms. She states she s been able to eat and drink at her baseline. Patient was found opening door, CAOX4, in no obvious distress, breathing non-labored, airway open and patent. Mucus membranes pink and moist, skin PWD with good turgor, lung sounds CTA, A febrile, ABD soft nontender/distended, CVA tenderness, Pupils PERRL, Edema/swelling. Rapid Covid test negative, rapid flu test positive negative. C consulted. Red flags discussed. All times are approximate. ...................... ...................... ...................... ...................... ...................... ...................... ......... [facility] Consulted: Sebastian Vanessa ...................... ...................... ...................... ...................... ...................... ...................... ......... Disposition: Fulfilled Sebastian Vanessa MD [address] [place] [address],[address], [place], [address], [employer] [facility] 04/13/2024 15:34:43 OBGyn Episode No OBEpisode recorded.
--- OUTSIDE RECORDS SUMMARY | 2025-01-15 05:12 | XMS_ITS | Encounter Summary ---
Author Organization [employer] Address [address] [place] [address] 7 [place] [address] Care Team Providers Care Patient Assistant Name Role Phone Cyn Bosch MD Primary Care Provider Michelle njedith [facility] Primary Care Provider [phone] Emy Askew MD Primary Care Pro vider Encounter Details Date Type Department Care Team (Latest Contact Info) Description 10/26/2021 Abstract [facility] CONVERSIONS Dental, Provider, DDS Social History [...] EST Office Visit [facility] MEDICINE [address] [place] [address] Emy Askew MD [address] [place] [address] 03/19/2025 9:30 AM EST Office Visit [facility] OPTOMETRY [address] [place] [address] Rachel Collado, OD 230 [place] [address] documented as of this encounter Visit Diagnoses Not on filedocumented in this encounter Care Teams Patient Assistant Relationship Specialty Start Date End Date Cyn Bosch MD PCP - General Family Medicine 08/20/19 01/21/22 [place] FNP [address] [place] [address] PCP - General Family Medicine 01/22/22 07/24/22 Emy Askew MD [address] [place] [address] PCP - General Internal Medicine 07/25/22 documented as of this encounter
--- OUTSIDE RECORDS SUMMARY | 2025-01-15 05:12 | XMS_ITS | Encounter Summary ---
Author Organization [email or web address] Address [address] [place] [address] 7 [place] [address] Care Team Providers Care Tape Keller Operator Name Role Phone Cyn Bosch MD Primary Care Provider Michelle ncedith [facility] Primary Care Provider [phone] Emy Askew MD Primary Care Pro vider Encounter Details Date Type Department Care Team (Latest Contact Info) Description 05/09/[address] [facility] CONVERSIONS Dental, Provider, DDS Social [...] Description 02/11/2025 9:30 AM EST Office Visit [facility] MEDICINE [address] [place] [address] Emy Askew MD [address] [place] [address] 03/19/2025 9:30 AM EST Office Visit [facility] OPTOMETRY [address] [place] [address] Rachel Collado, OD [address] [place] [address] documented as of this encounter Visit Diagnoses Not on filedocumented in this encounter Care Teams Tape Keller Operator Relationship Specialty Start Date End Date Cyn Bosch MD PCP - General Family Medicine 08/20/19 01/21/22 [place] FNP [address] [place] [address] PCP - General Family Medicine 01/22/22 07/24/22 Emy Askew MD [address] [place] [address] PCP - General Internal Medicine 07/25/22 documented as of this encounter
--- OUTSIDE RECORDS SUMMARY | 2025-01-15 05:12 | XMS_ITS | Encounter Summary ---
Author Organization [employer] Address [address] [place] [address] 7 [place] [address] Care Team Providers Care Distribution Systems Superintendent Name Role Phone Emy Askew MD Primary Care Pro vider Reason for Visit * Reason Comments Med Refill Encounter Details Date Type Department Care Team ([facility] st Contact Info) Description 02/09/2023 Refill [facility] MEDICINE [address] [place] [address] Emy Askew MD [address] [place] [address] Social History Tobacco Use Types Packs/Day Years [...] 02/11/2025 9:30 AM EST Office Visit [facility] MEDICINE [address] [place] [address] Emy Askew MD [address] [place] [address] 03/19/2025 9:30 AM EST Office Visit [facility] OPTOMETRY [address] [place] [address] Tobias, Rachel, OD [address] [place] [address] documented as of this encounter Visit Diagnoses Not on filedocumented in this encounter Additional Health Concerns Assessment Noted Time PHQ-9 Depression Total Score: 16 023 10:16 AM EDT documented as of this encounter Care Teams Distribution Systems Superintendent Relationship Specialty Start Date End Date Emy Askew MD [address] [place] [address] PCP - General Internal Medicine 07/25/22 documented as of this encounter
--- OUTSIDE RECORDS SUMMARY | 2025-01-15 05:12 | XMS_ITS | Encounter Summary ---
Author Organization [employer] Address [address] [place] [address] 7t [place] [address] Care Team Providers Care Automobile Accessories Salesperson Name Role Phone [facility] Primary Care Provider [phone] Emy Askew MD Primary Care Pro vider Reason for Visit * Reason Onset Date Comments VISION 03/13/2022 Encounter Details Date Type Department Care Team ([facility] st Contact Info) Description 03/13/2022 Telephone [facility] MEDICINE [address] [place] [address] [facility] [address] [place] [address] VISION Social History Tobacco Use Types Packs/Day [...] center regarding an eye exam. Please contact [phone] documented in this encounter Plan of Treatment Upcoming Encounters Date Type Department Care Team (Late st Contact Info) Description 02/11/2025 9:30 AM EST Office Visit [facility] MEDICINE [address] [place] [address] Emy Askew MD [address] [place] [address] 03/19/2025 9:30 AM EST Office Visit [facility] OPTOMETRY [address] [place] [address] Tobias, Rachel, OD [address] [place] [address] documented as of this encounter Visit Diagnoses Diagnosis Diabetes 1.5, managed as type 2 (HCC) documented in this encounter Care Teams Automobile Accessories Salesperson Relationship Specialty Start Date End Date [place] FNP [address] [place] [address] PCP - General Family Medicine 01/22/22 07/24/22 mEy Askew MD [address] [place] [address] [phone] PCP - General Internal Medicine 07/25/22 documented as of this encounter
--- OUTSIDE RECORDS SUMMARY | 2025-01-15 05:12 | XMS_ITS | Encounter Summary ---
Author Organization [employer] Address [address] [place] [address] [place] [address] Care Team Providers Care Domestic Maid Name Role Phone Cyn Bosch MD Primary Care Provider Michelle ctedith [facility] Primary Care Provider [phone] Emy Askew MD Primary Care Pro vider Encounter Details Date Type Department Care Team (Latest Contact Info) Description 09/30/2018 Abstract [facility] CONVERSIONS Dental, [...] 02/11/2025 9:30 AM EST Office Visit [facility] MEDICINE [address] [place] [address] Emy Askew MD [address] [place] [address] 03/19/2025 9:30 AM EST Office Visit [facility] OPTOMETRY [address] [place] [address] Rachel Collado, OD [address] [place] [address] documented as of this encounter Visit Diagnoses Not on filedocumented in this encounter Care Teams Domestic Maid Relationship Specialty Start Date End Date Cyn Bosch MD PCP - General Family Medicine 08/20/19 01/21/22 [facility] JULIO CÉSAR Zambrano [address] [place] [address] PCP - General Family Medicine 01/22/22 07/24/22 Emy Askew MD [address] [place] [phone] PCP - General Internal Medicine 07/25/22 documented as of this encounter
--- OUTSIDE RECORDS SUMMARY | 2025-01-15 05:12 | XMS_ITS | Encounter Summary ---
Author Organization [employer] Address [address] [place] [address] 7t [place] [address] Care Team Providers Care Train Operations Manager Name Role Phone [facility] Primary Care Provider [phone] Emy Askew MD Primary Care Pro vider Encounter Details Date Type Department Care Team (Late st Contact Info) Description 03/26/2022 Orders Only [facility] MEDICINE [address] [place], [place] [phone] Lizett Cannon LPN Social History Tobacco Use [...] Description 02/11/2025 9:30 AM EST Office Visit [facility] MEDICINE [address] [place], [place] [phone] Emy Askew MD [address] [place], [place] [phone] 03/19/2025 9:30 AM EST Office Visit [facility] OPTOMETRY [address] [place] [address] [phone] Rachel Collado, OD [address] [place], [place] [phone] documented as of this encounter Visit Diagnoses Not on filedocumented in this encounter Care Teams Train Operations Manager Relationship Specialty Start Date End Date Kenya Sol FNP 230 [place], [place] [phone] PCP - General Family Medicine 01/22/22 07/24/22 Emy Askew MD [address] [place], [place] [phone] PCP - General Internal Medicine 07/25/22 documented as of this encounter
--- OUTSIDE RECORDS SUMMARY | 2025-01-15 05:12 | XMS_ITS | Encounter Summary ---
Author Organization [employer] Address [address] [place] [address] 7t [place] [address] Care Team Providers Care Emerging Solutions Executive Name Role Phone [facility] Primary Care Provider [phone] Emy Askew MD Primary Care Pro vider Reason for Visit * Reason Onset Date Comments Med Refill 05/11/2022 Encounter Details Date Type Department Care Team (Late st Contact Info) Description 05/11/2022 Telephone [facility] MEDICINE [address] [place] [address] [facility] [address] [place] [address] Med Refill Social History Tobacco Use Types [...] has lost the device. Please sent to [facility] [place], [place] - [address] [place] [address] documented in this encounter Plan of Treatment Upcoming Encounters Date Type Department Care Team ([facility] st Contact Info) Description 02/11/2025 9:30 AM EST Office Visit [facility] MEDICINE [address] [place] [address] Emy Askew MD [address] [place] [address] 03/19/2025 9:30 AM EST Office Visit [facility] OPTOMETRY [address] [place] [address] Tobias, Rachel, OD 230 [place] [address] documented as of this encounter Visit Diagnoses Not on filedocumented in this encounter Care Teams Emerging Solutions Executive Relationship Specialty Start Date End Date [place] Kenya, OLIVE GRADER [address] [place] [phone] PCP - General Family Medicine 01/22/22 07/24/22 Emy Askew MD [address] [place] [address] PCP - General Internal Medicine 07/25/22 documented as of this encounter
--- OUTSIDE RECORDS SUMMARY | 2025-01-15 05:12 | XMS_ITS | Encounter Summary ---
Author Organization [facility] Address [address] [facility] [facility] [address] [place] [address] Phone Care Team Providers Care Instructor Correspondence School Name Role Phone Unknown, Unknown Primary Care Provider Mark Segura MD Primary Care Provider Encounter Details Date Type Department Care Team (Latest Contact Info) Description 05/26/2018 Ancillary Orders [facility] [address] [place] [address] [place] [address] Isidro Watkins, DO [address] [place] [address] Other chest pain Social History Tobacco Use [...] pain documented in this encounter Care Teams Instructor Correspondence School Relationship Specialty Start Date End Date Unknown, Unknown, PCP - General 05/15/18 10/14/19 Mark Foote MD [address] [place] [phone] PCP - General Pediatrics 10/15/19 documented as of this encounter Additional Source Comments The information contained in this document represents components of the legal health record. It is not the complete legal health record.[facility]
[2025-01-15 05:21] LABS: Appearance Urine Clear; Glucose Urine UA >=1000 mg/dL (Negative); PH 6.0 (5.0-9.0); Specific Gravity - Urine >= 1.030 (1.005-1.025); UMIC TRIGGER UACC YES
[2025-01-15 05:46] VITALS: BP 117/76; PULSE 86; RESP 18; TEMP 36.6; O2SAT 94
== END 2025-01-15 05:47 | disposition home or self-care (01) ==
PROVIDERS: Emergency Provider Emergency Medicine; PCP Student in an Organized Health Care Education/Training Program
DX: M79.18 Myalgia, other site (principal); M54.9 Dorsalgia, unspecified; Z79.899 Other long term (current) drug therapy
CPT/HCPCS: 81001; 96372; 99283; 99284; J1885

== ENCOUNTER 2025-01-26 09:31 | Outpatient (AMB) | payer OTHER, SELFPAY ==
--- NOTE | 2025-01-26 09:39 | MHC.OFFVIS ---
Vital Signs 01/26/25 10:00 Height 5 ft 2 in Weight 140 lb BMI 25.6 Intake Visit Reasons: routine diabetic nail care Intake Note: Aleksandra is a 64 year old female who presents today for a diabetic nail care follow up. At her last visit she was prescribed diabetic shoes and insoles. She was advised to perform Epsom salt soaks to aid in alleviating her discomfort from her thick and incurvated nails. Patient reports she is still experiencing pain in bilateral hallux and she has no other questions or concerns at this time. Patient glucose is currently at 131. Allergies codeine (Codeine) Allergy (Mild, Verified 01/26/25 10:01) BURNING IN CHEST, chest pain sulfamethoxazole (From Bactrim) Allergy (Mild, Verified 01/26/25 10:01) ITCH,RASH HPI Comments Details: The patient is a 64-year-old individual presenting for follow-up of routine diabetic preventative foot care. Patient states her most recent blood glucose is 131 mg/dL. Patient states she experiences discomfort to the toes when the nails are too long or thickened, worsened to bilateral halluces. She denies any new pedal injuries. She denies any other pedal concerns at this time. 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 SOY (obstructive sleep apnea) COPD (chronic obstructive pulmonary disease) Sicca syndrome Constipation Alopecia Sjogrens syndrome Osteoarthritis Rheumatoid arthritis Fibromyalgia Back pain Difficulty swallowing GERD (gastroesophageal reflux disease) Depression Asthma Elevated cholesterol HTN (hypertension) Surgical History History of laryngoscopy Hx of hemorrhoidectomy History of bladder suspension procedure Hx of dilation and curettage Hx of tubal ligation History of repair of left rotator cuff Hx of colonoscopy History of esophagogastroduodenoscopy (EGD) Family History Father Cancer Mother Heart disease Diabetes Social History Household Members: Children and Other Household Members Other:: daughter, grandkids Are you a primary manager long term care to a significant other at home: No Do you presently have visiting nurse or other home services: No Alcohol intake: never Patient Tobacco Use Status: Never used Tobacco e-Cigarette/Vaping Use: Never Used Second Hand Smoke Exposure: No 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al status: disabled 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 Denies numbness or tingling. - Endocrine: Reports blood sugar level of 131 mg/dL and A1c of 7%. - Dermatological: Reports thickened, elongated, dystrophic toenails x10. All systems reviewed & are unremarkable except as noted in HPI and below Physical Exam Vital Signs: BMI result Body Mass Index 25.6 Extrem Other: Bilateral lower extremity focused physical exam: Derm: Toenails x10 noted to be elongated, thickened, slightly discolored, and dystrophic with incurvation of toenails noted worse to the medial aspects of bilateral hallucal nails. Skin supple and turgor within normal limits. No open lesions abrasions or wounds noted. No clinical signs of infection. No ecchymosis, discoloration, or erythema noted. No interdigital maceration noted. Vascular: DP/PT pulses palpable. Capillary refill time less than 3 seconds. Temperature gradient warm to warm. Pedal hair absent. No varicosities noted. Neuro: Protective sensation is grossly intact to light touch and monofilament testing. Patient reports burning sensation to the plantar aspects of the feet. MSK: Discomfort noted upon palpation to the toenails due to thickness and length. No pain on palpation to the remaining aspects of the feet or ankles bilaterally. Range of motion of the forefoot hindfoot and ankles within normal limits. No crepitus noted. Pes planus foot type noted. Mild hammertoe deformities noted bilaterally. Nonantalgic gait unassisted noted. MMT 5/5. Office Procedures AMB Debridement/Avulsion Podia Details: Debrided toenails x10 using sterile nail nippers and sonny nehemiah Dremel without any incidents. [id number] of Nail 6+ Procedure code (CPT) selection complete Results Reviewed Results Reviewed: Laboratory Tests 12/14/24 12/15/24 10:22 06:50 WBC 9.5 POC Glucose 230 H AST 20 ALT 16 Assessment & Plan Assessment & Plan (1) Nail dystrophy: Code(s): L60.3 - Nail dystrophy Category: Medical (2) Tinea unguium: Code(s): B35.1 - Tinea unguium Category: Medical (3) DM2 (diabetes mellitus, type 2): Code(s): E11.9 - Type 2 diabetes mellitus without complications Category: Medical Qualifiers: Diabetes mellitus middle or intermediate school principal insulin use: without penitentiary use Diabetes mellitus complication status: with neurologic complications Diabetes mellitus complication detail: with polyneuropathy Qualified Code(s): E11.42 - Type 2 diabetes mellitus with diabetic polyneuropathy (4) Paresthesia of foot, bilateral: Code(s): R20.2 - Paresthesia of skin Category: Medical (5) 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 rheumatoid arthritis: Code(s): M05.9 - Rheumatoid arthritis with rheumatoid factor, unspecified Category: Medical (6) Sjogren's syndrome: Code(s): M35.00 - Sjogren syndrome, unspecified Category: Medical Qualifiers: Sjogren's organ involvement: unspecified organ involvement Qualified Code(s): M35.00 - Sicca syndrome, unspecified (7) Nail disorder: Code(s): L60.9 - Nail disorder, unspecified Category: Medical Plan Patient was informed and verbally consented to the use of an ambient scribe for clinic note documentation during this visit. I discussed with the patient the management options for nail fungus, including the use of a topical antifungal swedish and the potential for oral medication, which requires liver function monitoring. - Debrided toenails x10. - Prescribed ciclopirox to be applied to the nails daily with filing of nails in between each application. - Continue monitoring blood sugar levels and adherence to diabetic medication. - Avoid barefoot walking. Monitor feet daily. - Advised patient to wear supportive shoe gear. Patient is to follow-up in 9 weeks for routine diabetic nail care. Orders: Orders AMB Debridement/Avulsion Podiatry 01/26/25 B35.1 - Tinea unguium, E11.42 - Type 2 diabetes mellitus with diabetic polyneuropathy, L60.3 - Nail dystrophy, L60.9 - Nail disorder, unspecified, M05.9 - Rheumatoid arthritis with rheumatoid factor, unspecified, M35.00 - Sjogren syndrome, unspecified, R20.2 - Paresthesia of skin Medications: New ciclopirox 8% 1 appl topical BEDTIME 6.6 mL 1RF 4 weeks B35.1 - Tinea unguium, L60.3 - Nail dystrophy Coding Level of Care Code Est Pt Level 3 (23818) Diagnoses Nail dystrophy L60.3 Tinea unguium B35.1 Type 2 diabetes mellitus with diabetic polyneuropathy, without long-term current use of insulin E11.42 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
[2025-01-26 10:00] VITALS: BMI 25.6
--- OUTSIDE RECORDS SUMMARY | 2025-01-26 10:58 | XMS_ITS | Encounter Summary ---
Author Organization [employer] Address [address] [place] [address] [address] [place] [address] Care Team Providers Care Rehab Trainer Name Role Phone Ebenezer [facility] Primary Care Provider [phone] Emy Askew MD Primary Care Pro vider Encounter Details Date Type Department Care Team (Late st Contact Info) Description 03/26/2022 Orders Only [facility] [address] [place], [place] [phone] Lizett Cannon LPN Social History Tobacco Use [...] Description 02/11/2025 9:30 AM EST Office Visit [facility] [address] [place], [place] [phone] Emy Askew MD [address] [place], [place] [phone] 03/19/2025 9:30 AM EST Office Visit [facility] [address] [place] [address] [phone] Rachel Collado, OD [address] [place], [place] [phone] documented as of this encounter Visit Diagnoses Not on filedocumented in this encounter Care Teams Rehab Trainer Relationship Specialty Start Date End Date Kenya Sol FNP [address] [place], [place] [phone] PCP - General Family Medicine 01/22/22 07/24/22 Emy Askew MD [address] [place], [place] [phone] PCP - General Internal Medicine 07/25/22 documented as of this encounter
--- OUTSIDE RECORDS SUMMARY | 2025-01-26 10:58 | XMS_ITS | Clinical Summary ---
Author Organization [facility] Address [address] [place] [address] Phone Care Team Providers Care Inventory Control Supervisor Name Role Phone Mark Foote MD [...] topic Medical Devices Not on file [place] [address] [place] [address] [employer] Member Subscriber Plan / Payer (Ef fective 2018-Present) Name:Jennifer Palmer Relation to Subscriber:Self Name:Jennifer Palmer Payer ID:[id number] Group ID:Not on file Type:Medicaid Address: [address] [address] [facility] [employer] Member Subscriber Plan / Payer (Ef fective 2018-Present) Name:Jennifer Palmer Relation to Subscriber:Self Name:Jennifer Palmer Payer ID:[id number] Group ID:Not on file Type:Medicaid Address: [address] [address] [employer] Member Subscriber Plan / Payer (Ef fective 2018-Present) Name:Jennifer Palmer Relation to Subscriber:Self Name:Jennifer Palmer Payer ID:[id number] Group ID:Not on file Type:Medicaid Address: [address] [address] [employer] Care Teams Inventory Control Supervisor Relationship Specialty Start Date End Date Mark Foote MD [address] [place] [id number] PCP - General Pediatrics 10/15/19 Additional Source Comments The information contained in this document represents components of the legal health record. It is not the complete legal health record.[facility]
--- OUTSIDE RECORDS SUMMARY | 2025-01-26 10:58 | XMS_ITS | Encounter Summary ---
Author Organization [employer] Address [address] [place] [address] [address] [address] Care Team Providers Care Supervisor Cytology Name Role Phone Cyn Bosch MD Primary Care Provider Michelle wiedith [facility] Primary Care Provider [phone] Emy Askew MD Primary Care Pro vider Encounter Details Date Type Department Care Team (Latest Contact Info) Description 10/26/2021 Abstract [facility] CONVERSION[facility] Dental, Provider, DDS Social History Tobacco [...] Description 02/11/2025 9:30 AM EST Office Visit [facility] [address] [place] [address] Emy Askew MD [address] [place] [address] 03/19/2025 9:30 AM EST Office Visit [facility] [address] [place] [address] Rachel Collado, OD [address] [place] [address] documented as of this encounter Visit Diagnoses Not on filedocumented in this encounter Care Teams Supervisor Cytology Relationship Specialty Start Date End Date Cyn Bosch MD PCP - General Family Medicine 08/20/19 01/21/22 [place] FNP [address] [place] [address] PCP - General Family Medicine 01/22/22 07/24/22 Emy Askew MD [address] [place] [address] PCP - General Internal Medicine 07/25/22 documented as of this encounter
--- OUTSIDE RECORDS SUMMARY | 2025-01-26 10:58 | XMS_ITS | Encounter Summary ---
Author Organization [employer] Address [address] [place] [address] 7[address] [place] [address] Care Team Providers Care Auto Damage Trainee Name Role Phone [facility] Primary Care Provider [phone] Emy Askew MD Primary Care Pro vider Reason for Visit * Reason Onset Date Comments Appointment Request 06/07/2022 Encounter Details Date Type Department Care Team ([facility] st Contact Info) Description 06/07/2022 Telephone [facility] [address] [place] [address] [facility] [address] [place] [address] Appointment Request Social History Tobacco Use Types [...] with new provider. Please contact pt at [phone] documented in this encounter Plan of Treatment Upcoming Encounters Date Type Department Care Team (Late st Contact Info) Description 02/11/2025 9:30 AM EST Office Visit [facility] [address] [place] [address] Emy Askew MD [address] [place] [address] 03/19/2025 9:30 AM EST Office Visit [facility] [address] [place] [address] Rachel Collado, OD [address] [place] [address] documented as of this encounter Visit Diagnoses Not on filedocumented in this encounter Care Teams Auto Damage Trainee Relationship Specialty Start Date End Date Kenya Sol, SWATCHER [address] [place] [address] PCP - General Family Medicine 01/22/22 07/24/22 Emy Askew MD [address] [place] [address] PCP - General Internal Medicine 07/25/22 documented as of this encounter
--- OUTSIDE RECORDS SUMMARY | 2025-01-26 10:58 | XMS_ITS | Data Portability ---
Author Organization [place] [facility], Allergy Address [address] [place] [phone] Assessment No assessment recorded. Plan of Treatment Reminders Order Date Submit Date Provider Last Modified By Organization Details Last Modified Time Details Appointments None recorded. Lab None recorded. Referral None recorded. Procedures None recorded. Surgeries None recorded. Imaging [place], modified barium swallow study 2024 025 [facility] Imaging Dept, [address] [place] [address], [address], 5 11:51:40 Medication Orders None recorded. Patient TargetsNo targets recorded. Patient InstructionsNo instructions recorded. Reason for Referral None Reported. 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 Diseases of the salivary glands: Hypertroph y; CMS Risk: moderate risk CMS Treatment: establishe d problem (to examiner): stable or improved N ote: Date Diagnosed: 12/30/2013 2:35 PM (527.1) Not Available [facility] 4 02:27:37 Chronic sialadeni tis 535909270 Active 2016 Chronic sialoadeni tis; Note: Date Diagnosed: 07/04/2016 2:17 PM (K11.23) Not Available [facility] 4 02:27:48 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]; Note: Date Diagnosed: 07/04/2016 2:17 PM (M35.0) Not Available [facility] 4 02:27:47 Dysphonia 14215596 Active 2017 Hoarseness ; Note: Date Diagnosed: 02/17/2018 9:52 AM (R49.0) Not Available [facility] 4 02:27:44 Dysphagia 54486013 Active 2018 Other dysphagia; Note: Date Diagnosed: 05/13/2018 9:47 AM (R13.19) Not Available [facility] 4 02:27:43 Disturban ce of salivary secretion 53776581 Active 2018 Xerostomia ; Note: Date Diagnosed: 05/13/2018 9:47 AM (K11.7) Not Available [facility] 4 02:27:54 Bilateral hearing loss 26813758 Active 2018 Other specified hearing loss, bilateral; Note: Date Diagnosed: 08/12/2018 10:01 AM (H91.8X3) Not Available [facility] 4 02:27:41 Oropharyn geal dysphagia 24934651 Active 2024 UMESH DIAZ MD [address] [place] [address], [place], [address] , [facility] 5 13:35:47 Problem Notes None recorded. Procedures Surgical History Date Name Laterality Status Provider Name and Address Organization Details Recorded Time 03/13/2024 FFL_RE completed UMESH DIAZ MD [address] [place] [address], [place], [phone], [facility] 03/13/2024 13:36:13 Imaging Results None recorded. Procedure Notes None recorded. Medical Equipment None Reported. Allergies Allergen ID Allergen Name Allergen Category Reaction Reaction Severity Criticality Documentation Date Start Date Code Code System Note Provider Name and Address Organization Details Recorded Time 35052 Bactrim medicatio n other Not available Not available 07/16/2023 04052 9 RxNorm React ion: unkno wn, unspe cifie d;; Not Available [facility] 4 00:55:51 45243 codeine sulfate medicatio n other Not available Not available 07/16/2023 55004 RxNorm React ion: unkno wn, unspe cifie d;; Not Available [facility] 4 00:55:56 Medications Name Sig Start Date Stop Date Status Note LastModified by Organization Details LastModified Time medbox status USE DIRECTED active Not Available Not Available No t Available furosemid e 40 mg tablet TAKE 1 TABLET BY MOUTH EVERY MORNING active Not Available Not Available No t Available Augmentin 875 mg-125 mg tablet 2017 active Medicati on ID: 576200 D uration Value: 5 Prescri bed By [...] nebulizat ion 2018 active Medicati on ID: 693839 D uration Value: 5 Brand Name: albutero [...] mg tablet 2018 active Medicati on ID: 878641 D uration Value: 30 Brand Name: lisinopr [...] mg tablet 2018 active Medicati on ID: 215645 D uration Value: 30 Brand Name: buspiron e Send Method: E-Prescr ibed Sub s Allowed: subs OK Speci al Instruct ion: TAKE 1 TABLET BY MOUTH THREE TIMES DAILY NEEDED ANXIETY Medicati onGeneri cName: buspiron e Not Available Not Available Not Available Tiazac 120 mg capsule,e xtended release 02/04 completed Medicati on ID: 05229 Re ason: () Brand Name: Tiazac S [...] elayed release 2018 active Medicati on ID: 766245 D uration Value: 30 Brand Name: omeprazo le Send Method: E-Prescr ibed Sub s Allowed: subs OK Speci al Instruct ion: TAKE 1 CAPSULE TWICE DAILY IN THE MORNING AND IN THE EVENING 1 HORA AN KALEN DE LAS COMIDAS Medicati onGeneri cName: omeprazo le Not Available Not Available Not Available Aspirin Childrens 81 mg chewable tablet 2013 active Medicati on ID: 20987 Br and Name: Aspirin Children s Send [...] mg tablet 2018 active Medicati on ID: 484738 D uration Value: 30 Brand Name: levon mendes Send Method: E-Prescr ibed Sub s Allowed: subs OK Speci al Instruct ion: TAKE 2 TABLETS BY MOUTH ONCE DAILY IN THE MORNING Medicati onGeneri cName: levon jenkinsqujimmie ne Not Available Not Available Not Available ibuprofen 600 mg tablet 2018 active Medicati on ID: 076944 D uration Value: 30 Brand Name: ibuprofe [...] 24 hr 2018 active Medicati on ID: 008892 D uration Value: 30 Brand Name: metformi n Send Method: E-Prescr ibed Sub s Allowed: subs OK Speci al Instruct ion: TAKE 1 TABLET BY MOUTH TWICE DAILY IN THE MORNING AND IN THE EVENING W ITH FOOD Med icationG enericNa me: metformi n Not Available Not Available Not Available Ambien 5 mg tablet 2013 active Medicati on ID: 70643 Br and Name: Ambien S end Method: [...] mg capsule 2013 active Medicati on ID: 24721 Br and Name: Kade Rivera end Method: [...] inhalatio n 2018 active Medicati on ID: 061051 D uration Value: 30 Brand Name: Breo [...] subcutane ous 2018 active Medicati on ID: 959816 D uration Value: 35 Brand Name: Humulin [...] Updated DateTime 03/13/2024 157.48 cm 26 kg/m2 34602.12 g Shantell Wise [place] [facility] 03/13/2024 13:27:58 Social History None recorded. Functional Status None recorded. Mental Status None recorded. Family History Nothing Reported. Medical History No medical history recorded. Gynecological HistoryNo gynecological history recorded. Obstetrics History GPAL:G 0 P 0 0 0 0 Past Encounters Encounter ID Performer Location Encounter Start Date Encounter Closed Date Diagnosis/Indication Diagnosis SNOMED-CT Code Diagnosis ICD10 Code Diagnosis IMO Codes Diagnosis Note [id number] UMESH DIAZ MD [facility] [address] [place] [address] 03/13/2024 13:18:07 03/13/2024 13:52:50 Oropharyngeal dysphagia 62781098 R13.12 Exam and laryngosco py were normal. I recommend a swallow study (MBS) to reassess her swallow. F/u after. If normal I would suggest GI referral especially given her Sjogrens. Sj gren's syndrome 55863892 M35.00 Encouraged hydration. Will consider GI referral [...] ID Guarantor Name 03/13/2024 1 [facility] - DOS ON OR AFTER 2022 - MEDICARE ADVANTAGE [place] & [place] (MEDICARE REPLACEMENT/AD VANTAGE - PPO) Jennifer Gu [id number] Jennifer Gu Notes Date Note Type Note [...] eyes and dry mouth. UMESH DIAZ MD [address] [place] [address], [phone], [place] [facility] 03/13/2024 13:43:36 OBGyn Episode No OBEpisode recorded.
--- OUTSIDE RECORDS SUMMARY | 2025-01-26 10:58 | XMS_ITS | Encounter Summary ---
Author Organization [employer] Address [address] [place] [address] 7t [place] [address] Care Team Providers Care Soda Drier Feeder Name Role Phone [facility] Primary Care Provider [phone] Emy Askew MD Primary Care Pro vider Reason for Visit * Reason Onset Date Comments Med Refill 05/11/2022 Encounter Details Date Type Department Care Team (Late st Contact Info) Description 05/11/2022 Telephone [facility] [address] [place] [address] [facility] [address] [place] [address] Med Refill Social History Tobacco Use Types [...] has lost the device. Please sent to [facility] - [place], [place] - [address] [place] [address] documented in this encounter Plan of Treatment Upcoming Encounters Date Type Department Care Team ([facility] st Contact Info) Description 02/11/2025 9:30 AM EST Office Visit [facility] [address] [place] [address] Emy Askew MD [address] [place] [address] 03/19/2025 9:30 AM EST Office Visit [facility] OPTOMETRY [address] [place] [address] Tobias, Rachel, OD [address] [place] [address] documented as of this encounter Visit Diagnoses Not on filedocumented in this encounter Care Teams Soda Drier Feeder Relationship Specialty Start Date End Date [place] Kenya, NUB CARD TENDER [address] [place] [address] PCP - General Family Medicine 01/22/22 07/24/22 Emy Askew MD [address] [place] [address] PCP - General Internal Medicine 07/25/22 documented as of this encounter
--- OUTSIDE RECORDS SUMMARY | 2025-01-26 10:58 | XMS_ITS | Encounter Summary ---
Author Organization [employer] Address [address] [place] [address] Care Team Providers Care Rheumatology Specialist Name Role Phone Emy Askew MD Primary Care Pro vider Reason for Visit * Reason Onset Date Comments Triage 07/31/2022 Encounter Details Date Type Department Care Team ([facility] st Contact Info) Description 07/31/2022 Telephone [facility] [address] [place] [address] Emy Askew MD [address] [place] [address] Triage Social History Tobacco Use Types Packs/Day [...] The caller accepted this outcome Patient speaks tamazight. documented in this encounter Plan of Treatment Upcoming Encounters Date Type Department Care Team (Late st Contact Info) Description 02/11/2025 9:30 AM EST Office Visit [facility] [address] [place] [address] Emy Askew MD [address] [place] [address] 03/19/2025 9:30 AM EST Office Visit [facility] OPTOMETRY [address] [place], [place] [phone] Rachel Collado, OD [address] [place] [address] documented as of this encounter Visit Diagnoses Not on filedocumented in this encounter Care Teams Rheumatology Specialist Relationship Specialty Start Date End Date Emy Askew MD [address] [place] [address] PCP - General Internal Medicine 07/25/22 documented as of this encounter
--- OUTSIDE RECORDS SUMMARY | 2025-01-26 10:58 | XMS_ITS | Encounter Summary ---
Author Organization [employer] Address [address] [place] [address] 7 [place] [address] Care Team Providers Care Claims Correspondence Clerk Name Role Phone Emy Askew MD Primary Care Pro vider Reason for Visit * Reason Comments Med Refill Encounter Details Date Type Department Care Team ([facility] Contact Info) Description 02/14/2024 Refill [facility] [address] [place] [address] Emy Askew MD [address] [place] [address] Social History Tobacco Use Types Packs/Day Years [...] 02/11/2025 9:30 AM EST Office Visit [facility] MED[facility] [address] [place] [address] Emy Askew MD [address] [place] [address] 03/19/2025 9:30 AM EST Office Visit [facility] OPTOMETRY [address] [place] [address] Tobias, Rachel, OD [address] [place] [address] documented as of this encounter Visit Diagnoses Not on filedocumented in this encounter Additional Health Concerns Assessment Noted Time PHQ-9 Depression Total Score: 10 024 2:37 PM EDT documented as of this encounter Care Teams Claims Correspondence Clerk Relationship Specialty Start Date End Date Emy Askew MD [address] [place] [address] PCP - General Internal Medicine 5/24/23 documented as of this encounter
--- OUTSIDE RECORDS SUMMARY | 2025-01-26 10:58 | XMS_ITS | Clinical Summary ---
Author Organization [employer] Address [address] [place] [address] 7[address] [place] [address] Care Team Providers Care Paralegal Legal Secretary Name Role Phone Emy Askew MD Primary [...] each 12 025 2025 Active Continuous Glucose Panel Machine Operator (FreeStyle Anthony 3 [place]) deviceIndications :Type 2 diabetes mellitus without complication, unspecified whether terminal operations supervisor insulin use 1 each Once per day. Use as directed for CGM 1 each Active Continuous Glucose Sensor (FreeStyle Anthony 3 Plus Sensor) miscIndications:T ype 2 diabetes mellitus without complication, unspecified whether terminal operations supervisor insulin use 1 each every 15 days. Use to test blood sugar twice a day 2 each Active glucose blood (FreeStyle Precision Clement Test) test strip Use to test blood sugar twice a day 100 each 025 2025 Active Alcohol Swabs (Alcohol Prep) 70 % padsIndications:T ype 2 diabetes mellitus without complication, unspecified whether terminal operations supervisor insulin use USE DIRECTED FIVE TIMES DAILY [...] as directed by . 60 patch 2 01/16/20 25 4:45 PM EST Active D3 Super Strength 50 MCG (1999 [place]) capsuleIndication s:Vitamin D deficiency, unspecified TAKE 1 CAPSULE BY MOUTH EVERY MORNING 90 capsule 1 025 Active atorvastatin (Lipitor) 20 MG tablet TAKE 1 TABLET BY MOUTH AT BEDTIME 90 tablet 025 Active atorvastatin (Lipitor) 20 MG tablet [...] referred by ENT for further eval in [place] but never went -referred again to ENT [...] referred by ENT for further eval in [place] but never went -referred again to ENT [...] Rheumatoid arthritis with po sitive rheumatoid factor ([facility]/HCC) 03/07/2022 Assessment & Plan (12/06/2022 6:18 AM EDT): Pt w RA / Sjogren's disease, follows w extras casting director - Continue care w specialist -on leflunomide and MTX Assessment & Plan (10/23/2022 5:23 PM EDT): Pt w RA / Sjogren's disease, follows w extras casting director - Continue care w specialist -on leflunomide and MTX Assessment & Plan (09/24/2022 8:33 PM EDT): Pt w RA / Sjogren's disease, follows w extras casting director - Continue care w specialist 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 Denies SI but has thoughts to be better off . - Continue care w specialist - Pt requests information to be able to change to an old age home --already received information -in process per pt Assessment & Plan (10/23/2022 5:23 PM EDT): Pt following w psychiatrist and therapist at [facility]. Denies SI but has thoughts to be better off . - Continue care w specialist - Pt requests information to be able to change to an old age home --already received information -in process per pt Assessment & Plan (09/24/2022 8:32 PM EDT): Pt following w psychiatrist and therapist at [facility]. Denies SI but has thoughts to be better off . - Continue care w specialist - Pt requests information to be able to change to an old age home -- I spoke w mattress spring encaser today and they will come to speak w pt to give info. Was told that there is no need to refer to CM for this. Type 2 diabetes mellitus without complication Assessment & Plan (12/06/2022 6:16 AM EDT): 09/2022 HbA1C 8.2<---8.7, CBG 248., total ch 169, trig 324( in fasting) ,HDL 36,LDL 69, Microalb neg Used to follow w barnworker groom, but lost care. Not on metformin for [...] - to f in 1 y. - Stress Analyst: seen in 11/2022 Assessment & Plan (10/23/2022 5:46 PM EDT): 09/2022 HbA1C 8.2<---8.7, CBG 248., total ch 169, trig 324( in fasting) ,HDL 36,LDL 69, Microalb neg Used to follow w barnworker groom, but lost care. Not on metformin for [...] - to f in 1 y. - Stress Analyst: referred today Assessment & Plan (09/24/2022 8:51 PM EDT): Today HbA1C 8.7, CBG 248. Used to follow w barnworker groom, but lost care. - DM2 labs. - Will consider increasing Trulicity at her next appt. - Pt not currently on Metformin, but used to be in the past. Will check at her next appt, and if she can tolerate it, will resume Rx. - Ophthalmology 07/2022 - to f in 1 y. - Stress Analyst: will refer at next visit. Varicose veins of lower extremity 07/08/2017 Assessment & Plan (10/23/2022 5:12 PM EDT): Pt w lower extremity edema trace from 1+ before , possibly from Cardiazem and venous insufficiency. - Advised to use compression stockings,--started using with noted improved LE edema -I confirmed today w her agricultural education professor-Dr Watkins #[phone] that pt does not have CHF and [...] (12/06/2022 6:19 AM EDT): Pt following with extras casting director. Pt w consistently dry mouth. From med [...] for unclear reasons. - PT following w agricultural education professor actively w on and off chest discomfort. [...] mg in pm - PT following w agricultural education professor -will f BP in next 3 to 4 weeks Assessment & Plan (09/24/2022 8:43 PM EDT): BP slightly elevated at 144/94 - Holter 2019 neg. -echocardiogram 2018The left ventricular systolic function is normal. The visually estimated ejection fraction is between 60-65%. -stress test 2019 : nondiagnostic EKG For ischemia. - Will monitor BP manually at next visit. - PT following w agricultural education professor Chronic constipation 12/24/2016 Gastroesophageal reflux disease without [...] in 2016 here . I called her agricultural education professor today and he reports last EKG was normal as well Inside Sales Territory Manager -Dr Watkins states given QTC < [...] and leflunomide ( if ok wit her extras casting director)-pt to ask and Cymbalta if taking in am. Hold am of surgery lasix,amytriptiline,lisinopril .Hold ASA 5 days prior procedure and avoid NSAIDS 7 days prior procedure. -will rec to have post op EKG as rec by her agricultural education professor for noted prolonged QTC -will rec to [...] Encounters Date Type Department Care Team Description 01/15/2025 Orders Only GENERIC EXTERNAL DATA DEPARTMENT Provider, Generic External Data 12/31/2024 Telephone [facility] [address] [place] [address] Emy Askew MD Prior Authorization 12/28/2024 Refill [facility] [address] [place] [address] Emy Askew MD 12/17/2024 Refill [facility] [address] [place] [address] Emy Askew MD Vitamin D deficiency, unspecified 12/15/2024 Orders Only GENERIC EXTERNAL DATA DEPARTMENT Provider, Generic External Data 12/14/2024 Orders Only GENERIC EXTERNAL DATA DEPARTMENT Provider, Generic External Data 11/24/2024 10:45 AM EDT Office Visit [facility] [address] [place] [phone] Emy Askew MD Lesion of tonsil (Primary Dx); Rheumatoid arthritis with positive rheumatoid factor, involving unspecified site ([facility]); Neck pain; Encounter for immunization; Health care maintenance; Sialoadenitis of submandibular gland; Type 2 diabetes mellitus without complication, unspecified whether terminal operations supervisor insulin use ([facility]); Hypokalemia; Healthcare maintenance; Poor memory; Elevated alkaline phosphatase level; Benign essential hypertension 11/24/2024 Travel 11/24/2024 Orders Only GENERIC EXTERNAL DATA DEPARTMENT Provider, Generic External Data 11/23/2024 Telephone [facility] [address] [place] [phone] Emy Askew MD chart prep 11/21/2024 Refill [facility] [address] [place] [phone] Emy Askew MD Benign essential hypertension 11/17/2024 Patient Outreach [facility] [address] [place] [phone] Emy Askew MD Pre-visit Planning (LVM ) 10/29/2024 Refill [facility] [address] [place] [phone] Lucina Haro MD 10/29/2024 Refill [facility] [address] [place] [phone] Emy Askew MD 10/26/2024 Refill [facility] [address] [place] [address] Lucy Main MD Benign essential hypertension from Last 3 [...] Description 02/11/2025 9:30 AM EST Office Visit [facility] [address] [place] [phone] Emy Askew MD [address] [place] [address] 03/19/2025 9:30 AM EST Office Visit [facility] [address] [place], [place] [phone] Rachel Collado, OD [address] [place] [address] Health Maintenance Due Date Last Done Comments [...] Procedure Name Priority Date/Time Associated Diagnosis Comments URINALYSIS, COMPLETE, WITH REFLEX TO CULTURE Routine 01/15/2025 5:15 AM EST HEMATOXYLIN AND EOSIN STAIN Routine 12/15/2024 8:01 [...] mellitus without complication, unspecified whether terminal operations supervisor insulin use ([facility]) BI MAMMOGRAM SCREENING TOMOSYNTHESIS BILATERAL Routine 03/17/2024 1:00 PM EST LIPID PANEL, STANDARD Routine 12/25/2023 7:08 AM EDT Annual physical exam ALBUMIN, RANDOM URINE W/CREATININE Routine 12/25/2023 7:05 AM EDT Annual physical exam BITEWING - SINGLE RADIOGRAPHIC IMAGE Routine 06/10/2023 3:30 PM EDT Periodontal disease Fractured dental alevism with loss of material HPV MRNA E6/E7 [...] Relevant to Health Maintenance Results * (ABNORMAL) Urinalysis, Complete, with Reflex to Culture (01/15/2025 5:15 AM EST) Color Urine Yellow [facility] Appearance Urine Clear [facility] PH 6.0 5.0 - 9.0 [facility] Glucose Urine UA >=1000(A) Negative mg/dL [facility] Urine Blood Negative Negative [facility] Specific [place] - Urine >=1.030(H) 1.005 - 1.025 [facility] Urine Protein Negative Neg-Trace mg/dL [facility] Urine Ketones Negative Negative mg/dL [facility] Nitrite Urine Negative Negative [facility] Leukocyte Esterase Urine Negative Negative [facility] RBC Urine 0-2 0 - 2 /HPF [facility] Urine WBC 0-5 0 - 5 /HPF [facility] Urine Squamous Epithelial Cell 0-2 0 - 2 /HPF [facility] Urine Bacteria None Seen None Seen [facility] Hyaline Casts, Urine 0-2 0 - 2 /LPF [facility] 01/15/2025 5:15 AM EST 01/15/2025 5:18 AM EST [facility] - 01/15/2025 5:29 AM EST [id number], Clean Catch us Generic External Data Provider LAB URINE ORDERAB LES Final Result Performing Organization Address City/State/[facility] Co de Phone Number [facility] [address] [place] [phone] * Hematoxylin and Eosin Stain (12/15/2024 8:01 AM EDT) 12/15/2024 8:01 AM EDT 12/15/2024 9:35 AM EDT [facility] - 12/16/2024 3:57 PM EDT ----- ------- Name: Jennifer Palmer Age/Sex: 64/F : 1960 Unit#: [id number] Attend Dr: Thor Callahan MD Re12/15/24 Status: [facility] Location: [facility] Disch: ----- ------- SPEC : [id number] RECD: 12/15/24 STATUS: CORRIE VELEZ NUM: [id number] PRANAY: 12/15/24 [facility] DR: Thor Callahan MD ENTERED: [...] microscopic examination, multiple pieces in cassette A. ([facility]) IHC S/NG Disclaimer NOTE: Unless otherwise stated, all tissue is formalin-fixed and paraffin-embedded. Some or all of the immunohistochemical tests reported herein may have been developed and their performance characteristics determined by [facility]. They have not been cleared or approved by the U.S. Food and Drug Administration (FDA). However, the FDA has determined that such clearance or approval is not necessary. This laboratory is certified under the Clinical Laboratory Improvement Amendments of 1988 (CLIA) as qualified to perform high complexity clinical laboratory testing. Copies To: Thor Callahan MD [facility] [place] [facility] [address] [place] [address] [phone] CONTINUED ON NEXT PAGE ----- ------- Name: Jennifer Palmer Age/Sex: 64/F : 1960 Unit#: [id number] Attend Dr: Thor Callahan MD Re12/15/24 Status: [facility] [place] Location: [facility] Disch: ----- ------- SPEC : [id number] RECD: 12/15/24 STATUS: CORRIE VELEZ NUM: [id number] PRANAY: 12/15/[address] [facility] [address]: Thor Callahan MD ENTERED: 12/15/24 SP TYPE: Surgical OTHR DR: Emy Askew MD ORDERED: HE Stain/3, Gross Micro L4 Copies To: (Continued) Emy Askew MD [address] [phone] ----- ------- Signed (signature on file) Wesley Jackson MD 12/16/24 1557 ----- ------- END OF REPORT Generic External Data Provider LAB BLOOD ORDERAB LES Final Result Performing Organization Address [facility] Co de Phone Number [facility] [address] [place] [address] [phone] * (ABNORMAL) Glucose, Whole Blood (12/15/2024 6:50 AM EDT) Glucose, Whole Blood 230(H) 60 - 115 mg/dL [facility] Comment:METER #: [id number] 12/15/2024 6:50 AM EDT 12/15/2024 6:57 AM EDT Generic External Data Provider LAB BLOOD ORDERAB LES Final Result Performing Organization Address [facility] Co de Phone Number [facility] [address] [place] [phone] * CT Soft Tissue Neck w/ Contrast (12/14/2024 1:19 PM EDT) Anatomical Region Laterality Modality Head, Neck Computed Tomogra phy 12/14/2024 1:19 PM EDT Narrative 12/14/2024 1:21 PM EDT [address] [address] [address] Scan Report Signed Patient: Jennifer Palmer MR#: [id number] 0 : 1960 Acct:[id number] Age/Sex: 64 / F ADM Date: 12/14/24 Loc: HO.ED Attending Dr: Ordering Physician: Gregg Santoro PA-C Date of Service: 12/14/24 Procedure(s): CT soft tissue neck w IV con Accession Number(s): [id number] cc: Gregg Santoro PA-C; Emy Askew MD Report Number: [id number]: Total DLP = 484.00 mGy-cm Reason for [...] 12/14/24 1320 DD/ 1319 TD/TT: 12/14/24 1319 Bung Driver: Procedure Note Donotuseinterpreter, Image - 12/14/[address] [place] [address] [address] Scan Report Signed Patient: Jennifer PalmerMR#: [id number] 0 : 9Acct:[id number] Age/Sex: 64 / FADM Date: 12/14/24 Loc: HO.ED Attending Dr: Ordering Physician: Gregg Santoro PA-C Date of Service: 12/14/24 Procedure(s): CT soft tissue neck w IV con Accession Number(s): [id number] cc: Gregg Santoro PA-C; Emy Askew MD Report Number: [id number]: Total DLP = 484.00 mGy-cm Reason for [...] 12/14/24 1320 DD/ 1319 TD/TT: 12/14/24 1319 Bung Driver: [facility] External Provider IMG CT PROCEDURES Edited Result - Final * (ABNORMAL) CBC auto differential (12/14/2024 10:22 AM EDT) White Blood Count 9.5 4.8 - 10.8 X10*3/uL [facility] Red Blood Count 4.92 4.20 - 5.50 X10*6/uL [facility] Hemoglobin 14.4 12.0 - 16.0 g/dl [facility] Hematocrit 44.1 37.0 - 47.0 % [facility] Mean Corpuscular Volume 89.6 80.0 - 98.0 fL [facility] Mean Corpuscular Hemoglobin 29.3 27.0 - 33.0 pg [facility] Mean Corpuscular HGB Conc 32.7 31.0 - 35.0 g/dl [facility] Red Cell Distribution Width 12.9 11.0 - 16.0 % [facility] Platelet Count 253 160 - 400 X10*3/uL [facility] Mean Platelet Volume 10.0 9.4 - 12.3 fL [facility] Neutrophils Percent Auto 60.5 45 - 73 % [facility] Imm Gran Pct Auto 0.8(H) 0.0 - 0.4 % [facility] Lymphocytes Percent Auto 25.3 20 - 40 % [facility] Monocytes Percent Auto 8.5 2 - 11 % [facility] Eosinophils Percent Auto 4.4(H) 0 - 4 % [facility] Basophils Percent Auto 0.5 0 - 2 % [facility] NRBC Pct Auto 0.0 0.0 - 0.2 /100WBC [facility] Neutrophils Absolute Auto 5.7 2.0 - 8.3 x10*3/uL [facility] Imm Gran Abs Auto 0.08(H) 0.00 - 0.03 X10*3/uL [facility] Lymphocytes Absolute Auto 2.4 1.2 - 4.9 X10*3/uL [facility] Monocytes Absolute Auto 0.8 0.1 - 1.2 X10*3/uL [facility] Eosinophils Absolute Auto 0.4 0.0 - 0.4 X10*3/uL [facility] Basophils Absolute Auto 0.1 0.0 - 0.2 X10*3/uL [facility] NRBC Abs Auto 0.000 0.0 - 0.012 X10*3/uL [facility] 12/14/2024 10:2 2 AM EDT 12/14/2024 10:26 AM EDT us Generic External Data Provider LAB BLOOD ORDERAB LES Final Result [facility] [address] [place] [phone] * (ABNORMAL) Comprehensive Metabolic Panel (12/14/2024 10:22 AM EDT) Sodium 142 135 - 145 mmol/L [facility] Potassium 3.8 3.3 - 5.1 mmol/L [facility] Chloride 108 96 - 108 mmol/L [facility] Carbon Dioxide 26 22 - 29 mmol/L [facility] Anion Gap 12 12 - 20 [facility] Urea Nitrogen (BUN) 13 9 - 16 mg/dL [facility] Creatinine, Serum 0.67 0.5 - 1.4 mg/dL [facility] Creatinine Clr Calc Pharmacy 74.6 [facility] Comment:Provided height and weight: 157.48 cm,68.039 kg.eGFR (calculated from the MDRD study equation) and eCrCl(calculated from the Cockcroft-Gault equation) are based ondifferent parameters and may not yield comparable results.If eCrCl result is absurd, please check patient'sheight/weight. Estimated Glomerular Filt Rate >60 [facility] Comment:Chronic Kidney Disea se: Estimated GFR < 60 mL/min/1.63c0Tmddgm Kidney Disease: Estimated GFR < 15 mL/min/1.73m2 Glucose 259(H) 60 - 115 mg/dL [facility] Calcium 9.3 8.4 - 10.2 mg/dL [facility] Bilirubin, Total 0.3 0.0 - 1.0 mg/dL [facility] Aspartate Amino Transferase 20 5 - 31 U/L [facility] Alanine Aminotransferase 16 0 - 31 U/L [facility] Total Protein 7.5 6.5 - 8.0 g/dL [facility] Albumin Level 4.0 3.5 - 5.0 g/dL [facility] Alkaline Phosphatase 129(H) 39 - 117 U/L [facility] 12/14/2024 10:2 2 AM EDT 12/14/2024 10:26 AM EDT us Generic External Data Provider LAB BLOOD ORDERAB LES Final Result Performing Organization Address [facility] de Phone Number [facility] [address] [place] [phone] * (ABNORMAL) Glucose, Whole Blood (11/24/2024 9:04 AM EDT) Glucose, Whole Blood 326(H) 60 - 115 mg/dL [facility] Comment:METER #: [id number] Testing performed in the Endocrinology Department [address] , [address], [facility]. 11/24/2024 9:04 AM EDT 11/24/2024 9:07 AM EDT us Generic External Data Provider LAB BLOOD ORDERAB LES Final Result Performing Organization Address [facility] de Phone Number [facility] [address] [place] [phone] * (ABNORMAL) POCT HGB A1C (09/11/2024 9:28 AM EDT) Hemoglobin A1C 8.3(A) 4.0 - 5.7 % QC Media Lot # [id number] Lot# Expiration Date [id number] Blood 09/11/2024 9:28 AM EDT us Emy Goldsmith MD POINT OF CARE KALEN T ENTER/EDIT ORDERABLES Final Result * BI Mammogram Screening Tomosynthesis Bilateral (03/17/2024 1:00 PM EST) Anatomical Region Laterality Modality Breast Bilateral Mammography 03/17/2024 1:00 PM EST Narrative 03/28/2024 10:52 AM EST [address] [place] [address] Mammography Report Signed Patient: Jennifer Palmer MR#: [id number] 0 : 1960 Acct:[id number] Age/Sex: 63 / F ADM Date: 03/17/24 Loc: HO.MAMMO Attending Dr: Emy Goldsmith MD Ordering Physician: Emy Askew MD Re sults: 1Negative Date of Service: 03/17/24 Follow Up: 1 Year From Orig inal Mammogram Procedure(s): MM tomosynthesis screening BI Accession Number(s): [id number] cc: Emy Askew MD EXAMINATION: MM SCREENING [...] 03/28/24 1049 DD/ 1300 TD/TT: 03/17/24 1320 Bung Driver: Procedure Note Donotuseinterpreter, Image - 03/28/[address] [place] [address] Mammography Report Signed Patient: Axel Palmer#: [id number] 0 : 9Acct:[id number] Age/Sex: 63 / FADM Date: 03/17/24 Loc: HO.MAMMO Attending Dr: Emy Goldsmith MD Ordering Physician: Emy Askew sults: 1Negative Date of Service: 03/17/24Follow Up: 1 Year From Orig ina Mammogram Procedure(s): MM tomosynthesis screening BI Accession Number(s): [id number] cc: Emy Askew MD EXAMINATION: MM SCREENING [...] 03/28/24 1049 DD/ 1300 TD/TT: 03/17/24 1320 Bung Driver: us Emy Goldsmith MD IMG BI PROCEDURES Final Result * (ABNORMAL) Lipid Panel, Standard (12/25/2023 7:08 AM EDT) Triglycerides 232(H) <150 mg/dL [facility] Comment:Desirable Triglyceri de: less than 150 mg/dLBorderline High Triglyceride 150-199 mg/dLHigh Triglyceride: 200-499 mg/dLVery High Triglyceride: greater than or equal to 5OO mg/dL Cholesterol 154 <200 mg/dL [facility] Comment:Desirable Cholestero l: less than 200 mg/dLBorderline High Cholesterol: 200-239 mg/dLHigh Cholesterol: greater than 239 mg/dL LDL Cholesterol Calculated 64 <100 mg/dL [facility] Comment:Desirable LDL: less than 100 mg/dLNear Optimal/Above Optimal LDL: 110- 129 mg/dLBorderline High LDL: 130-159 mg/dLHigh LDL: 160-189 mg/dLVery High LDL: greater than or equal to 190 mg/dL HDL Cholesterol 44 >40 mg/dL [facility] Comment:Desirable HDL: great er than 40 mg/dL Note: This HDL assay may give artificially low results in patients with liver disease. Blood Venous blood specimen / Unknown 12/25/2023 7:08 AM EDT 12/25/2023 7:09 AM EDT us Emy Goldsmith MD LAB BLOOD ORDERAB LES Final Result [facility] [address] [place] [phone] * (ABNORMAL) Albumin, Random Urine W/Creatinine (12/25/2023 7:05 AM EDT) Creatinine, Urine 50.21 mg/dL [facility] Microalbumin Urine 78.0 mg/L [facility] Microalbum Creatinine Ratio Ur 155.3(H) <30 ug/mg cr [facility] Comment:Albumin/Creatinine R atio Reference Ranges: Normal: < 30 ug/mg creatinine Microalbuminuria: 30 - 300 ug/mg creatinineClinical Albuminuria: > 300 ug/mg creatinine Urine (Urine, Random) 12/25/2023 7:05 AM EDT 12/25/2023 7:49 AM EDT us Emy Goldsmith MD LAB URINE ORDERAB LES Final Result [facility] [address] [place] [phone] * HPV mRNA E6/E7 w/Reflex to HPV Genotypes 16, 18/45 (05/27/2023 10:50 AM EDT) HPV nRNA E6/E7 Not Detected Not Detected [facility] Comment:Methodology: Transcr iption-Mediated AmplificationThis assay detects E6/E7 viral messenger RNA (mRNA) from 14high-risk HPV types (16,18,31,33,35,39,45,51,52,56,58,59,66,68).Cervical sources are required for HPV testing.If a vaginal source from a patient who has had atotal hysterectomy with removal of cervix wassubmitted, please contact the testing laboratoryfor alternative testing options.For additional information, please refer [email or web address]/faq/[email or web address](This link if provided for information/educational purposes only.)THIS TEST WAS PERFORMED AT:[employer] [place] [phone] CAMARENA MD HPV mRNA E6/E7 [facility] HPV 16 RNA [facility] HPV 18/45 RNA [facility] 05/27/2023 10:5 0 AM EDT 05/28/2023 11:50 AM EDT us Alden Cai CNM LAB CYTOLOGY ORDERABLES F inal Result [facility] [address] [place] [address] [phone] * Pap Smear (05/27/2023 10:50 AM EDT) Swab Cervix uteri structure / Unknown 05/27/2023 10:50 AM EDT 05/28/2023 11:50 AM EDT [place] [facility] LABS - 06/09/2023 5:49 PM EDT ----- ------- Name: Jennifer Palmer Age/Sex: 62/F : 1960 Unit#: [id number] Attend Dr: ALDEN CAI CNM Re05/27/23 Status: DEP [facility] ----- ------- SPEC : [id number] RECD: 05/28/23-1150 STATUS: KATHYNoni ROSIE NUM: [id number] PRANAY: 05/27/23-[address] [facility] [address]: ALDEN CAI CNM ENTERED: 05/28/23-1305 SP TYPE: Pap Smr OT DR: ORDERED: Pap Smear Interpretation Satisfactory for evaluation. Negative for intraepithelial lesion or malignancy. Atrophic. HPV mRNA E6/E7: NOT DETECTED This assay detects E6/E7 viral messenger RNA (mRNA) from 14 high-risk HPV types (16, 18, 31, 33, 35, 39, 45, 51, 52, 56, 58, 59, 66, 68) HPV testing performed by [facility], [place], [place]. See reference laboratory portion of the EMR for entire report. Clinical Information LMP: Postmenopausal Previous PAP test: Unknown date/findings Material Received ThinPrep-Vaginal/Cervical ----- ------- Signed (signature on file) Esther Gutierres 06/09/23 1749 ----- ------- END OF REPORT Alden [facility] CYTOLOGY ORDERABLES F inal Result Performing Organization Address [facility] de Phone Number [facility] [address] [place] [address] [phone] * Hm Colonoscopy (05/09/2023 6:56 PM EST) Historical Provider HEALTH MAINTENANCE Final Result * Hepatitis C Antibody Reflex (10/04/2022 9:42 AM EDT) Pathologist [facility] Hepatitis C Antibody Nonreactive Nonreactive [facility] Comment:Antibodies to HCV no t detected; does not exclude early acuteHCV infection. 10/04/2022 9:4 2 AM EDT 10/04/2022 9:43 AM EDT Emy Goldsmith MD LAB BLOOD ORDERAB LES Final Result Performing Organization Address [facility] de Phone Number [facility] [address] [place] [address] [phone] from Last 3 Months or Most Recently Relevant to Health Maintenance Insurance [facility] SENIOR LIVING OPTIONS (HMO D-SNP) [facility] MEDICAID STAND ADULT Care Teams Paralegal Legal Secretary Relationship Specialty Start Date End Date Emy Askew MD [address] [place] [address] PCP - General Internal Medicine 07/25/22
--- OUTSIDE RECORDS SUMMARY | 2025-01-26 10:58 | XMS_ITS | Encounter Summary ---
Author Organization [employer] Address [address] 7[address] [place] [address] Care Team Providers Care Vocational Training Teacher Name Role Phone Emy Askew MD Primary Care Pro vider Encounter Details Date Type Department Care Team ([facility] st Contact Info) Description 02/23/2024 Orders Only [facility] MEDICINE [address] [place] [address] Provider, MD Way[place] Social History Tobacco Use [...] Visit [facility] MEDICINE [address] [place] [address] Emy Askew MD [address] [place] [address] 03/19/2025 9:30 AM EST Office Visit [facility] OPTOMETRY [address] [place] [address] Tobias, Rachel, OD [address] [place] [address] documented as of this encounter Procedures Procedure [...] documented as of this encounter Care Teams Vocational Training Teacher Relationship Specialty Start Date End Date Emy Askew MD [address] [place] [address] PCP - General Internal Medicine 07/25/22 documented as of this encounter
--- OUTSIDE RECORDS SUMMARY | 2025-01-26 10:58 | XMS_ITS | Clinical Summary ---
Author Organization [address] [facility] Address [address] [place] [address] Phone Care Team Providers Care English Language Learner Tutor Name Role Phone Berkley Bird MD Primary [...] mmol/L LAB CHEMISTRY METHOD 04/06/2024 6:42 PM [facility] Potassium 3.5 3.5 - 5.5 mmol/L LAB CHEMISTRY METHOD 04/06/2024 6:42 PM [facility] Chloride 102 96 - 110 mmol/L LAB CHEMISTRY METHOD 04/06/2024 6:42 PM [facility] CO2 31 21 - 32 mmol/L LAB CHEMISTRY METHOD 04/06/2024 6:42 PM [facility] Anion Gap 5 3 - 11 LAB CHEMISTRY METHOD 04/06/2024 6:42 PM [facility] Glucose 183(H) 70 - 100 mg/dL LAB CHEMISTRY METHOD 04/06/2024 6:42 PM [facility] BUN 17 5 - 25 mg/dL LAB CHEMISTRY METHOD 04/06/2024 6:42 PM [facility] Creatinine 0.94 0.50 - 1.10 mg/dL LAB CHEMISTRY METHOD 04/06/2024 6:42 PM [facility] LAB eGFR 67 >=60 mL/min/1. 73m2 LAB CHEMISTRY METHOD 04/06/2024 6:42 PM [facility] Comment:Calculation based on the Chronic Kidney Disease Epidemiology Collaboration (CKD-EPI) equation refit without adjustment for race. BUN/Creatinine Ratio 18.1 LAB CHEMISTRY METHOD 04/06/2024 6:42 PM [facility] Calcium 10.3 8.5 - 10.5 mg/dL LAB CHEMISTRY METHOD 04/06/2024 6:42 PM [facility] AST (SGOT) 15 10 - 42 unit/L LAB CHEMISTRY METHOD 04/06/2024 6:42 PM [facility] ALT (SGPT) 22 10 - 60 unit/L LAB CHEMISTRY METHOD 04/06/2024 6:42 PM [facility] Alkaline Phosphatase 140(H) 42 - 121 unit/L LAB CHEMISTRY METHOD 04/06/2024 6:42 PM [facility] Total Protein 7.6 6.0 - 8.0 g/dL LAB CHEMISTRY METHOD 04/06/2024 6:42 PM [facility] Albumin 3.6 3.2 - 5.0 g/dL LAB CHEMISTRY METHOD 04/06/2024 6:42 PM [facility] Total Bilirubin 0.3 0.0 - 1.4 mg/dL LAB CHEMISTRY METHOD 04/06/2024 6:42 PM [facility] Blood Venous blood specimen / Unknown Venipuncture / Unknown 04/06/2024 2:00 PM EST 04/06/2024 2:00 PM EST us Magen Velasco DPM LAB BLOOD ORDERABLES Final Result [facility] [address] [place] [address], [place] [phone] from Last 3 Months or Most Recently Relevant to Health Maintenance Insurance [facility] MEDICARE Member Subscriber Plan / Payer (Ef fective 2023-Present) Name:Jennifer Payton Relation to Subscriber:Self Name:Jennifer Palmer Payer ID:[id number] Group ID:[id number] Type:Not on file Address: [place] [address] [address] [address] Care Teams English Language Learner Tutor Relationship Specialty Start Date End Date Berkley Bird MD [address] [address] PCP - General Internal Medicine 02/20/24
--- OUTSIDE RECORDS SUMMARY | 2025-01-26 10:58 | XMS_ITS | Encounter Summary ---
Author Organization [employer] Address [address] [place] [address] 7t [place] [address] Care Team Providers Care Store Operations Associate Name Role Phone Kenya Sol LABORER CONCRETE PAVING Primary Care Provider [phone] Emy Askew MD Primary Care Pro vider Encounter Details Date Type Department Care Team (Late st Contact Info) Description 05/28/2022 Orders Only [facility] CHC MED & PEDS [address] [place], [place] [phone] Candy Miller LPN Social History Tobacco Use [...] Description 02/11/2025 9:30 AM EST Office Visit [facility] MEDICINE [address] [place], [place] [phone] Emy Askew MD 230 [place], [place] [phone] 03/19/2025 9:30 AM EST Office Visit [facility] OPTOMETRY [address] [place], [place] [phone] Rachel Collado OD 230 [place] [address] documented as of this encounter Visit Diagnoses Not on filedocumented in this encounter Care Teams Store Operations Associate Relationship Specialty Start Date End Date Kenya Sol FNP [address] [place] [address] PCP - General Family Medicine 01/22/22 07/24/22 Emy Askew MD [address] [place] [address] [phone] PCP - General Internal Medicine 07/25/22 documented as of this encounter
--- OUTSIDE RECORDS SUMMARY | 2025-01-26 10:58 | XMS_ITS | Encounter Summary ---
Author Organization [employer] Address [address] 7[address] [place] [address] Care Team Providers Care Cable Tester Name Role Phone Emy Askew MD Primary Care Pro vider Encounter Details Date Type Department Care Team ([facility] st Contact Info) Description 08/07/2023 Orders Only [facility] CHC MED & PEDS [address] [place] [address] Valeria Armas FNP [address] [place] [address] Social History Tobacco Use Types Packs/Day Years [...] 9:30 AM EST Office Visit [facility] MEDICINE [address] [place] [address] Emy Askew MD 230 [place] [address] 03/19/2025 9:30 AM EST Office Visit [facility] OPTOMETRY [address] [place] [address] Tobias, Rachel, OD [address] [place] [address] documented as of this encounter Visit Diagnoses Not on filedocumented in this encounter Additional Health Concerns Assessment Noted Time PHQ-9 Depression Total Score: 16 023 10:16 AM EDT documented as of this encounter Care Teams Cable Tester Relationship Specialty Start Date End Date Emy Askew MD [address] [place] [address] PCP - General Internal Medicine 07/25/22 documented as of this encounter
--- OUTSIDE RECORDS SUMMARY | 2025-01-26 10:58 | XMS_ITS | Encounter Summary ---
Author Organization [employer] Address [address] [place] [address] 7 [place] [address] Care Team Providers Care Descriptive Catalog Librarian Name Role Phone Cyn Bosch MD Primary Care Provider Michelle hiedith [facility] Primary Care Provider [phone] Emy Askew MD Primary Care Pro vider Encounter Details Date Type Department Care Team (Latest Contact Info) Description 05/09/2020 Abstract [facility] CONVERSIONS Dental, Provider, DDS Social History Tobacco [...] [facility] MEDICINE [address] [place] [address] Emy Askew MD 230 [place] [address] 03/19/2025 9:30 AM EST Office Visit [facility] OPTOMETRY [address] [place] [address] Rachel Collado, OD [address] [place] [address] documented as of this encounter Visit Diagnoses Not on filedocumented in this encounter Care Teams Descriptive Catalog Librarian Relationship Specialty Start Date End Date Cyn Bosch MD PCP - General Family Medicine 08/20/19 01/21/22 [place] [employer] FNP [address] [place] [address] PCP - General Family Medicine 01/22/22 07/24/22 Emy Askew MD [address] [place] [address] PCP - General Internal Medicine 07/25/22 documented as of this encounter
--- OUTSIDE RECORDS SUMMARY | 2025-01-26 10:58 | XMS_ITS | Encounter Summary ---
Author Organization [employer] Address [address] [place] [address] Care Team Providers Care Diesel Pile Hammer Operator Name Role Phone Emy Askew MD Primary Care Pro vider Reason for Visit * Reason Onset Date Comments pre-op paperwork 10/18/2022 Encounter Details Date Type Department Care Team ([facility] st Contact Info) Description 10/18/2022 Telephone [facility] MEDICINE [address] [place] [address] Emy Askew MD [address] [place] [address] pre-op paperwork Social History Tobacco Use Types [...] methotrexate and leflunomide??( if ok with her ride attendant)-pt to confirm and Cymbalta if taking in am. Hold am of surgery lasix,amytriptiline,lisinopril ??.HoldASA 5 days prior procedure and avoid NSAIDS 7 days prior procedure. Thanks documented in this encounter Plan of Treatment Upcoming Encounters Date Type Department Care Team (Late st Contact Info) Description 02/11/2025 9:30 AM EST Office Visit [facility] MEDICINE [address] [place] [address] Emy Askew MD [address] [place] [address] 03/19/2025 9:30 AM EST Office Visit [facility] OPTOMETRY [address] [place] [address] Rachel Collado, OD [address] [place] [address] documented as of this encounter Visit Diagnoses Not on filedocumented in this encounter Additional Health Concerns Assessment Noted Time PHQ-9 Depression Total Score: 16 023 10:16 AM EDT documented as of this encounter Care Teams Diesel Pile Hammer Operator Relationship Specialty Start Date End Date Emy Askew MD [address] [place] [address] PCP - General Internal Medicine 07/25/22 documented as of this encounter
--- OUTSIDE RECORDS SUMMARY | 2025-01-26 10:58 | XMS_ITS | Encounter Summary ---
Author Organization [employer] Address [address] [place] [address] 7t [place] [address] Care Team Providers Care Stamping Machine Operator Name Role Phone [facility] Primary Care Provider [phone] Emy Askew MD Primary Care Pro vider Reason for Visit * Reason Onset Date Comments VISION 03/13/2022 Encounter Details Date Type Department Care Team ([facility] st Contact Info) Description 03/13/2022 Telephone [facility] MEDICINE [address] [place] [address] [facility] [address] [place] [address] VISION Social History Tobacco Use Types Packs/Day [...] center regarding an eye exam. Please contact [phone] documented in this encounter Plan of Treatment Upcoming Encounters Date Type Department Care Team (Late st Contact Info) Description 02/11/2025 9:30 AM EST Office Visit [facility] MEDICINE [address] [place] [address] Emy Askew MD [address] [place] [address] 03/19/2025 9:30 AM EST Office Visit [facility] OPTOMETRY [address] [place] [address] Tobias, Rachel, OD [address] [place] [address] documented as of this encounter Visit Diagnoses Diagnosis Diabetes 1.5, managed as type 2 (HCC) documented in this encounter Care Teams Stamping Machine Operator Relationship Specialty Start Date End Date [place] FNP [address] [place] [address] PCP - General Family Medicine 01/22/22 07/24/22 Emy Askew MD [address] [place] [address] [phone] PCP - General Internal Medicine 07/25/22 documented as of this encounter
--- OUTSIDE RECORDS SUMMARY | 2025-01-26 10:59 | XMS_ITS | Encounter Summary ---
Author Organization [facility] Address [address] [place] [address] Phone Care Team Providers Care Employment Specialist/Program Manager Name Role Phone Unknown, Unknown Primary Care Provider Mark Segura MD Primary Care Provider Encounter Details Date Type Department Care Team (Latest Contact Info) Description 05/26/2018 Ancillary Orders [facility] [address] [place] [address] [place] [address] Isidro Watkins, DO [address] [place] [address] Other chest pain Social History Tobacco Use [...] pain documented in this encounter Care Teams Employment Specialist/Program Manager Relationship Specialty Start Date End Date Unknown, Unknown, PCP - General 05/15/18 10/14/19 Mark Foote MD [address] [place] [address] PCP - General Pediatrics 10/15/19 documented as of this encounter Additional Source Comments The information contained in this document represents components of the legal health record. It is not the complete legal health record.[facility]
--- OUTSIDE RECORDS SUMMARY | 2025-01-26 10:59 | XMS_ITS | Encounter Summary ---
Author Organization [employer] Address [address] [place] [address] 7 [place] [address] Care Team Providers Care Cdc Associate Name Role Phone Emy Askew MD Primary Care Pro vider Reason for Visit * Reason Comments Med Refill Encounter Details Date Type Department Care Team ([facility] st Contact Info) Description 02/09/2023 Refill [facility] MEDICINE [address] [place] [address] Emy Askew MD [address] [place] [address] Social History Tobacco Use Types Packs/Day Years [...] Description 02/11/2025 9:30 AM EST Office Visit [facility] MEDICINE [address] [place] [address] Emy Askew MD [address] [place] [address] 03/19/2025 9:30 AM EST Office Visit [facility] OPTOMETRY [address] [place] [address] Tobias, Rachel, OD [address] [place] [address] documented as of this encounter Visit Diagnoses Not on filedocumented in this encounter Additional Health Concerns Assessment Noted Time PHQ-9 Depression Total Score: 16 023 10:16 AM EDT documented as of this encounter Care Teams Cdc Associate Relationship Specialty Start Date End Date Emy Askew MD [address] [place] [address] PCP - General Internal Medicine 07/25/22 documented as of this encounter
--- OUTSIDE RECORDS SUMMARY | 2025-01-26 10:59 | XMS_ITS | Encounter Summary ---
Author Organization [employer] Address [address] [place] [address] [address] [address] Care Team Providers Care Cna Caregiver Name Role Phone Cyn Bosch MD Primary Care Provider Michelle gaedith [facility] Primary Care Provider [phone] Emy Askew MD Primary Care Pro vider Encounter Details Date Type Department Care Team (Latest Contact Info) Description 09/30/2018 Abstract [facility] CONVERSIONS Dental, Provider, DDS Social History Tobacco [...] 9:30 AM EST Office Visit [facility] MEDICINE [address] [place] [address] Emy Askew MD [address] [place] [address] 03/19/2025 9:30 AM EST Office Visit [facility] OPTOMETRY [address] [place] [address] Rachel Collado, OD [address] [place] [address] documented as of this encounter Visit Diagnoses Not on filedocumented in this encounter Care Teams Cna Caregiver Relationship Specialty Start Date End Date Cyn Bosch MD PCP - General Family Medicine 08/20/19 01/21/22 [facility] JULIO CÉSAR Zambrano [address] [place] [address] PCP - General Family Medicine 01/22/22 07/24/22 Emy Askew MD [address] [place] [address] PCP - General Internal Medicine 07/25/22 documented as of this encounter
== END 2025-01-26 09:59 | disposition home or self-care (01) ==
LOC: HO.HPODS 09:31
PROVIDERS: PCP Student in an Organized Health Care Education/Training Program; Visit Provider Student in an Organized Health Care Education/Training Program
DX: E11.42 Type 2 diabetes mellitus with diabetic polyneuropathy (principal); L60.3 Nail dystrophy; B35.1 Tinea unguium; R20.2 Paresthesia of skin; M05.9 Rheumatoid arthritis with rheumatoid factor, unspecified; M35.00 Sjogren syndrome, unspecified; L60.9 Nail disorder, unspecified
CPT/HCPCS: 11721; 99213

== ENCOUNTER → 2025-01-26 09:31 | Outpatient (BNVA) | payer OTHER, SELFPAY | PROVIDERS: PCP Student in an Organized Health Care Education/Training Program; Visit Provider Student in an Organized Health Care Education/Training Program | DX: L60.3 Nail dystrophy (principal); B35.1 Tinea unguium; E11.42 Type 2 diabetes mellitus with diabetic polyneuropathy; R20.2 Paresthesia of skin; M05.9 Rheumatoid arthritis with rheumatoid factor, unspecified; M35.00 Sjogren syndrome, unspecified; L60.9 Nail disorder, unspecified | CPT/HCPCS: 11721; 99212 ==

== ENCOUNTER 2025-02-01 10:10 | Outpatient (AMB) | payer OTHER, SELFPAY ==
[2025-02-01 10:12] VITALS: BMI 25.6
--- NOTE | 2025-02-01 10:12 | MHC.OFFVIS ---
Vital Signs 02/01/25 10:12 Height 5 ft 2 in Weight 140 lb BMI 25.6 Intake Visit Reasons: Inj-B/L knee Durolane injection Intake Note: Jennifer is a 64 year old female who presents today for Bilateral Knee Durolane Injections. Allergies codeine (Codeine) Allergy (Mild, Verified 02/01/25 10:14) BURNING IN CHEST, chest pain sulfamethoxazole (From Bactrim) Allergy (Mild, Verified 02/01/25 10:14) ITCH,RASH HPI HPI Inj-B/L knee Durolane injection: Details: Here for bilateral knee Jennifer injections. 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 SOY (obstructive sleep apnea) COPD (chronic obstructive pulmonary disease) Sicca syndrome Constipation Alopecia Sjogrens syndrome Osteoarthritis Rheumatoid arthritis Fibromyalgia Back pain Difficulty swallowing GERD (gastroesophageal reflux disease) Depression Asthma Elevated cholesterol HTN (hypertension) Surgical History History of laryngoscopy Hx of hemorrhoidectomy History of bladder suspension procedure Hx of dilation and curettage Hx of tubal ligation History of repair of left rotator cuff Hx of colonoscopy History of esophagogastroduodenoscopy (EGD) Family History Father Cancer Mother Heart disease Diabetes Social History Household Members: Children and Other Household Members Other:: daughter, grandkids Are you a primary child care counselor to a significant other at home: No Do you presently have visiting nurse or other home services: No Alcohol intake: never Patient Tobacco Use Status: Never used Tobacco e-Cigarette/Vaping Use: Never Used Second Hand Smoke Exposure: No 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al status: disabled 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 Physical Exam Exam Exam: NAD Skin over bilateral knees clean dry and intact Vital Signs: BMI result Body Mass Index 25.6 Office Procedures Joint Inj/Aspir; Non-Pain Clin Joint Injection/Drain Details: Injected Durolane. Site was prepped using aseptic technique. Patient tolerated the procedure well. Shoulders, Hips, Knees, Knee Large Joint Injection [id number]: Bilateral Knee Coding Procedure code (CPT) selection complete Assessment & Plan Assessment & Plan (1) Bilateral primary osteoarthritis of knee: Code(s): M17.0 - Bilateral primary osteoarthritis of knee Category: Medical Plan: Injected Durolane bilateral knees. Coding Level of Care Code Est Pt Level 2 (16416) Diagnoses Bilateral primary osteoarthritis of knee M17.0 CPT Codes Shoulders, Hips, Knees, - Knee Large Joint Injection : Bilateral Knee ([id number])
--- OUTSIDE RECORDS SUMMARY | 2025-02-01 12:31 | XMS_ITS | Clinical Summary ---
Author Organization [facility] Address [address] [place] [address] Phone Care Team Providers Care Patent Legal Assistant Name Role Phone Mark Foote MD Primary [...] topic Medical Devices Not on [place] [address] [place] [address] C3 ACO [facility] C3 ACO C3 ACO C3 ACO C3 ACO Care Teams Patent Legal Assistant Relationship Specialty Start Date End Date Mark Foote MD [address] [place] [address] PCP - General Pediatrics 10/15/19 Additional Source Comments The information contained in this document represents components of the legal health record. It is not the complete legal health record.[facility]
--- OUTSIDE RECORDS SUMMARY | 2025-02-01 12:31 | XMS_ITS | Encounter Summary ---
Author Organization [employer] Address [address] [place] [address] 7t [place] [address] Care Team Providers Care Craft Demonstrator Name Role Phone Kenya Sol DISASTER DIRECTOR Primary Care Provider [phone] Emy Askew MD Primary Care Pro vider Encounter Details Date Type Department Care Team (Late st Contact Info) Description 05/28/2022 Orders Only [facility] CHC MED & PEDS [address] [place], [place] [phone] Candy Miller LPN Social History Tobacco Use [...] Description 02/11/2025 9:30 AM EST Office Visit [facility] MEDICINE [address] [place], [place] [phone] Emy Askew MD [address] [place], [place] [phone] 03/19/2025 9:30 AM EST Office Visit [facility] OPTOMETRY [address] [place], [place] [phone] Rachel Collado OD [address] [place] [address] documented as of this encounter Visit Diagnoses Not on filedocumented in this encounter Care Teams Craft Demonstrator Relationship Specialty Start Date End Date Kenya Sol FNP [address] [place] [address] PCP - General Family Medicine 01/22/22 07/24/22 Emy Askew MD [address] [place] [address] [phone] PCP - General Internal Medicine 07/25/22 documented as of this encounter
--- OUTSIDE RECORDS SUMMARY | 2025-02-01 12:31 | XMS_ITS | Data Portability ---
Author Organization [place] [facility], Allergy Address [address] [place] [address] Assessment No assessment recorded. Plan of Treatment Reminders Order Date Submit Date Provider Last Modified By Organization Details Last Modified Time Details Appointments None recorded. Lab None recorded. Referral None recorded. Procedures None recorded. Surgeries None recorded. Imaging [place], modified barium swallow study 2024 025 [facility] Diagnosit Imaging Dept, [address] [place] [address], [address], 5 11:51:40 Medication Orders None recorded. Patient TargetsNo targets recorded. Patient InstructionsNo instructions recorded. Reason for Referral None Reported. 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 Diseases of the salivary glands: Hypertroph y; CMS Risk: moderate risk CMS Treatment: establishe d problem (to examiner): stable or improved N ote: Date Diagnosed: 12/30/2013 2:35 PM (527.1) Not Available [facility] 4 02:27:37 Chronic sialadeni tis 506043255 Active 2016 Chronic sialoadeni tis; Note: Date Diagnosed: 07/04/2016 2:17 PM (K11.23) Not Available [facility] 4 02:27:48 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]; Note: Date Diagnosed: 07/04/2016 2:17 PM (M35.0) Not Available [facility] 4 02:27:47 Dysphonia 31211025 Active 2017 Hoarseness ; Note: Date Diagnosed: 02/17/2018 9:52 AM (R49.0) Not Available [facility] 4 02:27:44 Dysphagia 56899171 Active 2018 Other dysphagia; Note: Date Diagnosed: 05/13/2018 9:47 AM (R13.19) Not Available [facility] 4 02:27:43 Disturban ce of salivary secretion 46439642 Active 2018 Xerostomia ; Note: Date Diagnosed: 05/13/2018 9:47 AM (K11.7) Not Available [facility] 4 02:27:54 Bilateral hearing loss 27995804 Active 2018 Other specified hearing loss, bilateral; Note: Date Diagnosed: 08/12/2018 10:01 AM (H91.8X3) Not Available [facility] 4 02:27:41 Oropharyn geal dysphagia 37114861 Active 2024 UMESH DIAZ MD [address] [place] [address], [place], [address] , [facility] 5 13:35:47 Problem Notes None recorded. Procedures Surgical History Date Name Laterality Status Provider Name and Address Organization Details Recorded Time 03/13/2024 FFL_RE completed UMESH DIAZ MD [address] [place] [address], [place], [address], [facility] 03/13/2024 13:36:13 Imaging Results None recorded. Procedure Notes None recorded. Medical Equipment None Reported. Allergies Allergen ID Allergen Name Allergen Category Reaction Reaction Severity Criticality Documentation Date Start Date Code Code System Note Provider Name and Address Organization Details Recorded Time 69287 Bactrim medicatio n other Not available Not available 07/16/2023 60852 9 RxNorm React ion: unkno wn, unspe cifie d;; Not Available [facility] 4 00:55:51 92319 codeine sulfate medicatio n other Not available Not available 07/16/2023 78173 RxNorm React ion: unkno wn, unspe cifie d;; Not Available [facility] 4 00:55:56 Medications Name Sig Start Date Stop Date Status Note LastModified by Organization Details LastModified Time medbox status USE DIRECTED active Not Available Not Available No t Available furosemid e 40 mg tablet TAKE 1 TABLET BY MOUTH EVERY MORNING active Not Available Not Available No t Available Augmentin 875 mg-125 mg tablet 2017 active Medicati on ID: 880830 D uration Value: 5 Prescri bed By [...] nebulizat ion 2018 active Medicati on ID: 709791 D uration Value: 5 Brand Name: albutero [...] mg tablet 2018 active Medicati on ID: 604840 D uration Value: 30 Brand Name: lisinopr [...] mg tablet 2018 active Medicati on ID: 532677 D uration Value: 30 Brand Name: buspiron e Send Method: E-Prescr ibed Sub s Allowed: subs OK Speci al Instruct ion: TAKE 1 TABLET BY MOUTH THREE TIMES DAILY NEEDED ANXIETY Medicati onGeneri cName: buspiron e Not Available Not Available Not Available Tiazac 120 mg capsule,e xtended release 02/04 completed Medicati on ID: 77766 Re ason: () Brand Name: Tiazac S [...] elayed release 2018 active Medicati on ID: 918898 D uration Value: 30 Brand Name: omeprazo le Send Method: E-Prescr ibed Sub s Allowed: subs OK Speci al Instruct ion: TAKE 1 CAPSULE TWICE DAILY IN THE MORNING AND IN THE EVENING 1 HORA AN KALEN DE LAS COMIDAS Medicati onGeneri cName: omeprazo le Not Available Not Available Not Available Aspirin Childrens 81 mg chewable tablet 2013 active Medicati on ID: 37526 Br and Name: Aspirin Children s Send [...] mg tablet 2018 active Medicati on ID: 555797 D uration Value: 30 Brand Name: levon mendes Send Method: E-Prescr ibed Sub s Allowed: subs OK Speci al Instruct ion: TAKE 2 TABLETS BY MOUTH ONCE DAILY IN THE MORNING Medicati onGeneri cName: levon jenkinsqujimmie ne Not Available Not Available Not Available ibuprofen 600 mg tablet 2018 active Medicati on ID: 968086 D uration Value: 30 Brand Name: ibuprofe [...] 24 hr 2018 active Medicati on ID: 250895 D uration Value: 30 Brand Name: metformi n Send Method: E-Prescr ibed Sub s Allowed: subs OK Speci al Instruct ion: TAKE 1 TABLET BY MOUTH TWICE DAILY IN THE MORNING AND IN THE EVENING W ITH FOOD Med icationG enericNa me: metformi n Not Available Not Available Not Available Ambien 5 mg tablet 2013 active Medicati on ID: 70207 Br and Name: Ambien S end Method: [...] mg capsule 2013 active Medicati on ID: 00389 Br and Name: Kade Rivera end Method: [...] inhalatio n 2018 active Medicati on ID: 557597 D uration Value: 30 Brand Name: Breo [...] subcutane ous 2018 active Medicati on ID: 231062 D uration Value: 35 Brand Name: Humulin [...] Updated DateTime 03/13/2024 157.48 cm 26 kg/m2 91815.12 g Shantell Wise [place] [facility] 03/13/2024 13:27:58 Social History None [...] ICD10 Code Diagnosis IMO Codes Diagnosis Note [id number] UMESH DIAZ MD [facility] [address] [place] [address] 03/13/2024 13:18:07 03/13/2024 13:52:50 Oropharyngeal dysphagia 62453123 R13.12 Exam and laryngosco py were normal. I recommend a swallow study (MBS) to reassess her swallow. F/u after. If normal I would suggest GI referral especially given her Sjogrens. Sj gren's syndrome 41589984 M35.00 Encouraged hydration. Will consider GI referral [...] Mendez Member ID Guarantor Name 03/13/2024 1 [facility] - DOS ON OR AFTER 2022 - MEDICARE ADVANTAGE [place] & [place] (MEDICARE REPLACEMENT/AD VANTAGE - PPO) Jennifer Gu [id number] Jennifer Gu Notes Date Note Type Note [...] eyes and dry mouth. UMESH DIAZ MD [address] [place] [address], [address], [place] [facility] 03/13/2024 13:43:36 OBGyn Episode No OBEpisode recorded.
--- OUTSIDE RECORDS SUMMARY | 2025-02-01 12:31 | XMS_ITS | Encounter Summary ---
Author Organization [employer] Address [address] [place] [address] Care Team Providers Care Patrol Inspector Name Role Phone Emy Askew MD Primary Care Pro vider Reason for Visit * Reason Onset Date Comments Triage 07/31/2022 Encounter Details Date Type Department Care Team ([facility] st Contact Info) Description 07/31/2022 Telephone [facility]INE [address] [place] [address] Emy Askew MD [address] [place] [address] Triage Social History Tobacco Use Types Packs/Day [...] The caller accepted this outcome Patient speaks albanian. documented in this encounter Plan of Treatment Upcoming Encounters Date Type Department Care Team (Late st Contact Info) Description 02/11/2025 9:30 AM EST Office Visit [facility] [address] [place] [address] Emy Askew MD [address] [place] [address] 03/19/2025 9:30 AM EST Office Visit [facility] OPTOMETRY [address] [place], [place] [phone] Rachel Colaldo, OD 230 [place] [address] documented as of this encounter Visit Diagnoses Not on filedocumented in this encounter Care Teams Patrol Inspector Relationship Specialty Start Date End Date Emy Askew MD [address] [place] [address] PCP - General Internal Medicine 07/25/22 documented as of this encounter
--- OUTSIDE RECORDS SUMMARY | 2025-02-01 12:31 | XMS_ITS | Encounter Summary ---
Author Organization [employer] Address [address] [facility] [address] 7t [place] [address] Care Team Providers Care Face Worker Name Role Phone Emy Askew MD Primary Care Pro vider Encounter Details Date Type Department Care Team ([facility] st Contact Info) Description 08/07/2023 Orders Only [facility] [address] [place] [address] Valeria Armas FNP [address] [place] [address] Social History Tobacco Use Types Packs/Day Years [...] 02/11/2025 9:30 AM EST Office Visit [facility] MEDICINE [address] [place] [address] Emy Askew MD 230 [place] [address] 03/19/2025 9:30 AM EST Office Visit [facility] OPTOMETRY [address] [place] [address] Tobias, Rachel, OD [address] [place] [address] documented as of this encounter Visit Diagnoses Not on filedocumented in this encounter Additional Health Concerns Assessment Noted Time PHQ-9 Depression Total Score: 16 023 10:16 AM EDT documented as of this encounter Care Teams Face Worker Relationship Specialty Start Date End Date Emy Askew MD [address] [place] [address] PCP - General Internal Medicine 07/25/22 documented as of this encounter
--- OUTSIDE RECORDS SUMMARY | 2025-02-01 12:31 | XMS_ITS | Encounter Summary ---
Author Organization [employer] Address [address] [facility] [address] [address] [place] [address] Care Team Providers Care Woodyard Crane Operator Name Role Phone Emy Askew MD Primary Care Pro vider Encounter Details Date Type Department Care Team ([facility] st Contact Info) Description 02/23/2024 Orders Only [facility] MEDICINE [address] [place] [address] Provider, MD Waylon Social History Tobacco Use [...] Visit [facility] MED[facility]INE [address] [place] [address] Emy Askew MD [address] [place] [address] 03/19/2025 9:30 AM EST Office Visit [facility] OPTOMETRY [address] [place] [address] Tobias, Rachel, OD [address] [place] [address] documented as of this encounter Procedures Procedure [...] documented as of this encounter Care Teams Woodyard Crane Operator Relationship Specialty Start Date End Date Emy Askew MD [address] [place] [address] PCP - General Internal Medicine 07/25/22 documented as of this encounter
--- OUTSIDE RECORDS SUMMARY | 2025-02-01 12:31 | XMS_ITS | Encounter Summary ---
Author Organization [employer] Address [address] [place] [address] 7t [place] [address] Care Team Providers Care Oncology Radiation Physician Name Role Phone [facility] Primary Care Provider [phone] Emy Askew MD Primary Care Pro vider Reason for Visit * Reason Onset Date Comments Appointment Request 06/07/2022 Encounter Details Date Type Department Care Team ([facility] st Contact Info) Description 06/07/2022 Telephone [facility] MEDICINE [address] [place] [address] [facility] [address] [place] [address] Appointment Request Social History Tobacco Use Types [...] with new provider. Please contact pt at [phone] documented in this encounter Plan of Treatment Upcoming Encounters Date Type Department Care Team (Late st Contact Info) Description 02/11/2025 9:30 AM EST Office Visit [facility] MEDICINE [address] [place] [address] Emy Askew MD 230 [place] [address] 03/19/2025 9:30 AM EST Office Visit [facility] OPTOMETRY [address] [place] [address] Rachel Collado, OD [address] [place] [address] documented as of this encounter Visit Diagnoses Not on filedocumented in this encounter Care Teams Oncology Radiation Physician Relationship Specialty Start Date End Date Kenya Sol, CEO [address] [place] [address] PCP - General Family Medicine 01/22/22 07/24/22 Emy Askew MD [address] [place] [address] PCP - General Internal Medicine 07/25/22 documented as of this encounter
--- OUTSIDE RECORDS SUMMARY | 2025-02-01 12:31 | XMS_ITS | Encounter Summary ---
Author Organization [employer] Address [address] [place] [address] 7 [place] [address] Care Team Providers Care Assistant Financial Accountant Name Role Phone Emy Askew MD Primary Care Pro vider Reason for Visit * Reason Comments Med Refill Encounter Details Date Type Department Care Team ([facility] [address] Contact Info) Description 02/14/2024 Refill [facility] MEDICINE [address] [place] [address] Emy Askew MD [address] [place] [address] Social History Tobacco Use Types Packs/Day Years [...] Description 02/11/2025 9:30 AM EST Office Visit [facility] MEDICINE [address] [place] [address] Emy Askew MD [address] [place] [address] 03/19/2025 9:30 AM EST Office Visit [facility] OPTOMETRY [address] [place] [address] Tobias, Rachel, OD 230 [place] [address] documented as of this encounter Visit Diagnoses Not on filedocumented in this encounter Additional Health Concerns Assessment Noted Time PHQ-9 Depression Total Score: 10 024 2:37 PM EDT documented as of this encounter Care Teams Assistant Financial Accountant Relationship Specialty Start Date End Date Emy Askew MD [address] [place] [address] PCP - General Internal Medicine 5/24/23 documented as of this encounter
--- OUTSIDE RECORDS SUMMARY | 2025-02-01 12:31 | XMS_ITS | Encounter Summary ---
Author Organization [employer] Address [address] [place] [address] Care Team Providers Care Benefits Technician Name Role Phone Emy Askew MD Primary Care Pro vider Reason for Visit * Reason Onset Date Comments pre-op paperwork 10/18/2022 Encounter Details Date Type Department Care Team ([facility] st Contact Info) Description 10/18/2022 Telephone [facility] MEDICINE [address] [place] [address] Emy Askew MD [address] [place] [address] pre-op paperwork Social History Tobacco Use Types [...] methotrexate and leflunomide??( if ok with her link machine operator)-pt to confirm and Cymbalta if taking in am. Hold am of surgery lasix,amytriptiline,lisinopril ??.HoldASA 5 days prior procedure and avoid NSAIDS 7 days prior procedure. Thanks documented in this encounter Plan of Treatment Upcoming Encounters Date Type Department Care Team (Late st Contact Info) Description 02/11/2025 9:30 AM EST Office Visit [facility] [address] [place] [address] Emy Askew MD [address] [place] [address] 03/19/2025 9:30 AM EST Office Visit [facility] OPTOMETRY [address] [place] [address] Rachel Collado, OD [address] [place] [address] documented as of this encounter Visit Diagnoses Not on filedocumented in this encounter Additional Health Concerns Assessment Noted Time PHQ-9 Depression Total Score: 16 023 10:16 AM EDT documented as of this encounter Care Teams Benefits Technician Relationship Specialty Start Date End Date Emy Askew MD [address] [place] [address] PCP - General Internal Medicine 07/25/22 documented as of this encounter
--- OUTSIDE RECORDS SUMMARY | 2025-02-01 12:32 | XMS_ITS | Encounter Summary ---
Author Organization [employer] Address [address] [place] [address] 7 [place] [address] Care Team Providers Care Professor Of Visual Arts Name Role Phone Cyn Bosch MD Primary Care Provider Michelle aledith [facility] Primary Care Provider [phone] Emy Askew MD Primary Care Pro vider Encounter Details Date Type Department Care Team (Latest Contact Info) Description 05/09/2020 Abstract [facility] CONVERSIONS Dental, Provider, DDS Social [...] 9:30 AM EST Office Visit [facility] MEDICINE [address] [place] [address] Emy Askew MD [address] [place] [address] 03/19/2025 9:30 AM EST Office Visit [facility] OPTOMETRY [address] [place] [address] Rachel Collado, OD [address] [place] [address] documented as of this encounter Visit Diagnoses Not on filedocumented in this encounter Care Teams Professor Of Visual Arts Relationship Specialty Start Date End Date Cyn Bosch MD PCP - General Family Medicine 08/20/19 01/21/22 [place] FNP [address] [place] [address] PCP - General Family Medicine 01/22/22 07/24/22 Emy Askew MD [address] [place] [address] PCP - General Internal Medicine 07/25/22 documented as of this encounter
--- OUTSIDE RECORDS SUMMARY | 2025-02-01 12:32 | XMS_ITS | Encounter Summary ---
Author Organization [employer] Address [address] [place] [address] 7t [place] [address] Care Team Providers Care Targeteer Name Role Phone [facility] Primary Care Provider [phone] Emy Askew MD Primary Care Pro vider Reason for Visit * Reason Onset Date Comments VISION 03/13/2022 Encounter Details Date Type Department Care Team ([facility] st Contact Info) Description 03/13/2022 Telephone [facility] MEDICINE [address] [place] [address] [facility] [address] [place] [address] VISION Social History Tobacco Use Types Packs/Day [...] center regarding an eye exam. Please contact [phone] documented in this encounter Plan of Treatment Upcoming Encounters Date Type Department Care Team (Late st Contact Info) Description 02/11/2025 9:30 AM EST Office Visit [facility] MEDICINE [address] [place] [address] Emy Askew MD [address] [place] [address] 03/19/2025 9:30 AM EST Office Visit [facility] OPTOMETRY [address] [place] [address] Tobias, Rachel, OD [address] [place] [address] documented as of this encounter Visit Diagnoses Diagnosis Diabetes 1.5, managed as type 2 (HCC) documented in this encounter Care Teams Targeteer Relationship Specialty Start Date End Date [place] FNP [address] [place] [address] PCP - General Family Medicine 01/22/22 07/24/22 Emy Askew MD [address] [place] [phone] PCP - General Internal Medicine 07/25/22 documented as of this encounter
--- OUTSIDE RECORDS SUMMARY | 2025-02-01 12:32 | XMS_ITS | Encounter Summary ---
Author Organization [employer] Address [address] [place] [address] 7t [place] [address] Care Team Providers Care Liquid Chlorine Operator Name Role Phone [facility] Primary Care Provider [phone] Emy Askew MD Primary Care Pro vider Encounter Details Date Type Department Care Team (Late st Contact Info) Description 03/26/2022 Orders Only [facility] MEDICINE [address] [place], [place] [phone] Lizett Cannon LPN Social History Tobacco Use [...] Description 02/11/2025 9:30 AM EST Office Visit [facility] MEDICINE [address] [place], [place] [phone] Emy Askew MD [address] [place], [place] [phone] 03/19/2025 9:30 AM EST Office Visit [facility] OPTOMETRY [address] [place] [address] Rachel Collado, OD [address] [place], [place] [phone] documented as of this encounter Visit Diagnoses Not on filedocumented in this encounter Care Teams Liquid Chlorine Operator Relationship Specialty Start Date End Date Kenya Sol FNP [address] [place], [place] [phone] PCP - General Family Medicine 01/22/22 07/24/22 Emy Askew MD [address] [place], [place] [phone] PCP - General Internal Medicine 07/25/22 documented as of this encounter
--- OUTSIDE RECORDS SUMMARY | 2025-02-01 12:32 | XMS_ITS | Encounter Summary ---
Author Organization [employer] Address [address] [place] [address] 7t [place] [address] Care Team Providers Care Elementary Classroom Teacher Name Role Phone [facility] Primary Care Provider [phone] Emy Askew MD Primary Care Pro vider Reason for Visit * Reason Onset Date Comments Med Refill 05/11/2022 Encounter Details Date Type Department Care Team (Late st Contact Info) Description 05/11/2022 Telephone [facility] MEDICINE [address] [place] [address] [facility] [address] [place] [address] Med Refill Social History Tobacco Use Types [...] has lost the device. Please sent to [facility] [place], [place] - [address] [place] [address] documented in this encounter Plan of Treatment Upcoming Encounters Date Type Department Care Team ([facility] st Contact Info) Description 02/11/2025 9:30 AM EST Office Visit [facility] MEDICINE [address] [place] [address] Emy Askew MD [address] [place] [address] 03/19/2025 9:30 AM EST Office Visit [facility] OPTOMETRY [address] [place] [address] Tobias, Rachel, OD [address] [place] [address] documented as of this encounter Visit Diagnoses Not on filedocumented in this encounter Care Teams Elementary Classroom Teacher Relationship Specialty Start Date End Date [place] Kenya, CHIEF ENGINEER [employer] [address] [place] [address] PCP - General Family Medicine 01/22/22 07/24/22 Emy Askew MD [address] [place] [address] PCP - General Internal Medicine 07/25/22 documented as of this encounter
--- OUTSIDE RECORDS SUMMARY | 2025-02-01 12:32 | XMS_ITS | Data Portability ---
Author Organization [facility], [facility] Address [address] [place] [id number] Care Team Providers Care Service Planner Name Role Phone HIM CCA OTHER Unavailable OTHER Assessment Encounter Date Assessment Date Assessment LastModified by Organization Details LastModified Time 04/13/2024 04/13/2024 As noted, we were called to see this patient regarding concerns of URI symptoms. Evaluation in the field was performed by my clothing busheler colleague, as noted above, I provided real-time [...] QL IA, respiratory specimen 2024 025 [email or web address] [facility], [address] [place] [address], [phone] 02/10/202 5 14:42:18 rapid flu (A+B) 2024 025 [email or web address] [facility], [address] [place] [address], [phone] 5 14:42:21 Referral None recorded. Procedures None [...] Name and Address Organization Details Recorded Time 30946 codeine medicatio n Not available Not available Not available 04/13/2024 2670 RxNorm Not Available [facility] 5 09:12:08 41514 Bactrim medicatio n Not available Not available Not available 04/13/2024 49697 9 RxNorm Not Available [facility] - production 5 09:12:08 71953 sulfameth oxazole medicatio n Not available Not available Not available 04/13/2024 48226 RxNorm Not Available [facility] 5 09:12:08 20937 trimethop rim medicatio n Not available Not available Not available 04/13/2024 90208 RxNorm Not Available [facility] [...] Ultra-Fine Jammie Pen Needle 32 gauge x 5/32 USE THREE TO FOUR TIMES DAILY DIRECTED [...] Vitals Date Recorded Respiratory rate Oxygen saturation Body temperature Heart rate Systolic And Diastolic Provider Name and Address Organization Details Last Updated DateTime 5 16 /min 96 % 98.8 [degF] 81 /min 134/76 [...] ICD10 Code Diagnosis IMO Codes Diagnosis Note [id number] Sebastian Vanessa MD Main - [facility] [address] [place] [phone] 04/13/2024 14:39:43 04/13/2024 21:52:34 Viral upper respiratory tract infection 114345181 J06.9 Health Concerns Section Related Observation LastModified by Organization Detai ls LastModified Time None Recorded Concern Status LastModified by Organization Details LastModified Time None Recorded Advance Directives Directive None Recorded Payers Insurance Date Sequence Insurance Name Policy Number Policy Mendez Covered Member ID Mendez Member ID Guarantor Name 04/22/2024 1 [facility] - DOS ON OR AFTER 2022 - DUAL ELIGIBLE - INTERMEDIATE OPTIONS AND ONE CARE (MEDICARE REPLACEMENT/ADV ANTAGE - HMO) Jennifer Gu [id number] Jennifer Gu Notes Date Note Type Note [...] at 04/13/2024 - 09:12 Comments: HPI reviewed Foreign Clerk Organization Information for Emanuel Paige Legal Name: [employer]. Address: [address] [place] [address], Bulk Driver: Vinny Delgadillo MD CLIA No.: [id number] Foreign Clerk POC Test Results from Emanuel Paige Rapid influenza antigen (14:32:34) Flu: - Rapid COVID antigen (14:32:35) COVID: - ...................... ...................... ...................... ...................... ...................... ...................... ......... Foreign Clerk Note From Emanuel Paige: Dispatch to the [...] test negative, rapid flu test positive negative. [facility] consulted. Red flags discussed. All times are approximate. ...................... ...................... ...................... ...................... ...................... ...................... ......... [facility] Consulted: Sebastian Vanessa ...................... ...................... ...................... ...................... ...................... ...................... ......... Disposition: Fulfilled Sebastian Vanessa MD [address] [place] [address],[address] [facility], [place], [phone], [place] 04/13/2024 15:34:43 OBGyn Episode No OBEpisode recorded.
--- OUTSIDE RECORDS SUMMARY | 2025-02-01 12:32 | XMS_ITS | Encounter Summary ---
Author Organization [facility] Address [address] [place] [address] Phone Care Team Providers Care Electroless Plater Name Role Phone Unknown, Unknown Primary Care Provider Mark Segura MD Primary Care Provider Encounter Details Date Type Department Care Team (Latest Contact Info) Description 05/26/2018 Ancillary Orders [facility] [address] [place] [address] [place] [address] Isidro Watkins, DO [address] [place] [id number] Other chest pain Social History Tobacco Use [...] pain documented in this encounter Care Teams Electroless Plater Relationship Specialty Start Date End Date Unknown, Unknown, PCP - General 05/15/18 10/14/19 Mark Foote MD [address] [place] [id number] PCP - General Pediatrics 10/15/19 documented as of this encounter Additional Source Comments The information contained in this document represents components of the legal health record. It is not the complete legal health record.[facility]
--- OUTSIDE RECORDS SUMMARY | 2025-02-01 12:32 | XMS_ITS | Encounter Summary ---
Author Organization [employer] Address [address] [place] [address] [address] [place] [address] Care Team Providers Care Loftsman Name Role Phone Emy Askew MD Primary Care Pro vider Reason for Visit * Reason Comments Med Refill Encounter Details Date Type Department Care Team ([facility] st Contact Info) Description 02/09/2023 Refill [facility] [address] [place] [address] Emy Askew MD [address] [place] [address] Social History Tobacco Use Types Packs/Day Years [...] Visit [facility] [address] [place] [address] Emy Askew MD [address] [place] [address] 03/19/2025 9:30 AM EST Office Visit [facility]OM[facility] [address] [place] [address] Tobias, Rachel, OD [address] [place] [address] documented as of this encounter Visit Diagnoses Not on filedocumented in this encounter Additional Health Concerns Assessment Noted Time PHQ-9 Depression Total Score: 16 023 10:16 AM EDT documented as of this encounter Care Teams Loftsman Relationship Specialty Start Date End Date Emy Askew MD [address] [place] [id number] PCP - General Internal Medicine 07/25/22 documented as of this encounter
--- OUTSIDE RECORDS SUMMARY | 2025-02-01 12:32 | XMS_ITS | Clinical Summary ---
Author Organization [employer] Address [address] [place] [address] [address] [place] [address] Care Team Providers Care Sexual Assault Response Coordinator Name Role Phone Emy Askew MD [...] needed for dry eyes 07/09/19 18 Active Fluticasone Furoate-Vilanterol (Breo Ellipta) 100-25 MCG/ACT aerosol powder Inhale 1 puff at bed time. 07/26/19 22 Active acetaminophen (Tylenol) 500 MG tabletIndications: Acute left-sided low back pain with left-sided sciatica Take 2 tablets (1,000 mg) by mouth every 6 (six) hours if needed for moderate pain, headaches or fever. 30 tablet 11/19/19 Active Farxiga 10 MG TAKE 1 TABLET BY MOUTH EVERY MORNING 30 tablet 2 12/17/19 Active melatonin 5 MG tablet Take 10 mg by mouth Once per day. Take 2 tabs by mouth at bedtime 12/25/19 Active clonazePAM (KlonoPIN) 0.5 MG tablet Take 0.5 mg by mouth if needed each day. 12/19/19 Active amLODIPine (Norvasc) 5 MG tablet Take 5 mg by mouth at noon and 5 mg in the evening. Active Diclofenac Sodium (Voltaren) 1 % gelIndications:Nec k pain,Osteoarthriti s of both knees, unspecified osteoarthritis type Apply topically to affected area twice a day as needed for pain 30 g 01/13/20 Active biotin 5 MG tablet Take 1 tablet (5 mg) by mouth Once per day. 90 tablet 1 07/17/19 Active topiramate (Topamax) 25 MG tablet 07/15/19 Active gabapentin (Neurontin) 400 MG capsule Take 1 capsule by mouth 2 times daily. 05/27/19 Active TRUEplus Lancets 33G misc USE DIRECTED TO TEST BLOOD SUGAR FOUR TIMES DAILY 100 each 11 08/22/19 Active Ventolin HFA 108 (90 Base) MCG/ACT inhaler INHALE 2 PUFFS BY MOUTH EVERY 6 HOURS NEEDED FOR WHEEZING 18 g 2 08/25/19 Active docusate sodium (Colace) 100 MG capsuleIndications :Chronic constipation TAKE 1 CAPSULE BY MOUTH TWICE DAILY NEEDED FOR CONSTIPATION 180 capsule 1 09/01/19 Active furosemide (Lasix) 40 MG tablet Take 40 mg by mouth in the morning. 09/01/19 25 Active Ozempic, 0.25 or 0.5 MG/DOSE, 2 MG/3ML solution pen-injector INJECT 0.5 MG SUBCUTANEOUSLY EVERY 7 DAYS IN THE ABDOMEN, THIGHS, OR UPPER ARM, ROTATE INJECTION SITES. 12/25/19 Active insulin glargine (Lantus SoloStar) 100 UNIT/ML pen Inject 7 Units under the skin at bedtime. 3 mL 1 09/12/19 25 026 Active Insulin Pen Needle (pen needle 07/17 ) 31G X 8 mm misc Daily use 100 each 12 09/12/19 25 026 Active Continuous Glucose Public Health Dietitian (FreeStyle Anthony 3 Jay) deviceIndications: Type 2 diabetes mellitus without complication, unspecified whether custodial insulin use 1 each Once per day. Use as directed for CGM 1 each 09/12/19 25 Active Continuous Glucose Sensor (FreeStyle Anthony 3 Plus Sensor) miscIndications:Ty pe 2 diabetes mellitus without complication, unspecified whether terminal carman insulin use 1 each every 15 days. Use to test blood sugar twice a day 2 each 09/12/19 25 Active glucose blood (FreeStyle Precision Clement Test) test strip Use to test blood sugar twice a day 100 each 09/12/19 25 026 Active Alcohol Swabs (Alcohol Prep) 70 % padsIndications:Ty pe 2 diabetes mellitus without complication, unspecified whether custodial insulin use USE DIRECTED FIVE TIMES DAILY 100 each 10/09/19 25 Active cevimeline (Evoxac) 30 MG capsule TAKE 1 CAPSULE BY MOUTH THREE TIMES DAILY IN THE MORNING, AT NOON, AND IN THE EVENING 90 capsule 10/20/19 25 Active calcium carbonate 1500 (600 Ca) MG tabletIndications: Benign essential hypertension TAKE 1 TABLET BY MOUTH EVERY MORNING 90 tablet 1 10/28/19 25 Active Aspirin Low Dose 81 MG EC tablet TAKE 1 TABLET BY MOUTH EVERY MORNING 90 tablet 1 10/28/19 25 Active loratadine (Claritin) 10 MG tablet TAKE 1 TABLET BY MOUTH EVERY DAY NEEDED FOR ALLERGIES 90 tablet 1 10/28/19 25 Active losartan (Cozaar) 100 MG tablet TAKE 1 TABLET BY MOUTH EVERY MORNING 90 tablet 1 10/30/19 25 Active senna (Senokot) 8.6 MG tablet TAKE 2 TABLETS BY MOUTH EVERY DAY NEEDED FOR CONSTIPATION 180 tablet 1 10/30/19 25 Active carvedilol (Coreg) 25 MG tabletIndications: Benign essential hypertension TAKE 1 TABLET BY MOUTH TWICE DAILY IN THE MORNING AND IN THE EVENING 60 tablet 2 11/24/19 25 Active cloNIDine (Catapres) 0.2 MG tablet TAKE 1 TABLET BY MOUTH TWICE DAILY IN THE MORNING AND IN THE EVENING 60 tablet 3 11/24/19 25 Active estradiol (Estrace) 0.1 MG/GM vaginal cream Insert 1 g into the vagina 2 (two) times a week. twice weekly 45 g 5 11/27/19 25 Active potassium chloride (Klor-Con) 20 MEQ packet Take 20 mEq by mouth 2 times daily. Active lidocaine (Lidoderm) 5 % patchIndications:N tam[place] pain Apply 1 patch topically Once per day. Remove & discard patch within 12 hours or as directed by . 60 patch 2 5 4:45 PM EST 11/25/19 25 Active D3 Super Strength 50 MCG (1999 UT) capsuleIndications :Vitamin D deficiency, unspecified TAKE 1 CAPSULE BY MOUTH EVERY MORNING 90 capsule 1 12/18/19 25 Active atorvastatin (Lipitor) 20 MG tablet TAKE 1 TABLET BY MOUTH AT BEDTIME 90 tablet 12/29/19 25 Active Active Problems Problem Noted Date Diagnosed [...] referred by ENT for further eval in [place] but never went -referred again to ENT [...] referred by ENT for further eval in [place] but never went -referred again to ENT [...] w RA / Sjogren's disease, follows w marketing development manager - Continue care w specialist -on leflunomide and MTX Assessment & Plan (10/23/2022 5:23 PM EDT): Pt w RA / Sjogren's disease, follows w marketing development manager - Continue care w specialist -on leflunomide and MTX Assessment & Plan (09/24/2022 8:33 PM EDT): Pt w RA / Sjogren's disease, follows w marketing development manager - Continue care w specialist Bilateral [...] 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 Denies SI but has thoughts to be better off . - Continue care w specialist - Pt requests information to be able to change to an old age home --already received information -in process per pt Assessment & Plan (10/23/2022 5:23 PM EDT): Pt following w psychiatrist and therapist at [facility]. Denies SI but has thoughts to be better off . - Continue care w specialist - Pt requests information to be able to change to an old age home --already received information -in process per pt Assessment & Plan (09/24/2022 8:32 PM EDT): Pt following w psychiatrist and therapist at [facility]. Denies SI but has thoughts to be better off . - Continue care w specialist - Pt requests information to be able to change to an old age home -- I spoke w nurse case manager today and they will come to speak w pt to give info. Was told that there is no need to refer to CM for this. Type 2 diabetes mellitus without complication Assessment & Plan (12/06/2022 6:16 AM EDT): 09/2022 HbA1C 8.2<---8.7, CBG 248., total ch 169, trig 324( in fasting) ,HDL 36,LDL 69, Microalb neg Used to follow w recruiter specialist, but lost care. Not on metformin for [...] - to f in 1 y. - Multicultural Internship: seen in 11/2022 Assessment & Plan (10/23/2022 5:46 PM EDT): 09/2022 HbA1C 8.2<---8.7, CBG 248., total ch 169, trig 324( in fasting) ,HDL 36,LDL 69, Microalb neg Used to follow w recruiter specialist, but lost care. Not on metformin for [...] - to f in 1 y. - Multicultural Internship: referred today Assessment & Plan (09/24/2022 8:51 PM EDT): Today HbA1C 8.7, CBG 248. Used to follow w recruiter specialist, but lost care. - DM2 labs. - Will consider increasing Trulicity at her next appt. - Pt not currently on Metformin, but used to be in the past. Will check at her next appt, and if she can tolerate it, will resume Rx. - Ophthalmology 07/2022 - to f in 1 y. - Multicultural Internship: will refer at next visit. Varicose veins of lower extremity 07/08/2017 Assessment & Plan (10/23/2022 5:12 PM EDT): Pt w lower extremity edema trace from 1+ before , possibly from Cardiazem and venous insufficiency. - Advised to use compression stockings,--started using with noted improved LE edema -I confirmed today w her state tested nursing assistant-Dr Watkins #[phone] that pt does not have CHF and [...] (12/06/2022 6:19 AM EDT): Pt following with marketing development manager. Pt w consistently dry mouth. From [...] for unclear reasons. - PT following w state tested nursing assistant actively w on and off chest [...] mg in pm - PT following w state tested nursing assistant -will f BP in next 3 to 4 weeks Assessment & Plan (09/24/2022 8:43 PM EDT): BP slightly elevated at 144/94 - Holter 2019 neg. -echocardiogram 2018The left ventricular systolic function is normal. The visually estimated ejection fraction is between 60-65%. -stress test 2019 : nondiagnostic EKG For ischemia. - Will monitor BP manually at next visit. - PT following w state tested nursing assistant Chronic constipation 12/24/2016 Gastroesophageal reflux disease [...] in 2016 here . I called her state tested nursing assistant today and he reports last EKG was normal as well Component Assembler -Dr Watkins states given QTC < 500 [...] and leflunomide ( if ok wit her marketing development manager)-pt to ask and Cymbalta if taking in am. Hold am of surgery lasix,amytriptiline,lisinopril .Hold ASA 5 days prior procedure and avoid NSAIDS 7 days prior procedure. -will rec to have post op EKG as rec by her state tested nursing assistant for noted prolonged QTC -will rec [...] DEPARTMENT Provider, Generic External Data 12/31/2024 Telephone [facility] [address] [place] [address] Emy Askew MD Prior Authorization 12/28/2024 Refill [facility] [address], [place] [phone] Emy Askew MD 12/17/2024 Refill [facility] [address] [place] [address] Emy Askew MD Vitamin D deficiency, unspecified 12/15/2024 Orders Only GENERIC EXTERNAL DATA DEPARTMENT Provider, Generic External Data 12/14/2024 Orders Only GENERIC EXTERNAL DATA DEPARTMENT Provider, Generic External Data 11/24/2024 10:45 AM EDT Office Visit [address] [address] Emy Askew MD Lesion of tonsil (Primary Dx); Rheumatoid arthritis with positive rheumatoid factor, involving unspecified site ([facility]); Neck pain; Encounter for immunization; Health care maintenance; Sialoadenitis of submandibular gland; Type 2 diabetes mellitus without complication, unspecified whether custodial insulin use ([facility]); Hypokalemia; Healthcare maintenance; Poor memory; Elevated alkaline phosphatase level; Benign essential hypertension 11/24/2024 Travel 11/24/2024 Orders Only GENERIC EXTERNAL DATA DEPARTMENT Provider, Generic External Data 11/23/[address] [address] Emy Askew MD chart prep 11/21/[address] [address] Emy Askew MD Benign essential hypertension 11/17/2024 Patient Outreach [address] [address] Emy Askew MD Pre-visit Planning (LVM ) from Last 3 Months Immunizations Immunization Administration [...] 9:30 AM EST Office Visit [facility] [address] [place] [address] Emy Askew MD [address] [place] [address] 03/19/2025 9:30 AM EST Office Visit [facility] [address] [place] [address] Rachel Collado, OD [address] [place] [address] Health Maintenance Due Date Last Done Comments [...] 12/24/2024 12/25/2023, 0203/2023, 10/04/2022, Additional history exists Mammogram 03/17/2025 03/17/2024, [...] complication, unspecified whether terminal carman insulin use ([facility]) BI MAMMOGRAM SCREENING TOMOSYNTHESIS BILATERAL Routine 03/17/2024 1:00 PM EST LIPID PANEL, STANDARD Routine 12/25/2023 7:08 AM EDT Annual physical exam ALBUMIN, RANDOM URINE W/CREATININE Routine 12/25/2023 7:05 AM EDT Annual physical exam BITEWING - SINGLE RADIOGRAPHIC IMAGE Routine 06/10/2023 3:30 PM EDT Periodontal disease Fractured dental yazidi with loss of material HPV MRNA E6/E7 [...] (01/15/2025 5:15 AM EST) Color Urine Yellow [facility] Appearance Urine Clear [facility] PH 6.0 5.0 - 9.0 [facility] Glucose Urine UA >=1000(A) Negative mg/dL [facility] Urine Blood Negative Negative [facility] Specific [place] - Urine >=1.030(H) 1.005 - 1.025 [facility] Urine Protein Negative Neg-Trace mg/dL [facility] Urine Ketones Negative Negative mg/dL [facility] Nitrite Urine Negative Negative [facility] Leukocyte Esterase Urine Negative Negative [facility] RBC Urine 0-2 0 - 2 /HPF [facility] Urine WBC 0-5 0 - 5 /HPF [facility] Urine Squamous Epithelial Cell 0-2 0 - 2 /HPF [facility] Urine Bacteria None Seen None Seen [facility] Hyaline Casts, Urine 0-2 0 - 2 /LPF [facility] 01/15/2025 5:15 AM EST 01/15/2025 5:18 AM EST [facility] - 01/15/2025 5:29 AM EST [id number], Clean [employer] us Generic External Data Provider LAB URINE ORDERAB LES Final Result [facility] [address] [place] [phone] * Hematoxylin and Eosin Stain (12/15/2024 8:01 AM EDT) 12/15/2024 8:01 AM EDT 12/15/2024 9:35 AM EDT [facility] - 12/16/2024 3:57 PM EDT ----- ------- Name: Jennifer Palmer Age/Sex: 64/F : 1960 Unit#: [id number] Attend Dr: Thor Callahan MD Re12/15/24 Status: [facility] Location: [facility] Disch: ----- ------- SPEC : [id number] RECD: 12/15/24 STATUS: CORRIE VELEZ NUM: [id number] PRANAY: 12/15/24 [facility] DR: Thor Callahan MD ENTERED: [...] microscopic examination, multiple pieces in cassette A. ([facility]) IHC S/NG Disclaimer NOTE: Unless otherwise stated, all tissue is formalin-fixed and paraffin-embedded. Some or all of the immunohistochemical tests reported herein may have been developed and their performance characteristics determined by [facility]. They have not been cleared or approved by the U.S. Food and Drug Administration (FDA). However, the FDA has determined that such clearance or approval is not necessary. This laboratory is certified under the Clinical Laboratory Improvement Amendments of 1988 (CLIA) as qualified to perform high complexity clinical laboratory testing. Copies To: Thor Callahan MD [facility] [address] [place] [address] [phone] CONTINUED ON NEXT PAGE ----- ------- Name: Jennifer Palmer Age/Sex: 64/F : 1960 Unit#: [id number] Attend Dr: Thor Callahan MD Re12/15/24 Status: [facility] Location: [facility] Disch: ----- ------- SPEC : [id number] RECD: 12/15/24 STATUS: KATHYNoni ROSIE NUM: [id number] PRANAY: 12/15/24 [facility] DR: Thor Callahan MD ENTERED: 12/15/24 SP TYPE: Surgical OTHR DR: Emy Askew MD ORDERED: HENRI Stain/3, Gross Micro L4 Copies To: (Continued) Emy Askew MD [address] [phone] ----- ------- Signed (signature on file) Wesley Jackson MD 12/16/24 1557 ----- ------- END OF REPORT Generic External Data Provider LAB BLOOD ORDERAB LES Final Result Performing Organization Address [facility] Co de Phone Number [facility] [address] [place] [phone] * (ABNORMAL) Glucose, Whole Blood (12/15/2024 6:50 AM EDT) Glucose, Whole Blood 230(H) 60 - 115 mg/dL [facility] Comment:METER #: [id number] 12/15/2024 6:50 AM EDT 12/15/2024 6:57 AM EDT Generic External Data Provider LAB BLOOD ORDERAB LES Final Result Performing Organization Address [facility] de Phone Number [facility] [address] [place] [phone] * CT Soft Tissue Neck w/ Contrast (12/14/2024 1:19 PM EDT) Anatomical Region Laterality Modality Head, Neck Computed Tomogra phy 12/14/2024 1:19 PM EDT Narrative 12/14/2024 1:21 PM EDT [address] [address] [address] Scan Report Signed Patient: Jennifer Palmer MR#: [id number] 0 : 1960 Acct:[id number] Age/Sex: 64 / F ADM Date: 12/14/24 Loc: .ED Attending Dr: Ordering Physician: Gregg Santoro PA-C Date of Service: 12/14/24 Procedure(s): CT soft tissue neck w IV con Accession Number(s): [id number] cc: Gregg Santoro PA-C; Emy Askew MD Report Number: [id number]: Total DLP = 484.00 mGy-cm Reason for [...] 12/14/24 1320 DD/ 1319 TD/TT: 12/14/24 1319 Chief Innovation Officer: Procedure Note Donotuseinterpreter, Image - 12/14/[address] [place] [address] [address] Scan Report Signed Patient: Axel Palmer#: [id number] 0 : 9Acct:[id number] Age/Sex: 64 / FADM Date: 12/14/24 Loc: HO.ED Attending Dr: Ordering Physician: Gregg Santoro PA-C Date of Service: 12/14/24 Procedure(s): CT soft tissue neck w IV con Accession Number(s): [id number] cc: Gregg Santoro PA-C; Emy Askew MD Report Number: [id number]: Total DLP = 484.00 mGy-cm Reason for [...] 12/14/24 1320 DD/ 1319 TD/TT: 12/14/24 1319 Chief Innovation Officer: [facility] External Provider IMG CT PROCEDURES Edited Result - Final * (ABNORMAL) CBC auto differential (12/14/2024 10:22 AM EDT) White Blood Count 9.5 4.8 - 10.8 X10*3/uL [facility] Red Blood Count 4.92 4.20 - 5.50 X10*6/uL [facility] Hemoglobin 14.4 12.0 - 16.0 g/dl [facility] Hematocrit 44.1 37.0 - 47.0 % [facility] Mean Corpuscular Volume 89.6 80.0 - 98.0 fL [facility] Mean Corpuscular Hemoglobin 29.3 27.0 - 33.0 pg [facility] Mean Corpuscular HGB Conc 32.7 31.0 - 35.0 g/dl [facility] Red Cell Distribution Width 12.9 11.0 - 16.0 % [facility] Platelet Count 253 160 - 400 X10*3/uL [facility] Mean Platelet Volume 10.0 9.4 - 12.3 fL [facility] Neutrophils Percent Auto 60.5 45 - 73 % [facility] Imm Gran Pct Auto 0.8(H) 0.0 - 0.4 % [facility] Lymphocytes Percent Auto 25.3 20 - 40 % [facility] Monocytes Percent Auto 8.5 2 - 11 % [facility] Eosinophils Percent Auto 4.4(H) 0 - 4 % [facility] Basophils Percent Auto 0.5 0 - 2 % [facility] NRBC Pct Auto 0.0 0.0 - 0.2 /100WBC [facility] Neutrophils Absolute Auto 5.7 2.0 - 8.3 x10*3/uL [facility] Imm Gran Abs Auto 0.08(H) 0.00 - 0.03 X10*3/uL [facility] Lymphocytes Absolute Auto 2.4 1.2 - 4.9 X10*3/uL [facility] Monocytes Absolute Auto 0.8 0.1 - 1.2 X10*3/uL [facility] Eosinophils Absolute Auto 0.4 0.0 - 0.4 X10*3/uL [facility] Basophils Absolute Auto 0.1 0.0 - 0.2 X10*3/uL [facility] NRBC Abs Auto 0.000 0.0 - 0.012 X10*3/uL [facility] 12/14/2024 10:2 2 AM EDT 12/14/2024 10:26 AM EDT us Generic External Data Provider LAB BLOOD ORDERAB LES Final Result [facility] [address] [place] [phone] * (ABNORMAL) Comprehensive Metabolic Panel (12/14/2024 10:22 AM EDT) Sodium 142 135 - 145 mmol/L [facility] Potassium 3.8 3.3 - 5.1 mmol/L [facility] Chloride 108 96 - 108 mmol/L [facility] Carbon Dioxide 26 22 - 29 mmol/L [facility] Anion Gap 12 12 - 20 [facility] Urea Nitrogen (BUN) 13 9 - 16 mg/dL [facility] Creatinine, Serum 0.67 0.5 - 1.4 mg/dL [facility] Creatinine Clr Calc Pharmacy 74.6 [facility] Comment:Provided height and weight: 157.48 cm,68.039 kg.eGFR (calculated from the MDRD study equation) and eCrCl(calculated from the Cockcroft-Gault equation) are based ondifferent parameters and may not yield comparable results.If eCrCl result is absurd, please check patient'sheight/weight. Estimated Glomerular Filt Rate >60 [facility] Comment:Chronic Kidney Disea se: Estimated GFR < 60 mL/min/1.55p6Rglrmw Kidney Disease: Estimated GFR < 15 mL/min/1.73m2 Glucose 259(H) 60 - 115 mg/dL [facility] Calcium 9.3 8.4 - 10.2 mg/dL [facility] Bilirubin, Total 0.3 0.0 - 1.0 mg/dL [facility] Aspartate Amino Transferase 20 5 - 31 U/L [facility] Alanine Aminotransferase 16 0 - 31 U/L [facility] Total Protein 7.5 6.5 - 8.0 g/dL [facility] Albumin Level 4.0 3.5 - 5.0 g/dL [facility] Alkaline Phosphatase 129(H) 39 - 117 U/L [facility] 12/14/2024 10:2 2 AM EDT 12/14/2024 10:26 AM EDT us Generic External Data Provider LAB BLOOD ORDERAB LES Final Result [facility] [address] [place] [phone] * (ABNORMAL) Glucose, Whole Blood (11/24/2024 9:04 AM EDT) Glucose, Whole Blood 326(H) 60 - 115 mg/dL [facility] Comment:METER #: [id number] Testing performed in the Endocrinology Department [address], [facility]. 11/24/2024 9:04 AM EDT 11/24/2024 9:07 AM EDT us Generic External Data Provider LAB BLOOD ORDERAB LES Final Result [facility] [address] [place] [phone] * (ABNORMAL) POCT HGB A1C (09/11/2024 9:28 AM EDT) Hemoglobin A1C 8.3(A) 4.0 - 5.7 % QC Media Lot # [id number] Lot# Expiration Date ,206,098 Blood 09/11/2024 9:28 AM EDT us Emy Goldsmith MD POINT OF CARE KALEN T ENTER/EDIT ORDERABLES Final Result * BI Mammogram Screening Tomosynthesis Bilateral (03/17/2024 1:00 PM EST) Anatomical Region Laterality Modality Breast Bilateral Mammography 03/17/2024 1:00 PM EST Narrative 03/28/2024 10:52 AM EST [facility] [address] [place] [address] Mammography Report Signed Patient: Jennifer Palmer MR#: [id number] 0 : 1960 Acct:[id number] Age/Sex: 63 / F ADM Date: 03/17/24 Loc: HO.MAMMO Attending Dr: Emy Goldsmith MD Ordering Physician: Emy Askew MD Re sults: 1Negative Date of Service: 03/17/24 Follow Up: 1 Year From Orig inal Mammogram Procedure(s): MM tomosynthesis screening BI Accession Number(s): [id number] cc: Emy Askew MD EXAMINATION: MM SCREENING [...] 03/28/24 1049 DD/ 1300 TD/TT: 03/17/24 1320 Chief Innovation Officer: Procedure Note Donotuseinterpreter, Image - 03/28/2024 [facility] [address] [place] [address] Mammography Report Signed Patient: Axel Palmer#: [id number] 0 : 9Acct:[id number] Age/Sex: 63 / FADM Date: 03/17/24 Loc: DELON Attending Dr: Emy Goldsmith MD Ordering Physician: Emy Askew sults: 1Negative Date of Service: 03/17/24Follow Up: 1 Year From Orig inal Mammogram Procedure(s): MM tomosynthesis screening BI Accession Number(s): [id number] cc: Emy Askew MD EXAMINATION: MM SCREENING [...] by: Sadia Monae DO 03/28/2024 10:49 AM [facility] Dictated By: Sadia Monae DO Signed By: <Electronically signed by Sadia Monae DO in OV> 03/28/24 1049 DD/ 1300 TD/TT: 03/17/24 1320 Chief Innovation Officer: Emy Goldsmith MD IMG BI PROCEDURES Final Result * (ABNORMAL) Lipid Panel, Standard (12/25/2023 7:08 AM EDT) Triglycerides 232(H) <150 mg/dL [facility] Comment:Desirable Triglyceri de: less than 150 mg/dLBorderline High Triglyceride 150-199 mg/dLHigh Triglyceride: 200-499 mg/dLVery High Triglyceride: greater than or equal to 5OO mg/dL Cholesterol 154 <200 mg/dL [facility] Comment:Desirable Cholestero l: less than 200 mg/dLBorderline High Cholesterol: 200-239 mg/dLHigh Cholesterol: greater than 239 mg/dL LDL Cholesterol Calculated 64 <100 mg/dL [facility] Comment:Desirable LDL: less than 100 mg/dLNear Optimal/Above Optimal LDL: 110- 129 mg/dLBorderline High LDL: 130-159 mg/dLHigh LDL: 160-189 mg/dLVery High LDL: greater than or equal to 190 mg/dL HDL Cholesterol 44 >40 mg/dL [facility] Comment:Desirable HDL: great er than 40 mg/dL Note: This HDL assay may give artificially low results in patients with liver disease. Blood Venous blood specimen / Unknown 12/25/2023 7:08 AM EDT 12/25/2023 7:09 AM EDT us Emy Goldsmith MD LAB BLOOD ORDERAB LES Final Result Performing Organization Address [facility] Co de Phone Number [facility] [address] [place] [phone] * (ABNORMAL) Albumin, Random Urine W/Creatinine (12/25/2023 7:05 AM EDT) Creatinine, Urine 50.21 mg/dL [facility] Microalbumin Urine 78.0 mg/L [facility] Microalbum Creatinine Ratio Ur 155.3(H) <30 ug/mg cr [facility] Comment:Albumin/Creatinine R atio Reference Ranges: Normal: < 30 ug/mg creatinine Microalbuminuria: 30 - 300 ug/mg creatinineClinical Albuminuria: > 300 ug/mg creatinine Urine (Urine, Random) 12/25/2023 7:05 AM EDT 12/25/2023 7:49 AM EDT us Emy Goldsmith MD LAB URINE ORDERAB LES Final Result Performing Organization Address [facility]/ZIP Co de Phone Number [facility] [address] [place] [phone] * HPV mRNA E6/E7 w/Reflex to HPV Genotypes 16, 18/45 (05/27/2023 10:50 AM EDT) HPV nRNA E6/E7 Not Detected Not Detected [facility] Comment:Methodology: Transcr iption-Mediated AmplificationThis assay detects E6/E7 viral messenger RNA (mRNA) from 14high-risk HPV types (16,18,31,33,35,39,45,51,52,56,58,59,66,68).Cervical sources are required for HPV testing.If a vaginal source from a patient who has had atotal hysterectomy with removal of cervix wassubmitted, please contact the testing laboratoryfor alternative testing options.For additional information, please refer [email or web address]/faq/[email or web address](This link if provided for information/educational purposes only.)THIS TEST WAS PERFORMED AT:[employer] [place] [phone] CAMARENA MD HPV mRNA E6/E7 [facility] HPV 16 RNA [facility] HPV 18/45 RNA [facility] 05/27/2023 10:5 0 AM EDT 05/28/2023 11:50 AM EDT Alden Cai [facility] CYTOLOGY ORDERABLES F inal Result [facility] [address] [place] [address] [phone] * Pap Smear (05/27/2023 10:50 AM EDT) Swab Cervix uteri structure / Unknown 05/27/2023 10:50 AM EDT 05/28/2023 11:50 AM EDT Narrative [facility] - 06/09/2023 5:49 PM EDT ----- ------- Name: Jennifer Palmer Age/Sex: 62/F : 1960 Unit#: [id number] Attend Dr: ALDEN CAI [facility] Re05/27/23 Status: DEP REF Location: [facility] Disch: ----- ------- SPEC : [id number] RECD: 05/28/23-1150 STATUS: CORRIE VELEZ NUM: [id number] PRANAY: 05/27/23-[address]: ALDEN CAI [facility] ENTERED: 05/28/23-1305 SP TYPE: Pap Smr OTHR DR: ORDERED: Pap Smear Interpretation Satisfactory for evaluation. Negative for intraepithelial lesion or malignancy. Atrophic. HPV mRNA E6/E7: NOT DETECTED This assay detects E6/E7 viral messenger RNA (mRNA) from 14 high-risk HPV types (16, 18, 31, 33, 35, 39, 45, 51, 52, 56, 58, 59, 66, 68) HPV testing performed by [facility], [place], [place]. See reference laboratory portion of the EMR for entire report. Clinical Information LMP: Postmenopausal Previous PAP test: Unknown date/findings Material Received ThinPrep-Vaginal/Cervical ----- ------- Signed (signature on file) Esther A Nenita 06/09/23 1749 ----- ------- END OF REPORT Alden Cai [facility] CYTOLOGY ORDERABLES F inal Result Performing Organization Address [facility]/ZIP Co de Phone Number [facility] [address] [place] [address] [phone] * Colonoscopy (05/09/2023 6:56 PM EST) Historical Provider HEALTH MAINTENANCE Final Result * Hepatitis C Antibody Reflex (10/04/2022 9:42 AM EDT) Hepatitis C Antibody Nonreactive Nonreactive [facility] Comment:Antibodies to HCV no t detected; does not exclude early acuteHCV infection. 10/04/2022 9:42 AM EDT 10/04/2022 9:43 AM EDT us Emy Goldsmith MD LAB BLOOD ORDERAB LES Final Result Performing Organization Address [facility] Co de Phone Number [facility] [address] [place] [address] [phone] from Last 3 Months or Most Recently Relevant to Health Maintenance Insurance [facility] SENIOR LIVING OPTIONS (HMO D-SNP) PATRICIA [place] [id number] [facility] MEDICAID STAND ADULT Care Teams Sexual Assault Response Coordinator Relationship Specialty Start Date End Date Emy Askew MD [address] [place] [phone] PCP - General Internal Medicine 07/25/22
--- OUTSIDE RECORDS SUMMARY | 2025-02-01 12:32 | XMS_ITS | Encounter Summary ---
Author Organization [employer] Address [address] [place] [address] [address] [address] Care Team Providers Care Executive Officer Name Role Phone Cyn Bosch MD Primary Care Provider Michelle scedith [facility] Primary Care Provider [phone] Emy Askew MD Primary Care Pro vider Encounter Details Date Type Department Care Team (Latest Contact Info) Description 10/26/2021 Abstract [facility] CON[facility] Dental, Provider, DDS Social History [...] EST Office Visit [facility] MEDIC[facility] [address] [place] [address] Emy Askew MD [address] [place] [address] 03/19/2025 9:30 AM EST Office Visit [facility] OPTOMETRY [address] [place] [address] Rachel Collado, OD [address] [place] [phone] documented as of this encounter Visit Diagnoses Not on filedocumented in this encounter Care Teams Executive Officer Relationship Specialty Start Date End Date Cyn Bosch MD PCP - General Family Medicine 08/20/19 01/21/22 [place] F[place] [address] [place] [phone] PCP - General Family Medicine 01/22/22 07/24/22 Emy Askew MD [address] [place] [phone] PCP - General Internal Medicine 07/25/22 documented as of this encounter
--- OUTSIDE RECORDS SUMMARY | 2025-02-01 12:32 | XMS_ITS | Encounter Summary ---
Author Organization [employer] Address [address] [place] [address] [address] [address] Care Team Providers Care Meat Carver Name Role Phone Cyn Bosch MD Primary Care Provider Michelle njedith [facility] Primary Care Provider [phone] Emy Askew MD Primary Care Pro vider Encounter Details Date Type Department Care Team (Latest Contact Info) Description 09/30/2018 Abstract [facility] CONVERSIONS Dental, Provider, DDS Social History [...] Visit [facility] MEDICINE [address] [place] [address] Emy Askew MD [address] [place] [address] 03/19/2025 9:30 AM EST Office Visit [facility] OPTOMETRY [address] [place] [address] Rachel Collado, OD [address] [place] [address] documented as of this encounter Visit Diagnoses Not on filedocumented in this encounter Care Teams Meat Carver Relationship Specialty Start Date End Date Cyn Bosch MD PCP - General Family Medicine 08/20/19 01/21/22 [facility] JULIO CÉSAR Zambrano [address] [place] [phone] PCP - General Family Medicine 01/22/22 07/24/22 Emy Askew MD [address] [place] [phone] PCP - General Internal Medicine 07/25/22 documented as of this encounter
== END 2025-02-01 10:31 | disposition home or self-care (01) ==
LOC: HO.HOS 10:11
PROVIDERS: PCP Student in an Organized Health Care Education/Training Program; Visit Provider Orthopaedic Surgery
DX: M17.0 Bilateral primary osteoarthritis of knee (principal)
CPT/HCPCS: 20610

== ENCOUNTER → 2025-02-01 10:10 | Outpatient (BNVA) | payer OTHER, SELFPAY | PROVIDERS: PCP Student in an Organized Health Care Education/Training Program; Visit Provider Orthopaedic Surgery | DX: M17.0 Bilateral primary osteoarthritis of knee (principal) | CPT/HCPCS: 20610; J7318 ==

== ENCOUNTER 2025-02-09 09:56 | Emergency (ER) | payer OTHER, SELFPAY ==
--- NOTE | ~2025-02-09 | XR_ITS ---
EXAMINATION: XR LUMBAR SPINE 2-3 VIEWS HISTORY: low back pain COMPARISON: Comparison is made with the prior examination dated 11/17/2023. FINDINGS: AP, lateral, and coned down views of the lumbar spine are submitted. Osseous mineralization is normal. Five nonrib-bearing lumbar vertebral bodies are identified, maintaining normal height without evidence of fracture. There is mild levoscoliosis. Again seen is slight spondylolisthesis of L4 on L5. There is mild degenerative disc disease with disc space narrowing and osteophyte formation. The posterior elements are intact. The visualized paraspinal soft tissues are unremarkable. XR/XR lumbar spine 2-3V IMPRESSION: Mild levoscoliosis. Mild degenerative disc disease and slight spondylolisthesis of L4 on L5. Electronically signed by: Cm Starkey MD 02/09/2025 11:21 AM VINCE NATHAN
[2025-02-09 10:48] VITALS: BP 152/80; PULSE 86; RESP 18; TEMP 36.6; O2SAT 97; BMI 26.2
--- NOTE | 2025-02-09 10:54 | ED.GENADULT ---
HPI - General Adult General Chief complaint: Back Pain/Injury Stated complaint: Back Pain Time Seen by Provider: 02/09/25 13:43 Source: patient Mode of arrival: ambulatory Limitations: no limitations History of Present Illness ED Provider: Anuj Rodriguez HPI narrative: 64 yold female presents to the ED low back pain since yesterday without any trauma. Patient denies any urinary/bowel incontinence, IV drug use, dysuria, hematuria, flank pain, fever, chills, abdominal pain, nausea, or vomiting. Related Data Home Medications ?Medication ?Instructions ?Recorded ?Confirmed clonidine HCl 0.1 mg tablet 0.1 mg PO BID 12/08/19 12/10/24 diltiazem HCl 360 mg capsule,24 360 mg PO DAILY 12/08/19 12/10/24 hr,extended release furosemide 20 mg tablet 20 mg PO DAILY 12/08/19 12/10/24 aspirin 81 mg tablet,delayed 81 mg PO DAILY 05/12/20 12/10/24 release clonazepam 0.5 mg tablet 0.5 mg PO DAILY PRN Anxiety 10/29/22 12/10/24 leflunomide 20 mg tablet 20 mg PO DAILY 10/29/22 12/10/24 loratadine 10 mg tablet 10 mg PO DAILY PRN allergies 10/29/22 12/10/24 melatonin 5 mg tablet 10 mg PO BEDTIME PRN Insomnia 10/29/22 12/10/24 sennosides 8.6 mg tablet (senna) 17.2 mg PO DAILY PRN constipation 10/29/22 12/10/24 atorvastatin 20 mg tablet 20 mg PO BEDTIME 04/30/23 12/10/24 calcium carbonate 600 mg PO QAM 04/30/23 12/10/24 carvedilol 25 mg tablet 25 mg PO BID 04/30/23 12/10/24 cevimeline 30 mg capsule 1 cap PO QAM 04/30/23 12/10/24 duloxetine 60 mg capsule,delayed 60 mg PO BEDTIME 04/30/23 12/10/24 release folic acid 1 mg tablet 1 mg PO DAILY 04/30/23 12/10/24 gabapentin 300 mg capsule 300 mg PO BID 04/30/23 12/10/24 losartan 100 mg tablet 100 mg PO DAILY 02/10/24 12/10/24 topiramate 25 mg tablet 25 mg PO BEDTIME 09/21/24 12/10/24 docusate sodium 100 mg capsule 100 mg PO DAILY 12/10/24 12/10/24 acetaminophen 500 mg capsule 500 mg PO Q6H PRN 01/08/25 albuterol sulfate 2.5 mg/3 mL 2.5 mg inhalation Q4-6H PRN 01/08/25 (0.083 %) solution for nebulization albuterol sulfate 90 mcg/actuation 2 puff inhalation Q6H PRN 01/08/25 aerosol inhaler (Ventolin HFA) biotin 5 mg tablet 5 mg PO DAILY 01/08/25 bisacodyl 5 mg tablet 5 mg PO BEDTIME 01/08/25 Previous Rx's ?Medication ?Instructions ?Recorded blood glucose control high and low #1 ea 03/28/20 solution (FreeStyle Control solution) 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 meter (FreeStyle #1 ea 09/09/20 Lite Meter kit) blood sugar diagnostic (FreeStyle #150 ea 02/10/21 Lite Strips) lancets 33 gauge (TRUEplus Lancets) #120 ea 06/20/21 naproxen 500 mg tablet 500 mg PO BID PRN pain #14 tabs 07/12/21 cholecalciferol (vitamin D3) 50 50 mcg PO DAILY #90 caps 12/12/21 mcg (2,000 unit) capsule hydrocortisone 2.5 % topical cream [address] BEDTIME PRN hemorrhoids 01/15/23 with perineal applicator #30 grams (Proctosol HC) ondansetron 4 mg disintegrating 4 mg PO Q8H PRN nausea and 06/21/24 tablet vomiting #20 tabs dapagliflozin propanediol 10 mg 10 mg PO DAILY #30 tabs 09/21/24 tablet (Farxiga) 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,communications instructor,cont #1 ea 11/24/24 (FreeStyle Anthony 3 [place]) insulin glargine 100 unit/mL (3 12 unit (0.12 mL) subcut QPM #3 mL 11/24/24 mL) subcutaneous pen (Lantus Solostar U-100 Insulin) insulin lispro 100 unit/mL 5 unit (0.05 mL) subcut DAILY #3 mL 11/24/24 subcutaneous pen (Humalog KwikPen (U-100) Insulin) pen needle, diabetic 31 gauge x #100 ea 11/24/24/ (Comfort EZ Pen [place]) diabetic shoes and insoles #1 ea 11/26/24 cephalexin 500 mg capsule 500 mg PO BID 7 days #14 caps 12/14/24 doxycycline hyclate 100 mg capsule 100 mg PO BID #14 caps 12/14/24 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 sensor (FreeStyle #6 ea 12/21/24 Anthony 3 Plus Sensor device) cyclobenzaprine 5 mg tablet 5 mg PO TID PRN muscle spasm #14 01/15/25 tabs ciclopirox 8 % topical solution 1 appl topical BEDTIME 4 weeks 01/26/25 #6.6 mL semaglutide 2 mg/dose (8 mg/3 mL) 2 mg (0.75 mL) subcut QWEEK #3 mL 02/02/25 subcutaneous pen injector (Ozempic) acetaminophen 325 mg tablet 650 mg (2 x 325 mg) PO Q6H PRN 02/10/25 (Tylenol) fever or pain #30 tabs ketorolac 10 mg tablet 10 mg PO TID PRN pain 5 days #15 02/10/25 tabs prednisone 20 mg tablet 40 mg (2 x 20 mg) PO DAILY 5 days 02/10/25 #10 tabs Allergies Allergy/AdvReac Type Severity Reaction Status Date / Time codeine (Codeine) Allergy Mild BURNING IN Verified 02/10/25 08:33 CHEST, chest pain sulfamethoxazole (From Allergy Mild ITCH,RASH Verified 02/10/25 08:33 Bactrim) Review of Systems Review of Systems: low back pain Yes all other systems are reviewed and are negative [facility] Past Medical History Medical History (Updated 02/10/25 @ 09:27 by PATRICIA Steen) Nail disorder Tinea unguium Nail dystrophy Paresthesia of foot, bilateral Greater trochanteric bursitis of left hip Hyperparathyroidism DM2 (diabetes mellitus, type 2) Vitamin D deficiency 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 rheumatoid arthritis 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 SOY (obstructive sleep apnea) COPD (chronic obstructive pulmonary disease) Sicca syndrome Constipation Alopecia Sjogrens syndrome Osteoarthritis Rheumatoid arthritis Fibromyalgia Back pain Difficulty swallowing GERD (gastroesophageal reflux disease) Depression Asthma Elevated cholesterol HTN (hypertension) Surgical History History of laryngoscopy Hx of hemorrhoidectomy History of bladder suspension procedure Hx of dilation and curettage Hx of tubal ligation History of repair of left rotator cuff Hx of colonoscopy History of esophagogastroduodenoscopy (EGD) Family History Family History Father Cancer Mother Heart disease Diabetes Social History Social History Household Members: Children and Other Household Members Other:: daughter, grandkids Are you a primary attending ambulatory care to a significant other at home: No Do you presently have visiting nurse or other home services: No Alcohol intake: never Patient Tobacco Use Status: Never used Tobacco e-Cigarette/Vaping Use: Never Used Second Hand Smoke Exposure: No 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al status: disabled 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 Physical Exam ED Vital Signs: Vital Signs - 24 hr 02/09/25 10:48 Temperature 97.8 F Pulse Rate 86 Respiratory Rate 18 Blood Pressure 152/80 H Pulse Oximetry 97 Oxygen Delivery Method Room Air BMI result Body Mass Index 26.2 Const General: cooperative, healthy appearing, comfortable, no acute distress, well developed, alert, awake and Physically active Orientation/consciousness: patient oriented x3 HENMT Head: Yes normal to inspection, Yes No palpable skull fracture present, Yes normocephalic and Yes atraumatic Eyes General: appearance normal, both eyes and all related structures Neck Neck: Yes normal visual inspection, Yes full ROM, Yes no lymphadenopathy, Yes no meningeal signs, Yes trachea midline, Yes supple, No anterior neck swelling and No tender Chest Chest palpation & inspection: normal inspection of the chest and normal palpation of entire chest wall Resp Effort & Inspection: normal respiratory effort and able to speak in complete sentences Auscultation: clear to auscultation bilaterally Cardio Jugular venous distension: no JVD Heart sounds: S1 normal heart sound present and S2 normal heart sound present GI Palpation (GI): Soft to palpation, not firm, nontender, no guarding and not rigid General: Yes no CVA tenderness Back/Spine/Pelvis Back: no CVA tenderness and back tenderness (lumbar) Skin General skin exam: no rashes or lesions noted, elasticity normal and turgor normal Neuro General: patient oriented x3, gait normal, tone normal, moves all extremities, Normal light touch and pain sensation, no meningeal signs, no focal motor deficits, CN's II-XI intact bilaterally and normal sensation to monofilament Extrem General: Yes normal to inspection, Yes full ROM and Yes capillary refill normal Psych Appearance: grossly normal, well kempt and not disheveled Course Course Course Narrative: RME: 64-year-old female presents to ED for low back pain that is worse with movement without any dysuria, hematuria, nausea, vomiting, urinary/bowel incontinence, IV drug use, or any immunocompromise diseases. UA x-ray ordered Medical Decision Making Medical Decision Making [facility] Narrative: 64-year-old female presents to ED for low back pain without any trauma. X-ray shows lumbar radiculopathy. UA negative for UTI. Patient left ED for before re-evaluation. Differential Diagnosis Differential Diagnoses: The differential diagnosis associated with the presentation includes (Lumbar radiculopathy UTI kidney stone) Admission/Observation Consideration of admission/observation: Escalation of care including admission/observation considered Lab Data [facility] Lab Attestation statement: I reviewed the patient's lab results. Labs: Lab Results 02/09/25 Range/Units 13:01 Urine Color Yellow Urine Appearance Cloudy Urine pH 6.0 (5.0-9.0) Ur Specific [place] >= 1.030 H (1.005-1.025) Urine Protein Negative (Neg-Trace) mg/dL Urine Glucose (UA) >=1000 H (Negative) mg/dL Urine Ketones Negative (Negative) mg/dL Urine Blood Negative (Negative) Urine Nitrite Negative (Negative) Ur Leukocyte Esterase Negative (Negative) Urine RBC 0-2 (0-2) /HPF Urine WBC 0-5 (0-5) /HPF Ur Squamous Epith Cells 3-5 (0-2) /HPF Urine Bacteria None Seen (None Seen) Hyaline Casts 0-2 (0-2) /LPF Independent Interpretation I performed an independent interpretation of an: Plain X-Ray Independent Historian Clinical information obtained from an independent historian. History obtained from or confirmed by: Other (patient) Prescription Management I considered prescription management with: Pain Medication Discharge Plan Discharge Clinical Impression: Diagnosis unknown Patient Disposition: Left W/O Completing Treatment Prescriptions: No Action (DME) 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 meter [FreeStyle Lite Meter] Kit See Rx Instructions miscellaneous .MEDSUPPLY Qty: 1 0RF Rx Instructions: As directed (DME) FreeStyle Lite Strips Strip See Rx Instructions .ROUTE .MEDSUPPLY Qty: 150 11RF Rx Instructions: 4 times a day (DME) lancets [TRUEplus Lancets] 33 gauge misc See Rx Instructions .ROUTE .MEDSUPPLY Qty: 120 11RF Rx Instructions: 4 times a day cholecalciferol (vitamin D3) 50 mcg (2,000 unit) capsule 50 mcg PO DAILY Qty: 90 0RF (DME) FreeStyle Anthony 3 [place] Misc See Rx Instructions .ROUTE .MEDSUPPLY Qty: 1 0RF Rx Instructions: As directed (DME) FreeStyle Anthony 3 Plus Sensor Device See Rx Instructions .ROUTE .MEDSUPPLY Qty: 6 5RF Rx Instructions: As directed every 15 days Ozempic 2 mg/dose (8 mg/3 mL) pen injector 2 mg subcut QWEEK Qty: 3 7RF diltiazem HCl 360 mg Capsule,Extended Release 24 Hr 360 mg PO DAILY clonidine HCl 0.1 mg Tablet 0.1 mg PO BID furosemide 20 mg Tablet 20 mg PO DAILY aspirin 81 mg tablet,delayed release (DR/EC) 81 mg PO DAILY naproxen 500 mg tablet 500 mg PO BID PRN (Reason: pain) Qty: 14 0RF acetaminophen [Tylenol] 325 mg tablet 650 mg PO Q6H PRN (Reason: fever or pain) Qty: 30 0RF prednisone 20 mg tablet 40 mg PO DAILY 5 Days Qty: 10 0RF ketorolac 10 mg tablet 10 mg PO TID PRN (Reason: pain) 5 Days Qty: 15 0RF Rx Instructions: Tolerated IM or IV in department ondansetron 4 mg tablet,disintegrating 4 mg PO Q8H PRN (Reason: nausea and vomiting) Qty: 20 0RF docusate sodium 100 mg Capsule 100 mg PO DAILY cephalexin 500 mg capsule 500 mg PO BID 7 Days Qty: 14 0RF doxycycline hyclate 100 mg capsule 100 mg PO BID Qty: 14 0RF cyclobenzaprine 5 mg tablet 5 mg PO TID PRN (Reason: muscle spasm) Qty: 14 0RF (DME) FreeStyle Control Solution See Rx Instructions .ROUTE .MEDSUPPLY Qty: 1 2RF Rx Instructions: Twice a month sennosides [senna] 8.6 mg tablet 17.2 mg PO DAILY PRN (Reason: constipation) melatonin 5 mg tablet 10 mg PO BEDTIME PRN (Reason: Insomnia) clonazepam 0.5 mg tablet 0.5 mg PO DAILY PRN (Reason: Anxiety) leflunomide 20 mg tablet 20 mg PO DAILY loratadine 10 mg tablet 10 mg PO DAILY PRN (Reason: allergies) gabapentin 300 mg capsule 300 mg PO BID duloxetine 60 mg capsule,delayed release(DR/EC) 60 mg PO BEDTIME cevimeline 30 mg capsule 1 cap PO QAM calcium carbonate 600 mg calcium (1,500 mg) tablet 600 mg PO QAM atorvastatin 20 mg tablet 20 mg PO BEDTIME carvedilol 25 mg tablet 25 mg PO BID folic acid 1 mg tablet 1 mg PO DAILY topiramate 25 mg tablet 25 mg PO BEDTIME dapagliflozin propanediol [Farxiga] 10 mg tablet 10 mg PO DAILY Qty: 30 7RF insulin lispro [Humalog KwikPen Insulin] 100 unit/mL insulin pen 5 unit subcut DAILY Qty: 3 3RF Rx Instructions: 5 units of insulin 15 mins before breakfast (DME) pen needle, diabetic [Comfort EZ Pen [place]] 31 gauge x 3/16 needle See Rx Instructions .Route Qty: 100 5RF Rx Instructions: As directed t inject insulin twice daily insulin glargine [Lantus Solostar U-100 Insulin] 100 unit/mL (3 mL) insulin pen 12 unit subcut QPM Qty: 3 3RF (DME) diabetic shoes and insoles See Rx Instructions .Route .MEDSUPPLY Qty: 1 0RF Rx Instructions: As directed ciclopirox 8 % solution 1 appl topical BEDTIME 28 Days Qty: 6.6 1RF hydrocortisone [Proctosol HC] 2.5 % cream with perineal applicator [address] BEDTIME PRN (Reason: hemorrhoids) Qty: 30 3RF losartan 100 mg tablet 100 mg PO DAILY acetaminophen 500 mg capsule 500 mg PO Q6H PRN albuterol sulfate 2.5 mg /3 mL (0.083 %) solution for nebulization 2.5 mg inhalation Q4-6H PRN albuterol sulfate [Ventolin HFA] 90 mcg/actuation HFA aerosol inhaler 2 puff inhalation Q6H PRN bisacodyl 5 mg tablet 5 mg PO BEDTIME biotin 5 mg tablet 5 mg PO DAILY Discharge Date/Time: 02/09/25 14:05
[2025-02-09 13:11] LABS: Appearance Urine Cloudy; Glucose Urine UA >=1000 mg/dL (Negative); PH 6.0 (5.0-9.0); Specific Gravity - Urine >= 1.030 (1.005-1.025); UMIC TRIGGER UACC YES
== END 2025-02-09 14:05 | disposition left against medical advice (07) ==
PROVIDERS: Physician Assistant; Emergency Provider Emergency Medicine; PCP Student in an Organized Health Care Education/Training Program
DX: M54.50 Low back pain, unspecified (principal); Z53.29 Procedure and treatment not carried out because of patient's decision for other reasons; E11.9 Type 2 diabetes mellitus without complications; E78.00 Pure hypercholesterolemia, unspecified; I10 Essential (primary) hypertension; J45.909 Unspecified asthma, uncomplicated; Z79.4 Long term (current) use of insulin; Z79.899 Other long term (current) drug therapy
CPT/HCPCS: 72100; 81001; 99282; 99283

== ENCOUNTER → 2025-02-09 10:50 | Outpatient (BNV) | payer OTHER, SELFPAY | PROVIDERS: PCP Student in an Organized Health Care Education/Training Program; Visit Provider Radiology Diagnostic Radiology | DX: M51.360 Other intervertebral disc degeneration, lumbar region with discogenic back pain only (principal); M43.16 Spondylolisthesis, lumbar region; M41.86 Other forms of scoliosis, lumbar region | CPT/HCPCS: 72100 ==

== ENCOUNTER 2025-02-10 08:24 | Emergency (ER) | payer OTHER, SELFPAY ==
--- NOTE | ~2025-02-10 | XR_ITS ---
EXAMINATION: XR THORACIC SPINE CLINICAL INFORMATION: thoracic back pain COMPARISON: March 29, 2015 TECHNIQUE: AP, lateral and swimmer's projection FINDINGS: Multilevel marginal osteophyte formation and endplate sclerosis decreased intervertebral disc height throughout the lower thoracic and upper lumbar spine. S-shaped curvature of the thoracolumbar spine. Multilevel syndesmophyte formation and lower thoracic upper lumbar spine. No acute cortical disruption or malalignment. No lytic or blastic lesions. XR/XR thoracic spine 3V IMPRESSION: Multilevel thoracolumbar spondylosis and scoliosis. Worsened since prior exam. Electronically signed by: Brock Lauren MD 02/10/2025 09:27 AM [facility]IN[facility]
[2025-02-10 08:31] VITALS: BP 128/73; PULSE 90; RESP 18; TEMP 36.7; O2SAT 95; BMI 26.3
--- NOTE | 2025-02-10 08:32 | ED.GENADULT ---
HPI - General Adult General Chief complaint: Back Pain/Injury Stated complaint: General Medical Time Seen by Provider: 02/10/25 09:01 Related Data Home Medications ?Medication ?Instructions ?Recorded ?Confirmed clonidine HCl 0.1 mg tablet 0.1 mg PO BID 12/08/19 12/10/24 diltiazem HCl 360 mg capsule,24 360 mg PO DAILY 12/08/19 12/10/24 hr,extended release furosemide 20 mg tablet 20 mg PO DAILY 12/08/19 12/10/24 aspirin 81 mg tablet,delayed 81 mg PO DAILY 05/12/20 12/10/24 release clonazepam 0.5 mg tablet 0.5 mg PO DAILY PRN Anxiety 10/29/22 12/10/24 leflunomide 20 mg tablet 20 mg PO DAILY 10/29/22 12/10/24 loratadine 10 mg tablet 10 mg PO DAILY PRN allergies 10/29/22 12/10/24 melatonin 5 mg tablet 10 mg PO BEDTIME PRN Insomnia 10/29/22 12/10/24 sennosides 8.6 mg tablet (senna) 17.2 mg PO DAILY PRN constipation 10/29/22 12/10/24 atorvastatin 20 mg tablet 20 mg PO BEDTIME 04/30/23 12/10/24 calcium carbonate 600 mg PO QAM 04/30/23 12/10/24 carvedilol 25 mg tablet 25 mg PO BID 04/30/23 12/10/24 cevimeline 30 mg capsule 1 cap PO QAM 04/30/23 12/10/24 duloxetine 60 mg capsule,delayed 60 mg PO BEDTIME 04/30/23 12/10/24 release folic acid 1 mg tablet 1 mg PO DAILY 04/30/23 12/10/24 gabapentin 300 mg capsule 300 mg PO BID 04/30/23 12/10/24 losartan 100 mg tablet 100 mg PO DAILY 02/10/24 12/10/24 topiramate 25 mg tablet 25 mg PO BEDTIME 09/21/24 12/10/24 docusate sodium 100 mg capsule 100 mg PO DAILY 12/10/24 12/10/24 acetaminophen 500 mg capsule 500 mg PO Q6H PRN 01/08/25 albuterol sulfate 2.5 mg/3 mL 2.5 mg inhalation Q4-6H PRN 01/08/25 (0.083 %) solution for nebulization albuterol sulfate 90 mcg/actuation 2 puff inhalation Q6H PRN 01/08/25 aerosol inhaler (Ventolin HFA) biotin 5 mg tablet 5 mg PO DAILY 01/08/25 bisacodyl 5 mg tablet 5 mg PO BEDTIME 01/08/25 Previous Rx's ?Medication ?Instructions ?Recorded blood glucose control high and low #1 ea 03/28/20 solution (FreeStyle Control solution) 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 meter (FreeStyle #1 ea 09/09/20 Lite Meter kit) blood sugar diagnostic (FreeStyle #150 ea 02/10/21 Lite Strips) lancets 33 gauge (TRUEplus Lancets) #120 ea 06/20/21 naproxen 500 mg tablet 500 mg PO BID PRN pain #14 tabs 07/12/21 cholecalciferol (vitamin D3) 50 50 mcg PO DAILY #90 caps 12/12/21 mcg (2,000 unit) capsule hydrocortisone 2.5 % topical cream 1 appl NM BEDTIME PRN hemorrhoids 01/15/23 with perineal applicator #30 grams (Proctosol HC) ondansetron 4 mg disintegrating 4 mg PO Q8H PRN nausea and 06/21/24 tablet vomiting #20 tabs dapagliflozin propanediol 10 mg 10 mg PO DAILY #30 tabs 09/21/24 tablet (Farxiga) 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,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,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 #1 ea 11/24/24 (FreeStyle Anthony 3 Lizella) insulin glargine 100 unit/mL (3 12 unit (0.12 mL) subcut QPM #3 mL 11/24/24 mL) subcutaneous pen (Lantus Solostar U-100 Insulin) insulin lispro 100 unit/mL 5 unit (0.05 mL) subcut DAILY #3 mL 11/24/24 subcutaneous pen (Humalog KwikPen (U-100) Insulin) pen needle, diabetic 31 gauge x #100 ea 11/24/24 3/16 (Comfort EZ Pen Vincent) diabetic shoes and insoles #1 ea 11/26/24 cephalexin 500 mg capsule 500 mg PO BID 7 days #14 caps 12/14/24 doxycycline hyclate 100 mg capsule 100 mg PO BID #14 caps 12/14/24 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 sensor (FreeStyle #6 ea 12/21/24 Anthony 3 Plus Sensor device) cyclobenzaprine 5 mg tablet 5 mg PO TID PRN muscle spasm #14 01/15/25 tabs ciclopirox 8 % topical solution 1 appl topical BEDTIME 4 weeks 01/26/25 #6.6 mL semaglutide 2 mg/dose (8 mg/3 mL) 2 mg (0.75 mL) subcut QWEEK #3 mL 02/02/25 subcutaneous pen injector (Ozempic) acetaminophen 325 mg tablet 650 mg (2 x 325 mg) PO Q6H PRN 02/10/25 (Tylenol) fever or pain #30 tabs ketorolac 10 mg tablet 10 mg PO TID PRN pain 5 days #15 02/10/25 tabs prednisone 20 mg tablet 40 mg (2 x 20 mg) PO DAILY 5 days 02/10/25 #10 tabs Allergies Allergy/AdvReac Type Severity Reaction Status Date / Time codeine (Codeine) Allergy Mild BURNING IN Verified 02/10/25 08:33 CHEST, chest pain sulfamethoxazole (From Allergy Mild ITCH,RASH Verified 02/10/25 08:33 Bactrim) [facility] Past Medical History Medical History (Updated 02/10/25 @ 09:27 by PATRICIA Steen) Nail disorder Tinea unguium Nail dystrophy Paresthesia of foot, bilateral Greater trochanteric bursitis of left hip Hyperparathyroidism DM2 (diabetes mellitus, type 2) Vitamin D deficiency 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 rheumatoid 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 SOY (obstructive sleep apnea) COPD (chronic obstructive pulmonary disease) Sicca syndrome Constipation Alopecia Sjogrens syndrome Osteoarthritis Rheumatoid arthritis Fibromyalgia Back pain Difficulty swallowing GERD (gastroesophageal reflux disease) Depression Asthma Elevated cholesterol HTN (hypertension) Surgical History History of laryngoscopy Hx of hemorrhoidectomy History of bladder suspension procedure Hx of dilation and curettage Hx of tubal ligation History of repair of left rotator cuff Hx of colonoscopy History of esophagogastroduodenoscopy (EGD) Family History Family History Father Cancer Mother Heart disease Diabetes Social History Social History Household Members: Children and Other Household Members Other:: daughter, grandkids Are you a primary foster care therapist to a significant other at home: No Do you presently have visiting nurse or other home services: No Alcohol intake: never Patient Tobacco Use Status: Never used Tobacco e-Cigarette/Vaping Use: Never Used Second Hand Smoke Exposure: No Advance Directives: No Advance Directives Information Provided: Yes Do you have a plan to hurt others: No Plan 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al status: disabled 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 Detailed physical exam and review of systems are deferred to the psychiatric aide instructor. Patient placed back in the waiting room pending room availability. Medications Administered Discontinued Medications Generic Name Dose Route Start Last Admin Trade Name Mick PRN Reason Stop Dose Admin Acetaminophen 650 mg 02/10/25 09:06 02/10/25 09:24 Acetaminophen 325 Mg Tablet PO 02/10/25 09:07 650 mg ONCE ONE Administration Ketorolac Tromethamine 15 mg 02/10/25 09:13 02/10/25 09:24 Ketorolac Tromethamine 15 Mg/Ml Vial IM 02/10/25 09:14 15 mg ONCE ONE Administration Lidocaine 1 patch 02/10/25 09:07 02/10/25 09:25 Lidocaine 4 % Patch Adh..Patch TRANSDERMA 02/10/25 09:08 1 patch ONCE ONE Administration Protocol Discharge Plan Discharge Clinical Impression: Back pain of thoracolumbar region Patient Disposition: Home, Self-Care Instructions: Acute Low Back Pain (ED), Back Pain (ED) Additional Instructions: Take your medications as prescribed. If you were prescribed antibiotics today, it is important that you take your medication to their entirety, do not skip any doses, do not finish them early. Follow-up with your primary care provider this week. Return to the emergency department with new or worsening symptoms. Such as fevers, chills, chest pain, shortness of breath, nausea, vomiting, dizziness, headache, vision changes, lethargy In case of emergency call 911 Prescriptions: New acetaminophen [Tylenol] 325 mg tablet 650 mg PO Q6H PRN (Reason: fever or pain) Qty: 30 0RF prednisone 20 mg tablet 40 mg PO DAILY 5 Days Qty: 10 0RF ketorolac 10 mg tablet 10 mg PO TID PRN (Reason: pain) 5 Days Qty: 15 0RF Rx Instructions: Tolerated IM or IV in department No Action (DME) 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 meter [FreeStyle Lite Meter] Kit See Rx Instructions miscellaneous .MEDSUPPLY Qty: 1 0RF Rx Instructions: As directed (DME) FreeStyle Lite Strips Strip See Rx Instructions .ROUTE .MEDSUPPLY Qty: 150 11RF Rx Instructions: 4 times a day (DME) lancets [TRUEplus Lancets] 33 gauge misc See Rx Instructions .ROUTE .MEDSUPPLY Qty: 120 11RF Rx Instructions: 4 times a day cholecalciferol (vitamin D3) 50 mcg (2,000 unit) capsule 50 mcg PO DAILY Qty: 90 0RF (DME) FreeStyle Anthony 3 Lizella Misc See Rx Instructions .ROUTE .MEDSUPPLY Qty: 1 0RF Rx Instructions: As directed (DME) FreeStyle Anthony 3 Plus Sensor Device See Rx Instructions .ROUTE .MEDSUPPLY Qty: 6 5RF Rx Instructions: As directed every 15 days Ozempic 2 mg/dose (8 mg/3 mL) pen injector 2 mg subcut QWEEK Qty: 3 7RF diltiazem HCl 360 mg Capsule,Extended Release 24 Hr 360 mg PO DAILY clonidine HCl 0.1 mg Tablet 0.1 mg PO BID furosemide 20 mg Tablet 20 mg PO DAILY aspirin 81 mg tablet,delayed release (DR/EC) 81 mg PO DAILY naproxen 500 mg tablet 500 mg PO BID PRN (Reason: pain) Qty: 14 0RF ondansetron 4 mg tablet,disintegrating 4 mg PO Q8H PRN (Reason: nausea and vomiting) Qty: 20 0RF docusate sodium 100 mg Capsule 100 mg PO DAILY cephalexin 500 mg capsule 500 mg PO BID 7 Days Qty: 14 0RF doxycycline hyclate 100 mg capsule 100 mg PO BID Qty: 14 0RF cyclobenzaprine 5 mg tablet 5 mg PO TID PRN (Reason: muscle spasm) Qty: 14 0RF (DME) FreeStyle Control Solution See Rx Instructions .ROUTE .MEDSUPPLY Qty: 1 2RF Rx Instructions: Twice a month sennosides [senna] 8.6 mg tablet 17.2 mg PO DAILY PRN (Reason: constipation) melatonin 5 mg tablet 10 mg PO BEDTIME PRN (Reason: Insomnia) clonazepam 0.5 mg tablet 0.5 mg PO DAILY PRN (Reason: Anxiety) leflunomide 20 mg tablet 20 mg PO DAILY loratadine 10 mg tablet 10 mg PO DAILY PRN (Reason: allergies) gabapentin 300 mg capsule 300 mg PO BID duloxetine 60 mg capsule,delayed release(DR/EC) 60 mg PO BEDTIME cevimeline 30 mg capsule 1 cap PO QAM calcium carbonate 600 mg calcium (1,500 mg) tablet 600 mg PO QAM atorvastatin 20 mg tablet 20 mg PO BEDTIME carvedilol 25 mg tablet 25 mg PO BID folic acid 1 mg tablet 1 mg PO DAILY topiramate 25 mg tablet 25 mg PO BEDTIME dapagliflozin propanediol [Farxiga] 10 mg tablet 10 mg PO DAILY Qty: 30 7RF insulin lispro [Humalog KwikPen Insulin] 100 unit/mL insulin pen 5 unit subcut DAILY Qty: 3 3RF Rx Instructions: 5 units of insulin 15 mins before breakfast (DME) pen needle, diabetic [Comfort EZ Pen Vincent] 31 gauge x 3/16 needle See Rx Instructions .Route Qty: 100 5RF Rx Instructions: As directed t inject insulin twice daily insulin glargine [Lantus Solostar U-100 Insulin] 100 unit/mL (3 mL) insulin pen 12 unit subcut QPM Qty: 3 3RF (DME) diabetic shoes and insoles See Rx Instructions .Route .MEDSUPPLY Qty: 1 0RF Rx Instructions: As directed ciclopirox 8 % solution 1 appl topical BEDTIME 28 Days Qty: 6.6 1RF hydrocortisone [Proctosol HC] 2.5 % cream with perineal applicator 1 appl NM BEDTIME PRN (Reason: hemorrhoids) Qty: 30 3RF losartan 100 mg tablet 100 mg PO DAILY acetaminophen 500 mg capsule 500 mg PO Q6H PRN albuterol sulfate 2.5 mg /3 mL (0.083 %) solution for nebulization 2.5 mg inhalation Q4-6H PRN albuterol sulfate [Ventolin HFA] 90 mcg/actuation HFA aerosol inhaler 2 puff inhalation Q6H PRN bisacodyl 5 mg tablet 5 mg PO BEDTIME biotin 5 mg tablet 5 mg PO DAILY Referrals: Emy Askew MD [Primary Care Provider, Internal Medicine] Print Language: [place]an
[2025-02-10] MEDS: Lidocaine 4 % Patch ADH..PATCH 1 PATCH TRANSDERMA (09:25)
--- NOTE | 2025-02-10 09:27 | ED.BACK ---
HPI - Back Pain/Injury General Chief Complaint: Back Pain/Injury Stated Complaint: General Medical Time Seen by Provider: 02/10/25 09:01 Source: patient Mode of arrival: ambulatory Limitations: no limitations History of Present Illness ED Provider: PATRICIA Smart HPI Narrative: Chief Complaint: ?Sharp thoracic back pain since Saturday.? History of Present Illness: 64-year-old female with a history of sacroiliac joint dysfunction, diabetes mellitus (long-term insulin use), rheumatoid arthritis, hypertension, COPD, and obstructive sleep apnea presents with atraumatic thoracic back pain that began on Saturday. Pain is constant, very sharp, worsened with movement, and relieved somewhat by rest. She denies radiation to the lower extremities, falls, or other trauma. She denies numbness, tingling, saddle anesthesia, urinary or bowel incontinence, and urinary retention. The location and character of pain are new for her; she reports her previous pain episodes were usually lower down (lumbar). She left the ED yesterday after waiting five hours without being evaluated and returns today seeking treatment options. Related Data Home Medications ?Medication ?Instructions ?Recorded ?Confirmed clonidine HCl 0.1 mg tablet 0.1 mg PO BID 12/08/19 12/10/24 diltiazem HCl 360 mg capsule,24 360 mg PO DAILY 12/08/19 12/10/24 hr,extended release furosemide 20 mg tablet 20 mg PO DAILY 12/08/19 12/10/24 aspirin 81 mg tablet,delayed 81 mg PO DAILY 05/12/20 12/10/24 release clonazepam 0.5 mg tablet 0.5 mg PO DAILY PRN Anxiety 10/29/22 12/10/24 leflunomide 20 mg tablet 20 mg PO DAILY 10/29/22 12/10/24 loratadine 10 mg tablet 10 mg PO DAILY PRN allergies 10/29/22 12/10/24 melatonin 5 mg tablet 10 mg PO BEDTIME PRN Insomnia 10/29/22 12/10/24 sennosides 8.6 mg tablet (senna) 17.2 mg PO DAILY PRN constipation 10/29/22 12/10/24 atorvastatin 20 mg tablet 20 mg PO BEDTIME 04/30/23 12/10/24 calcium carbonate 600 mg PO QAM 04/30/23 12/10/24 carvedilol 25 mg tablet 25 mg PO BID 04/30/23 12/10/24 cevimeline 30 mg capsule 1 cap PO QAM 04/30/23 12/10/24 duloxetine 60 mg capsule,delayed 60 mg PO BEDTIME 04/30/23 12/10/24 release folic acid 1 mg tablet 1 mg PO DAILY 04/30/23 12/10/24 gabapentin 300 mg capsule 300 mg PO BID 04/30/23 12/10/24 losartan 100 mg tablet 100 mg PO DAILY 02/10/24 12/10/24 topiramate 25 mg tablet 25 mg PO BEDTIME 09/21/24 12/10/24 docusate sodium 100 mg capsule 100 mg PO DAILY 12/10/24 12/10/24 acetaminophen 500 mg capsule 500 mg PO Q6H PRN 01/08/25 albuterol sulfate 2.5 mg/3 mL 2.5 mg inhalation Q4-6H PRN 01/08/25 (0.083 %) solution for nebulization albuterol sulfate 90 mcg/actuation 2 puff inhalation Q6H PRN 01/08/25 aerosol inhaler (Ventolin HFA) biotin 5 mg tablet 5 mg PO DAILY 01/08/25 bisacodyl 5 mg tablet 5 mg PO BEDTIME 01/08/25 Previous Rx's ?Medication ?Instructions ?Recorded blood glucose control high and low #1 ea 03/28/20 solution (FreeStyle Control solution) 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 meter (FreeStyle #1 ea 09/09/20 Lite Meter kit) blood sugar diagnostic (FreeStyle #150 ea 02/10/21 Lite Strips) lancets 33 gauge (TRUEplus Lancets) #120 ea 06/20/21 naproxen 500 mg tablet 500 mg PO BID PRN pain #14 tabs 07/12/21 cholecalciferol (vitamin D3) 50 50 mcg PO DAILY #90 caps 12/12/21 mcg (2,000 unit) capsule hydrocortisone 2.5 % topical cream 1 appl TN BEDTIME PRN hemorrhoids 01/15/23 with perineal applicator #30 grams (Proctosol HC) ondansetron 4 mg disintegrating 4 mg PO Q8H PRN nausea and 06/21/24 tablet vomiting #20 tabs dapagliflozin propanediol 10 mg 10 mg PO DAILY #30 tabs 09/21/24 tablet (Farxiga) 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,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,cont #1 ea 11/24/24 (FreeStyle Anthony 3 [place]) insulin glargine 100 unit/mL (3 12 unit (0.12 mL) subcut QPM #3 mL 11/24/24 mL) subcutaneous pen (Lantus Solostar U-100 Insulin) insulin lispro 100 unit/mL 5 unit (0.05 mL) subcut DAILY #3 mL 11/24/24 subcutaneous pen (Humalog KwikPen (U-100) Insulin) pen needle, diabetic 31 gauge x #100 ea 11/24/24/ (Comfort EZ Pen [place]) diabetic shoes and insoles #1 ea 11/26/24 cephalexin 500 mg capsule 500 mg PO BID 7 days #14 caps 12/14/24 doxycycline hyclate 100 mg capsule 100 mg PO BID #14 caps 12/14/24 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 sensor (FreeStyle #6 ea 12/21/24 Anthony 3 Plus Sensor device) cyclobenzaprine 5 mg tablet 5 mg PO TID PRN muscle spasm #14 01/15/25 tabs ciclopirox 8 % topical solution 1 appl topical BEDTIME 4 weeks 01/26/25 #6.6 mL semaglutide 2 mg/dose (8 mg/3 mL) 2 mg (0.75 mL) subcut QWEEK #3 mL 02/02/25 subcutaneous pen injector (Ozempic) acetaminophen 325 mg tablet 650 mg (2 x 325 mg) PO Q6H PRN 02/10/25 (Tylenol) fever or pain #30 tabs ketorolac 10 mg tablet 10 mg PO TID PRN pain 5 days #15 02/10/25 tabs prednisone 20 mg tablet 40 mg (2 x 20 mg) PO DAILY 5 days 02/10/25 #10 tabs Allergies Allergy/AdvReac Type Severity Reaction Status Date / Time codeine (Codeine) Allergy Mild BURNING IN Verified 02/10/25 08:33 CHEST, chest pain sulfamethoxazole (From Allergy Mild ITCH,RASH Verified 02/10/25 08:33 Bactrim) Review of Systems Review of Systems: Musculoskeletal: Positive for thoracic back pain, worsened with movement. Neurologic: Denies lower extremity numbness, tingling, or weakness; denies saddle anesthesia. Genitourinary: Denies urinary incontinence or retention. Constitutional: No toxicity reported; patient feels overall well. All other systems not specifically reviewed were not discussed. Yes all other systems are reviewed and are negative [facility] Past Medical History Attestation statement: The following information was validated with the patient. 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 SOY (obstructive sleep apnea) COPD (chronic obstructive pulmonary disease) Sicca syndrome Constipation Alopecia Sjogrens syndrome Osteoarthritis Rheumatoid arthritis Fibromyalgia Back pain Difficulty swallowing GERD (gastroesophageal reflux disease) Depression Asthma Elevated cholesterol HTN (hypertension) Surgical History History of laryngoscopy Hx of hemorrhoidectomy History of bladder suspension procedure Hx of dilation and curettage Hx of tubal ligation History of repair of left rotator cuff Hx of colonoscopy History of esophagogastroduodenoscopy (EGD) Family History Family History Father Cancer Mother Heart disease Diabetes Social History Social History Household Members: Children and Other Household Members Other:: daughter, grandkids Are you a primary healthcare corporate account director to a significant other at home: No Do you presently have visiting nurse or other home services: No Alcohol intake: never Patient Tobacco Use Status: Never used Tobacco e-Cigarette/Vaping Use: Never Used Second Hand Smoke Exposure: No Advance Directives: No Advance Directives Information Provided: Yes Do you have a plan to hurt others: No Plan 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al status: disabled 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 Back/Spine: Painful range of motion with rotation, flexion, and extension of thoracic spine; paraspinous tenderness bilaterally throughout thoracic region. Neurologic: Lower-extremity strength 5/5 bilaterally; negative straight-leg raise bilaterally; gait steady; coordination normal. Cardiovascular: Regular rate and rhythm. Respiratory: Lungs clear to auscultation bilaterally. Abdomen/Kidneys: No CVA tenderness. Vital Signs: Vital Signs: Last Vital Signs Temp 98.0 F 02/10/25 08:31 Pulse 90 02/10/25 08:31 Resp 18 02/10/25 08:31 BP 128/73 02/10/25 08:31 Pulse Ox 95 02/10/25 08:31 O2 Del Method Room Air 02/10/25 08:31 BMI result Body Mass Index 26.3 vss Course Reevaluation(s) Reevaluation #1: Patient feeling slightly better. She will be discharged with Toradol Tylenol and Lidoderm patch. Educated patient on diagnosis and treatment plan, answered all question, patient verbalizes understanding. At this time patient will be discharged home, advised to return with new or worsening symptoms. Educated on worrisome signs and symptoms and when to return. At this time I feel comfortable discharge home. Time: 10:30 Medications Administered Discontinued Medications Generic Name Dose Route Start Last Admin Trade Name Mick PRN Reason Stop Dose Admin Acetaminophen 650 mg 02/10/25 09:06 02/10/25 09:24 Acetaminophen 325 Mg Tablet PO 02/10/25 09:07 650 mg ONCE ONE Administration Ketorolac Tromethamine 15 mg 02/10/25 09:13 02/10/25 09:24 Ketorolac Tromethamine 15 Mg/Ml Vial IM 02/10/25 09:14 15 mg ONCE ONE Administration Lidocaine 1 patch 02/10/25 09:07 02/10/25 09:25 Lidocaine 4 % Patch Adh..Patch TRANSDERMA 02/10/25 09:08 1 patch ONCE ONE Administration Protocol Medical Decision Making Medical Decision Making MDM Narrative: Assessment & Plan 64-year-old female with new-onset, atraumatic thoracic back pain likely musculoskeletal in etiology. Exam demonstrates paraspinal tenderness and painful ROM without neurologic deficit. No red-flag symptoms identified. Imaging and treatment provided. Problem #1: Thoracic back pain, likely musculoskeletal strain Assessment: Acute sharp thoracic pain since Saturday; no neurologic compromise; exam consistent with paraspinous muscle strain. Plan: Toradol administered in ED; patient to continue at home per discharge instructions. Acetaminophen as needed for pain control. Lidoderm (lidocaine) patches prescribed for topical pain relief. Prednisone prescribed per discharge plan. Thoracic spine X-ray ordered; patient instructed that results will be communicated. ( yesterday xray of lumbar spine ordered with showed mild levoscoliosis. Mild degnerative disc disease and slight spondylolisthesis of L4 on L5 Patient counseled on musculoskeletal nature of pain. Follow-up: Recommended appointment with digital specialist; return to ED sooner for worsening pain, new neurologic symptoms, or any concerns. Problem #2: Chronic medical conditions (diabetes mellitus on insulin, rheumatoid arthritis, hypertension, COPD, obstructive sleep apnea, sacroiliac joint dysfunction) Assessment: Chronic conditions noted from history; stable, no acute issues identified during this visit. Plan: Reassured patient; continue current outpatient management with primary care and respective specialists. No changes made to chronic medication regimen today. Laboratory data relevant for visit: Urinalysis from yesterday reviewed ? negative (no evidence of UTI or pyelonephritis). Imaging data relevant for visit: Thoracic spine X-ray ordered today; results pending. Medication Reconciliation: There was a notice in the MAR regarding a potential interaction with leflunomide, which the patient was previously taking. She is no longer taking leflunomide; therefore, Toradol was administered. Differential Diagnosis Differential Diagnoses: The differential diagnosis associated with the presentation includes Musculoskeletal strain (most likely; supported by history and exam findings) Vertebral compression fracture (considering age and focal tenderness; imaging pending) Inflammatory arthritis flare (history of rheumatoid arthritis) Vertebral osteomyelitis or epidural abscess (less likely; consider due to diabetes and immunosuppression, but no systemic symptoms or neurologic deficits) Metastatic disease (remote possibility given age; no red flag symptoms or history of malignancy) Admission/Observation Consideration of admission/observation: Escalation of care including admission/observation considered Independent Interpretation I performed an independent interpretation of an: Plain X-Ray Interpretation: XR/XR lumbar spine 2-3V IMPRESSION: Mild levoscoliosis. Mild degenerative disc disease and slight spondylolisthesis of L4 on L5. Radiology Impression Discussion of test interpretation with radiology: I have reviewed the radiologist's reading. External Record Review External record reviewed: Inpatient record, Office record, Outpatient record, Prior outpatient labs, Prior outpatient radiology, Primary care record and Outside ED record Prescription Management I considered prescription management with: Pain Medication and Other Chronic Conditions Patient?s care impacted by: Diabetes, Hypertension and Other (see hpi ) Discharge Plan Discharge Clinical Impression: Back pain of thoracolumbar region Patient Disposition: Home, Self-Care Instructions: Acute Low Back Pain (ED), Back Pain (ED) Additional Instructions: Take your medications as prescribed. If you were prescribed antibiotics today, it is important that you take your medication to their entirety, do not skip any doses, do not finish them early. Follow-up with your primary care provider this week. Return to the emergency department with new or worsening symptoms. Such as fevers, chills, chest pain, shortness of breath, nausea, vomiting, dizziness, headache, vision changes, lethargy In case of emergency call 911 Prescriptions: New acetaminophen [Tylenol] 325 mg tablet 650 mg PO Q6H PRN (Reason: fever or pain) Qty: 30 0RF prednisone 20 mg tablet 40 mg PO DAILY 5 Days Qty: 10 0RF ketorolac 10 mg tablet 10 mg PO TID PRN (Reason: pain) 5 Days Qty: 15 0RF Rx Instructions: Tolerated IM or IV in department No Action (DME) 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 meter [FreeStyle Lite Meter] Kit See Rx Instructions miscellaneous .MEDSUPPLY Qty: 1 0RF Rx Instructions: As directed (DME) FreeStyle Lite Strips Strip See Rx Instructions .ROUTE .MEDSUPPLY Qty: 150 11RF Rx Instructions: 4 times a day (DME) lancets [TRUEplus Lancets] 33 gauge misc See Rx Instructions .ROUTE .MEDSUPPLY Qty: 120 11RF Rx Instructions: 4 times a day cholecalciferol (vitamin D3) 50 mcg (2,000 unit) capsule 50 mcg PO DAILY Qty: 90 0RF (DME) FreeStyle Anthony 3 [place] Misc See Rx Instructions .ROUTE .MEDSUPPLY Qty: 1 0RF Rx Instructions: As directed (DME) FreeStyle Anthony 3 Plus Sensor Device See Rx Instructions .ROUTE .MEDSUPPLY Qty: 6 5RF Rx Instructions: As directed every 15 days Ozempic 2 mg/dose (8 mg/3 mL) pen injector 2 mg subcut QWEEK Qty: 3 7RF diltiazem HCl 360 mg Capsule,Extended Release 24 Hr 360 mg PO DAILY clonidine HCl 0.1 mg Tablet 0.1 mg PO BID furosemide 20 mg Tablet 20 mg PO DAILY aspirin 81 mg tablet,delayed release (DR/EC) 81 mg PO DAILY naproxen 500 mg tablet 500 mg PO BID PRN (Reason: pain) Qty: 14 0RF ondansetron 4 mg tablet,disintegrating 4 mg PO Q8H PRN (Reason: nausea and vomiting) Qty: 20 0RF docusate sodium 100 mg Capsule 100 mg PO DAILY cephalexin 500 mg capsule 500 mg PO BID 7 Days Qty: 14 0RF doxycycline hyclate 100 mg capsule 100 mg PO BID Qty: 14 0RF cyclobenzaprine 5 mg tablet 5 mg PO TID PRN (Reason: muscle spasm) Qty: 14 0RF (DME) FreeStyle Control Solution See Rx Instructions .ROUTE .MEDSUPPLY Qty: 1 2RF Rx Instructions: Twice a month sennosides [senna] 8.6 mg tablet 17.2 mg PO DAILY PRN (Reason: constipation) melatonin 5 mg tablet 10 mg PO BEDTIME PRN (Reason: Insomnia) clonazepam 0.5 mg tablet 0.5 mg PO DAILY PRN (Reason: Anxiety) leflunomide 20 mg tablet 20 mg PO DAILY loratadine 10 mg tablet 10 mg PO DAILY PRN (Reason: allergies) gabapentin 300 mg capsule 300 mg PO BID duloxetine 60 mg capsule,delayed release(DR/EC) 60 mg PO BEDTIME cevimeline 30 mg capsule 1 cap PO QAM calcium carbonate 600 mg calcium (1,500 mg) tablet 600 mg PO QAM atorvastatin 20 mg tablet 20 mg PO BEDTIME carvedilol 25 mg tablet 25 mg PO BID folic acid 1 mg tablet 1 mg PO DAILY topiramate 25 mg tablet 25 mg PO BEDTIME dapagliflozin propanediol [Farxiga] 10 mg tablet 10 mg PO DAILY Qty: 30 7RF insulin lispro [Humalog KwikPen Insulin] 100 unit/mL insulin pen 5 unit subcut DAILY Qty: 3 3RF Rx Instructions: 5 units of insulin 15 mins before breakfast (DME) pen needle, diabetic [Comfort EZ Pen [place]] 31 gauge x 3/16 needle See Rx Instructions .Route Qty: 100 5RF Rx Instructions: As directed t inject insulin twice daily insulin glargine [Lantus Solostar U-100 Insulin] 100 unit/mL (3 mL) insulin pen 12 unit subcut QPM Qty: 3 3RF (DME) diabetic shoes and insoles See Rx Instructions .Route .MEDSUPPLY Qty: 1 0RF Rx Instructions: As directed ciclopirox 8 % solution 1 appl topical BEDTIME 28 Days Qty: 6.6 1RF hydrocortisone [Proctosol HC] 2.5 % cream with perineal applicator 1 appl TN BEDTIME PRN (Reason: hemorrhoids) Qty: 30 3RF losartan 100 mg tablet 100 mg PO DAILY acetaminophen 500 mg capsule 500 mg PO Q6H PRN albuterol sulfate 2.5 mg /3 mL (0.083 %) solution for nebulization 2.5 mg inhalation Q4-6H PRN albuterol sulfate [Ventolin HFA] 90 mcg/actuation HFA aerosol inhaler 2 puff inhalation Q6H PRN bisacodyl 5 mg tablet 5 mg PO BEDTIME biotin 5 mg tablet 5 mg PO DAILY Referrals: [facility] [Provider Group, Physiatry] - 1 week Emy Askew MD [Primary Care Provider, Internal Medicine] Stand Alone Forms: Work/School Release Print Language: Citizen Of [place]
[2025-02-10 10:34] VITALS: BP 128/73; PULSE 90; RESP 18; TEMP 36.7; O2SAT 95
== END 2025-02-10 10:34 | disposition home or self-care (01) ==
PROVIDERS: Emergency Provider Emergency Medicine; PCP Student in an Organized Health Care Education/Training Program
DX: M54.6 Pain in thoracic spine (principal); I10 Essential (primary) hypertension; E11.9 Type 2 diabetes mellitus without complications; E78.00 Pure hypercholesterolemia, unspecified; Z79.4 Long term (current) use of insulin; Z79.02 Long term (current) use of antithrombotics/antiplatelets; Z79.899 Other long term (current) drug therapy
CPT/HCPCS: 72072; 96372; 99283; 99284; J1885

== ENCOUNTER → 2025-02-10 09:06 | Outpatient (BNV) | payer OTHER, SELFPAY | PROVIDERS: Emergency Provider Emergency Medicine; PCP Student in an Organized Health Care Education/Training Program; Visit Provider Radiology Diagnostic Radiology | DX: M47.815 Spondylosis without myelopathy or radiculopathy, thoracolumbar region (principal); M41.85 Other forms of scoliosis, thoracolumbar region | CPT/HCPCS: 72072 ==

== ENCOUNTER 2025-02-22 18:41 | Emergency (ER) | payer OTHER, SELFPAY ==
--- NOTE | ~2025-02-22 | XR_ITS ---
CLINICAL HISTORY: Chest pain 2 view chest x-ray Comparison: CR - XR CHEST 2V - 11/12/2024 05:53 PM EDT Findings: The lungs are clear. Normal size heart. No acute fracture. IMPRESSION: 1. No acute findings. This document has been electronically signed by: Yogesh Suarez MD on 02/22/2025 20:16:57
--- NOTE | 2025-02-22 18:43 | ECG_ITS ---
Test Reason : cp Blood Pressure : */* mmHG Vent. Rate : 87 BPM Atrial Rate : 87 BPM P-R Int : 158 ms QRS Dur : 96 ms QT Int : 372 ms P-R-T Axes : 33 -33 58 degrees QTcB Int : 447 ms Normal sinus rhythm Left axis deviation Moderate voltage criteria for LVH, may be normal variant ( R in aVL , Juda product ) Abnormal ECG When compared with ECG of 12-Nov-2024 16:56, No significant change was found Referred By: Generic ED Physician Electronically Signed By: JANES JEFFREY MD
[2025-02-22 19:07] VITALS: BP 145/89; PULSE 86; RESP 18; TEMP 36.1; O2SAT 96; BMI 27.2
--- NOTE | 2025-02-22 19:10 | ED.GENADULT ---
HPI - General Adult General Chief complaint: Chest Pain Stated complaint: Chest pain Time Seen by Provider: 02/22/25 23:37 Source: patient, RN notes reviewed and old records reviewed Mode of arrival: ambulatory Limitations: no limitations History of Present Illness ED Provider: Alejo HPI narrative: 64-year-old female with a past medical history significant for COPD, obstructive sleep apnea, hypertension, hyperlipidemia, diabetes type 2, osteoarthritis presents for evaluation of chest pain. Patient reports her chest pain started around 5:00 p.m., about 7 hours prior to my evaluation. She reports that she was lying down watching TV when the pain started. She was not exerting herself in August reports that she was not eating prior to that The pain is reproducible when she pushes on her chest or when she moves. She denies any abdominal pain, nausea, vomiting No shortness of breath pain Denies any swelling in her legs. Related Data Home Medications ?Medication ?Instructions ?Recorded ?Confirmed diltiazem HCl 360 mg capsule,24 360 mg PO DAILY 12/08/19 12/10/24 hr,extended release aspirin 81 mg tablet,delayed 81 mg PO DAILY 05/12/20 12/10/24 release clonazepam 0.5 mg tablet 0.5 mg PO DAILY PRN Anxiety 10/29/22 12/10/24 leflunomide 20 mg tablet 20 mg PO DAILY 10/29/22 12/10/24 loratadine 10 mg tablet 10 mg PO DAILY PRN allergies 10/29/22 12/10/24 melatonin 5 mg tablet 10 mg PO BEDTIME PRN Insomnia 10/29/22 12/10/24 sennosides 8.6 mg tablet (senna) 17.2 mg PO DAILY PRN constipation 10/29/22 12/10/24 atorvastatin 20 mg tablet 20 mg PO BEDTIME 04/30/23 12/10/24 calcium carbonate 600 mg PO QAM 04/30/23 12/10/24 carvedilol 25 mg tablet 25 mg PO BID 04/30/23 12/10/24 cevimeline 30 mg capsule 1 cap PO QAM 04/30/23 12/10/24 duloxetine 60 mg capsule,delayed 60 mg PO BEDTIME 04/30/23 12/10/24 release folic acid 1 mg tablet 1 mg PO DAILY 04/30/23 12/10/24 gabapentin 300 mg capsule 300 mg PO BID 04/30/23 12/10/24 losartan 100 mg tablet 100 mg PO DAILY 02/10/24 12/10/24 docusate sodium 100 mg capsule 100 mg PO DAILY 12/10/24 12/10/24 acetaminophen 500 mg capsule 500 mg PO Q6H PRN 01/08/25 albuterol sulfate 2.5 mg/3 mL 2.5 mg inhalation Q4-6H PRN 01/08/25 (0.083 %) solution for nebulization albuterol sulfate 90 mcg/actuation 2 puff inhalation Q6H PRN 01/08/25 aerosol inhaler (Ventolin HFA) biotin 5 mg tablet 5 mg PO DAILY 01/08/25 bisacodyl 5 mg tablet 5 mg PO BEDTIME 01/08/25 clonidine HCl 0.2 mg tablet 0.2 mg PO 02/24/25 furosemide 40 mg tablet 40 mg PO QAM 02/24/25 lidocaine 5 % topical patch patch topical 02/24/25 potassium chloride 20 mEq 20 meq PO BID 02/24/25 tablet,extended release(part/cryst) trazodone 100 mg tablet 50 - 100 mg PO BEDTIME PRN insomnia 02/24/25 Previous Rx's ?Medication ?Instructions ?Recorded blood glucose control high and low #1 ea 03/28/20 solution (FreeStyle Control solution) 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 meter (FreeStyle #1 ea 09/09/20 Lite Meter kit) blood sugar diagnostic (FreeStyle #150 ea 02/10/21 Lite Strips) lancets 33 gauge (TRUEplus Lancets) #120 ea 06/20/21 naproxen 500 mg tablet 500 mg PO BID PRN pain #14 tabs 07/12/21 cholecalciferol (vitamin D3) 50 50 mcg PO DAILY #90 caps 12/12/21 mcg (2,000 unit) capsule hydrocortisone 2.5 % topical cream 1 appl KS BEDTIME PRN hemorrhoids 01/15/23 with perineal applicator #30 grams (Proctosol HC) ondansetron 4 mg disintegrating 4 mg PO Q8H PRN nausea and 06/21/24 tablet vomiting #20 tabs dapagliflozin propanediol 10 mg 10 mg PO DAILY #30 tabs 09/21/24 tablet (Farxiga) 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,claim representative,cont #1 ea 11/24/24 (FreeStyle Anthony 3 Ravia) insulin glargine 100 unit/mL (3 12 unit (0.12 mL) subcut QPM #3 mL 11/24/24 mL) subcutaneous pen (Lantus Solostar U-100 Insulin) insulin lispro 100 unit/mL 5 unit (0.05 mL) subcut DAILY #3 mL 11/24/24 subcutaneous pen (Humalog KwikPen (U-100) Insulin) pen needle, diabetic 31 gauge x #100 ea 11/24/24/ (Comfort EZ Pen Cascade) diabetic shoes and insoles #1 ea 11/26/24 cephalexin 500 mg capsule 500 mg PO BID 7 days #14 caps 12/14/24 doxycycline hyclate 100 mg capsule 100 mg PO BID #14 caps 12/14/24 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 sensor (FreeStyle #6 ea 12/21/24 Anthony 3 Plus Sensor device) cyclobenzaprine 5 mg tablet 5 mg PO TID PRN muscle spasm #14 01/15/25 tabs ciclopirox 8 % topical solution 1 appl topical BEDTIME 4 weeks 01/26/25 #6.6 mL semaglutide 2 mg/dose (8 mg/3 mL) 2 mg (0.75 mL) subcut QWEEK #3 mL 02/02/25 subcutaneous pen injector (Ozempic) acetaminophen 325 mg tablet 650 mg (2 x 325 mg) PO Q6H PRN 02/10/25 (Tylenol) fever or pain #30 tabs ketorolac 10 mg tablet 10 mg PO TID PRN pain 5 days #15 02/10/25 tabs prednisone 20 mg tablet 40 mg (2 x 20 mg) PO DAILY 5 days 02/10/25 #10 tabs topiramate 25 mg tablet 25 mg PO BEDTIME #90 tabs 02/18/25 Allergies Allergy/AdvReac Type Severity Reaction Status Date / Time codeine (Codeine) Allergy Mild BURNING IN Verified 02/22/25 19:10 CHEST, chest pain sulfamethoxazole (From Allergy Mild ITCH,RASH Verified 02/22/25 19:10 Bactrim) Review of Systems Constitutional: Constitutional: Reports as per HPI, Denies chills, Denies fatigue, Denies fever(s) and Denies headache(s) ENT: Denies headache(s) Cardiovascular: Cardiovascular: Reports chest pain, Reports chest pain at rest and Denies dyspnea Respiratory: Respiratory: Denies cough and Denies dyspnea Gastrointestinal: Gastrointestinal: Denies abdominal pain, Denies constipation and Denies vomiting Genitourinary: Genitourinary: Denies dysuria Neurologic: Denies headache(s) and Denies focal weakness Endocrine: Endocrine: Denies fatigue PENDING SALE TO [facility] Past Medical History Medical History (Updated 02/24/25 @ 00:01 by Christophe Evans) Nail disorder Tinea unguium Nail dystrophy Paresthesia of foot, bilateral Greater trochanteric bursitis of left hip Hyperparathyroidism DM2 (diabetes mellitus, type 2) Vitamin D deficiency 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 SOY (obstructive sleep apnea) COPD (chronic obstructive pulmonary disease) Sicca syndrome Constipation Alopecia Sjogrens syndrome Osteoarthritis Rheumatoid arthritis Fibromyalgia Back pain Difficulty swallowing GERD (gastroesophageal reflux disease) Depression Asthma Elevated cholesterol HTN (hypertension) Surgical History History of laryngoscopy Hx of hemorrhoidectomy History of bladder suspension procedure Hx of dilation and curettage Hx of tubal ligation History of repair of left rotator cuff Hx of colonoscopy History of esophagogastroduodenoscopy (EGD) Family History Family History Father Cancer Mother Heart disease Diabetes Social History Social History Household Members: Children and Other Household Members Other:: daughter, grandkids Are you a primary overnight caregiver to a significant other at home: No Do you presently have visiting nurse or other home services: No Alcohol intake: never Patient Tobacco Use Status: Never used Tobacco Smoked in Last 30 Days: No e-Cigarette/Vaping Use: Never Used Second Hand Smoke Exposure: No Use of substances other than those prescribed or required for medical reasons: No Advance Directives: No Advance Directives Information Provided: Yes Do you have a plan to hurt others: No Plan 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al status: disabled 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 Physical Exam ED Vital Signs: Vital Signs - 24 hr 02/22/25 19:07 Temperature 97 F Pulse Rate 86 Respiratory Rate 18 Blood Pressure 145/89 H Pulse Oximetry 96 Oxygen Delivery Method Room Air BMI result Body Mass Index 27.2 Const General: healthy appearing, comfortable, no acute distress, alert and awake Nutritional Appearance: well nourished Orientation/consciousness: patient oriented x3 HENMT Head: Yes normocephalic and Yes atraumatic Eyes Eyelids: Yes eyelids normal Conjunctivae: conjunctivae normal Sclerae: sclerae normal Corneas: corneas normal Pupils: Equal, round and reactive pupils present EOM: EOMs intact bilaterally Neck Neck: Yes full ROM Chest Other: Tenderness to palpation of most of the anterior chest wall. No deformity or crepitus Chest palpation & inspection: normal inspection of the chest and no crepitus Resp Effort & Inspection: normal respiratory effort, able to speak in complete sentences, no audible wheezes and not labored Auscultation: clear to auscultation bilaterally Cardio Rate: regular rate Rhythm: regular rhythm GI Inspection: No distended Palpation (GI): Soft to palpation, not firm, nontender, no guarding and not rigid Skin General skin exam: no rashes or lesions noted and elasticity normal Neuro General: patient oriented x3 Cranial nerves: Yes Equal, round and reactive pupils present and Yes Bilaterally intact EOM present Cognition (Neuro): normal cognition Extrem Other: Moving all extremities well without any obvious deformities Course Course Course Narrative: RmE; 64-year-old female presents to ED for left-sided chest pain for the past couple of hours. Patient states history of hypertension. EKG labs x-ray ordered Medications Administered Discontinued Medications Generic Name Dose Route Start Last Admin Trade Name Freq PRN Reason Stop Dose Admin Ketorolac Tromethamine 15 mg 02/23/25 00:05 02/23/25 00:21 Ketorolac Tromethamine 15 Mg/Ml Vial IVPUSH 02/23/25 00:06 15 mg ONCE ONE Administration Medical Decision Making Medical Decision Making MDM Narrative: 64-year-old female presents for evaluation of chest pain that started 7 hours prior to my evaluation. Her EKG is nonischemic. She has had a a troponin and a 2nd troponin drawn several hours later, both of which are negative. She rules out for ACS. Her chest pain is also reproducible on exam. This is highly suspicious for a musculoskeletal origin of the pain. She had a chest x-ray ordered that does not show any evidence of pneumonia, pleural effusion or pneumothorax. She has no abdominal pain, tenderness, no nausea or vomiting to suggest an upper GI cause of her chest pain. We will treat her pain with ketorolac Differential Diagnosis Differential Diagnoses: The differential diagnosis associated with the presentation includes Muscle strain Chest wall pain Costochondritis GERD ACS Bronchitis Admission/Observation Consideration of admission/observation: Escalation of care including admission/observation considered Patient ruled out for ACS Lab Data MDM Lab Attestation statement: I reviewed the patient's lab results. No leukocytosis or anemia. Normal platelet count. No electrolyte abnormalities warranting intervention. Troponin negative x2 02/22/25 19:39 02/22/25 19:39 Labs: Lab Results 02/22/25 02/22/25 Range/Units 19:39 23:13 WBC 10.0 (4.8-10.8) X10*3/uL RBC 4.85 (4.20-5.50) X10*6/uL Hgb 14.0 (12.0-16.0) g/dl Hct 42.2 (37.0-47.0) % MCV 87.0 (80.0-98.0) fL MCH 28.9 (27.0-33.0) pg MCHC 33.2 (31.0-35.0) g/dl RDW 13.5 (11.0-16.0) % Plt Count 285 (160-400) X10*3/uL MPV 9.5 (9.4-12.3) fL Immature Gran % (Auto) 0.5 H (0.0-0.4) % Neut % (Auto) 46.7 (45-73) % Lymph % (Auto) 35.5 (20-40) % Morton % (Auto) 13.6 H (2-11) % Eos % (Auto) 3.1 (0-4) % Baso % (Auto) 0.6 (0-2) % Lymph # (Auto) 3.5 (1.2-4.9) X10*3/uL Morton # (Auto) 1.4 H (0.1-1.2) X10*3/uL Eos # (Auto) 0.3 (0.0-0.4) X10*3/uL Baso # (Auto) 0.1 (0.0-0.2) X10*3/uL Abs Immat Gran (auto) 0.05 H (0.00-0.03) X10*3/uL Absolute Neuts (auto) 4.7 (2.0-8.3) x10*3/uL Absolute Nucleated RBC 0.000 (0.0-0.012) X10*3/uL Nucleated RBC % (auto) 0.0 (0.0-0.2) /100WBC Sodium 142 (135-145) mmol/L Potassium 3.6 (3.3-5.1) mmol/L Chloride 105 (96-108) mmol/L Carbon Dioxide 25 (22-29) mmol/L Anion Gap 16 (12-20) BUN 15 (9-16) mg/dL Creatinine 0.78 (0.5-1.4) mg/dL Estim Creat Clear Calc 63.9 Estimated GFR > 60 Random Glucose 149 H (60-115) mg/dL Calcium 9.6 (8.4-10.2) mg/dL Total Bilirubin 0.2 (0.0-1.0) mg/dL AST 23 (5-31) U/L ALT 18 (0-31) U/L Alkaline Phosphatase 150 H (39-117) U/L Troponin I High Sens < 2.7 < 2.7 (<3.5-17.0) ng/L NT-Pro-B Natriuret Pep 75.1 (<300) pg/mL Total Protein 7.9 (6.5-8.0) g/dL Albumin 4.2 (3.5-5.0) g/dL Independent Interpretation I performed an independent interpretation of an: EKG and Plain X-Ray (No focal infiltrates) Interpretation: Normal sinus rhythm with a rate of 87 beats per minute. No significant change when compared to previous from November 12, 2024. Nonischemic EKG Radiology Impression Discussion of test interpretation with radiology: I have reviewed the radiologist's reading. Radiologist Impression: Findings: The lungs are clear. Normal size heart. No acute fracture. IMPRESSION: 1. No acute findings. This document has been electronically signed by: Yogesh Suarez MD on 02/22/2025 20:16:57 Discharge Plan Discharge Clinical Impression: Atypical chest pain Patient Disposition: Home, Self-Care Instructions: Chest Pain (ED) Additional Instructions: Your workup in the ER today was reassuring. This includes your EKG, labs, chest x-ray. Your pain is most likely related to a musculoskeletal origin such as a chest wall strain. You may use over the Tylenol as needed for pain Follow up with the primary doctor, return for new or worsening symptoms Prescriptions: No Action (DME) 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 meter [FreeStyle Lite Meter] Kit See Rx Instructions miscellaneous .MEDSUPPLY Qty: 1 0RF Rx Instructions: As directed (DME) FreeStyle Lite Strips Strip See Rx Instructions .ROUTE .MEDSUPPLY Qty: 150 11RF Rx Instructions: 4 times a day (DME) lancets [TRUEplus Lancets] 33 gauge misc See Rx Instructions .ROUTE .MEDSUPPLY Qty: 120 11RF Rx Instructions: 4 times a day cholecalciferol (vitamin D3) 50 mcg (2,000 unit) capsule 50 mcg PO DAILY Qty: 90 0RF (DME) FreeStyle Anthony 3 Ravia Misc See Rx Instructions .ROUTE .MEDSUPPLY Qty: 1 0RF Rx Instructions: As directed (DME) FreeStyle Anthony 3 Plus Sensor Device See Rx Instructions .ROUTE .MEDSUPPLY Qty: 6 5RF Rx Instructions: As directed every 15 days Ozempic 2 mg/dose (8 mg/3 mL) pen injector 2 mg subcut QWEEK Qty: 3 7RF topiramate 25 mg tablet 25 mg PO BEDTIME Qty: 90 0RF diltiazem HCl 360 mg Capsule,Extended Release 24 Hr 360 mg PO DAILY aspirin 81 mg tablet,delayed release (DR/EC) 81 mg PO DAILY naproxen 500 mg tablet 500 mg PO BID PRN (Reason: pain) Qty: 14 0RF acetaminophen [Tylenol] 325 mg tablet 650 mg PO Q6H PRN (Reason: fever or pain) Qty: 30 0RF prednisone 20 mg tablet 40 mg PO DAILY 5 Days Qty: 10 0RF ketorolac 10 mg tablet 10 mg PO TID PRN (Reason: pain) 5 Days Qty: 15 0RF Rx Instructions: Tolerated IM or IV in department ondansetron 4 mg tablet,disintegrating 4 mg PO Q8H PRN (Reason: nausea and vomiting) Qty: 20 0RF docusate sodium 100 mg Capsule 100 mg PO DAILY cephalexin 500 mg capsule 500 mg PO BID 7 Days Qty: 14 0RF doxycycline hyclate 100 mg capsule 100 mg PO BID Qty: 14 0RF cyclobenzaprine 5 mg tablet 5 mg PO TID PRN (Reason: muscle spasm) Qty: 14 0RF (DME) FreeStyle Control Solution See Rx Instructions .ROUTE .MEDSUPPLY Qty: 1 2RF Rx Instructions: Twice a month sennosides [senna] 8.6 mg tablet 17.2 mg PO DAILY PRN (Reason: constipation) melatonin 5 mg tablet 10 mg PO BEDTIME PRN (Reason: Insomnia) clonazepam 0.5 mg tablet 0.5 mg PO DAILY PRN (Reason: Anxiety) leflunomide 20 mg tablet 20 mg PO DAILY loratadine 10 mg tablet 10 mg PO DAILY PRN (Reason: allergies) gabapentin 300 mg capsule 300 mg PO BID duloxetine 60 mg capsule,delayed release(DR/EC) 60 mg PO BEDTIME cevimeline 30 mg capsule 1 cap PO QAM calcium carbonate 600 mg calcium (1,500 mg) tablet 600 mg PO QAM atorvastatin 20 mg tablet 20 mg PO BEDTIME carvedilol 25 mg tablet 25 mg PO BID folic acid 1 mg tablet 1 mg PO DAILY dapagliflozin propanediol [Farxiga] 10 mg tablet 10 mg PO DAILY Qty: 30 7RF insulin lispro [Humalog KwikPen Insulin] 100 unit/mL insulin pen 5 unit subcut DAILY Qty: 3 3RF Rx Instructions: 5 units of insulin 15 mins before breakfast (DME) pen needle, diabetic [Comfort EZ Pen Cascade] 31 gauge x 3/16 needle See Rx Instructions .Route Qty: 100 5RF Rx Instructions: As directed t inject insulin twice daily insulin glargine [Lantus Solostar U-100 Insulin] 100 unit/mL (3 mL) insulin pen 12 unit subcut QPM Qty: 3 3RF (DME) diabetic shoes and insoles See Rx Instructions .Route .MEDSUPPLY Qty: 1 0RF Rx Instructions: As directed ciclopirox 8 % solution 1 appl topical BEDTIME 28 Days Qty: 6.6 1RF hydrocortisone [Proctosol HC] 2.5 % cream with perineal applicator 1 appl KS BEDTIME PRN (Reason: hemorrhoids) Qty: 30 3RF losartan 100 mg tablet 100 mg PO DAILY acetaminophen 500 mg capsule 500 mg PO Q6H PRN albuterol sulfate 2.5 mg /3 mL (0.083 %) solution for nebulization 2.5 mg inhalation Q4-6H PRN albuterol sulfate [Ventolin HFA] 90 mcg/actuation HFA aerosol inhaler 2 puff inhalation Q6H PRN bisacodyl 5 mg tablet 5 mg PO BEDTIME biotin 5 mg tablet 5 mg PO DAILY furosemide 40 mg tablet 40 mg PO QAM clonidine HCl 0.2 mg tablet 0.2 mg PO potassium chloride 20 mEq tablet,ER particles/crystals 20 meq PO BID trazodone 100 mg tablet 50 - 100 mg PO BEDTIME PRN (Reason: insomnia) lidocaine 5 % adhesive patch,medicated topical Interventions: ED Discharge Assessment Last Done: 02/23/25 01:33 Discharge Date/Time: 02/23/25 01:33 Print Language: Tunisian
--- OUTSIDE RECORDS SUMMARY | 2025-02-22 19:38 | XMS_ITS | Encounter Summary ---
Author Organization [employer] Address [address] [place] [address] Care Team Providers Care Warehouse Administrator Name Role Phone Emy Askew MD Primary Care Pro vider Encounter Details Date Type Department Care Team ([facility] st Contact Info) Description 08/07/2023 Orders Only [facility] [address] [place] [address] Valeria Armas FNP [address] [place] [address] Social History Tobacco Use Types Packs/Day Years [...] EST Office Visit [facility] [address] [place] [address] Tobias, Rachel, OD [address] [place] [address] 05/06/2025 10:15 AM EST Office Visit [facility] [address] [place] [address] Emy Askew MD [address] [place] [address] documented as of this encounter Visit Diagnoses Not on filedocumented in this encounter Additional Health Concerns Assessment Noted Time PHQ-9 Depression Total Score: 16 023 10:16 AM EDT documented as of this encounter Care Teams Warehouse Administrator Relationship Specialty Start Date End Date Emy Askew MD [address] [place] [address] PCP - General Internal Medicine 07/25/22 documented as of this encounter
--- OUTSIDE RECORDS SUMMARY | 2025-02-22 19:38 | XMS_ITS | Encounter Summary ---
Author Organization [employer] Address [address] [place] [address] Care Team Providers Care Fish Icer Name Role Phone Kenya Sol FOOD CASHIER Primary Care Provider [phone] Emy Askew MD Primary Care Pro vider Encounter Details Date Type Department Care Team (Late Contact Info) Description 05/28/2022 Orders Only [facility] [address] [place], [place] [phone] Candy Miller LPN Social History Tobacco Use [...] Description 03/19/2025 9:30 AM EST Office Visit [facility] [address] [place], [place] [phone] Tobias, Rachel, OD [address] [place], [place] [phone] 05/06/2025 10:15 AM EST Office Visit [facility] [address] [place] [address] Emy Askew MD [address] [place] [phone] documented as of this encounter Visit Diagnoses Not on filedocumented in this encounter Care Teams Fish Icer Relationship Specialty Start Date End Date EbenezerKenya FNP [address] [place] [id number] PCP - General Family Medicine 01/22/22 07/24/22 Emy Askew MD [address] [place] [id number] PCP - General Internal Medicine 07/25/22 documented as of this encounter
--- OUTSIDE RECORDS SUMMARY | 2025-02-22 19:38 | XMS_ITS | Encounter Summary ---
Author Organization [employer] Address [address] [place] [address] Care Team Providers Care Bulb Inspector Name Role Phone Emy Askew MD Primary Care Pro vider Encounter Details Date Type Department Care Team ([facility] st Contact Info) Description 02/23/2024 Orders Only [facility] [address] [place] [address] Provider, MD Waylon Social History Tobacco Use [...] 03/19/2025 9:30 AM EST Office Visit [facility] [address] [place] [address] Rachel Collado, OD [address] [place] [address] 05/06/2025 10:15 AM EST Office Visit [facility] [address] [place] [address] Emy Askew MD [address] [place] [address] documented as of this encounter Procedures Procedure [...] documented as of this encounter Care Teams Bulb Inspector Relationship Specialty Start Date End Date Emy Askew MD [address] [place] [phone] PCP - General Internal Medicine 07/25/22 documented as of this encounter
--- OUTSIDE RECORDS SUMMARY | 2025-02-22 19:38 | XMS_ITS | Clinical Summary ---
Author Organization [facility] Address [address] [place] [address] Phone Care Team Providers Care Nurs[employer] Executive Director Name Role Phone Mark Foote MD Primary [...] topic Medical Devices Not on file Insurance [place] [address] C3 [employer] [facility] C3 ACO C3 ACO C3 ACO C3 ACO Care Teams Nurses' Association Executive Director Relationship Specialty Start Date End Date Mark Foote MD [address] [place] [id number] PCP - General Pediatrics 10/15/19 Additional Source Comments The information contained in this document represents components of the legal health record. It is not the complete legal health record.[facility]
--- OUTSIDE RECORDS SUMMARY | 2025-02-22 19:38 | XMS_ITS | Encounter Summary ---
Author Organization [employer] Address [address] [place] [address] Care Team Providers Care [place] [employer] Lieutenant Name Role Phone Emy Askew MD Primary Care Pro vider Reason for Visit * Reason Onset Date Comments Triage 07/31/2022 Encounter Details Date Type Department Care Team ([facility] st Contact Info) Description 07/31/2022 Telephone [facility] [address] [place] [address] Emy Askew MD [address] [place] [address] Triage Social History Tobacco Use Types Packs/Day [...] The caller accepted this outcome Patient speaks kinyarwanda. documented in this encounter Plan of Treatment Upcoming Encounters Date Type Department Care Team (Late st Contact Info) Description 03/19/2025 9:30 AM EST Office Visit [facility] [address] [place], [place] [phone] Rachel Collado, OD [address] [place] [address] 05/06/2025 10:15 AM EST Office Visit [facility] [address] [place] [address] Emy Askew MD [address] [place] [address] documented as of this encounter Visit Diagnoses Not on filedocumented in this encounter Care Teams [employer] Lieutenant Relationship Specialty Start Date End Date Emy Askew MD [address] [place], [place] [phone] PCP - General Internal Medicine 07/25/22 documented as of this encounter
--- OUTSIDE RECORDS SUMMARY | 2025-02-22 19:38 | XMS_ITS | Encounter Summary ---
Author Organization [employer] Address [address] [place] [address] Care Team Providers Care Electrical Controls Engineer Name Role Phone Emy Askew MD Primary Care Pro vider Reason for Visit * Reason Onset Date Comments pre-op paperwork 10/18/2022 Encounter Details Date Type Department Care Team ([facility] st Contact Info) Description 10/18/2022 Telephone [facility] MEDICINE [address] [place] [address] Emy Askew MD [address] [place] [address] pre-op paperwork Social History Tobacco Use Types [...] methotrexate and leflunomide??( if ok with her vascular nurse)-pt to confirm and Cymbalta if taking in am. Hold am of surgery lasix,amytriptiline,lisinopril ??.HoldASA 5 days prior procedure and avoid NSAIDS 7 days prior procedure. Thanks documented in this encounter Plan of Treatment Upcoming Encounters Date Type Department Care Team (Late st Contact Info) Description 03/19/2025 9:30 AM EST Office Visit [facility] OPTOMETRY [address] [place] [address] Rachel Collado, OD [address] [place] [address] 05/06/2025 10:15 AM EST Office Visit [facility] MEDICINE [address] [place], [place] [phone] Emy Askew MD [address] [place] [address] documented as of this encounter Visit Diagnoses Not on filedocumented in this encounter Additional Health Concerns Assessment Noted Time PHQ-9 Depression Total Score: 16 023 10:16 AM EDT documented as of this encounter Care Teams Electrical Controls Engineer Relationship Specialty Start Date End Date Emy Askew MD [address] [place] [address] PCP - General Internal Medicine 07/25/22 documented as of this encounter
--- OUTSIDE RECORDS SUMMARY | 2025-02-22 19:38 | XMS_ITS | Encounter Summary ---
Author Organization [employer] Address [address] [place] [address] [address] [place] [address] Care Team Providers Care Lithograph Press Operator Tinware Name Role Phone [facility] Primary Care Provider [phone] Emy Askew MD Primary Care Pro vider Reason for Visit * Reason Onset Date Comments Appointment Request 06/07/2022 Encounter Details Date Type Department Care Team ([facility] st Contact Info) Description 06/07/2022 Telephone [facility] MEDICINE [address] [place] [address] [facility] [address] [place] [address] Appointment Request Social History Tobacco Use Types [...] with new provider. Please contact pt at [phone] documented in this encounter Plan of Treatment Upcoming Encounters Date Type Department Care Team (Late st Contact Info) Description 03/19/2025 9:30 AM EST Office Visit [facility] OPTOMETRY [address] [place], [place] [phone] Rachel Collado, OD [address] [place] [address] 05/06/2025 10:15 AM EST Office Visit [facility] MEDICINE [address] [place] [address] Emy Askew MD [address] [place] [address] documented as of this encounter Visit Diagnoses Not on filedocumented in this encounter Care Teams Lithograph Press Operator Tinware Relationship Specialty Start Date End Date Kenya Sol, SCANNING CLERK [address] [place] [address] PCP - General Family Medicine 01/22/22 07/24/22 Emy Askew MD [address] [place] [address] PCP - General Internal Medicine 07/25/22 documented as of this encounter
--- OUTSIDE RECORDS SUMMARY | 2025-02-22 19:38 | XMS_ITS | Data Portability ---
Author Organization [place] [facility], Allergy Address [address] [place] [phone] Assessment No assessment recorded. Plan of Treatment Reminders Order Date Submit Date Provider Last Modified By Organization Details Last Modified Time Details Appointments None recorded. Lab None recorded. Referral None recorded. Procedures None recorded. Surgeries None recorded. Imaging [place], modified barium swallow study [address] [place] [address] [facility] Dept, [address] [place] [address], [place], [address], 5 11:51:40 Medication Orders None recorded. Patient TargetsNo targets recorded. Patient InstructionsNo instructions recorded. Reason for Referral None Reported. 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 Diseases of the salivary glands: Hypertroph y; CMS Risk: moderate risk CMS Treatment: establishe d problem (to examiner): stable or improved N ote: Date Diagnosed: 12/30/2013 2:35 PM (527.1) Not Available [facility] 4 02:27:37 Chronic sialadeni tis 203566947 Active 2016 Chronic sialoadeni tis; Note: Date Diagnosed: 07/04/2016 2:17 PM (K11.23) Not Available [facility] 4 02:27:48 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]; Note: Date Diagnosed: 07/04/2016 2:17 PM (M35.0) Not Available [facility] 4 02:27:47 Dysphonia 94298889 Active 2017 Hoarseness ; Note: Date Diagnosed: 02/17/2018 9:52 AM (R49.0) Not Available [facility] 4 02:27:44 Dysphagia 88520915 Active 2018 Other dysphagia; Note: Date Diagnosed: 05/13/2018 9:47 AM (R13.19) Not Available [facility] 4 02:27:43 Disturban ce of salivary secretion 14260597 Active 2018 Xerostomia ; Note: Date Diagnosed: 05/13/2018 9:47 AM (K11.7) Not Available [facility] 4 02:27:54 Bilateral hearing loss 69011097 Active 2018 Other specified hearing loss, bilateral; Note: Date Diagnosed: 08/12/2018 10:01 AM (H91.8X3) Not Available [facility] 4 02:27:41 Oropharyn geal dysphagia 74746657 Active 2024 UMESH DIAZ MD [address] [place] [address], [place], [address] , [facility] 5 13:35:47 Problem Notes None recorded. Procedures Surgical History Date Name Laterality Status Provider Name and Address Organization Details Recorded Time 03/13/2024 FFL_RE completed UMESH DIAZ MD [address] [place] [address], [phone], [facility] 03/13/2024 13:36:13 Imaging Results None recorded. Procedure Notes None recorded. Medical Equipment None Reported. Allergies Allergen ID Allergen Name Allergen Category Reaction Reaction Severity Criticality Documentation Date Start Date Code Code System Note Provider Name and Address Organization Details Recorded Time 65163 Bactrim medicatio n other Not available Not available 07/16/2023 94192 9 RxNorm React ion: unkno wn, unspe cifie d;; Not Available [facility] 4 00:55:51 65524 codeine sulfate medicatio n other Not available Not available 07/16/2023 00022 RxNorm React ion: unkno wn, unspe cifie d;; Not Available [facility] 4 00:55:56 Medications Name Sig Start Date Stop Date Status Note LastModified by Organization Details LastModified Time medbox status USE DIRECTED active Not Available Not Available No t Available furosemid e 40 mg tablet TAKE 1 TABLET BY MOUTH EVERY MORNING active Not Available Not Available No t Available Augmentin 875 mg-125 mg tablet 2017 active Medicati on ID: 117278 D uration Value: 5 Prescri bed By [...] nebulizat ion 2018 active Medicati on ID: 601592 D uration Value: 5 Brand Name: albutero [...] mg tablet 2018 active Medicati on ID: 427676 D uration Value: 30 Brand Name: lisinopr [...] No t Available buspirone 10 mg tablet 10/01/ 2019 active Medicati on ID: 725791 D uration Value: 30 Brand Name: buspiron e Send Method: E-Prescr ibed Sub s Allowed: subs OK Speci al Instruct ion: TAKE 1 TABLET BY MOUTH THREE TIMES DAILY NEEDED ANXIETY Medicati onGeneri cName: buspiron e Not Available Not Available Not Available Tiazac 120 mg capsule,e xtended release 02/04 completed Medicati on ID: 39787 Re ason: () Brand Name: Tiazac S [...] elayed release 2018 active Medicati on ID: 208103 D uration Value: 30 Brand Name: omeprazo le Send Method: E-Prescr ibed Sub s Allowed: subs OK Speci al Instruct ion: TAKE 1 CAPSULE TWICE DAILY IN THE MORNING AND IN THE EVENING 1 HORA AN KALEN DE LAS COMIDAS Medicati onGeneri cName: omeprazo le Not Available Not Available Not Available Aspirin Childrens 81 mg chewable tablet 2013 active Medicati on ID: 60676 Br and Name: Aspirin Children s Send [...] mg tablet 2018 active Medicati on ID: 499934 D uration Value: 30 Brand Name: levon mendes Send Method: E-Prescr ibed Sub s Allowed: subs OK Speci al Instruct ion: TAKE 2 TABLETS BY MOUTH ONCE DAILY IN THE MORNING Medicati onGeneri cName: levon jenkinsqujimmie ne Not Available Not Available Not Available ibuprofen 600 mg tablet 2018 active Medicati on ID: 602470 D uration Value: 30 Brand Name: ibuprofe [...] 24 hr 2018 active Medicati on ID: 767107 D uration Value: 30 Brand Name: metformi n Send Method: E-Prescr ibed Sub s Allowed: subs OK Speci al Instruct ion: TAKE 1 TABLET BY MOUTH TWICE DAILY IN THE MORNING AND IN THE EVENING W ITH FOOD Med icationG enericNa me: metformi n Not Available Not Available Not Available Ambien 5 mg tablet 2013 active Medicati on ID: 34575 Br and Name: Ambien S end Method: [...] mg capsule 2013 active Medicati on ID: 77479 Br and Name: Colsylwia S end Method: E-Prescr ibed Sub s [...] e Jammie Pen Needle 32 gauge x 5/32 [...] inhalatio n 2018 active Medicati on ID: 104941 D uration Value: 30 Brand Name: Breo [...] subcutane ous 2018 active Medicati on ID: 651370 D uration Value: 35 Brand Name: Humulin [...] Updated DateTime 03/13/2024 157.48 cm 26 kg/m2 88057.12 g Shantell Wise [place] [facility] 03/13/2024 13:27:58 Social History None recorded. Functional Status None recorded. Mental Status None recorded. Family History Nothing Reported. Medical History No medical history recorded. Gynecological HistoryNo gynecological history recorded. Obstetrics History GPAL:G 0 P 0 0 0 0 Past Encounters Encounter ID Performer Location Encounter Start Date Encounter Closed Date Diagnosis/Indication Diagnosis SNOMED-CT Code Diagnosis ICD10 Code Diagnosis IMO Codes Diagnosis Note [id number] UMESH DIAZ MD [facility] [address] [place] [address] 03/13/2024 13:18:07 03/13/2024 13:52:50 Oropharyngeal dysphagia 49689931 R13.12 Exam and laryngosco py were normal. I recommend a swallow study (MBS) to reassess her swallow. F/u after. If normal I would suggest GI referral especially given her Sjogrens. Sj gren's syndrome 22379241 M35.00 Encouraged hydration. Will consider GI referral [...] Member ID Mendez Member ID Guarantor Name 02/08/2025 1 [facility] - DOS ON OR AFTER 2022 - MEDICARE ADVANTAGE [place] & [place] (MEDICARE REPLACEMENT/AD VANTAGE - PPO) Jennifer Gu [id number] Jennifer Gu Notes Date Note Type Note [...] and dry mouth. UMESH DIAZ MD [address] [place] [address], [phone], [place] [facility] 03/13/2024 13:43:36 OBGyn Episode No OBEpisode recorded.
--- OUTSIDE RECORDS SUMMARY | 2025-02-22 19:38 | XMS_ITS | Data Portability ---
Author Organization [employer] [facility], [facility] Address [address] [place] [phone] Care Team Providers Care Water Operator Name Role Phone HIM CCA OTHER Unavailable OTHER Assessment Encounter Date Assessment Date Assessment LastModified by Organization Details LastModified Time 04/13/2024 04/13/2024 As noted, we were called to see this patient regarding concerns of URI symptoms. Evaluation in the field was performed by my gallery or museum technician colleague, as noted above, I provided real-time [...] specimen 2024 025 [email or web address] [facility], [address] [place] [address], [phone] 02/10/202 5 14:42:18 rapid flu (A+B) 2024 025 [email or web address] [facility], [address] [place] [address], [phone] 5 14:42:21 Referral None recorded. Procedures None [...] Name and Address Organization Details Recorded Time 82484 codeine medicatio n Not available Not available Not available 04/13/2024 2670 RxNorm [facility] Available [facility] 5 09:12:08 04302 Bactrim medicatio n Not available Not available Not available 04/13/2024 52203 9 RxNorm Not Available [facility] - production 5 09:12:08 65241 sulfameth oxazole medicatio n Not available Not available Not available 04/13/2024 15630 RxNorm Not Available [facility] 5 09:12:08 58420 trimethop rim medicatio n Not available Not available Not available 04/13/2024 38500 RxNorm Not Available [facility] 5 09:12:08 Medications Name [...] ICD10 Code Diagnosis IMO Codes Diagnosis Note [id number] Sebastian Vanessa MD Main - [facility] [address] [place] [phone] 04/13/2024 14:39:43 04/13/2024 21:52:34 Viral upper respiratory tract infection 278180058 J06.9 Health Concerns Section Related Observation LastModified by Organization Detai ls LastModified Time None Recorded Concern Status LastModified by Organization Details LastModified Time None Recorded Advance Directives Directive None Recorded Payers Insurance Date Sequence Insurance Name Policy Number Policy Mendez Covered Member ID Mendez Member ID Guarantor Name 04/22/2024 1 [facility] - DOS ON OR AFTER 2022 - DUAL ELIGIBLE - RETIREMENT OPTIONS AND ONE CARE (MEDICARE REPLACEMENT/ADV ANTAGE - HMO) Jennifer Gu [id number] Jennifer Gu Notes Date Note Type Note [...] at 04/13/2024 - 09:12 Comments: HPI reviewed Telemarketing Supervisor Organization Information for Emanuel Paige Legal Name: [employer]. Address: [address] [place] [address], Feller Buncher Operator: Vinny Delgadillo MD CLIA No.: [id number] Telemarketing Supervisor POC Test Results from [facility]manuel Paige Rapid influenza antigen (14:32:34) Flu: - Rapid COVID antigen (14:32:35) COVID: - ...................... ...................... ...................... ...................... ...................... ...................... ......... Telemarketing Supervisor Note From Emanuel Paige: Dispatch to the [...] test negative, rapid flu test positive negative. [facility] consulted. Red flags discussed. All times are approximate. ...................... ...................... ...................... ...................... ...................... ...................... ......... [facility] Consulted: Sebastian Vanessa ...................... ...................... ...................... ...................... ...................... ...................... ......... Disposition: Fulfilled Sebastian Vanessa MD [address] [place] [address],[facility] [facility], [place], [phone], [employer] 04/13/2024 15:34:43 OBGyn Episode No OBEpisode recorded.
--- OUTSIDE RECORDS SUMMARY | 2025-02-22 19:38 | XMS_ITS | Encounter Summary ---
Author Organization [employer] Address [address] [place] [address] 7[address] [place] [address] Care Team Providers Care Communication Center Operator Name Role Phone [facility] Primary Care Provider [phone] Emy Askew MD Primary Care Pro vider Reason for Visit * Reason Onset Date Comments Med Refill 05/11/2022 Encounter Details Date Type Department Care Team (Late st Contact Info) Description 05/11/2022 Telephone [facility] [address] [place] [address] [facility] [address] [place] [address] Med Refill Social History Tobacco Use Types [...] has lost the device. Please sent to [facility] - [place], [place] - [address] [place] [address] documented in this encounter Plan of Treatment Upcoming Encounters Date Type Department Care Team ([facility] st Contact Info) Description 03/19/2025 9:30 AM EST Office Visit [facility] OPTOMETRY [address] [place] [address] Rachel Collado, OD [address] [place] [address] 05/06/2025 10:15 AM EST Office Visit [facility] MEDICINE [address] [place] [address] Emy Askew MD [address] [place] [address] documented as of this encounter Visit Diagnoses Not on filedocumented in this encounter Care Teams Communication Center Operator Relationship Specialty Start Date End Date Amo Kenya [facility] [address] [place] [address] PCP - General Family Medicine 01/22/22 07/24/22 Emy Askew MD [address] [place] [address] PCP - General Internal Medicine 07/25/22 documented as of this encounter
--- OUTSIDE RECORDS SUMMARY | 2025-02-22 19:38 | XMS_ITS | Clinical Summary ---
Author Organization [address] [facility] Address [address] [place] [address] Phone Care Team Providers Care Roll Cleaner Name Role Phone Berkley Bird MD Primary Care Provider [phone] Allergies Active Allergy Reactions Criticality Noted Date [...] Screening 1960 Colorectal Cancer Screening: Colonoscopy 1960 Drug Screen 1960 Non-Opioid Controlled Substance Agreement 1958 Diabetes: Annual Foot Exam 1968 Diabetes: [...] mmol/L LAB CHEMISTRY METHOD 04/06/2024 6:42 PM [facility] Potassium 3.5 3.5 - 5.5 mmol/L LAB CHEMISTRY METHOD 04/06/2024 6:42 PM [facility] Chloride 102 96 - 110 mmol/L LAB CHEMISTRY METHOD 04/06/2024 6:42 PM [facility] CO2 31 21 - 32 mmol/L LAB CHEMISTRY METHOD 04/06/2024 6:42 PM [facility] Anion Gap 5 3 - 11 LAB CHEMISTRY METHOD 04/06/2024 6:42 PM [facility] Glucose 183(H) 70 - 100 mg/dL LAB CHEMISTRY METHOD 04/06/2024 6:42 PM [facility] BUN 17 5 - 25 mg/dL LAB CHEMISTRY METHOD 04/06/2024 6:42 PM [facility] Creatinine 0.94 0.50 - 1.10 mg/dL LAB CHEMISTRY METHOD 04/06/2024 6:42 PM [facility] eGFR 67 >=60 mL/min/1. 73m2 LAB CHEMISTRY METHOD 04/06/2024 6:42 PM [facility] Comment:Calculation based on the Chronic Kidney Disease Epidemiology Collaboration (CKD-EPI) equation refit without adjustment for race. BUN/Creatinine Ratio 18.1 LAB CHEMISTRY METHOD 04/06/2024 6:42 PM [facility] Calcium 10.3 8.5 - 10.5 mg/dL LAB CHEMISTRY METHOD 04/06/2024 6:42 PM [facility] AST (SGOT) 15 10 - 42 unit/L LAB CHEMISTRY METHOD 04/06/2024 6:42 PM [facility] ALT (SGPT) 22 10 - 60 unit/L LAB CHEMISTRY METHOD 04/06/2024 6:42 PM [facility] Alkaline Phosphatase 140(H) 42 - 121 unit/L LAB CHEMISTRY METHOD 04/06/2024 6:42 PM [facility] Total Protein 7.6 6.0 - 8.0 g/dL LAB CHEMISTRY METHOD 04/06/2024 6:42 PM [facility] Albumin 3.6 3.2 - 5.0 g/dL LAB CHEMISTRY METHOD 04/06/2024 6:42 PM [facility] Total Bilirubin 0.3 0.0 - 1.4 mg/dL LAB CHEMISTRY METHOD 04/06/2024 6:42 PM [facility] Blood Venous blood specimen / Unknown Venipuncture / Unknown 04/06/2024 2:00 PM EST 04/06/2024 2:00 PM EST us Magen Velasco DPM LAB BLOOD ORDERABLES Final Result [facility] [address] [place] [address], [place] [phone] from Last 3 Months or Most Recently Relevant to [place] [id number] [facility] MEDICARE Member Subscriber Plan / Payer (Ef fective 2023-Present) Name:Jennifer Payton Relation to Subscriber:Self Name:Jennifer Palmer Payer ID:[id number] Group ID:[id number] Type:Not on file Address: [place] [address] [place] [address] Care Teams Roll Cleaner Relationship Specialty Start Date End Date Berkley Bird MD [address] [address] PCP - General Internal Medicine 02/20/24
--- OUTSIDE RECORDS SUMMARY | 2025-02-22 19:38 | XMS_ITS | Encounter Summary ---
Author Organization [employer] Address [address] [place] [address] [address] [place] [address] Care Team Providers Care Adjunct Psychology Professor Name Role Phone Emy Askew MD Primary Care Pro vider Reason for Visit * Reason Comments Med Refill Encounter Details Date Type Department Care Team ([facility] Contact Info) Description 02/14/2024 Refill [facility] [address] [place] [address] Emy Askew MD [address] [place] [address] Social History Tobacco Use Types Packs/Day Years [...] Description 03/19/2025 9:30 AM EST Office Visit [facility] OPTOMETRY [address] [place], [place] [phone] Rachel Collado, OD [address] [place] [address] 05/06/2025 10:15 AM EST Office Visit [facility] [address] [place] [address] Emy Askew MD [address] [place] [address] documented as of this encounter Visit Diagnoses Not on filedocumented in this encounter Additional Health Concerns Assessment Noted Time PHQ-9 Depression Total Score: 10 024 2:37 PM EDT documented as of this encounter Care Teams Adjunct Psychology Professor Relationship Specialty Start Date End Date Emy Askew MD [address] [place] [address] PCP - General Internal Medicine 5/24/23 documented as of this encounter
--- OUTSIDE RECORDS SUMMARY | 2025-02-22 19:39 | XMS_ITS | Encounter Summary ---
Author Organization [employer] Address [address] [place] [address] 7[address] [place] [address] Care Team Providers Care Display Artist Name Role Phone Kenya Sol CHECK WRITING MACHINE OPERATOR Primary Care Provider [phone] Emy Askew MD Primary Care Pro vider Encounter Details Date Type Department Care Team (Late st Contact Info) Description 03/26/2022 Orders Only [facility] [address] [place], [place] [phone] Lizett Cannon LPN Social History Tobacco Use [...] Description 03/19/2025 9:30 AM EST Office Visit [facility] OPTOMETRY [address] [place], [place] [phone] Tobias, Rachel, OD [address] [place] [address] 05/06/2025 10:15 AM EST Office Visit [facility] MED[facility]INE [address] [place] [address] Emy Askew MD [address] [place] [address] documented as of this encounter Visit Diagnoses Not on filedocumented in this encounter Care Teams Display Artist Relationship Specialty Start Date End Date [place] Kenya CHECK WRITING MACHINE OPERATOR [address] [place] [address] PCP - General Family Medicine 01/22/22 07/24/22 Emy Askew MD [address] [place] [address] PCP - General Internal Medicine 07/25/22 documented as of this encounter
--- OUTSIDE RECORDS SUMMARY | 2025-02-22 19:39 | XMS_ITS | Clinical Summary ---
Author Organization [employer] Address [address] [place] [address] [address] [place] [address] Care Team Providers Care Geothermal Powerplant Supervisor Name Role Phone Emy Askew MD [...] SUGAR FOUR TIMES DAILY 100 each 11 02/06/20 25 4:51 PM EST Active Ventolin HFA 108 (90 Base) MCG/ACT [...] the skin at bedtime. 3 mL 1 2025 Active Insulin Pen Needle (pen needle 07/17 ) 31G X 8 mm misc Daily use 100 each 12 025 2025 Active Continuous Glucose [place] (FreeStyle Anthony 3 Liberty) deviceIndications :Type 2 diabetes mellitus without complication, unspecified whether superintendent container terminal insulin use 1 each Once per day. Use as directed for CGM 1 each Active Continuous Glucose Sensor (FreeStyle Anthony 3 Plus Sensor) miscIndications:T ype 2 diabetes mellitus without complication, unspecified whether superintendent container terminal insulin use 1 each every 15 days. Use to test blood sugar twice a day 2 each Active glucose blood (FreeStyle Precision Clement Test) test strip Use to test blood sugar twice a day 100 each 025 2025 Active Alcohol Swabs (Alcohol Prep) 70 % padsIndications:T ype 2 diabetes mellitus without complication, unspecified whether superintendent container terminal insulin use USE DIRECTED FIVE TIMES DAILY 100 each 5 02/06/20 25 4:51 PM EST 025 Active calcium carbonate 1500 (600 Ca) MG tabletIndications :Benign essential hypertension TAKE 1 TABLET BY MOUTH EVERY MORNING 90 tablet 1 02/06/20 4:51 PM EST 025 Active Aspirin Low Dose 81 MG EC tablet TAKE 1 TABLET BY MOUTH EVERY MORNING 90 tablet 1 02/06/20 4:51 PM EST 025 Active loratadine (Claritin) 10 MG tablet TAKE 1 TABLET BY MOUTH EVERY DAY NEEDED FOR ALLERGIES 90 tablet 1 02/06/20 4:51 PM EST 025 Active losartan (Cozaar) 100 MG tablet TAKE 1 TABLET BY MOUTH EVERY MORNING 90 tablet 1 025 Active senna (Senokot) 8.6 MG tablet TAKE 2 TABLETS BY MOUTH EVERY DAY NEEDED FOR CONSTIPATION 180 tablet 1 02/06/20 4:51 PM EST 025 Active cloNIDine (Catapres) 0.2 MG tablet TAKE 1 TABLET BY MOUTH TWICE DAILY IN THE MORNING AND IN THE EVENING 60 tablet 3 02/06/20 4:51 PM EST 025 Active estradiol (Estrace) 0.1 MG/GM vaginal [...] as directed by MD. 60 patch 2 01/16/20 25 4:45 PM EST Active D3 Super Strength 50 MCG (1999) capsuleIndication s:Vitamin D deficiency, unspecified TAKE 1 CAPSULE BY MOUTH EVERY MORNING 90 capsule 1 02/06/20 25 4:51 PM EST Active atorvastatin (Lipitor) 20 MG tablet TAKE 1 TABLET BY MOUTH AT BEDTIME 90 tablet Active ammonium lactate (Lac-Hydrin) 12 % lotion Apply topically if needed for dry skin. 225 g 3 02/13/20 25 4:43 PM EST 025 2025 Active cevimeline (Evoxac) 30 MG capsule TAKE 1 CAPSULE BY MOUTH THREE TIMES DAILY IN THE MORNING, AT NOON, AND IN THE EVENING 90 capsule 2 Active carvedilol (Coreg) 25 MG tabletIndications :Benign essential hypertension TAKE 1 TABLET BY MOUTH TWICE DAILY IN THE MORNING AND IN THE EVENING 60 tablet 2 Active cevimeline (Evoxac) 30 MG capsule TAKE 1 CAPSULE BY MOUTH THREE TIMES DAILY IN THE MORNING, AT NOON, AND IN THE EVENING 90 capsule 2 02/06/20 25 4:51 PM EST 025 2024 Discontinued carvedilol (Coreg) 25 MG tabletIndications :Benign essential hypertension TAKE 1 TABLET BY MOUTH TWICE DAILY IN THE MORNING AND IN THE EVENING 60 tablet 2 02/06/20 25 4:51 PM EST 025 2024 Discontinued Active Problems Problem Noted [...] referred by ENT for further eval in [place] but never went -referred again to ENT [...] referred by ENT for further eval in [place] but never went -referred again to ENT [...] Rheumatoid arthritis with po sitive rheumatoid factor ([facility]/HCC) 03/07/2022 Assessment & Plan (12/06/2022 6:18 AM EDT): Pt w RA / Sjogren's disease, follows w oil burner installer - Continue care w specialist -on leflunomide and MTX Assessment & Plan (10/23/2022 5:23 PM EDT): Pt w RA / Sjogren's disease, follows w oil burner installer - Continue care w specialist -on leflunomide and MTX Assessment & Plan (09/24/2022 8:33 PM EDT): Pt w RA / Sjogren's disease, follows w oil burner installer - Continue care w specialist Bilateral post-traumatic [...] Pt following w psychiatrist and therapist at [facility]. Denies SI but has thoughts to be better off . - Continue care w specialist - Pt requests information to be able to change to an old age home --already received information -in process per pt Assessment & Plan (10/23/2022 5:23 PM EDT): Pt following w psychiatrist and therapist at [facility]. Denies SI but has thoughts to be better off . - Continue care w specialist - Pt requests information to be able to change to an old age home --already received information -in process per pt Assessment & Plan (09/24/2022 8:32 PM EDT): Pt following w psychiatrist and therapist at [facility]. Denies SI but has thoughts to be better off . - Continue care w specialist - Pt requests information to be able to change to an old age home -- I spoke w case assembler today and they will come to speak w pt to give info. Was told that there is no need to refer to CM for this. Type 2 diabetes mellitus without complication Assessment & Plan (12/06/2022 6:16 AM EDT): 09/2022 HbA1C 8.2<---8.7, CBG 248., total ch 169, trig 324( in fasting) ,HDL 36,LDL 69, Microalb neg Used to follow w gritting machine operator, but lost care. Not on metformin for [...] - to f in 1 y. - Chore Tender: seen in 11/2022 Assessment & Plan (10/23/2022 5:46 PM EDT): 09/2022 HbA1C 8.2<---8.7, CBG 248., total ch 169, trig 324( in fasting) ,HDL 36,LDL 69, Microalb neg Used to follow w gritting machine operator, but lost care. Not on metformin for [...] - to f in 1 y. - Chore Tender: referred today Assessment & Plan (09/24/2022 8:51 PM EDT): Today HbA1C 8.7, CBG 248. Used to follow w gritting machine operator, but lost care. - DM2 labs. - Will consider increasing Trulicity at her next appt. - Pt not currently on Metformin, but used to be in the past. Will check at her next appt, and if she can tolerate it, will resume Rx. - Ophthalmology 07/2022 - to f in 1 y. - Chore Tender: will refer at next visit. Varicose veins of lower extremity 07/08/2017 Assessment & Plan (10/23/2022 5:12 PM EDT): Pt w lower extremity edema trace from 1+ before , possibly from Cardiazem and venous insufficiency. - Advised to use compression stockings,--started using with noted improved LE edema -I confirmed today w her rehabilitation aide/scheduler-Dr Watkins #[phone] that pt does not have CHF and [...] (12/06/2022 6:19 AM EDT): Pt following with oil burner installer. Pt w consistently dry mouth. From med [...] for unclear reasons. - PT following w rehabilitation aide/scheduler actively w on and off chest discomfort. [...] mg in pm - PT following w rehabilitation aide/scheduler -will f BP in next 3 to 4 weeks Assessment & Plan (09/24/2022 8:43 PM EDT): BP slightly elevated at 144/94 - Holter 2019 neg. -echocardiogram 2018The left ventricular systolic function is normal. The visually estimated ejection fraction is between 60-65%. -stress test 2019 : nondiagnostic EKG For ischemia. - Will monitor BP manually at next visit. - PT following w rehabilitation aide/scheduler Chronic constipation 12/24/2016 Gastroesophageal reflux disease without [...] in 2016 here . I called her rehabilitation aide/scheduler today and he reports last EKG was normal as well Cell Cleaner -Dr Watkins states given QTC < 500 [...] and leflunomide ( if ok wit her oil burner installer)-pt to ask and Cymbalta if taking in am. Hold am of surgery lasix,amytriptiline,lisinopril .Hold ASA 5 days prior procedure and avoid NSAIDS 7 days prior procedure. -will rec to have post op EKG as rec by her rehabilitation aide/scheduler for noted prolonged QTC -will rec to [...] Encounters Date Type Department Care Team Description 02/18/2025 Refill [facility] [address] [place] [address] Emy Askew MD Benign essential hypertension 02/11/2025 9:30 AM EST Office Visit [facility] [address] [place] [phone] Emy Askew MD Type 2 diabetes mellitus with diabetic neuropathic arthropathy, with long-term current use of insulin (HCC) (Primary Dx); Encounter for immunization; Benign essential hypertension; Healthcare maintenance 02/11/2025 Telephone [facility] [address] [place] [phone] Emy Askew MD Information provided to PT 02/11/2025 Travel 02/10/2025 Telephone [facility] [address] [place] [phone] Genet Reed MA 02/10/2025 Orders Only [facility] External Provider, [facility] 02/09/2025 Orders Only GENERIC EXTERNAL DATA DEPARTMENT Provider, Generic External Data 02/01/2025 Patient Outreach [facility] [address] [place] [phone] Emy Askew MD Pre-visit Planning (Pre-visit planning - mailbox is full ) 01/15/2025 Orders Only GENERIC EXTERNAL DATA DEPARTMENT Provider, Generic External Data 12/31/2024 Telephone [facility] [address] [place] [phone] Emy Askew MD Prior Authorization 12/28/2024 Refill [facility] [address] [place] [phone] Emy Askew MD 12/17/2024 Refill [facility] [address] [place] [phone] Emy Askew MD Vitamin D deficiency, unspecified 12/15/2024 Orders Only GENERIC EXTERNAL DATA DEPARTMENT Provider, Generic External Data 12/14/2024 Orders Only GENERIC EXTERNAL DATA DEPARTMENT Provider, Generic External Data 11/24/2024 10:45 AM EDT Office Visit [facility] [address] [place] [phone] Emy Askew MD Lesion of tonsil (Primary Dx); Rheumatoid arthritis with positive rheumatoid factor, involving unspecified site ([facility]); Neck pain; Encounter for immunization; Health care maintenance; Sialoadenitis of submandibular gland; Type 2 diabetes mellitus without complication, unspecified whether superintendent container terminal insulin use ([facility]); Hypokalemia; Healthcare maintenance; Poor memory; Elevated alkaline phosphatase level; Benign essential hypertension 11/24/2024 Travel 11/24/2024 Orders Only GENERIC EXTERNAL DATA DEPARTMENT Provider, Generic External Data 11/23/2024 Telephone [facility] [address] [place] [phone] Emy Askew MD chart prep from Last 3 Months Immunizations Immunization Administration Dates Next Due Hep B, adult 11/25/2007,05/08/2007,04/10/2007 Influenza Injectable Quadriv alant Preservative Free IIV4 MDCK 01/06/2016 Influenza injectable quadriv alent IIV4 with preservative 12/10/2017,11/16/2016 Influenza injectable quadriv alent preservative free 12/05/2022,12/15/2020,12/01/2019,01/15,11/29/2014 Influenza, High Dose Seasona l, Preservative Free 11/24/2024 Influenza, IIV3, injectable 11/13/2013,0 11/15/2012,12/03/2011,11/14 Influenza, seasonal, injecta ble, preservative free 11/26/2017 Pfizer Covid-19 Vaccine 12+ 02/11/2025, Pfizer Covid-19 Vaccine 12+ Bivalent 09/24/2022 Pneumococcal [...] Sign Reading Time Taken Comments Blood Pressure 114/80 02/11/2025 9:44 AM EST Pulse 84 02/11/2025 9:44 AM EST Temperature 36.2 C (97.1 F) 02/11/2025 9:44 AM EST Respiratory Rate 20 02/11/2025 9:44 AM EST Oxygen Saturation 97% 11/24/2024 10: 39 AM EDT Inhaled Oxygen Concentration - - Weight 67.5 kg (148 lb 12.8 oz) 02/11/2025 9:44 AM EST Height 157.5 cm (5' 2 ) 02/11/2025 9:44 AM EST Body Mass Index 27.22 02/11/2025 9:44 AM EST Plan of Treatment Upcoming Encounters Date Type Department Care Team (Late st Contact Info) Description 03/19/2025 9:30 AM EST Office Visit [facility] [address] [place] [address] Tobias, Rachel, OD [address] [place] [address] 05/06/2025 10:15 AM EST Office Visit [facility] [address] [place] [address] Emy Askew MD [address] [place] [address] Health Maintenance Due Date Last Done Comments CT Colonography 1960 FIT DNA/Cologuard 1960 FIT 1960 FOBT 1960 Sigmoidoscopy 1960 Diabetes: Foot Exam 1968 Dental Oral Exam 04/29/2022 10/26/2021, 10/2020, 04/06/2019, Additional history exists Dental Prophylaxis 01/18/2023 07/17/2022, 0 10/26/2021, 04/14/2021, Additional history exists Dental X-Ray: Full Mouth 08/20/2023 08/18/2020, 0310/2020 Colonoscopy 05/08/2024 05/09/2023 Colorectal Cancer Screening 05/08/2024 Dental X-Ray: Bitewings 06/10/2024 06/10/19, 03/01/2023, 10/26/2021, Additional history exists Diabetes: Urine Protein Screening 12/24/2024 12/25/2023, 10/04/2022, 12/21/2020, Additional history exists Lipid Panel 12/24/2024 12/25/2023, 0203/2023, 10/04/2022, Additional history exists Mammogram 03/17/2025 03/17/2024, 11/03, 07/28/2021, Additional history exists Diabetes: Hemoglobin A1C 05/12/2025 025, 09/11/2024, 07/16/2024, Additional history exists Depression Monitoring 05/24/2025 11/24/2024, 025 COVID-19 Vaccine ( season) 2025 02/11/2025, 03/20/2023, 09/24/2022, Additional history exists SDOH Screening 11/24/2025 11/24/2024 Eye Exam 01/07/2026 01/08/2024, 08/2023, 01/08/2024, Additional history exists Alcohol/Substance Use Screening 02/11/2026 02/11/2025 Tobacco Screening 02/11/2026 02/11/2025 DTaP/Tdap/Td Vaccines (3 - Td or Tdap) [...] on patient's age to complete this topic Goals Goal Patient Goal Type Associated Problems Recent Progress Patient-Stated? Author Help patients manage their type 2 diabetes Care Plan Help patients manage their type 2 diabetes No Leonor Horton Weekly blood pressure task Care Plan Weekly blood pressure task No Leonor Horton Help patients manage their type 2 diabetes Care Plan Help patients manage their type 2 diabetes No Leonor Horton Patient has chronic kidney disease Care Plan Patient has chronic kidney disease No Leonor Horton Weekly blood pressure task Care Plan Weekly blood pressure task No Leonor Horton Patient has chronic kidney disease Care Plan Patient has chronic kidney disease No Leonor Horton Weekly blood pressure task Care Plan Weekly blood pressure task No Genet Reed MA Weekly blood pressure task Care Plan Weekly blood pressure task No Genet Reed [place] Patient has chronic kidney disease Care Plan Patient has chronic kidney disease No Genet Reed [place] Patient has chronic kidney disease Care Plan Patient has chronic kidney disease No Genet Reed MA Weekly blood pressure task Care Plan Weekly blood pressure task No Genet Reed MA Weekly blood pressure task Care Plan Weekly blood pressure task No Genet Reed MA Patient has chronic kidney disease Care Plan Patient has chronic kidney disease No Genet Reed [place] Patient has chronic kidney disease Care Plan Patient has chronic kidney disease No Genet Reed MA Weekly blood pressure task Care Plan Weekly blood pressure task No Jessica Valenzuela MA Weekly blood pressure task Care Plan Weekly blood pressure task No Jessica Valenzuela MA Patient has chronic kidney disease Care Plan Patient has chronic kidney disease No Jessica Valenzuela [place] Patient has chronic kidney disease Care Plan Patient has chronic kidney disease No Jessica Valenzuela MA Procedures Procedure Name Priority Date/Time Associated Diagnosis Comments POCT GLYCATED HEMOGLOBIN, TOTAL Routine 02/11/2025 10:39 AM EST Type 2 diabetes mellitus with diabetic neuropathic arthropathy, with long-term current use of insulin (HCC) POCT GLUCOSE (CPT-05890) Routine 02/11/2025 10:38 AM EST Type 2 diabetes mellitus with diabetic neuropathic arthropathy, with long-term current use of insulin (HCC) XR THORACIC SPINE 3 VIEWS Routine 02/10/2025 9:17 AM EST URINALYSIS, COMPLETE, WITH REFLEX TO CULTURE Routine 02/09/2025 1:01 PM EST XR LUMBAR SPINE 2-3 VIEWS Routine 02/09/2025 11:15 AM EST URINALYSIS, COMPLETE, WITH REFLEX TO CULTURE Routine [...] WHOLE BLOOD Routine 11/24/2024 9:04 AM EDT BI MAMMOGRAM SCREENING TOMOSYNTHESIS BILATERAL Routine 03/17/2024 1:00 PM EST LIPID PANEL, STANDARD Routine 12/25/2023 7:08 AM EDT Annual physical exam ALBUMIN, RANDOM URINE W/CREATININE Routine 12/25/2023 7:05 AM EDT Annual physical exam BITEWING - SINGLE RADIOGRAPHIC IMAGE Routine 06/10/2023 3:30 PM EDT Periodontal disease Fractured dental sikh with loss of material HPV MRNA E6/E7 [...] to Health Maintenance Results * (ABNORMAL) POCT Hgb A1c (02/11/2025 10:39 AM EST) Hemoglobin A1C 9.1(A) 4.0 - 5.7 % QC Media Lot # [id number] Lot# Expiration Date [id number] Blood 02/11/2025 10:3 9 AM EST Emy Goldsmith MD POINT OF CARE KALEN T ENTER/EDIT ORDERABLES Final Result * (ABNORMAL) POCT Glucose (02/11/2025 10:38 AM EST) Glucose Blood, POC 207(A) 60 - 200 mg/dL QC Media Lot # [id number] Lot# Expiration Date Blood Capillary blood specimen / Unknown 02/11/2025 10:38 AM EST Emy Goldsmith MD POINT OF CARE KALEN T ENTER/EDIT ORDERABLES Final Result * XR Thoracic Spine 3 Views (02/10/2025 9:17 AM EST) Anatomical Region Laterality Modality Spine, T-spine Radiographic Karla ging 02/10/2025 9:17 AM EST Narrative 02/10/2025 9:31 AM EST [address] [address] XRay Report Signed Patient: Jennifer Payton MR#: [id number] : 1960 Acct:[id number] Age/Sex: 64 / F ADM Date: 02/10/25 Loc: HO.ED Attending Dr: Ordering Physician: Andrea Smart Date of Service: 02/10/25 Procedure(s): XR thoracic spine 3V Accession Number(s): [id number] cc: Andrea Smart; Emy Askew MD Reason for Exam: thoracic back pain EXAMINATION: XR THORACIC SPINE CLINICAL INFORMATION: thoracic back pain COMPARISON: March 29, 2015 TECHNIQUE: AP, lateral and swimmer's projection FINDINGS: Multilevel marginal osteophyte formation and endplate sclerosis decreased intervertebral disc height throughout the lower thoracic and upper lumbar spine. S-shaped curvature of the thoracolumbar spine. Multilevel syndesmophyte formation and lower thoracic upper lumbar spine. No acute cortical disruption or malalignment. No lytic or blastic lesions. XR/XR thoracic spine 3V IMPRESSION: Multilevel thoracolumbar spondylosis and scoliosis. Worsened since prior exam. Electronically signed by: Brock Lauren MD 02/10/2025 09:27 AM EST Dictated By: Brock Lundy MD Signed By: <Electronically signed by Brock Maradiaga MD in OV> 02/10/25926 DD/ 6 TD/TT: 02/10/25923 Merry Go Round Attendant: Procedure Note Ritikainterpreter, Image - 02/10/2025 [place] [address] XRay Report Signed Patient: Axel Payton#: [id number] : 9Acct:[id number] Age/Sex: 64 / FADM Date: 02/10/25 Loc: HO.ED Attending Dr: Ordering Physician: Andrea Smart Date of Service: 02/10/25 Procedure(s): XR thoracic spine 3V Accession Number(s): [id number] cc: Andrea Smart; Emy Askew MD Reason for Exam: thoracic back pain EXAMINATION: XR THORACIC SPINE CLINICAL INFORMATION: thoracic back pain COMPARISON: March 29, 2015 TECHNIQUE: AP, lateral and swimmer's projection FINDINGS: Multilevel marginal osteophyte formation and endplate sclerosis decreased intervertebral disc height throughout the lower thoracic and upper lumbar spine. S-shaped curvature of the thoracolumbar spine. Multilevel syndesmophyte formation and lower thoracic upper lumbar spine. No acute cortical disruption or malalignment. No lytic or blastic lesions. XR/XR thoracic spine 3V IMPRESSION: Multilevel thoracolumbar spondylosis and scoliosis. Worsened since prior exam. Electronically signed by: Brock Lauren MD 02/10/2025 09:27 AM EST RP Dictated By: Brock Lundy MD Signed By: <Electronically signed by Brock Maradiaga MDin OV> 02/10/25926 DD/ 6 TD/TT: 02/10/25923 Merry Go Round Attendant: [facility] External Provider IMG XR PROCEDURES Final Result * (ABNORMAL) Urinalysis, Complete, with Reflex to Culture (02/09/2025 1:01 PM EST) Only the most recent of2 resultswithin the time period is included. Color Urine Yellow [facility] Appearance Urine Cloudy [facility] PH 6.0 5.0 - 9.0 [facility] Glucose Urine UA >=1000(A) Negative mg/dL [facility] Urine Blood Negative Negative [facility] Specific [place] - Urine >=1.030(H) 1.005 - 1.025 [facility] Urine Protein Negative Neg-Trace mg/dL [facility] Urine Ketones Negative Negative mg/dL [facility] Nitrite Urine Negative Negative [facility] Leukocyte Esterase Urine Negative Negative [facility] RBC Urine 0-2 0 - 2 /HPF [facility] Urine WBC 0-5 0 - 5 /HPF [facility] Urine Squamous Epithelial Cell 3-5 0 - 2 /HPF [facility] Urine Bacteria None Seen None Seen [facility] Hyaline Casts, Urine 0-2 0 - 2 /LPF [facility] 02/09/2025 1:01 PM EST 02/09/2025 1:05 PM EST Narrative [facility] - 02/09/2025 1:14 PM EST Urine, Clean Catch us Generic External Data Provider LAB URINE ORDERAB LES Final Result Performing Organization Address City/State/[facility] Co de Phone Number [facility] [address] [place] [address] [phone] * XR Lumbar Spine 2-3 Views (02/09/2025 11:15 AM EST) Anatomical Region Laterality Modality Spine, L-spine Radiographic Karla ging 02/09/2025 11:1 5 AM EST Narrative 02/09/2025 11:24 AM EST [address] [address] XRay Report Signed Patient: Jennifer Palmer MR#: [id number] : 1960 Acct:[id number] Age/Sex: 64 / F ADM Date: 02/09/25 Loc: HO.ED Attending Dr: Ordering Physician: Anuj Rodriguez Date of Service: 02/09/25 Procedure(s): XR lumbar spine 2-3V Accession Number(s): [id number] cc: Anuj Rodriguez; Emy Askew MD Reason for Exam: low back pain EXAMINATION: XR LUMBAR SPINE 2-3 VIEWS HISTORY: low back pain COMPARISON: Comparison is made with the prior examination dated 11/17/2023. FINDINGS: AP, lateral, and coned down views of the lumbar spine are submitted. Osseous mineralization is normal. Five nonrib-bearing lumbar vertebral bodies are identified, maintaining normal height without evidence of fracture. There is mild levoscoliosis. Again seen is slight spondylolisthesis of L4 on L5. There is mild degenerative disc disease with disc space narrowing and osteophyte formation. The posterior elements are intact. The visualized paraspinal soft tissues are unremarkable. XR/XR lumbar spine 2-3V IMPRESSION: Mild levoscoliosis. Mild degenerative disc disease and slight spondylolisthesis of L4 on L5. Electronically signed by: Cm Starkey MD 02/09/2025 11:21 AM EST Dictated By: Cm Starkey MD Signed By: <Electronically signed by Cm Starkey MD in OV> 02/09/25 1121 DD/ 1115 TD/TT: 02/09/25 1117 Merry Go Round Attendant: Procedure Note Donotuseinterpreter, Image - 02/09/[address] [address] XRay Report Signed Patient: Axel Palmer#: [id number] : 1960cct:[id number] Age/Sex: 64 / FADM Date: 02/09/25 Loc: HO.ED Attending Dr: Ordering Physician: Anuj Rodriguez Date of Service: 02/09/25 Procedure(s): XR lumbar spine 2-3V Accession Number(s): [id number] cc: Anuj Rodriguez; Emy Askew MD Reason for Exam: low back pain EXAMINATION: XR LUMBAR SPINE 2-3 VIEWS HISTORY: low back pain COMPARISON: Comparison is made with the prior examination dated 11/17/2023. FINDINGS: AP, lateral, and coned down views of the lumbar spine are submitted. Osseous mineralization is normal. Five nonrib-bearing lumbar vertebral bodies are identified, maintaining normal height without evidence of fracture. There is mild levoscoliosis. Again seen is slight spondylolisthesis of L4 on L5. There is mild degenerative disc disease with disc space narrowing and osteophyte formation. The posterior elements are intact. The visualized paraspinal soft tissues are unremarkable. XR/XR lumbar spine 2-3V IMPRESSION: Mild levoscoliosis. Mild degenerative disc disease and slight spondylolisthesis of L4 on L5. Electronically signed by: Cm Starkey MD 02/09/2025 11:21 AM EST Dictated By: Cm Starkey MD Signed By: <Electronically signed by Cm Starkey MD in OV> 02/09/25 1121 DD/ 1115 TD/TT: 02/09/25 1117 Merry Go Round Attendant: [facility] External Provider IMG XR PROCEDURES Final Result * Hematoxylin and Eosin Stain (12/15/2024 8:01 AM EDT) 12/15/2024 8:01 AM EDT 12/15/2024 9:35 AM EDT [facility] LABS - 12/16/2024 3:57 PM EDT ----- ------- Name: Jennifer Palmer Age/Sex: 64/F : 1960 Unit#: [id number] Attend Dr: Thor Callahan MD Re12/15/[address]: [facility] Location: [place] Disch: ----- ------- SPEC : [id number] RECD: 12/15/24 STATUS: CORRIE VELEZ NUM: [id number] PRANAY: 12/15/24 [facility] DR: Thor Callahan MD ENTERED: 12/15/24 [...] microscopic examination, multiple pieces in cassette A. ([facility]) IHC S/NG Disclaimer NOTE: Unless otherwise stated, all tissue is formalin-fixed and paraffin-embedded. Some or all of the immunohistochemical tests reported herein may have been developed and their performance characteristics determined by [facility]. They have not been cleared or approved by the U.S. Food and Drug Administration (FDA). However, the FDA has determined that such clearance or approval is not necessary. This laboratory is certified under the Clinical Laboratory Improvement Amendments of 1988 (CLIA) as qualified to perform high complexity clinical laboratory testing. Copies To: Thor Callahan MD [facility] [address] [place] [phone] CONTINUED ON NEXT PAGE ----- ------- Name: Jennifer Palmer Age/Sex: 64/F : 1960 Unit#: [id number] Attend Dr: Thor Callahan MD Re12/15/24 Status: [facility] [place] Location: [facility] Disch: ----- ------- SPEC : [id number] RECD: 12/15/24 STATUS: CORRIE ALCAZARDevon NUM: [id number] PRANAY: 12/15/24 [facility] DR: Thor Callahan MD ENTERED: 12/15/24 SP TYPE: Surgical OTHR DR: Emy Askew MD ORDERED: HENRI Stain/3, Gross Micro L4 Copies To: (Continued) Emy Askew MD [address] [address] ----- ------- Signed (signature on file) Wesley Jackson MD 12/16/24 1557 ----- ------- END OF REPORT Generic External Data Provider LAB BLOOD ORDERAB LES Final Result Performing Organization Address [facility] de Phone Number [facility] [address] [place] [phone] * (ABNORMAL) Glucose, Whole Blood (12/15/2024 6:50 AM EDT) Glucose, Whole Blood 230(H) 60 - 115 mg/dL [facility] Comment:METER #: [id number] 12/15/2024 6:50 AM EDT 12/15/2024 6:57 AM EDT [employer] External Data Provider LAB BLOOD ORDERAB LES Final Result Performing Organization Address [facility] de Phone Number [facility] [address] [place] [phone] * CT Soft Tissue Neck w/ Contrast (12/14/2024 1:19 PM EDT) Anatomical Region Laterality Modality Head, Neck Computed Tomogra phy 12/14/2024 1:19 PM EDT Narrative 12/14/2024 1:21 PM EDT [address] [address] [address] Scan Report Signed Patient: Jennifer Palmer MR#: [id number] 0 : 1960 Acct:[id number] Age/Sex: 64 / F ADM Date: 12/14/24 Loc: .ED Attending Dr: Ordering Physician: Gregg Santoro PA-C Date of Service: 12/14/24 Procedure(s): CT soft tissue neck w IV con Accession Number(s): [id number] cc: Gregg Santoro PA-C; Emy Askew MD Report Number: [id number]: Total DLP = 484.00 mGy-cm Reason for [...] 12/14/24 1320 DD/ 1319 TD/TT: 12/14/24 1319 Merry Go Round Attendant: Procedure Note Donotuseinterpreter, Image - 12/14/[address] [place] [address] [address] Scan Report Signed Patient: Axel Palmer#: [id number] 0 : 9Acct:[id number] Age/Sex: 64 / FADM Date: 12/14/24 Loc: HO.ED Attending Dr: Ordering Physician: Gregg Santoro PA-C Date of Service: 12/14/24 Procedure(s): CT soft tissue neck w IV con Accession Number(s): [id number] cc: Gregg Santoro PA-C; Emy Askew MD Report Number: [id number]: Total DLP = 484.00 mGy-cm Reason for [...] 12/14/24 1320 DD/ 1319 TD/TT: 12/14/24 1319 Merry Go Round Attendant: [facility] External Provider IMG CT PROCEDURES Edited Result - Final * (ABNORMAL) CBC auto differential (12/14/2024 10:22 AM EDT) White Blood Count 9.5 4.8 - 10.8 X10*3/uL [facility] Red Blood Count 4.92 4.20 - 5.50 X10*6/uL [facility] Hemoglobin 14.4 12.0 - 16.0 g/dl [facility] Hematocrit 44.1 37.0 - 47.0 % [facility] Mean Corpuscular Volume 89.6 80.0 - 98.0 fL [facility] Mean Corpuscular Hemoglobin 29.3 27.0 - 33.0 pg [facility] Mean Corpuscular HGB Conc 32.7 31.0 - 35.0 g/dl [facility] Red Cell Distribution Width 12.9 11.0 - 16.0 % [facility] Platelet Count 253 160 - 400 X10*3/uL [facility] Mean Platelet Volume 10.0 9.4 - 12.3 fL [facility] Neutrophils Percent Auto 60.5 45 - 73 % [facility] Imm Gran Pct Auto 0.8(H) 0.0 - 0.4 % [facility] Lymphocytes Percent Auto 25.3 20 - 40 % [facility] Monocytes Percent Auto 8.5 2 - 11 % [facility] Eosinophils Percent Auto 4.4(H) 0 - 4 % [facility] Basophils Percent Auto 0.5 0 - 2 % [facility] NRBC Pct Auto 0.0 0.0 - 0.2 /100WBC [facility] Neutrophils Absolute Auto 5.7 2.0 - 8.3 x10*3/uL [facility] Imm Gran Abs Auto 0.08(H) 0.00 - 0.03 X10*3/uL [facility] Lymphocytes Absolute Auto 2.4 1.2 - 4.9 X10*3/uL [facility] Monocytes Absolute Auto 0.8 0.1 - 1.2 X10*3/uL [facility] Eosinophils Absolute Auto 0.4 0.0 - 0.4 X10*3/uL [facility] Basophils Absolute Auto 0.1 0.0 - 0.2 X10*3/uL [facility] NRBC Abs Auto 0.000 0.0 - 0.012 X10*3/uL [facility] 12/14/2024 10:2 2 AM EDT 12/14/2024 10:26 AM EDT us Generic External Data Provider LAB BLOOD ORDERAB LES Final Result [facility] [address] [place] [address] [phone] * (ABNORMAL) Comprehensive Metabolic Panel (12/14/2024 10:22 AM EDT) Sodium 142 135 - 145 mmol/L [facility] Potassium 3.8 3.3 - 5.1 mmol/L [facility] Chloride 108 96 - 108 mmol/L [facility] Carbon Dioxide 26 22 - 29 mmol/L [facility] Anion Gap 12 12 - 20 [facility] Urea Nitrogen (BUN) 13 9 - 16 mg/dL [facility] Creatinine, Serum 0.67 0.5 - 1.4 mg/dL [facility] Creatinine Clr Calc Pharmacy 74.6 [facility] Comment:Provided height and weight: 157.48 cm,68.039 kg.eGFR (calculated from the MDRD study equation) and eCrCl(calculated from the Cockcroft-Gault equation) are based ondifferent parameters and may not yield comparable results.If eCrCl result is absurd, please check patient'sheight/weight. Estimated Glomerular Filt Rate >60 [facility] Comment:Chronic Kidney Disea se: Estimated GFR < 60 mL/min/1.15n1Aortnr Kidney Disease: Estimated GFR < 15 mL/min/1.73m2 Glucose 259(H) 60 - 115 mg/dL [facility] Calcium 9.3 8.4 - 10.2 mg/dL [facility] Bilirubin, Total 0.3 0.0 - 1.0 mg/dL [facility] Aspartate Amino Transferase 20 5 - 31 U/L [facility] Alanine Aminotransferase 16 0 - 31 U/L [facility] Total Protein 7.5 6.5 - 8.0 g/dL [facility] Albumin Level 4.0 3.5 - 5.0 g/dL [facility] Alkaline Phosphatase 129(H) 39 - 117 U/L [facility] 12/14/2024 10:2 2 AM EDT 12/14/2024 10:26 AM EDT us Generic External Data Provider LAB BLOOD ORDERAB LES Final Result Performing Organization Address City/[facility]/ZIP Co de Phone Number [facility] [address] [place] [address] [phone] * (ABNORMAL) Glucose, Whole Blood (11/24/2024 9:04 AM EDT) Glucose, Whole Blood 326(H) 60 - 115 mg/dL [facility] Comment:METER #: [id number] Testing performed in the Endocrinology Department [address] , [address], [facility]. 11/24/2024 9:04 AM EDT 11/24/2024 9:07 AM EDT us Generic External Data Provider LAB BLOOD ORDERAB LES Final Result Performing Organization Address City/[facility]/ZIP Co de Phone Number [facility] [address] [place] [phone] * BI Mammogram Screening Tomosynthesis Bilateral (03/17/2024 1:00 PM EST) Anatomical Region Laterality Modality Breast Bilateral Mammography 03/17/2024 1:00 PM EST Narrative 03/28/2024 10:52 AM EST [address] [place] [address] Mammography Report Signed Patient: Jennifer Palmer MR#: [id number] 0 : 1960 Acct:[id number] Age/Sex: 63 / F ADM Date: 03/17/24 Loc: HO.MAMMO Attending Dr: Emy Goldsmith MD Ordering Physician: Emy Askew MD Re sults: 1Negative Date of Service: 03/17/24 Follow Up: 1 Year From Orig inal Mammogram Procedure(s): MM tomosynthesis screening BI Accession Number(s): [id number] cc: Emy Askew MD EXAMINATION: MM SCREENING [...] 03/28/24 1049 DD/ 1300 TD/TT: 03/17/24 1320 Merry Go Round Attendant: Procedure Note Donotuseinterpreter, Image - 03/28/2024 [place] [facility] [address] [place] [address] Mammography Report Signed Patient: Axel Palmer#: [id number] 0 : 9Acct:[id number] Age/Sex: 63 / FADM Date: 03/17/24 Loc: HOMirianMAMMO Attending Dr: Emy Goldsmith MD Ordering Physician: Emy Askew sults: 1Negative Date of Service: 03/17/24Follow Up: 1 Year From Orig inal Mammogram Procedure(s): MM tomosynthesis screening BI Accession Number(s): [id number] cc: Emy Askew MD EXAMINATION: MM SCREENING [...] 03/28/24 1049 DD/ 1300 TD/TT: 03/17/24 1320 Merry Go Round Attendant: Emy Goldsmith MD IMG BI PROCEDURES Final Result * (ABNORMAL) Lipid Panel, Standard (12/25/2023 7:08 AM EDT) Triglycerides 232(H) <150 mg/dL [facility] Comment:Desirable Triglyceri de: less than 150 mg/dLBorderline High Triglyceride 150-199 mg/dLHigh Triglyceride: 200-499 mg/dLVery High Triglyceride: greater than or equal to 5OO mg/dL Cholesterol 154 <200 mg/dL [facility] Comment:Desirable Cholestero l: less than 200 mg/dLBorderline High Cholesterol: 200-239 mg/dLHigh Cholesterol: greater than 239 mg/dL LDL Cholesterol Calculated 64 <100 mg/dL [facility] Comment:Desirable LDL: less than 100 mg/dLNear Optimal/Above Optimal LDL: 110- 129 mg/dLBorderline High LDL: 130-159 mg/dLHigh LDL: 160-189 mg/dLVery High LDL: greater than or equal to 190 mg/dL HDL Cholesterol 44 >40 mg/dL [facility] Comment:Desirable HDL: great er than 40 mg/dL Note: This HDL assay may give artificially low results in patients with liver disease. Blood Venous blood specimen / Unknown 12/25/2023 7:08 AM EDT 12/25/2023 7:09 AM EDT Emy Goldsmith MD LAB BLOOD ORDERAB LES Final Result Performing Organization Address [facility]/ZIP Co de Phone Number [facility] [address] [place] [phone] * (ABNORMAL) Albumin, Random Urine W/Creatinine (12/25/2023 7:05 AM EDT) Creatinine, Urine 50.21 mg/dL [facility] Microalbumin Urine 78.0 mg/L [facility] Microalbum Creatinine Ratio Ur 155.3(H) <30 ug/mg cr [facility] Comment:Albumin/Creatinine R atio Reference Ranges: Normal: < 30 ug/mg creatinine Microalbuminuria: 30 - 300 ug/mg creatinineClinical Albuminuria: > 300 ug/mg creatinine Urine (Urine, Random) 12/25/2023 7:05 AM EDT 12/25/2023 7:49 AM EDT Emy Goldsmith MD LAB URINE ORDERAB LES Final Result Performing Organization Address [facility]/ZIP Co de Phone Number [facility] [address] [place] [phone] * HPV mRNA E6/E7 w/Reflex to HPV Genotypes 16, 18/45 (05/27/2023 10:50 AM EDT) HPV nRNA E6/E7 Not Detected Not Detected [facility] Comment:Methodology: Transcr iption-Mediated AmplificationThis assay detects E6/E7 viral messenger RNA (mRNA) from 14high-risk HPV types (16,18,31,33,35,39,45,51,52,56,58,59,66,68).Cervical sources are required for HPV testing.If a vaginal source from a patient who has had atotal hysterectomy with removal of cervix wassubmitted, please contact the testing laboratoryfor alternative testing options.For additional information, please refer [email or web address](This link if provided for information/educational purposes only.)THIS TEST WAS PERFORMED AT:[employer] [place] [phone] CAMARENA MD HPV mRNA E6/E7 TNP [facility] HPV 16 RNA TNP [facility] HPV 18/45 RNA [facility] 05/27/2023 10:5 0 AM EDT 05/28/2023 11:50 AM EDT Alden Cai CNM LAB CYTOLOGY ORDERABLES F inal Result [facility] [address] [place] [phone] * Pap Smear (05/27/2023 10:50 AM EDT) Swab Cervix uteri structure / Unknown 05/27/2023 10:50 AM EDT 05/28/2023 11:50 AM EDT Narrative [facility] - 06/09/2023 5:49 PM EDT ----- ------- Name: Jennifer Palmer Age/Sex: 62/F : 1960 Unit#: [id number] Attend Dr: ALDEN CAI CNM Re05/27/23 Status: DEP REF [facility] SHAWH[facility] Disch: ----- ------- SPEC : [id number] RECD: 05/28/23 STATUS: CORRIE VELEZ NUM: [id number] PRANAY: 05/27/23-1050 [facility] DR: ALDEN CAI CNM ENTERED: [...] 57, 66, 66) HPV testing performed by [email or web address], [place], [place]. See reference laboratory portion of the EMR for entire report. Clinical Information LMP: Postmenopausal Previous PAP test: Unknown date/findings Material Received ThinPrep-Vaginal/Cervical ----- ------- Signed (signature on file) Esther A Nenita 06/09/23 1749 ----- ------- END OF REPORT Alden Cai CNM LAB CYTOLOGY ORDERABLES F inal Result Performing Organization Address [facility] Co de Phone Number [facility] [address] [place] [phone] * Hm Colonoscopy (05/09/2023 6:56 PM EST) Historical Provider HEALTH MAINTENANCE Final Result * Hepatitis C Antibody Reflex (10/04/2022 9:42 AM EDT) Hepatitis C Antibody Nonreactive Nonreactive [facility] Comment:Antibodies to HCV no t detected; does not exclude early acuteHCV infection. 10/04/2022 9:42 AM EDT 10/04/2022 9:43 AM EDT Emy Goldsmith MD LAB BLOOD ORDERAB LES Final Result Performing Organization Address [facility] Co de Phone Number [facility] [address] [place] [phone] [phone] from Last 3 Months or Most Recently Relevant to Health Maintenance Additional Health Concerns Active Problems Noted Date Diagnosed Date Help patients manage their type 2 diabetes 02/01 Weekly blood pressure task 02/01/2025 Help patients manage their type 2 diabetes 02/01 Patient has chronic kidney disease 02/01/2025 Weekly blood pressure task 02/01/2025 Patient has chronic kidney disease 02/01/2025 Weekly blood pressure task 02/10/2025 Weekly blood pressure task 02/10/2025 Patient has chronic kidney disease 02/10/2025 Patient has chronic kidney disease 02/10/2025 Weekly blood pressure task 02/10/2025 Weekly blood pressure task 02/10/2025 Patient has chronic kidney disease 02/10/2025 Patient has chronic kidney disease 02/10/2025 Weekly blood pressure task 02/11/2025 Weekly blood pressure task 02/11/2025 Patient has chronic kidney disease 02/11/2025 Patient has chronic kidney disease 02/11/2025 Insurance [employer] OPT[employer] (HMO D-SNP) [facility] MEDICAID STAND ADULT Care Teams Geothermal Powerplant Supervisor Relationship Specialty Start Date End Date Emy Askew MD [address] [place] [phone] PCP - General Internal Medicine 07/25/22
--- OUTSIDE RECORDS SUMMARY | 2025-02-22 19:39 | XMS_ITS | Encounter Summary ---
Author Organization [employer] Address [address] [place] [address] 7t [place] [address] Care Team Providers Care Public Service Representative Name Role Phone [facility] Primary Care Provider [phone] Emy Askew MD Primary Care Pro vider Reason for Visit * Reason Onset Date Comments VISION 03/13/2022 Encounter Details Date Type Department Care Team ([facility] st Contact Info) Description 03/13/2022 Telephone [facility] MEDICINE [address] [place] [address] [facility] [address] [place] [address] VISION Social History Tobacco Use Types Packs/Day [...] center regarding an eye exam. Please contact [phone] documented in this encounter Plan of Treatment Upcoming Encounters Date Type Department Care Team (Late st Contact Info) Description 03/19/2025 9:30 AM EST Office Visit [facility] OPTOMETRY [address] [place], [place] [phone] Rachel Collado, OD [address] [place] [address] 05/06/2025 10:15 AM EST Office Visit [facility] MEDICINE [address] [place] [address] Emy Askew MD [address] [place] [address] documented as of this encounter Visit Diagnoses Diagnosis Diabetes 1.5, managed as type 2 (HCC) documented in this encounter Care Teams Public Service Representative Relationship Specialty Start Date End Date DebordKenya FNP [address] [place] [address] PCP - General Family Medicine 01/22/22 07/24/22 Emy Askew MD [address] [place] [address] [phone] PCP - General Internal Medicine 07/25/22 documented as of this encounter
--- OUTSIDE RECORDS SUMMARY | 2025-02-22 19:39 | XMS_ITS | Encounter Summary ---
Author Organization [employer] Address [address] [place] [address] 7 [place] [address] Care Team Providers Care Internal Sales Engineer Name Role Phone Cyn Bosch MD Primary Care Provider Michelle ksedith [facility] Primary Care Provider [phone] Emy Askew MD Primary Care Pro vider Encounter Details Date Type Department Care Team (Latest Contact Info) Description 05/09/2020 Abstract [facility] CONVERSIONS Dental, Provider, DDS Social History [...] 9:30 AM EST Office Visit [facility] OPTOMETRY [address] [place] [address] Rachel Collado, OD [address] [place] [address] 05/06/2025 10:15 AM EST Office Visit [facility] MEDICINE [address] [place] [address] Emy Askew MD [address] [place] [address] documented as of this encounter Visit Diagnoses Not on filedocumented in this encounter Care Teams Internal Sales Engineer Relationship Specialty Start Date End Date Cyn Bosch MD PCP - General Family Medicine 08/20/19 01/21/22 [facility] FNP [address] [place] [phone] PCP - General Family Medicine 01/22/22 07/24/22 Emy Askew MD [address] [place] [phone] PCP - General Internal Medicine 07/25/22 documented as of this encounter
--- OUTSIDE RECORDS SUMMARY | 2025-02-22 19:39 | XMS_ITS | Encounter Summary ---
Author Organization [facility] Address [address] [facility] [address] [place] [address] Phone Care Team Providers Care Sweatband Drummer Name Role Phone Unknown, Unknown Primary Care Provider Mark Segura MD Primary Care Provider Encounter Details Date Type Department Care Team (Latest Contact Info) Description 05/26/2018 Ancillary Orders [facility] [address] [place] [address] [place] [address] Isidro Watkins, DO [address] [place] [address] Other chest pain Social History Tobacco Use [...] pain documented in this encounter Care Teams Sweatband Drummer Relationship Specialty Start Date End Date Unknown, Unknown, PCP - General 05/15/18 10/14/19 Mark Foote MD [address] [place] [phone] PCP - General Pediatrics 10/15/19 documented as of this encounter Additional Source Comments The information contained in this document represents components of the legal health record. It is not the complete legal health record.[facility]
--- OUTSIDE RECORDS SUMMARY | 2025-02-22 19:39 | XMS_ITS | Encounter Summary ---
Author Organization [employer] Address [address] [place] [address] 7 [place] [address] Care Team Providers Care Lease Picker Name Role Phone Cyn Bosch MD Primary Care Provider Michelle tnedith [facility] Primary Care Provider [phone] Emy Askew MD Primary Care Pro vider Encounter Details Date Type Department Care Team (Latest Contact Info) Description 09/30/2018 Abstract [facility] CONVERSIONS Dental, [...] Visit [facility] OPTOMETRY [address] [place] [address] Rachel Collado, OD [address] [place] [address] 05/06/2025 10:15 AM EST Office Visit [facility] MEDICINE [address] [place] [address] Emy Askew MD [address] [place] [address] documented as of this encounter Visit Diagnoses Not on filedocumented in this encounter Care Teams Lease Picker Relationship Specialty Start Date End Date Cyn Bosch MD PCP - General Family Medicine 08/20/19 01/21/22 [facility] JULIO CÉSAR Zambrano [address] [place] [phone] PCP - General Family Medicine 01/22/22 07/24/22 Emy Askew MD [address] [place] [address] PCP - General Internal Medicine 07/25/22 documented as of this encounter
--- OUTSIDE RECORDS SUMMARY | 2025-02-22 19:39 | XMS_ITS | Encounter Summary ---
Author Organization [employer] Address [address] [place] [address] [address] [place] [address] Care Team Providers Care Certified Legal Secretary Specialist Name Role Phone Emy Askew MD Primary Care Pro vider Reason for Visit * Reason Comments Med Refill Encounter Details Date Type Department Care Team ([facility] st Contact Info) Description 02/18/2025 Refill [facility] MEDICINE [address] [place] [address] Emy Askew MD [address] [place] [address] Benign essential hypertension Social History Tobacco Use [...] Description 03/19/2025 9:30 AM EST Office Visit [facility] OPTOMETRY [address] [place] [address] Rachel Collado, OD [address] [place] [address] 05/06/2025 10:15 AM EST Office Visit [facility] MEDICINE [address] [place] [address] Emy Askew MD [address] [place] [address] documented as of this encounter Goals Goal Patient Goal Type Associated Problems Recent Progress Patient-Stated? Author Help patients manage their type 2 diabetes Care Plan Help patients manage their type 2 diabetes Leonor [place] Weekly blood pressure task Care Plan Weekly blood pressure task No Leoonr Horton Help patients manage their type 2 diabetes Care Plan Help patients manage their type 2 diabetes Leonor [place] Patient has chronic kidney disease Care Plan [...] chronic kidney disease No Jessica Valenzuela [place] documented as of this encounter Visit Diagnoses Diagnosis Benign essential hypertension Essential hypertension, benign documented in this encounter Additional Health Concerns Active Problems Noted Date [...] 02/11/2025 Patient has chronic kidney disease 02/11/2025 Assessment Noted Time PHQ-9 Depression Total Score: 15 11/24/ 025 10:41 AM EDT documented as of this encounter Care Teams Certified Legal Secretary Specialist Relationship Specialty Start Date End Date Emy Askew MD [address] [place] [phone] PCP - General Internal Medicine 07/25/22 documented as of this encounter
--- OUTSIDE RECORDS SUMMARY | 2025-02-22 19:39 | XMS_ITS | Encounter Summary ---
Author Organization [email or web address] Address [address] [place] [address] 7 [place] [address] Care Team Providers Care City Surveyor Name Role Phone Emy Askew MD Primary Care Pro vider Reason for Visit * Reason Comments Med Refill Encounter Details Date Type Department Care Team ([facility] st Contact Info) Description 02/09/2023 Refill [facility] MEDICINE [address] [place] [address] Emy Askew MD [address] [place] [address] Social History Tobacco Use Types Packs/Day Years [...] 9:30 AM EST Office Visit [facility] OPTOMETRY [address] [place], [place] [id number] Tobias, Rachel, OD [address] [place] [address] 05/06/2025 10:15 AM EST Office Visit [facility] MEDICINE [address] [place] [address] Emy Askew MD [address] [place] [address] documented as of this encounter Visit Diagnoses Not on filedocumented in this encounter Additional Health Concerns Assessment Noted Time PHQ-9 Depression Total Score: 16 023 10:16 AM EDT documented as of this encounter Care Teams City Surveyor Relationship Specialty Start Date End Date Emy Askew MD [address] [place] [address] PCP - General Internal Medicine 07/25/22 documented as of this encounter
--- OUTSIDE RECORDS SUMMARY | 2025-02-22 19:39 | XMS_ITS | Encounter Summary ---
Author Organization [employer] Address [address] [place] [address] [address] [place] [address] Care Team Providers Care Brim Curler Name Role Phone Cyn Bosch MD Primary Care Provider Michelle wyedith [facility] Primary Care Provider [phone] Emy Askew MD Primary Care Pro vider Encounter Details Date Type Department Care Team (Latest Contact Info) Description 10/26/2021 Abstract [facility] CONVERSIONS Dental, Provider, DDS Social History Tobacco [...] Description 03/19/2025 9:30 AM EST Office Visit [facility] OPTOMETRY [address] [place] [address] Rachel Collado, OD [address] [place] [address] 05/06/2025 10:15 AM EST Office Visit [facility] MEDICINE [address] [place] [address] Emy Askew MD [address] [place] [address] documented as of this encounter Visit Diagnoses Not on filedocumented in this encounter Care Teams Brim Curler Relationship Specialty Start Date End Date Cyn Bosch MD PCP - General Family Medicine 08/20/19 01/21/22 [place] [address] [place] [id number] PCP - General Family Medicine 01/22/22 07/24/22 Emy Askew MD [address] [place] [id number] PCP - General Internal Medicine 07/25/22 documented as of this encounter
[2025-02-22 19:43] LABS: MANUAL DIFF FLAG NO
[2025-02-22 19:46] LABS: Hematocrit 42.2 % (37.0-47.0); Hemoglobin 14.0 g/dl (12.0-16.0); Imm Gran Abs Auto 0.05 X10*3/uL (0.00-0.03); Imm Gran Pct Auto 0.5 % (0.0-0.4); Lymphocytes Absolute Auto 3.5 X10*3/uL (1.2-4.9); Mean Corpuscular HGB Conc 33.2 g/dl (31.0-35.0); Mean Corpuscular Hemoglobin 28.9 pg (27.0-33.0); Mean Corpuscular Volume 87.0 fL (80.0-98.0); NRBC Abs Auto 0.000 X10*3/uL (0.0-0.012); NRBC Pct Auto 0.0 /100WBC (0.0-0.2); Platelet Count 285 X10*3/uL (160-400); Red Blood Count 4.85 X10*6/uL (4.20-5.50); White Blood Count 10.0 X10*3/uL (4.8-10.8)
[2025-02-22 20:00] LABS: Alanine Aminotransferase 18 U/L (0-31); Albumin Level 4.2 g/dL (3.5-5.0); Alkaline Phosphatase 150 U/L (39-117); Anion Gap 16 (12-20); Aspartate Amino Transferase 23 U/L (5-31); Blood Urea Nitrogen 15 mg/dL (9-16); Calcium 9.6 mg/dL (8.4-10.2); Carbon Dioxide 25 mmol/L (22-29); Chloride 105 mmol/L (96-108); Creatinine Clr Calc Pharmacy 63.9; Estimated Glomerular Filt Rate > 60; Potassium 3.6 mmol/L (3.3-5.1); Sodium 142 mmol/L (135-145); Total Protein 7.9 g/dL (6.5-8.0)
[2025-02-22 20:06] LABS: NT Pro B Type Natriuretic Pept 75.1 pg/mL (<300)
[2025-02-22 20:07] LABS: Troponin-I High Sensitivity < 2.7 ng/L (<3.5-17.0)
[2025-02-22 23:44] LABS: Troponin-I High Sensitivity < 2.7 ng/L (<3.5-17.0)
[2025-02-23 00:32] VITALS: BP 125/74; PULSE 85; RESP 16; TEMP 37; O2SAT 93
[2025-02-23 01:28] VITALS: BP 126/80; PULSE 85; RESP 16; TEMP 36.8; O2SAT 96
[2025-02-23 01:33] VITALS: BP 126/80; PULSE 85; RESP 16; TEMP 36.8; O2SAT 96
== END 2025-02-23 01:33 | disposition home or self-care (01) ==
PROVIDERS: Physician Assistant; Emergency Provider Emergency Medicine; PCP Student in an Organized Health Care Education/Training Program
DX: R07.89 Other chest pain (principal); R06.02 Shortness of breath; Z79.899 Other long term (current) drug therapy
CPT/HCPCS: 36415; 71046; 80053; 83880; 84484; 85025; 93005; 96374; 99284; 99285; J1885

== ENCOUNTER → 2025-02-22 18:43 | Outpatient (BNV) | payer OTHER, SELFPAY | PROVIDERS: Emergency Provider Emergency Medicine; PCP Student in an Organized Health Care Education/Training Program; Visit Provider Internal Medicine Cardiovascular Disease | DX: R94.31 Abnormal electrocardiogram [ECG] [EKG] (principal); R07.9 Chest pain, unspecified | CPT/HCPCS: 93010 ==

== ENCOUNTER → 2025-02-22 19:09 | Outpatient (BNV) | payer OTHER, SELFPAY | PROVIDERS: PCP Student in an Organized Health Care Education/Training Program; Visit Provider Specialist | DX: R07.9 Chest pain, unspecified (principal) | CPT/HCPCS: 71046 ==